=== PATIENT | male | born 1970 | race African-American/Black ===

== ENCOUNTER → 2017-01-20 | Day surgery (SDC) | payer OTHER ==
[~2017-01-20] VITALS: Ht 152.4 cm; Wt 77.1 kg
[~2017-01-20] MED LIST: BUPIVACAINE/EPINEPHRINE 0.5% PF 30 ML VIAL ONE; CHLORHEXIDINE GLUCONATE 2 % 1 PACK (2 CLOTHS) TOPICAL PRN; CINA30 PO; HEPARIN SODIUM - IV 10,000 UNITS/10 ML VIAL ONE; HYDR-3583 PO; INSULIN HUMAN REGULAR 1,000 UNITS/10 ML VIAL SQ PRN; LACTATED RINGER'S 1000 ML IV PRN; METOPROLOL TARTRATE 25 MG TAB PO PRN; PANT20 PO; POVIDONE IODINE 5% (ANTISEPSIS KIT) 4 APPLICATIONS EACH NARE PRN; SEVE800T PO; SODIUM CHLORID 0.9% 500 ML IV PRN; VANC1000P IV; WARF-20 PO; WARF-23 PO; XANA1TAB2 PO
[2017-01-20 10:00] VITALS: BP 105/59; PULSE 61; RESP 18; TEMP 98; O2SAT 98
[2017-01-20 10:15] LABS: BASOPHIL # 0.1 TH/MM3 (0-0.2); BASOPHIL % 1.4 % (0.0-2.0); EOSINOPHIL # 0.1 TH/MM3 (0-0.4); EOSINOPHIL % 1.3 % (0.0-4.0); HEMATOCRIT 50.9 % (39.0-51.0); LYMPH % 14.7 % (9.0-44.0); LYMPHOCYTE # 0.6 TH/MM3 (1.0-4.8); MEAN CELL VOLUME 96.5 FL (80.0-100.0); MEAN CORPUSCULAR HEMOGLOBIN 30.8 PG (27.0-34.0); MONO % 14.5 % (0.0-8.0); NEUT % 68.1 % (16.0-70.0); PLATELET COUNT 92 TH/MM3 (150-450); RED BLOOD COUNT 5.28 MIL/MM3 (4.50-5.90); WHITE BLOOD COUNT 4.4 TH/MM3 (4.0-11.0)
[2017-01-20 10:18] LABS: HEMO FLAGS AUTO DIFF
[2017-01-20 10:25] LABS: PROTHROMBIN TIME - PATIENT 22.6 SEC (9.8-11.6)
[2017-01-20 10:47] LABS: CORRECTED NUCLEATED RBC 1 /100 WBC (0-0); EOSINOPHILS 1 % (0-4); MYELOCYTES 1 % (0-0); POLYS (SEG NEUTROPHILS) 68 % (16-70); WBC DIFF SAMPLE 100
[2017-01-20 10:48] LABS: PLATELET ESTIMATE SMEAR LOW (NORMAL); PLATELET MORPHOLOGY NORMAL (NORMAL); SCAN/DIFF FINAL DIFF MANUAL
[2017-01-20 10:55] LABS: BICARBONATE 27.3 MEQ/L (21.0-32.0); POTASSIUM 4.1 MEQ/L (3.5-5.1)
--- NOTE | 2017-01-21 07:05 | EKG ---
Date Performed: 01/20/2017 Time Performed: 10:04:16 PTAGE: 46 years EKG: SINUS BRADYCARDIA BORDERLINE ECG Compared to PREVIOUS TRACING , the sinus rate is slower. PREVIOUS TRACIN07/07/2016 12.10 DOCTOR: Liam Rush Interpretating Date/Time 01/21/2017 07:04:42
== END | disposition home or self-care (01) ==
LOC: HSDC 09:14
PROVIDERS: ATTEND Surgery
DX: Z49.01 Encounter for fitting and adjustment of extracorporeal dialysis catheter (principal); Z53.8 Procedure and treatment not carried out for other reasons; R94.31 Abnormal electrocardiogram [ECG] [EKG]; Z79.01 Long term (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 of anticoagulants
CPT/HCPCS: 80048; 85007; 85027; 85610; 93005; 99211; J7040; G0463; J1642; J1644; J3010

== ENCOUNTER → 2017-02-08 | Day surgery (SDC) | payer OTHER ==
[~2017-02-08] VITALS: Ht 152.4 cm; Wt 77.0 kg
[~2017-02-08] MED LIST changes: +BUPIVACAINE HCL PF 0.5% 30 ML VIAL ONE; -BUPIVACAINE/EPINEPHRINE 0.5% PF 30 ML VIAL ONE; +DO NOT ADM ANY ANTICOAGULANT DRUGS PRN; +FAMOTIDINE 20 MG/2 ML VIAL ONE; +ONDANSETRON HCL 4 MG/2 ML VIAL IV PUSH ONE; +PHENYLEPH/NS 1000 MCG/10 ML SYR IV ONE; -POVIDONE IODINE 5% (ANTISEPSIS KIT) 4 APPLICATIONS EACH NARE PRN; +PROPOFOL 200 MG/20 ML AMP IV ONE; +PROTAMINE SULFATE 50 MG/5 ML VIAL ONE; +THROMBIN (TOPICAL) 20,000 UNIT SPRAY KIT ONE; +VANCOMYCIN HCL 1000 MG VIAL ONE; +ceFAZolin 1 GM ADDVANTAGE VIAL IV ONE; +ePHEDrine/NS 25 MG/5 ML SYR IV ONE; +fentaNYL CITRATE 250 MCG/5 ML AMP ONE
[2017-02-08 07:10] VITALS: BP_SYST 81; BP_SYST 89; BP_DIAS 57; BP_DIAS 58; PULSE 70; RESP 18; TEMP 97.7; O2SAT 92
[2017-02-08 07:32] LABS: AUTOMATED NEUTROPHIL # 3.3 TH/MM3 (1.8-7.7); BASOPHIL % 0.8 % (0.0-2.0); EOSINOPHIL # 0.1 TH/MM3 (0-0.4); EOSINOPHIL % 1.5 % (0.0-4.0); HEMATOCRIT 53.9 % (39.0-51.0); HEMO FLAGS DIFF FINAL; INTERNATIONAL NORMALIZED RATIO 1.2 RATIO; LYMPHOCYTE # 0.6 TH/MM3 (1.0-4.8); MEAN CELL VOLUME 95.4 FL (80.0-100.0); MEAN CORPUSCULAR HEMOGLOBIN 31.1 PG (27.0-34.0); MEAN CORPUSCULAR HGB CONC 32.6 % (32.0-36.0); MONO % 14.9 % (0.0-8.0); NEUT % 69.8 % (16.0-70.0); PLATELET COUNT 109 TH/MM3 (150-450); PROTHROMBIN TIME - PATIENT 13.3 SEC (9.8-11.6); RED BLOOD COUNT 5.66 MIL/MM3 (4.50-5.90); RED CELL DISTRIBUTION WIDTH 17.7 % (11.6-17.2); WHITE BLOOD COUNT 4.7 TH/MM3 (4.0-11.0)
[2017-02-08 07:50] LABS: BICARBONATE 23.4 MEQ/L (21.0-32.0); POTASSIUM 3.9 MEQ/L (3.5-5.1)
--- NOTE | 2017-02-08 08:24 | HHI.HP ---
History of Present Illness Chief Complaint: ESRD, need for HD access History of Present Illness 46 yo male with ESRD, currently on HD MWF via groin catheter, last HD yesterday. H/O L UE AVF, failed. Presents for new access Past/Family/Social History Past Medical History "hypercoagulable state" unclear etiology - on coumadin but stopped sev days ago and INR 1.3 ESRD HTN CVOD w/ CVA years ago Past Surgical History B LE amputations L UE access R forearm debridement - sequelae of "hypercoag" Social History HD MWF Family History no ESRD Home Medications Reported Medications Cinacalcet (Sensipar)30 Mg Tab30 Mg PO DAILY #30 TAB Ref 0 01/19/17 Warfarin 5 Mg Tab5 Mg PO DAILY #30 TAB Ref 0 12/29/16 Alprazolam (Xanax)1 Mg Tab1 Mg PO Q8H PRN (ANXIETY) Ref 0 12/29/16 Hydrocodone-Acetaminophen 10-325 mg Tab1 Tab PO Q4H PRN (PAIN) Ref 0 12/29/16 Pantoprazole (Protonix)20 Mg Tab20 Mg PO DAILY #30 TAB Ref 0 12/29/16 Sevelamer HCl (Renagel)800 Mg Tab1,600 Mg PO TID #180 TAB Ref 0 12/29/16 Coded Allergies: Iodine (Verified Allergy, Severe, blisters, 01/20/17) Morphine (Verified Allergy, Severe, Itching, 12/29/16) *MDRO Multi-Drug Resistant Organism (Verified Adverse Reaction, Unknown, ) MRSA (sputum) - 01/2008 MRSA PCR Screen NEGAVTIVE- 09/10/16 & 09/14/16 Cleared per Infection Control Review of Systems Constitutional: DENIES: Fever, Chills Cardiovascular: COMPLAINS OF: Dyspnea on Exertion, PND, DENIES: Chest pain Physical Exam Vitals/I&O Date Time Temp Pulse Resp B/P Pulse Ox O2 Delivery O2 Flow Rate FiO2 02/08/17 07:10 97.7 70 18 81/58 92 89/57 Neuro: alert, oriented, no focal deficits HEENT: NC/AT Neck: no JVD Heart: reg rate Lungs: clear and unlabored Vascular: palpable R UE pulses Extremities: R UE forearm skin contracture, but AC ok and no decreased ROM Laboratory Tests Test 02/08/17 07:10 White Blood Count 4.7 Red Blood Count 5.66 Hemoglobin 17.6 Hematocrit 53.9 Mean Corpuscular Volume 95.4 Mean Corpuscular Hemoglobin 31.1 Mean Corpuscular Hemoglobin 32.6 Concent Red Cell Distribution Width 17.7 Platelet Count 109 Mean Platelet Volume 9.0 Neutrophils (%) (Auto) 69.8 Lymphocytes (%) (Auto) 13.0 Monocytes (%) (Auto) 14.9 Eosinophils (%) (Auto) 1.5 Basophils (%) (Auto) 0.8 Neutrophils # (Auto) 3.3 Lymphocytes # (Auto) 0.6 Monocytes # (Auto) 0.7 Eosinophils # (Auto) 0.1 Basophils # (Auto) 0.0 CBC Comment DIFF FINAL Differential Comment Prothrombin Time 13.3 Prothromb Time International 1.2 Ratio Sodium Level 133 Potassium Level 3.9 Chloride Level 97 Carbon Dioxide Level 23.4 Anion Gap 13 Blood Urea Nitrogen 63 Creatinine 15.81 Estimat Glomerular Filtration 4 Rate Random Glucose 79 Calcium Level 9.1 Blood Type B POSITIVE Antibody Screen NEGATIVE Blood Bank Comment Assessment and Plan Plan R BC AVF D/C post AVF today Discharge Planning plan outpatient surgery and RTC 2 weeks for fistula check Chon Plascencia MD February 08, 2017 08:24
--- NOTE | 2017-02-08 10:11 | HHI.PR ---
Immediate Post Op Note Procedure Date: February 08, 2017 Pre Op Diagnosis: ESRD, need for HD Access Post Op Diagnosis: ESRD, need for HD access Surgeon: Chon Plascencia Dining Chair Seat Cushion Trimmer(s): none Procedure: RIGHT brachiocephalic AVF Findings: 3mm vein, 3mm artery decent audible thrill at end of case Additional Information: + Doppler signal at wrist Complications: none apparent Specimen(s) removed: none Estimated blood loss: 20mL Anesthesia: LMA Drains: None Fluids: 300mL IVF Patient to: PACU Date/Time of Procedure: SEE SURGICAL CARE RECORD Chon Plascencia MD February 08, 2017 10:11
[2017-02-08 12:25] VITALS: BP 77/54; PULSE 69; RESP 16; TEMP 96.2; O2SAT 98
--- NOTE | 2017-02-08 12:38 | MP ---
cc: LATHA PLASCENCIA MD DATE OF SURGERY 02/08/2017 PREOPERATIVE DIAGNOSIS End-stage renal disease, needs dialysis access POSTOPERATIVE DIAGNOSIS End-stage renal disease, needs dialysis access PROCEDURE Right brachiocephalic arteriovenous fistula ATTENDING SURGEON Latha Plascencia MD ANESTHESIA General INDICATIONS Mr. Mercado is an 46 year-old gentleman who has end-stage renal disease currently dialyzing through a left groin catheter. He has a failed left upper extremity access and known central vein occlusion. Preoperative imaging assessed he had adequate right cephalic vein and a discussion was held with the patient and his belt worker and we agreed that a right brachiocephalic autogenous access was the next best option. DESCRIPTION OF PROCEDURE Informed consent was obtained from the patient. He was taken to the operating room, placed supine on the operating room table. An appropriate time out was taken to ensure the patient's operative site and planned procedure. A gram of Ancef was initiated prior to the skin incision and will be discontinued after a single preoperative dose. Everyone in the room agreed with time out and we proceeded. His right arm was prepped and draped and the antecubital incision was made with a 10 blade, carried down through the subcutaneous tissue with electrocautery. The cephalic vein was identified and dissected free for several centimeters. The brachial artery was identified over the medial aspect of the incision. The patient was systemically heparinized with 3000 units of IV heparin. The distal aspect of the cephalic vein was clamped with a right angle, the vein was transected and the distal end was oversewn with 3-0 silk. A Perez bulldog was placed in the proximal aspect of the vein. Proximal and distal control of the brachial artery was obtained with Profunda clamps and a longitudinal arteriotomy was made with an 11 blade, extended with Bancroft scissors, the vein was spatulated and sewn end-to-side with running 6-0 Prolene suture. At the completion, it was flushed, noted to be hemostatic. There was a nice thrill in the fistula and a Doppler signal in the wrist. Heparin was reversed with Protamine. The wound was infiltrated with Marcaine and closed with 2-0 Polysorb, 3-0 Polysorb and 4-0 Monocryl. The sponge and needle counts were correct at the end of the case. I was present and scrubbed for the entire procedure. MD DEVEN Bentley/RUDOLPH /10:15 AM /12:30 PM
== END | disposition home or self-care (01) ==
LOC: HSDC 06:08
PROVIDERS: ATTEND Surgery
DX: I12.0 Hypertensive chronic kidney disease with stage 5 chronic kidney disease or end stage renal disease (principal); N18.6 End stage renal disease; Z86.73 Personal history of transient ischemic attack (TIA), and cerebral infarction without residual deficits; Z79.01 Long term (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 of anticoagulants; Z01.818 Encounter for other preprocedural examination
CPT/HCPCS: 01844; 36821; 80048; 85025; 85610; 86850; 86900; 86901; J0690; J1644; J2370; J2405; J2720; J3010; J3370

== ENCOUNTER 2017-03-16 15:19 | Inpatient (IN) | payer MEDICAID, OTHER ==
[~2017-03-16] VITALS: Ht 134.6 cm; Wt 76.0 kg
[~2017-03-16 15:19] MED LIST changes: -BUPIVACAINE HCL PF 0.5% 30 ML VIAL ONE; -CHLORHEXIDINE GLUCONATE 2 % 1 PACK (2 CLOTHS) TOPICAL PRN; -DO NOT ADM ANY ANTICOAGULANT DRUGS PRN; -FAMOTIDINE 20 MG/2 ML VIAL ONE; -HEPARIN SODIUM - IV 10,000 UNITS/10 ML VIAL ONE; -INSULIN HUMAN REGULAR 1,000 UNITS/10 ML VIAL SQ PRN; -LACTATED RINGER'S 1000 ML IV PRN; -METOPROLOL TARTRATE 25 MG TAB PO PRN; -ONDANSETRON HCL 4 MG/2 ML VIAL IV PUSH ONE; -PHENYLEPH/NS 1000 MCG/10 ML SYR IV ONE; -PROPOFOL 200 MG/20 ML AMP IV ONE; -PROTAMINE SULFATE 50 MG/5 ML VIAL ONE; -SODIUM CHLORID 0.9% 500 ML IV PRN; -THROMBIN (TOPICAL) 20,000 UNIT SPRAY KIT ONE; -VANC1000P IV; -VANCOMYCIN HCL 1000 MG VIAL ONE; -WARF-20 PO; -ceFAZolin 1 GM ADDVANTAGE VIAL IV ONE; -ePHEDrine/NS 25 MG/5 ML SYR IV ONE; -fentaNYL CITRATE 250 MCG/5 ML AMP ONE
[2017-03-16 15:30] VITALS: BP 96/56; PULSE 64; RESP 18; TEMP 97.4; O2SAT 96
[2017-03-16] MEDS ORDERED: ONDANSETRON HCL 4 MG/2 ML VIAL IVP PRN (16:00)
[2017-03-16] MEDS ORDERED: RESP: ALBUTEROL 2.5 MG/IPRATROPIUM 0.5 MG NEB (PRN) NEB (16:00)
[2017-03-16] MEDS ORDERED: NALOXONE HCL 0.4 MG/ML AMP IV PRN (16:00)
[2017-03-16] MEDS ORDERED: ENALAPRILAT 1.25 MG/ML VIAL IV PUSH PRN (16:00)
[2017-03-16] MEDS ORDERED: ACETAMINOPHEN 325 MG TAB PO PRN ×2 (16:00)
[2017-03-16] MEDS ORDERED: SODIUM CHLORIDE 0.9% FLUSH 10 ML FLUSH IV FLUSH PRN (16:00)
--- NOTE | 2017-03-16 16:01 | HHI.HP ---
[facility] Primary Care Physician TONYA Salazar Admission Diagnosis Diagnoses: (1) Cellulitis of arm, right (2) End-stage renal disease on hemodialysis (3) Hypotension Chief Complaint: Cellulitis at right AV fistula site Travel History International Travel<30 Days: No Contact w/Intl Traveler <30 Da: No Traveled to Known Affected Are: No History of Present Illness 26-year-old male with a history of end-stage renal disease on hemodialysis was seen by his doctor for evaluation of right AV fistula sites redness, pus and possible cellulitis and abscess. Patient is status post right AV fistula placement 02/08/17, and states over the past 7-10 days he is noticed an opening At the site with some pus production however denies any febrile episode or chills. Review of Systems Except as stated in HPI: all other systems reviewed are Neg Past Family Social History Past Medical History End-stage renal disease on HD Questionable lupus erythematosus Coronary disease History of hypotension Questionable COPD/asthma Clotting disorder Past Surgical History Bilateral BKA Cardiac stent Dialysis graft Digit resection of the right hand Reported Medications Coumadin 4 mg daily Allergies: Coded Allergies: Iodine (Verified Allergy, Severe, blisters, 01/20/17) Morphine (Verified Allergy, Severe, Itching, 12/29/16) *MDRO Multi-Drug Resistant Organism (Verified Adverse Reaction, Unknown, ) MRSA (sputum) - 01/2008 MRSA PCR Screen NEGAVTIVE- 09/10/16 & 09/14/16 Cleared per Infection Control Family History Hypertension Social History Remote tobacco use 10 years ago Denies EtOH or illicit drug use Physical Exam Physical Exam GENERAL: This is a well-nourished, well-developed patient, in no apparent distress. SKIN: No rashes, ecchymoses or lesions. Cool and dry. right AFV site with some erythema, pus HEAD: Atraumatic. Normocephalic. No temporal or scalp tenderness. EYES: Pupils equal round and reactive. Extraocular motions intact. No scleral icterus. No injection or drainage. ENT: Nose without bleeding, purulent drainage or septal hematoma. Throat without erythema, tonsillar hypertrophy or exudate. Uvula midline. Airway patent. NECK: Trachea midline. No JVD or lymphadenopathy. Supple, nontender, no meningeal signs. CARDIOVASCULAR: Regular rate and rhythm without murmurs, gallops, or rubs. RESPIRATORY: Clear to auscultation. Breath sounds equal bilaterally. No wheezes , rales, or rhonchi. GASTROINTESTINAL: Abdomen soft, non-tender, nondistended. No hepato-splenomegaly , or palpable masses. No guarding. MUSCULOSKELETAL: . B -BKAs NEUROLOGICAL: Awake and alert. Cranial nerves II through XII intact. Motor and sensory grossly within normal limits. Five out of 5 muscle strength in all muscle groups. Normal speech. Assessment and Plan Problem List: (1) Cellulitis of arm, right ICD Code: L03.113 Status: Acute (2) AVF (arteriovenous fistula) ICD Code: I77.0 Status: Acute (3) Hypotension ICD Code: I95.9 Status: Acute (4) End-stage renal disease on hemodialysis ICD Code: N18.6 Status: Acute Assessment and Plan 46-year-old man with Cellulitis at AV fistula site Check blood culture 2, wound culture, CBC and BMP as well as CRP and SED Start vancomycin IV 1 g every 24 as well as Fortaz 1gm IV Q24hr Consult infectious disease specialist. Case was discussed with Dr. Patel Consult vascular surgery Check chest x-ray End-stage renal disease on hemodialysis Consult nephrology, Dr. Juan Manuel Merlos Resume Renvela and monitor Bun/Cr History of bilateral lower extremities DVT Resume Coumadin and monitor INR/PT History of hypotension Consider midodrine DVT prophylaxis: Coumadin Code Status Full code Discussed Condition With Patient Physician Certification 2 Midnight Certification Type: Admission for Inpatient Services Order for Inpatient Services The services are ordered in accordance with Medicare regulations or non- Medicare payer requirements, as applicable. In the case of services not specified as inpatient-only, they are appropriately provided as inpatient services in accordance with the 2-midnight benchmark. Estimated LOS (days): 2 days is the estimated time the patient will need to remain in the hospital, assuming treatment plan goals are met and no additional complications. Post-Hospital Plan: Not yet determined Devyn Kennedy MD Mar 16, 2017 16:01
[2017-03-16] MEDS ORDERED: WARF-20 PO (16:12)
[2017-03-16] MEDS ORDERED: Vancomycin Consult Pharmacy 1 EA OTHER SCH (16:30)
[2017-03-16] MEDS ORDERED: VANCOMYCIN INJ 1,000 MG in SODIUM CHLOR 0.9% 250 ML INJ 250 ML IV ONE (18:00)
[2017-03-16] MEDS ORDERED: cefTAZidime INJ 1,000 MG in SODIUM CHLORIDE 0.9% INJ 100 ML IV SCH (18:00)
[2017-03-16 18:24] LABS: AUTOMATED NEUTROPHIL # 3.6 TH/MM3 (1.8-7.7); BASOPHIL % 0.5 % (0.0-2.0); EOSINOPHIL # 0.1 TH/MM3 (0-0.4); EOSINOPHIL % 2.2 % (0.0-4.0); HEMATOCRIT 50.9 % (39.0-51.0); LYMPH % 9.8 % (9.0-44.0); LYMPHOCYTE # 0.4 TH/MM3 (1.0-4.8); MEAN CELL VOLUME 96.4 FL (80.0-100.0); MEAN CORPUSCULAR HEMOGLOBIN 32.2 PG (27.0-34.0); MEAN CORPUSCULAR HGB CONC 33.4 % (32.0-36.0); MONO % 7.8 % (0.0-8.0); NEUT % 79.7 % (16.0-70.0); PLATELET COUNT 87 TH/MM3 (150-450); RED BLOOD COUNT 5.27 MIL/MM3 (4.50-5.90); RED CELL DISTRIBUTION WIDTH 18.2 % (11.6-17.2); WHITE BLOOD COUNT 4.5 TH/MM3 (4.0-11.0)
[2017-03-16 18:30] LABS: HEMO FLAGS AUTO DIFF
--- NOTE | 2017-03-16 18:38 | RADRPT ---
EXAM DATE/TIME: 03/16/2017 17:51 [facility] COMPARISON: CHEST SINGLE AP, September 10, 2016, 13:04. INDICATIONS : Short of breath. MEDICAL HISTORY : Myocardial infarction. SURGICAL HISTORY : None. ENCOUNTER: Subsequent ACUITY: 2 days PAIN SCORE: 9/10 LOCATION: Right Elbow area. FINDINGS: A single view of the chest demonstrates the lungs to be symmetrically aerated without evidence of mas s, new confluent infiltrate or effusion. Chronic scarring and interstitial changes remain at the lung bases. The central venous catheter remains with the tip projected over the right atrium. The cardiom ediastinal contours are unremarkable. Osseous structures are intact. CONCLUSION: Stable appearance with chronic scarring and interstitial change. Amador Escobar MD on March 16, 2017 at 18:36 Board Certified Radiologist. This report was verified electronically.
[2017-03-16 18:47] LABS: BICARBONATE 31.5 MEQ/L (21.0-32.0); POTASSIUM 3.9 MEQ/L (3.5-5.1)
[2017-03-16 19:00] LABS: INTERNATIONAL NORMALIZED RATIO 1.3 RATIO; PROTHROMBIN TIME - PATIENT 14.3 SEC (9.8-11.6)
[2017-03-16 20:00] VITALS: BP 100/56; PULSE 73; RESP 18; TEMP 97.3; O2SAT 93
[2017-03-16] MEDS: SODIUM CHLORIDE 0.9% FLUSH 10 ML FLUSH IV FLUSH SCH (20:23)
[2017-03-16 20:57] LABS: PLATELET ESTIMATE SMEAR LOW (NORMAL); PLATELET MORPHOLOGY ENLARGED (NORMAL); SCAN/DIFF AUTO DIFF CONFIRMED
[2017-03-17] VITALS: BP 98/62; PULSE 69; RESP 16; TEMP 97.6; O2SAT 95
[2017-03-17 04:00] VITALS: BP 94/58; PULSE 63; RESP 16; TEMP 97.5; O2SAT 95
--- NOTE | 2017-03-17 07:23 | PD.VS.PN ---
Subjective Subjective/Hospital Course Pt adm with RIGHT arm wound No problems overnight. Objective Vitals/I&O Date Time Temp Pulse Resp B/P Pulse Ox O2 Delivery O2 Flow Rate FiO2 03/17/17 04:00 97.5 63 16 94/58 95 03/17/17 00:00 97.6 69 16 98/62 95 03/16/17 20:00 97.3 73 18 100/56 93 03/16/17 15:30 97.4 64 18 96/56 96 Physical Exam R UE with wound dehiscence and no palpable graft beneath. Laboratory Laboratory Tests Test 03/16/17 18:11 White Blood Count 4.5 Red Blood Count 5.27 Hemoglobin 17.0 Hematocrit 50.9 Mean Corpuscular Volume 96.4 Mean Corpuscular Hemoglobin 32.2 Mean Corpuscular Hemoglobin 33.4 Concent Red Cell Distribution Width 18.2 Platelet Count 87 Mean Platelet Volume 8.9 Neutrophils (%) (Auto) 79.7 Lymphocytes (%) (Auto) 9.8 Monocytes (%) (Auto) 7.8 Eosinophils (%) (Auto) 2.2 Basophils (%) (Auto) 0.5 Neutrophils # (Auto) 3.6 Lymphocytes # (Auto) 0.4 Monocytes # (Auto) 0.4 Eosinophils # (Auto) 0.1 Basophils # (Auto) 0.0 CBC Comment AUTO DIFF Differential Comment AUTO DIFF CONFIRMED Platelet Estimate LOW Platelet Morphology Comment ENLARGED Erythrocyte Sedimentation Rate 1 Prothrombin Time 14.3 Prothromb Time International 1.3 Ratio Sodium Level 138 Potassium Level 3.9 Chloride Level 99 Carbon Dioxide Level 31.5 Anion Gap 8 Blood Urea Nitrogen 48 Creatinine 12.01 Estimat Glomerular Filtration 6 Rate Random Glucose 81 Lactic Acid Level 1.9 Calcium Level 8.8 C-Reactive Protein 0.95 Date/Time Procedure Status Source Growth 03/16/17 18:05 Aerobic Blood Culture Received Blood Peripheral Pending 03/16/17 18:05 Anaerobic Blood Culture Received Blood Peripheral Pending 03/16/17 16:45 Gram Stain Received Wound Hand Pending 03/16/17 16:45 Wound Culture Received Wound Hand Pending Imaging Last 48 hours Impressions Chest X-Ray 03/16/17 0000 Signed Impressions: Service Date/Time: Thursday, March 16, 2017 17:51 - CONCLUSION: Stable appearance with chronic scarring and interstitial change. Amador Escobar MD Assessment and Plan Plan Will ask wound care to place vac, wicking into wound. continue antibiotics Chon Plascencia MD Mar 17, 2017 07:23
[2017-03-17 07:57] LABS: INTERNATIONAL NORMALIZED RATIO 1.3 RATIO; PROTHROMBIN TIME - PATIENT 15.1 SEC (9.8-11.6)
[2017-03-17 08:00] VITALS: BP 91/66; PULSE 93; RESP 20; TEMP 97.2; O2SAT 93
[2017-03-17 08:17] LABS: ALKALINE PHOSPHATASE 63 U/L (45-117); ALT (GPT) 15 U/L (12-78); ANION GAP 13 MEQ/L (5-15); AST (GOT) 16 U/L (15-37); BICARBONATE 23.6 MEQ/L (21.0-32.0); BLOOD UREA NITROGEN 64 MG/DL (7-18); CHLORIDE 100 MEQ/L (98-107); GLOMERULAR FILTRATION RATE 5 ML/MIN (>89); POTASSIUM 4.7 MEQ/L (3.5-5.1); SODIUM (NA) 137 MEQ/L (136-145); TOTAL BILIRUBIN ADULT 0.3 MG/DL (0.2-1.0)
[2017-03-17] MEDS ORDERED: WARFARIN SOD 4 MG TAB PO SCH (09:00)
--- NOTE | 2017-03-17 09:26 | HHI.PR ---
Subjective Remarks Follow-up open wound/cellulitis at site of right AV graft 03/17/17-patient seen and examined, currently afebrile and denies any pain to the right AV sites wound. No acute event overnight Objective Vitals Vital Signs Date Time Temp Pulse Resp B/P Pulse Ox O2 Delivery O2 Flow Rate FiO2 03/17/17 08:00 97.2 93 20 91/66 93 03/17/17 04:00 97.5 63 16 94/58 95 03/17/17 00:00 97.6 69 16 98/62 95 03/16/17 20:00 97.3 73 18 100/56 93 03/16/17 15:30 97.4 64 18 96/56 96 I/O 03/16/17 03/16/17 03/16/17 03/17/17 03/17/17 03/17/17 07:00 15:00 23:00 07:00 15:00 23:00 Intake Total 240 ml Output Total 0 ml Balance 240 ml Intake Oral 240 ml Output Urine Total 0 ml # Bowel Movements 0 Result Diagram: 03/16/17 1811 03/17/17 0641 Imaging Last Impressions Chest X-Ray 03/16/17 0000 Signed Impressions: Service Date/Time: Thursday, March 16, 2017 17:51 - CONCLUSION: Stable appearance with chronic scarring and interstitial change. Amador Escobar MD Objective Remarks GENERAL: NAD SKIN: Warm and dry. HEAD: Normocephalic. EYES: No scleral icterus. No injection or drainage. NECK: Supple, trachea midline. No JVD or lymphadenopathy. CARDIOVASCULAR: Regular rate and rhythm without murmurs, gallops, or rubs. RESPIRATORY: Breath sounds equal bilaterally. No accessory muscle use. GASTROINTESTINAL: Abdomen soft, non-tender, nondistended. MUSCULOSKELETAL: B -BKAs BACK: Nontender without obvious deformity. No CVA tenderness. A/P Problem List: (1) Cellulitis of arm, right ICD Code: L03.113 Status: Acute (2) AVF (arteriovenous fistula) ICD Code: I77.0 Status: Acute (3) Hypotension ICD Code: I95.9 Status: Acute (4) End-stage renal disease on hemodialysis ICD Code: N18.6 Status: Acute Assessment and Plan 46-year-old man with Cellulitis at AV fistula site s/p blood culture 2, wound culture,with elevated CRP and normal SED Currently on vancomycin IV 1 g every 24 as well as Fortaz 1gm IV Q24hr. Likely will continue antibiotics during hemodialysis Consult infectious disease specialist. Case was discussed with Dr. Patel 03/16/17 Appreciate input from vascular surgery End-stage renal disease on hemodialysis Consult nephrology, Dr. Juan Manuel Merlos Continue Renvela and monitor Bun/Cr History of bilateral lower extremities DVT Continue Coumadin and monitor INR/PT History of hypotension Consider midodrine DVT prophylaxis: Coumadin Devyn Kennedy MD Mar 17, 2017 09:26
[2017-03-17] MEDS: PANTOPRAZOLE SOD 20 MG DELAYED RELEASE TAB PO SCH (09:48)
[2017-03-17] MEDS: SEVELAMER CARBONATE 800 MG TAB PO SCH ×3 (09:48→17:45)
[2017-03-17] MEDS: SODIUM CHLORIDE 0.9% FLUSH 10 ML FLUSH IV FLUSH SCH ×2 (09:49→21:43)
[2017-03-17] MEDS: ACETAMINOPHEN/HYDROcodone 325 MG/5 MG TAB PO PRN ×2 (09:52→18:30)
--- NOTE | 2017-03-17 10:14 | MB ---
cc: OLAF BEATTY MD DATE OF CONSULTATION: 03/16/2017 REASON FOR CONSULTATION: End-stage renal disease on hemodialysis for management. HISTORY OF PRESENT ILLNESS This is a 46-year-old male with past medical history of hypertension, peripheral vascular disease with bilateral below-knee amputation, he was sent to the hospital because of possible infection and cellulitis in the right arm at the site of the AV fistula. I was called to see the patient for the management of hemodialysis. The patient has been following with Dr. Merlos and he is on vacation and I am covering for him he has the patient has been on hemodialysis Tuesday, Tuesday and Tuesday. He has this right arm AV fistula surgery done by Dr. Plascencia on February 08 and last 7-10 days the patient noted that there is some discharge yellowish and there is some pain at the site of surgery. He has no history of fever, chills. He went for his regular dialysis and they are he was told to go to the hospital his blood pressure was on the lower side on arrival here his blood pressure was 96/56. The patient denies any headache or dizziness. She has mild pain at the site of the fistula surgery which is better now. The patient has been on hemodialysis of more than 10 years. PAST MEDICAL HISTORY 1. Hypertension 2. Chronic anemia 3. Chronic obstructive pulmonary disease 4. End-stage renal disease on hemodialysis three times per week. 5. Ischemic heart disease 6. Peripheral vascular disease. PAST SURGICAL HISTORY 1. Bilateral below-knee amputation 2. cardiac catheterization with stent placement 3. Right arm AV fistula surgery. 4. Dissection of the right hand digit. REVIEW OF SYSTEMS Denies any history of fever. No headache, dizziness or blurring of vision. The patient has pain and discharged at the site of the AV fistula surgery and associated with pain. There is no shortness of breath. No chest pain, palpitations. No vomiting. No abdominal pain. No history of diarrhea. SOCIAL HISTORY The patient is the patient has past history of smoking. Ten years ago. There is no history of alcoholism Family history is positive for hypertension. ALLERGIES IODINE MORPHINE MEDICATIONS Currently he is on following medications 1. Protonix 20 mg once a day. 2. Coumadin 4 mg daily. 3. Ceftazidime 1 gram q. 24-hour. 4. Renvela 1.6 grams t.i.d. 5. Zofran as needed. 6. Vancomycin one dose was given. 7. [place] as needed. PHYSICAL EXAMINATION: IN GENERAL: On examination the patient is awake, alert. He is not in acute distress. VITAL SIGNS: Blood pressure is 96.56, temperature 97.4, oxygen saturation 96%. HEAD, EYES, EARS, NOSE, AND THROAT: Equally reacting to light. Nonicteric. Conjunctivae normal. NECK: Supple. JVD is not elevated. LUNGS: The patient has bilateral good air entry with occasional wheezing. HEART: Sinus regular rhythm. ABDOMEN: The abdomen is soft and there is no tenderness. EXTREMITIES: He has bilateral below-knee amputation on the right arm has AV fistula at the basilic vein and is covered with a dressing. There is a good bruit. There is no signs of ST in the right hand. INVESTIGATIONS: WBC count is 4.5, hemoglobin 17.0, platelet count of 87, neutrophils 79.7%, sodium 38. Potassium 3.9, chloride 99, bicarb 31.5, BUN 48, creatinine 12.0. C-reactive protein 0.95. Calcium 8.8, glucose 81. Lactic acid is 1.9, INR is 1.3, blood cultures pending and wound culture pending. IMAGING STUDIES The patient has chest x-ray done which shows chronic scarring interstitial changes. ASSESSMENT/PLAN 1. Right arm cellulitis with infection at the site of fistula 2. Rule-out sepsis 3. Hypotension. 4. End-stage renal disease on hemodialysis. 5. History of ischemic heart disease 6. Peripheral vascular disease The patient was given one dose of vancomycin and he is also on ceftazidime IV. We will continue the vancomycin with dialysis and follow the culture results. His next dialysis due is on Tuesday. Currently he is afebrile. Blood pressure is borderline. He is not on any antihypertensive medications. The patient is on warfarin and the INR is 1.3. I will arrange for hemodialysis on Tuesday if he still here the patient he is admitted and I will follow the patient since Dr. Merlos is on vacation. Thank you for the consultation. MD CRISTOFER Goldberg/laura /9:44 PM /9:57 AM
[2017-03-17 12:00] VITALS: BP 121/53; PULSE 64; RESP 20; TEMP 97.5; O2SAT 93
--- NOTE | 2017-03-17 14:31 | PD.WCN.NOT ---
Wound Consult Description: Patient seen on for wound to R upper extremity possible wound VAC placement. Spoke with KIRK Hogan prior to entering patient's room. RN informed jingle writer that patient is not leaving any dressings in place to RUE.Patient noted with no dressing in place to RUE upon entering patient's room. Wound to RUE is small measuring ~0.5x~1x~1 cm in depth.Wound is not VAC appropriate.Wound unable to be completely visualized due to depth and small size of wound opening. Tissue that is visible appears to be red non granulation tissue.Wound has moderate sero-sanguinous drainage. Cleansed wound with normal saline.Loosely packed wound with plain 1/4 inch packing stip and covered with dry 4x4 gauze pads, and ABD pad. Secured dressing with rolled gauze and tape. Communicated with: Spoke with KIRK keys, and Stephie CASTANEDA for Vascular surgery regarding recommendations and findings. Stephie CASTANEDA for Vascular surgery is agreement with recommendations and will write orders. Recommendation: Recommend to cleanse wound to RUE with normal saline and apply plain 1/4 inch packing strip loosely packed into wound bed. Cover wound with Calcium Alginate AG (Maxorb AG) just over wound bed. Secure dressing with dry 4x4 gauze, ABD pad , rolled gauze and tape or stockinette. Please change dressing daily. Radha Torres CRN Mar 17, 2017 14:31
[2017-03-17] MEDS: diphenhydrAMINE HCL 25 MG CAP PO PRN ×2 (15:01→21:43)
[2017-03-17] MEDS ORDERED: SODIUM CHLOR 0.9% 1000 ML INJ 1,000 ML IV PRN ×3 (15:18)
--- NOTE | 2017-03-17 15:18 | HHI.NPPN ---
Subjective General Problems: Anemia, Edema, Hypertension Renal Failure: End Stage Renal Disease History of Present Illness 46-year-old male with past medical history of hypertension, peripheral vascular disease with bilateral below-knee amputation, he was sent to the hospital because of possible infection and cellulitis in the right arm at the site of the AV fistula. I was called to see the patient for the management of hemodialysis. The patient has been following with Dr. Merlos and he is on vacation and I am covering for him he has the patient has been on hemodialysis Tuesday, Tuesday and Tuesday. Additional Remarks Patient is alert, pain in Rt. arm is better, no dizziness. Review of Systems General Constitutional: Fatigue Cardiovascular Cardiac: ODEN Objective Data Data 03/16/17 03/17/17 19:00 07:00 Intake Total 240 ml Output Total 0 ml Balance 240 ml Intake Oral 240 ml Output Urine Total 0 ml # Bowel Movements 0 Vital Signs Date Time Temp Pulse Resp B/P Pulse Ox O2 Delivery O2 Flow Rate FiO2 03/17/17 12:00 97.5 64 20 121/53 93 03/17/17 08:00 97.2 93 20 91/66 93 03/17/17 04:00 97.5 63 16 94/58 95 03/17/17 00:00 97.6 69 16 98/62 95 03/16/17 20:00 97.3 73 18 100/56 93 03/16/17 15:30 97.4 64 18 96/56 96 -: 03/16/17 1811 03/17/17 0641 Microbiology 03/16/17 Aerobic Blood Culture, Received Pending 03/16/17 Anaerobic Blood Culture, Received Pending 03/16/17 Gram Stain - Final, Resulted 03/16/17 Wound Culture - Preliminary, Resulted Group D Enterococcus 03/16/17 Aerobic Blood Culture - Preliminary, Resulted NO GROWTH IN 1 DAY 03/16/17 Anaerobic Blood Culture - Preliminary, Resulted NO GROWTH IN 1 DAY 03/16/17 Aerobic Blood Culture - Preliminary, Resulted NO GROWTH IN 1 DAY 03/16/17 Anaerobic Blood Culture - Preliminary, Resulted NO GROWTH IN 1 DAY Physical Exam General Appearance: No Acute Distress, Comfortable Eyes Eye Exam: Pupils Equal Throat Throat Exam: Oral Mucosa [place] & Moist Neck Neck Exam: Neck Supple Pulmonary Resp Exam: Breath Sounds Equal, No Distress, Rhonchi, Decreased Bases Cardiology CV Exam: Regular, Normal Sinus Rhythm Gastrointestinal/Abdomen GI Exam: Soft, Non-Tender, Bowel Sounds Present Extremeties Extremities Exam: Trace Edema (Rt. arm has dressing at AVF site, good Bruit.) Neurologic Neuro Exam: Alert, Awake, Oriented Psychiatric Psych Exam: Appropriate Responses Assessment/Plan Plan Patient was seen by vascular surgery. Has Enterococcus in the culture. Continue Vanco. with HD. HD is due in AM. Follow the blood cultures. Angel Joseph MD Mar 17, 2017 15:18
[2017-03-17] MEDS ORDERED: ACETAMINOPHEN 325 MG TAB PO PRN (15:30)
[2017-03-17] MEDS ORDERED: ONDANSETRON HCL 4 MG/2 ML VIAL IV PRN (15:30)
[2017-03-17] MEDS ORDERED: cloNIDine HCL 0.1 MG TAB PO PRN (15:30)
[2017-03-17] MEDS ORDERED: HEPARIN SODIUM - IV 10,000 UNITS/10 ML VIAL IVF PRN (15:30)
[2017-03-17] MEDS ORDERED: MANNITOL 12.5 GM/50 ML VIAL IV PRN (15:30)
[2017-03-17] MEDS ORDERED: GELATIN 12 MM/7 MM FOAM TOP PRN (15:30)
[2017-03-17] MEDS ORDERED: SODIUM CHLORIDE 0.9% FLUSH 10 ML FLUSH IV FLUSH PRN (15:30)
[2017-03-17] MEDS ORDERED: ALBUMIN HUMAN 25% 25 GM/100 ML BAGP IV PRN (15:30)
[2017-03-17] MEDS ORDERED: NITROGLYCERIN 0.4 MG SL 25 TABS/BTL SL PRN (15:30)
[2017-03-17] MEDS ORDERED: diphenhydrAMINE HCL 25 MG CAP PO PRN (15:30)
[2017-03-17 16:00] VITALS: BP 101/57; PULSE 62; RESP 20; TEMP 97.4; O2SAT 97
--- NOTE | 2017-03-17 16:11 | PD.ID.CON ---
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 It has not improved He has a serious access problemm and his only access is L femoral Permacath He is also c/o poor healing Denies fever, chills Clx is growing enterococci Review of Systems Except as stated in HPI: all other systems reviewed are Neg Past Family Social History Allergies: Coded Allergies: Iodine (Verified Allergy, Severe, blisters, 01/20/17) Morphine (Verified Allergy, Severe, Itching, 12/29/16) *MDRO Multi-Drug Resistant Organism (Verified Adverse Reaction, Unknown, ) MRSA (sputum) - 01/2008 MRSA PCR Screen NEGAVTIVE- 09/10/16 & 09/14/16 Cleared per Infection Control Past Medical History ESRD on HD SLE CAD HTN Severe PVD 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 Hx of DVT Anemia Hyperparathyroidism of renal origin Previous sepsis d/t catheter line infection Past Surgical History Bilat BKA 2 fingers amputated Multiple dialysis grafts PCI Active Ordered Medications Medications where reviewed in EMR Antibiotics Include: vanco with HD ceftazidime Family History HTN Social History quit tobacco 12 yrs ago No ETOh no illicit drugs Physical Exam Vital Signs Vital Signs Date Time Temp Pulse Resp B/P Pulse Ox O2 Delivery O2 Flow Rate FiO2 03/17/17 12:00 97.5 64 20 121/53 93 03/17/17 08:00 97.2 93 20 91/66 93 03/17/17 04:00 97.5 63 16 94/58 95 03/17/17 00:00 97.6 69 16 98/62 95 03/16/17 20:00 97.3 73 18 100/56 93 Physical Exam CONSTITUTIONAL/GENERAL: This is an adequately nourished patient, in no apparent distress. TUBES/LINES/DRAINS: L groin Permacath i place wo skin changes around it SKIN: No jaundice, rashes, or lesions. Skin temperature appropriate. Not diaphoretic. HEAD: Atraumatic. Normocephalic. EYES: Pupils equal and round and reactive. Extraocular motions intact. No scleral icterus. No injection or drainage. Fundi not examined. ENT: Hearing grossly normal. Nose without bleeding or purulent drainage. oral mucosae without visible erythema, exudates, masses, or lesions. NECK: Trachea midline. Supple, nontender. CARDIOVASCULAR: Regular rate and rhythm without murmurs, gallops, or rubs. No JVD. Peripheral pulses symmetric. RESPIRATORY/CHEST: Symmetric, unlabored respirations. Clear to auscultation. Breath sounds equal bilaterally. No wheezes, rales, or rhonchi. GASTROINTESTINAL: Abdomen soft, non-tender, nondistended. No hepato-splenomegaly , or palpable masses. No guarding. Bowel sounds present. MUSCULOSKELETAL: Extremities without clubbing, cyanosis, Sp ampuitation R 2nd-3 rd fingertips SP b/l BKA - well healed RUE: - edema , erythema, some induration present around AV fistula no thrill wound is partially opned, packed, small ampunt of serosang dc present LYMPHATICS: No palpable cervical or supraclavicular adenopathy. NEUROLOGICAL: Awake and alert. Motor and sensory grossly within normal limits. Follows commands. Clear speech. Moves all extremities. PSYCHIATRIC: No obvious anxiety/depression. no apparent hallucinations or other psychotic thought process. Laboratory Laboratory Tests Test 03/16/17 03/17/17 18:11 06:41 White Blood Count 4.5 Red Blood Count 5.27 Hemoglobin 17.0 Hematocrit 50.9 Mean Corpuscular Volume 96.4 Mean Corpuscular Hemoglobin 32.2 Mean Corpuscular Hemoglobin 33.4 Concent Red Cell Distribution Width 18.2 Platelet Count 87 Mean Platelet Volume 8.9 Neutrophils (%) (Auto) 79.7 Lymphocytes (%) (Auto) 9.8 Monocytes (%) (Auto) 7.8 Eosinophils (%) (Auto) 2.2 Basophils (%) (Auto) 0.5 Neutrophils # (Auto) 3.6 Lymphocytes # (Auto) 0.4 Monocytes # (Auto) 0.4 Eosinophils # (Auto) 0.1 Basophils # (Auto) 0.0 CBC Comment AUTO DIFF Differential Comment AUTO DIFF CONFIRMED Platelet Estimate LOW Platelet Morphology Comment ENLARGED Erythrocyte Sedimentation Rate 1 Prothrombin Time 14.3 15.1 Prothromb Time International 1.3 1.3 Ratio Sodium Level 138 137 Potassium Level 3.9 4.7 Chloride Level 99 100 Carbon Dioxide Level 31.5 23.6 Anion Gap 8 13 Blood Urea Nitrogen 48 64 Creatinine 12.01 13.19 Estimat Glomerular Filtration 6 5 Rate Random Glucose 81 65 Lactic Acid Level 1.9 Calcium Level 8.8 8.5 C-Reactive Protein 0.95 Total Bilirubin 0.3 Aspartate Amino Transf 16 (AST/SGOT) Alanine Aminotransferase 15 (ALT/SGPT) Alkaline Phosphatase 63 Total Protein 7.9 Albumin 3.7 Date/Time Procedure Status Source Growth 03/16/17 18:11 Aerobic Blood Culture - Preliminary Resulted Blood Peripheral NO GROWTH IN 1 DAY 03/16/17 18:11 Anaerobic Blood Culture - Preliminary Resulted Blood Peripheral NO GROWTH IN 1 DAY 03/16/17 16:45 Gram Stain - Final Resulted Wound Hand 03/16/17 16:45 Wound Culture - Preliminary Resulted Group D Enterococcus 03/16/17 15:57 Aerobic Blood Culture Received Blood Peripheral Pending 03/16/17 15:57 Anaerobic Blood Culture Received Blood Peripheral Pending Result Diagram: 03/16/17 1811 03/17/17 0641 Imaging Last Impressions Chest X-Ray 03/16/17 0000 Signed Impressions: Service Date/Time: Thursday, March 16, 2017 17:51 - CONCLUSION: Stable appearance with chronic scarring and interstitial change. Amador Escobar MD Assessment and Plan Assessment and Plan sp recent [place] AV fistual creation Enterococcal infection of fistula wound - BC are neg @ 1 day ESRD/HD Access problems - cont vancomycin - dc ceftaz - fu clx untll final Manuela Patel MD Mar 17, 2017 16:11
[2017-03-17] MEDS: WARFARIN SOD 4 MG TAB PO SCH (17:45)
[2017-03-18] VITALS: BP 104/54; PULSE 62; RESP 20; TEMP 98.4; O2SAT 94
[2017-03-18 04:00] VITALS: BP 99/55; PULSE 62; RESP 18; TEMP 97.6; O2SAT 95
--- NOTE | 2017-03-18 07:08 | PD.VS.PN ---
Subjective Subjective/Hospital Course Pt adm with RIGHT arm wound No problems overnight. Appreciate wound care input Objective Vitals/I&O Date Time Temp Pulse Resp B/P Pulse Ox O2 Delivery O2 Flow Rate FiO2 03/18/17 04:00 97.6 62 18 99/55 95 03/18/17 00:00 98.4 62 20 104/54 94 03/17/17 16:00 97.4 62 20 101/57 97 03/17/17 12:00 97.5 64 20 121/53 93 03/17/17 08:00 97.2 93 20 91/66 93 03/18/17 03/18/17 03/18/17 07:00 15:00 23:00 Intake Total 240 ml Output Total 0 ml Balance 240 ml Physical Exam R UE incision without erythema; + induration packed with strips minimal drainage Laboratory Date/Time Procedure Status Source Growth 03/16/17 18:11 Aerobic Blood Culture - Preliminary Resulted Blood Peripheral NO GROWTH IN 1 DAY 03/16/17 18:11 Anaerobic Blood Culture - Preliminary Resulted Blood Peripheral NO GROWTH IN 1 DAY 03/16/17 16:45 Gram Stain - Final Resulted Wound Hand 03/16/17 16:45 Wound Culture - Preliminary Resulted Group D Enterococcus 03/16/17 15:57 Aerobic Blood Culture Received Blood Peripheral Pending 03/16/17 15:57 Anaerobic Blood Culture Received Blood Peripheral Pending Assessment and Plan Plan continue wound care anticipate home 2-3 days unless wound worsens HD today Chon Plascencia MD Mar 18, 2017 07:08
[2017-03-18 08:00] VITALS: BP 102/60; PULSE 66; RESP 16; TEMP 97.6; O2SAT 95
--- NOTE | 2017-03-18 08:27 | HHI.PR ---
Subjective Remarks Follow-up open wound/cellulitis at site of right AV graft 03/17/17-patient seen and examined, currently afebrile and denies any pain to the right AV sites wound. No acute event overnight 03/18/17-patient seen and examined, no acute event overnight. Denies any pain around right open wound Objective Vitals Vital Signs Date Time Temp Pulse Resp B/P Pulse Ox O2 Delivery O2 Flow Rate FiO2 03/18/17 04:00 97.6 62 18 99/55 95 03/18/17 00:00 98.4 62 20 104/54 94 03/17/17 16:00 97.4 62 20 101/57 97 03/17/17 12:00 97.5 64 20 121/53 93 I/O 03/17/17 03/17/17 03/17/17 03/18/17 03/18/17 03/18/17 06:59 14:59 22:59 06:59 14:59 22:59 Intake Total 240 ml 660 ml 240 ml Output Total 0 ml 0 ml Balance 240 ml 660 ml 240 ml Intake Oral 240 ml 660 ml 240 ml Output Urine Total 0 ml 0 ml # Voids 0 # Bowel Movements 0 0 0 Result Diagram: 03/16/17 1811 03/17/17 0641 Objective Remarks GENERAL: NAD SKIN: Warm and dry. HEAD: Normocephalic. EYES: No scleral icterus. No injection or drainage. NECK: Supple, trachea midline. No JVD or lymphadenopathy. CARDIOVASCULAR: Regular rate and rhythm without murmurs, gallops, or rubs. RESPIRATORY: Breath sounds equal bilaterally. No accessory muscle use. GASTROINTESTINAL: Abdomen soft, non-tender, nondistended. MUSCULOSKELETAL: B -BKAs BACK: Nontender without obvious deformity. No CVA tenderness. A/P Problem List: (1) Cellulitis of arm, right ICD Code: L03.113 Status: Acute (2) AVF (arteriovenous fistula) ICD Code: I77.0 Status: Acute (3) Hypotension ICD Code: I95.9 Status: Acute (4) End-stage renal disease on hemodialysis ICD Code: N18.6 Status: Acute Assessment and Plan 46-year-old man with Cellulitis at AV fistula site s/p blood culture 2, wound culture,with elevated CRP and normal SED. Wound culture positive for group D enterococcus Currently on vancomycin IV and s/p Fortaz 1gm IV Q24hr. Likely will continue antibiotic during hemodialysis today Appreciate input from infectious disease specialist. Appreciate input from vascular surgery End-stage renal disease on hemodialysis Appreciate input from nephrology, plan for hemodialysis today Tuesday Continue Renvela and monitor Bun/Cr History of bilateral lower extremities DVT Continue Coumadin and monitor INR/PT History of hypotension Consider midodrine DVT prophylaxis: Coumadin Devyn Kennedy MD Mar 18, 2017 08:27
[2017-03-18] MEDS: SEVELAMER CARBONATE 800 MG TAB PO SCH ×3 (09:00→17:06)
[2017-03-18] MEDS: SODIUM CHLORIDE 0.9% FLUSH 10 ML FLUSH IV FLUSH SCH ×2 (09:00→21:31)
[2017-03-18 09:34] LABS: INTERNATIONAL NORMALIZED RATIO 1.3 RATIO; PROTHROMBIN TIME - PATIENT 14.4 SEC (9.8-11.6)
--- NOTE | 2017-03-18 11:17 | HHI.NPPN ---
Subjective General Problems: Anemia, Edema, Hypertension Renal Failure: End Stage Renal Disease History of Present Illness 46-year-old male with past medical history of hypertension, peripheral vascular disease with bilateral below-knee amputation, he was sent to the hospital because of possible infection and cellulitis in the right arm at the site of the AV fistula. I was called to see the patient for the management of hemodialysis. The patient has been following with Dr. Merlos and he is on vacation and I am covering for him he has the patient has been on hemodialysis Tuesday, Tuesday and Tuesday. Additional Remarks Patient is alert, pain in Rt. arm is better, seen during HD. Review of Systems General Constitutional: Fatigue Cardiovascular Cardiac: ODEN Objective Data Data 03/17/17 03/18/17 19:00 07:00 Intake Total 660 ml 240 ml Output Total 0 ml Balance 660 ml 240 ml Intake Oral 660 ml 240 ml Output Urine Total 0 ml # Voids 0 # Bowel Movements 0 0 Vital Signs Date Time Temp Pulse Resp B/P Pulse Ox O2 Delivery O2 Flow Rate FiO2 03/18/17 08:00 97.6 66 16 102/60 95 03/18/17 04:00 97.6 62 18 99/55 95 03/18/17 00:00 98.4 62 20 104/54 94 03/17/17 16:00 97.4 62 20 101/57 97 03/17/17 12:00 97.5 64 20 121/53 93 -: 03/16/17 1811 03/17/17 0641 Physical Exam General Appearance: No Acute Distress, Comfortable Eyes Eye Exam: Pupils Equal Throat Throat Exam: Oral Mucosa [place] & Moist Neck Neck Exam: Neck Supple Pulmonary Resp Exam: Breath Sounds Equal, No Distress, Rhonchi, Decreased Bases Cardiology CV Exam: Regular, Normal Sinus Rhythm Gastrointestinal/Abdomen GI Exam: Soft, Non-Tender, Bowel Sounds Present Extremeties Extremities Exam: Trace Edema (Rt. arm has dressing at AVF site, good Bruit.) Neurologic Neuro Exam: Alert, Awake, Oriented Psychiatric Psych Exam: Appropriate Responses Assessment/Plan Plan Patient was seen by vascular surgery. Has Enterococcus in the culture. Continue Vanco. with HD. HD now, removing 3 liters. BP stable so far. Vascular follow up noted. Angel Joseph MD Mar 18, 2017 11:17
[2017-03-18] MEDS: HEPARIN SODIUM - IV 10,000 UNITS/10 ML VIAL PRN (12:10)
[2017-03-18] MEDS: VANCOMYCIN INJ 1,000 MG in SODIUM CHLOR 0.9% 250 ML INJ 250 ML IV SCH (12:10)
[2017-03-18] MEDS: GENTAMICIN SULFATE (DIALYSIS USE ONLY) 20 MG/2 ML VIAL IV PRN (12:10)
[2017-03-18] MEDS: PANTOPRAZOLE SOD 20 MG DELAYED RELEASE TAB PO SCH (12:40)
[2017-03-18 12:45] VITALS: BP 98/55; PULSE 69; RESP 16; TEMP 97.3; O2SAT 96
[2017-03-18] MEDS: diphenhydrAMINE HCL 25 MG CAP PO PRN ×2 (13:58→21:31)
[2017-03-18] MEDS: ACETAMINOPHEN/HYDROcodone 325 MG/5 MG TAB PO PRN ×2 (13:58→23:23)
--- NOTE | 2017-03-18 14:01 | HHI.IDPN ---
Subjective Subjective Remarks no fever mild pain in the R forearm sp HD Antibiotics vancomycin c HD Past Medical History lupus ESRD Allergies: Coded Allergies: Iodine (Verified Allergy, Severe, blisters, 01/20/17) Morphine (Verified Allergy, Severe, Itching, 12/29/16) *MDRO Multi-Drug Resistant Organism (Verified Adverse Reaction, Unknown, ) MRSA (sputum) - 01/2008 MRSA PCR Screen NEGAVTIVE- 09/10/16 & 09/14/16 Cleared per Infection Control Objective . Vital Signs Date Time Temp Pulse Resp B/P Pulse Ox O2 Delivery O2 Flow Rate FiO2 03/18/17 12:45 97.3 69 16 98/55 96 03/18/17 08:00 97.6 66 16 102/60 95 03/18/17 04:00 97.6 62 18 99/55 95 03/18/17 00:00 98.4 62 20 104/54 94 03/17/17 16:00 97.4 62 20 101/57 97 03/17/17 03/17/17 03/18/17 15:00 23:00 07:00 Intake Total 660 ml 240 ml Output Total 0 ml Balance 660 ml 240 ml Intake Oral 660 ml 240 ml Output Urine Total 0 ml # Voids 0 # Bowel Movements 0 0 . Laboratory Tests Test 03/16/17 18:11 White Blood Count 4.5 TH/MM3 Red Blood Count 5.27 MIL/MM3 Hemoglobin 17.0 GM/DL Hematocrit 50.9 % Mean Corpuscular Volume 96.4 FL Mean Corpuscular Hemoglobin 32.2 PG Mean Corpuscular Hemoglobin 33.4 % Concent Red Cell Distribution Width 18.2 % Platelet Count 87 TH/MM3 Mean Platelet Volume 8.9 FL Neutrophils (%) (Auto) 79.7 % Lymphocytes (%) (Auto) 9.8 % Monocytes (%) (Auto) 7.8 % Eosinophils (%) (Auto) 2.2 % Basophils (%) (Auto) 0.5 % Neutrophils # (Auto) 3.6 TH/MM3 Lymphocytes # (Auto) 0.4 TH/MM3 Monocytes # (Auto) 0.4 TH/MM3 Eosinophils # (Auto) 0.1 TH/MM3 Basophils # (Auto) 0.0 TH/MM3 CBC Comment AUTO DIFF Differential Comment AUTO DIFF CONFIRMED Platelet Estimate LOW Platelet Morphology Comment ENLARGED Erythrocyte Sedimentation Rate 1 mm/hr Laboratory Tests Test 03/16/17 03/17/17 18:11 06:41 Sodium Level 138 MEQ/L 137 MEQ/L Potassium Level 3.9 MEQ/L 4.7 MEQ/L Chloride Level 99 MEQ/L 100 MEQ/L Carbon Dioxide Level 31.5 MEQ/L 23.6 MEQ/L Anion Gap 8 MEQ/L 13 MEQ/L Blood Urea Nitrogen 48 MG/DL 64 MG/DL Creatinine 12.01 MG/DL 13.19 MG/DL Estimat Glomerular Filtration 6 ML/MIN 5 ML/MIN Rate Random Glucose 81 MG/DL 65 MG/DL Lactic Acid Level 1.9 mmol/L Calcium Level 8.8 MG/DL 8.5 MG/DL C-Reactive Protein 0.95 MG/DL Total Bilirubin 0.3 MG/DL Aspartate Amino Transf 16 U/L (AST/SGOT) Alanine Aminotransferase 15 U/L (ALT/SGPT) Alkaline Phosphatase 63 U/L Total Protein 7.9 GM/DL Albumin 3.7 GM/DL Microbiology Date/Time Procedure Status Source Growth 03/16/17 15:57 Aerobic Blood Culture Received Blood Peripheral Pending 03/16/17 15:57 Anaerobic Blood Culture Received Blood Peripheral Pending 03/16/17 16:45 Gram Stain - Final Resulted Wound Hand 03/16/17 16:45 Wound Culture - Preliminary Resulted Group D Enterococcus 03/16/17 18:05 Aerobic Blood Culture - Preliminary Resulted Blood Peripheral NO GROWTH IN 2 DAYS 03/16/17 18:05 Anaerobic Blood Culture - Preliminary Resulted Blood Peripheral NO GROWTH IN 2 DAYS 03/16/17 18:11 Aerobic Blood Culture - Preliminary Resulted Blood Peripheral NO GROWTH IN 2 DAYS 03/16/17 18:11 Anaerobic Blood Culture - Preliminary Resulted Blood Peripheral NO GROWTH IN 2 DAYS Imaging Last Impressions Chest X-Ray 03/16/17 0000 Signed Impressions: Service Date/Time: Thursday, March 16, 2017 17:51 - CONCLUSION: Stable appearance with chronic scarring and interstitial change. Amador Escobar MD Physical Exam CONSTITUTIONAL/GENERAL: This is an adequately nourished patient, in no apparent distress. TUBES/LINES/DRAINS: L groin Permacath i place wo skin changes around it SKIN: No jaundice, rashes, or lesions. S CARDIOVASCULAR: Regular rate and rhythm without murmurs, gallops, or rubs. No JVD. Peripheral pulses symmetric. RESPIRATORY/CHEST: Symmetric, unlabored respirations. Clear to auscultation. Breath sounds equal bilaterally. No wheezes, rales, or rhonchi. GASTROINTESTINAL: Abdomen soft, non-tender, nondistended. No hepato-splenomegaly , or palpable masses. No guarding. Bowel sounds present. MUSCULOSKELETAL: Extremities without clubbing, cyanosis, Sp ampuitation R 2nd-3 rd fingertips SP b/l BKA - well healed RUE: - improved edema , resolved erythema, some induration present around AV fistula, not tender no thrill wound is partially opened, packed, no drainage NEUROLOGICAL: Awake and alert. Motor and sensory grossly within normal limits. Follows commands. Clear speech. Moves all extremities. PSYCHIATRIC: No obvious anxiety/depression. no apparent hallucinations or other psychotic thought process. Assessment & Plan Remarks sp recent [place] AV fistual creation Enterococcal infection of fistula wound - BC are neg @ 1 day ESRD/HD Access problems - cont vancomycin - [facility] HD - fu clx untll final - final rec's per sensitivity report Manuela Patel MD Mar 18, 2017 14:01
[2017-03-18 16:00] VITALS: BP 107/54; PULSE 74; RESP 17; TEMP 97.4; O2SAT 94
[2017-03-18] MEDS ORDERED: WARFARIN SOD 2 MG TAB PO SCH (16:00)
[2017-03-18] MEDS ORDERED: [UNRECOGNIZED DRUG - REMARK] SCH (17:00)
[2017-03-18] MEDS: WARFARIN SOD 4 MG TAB PO SCH (17:06)
[2017-03-18 20:00] VITALS: BP 93/57; PULSE 66; RESP 16; TEMP 97.5; O2SAT 95
[2017-03-19] VITALS: BP 104/57; PULSE 76; RESP 16; TEMP 97.8; O2SAT 93
[2017-03-19 04:00] VITALS: BP 93/55; PULSE 62; RESP 16; TEMP 97.7; O2SAT 95
[2017-03-19 08:00] VITALS: BP 100/51; PULSE 60; RESP 18; TEMP 98; O2SAT 94
[2017-03-19] MEDS: SODIUM CHLORIDE 0.9% FLUSH 10 ML FLUSH IV FLUSH SCH ×2 (08:31→21:00)
[2017-03-19] MEDS: PANTOPRAZOLE SOD 20 MG DELAYED RELEASE TAB PO SCH (08:31)
[2017-03-19] MEDS: SEVELAMER CARBONATE 800 MG TAB PO SCH ×3 (08:31→16:43)
[2017-03-19 09:30] LABS: INTERNATIONAL NORMALIZED RATIO 1.5 RATIO; PROTHROMBIN TIME - PATIENT 16.6 SEC (9.8-11.6)
--- NOTE | 2017-03-19 11:47 | HHI.PR ---
Subjective Remarks Follow-up open wound/cellulitis at site of right AV graft 03/17/17-patient seen and examined, currently afebrile and denies any pain to the right AV sites wound. No acute event overnight 03/18/17-patient seen and examined, no acute event overnight. Denies any pain around right open wound 03/19/17-patient seen and examined, hemodialysis yesterday. Afebrile. Objective Vitals Vital Signs Date Time Temp Pulse Resp B/P Pulse Ox O2 Delivery O2 Flow Rate FiO2 03/19/17 08:00 98.0 60 18 100/51 94 03/19/17 04:00 97.7 62 16 93/55 95 03/19/17 00:00 97.8 76 16 104/57 93 03/18/17 20:00 97.5 66 16 93/57 95 03/18/17 16:00 97.4 74 17 107/54 94 03/18/17 12:45 97.3 69 16 98/55 96 I/O 03/18/17 03/18/17 03/18/17 03/19/17 03/19/17 03/19/17 07:00 15:00 23:00 07:00 15:00 23:00 Intake Total 240 ml 480 ml 50 ml 0 ml Output Total 0 ml 3000 ml Balance 240 ml -2520 ml 50 ml 0 ml Intake Oral 240 ml 480 ml 50 ml 0 ml IV Total 0 ml Output Urine Total 0 ml Hemodialysis 3000 ml # Voids 0 0 0 # Bowel Movements 0 0 1 0 Result Diagram: 03/16/17 1811 03/17/17 0641 Objective Remarks GENERAL: NAD SKIN: Warm and dry. Dressing over right AVF wound HEAD: Normocephalic. EYES: No scleral icterus. No injection or drainage. NECK: Supple, trachea midline. No JVD or lymphadenopathy. CARDIOVASCULAR: Regular rate and rhythm without murmurs, gallops, or rubs. RESPIRATORY: Breath sounds equal bilaterally. No accessory muscle use. GASTROINTESTINAL: Abdomen soft, non-tender, nondistended. MUSCULOSKELETAL: B -BKAs BACK: Nontender without obvious deformity. No CVA tenderness. A/P Problem List: (1) Cellulitis of arm, right ICD Code: L03.113 Status: Acute (2) AVF (arteriovenous fistula) ICD Code: I77.0 Status: Acute (3) Hypotension ICD Code: I95.9 Status: Acute (4) End-stage renal disease on hemodialysis ICD Code: N18.6 Status: Acute Assessment and Plan 46-year-old man with Cellulitis at AV fistula site s/p blood culture 2, wound culture,with elevated CRP and normal SED. Wound culture positive for group D enterococcus Currently on vancomycin IV and s/p Fortaz 1gm IV Q24hr. continue with vancomycin with HD pending final culture report Appreciate input from infectious disease specialist. Appreciate input from vascular surgery End-stage renal disease on hemodialysis Appreciate input from nephrology, Continue Renvela and monitor Bun/Cr History of bilateral lower extremities DVT Continue Coumadin and monitor INR/PT History of hypotension Consider midodrine DVT prophylaxis: Coumadin Devyn Kennedy MD Mar 19, 2017 11:47
[2017-03-19 12:00] VITALS: BP 90/54; PULSE 83; RESP 18; TEMP 97.5; O2SAT 94
--- NOTE | 2017-03-19 13:20 | HHI.NPPN ---
Subjective General Problems: Anemia, Edema, Hypertension Renal Failure: End Stage Renal Disease History of Present Illness 46-year-old male with past medical history of hypertension, peripheral vascular disease with bilateral below-knee amputation, he was sent to the hospital because of possible infection and cellulitis in the right arm at the site of the AV fistula. I was called to see the patient for the management of hemodialysis. The patient has been following with Dr. Merlos and he is on vacation and I am covering for him he has the patient has been on hemodialysis Tuesday, Tuesday and Tuesday. Additional Remarks Patient is alert, pain in Rt. arm is better, no complain. Review of Systems General Constitutional: Fatigue Cardiovascular Cardiac: ODEN Objective Data Data 03/18/17 03/19/17 19:00 07:00 Intake Total 480 ml 50 ml Output Total 3000 ml Balance -2520 ml 50 ml Intake Oral 480 ml 50 ml IV Total 0 ml Hemodialysis 3000 ml # Voids 0 0 # Bowel Movements 0 1 Vital Signs Date Time Temp Pulse Resp B/P Pulse Ox O2 Delivery O2 Flow Rate FiO2 03/19/17 08:00 98.0 60 18 100/51 94 03/19/17 04:00 97.7 62 16 93/55 95 03/19/17 00:00 97.8 76 16 104/57 93 03/18/17 20:00 97.5 66 16 93/57 95 03/18/17 16:00 97.4 74 17 107/54 94 -: 03/16/17 1811 03/17/17 0641 Physical Exam General Appearance: No Acute Distress, Comfortable Eyes Eye Exam: Pupils Equal Throat Throat Exam: Oral Mucosa [place] & Moist Neck Neck Exam: Neck Supple Pulmonary Resp Exam: Breath Sounds Equal, No Distress, Rhonchi, Decreased Bases Cardiology CV Exam: Regular, Normal Sinus Rhythm Gastrointestinal/Abdomen GI Exam: Soft, Non-Tender, Bowel Sounds Present Extremeties Extremities Exam: Trace Edema (Rt. arm has dressing at AVF site, good Bruit.) Neurologic Neuro Exam: Alert, Awake, Oriented Psychiatric Psych Exam: Appropriate Responses Assessment/Plan Plan Patient was seen by vascular surgery. Has Enterococcus in the culture. Continue Vanco. with HD. HD done yesterday and tolerated well. BP is stable. Possible D/C on Tuesday. Dr. Merlos will follow from tomorrow. Angel Joseph MD Mar 19, 2017 13:20
[2017-03-19] MEDS: diphenhydrAMINE HCL 25 MG CAP PO PRN ×2 (13:37→21:06)
--- NOTE | 2017-03-19 13:58 | HHI.IDPN ---
Subjective Subjective Remarks no fever mild pain in the R forearm sp HD FRi Antibiotics vancomycin c HD Past Medical History lupus ESRD Allergies: Coded Allergies: Iodine (Verified Allergy, Severe, blisters, 01/20/17) Morphine (Verified Allergy, Severe, Itching, 12/29/16) *MDRO Multi-Drug Resistant Organism (Verified Adverse Reaction, Unknown, ) MRSA (sputum) - 01/2008 MRSA PCR Screen NEGAVTIVE- 09/10/16 & 09/14/16 Cleared per Infection Control Objective . Vital Signs Date Time Temp Pulse Resp B/P Pulse Ox O2 Delivery O2 Flow Rate FiO2 03/19/17 12:00 97.5 83 18 90/54 94 03/19/17 08:00 98.0 60 18 100/51 94 03/19/17 04:00 97.7 62 16 93/55 95 03/19/17 00:00 97.8 76 16 104/57 93 03/18/17 20:00 97.5 66 16 93/57 95 03/18/17 16:00 97.4 74 17 107/54 94 03/18/17 03/18/17 03/19/17 15:00 23:00 07:00 Intake Total 480 ml 50 ml 0 ml Output Total 3000 ml Balance -2520 ml 50 ml 0 ml Intake Oral 480 ml 50 ml 0 ml IV Total 0 ml Hemodialysis 3000 ml # Voids 0 0 0 # Bowel Movements 0 1 0 . Microbiology Date/Time Procedure Status Source Growth 03/16/17 15:57 Aerobic Blood Culture Received Blood Peripheral Pending 03/16/17 15:57 Anaerobic Blood Culture Received Blood Peripheral Pending 03/16/17 16:45 Gram Stain - Final Complete Wound Hand 03/16/17 16:45 Wound Culture - Final Complete Enterococcus Faecalis 03/16/17 18:05 Aerobic Blood Culture - Preliminary Resulted Blood Peripheral NO GROWTH IN 3 DAYS 03/16/17 18:05 Anaerobic Blood Culture - Preliminary Resulted Blood Peripheral NO GROWTH IN 3 DAYS 03/16/17 18:11 Aerobic Blood Culture - Preliminary Resulted Blood Peripheral NO GROWTH IN 3 DAYS 03/16/17 18:11 Anaerobic Blood Culture - Preliminary Resulted Blood Peripheral NO GROWTH IN 3 DAYS Imaging Last Impressions Chest X-Ray 03/16/17 0000 Signed Impressions: Service Date/Time: Thursday, March 16, 2017 17:51 - CONCLUSION: Stable appearance with chronic scarring and interstitial change. Amador Escobar MD Physical Exam CONSTITUTIONAL/GENERAL: This is an adequately nourished patient, in no apparent distress. TUBES/LINES/DRAINS: L groin Permacath i place wo skin changes around it SKIN: No jaundice, rashes, or lesions. S RESPIRATORY/CHEST: Symmetric, unlabored respirations. MUSCULOSKELETAL: Extremities without clubbing, cyanosis, Sp ampuitation R 2nd-3 rd fingertips SP b/l BKA - well healed RUE: - some residual edema , resolved erythema, some induration present around AV fistula, not tender no thrill wound is partially opened, seems smaller, barely any drainage on dressing NEUROLOGICAL: Awake and alert. Motor and sensory grossly within normal limits. Follows commands. Clear speech. Moves all extremities. PSYCHIATRIC: No obvious anxiety/depression. no apparent hallucinations or other psychotic thought process. Assessment & Plan Remarks sp recent [place] AV fistual creation Enterococcal infection of fistula wound - BC are neg @ 3 days - wound clx with lynn S enterococci ESRD/HD Access problems - cont vancomycin - fu bl clx untill final - will dc on tx with vanco c HD dw Dr Jake salazar RN Manuela Patel MD Mar 19, 2017 13:58
[2017-03-19 16:00] VITALS: BP 100/54; PULSE 66; RESP 18; TEMP 97.6; O2SAT 93
[2017-03-19] MEDS: WARFARIN SOD 5 MG TAB PO SCH (16:42)
[2017-03-19] MEDS: ACETAMINOPHEN/HYDROcodone 325 MG/5 MG TAB PO PRN (18:44)
[2017-03-19 20:00] VITALS: BP_SYST 110; BP_SYST 95; BP_DIAS 52; BP_DIAS 74; PULSE 115; PULSE 68; RESP 18; TEMP 97.7; TEMP 98.2; O2SAT 96; O2SAT 97
[2017-03-20] VITALS: BP 102/56; PULSE 58; RESP 18; TEMP 97.8; O2SAT 95
[2017-03-20 04:00] VITALS: BP 92/53; PULSE 67; RESP 17; TEMP 97.8; O2SAT 95
[2017-03-20 07:34] LABS: INTERNATIONAL NORMALIZED RATIO 1.6 RATIO; PROTHROMBIN TIME - PATIENT 17.5 SEC (9.8-11.6)
[2017-03-20 08:00] VITALS: BP 102/70; PULSE 63; RESP 18; TEMP 97.5; O2SAT 94
--- NOTE | 2017-03-20 09:02 | HHI.PR ---
Subjective Remarks Follow-up open wound/cellulitis at site of right AV graft 03/17/17-patient seen and examined, currently afebrile and denies any pain to the right AV sites wound. No acute event overnight 03/18/17-patient seen and examined, no acute event overnight. Denies any pain around right open wound 03/19/17-patient seen and examined, hemodialysis yesterday. Afebrile. 03/20/17-patient seen and examined, stable and afebrile. He Is wondering when he can be discharged home. Blood culture negative to date 3 days Objective Vitals Vital Signs Date Time Temp Pulse Resp B/P Pulse Ox O2 Delivery O2 Flow Rate FiO2 03/20/17 04:00 97.8 67 17 92/53 95 03/20/17 00:00 97.8 58 18 102/56 95 03/19/17 20:00 Room Air 03/19/17 20:00 97.7 68 18 95/52 96 03/19/17 16:00 97.6 66 18 100/54 93 03/19/17 12:00 97.5 83 18 90/54 94 I/O 03/19/17 03/19/17 03/19/17 03/20/17 03/20/17 03/20/17 07:00 15:00 23:00 07:00 15:00 23:00 Intake Total 0 ml 1200 ml 360 ml 0 ml Output Total 0 ml Balance 0 ml 1200 ml 360 ml 0 ml Intake Oral 0 ml 1200 ml 360 ml IV Total 0 ml 0 ml Output Urine Total 0 ml # Voids 0 1 # Bowel Movements 0 1 1 Result Diagram: 03/16/17 1811 03/17/17 0641 Objective Remarks GENERAL: NAD SKIN: Warm and dry. Dressing over right AVF wound HEAD: Normocephalic. EYES: No scleral icterus. No injection or drainage. NECK: Supple, trachea midline. No JVD or lymphadenopathy. CARDIOVASCULAR: Regular rate and rhythm without murmurs, gallops, or rubs. RESPIRATORY: Breath sounds equal bilaterally. No accessory muscle use. GASTROINTESTINAL: Abdomen soft, non-tender, nondistended. MUSCULOSKELETAL: B -BKAs BACK: Nontender without obvious deformity. No CVA tenderness. A/P Problem List: (1) Cellulitis of arm, right ICD Code: L03.113 Status: Acute (2) AVF (arteriovenous fistula) ICD Code: I77.0 Status: Acute (3) Hypotension ICD Code: I95.9 Status: Acute (4) End-stage renal disease on hemodialysis ICD Code: N18.6 Status: Acute Assessment and Plan 46-year-old man with Cellulitis at AV fistula site Blood culture NTD x 3 days and would have to be negative 5 days prior to discharge. Wound culture positive for group D enterococcus Currently on vancomycin IV and s/p Fortaz 1gm IV Q24hr. continue with vancomycin with HD pending final culture report Appreciate input from infectious disease specialist. Appreciate input from vascular surgery End-stage renal disease on hemodialysis Appreciate input from nephrology, Continue Renvela and monitor Bun/Cr History of bilateral lower extremities DVT Continue Coumadin and monitor INR/PT History of hypotension Consider midodrine DVT prophylaxis: Coumadin Devyn Kennedy MD Mar 20, 2017 09:02
[2017-03-20] MEDS: PANTOPRAZOLE SOD 20 MG DELAYED RELEASE TAB PO SCH (09:11)
[2017-03-20] MEDS: SODIUM CHLORIDE 0.9% FLUSH 10 ML FLUSH IV FLUSH SCH ×2 (09:11→19:54)
[2017-03-20] MEDS: SEVELAMER CARBONATE 800 MG TAB PO SCH ×3 (09:11→17:28)
--- NOTE | 2017-03-20 09:46 | HHI.PR ---
Addendum to Inpatient Note Additional Information Pt is OK to be discharged home with 6 weeks of vancomycin Manuela Daigle MD Mar 20, 2017 09:46
--- NOTE | 2017-03-20 09:49 | HHI.FF ---
Infusion Therapy Location of Infusion Therapy: Dialysis Center Patient Information Patient Weight 74.5 kg Diagnosis: Diagnosis AV fistula infection Coded Allergies: Iodine (Verified Allergy, Severe, blisters, 01/20/17) Morphine (Verified Allergy, Severe, Itching, 12/29/16) *MDRO Multi-Drug Resistant Organism (Verified Adverse Reaction, Unknown, ) MRSA (sputum) - 01/2008 MRSA PCR Screen NEGAVTIVE- 09/10/16 & 09/14/16 Cleared per Infection Control Administer Medication Vancomycin 1 gram IV q 48 hours w/Hemodialysis M,W,F Start Treatment: Mar 21, 2017 Stop Treatment: Apr 27, 2017 Additional Information Venous access: Tunneled Catheter Additional Instructions [x] Peripheral flush and dressing changes per protocol [x] Implanted port and central airline ticket agent: * Implanted port: 10 ml Normal Saline followed by 5 ml Heparin 100 units/ml Heparin flush after each use and monthly to maintain. [] May leave port accessed during therapy. [] May leave peripheral site accessed for duration of therapy. [x] If patient has SOB or respiratory distress, check oxygen saturation. If less than 90% or clinical signs of respiratory distress, administer oxygen at 2 L/min. via nasal cannula and notify physician. [x] Anaphylaxis/Reaction orders: * Stop infusion. * Keep IV line open with saline flush. * Notify physician. * Monitor vital signs every 15 minutes until symptoms resolve. * Check Oxygen saturation; Oxygen at 2 L/min. via nasal cannula if less than 90% or clinical signs of respiratory distress. * Administer diphenhydramine (Benadryl) 25 mg IV STAT, (unless patient has received as pre-med). May repeat once, if necessary. * Solu-Cortef 250 mg IVP over 30-60 seconds, use 100 mg vials for each dissolution. * Epinephrine (1mg/1 ml) 0.3 mg subcutaneously or IVP now with any signs of respiratory distress. * Check with physician for new additional pre-med orders if patient is re- challenged or re-treated. [x] May remove PICC line when treatment complete, after confirming with Physician. [x] If the patient is admitted to the hospital, the ED, or transferred via [facility] , complete transfer form including medication reconciliation order sheet. Laboratory Tests Weekly Labs: CBC w/diff, Vancomycin Trough (every Tuesday) Manuela Patel MD Mar 20, 2017 09:49
[2017-03-20] MEDS ORDERED: VANC1000P IV (09:53)
[2017-03-20 12:00] VITALS: BP 100/59; PULSE 61; RESP 18; TEMP 97.4; O2SAT 96
--- NOTE | 2017-03-20 12:05 | PD.VS.PN ---
Subjective Subjective/Hospital Course Pt adm with RIGHT arm wound doing well carla diet no chills anxious to go home Objective Vitals/I&O Date Time Temp Pulse Resp B/P Pulse Ox O2 Delivery O2 Flow Rate FiO2 03/20/17 08:00 94 Room Air 03/20/17 08:00 97.5 63 18 102/70 94 03/20/17 04:00 97.8 67 17 92/53 95 03/20/17 00:00 97.8 58 18 102/56 95 03/19/17 20:00 Room Air 03/19/17 20:00 97.7 68 18 95/52 96 03/19/17 16:00 97.6 66 18 100/54 93 03/20/17 03/20/17 03/20/17 07:00 15:00 23:00 Intake Total 0 ml Balance 0 ml Physical Exam R UE incision but significantly better. No palpable graft beneath Laboratory Laboratory Tests Test 03/20/17 04:30 Prothrombin Time 17.5 Prothromb Time International 1.6 Ratio Date/Time Procedure Status Source Growth 03/16/17 18:11 Aerobic Blood Culture - Preliminary Resulted Blood Peripheral NO GROWTH IN 4 DAYS 03/16/17 18:11 Anaerobic Blood Culture - Preliminary Resulted Blood Peripheral NO GROWTH IN 4 DAYS 03/16/17 16:45 Gram Stain - Final Complete Wound Hand 03/16/17 16:45 Wound Culture - Final Complete Enterococcus Faecalis 03/16/17 15:57 Aerobic Blood Culture Received Blood Peripheral Pending 03/16/17 15:57 Anaerobic Blood Culture Received Blood Peripheral Pending Assessment and Plan Plan ok wo d/c with home health daily RTC 03/25 to my clinic - will arrange Chon Plascencia MD Mar 20, 2017 12:04
[2017-03-20 16:00] VITALS: BP 94/52; PULSE 72; RESP 18; TEMP 97.2; O2SAT 93
[2017-03-20] MEDS: WARFARIN SOD 5 MG TAB PO SCH (16:00)
[2017-03-20] MEDS: ACETAMINOPHEN/HYDROcodone 325 MG/5 MG TAB PO PRN (16:06)
--- NOTE | 2017-03-20 17:01 | HHI.NPPN ---
Subjective General Problems: Anemia, Edema, Hypertension Renal Failure: End Stage Renal Disease History of Present Illness 46-year-old male with past medical history of hypertension, peripheral vascular disease with bilateral below-knee amputation, he was sent to the hospital because of possible infection and cellulitis in the right arm at the site of the AV fistula. Patient has been on hemodialysis Tuesday, Tuesday and Tuesday. Additional Remarks Patient is alert, pain in Rt. arm is better, no complain. Review of Systems General Constitutional: Fatigue Cardiovascular Cardiac: ODEN Objective Data Data 03/19/17 03/20/17 19:00 07:00 Intake Total 1200 ml 360 ml Output Total 0 ml Balance 1200 ml 360 ml Intake Oral 1200 ml 360 ml IV Total 0 ml Output Urine Total 0 ml # Voids 1 # Bowel Movements 1 1 Vital Signs Date Time Temp Pulse Resp B/P Pulse Ox O2 Delivery O2 Flow Rate FiO2 03/20/17 12:00 97.4 61 18 100/59 96 03/20/17 08:00 94 Room Air 03/20/17 08:00 97.5 63 18 102/70 94 03/20/17 04:00 97.8 67 17 92/53 95 03/20/17 00:00 97.8 58 18 102/56 95 03/19/17 20:00 Room Air 03/19/17 20:00 97.7 68 18 95/52 96 -: 03/16/17 1811 03/17/17 0641 Physical Exam General Appearance: No Acute Distress, Comfortable Eyes Eye Exam: Pupils Equal Throat Throat Exam: Oral Mucosa Flat & Moist Neck Neck Exam: Neck Supple Pulmonary Resp Exam: Breath Sounds Equal, No Distress, Rhonchi, Decreased Bases Cardiology CV Exam: Regular, Normal Sinus Rhythm Gastrointestinal/Abdomen GI Exam: Soft, Non-Tender, Bowel Sounds Present Extremeties Extremities Exam: No Edema Extremeties Remarks Right arm AV fistula with a good bruit. Neurologic Neuro Exam: Alert, Awake, Oriented Psychiatric Psych Exam: Appropriate Responses Assessment/Plan Discussed Condition With: Patient Problem List: (1) End-stage renal disease on hemodialysis (2) Cellulitis of arm, right Plan Patient was seen by vascular surgery. Has Enterococcus in the culture. Consultants notes read and appreciated. Continue vancomycin as an outpatient with a total course of 6 weeks as recommended by infectious disease. Vascular surgery will continue with wound care post discharge. Clarence Merlos MD Mar 20, 2017 17:01
[2017-03-20 20:00] VITALS: BP 100/59; PULSE 77; RESP 18; TEMP 97.4; O2SAT 93
[2017-03-20] MEDS: diphenhydrAMINE HCL 25 MG CAP PO PRN (21:14)
[2017-03-21] VITALS: BP 101/56; PULSE 67; RESP 20; TEMP 97.6; O2SAT 93
[2017-03-21 04:00] VITALS: BP 123/60; PULSE 61; RESP 20; TEMP 97.6; O2SAT 93
[2017-03-21 07:29] LABS: INTERNATIONAL NORMALIZED RATIO 1.9 RATIO; PROTHROMBIN TIME - PATIENT 21.4 SEC (9.8-11.6)
[2017-03-21] MEDS: diphenhydrAMINE HCL 25 MG CAP PO PRN (07:33)
[2017-03-21 08:00] VITALS: BP 103/64; PULSE 59; RESP 20; TEMP 97; O2SAT 96
--- NOTE | 2017-03-21 08:27 | HHI.PR ---
Subjective Remarks Follow-up open wound/cellulitis at site of right AV graft 03/17/17-patient seen and examined, currently afebrile and denies any pain to the right AV sites wound. No acute event overnight 03/18/17-patient seen and examined, no acute event overnight. Denies any pain around right open wound 03/19/17-patient seen and examined, hemodialysis yesterday. Afebrile. 03/20/17-patient seen and examined, stable and afebrile. He Is wondering when he can be discharged home. Blood culture negative to date 3 days 03/21/17-patient seen in exam, no acute event overnight and heading for hemodialysis morning then discharged home. Patient will complete a total 6 weeks of IV antibiotics of HD. Currently afebrile and denies any drainage to right AV fistula site wound Objective Vitals Vital Signs Date Time Temp Pulse Resp B/P Pulse Ox O2 Delivery O2 Flow Rate FiO2 03/21/17 04:00 Room Air 03/21/17 04:00 97.6 61 20 123/60 93 03/21/17 00:00 Room Air 03/21/17 00:00 97.6 67 20 101/56 93 03/20/17 21:15 Room Air 03/20/17 20:00 97.4 77 18 100/59 93 03/20/17 16:00 97.2 72 18 94/52 93 03/20/17 12:00 97.4 61 18 100/59 96 I/O 03/20/17 03/20/17 03/20/17 03/21/17 03/21/17 03/21/17 07:00 15:00 23:00 07:00 15:00 23:00 Intake Total 0 ml 1400 ml 240 ml 482 ml Output Total 233 ml Balance 0 ml 1167 ml 240 ml 482 ml Intake Oral 1400 ml 240 ml 480 ml IV Total 0 ml 2 ml Stool Total 233 ml # Voids 0 # Bowel Movements 1 0 Result Diagram: 03/17/17 0641 Objective Remarks GENERAL: NAD SKIN: Warm and dry. Dressing over right AVF wound HEAD: Normocephalic. EYES: No scleral icterus. No injection or drainage. NECK: Supple, trachea midline. No JVD or lymphadenopathy. CARDIOVASCULAR: Regular rate and rhythm without murmurs, gallops, or rubs. RESPIRATORY: Breath sounds equal bilaterally. No accessory muscle use. GASTROINTESTINAL: Abdomen soft, non-tender, nondistended. MUSCULOSKELETAL: B -BKAs BACK: Nontender without obvious deformity. No CVA tenderness. Procedures none A/P Problem List: (1) Cellulitis of arm, right ICD Code: L03.113 Status: Acute (2) AVF (arteriovenous fistula) ICD Code: I77.0 Status: Acute (3) Hypotension ICD Code: I95.9 Status: Acute (4) End-stage renal disease on hemodialysis ICD Code: N18.6 Status: Acute Assessment and Plan 46-year-old man with Wound/Cellulitis at AV fistula site Blood culture NTD . Wound culture positive for group D enterococcus Currently on vancomycin IV and s/p Fortaz 1gm IV Q24hr. continue with vancomycin with HD 6 weeks Appreciate input from infectious disease specialist. Appreciate input from vascular surgery End-stage renal disease on hemodialysis Appreciate input from nephrology, Continue Renvela and monitor Bun/Cr History of bilateral lower extremities DVT Continue Coumadin and monitor INR/PT History of hypotension Consider midodrine DVT prophylaxis: Coumadin Devyn Kennedy MD Mar 21, 2017 08:27 Devyn Kennedy MD Mar 21, 2017 08:27
--- NOTE | 2017-03-21 08:34 | HHI.DS ---
Discharge Summary Admission Date Mar 16, 2017 at 15:19 Discharge Date: Mar 21, 2017 Admitting Diagnosis (1) Cellulitis of arm, right ICD Code: L03.113 (2) AVF (arteriovenous fistula) ICD Code: I77.0 (3) Hypotension ICD Code: I95.9 (4) End-stage renal disease on hemodialysis ICD Code: N18.6 Procedures none Brief History - From Admission 26-year-old male with a history of end-stage renal disease on hemodialysis was seen by his doctor for evaluation of right AV fistula sites redness, pus and possible cellulitis and abscess. Patient is status post right AV fistula placement 02/08/17, and states over the past 7-10 days he is noticed an opening At the site with some pus production however denies any febrile episode or chills. CBC/BMP: 03/17/17 0641 Significant Findings Laboratory Tests Test 03/19/17 03/20/17 03/21/17 06:44 04:30 06:57 Prothrombin Time 16.6 SEC 17.5 SEC 21.4 SEC (9.8-11.6) (9.8-11.6) (9.8-11.6) PE at Discharge GENERAL: NAD SKIN: Warm and dry. Dressing over right AVF wound HEAD: Normocephalic. EYES: No scleral icterus. No injection or drainage. NECK: Supple, trachea midline. No JVD or lymphadenopathy. CARDIOVASCULAR: Regular rate and rhythm without murmurs, gallops, or rubs. RESPIRATORY: Breath sounds equal bilaterally. No accessory muscle use. GASTROINTESTINAL: Abdomen soft, non-tender, nondistended. MUSCULOSKELETAL: B -BKAs BACK: Nontender without obvious deformity. No CVA tenderness. Hospital Course Patient admitted secondary to cellulitis and wound dehiscence at the site of right AV fistula which he was started on IV antibiotics including vancomycin and Fortaz, which was discontinued and patient continue with IV Vanco with hemodialysis. Nephrology was consulted as well as vascular surgery and infectious disease specialist. Also received wound care provided by wound care nurse. He was continued on his treatment for other chronic medical conditions. Vitals were monitored. DVT and GI prophylaxis will provided. Prior to discharge, patient's condition improved. Pt Condition on Discharge: Stable Discharge Disposition: Discharge Home Discharge Time: > 30 minutes Discharge Instructions DIET: Follow Instructions for: Coumadin (Warfarin) Diet, Renal Failure Diet Activities you can perform: Regular-No Restrictions Follow up Referrals: Nephrology PCP Follow-up - 1 Week Vascular Surgery New Orders: PT/INR - 2-3 Days New Medications: Vancomycin Inj (Vancomycin Inj) 1,000 Mg Inj 1000 MG IV 3xA WEEK WITH DIALYS Infection Days 40 Ref 0 BAG Continued Medications: Alprazolam (Xanax) 1 Mg Tab 1 MG PO Q8H PRN ANXIETY Ref 0 TAB Pantoprazole (Protonix) 20 Mg Tab 20 MG PO DAILY Reflux #30 Ref 0 TAB Sevelamer HCl (Renagel) 800 Mg Tab 1600 MG PO TID Control phosphorus levels #180 Ref 0 TAB Warfarin (Warfarin) 4 Mg Tab 4 MG PO DAILY Blood Clot Prevention #30 Ref 0 TAB Discontinued Medications: Hydrocodone-Acetaminophen (Hydrocodone-Acetaminophen) 10-325 mg Tab 1 TAB PO Q4H PRN PAIN Ref 0 TAB Devyn Kennedy MD Mar 21, 2017 08:33
[2017-03-21] MEDS: PANTOPRAZOLE SOD 20 MG DELAYED RELEASE TAB PO SCH (09:17)
[2017-03-21] MEDS: SEVELAMER CARBONATE 800 MG TAB PO SCH ×2 (09:17→12:19)
[2017-03-21] MEDS: SODIUM CHLORIDE 0.9% FLUSH 10 ML FLUSH IV FLUSH SCH (09:17)
--- NOTE | 2017-03-21 09:23 | HHI.FF ---
Face to Face Verification Diagnosis: (1) Wound dehiscence (2) Cellulitis of arm, right (3) ESRD (end stage renal disease) on dialysis Home Health Nursing Order: Wound care and dressing changes Instructions: Recommend to cleanse wound to RUE with normal saline and apply plain 1/4 inch packing strip loosely packed into wound bed. Cover wound with Calcium Alginate AG (Maxorb AG) just over wound bed. Secure dressing with dry 4x4 gauze, ABD pad , rolled gauze and tape or stockinette. Please change dressing daily. I have seen patient Gino Mercado on 03/21/17. My clinical findings support the need for the requested home health care services because: Deconditioned w/ increased weakness I certify that my clinical findings support that this patient is homebound because: Poor cardiac reserve Devyn Kennedy MD Mar 21, 2017 09:23
[2017-03-21] MEDS: HEPARIN SODIUM - IV 10,000 UNITS/10 ML VIAL PRN (09:29)
[2017-03-21] MEDS: VANCOMYCIN INJ 1,000 MG in SODIUM CHLOR 0.9% 250 ML INJ 250 ML IV SCH (09:29)
[2017-03-21] MEDS: GENTAMICIN SULFATE (DIALYSIS USE ONLY) 20 MG/2 ML VIAL IV PRN (09:29)
--- NOTE | 2017-03-21 10:58 | PD.VS.PN ---
Subjective Subjective/Hospital Course Pt in HD w/o complaints Pt's right arm wound with improved healing noted since previous assessment Objective Vitals/I&O Date Time Temp Pulse Resp B/P Pulse Ox O2 Delivery O2 Flow Rate FiO2 03/21/17 08:00 97.0 59 20 103/64 96 03/21/17 04:00 Room Air 03/21/17 04:00 97.6 61 20 123/60 93 03/21/17 00:00 Room Air 03/21/17 00:00 97.6 67 20 101/56 93 03/20/17 21:15 Room Air 03/20/17 20:00 97.4 77 18 100/59 93 03/20/17 16:00 97.2 72 18 94/52 93 03/20/17 12:00 97.4 61 18 100/59 96 03/21/17 03/21/17 03/21/17 07:00 15:00 23:00 Intake Total 482 ml Balance 482 ml Physical Exam GENERAL: A&OX3,NAD SKIN: Warm and dry. Right Upper arm wound smaller in size since previous assessment, no R/D/O mild swelling present CARDIOVASCULAR: RRR, +S1,S2 RESPIRATORY: BS CTA/No accessory muscle use. MUSCULOSKELETAL: Bilat BKA Laboratory Laboratory Tests Test 03/21/17 06:57 Prothrombin Time 21.4 Prothromb Time International 1.9 Ratio Date/Time Procedure Status Source Growth 03/16/17 18:11 Aerobic Blood Culture - Preliminary Resulted Blood Peripheral NO GROWTH IN 4 DAYS 03/16/17 18:11 Anaerobic Blood Culture - Preliminary Resulted Blood Peripheral NO GROWTH IN 4 DAYS 03/16/17 16:45 Gram Stain - Final Complete Wound Hand 03/16/17 16:45 Wound Culture - Final Complete Enterococcus Faecalis 03/16/17 15:57 Aerobic Blood Culture Received Blood Peripheral Pending 03/16/17 15:57 Anaerobic Blood Culture Received Blood Peripheral Pending Assessment and Plan Assessment: (1) Wound dehiscence Status: Acute Plan Plan Pt going home today post HD Request for Home Health - Daily wound care/dressing changes Pt will f/u in our OPC on 03/25 Stephie CASTANEDA [facility] [phone] Discharge Planning Today Stephie Cartagena Mar 21, 2017 10:58
--- NOTE | 2017-03-21 11:18 | HHI.NPPN ---
Subjective General Problems: Anemia, Edema, Hypertension Renal Failure: End Stage Renal Disease History of Present Illness 46-year-old male with past medical history of hypertension, peripheral vascular disease with bilateral below-knee amputation, he was sent to the hospital because of possible infection and cellulitis in the right arm at the site of the AV fistula. Patient has been on hemodialysis Tuesday, Tuesday and Tuesday. Additional Remarks patient was seen during dialysis. Access working well. Patient with no complaints presently and wants to go home today. Review of Systems General Constitutional: Fatigue Cardiovascular Cardiac: ODEN Objective Data Data 03/20/17 03/21/17 18:59 06:59 Intake Total 1400 ml 722 ml Output Total 233 ml Balance 1167 ml 722 ml Intake Oral 1400 ml 720 ml IV Total 2 ml Stool Total 233 ml # Voids 0 # Bowel Movements 0 Vital Signs Date Time Temp Pulse Resp B/P Pulse Ox O2 Delivery O2 Flow Rate FiO2 03/21/17 08:00 97.0 59 20 103/64 96 03/21/17 04:00 Room Air 03/21/17 04:00 97.6 61 20 123/60 93 03/21/17 00:00 Room Air 03/21/17 00:00 97.6 67 20 101/56 93 03/20/17 21:15 Room Air 03/20/17 20:00 97.4 77 18 100/59 93 03/20/17 16:00 97.2 72 18 94/52 93 03/20/17 12:00 97.4 61 18 100/59 96 -: 03/17/17 0641 Physical Exam General Appearance: No Acute Distress, Comfortable Eyes Eye Exam: Pupils Equal Throat Throat Exam: Oral Mucosa [place] & Moist Neck Neck Exam: Neck Supple Pulmonary Resp Exam: Breath Sounds Equal, No Distress, Rhonchi, Decreased Bases Cardiology CV Exam: Regular, Normal Sinus Rhythm Gastrointestinal/Abdomen GI Exam: Soft, Non-Tender, Bowel Sounds Present Extremeties Extremities Exam: No Edema Extremeties Remarks Right arm AV fistula with a good bruit. Neurologic Neuro Exam: Alert, Awake, Oriented Psychiatric Psych Exam: Appropriate Responses Assessment/Plan Discussed Condition With: Patient Problem List: (1) End-stage renal disease on hemodialysis (2) Cellulitis of arm, right Plan Patient was seen during dialysis today. Has Enterococcus in the culture. Consultants notes read and appreciated. Continue vancomycin as an outpatient with a total course of 6 weeks as recommended by infectious disease. Dialysis unit notified of the order. Vascular surgery will continue with wound care post discharge. Clarence Merlos MD Mar 21, 2017 11:18
[2017-03-21 12:00] VITALS: BP 104/62; PULSE 57; RESP 20; TEMP 96.5; O2SAT 95
[2017-03-21] MEDS: ACETAMINOPHEN/HYDROcodone 325 MG/5 MG TAB PO PRN (12:20)
== END 2017-03-21 13:50 | disposition home health service (06) | DRG 314 ==
LOC: N04A 15:19
PROVIDERS: ADMIT Hospitalist; ATTEND Hospitalist
PROC: 5A1D60Z (ICD-10-PCS; principal; 2017-03-18)
DX: T82.7XXA Infection and inflammatory reaction due to other cardiac and vascular devices, implants and grafts, initial encounter (principal); N18.6 End stage renal disease; I12.0 Hypertensive chronic kidney disease with stage 5 chronic kidney disease or end stage renal disease; M32.9 Systemic lupus erythematosus, unspecified; T81.31XA Disruption of external operation (surgical) wound, not elsewhere classified, initial encounter; N25.81 Secondary hyperparathyroidism of renal origin; L03.113 Cellulitis of right upper limb; I95.9 Hypotension, unspecified; I73.9 Peripheral vascular disease, unspecified; Z99.2 Dependence on renal dialysis; Z89.511 Acquired absence of right leg below knee; Z89.512 Acquired absence of left leg below knee; I25.10 Atherosclerotic heart disease of native coronary artery without angina pectoris; Z95.5 Presence of coronary angioplasty implant and graft; Z86.14 Personal history of Methicillin resistant Staphylococcus aureus infection; Z88.5 Allergy status to narcotic agent; Z91.013 Allergy to seafood; Z87.891 Personal history of nicotine dependence; Y83.2 Surgical operation with anastomosis, bypass or graft as the cause of abnormal reaction of the patient, or of later complication, without mention of misadventure at the time of the procedure; Z86.718 Personal history of other venous thrombosis and embolism; Z79.01 Long term (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 of anticoagulants; J44.9 Chronic obstructive pulmonary disease, unspecified; D64.9 Anemia, unspecified; Z89.029 Acquired absence of unspecified finger(s); Y71.3 Surgical instruments, materials and cardiovascular devices (including sutures) associated with adverse incidents; Y92.9 Unspecified place or not applicable
CPT/HCPCS: 71010; 80048; 80053; 80202; 83605; 85025; 85610; 85652; 86140; 87040; 87070; 87077; 87186; 87205; 90935; 96365; 96375; J0713; J1580; J1644; J3370; J7030; J7050

== ENCOUNTER 2017-05-16 09:13 | Emergency (ER) | payer MEDICAID ==
[~2017-05-16] VITALS: Ht 170.2 cm; Wt 76.0 kg
[2017-05-16] VITALS (8 sets, daily range): BP systolic 96–117; BP diastolic 58–89; PULSE 62–81; RESP 16–20; TEMP 98.3; O2SAT 96–97
[~2017-05-16 09:13] MED LIST changes: -CINA30 PO; -HYDR-3583 PO; +VANC1000P IV; +WARF-20 PO; -WARF-23 PO
--- NOTE | 2017-05-16 10:29 | PD ---
HPI Chief Complaint: [employer] Problem Time Seen by Provider: 10:08 Travel History International Travel<30 days: No Contact w/Intl Traveler<30days: No Traveled to known affect area: No History of Present Illness HPI 46-year-old male requesting vas catheter replacement. Patient has history of end-stage renal disease on dialysis. Patient had dialysis Tuesday and Tuesday weekly. 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 Patient went to dialysis this morning. Patient was advised by the staff at dialysis Center that the vas catheter is blocked. Patient was advised to go to ED for evaluation and possible vas catheter replacement. Patient has no complaint. Patient has multiple vas catheter placed in the chest in the past which blocked up in the past. Last vas catheter was put on the left groin. PFSH Past Medical History Hx Anticoagulant Therapy: Yes (warfarin) Arthritis: Yes Asthma: Yes Autoimmune Disease: Yes Blood Disorders: Yes Anxiety: Yes Depression: No Heart Rhythm Problems: No Cancer: No Cardiovascular Problems: Yes (cad) High Cholesterol: No Chemotherapy: No Chest Pain: Yes Congestive Heart Failure: Yes COPD: Yes Coronary Artery Disease: Yes Diabetes: No Dialysis: Yes Diminished Hearing: No Deep Vein Thrombosis: Yes Endocrine: No GERD: No Glaucoma: No Genitourinary: No Headaches: No Hepatitis: No Hiatal Hernia: No Hypertension: Yes Immune Disorder: No Kidney Stones: No Musculoskeletal: No Neurologic: No Psychiatric: No Reproductive: No Respiratory: Yes (COPD) Immunizations Current: No Migraines: No Myocardial Infarction: Yes Radiation Therapy: No Renal Failure: Yes Seizures: No Sleep Apnea: No Thyroid Disease: No Ulcer: No Past Surgical History Abdominal Surgery: No AICD: No Appendectomy: No Arteriovenous Shunt: Yes Body Medical Devices: cardiac stent Cardiac Surgery: Yes (STENT PLACEMENT 1 YEAR AGO) Cholecystectomy: No Coronary Stent: Yes Ear Surgery: No Endocrine Surgery: No Eye Surgery: No Genitourinary Surgery: No Gynecologic Surgery: No Joint Replacement: No Oral Surgery: No Pacemaker: No Thoracic Surgery: No Other Surgery: Yes (VAS CATH LEFT THIGH) Social History Alcohol Use: No Tobacco Use: No Substance Use: No Allergies-Medications (Allergen,Severity, Reaction): Coded Allergies: Iodine (Verified Allergy, Severe, blisters, 05/16/17) Morphine (Verified Allergy, Severe, Itching, 05/16/17) *MDRO Multi-Drug Resistant Organism (Verified Adverse Reaction, Unknown, ) MRSA (sputum) - 01/2008 MRSA PCR Screen NEGAVTIVE- 09/10/16 & 09/14/16 Cleared per Infection Control Reported Meds & Prescriptions Reported Meds & Active Scripts Active Vancomycin Inj (Vancomycin HCl) 1,000 Mg Inj 1,000 Mg IV 3XA WEEK WITH DIALYS 40 Days Reported Warfarin 4 Mg Tab 4 Mg PO DAILY Xanax (Alprazolam) 1 Mg Tab 1 Mg PO Q8H PRN Protonix (Pantoprazole Sodium) 20 Mg Tab 20 Mg PO DAILY Renagel (Sevelamer HCl) 800 Mg Tab 1,600 Mg PO TID Review of Systems General / Constitutional: No: Fever Eyes: No: Visual changes HENT: No: Headaches Cardiovascular: No: Chest Pain or Discomfort Respiratory: No: Shortness of Breath Gastrointestinal: No: Abdominal Pain Genitourinary: No: Dysuria Musculoskeletal: No: Pain Skin: No Rash Neurologic: No: Weakness Psychiatric: No: Depression Endocrine: No: Polydipsia Hematologic/Lymphatic: No: Easy Bruising Physical Exam Narrative GENERAL: Well-nourished, well-developed patient. SKIN: Focused skin assessment warm/dry. HEAD: Normocephalic. EYES: No scleral icterus. No injection or drainage. NECK: Supple, trachea midline. No JVD or lymphadenopathy. CARDIOVASCULAR: Regular rate and rhythm without murmurs, gallops, or rubs. RESPIRATORY: Breath sounds equal bilaterally. No accessory muscle use. GASTROINTESTINAL: Abdomen soft, non-tender, nondistended. MUSCULOSKELETAL: No cyanosis, or edema. BACK: Nontender without obvious deformity. No CVA tenderness. Patient has a vasc catheter In place on the left inguinal area. Data Data Last Documented VS Vital Signs Date Time Temp Pulse Resp B/P Pulse Ox O2 Delivery O2 Flow Rate FiO2 05/16/17 14:30 65 115/63 05/16/17 13:40 16 96 Room Air 05/16/17 09:16 98.3 Orders *Heparin Inj (*Heparin Inj Periprocedura (05/16/17 12:20) Lidocai-Epi 1%-1:100,000 Inj (Xylocaine- (05/16/17 12:20) Cefazolin 2 Gm Premix (Ancef 2 Gm Premix (05/16/17 12:23) Midazolam Inj (Versed Inj) (05/16/17 12:23) Fentanyl Inj (Fentanyl Inj) (05/16/17 12:23) Vancomycin Inj (Vancomycin Inj) (05/16/17 12:24) Basic Metabolic Panel (Bmp) (05/16/17 12:29) Central Venous Cath Replacemnt (05/16/17 ) Vital Signs (Adult) Q15MX2,Q30MX4 (05/16/17 13:29) ^ Observe For (05/16/17 13:29) Activity Bed Rest (05/16/17 13:29) Diet Renal (05/16/17 Lunch) Ice / Cold Pack PRN (05/16/17 13:29) Sodium Chloride 0.9% Flush (Ns Flush) (05/16/17 13:30) Heparin Inj (Heparin Inj) (05/16/17 13:30) ^ Other Nursing Orders (05/16/17 13:35) Sodium Chloride 0.9% Flush (Ns Flush) (05/16/17 14:00) Heparin Inj (Heparin Inj) (05/16/17 14:00) Labs Laboratory Tests Test 05/16/17 13:45 Sodium Level 133 MEQ/L Potassium Level 4.8 MEQ/L Chloride Level 99 MEQ/L Carbon Dioxide Level 20.3 MEQ/L Anion Gap 14 MEQ/L Blood Urea Nitrogen 95 MG/DL Creatinine 18.14 MG/DL Estimat Glomerular Filtration 3 ML/MIN Rate Random Glucose 70 MG/DL Calcium Level 8.6 MG/DL MDM Medical Decision Making Medical Screen Exam Complete: Yes Emergency Medical Condition: Yes Interpretation(s) 1500 p.m. Sodium 133. Potassium 4.8. Bicarbonate 20.3. Differential Diagnosis Vas catheter replacement. Narrative Course 46-year-old male is here for Vas-Cath replacement. History of end-stage renal disease on dialysis. Vas-Cath on the left groin is blocked. Interventional radiologist contacted. We will replace Vas-Cath. Heparin 3500 unit given to the [place] Diagnosis Primary Impression: Displacement of vascular dialysis catheter, initial encounter Patient Instructions: General Instructions Additional Instructions: Follow-up with personal physician and block out machine operator. Med/Other Pt SpecificInfo: No Change to Meds Disposition: 01 DISCHARGE HOME Condition: Stable Rasta French MD May 16, 2017 10:29
[2017-05-16] MEDS ORDERED: LIDOCAINE 1%/EPINEPHrine 1:100,000 SOLN 20 ML VIAL ONE (12:20)
[2017-05-16] MEDS ORDERED: MIDAZOLAM HCL 2 MG/2 ML VIAL ONE (12:23)
[2017-05-16] MEDS ORDERED: ceFAZolin 2 GM PREMIX 50 ML ONE (12:23)
[2017-05-16] MEDS ORDERED: fentaNYL CITRATE 250 MCG/5 ML AMP ONE (12:23)
[2017-05-16] MEDS ORDERED: VANCOMYCIN HCL 1000 MG VIAL ONE (12:24)
[2017-05-16] MEDS ORDERED: HEPARIN SODIUM - IV 2,000 UNITS/2 ML VIAL IV FLUSH PRN ×2 (13:30→14:00)
[2017-05-16] MEDS ORDERED: SODIUM CHLORIDE 0.9% FLUSH 10 ML FLUSH IVF PRN ×2 (13:30→14:00)
--- NOTE | 2017-05-16 13:35 | PD.RAD ---
Post Procedure Progress Note Pre Procedure Diagnosis: (1) ESRD (end stage renal disease) on dialysis (2) Complications, dialysis, catheter, mechanical Post Procedure Diagnosis: (1) ESRD (end stage renal disease) on dialysis (2) Complications, dialysis, catheter, mechanical Procedure Date: May 16, 2017 Supervising Radiologist: Juan Agee Proceduralist/Assist: Theresa Coleman, RT(R), Kavitha Mayorga RT(R) Anesthesia: Local, Analgesia, Conscious Sedation Plan of Activity Patient to Unit: ROPU Patient Condition: Fair See PACS Report for procedural detail/treatment Central Venous Access Device Procedure 1 Left Femoral Hemodialysis Catheter Tunneled Exchange dual lumen Malagasy: 15 Findings: Cuff of previous catheter out of tunnel. New device placed. 2-0 Prolene cerclage placed at dermatotomy. Cerclage should be removed in 7-10 days Juan Agee MD May 16, 2017 13:35
[2017-05-16 14:18] LABS: BICARBONATE 20.3 MEQ/L (21.0-32.0); POTASSIUM 4.8 MEQ/L (3.5-5.1)
--- NOTE | 2017-05-16 14:25 | RADRPT ---
EXAM DATE/TIME: 05/16/2017 12:31 INDICATIONS : Patient with history of end-stage renal disease in need of tunnelled dialysis catheter replacement. MEDICAL HISTORY : ESRD, Dialysis, Asthma, CAD, CHF, COPD, DVT, HTN, SD, MRSA SURGICAL HISTORY : Cardiac stent, AV dialysis fistula, Dialysis catheter, Bilateral BKA ENCOUNTER: Subsequent ACUITY: 1 day PAIN SCORE: 0/10 FLUORO TIME: 0.8 minutes IMAGE SERIES: 0 SEDATION TIME: 45minutes MEDICATION(S): 1.) 1 mg midazolam (Versed) IV 2.) 75 mcg fentanyl (Sublimaze) IV 3.) 2 g cefazolin (Ancef) IV 4.) 1 g Vancomycin IV DEVICE(S): 1.) 15 Croatian dual lumen 50 cm Jalloh II Plus catheter PROCEDURE: CENTRAL VENOUS CATHETER REPLACEMENT, LT 1. Fluoroscopically guided central venous catheter exchange. The risks, benefits and alternatives to the procedure were explained and verbal and written consent w as obtained. The site was prepped in sterile fashion. Full sterile technique was used, including ca p, mask, sterile gloves and gown and a large sterile sheet. Hand hygiene and 2% chlorhexidine and/or betadine/alcohol prep was utilized per protocol for cutaneous antisepsis. The skin and subcutaneous tissues were infiltrated with local anesthetic solution. With fluoroscopic guidance the previously placed central venous catheter was exchanged for the prescr ibed catheter as above. Post procedure image demonstrates satisfactory position of the tube. The cath eter was sutured in place. A 2-0 Prolene cerclage wasplaced at the dermatotomy site. Patient should return in 7-10 days to have the cerclage removed. CONCLUSION: Uncomplicated venous catheter change as above. Juan Agee MD on May 16, 2017 at 14:20 Board Certified Radiologist. This report was verified electronically.
== END 2017-05-16 17:38 | disposition home or self-care (01) ==
LOC: NEPE 09:13
DX: T82.42XA Displacement of vascular dialysis catheter, initial encounter (principal); I12.0 Hypertensive chronic kidney disease with stage 5 chronic kidney disease or end stage renal disease; N18.6 End stage renal disease; I25.10 Atherosclerotic heart disease of native coronary artery without angina pectoris; J44.9 Chronic obstructive pulmonary disease, unspecified; I13.2 Hypertensive heart and chronic kidney disease with heart failure and with stage 5 chronic kidney disease, or end stage renal disease; I50.9 Heart failure, unspecified; I25.2 Old myocardial infarction; Z99.2 Dependence on renal dialysis
CPT/HCPCS: 36581; 77001; 80048; 96374; 96375; 96376; 99152; 99153; 99284; C1750; C1769; J0690; J1644; J2250; J3010; J3370

== ENCOUNTER 2017-06-10 13:38 | Inpatient (IN) | payer MEDICAID ==
[2017-06-10] VITALS (10 sets, daily range): BP systolic 60–91; BP diastolic 40–58; PULSE 90–133; RESP 14–26; TEMP 97.8–103; O2SAT 91–100
[~2017-06-10] VITALS: Ht 149.9 cm; Wt 83.4 kg
[2017-06-10] MEDS ORDERED: PHYTONADIONE 5 MG TAB PO ONE (14:45)
[2017-06-10] MEDS ORDERED: PROTHROMBIN COMPLEX CONC INJ 2,500 UNITS in SYRINGE/BAG 1 EA IV ONE (15:15)
[2017-06-10] MEDS ORDERED: DEXTROSE 50% IN WATER 50 ML SYRINGE ONE (15:24)
[2017-06-10] MEDS ORDERED: CEFEPIME INJ 1,000 MG in SODIUM CHLORIDE 0.9% INJ 100 ML IV ONE (15:30)
[2017-06-10] MEDS ORDERED: SODIUM CHLOR 0.9% 1000 ML INJ 1,000 ML IV ONE ×2 (15:30)
[2017-06-10] MEDS ORDERED: VANCOMYCIN INJ 1,000 MG in SODIUM CHLOR 0.9% 250 ML INJ 250 ML IV ONE (15:30)
--- NOTE | 2017-06-10 15:51 | PD ---
HPI Chief Complaint: Fever Time Seen by Provider: 15:18 Travel History International Travel<30 days: No Contact w/Intl Traveler<30days: No Traveled to known affect area: No History of Present Illness HPI This is a 46-year-old male who is on dialysis who presents to the emergency department with fevers chills and confusion. His mother provides most history. He evidently went to dialysis this morning and completed dialysis without trouble. When he got home he was reporting fevers and chills and he wasn't acting himself so she brought him to the emergency department. She doesn't know of any cough and has not been complaining of any abdominal pain. She says she he had an infection in his right arm recently. PFSH Past Medical History Hx Anticoagulant Therapy: Yes Arthritis: Yes Asthma: Yes Autoimmune Disease: Yes Blood Disorders: Yes Anxiety: Yes Depression: No Heart Rhythm Problems: No Cancer: No Cardiovascular Problems: Yes (cad) High Cholesterol: No Chemotherapy: No Chest Pain: Yes Congestive Heart Failure: Yes COPD: Yes Coronary Artery Disease: Yes Diabetes: No Dialysis: Yes Diminished Hearing: No Deep Vein Thrombosis: Yes Endocrine: No GERD: No Glaucoma: No Genitourinary: Yes (right fistula; dialysis) Headaches: No Hepatitis: No Hiatal Hernia: No Hypertension: Yes Immune Disorder: No Kidney Stones: No Medical other: Yes (PAD) Musculoskeletal: No Neurologic: No Psychiatric: No Reproductive: No Respiratory: Yes Immunizations Current: No Migraines: No Myocardial Infarction: Yes Radiation Therapy: No Renal Failure: Yes Seizures: No Sleep Apnea: No Thyroid Disease: No Ulcer: No Past Surgical History Abdominal Surgery: No AICD: No Appendectomy: No Arteriovenous Shunt: Yes Body Medical Devices: cardiac stent Cardiac Surgery: Yes (STENT PLACEMENT 1 YEAR AGO) Cholecystectomy: No Coronary Stent: Yes Ear Surgery: No Endocrine Surgery: No Eye Surgery: No Genitourinary Surgery: No Gynecologic Surgery: No Joint Replacement: No Oral Surgery: No Pacemaker: No Thoracic Surgery: No Other Surgery: Yes (VAS CATH LEFT THIGH) Social History Alcohol Use: No Tobacco Use: No Substance Use: No Allergies-Medications (Allergen,Severity, Reaction): Coded Allergies: iodine (Unverified Allergy, Severe, blisters, 06/10/17) morphine (Unverified Allergy, Severe, Itching, 06/10/17) potassium iodide (Unverified Allergy, Severe, blisters, 06/10/17) povidone-iodine (Unverified Allergy, Severe, blisters, 06/10/17) sodium iodide (Unverified Allergy, Severe, blisters, 06/10/17) sodium iodide (Unverified Allergy, Severe, blisters, 06/10/17) *MDRO Multi-Drug Resistant Organism (Verified Adverse Reaction, Unknown, ) MRSA (sputum) - 01/2008 MRSA PCR Screen NEGAVTIVE- 09/10/16 & 09/14/16 Cleared per Infection Control Reported Meds & Prescriptions Reported Meds & Active Scripts Active Vancomycin Inj (Vancomycin HCl) 1,000 Mg Inj 1,000 Mg IV 3XA WEEK WITH DIALYS 40 Days Reported Warfarin 4 Mg Tab 4 Mg PO DAILY Xanax (Alprazolam) 1 Mg Tab 1 Mg PO Q8H PRN Protonix (Pantoprazole Sodium) 20 Mg Tab 20 Mg PO DAILY Renagel (Sevelamer HCl) 800 Mg Tab 1,600 Mg PO TID Review of Systems ROS Limitations: Altered Mental Status Physical Exam Narrative GENERAL: Chronically ill-appearing SKIN: Dry with skin tenting HEAD: Atraumatic. Normocephalic. EYES: Pupils equal and round. No injection or drainage. ENT: Dry mucous membranes NECK: Trachea midline. CARDIOVASCULAR: Regular rate and rhythm. No murmur appreciated. AV fistula right upper extremity. RESPIRATORY: Clear to auscultation. Breath sounds equal bilaterally. GASTROINTESTINAL: Abdomen soft, non-tender, nondistended. MUSCULOSKELETAL: Bilateral BKA NEUROLOGICAL: Confused. No obvious cranial nerve deficits. Moving all extremities. Data Data Last Documented VS Vital Signs Date Time Temp Pulse Resp B/P (MAP) Pulse Ox O2 Delivery O2 Flow Rate FiO2 06/10/17 15:32 98.9 93 19 82/50 (61) 95 2.00 06/10/17 15:06 Room Air Orders Orders Electrocardiogram (06/10/17 14:36) Complete Blood Count With Diff (06/10/17 14:36) Comprehensive Metabolic Panel (06/10/17 14:36) Prothrombin Time / Inr (Pt) (06/10/17 14:36) Act Partial Throm Time (Ptt) (06/10/17 14:36) Lactic Acid Sepsis Protocol (06/10/17 14:36) Ckmb (Isoenzyme) Profile (06/10/17 14:36) Troponin I (06/10/17 14:36) Urinalysis - C+S If Indicated (06/10/17 14:36) Blood Culture (06/10/17 14:36) Chest, Single Ap (06/10/17 14:36) Blood Glucose (06/10/17 14:36) Ecg Monitoring (06/10/17 14:36) Iv Access Insert/Monitor (06/10/17 14:36) Oximetry (06/10/17 14:36) Oxygen Administration (06/10/17 14:36) Vancomycin Inj (Vancomycin Inj) (06/10/17 15:30) Cefepime Inj (Maxipime Inj) (06/10/17 15:30) Sodium Chlor 0.9% 1000 Ml Inj (Ns 1000 M (06/10/17 15:30) Sodium Chlor 0.9% 1000 Ml Inj (Ns 1000 M (06/10/17 15:30) Dextrose 50% In Brandy (Syr) Inj (D50w (Syr (06/10/17 15:24) MDM Medical Decision Making Medical Screen Exam Complete: Yes Emergency Medical Condition: Yes Differential Diagnosis Pneumonia, urinary tract infection, bacteremia, cellulitis, sepsis, septic shock Narrative Course This is a 46-year-old male who has a history of end-stage renal disease who presents to the emergency department febrile, confused with a low blood pressure. When he arrived in my room he had a systolic blood pressure of 60. We immediately established IV access and he was given 2 L of IV fluid. Blood sugar was checked and it was 20. He was given an amp of D50. Cultures were obtained and patient was started on broad-spectrum antibiotics. His blood pressure improved with a map of 64 and his mental status improved. [facility] was [facility] and care was transferred to Dr. Altamirano. Critical Care Narrative Aggregate critical care time was 35 minutes. Time to perform other separately billable procedures was not included in the critical care time. My time did not include minutes spent treating any other patients simultaneously or on activities that did not directly contribute to the patient's treatment. The services I provided to this patient were to treat and/or prevent clinically significant deterioration that could result in: disability, I provided critical care services requiring my management, as noted below: Chart data review, documentation time, medication orders and management, vital sign assessments/reviewing monitor data, ordering and reviewing lab tests, ordering and interpreting/reviewing x-rays and diagnostic studies, care of the patient and discussion of the patient with the admitting physicians. Shira Alcala MD Jun 10, 2017 15:51
--- NOTE | 2017-06-10 15:59 | PD ---
Physical Exam Date Seen by Provider: Jun 10, 2017 Data Data Last Documented VS Vital Signs Date Time Temp Pulse Resp B/P (MAP) Pulse Ox O2 Delivery O2 Flow Rate FiO2 06/10/17 18:11 106 17 91/51 (64) 06/10/17 16:19 97.8 98 Nasal Cannula 2.00 Orders Orders Electrocardiogram (06/10/17 14:36) Complete Blood Count With Diff (06/10/17 14:36) Comprehensive Metabolic Panel (06/10/17 14:36) Prothrombin Time / Inr (Pt) (06/10/17 14:36) Act Partial Throm Time (Ptt) (06/10/17 14:36) Lactic Acid Sepsis Protocol (06/10/17 14:36) Ckmb (Isoenzyme) Profile (06/10/17 14:36) Troponin I (06/10/17 14:36) Urinalysis - C+S If Indicated (06/10/17 14:36) Blood Culture (06/10/17 14:36) Chest, Single Ap (06/10/17 14:36) Blood Glucose (06/10/17 14:36) Ecg Monitoring (06/10/17 14:36) Iv Access Insert/Monitor (06/10/17 14:36) Oximetry (06/10/17 14:36) Oxygen Administration (06/10/17 14:36) Vancomycin Inj (Vancomycin Inj) (06/10/17 15:30) Cefepime Inj (Maxipime Inj) (06/10/17 15:30) Sodium Chlor 0.9% 1000 Ml Inj (Ns 1000 M (06/10/17 15:30) Sodium Chlor 0.9% 1000 Ml Inj (Ns 1000 M (06/10/17 15:30) Dextrose 50% In Brandy (Syr) Inj (D50w (Syr (06/10/17 15:24) Dextrose 50% In Brandy (Syr) Inj (D50w (Syr (06/10/17 16:00) Dextrose 50% In Brandy (Syr) Inj (D50w (Syr (06/10/17 16:00) Blood Glucose (06/10/17 16:01) Blood Glucose (06/10/17 16:31) Blood Glucose (06/10/17 16:01) Blood Glucose (06/10/17 17:01) Admit Order (Ed Use Only) (06/10/17 18:19) Labs Laboratory Tests Test 06/10/17 15:15 White Blood Count 10.8 TH/MM3 Red Blood Count 5.02 MIL/MM3 Hemoglobin 16.3 GM/DL Hematocrit 48.5 % Mean Corpuscular Volume 96.5 FL Mean Corpuscular Hemoglobin 32.6 PG Mean Corpuscular Hemoglobin Concent 33.7 % Red Cell Distribution Width 18.9 % Platelet Count 93 TH/MM3 Mean Platelet Volume 8.9 FL Neutrophils (%) (Auto) 92.4 % Lymphocytes (%) (Auto) 2.2 % Monocytes (%) (Auto) 4.8 % Eosinophils (%) (Auto) 0.2 % Basophils (%) (Auto) 0.4 % Neutrophils # (Auto) 10.0 TH/MM3 Lymphocytes # (Auto) 0.2 TH/MM3 Monocytes # (Auto) 0.5 TH/MM3 Eosinophils # (Auto) 0.0 TH/MM3 Basophils # (Auto) 0.0 TH/MM3 CBC Comment AUTO DIFF Differential Comment AUTO DIFF CONFIRMED Prothrombin Time 14.5 SEC Prothromb Time International Ratio 1.3 RATIO Activated Partial Thromboplast Time 27.5 SEC Blood Urea Nitrogen 42 MG/DL Creatinine 11.44 MG/DL Random Glucose 67 MG/DL Total Protein 9.1 GM/DL Albumin 3.8 GM/DL Calcium Level 9.3 MG/DL Alkaline Phosphatase 76 U/L Aspartate Amino Transf (AST/SGOT) 20 U/L Alanine Aminotransferase (ALT/SGPT) 19 U/L Total Bilirubin 0.8 MG/DL Sodium Level 137 MEQ/L Potassium Level 3.3 MEQ/L Chloride Level 97 MEQ/L Carbon Dioxide Level 24.4 MEQ/L Anion Gap 16 MEQ/L Estimat Glomerular Filtration Rate 6 ML/MIN Total Creatine Kinase 67 U/L Troponin I LESS THAN 0.02 NG/ML [facility] Medical Record Reviewed: Yes Supervised Visit with ABHINAV: No Differential Diagnosis Differential includes pneumonia, bacteremia, sepsis shock, sepsis, meningitis Narrative Course Patient is a 46-year-old male with history of end-stage renal disease on hemodialysis every Mondays, Wednesdays and Fridays, reports that he sees Dr. Smith in the office. Reports that after his dialysis today, he came home and began to become confused. Patient's mother reports that patient was "talking out of his head." Reports that he is complaining of chills, cough with productive clear mucous and headaches. Reports concerns for his confusion. Patient was initially seen by Dr. Alcala - patient was found to be hypotensive - 2 Liters of fluid ordered. Patient's BS was 20, an amp of D50 was given to him. An IV line was established, blood cultures obtained including lactic acid. Patient was started on cefepime as well as vancomycin. Patient transferred to C pod for further management Upon arrival to ER, bs was rechecked and was found to be 58, another amp of D50 administered. IVF running at this time. Patient was reevaluated, reports no headache at this time, patient with no Kernig's or Brudzinski sign. After D50 was given, patient became more alert. Patient reports that he is feeling much better at this time. Q30 min bs ordered. An 18 gauge IV was placed, 2 L IV fluids are running at this time Patient remained hypotensive despite 2 L IV fluid Verbal as well as written consent given to me by patient for central line placement for IV pressors Attempt need to place left-sided IJ, I was unable to cannulate the wire. Patient refuses further attempts at central line placement. I did offer patient a femoral line access, patient refuses. Patient now with SBP in the 90' s. Case reviewed with Dr. Moore who accepts pt to her service Critical Care Narrative Aggregate critical care time was 30 minutes. Time to perform other separately billable procedures was not included in the critical care time. My time did not include minutes spent treating any other patients simultaneously or on activities that did not directly contribute to the patient's treatment. The services I provided to this patient were to treat and/or prevent clinically significant deterioration that could result in: , decompensation, deterioration I provided critical care services requiring my management, as noted below: Chart data review, documentation time, medication orders and management, vital sign assessments/reviewing monitor data, ordering and reviewing lab tests, ordering and interpreting/reviewing x-rays and diagnostic studies, care of the patient and discussion of the patient with the admitting physicians. Procedures Procedure Narrative CENTRAL VENOUS LINE: The site was prepped with Betadine and sterilely draped. It was infiltrated with 1% lidocaine plain. The deep vein was cannulated using normal Seldinger technique. A triple lumen central line was attempted to be placed in the left IJ site. Guide wire was unable to be passed through. After 3 attempts, patient refused further attempts at central venous access Diagnosis Primary Impression: Septic shock Admitting Information Admitting Physician Requests: Admit Monika Altamirano DO Jun 10, 2017 15:59
[2017-06-10] MEDS ORDERED: DEXTROSE 50% IN WATER 50 ML SYRINGE IV PUSH ONE ×3 (16:00→19:00)
--- NOTE | 2017-06-10 16:01 | RADRPT ---
EXAM DATE/TIME: 06/10/2017 15:36 [facility] COMPARISON: CHEST SINGLE AP, October 31, 2015, 22:21. CHEST SINGLE AP, March 16, 2017, 17:51. INDICATIONS : Fever. MEDICAL HISTORY : Myocardial infarction. SURGICAL HISTORY : None. ENCOUNTER: Initial ACUITY: 1 day PAIN SCORE: 0/10 LOCATION: chest FINDINGS: A single portable frontal view the chest shows chronic interstitial changes involving both lung bases . These are stable. No intra-alveolar infiltrates. No effusion. Heart is normal in size. Bony structu res are unremarkable. CONCLUSION: 1. Stable chronic interstitial changes. 2. No acute infiltrate. Narendra Barreto Jr., MD on June 10, 2017 at 15:58 Board Certified Radiologist. This report was verified electronically.
[2017-06-10 16:10] LABS: BASOPHIL % 0.4 % (0.0-2.0); EOSINOPHIL % 0.2 % (0.0-4.0); HEMATOCRIT 48.5 % (39.0-51.0); LYMPH % 2.2 % (9.0-44.0); LYMPHOCYTE # 0.2 TH/MM3 (1.0-4.8); MEAN CELL VOLUME 96.5 FL (80.0-100.0); MEAN CORPUSCULAR HEMOGLOBIN 32.6 PG (27.0-34.0); MEAN CORPUSCULAR HGB CONC 33.7 % (32.0-36.0); MONO % 4.8 % (0.0-8.0); NEUT % 92.4 % (16.0-70.0); PLATELET COUNT 93 TH/MM3 (150-450); RED BLOOD COUNT 5.02 MIL/MM3 (4.50-5.90); RED CELL DISTRIBUTION WIDTH 18.9 % (11.6-17.2); WHITE BLOOD COUNT 10.8 TH/MM3 (4.0-11.0)
[2017-06-10 16:21] LABS: APTT (PATIENT) 27.5 SEC (24.3-30.1); INTERNATIONAL NORMALIZED RATIO 1.3 RATIO; PROTHROMBIN TIME - PATIENT 14.5 SEC (9.8-11.6)
[2017-06-10 16:25] LABS: HEMO FLAGS AUTO DIFF
[2017-06-10 16:30] LABS: ALT (GPT) 19 U/L (12-78); ANION GAP 16 MEQ/L (5-15); AST (GOT) 20 U/L (15-37); BICARBONATE 24.4 MEQ/L (21.0-32.0); BLOOD UREA NITROGEN 42 MG/DL (7-18); CHLORIDE 97 MEQ/L (98-107); GLOMERULAR FILTRATION RATE 6 ML/MIN (>89); POTASSIUM 3.3 MEQ/L (3.5-5.1); SODIUM (NA) 137 MEQ/L (136-145)
[2017-06-10 16:34] LABS: ALKALINE PHOSPHATASE 76 U/L (45-117); CREATINE KINASE 67 U/L (39-308); TOTAL BILIRUBIN ADULT 0.8 MG/DL (0.2-1.0)
[2017-06-10 17:18] LABS: SCAN/DIFF AUTO DIFF CONFIRMED
--- NOTE | 2017-06-10 18:29 | HHI.HP ---
HPI Service Critical Care Medicine Primary Care Physician Unknown Admission Diagnosis Septic shock Diagnosis: Travel History International Travel<30 Days: No Contact w/Intl Traveler <30 Da: No Traveled to Known Affected Are: No Sepsis Criteria SIRS Criteria (2 or more): Temp > 100.9 or < 96.8 Sepsis Criteria (SIRS+source): Infect source susp/known Severe Sepsis (+one): Hypotension, Lactate >2 Septic Shock Criteria: Unresponsive to 30ml/kg fluid bolus Criteria Outcome: Meets septic shock criteria History of Present Illness 46 year-old -[place] male past medical history of end-stage renal disease diagnosed 9 years ago who is on intermittent hemodialysis Tuesday under the care of CLAU Umaña, peripheral arterial disease status post bilateral BKA, coagulation disorder on chronic anticoagulation with warfarin. He underwent hemodialysis today and he states afterwards he had a fever and felt lightheaded so he came to [facility] emergency department.. His temperature was 103 upon arrival. Heart rate is in the 80s to 90s. He states his blood pressure "typically runs low" in the 80s but blood pressure is 60/47 the emergency department. He states he has had a slight nonproductive cough for 2-3 days. He denies nausea, vomiting, abdominal pain, chest pain, hemoptysis, melena, bright red blood per rectum, headache, neck stiffness, tenderness or drainage at dialysis catheter site, remainder of ROS neg. He has recently been treated for enterococcus in a wound near his right upper extremity fistula. He was discharged 03/21/17 with wound care and was on vancomycin with vascular surgery followup. He states his wound has healed and he believes he is no longer receiving vancomycin at dialysis. He is a challenging historian. Dr. Altamirano has attempted L IJ CVL access unsuccessfully. Patient states he has multiple prior failed attempts at central vascular access and that his IJ and subclavians are "clotted off". He has h/o SVC thrombus in 2009 and he states h/o unsuccessful attempt at access in R femoral as well. He has a left femoral tunneled dialysis catheter exchange 09/13/16 by IR and 05/16/17. Blood cultures have been obtained in the emergency department. He has been given cefepime and vancomycin. His received 2 L normal saline in the ED. Started midodrine and started low dose phenylephrine via peripheral IV after discussion of risks and benefits with patient and his mother. In addition, he was hypoglycemic on arrival with glucose in 20s, given amp dextrose and glucose 54. Not diabetic or on insulin/ oral hypoglycemics. Past Family Social History Allergies: Coded Allergies: iodine (Unverified Allergy, Severe, blisters, 06/10/17) morphine (Unverified Allergy, Severe, Itching, 06/10/17) potassium iodide (Unverified Allergy, Severe, blisters, 06/10/17) povidone-iodine (Unverified Allergy, Severe, blisters, 06/10/17) sodium iodide (Unverified Allergy, Severe, blisters, 06/10/17) sodium iodide (Unverified Allergy, Severe, blisters, 06/10/17) *MDRO Multi-Drug Resistant Organism (Verified Adverse Reaction, Unknown, ) MRSA (sputum) - 01/2008 MRSA PCR Screen NEGAVTIVE- 09/10/16 & 09/14/16 Cleared per Infection Control Past Medical History Coagulation disorder 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 Juan Manuel Merlos) PAD GERD ?h/o asthma Past Surgical History Bilateral BKA about 15 years ago Right upper extremity AV fistula Reported Medications Warfarin 4 milligrams by mouth daily Xanax 1 mg by mouth every 8 hours as needed for anxiety Renagel 1600 mg by mouth 3 times a day Protonix 20 mEq by mouth daily Family History Patient states no family history of end-stage renal disease or coronary artery disease Social History Denies history of tobacco alcohol or illicit drug use. He is accompanied by his mother in the ED. Not Physical Exam Vital Signs Vital Signs Date Time Temp Pulse Resp B/P (MAP) Pulse Ox O2 Delivery O2 Flow Rate FiO2 06/10/17 18:11 106 17 91/51 (64) 06/10/17 16:19 97.8 100 15 79/43 (55) 98 Nasal Cannula 2.00 06/10/17 15:58 104 26 75/40 (52) 100 Nasal Cannula 2.00 06/10/17 15:32 98.9 93 19 82/50 (61) 95 2.00 06/10/17 15:06 113 18 Room Air 06/10/17 15:06 98.9 114 19 60/40 (47) Nasal Cannula 2.00 06/10/17 15:06 98.9 113 19 60/40 (47) Nasal Cannula 2.00 06/10/17 15:06 Nasal Cannula 2.00 06/10/17 13:43 103.0 133 22 82/51 (61) 92 Physical Exam GENERAL: Chronically ill-appearing male who is sitting up in ED stretcher, alert and conversant. SKIN: Warm to touch, dry. HEAD: Atraumatic. Normocephalic. EYES: Pupils 2 mm and round and reactive bilaterally. No scleral icterus. No injection or drainage. ENT: No nasal bleeding or discharge. Mucous membranes pink. NECK: Trachea midline. No meningismus CARDIOVASCULAR: Regular rate and rhythm, sinus rhythm on monitor. No murmurs rubs or gallops. RESPIRATORY: No accessory muscle use. Clear to auscultation. Breath sounds equal bilaterally. On room air GASTROINTESTINAL: Abdomen soft, non-tender, nondistended. Bowel sounds present MUSCULOSKELETAL: Extremities without clubbing, cyanosis, or edema. Status post bilateral BKA with incisions healed. Right upper extremity AV fistula with palpable pulse. Left femoral tunnel catheter in place with no obvious drainage , erythema, tenderness. NEUROLOGICAL: Awake and alert. No obvious cranial nerve deficits. Motor grossly within normal limits. Normal speech. Moving all extremities to command. Intermittently speaking on the telephone during evaluation Laboratory Laboratory Tests Test 06/10/17 15:15 White Blood Count 10.8 Red Blood Count 5.02 Hemoglobin 16.3 Hematocrit 48.5 Mean Corpuscular Volume 96.5 Mean Corpuscular Hemoglobin 32.6 Mean Corpuscular Hemoglobin Concent 33.7 Red Cell Distribution Width 18.9 Platelet Count 93 Mean Platelet Volume 8.9 Neutrophils (%) (Auto) 92.4 Lymphocytes (%) (Auto) 2.2 Monocytes (%) (Auto) 4.8 Eosinophils (%) (Auto) 0.2 Basophils (%) (Auto) 0.4 Neutrophils # (Auto) 10.0 Lymphocytes # (Auto) 0.2 Monocytes # (Auto) 0.5 Eosinophils # (Auto) 0.0 Basophils # (Auto) 0.0 CBC Comment AUTO DIFF Differential Comment AUTO DIFF CONFIRMED Prothrombin Time 14.5 Prothromb Time International Ratio 1.3 Activated Partial Thromboplast Time 27.5 Blood Urea Nitrogen 42 Creatinine 11.44 Random Glucose 67 Total Protein 9.1 Albumin 3.8 Calcium Level 9.3 Alkaline Phosphatase 76 Aspartate Amino Transf (AST/SGOT) 20 Alanine Aminotransferase (ALT/SGPT) 19 Total Bilirubin 0.8 Sodium Level 137 Potassium Level 3.3 Chloride Level 97 Carbon Dioxide Level 24.4 Anion Gap 16 Estimat Glomerular Filtration Rate 6 Total Creatine Kinase 67 Troponin I LESS THAN 0.02 Date/Time Source Procedure Growth Status 06/10/17 15:25 Blood Peripheral Aerobic Blood Culture Pending Received 06/10/17 15:25 Blood Peripheral Anaerobic Blood Culture Pending Received Result Diagram: 06/10/17 1515 06/10/17 1515 Septic Shock Reassessment Heart: Regular rate and rhythm Lungs: Clear Skin: Warm Peripheral Pulses: Weak Right Radial Weak Left Radial Absent Right Dorsalis Pedis Absent Left Dorsalis Pedis Absent Right Posterior Tibial Absent Left Posterior Tibial Capillary Refill: >2 seconds Caprini VTE Risk Assessment Caplorii VTE Risk Assessment: Mod/High Risk (score >= 2) VTE [facility] Contraindication: Bilateral amputee Caprini Risk Assessment Model Point Value = 1 Point Value = 2 Point Value = 3 Point Value = 5 Age 41-60 Minor surgery BMI > 25 kg/m2 Swollen legs Varicose veins or History of unexplained or recurrent spontaneous Oral contraceptives or hormone replacement Sepsis (< 1 month) Serious lung disease, including pneumonia (< 1 month) Abnormal pulmonary function Acute myocardial infarction Congestive heart failure (< 1 month) History of inflammatory bowel disease Medical patient at bed rest Age 61-74 Arthroscopic surgery Major open surgery (> 45 min) Laparoscopic surgery (> 45 min) Malignancy Confined to bed (> 72 hours) Immobilizing plaster cast Central venous access Age >= 75 History of VTE Family history of VTE Factor V Leiden Prothrombin [id number] Lupus anticoagulant Anticardiolipin antibodies Elevated serum homocysteine Heparin-induced thrombocytopenia Other congenital or acquired thrombophilia Stroke (< 1 month) Elective arthroplasty Hip, pelvis, or leg fracture Acute spinal cord injury (< 1 month) Prophylaxis Regimen Total Risk Factor Score Risk Level Prophylaxis Regimen 0-1 Low Early ambulation 2 Moderate Order ONE of the following: *Sequential Compression Device (SCD) *Heparin 5000 units SQ BID 3-4 Higher Order ONE of the following medications: *Heparin 5000 units SQ TID *Enoxaparin/Lovenox 40 mg SQ daily (WT < 150 kg, CrCl > 30 mL/min) *Enoxaparin/Lovenox 30 mg SQ daily (WT < 150 kg, CrCl > 10-29 mL/min) *Enoxaparin/Lovenox 30 mg SQ BID (WT < 150 kg, CrCl > 30 mL/min) AND/OR *Sequential Compression Device (SCD) 5 or more Highest Order ONE of the following medications: *Heparin 5000 units SQ TID (Preferred with Epidurals) *Enoxaparin/Lovenox 40 mg SQ daily (WT < 150 kg, CrCl > 30 mL/min) *Enoxaparin/Lovenox 30 mg SQ daily (WT < 150 kg, CrCl > 10-29 mL/min) *Enoxaparin/Lovenox 30 mg SQ BID (WT < 150 kg, CrCl > 30 mL/min) AND *Sequential Compression Device (SCD) Assessment and Plan Assessment and Plan NEURO: Avoid sedatives RESP: ?h/o asthma Chronic bibasilar interstitial opacities on RA Albuterol every 2 hours as needed for wheezing. CV: Septic shock Lactic acidemia Received 2 L normal saline in the emergency department. Albumin 25 g IV now. Start phenylephrine to maintain mean arterial pressure 65-70. (patient's baseline may be 65). Midodrine 10 mg by mouth every 8 hours. Avoid CVL access currently as patient is requiring low dose phenylephrine and h/ o significant vasc access issues not amenable to bedside placement. Prior failed placement in ED. Patient also with prior h/o subclavian thrombus and coagulopathy with subtherapeutic INR so blind placement associated with risk of clot dislodgement. GI: Given evening tray due to hypoglycemia then NPO as may need IR for access/ tunnel cath removal. Normal transaminases FEN/RENAL: ESRD On intermittent hemodialysis Tuesday/Tuesday/Tuesday Nephrology consulted. Patient is known to Dr. Merlos ID: Septic shock Chest x-ray changes appear chronic. Concerning for line infection from hemodialysis catheter. Recent exchange of L femoral access site 05/16 performed in IR. Patient states previously unable to obtain bilateral IJ/subclavian and right femoral sites. Followup blood cultures. If bacteremic, will likely need access exchange but will need IR to assist to determine if any other access options exist versus ?abx lock etc. ID consult to assist with management. On cefepime 2 g IV every 48 hours with dialysis. Received vancomycin in ED. Will dose to a total of 20 mg per KG load. HEME: ?SLE Coagulation d/o VICKI negative in past. On chronic warfarin but INR is subtherapeutic. Will place on heparin as patient will need anticoagulation with short half-life as he may need vascular access procedure ENDO: Hypoglycemia -?secondary to sepsis. D10@20 mill liters per hour. Glucose q1hr with notify M.D. if glucose less than 70 or greater than 170 for titration of drip. PROPH: Heparin drip will provide DVT prophylaxis. Protonix 40 mg by mouth daily for stress ulcer prophylaxis and history of GERD ACCESS: PIV L UE. L femoral tunneled dialysis catheter in place. Discussed with Dr. Altamirano, patient, patient's mother. Patient is hypotensive with septic shock and lactic acidemia with possible line at infection and high risk for further decompensation. I have initiated vasopressors. Will need to remain in ICU. Critical care time 60 minutes exclusive of separately billable procedures. Kailey Moore MD Jun 10, 2017 18:28
[2017-06-10] MEDS ORDERED: SODIUM CHLORIDE 0.9% FLUSH 10 ML FLUSH IV FLUSH PRN (18:30)
[2017-06-10] MEDS ORDERED: RESP: ALBUTEROL 2.5 MG/3 ML NEB (PRN) INH (18:30)
[2017-06-10] MEDS ORDERED: MAGNESIUM HYDROXIDE SUSP 30 ML CUP PO PRN (18:30)
[2017-06-10] MEDS ORDERED: BISACODYL 10 MG SUPP RECTAL PRN (18:30)
[2017-06-10] MEDS ORDERED: LACTULOSE SYRUP 20 GM/30 ML CUP PO PRN (18:30)
[2017-06-10] MEDS ORDERED: SENNOSIDES 8.6 MG TAB PO PRN (18:30)
[2017-06-10] MEDS ORDERED: TERBUTALINE INJ 1 MG/ML AMP SQ PRN (18:30)
[2017-06-10] MEDS ORDERED: MISCELLANEOUS NURSING INFORMATION XX SCH (18:30)
[2017-06-10] MEDS ORDERED: CHLORHEXIDINE GLUCONATE 2 % 1 PACK (2 CLOTHS) TOP PRN (18:30)
[2017-06-10] MEDS ORDERED: DEXTROSE 10% INJ 1,000 ML IV SCH (19:00)
[2017-06-10] MEDS ORDERED: PHENYLEPHRINE INJ 80 MG in DEXTROSE 5% IN WATE 500 ML INJ 492 ML IV PRN ×2 (20:00)
[2017-06-10] MEDS ORDERED: VANCOMYCIN INJ 500 MG in SODIUM CHLORIDE 0.9% INJ 100 ML IV ONE (20:00)
[2017-06-10] MEDS ORDERED: PHENYLEPHRINE HCL 10 MG/ML VIAL ONE (20:31)
[2017-06-10] MEDS: DOCUSATE SODIUM 50 MG/SENNA 8.6 MG TAB PO SCH (21:00)
[2017-06-10 21:37] LABS: LACTIC ACID GHOST NOT REPORTABLE
[2017-06-10] MEDS ORDERED: ALBUMIN HUMAN 25% 25 GM/100 ML BAGP IV ONE (23:00)
[2017-06-10] MEDS: PANTOPRAZOLE SOD 40 MG DELAYED RELEASE TAB PO SCH (23:29)
[2017-06-10] MEDS: MIDODRINE 5 MG TAB PO SCH (23:29)
[2017-06-10] MEDS: CHLORHEXIDINE GLUCONATE 2 % 1 PACK (2 CLOTHS) TOP SCH (23:30)
[2017-06-10] MEDS: SODIUM CHLORIDE 0.9% FLUSH 10 ML FLUSH IV FLUSH SCH (23:31)
[2017-06-11] VITALS (49 sets, daily range): BP systolic 67–147; BP diastolic 40–83; PULSE 41–85; RESP 10–43; TEMP 97.5–99.6; O2SAT 82–100
[2017-06-11 02:48] LABS: INTERNATIONAL NORMALIZED RATIO 1.3 RATIO; PROTHROMBIN TIME - PATIENT 15.1 SEC (9.8-11.6)
[2017-06-11] MEDS: MIDODRINE 5 MG TAB PO SCH ×3 (04:42→21:31)
[2017-06-11] MEDS: HEPARIN-D5W 25,000 U/250 ML 250 ML IV PRN (04:49)
[2017-06-11] MEDS: DOCUSATE SODIUM 50 MG/SENNA 8.6 MG TAB PO SCH ×2 (09:20→21:31)
[2017-06-11] MEDS: SODIUM CHLORIDE 0.9% FLUSH 10 ML FLUSH IV FLUSH SCH ×2 (09:21→21:31)
[2017-06-11] MEDS: PANTOPRAZOLE SOD 40 MG DELAYED RELEASE TAB PO SCH (09:21)
--- NOTE | 2017-06-11 09:39 | PD.CONS ---
History of Present Illness Service Infectious disease Consult Requested By Dr. Bailey Moore Reason for Consult Evaluate patient with possible left groin permacath infection Primary Care Physician Unknown Diagnoses: History of Present Illness Patient seen and examined. Records reviewed. Patient is a 46-year-old male, with known ESRD, on hemodialysis Tuesday and Tuesday, presented to the hospital complaining of low blood pressure, and fever. Patient states his blood pressure is generally on the low side, but usually runs around 80-90 systolic. He had his usual hemodialysis on the day of admission, and his vitals were stable at that time. When he went home however, he felt like he had a fever, and he's check his blood pressure and it was in the 60s. He denies any respiratory complaint. He denies any shortness of breath. No abdominal pain, nausea vomiting or diarrhea. He has no significant urine output. He has not been around anyone sick. In the emergency room he had a blood pressure in the 60s, and he was febrile up to 103. His WBC is normal. Sedimentation rate 1. Lactic acid 4.2, and it's down to 1.1 today. Her temperatures are better. He is on pressors currently. He offers no specific complaint at the time my exam. Patient has known central venous occlusion, and venous access for his hemodialysis has been a problem. He currently has a left groin permacath, and it was last exchange last May 16. He has a right upper extremity AV fistula that was placed in February, and in March, he was admitted and treated for a wound infection in his AV fistula incision that grew out enterococcus. His blood cultures were negative at that time. He was treated aggressively with IV antibiotic and he completed treatment back in April. The wound has completely healed. His AV fistula has recently been access the last 2 times he had hemodialysis. Only one of the limb was access, and the groin permacath was also used. Infectious disease consultation has been requested to evaluate the patient with possible left groin permacath infection. Review of Systems Constitutional: COMPLAINS OF: Fever, Chills, DENIES: Fatigue, Change in appetite Eyes: DENIES: Eye pain Ears, nose, mouth, throat: DENIES: Nasal discharge, Oral lesions, Throat pain, Ear Pain, Running Nose, Sinus Pain Respiratory: DENIES: Cough, Shortness of breath Cardiovascular: DENIES: Chest pain, Palpitations, Syncope Gastrointestinal: DENIES: Abdominal pain, Diarrhea, Nausea, Vomiting, Difficulty Swallowing Musculoskeletal: DENIES: Joint pain, Joint Swelling Integumentary: DENIES: Rash Neurologic: DENIES: Headache, Localized weakness Psychiatric: DENIES: Confusion, Hallucinations Past Family Social History Allergies: Coded Allergies: iodine (Unverified Allergy, Severe, blisters, 06/10/17) morphine (Unverified Allergy, Severe, Itching, 06/10/17) potassium iodide (Unverified Allergy, Severe, blisters, 06/10/17) povidone-iodine (Unverified Allergy, Severe, blisters, 06/10/17) sodium iodide (Unverified Allergy, Severe, blisters, 06/10/17) sodium iodide (Unverified Allergy, Severe, blisters, 06/10/17) *MDRO Multi-Drug Resistant Organism (Verified Adverse Reaction, Unknown, ) MRSA (sputum) - 01/2008 MRSA PCR Screen NEGAVTIVE- 09/10/16 & 09/14/16 Cleared per Infection Control Past Medical History ESRD on hemodialysis SLE E CAD Hypertension Severe PVD History of DVT Anemia Hyperparathyroidism of renal origin Previous dialysis catheter line infection Known central venous occlusion Past Surgical History Bilateral BKA 2 fingers amputated Previous dialysis access in his left upper extremity Recent AV fistula creation in the right upper extremity Previous revascularization procedures for PVD Active Ordered Medications Albuterol Dulcolax Cefepime Heparin Lactulose MOM ProAmatine Zofran Protonix Jonh-Synephrine Angelika-Colace Senokot Vancomycin Family History Hypertension Social History Ex-smoker quit 12 years ago Denies alcohol abuse Denies illicit drugs Lives with his mother Physical Exam Vital Signs Vital Signs Date Time Temp Pulse Resp B/P (MAP) Pulse Ox O2 Delivery O2 Flow Rate FiO2 06/11/17 06:00 85 06/11/17 04:00 98.9 69 19 114/58 (76) 100 06/11/17 04:00 69 06/11/17 02:00 78 06/11/17 00:00 83 06/11/17 00:00 99.6 83 26 105/62 (76) 100 06/10/17 23:28 90 99/63 06/10/17 22:00 90 06/10/17 20:31 80 118/63 06/10/17 20:30 98.0 100 14 85/51 (62) 100 06/10/17 20:24 06/10/17 19:39 111 18 88/52 (64) 91 Room Air 06/10/17 18:39 111 82/58 (66) 06/10/17 18:11 106 17 91/51 (64) 06/10/17 16:19 97.8 100 15 79/43 (55) 98 Nasal Cannula 2.00 06/10/17 15:58 104 26 75/40 (52) 100 Nasal Cannula 2.00 06/10/17 15:32 98.9 93 19 82/50 (61) 95 2.00 06/10/17 15:06 113 18 Room Air 06/10/17 15:06 98.9 114 19 60/40 (47) Nasal Cannula 2.00 06/10/17 15:06 98.9 113 19 60/40 (47) Nasal Cannula 2.00 06/10/17 15:06 Nasal Cannula 2.00 06/10/17 13:43 103.0 133 22 82/51 (61) 92 Physical Exam GENERAL: Patient is a well-nourished, well-developed male, awake and alert, not in respiratory distress. SKIN: Warm and dry. No generalized rash, no ecchymoses and no evidence of embolic lesions. HEAD: Atraumatic. Normocephalic. No temporal wasting, or tenderness. EYES: [place] conjunctiva. No petechia or hemorrhage. Pupils equal, round and reactive to light. Extraocular movements full and intact. No scleral icterus. No injection or drainage. EARS, NOSE AND THROAT: Nose without bleeding or purulent nasal discharge. No sinus tenderness. Mucous membranes pink and moist. No oral lesions noted. No exudate. No oral thrush. NECK: Trachea midline. Supple and not tender, no meningeal signs CARDIOVASCULAR: Regular rate and rhythm. No murmurs, rubs or gallops heard RESPIRATORY: Clear to auscultation. Breath sounds equal bilaterally. No rales , wheezing or rhonchi ABDOMEN: Soft, non-tender, nondistended. Bowel sounds present and normoactive. No guarding. No rebound. No organomegaly. EXTREMITIES: No clubbing, cyanosis, or edema. Has bilaBKA, well healed stump. L thigh permacath site with no evidence of infection NEUROLOGICAL: Awake and alert. Cranial nerves grossly intact. Motor grossly within normal limits. PSYCHIATRIC: Normal affect, calm and cooperative. LINE: No evidence of infection - L groin permacath Laboratory Laboratory Tests Test 06/10/17 15:15 06/10/17 19:22 06/10/17 20:40 06/11/17 01:53 White Blood Count 10.8 Red Blood Count 5.02 Hemoglobin 16.3 Hematocrit 48.5 Mean Corpuscular Volume 96.5 Mean Corpuscular Hemoglobin 32.6 Mean Corpuscular Hemoglobin Concent 33.7 Red Cell Distribution Width 18.9 Platelet Count 93 Mean Platelet Volume 8.9 Neutrophils (%) (Auto) 92.4 Lymphocytes (%) (Auto) 2.2 Monocytes (%) (Auto) 4.8 Eosinophils (%) (Auto) 0.2 Basophils (%) (Auto) 0.4 Neutrophils # (Auto) 10.0 Lymphocytes # (Auto) 0.2 Monocytes # (Auto) 0.5 Eosinophils # (Auto) 0.0 Basophils # (Auto) 0.0 CBC Comment AUTO DIFF Differential Comment AUTO DIFF CONFIRMED Prothrombin Time 14.5 15.1 Prothromb Time International Ratio 1.3 1.3 Activated Partial Thromboplast Time 27.5 Blood Urea Nitrogen 42 Creatinine 11.44 Random Glucose 67 Total Protein 9.1 Albumin 3.8 Calcium Level 9.3 Alkaline Phosphatase 76 Aspartate Amino Transf (AST/SGOT) 20 Alanine Aminotransferase (ALT/SGPT) 19 Total Bilirubin 0.8 Sodium Level 137 Potassium Level 3.3 Chloride Level 97 Carbon Dioxide Level 24.4 Anion Gap 16 Estimat Glomerular Filtration Rate 6 Total Creatine Kinase 67 Troponin I LESS THAN 0.02 Lactic Acid Level 4.2 1.1 Nasal Screen MRSA (PCR) MRSA NOT DETECTED Fibrinogen 330 Date/Time Source Procedure Growth Status 06/10/17 15:25 Blood Peripheral Aerobic Blood Culture Pending Received 06/10/17 15:25 Blood Peripheral Anaerobic Blood Culture Pending Received Result Diagram: 06/10/17 1515 06/10/17 1515 Imaging RADIOLOGY STUDIES/FILMS REVIEWED Chest X-Ray 06/10/17 1436 Signed Impressions: Service Date/Time: Saturday, June 10, 2017 15:36 - CONCLUSION: 1. Stable chronic interstitial changes. 2. No acute infiltrate. Narendra Barreto Jr., MD Assessment and Plan Assessment and Plan IMPRESSION Sepsis with shock on presentation - non-localizing, worrisome for line related sepsis - has had L groin permacath ESRD on HD MWF - has AVF LUE, S/P 6 weeks IV Abx for wound infection post-op Central venous occlusion, problem with venous access PVD, S/P Carlos BKA SLE RECOMMENDATION Follow C/S Continue current Abx: Vanco and Cefepime Will have to Rx with IV Abx for possible line related infection until the permacath can be removed Follow temps On pressors for BP Monitor progress I will follow along with you Thank you for this consultation Discussed Condition With D/W Louann Hart MD Jun 11, 2017 09:39
--- NOTE | 2017-06-11 09:48 | HHI.CCPN ---
Subjective Remarks/Hospital Course 46 year-old -[place] male past medical history of end-stage renal disease diagnosed 9 years ago who is on intermittent hemodialysis Tuesday under the care of CLAU Umaña, peripheral arterial disease status post bilateral BKA, coagulation disorder on chronic anticoagulation with warfarin. He underwent hemodialysis today and he states afterwards he had a fever and felt lightheaded so he came to [facility] emergency department.. His temperature was 103 upon arrival. Heart rate is in the 80s to 90s. He states his blood pressure "typically runs low" in the 80s but blood pressure is 60/47 the emergency department. He states he has had a slight nonproductive cough for 2-3 days. He denies nausea, vomiting, abdominal pain, chest pain, hemoptysis, melena, bright red blood per rectum, headache, neck stiffness, tenderness or drainage at dialysis catheter site, remainder of ROS neg. He has recently been treated for enterococcus in a wound near his right upper extremity fistula. He was discharged 03/21/17 with wound care and was on vancomycin with vascular surgery followup. He states his wound has healed and he believes he is no longer receiving vancomycin at dialysis. He is a challenging historian. Dr. Altamirano has attempted L IJ CVL access unsuccessfully. Patient states he has multiple prior failed attempts at central vascular access and that his IJ and subclavians are "clotted off". He has h/o SVC thrombus in 2009 and he states h/o unsuccessful attempt at access in R femoral as well. He has a left femoral tunneled dialysis catheter exchange 09/13/16 by IR and 05/16/17. Blood cultures have been obtained in the emergency department. He has been given cefepime and vancomycin. His received 2 L normal saline in the ED. Started midodrine and started low dose phenylephrine via peripheral IV after discussion of risks and benefits with patient and his mother. In addition, he was hypoglycemic on arrival with glucose in 20s, given amp dextrose and glucose 54. Not diabetic or on insulin/ oral hypoglycemics. 06/11 Patient is lying in bed in NAD. Afebrile. On Neosyn 40 mics. s/p HD yesterday. Objective Vital Signs Date Time Temp Pulse Resp B/P (MAP) Pulse Ox O2 Delivery O2 Flow Rate FiO2 06/11/17 06:00 85 06/11/17 04:00 98.9 19 114/58 (76) 100 06/10/17 19:39 Room Air 06/10/17 16:19 2.00 Intake and Output 06/11/17 06/11/17 06/11/17 07:59 15:59 23:59 Intake Total 988 ml Balance 988 ml Result Diagram: 06/10/17 1515 06/10/17 1515 Other Results Laboratory Tests Test 06/10/17 15:15 06/10/17 19:22 06/10/17 20:40 06/11/17 01:53 White Blood Count 10.8 TH/MM3 Red Blood Count 5.02 MIL/MM3 Hemoglobin 16.3 GM/DL Hematocrit 48.5 % Mean Corpuscular Volume 96.5 FL Mean Corpuscular Hemoglobin 32.6 PG Mean Corpuscular Hemoglobin Concent 33.7 % Red Cell Distribution Width 18.9 % Platelet Count 93 TH/MM3 Mean Platelet Volume 8.9 FL Neutrophils (%) (Auto) 92.4 % Lymphocytes (%) (Auto) 2.2 % Monocytes (%) (Auto) 4.8 % Eosinophils (%) (Auto) 0.2 % Basophils (%) (Auto) 0.4 % Neutrophils # (Auto) 10.0 TH/MM3 Lymphocytes # (Auto) 0.2 TH/MM3 Monocytes # (Auto) 0.5 TH/MM3 Eosinophils # (Auto) 0.0 TH/MM3 Basophils # (Auto) 0.0 TH/MM3 CBC Comment AUTO DIFF Differential Comment AUTO DIFF CONFIRMED Prothrombin Time 14.5 SEC 15.1 SEC Prothromb Time International Ratio 1.3 RATIO 1.3 RATIO Activated Partial Thromboplast Time 27.5 SEC Blood Urea Nitrogen 42 MG/DL Creatinine 11.44 MG/DL Random Glucose 67 MG/DL Total Protein 9.1 GM/DL Albumin 3.8 GM/DL Calcium Level 9.3 MG/DL Alkaline Phosphatase 76 U/L Aspartate Amino Transf (AST/SGOT) 20 U/L Alanine Aminotransferase (ALT/SGPT) 19 U/L Total Bilirubin 0.8 MG/DL Sodium Level 137 MEQ/L Potassium Level 3.3 MEQ/L Chloride Level 97 MEQ/L Carbon Dioxide Level 24.4 MEQ/L Anion Gap 16 MEQ/L Estimat Glomerular Filtration Rate 6 ML/MIN Total Creatine Kinase 67 U/L Troponin I LESS THAN 0.02 NG/ML Lactic Acid Level 4.2 mmol/L 1.1 mmol/L Nasal Screen MRSA (PCR) MRSA NOT DETECTED Fibrinogen 330 mg/dL Imaging Last Impressions Chest X-Ray 06/10/17 1436 Signed Impressions: Service Date/Time: Saturday, June 10, 2017 15:36 - CONCLUSION: 1. Stable chronic interstitial changes. 2. No acute infiltrate. Narendra Barreto Jr., MD Objective Remarks GENERAL: Chronically ill-appearing male who is sitting up in ED stretcher, alert and conversant. SKIN: Warm to touch, dry. HEAD: Atraumatic. Normocephalic. EYES: Pupils 2 mm and round and reactive bilaterally. No scleral icterus. No injection or drainage. ENT: No nasal bleeding or discharge. Mucous membranes pink. NECK: Trachea midline. No meningismus CARDIOVASCULAR: Regular rate and rhythm, sinus rhythm on monitor. No murmurs rubs or gallops. RESPIRATORY: No accessory muscle use. Clear to auscultation. Breath sounds equal bilaterally. On room air GASTROINTESTINAL: Abdomen soft, non-tender, nondistended. Bowel sounds present MUSCULOSKELETAL: Extremities without clubbing, cyanosis, or edema. Status post bilateral BKA with incisions healed. Right upper extremity AV fistula with palpable pulse. Left femoral tunnel catheter in place with no obvious drainage , erythema, tenderness. NEUROLOGICAL: Awake and alert. No obvious cranial nerve deficits. Motor grossly within normal limits. Normal speech. Moving all extremities to command. Intermittently speaking on the telephone during evaluation A/P Assessment and Plan NEURO: Avoid sedatives. Awake and alert RESP: ?h/o asthma Chronic bibasilar interstitial opacities on RA Albuterol every 2 hours as needed for wheezing. CXR: Chronic interstitial changes, no acute infiltrate CV: Septic shock Lactic acidemia- cleared Received 2 L normal saline in the emergency department. Wean off Neosyn monitor HR and BP keep MAP>65mmHg. Midodrine [address] on stress dose steroids HC 50mg IV Q6 Patient has h/o significant vasc access issues not amenable to bedside placement. Prior failed placement in ED. Patient also with prior h/o subclavian thrombus and coagulopathy GI: May need IR for access/tunnel cath removal. Start PO heart healthy diet FEN/RENAL: ESRD On IHD Tuesday/Tuesday/Tuesday Nephrology consulted. Patient is known to Dr. Merlos Monitor renal function, avoid nephrotoxins ID: Septic shock Chest x-ray changes appear chronic. Concerning for line infection from hemodialysis catheter. Recent exchange of L femoral access site 05/16 performed in IR. Patient states previously unable to obtain bilateral IJ/subclavian and right femoral sites. Followup blood cultures. If bacteremic, will likely need access exchange but will need IR to assist to determine if any other access options exist versus ?abx lock etc. ID consulted to assist with management. On cefepime 2 g IV every 48 hours with dialysis. Received vancomycin in ED. HEME: ?SLE Coagulation d/o VICKI negative in past. On chronic warfarin but INR is subtherapeutic. Continue heparin drip and monitor PTT ENDO: Hypoglycemia -?secondary to sepsis. D10@20 mill liters per hour. Glucose q1hr Place on stress dose steroids- HC 50mg IV Q6 PROPH: Heparin drip will provide DVT prophylaxis. Protonix 40 mg by mouth daily for stress ulcer prophylaxis and history of GERD ACCESS: PIV L UE. L femoral tunneled dialysis catheter in place. Level 3 Dania Greco MD Jun 11, 2017 09:48
--- NOTE | 2017-06-11 09:51 | EKG ---
Date Performed: 06/10/2017 Time Performed: 15:34:21 PTAGE: 46 years EKG: Sinus rhythm NORMAL ECG PREVIOUS TRACING : 01/20/2017 10.04 DOCTOR: Ehsan Hickey Interpretating Date/Time 06/11/2017 09:49:51
[2017-06-11] MEDS ORDERED: DEXTROSE 50% IN WATER 50 ML VIAL(D50) IV PRN (10:00)
[2017-06-11] MEDS ORDERED: GLUCAGON 1 MG/ML VIAL OTHER PRN (10:00)
[2017-06-11] MEDS: INSULIN NovoLIN REGULAR SUPPLEMENTAL SCALE SQ SCH ×6 (10:00→22:35)
[2017-06-11 11:16] LABS: AUTOMATED NEUTROPHIL # 15.4 TH/MM3 (1.8-7.7); BASOPHIL # 0.1 TH/MM3 (0-0.2); BASOPHIL % 0.5 % (0.0-2.0); EOSINOPHIL % 0.2 % (0.0-4.0); HEMATOCRIT 46.3 % (39.0-51.0); LYMPH % 2.2 % (9.0-44.0); LYMPHOCYTE # 0.4 TH/MM3 (1.0-4.8); MEAN CELL VOLUME 99.5 FL (80.0-100.0); MEAN CORPUSCULAR HGB CONC 32.2 % (32.0-36.0); MONO % 7.1 % (0.0-8.0); PLATELET COUNT 78 TH/MM3 (150-450); RED BLOOD COUNT 4.65 MIL/MM3 (4.50-5.90); RED CELL DISTRIBUTION WIDTH 19.4 % (11.6-17.2); WHITE BLOOD COUNT 17.1 TH/MM3 (4.0-11.0)
[2017-06-11 11:23] LABS: INTERNATIONAL NORMALIZED RATIO 1.4 RATIO; PROTHROMBIN TIME - PATIENT 15.2 SEC (9.8-11.6)
[2017-06-11 11:26] LABS: HEMO FLAGS AUTO DIFF
[2017-06-11 11:48] LABS: ALKALINE PHOSPHATASE 69 U/L (45-117); ALT (GPT) 20 U/L (12-78); ANION GAP 14 MEQ/L (5-15); AST (GOT) 22 U/L (15-37); BICARBONATE 20.9 MEQ/L (21.0-32.0); BLOOD UREA NITROGEN 54 MG/DL (7-18); CHLORIDE 96 MEQ/L (98-107); GLOMERULAR FILTRATION RATE 5 ML/MIN (>89); POTASSIUM 3.7 MEQ/L (3.5-5.1); SODIUM (NA) 131 MEQ/L (136-145); TOTAL BILIRUBIN ADULT 0.9 MG/DL (0.2-1.0)
[2017-06-11 11:56] LABS: BANDS 11 % (0-6); BASOPHILS 1 % (0-2); NEUTROPHIL # MANUAL DIFF 16.1 TH/MM3 (1.8-7.7); PLATELET ESTIMATE SMEAR LOW (NORMAL); PLATELET MORPHOLOGY NORMAL (NORMAL); POLYS (SEG NEUTROPHILS) 83 % (16-70); SCAN/DIFF FINAL DIFF MANUAL; WBC DIFF SAMPLE 100
[2017-06-11 12:31] LABS: APTT (PATIENT) 114.1 SEC (24.3-30.1)
--- NOTE | 2017-06-11 13:17 | PD.CONS ---
HPI Consult Requested By Reason for Consult End-stage renal disease Primary Care Physician Unknown History of Present Illness This patient is a 46-year-old male with a history of end-stage renal disease, SLE, hypertension, peripheral vascular disease as well as secondary hyperparathyroidism of renal disease. Unfortunately the patient has had multiple dialysis accesses including dialysis shunts and dialysis catheters in the past complicated by access failure as well as infection. Patient now has very limited options for dialysis access. Presently we are relying on a left femoral dialysis line for access. Fortunately vessel surgery was able to create a left arm AV dialysis fistula back in February. It has matured somewhat but not ideally and presently we are using one needle in the fistula while port at the dialysis line has been used for dialysis access. We have not yet tried to use 2 needles in the AV dialysis shunt. Patient presents now with a history of chills, fever postdialysis yesterday and was noted to be hypotensive on presentation with blood pressures in the 60s. Patient's blood pressure has since improved however. Blood cultures negative 24 hours at time of consultation. Patient did receive cefepime and vancomycin since admission. Factious disease on board.. Review of Systems Constitutional: COMPLAINS OF: Fatigue, Chills (on presentation since improved.) , DENIES: Diaphoretic episodes, Fever, Weight gain, Weight loss, Dizziness, Change in appetite, Night Sweats Cardiovascular: DENIES: Chest pain, Palpitations, Syncope, Dyspnea on Exertion , PND, Lower Extremity Edema, Orthopnea, Claudication Musculoskeletal: DENIES: Joint pain, Muscle aches, Stiffness, Joint Swelling, Back pain, Neck pain Past Family Social History Allergies: Coded Allergies: iodine (Unverified Allergy, Severe, blisters, 06/10/17) morphine (Unverified Allergy, Severe, Itching, 06/10/17) potassium iodide (Unverified Allergy, Severe, blisters, 06/10/17) povidone-iodine (Unverified Allergy, Severe, blisters, 06/10/17) sodium iodide (Unverified Allergy, Severe, blisters, 06/10/17) sodium iodide (Unverified Allergy, Severe, blisters, 06/10/17) *MDRO Multi-Drug Resistant Organism (Verified Adverse Reaction, Unknown, ) MRSA (sputum) - 01/2008 MRSA PCR Screen NEGAVTIVE- 09/10/16 & 09/14/16 Cleared per Infection Control Past Medical History ESRD on hemodialysis SLE E CAD Hypertension Severe PVD History of DVT Anemia Hyperparathyroidism of renal origin Previous dialysis catheter line infection Known central venous occlusion Past Surgical History Bilateral BKA 2 fingers amputated Previous dialysis access in his left upper extremity Recent AV fistula creation in the right upper extremity Previous revascularization procedures for PVD Reported Medications Reported Meds & Active Scripts Active Vancomycin Inj (Vancomycin HCl) 1,000 Mg Inj 1,000 Mg IV 3XA WEEK WITH DIALYS 40 Days Reported Warfarin 4 Mg Tab 4 Mg PO DAILY Xanax (Alprazolam) 1 Mg Tab 1 Mg PO Q8H PRN Protonix (Pantoprazole Sodium) 20 Mg Tab 20 Mg PO DAILY Renagel (Sevelamer HCl) 800 Mg Tab 1,600 Mg PO TID Family History Noncontributory to current complaint. History of hypertension. Social History No recent history of illicit drug use. Patient is somewhat noncompliant at times with dialysis and medications. Physical Exam Vital Signs Vital Signs Date Time Temp Pulse Resp B/P (MAP) Pulse Ox O2 Delivery O2 Flow Rate FiO2 06/11/17 10:00 66 06/11/17 09:45 68 27 109/60 (76) 100 06/11/17 09:30 70 43 107/62 (77) 98 06/11/17 09:16 74 23 105/56 (72) 100 06/11/17 09:01 66 30 126/68 (87) 100 06/11/17 09:00 65 28 100 06/11/17 08:45 74 23 107/67 (80) 06/11/17 08:30 76 26 101/57 (72) 06/11/17 08:15 69 42 96/74 (81) 89 06/11/17 08:11 71 29 98/60 (73) 88 06/11/17 08:01 98.5 71 38 98/62 (74) 98 06/11/17 08:00 72 43 100 06/11/17 08:00 72 06/11/17 07:46 79 21 106/64 (78) 100 06/11/17 07:38 78 10 73/45 (54) 99 06/11/17 07:30 79 15 67/40 (49) 97 06/11/17 07:15 75 19 91/51 (64) 98 06/11/17 07:00 79 16 89/50 (63) 100 06/11/17 06:00 85 06/11/17 04:00 98.9 69 19 114/58 (76) 100 06/11/17 04:00 69 06/11/17 02:00 78 06/11/17 00:00 83 06/11/17 00:00 99.6 83 26 105/62 (76) 100 06/10/17 23:28 90 99/63 06/10/17 22:00 90 06/10/17 20:31 80 118/63 06/10/17 20:30 98.0 100 14 85/51 (62) 100 06/10/17 20:24 06/10/17 19:39 111 18 88/52 (64) 91 Room Air 06/10/17 18:39 111 82/58 (66) 06/10/17 18:11 106 17 91/51 (64) 06/10/17 16:19 97.8 100 15 79/43 (55) 98 Nasal Cannula 2.00 06/10/17 15:58 104 26 75/40 (52) 100 Nasal Cannula 2.00 06/10/17 15:32 98.9 93 19 82/50 (61) 95 2.00 06/10/17 15:06 113 18 Room Air 06/10/17 15:06 98.9 114 19 60/40 (47) Nasal Cannula 2.00 06/10/17 15:06 98.9 113 19 60/40 (47) Nasal Cannula 2.00 06/10/17 15:06 Nasal Cannula 2.00 06/10/17 13:43 103.0 133 22 82/51 (61) 92 Physical Exam GENERAL: Middle-aged black male lying in bed not in respiratory distress. SKIN: Warm and dry. HEAD: Normocephalic. EYES: No scleral icterus. No injection or drainage. NECK: Supple, trachea midline. No JVD or lymphadenopathy. CARDIOVASCULAR: Regular rate and rhythm without murmurs, gallops, or rubs. RESPIRATORY: Breath sounds equal bilaterally. No accessory muscle use. GASTROINTESTINAL: Abdomen soft, non-tender, nondistended. MUSCULOSKELETAL: No cyanosis, or edema. Status post bilateral BKA. Hemodialysis PermCath present in his left groin drainage noted presently. There is an AV dialysis shunt noted in his left arm. The vein appears to be fairly well-developed distally but subsequently becomes narrower proximally. No CVA tenderness noted. Laboratory Laboratory Tests Test 06/10/17 15:15 06/10/17 19:22 06/10/17 20:40 06/11/17 01:53 White Blood Count 10.8 Red Blood Count 5.02 Hemoglobin 16.3 Hematocrit 48.5 Mean Corpuscular Volume 96.5 Mean Corpuscular Hemoglobin 32.6 Mean Corpuscular Hemoglobin Concent 33.7 Red Cell Distribution Width 18.9 Platelet Count 93 Mean Platelet Volume 8.9 Neutrophils (%) (Auto) 92.4 Lymphocytes (%) (Auto) 2.2 Monocytes (%) (Auto) 4.8 Eosinophils (%) (Auto) 0.2 Basophils (%) (Auto) 0.4 Neutrophils # (Auto) 10.0 Lymphocytes # (Auto) 0.2 Monocytes # (Auto) 0.5 Eosinophils # (Auto) 0.0 Basophils # (Auto) 0.0 CBC Comment AUTO DIFF Differential Comment AUTO DIFF CONFIRMED Prothrombin Time 14.5 15.1 Prothromb Time International Ratio 1.3 1.3 Activated Partial Thromboplast Time 27.5 Blood Urea Nitrogen 42 Creatinine 11.44 Random Glucose 67 Total Protein 9.1 Albumin 3.8 Calcium Level 9.3 Alkaline Phosphatase 76 Aspartate Amino Transf (AST/SGOT) 20 Alanine Aminotransferase (ALT/SGPT) 19 Total Bilirubin 0.8 Sodium Level 137 Potassium Level 3.3 Chloride Level 97 Carbon Dioxide Level 24.4 Anion Gap 16 Estimat Glomerular Filtration Rate 6 Total Creatine Kinase 67 Troponin I LESS THAN 0.02 Lactic Acid Level 4.2 1.1 Nasal Screen MRSA (PCR) MRSA NOT DETECTED Fibrinogen 330 Test 06/11/17 10:48 White Blood Count 17.1 Red Blood Count 4.65 Hemoglobin 14.9 Hematocrit 46.3 Mean Corpuscular Volume 99.5 Mean Corpuscular Hemoglobin 32.0 Mean Corpuscular Hemoglobin Concent 32.2 Red Cell Distribution Width 19.4 Platelet Count 78 Mean Platelet Volume 8.9 Neutrophils (%) (Auto) 90.0 Lymphocytes (%) (Auto) 2.2 Monocytes (%) (Auto) 7.1 Eosinophils (%) (Auto) 0.2 Basophils (%) (Auto) 0.5 Neutrophils # (Auto) 15.4 Lymphocytes # (Auto) 0.4 Monocytes # (Auto) 1.2 Eosinophils # (Auto) 0.0 Basophils # (Auto) 0.1 CBC Comment AUTO DIFF Differential Total Cells Counted 100 Neutrophils % (Manual) 83 Band Neutrophils % 11 Lymphocytes % 1 Monocytes % 4 Basophils % 1 Neutrophils # (Manual) 16.1 Differential Comment FINAL DIFF MANUAL Platelet Estimate LOW Platelet Morphology Comment NORMAL Prothrombin Time 15.2 Prothromb Time International Ratio 1.4 Activated Partial Thromboplast Time 114.1 Blood Urea Nitrogen 54 Creatinine 12.45 Random Glucose 159 Total Protein 8.3 Albumin 3.4 Calcium Level 8.9 Alkaline Phosphatase 69 Aspartate Amino Transf (AST/SGOT) 22 Alanine Aminotransferase (ALT/SGPT) 20 Total Bilirubin 0.9 Sodium Level 131 Potassium Level 3.7 Chloride Level 96 Carbon Dioxide Level 20.9 Anion Gap 14 Estimat Glomerular Filtration Rate 5 Date/Time Source Procedure Growth Status 06/10/17 15:25 Blood Peripheral Aerobic Blood Culture - Preliminary NO GROWTH IN 1 DAY Resulted 06/10/17 15:25 Blood Peripheral Anaerobic Blood Culture - Preliminary NO GROWTH IN 1 DAY Resulted Result Diagram: 06/11/17 1048 06/11/17 1048 Imaging Last 48 hours Impressions Chest X-Ray 06/10/17 1436 Signed Impressions: Service Date/Time: Saturday, June 10, 2017 15:36 - CONCLUSION: 1. Stable chronic interstitial changes. 2. No acute infiltrate. Narendra Barreto Jr., MD Assessment and Plan Problem List: (1) ESRD (end stage renal disease) on dialysis ICD Codes: N18.6 - End stage renal disease; Z99.2 - Dependence on renal dialysis Status: Chronic Plan: Continue to monitor laboratory results. Hemodialysis is scheduled Tuesday and Tuesday but in house dialysis will depend upon metabolic status. Repeat labs tomorrow. Medication should be adjusted for the patient's end-stage renal disease when indicated. Avoid gadolinium. (2) Sepsis ICD Codes: A41.9 - Sepsis, unspecified organism Status: Acute Plan: Working diagnosis is currently hemodialysis line infection however her cultures negative 24 hours. Continue to monitor. I may try to attempt to use his dialysis fistula in house with 2 needles. Until we are certain that this dialysis fistula can be utilized chronically if the current PermCath has to be removed I would rather do a catheter exchange to try to avoid utilizing his current left femoral vein as an access should remove the catheter without replacement as we may lose the left femoral vein completely. I will defer to infectious disease currently in regard to timing of PermCath exchange or possible removal. Continue current antibiotics for the present. (3) Complications, dialysis, catheter, mechanical ICD Codes: T82.49XA - Other complication of vascular dialysis catheter, initial encounter Status: Acute Plan: As above. (4) AVF (arteriovenous fistula) ICD Codes: I77.0 - Arteriovenous fistula, acquired Status: Acute Plan: As indicated the AV fistula appears to be well-developed distally but not so much approximately. May be given to the possible presence of checking for possible access stenosis impeding development of the fistula approximately. I may ask for a vascular surgical opinion regarding this next week. Patient may require an angiogram to clarify the situation. (5) Lupus (systemic lupus erythematosus) ICD Codes: M32.9 - Systemic lupus erythematosus, unspecified (6) Deep vein thrombosis (DVT) ICD Codes: I82.409 - Acute embolism and thrombosis of unspecified deep veins of unspecified lower extremity Permanent Comment: The patient has been on anticoagulation therapy in the past however he is very poorly compliant in this regard . Last Edited By: Raul Merlos on Jun 11, 2017 13:34 Clarence Merlos MD Jun 11, 2017 13:17
[2017-06-11] MEDS: HYDROCORTISONE SOD SUCCINATE 100 MG VIAL IV PUSH SCH ×3 (13:23→22:35)
[2017-06-11 18:21] LABS: APTT (PATIENT) 143.1 SEC (24.3-30.1)
[2017-06-11 21:03] LABS: APTT (PATIENT) 44.4 SEC (24.3-30.1)
[2017-06-12] VITALS (56 sets, daily range): BP systolic 78–138; BP diastolic 43–73; PULSE 6–64; RESP 5–41; TEMP 96.3–98; O2SAT 72–100
[2017-06-12] MEDS: HEPARIN-D5W 25,000 U/250 ML 250 ML IV PRN (00:43)
[2017-06-12] MEDS: INSULIN NovoLIN REGULAR SUPPLEMENTAL SCALE SQ SCH ×6 (03:00→22:55)
[2017-06-12] MEDS: MIDODRINE 5 MG TAB PO SCH ×3 (03:57→20:00)
[2017-06-12] MEDS: CHLORHEXIDINE GLUCONATE 2 % 1 PACK (2 CLOTHS) TOP SCH (04:00)
[2017-06-12] MEDS: HYDROCORTISONE SOD SUCCINATE 100 MG VIAL IV PUSH SCH ×4 (05:24→22:54)
--- NOTE | 2017-06-12 07:46 | HHI.CCPN ---
Subjective Remarks/Hospital Course 46 year-old -Portuguese male past medical history of end-stage renal disease diagnosed 9 years ago who is on intermittent hemodialysis Tuesday under the care of CLAU Umaña, peripheral arterial disease status post bilateral BKA, coagulation disorder on chronic anticoagulation with warfarin. He underwent hemodialysis today and he states afterwards he had a fever and felt lightheaded so he came to [facility] emergency department.. His temperature was 103 upon arrival. Heart rate is in the 80s to 90s. He states his blood pressure "typically runs low" in the 80s but blood pressure is 60/47 the emergency department. He states he has had a slight nonproductive cough for 2-3 days. He denies nausea, vomiting, abdominal pain, chest pain, hemoptysis, melena, bright red blood per rectum, headache, neck stiffness, tenderness or drainage at dialysis catheter site, remainder of ROS neg. He has recently been treated for enterococcus in a wound near his right upper extremity fistula. He was discharged 03/21/17 with wound care and was on vancomycin with vascular surgery followup. He states his wound has healed and he believes he is no longer receiving vancomycin at dialysis. He is a challenging historian. Dr. Altamirano has attempted L IJ CVL access unsuccessfully. Patient states he has multiple prior failed attempts at central vascular access and that his IJ and subclavians are "clotted off". He has h/o SVC thrombus in 2009 and he states h/o unsuccessful attempt at access in R femoral as well. He has a left femoral tunneled dialysis catheter exchange 09/13/16 by IR and 05/16/17. Blood cultures have been obtained in the emergency department. He has been given cefepime and vancomycin. His received 2 L normal saline in the ED. Started midodrine and started low dose phenylephrine via peripheral IV after discussion of risks and benefits with patient and his mother. In addition, he was hypoglycemic on arrival with glucose in 20s, given amp dextrose and glucose 54. Not diabetic or on insulin/ oral hypoglycemics. 06/11 Patient is lying in bed in NAD. Afebrile. On Neosyn 40 mics. s/p HD yesterday. 06/12 No events overnight. Neosyn down 10 mics. Afebrile. Objective Vital Signs Date Time Temp Pulse Resp B/P (MAP) Pulse Ox O2 Delivery O2 Flow Rate FiO2 9/2/17 20:00 59 06/11/17 20:00 97.5 20 111/61 (78) 97 06/10/17 19:39 Room Air 06/10/17 16:19 2.00 Result Diagram: 06/11/17 1048 06/11/17 1048 Other Results Laboratory Tests Test 06/11/17 10:48 06/11/17 17:03 06/11/17 20:33 White Blood Count 17.1 TH/MM3 Red Blood Count 4.65 MIL/MM3 Hemoglobin 14.9 GM/DL Hematocrit 46.3 % Mean Corpuscular Volume 99.5 FL Mean Corpuscular Hemoglobin 32.0 PG Mean Corpuscular Hemoglobin Concent 32.2 % Red Cell Distribution Width 19.4 % Platelet Count 78 TH/MM3 Mean Platelet Volume 8.9 FL Neutrophils (%) (Auto) 90.0 % Lymphocytes (%) (Auto) 2.2 % Monocytes (%) (Auto) 7.1 % Eosinophils (%) (Auto) 0.2 % Basophils (%) (Auto) 0.5 % Neutrophils # (Auto) 15.4 TH/MM3 Lymphocytes # (Auto) 0.4 TH/MM3 Monocytes # (Auto) 1.2 TH/MM3 Eosinophils # (Auto) 0.0 TH/MM3 Basophils # (Auto) 0.1 TH/MM3 CBC Comment AUTO DIFF Differential Total Cells Counted 100 Neutrophils % (Manual) 83 % Band Neutrophils % 11 % Lymphocytes % 1 % Monocytes % 4 % Basophils % 1 % Neutrophils # (Manual) 16.1 TH/MM3 Differential Comment FINAL DIFF MANUAL Platelet Estimate LOW Platelet Morphology Comment NORMAL Prothrombin Time 15.2 SEC Prothromb Time International Ratio 1.4 RATIO Activated Partial Thromboplast Time 114.1 SEC 143.1 SEC 44.4 SEC Blood Urea Nitrogen 54 MG/DL Creatinine 12.45 MG/DL Random Glucose 159 MG/DL Total Protein 8.3 GM/DL Albumin 3.4 GM/DL Calcium Level 8.9 MG/DL Alkaline Phosphatase 69 U/L Aspartate Amino Transf (AST/SGOT) 22 U/L Alanine Aminotransferase (ALT/SGPT) 20 U/L Total Bilirubin 0.9 MG/DL Sodium Level 131 MEQ/L Potassium Level 3.7 MEQ/L Chloride Level 96 MEQ/L Carbon Dioxide Level 20.9 MEQ/L Anion Gap 14 MEQ/L Estimat Glomerular Filtration Rate 5 ML/MIN Imaging Last Impressions Chest X-Ray 06/10/17 1436 Signed Impressions: Service Date/Time: Saturday, June 10, 2017 15:36 - CONCLUSION: 1. Stable chronic interstitial changes. 2. No acute infiltrate. Narendra Barreto Jr., MD Objective Remarks GENERAL: Chronically ill-appearing male who is sitting up in ED stretcher, alert and conversant. SKIN: Warm to touch, dry. HEAD: Atraumatic. Normocephalic. EYES: Pupils 2 mm and round and reactive bilaterally. No scleral icterus. No injection or drainage. ENT: No nasal bleeding or discharge. Mucous membranes pink. NECK: Trachea midline. No meningismus CARDIOVASCULAR: Regular rate and rhythm, sinus rhythm on monitor. No murmurs rubs or gallops. RESPIRATORY: No accessory muscle use. Clear to auscultation. Breath sounds equal bilaterally. On room air GASTROINTESTINAL: Abdomen soft, non-tender, nondistended. Bowel sounds present MUSCULOSKELETAL: Extremities without clubbing, cyanosis, or edema. Status post bilateral BKA with incisions healed. Right upper extremity AV fistula with palpable pulse. Left femoral tunnel catheter in place with no obvious drainage , erythema, tenderness. NEUROLOGICAL: Awake and alert. No obvious cranial nerve deficits. Motor grossly within normal limits. Normal speech. Moving all extremities to command. Intermittently speaking on the telephone during evaluation A/P Assessment and Plan NEURO: Avoid sedatives. Awake and alert RESP: ?h/o asthma Chronic bibasilar interstitial opacities Oxygen PRN keep sat >92% Albuterol every 2 hours as needed for wheezing. CXR 06/10 : Chronic interstitial changes, no acute infiltrate CV: Septic shock Lactic acidemia- cleared Received 2 L normal saline in the emergency department. Wean off Neosyn monitor HR and BP keep MAP>65mmHg. Midodrine 10 mg PO Q8 On stress dose steroids HC 50mg IV Q6 Patient has h/o significant vasc access issues not amenable to bedside placement. Prior failed placement in ED. Patient also with prior h/o subclavian thrombus and coagulopathy GI: May need IR for access/tunnel cath removal. On PO heart healthy diet FEN/RENAL: ESRD On IHD Tuesday/Tuesday/Tuesday Nephrology consulted. Patient is known to Dr. Merlos Monitor renal function, avoid nephrotoxins ID: s/p Septic shock Chest x-ray changes appear chronic. Concerning for line infection from hemodialysis catheter. Recent exchange of L femoral access site 05/16 performed in IR. Patient states previously unable to obtain bilateral IJ/subclavian and right femoral sites. Continue Cefepime and Vanco per ID, PermCath line likely source will need to be replaced. 06/10 MC: GPC, coag negative staph. Check BC x 2 sets today HEME: ?SLE Coagulation d/o VICKI negative in past. On chronic warfarin but INR is subtherapeutic. Continue heparin drip and monitor PTT ENDO: Hypoglycemia- improved -?secondary to sepsis. on stress dose steroids- HC 50mg IV Q6 Continue with SSI with accuchecks PROPH: Heparin drip will provide DVT prophylaxis. Protonix 40 mg by mouth daily for stress ulcer prophylaxis and history of GERD ACCESS: PIV L UE. L femoral tunneled dialysis catheter in place. Follow up on labs today Level 3 Dania Greco MD Jun 12, 2017 07:46
[2017-06-12] MEDS: SODIUM CHLORIDE 0.9% FLUSH 10 ML FLUSH IV FLUSH SCH ×2 (09:00→20:00)
--- NOTE | 2017-06-12 09:02 | HHI.IDPN ---
Subjective Subjective Remarks Patient is a 46-year-old male, with known ESRD, on hemodialysis Tuesday and Tuesday, presented to the hospital complaining of low blood pressure, and fever. Patient states his blood pressure is generally on the low side, but usually runs around 80-90 systolic. He had his usual hemodialysis on the day of admission, and his vitals were stable at that time. When he went home however, he felt like he had a fever, and he's check his blood pressure and it was in the 60s. He denies any respiratory complaint. He denies any shortness of breath. No abdominal pain, nausea vomiting or diarrhea. He has no significant urine output. He has not been around anyone sick. In the emergency room he had a blood pressure in the 60s, and he was febrile up to 103. His WBC is normal. Sedimentation rate 1. Lactic acid 4.2, and it's down to 1.1 today. Her temperatures are better. He is on pressors currently. He offers no specific complaint at the time my exam. Patient has known central venous occlusion, and venous access for his hemodialysis has been a problem. He currently has a left groin permacath, and it was last exchange last May 16. He has a right upper extremity AV fistula that was placed in February, and in March, he was admitted and treated for a wound infection in his AV fistula incision that grew out enterococcus. His blood cultures were negative at that time. He was treated aggressively with IV antibiotic and he completed treatment back in April. The wound has completely healed. His AV fistula has recently been access the last 2 times he had hemodialysis. Only one of the limb was access, and the groin permacath was also used. Notes reviewed Temps ok Patient wondering when he will get HD He has SOB 2 BC with GPC Off pressors now Antibiotics Vancomycin Cefepime Lines L groin permacath Past Medical History ESRD on hemodialysis SLE E CAD Hypertension Severe PVD History of DVT Anemia Hyperparathyroidism of renal origin Previous dialysis catheter line infection Known central venous occlusion Past Surgical History Bilateral BKA 2 fingers amputated Previous dialysis access in his left upper extremity Recent AV fistula creation in the right upper extremity Previous revascularization procedures for PVD Allergies: Coded Allergies: iodine (Unverified Allergy, Severe, blisters, 06/10/17) morphine (Unverified Allergy, Severe, Itching, 06/10/17) potassium iodide (Unverified Allergy, Severe, blisters, 06/10/17) povidone-iodine (Unverified Allergy, Severe, blisters, 06/10/17) sodium iodide (Unverified Allergy, Severe, blisters, 06/10/17) sodium iodide (Unverified Allergy, Severe, blisters, 06/10/17) *MDRO Multi-Drug Resistant Organism (Verified Adverse Reaction, Unknown, ) MRSA (sputum) - 01/2008 MRSA PCR Screen NEGAVTIVE- 09/10/16 & 09/14/16 Cleared per Infection Control Objective . Vital Signs Date Time Temp Pulse Resp B/P (MAP) Pulse Ox O2 Delivery O2 Flow Rate FiO2 06/12/17 06:00 45 06/12/17 04:00 97.9 50 16 132/60 (84) 99 06/12/17 04:00 50 06/12/17 02:00 6 06/12/17 00:00 98.0 39 16 137/63 (87) 96 06/12/17 00:00 39 06/11/17 22:00 54 06/11/17 20:00 59 06/11/17 20:00 97.5 62 20 111/61 (78) 97 06/11/17 18:00 65 06/11/17 16:01 98.4 54 24 147/83 (104) 96 06/11/17 16:00 51 22 98 06/11/17 16:00 51 06/11/17 15:45 41 25 135/73 (93) 99 06/11/17 15:16 47 21 147/70 (95) 99 06/11/17 15:01 53 16 128/63 (84) 98 06/11/17 15:00 52 22 98 06/11/17 14:15 70 10 83/47 (59) 98 06/11/17 14:01 65 33 117/55 (75) 97 06/11/17 14:00 63 18 98 06/11/17 14:00 63 06/11/17 13:45 70 18 92/54 (67) 96 06/11/17 13:30 79 25 95/53 (67) 06/11/17 13:15 75 23 90/52 (65) 100 06/11/17 13:00 77 22 96/65 (75) 99 06/11/17 12:45 63 17 85/49 (61) 100 06/11/17 12:31 67 16 101/50 (67) 100 06/11/17 12:15 64 17 84/50 (61) 100 06/11/17 12:00 61 06/11/17 12:00 98.7 61 17 90/54 (66) 100 06/11/17 11:45 63 17 87/51 (63) 100 06/11/17 11:30 62 17 84/51 (62) 100 06/11/17 11:15 56 16 91/52 (65) 100 06/11/17 11:00 72 26 91/55 (67) 91 06/11/17 10:45 68 15 102/57 (72) 97 06/11/17 10:30 55 21 109/57 (74) 100 06/11/17 10:15 53 19 108/57 (74) 100 06/11/17 10:01 58 20 122/59 (80) 100 06/11/17 10:00 66 06/11/17 10:00 66 23 82 06/11/17 09:45 68 27 109/60 (76) 100 06/11/17 09:30 70 43 107/62 (77) 98 06/11/17 09:16 74 23 105/56 (72) 100 06/11/17 09:01 66 30 126/68 (87) 100 06/11/17 09:00 65 28 100 . Laboratory Tests Test 06/10/17 15:15 06/11/17 10:48 White Blood Count 10.8 TH/MM3 17.1 TH/MM3 Red Blood Count 5.02 MIL/MM3 4.65 MIL/MM3 Hemoglobin 16.3 GM/DL 14.9 GM/DL Hematocrit 48.5 % 46.3 % Mean Corpuscular Volume 96.5 FL 99.5 FL Mean Corpuscular Hemoglobin 32.6 PG 32.0 PG Mean Corpuscular Hemoglobin Concent 33.7 % 32.2 % Red Cell Distribution Width 18.9 % 19.4 % Platelet Count 93 TH/MM3 78 TH/MM3 Mean Platelet Volume 8.9 FL 8.9 FL Neutrophils (%) (Auto) 92.4 % 90.0 % Lymphocytes (%) (Auto) 2.2 % 2.2 % Monocytes (%) (Auto) 4.8 % 7.1 % Eosinophils (%) (Auto) 0.2 % 0.2 % Basophils (%) (Auto) 0.4 % 0.5 % Neutrophils # (Auto) 10.0 TH/MM3 15.4 TH/MM3 Lymphocytes # (Auto) 0.2 TH/MM3 0.4 TH/MM3 Monocytes # (Auto) 0.5 TH/MM3 1.2 TH/MM3 Eosinophils # (Auto) 0.0 TH/MM3 0.0 TH/MM3 Basophils # (Auto) 0.0 TH/MM3 0.1 TH/MM3 CBC Comment AUTO DIFF AUTO DIFF Differential Comment AUTO DIFF CONFIRMED FINAL DIFF MANUAL Differential Total Cells Counted 100 Neutrophils % (Manual) 83 % Band Neutrophils % 11 % Lymphocytes % 1 % Monocytes % 4 % Basophils % 1 % Neutrophils # (Manual) 16.1 TH/MM3 Platelet Estimate LOW Platelet Morphology Comment NORMAL Laboratory Tests Test 06/10/17 15:15 06/10/17 19:22 06/11/17 01:53 06/11/17 10:48 Blood Urea Nitrogen 42 MG/DL 54 MG/DL Creatinine 11.44 MG/DL 12.45 MG/DL Random Glucose 67 MG/DL 159 MG/DL Total Protein 9.1 GM/DL 8.3 GM/DL Albumin 3.8 GM/DL 3.4 GM/DL Calcium Level 9.3 MG/DL 8.9 MG/DL Alkaline Phosphatase 76 U/L 69 U/L Aspartate Amino Transf (AST/SGOT) 20 U/L 22 U/L Alanine Aminotransferase (ALT/SGPT) 19 U/L 20 U/L Total Bilirubin 0.8 MG/DL 0.9 MG/DL Sodium Level 137 MEQ/L 131 MEQ/L Potassium Level 3.3 MEQ/L 3.7 MEQ/L Chloride Level 97 MEQ/L 96 MEQ/L Carbon Dioxide Level 24.4 MEQ/L 20.9 MEQ/L Anion Gap 16 MEQ/L 14 MEQ/L Estimat Glomerular Filtration Rate 6 ML/MIN 5 ML/MIN Total Creatine Kinase 67 U/L Troponin I LESS THAN 0.02 NG/ML Lactic Acid Level 4.2 mmol/L 1.1 mmol/L Microbiology Date/Time Source Procedure Growth Status 06/10/17 15:25 Blood Peripheral Aerobic Blood Culture - Preliminary Gram Positive Cocci Resulted 06/10/17 15:25 Anaerobic Blood Culture - Preliminary Staph Sp Coagulase Negative Resulted 06/10/17 15:25 Blood Peripheral Aerobic Blood Culture - Preliminary Gram Positive Cocci Resulted 06/10/17 15:25 Anaerobic Blood Culture - Preliminary Staph Sp Coagulase Negative Resulted Imaging Last Impressions Chest X-Ray 06/10/17 1436 Signed Impressions: Service Date/Time: Saturday, June 10, 2017 15:36 - CONCLUSION: 1. Stable chronic interstitial changes. 2. No acute infiltrate. Narendra Barreto Jr., MD Physical Exam GENERAL: awake and alert, not in respiratory distress. SKIN: Warm and dry. No generalized rash, no ecchymoses and no evidence of embolic lesions. HEAD: Atraumatic. Normocephalic. No temporal wasting, or tenderness. EYES: [place] conjunctiva. No petechia or hemorrhage. Pupils equal, round and reactive to light. Extraocular movements full and intact. No scleral icterus. No injection or drainage. EARS, NOSE AND THROAT: Nose without bleeding or purulent nasal discharge. No sinus tenderness. Mucous membranes pink and moist. No oral lesions noted. No exudate. No oral thrush. NECK: Trachea midline. Supple and not tender, no meningeal signs CARDIOVASCULAR: Regular rate and rhythm. No murmurs, rubs or gallops heard RESPIRATORY: Clear to auscultation. Breath sounds equal bilaterally. No rales , wheezing or rhonchi ABDOMEN: Soft, non-tender, nondistended. Bowel sounds present and normoactive. No guarding. No rebound. No organomegaly. EXTREMITIES: No clubbing, cyanosis, or edema. Has carlos BKA, well healed stump. L thigh permacath site with no evidence of infection NEUROLOGICAL: Awake and alert. Cranial nerves grossly intact. Motor grossly within normal limits. PSYCHIATRIC: Normal affect, calm and cooperative. LINE: No evidence of infection - L groin permacath Assessment & Plan Remarks IMPRESSION Sepsis with shock on presentation - non-localizing, worrisome for line related sepsis - has had L groin permacath ESRD on HD MWF - has AVF LUE, S/P 6 weeks IV Abx for wound infection post-op Central venous occlusion, problem with venous access PVD, S/P Carlos BKA SLE RECOMMENDATION Follow C/S Continue current Abx: Vanco and Cefepime Check Vanco level and redose today Repeat BC today Will have to Rx with IV Abx for possible line related infection until the permacath can be removed Follow temps Monitor progress Follow CBC D/W Louann Hart MD Jun 12, 2017 09:02
[2017-06-12] MEDS: PANTOPRAZOLE SOD 40 MG DELAYED RELEASE TAB PO SCH (09:38)
[2017-06-12] MEDS: DOCUSATE SODIUM 50 MG/SENNA 8.6 MG TAB PO SCH ×2 (09:38→20:00)
[2017-06-12 10:16] LABS: BICARBONATE 17.9 MEQ/L (21.0-32.0)
[2017-06-12 10:17] LABS: POTASSIUM 3.6 MEQ/L (3.5-5.1)
[2017-06-12 10:37] LABS: CALCIUM-PROTEIN CORRECTED 7.2 MG/DL (8.5-10.1)
[2017-06-12 12:23] LABS: AUTOMATED NEUTROPHIL # 14.8 TH/MM3 (1.8-7.7); BASOPHIL % 0.1 % (0.0-2.0); HEMATOCRIT 43.5 % (39.0-51.0); LYMPH % 3.5 % (9.0-44.0); LYMPHOCYTE # 0.6 TH/MM3 (1.0-4.8); MEAN CORPUSCULAR HEMOGLOBIN 31.3 PG (27.0-34.0); MEAN CORPUSCULAR HGB CONC 31.6 % (32.0-36.0); MONO % 4.2 % (0.0-8.0); NEUT % 92.2 % (16.0-70.0); PLATELET COUNT 84 TH/MM3 (150-450); RED BLOOD COUNT 4.39 MIL/MM3 (4.50-5.90); RED CELL DISTRIBUTION WIDTH 19.6 % (11.6-17.2); WHITE BLOOD COUNT 16.1 TH/MM3 (4.0-11.0)
[2017-06-12 12:26] LABS: HEMO FLAGS AUTO DIFF
[2017-06-12 12:33] LABS: APTT (PATIENT) 82.1 SEC (24.3-30.1)
[2017-06-12 13:10] LABS: PLATELET ESTIMATE SMEAR LOW (NORMAL); PLATELET MORPHOLOGY NORMAL (NORMAL); SCAN/DIFF AUTO DIFF CONFIRMED
[2017-06-12] MEDS ORDERED: Vancomycin Consult Pharmacy 1 EA OTHER SCH (14:00)
--- NOTE | 2017-06-12 15:18 | HHI.NPPN ---
Subjective History of Present Illness This patient is a 46-year-old male with a history of end-stage renal disease, SLE, hypertension, peripheral vascular disease as well as secondary hyperparathyroidism of renal disease. Unfortunately the patient has had multiple dialysis accesses including dialysis shunts and dialysis catheters in the past complicated by access failure as well as infection. Patient now has very limited options for dialysis access. Presently we are relying on a left femoral dialysis line for access. Fortunately vessel surgery was able to create a left arm AV dialysis fistula back in February. It has matured somewhat but not ideally and presently we are using one needle in the fistula while port at the dialysis line has been used for dialysis access. We have not yet tried to use 2 needles in the AV dialysis shunt. Patient presents now with a history of chills, fever postdialysis yesterday and was noted to be hypotensive on presentation with blood pressures in the 60s. Patient's blood pressure has since improved however. Blood cultures negative 24 hours at time of consultation. Patient did receive cefepime and vancomycin since admission. Infectious disease on board.. Additional Remarks Patient indicating that he feels much better. Objective Data Data Vital Signs Date Time Temp Pulse Resp B/P (MAP) Pulse Ox O2 Delivery O2 Flow Rate FiO2 06/12/17 06:00 45 06/12/17 04:00 97.9 50 16 132/60 (84) 99 06/12/17 04:00 50 06/12/17 02:00 6 06/12/17 00:00 98.0 39 16 137/63 (87) 96 06/12/17 00:00 39 06/11/17 22:00 54 06/11/17 20:00 59 06/11/17 20:00 97.5 62 20 111/61 (78) 97 06/11/17 18:00 65 06/11/17 16:01 98.4 54 24 147/83 (104) 96 06/11/17 16:00 51 22 98 06/11/17 16:00 51 06/11/17 15:45 41 25 135/73 (93) 99 06/11/17 15:16 47 21 147/70 (95) 99 -: 06/12/17 1125 06/12/17 0918 Microbiology 06/12/17 Aerobic Blood Culture, Received Pending 06/12/17 Anaerobic Blood Culture, Received Pending Physical Exam General Appearance: Well Developed, Well Nourished, No Acute Distress, Comfortable Eyes Eye Exam: Sclera White Pulmonary Resp Exam: Clear Bilaterally, Breath Sounds Equal Cardiology CV Exam: Regular, Normal Sinus Rhythm, Good Perfusion Gastrointestinal/Abdomen GI Exam: Soft, Non-Tender Integumentary Skin Exam: Clear, Warm, Normal Turgor Extremeties Extremities Exam: No Edema Neurologic Neuro Exam: Alert, Awake Assessment/Plan Discussed Condition With: Patient Problem List: (1) ESRD (end stage renal disease) on dialysis ICD Codes: N18.6 - End stage renal disease; Z99.2 - Dependence on renal dialysis Status: Chronic Plan: Continue to monitor laboratory results. Hemodialysis is scheduled Tuesday and Tuesday but in house dialysis will depend upon metabolic status. Repeat labs tomorrow. Medication should be adjusted for the patient's end-stage renal disease when indicated. Avoid gadolinium. (2) Sepsis ICD Codes: A41.9 - Sepsis, unspecified organism Status: Acute Plan: Presently unsure of the reliability of the AV fistula. Appears to be well- developed distally but faint small approximately. If I removed the PermCath altogether may lose that femoral vein as discussed with infectious disease. I will ask radiology to do a PermCath exchange tomorrow. I will consult vascular surgery to see if they think an angiogram would be useful to determine whether or not there may be a stenosis within the fistula impeding development of the access proximally. (3) Complications, dialysis, catheter, mechanical ICD Codes: T82.49XA - Other complication of vascular dialysis catheter, initial encounter Status: Acute Plan: As above. (4) AVF (arteriovenous fistula) ICD Codes: I77.0 - Arteriovenous fistula, acquired Status: Acute Plan: As indicated the AV fistula appears to be well-developed distally but not so much approximately. May be given to the possible presence of checking for possible access stenosis impeding development of the fistula approximately. I may ask for a vascular surgical opinion regarding this next week. Patient may require an angiogram to clarify the situation. (5) Lupus (systemic lupus erythematosus) ICD Codes: M32.9 - Systemic lupus erythematosus, unspecified (6) Deep vein thrombosis (DVT) ICD Codes: I82.409 - Acute embolism and thrombosis of unspecified deep veins of unspecified lower extremity Permanent Comment: The patient has been on anticoagulation therapy in the past however he is very poorly compliant in this regard . Last Edited By: Raul Merlos on Jun 11, 2017 13:34 Clarence Merlos MD Jun 12, 2017 15:18
[2017-06-12] MEDS ORDERED: SODIUM CHLOR 0.9% 1000 ML INJ 1,000 ML IV PRN (15:19)
[2017-06-12] MEDS ORDERED: SODIUM CHLOR 0.9% 1000 ML INJ 1,000 ML OTHER PRN (15:19)
[2017-06-12] MEDS ORDERED: SODIUM CHLORIDE 0.9% FLUSH 10 ML FLUSH IV FLUSH PRN (15:30)
[2017-06-12] MEDS ORDERED: GELATIN 12 MM/7 MM FOAM TOP PRN (15:30)
[2017-06-12] MEDS ORDERED: HEPARIN SODIUM - IV 10,000 UNITS/10 ML VIAL IVF PRN (15:30)
[2017-06-12] MEDS ORDERED: ONDANSETRON HCL 4 MG/2 ML VIAL IV PRN (15:30)
[2017-06-12] MEDS ORDERED: diphenhydrAMINE HCL 25 MG CAP PO PRN (15:30)
[2017-06-12] MEDS ORDERED: ACETAMINOPHEN 325 MG TAB PO PRN (15:30)
[2017-06-12] MEDS ORDERED: NITROGLYCERIN 0.4 MG SL 25 TABS/BTL SL PRN (15:30)
[2017-06-12] MEDS ORDERED: cloNIDine HCL 0.1 MG TAB PO PRN (15:30)
[2017-06-12 22:13] LABS: APTT (PATIENT) 43.9 SEC (24.3-30.1)
[2017-06-13] VITALS (55 sets, daily range): BP systolic 85–143; BP diastolic 46–73; PULSE 39–83; RESP 7–38; TEMP 96.4–98.4; O2SAT 86–100
[2017-06-13] MEDS: INSULIN NovoLIN REGULAR SUPPLEMENTAL SCALE SQ SCH ×5 (03:00→22:24)
[2017-06-13] MEDS: MIDODRINE 5 MG TAB PO SCH ×3 (04:22→20:55)
[2017-06-13] MEDS: HYDROCORTISONE SOD SUCCINATE 100 MG VIAL IV PUSH SCH ×5 (04:22→22:24)
[2017-06-13] MEDS: HEPARIN-D5W 25,000 U/250 ML 250 ML IV PRN (04:24)
[2017-06-13 04:58] LABS: AUTOMATED NEUTROPHIL # 11.5 TH/MM3 (1.8-7.7); BASOPHIL % 0.1 % (0.0-2.0); HEMATOCRIT 45.1 % (39.0-51.0); HEMO FLAGS DIFF FINAL; LYMPH % 3.7 % (9.0-44.0); LYMPHOCYTE # 0.5 TH/MM3 (1.0-4.8); MEAN CELL VOLUME 98.6 FL (80.0-100.0); MEAN CORPUSCULAR HEMOGLOBIN 31.8 PG (27.0-34.0); MEAN CORPUSCULAR HGB CONC 32.2 % (32.0-36.0); NEUT % 91.2 % (16.0-70.0); PLATELET COUNT 101 TH/MM3 (150-450); RED BLOOD COUNT 4.57 MIL/MM3 (4.50-5.90); WHITE BLOOD COUNT 12.6 TH/MM3 (4.0-11.0)
[2017-06-13 05:10] LABS: APTT (PATIENT) 40.8 SEC (24.3-30.1)
[2017-06-13 05:30] LABS: BICARBONATE 18.3 MEQ/L (21.0-32.0); POTASSIUM 4.2 MEQ/L (3.5-5.1)
[2017-06-13] MEDS ORDERED: CEFEPIME INJ 2,000 MG in SODIUM CHLORIDE 0.9% INJ 100 ML IV PRN (06:30)
--- NOTE | 2017-06-13 07:40 | HHI.CCPN ---
Subjective Remarks/Hospital Course 46 year-old -Mone[place] male past medical history of end-stage renal disease diagnosed 9 years ago who is on intermittent hemodialysis Tuesday under the care of CLAU Umaña, peripheral arterial disease status post bilateral BKA, coagulation disorder on chronic anticoagulation with warfarin. He underwent hemodialysis today and he states afterwards he had a fever and felt lightheaded so he came to [facility] emergency department.. His temperature was 103 upon arrival. Heart rate is in the 80s to 90s. He states his blood pressure "typically runs low" in the 80s but blood pressure is 60/47 the emergency department. He states he has had a slight nonproductive cough for 2-3 days. He denies nausea, vomiting, abdominal pain, chest pain, hemoptysis, melena, bright red blood per rectum, headache, neck stiffness, tenderness or drainage at dialysis catheter site, remainder of ROS neg. He has recently been treated for enterococcus in a wound near his right upper extremity fistula. He was discharged 03/21/17 with wound care and was on vancomycin with vascular surgery followup. He states his wound has healed and he believes he is no longer receiving vancomycin at dialysis. He is a challenging historian. Dr. Altamirano has attempted L IJ CVL access unsuccessfully. Patient states he has multiple prior failed attempts at central vascular access and that his IJ and subclavians are "clotted off". He has h/o SVC thrombus in 2009 and he states h/o unsuccessful attempt at access in R femoral as well. He has a left femoral tunneled dialysis catheter exchange 09/13/16 by IR and 05/16/17. Blood cultures have been obtained in the emergency department. He has been given cefepime and vancomycin. His received 2 L normal saline in the ED. Started midodrine and started low dose phenylephrine via peripheral IV after discussion of risks and benefits with patient and his mother. In addition, he was hypoglycemic on arrival with glucose in 20s, given amp dextrose and glucose 54. Not diabetic or on insulin/ oral hypoglycemics. 06/11 Patient is lying in bed in NAD. Afebrile. On Neosyn 40 mics. s/p HD yesterday. 06/12 No events overnight. Neosyn down 10 mics. Afebrile. 06/13 Patient is lying in bed in NAD. Afebrile. Off Neosyn, remains on heparin drip. For HD today. Objective Vital Signs Date Time Temp Pulse Resp B/P (MAP) Pulse Ox O2 Delivery O2 Flow Rate FiO2 06/13/17 07:00 41 11 100 06/13/17 06:30 143/73 (96) 06/13/17 04:00 97.4 06/10/17 19:39 Room Air 06/10/17 16:19 2.00 Intake and Output 06/13/17 06/13/17 06/14/17 08:00 16:00 00:00 Intake Total 425 ml Output Total 0 ml Balance 425 ml Result Diagram: 06/13/17 0401 06/13/17 0401 Other Results Laboratory Tests Test 06/12/17 09:18 06/12/17 11:25 06/12/17 21:50 06/13/17 04:01 Blood Urea Nitrogen 63 MG/DL 92 MG/DL Creatinine 11.38 MG/DL 15.08 MG/DL Random Glucose 126 MG/DL 101 MG/DL Total Protein 6.1 GM/DL Calcium Level 6.7 MG/DL 8.6 MG/DL Sodium Level 135 MEQ/L 129 MEQ/L Potassium Level 3.6 MEQ/L 4.2 MEQ/L Chloride Level 104 MEQ/L 95 MEQ/L Carbon Dioxide Level 17.9 MEQ/L 18.3 MEQ/L Anion Gap 13 MEQ/L 16 MEQ/L Estimat Glomerular Filtration Rate 6 ML/MIN 4 ML/MIN Protein Corrected Calcium 7.2 MG/DL White Blood Count 16.1 TH/MM3 12.6 TH/MM3 Red Blood Count 4.39 MIL/MM3 4.57 MIL/MM3 Hemoglobin 13.7 GM/DL 14.5 GM/DL Hematocrit 43.5 % 45.1 % Mean Corpuscular Volume 99.0 FL 98.6 FL Mean Corpuscular Hemoglobin 31.3 PG 31.8 PG Mean Corpuscular Hemoglobin Concent 31.6 % 32.2 % Red Cell Distribution Width 19.6 % 19.0 % Platelet Count 84 TH/MM3 101 TH/MM3 Mean Platelet Volume 9.6 FL 9.6 FL Neutrophils (%) (Auto) 92.2 % 91.2 % Lymphocytes (%) (Auto) 3.5 % 3.7 % Monocytes (%) (Auto) 4.2 % 5.0 % Eosinophils (%) (Auto) 0.0 % 0.0 % Basophils (%) (Auto) 0.1 % 0.1 % Neutrophils # (Auto) 14.8 TH/MM3 11.5 TH/MM3 Lymphocytes # (Auto) 0.6 TH/MM3 0.5 TH/MM3 Monocytes # (Auto) 0.7 TH/MM3 0.6 TH/MM3 Eosinophils # (Auto) 0.0 TH/MM3 0.0 TH/MM3 Basophils # (Auto) 0.0 TH/MM3 0.0 TH/MM3 CBC Comment AUTO DIFF DIFF FINAL Differential Comment AUTO DIFF CONFIRMED Platelet Estimate LOW Platelet Morphology Comment NORMAL Activated Partial Thromboplast Time 82.1 SEC 43.9 SEC 40.8 SEC Random Vancomycin Level 23.4 COMMENT Imaging Last Impressions Chest X-Ray 06/10/17 1436 Signed Impressions: Service Date/Time: Saturday, June 10, 2017 15:36 - CONCLUSION: 1. Stable chronic interstitial changes. 2. No acute infiltrate. Narendra Barreto Jr., MD Objective Remarks GENERAL: Chronically ill-appearing male who is sitting up in ED stretcher, alert and conversant. SKIN: Warm to touch, dry. HEAD: Atraumatic. Normocephalic. EYES: Pupils 2 mm and round and reactive bilaterally. No scleral icterus. No injection or drainage. ENT: No nasal bleeding or discharge. Mucous membranes pink. NECK: Trachea midline. No meningismus CARDIOVASCULAR: Regular rate and rhythm, sinus rhythm on monitor. No murmurs rubs or gallops. RESPIRATORY: No accessory muscle use. Clear to auscultation. Breath sounds equal bilaterally. On room air GASTROINTESTINAL: Abdomen soft, non-tender, nondistended. Bowel sounds present MUSCULOSKELETAL: Extremities without clubbing, cyanosis, or edema. Status post bilateral BKA with incisions healed. Right upper extremity AV fistula with palpable pulse. Left femoral tunnel catheter in place with no obvious drainage , erythema, tenderness. NEUROLOGICAL: Awake and alert. No obvious cranial nerve deficits. Motor grossly within normal limits. Normal speech. Moving all extremities to command. Intermittently speaking on the telephone during evaluation A/P Assessment and Plan NEURO: Avoid sedatives. Awake and alert RESP: ?h/o asthma Chronic bibasilar interstitial opacities Oxygen PRN keep sat >92% Albuterol every 2 hours as needed for wheezing. CXR 06/10 : Chronic interstitial changes, no acute infiltrate CV: s/p Septic shock Lactic acidemia- cleared Sinus bradycardia Received 2 L normal saline in the emergency department. Off Neosyn monitor HR and BP keep MAP>65mmHg. Midodrine 10 mg PO Q8 On stress dose steroids HC 50mg IV Q6 Check echo to eval LV function Patient has h/o significant vasc access issues not amenable to bedside placement. Prior failed placement in ED. Patient also with prior h/o subclavian thrombus and coagulopathy GI: May need IR for access/tunnel cath removal. On PO heart healthy diet FEN/RENAL: ESRD On IHD Tuesday/Tuesday/Tuesday Nephrology is following. Dr. Merlos Monitor renal function, avoid nephrotoxins For HD today Discussed with Dr. Merlos and IR plan for PermCath exchange today ID: s/p Septic shock GPC/Coag neg staph bacteremia Chest x-ray changes appear chronic. Concerning for line infection from hemodialysis catheter. Recent exchange of L femoral access site 05/16 performed in IR. Patient states previously unable to obtain bilateral IJ/subclavian and right femoral sites. Continue Cefepime and Vanco per ID, PermCath line likely source will need to be replaced. WBC is trending down 06/10 MC: GPC, coag negative staph. BC 06/12: NGTD HEME: ?SLE Coagulation d/o VICKI negative in past. On chronic warfarin but INR is subtherapeutic. Continue heparin drip and monitor PTT ENDO: Hypoglycemia- improved -?secondary to sepsis. on stress dose steroids- HC 50mg IV Q6 Continue with SSI with accuchecks PROPH: Heparin drip will provide DVT prophylaxis. Protonix 40 mg by mouth daily for stress ulcer prophylaxis and history of GERD ACCESS: PIV L UE. L femoral tunneled dialysis catheter in place. For PermCath exchange today by IR. Level 3 Dania Greco MD Jun 13, 2017 07:40
--- NOTE | 2017-06-13 08:29 | PD.VS.PN ---
Subjective Subjective/Hospital Course Pt well known to me - known SVC occlusion and HD dependence with a groin catheter, admitted for presumptive catheter infection. When I met him as an outpatient, with discussion with Dr. Lewis (nephrology) we decided to try a R brachiocephalic AVF despite obvious outflow occlusion. He had a wound that was related to edema but that has ultimately healed. As an outpatient, he had his access cleared for use Mr. Mercado tells me that he has had his AVF used some. Objective Vitals/I&O Date Time Temp Pulse Resp B/P (MAP) Pulse Ox O2 Delivery O2 Flow Rate FiO2 06/13/17 07:00 41 11 100 06/13/17 06:30 55 24 143/73 (96) 96 06/13/17 06:01 46 20 129/63 (85) 98 06/13/17 06:00 43 15 100 06/13/17 06:00 43 06/13/17 05:31 40 14 107/59 (75) 100 06/13/17 05:30 40 15 100 06/13/17 05:00 46 20 129/64 (85) 96 06/13/17 04:31 47 22 119/59 (79) 96 06/13/17 04:30 44 18 96 06/13/17 04:01 44 16 116/55 (75) 96 06/13/17 04:00 46 15 95 06/13/17 04:00 46 06/13/17 04:00 46 15 95 06/13/17 04:00 97.4 44 16 116/55 (75) 95 06/13/17 03:31 40 13 97/55 (69) 93 06/13/17 03:30 41 12 92 06/13/17 03:01 39 13 124/58 (80) 96 06/13/17 03:00 46 19 94 06/13/17 02:31 43 18 99/53 (68) 94 06/13/17 02:30 46 15 92 06/13/17 02:21 45 21 88/46 (60) 93 06/13/17 02:00 59 28 06/13/17 02:00 59 06/13/17 01:30 41 7 93/54 (67) 99 06/13/17 01:23 41 7 88/53 (65) 96 06/13/17 01:00 44 22 91 06/13/17 00:36 43 22 103/55 (71) 95 06/13/17 00:30 44 38 99 06/13/17 00:02 48 32 95/50 (65) 06/13/17 00:00 44 30 97 06/13/17 00:00 44 30 97 06/13/17 00:00 44 06/13/17 00:00 96.4 44 20 95/50 (65) 97 06/12/17 23:31 50 39 110/56 (74) 96 06/12/17 23:30 49 27 95 06/12/17 23:01 45 24 112/63 (79) 95 06/12/17 23:00 42 28 94 06/12/17 22:31 47 15 87/48 (61) 95 06/12/17 22:30 49 16 96 06/12/17 22:00 57 06/12/17 22:00 51 19 116/54 (74) 97 06/12/17 21:30 43 19 107/59 (75) 99 06/12/17 21:01 43 21 116/57 (76) 98 06/12/17 21:00 43 16 95 06/12/17 20:31 43 27 125/61 (82) 95 06/12/17 20:30 41 23 100 06/12/17 20:00 96.3 56 18 106/63 (77) 97 06/12/17 20:00 56 06/12/17 20:00 56 35 106/63 (77) 97 06/12/17 19:01 39 17 109/53 (71) 99 06/12/17 19:00 41 25 88 06/12/17 18:30 46 30 111/56 (74) 06/12/17 18:12 41 33 107/54 (71) 97 06/12/17 18:01 57 15 78/43 (55) 06/12/17 18:00 64 06/12/17 18:00 64 20 06/12/17 17:30 42 21 103/57 (72) 06/12/17 17:01 39 19 112/61 (78) 06/12/17 17:00 39 20 06/12/17 16:30 57 18 100/56 (71) 100 06/12/17 16:01 97.6 41 14 96/50 (65) 100 06/12/17 16:00 41 06/12/17 16:00 41 17 100 06/12/17 15:00 43 17 06/12/17 14:31 38 18 122/67 (85) 99 06/12/17 14:00 35 06/12/17 14:00 35 14 121/63 (82) 06/12/17 13:31 43 24 108/73 (85) 81 06/12/17 13:00 38 16 124/63 (83) 100 06/12/17 12:31 37 12 124/66 (85) 72 06/12/17 12:00 97.9 41 20 103/66 (78) 98 06/12/17 12:00 41 06/12/17 11:44 43 28 101/71 (81) 100 06/12/17 11:16 35 18 138/62 (87) 06/12/17 11:00 42 21 109/59 (76) 100 06/12/17 10:45 40 21 109/60 (76) 99 06/12/17 10:30 43 16 111/59 (76) 96 06/12/17 10:15 41 17 103/59 (74) 93 06/12/17 10:00 44 16 116/57 (76) 06/12/17 10:00 44 06/12/17 09:45 58 41 97/61 (73) 06/12/17 09:30 45 32 112/63 (79) 06/12/17 09:15 45 22 113/62 (79) 100 06/12/17 09:00 44 28 113/64 (80) 100 06/12/17 08:45 47 22 117/69 (85) 100 06/12/17 08:30 45 16 112/61 (78) 100 06/13/17 06/13/17 06/13/17 07:00 15:00 23:00 Intake Total 425 ml Output Total 0 ml Balance 425 ml Physical Exam R UE incision c/d/i + thrill in AVF along cephalic vein Laboratory Laboratory Tests Test 06/12/17 09:18 06/12/17 11:25 06/12/17 21:50 06/13/17 04:01 Blood Urea Nitrogen 63 92 Creatinine 11.38 15.08 Random Glucose 126 101 Total Protein 6.1 Calcium Level 6.7 8.6 Sodium Level 135 129 Potassium Level 3.6 4.2 Chloride Level 104 95 Carbon Dioxide Level 17.9 18.3 Anion Gap 13 16 Estimat Glomerular Filtration Rate 6 4 Protein Corrected Calcium 7.2 White Blood Count 16.1 12.6 Red Blood Count 4.39 4.57 Hemoglobin 13.7 14.5 Hematocrit 43.5 45.1 Mean Corpuscular Volume 99.0 98.6 Mean Corpuscular Hemoglobin 31.3 31.8 Mean Corpuscular Hemoglobin Concent 31.6 32.2 Red Cell Distribution Width 19.6 19.0 Platelet Count 84 101 Mean Platelet Volume 9.6 9.6 Neutrophils (%) (Auto) 92.2 91.2 Lymphocytes (%) (Auto) 3.5 3.7 Monocytes (%) (Auto) 4.2 5.0 Eosinophils (%) (Auto) 0.0 0.0 Basophils (%) (Auto) 0.1 0.1 Neutrophils # (Auto) 14.8 11.5 Lymphocytes # (Auto) 0.6 0.5 Monocytes # (Auto) 0.7 0.6 Eosinophils # (Auto) 0.0 0.0 Basophils # (Auto) 0.0 0.0 CBC Comment AUTO DIFF DIFF FINAL Differential Comment AUTO DIFF CONFIRMED Platelet Estimate LOW Platelet Morphology Comment NORMAL Activated Partial Thromboplast Time 82.1 43.9 40.8 Random Vancomycin Level 23.4 Date/Time Source Procedure Growth Status 06/12/17 15:10 Blood Peripheral Aerobic Blood Culture Pending Resulted 06/12/17 15:10 Blood Peripheral Anaerobic Blood Culture - Final QNS - SEE AEROBE REPORT Resulted Assessment and Plan Plan mature AVF Ok to use. I agree that the thrill isn't as pronounced as ideal, but given time from creation and maturation to date, I would attempt to use is. Please call with any questions. Chon Plascencia MD FACS [employer] manager mining [facility]ly [facility] - Heart and V[facility] Surgery at [facility] [phone] Chon Plascencia MD Jun 13, 2017 08:29
[2017-06-13] MEDS: SODIUM CHLORIDE 0.9% FLUSH 10 ML FLUSH IV FLUSH SCH ×2 (09:00→20:56)
[2017-06-13] MEDS: DOCUSATE SODIUM 50 MG/SENNA 8.6 MG TAB PO SCH ×2 (09:00→20:56)
[2017-06-13] MEDS: PANTOPRAZOLE SOD 40 MG DELAYED RELEASE TAB PO SCH (09:00)
[2017-06-13] MEDS: ALBUMIN HUMAN 25% 25 GM/100 ML BAGP IV PRN (13:30)
[2017-06-13] MEDS: GENTAMICIN SULFATE (DIALYSIS USE ONLY) 20 MG/2 ML VIAL IV PRN (13:31)
[2017-06-13] MEDS: HEPARIN SODIUM - IV 10,000 UNITS/10 ML VIAL PRN (13:31)
--- NOTE | 2017-06-13 13:34 | HHI.NPPN ---
Subjective History of Present Illness This patient is a 46-year-old male with a history of end-stage renal disease, SLE, hypertension, peripheral vascular disease as well as secondary hyperparathyroidism of renal disease. Unfortunately the patient has had multiple dialysis accesses including dialysis shunts and dialysis catheters in the past complicated by access failure as well as infection. Patient now has very limited options for dialysis access. Presently we are relying on a left femoral dialysis line for access. Fortunately vessel surgery was able to create a left arm AV dialysis fistula back in February. It has matured somewhat but not ideally and presently we are using one needle in the fistula while port at the dialysis line has been used for dialysis access. We have not yet tried to use 2 needles in the AV dialysis shunt. Patient presents now with a history of chills, fever postdialysis yesterday and was noted to be hypotensive on presentation with blood pressures in the 60s. Patient's blood pressure has since improved however. Blood cultures negative 24 hours at time of consultation. Patient did receive cefepime and vancomycin since admission. Infectious disease on board.. Interval History Unfortunately attempt to use the fistula today was unsuccessful with inadequate blood flow from the fistula. PermCath is currently being use. Patient had no verbal complaints. Additional Remarks Patient indicating that he feels much better. Objective Data Data Vital Signs Date Time Temp Pulse Resp B/P (MAP) Pulse Ox O2 Delivery O2 Flow Rate FiO2 06/13/17 13:15 49 13 102/63 (76) 06/13/17 13:00 48 14 102/60 (74) 06/13/17 12:45 48 17 98/56 (70) 06/13/17 12:30 46 20 114/64 (81) 06/13/17 12:00 97.8 41 17 121/63 (82) 86 06/13/17 12:00 41 06/13/17 11:30 53 27 117/72 (87) 100 06/13/17 11:03 41 16 114/57 (76) 06/13/17 11:00 42 16 06/13/17 10:31 39 18 112/60 (77) 06/13/17 10:00 40 06/13/17 10:00 40 16 134/65 (88) 06/13/17 09:01 49 26 117/65 (82) 06/13/17 09:00 47 33 06/13/17 08:30 43 19 131/65 (87) 97 06/13/17 08:00 97.6 40 16 109/56 (73) 100 06/13/17 08:00 40 06/13/17 07:00 41 11 100 06/13/17 06:30 55 24 143/73 (96) 96 06/13/17 06:01 46 20 129/63 (85) 98 06/13/17 06:00 43 15 100 06/13/17 06:00 43 06/13/17 05:31 40 14 107/59 (75) 100 06/13/17 05:30 40 15 100 06/13/17 05:00 46 20 129/64 (85) 96 06/13/17 04:31 47 22 119/59 (79) 96 06/13/17 04:30 44 18 96 06/13/17 04:01 44 16 116/55 (75) 96 06/13/17 04:00 46 15 95 06/13/17 04:00 46 06/13/17 04:00 46 15 95 06/13/17 04:00 97.4 44 16 116/55 (75) 95 06/13/17 03:31 40 13 97/55 (69) 93 06/13/17 03:30 41 12 92 06/13/17 03:01 39 13 124/58 (80) 96 06/13/17 03:00 46 19 94 06/13/17 02:31 43 18 99/53 (68) 94 06/13/17 02:30 46 15 92 06/13/17 02:21 45 21 88/46 (60) 93 06/13/17 02:00 59 28 06/13/17 02:00 59 06/13/17 01:30 41 7 93/54 (67) 99 06/13/17 01:23 41 7 88/53 (65) 96 06/13/17 01:00 44 22 91 06/13/17 00:36 43 22 103/55 (71) 95 06/13/17 00:30 44 38 99 06/13/17 00:02 48 32 95/50 (65) 06/13/17 00:00 44 30 97 06/13/17 00:00 44 30 97 06/13/17 00:00 44 06/13/17 00:00 96.4 44 20 95/50 (65) 97 06/12/17 23:31 50 39 110/56 (74) 96 06/12/17 23:30 49 27 95 06/12/17 23:01 45 24 112/63 (79) 95 06/12/17 23:00 42 28 94 06/12/17 22:31 47 15 87/48 (61) 95 06/12/17 22:30 49 16 96 06/12/17 22:00 57 06/12/17 22:00 51 19 116/54 (74) 97 06/12/17 21:30 43 19 107/59 (75) 99 06/12/17 21:01 43 21 116/57 (76) 98 06/12/17 21:00 43 16 95 06/12/17 20:31 43 27 125/61 (82) 95 06/12/17 20:30 41 23 100 06/12/17 20:00 96.3 56 18 106/63 (77) 97 06/12/17 20:00 56 06/12/17 20:00 56 35 106/63 (77) 97 06/12/17 19:01 39 17 109/53 (71) 99 06/12/17 19:00 41 25 88 06/12/17 18:30 46 30 111/56 (74) 06/12/17 18:12 41 33 107/54 (71) 97 06/12/17 18:01 57 15 78/43 (55) 06/12/17 18:00 64 06/12/17 18:00 64 20 06/12/17 17:30 42 21 103/57 (72) 06/12/17 17:01 39 19 112/61 (78) 06/12/17 17:00 39 20 06/12/17 16:30 57 18 100/56 (71) 100 06/12/17 16:01 97.6 41 14 96/50 (65) 100 06/12/17 16:00 41 06/12/17 16:00 41 17 100 06/12/17 15:00 43 17 06/12/17 14:31 38 18 122/67 (85) 99 06/12/17 14:00 35 06/12/17 14:00 35 14 121/63 (82) -: 06/13/17 0401 06/13/17 0401 Microbiology 06/12/17 Aerobic Blood Culture - Preliminary, Resulted NO GROWTH IN 1 DAY 06/12/17 Anaerobic Blood Culture - Final, Resulted QNS - SEE AEROBE REPORT Physical Exam General Appearance: Well Developed, Well Nourished, No Acute Distress, Comfortable Eyes Eye Exam: Sclera White Pulmonary Resp Exam: Clear Bilaterally, Breath Sounds Equal Cardiology CV Exam: Regular, Normal Sinus Rhythm, Good Perfusion Gastrointestinal/Abdomen GI Exam: Soft, Non-Tender Integumentary Skin Exam: Clear, Warm, Normal Turgor Extremeties Extremities Exam: No Edema Neurologic Neuro Exam: Alert, Awake Assessment/Plan Discussed Condition With: Patient Problem List: (1) ESRD (end stage renal disease) on dialysis ICD Codes: N18.6 - End stage renal disease; Z99.2 - Dependence on renal dialysis Status: Chronic Plan: The patient was seen during dialysis today. Tolerating treatment well. Unfortunately the AV fistula could not provide adequate blood flow and his hemodialysis PermCath is currently being use. Next dialysis treatment will try to return blood to the fistula and pull blood from the PermCath. The patient will require a new vascular catheter unfortunately. May consider discussing the case with interventional nephrology at a later date to see if an angiogram would be of any benefit to exclude stenoses. Medication should be adjusted for the patient's end-stage renal disease when indicated. Avoid gadolinium. (2) Sepsis ICD Codes: A41.9 - Sepsis, unspecified organism Status: Acute Plan: Presently unsure of the reliability of the AV fistula. Appears to be well- developed distally but faint small approximately. If I removed the PermCath altogether may lose that femoral vein as discussed with infectious disease. I will ask radiology to do a PermCath exchange tomorrow. I will consult vascular surgery to see if they think an angiogram would be useful to determine whether or not there may be a stenosis within the fistula impeding development of the access proximally. (3) Complications, dialysis, catheter, mechanical ICD Codes: T82.49XA - Other complication of vascular dialysis catheter, initial encounter Status: Acute Plan: Unfortunately as indicated above the dialysis fistula could not provide an adequate access for dialysis today. We ended up using the PermCath. That being the case that hemodialysis PermCath will be exchanged rather than removed completely. Situation was discussed with critical care as well as infectious disease. Hopefully the infection will clear with catheter exchange. (4) AVF (arteriovenous fistula) ICD Codes: I77.0 - Arteriovenous fistula, acquired Status: Acute Plan: As indicated the AV fistula appears to be well-developed distally but not so much approximately. May be given to the possible presence of checking for possible access stenosis impeding development of the fistula approximately. I may ask for a vascular surgical opinion regarding this next week. Patient may require an angiogram to clarify the situation. (5) Lupus (systemic lupus erythematosus) ICD Codes: M32.9 - Systemic lupus erythematosus, unspecified (6) Deep vein thrombosis (DVT) ICD Codes: I82.409 - Acute embolism and thrombosis of unspecified deep veins of unspecified lower extremity Permanent Comment: The patient has been on anticoagulation therapy in the past however he is very poorly compliant in this regard . Last Edited By: Raul Merlos on Jun 11, 2017 13:34 Clarence Merlos MD Jun 13, 2017 13:34
--- NOTE | 2017-06-13 13:41 | HHI.IDPN ---
Subjective Subjective Remarks Patient is a 46-year-old male, with known ESRD, on hemodialysis Tuesday and Tuesday, presented to the hospital complaining of low blood pressure, and fever. Patient states his blood pressure is generally on the low side, but usually runs around 80-90 systolic. He had his usual hemodialysis on the day of admission, and his vitals were stable at that time. When he went home however, he felt like he had a fever, and he's check his blood pressure and it was in the 60s. He denies any respiratory complaint. He denies any shortness of breath. No abdominal pain, nausea vomiting or diarrhea. He has no significant urine output. He has not been around anyone sick. In the emergency room he had a blood pressure in the 60s, and he was febrile up to 103. His WBC is normal. Sedimentation rate 1. Lactic acid 4.2, and it's down to 1.1 today. Her temperatures are better. He is on pressors currently. He offers no specific complaint at the time my exam. Patient has known central venous occlusion, and venous access for his hemodialysis has been a problem. He currently has a left groin permacath, and it was last exchange last May 16. He has a right upper extremity AV fistula that was placed in February, and in March, he was admitted and treated for a wound infection in his AV fistula incision that grew out enterococcus. His blood cultures were negative at that time. He was treated aggressively with IV antibiotic and he completed treatment back in April. The wound has completely healed. His AV fistula has recently been access the last 2 times he had hemodialysis. Only one of the limb was access, and the groin permacath was also used. Notes reviewed Temps ok getting HD 2 BC with Coag Neg Staph To have permacath exchange BP good Antibiotics Vancomycin Cefepime Lines L groin permacath Past Medical History ESRD on hemodialysis SLE E CAD Hypertension Severe PVD History of DVT Anemia Hyperparathyroidism of renal origin Previous dialysis catheter line infection Known central venous occlusion Past Surgical History Bilateral BKA 2 fingers amputated Previous dialysis access in his left upper extremity Recent AV fistula creation in the right upper extremity Previous revascularization procedures for PVD Allergies: Coded Allergies: iodine (Unverified Allergy, Severe, blisters, 06/10/17) morphine (Unverified Allergy, Severe, Itching, 06/10/17) potassium iodide (Unverified Allergy, Severe, blisters, 06/10/17) povidone-iodine (Unverified Allergy, Severe, blisters, 06/10/17) sodium iodide (Unverified Allergy, Severe, blisters, 06/10/17) sodium iodide (Unverified Allergy, Severe, blisters, 06/10/17) *MDRO Multi-Drug Resistant Organism (Verified Adverse Reaction, Unknown, ) MRSA (sputum) - 01/2008 MRSA PCR Screen NEGAVTIVE- 09/10/16 & 09/14/16 Cleared per Infection Control Objective . Vital Signs Date Time Temp Pulse Resp B/P (MAP) Pulse Ox O2 Delivery O2 Flow Rate FiO2 06/13/17 13:15 49 13 102/63 (76) 06/13/17 13:00 48 14 102/60 (74) 06/13/17 12:45 48 17 98/56 (70) 06/13/17 12:30 46 20 114/64 (81) 06/13/17 12:00 97.8 41 17 121/63 (82) 86 06/13/17 12:00 41 06/13/17 11:30 53 27 117/72 (87) 100 06/13/17 11:03 41 16 114/57 (76) 06/13/17 11:00 42 16 06/13/17 10:31 39 18 112/60 (77) 06/13/17 10:00 40 06/13/17 10:00 40 16 134/65 (88) 06/13/17 09:01 49 26 117/65 (82) 06/13/17 09:00 47 33 06/13/17 08:30 43 19 131/65 (87) 97 06/13/17 08:00 97.6 40 16 109/56 (73) 100 06/13/17 08:00 40 06/13/17 07:00 41 11 100 06/13/17 06:30 55 24 143/73 (96) 96 06/13/17 06:01 46 20 129/63 (85) 98 06/13/17 06:00 43 15 100 06/13/17 06:00 43 06/13/17 05:31 40 14 107/59 (75) 100 06/13/17 05:30 40 15 100 06/13/17 05:00 46 20 129/64 (85) 96 06/13/17 04:31 47 22 119/59 (79) 96 06/13/17 04:30 44 18 96 06/13/17 04:01 44 16 116/55 (75) 96 06/13/17 04:00 46 15 95 06/13/17 04:00 46 06/13/17 04:00 46 15 95 06/13/17 04:00 97.4 44 16 116/55 (75) 95 06/13/17 03:31 40 13 97/55 (69) 93 06/13/17 03:30 41 12 92 06/13/17 03:01 39 13 124/58 (80) 96 06/13/17 03:00 46 19 94 06/13/17 02:31 43 18 99/53 (68) 94 06/13/17 02:30 46 15 92 06/13/17 02:21 45 21 88/46 (60) 93 06/13/17 02:00 59 28 06/13/17 02:00 59 06/13/17 01:30 41 7 93/54 (67) 99 06/13/17 01:23 41 7 88/53 (65) 96 06/13/17 01:00 44 22 91 06/13/17 00:36 43 22 103/55 (71) 95 06/13/17 00:30 44 38 99 06/13/17 00:02 48 32 95/50 (65) 06/13/17 00:00 44 30 97 06/13/17 00:00 44 30 97 06/13/17 00:00 44 06/13/17 00:00 96.4 44 20 95/50 (65) 97 06/12/17 23:31 50 39 110/56 (74) 96 06/12/17 23:30 49 27 95 06/12/17 23:01 45 24 112/63 (79) 95 06/12/17 23:00 42 28 94 06/12/17 22:31 47 15 87/48 (61) 95 06/12/17 22:30 49 16 96 06/12/17 22:00 57 06/12/17 22:00 51 19 116/54 (74) 97 06/12/17 21:30 43 19 107/59 (75) 99 9/3/17 21:01 43 21 116/57 (76) 98 06/12/17 21:00 43 16 95 06/12/17 20:31 43 27 125/61 (82) 95 06/12/17 20:30 41 23 100 06/12/17 20:00 96.3 56 18 106/63 (77) 97 06/12/17 20:00 56 06/12/17 20:00 56 35 106/63 (77) 97 06/12/17 19:01 39 17 109/53 (71) 99 06/12/17 19:00 41 25 88 06/12/17 18:30 46 30 111/56 (74) 06/12/17 18:12 41 33 107/54 (71) 97 06/12/17 18:01 57 15 78/43 (55) 06/12/17 18:00 64 06/12/17 18:00 64 20 06/12/17 17:30 42 21 103/57 (72) 06/12/17 17:01 39 19 112/61 (78) 06/12/17 17:00 39 20 06/12/17 16:30 57 18 100/56 (71) 100 06/12/17 16:01 97.6 41 14 96/50 (65) 100 06/12/17 16:00 41 06/12/17 16:00 41 17 100 06/12/17 15:00 43 17 06/12/17 14:31 38 18 122/67 (85) 99 06/12/17 14:00 35 06/12/17 14:00 35 14 121/63 (82) . Laboratory Tests Test 06/12/17 11:25 06/13/17 04:01 White Blood Count 16.1 TH/MM3 12.6 TH/MM3 Red Blood Count 4.39 MIL/MM3 4.57 MIL/MM3 Hemoglobin 13.7 GM/DL 14.5 GM/DL Hematocrit 43.5 % 45.1 % Mean Corpuscular Volume 99.0 FL 98.6 FL Mean Corpuscular Hemoglobin 31.3 PG 31.8 PG Mean Corpuscular Hemoglobin Concent 31.6 % 32.2 % Red Cell Distribution Width 19.6 % 19.0 % Platelet Count 84 TH/MM3 101 TH/MM3 Mean Platelet Volume 9.6 FL 9.6 FL Neutrophils (%) (Auto) 92.2 % 91.2 % Lymphocytes (%) (Auto) 3.5 % 3.7 % Monocytes (%) (Auto) 4.2 % 5.0 % Eosinophils (%) (Auto) 0.0 % 0.0 % Basophils (%) (Auto) 0.1 % 0.1 % Neutrophils # (Auto) 14.8 TH/MM3 11.5 TH/MM3 Lymphocytes # (Auto) 0.6 TH/MM3 0.5 TH/MM3 Monocytes # (Auto) 0.7 TH/MM3 0.6 TH/MM3 Eosinophils # (Auto) 0.0 TH/MM3 0.0 TH/MM3 Basophils # (Auto) 0.0 TH/MM3 0.0 TH/MM3 CBC Comment AUTO DIFF DIFF FINAL Differential Comment AUTO DIFF CONFIRMED Platelet Estimate LOW Platelet Morphology Comment NORMAL Laboratory Tests Test 06/12/17 09:18 06/13/17 04:01 Blood Urea Nitrogen 63 MG/DL 92 MG/DL Creatinine 11.38 MG/DL 15.08 MG/DL Random Glucose 126 MG/DL 101 MG/DL Total Protein 6.1 GM/DL Calcium Level 6.7 MG/DL 8.6 MG/DL Sodium Level 135 MEQ/L 129 MEQ/L Potassium Level 3.6 MEQ/L 4.2 MEQ/L Chloride Level 104 MEQ/L 95 MEQ/L Carbon Dioxide Level 17.9 MEQ/L 18.3 MEQ/L Anion Gap 13 MEQ/L 16 MEQ/L Estimat Glomerular Filtration Rate 6 ML/MIN 4 ML/MIN Protein Corrected Calcium 7.2 MG/DL Microbiology Date/Time Source Procedure Growth Status 06/12/17 15:10 Blood Peripheral Aerobic Blood Culture - Preliminary NO GROWTH IN 1 DAY Resulted 06/12/17 15:10 Blood Peripheral Anaerobic Blood Culture - Final QNS - SEE AEROBE REPORT Resulted 06/12/17 11:25 Blood Peripheral Aerobic Blood Culture - Preliminary NO GROWTH IN 1 DAY Resulted 06/12/17 11:25 Blood Peripheral Anaerobic Blood Culture - Preliminary NO GROWTH IN 1 DAY Resulted 06/10/17 15:25 Blood Peripheral Aerobic Blood Culture - Final Staph Sp Coagulase Negative Complete 06/10/17 15:25 Anaerobic Blood Culture - Final Staphylococcus Epidermidis Complete 06/10/17 15:25 Blood Peripheral Aerobic Blood Culture - Final Staph Sp Coagulase Negative Complete 06/10/17 15:25 Anaerobic Blood Culture - Final Staphylococcus Epidermidis Complete Imaging Last Impressions Chest X-Ray 06/10/17 0096 Signed Impressions: Service Date/Time: Saturday, June 10, 2017 15:36 - CONCLUSION: 1. Stable chronic interstitial changes. 2. No acute infiltrate. Narendra Barreto Jr., MD Physical Exam GENERAL: awake and alert, not in respiratory distress. SKIN: Warm and dry. No generalized rash, no ecchymoses and no evidence of embolic lesions. HEAD: Atraumatic. Normocephalic. No temporal wasting, or tenderness. EYES: [place] conjunctiva. No petechia or hemorrhage. Pupils equal, round and reactive to light. Extraocular movements full and intact. No scleral icterus. No injection or drainage. EARS, NOSE AND THROAT: Nose without bleeding or purulent nasal discharge. No sinus tenderness. Mucous membranes pink and moist. No oral lesions noted. No exudate. No oral thrush. NECK: Trachea midline. Supple and not tender, no meningeal signs CARDIOVASCULAR: Regular rate and rhythm. No murmurs, rubs or gallops heard RESPIRATORY: Clear to auscultation. Breath sounds equal bilaterally. No rales , wheezing or rhonchi ABDOMEN: Soft, non-tender, nondistended. Bowel sounds present and normoactive. No guarding. No rebound. No organomegaly. EXTREMITIES: No clubbing, cyanosis, or edema. Has carlos BKA, well healed stump. L thigh permacath site with no evidence of infection NEUROLOGICAL: Awake and alert. Cranial nerves grossly intact. Motor grossly within normal limits. PSYCHIATRIC: Normal affect, calm and cooperative. LINE: No evidence of infection - L groin permacath Assessment & Plan Remarks IMPRESSION Sepsis with shock on presentation - non-localizing, worrisome for line related sepsis - has had L groin permacath Coag Neg Staph line related likely ESRD on HD MWF - has AVF LUE, S/P 6 weeks IV Abx for wound infection post-op Central venous occlusion, problem with venous access PVD, S/P Carlos BKA SLE RECOMMENDATION Stop Cefepime Follow C/S Continue Vanco - will give with each HD To have permacath exchange Monitor progress Follow CBC D/W Louann Gee MD Jun 13, 2017 13:41
[2017-06-13] MEDS: SODIUM CHLORIDE 23.4% INJ 154 MEQ in DEXTROSE 10% INJ 1,000 ML IV SCH (16:45)
[2017-06-13] MEDS: ONDANSETRON HCL 4 MG/2 ML VIAL IV PRN (16:47)
[2017-06-13] MEDS: CHLORHEXIDINE GLUCONATE 2 % 1 PACK (2 CLOTHS) TOP SCH (22:24)
[2017-06-14] VITALS (17 sets, daily range): BP systolic 104–135; BP diastolic 51–74; PULSE 41–66; RESP 13–22; TEMP 97.8–98.1; O2SAT 90–100
[2017-06-14] MEDS: INSULIN NovoLIN REGULAR SUPPLEMENTAL SCALE SQ SCH ×5 (03:00→22:05)
[2017-06-14] MEDS: MIDODRINE 5 MG TAB PO SCH ×3 (03:07→21:05)
[2017-06-14 04:16] LABS: AUTOMATED NEUTROPHIL # 9.2 TH/MM3 (1.8-7.7); BASOPHIL % 0.2 % (0.0-2.0); LYMPH % 2.3 % (9.0-44.0); LYMPHOCYTE # 0.2 TH/MM3 (1.0-4.8); MEAN CELL VOLUME 96.7 FL (80.0-100.0); MEAN CORPUSCULAR HEMOGLOBIN 32.7 PG (27.0-34.0); MEAN CORPUSCULAR HGB CONC 33.8 % (32.0-36.0); MONO % 4.6 % (0.0-8.0); NEUT % 92.9 % (16.0-70.0); PLATELET COUNT 94 TH/MM3 (150-450); RED BLOOD COUNT 4.56 MIL/MM3 (4.50-5.90); RED CELL DISTRIBUTION WIDTH 18.7 % (11.6-17.2); WHITE BLOOD COUNT 9.9 TH/MM3 (4.0-11.0)
[2017-06-14 04:31] LABS: HEMO FLAGS AUTO DIFF
[2017-06-14 04:34] LABS: APTT (PATIENT) 40.4 SEC (24.3-30.1)
[2017-06-14 04:55] LABS: BICARBONATE 24.2 MEQ/L (21.0-32.0); POTASSIUM 3.9 MEQ/L (3.5-5.1)
[2017-06-14 05:02] LABS: PLATELET ESTIMATE SMEAR LOW (NORMAL); PLATELET MORPHOLOGY NORMAL (NORMAL); SCAN/DIFF AUTO DIFF CONFIRMED
[2017-06-14] MEDS: HYDROCORTISONE SOD SUCCINATE 100 MG VIAL IV PUSH SCH ×4 (05:15→22:04)
[2017-06-14] MEDS ORDERED: PHARMACY ORDERED LAB ONE (06:00)
--- NOTE | 2017-06-14 08:06 | HHI.CCPN ---
Subjective Remarks/Hospital Course 46 year-old -[place] male past medical history of end-stage renal disease diagnosed 9 years ago who is on intermittent hemodialysis Tuesday under the care of CLAU Umaña, peripheral arterial disease status post bilateral BKA, coagulation disorder on chronic anticoagulation with warfarin. He underwent hemodialysis today and he states afterwards he had a fever and felt lightheaded so he came to [facility] emergency department.. His temperature was 103 upon arrival. Heart rate is in the 80s to 90s. He states his blood pressure "typically runs low" in the 80s but blood pressure is 60/47 the emergency department. He states he has had a slight nonproductive cough for 2-3 days. He denies nausea, vomiting, abdominal pain, chest pain, hemoptysis, melena, bright red blood per rectum, headache, neck stiffness, tenderness or drainage at dialysis catheter site, remainder of ROS neg. He has recently been treated for enterococcus in a wound near his right upper extremity fistula. He was discharged 03/21/17 with wound care and was on vancomycin with vascular surgery followup. He states his wound has healed and he believes he is no longer receiving vancomycin at dialysis. He is a challenging historian. Dr. Altamirano has attempted L IJ CVL access unsuccessfully. Patient states he has multiple prior failed attempts at central vascular access and that his IJ and subclavians are "clotted off". He has h/o SVC thrombus in 2009 and he states h/o unsuccessful attempt at access in R femoral as well. He has a left femoral tunneled dialysis catheter exchange 09/13/16 by IR and 05/16/17. Blood cultures have been obtained in the emergency department. He has been given cefepime and vancomycin. His received 2 L normal saline in the ED. Started midodrine and started low dose phenylephrine via peripheral IV after discussion of risks and benefits with patient and his mother. In addition, he was hypoglycemic on arrival with glucose in 20s, given amp dextrose and glucose 54. Not diabetic or on insulin/ oral hypoglycemics. 06/11 Patient is lying in bed in NAD. Afebrile. On Neosyn 40 mics. s/p HD yesterday. 06/12 No events overnight. Neosyn down 10 mics. Afebrile. 06/13 Patient is lying in bed in NAD. Afebrile. Off Neosyn, remains on heparin drip. For HD today. 06/14 No events overnight. s/p HD yesterday with removal 1.5L. For PermCath exchange today by IR. Afebrile. Objective Vital Signs Date Time Temp Pulse Resp B/P (MAP) Pulse Ox O2 Delivery O2 Flow Rate FiO2 06/14/17 06:00 50 06/14/17 04:00 97.9 13 115/66 (82) 100 06/10/17 19:39 Room Air 06/10/17 16:19 2.00 Intake and Output 06/14/17 06/14/17 06/15/17 08:00 16:00 00:00 Intake Total 1170 ml Balance 1170 ml Result Diagram: 06/14/17 0351 06/14/17 0351 Other Results Laboratory Tests Test 06/14/17 03:51 White Blood Count 9.9 TH/MM3 Red Blood Count 4.56 MIL/MM3 Hemoglobin 14.9 GM/DL Hematocrit 44.0 % Mean Corpuscular Volume 96.7 FL Mean Corpuscular Hemoglobin 32.7 PG Mean Corpuscular Hemoglobin Concent 33.8 % Red Cell Distribution Width 18.7 % Platelet Count 94 TH/MM3 Mean Platelet Volume 9.3 FL Neutrophils (%) (Auto) 92.9 % Lymphocytes (%) (Auto) 2.3 % Monocytes (%) (Auto) 4.6 % Eosinophils (%) (Auto) 0.0 % Basophils (%) (Auto) 0.2 % Neutrophils # (Auto) 9.2 TH/MM3 Lymphocytes # (Auto) 0.2 TH/MM3 Monocytes # (Auto) 0.5 TH/MM3 Eosinophils # (Auto) 0.0 TH/MM3 Basophils # (Auto) 0.0 TH/MM3 CBC Comment AUTO DIFF Differential Comment AUTO DIFF CONFIRMED Platelet Estimate LOW Platelet Morphology Comment NORMAL Activated Partial Thromboplast Time 40.4 SEC Blood Urea Nitrogen 59 MG/DL Creatinine 11.55 MG/DL Random Glucose 96 MG/DL Calcium Level 8.4 MG/DL Sodium Level 135 MEQ/L Potassium Level 3.9 MEQ/L Chloride Level 97 MEQ/L Carbon Dioxide Level 24.2 MEQ/L Anion Gap 14 MEQ/L Estimat Glomerular Filtration Rate 6 ML/MIN Random Vancomycin Level 17.9 COMMENT Imaging Last Impressions Chest X-Ray 06/10/17 4398 Signed Impressions: Service Date/Time: Saturday, June 10, 2017 15:36 - CONCLUSION: 1. Stable chronic interstitial changes. 2. No acute infiltrate. Narendra Barreto Jr., MD Objective Remarks GENERAL:Patient is 46 yo lying in bed in NAD SKIN: Warm to touch, dry. HEAD: Atraumatic. Normocephalic. EYES: Pupils 2 mm and round and reactive bilaterally. No scleral icterus. No injection or drainage. ENT: No nasal bleeding or discharge. Mucous membranes pink. NECK: Trachea midline. No meningismus CARDIOVASCULAR: Regular rate and rhythm, sinus rhythm on monitor. No murmurs rubs or gallops. RESPIRATORY: No accessory muscle use. Clear to auscultation. Breath sounds equal bilaterally. On room air GASTROINTESTINAL: Abdomen soft, non-tender, nondistended. Bowel sounds present MUSCULOSKELETAL: Extremities without clubbing, cyanosis, or edema. Status post bilateral BKA with incisions healed. Right upper extremity AV fistula with palpable pulse. Left femoral tunnel catheter in place with no obvious drainage , erythema, tenderness. NEUROLOGICAL: Awake and alert. No obvious cranial nerve deficits. Motor grossly within normal limits. Normal speech. Moving all extremities to command. Intermittently speaking on the telephone during evaluation A/P Assessment and Plan NEURO: Avoid sedatives. Awake and alert RESP: ?h/o asthma Chronic bibasilar interstitial opacities Oxygen PRN keep sat >92% Albuterol every 2 hours as needed for wheezing. CXR 06/10 : Chronic interstitial changes, no acute infiltrate CV: s/p Septic shock Lactic acidemia- cleared Sinus bradycardia Received 2 L normal saline in the emergency department. Monitor HR and BP keep MAP>65mmHg. Midodrine 10 mg PO Q8 On stress dose steroids HC 50mg IV Q6 Check echo to eval LV function Patient has h/o significant vasc access issues not amenable to bedside placement. Prior failed placement in ED. Patient also with prior h/o subclavian thrombus and coagulopathy GI: May need IR for access/tunnel cath removal. On PO heart healthy diet FEN/RENAL: ESRD On IHD Tuesday/Tuesday/Tuesday Nephrology is following. Dr. Merlos Monitor renal function, avoid nephrotoxins. s/p HD yesterday with removal 1.5L Plan for PermCath exchange today by IR. ID: s/p Septic shock Staph Epi/Coag neg staph bacteremia Chest x-ray changes appear chronic. Concerning for line infection from hemodialysis catheter. Recent exchange of L femoral access site 05/16 performed in IR. Patient states previously unable to obtain bilateral IJ/subclavian and right femoral sites. Continue Vanco per ID, PermCath line likely source. For PermCath exchange today 06/10 BC: Staph Epi, coag negative staph. BC 06/12: NGTD HEME: ?SLE Coagulation d/o VICKI negative in past. On chronic warfarin but INR is subtherapeutic. Continue heparin drip and monitor PTT ENDO: Hypoglycemia- improved -?secondary to sepsis. on stress dose steroids- HC 50mg IV Q6, D10@20ml/hr for hypoglycemia Continue with SSI with accuchecks PROPH: Heparin drip will provide DVT prophylaxis. Protonix 40 mg by mouth daily for stress ulcer prophylaxis and history of GERD ACCESS: PIV L UE. L femoral tunneled dialysis catheter in place. For PermCath exchange today by IR. Level 3 Dania Greco MD Jun 14, 2017 08:06
[2017-06-14] MEDS: SODIUM CHLORIDE 0.9% FLUSH 10 ML FLUSH IV FLUSH SCH ×2 (08:46→21:06)
[2017-06-14] MEDS: PANTOPRAZOLE SOD 40 MG DELAYED RELEASE TAB PO SCH (08:46)
[2017-06-14] MEDS: DOCUSATE SODIUM 50 MG/SENNA 8.6 MG TAB PO SCH ×2 (08:46→21:00)
[2017-06-14] MEDS: ONDANSETRON HCL 4 MG/2 ML VIAL IV PRN ×2 (08:46→15:19)
--- NOTE | 2017-06-14 09:39 | HHI.IDPN ---
Subjective Subjective Remarks Patient is a 46-year-old male, with known ESRD, on hemodialysis Tuesday and Tuesday, presented to the hospital complaining of low blood pressure, and fever. Patient states his blood pressure is generally on the low side, but usually runs around 80-90 systolic. He had his usual hemodialysis on the day of admission, and his vitals were stable at that time. When he went home however, he felt like he had a fever, and he's check his blood pressure and it was in the 60s. He denies any respiratory complaint. He denies any shortness of breath. No abdominal pain, nausea vomiting or diarrhea. He has no significant urine output. He has not been around anyone sick. In the emergency room he had a blood pressure in the 60s, and he was febrile up to 103. His WBC is normal. Sedimentation rate 1. Lactic acid 4.2, and it's down to 1.1 today. Her temperatures are better. He is on pressors currently. He offers no specific complaint at the time my exam. Patient has known central venous occlusion, and venous access for his hemodialysis has been a problem. He currently has a left groin permacath, and it was last exchange last May 16. He has a right upper extremity AV fistula that was placed in February, and in March, he was admitted and treated for a wound infection in his AV fistula incision that grew out enterococcus. His blood cultures were negative at that time. He was treated aggressively with IV antibiotic and he completed treatment back in April. The wound has completely healed. His AV fistula has recently been access the last 2 times he had hemodialysis. Only one of the limb was access, and the groin permacath was also used. Notes reviewed Temps ok C/O nausea, and abdominal pain Vomited last night x 2 2 BC with Coag Neg Staph To have permacath exchange today BP good Antibiotics Vancomycin Cefepime Lines L groin permacath Past Medical History ESRD on hemodialysis SLE E CAD Hypertension Severe PVD History of DVT Anemia Hyperparathyroidism of renal origin Previous dialysis catheter line infection Known central venous occlusion Past Surgical History Bilateral BKA 2 fingers amputated Previous dialysis access in his left upper extremity Recent AV fistula creation in the right upper extremity Previous revascularization procedures for PVD Allergies: Coded Allergies: iodine (Unverified Allergy, Severe, blisters, 06/10/17) morphine (Unverified Allergy, Severe, Itching, 06/10/17) potassium iodide (Unverified Allergy, Severe, blisters, 06/10/17) povidone-iodine (Unverified Allergy, Severe, blisters, 06/10/17) sodium iodide (Unverified Allergy, Severe, blisters, 06/10/17) sodium iodide (Unverified Allergy, Severe, blisters, 06/10/17) *MDRO Multi-Drug Resistant Organism (Verified Adverse Reaction, Unknown, ) MRSA (sputum) - 01/2008 MRSA PCR Screen NEGAVTIVE- 09/10/16 & 09/14/16 Cleared per Infection Control Objective . Vital Signs Date Time Temp Pulse Resp B/P (MAP) Pulse Ox O2 Delivery O2 Flow Rate FiO2 06/14/17 06:00 50 06/14/17 04:00 97.9 49 13 115/66 (82) 100 06/14/17 04:00 49 06/14/17 02:00 49 06/14/17 00:00 50 06/14/17 00:00 98.0 50 18 111/58 (75) 96 06/13/17 22:00 51 06/13/17 20:00 61 06/13/17 20:00 98.4 61 22 97/55 (69) 95 06/13/17 18:00 62 06/13/17 16:12 81 26 106/69 (81) 06/13/17 16:00 68 06/13/17 16:00 97.6 68 18 101/64 (76) 06/13/17 15:59 66 17 99/61 (74) 06/13/17 15:56 69 17 101/60 (74) 06/13/17 15:45 64 20 99/61 (74) 06/13/17 15:30 81 24 94/56 (69) 06/13/17 15:15 83 25 85/51 (62) 06/13/17 15:00 67 28 101/59 (73) 99 06/13/17 14:45 67 23 99/58 (72) 06/13/17 14:30 53 16 107/62 (77) 06/13/17 14:15 68 23 107/59 (75) 100 06/13/17 14:00 53 20 99/52 (68) 89 9/4/17 14:00 53 06/13/17 13:15 49 13 102/63 (76) 06/13/17 13:00 48 14 102/60 (74) 06/13/17 12:45 48 17 98/56 (70) 06/13/17 12:30 46 20 114/64 (81) 06/13/17 12:00 97.8 41 17 121/63 (82) 86 06/13/17 12:00 41 06/13/17 11:30 53 27 117/72 (87) 100 06/13/17 11:03 41 16 114/57 (76) 06/13/17 11:00 42 16 06/13/17 10:31 39 18 112/60 (77) 06/13/17 10:00 40 06/13/17 10:00 40 16 134/65 (88) . Laboratory Tests Test 06/12/17 11:25 06/13/17 04:01 06/14/17 03:51 White Blood Count 16.1 TH/MM3 12.6 TH/MM3 9.9 TH/MM3 Red Blood Count 4.39 MIL/MM3 4.57 MIL/MM3 4.56 MIL/MM3 Hemoglobin 13.7 GM/DL 14.5 GM/DL 14.9 GM/DL Hematocrit 43.5 % 45.1 % 44.0 % Mean Corpuscular Volume 99.0 FL 98.6 FL 96.7 FL Mean Corpuscular Hemoglobin 31.3 PG 31.8 PG 32.7 PG Mean Corpuscular Hemoglobin Concent 31.6 % 32.2 % 33.8 % Red Cell Distribution Width 19.6 % 19.0 % 18.7 % Platelet Count 84 TH/MM3 101 TH/MM3 94 TH/MM3 Mean Platelet Volume 9.6 FL 9.6 FL 9.3 FL Neutrophils (%) (Auto) 92.2 % 91.2 % 92.9 % Lymphocytes (%) (Auto) 3.5 % 3.7 % 2.3 % Monocytes (%) (Auto) 4.2 % 5.0 % 4.6 % Eosinophils (%) (Auto) 0.0 % 0.0 % 0.0 % Basophils (%) (Auto) 0.1 % 0.1 % 0.2 % Neutrophils # (Auto) 14.8 TH/MM3 11.5 TH/MM3 9.2 TH/MM3 Lymphocytes # (Auto) 0.6 TH/MM3 0.5 TH/MM3 0.2 TH/MM3 Monocytes # (Auto) 0.7 TH/MM3 0.6 TH/MM3 0.5 TH/MM3 Eosinophils # (Auto) 0.0 TH/MM3 0.0 TH/MM3 0.0 TH/MM3 Basophils # (Auto) 0.0 TH/MM3 0.0 TH/MM3 0.0 TH/MM3 CBC Comment AUTO DIFF DIFF FINAL AUTO DIFF Differential Comment AUTO DIFF CONFIRMED AUTO DIFF CONFIRMED Platelet Estimate LOW LOW Platelet Morphology Comment NORMAL NORMAL Laboratory Tests Test 06/13/17 04:01 06/14/17 03:51 Blood Urea Nitrogen 92 MG/DL 59 MG/DL Creatinine 15.08 MG/DL 11.55 MG/DL Random Glucose 101 MG/DL 96 MG/DL Calcium Level 8.6 MG/DL 8.4 MG/DL Sodium Level 129 MEQ/L 135 MEQ/L Potassium Level 4.2 MEQ/L 3.9 MEQ/L Chloride Level 95 MEQ/L 97 MEQ/L Carbon Dioxide Level 18.3 MEQ/L 24.2 MEQ/L Anion Gap 16 MEQ/L 14 MEQ/L Estimat Glomerular Filtration Rate 4 ML/MIN 6 ML/MIN Microbiology Date/Time Source Procedure Growth Status 06/14/17 03:51 Blood Peripheral Aerobic Blood Culture Pending Received 06/14/17 03:51 Blood Peripheral Anaerobic Blood Culture Pending Received 06/12/17 15:10 Blood Peripheral Aerobic Blood Culture - Preliminary NO GROWTH IN 1 DAY Resulted 06/12/17 15:10 Blood Peripheral Anaerobic Blood Culture - Final QNS - SEE AEROBE REPORT Resulted 06/12/17 11:25 Blood Peripheral Aerobic Blood Culture - Preliminary NO GROWTH IN 1 DAY Resulted 06/12/17 11:25 Blood Peripheral Anaerobic Blood Culture - Preliminary NO GROWTH IN 1 DAY Resulted Imaging Last Impressions Chest X-Ray 06/10/17 1436 Signed Impressions: Service Date/Time: Saturday, June 10, 2017 15:36 - CONCLUSION: 1. Stable chronic interstitial changes. 2. No acute infiltrate. Narendra Barreto Jr., MD Physical Exam GENERAL: awake and alert, not in respiratory distress. SKIN: Warm and dry. No generalized rash, no ecchymoses and no evidence of embolic lesions. HEAD: Atraumatic. Normocephalic. No temporal wasting, or tenderness. EYES: Bejou conjunctiva. No petechia or hemorrhage. Pupils equal, round and reactive to light. Extraocular movements full and intact. No scleral icterus. No injection or drainage. EARS, NOSE AND THROAT: Nose without bleeding or purulent nasal discharge. No sinus tenderness. Mucous membranes pink and moist. No oral lesions noted. No exudate. No oral thrush. NECK: Trachea midline. Supple and not tender, no meningeal signs CARDIOVASCULAR: Regular rate and rhythm. No murmurs, rubs or gallops heard RESPIRATORY: Clear to auscultation. Breath sounds equal bilaterally. No rales , wheezing or rhonchi ABDOMEN: Soft, nondistended, with diffuse abdominal tenderness. Bowel sounds present and normoactive. No guarding. No rebound. No organomegaly. EXTREMITIES: No clubbing, cyanosis, or edema. Has carlos BKA, well healed stump. L thigh permacath site with no evidence of infection NEUROLOGICAL: Grossly non-focal PSYCHIATRIC: Normal affect, calm and cooperative. LINE: No evidence of infection - L groin permacath Assessment & Plan Remarks IMPRESSION Sepsis with shock on presentation - non-localizing, worrisome for line related sepsis - has had L groin permacath Coag Neg Staph line related likely ESRD on HD MWF - has AVF LUE, S/P 6 weeks IV Abx for wound infection post-op Central venous occlusion, problem with venous access PVD, S/P Carlos BKA SLE Abdominal pain, N/V, etiology? RECOMMENDATION Follow C/S Continue Vanco - will give with each HD - to cover (+) BC with Staph epi Stop Cefepime To have permacath exchange today Check amylase, lipase Monitor GI symptoms Monitor progress Louann Barney MD Jun 14, 2017 09:39
--- NOTE | 2017-06-14 10:13 | PD.VS.PN ---
Subjective Subjective/Hospital Course Pt laying in bed c/o nausea Pt denies hand pain/weakness (Stephie Cartagena) Objective Vitals/I&O Date Time Temp Pulse Resp B/P (MAP) Pulse Ox O2 Delivery O2 Flow Rate FiO2 06/14/17 06:00 50 06/14/17 04:00 97.9 49 13 115/66 (82) 100 06/14/17 04:00 49 06/14/17 02:00 49 06/14/17 00:00 50 06/14/17 00:00 98.0 50 18 111/58 (75) 96 06/13/17 22:00 51 06/13/17 20:00 61 06/13/17 20:00 98.4 61 22 97/55 (69) 95 06/13/17 18:00 62 06/13/17 16:12 81 26 106/69 (81) 06/13/17 16:00 68 06/13/17 16:00 97.6 68 18 101/64 (76) 06/13/17 15:59 66 17 99/61 (74) 06/13/17 15:56 69 17 101/60 (74) 06/13/17 15:45 64 20 99/61 (74) 06/13/17 15:30 81 24 94/56 (69) 06/13/17 15:15 83 25 85/51 (62) 06/13/17 15:00 67 28 101/59 (73) 99 06/13/17 14:45 67 23 99/58 (72) 06/13/17 14:30 53 16 107/62 (77) 06/13/17 14:15 68 23 107/59 (75) 100 06/13/17 14:00 53 20 99/52 (68) 89 06/13/17 14:00 53 06/13/17 13:15 49 13 102/63 (76) 06/13/17 13:00 48 14 102/60 (74) 06/13/17 12:45 48 17 98/56 (70) 06/13/17 12:30 46 20 114/64 (81) 06/13/17 12:00 97.8 41 17 121/63 (82) 86 06/13/17 12:00 41 06/13/17 11:30 53 27 117/72 (87) 100 06/13/17 11:03 41 16 114/57 (76) 06/13/17 11:00 42 16 06/13/17 10:31 39 18 112/60 (77) 06/13/17 10:00 40 06/13/17 10:00 40 16 134/65 (88) 06/14/17 06/14/17 06/14/17 06:59 14:59 22:59 Intake Total 1170 ml Balance 1170 ml Physical Exam GENERAL: A&OX3, NAD, GCS15 SKIN: Warm and dry/ R AVF w/ palpable thrill Pt denies hand pain (Stephie Cartagena) Laboratory Laboratory Tests Test 06/14/17 03:51 White Blood Count 9.9 Red Blood Count 4.56 Hemoglobin 14.9 Hematocrit 44.0 Mean Corpuscular Volume 96.7 Mean Corpuscular Hemoglobin 32.7 Mean Corpuscular Hemoglobin Concent 33.8 Red Cell Distribution Width 18.7 Platelet Count 94 Mean Platelet Volume 9.3 Neutrophils (%) (Auto) 92.9 Lymphocytes (%) (Auto) 2.3 Monocytes (%) (Auto) 4.6 Eosinophils (%) (Auto) 0.0 Basophils (%) (Auto) 0.2 Neutrophils # (Auto) 9.2 Lymphocytes # (Auto) 0.2 Monocytes # (Auto) 0.5 Eosinophils # (Auto) 0.0 Basophils # (Auto) 0.0 CBC Comment AUTO DIFF Differential Comment AUTO DIFF CONFIRMED Platelet Estimate LOW Platelet Morphology Comment NORMAL Activated Partial Thromboplast Time 40.4 Blood Urea Nitrogen 59 Creatinine 11.55 Random Glucose 96 Calcium Level 8.4 Sodium Level 135 Potassium Level 3.9 Chloride Level 97 Carbon Dioxide Level 24.2 Anion Gap 14 Estimat Glomerular Filtration Rate 6 Random Vancomycin Level 17.9 Date/Time Source Procedure Growth Status 06/14/17 03:51 Blood Peripheral Aerobic Blood Culture Pending Received 06/14/17 03:51 Blood Peripheral Anaerobic Blood Culture Pending Received (Stephie Cartagena) Assessment and Plan Plan Pt w/ known SVC occlusion and HD dependence with a groin catheter, admitted for presumptive catheter infection. He had a wound that was related to edema but that has ultimately healed. As an outpatient, he had his access cleared for use Pt w/ a mature AVF Plan Pt scheduled for a fistulagram tomorrow w/ Dr. Plascencia Procedure explained to pt/ questions answered Consent signed and placed in the chart NPO after midnight Stephie CASTANEDA [facility] [phone] (Stephie Cartagena) Plan Because of difficulty with HD will schedule for fistulogram tomorrow (Wed) (Chon Plascencia MD) Stephie Cartagena Jun 14, 2017 10:13 Chon Plascencia MD Jun 14, 2017 10:17
[2017-06-14 10:22] LABS: AMYLASE 136 U/L (25-115)
--- NOTE | 2017-06-14 10:35 | HHI.NPPN ---
Subjective History of Present Illness This patient is a 46-year-old male with a history of end-stage renal disease, SLE, hypertension, peripheral vascular disease as well as secondary hyperparathyroidism of renal disease. Unfortunately the patient has had multiple dialysis accesses including dialysis shunts and dialysis catheters in the past complicated by access failure as well as infection. Patient now has very limited options for dialysis access. Presently we are relying on a left femoral dialysis line for access. Fortunately vessel surgery was able to create a left arm AV dialysis fistula back in February. It has matured somewhat but not ideally and presently we are using one needle in the fistula while port at the dialysis line has been used for dialysis access. We have not yet tried to use 2 needles in the AV dialysis shunt. Patient presents now with a history of chills, fever postdialysis yesterday and was noted to be hypotensive on presentation with blood pressures in the 60s. Patient's blood pressure has since improved however. Blood cultures negative 24 hours at time of consultation. Patient did receive cefepime and vancomycin since admission. Infectious disease on board.. Interval History Reports abdominal pain, N/V today. Vomited x2. Lower abdominal pain. Does not make urine. Says last BM was 2 days ago. (Gladis Cole) Review of Systems Gastrointestinal Gastrointestinal: Abdominal Pain, Nausea & Vomiting (Gladis Cole) Objective Data Data Vital Signs Date Time Temp Pulse Resp B/P (MAP) Pulse Ox O2 Delivery O2 Flow Rate FiO2 06/14/17 06:00 50 06/14/17 04:00 97.9 49 13 115/66 (82) 100 06/14/17 04:00 49 06/14/17 02:00 49 06/14/17 00:00 50 06/14/17 00:00 98.0 50 18 111/58 (75) 96 06/13/17 22:00 51 06/13/17 20:00 61 06/13/17 20:00 98.4 61 22 97/55 (69) 95 06/13/17 18:00 62 06/13/17 16:12 81 26 106/69 (81) 06/13/17 16:00 68 06/13/17 16:00 97.6 68 18 101/64 (76) 06/13/17 15:59 66 17 99/61 (74) 06/13/17 15:56 69 17 101/60 (74) 06/13/17 15:45 64 20 99/61 (74) 06/13/17 15:30 81 24 94/56 (69) 06/13/17 15:15 83 25 85/51 (62) 06/13/17 15:00 67 28 101/59 (73) 99 06/13/17 14:45 67 23 99/58 (72) 06/13/17 14:30 53 16 107/62 (77) 06/13/17 14:15 68 23 107/59 (75) 100 06/13/17 14:00 53 20 99/52 (68) 89 06/13/17 14:00 53 06/13/17 13:15 49 13 102/63 (76) 06/13/17 13:00 48 14 102/60 (74) 06/13/17 12:45 48 17 98/56 (70) 06/13/17 12:30 46 20 114/64 (81) 06/13/17 12:00 97.8 41 17 121/63 (82) 86 06/13/17 12:00 41 06/13/17 11:30 53 27 117/72 (87) 100 06/13/17 11:03 41 16 114/57 (76) 06/13/17 11:00 42 16 06/13/17 10:31 39 18 112/60 (77) (Gladis Cole) -: 06/14/17 0351 06/14/17 0351 Microbiology 06/14/17 Aerobic Blood Culture, Received Pending 06/14/17 Anaerobic Blood Culture, Received Pending Imaging Last Impressions Chest X-Ray 06/10/17 1436 Signed Impressions: Service Date/Time: Saturday, June 10, 2017 15:36 - CONCLUSION: 1. Stable chronic interstitial changes. 2. No acute infiltrate. Narendra Barreto Jr., MD Medication Review Current Medications Medications (Trade) Dose Ordered Sig/Nohelia Route Start Time Stop Time Status Last Admin Phenylephrine HCl 80 mg/Dextrose 500 ml @ 15 mls/hr TITRATE PRN IV 06/10/17 20:00 06/10/17 23:28 (Brethine Inj) 1 mg UNSCH PRN SQ 06/10/17 18:30 (NS Flush) 2 ml UNSCH PRN IV FLUSH 06/10/17 18:30 (NS Flush) 2 ml BID IV FLUSH 06/10/17 21:00 06/14/17 08:46 (Zofran Inj) 4 mg Q6H PRN IV 06/10/17 18:30 06/14/17 08:46 (Albuterol Neb) 2.5 mg Q2HR NEB PRN INH 06/10/17 18:30 Miscellaneous Information 1 Q361D XX 06/10/17 18:30 (Chlorhexidine 2% Cloth) 3 pack Taper DAILY@04 TOP 06/11/17 04:00 06/07/18 03:59 06/13/17 22:24 (Chlorhexidine 2% Cloth) 3 pack UNSCH PRN TOP 06/10/17 18:30 (Angelika-Colace) 1 tab BID PO 06/10/17 21:00 06/13/17 20:56 (Milk Of Magnesia Liq) 30 ml Q12H PRN PO 06/10/17 18:30 (Senokot) 17.2 mg Q12H PRN PO 06/10/17 18:30 (Dulcolax Supp) 10 mg DAILY PRN RECTAL 06/10/17 18:30 (Lactulose Liq) 30 ml DAILY PRN PO 06/10/17 18:30 (Proamatine) 10 mg Q8H PO 06/10/17 20:00 06/14/17 03:07 (Protonix) 40 mg DAILY PO 06/10/17 19:30 06/12/17 09:38 Heparin Sodium/ Dextrose 250 ml @ 13.5 mls/hr TITRATE PRN IV 06/10/17 20:00 06/13/17 04:24 (D50w (Vial) Inj) 50 ml UNSCH PRN IV 06/11/17 10:00 (Glucagon Inj) 1 mg UNSCH PRN OTHER 06/11/17 10:00 (SoluCORTEF INJ) 50 mg Q6H IV PUSH 06/11/17 11:00 06/14/17 05:15 (NovoLIN R SUPPLEMENTAL SCALE) 1 Q4H SQ 06/11/17 15:00 Pharmacy Profile Note 0 ml @ 0 mls/hr UNSCH OTHER 06/12/17 14:00 Sodium Chloride 1,000 ml @ 0 mls/hr Q0M PRN OTHER 06/12/17 15:19 (Heparin Inj) 8,000 units UNSCH PRN IVF 06/12/17 15:30 Sodium Chloride 1,000 ml @ 200 mls/hr Q5H PRN IV 06/12/17 15:19 Sodium Chloride 1,000 ml @ 0 mls/hr Q0M PRN OTHER 06/12/17 15:19 (Mannitol Inj) 12.5 gm UNSCH PRN IV 06/12/17 15:30 (Albumin 25% Inj) 25 gm UNSCH PRN IV 06/12/17 15:30 06/13/17 13:30 (NS Flush) 5 ml UNSCH PRN IV FLUSH 06/12/17 15:30 (Heparin Inj) UNSCH PRN .XX 06/12/17 15:30 06/13/17 13:31 (Gentamicin (Dialysis) Inj) 20 mg UNSCH PRN IV 06/12/17 15:30 06/13/17 13:31 (Zofran Inj) 4 mg UNSCH PRN IV 06/12/17 15:30 (Tylenol) 650 mg UNSCH PRN PO 06/12/17 15:30 (Benadryl) 25 mg UNSCH PRN PO 06/12/17 15:30 (Nitrostat Sl) 0.4 mg UNSCH PRN SL 06/12/17 15:30 (Catapres) 0.1 mg UNSCH PRN PO 06/12/17 15:30 (Gelfoam 12 Mm/7 Mm Top) 1 foam UNSCH PRN TOP 06/12/17 15:30 Vancomycin HCl 1000 mg/Sodium Chloride 250 ml @ 250 mls/hr WITH DIALYSIS IV 06/13/17 13:45 Sodium Chloride 154 meq/Dextrose 1,038.5 ml @ 20 mls/hr Q24H IV 06/13/17 16:45 06/13/17 16:45 (Gladis Cole) Physical Exam General Appearance: Well Developed, Well Nourished, No Acute Distress, Comfortable (Gladis Cole) Eyes Eye Exam: Sclera White (Gladis Cole) Pulmonary Resp Exam: Clear Bilaterally, Breath Sounds Equal (Gladis Cole) Cardiology CV Exam: Regular, Normal Sinus Rhythm, Good Perfusion (Gladis Cole) Gastrointestinal/Abdomen GI Exam: Soft GI Remarks Tenderness to palpation lower quads. No rebound. No distention. BS active (Gladis Cole) Integumentary Skin Exam: Clear, Warm, Normal Turgor (Gladis Cole) Extremeties Extremities Exam: No Edema (Gladis Cole) Neurologic Neuro Exam: Alert, Awake (Gladis Cole) Assessment/Plan Discussed Condition With: Patient Problem List: (1) ESRD (end stage renal disease) on dialysis ICD Codes: N18.6 - End stage renal disease; Z99.2 - Dependence on renal dialysis Status: Chronic Plan: Pending PermCath exchange today. Will try to use venous in AVF tomorrow and arterial in PC. Continue HD MWF May consider discussing the case with interventional nephrology at a later date to see if an angiogram would be of any benefit to exclude stenoses. Medication should be adjusted for the patient's end-stage renal disease when indicated. Avoid gadolinium. (2) Sepsis ICD Codes: A41.9 - Sepsis, unspecified organism Status: Acute Plan: Secondary to line infection. PC exchange today (3) Complications, dialysis, catheter, mechanical ICD Codes: T82.49XA - Other complication of vascular dialysis catheter, initial encounter Status: Acute Plan: AVF not mature enough to cannulate with 2 needles. PC exchange today. Has severe PVD complicating access. (4) Abdominal pain ICD Codes: R10.9 - Unspecified abdominal pain Plan: New since last evening. Amylase/lipase ordered and appear normal. Will defer to CC (5) Lupus (systemic lupus erythematosus) ICD Codes: M32.9 - Systemic lupus erythematosus, unspecified (6) Deep vein thrombosis (DVT) ICD Codes: I82.409 - Acute embolism and thrombosis of unspecified deep veins of unspecified lower extremity Permanent Comment: The patient has been on anticoagulation therapy in the past however he is very poorly compliant in this regard . Last Edited By: Raul Merlos on Jun 11, 2017 13:34 (Gladis Cole) Plan The exam, history, and the medical decision-making described in the above note were completed with the assistance of the PANguyen. I reviewed and agree with the findings presented. (Clarence Merlos MD) Gladis Cole Jun 14, 2017 10:35 Clarence Merlos MD Jun 15, 2017 16:01
[2017-06-14] MEDS ORDERED: LIDOCAINE 2%/EPINEPHrine 1:100,000 20ML MDV ONE ×2 (15:49→15:51)
[2017-06-14] MEDS ORDERED: MIDAZOLAM HCL 2 MG/2 ML VIAL ONE ×2 (15:54)
--- NOTE | 2017-06-14 16:06 | ECHRPT ---
Indication: BRADYCARDIA CONCLUSIONS The left ventricular systolic function is normal with an estimated ejection fraction in the range of 55-60%. Mild concentric left ventricular hypertrophy. There is trace tricuspid valve regurgitation. BP: 135 / 74 HR: 56 Rhythm: Sinus MEASUREMENTS (Male / Female) Normal Values Technical Quality:Fair 2D ECHO LV Diastolic Diameter PLAX 3.8 cm 4.2 - 5.9 / 3.9 - 5.3 cm LV Systolic Diameter PLAX 2.7 cm IVS Diastolic Thickness 1.3 cm 0.6 - 1.0 / 0.6 - 0.9 cm LVPW Diastolic Thickness 1.3 cm 0.6 - 1.0 / 0.6 - 0.9 cm LV Relative Wall Thickness 0.7 RV Internal Dim ED PLAX 2.5 cm LVOT Diameter 2.5 cm LA Systolic Diameter LX 2.4 cm 3.0 - 4.0 / 2.7 - 3.8 cm LV Ejection Fraction MOD 4C 55.1 % LV Cardiac Index MOD 4C 2356.4 cm/minm LV Ejection Fraction 4C AL 56.2 % LV Cardiac Index 4C AL 2498.4 cm/minm M-MODE Aortic Root Diameter MM 3.4 cm AV Cusp Separation MM 2.3 cm DOPPLER AV Peak Velocity 153.0 cm/s AV Peak Gradient 9.4 mmHg LVOT Peak Velocity 84.9 cm/s LVOT Peak Gradient 2.9 mmHg AV Area Cont Eq pk 2.6 cm LV E' Lateral Velocity 9.5 cm/s LV E' Septal Velocity 7.4 cm/s TR Peak Velocity 254.0 cm/s TR Peak Gradient 25.8 mmHg PV Peak Velocity 60.3 cm/s PV Peak Gradient 1.5 mmHg FINDINGS LEFT VENTRICLE The left ventricular systolic function is normal with an estimated ejection fraction in the range of 55-60%. Normal left ventricular size. Mild concentric left ventricular hypertrophy. No regional wall motion abnormalities are present. RIGHT VENTRICLE Normal right ventricular size and systolic function. LEFT ATRIUM The left atrial size is normal. RIGHT ATRIUM The right atrial size is normal. ATRIAL SEPTUM Normal atrial septal thickness without atrial level shunting by limited color doppler interrogation. AORTA The aortic root and proximal ascending aorta are normal in size on limited imaging. MITRAL VALVE Structurally normal mitral valve. No mitral valve stenosis or regurgitation. AORTIC VALVE Trileaflet aortic valve. No aortic valve stenosis or regurgitation. TRICUSPID VALVE Structurally normal tricuspid valve. No tricuspid valve stenosis. There is trace tricuspid valve regurgitation. The estimated pulmonary arterial pressure is 36 mmHg. PULMONARY VALVE The pulmonary valve is not well visualized. VESSELS The inferior vena cava is normal in size. PERICARDIUM No pericardial effusion. Abdifatah Gomez DO (Electronically Signed) Final Date:14 June 2017 16:05
[2017-06-14] MEDS: SODIUM CHLORIDE 23.4% INJ 154 MEQ in DEXTROSE 10% INJ 1,000 ML IV SCH (16:45)
--- NOTE | 2017-06-14 16:53 | RADRPT ---
EXAM DATE/TIME: 06/14/2017 15:54 CORRECTION Corrected on: July 07, 2017; COMPARISON: No previous studies available for comparison. INDICATIONS : Patient is in need of an exchange of existing left sided groin Permacath due to possible infection. MEDICAL HISTORY : History of ESRD, hypotension, SVC syndrome, coagulation disorder, PAD, GERDm asthma. SURGICAL HISTORY : History of bilateral BKA, right upper extremity AVF. ENCOUNTER: Subsequent ACUITY: 4-6 days PAIN SCORE: 0/10 FLUORO TIME: 1.7 minutes IMAGE SERIES: 1 ACCESS: Left femoral vein MEDICATION(S): 1.) 3 mg midazolam (Versed) IV 2.) 150 mcg fentanyl (Sublimaze) IV 3.) 7100 units Heparin catheter lock DEVICE(S): 1.) 15 Romanian dual lumen 50 cm Jalloh II Plus catheter The patient was placed supine on the angiography table. The existing left femoral dialysis permacath and surrounding area was prepped in sterile fashion. Full sterile technique was used, including cap, mask, sterile gloves and gown and a large sterile sheet. Hand hygiene and 2% chlorhexidine and/or bet adine/alcohol prep was utilized per protocol for cutaneous antisepsis with appropriate dry time for s ite. The skin and subcutaneous tissues were infiltrated with lidocaine solution. Blunt dissection was utilized to free existing catheter from the subcutaneous tissues. Under direct fluoroscopic guidance , a hydrophilic guidewire was introduced and positioned into the right atrium. The existing catheter was removed intact. A new dialysis permacath was introduced and positioned with tip in the right atri um. The retention cuff was positioned into the subcutaneous tract. The catheter was secured with Prol indu suture. The patient tolerated the procedure well and was taken to the recovery area in stable con dition. Continuous pulse oxymetry and hemodynamic monitoring was performed throughout the procedure with cons cious sedation as outlined above. CONCLUSION: Uncomplicated fluoroscopic guided dialysis permacath exchange as described in detail above. Jeff Batista MD on July 07, 2017 at 17:06 Board Certified Radiologist. This report was verified electronically.
--- NOTE | 2017-06-14 17:58 | PD.RAD ---
Post Procedure Progress Note Pre Procedure Diagnosis: (1) End-stage renal disease on hemodialysis Post Procedure Diagnosis: (1) End-stage renal disease on hemodialysis Procedure Date: Jun 14, 2017 Supervising Radiologist: Jeff Batista Proceduralist/Assist: RT Ludy(R)(CV) Anesthesia: Local, Conscious Sedation Plan of Activity Patient to Unit: ROPU Patient Condition: Good See PACS Report for procedural detail/treatment Central Venous Access Device Procedure 1 Left Femoral Hemodialysis Catheter Tunneled Exchange dual lumen [place]: 15 Additional Detail: 55 cm Shubham II Jeff Batista MD Jun 14, 2017 17:58
[2017-06-14] MEDS ORDERED: SODIUM CHLORIDE 0.9% FLUSH 10 ML FLUSH IVF PRN (18:00)
[2017-06-14] MEDS ORDERED: HEPARIN SODIUM - IV 2,000 UNITS/2 ML VIAL IV FLUSH PRN (18:00)
[2017-06-15] VITALS (13 sets, daily range): BP systolic 101–146; BP diastolic 59–67; PULSE 39–68; RESP 13–20; TEMP 97.6–98.1; O2SAT 96–98
[2017-06-15] MEDS: INSULIN NovoLIN REGULAR SUPPLEMENTAL SCALE SQ SCH ×4 (03:00→23:00)
[2017-06-15] MEDS: CHLORHEXIDINE GLUCONATE 2 % 1 PACK (2 CLOTHS) TOP SCH (04:00)
[2017-06-15] MEDS: HYDROCORTISONE SOD SUCCINATE 100 MG VIAL IV PUSH SCH ×5 (04:15→23:00)
[2017-06-15] MEDS: MIDODRINE 5 MG TAB PO SCH ×3 (04:15→20:36)
[2017-06-15 06:25] LABS: APTT (PATIENT) 26.6 SEC (24.3-30.1)
[2017-06-15 06:29] LABS: AUTOMATED NEUTROPHIL # 10.2 TH/MM3 (1.8-7.7); BASOPHIL % 0.2 % (0.0-2.0); HEMATOCRIT 45.2 % (39.0-51.0); LYMPH % 2.8 % (9.0-44.0); LYMPHOCYTE # 0.3 TH/MM3 (1.0-4.8); MEAN CORPUSCULAR HGB CONC 32.3 % (32.0-36.0); MONO % 5.9 % (0.0-8.0); NEUT % 91.1 % (16.0-70.0); PLATELET COUNT 82 TH/MM3 (150-450); RED BLOOD COUNT 4.57 MIL/MM3 (4.50-5.90); RED CELL DISTRIBUTION WIDTH 19.5 % (11.6-17.2); WHITE BLOOD COUNT 11.2 TH/MM3 (4.0-11.0)
[2017-06-15 06:37] LABS: HEMO FLAGS AUTO DIFF
[2017-06-15 06:54] LABS: BICARBONATE 25.5 MEQ/L (21.0-32.0); POTASSIUM 4.3 MEQ/L (3.5-5.1)
[2017-06-15 08:23] LABS: SCAN/DIFF AUTO DIFF CONFIRMED
[2017-06-15] MEDS: PANTOPRAZOLE SOD 40 MG DELAYED RELEASE TAB PO SCH (09:43)
[2017-06-15] MEDS: DOCUSATE SODIUM 50 MG/SENNA 8.6 MG TAB PO SCH ×2 (09:43→20:36)
[2017-06-15] MEDS: SODIUM CHLORIDE 0.9% FLUSH 10 ML FLUSH IV FLUSH SCH ×2 (09:43→20:36)
[2017-06-15] MEDS: SODIUM CHLORIDE 23.4% INJ 154 MEQ in DEXTROSE 10% INJ 1,000 ML IV SCH ×2 (09:45→18:00)
--- NOTE | 2017-06-15 10:03 | HHI.IDPN ---
Subjective Subjective Remarks Patient is a 46-year-old male, with known ESRD, on hemodialysis Tuesday and Tuesday, presented to the hospital complaining of low blood pressure, and fever. Patient states his blood pressure is generally on the low side, but usually runs around 80-90 systolic. He had his usual hemodialysis on the day of admission, and his vitals were stable at that time. When he went home however, he felt like he had a fever, and he's check his blood pressure and it was in the 60s. He denies any respiratory complaint. He denies any shortness of breath. No abdominal pain, nausea vomiting or diarrhea. He has no significant urine output. He has not been around anyone sick. In the emergency room he had a blood pressure in the 60s, and he was febrile up to 103. His WBC is normal. Sedimentation rate 1. Lactic acid 4.2, and it's down to 1.1 today. Her temperatures are better. He is on pressors currently. He offers no specific complaint at the time my exam. Patient has known central venous occlusion, and venous access for his hemodialysis has been a problem. He currently has a left groin permacath, and it was last exchange last May 16. He has a right upper extremity AV fistula that was placed in February, and in March, he was admitted and treated for a wound infection in his AV fistula incision that grew out enterococcus. His blood cultures were negative at that time. He was treated aggressively with IV antibiotic and he completed treatment back in April. The wound has completely healed. His AV fistula has recently been access the last 2 times he had hemodialysis. Only one of the limb was access, and the groin permacath was also used. Notes reviewed D/W KIRK Yang ok Has new permacath - exchanged yesterday To get HD today To have fistulogram Has new (+) BC from 06/14 No abdominal pain No N/V today BP good Antibiotics Vancomycin Lines L groin permacath Past Medical History ESRD on hemodialysis SLE E CAD Hypertension Severe PVD History of DVT Anemia Hyperparathyroidism of renal origin Previous dialysis catheter line infection Known central venous occlusion Past Surgical History Bilateral BKA 2 fingers amputated Previous dialysis access in his left upper extremity Recent AV fistula creation in the right upper extremity Previous revascularization procedures for PVD Allergies: Coded Allergies: iodine (Unverified Allergy, Severe, blisters, 06/10/17) morphine (Unverified Allergy, Severe, Itching, 06/10/17) potassium iodide (Unverified Allergy, Severe, blisters, 06/10/17) povidone-iodine (Unverified Allergy, Severe, blisters, 06/10/17) sodium iodide (Unverified Allergy, Severe, blisters, 06/10/17) sodium iodide (Unverified Allergy, Severe, blisters, 06/10/17) Objective . Vital Signs Date Time Temp Pulse Resp B/P (MAP) Pulse Ox O2 Delivery O2 Flow Rate FiO2 06/15/17 06:00 39 06/15/17 04:00 41 06/15/17 04:00 97.6 41 13 120/65 (83) 96 06/15/17 02:00 44 06/15/17 00:00 97.9 46 20 127/59 (81) 96 06/15/17 00:00 46 06/14/17 22:00 41 06/14/17 20:00 47 06/14/17 20:00 97.9 47 15 108/64 (79) 90 06/14/17 19:00 48 21 95 06/14/17 18:30 47 22 96 06/14/17 18:00 45 06/14/17 18:00 98.1 44 21 104/51 (68) 97 06/14/17 17:30 49 20 95 06/14/17 17:15 50 21 96 06/14/17 17:00 98.0 66 18 114/62 (79) 95 06/14/17 17:00 97.9 66 22 104/51 (68) 95 06/14/17 16:00 52 06/14/17 14:00 49 06/14/17 12:00 56 06/14/17 12:00 97.8 56 15 135/74 (94) 98 06/14/17 10:00 49 . Laboratory Tests Test 06/14/17 03:51 06/15/17 04:37 White Blood Count 9.9 TH/MM3 11.2 TH/MM3 Red Blood Count 4.56 MIL/MM3 4.57 MIL/MM3 Hemoglobin 14.9 GM/DL 14.6 GM/DL Hematocrit 44.0 % 45.2 % Mean Corpuscular Volume 96.7 FL 99.0 FL Mean Corpuscular Hemoglobin 32.7 PG 32.0 PG Mean Corpuscular Hemoglobin Concent 33.8 % 32.3 % Red Cell Distribution Width 18.7 % 19.5 % Platelet Count 94 TH/MM3 82 TH/MM3 Mean Platelet Volume 9.3 FL 9.2 FL Neutrophils (%) (Auto) 92.9 % 91.1 % Lymphocytes (%) (Auto) 2.3 % 2.8 % Monocytes (%) (Auto) 4.6 % 5.9 % Eosinophils (%) (Auto) 0.0 % 0.0 % Basophils (%) (Auto) 0.2 % 0.2 % Neutrophils # (Auto) 9.2 TH/MM3 10.2 TH/MM3 Lymphocytes # (Auto) 0.2 TH/MM3 0.3 TH/MM3 Monocytes # (Auto) 0.5 TH/MM3 0.7 TH/MM3 Eosinophils # (Auto) 0.0 TH/MM3 0.0 TH/MM3 Basophils # (Auto) 0.0 TH/MM3 0.0 TH/MM3 CBC Comment AUTO DIFF AUTO DIFF Differential Comment AUTO DIFF CONFIRMED AUTO DIFF CONFIRMED Platelet Estimate LOW Platelet Morphology Comment NORMAL Laboratory Tests Test 06/14/17 03:51 06/15/17 04:37 Blood Urea Nitrogen 59 MG/DL 71 MG/DL Creatinine 11.55 MG/DL 13.37 MG/DL Random Glucose 96 MG/DL 84 MG/DL Calcium Level 8.4 MG/DL 8.6 MG/DL Sodium Level 135 MEQ/L 135 MEQ/L Potassium Level 3.9 MEQ/L 4.3 MEQ/L Chloride Level 97 MEQ/L 97 MEQ/L Carbon Dioxide Level 24.2 MEQ/L 25.5 MEQ/L Anion Gap 14 MEQ/L 13 MEQ/L Estimat Glomerular Filtration Rate 6 ML/MIN 5 ML/MIN Amylase Level 136 U/L Lipase 228 U/L Microbiology Date/Time Source Procedure Growth Status 06/14/17 03:51 Blood Peripheral Aerobic Blood Culture - Preliminary Gram Positive Cocci Resulted 06/14/17 03:51 Blood Peripheral Anaerobic Blood Culture Pending Resulted 06/12/17 15:10 Blood Peripheral Aerobic Blood Culture - Preliminary NO GROWTH IN 2 DAYS Resulted 06/12/17 15:10 Blood Peripheral Anaerobic Blood Culture - Final QNS - SEE AEROBE REPORT Resulted 06/12/17 11:25 Blood Peripheral Aerobic Blood Culture - Preliminary NO GROWTH IN 2 DAYS Resulted 06/12/17 11:25 Blood Peripheral Anaerobic Blood Culture - Preliminary NO GROWTH IN 2 DAYS Resulted Imaging Last Impressions Chest X-Ray 06/10/17 1436 Signed Impressions: Service Date/Time: Saturday, June 10, 2017 15:36 - CONCLUSION: 1. Stable chronic interstitial changes. 2. No acute infiltrate. Narendra Barreto Jr., MD Physical Exam GENERAL: awake and alert, not in respiratory distress. SKIN: Warm and dry. No generalized rash, no ecchymoses and no evidence of embolic lesions. HEAD: Atraumatic. Normocephalic. No temporal wasting, or tenderness. EYES: [place] conjunctiva. No petechia or hemorrhage. Pupils equal, round and reactive to light. Extraocular movements full and intact. No scleral icterus. No injection or drainage. EARS, NOSE AND THROAT: Nose without bleeding or purulent nasal discharge. No sinus tenderness. Mucous membranes pink and moist. No oral lesions noted. No exudate. No oral thrush. NECK: Trachea midline. Supple and not tender, no meningeal signs CARDIOVASCULAR: Regular rate and rhythm. No murmurs, rubs or gallops heard RESPIRATORY: Clear to auscultation. Breath sounds equal bilaterally. No rales , wheezing or rhonchi ABDOMEN: Soft, nondistended, with diffuse abdominal tenderness. Bowel sounds present and normoactive. No guarding. No rebound. No organomegaly. EXTREMITIES: No clubbing, cyanosis, or edema. Has jacqueline BKA, well healed stump. L thigh permacath site with no evidence of infection NEUROLOGICAL: Grossly non-focal PSYCHIATRIC: Normal affect, calm and cooperative. LINE: No evidence of infection - L groin permacath Assessment & Plan Remarks IMPRESSION Sepsis with shock on presentation, BP better - due line related sepsis - not a lot of options for HD due to venous occlusions - has had L groin permacath Coag Neg Staph line related - had line eschange 06/14 ESRD on HD MWF - has AVF LUE, S/P 6 weeks IV Abx for wound infection post-op Central venous occlusion, problem with venous access PVD, S/P Jacqueline BKA SLE Abdominal pain, N/V, etiology? better RECOMMENDATION Follow C/S Continue Vanco - will give with each HD - to cover (+) BC with Staph epi Repeat BC Monitor progress Explained plan to the patient D/W Louann Hart MD Jun 15, 2017 10:03
--- NOTE | 2017-06-15 11:17 | PD.VS.PN ---
Subjective Subjective/Hospital Course Pt laying in bed in NAD Pt awaits HD Pt denies N/V/Ab pain Pt denies hand pain/weakness Pt denied fever or chills (Stephie Cartagena) Objective Vitals/I&O Date Time Temp Pulse Resp B/P (MAP) Pulse Ox O2 Delivery O2 Flow Rate FiO2 06/15/17 10:00 46 06/15/17 08:00 98.1 46 14 140/67 (91) 97 06/15/17 08:00 46 06/15/17 06:00 39 06/15/17 04:00 41 06/15/17 04:00 97.6 41 13 120/65 (83) 96 06/15/17 02:00 44 06/15/17 00:00 97.9 46 20 127/59 (81) 96 06/15/17 00:00 46 06/14/17 22:00 41 06/14/17 20:00 47 06/14/17 20:00 97.9 47 15 108/64 (79) 90 06/14/17 19:00 48 21 95 06/14/17 18:30 47 22 96 06/14/17 18:00 45 06/14/17 18:00 98.1 44 21 104/51 (68) 97 06/14/17 17:30 49 20 95 06/14/17 17:15 50 21 96 06/14/17 17:00 98.0 66 18 114/62 (79) 95 06/14/17 17:00 97.9 66 22 104/51 (68) 95 06/14/17 16:00 52 06/14/17 14:00 49 06/14/17 12:00 56 06/14/17 12:00 97.8 56 15 135/74 (94) 98 06/15/17 06/15/17 06/15/17 07:00 15:00 23:00 Intake Total 568 ml Balance 568 ml (Stephie Cartagena) Laboratory Laboratory Tests Test 06/15/17 04:37 White Blood Count 11.2 Red Blood Count 4.57 Hemoglobin 14.6 Hematocrit 45.2 Mean Corpuscular Volume 99.0 Mean Corpuscular Hemoglobin 32.0 Mean Corpuscular Hemoglobin Concent 32.3 Red Cell Distribution Width 19.5 Platelet Count 82 Mean Platelet Volume 9.2 Neutrophils (%) (Auto) 91.1 Lymphocytes (%) (Auto) 2.8 Monocytes (%) (Auto) 5.9 Eosinophils (%) (Auto) 0.0 Basophils (%) (Auto) 0.2 Neutrophils # (Auto) 10.2 Lymphocytes # (Auto) 0.3 Monocytes # (Auto) 0.7 Eosinophils # (Auto) 0.0 Basophils # (Auto) 0.0 CBC Comment AUTO DIFF Differential Comment AUTO DIFF CONFIRMED Activated Partial Thromboplast Time 26.6 Blood Urea Nitrogen 71 Creatinine 13.37 Random Glucose 84 Calcium Level 8.6 Sodium Level 135 Potassium Level 4.3 Chloride Level 97 Carbon Dioxide Level 25.5 Anion Gap 13 Estimat Glomerular Filtration Rate 5 Random Vancomycin Level 17.3 Date/Time Source Procedure Growth Status 06/14/17 03:51 Blood Peripheral Aerobic Blood Culture - Preliminary Gram Positive Cocci Resulted 06/14/17 03:51 Blood Peripheral Anaerobic Blood Culture - Preliminary NO GROWTH IN 1 DAY Resulted Imaging Last 48 hours Impressions Catheter Placement X-Ray 06/14/17 0000 Signed Impressions: Service Date/Time: Wednesday, June 14, 2017 15:54 - CONCLUSION: Uncomplicated fluoroscopic-guided central venous permacath exchange as above. Jeff Batista MD (Stephie Cartagena) Assessment and Plan Assessment: (1) End-stage renal disease on hemodialysis Status: Acute (2) AVF (arteriovenous fistula) Status: Acute Plan Plan Pt scheduled for a Fistulogram today Pt NPO since midnight Stephie CASTANEDA [facility] [phone] (Stephie Cartagena) Plan Pt was getting HD when sent for - will postpone for today. Before AVF creation , the presence of SVC occlusion was discussed with Dr. Lewis and elevated venous pressures are expected. I do think imaging is warranted and will reschedule/ (Chon Plascencia MD) Stephie Cartagena Jun 15, 2017 11:17 Chon Plascencia MD Jun 15, 2017 16:24
--- NOTE | 2017-06-15 15:55 | HHI.NPPN ---
Subjective History of Present Illness This patient is a 46-year-old male with a history of end-stage renal disease, SLE, hypertension, peripheral vascular disease as well as secondary hyperparathyroidism of renal disease. Unfortunately the patient has had multiple dialysis accesses including dialysis shunts and dialysis catheters in the past complicated by access failure as well as infection. Patient now has very limited options for dialysis access. Presently we are relying on a left femoral dialysis line for access. Fortunately vessel surgery was able to create a left arm AV dialysis fistula back in February. It has matured somewhat but not ideally and presently we are using one needle in the fistula while port at the dialysis line has been used for dialysis access. We have not yet tried to use 2 needles in the AV dialysis shunt. Patient presents now with a history of chills, fever postdialysis yesterday and was noted to be hypotensive on presentation with blood pressures in the 60s. Patient's blood pressure has since improved however. Blood cultures negative 24 hours at time of consultation. Patient did receive cefepime and vancomycin since admission. Infectious disease on board.. Interval History Patient was seen during hemodialysis. Unfortunately the AV fistula is being utilized for return of blood but the elevated pressure is limiting blood flow. Patient will be having a fistulogram today. Patient is also complaining about the food at the hospital and wants to leave the facility. I advised him strongly against this indicating that his illness will most likely worsen if he leaves the hospital AGAINST MEDICAL ADVICE. Review of Systems Gastrointestinal Gastrointestinal: Abdominal Pain, Nausea & Vomiting Objective Data Data Vital Signs Date Time Temp Pulse Resp B/P (MAP) Pulse Ox O2 Delivery O2 Flow Rate FiO2 06/15/17 14:00 42 06/15/17 12:00 40 15 146/67 (93) 97 06/15/17 12:00 40 06/15/17 10:00 46 06/15/17 08:00 98.1 46 14 140/67 (91) 97 06/15/17 08:00 46 06/15/17 06:00 39 06/15/17 04:00 41 06/15/17 04:00 97.6 41 13 120/65 (83) 96 06/15/17 02:00 44 06/15/17 00:00 97.9 46 20 127/59 (81) 96 06/15/17 00:00 46 06/14/17 22:00 41 06/14/17 20:00 47 06/14/17 20:00 97.9 47 15 108/64 (79) 90 06/14/17 19:00 48 21 95 06/14/17 18:30 47 22 96 06/14/17 18:00 45 06/14/17 18:00 98.1 44 21 104/51 (68) 97 06/14/17 17:30 49 20 95 06/14/17 17:15 50 21 96 06/14/17 17:00 98.0 66 18 114/62 (79) 95 06/14/17 17:00 97.9 66 22 104/51 (68) 95 06/14/17 16:00 52 -: 06/15/17 0437 06/15/17 0437 Microbiology 06/15/17 Aerobic Blood Culture, Received Pending 06/15/17 Anaerobic Blood Culture, Received Pending 06/15/17 Aerobic Blood Culture, Received Pending 06/15/17 Anaerobic Blood Culture, Received Pending Physical Exam General Appearance: Well Developed, Well Nourished, No Acute Distress, Comfortable Eyes Eye Exam: Sclera White Pulmonary Resp Exam: Clear Bilaterally, Breath Sounds Equal Cardiology CV Exam: Regular, Normal Sinus Rhythm, Good Perfusion Gastrointestinal/Abdomen GI Exam: Soft Integumentary Skin Exam: Clear, Warm, Normal Turgor Extremeties Extremities Exam: No Edema Neurologic Neuro Exam: Alert, Awake Assessment/Plan Discussed Condition With: Patient Problem List: (1) ESRD (end stage renal disease) on dialysis ICD Codes: N18.6 - End stage renal disease; Z99.2 - Dependence on renal dialysis Status: Chronic Plan: AV fistula still functioning poorly with high venous pressure limiting blood flow return. Will be having a fistulogram today and hopefully a correctable cause will be found. PermCath however appears to be working well. Readings be determined whether or not repeat blood cultures post catheter exchange be negative however. Continue antibiotics as per infectious disease. Medication should be adjusted for the patient's end-stage renal disease when indicated. Avoid gadolinium. (2) Sepsis ICD Codes: A41.9 - Sepsis, unspecified organism Status: Acute Plan: I explained to the patient necessity of remaining in-house for evaluation and treatment and of the potential risks associated with leaving the hospital against medical advise including deterioration in clinical status and potential .. (3) Complications, dialysis, catheter, mechanical ICD Codes: T82.49XA - Other complication of vascular dialysis catheter, initial encounter Status: Acute Plan: AVF not mature enough to cannulate with 2 needles. PC exchange today. Has severe PVD complicating access. (4) Abdominal pain ICD Codes: R10.9 - Unspecified abdominal pain Plan: New since last evening. Amylase/lipase ordered and appear normal. Will defer to CC (5) Lupus (systemic lupus erythematosus) ICD Codes: M32.9 - Systemic lupus erythematosus, unspecified (6) Deep vein thrombosis (DVT) ICD Codes: I82.409 - Acute embolism and thrombosis of unspecified deep veins of unspecified lower extremity Permanent Comment: The patient has been on anticoagulation therapy in the past however he is very poorly compliant in this regard . Last Edited By: Raul Merlos on Jun 11, 2017 13:34 Clarence Merlos MD Jun 15, 2017 15:55
[2017-06-15] MEDS: GENTAMICIN SULFATE (DIALYSIS USE ONLY) 20 MG/2 ML VIAL IV PRN (16:09)
[2017-06-15] MEDS: VANCOMYCIN INJ 1,000 MG in SODIUM CHLOR 0.9% 250 ML INJ 250 ML IV SCH (16:10)
--- NOTE | 2017-06-15 16:20 | HHI.CCPN ---
Subjective Remarks/Hospital Course 46 year-old -[place] male past medical history of end-stage renal disease diagnosed 9 years ago who is on intermittent hemodialysis Tuesday under the care of CLAU Umaña, peripheral arterial disease status post bilateral BKA, coagulation disorder on chronic anticoagulation with warfarin. He underwent hemodialysis today and he states afterwards he had a fever and felt lightheaded so he came to [facility] emergency department.. His temperature was 103 upon arrival. Heart rate is in the 80s to 90s. He states his blood pressure "typically runs low" in the 80s but blood pressure is 60/47 the emergency department. He states he has had a slight nonproductive cough for 2-3 days. He denies nausea, vomiting, abdominal pain, chest pain, hemoptysis, melena, bright red blood per rectum, headache, neck stiffness, tenderness or drainage at dialysis catheter site, remainder of ROS neg. He has recently been treated for enterococcus in a wound near his right upper extremity fistula. He was discharged 03/21/17 with wound care and was on vancomycin with vascular surgery followup. He states his wound has healed and he believes he is no longer receiving vancomycin at dialysis. He is a challenging historian. Dr. Altamirano has attempted L IJ CVL access unsuccessfully. Patient states he has multiple prior failed attempts at central vascular access and that his IJ and subclavians are "clotted off". He has h/o SVC thrombus in 2009 and he states h/o unsuccessful attempt at access in R femoral as well. He has a left femoral tunneled dialysis catheter exchange 09/13/16 by IR and 05/16/17. Blood cultures have been obtained in the emergency department. He has been given cefepime and vancomycin. His received 2 L normal saline in the ED. Started midodrine and started low dose phenylephrine via peripheral IV after discussion of risks and benefits with patient and his mother. In addition, he was hypoglycemic on arrival with glucose in 20s, given amp dextrose and glucose 54. Not diabetic or on insulin/ oral hypoglycemics. 06/11 Patient is lying in bed in NAD. Afebrile. On Neosyn 40 mics. s/p HD yesterday. 06/12 No events overnight. Neosyn down 10 mics. Afebrile. 06/13 Patient is lying in bed in NAD. Afebrile. Off Neosyn, remains on heparin drip. For HD today. 06/14 No events overnight. s/p HD yesterday with removal 1.5L. For PermCath exchange today by IR. Afebrile. 06/15 patient is status post permacath exchange and IR yesterday. Plans for fistulogram this afternoon with Dr. Plascencia Objective Vital Signs Date Time Temp Pulse Resp B/P (MAP) Pulse Ox O2 Delivery O2 Flow Rate FiO2 06/15/17 14:00 42 06/15/17 12:00 15 146/67 (93) 97 06/15/17 08:00 98.1 Intake and Output 06/15/17 06/15/17 06/16/17 08:00 16:00 00:00 Intake Total 568 ml Output Total 1000 ml Balance 568 ml -1000 ml Result Diagram: 06/15/17 0437 06/15/17 0437 Imaging Last Impressions Catheter Placement X-Ray 06/14/17 0000 Signed Impressions: Service Date/Time: Wednesday, June 14, 2017 15:54 - CONCLUSION: Uncomplicated fluoroscopic-guided central venous permacath exchange as above. Jeff Batista MD Chest X-Ray 06/10/17 1436 Signed Impressions: Service Date/Time: Saturday, June 10, 2017 15:36 - CONCLUSION: 1. Stable chronic interstitial changes. 2. No acute infiltrate. Narendra Barreto Jr., MD Last Impressions Chest X-Ray 06/10/17 1436 Signed Impressions: Service Date/Time: Saturday, June 10, 2017 15:36 - CONCLUSION: 1. Stable chronic interstitial changes. 2. No acute infiltrate. Narendra Barreto Jr., MD Objective Remarks GENERAL: Well-developed well-nourished male is 46 yo lying in bed in NAD SKIN: Warm to touch, dry. HEAD: Atraumatic. Normocephalic. EYES: Pupils 2 mm and round and reactive bilaterally. No scleral icterus. No injection or drainage. ENT: No nasal bleeding or discharge. Mucous membranes pink. NECK: Trachea midline. No meningismus CARDIOVASCULAR: Regular rate and rhythm, sinus rhythm on monitor. No murmurs rubs or gallops. RESPIRATORY: No accessory muscle use. Clear to auscultation. Breath sounds equal bilaterally. On room air GASTROINTESTINAL: Abdomen soft, non-tender, nondistended. Bowel sounds present MUSCULOSKELETAL: Extremities without clubbing, cyanosis, or edema. Status post bilateral BKA with incisions healed. Right upper extremity AV fistula with palpable pulse. New Left femoral tunnel catheter in place with no obvious drainage, erythema, tenderness. NEUROLOGICAL: Awake and alert. No obvious cranial nerve deficits. Motor grossly within normal limits. Normal speech. Moving all extremities to command. A/P Assessment and Plan NEURO: Avoid sedatives. Awake and alert RESP: ?h/o asthma Chronic bibasilar interstitial opacities Oxygen PRN keep sat >92% Albuterol every 2 hours as needed for wheezing. CXR 06/10 : Chronic interstitial changes, no acute infiltrate CV: s/p Septic shock Lactic acidemia- cleared Sinus bradycardia Received 2 L normal saline in the emergency department. Monitor HR and BP keep MAP>65mmHg. Midodrine 10 mg PO Q8 On stress dose steroids HC 50mg IV Q6 Check echo to eval LV function Patient has h/o significant vasc access issues not amenable to bedside placement. Prior failed placement in ED. Patient also with prior h/o subclavian thrombus and coagulopathy GI: May need IR for access/tunnel cath removal. On PO heart healthy diet FEN/RENAL: ESRD On IHD Tuesday/Tuesday/Tuesday Nephrology is following. Dr. Merlos Monitor renal function, avoid nephrotoxins. s/p HD yesterday with removal 1.5L 06/14 PermCath exchange by IR. ID: s/p Septic shock Staph Epi/Coag neg staph bacteremia Chest x-ray changes appear chronic. Concerning for line infection from hemodialysis catheter. Recent exchange of L femoral access site 05/16 performed in IR. Patient states previously unable to obtain bilateral IJ/subclavian and right femoral sites. Continue Vanco per ID, PermCath line likely source. For PermCath exchange today 06/10 BC: Staph Epi, coag negative staph. BC 06/12: NGTD HEME: ?SLE Coagulation d/o VICKI negative in past. On chronic warfarin but INR is subtherapeutic. Continue heparin drip and monitor PTT Currently heparin on hold for scheduled fistulogram today will resume and transition to by mouth Coumadin ENDO: Hypoglycemia- improved -?secondary to sepsis. on stress dose steroids- HC 50mg IV Q6, D10@20ml/hr for hypoglycemia Continue with SSI with accuchecks PROPH: Heparin drip will provide DVT prophylaxis. Protonix 40 mg by mouth daily for stress ulcer prophylaxis and history of GERD ACCESS: PIV L UE. 06/14 New L femoral tunneled dialysis catheter in place . Level 2 Plan transfer to [facility] in .. Physician Venice Mosley MD Jun 15, 2017 16:20
[2017-06-15] MEDS: HEPARIN-D5W 25,000 U/250 ML 250 ML IV PRN (18:17)
[2017-06-15 23:34] LABS: APTT (PATIENT) 46.2 SEC (24.3-30.1)
[2017-06-16] VITALS (12 sets, daily range): BP systolic 84–142; BP diastolic 49–69; PULSE 37–59; RESP 10–16; TEMP 97.5–97.9; O2SAT 96–100
[2017-06-16] MEDS: INSULIN NovoLIN REGULAR SUPPLEMENTAL SCALE SQ SCH ×6 (03:00→23:00)
[2017-06-16] MEDS: CHLORHEXIDINE GLUCONATE 2 % 1 PACK (2 CLOTHS) TOP SCH (04:00)
[2017-06-16] MEDS: MIDODRINE 5 MG TAB PO SCH ×3 (04:26→20:00)
[2017-06-16] MEDS: HYDROCORTISONE SOD SUCCINATE 100 MG VIAL IV PUSH SCH ×4 (04:29→23:00)
[2017-06-16 05:22] LABS: HEMATOCRIT 44.8 % (39.0-51.0); MEAN CELL VOLUME 98.7 FL (80.0-100.0); MEAN CORPUSCULAR HEMOGLOBIN 32.4 PG (27.0-34.0); MEAN CORPUSCULAR HGB CONC 32.8 % (32.0-36.0); PLATELET COUNT 72 TH/MM3 (150-450); RED BLOOD COUNT 4.54 MIL/MM3 (4.50-5.90); RED CELL DISTRIBUTION WIDTH 19.3 % (11.6-17.2)
[2017-06-16 05:32] LABS: REVIEW FLAG FINAL
[2017-06-16 05:42] LABS: APTT (PATIENT) 40.4 SEC (24.3-30.1); INTERNATIONAL NORMALIZED RATIO 1.1 RATIO; PROTHROMBIN TIME - PATIENT 12.5 SEC (9.8-11.6)
[2017-06-16 05:53] LABS: BICARBONATE 25.9 MEQ/L (21.0-32.0); MAGNESIUM 2.2 MG/DL (1.5-2.5); POTASSIUM 3.5 MEQ/L (3.5-5.1)
[2017-06-16] MEDS: PANTOPRAZOLE SOD 40 MG DELAYED RELEASE TAB PO SCH (09:00)
[2017-06-16] MEDS: DOCUSATE SODIUM 50 MG/SENNA 8.6 MG TAB PO SCH ×2 (09:45→20:11)
[2017-06-16] MEDS: SODIUM CHLORIDE 0.9% FLUSH 10 ML FLUSH IV FLUSH SCH ×2 (09:45→20:11)
--- NOTE | 2017-06-16 10:26 | HHI.CCPN ---
Subjective Remarks/Hospital Course 46 year-old -[place] male past medical history of end-stage renal disease diagnosed 9 years ago who is on intermittent hemodialysis Tuesday under the care of CLAU Umaña, peripheral arterial disease status post bilateral BKA, coagulation disorder on chronic anticoagulation with warfarin. He underwent hemodialysis today and he states afterwards he had a fever and felt lightheaded so he came to [facility] emergency department.. His temperature was 103 upon arrival. Heart rate is in the 80s to 90s. He states his blood pressure "typically runs low" in the 80s but blood pressure is 60/47 the emergency department. He states he has had a slight nonproductive cough for 2-3 days. He denies nausea, vomiting, abdominal pain, chest pain, hemoptysis, melena, bright red blood per rectum, headache, neck stiffness, tenderness or drainage at dialysis catheter site, remainder of ROS neg. He has recently been treated for enterococcus in a wound near his right upper extremity fistula. He was discharged 03/21/17 with wound care and was on vancomycin with vascular surgery followup. He states his wound has healed and he believes he is no longer receiving vancomycin at dialysis. He is a challenging historian. Dr. Altamirano has attempted L IJ CVL access unsuccessfully. Patient states he has multiple prior failed attempts at central vascular access and that his IJ and subclavians are "clotted off". He has h/o SVC thrombus in 2009 and he states h/o unsuccessful attempt at access in R femoral as well. He has a left femoral tunneled dialysis catheter exchange 09/13/16 by IR and 05/16/17. Blood cultures have been obtained in the emergency department. He has been given cefepime and vancomycin. His received 2 L normal saline in the ED. Started midodrine and started low dose phenylephrine via peripheral IV after discussion of risks and benefits with patient and his mother. In addition, he was hypoglycemic on arrival with glucose in 20s, given amp dextrose and glucose 54. Not diabetic or on insulin/ oral hypoglycemics. 06/11 Patient is lying in bed in NAD. Afebrile. On Neosyn 40 mics. s/p HD yesterday. 06/12 No events overnight. Neosyn down 10 mics. Afebrile. 06/13 Patient is lying in bed in NAD. Afebrile. Off Neosyn, remains on heparin drip. For HD today. 06/14 No events overnight. s/p HD yesterday with removal 1.5L. For PermCath exchange today by IR. Afebrile. 06/15 patient is status post permacath exchange and IR yesterday. Plans for fistulogram this afternoon with Dr. Plascencia 06/16 No acute events overnight. Blood culture revealed fungemia (06/12). Repeat blood cultures pending. Patient continues on D10@20cc/hr for hypoglycemia. Patient continues on heparin infusion, plans for outpatient fistulogram patient will be transitioned to Coumadin today. Objective Vital Signs Date Time Temp Pulse Resp B/P (MAP) Pulse Ox O2 Delivery O2 Flow Rate FiO2 06/16/17 06:00 37 06/16/17 04:00 97.8 12 90/54 (66) 98 Intake and Output 06/16/17 06/16/17 06/17/17 08:00 16:00 00:00 Intake Total 796 ml Balance 796 ml Result Diagram: 06/16/17 0448 06/16/17 0448 Imaging Last Impressions Catheter Placement X-Ray 06/14/17 0000 Signed Impressions: Service Date/Time: Wednesday, June 14, 2017 15:54 - CONCLUSION: Uncomplicated fluoroscopic-guided central venous permacath exchange as above. Jeff Batista MD Chest X-Ray 06/10/17 1436 Signed Impressions: Service Date/Time: Saturday, June 10, 2017 15:36 - CONCLUSION: 1. Stable chronic interstitial changes. 2. No acute infiltrate. Narendra Barreto Jr., MD Last Impressions Chest X-Ray 06/10/17 1436 Signed Impressions: Service Date/Time: Saturday, June 10, 2017 15:36 - CONCLUSION: 1. Stable chronic interstitial changes. 2. No acute infiltrate. Narendra Barreto Jr., MD Objective Remarks BP 111/55 Pulse 48-55 GENERAL: Well-developed well-nourished male is 46 yo lying in bed in NAD SKIN: Warm to touch, dry. HEAD: Atraumatic. Normocephalic. EYES: Pupils 2 mm and round and reactive bilaterally. No scleral icterus. No injection or drainage. ENT: No nasal bleeding or discharge. Mucous membranes pink. NECK: Trachea midline. No meningismus CARDIOVASCULAR: Bradycardic rate and rhythm, sinus rhythm on monitor. No murmurs rubs or gallops. RESPIRATORY: No accessory muscle use. Clear to auscultation. Breath sounds equal bilaterally. On room air GASTROINTESTINAL: Abdomen soft, non-tender, nondistended. Bowel sounds present MUSCULOSKELETAL: Extremities without clubbing, cyanosis, or edema. Status post bilateral BKA with incisions healed. Right upper extremity AV fistula with palpable pulse. New Left femoral tunnel catheter in place with no obvious drainage, erythema, tenderness. NEUROLOGICAL: Awake and alert. No obvious cranial nerve deficits. Motor grossly within normal limits. Normal speech. Moving all extremities to commands. A/P Assessment and Plan NEURO: Avoid sedatives. Awake and alert RESP: ?h/o asthma Chronic bibasilar interstitial opacities Oxygen PRN keep sat >92% Albuterol every 2 hours as needed for wheezing. CXR 06/10 : Chronic interstitial changes, no acute infiltrate CV: s/p Septic shock Lactic acidemia- cleared Sinus bradycardia Received 2 L normal saline in the emergency department. Monitor HR and BP keep MAP>65mmHg. Midodrine 10 mg PO Q8 On stress dose steroids HC 50mg IV Q ECHO- EF 55-60%, no RWMA, trace TR, PAP 36mmHG Patient has h/o significant vasc access issues not amenable to bedside placement. Prior failed placement in ED. Patient also with prior h/o subclavian thrombus and coagulopathy GI: May need IR for access/tunnel cath removal. On PO heart healthy diet FEN/RENAL: ESRD On IHD Tuesday/Tuesday/Tuesday Nephrology is following. Dr. Merlos Monitor renal function, avoid nephrotoxins. s/p HD yesterday with removal 1.5L 06/14 PermCath exchange by IR. ID: s/p Septic shock Staph Epi/Coag neg staph bacteremia Chest x-ray changes appear chronic. Concerning for line infection from hemodialysis catheter. Recent exchange of L femoral access site 05/16 performed in IR. Patient states previously unable to obtain bilateral IJ/subclavian and right femoral sites. Continue Vanco per ID, PermCath line likely source. For PermCath exchange today 06/10: BC Staph Epi, coag negative staph. 06/12: BC Yeast 06/15: BC (post catheter exchange) pending HEME: ?SLE Coagulation d/o VICKI negative in past. On chronic warfarin but INR is subtherapeutic. Continue heparin drip and monitor PTT Heparin infusion restarted and transition to by mouth Coumadin today ENDO: Hypoglycemia- improved -?secondary to sepsis. on stress dose steroids- HC 50mg IV Q6, D10@20ml/hr for hypoglycemia Continue with SSI with accuchecks, and close glucose monitoring PROPH: Heparin drip will provide DVT prophylaxis. Protonix 40 mg by mouth daily for stress ulcer prophylaxis and history of GERD ACCESS: PIV L UE. 06/14 New L femoral tunneled dialysis catheter in place . Level [address] Barney, MsRadha CASTANEDA ([facility]), and [employer]ING [employer] at bedside Plan transfer to [facility] in a.. Physician Venice Mosley MD Jun 16, 2017 10:26
--- NOTE | 2017-06-16 10:47 | HHI.IDPN ---
Subjective Subjective Remarks Patient is a 46-year-old male, with known ESRD, on hemodialysis Tuesday and Tuesday, presented to the hospital complaining of low blood pressure, and fever. Patient states his blood pressure is generally on the low side, but usually runs around 80-90 systolic. He had his usual hemodialysis on the day of admission, and his vitals were stable at that time. When he went home however, he felt like he had a fever, and he's check his blood pressure and it was in the 60s. He denies any respiratory complaint. He denies any shortness of breath. No abdominal pain, nausea vomiting or diarrhea. He has no significant urine output. He has not been around anyone sick. In the emergency room he had a blood pressure in the 60s, and he was febrile up to 103. His WBC is normal. Sedimentation rate 1. Lactic acid 4.2, and it's down to 1.1 today. Her temperatures are better. He is on pressors currently. He offers no specific complaint at the time my exam. Patient has known central venous occlusion, and venous access for his hemodialysis has been a problem. He currently has a left groin permacath, and it was last exchange last May 16. He has a right upper extremity AV fistula that was placed in February, and in March, he was admitted and treated for a wound infection in his AV fistula incision that grew out enterococcus. His blood cultures were negative at that time. He was treated aggressively with IV antibiotic and he completed treatment back in April. The wound has completely healed. His AV fistula has recently been access the last 2 times he had hemodialysis. Only one of the limb was access, and the groin permacath was also used. Notes reviewed D/W Dr Alberto Evans BC from 06/12 with yeast Temps ok Has new permacath - exchanged 06/14 Fistulogram to be done as outpatient Has new (+) BC with GPC from 06/14 No abdominal pain No N/V today BP good Antibiotics Vancomycin Lines L groin permacath Past Medical History ESRD on hemodialysis SLE E CAD Hypertension Severe PVD History of DVT Anemia Hyperparathyroidism of renal origin Previous dialysis catheter line infection Known central venous occlusion Past Surgical History Bilateral BKA 2 fingers amputated Previous dialysis access in his left upper extremity Recent AV fistula creation in the right upper extremity Previous revascularization procedures for PVD Allergies: Coded Allergies: iodine (Unverified Allergy, Severe, blisters, 06/10/17) morphine (Unverified Allergy, Severe, Itching, 06/10/17) potassium iodide (Unverified Allergy, Severe, blisters, 06/10/17) povidone-iodine (Unverified Allergy, Severe, blisters, 06/10/17) sodium iodide (Unverified Allergy, Severe, blisters, 06/10/17) sodium iodide (Unverified Allergy, Severe, blisters, 06/10/17) Objective . Vital Signs Date Time Temp Pulse Resp B/P (MAP) Pulse Ox O2 Delivery O2 Flow Rate FiO2 06/16/17 06:00 37 06/16/17 04:00 42 06/16/17 04:00 97.8 42 12 90/54 (66) 98 06/16/17 02:00 51 06/16/17 00:00 56 06/16/17 00:00 97.9 50 10 84/49 (61) 96 06/15/17 22:00 68 06/15/17 20:00 67 06/15/17 20:00 97.6 67 19 101/59 (73) 06/15/17 19:41 98 06/15/17 18:00 50 06/15/17 16:00 62 06/15/17 16:00 97.7 62 17 104/63 (77) 96 06/15/17 14:00 42 06/15/17 12:00 40 15 146/67 (93) 97 06/15/17 12:00 40 . Laboratory Tests Test 06/15/17 04:37 06/16/17 04:48 White Blood Count 11.2 TH/MM3 9.0 TH/MM3 Red Blood Count 4.57 MIL/MM3 4.54 MIL/MM3 Hemoglobin 14.6 GM/DL 14.7 GM/DL Hematocrit 45.2 % 44.8 % Mean Corpuscular Volume 99.0 FL 98.7 FL Mean Corpuscular Hemoglobin 32.0 PG 32.4 PG Mean Corpuscular Hemoglobin Concent 32.3 % 32.8 % Red Cell Distribution Width 19.5 % 19.3 % Platelet Count 82 TH/MM3 72 TH/MM3 Mean Platelet Volume 9.2 FL 9.2 FL Neutrophils (%) (Auto) 91.1 % Lymphocytes (%) (Auto) 2.8 % Monocytes (%) (Auto) 5.9 % Eosinophils (%) (Auto) 0.0 % Basophils (%) (Auto) 0.2 % Neutrophils # (Auto) 10.2 TH/MM3 Lymphocytes # (Auto) 0.3 TH/MM3 Monocytes # (Auto) 0.7 TH/MM3 Eosinophils # (Auto) 0.0 TH/MM3 Basophils # (Auto) 0.0 TH/MM3 CBC Comment AUTO DIFF Differential Comment AUTO DIFF CONFIRMED Laboratory Tests Test 06/15/17 04:37 06/16/17 04:48 Blood Urea Nitrogen 71 MG/DL 49 MG/DL Creatinine 13.37 MG/DL 10.03 MG/DL Random Glucose 84 MG/DL 83 MG/DL Calcium Level 8.6 MG/DL 7.9 MG/DL Sodium Level 135 MEQ/L 134 MEQ/L Potassium Level 4.3 MEQ/L 3.5 MEQ/L Chloride Level 97 MEQ/L 97 MEQ/L Carbon Dioxide Level 25.5 MEQ/L 25.9 MEQ/L Anion Gap 13 MEQ/L 11 MEQ/L Estimat Glomerular Filtration Rate 5 ML/MIN 7 ML/MIN Phosphorus Level 5.0 MG/DL Magnesium Level 2.2 MG/DL Microbiology Date/Time Source Procedure Growth Status 06/15/17 13:30 Blood Peripheral Aerobic Blood Culture Pending Received 06/15/17 13:30 Blood Peripheral Anaerobic Blood Culture Pending Received 06/15/17 13:30 Blood Other Aerobic Blood Culture Pending Received 06/15/17 13:30 Blood Other Anaerobic Blood Culture Pending Received 06/14/17 03:51 Blood Peripheral Aerobic Blood Culture - Preliminary Staph Sp Coagulase Negative Resulted 06/14/17 03:51 Blood Peripheral Anaerobic Blood Culture - Preliminary NO GROWTH IN 1 DAY Resulted Imaging Last Impressions Chest X-Ray 06/10/17 1436 Signed Impressions: Service Date/Time: Saturday, June 10, 2017 15:36 - CONCLUSION: 1. Stable chronic interstitial changes. 2. No acute infiltrate. Narendra Barreto Jr., MD Physical Exam GENERAL: awake and alert, not in respiratory distress. SKIN: Warm and dry. No generalized rash, no ecchymoses and no evidence of embolic lesions. HEAD: Atraumatic. Normocephalic. No temporal wasting, or tenderness. EYES: [place]equesta conjunctiva. No petechia or hemorrhage. Pupils equal, round and reactive to light. Extraocular movements full and intact. No scleral icterus. No injection or drainage. EARS, NOSE AND THROAT: Nose without bleeding or purulent nasal discharge. No sinus tenderness. Mucous membranes pink and moist. No oral lesions noted. No exudate. No oral thrush. NECK: Trachea midline. Supple and not tender, no meningeal signs CARDIOVASCULAR: Regular rate and rhythm. No murmurs, rubs or gallops heard RESPIRATORY: Clear to auscultation. Breath sounds equal bilaterally. No rales , wheezing or rhonchi ABDOMEN: Soft, nondistended, with diffuse abdominal tenderness. Bowel sounds present and normoactive. No guarding. No rebound. No organomegaly. EXTREMITIES: No clubbing, cyanosis, or edema. Has jacqueline BKA, well healed stump. L thigh permacath site with no evidence of infection NEUROLOGICAL: Grossly non-focal PSYCHIATRIC: Normal affect, calm and cooperative. LINE: No evidence of infection - L groin permacath Assessment & Plan Remarks IMPRESSION Sepsis with shock on presentation, BP better - due line related sepsis - not a lot of options for HD due to venous occlusions - has had L groin permacath Coag Neg Staph and fungemia line related - had line exchange 06/14 ESRD on HD MWF - has AVF LUE, S/P 6 weeks IV Abx for wound infection post-op Central venous occlusion, problem with venous access PVD, S/P Jacqueline BKA SLE Abdominal pain, N/V, etiology? better RECOMMENDATION Follow C/S Continue Vanco - will give with each HD - to cover (+) BC with Staph epi Add Micafungin and Diflucan until yeast ID available Hopefully will clear, line exchange done 06/14 No good options for HD access Repeat BC Monitor progress Explained plan to the patient D/W Louann Mejia MD Jun 16, 2017 10:47
[2017-06-16] MEDS: MICAFUNGIN INJ 100 MG in SODIUM CHLORIDE 0.9% INJ 100 ML IV SCH (11:00)
[2017-06-16] MEDS: FLUCONAZOLE 400 MG PREMIX BAG 200 ML IV SCH (11:01)
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
[2017-06-16] MEDS: WARFARIN SOD 4 MG TAB PO SCH (16:29)
[2017-06-16] MEDS: SODIUM CHLORIDE 23.4% INJ 154 MEQ in DEXTROSE 10% INJ 1,000 ML IV SCH (16:45)
--- NOTE | 2017-06-16 17:24 | HHI.NPPN ---
Subjective History of Present Illness This patient is a 46-year-old male with a history of end-stage renal disease, SLE, hypertension, peripheral vascular disease as well as secondary hyperparathyroidism of renal disease. Unfortunately the patient has had multiple dialysis accesses including dialysis shunts and dialysis catheters in the past complicated by access failure as well as infection. Patient now has very limited options for dialysis access. Presently we are relying on a left femoral dialysis line for access. Fortunately vessel surgery was able to create a left arm AV dialysis fistula back in February. It has matured somewhat but not ideally and presently we are using one needle in the fistula while port at the dialysis line has been used for dialysis access. We have not yet tried to use 2 needles in the AV dialysis shunt. Patient presents now with a history of chills, fever postdialysis yesterday and was noted to be hypotensive on presentation with blood pressures in the 60s. Patient's blood pressure has since improved however. Blood cultures negative 24 hours at time of consultation. Patient did receive cefepime and vancomycin since admission. Infectious disease on board.. Interval History Pt voiced no complaints today. Did say he was quite anxious to go home. Family member present in room (Gladis Cole) Objective Data Data Vital Signs Date Time Temp Pulse Resp B/P (MAP) Pulse Ox O2 Delivery O2 Flow Rate FiO2 06/16/17 16:00 97.7 43 16 135/65 (88) 96 06/16/17 16:00 48 06/16/17 14:00 39 06/16/17 12:00 97.5 44 16 142/69 (93) 97 06/16/17 12:00 48 06/16/17 10:00 38 06/16/17 08:00 97.7 53 12 111/55 (73) 100 06/16/17 08:00 38 06/16/17 06:00 37 06/16/17 04:00 42 06/16/17 04:00 97.8 42 12 90/54 (66) 98 06/16/17 02:00 51 06/16/17 00:00 56 06/16/17 00:00 97.9 50 10 84/49 (61) 96 06/15/17 22:00 68 06/15/17 20:00 67 06/15/17 20:00 97.6 67 19 101/59 (73) 06/15/17 19:41 98 06/15/17 18:00 50 (Gladis Cole) -: 06/16/17 0448 06/16/17 0448 Imaging Last Impressions Catheter Placement X-Ray 06/14/17 0000 Signed Impressions: Service Date/Time: Wednesday, June 14, 2017 15:54 - CONCLUSION: Uncomplicated fluoroscopic-guided central venous permacath exchange as above. Jeff Batista MD Chest X-Ray 06/10/17 1436 Signed Impressions: Service Date/Time: Saturday, June 10, 2017 15:36 - CONCLUSION: 1. Stable chronic interstitial changes. 2. No acute infiltrate. Narendra Barreto Jr., MD Medication Review Current Medications Medications (Trade) Dose Ordered Sig/Nohelia Route Start Time Stop Time Status Last Admin Phenylephrine HCl 80 mg/Dextrose 500 ml @ 15 mls/hr TITRATE PRN IV 06/10/17 20:00 06/10/17 23:28 (Brethine Inj) 1 mg UNSCH PRN SQ 06/10/17 18:30 (NS Flush) 2 ml UNSCH PRN IV FLUSH 06/10/17 18:30 (NS Flush) 2 ml BID IV FLUSH 06/10/17 21:00 06/16/17 09:45 (Zofran Inj) 4 mg Q6H PRN IV 06/10/17 18:30 06/14/17 15:19 (Albuterol Neb) 2.5 mg Q2HR NEB PRN INH 06/10/17 18:30 Miscellaneous Information 1 Q361D XX 06/10/17 18:30 (Chlorhexidine 2% Cloth) Taper DAILY@04 TOP 06/11/17 04:00 06/07/18 03:59 06/16/17 04:00 (Chlorhexidine 2% Cloth) 3 pack UNSCH PRN TOP 06/10/17 18:30 (Angelika-Colace) 1 tab BID PO 06/10/17 21:00 06/16/17 09:45 (Milk Of Magnesia Liq) 30 ml Q12H PRN PO 06/10/17 18:30 (Senokot) 17.2 mg Q12H PRN PO 06/10/17 18:30 (Dulcolax Supp) 10 mg DAILY PRN RECTAL 06/10/17 18:30 (Lactulose Liq) 30 ml DAILY PRN PO 06/10/17 18:30 (Proamatine) 10 mg Q8H PO 06/10/17 20:00 06/16/17 04:26 (Protonix) 40 mg DAILY PO 06/10/17 19:30 06/15/17 09:43 Heparin Sodium/ Dextrose 250 ml @ 13.5 mls/hr TITRATE PRN IV 06/10/17 20:00 06/15/17 18:17 (D50w (Vial) Inj) 50 ml UNSCH PRN IV 06/11/17 10:00 (Glucagon Inj) 1 mg UNSCH PRN OTHER 06/11/17 10:00 (SoluCORTEF INJ) 50 mg Q6H IV PUSH 06/11/17 11:00 06/16/17 11:01 (NovoLIN R SUPPLEMENTAL SCALE) 1 Q4H SQ 06/11/17 15:00 Sodium Chloride 1,000 ml @ 0 mls/hr Q0M PRN OTHER 06/12/17 15:19 (Heparin Inj) 8,000 units UNSCH PRN IVF 06/12/17 15:30 Sodium Chloride 1,000 ml @ 200 mls/hr Q5H PRN IV 06/12/17 15:19 Sodium Chloride 1,000 ml @ 0 mls/hr Q0M PRN OTHER 06/12/17 15:19 (Mannitol Inj) 12.5 gm UNSCH PRN IV 06/12/17 15:30 (Albumin 25% Inj) 25 gm UNSCH PRN IV 06/12/17 15:30 06/13/17 13:30 (NS Flush) 5 ml UNSCH PRN IV FLUSH 06/12/17 15:30 (Heparin Inj) UNSCH PRN .XX 06/12/17 15:30 06/13/17 13:31 (Gentamicin (Dialysis) Inj) 20 mg UNSCH PRN IV 06/12/17 15:30 06/15/17 16:09 (Zofran Inj) 4 mg UNSCH PRN IV 06/12/17 15:30 06/15/17 16:09 (Tylenol) 650 mg UNSCH PRN PO 06/12/17 15:30 (Benadryl) 25 mg UNSCH PRN PO 06/12/17 15:30 (Nitrostat Sl) 0.4 mg UNSCH PRN SL 06/12/17 15:30 (Catapres) 0.1 mg UNSCH PRN PO 06/12/17 15:30 (Gelfoam 12 Mm/7 Mm Top) 1 foam UNSCH PRN TOP 06/12/17 15:30 Vancomycin HCl 1000 mg/Sodium Chloride 250 ml @ 250 mls/hr WITH DIALYSIS IV 06/13/17 13:45 06/15/17 16:10 Sodium Chloride 154 meq/Dextrose 1,038.5 ml @ 20 mls/hr Q24H IV 06/13/17 16:45 06/16/17 16:45 (NS Flush) UNSCH PRN IVF 06/14/17 18:00 (Heparin Inj) UNSCH PRN IV FLUSH 06/14/17 18:00 Micafungin Sodium 100 mg/Sodium Chloride 100 ml @ 100 mls/hr Q24H IV 06/16/17 10:00 06/16/17 11:00 Fluconazole/ Sodium Chloride 200 ml @ 100 mls/hr Q24H IV 06/16/17 11:00 06/16/17 11:01 Pharmacy Profile Note 0 ml @ 0 mls/hr UNSCH OTHER 06/16/17 10:15 (Coumadin) 4 mg DAILY@1600 PO 06/16/17 16:00 06/16/17 16:29 (Gladis Cole) Physical Exam General Appearance: Well Developed, Well Nourished, No Acute Distress, Comfortable (Gladis Cole) Eyes Eye Exam: Sclera White (Gladis Cole) Pulmonary Resp Exam: Clear Bilaterally, Breath Sounds Equal (Gladis Cole) Cardiology CV Exam: Regular, Normal Sinus Rhythm, Good Perfusion (Gladis Cole) Gastrointestinal/Abdomen GI Exam: Soft, Non-Tender (Gladis Cole) Integumentary Skin Exam: Clear, Warm, Normal Turgor (Gladis Cole) Extremeties Extremities Exam: No Edema (Gladis Cole) Neurologic Neuro Exam: Alert, Awake (Gladis Cole) Assessment/Plan Discussed Condition With: Patient Problem List: (1) ESRD (end stage renal disease) on dialysis ICD Codes: N18.6 - End stage renal disease; Z99.2 - Dependence on renal dialysis Status: Chronic Plan: Fistulogram has been rescheduled as an outpatient. PermCath however appears to be working well. BCx are positive for yeast. Continue antibiotics as per infectious disease. Pt continues to say that he will likely sign out AMA if not cleared for discharge in the next day. I did advise that he still has presence of bacteria and yeast in the blood that needs to be treated before his discharge. We have very limited vascular access and if he loses his groin catheter we may have no other means to dialyze. He seemed to show little insight into the severity of his situation, but said that he would stay if it were life threatening which I advised it was. Medication should be adjusted for the patient's end-stage renal disease when indicated. Avoid gadolinium. (2) Sepsis ICD Codes: A41.9 - Sepsis, unspecified organism Status: Acute (3) Complications, dialysis, catheter, mechanical ICD Codes: T82.49XA - Other complication of vascular dialysis catheter, initial encounter Status: Acute Plan: Await fistulogram results as outpatient and interim continue to use femoral catheter Has severe PVD complicating access. (4) Abdominal pain ICD Codes: R10.9 - Unspecified abdominal pain Status: Resolved Plan: New since last evening. Amylase/lipase ordered and appear normal. Will defer to CC (5) Lupus (systemic lupus erythematosus) ICD Codes: M32.9 - Systemic lupus erythematosus, unspecified (6) Deep vein thrombosis (DVT) ICD Codes: I82.409 - Acute embolism and thrombosis of unspecified deep veins of unspecified lower extremity Permanent Comment: The patient has been on anticoagulation therapy in the past however he is very poorly compliant in this regard . Last Edited By: Raul Merlos on Jun 11, 2017 13:34 (Gladis Cole) Plan The exam, history, and the medical decision-making described in the above note were completed with the assistance of the PA-C. I reviewed and agree with the findings presented. (Clarence Merlos MD) Gladis Cole Jun 16, 2017 17:24 Clarence Merlos MD Jul 13, 2017 16:45
[2017-06-16] MEDS: HEPARIN-D5W 25,000 U/250 ML 250 ML IV PRN (23:35)
[2017-06-17] VITALS (29 sets, daily range): BP systolic 84–122; BP diastolic 50–70; PULSE 47–75; RESP 6–26; TEMP 97.5–98; O2SAT 97–100
[2017-06-17] MEDS: INSULIN NovoLIN REGULAR SUPPLEMENTAL SCALE SQ SCH ×6 (03:00→23:00)
[2017-06-17] MEDS: CHLORHEXIDINE GLUCONATE 2 % 1 PACK (2 CLOTHS) TOP SCH (04:00)
[2017-06-17] MEDS: MIDODRINE 5 MG TAB PO SCH ×4 (04:00→20:47)
[2017-06-17] MEDS: HYDROCORTISONE SOD SUCCINATE 100 MG VIAL IV PUSH SCH ×5 (05:00→23:00)
[2017-06-17] MEDS: DOCUSATE SODIUM 50 MG/SENNA 8.6 MG TAB PO SCH ×2 (08:29→20:47)
[2017-06-17] MEDS: PANTOPRAZOLE SOD 40 MG DELAYED RELEASE TAB PO SCH (08:30)
[2017-06-17] MEDS: SODIUM CHLORIDE 0.9% FLUSH 10 ML FLUSH IV FLUSH SCH ×2 (08:30→20:47)
[2017-06-17] MEDS: FLUCONAZOLE 400 MG PREMIX BAG 200 ML IV SCH (11:00)
[2017-06-17] MEDS: MICAFUNGIN INJ 100 MG in SODIUM CHLORIDE 0.9% INJ 100 ML IV SCH (11:34)
[2017-06-17 11:37] LABS: HEMATOCRIT 44.7 % (39.0-51.0); MEAN CELL VOLUME 98.3 FL (80.0-100.0); MEAN CORPUSCULAR HGB CONC 32.5 % (32.0-36.0); PLATELET COUNT 97 TH/MM3 (150-450); RED BLOOD COUNT 4.55 MIL/MM3 (4.50-5.90); RED CELL DISTRIBUTION WIDTH 19.3 % (11.6-17.2); WHITE BLOOD COUNT 5.8 TH/MM3 (4.0-11.0)
[2017-06-17 11:40] LABS: INTERNATIONAL NORMALIZED RATIO 1.1 RATIO; PROTHROMBIN TIME - PATIENT 12.2 SEC (9.8-11.6)
[2017-06-17 11:44] LABS: REVIEW FLAG FINAL
[2017-06-17] MEDS ORDERED: DEXTROSE 50% IN WATER 50 ML SYRINGE ONE (11:49)
[2017-06-17 12:08] LABS: BICARBONATE 26.7 MEQ/L (21.0-32.0); MAGNESIUM 2.4 MG/DL (1.5-2.5); POTASSIUM 3.4 MEQ/L (3.5-5.1)
--- NOTE | 2017-06-17 12:14 | HHI.IDPN ---
Subjective Subjective Remarks Patient is a 46-year-old male, with known ESRD, on hemodialysis Tuesday and Tuesday, presented to the hospital complaining of low blood pressure, and fever. Patient states his blood pressure is generally on the low side, but usually runs around 80-90 systolic. He had his usual hemodialysis on the day of admission, and his vitals were stable at that time. When he went home however, he felt like he had a fever, and he's check his blood pressure and it was in the 60s. He denies any respiratory complaint. He denies any shortness of breath. No abdominal pain, nausea vomiting or diarrhea. He has no significant urine output. He has not been around anyone sick. In the emergency room he had a blood pressure in the 60s, and he was febrile up to 103. His WBC is normal. Sedimentation rate 1. Lactic acid 4.2, and it's down to 1.1 today. Her temperatures are better. He is on pressors currently. He offers no specific complaint at the time my exam. Patient has known central venous occlusion, and venous access for his hemodialysis has been a problem. He currently has a left groin permacath, and it was last exchange last May 16. He has a right upper extremity AV fistula that was placed in February, and in March, he was admitted and treated for a wound infection in his AV fistula incision that grew out enterococcus. His blood cultures were negative at that time. He was treated aggressively with IV antibiotic and he completed treatment back in April. The wound has completely healed. His AV fistula has recently been access the last 2 times he had hemodialysis. Only one of the limb was access, and the groin permacath was also used. Notes reviewed Having problems with recurrent hypoglycemia For HD One BC from 06/12 with yeast Temps ok Has new permacath - exchanged 06/14 Fistulogram to be done as outpatient Has new (+) BC with Staph epi from 06/14 No abdominal pain No N/V today BP good Antibiotics Vancomycin Lines L groin permacath Past Medical History ESRD on hemodialysis SLE E CAD Hypertension Severe PVD History of DVT Anemia Hyperparathyroidism of renal origin Previous dialysis catheter line infection Known central venous occlusion Past Surgical History Bilateral BKA 2 fingers amputated Previous dialysis access in his left upper extremity Recent AV fistula creation in the right upper extremity Previous revascularization procedures for PVD Allergies: Coded Allergies: iodine (Unverified Allergy, Severe, blisters, 06/10/17) morphine (Unverified Allergy, Severe, Itching, 06/10/17) potassium iodide (Unverified Allergy, Severe, blisters, 06/10/17) povidone-iodine (Unverified Allergy, Severe, blisters, 06/10/17) sodium iodide (Unverified Allergy, Severe, blisters, 06/10/17) sodium iodide (Unverified Allergy, Severe, blisters, 06/10/17) Objective . Vital Signs Date Time Temp Pulse Resp B/P (MAP) Pulse Ox O2 Delivery O2 Flow Rate FiO2 06/17/17 09:00 51 8 120/61 (80) 06/17/17 08:06 62 12 115/63 (80) 100 06/17/17 08:00 62 13 98 06/17/17 08:00 97.5 06/17/17 06:00 47 06/17/17 04:00 98.0 52 13 105/65 (78) 100 06/17/17 04:00 52 06/17/17 02:00 57 06/17/17 00:00 97.8 53 26 89/53 (65) 97 06/17/17 00:00 53 06/16/17 22:00 54 06/16/17 20:00 59 06/16/17 20:00 97.7 59 16 99/59 (72) 100 06/16/17 18:00 48 06/16/17 16:00 97.7 43 16 135/65 (88) 96 06/16/17 16:00 48 06/16/17 14:00 39 . Laboratory Tests Test 06/16/17 04:48 06/17/17 10:51 White Blood Count 9.0 TH/MM3 5.8 TH/MM3 Red Blood Count 4.54 MIL/MM3 4.55 MIL/MM3 Hemoglobin 14.7 GM/DL 14.5 GM/DL Hematocrit 44.8 % 44.7 % Mean Corpuscular Volume 98.7 FL 98.3 FL Mean Corpuscular Hemoglobin 32.4 PG 32.0 PG Mean Corpuscular Hemoglobin Concent 32.8 % 32.5 % Red Cell Distribution Width 19.3 % 19.3 % Platelet Count 72 TH/MM3 97 TH/MM3 Mean Platelet Volume 9.2 FL 9.6 FL Laboratory Tests Test 06/16/17 04:48 06/17/17 10:51 Blood Urea Nitrogen 49 MG/DL Creatinine 10.03 MG/DL Random Glucose 83 MG/DL Calcium Level 7.9 MG/DL Phosphorus Level 5.0 MG/DL Magnesium Level 2.2 MG/DL Sodium Level 134 MEQ/L Potassium Level 3.5 MEQ/L Chloride Level 97 MEQ/L Carbon Dioxide Level 25.9 MEQ/L Anion Gap 11 MEQ/L Estimat Glomerular Filtration Rate 7 ML/MIN Microbiology Date/Time Source Procedure Growth Status 06/15/17 13:30 Blood Peripheral Aerobic Blood Culture - Preliminary NO GROWTH IN 2 DAYS Resulted 06/15/17 13:30 Blood Peripheral Anaerobic Blood Culture - Preliminary NO GROWTH IN 2 DAYS Resulted 06/15/17 13:30 Blood Other Aerobic Blood Culture - Preliminary NO GROWTH IN 2 DAYS Resulted 06/15/17 13:30 Blood Other Anaerobic Blood Culture - Preliminary NO GROWTH IN 2 DAYS Resulted Imaging Last Impressions Chest X-Ray 06/10/17 1436 Signed Impressions: Service Date/Time: Saturday, June 10, 2017 15:36 - CONCLUSION: 1. Stable chronic interstitial changes. 2. No acute infiltrate. Narendra Barreto Jr., MD Physical Exam GENERAL: awake and alert, not in respiratory distress. SKIN: Warm and dry. No generalized rash, no ecchymoses and no evidence of embolic lesions. HEAD: Atraumatic. Normocephalic. No temporal wasting, or tenderness. EYES: [place] conjunctiva. No petechia or hemorrhage. Pupils equal, round and reactive to light. Extraocular movements full and intact. No scleral icterus. No injection or drainage. EARS, NOSE AND THROAT: Nose without bleeding or purulent nasal discharge. No sinus tenderness. Mucous membranes pink and moist. No oral lesions noted. No exudate. No oral thrush. NECK: Trachea midline. Supple and not tender, no meningeal signs CARDIOVASCULAR: Regular rate and rhythm. No murmurs, rubs or gallops heard RESPIRATORY: Clear to auscultation. Breath sounds equal bilaterally. No rales , wheezing or rhonchi ABDOMEN: Soft, nondistended, with diffuse abdominal tenderness. Bowel sounds present and normoactive. No guarding. No rebound. No organomegaly. EXTREMITIES: No clubbing, cyanosis, or edema. Has carlos BKA, well healed stump. L thigh permacath site with no evidence of infection NEUROLOGICAL: Grossly non-focal PSYCHIATRIC: Normal affect, calm and cooperative. LINE: No evidence of infection - L groin permacath Assessment & Plan Remarks IMPRESSION Sepsis with shock on presentation, BP better - due line related sepsis - not a lot of options for HD due to venous occlusions - has had L groin permacath Coag Neg Staph and fungemia line related - had line exchange 06/14 ESRD on HD MWF - has AVF LUE, S/P 6 weeks IV Abx for wound infection post-op Central venous occlusion, problem with venous access PVD, S/P Carlos BKA SLE Abdominal pain, N/V, etiology? better RECOMMENDATION Follow C/S Continue Vanco - will give with each HD - to cover (+) BC with Staph epi Continue Micafungin and Diflucan until yeast ID available Hopefully will clear, line exchange done 06/14 No good options for HD access Repeat BC Monitor progress Explained plan to the patient Louann Barney MD Jun 17, 2017 12:14
--- NOTE | 2017-06-17 15:07 | HHI.PR ---
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 He underwent hemodialysis today and he states afterwards he had a fever and felt lightheaded so he came to [facility] emergency department.. His temperature was 103 upon arrival. Heart rate is in the 80s to 90s. He states his blood pressure "typically runs low" in the 80s but blood pressure is 60/47 the emergency department. He states he has had a slight nonproductive cough for 2-3 days. He denies nausea, vomiting, abdominal pain, chest pain, hemoptysis, melena, bright red blood per rectum, headache, neck stiffness, tenderness or drainage at dialysis catheter site, remainder of ROS neg. He has recently been treated for enterococcus in a wound near his right upper extremity fistula. He was discharged 03/21/17 with wound care and was on vancomycin with vascular surgery followup. He states his wound has healed and he believes he is no longer receiving vancomycin at dialysis. He is a challenging historian. Dr. Altamirano has attempted L IJ CVL access unsuccessfully. Patient states he has multiple prior failed attempts at central vascular access and that his IJ and subclavians are "clotted off". He has h/o SVC thrombus in 2009 and he states h/o unsuccessful attempt at access in R femoral as well. He has a left femoral tunneled dialysis catheter exchange 09/13/16 by IR and 05/16/17. Blood cultures have been obtained in the emergency department. He has been given cefepime and vancomycin. His received 2 L normal saline in the ED. Started midodrine and started low dose phenylephrine via peripheral IV after discussion of risks and benefits with patient and his mother. In addition, he was hypoglycemic on arrival with glucose in 20s, given amp dextrose and glucose 54. Not diabetic or on insulin/ oral hypoglycemics. 06/11 Patient is lying in bed in NAD. Afebrile. On Neosyn 40 mics. s/p HD yesterday. 06/12 No events overnight. Neosyn down 10 mics. Afebrile. 06/13 Patient is lying in bed in NAD. Afebrile. Off Neosyn, remains on heparin drip. For HD today. 06/14 No events overnight. s/p HD yesterday with removal 1.5L. For PermCath exchange today by IR. Afebrile. 06/15 patient is status post permacath exchange and IR yesterday. Plans for fistulogram this afternoon with Dr. Plascencia 06/16 No acute events overnight. Blood culture revealed fungemia (06/12). Repeat blood cultures pending. Patient continues on D10@20cc/hr for hypoglycemia. Patient continues on heparin infusion, plans for outpatient fistulogram patient will be transitioned to Coumadin today. Hospitalist Notes: 06/17: Followed by ID specialist, he patient is improving blood pressure, Sepsis due to line related sepsis, has PVD with status post bilateral BKA, following blood cultures, recommended to continue Vancomycin, to cover positive blood culture with gram positive staph epidermidis, continue Micafungin and Diflucan until yeast ID available. discussed with nurse , patient continue with episodes of Hypoglycemia prefer not to eat too much, added Nephro to his diet, switch to regular food and increased D10 to 50 ml per hour. no nausea, vomit or diarrhea. Objective Vital Signs Date Time Temp Pulse Resp B/P (MAP) Pulse Ox O2 Delivery O2 Flow Rate FiO2 06/17/17 13:00 62 6 06/17/17 12:00 69 12 122/70 (87) 06/17/17 12:00 97.9 06/17/17 09:00 51 8 120/61 (80) 06/17/17 08:06 62 12 115/63 (80) 100 06/17/17 08:00 62 13 98 06/17/17 08:00 97.5 06/17/17 06:00 47 06/17/17 04:00 98.0 52 13 105/65 (78) 100 06/17/17 04:00 52 06/17/17 02:00 57 06/17/17 00:00 97.8 53 26 89/53 (65) 97 06/17/17 00:00 53 06/16/17 22:00 54 06/16/17 20:00 59 06/16/17 20:00 97.7 59 16 99/59 (72) 100 06/16/17 18:00 48 06/16/17 16:00 97.7 43 16 135/65 (88) 96 06/16/17 16:00 48 I/O 06/16/17 06/16/17 06/16/17 06/17/17 06/17/17 06/17/17 07:00 15:00 23:00 07:00 15:00 23:00 Intake Total 796 ml 500 ml 250 ml Output Total 0 ml 0 ml Balance 796 ml 500 ml 250 ml Intake Oral 100 ml IV Total 696 ml 500 ml 250 ml Output Urine Total 0 ml 0 ml # Bowel Movements 0 0 Result Diagram: 06/17/17 1051 06/17/17 1051 Imaging Last Impressions Catheter Placement X-Ray 06/14/17 0000 Signed Impressions: Service Date/Time: Wednesday, June 14, 2017 15:54 - CONCLUSION: Uncomplicated fluoroscopic-guided central venous permacath exchange as above. Jeff Batista MD Chest X-Ray 06/10/17 1436 Signed Impressions: Service Date/Time: Saturday, June 10, 2017 15:36 - CONCLUSION: 1. Stable chronic interstitial changes. 2. No acute infiltrate. Narendra aBrreto Jr., MD Procedures none Other Results Laboratory Tests Test 06/10/17 15:15 06/10/17 20:40 06/11/17 01:53 06/11/17 10:48 Total Creatine Kinase 67 U/L Troponin I LESS THAN 0.02 NG/ML Nasal Screen MRSA (PCR) MRSA NOT DETECTED Fibrinogen 330 mg/dL Lactic Acid Level 1.1 mmol/L Differential Total Cells Counted 100 Neutrophils % (Manual) 83 % Band Neutrophils % 11 % Lymphocytes % 1 % Monocytes % 4 % Basophils % 1 % Neutrophils # (Manual) 16.1 TH/MM3 Blood Urea Nitrogen 54 MG/DL Creatinine 12.45 MG/DL Random Glucose 159 MG/DL Total Protein 8.3 GM/DL Albumin 3.4 GM/DL Calcium Level 8.9 MG/DL Alkaline Phosphatase 69 U/L Aspartate Amino Transf (AST/SGOT) 22 U/L Alanine Aminotransferase (ALT/SGPT) 20 U/L Total Bilirubin 0.9 MG/DL Sodium Level 131 MEQ/L Potassium Level 3.7 MEQ/L Chloride Level 96 MEQ/L Carbon Dioxide Level 20.9 MEQ/L Test 06/12/17 09:18 06/14/17 03:51 06/15/17 04:37 06/16/17 04:48 Protein Corrected Calcium 7.2 MG/DL Blood Urea Nitrogen 63 MG/DL Creatinine 11.38 MG/DL Random Glucose 126 MG/DL Total Protein 6.1 GM/DL Calcium Level 6.7 MG/DL Sodium Level 135 MEQ/L Potassium Level 3.6 MEQ/L Chloride Level 104 MEQ/L Carbon Dioxide Level 17.9 MEQ/L Platelet Estimate LOW Platelet Morphology Comment NORMAL Amylase Level 136 U/L Lipase 228 U/L Neutrophils (%) (Auto) 91.1 % Lymphocytes (%) (Auto) 2.8 % Monocytes (%) (Auto) 5.9 % Eosinophils (%) (Auto) 0.0 % Basophils (%) (Auto) 0.2 % Neutrophils # (Auto) 10.2 TH/MM3 Lymphocytes # (Auto) 0.3 TH/MM3 Monocytes # (Auto) 0.7 TH/MM3 Eosinophils # (Auto) 0.0 TH/MM3 Basophils # (Auto) 0.0 TH/MM3 CBC Comment AUTO DIFF Differential Comment AUTO DIFF CONFIRMED Activated Partial Thromboplast Time 40.4 SEC Random Vancomycin Level 19.1 COMMENT Test 06/17/17 10:51 White Blood Count 5.8 TH/MM3 Red Blood Count 4.55 MIL/MM3 Hemoglobin 14.5 GM/DL Hematocrit 44.7 % Mean Corpuscular Volume 98.3 FL Mean Corpuscular Hemoglobin 32.0 PG Mean Corpuscular Hemoglobin Concent 32.5 % Red Cell Distribution Width 19.3 % Platelet Count 97 TH/MM3 Mean Platelet Volume 9.6 FL Prothrombin Time 12.2 SEC Prothromb Time International Ratio 1.1 RATIO Blood Urea Nitrogen 69 MG/DL Creatinine 12.00 MG/DL Random Glucose 85 MG/DL Calcium Level 8.3 MG/DL Phosphorus Level 6.0 MG/DL Magnesium Level 2.4 MG/DL Sodium Level 137 MEQ/L Potassium Level 3.4 MEQ/L Chloride Level 98 MEQ/L Carbon Dioxide Level 26.7 MEQ/L Anion Gap 12 MEQ/L Estimat Glomerular Filtration Rate 6 ML/MIN Objective Remarks GENERAL: Well-developed well-nourished male is 46 yo lying in bed in [facility] SKIN: Warm to touch, dry. HEAD: Atraumatic. Normocephalic. EYES: Pupils 2 mm and round and reactive bilaterally. No scleral icterus. No injection or drainage. ENT: No nasal bleeding or discharge. Mucous membranes pink. NECK: Trachea midline. No meningismus CARDIOVASCULAR: Bradycardic rate and rhythm, sinus rhythm on monitor. No murmurs rubs or gallops. RESPIRATORY: No accessory muscle use. Clear to auscultation. Breath sounds equal bilaterally. On room air GASTROINTESTINAL: Abdomen soft, non-tender, nondistended. Bowel sounds present MUSCULOSKELETAL: Extremities without clubbing, cyanosis, or edema. Status post bilateral BKA with incisions healed. Right upper extremity AV fistula with palpable pulse. New Left femoral tunnel catheter in place with no obvious drainage, erythema, tenderness. NEUROLOGICAL: Awake and alert. No obvious cranial nerve deficits. Motor grossly within normal limits. Normal speech. Moving all extremities to commands. Medications and IVs Current Medications Medications (Trade) Dose Ordered Sig/Nohelia Route Start Time Stop Time Status Last Admin Phenylephrine HCl 80 mg/Dextrose 500 ml @ 15 mls/hr TITRATE PRN IV 06/10/17 20:00 06/10/17 23:28 (Brethine Inj) 1 mg UNSCH PRN SQ 06/10/17 18:30 (NS Flush) 2 ml UNSCH PRN IV FLUSH 06/10/17 18:30 (NS Flush) 2 ml BID IV FLUSH 06/10/17 21:00 06/17/17 08:30 (Zofran Inj) 4 mg Q6H PRN IV 06/10/17 18:30 06/14/17 15:19 (Albuterol Neb) 2.5 mg Q2HR NEB PRN INH 06/10/17 18:30 Miscellaneous Information 1 Q361D XX 06/10/17 18:30 (Chlorhexidine 2% Cloth) Taper DAILY@04 TOP 06/11/17 04:00 06/07/18 03:59 06/17/17 04:00 (Chlorhexidine 2% Cloth) 3 pack UNSCH PRN TOP 06/10/17 18:30 (Angelika-Colace) 1 tab BID PO 06/10/17 21:00 06/17/17 08:29 (Milk Of Magnesia Liq) 30 ml Q12H PRN PO 06/10/17 18:30 (Senokot) 17.2 mg Q12H PRN PO 06/10/17 18:30 (Dulcolax Supp) 10 mg DAILY PRN RECTAL 06/10/17 18:30 (Lactulose Liq) 30 ml DAILY PRN PO 06/10/17 18:30 (Proamatine) 10 mg Q8H PO 06/10/17 20:00 06/16/17 04:26 (Protonix) 40 mg DAILY PO 06/10/17 19:30 06/15/17 09:43 Heparin Sodium/ Dextrose 250 ml @ 13.5 mls/hr TITRATE PRN IV 06/10/17 20:00 06/16/17 23:35 (D50w (Vial) Inj) 50 ml UNSCH PRN IV 06/11/17 10:00 (Glucagon Inj) 1 mg UNSCH PRN OTHER 06/11/17 10:00 (SoluCORTEF INJ) 50 mg Q6H IV PUSH 06/11/17 11:00 06/16/17 11:01 (NovoLIN R SUPPLEMENTAL SCALE) 1 Q4H SQ 06/11/17 15:00 Sodium Chloride 1,000 ml @ 0 mls/hr Q0M PRN OTHER 06/12/17 15:19 (Heparin Inj) 8,000 units UNSCH PRN IVF 06/12/17 15:30 Sodium Chloride 1,000 ml @ 200 mls/hr Q5H PRN IV 06/12/17 15:19 Sodium Chloride 1,000 ml @ 0 mls/hr Q0M PRN OTHER 06/12/17 15:19 (Mannitol Inj) 12.5 gm UNSCH PRN IV 06/12/17 15:30 (Albumin 25% Inj) 25 gm UNSCH PRN IV 06/12/17 15:30 06/13/17 13:30 (NS Flush) 5 ml UNSCH PRN IV FLUSH 06/12/17 15:30 (Heparin Inj) UNSCH PRN .XX 06/12/17 15:30 06/13/17 13:31 (Gentamicin (Dialysis) Inj) 20 mg UNSCH PRN IV 06/12/17 15:30 06/15/17 16:09 (Zofran Inj) 4 mg UNSCH PRN IV 06/12/17 15:30 06/15/17 16:09 (Tylenol) 650 mg UNSCH PRN PO 06/12/17 15:30 (Benadryl) 25 mg UNSCH PRN PO 06/12/17 15:30 (Nitrostat Sl) 0.4 mg UNSCH PRN SL 06/12/17 15:30 (Catapres) 0.1 mg UNSCH PRN PO 06/12/17 15:30 (Gelfoam 12 Mm/7 Mm Top) 1 foam UNSCH PRN TOP 06/12/17 15:30 Vancomycin HCl 1000 mg/Sodium Chloride 250 ml @ 250 mls/hr WITH DIALYSIS IV 06/13/17 13:45 06/15/17 16:10 Sodium Chloride 154 meq/Dextrose 1,038.5 ml @ 20 mls/hr Q24H IV 06/13/17 16:45 06/16/17 16:45 (NS Flush) UNSCH PRN IVF 06/14/17 18:00 (Heparin Inj) UNSCH PRN IV FLUSH 06/14/17 18:00 Micafungin Sodium 100 mg/Sodium Chloride 100 ml @ 100 mls/hr Q24H IV 06/16/17 10:00 06/17/17 11:34 Fluconazole/ Sodium Chloride 200 ml @ 100 mls/hr Q24H IV 06/16/17 11:00 06/16/17 11:01 Pharmacy Profile Note 0 ml @ 0 mls/hr UNSCH OTHER 06/16/17 10:15 (Coumadin) 4 mg DAILY@1600 PO 06/16/17 16:00 06/16/17 16:29 A/P Assessment and Plan 1. History of Asthma Chronic Basilar interstitial Opacities, CXR 06/10 : Chronic interstitial changes, no acute infiltrate to continue Oxygen and keep Oxygen saturation over 92% Continue Bronchodilator, Mucolytic and incentive spirometry 2. Status post Septic Shock/Staph Epi/coag negative staph bacteremia Status post IV fluids resuscitation, Midodrine, stress dose steroids, ECHO- EF 55-60%, no RWMA, trace TR, PAP 36mmHG Patient has h/o significant vasc access issues not amenable to bedside placement. Prior failed placement in ED. Patient also with prior h/o subclavian thrombus and coagulopathy Continue Vanco per ID, PermCath line likely source. For PermCath exchange today 06/10: BC Staph Epi, coag negative staph. 06/12: Yeast 06/15: (post catheter exchange) pending 3. ESRD on Hemodialysis Tuesday/Tuesday/Tuesday Nephrology specialist following. Fistulogram has been re scheduled as outpatient. 06/14 PermCath exchange by IR. 4. SLE VICKI negative in the past, DVT on chronic Warfarin but INR subtherapeutic , on Heparin drip 5. Medical Non compliance 6. Hypoglycemia on D10 increased to 50 ml per hour, regular diet and Nephro added. PROPH: Heparin drip will provide DVT prophylaxis. Protonix 40 mg by mouth daily for stress ulcer prophylaxis and history of GERD ACCESS: PIV L UE. 06/14 New L femoral tunneled dialysis catheter in place . Medication should be adjusted for the patient's end-stage renal disease when indicated. Avoid gadolinium. Discharge Planning Once cleared by Specialists. Dioni Elliott MD Jun 17, 2017 3:07 pm
[2017-06-17] MEDS: VANCOMYCIN INJ 1,000 MG in SODIUM CHLOR 0.9% 250 ML INJ 250 ML IV SCH (16:55)
[2017-06-17] MEDS: ALBUMIN HUMAN 25% 25 GM/100 ML BAGP IV PRN (18:00)
[2017-06-17] MEDS: SODIUM CHLOR 0.9% 1000 ML INJ 1,000 ML OTHER PRN (18:00)
[2017-06-17] MEDS: GENTAMICIN SULFATE (DIALYSIS USE ONLY) 20 MG/2 ML VIAL IV PRN (18:00)
[2017-06-17] MEDS: HEPARIN SODIUM - IV 10,000 UNITS/10 ML VIAL PRN (18:00)
[2017-06-17] MEDS: WARFARIN SOD 4 MG TAB PO SCH (18:39)
[2017-06-17] MEDS: SODIUM CHLORIDE 23.4% INJ 154 MEQ in DEXTROSE 10% INJ 1,000 ML IV SCH (18:40)
[2017-06-17] MEDS: DEXTROSE 50% IN WATER 50 ML SYRINGE IV PRN (19:38)
[2017-06-17] MEDS: HEPARIN-D5W 25,000 U/250 ML 250 ML IV PRN (23:14)
[2017-06-18] VITALS (18 sets, daily range): BP systolic 94–114; BP diastolic 58–72; PULSE 48–82; RESP 11–22; TEMP 97.5–98.3; O2SAT 96
[2017-06-18] MEDS: INSULIN NovoLIN REGULAR SUPPLEMENTAL SCALE SQ SCH ×6 (03:00→23:00)
[2017-06-18] MEDS: CHLORHEXIDINE GLUCONATE 2 % 1 PACK (2 CLOTHS) TOP SCH (04:00)
[2017-06-18] MEDS: MIDODRINE 5 MG TAB PO SCH ×3 (04:00→20:00)
[2017-06-18] MEDS: HYDROCORTISONE SOD SUCCINATE 100 MG VIAL IV PUSH SCH ×4 (05:00→21:00)
[2017-06-18] MEDS: DEXTROSE 50% IN WATER 50 ML SYRINGE IV PRN ×9 (06:37→23:52)
[2017-06-18] MEDS: SODIUM CHLORIDE 0.9% FLUSH 10 ML FLUSH IV FLUSH SCH ×2 (09:00→20:03)
[2017-06-18] MEDS: PANTOPRAZOLE SOD 40 MG DELAYED RELEASE TAB PO SCH (09:00)
[2017-06-18] MEDS: DOCUSATE SODIUM 50 MG/SENNA 8.6 MG TAB PO SCH ×2 (09:39→20:07)
[2017-06-18] MEDS: MICAFUNGIN INJ 100 MG in SODIUM CHLORIDE 0.9% INJ 100 ML IV SCH (09:39)
--- NOTE | 2017-06-18 11:14 | HHI.NPPN ---
Subjective History of Present Illness This patient is a 46-year-old male with a history of end-stage renal disease, SLE, hypertension, peripheral vascular disease as well as secondary hyperparathyroidism of renal disease. Unfortunately the patient has had multiple dialysis accesses including dialysis shunts and dialysis catheters in the past complicated by access failure as well as infection. Patient now has very limited options for dialysis access. Presently we are relying on a left femoral dialysis line for access. Fortunately vessel surgery was able to create a left arm AV dialysis fistula back in February. It has matured somewhat but not ideally and presently we are using one needle in the fistula while port at the dialysis line has been used for dialysis access. We have not yet tried to use 2 needles in the AV dialysis shunt. Patient presents now with a history of chills, fever postdialysis yesterday and was noted to be hypotensive on presentation with blood pressures in the 60s. Patient's blood pressure has since improved however. Blood cultures negative 24 hours at time of consultation. Patient did receive cefepime and vancomycin since admission. Infectious disease on board.. Interval History Patient indicating that he feels "heavy". Only 1 L ultrafiltration yesterday on dialysis. No shortness of breath.. Objective Data Data Vital Signs Date Time Temp Pulse Resp B/P (MAP) Pulse Ox O2 Delivery O2 Flow Rate FiO2 06/18/17 06:00 50 06/18/17 04:00 97.8 53 12 114/58 (76) 96 06/18/17 04:00 56 06/18/17 02:00 67 06/18/17 00:00 82 06/18/17 00:00 97.7 82 14 94/62 (73) 96 06/17/17 22:00 73 06/17/17 20:15 66 06/17/17 20:00 75 06/17/17 20:00 75 06/17/17 20:00 106/59 (75) 06/17/17 19:45 55 13 111/58 (75) 06/17/17 19:45 55 06/17/17 19:30 57 13 102/58 (73) 06/17/17 19:30 57 06/17/17 19:15 51 06/17/17 19:15 51 16 101/55 (70) 06/17/17 19:01 64 26 116/57 (76) 06/17/17 19:01 64 06/17/17 19:00 55 19 06/17/17 19:00 55 06/17/17 18:45 53 06/17/17 18:45 53 15 100/56 (71) 06/17/17 18:30 52 11 104/62 (76) 06/17/17 18:30 52 06/17/17 18:15 63 24 99/59 (72) 06/17/17 18:15 63 06/17/17 18:00 57 06/17/17 18:00 57 24 95/53 (67) 06/17/17 17:45 59 17 92/50 (64) 06/17/17 17:30 66 17 91/51 (64) 06/17/17 17:15 59 14 90/50 (63) 06/17/17 17:00 69 15 84/52 (63) 06/17/17 16:45 69 20 85/50 (62) 06/17/17 16:30 72 24 92/54 (67) 06/17/17 16:15 75 19 89/55 (66) 06/17/17 16:00 62 11 86/53 (64) 06/17/17 16:00 97.8 06/17/17 13:00 62 6 06/17/17 12:00 69 12 122/70 (87) 06/17/17 12:00 97.9 -: 06/17/17 1051 06/17/17 1051 Physical Exam General Appearance: Well Developed, Well Nourished, No Acute Distress, Comfortable Eyes Eye Exam: Sclera White Pulmonary Resp Exam: Clear Bilaterally, Breath Sounds Equal Cardiology CV Exam: Regular, Normal Sinus Rhythm, Good Perfusion Gastrointestinal/Abdomen GI Exam: Soft, Non-Tender Integumentary Skin Exam: Clear, Warm, Normal Turgor Extremeties Extremities Exam: Trace Edema Neurologic Neuro Exam: Alert, Awake Psychiatric Psych Exam: Appropriate Responses Assessment/Plan Discussed Condition With: Patient Problem List: (1) ESRD (end stage renal disease) on dialysis ICD Codes: N18.6 - End stage renal disease; Z99.2 - Dependence on renal dialysis Status: Chronic Plan: Fistulogram has been rescheduled as an outpatient. PermCath however appears to be working well. BCx are positive Edita parapsilosis. Infectious disease following. Continue antibiotics as per infectious disease. Patient had questions regarding possible options for dialysis access in the future given limited options currently available. He was advised the best hope is that this fistula in his right upper extremity is able to be used. If the fistula does not lynn out will discuss with vascular surgery if it could be converted to a [place]-Carlos graft. Eventually the femoral catheter will become nonfunctional and if we cannot create an AV dialysis shunt one option might be a transhepatic dialysis catheter. I also discussed with the patient the option of peritoneal dialysis. However the patient has a history of compliance issues and if he does go on peritoneal dialysis he may have institutionalized as I do not believe he will be able to perform it himself competently. I do also believe the patient needs additional ultrafiltration. I discussed the situation with the dialysis nurse and the patient will be scheduled for dialysis tomorrow and the day after for additional fluid removal. If the patient develops respiratory symptoms however dialysis may have to be done emergently today. Currently however he appears to be stable. Medication should be adjusted for the patient's end-stage renal disease when indicated. Avoid gadolinium. (2) Sepsis ICD Codes: A41.9 - Sepsis, unspecified organism Status: Acute Plan: Patient still has intravenous steroids ordered. I have asked the nurse to discuss discontinuing same with critical care given the presence of infection particularly possible fungemia. (3) Complications, dialysis, catheter, mechanical ICD Codes: T82.49XA - Other complication of vascular dialysis catheter, initial encounter Status: Acute Plan: Await fistulogram results as outpatient and interim continue to use femoral catheter Has severe PVD complicating access. (4) Abdominal pain ICD Codes: R10.9 - Unspecified abdominal pain Status: Resolved Plan: New since last evening. Amylase/lipase ordered and appear normal. Will defer to CC (5) Lupus (systemic lupus erythematosus) ICD Codes: M32.9 - Systemic lupus erythematosus, unspecified (6) Deep vein thrombosis (DVT) ICD Codes: I82.409 - Acute embolism and thrombosis of unspecified deep veins of unspecified lower extremity Permanent Comment: The patient has been on anticoagulation therapy in the past however he is very poorly compliant in this regard . Last Edited By: Raul Merlos on Jun 11, 2017 13:34 Plan Total time in direct patient care 38 minutes. Clarence Merlos MD Jun 18, 2017 11:14
--- NOTE | 2017-06-18 11:22 | HHI.IDPN ---
Subjective Subjective Remarks Chart reviewed X cover for Dr Morales Patient is a 46-year-old male, with known ESRD, on hemodialysis Tuesday and Tuesday, presented to the hospital complaining of low blood pressure, and fever. He has poor access and has L femoral Permacath as hisonly access option for HD He presented with Staph epi high grade bactermia and C. parapsiolosa fungemia His HD cath was changed over guidewire - exchanged 06/14 He has a right upper extremity AV fistula that was placed in February, and in March, he was admitted and treated for a wound infection in his AV fistula incision that grew out enterococcus. NO fever Per RN non compliant , regfusing multiple medx, including abx states he feels OK One BC from 06/12 with yeast BC froom 06/15 are no growth @ 3 days Antibiotics Vancomycin micafungin fluconazole Lines L groin permacath Past Medical History ESRD on hemodialysis SLE E CAD Hypertension Severe PVD History of DVT Anemia Hyperparathyroidism of renal origin Previous dialysis catheter line infection Known central venous occlusion Past Surgical History Bilateral BKA 2 fingers amputated Previous dialysis access in his left upper extremity Recent AV fistula creation in the right upper extremity Previous revascularization procedures for PVD Allergies: Coded Allergies: iodine (Unverified Allergy, Severe, blisters, 06/10/17) morphine (Unverified Allergy, Severe, Itching, 06/10/17) potassium iodide (Unverified Allergy, Severe, blisters, 06/10/17) povidone-iodine (Unverified Allergy, Severe, blisters, 06/10/17) sodium iodide (Unverified Allergy, Severe, blisters, 06/10/17) sodium iodide (Unverified Allergy, Severe, blisters, 06/10/17) Objective . Vital Signs Date Time Temp Pulse Resp B/P (MAP) Pulse Ox O2 Delivery O2 Flow Rate FiO2 06/18/17 06:00 50 06/18/17 04:00 97.8 53 12 114/58 (76) 96 06/18/17 04:00 56 06/18/17 02:00 67 06/18/17 00:00 82 06/18/17 00:00 97.7 82 14 94/62 (73) 96 06/17/17 22:00 73 06/17/17 20:15 66 06/17/17 20:00 75 06/17/17 20:00 75 06/17/17 20:00 106/59 (75) 06/17/17 19:45 55 13 111/58 (75) 06/17/17 19:45 55 06/17/17 19:30 57 13 102/58 (73) 06/17/17 19:30 57 06/17/17 19:15 51 06/17/17 19:15 51 16 101/55 (70) 06/17/17 19:01 64 26 116/57 (76) 06/17/17 19:01 64 06/17/17 19:00 55 19 06/17/17 19:00 55 06/17/17 18:45 53 06/17/17 18:45 53 15 100/56 (71) 06/17/17 18:30 52 11 104/62 (76) 06/17/17 18:30 52 06/17/17 18:15 63 24 99/59 (72) 06/17/17 18:15 63 06/17/17 18:00 57 06/17/17 18:00 57 24 95/53 (67) 06/17/17 17:45 59 17 92/50 (64) 06/17/17 17:30 66 17 91/51 (64) 06/17/17 17:15 59 14 90/50 (63) 06/17/17 17:00 69 15 84/52 (63) 06/17/17 16:45 69 20 85/50 (62) 06/17/17 16:30 72 24 92/54 (67) 06/17/17 16:15 75 19 89/55 (66) 06/17/17 16:00 62 11 86/53 (64) 06/17/17 16:00 97.8 06/17/17 13:00 62 6 06/17/17 12:00 69 12 122/70 (87) 06/17/17 12:00 97.9 . Laboratory Tests Test 06/17/17 10:51 White Blood Count 5.8 TH/MM3 Red Blood Count 4.55 MIL/MM3 Hemoglobin 14.5 GM/DL Hematocrit 44.7 % Mean Corpuscular Volume 98.3 FL Mean Corpuscular Hemoglobin 32.0 PG Mean Corpuscular Hemoglobin Concent 32.5 % Red Cell Distribution Width 19.3 % Platelet Count 97 TH/MM3 Mean Platelet Volume 9.6 FL Laboratory Tests Test 06/17/17 10:51 Blood Urea Nitrogen 69 MG/DL Creatinine 12.00 MG/DL Random Glucose 85 MG/DL Calcium Level 8.3 MG/DL Phosphorus Level 6.0 MG/DL Magnesium Level 2.4 MG/DL Sodium Level 137 MEQ/L Potassium Level 3.4 MEQ/L Chloride Level 98 MEQ/L Carbon Dioxide Level 26.7 MEQ/L Anion Gap 12 MEQ/L Estimat Glomerular Filtration Rate 6 ML/MIN Microbiology Date/Time Source Procedure Growth Status 06/15/17 13:30 Blood Peripheral Aerobic Blood Culture - Preliminary NO GROWTH IN 3 DAYS Resulted 06/15/17 13:30 Blood Peripheral Anaerobic Blood Culture - Preliminary NO GROWTH IN 3 DAYS Resulted 06/15/17 13:30 Blood Other Aerobic Blood Culture - Preliminary NO GROWTH IN 3 DAYS Resulted 06/15/17 13:30 Blood Other Anaerobic Blood Culture - Preliminary NO GROWTH IN 3 DAYS Resulted Imaging Last Impressions Catheter Placement X-Ray 06/14/17 0000 Signed Impressions: Service Date/Time: Wednesday, June 14, 2017 15:54 - CONCLUSION: Uncomplicated fluoroscopic-guided central venous permacath exchange as above. Jeff Batista MD Chest X-Ray 06/10/17 1436 Signed Impressions: Service Date/Time: Saturday, June 10, 2017 15:36 - CONCLUSION: 1. Stable chronic interstitial changes. 2. No acute infiltrate. Narendra Barreto Jr., MD Physical Exam GENERAL: awake and alert, not in respiratory distress. SKIN: Warm and dry. No generalized rash, no ecchymoses and no evidence of embolic lesions. HEAD: Atraumatic. Normocephalic. No temporal wasting, or tenderness. EYES: [place] conjunctiva. No petechia or hemorrhage. Pupils equal, round and reactive to light. Extraocular movements full and intact. No scleral icterus. No injection or drainage. EARS, NOSE AND THROAT: Nose without bleeding or purulent nasal discharge. No sinus tenderness. Mucous membranes pink and moist. No oral lesions noted. No exudate. No oral thrush. CARDIOVASCULAR: Regular rate and rhythm. No murmurs, rubs or gallops heard RESPIRATORY: Clear to auscultation. Breath sounds equal bilaterally. No rales , wheezing or rhonchi ABDOMEN: Soft, nondistended, with diffuse abdominal tenderness. Bowel sounds present and normoactive. No guarding. No rebound. No organomegaly. EXTREMITIES: No clubbing, cyanosis, or edema. Has jacqueline BKA, well healed stump. L thigh permacath site with no evidence of infection NEUROLOGICAL: awake and alert Grossly non-focal PSYCHIATRIC: Normal affect, calm and cooperative. 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 better RECOMMENDATION Follow C/S Continue Vanco - will give with each HD - to cover (+) BC with Staph epi Dc Micafungin cont Diflucan fu repeat BC Monitor progress dw Manuela Dolan MD Jun 18, 2017 11:22
[2017-06-18] MEDS: FLUCONAZOLE 400 MG PREMIX BAG 200 ML IV SCH (12:41)
--- NOTE | 2017-06-18 13:44 | HHI.PR ---
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 He underwent hemodialysis today and he states afterwards he had a fever and felt lightheaded so he came to [facility] emergency department.. His temperature was 103 upon arrival. Heart rate is in the 80s to 90s. He states his blood pressure "typically runs low" in the 80s but blood pressure is 60/47 the emergency department. He states he has had a slight nonproductive cough for 2-3 days. He denies nausea, vomiting, abdominal pain, chest pain, hemoptysis, melena, bright red blood per rectum, headache, neck stiffness, tenderness or drainage at dialysis catheter site, remainder of ROS neg. He has recently been treated for enterococcus in a wound near his right upper extremity fistula. He was discharged 03/21/17 with wound care and was on vancomycin with vascular surgery followup. He states his wound has healed and he believes he is no longer receiving vancomycin at dialysis. He is a challenging historian. Dr. Altamirano has attempted L IJ CVL access unsuccessfully. Patient states he has multiple prior failed attempts at central vascular access and that his IJ and subclavians are "clotted off". He has h/o SVC thrombus in 2009 and he states h/o unsuccessful attempt at access in R femoral as well. He has a left femoral tunneled dialysis catheter exchange 09/13/16 by IR and 05/16/17. Blood cultures have been obtained in the emergency department. He has been given cefepime and vancomycin. His received 2 L normal saline in the ED. Started midodrine and started low dose phenylephrine via peripheral IV after discussion of risks and benefits with patient and his mother. In addition, he was hypoglycemic on arrival with glucose in 20s, given amp dextrose and glucose 54. Not diabetic or on insulin/ oral hypoglycemics. 06/11 Patient is lying in bed in NAD. Afebrile. On Neosyn 40 mics. s/p HD yesterday. 06/12 No events overnight. Neosyn down 10 mics. Afebrile. 06/13 Patient is lying in bed in NAD. Afebrile. Off Neosyn, remains on heparin drip. For HD today. 06/14 No events overnight. s/p HD yesterday with removal 1.5L. For PermCath exchange today by IR. Afebrile. 06/15 patient is status post permacath exchange and IR yesterday. Plans for fistulogram this afternoon with Dr. Plascencia 06/16 No acute events overnight. Blood culture revealed fungemia (06/12). Repeat blood cultures pending. Patient continues on D10@20cc/hr for hypoglycemia. Patient continues on heparin infusion, plans for outpatient fistulogram patient will be transitioned to Coumadin today. Hospitalist Notes: 06/17: Followed by ID specialist, he patient is improving blood pressure, Sepsis due to line related sepsis, has PVD with status post bilateral BKA, following blood cultures, recommended to continue Vancomycin, to cover positive blood culture with gram positive staph epidermidis, continue Micafungin and Diflucan until yeast ID available. discussed with nurse , patient continue with episodes of Hypoglycemia prefer not to eat too much, added Nephro to his diet, switch to regular food and increased D10 to 50 ml per hour. 06/18: Stable in his bedroom totally asymptomatic but continue with Hypoglycemic episodes the patient refuse to eat too much and continue on D10, Regular diet and Nephro, today discontinued Micafungin, no nausea, vomit or diarrhea. Objective Vital Signs Date Time Temp Pulse Resp B/P (MAP) Pulse Ox O2 Delivery O2 Flow Rate FiO2 06/18/17 06:00 50 06/18/17 04:00 97.8 53 12 114/58 (76) 96 06/18/17 04:00 56 06/18/17 02:00 67 06/18/17 00:00 82 06/18/17 00:00 97.7 82 14 94/62 (73) 96 06/17/17 22:00 73 06/17/17 20:15 66 06/17/17 20:00 75 06/17/17 20:00 75 06/17/17 20:00 106/59 (75) 06/17/17 19:45 55 13 111/58 (75) 06/17/17 19:45 55 06/17/17 19:30 57 13 102/58 (73) 06/17/17 19:30 57 06/17/17 19:15 51 06/17/17 19:15 51 16 101/55 (70) 06/17/17 19:01 64 26 116/57 (76) 06/17/17 19:01 64 06/17/17 19:00 55 19 06/17/17 19:00 55 06/17/17 18:45 53 06/17/17 18:45 53 15 100/56 (71) 06/17/17 18:30 52 11 104/62 (76) 06/17/17 18:30 52 06/17/17 18:15 63 24 99/59 (72) 06/17/17 18:15 63 06/17/17 18:00 57 06/17/17 18:00 57 24 95/53 (67) 06/17/17 17:45 59 17 92/50 (64) 06/17/17 17:30 66 17 91/51 (64) 06/17/17 17:15 59 14 90/50 (63) 06/17/17 17:00 69 15 84/52 (63) 06/17/17 16:45 69 20 85/50 (62) 06/17/17 16:30 72 24 92/54 (67) 06/17/17 16:15 75 19 89/55 (66) 06/17/17 16:00 62 11 86/53 (64) 06/17/17 16:00 97.8 I/O 06/17/17 06/17/17 06/17/17 06/18/17 06/18/17 06/18/17 07:00 15:00 23:00 07:00 15:00 23:00 Intake Total 250 ml 250 ml 490 ml Output Total 0 ml 1000 ml 0 ml Balance 250 ml -750 ml 490 ml Intake Oral 240 ml IV Total 250 ml 250 ml 250 ml Output Urine Total 0 ml 0 ml Hemodialysis 1000 ml # Bowel Movements 0 0 Result Diagram: 06/17/17 1051 06/17/17 1051 Imaging Last Impressions Catheter Placement X-Ray 06/14/17 0000 Signed Impressions: Service Date/Time: Wednesday, June 14, 2017 15:54 - CONCLUSION: Uncomplicated fluoroscopic-guided central venous permacath exchange as above. Jeff Batista MD Chest X-Ray 06/10/17 1436 Signed Impressions: Service Date/Time: Saturday, June 10, 2017 15:36 - CONCLUSION: 1. Stable chronic interstitial changes. 2. No acute infiltrate. Narendra Barreto Jr., MD Procedures none Other Results Laboratory Tests Test 06/10/17 15:15 06/10/17 20:40 06/11/17 01:53 06/11/17 10:48 Total Creatine Kinase 67 U/L Troponin I LESS THAN 0.02 NG/ML Nasal Screen MRSA (PCR) MRSA NOT DETECTED Fibrinogen 330 mg/dL Lactic Acid Level 1.1 mmol/L Differential Total Cells Counted 100 Neutrophils % (Manual) 83 % Band Neutrophils % 11 % Lymphocytes % 1 % Monocytes % 4 % Basophils % 1 % Neutrophils # (Manual) 16.1 TH/MM3 Blood Urea Nitrogen 54 MG/DL Creatinine 12.45 MG/DL Random Glucose 159 MG/DL Total Protein 8.3 GM/DL Albumin 3.4 GM/DL Calcium Level 8.9 MG/DL Alkaline Phosphatase 69 U/L Aspartate Amino Transf (AST/SGOT) 22 U/L Alanine Aminotransferase (ALT/SGPT) 20 U/L Total Bilirubin 0.9 MG/DL Sodium Level 131 MEQ/L Potassium Level 3.7 MEQ/L Chloride Level 96 MEQ/L Carbon Dioxide Level 20.9 MEQ/L Test 06/12/17 09:18 06/14/17 03:51 06/15/17 04:37 06/16/17 04:48 Protein Corrected Calcium 7.2 MG/DL Blood Urea Nitrogen 63 MG/DL Creatinine 11.38 MG/DL Random Glucose 126 MG/DL Total Protein 6.1 GM/DL Calcium Level 6.7 MG/DL Sodium Level 135 MEQ/L Potassium Level 3.6 MEQ/L Chloride Level 104 MEQ/L Carbon Dioxide Level 17.9 MEQ/L Platelet Estimate LOW Platelet Morphology Comment NORMAL Amylase Level 136 U/L Lipase 228 U/L Neutrophils (%) (Auto) 91.1 % Lymphocytes (%) (Auto) 2.8 % Monocytes (%) (Auto) 5.9 % Eosinophils (%) (Auto) 0.0 % Basophils (%) (Auto) 0.2 % Neutrophils # (Auto) 10.2 TH/MM3 Lymphocytes # (Auto) 0.3 TH/MM3 Monocytes # (Auto) 0.7 TH/MM3 Eosinophils # (Auto) 0.0 TH/MM3 Basophils # (Auto) 0.0 TH/MM3 CBC Comment AUTO DIFF Differential Comment AUTO DIFF CONFIRMED Activated Partial Thromboplast Time 40.4 SEC Random Vancomycin Level 19.1 COMMENT Test 06/17/17 10:51 White Blood Count 5.8 TH/MM3 Red Blood Count 4.55 MIL/MM3 Hemoglobin 14.5 GM/DL Hematocrit 44.7 % Mean Corpuscular Volume 98.3 FL Mean Corpuscular Hemoglobin 32.0 PG Mean Corpuscular Hemoglobin Concent 32.5 % Red Cell Distribution Width 19.3 % Platelet Count 97 TH/MM3 Mean Platelet Volume 9.6 FL Prothrombin Time 12.2 SEC Prothromb Time International Ratio 1.1 RATIO Blood Urea Nitrogen 69 MG/DL Creatinine 12.00 MG/DL Random Glucose 85 MG/DL Calcium Level 8.3 MG/DL Phosphorus Level 6.0 MG/DL Magnesium Level 2.4 MG/DL Sodium Level 137 MEQ/L Potassium Level 3.4 MEQ/L Chloride Level 98 MEQ/L Carbon Dioxide Level 26.7 MEQ/L Anion Gap 12 MEQ/L Estimat Glomerular Filtration Rate 6 ML/MIN Objective Remarks GENERAL: Well-developed, Obese patient in no acute distress. HEAD: Atraumatic. Normocephalic. ENT: No nasal bleeding or discharge. NECK: No JVD, no Lymphadenopathy. CARDIOVASCULAR: Regular rate and rhythm. RESPIRATORY: Clear to auscultation bilateral, no wheezing or crackles. GASTROINTESTINAL: Abdomen soft, non-tender, nondistended. Bowel sounds present MUSCULOSKELETAL: Extremities without clubbing, cyanosis, or edema. Status post bilateral BKA with incisions healed. Right upper extremity AV fistula with palpable pulse. New Left femoral tunnel catheter in place with no obvious drainage, erythema, tenderness. NEUROLOGICAL: Awake and alert. No focal deficits. Medications and IVs Current Medications Medications (Trade) Dose Ordered Sig/Nohelia Route Start Time Stop Time Status Last Admin Phenylephrine HCl 80 mg/Dextrose 500 ml @ 15 mls/hr TITRATE PRN IV 06/10/17 20:00 06/10/17 23:28 (Brethine Inj) 1 mg UNSCH PRN SQ 06/10/17 18:30 (NS Flush) 2 ml UNSCH PRN IV FLUSH 06/10/17 18:30 (NS Flush) 2 ml BID IV FLUSH 06/10/17 21:00 06/18/17 09:00 (Zofran Inj) 4 mg Q6H PRN IV 06/10/17 18:30 06/14/17 15:19 (Albuterol Neb) 2.5 mg Q2HR NEB PRN INH 06/10/17 18:30 Miscellaneous Information 1 Q361D XX 06/10/17 18:30 (Chlorhexidine 2% Cloth) Taper DAILY@04 TOP 06/11/17 04:00 06/07/18 03:59 06/18/17 04:00 (Chlorhexidine 2% Cloth) 3 pack UNSCH PRN TOP 06/10/17 18:30 (Angelika-Colace) 1 tab BID PO 06/10/17 21:00 06/18/17 09:39 (Milk Of Magnesia Liq) 30 ml Q12H PRN PO 06/10/17 18:30 (Senokot) 17.2 mg Q12H PRN PO 06/10/17 18:30 (Dulcolax Supp) 10 mg DAILY PRN RECTAL 06/10/17 18:30 (Lactulose Liq) 30 ml DAILY PRN PO 06/10/17 18:30 (Proamatine) 10 mg Q8H PO 06/10/17 20:00 06/17/17 20:47 (Protonix) 40 mg DAILY PO 06/10/17 19:30 06/15/17 09:43 Heparin Sodium/ Dextrose 250 ml @ 13.5 mls/hr TITRATE PRN IV 06/10/17 20:00 06/17/17 23:14 (Glucagon Inj) 1 mg UNSCH PRN OTHER 06/11/17 10:00 (SoluCORTEF INJ) 50 mg Q6H IV PUSH 06/11/17 11:00 06/16/17 11:01 (NovoLIN R SUPPLEMENTAL SCALE) 1 Q4H SQ 06/11/17 15:00 Sodium Chloride 1,000 ml @ 0 mls/hr Q0M PRN OTHER 06/12/17 15:19 06/17/17 18:00 (Heparin Inj) 8,000 units UNSCH PRN IVF 06/12/17 15:30 Sodium Chloride 1,000 ml @ 200 mls/hr Q5H PRN IV 06/12/17 15:19 Sodium Chloride 1,000 ml @ 0 mls/hr Q0M PRN OTHER 06/12/17 15:19 (Mannitol Inj) 12.5 gm UNSCH PRN IV 06/12/17 15:30 (Albumin 25% Inj) 25 gm UNSCH PRN IV 06/12/17 15:30 06/17/17 18:00 (NS Flush) 5 ml UNSCH PRN IV FLUSH 06/12/17 15:30 (Heparin Inj) UNSCH PRN .XX 06/12/17 15:30 06/17/17 18:00 (Gentamicin (Dialysis) Inj) 20 mg UNSCH PRN IV 06/12/17 15:30 06/17/17 18:00 (Zofran Inj) 4 mg UNSCH PRN IV 06/12/17 15:30 06/15/17 16:09 (Tylenol) 650 mg UNSCH PRN PO 06/12/17 15:30 (Benadryl) 25 mg UNSCH PRN PO 06/12/17 15:30 (Nitrostat Sl) 0.4 mg UNSCH PRN SL 06/12/17 15:30 (Catapres) 0.1 mg UNSCH PRN PO 06/12/17 15:30 (Gelfoam 12 Mm/7 Mm Top) 1 foam UNSCH PRN TOP 06/12/17 15:30 Vancomycin HCl 1000 mg/Sodium Chloride 250 ml @ 250 mls/hr WITH DIALYSIS IV 06/13/17 13:45 06/17/17 16:55 Sodium Chloride 154 meq/Dextrose 1,038.5 ml @ 50 mls/hr [id number] IV 06/13/17 16:45 06/17/17 18:40 (NS Flush) UNSCH PRN IVF 06/14/17 18:00 (Heparin Inj) UNSCH PRN IV FLUSH 06/14/17 18:00 Fluconazole/ Sodium Chloride 200 ml @ 100 mls/hr Q24H IV 06/16/17 11:00 06/18/17 12:41 Pharmacy Profile Note 0 ml @ 0 mls/hr UNSCH OTHER 06/16/17 10:15 (Coumadin) 4 mg DAILY@1600 PO 06/16/17 16:00 06/17/17 18:39 (D50w (Syr) Inj) 50 ml UNSCH PRN IV 06/17/17 19:30 06/18/17 12:18 A/P Assessment and Plan 1. History of Asthma Chronic Basilar interstitial Opacities, CXR 06/10 : Chronic interstitial changes, no acute infiltrate to continue Oxygen and keep Oxygen saturation over 92% Continue Bronchodilator, Mucolytic and incentive spirometry 2. Status post Septic Shock/Staph Epi/coag negative staph bacteremia Status post IV fluids resuscitation, Midodrine, stress dose steroids given the patient refusing them at this time to titrate this medicine off at this time will decrease to 50 mg bid and continue Titration to discontinue ECHO- EF 55-60%, no RWMA, trace TR, PAP 36mmHG Patient has h/o significant vasc access issues not amenable to bedside placement. Prior failed placement in ED. Patient also with prior h/o subclavian thrombus and coagulopathy Continue Vanco per ID, PermCath line likely source. For PermCath exchange today 06/10: BC Staph Epi, coag negative staph. 06/12: BC Yeast 06/15: BC (post catheter exchange) pending as per ID to continue Vancomycin and Diflucan discontinue Micafungin. 3. ESRD on Hemodialysis Tuesday/Tuesday/Tuesday Nephrology specialist following. Fistulogram has been re scheduled as outpatient. 06/14 PermCath exchange by IR. 4. SLE VICKI negative in the past, DVT on chronic Warfarin but INR subtherapeutic , on Heparin drip 5. Medical Non compliance 6. Hypoglycemia on D10 increased to 50 ml per hour, regular diet and Nephro added. PROPH: Heparin drip will provide DVT prophylaxis. Protonix 40 mg by mouth daily for stress ulcer prophylaxis and history of GERD ACCESS: PIV L UE. 06/14 New L femoral tunneled dialysis catheter in place . Medication should be adjusted for the patient's end-stage renal disease when indicated. Avoid gadolinium. Discharge Planning Once cleared by Specialists. Dioni Elliott MD Jun 18, 2017 1:44 pm
[2017-06-18 14:43] LABS: INTERNATIONAL NORMALIZED RATIO 1.1 RATIO; PROTHROMBIN TIME - PATIENT 12.6 SEC (9.8-11.6)
[2017-06-18 15:34] LABS: APTT (PATIENT) 26.6 SEC (24.3-30.1)
[2017-06-18] MEDS: WARFARIN SOD 4 MG TAB PO SCH (17:01)
[2017-06-18] MEDS: SODIUM CHLORIDE 23.4% INJ 154 MEQ in DEXTROSE 10% INJ 1,000 ML IV SCH (18:58)
[2017-06-18 22:40] LABS: APTT (PATIENT) 48.8 SEC (24.3-30.1)
[2017-06-19] VITALS (12 sets, daily range): BP systolic 98–141; BP diastolic 55–75; PULSE 51–78; RESP 11–20; TEMP 97.1–98.4; O2SAT 88–90
[2017-06-19] MEDS: INSULIN NovoLIN REGULAR SUPPLEMENTAL SCALE SQ SCH ×6 (03:00→23:00)
[2017-06-19] MEDS: DEXTROSE 50% IN WATER 50 ML SYRINGE IV PRN ×3 (03:13→07:04)
[2017-06-19] MEDS: MIDODRINE 5 MG TAB PO SCH ×3 (04:00→20:00)
[2017-06-19] MEDS: CHLORHEXIDINE GLUCONATE 2 % 1 PACK (2 CLOTHS) TOP SCH (04:00)
[2017-06-19] MEDS: HEPARIN-D5W 25,000 U/250 ML 250 ML IV PRN (04:26)
[2017-06-19] MEDS: SODIUM CHLORIDE 0.9% FLUSH 10 ML FLUSH IV FLUSH SCH ×2 (09:00→20:56)
--- NOTE | 2017-06-19 09:20 | HHI.PR ---
Subjective Remarks The patient was resting comfortably. He was undergoing dialysis. He requested a bedside commode. He did not want to work with physical therapy. He said he has not been feeling symptomatic of his hypoglycemia. He has been eating but he says the food is not great. He had a bowel movement yesterday. Discussed with dialysis nurse and floor nurse. Objective Vitals Vital Signs Date Time Temp Pulse Resp B/P (MAP) Pulse Ox O2 Delivery O2 Flow Rate FiO2 06/19/17 06:00 71 06/19/17 04:00 98.3 71 20 131/68 (89) 06/19/17 04:00 71 06/19/17 02:00 70 06/19/17 00:00 97.7 78 16 114/72 (86) 06/19/17 00:00 78 06/18/17 22:00 71 06/18/17 20:00 67 06/18/17 20:00 97.5 67 15 108/62 (77) 06/18/17 18:00 61 06/18/17 17:00 63 06/18/17 16:00 97.9 52 11 06/18/17 16:00 52 06/18/17 15:00 56 06/18/17 14:00 60 06/18/17 13:00 65 06/18/17 12:00 63 06/18/17 12:00 98.3 63 22 108/72 (84) 06/18/17 11:00 63 06/18/17 10:00 51 I/O 06/18/17 06/18/17 06/18/17 06/19/17 06/19/17 06/19/17 07:00 15:00 23:00 07:00 15:00 23:00 Intake Total 490 ml 300 ml 250 ml 1092 ml Output Total 0 ml 0 ml Balance 490 ml 300 ml 250 ml 1092 ml Intake Oral 240 ml 250 ml 120 ml IV Total 250 ml 300 ml 972 ml Output Urine Total 0 ml 0 ml # Bowel Movements 0 1 Result Diagram: 06/17/17 1051 06/17/17 1051 Imaging Last Impressions Catheter Placement X-Ray 06/14/17 0000 Signed Impressions: Service Date/Time: Wednesday, June 14, 2017 15:54 - CONCLUSION: Uncomplicated fluoroscopic-guided central venous permacath exchange as above. Jeff Batista MD Chest X-Ray 06/10/17 1436 Signed Impressions: Service Date/Time: Saturday, June 10, 2017 15:36 - CONCLUSION: 1. Stable chronic interstitial changes. 2. No acute infiltrate. Narendra Barreto Jr., MD Objective Remarks GENERAL: Well-developed, obese patient in no acute distress. HEAD: Atraumatic. Normocephalic. ENT: No nasal bleeding or discharge. NECK: No JVD, no Lymphadenopathy. CARDIOVASCULAR: Regular rate and rhythm. RESPIRATORY: Clear to auscultation bilateral, no wheezing or crackles. GASTROINTESTINAL: Abdomen soft, non-tender, nondistended. Bowel sounds present MUSCULOSKELETAL: Extremities without clubbing, cyanosis, or edema. Status post bilateral BKA with incisions healed. Right upper extremity AV fistula with palpable pulse. New Left femoral tunnel catheter in place with no obvious drainage, erythema, tenderness. NEUROLOGICAL: Awake and alert. No focal deficits. PSYCH: Mood and affect appropriate. Medications and IVs Current Medications Medications (Trade) Dose Ordered Sig/Nohelia Route Start Time Stop Time Status Last Admin Phenylephrine HCl 80 mg/Dextrose 500 ml @ 15 mls/hr TITRATE PRN IV 06/10/17 20:00 06/10/17 23:28 (Brethine Inj) 1 mg UNSCH PRN SQ 06/10/17 18:30 (NS Flush) 2 ml UNSCH PRN IV FLUSH 06/10/17 18:30 (NS Flush) 2 ml BID IV FLUSH 06/10/17 21:00 06/18/17 20:03 (Zofran Inj) 4 mg Q6H PRN IV 06/10/17 18:30 06/14/17 15:19 (Albuterol Neb) 2.5 mg Q2HR NEB PRN INH 06/10/17 18:30 Miscellaneous Information 1 Q361D XX 06/10/17 18:30 (Chlorhexidine 2% Cloth) Taper DAILY@04 TOP 06/11/17 04:00 06/07/18 03:59 06/18/17 04:00 (Chlorhexidine 2% Cloth) 3 pack UNSCH PRN TOP 06/10/17 18:30 (Angelika-Colace) 1 tab BID PO 06/10/17 21:00 06/18/17 09:39 (Milk Of Magnesia Liq) 30 ml Q12H PRN PO 06/10/17 18:30 (Senokot) 17.2 mg Q12H PRN PO 06/10/17 18:30 (Dulcolax Supp) 10 mg DAILY PRN RECTAL 06/10/17 18:30 (Lactulose Liq) 30 ml DAILY PRN PO 06/10/17 18:30 (Proamatine) 10 mg Q8H PO 06/10/17 20:00 06/17/17 20:47 (Protonix) 40 mg DAILY PO 06/10/17 19:30 06/15/17 09:43 Heparin Sodium/ Dextrose 250 ml @ 13.5 mls/hr TITRATE PRN IV 06/10/17 20:00 06/19/17 04:26 (Glucagon Inj) 1 mg UNSCH PRN OTHER 06/11/17 10:00 (NovoLIN R SUPPLEMENTAL SCALE) 1 Q4H SQ 06/11/17 15:00 Sodium Chloride 1,000 ml @ 0 mls/hr Q0M PRN OTHER 06/12/17 15:19 06/17/17 18:00 (Heparin Inj) 8,000 units UNSCH PRN IVF 06/12/17 15:30 Sodium Chloride 1,000 ml @ 200 mls/hr Q5H PRN IV 06/12/17 15:19 Sodium Chloride 1,000 ml @ 0 mls/hr Q0M PRN OTHER 06/12/17 15:19 (Mannitol Inj) 12.5 gm UNSCH PRN IV 06/12/17 15:30 (Albumin 25% Inj) 25 gm UNSCH PRN IV 06/12/17 15:30 06/17/17 18:00 (NS Flush) 5 ml UNSCH PRN IV FLUSH 06/12/17 15:30 (Heparin Inj) UNSCH PRN .XX 06/12/17 15:30 06/17/17 18:00 (Gentamicin (Dialysis) Inj) 20 mg UNSCH PRN IV 06/12/17 15:30 06/17/17 18:00 (Zofran Inj) 4 mg UNSCH PRN IV 06/12/17 15:30 06/15/17 16:09 (Tylenol) 650 mg UNSCH PRN PO 06/12/17 15:30 (Benadryl) 25 mg UNSCH PRN PO 06/12/17 15:30 (Nitrostat Sl) 0.4 mg UNSCH PRN SL 06/12/17 15:30 (Catapres) 0.1 mg UNSCH PRN PO 06/12/17 15:30 (Gelfoam 12 Mm/7 Mm Top) 1 foam UNSCH PRN TOP 06/12/17 15:30 Vancomycin HCl 1000 mg/Sodium Chloride 250 ml @ 250 mls/hr WITH DIALYSIS IV 06/13/17 13:45 06/17/17 16:55 Sodium Chloride 154 meq/Dextrose 1,038.5 ml @ 100 mls/ hr [id number] IV 06/13/17 16:45 06/18/17 18:58 (NS Flush) UNSCH PRN IVF 06/14/17 18:00 (Heparin Inj) UNSCH PRN IV FLUSH 06/14/17 18:00 Fluconazole/ Sodium Chloride 200 ml @ 100 mls/hr Q24H IV 06/16/17 11:00 06/18/17 12:41 Pharmacy Profile Note 0 ml @ 0 mls/hr UNSCH OTHER 06/16/17 10:15 (Coumadin) 4 mg DAILY@1600 PO 06/16/17 16:00 06/18/17 17:01 (D50w (Syr) Inj) 50 ml UNSCH PRN IV 06/17/17 19:30 06/19/17 07:04 (SoluMEDROL INJ) 40 mg Q8HR IV PUSH 06/19/17 09:45 A/P Assessment and Plan Septic shock/ Staph Epi/coag negative staph bacteremia Status post IV fluids resuscitation, Midodrine, stress dose steroids given the patient refusing them at this time. ECHO- EF 55-60%, no RWMA, trace TR, PAP 36mmHG. Blood cultures grew yeast and staph epi. S/p permacath exchange. - stress steroids. - Continue vanco and Diflucan per ID, PermCath line likely source. History of Asthma Chronic basilar interstitial opacities. CXR 06/10 : Chronic interstitial changes, no acute infiltrate. Breathing comfortably. - continue Oxygen and keep Oxygen saturation over 92%. - Continue bronchodilator, mucolytics and incentive spirometry. ESRD On Hemodialysis Tuesday/Tuesday/Tuesday. 06/14 PermCath exchange by IR. - Nephrology specialist following. Fistulogram has been re scheduled as outpatient. SLE VICKI negative in the past, DVT on chronic Warfarin but INR subtherapeutic. - continue Coumadin and Heparin drip. Hypoglycemia Possibly s/t sepsis. - treat sepsis as above. - D10 increased to 1000 ml per hour. - check insulin, c peptide, B-HBA, abdominal US to rule out insulinoma. - regular diet and Nephro added. - steroids. PROPH: Heparin drip will provide DVT prophylaxis. Protonix 40 mg by mouth daily for stress ulcer prophylaxis and history of GERD Discharge Planning Awaiting clinical improvement Amador Oneill DO Jun 19, 2017 09:20
[2017-06-19 10:19] LABS: APTT (PATIENT) 50.1 SEC (24.3-30.1)
[2017-06-19 10:22] LABS: INTERNATIONAL NORMALIZED RATIO 1.4 RATIO; PROTHROMBIN TIME - PATIENT 15.2 SEC (9.8-11.6)
[2017-06-19 10:38] LABS: ANION GAP 18 MEQ/L (5-15); BICARBONATE 23.1 MEQ/L (21.0-32.0); BLOOD UREA NITROGEN 55 MG/DL (7-18); CHLORIDE 98 MEQ/L (98-107); GLOMERULAR FILTRATION RATE 6 ML/MIN (>89); POTASSIUM 4.7 MEQ/L (3.5-5.1); SODIUM (NA) 139 MEQ/L (136-145)
[2017-06-19 10:39] LABS: BETA-HYDROXYBUTYRATE LESS THAN 0.00 MMOL/L (0.00-0.39)
[2017-06-19] MEDS: SODIUM CHLORIDE 23.4% INJ 154 MEQ in DEXTROSE 10% INJ 1,000 ML IV SCH ×2 (11:34→20:49)
[2017-06-19] MEDS: GENTAMICIN SULFATE (DIALYSIS USE ONLY) 20 MG/2 ML VIAL IV PRN (11:40)
[2017-06-19] MEDS: MANNITOL 12.5 GM/50 ML VIAL IV PRN (11:40)
[2017-06-19] MEDS: HEPARIN SODIUM - IV 10,000 UNITS/10 ML VIAL PRN (11:40)
[2017-06-19] MEDS: SODIUM CHLOR 0.9% 1000 ML INJ 1,000 ML OTHER PRN (11:40)
[2017-06-19] MEDS: methylPREDNISolone SOD SUCC 40 MG/1 ML VIAL IV PUSH SCH ×3 (12:35→21:49)
[2017-06-19] MEDS: FLUCONAZOLE 400 MG PREMIX BAG 200 ML IV SCH (12:35)
[2017-06-19] MEDS: DOCUSATE SODIUM 50 MG/SENNA 8.6 MG TAB PO SCH ×2 (12:35→21:49)
[2017-06-19] MEDS: PANTOPRAZOLE SOD 40 MG DELAYED RELEASE TAB PO SCH (12:35)
--- NOTE | 2017-06-19 14:59 | RADRPT ---
EXAM DATE/TIME: 06/19/2017 13:34 [facility] COMPARISON: No previous studies available for comparison. INDICATIONS : Evaulate for insulinomia. MEDICAL HISTORY : Congestive heart failure. Arthritis. Lupus. CVA. Coronary artery disease. Hypercoagulopathy. Chest pa in. DVT. COPD. Asthma. Renal disease and failure. Anxiety. Anticoagulant therapy. MRSA. SURGICAL HISTORY : Coronary artery stent. CVA. Coronary artery disease. Hypercoagulopathy. Chest pain. DVT. COPD. As thma. Renal disease and failure. Anxiety. Anticoagulant therapy. MRSA. ENCOUNTER: Initial ACUITY: 1 day PAIN SCORE: 3/10 LOCATION: Right upper quadrant MEASUREMENTS: LIVER: 16.0 cm length COMMON DUCT: 4 mm RIGHT KIDNEY: 8.7 x 4.7 x 4.3 cm FINDINGS: LIVER: Normal echotexture without focal lesion or ductal dilatation. COMMON DUCT: No intraluminal mass or stone visualized. GALLBLADDER: Gallbladder wall is mildly thickened. Debris is identified within the gallbladder. PANCREAS: The visualized portions are within normal limits. Right kidney is hyperechoic. 2 cysts are identified measuring 1.9 cm each. CONCLUSION: 1. Gallbladder sludge with mild wall thickening 2. No evidence of suspicious mass 3. Hyperechoic right kidney 4. 2 right renal cysts. Jatin Fontanez MD on June 19, 2017 at 14:53 Board Certified Radiologist. This report was verified electronically.
[2017-06-19] MEDS: WARFARIN SOD 4 MG TAB PO SCH (15:57)
[2017-06-19 17:34] LABS: HEMATOCRIT 44.4 % (39.0-51.0); MEAN CELL VOLUME 100.3 FL (80.0-100.0); MEAN CORPUSCULAR HEMOGLOBIN 32.6 PG (27.0-34.0); MEAN CORPUSCULAR HGB CONC 32.5 % (32.0-36.0); PLATELET COUNT 95 TH/MM3 (150-450); RED BLOOD COUNT 4.43 MIL/MM3 (4.50-5.90); RED CELL DISTRIBUTION WIDTH 20.4 % (11.6-17.2)
[2017-06-19 17:38] LABS: REVIEW FLAG AUTO DIFF
[2017-06-20] VITALS (12 sets, daily range): BP systolic 116–145; BP diastolic 66–74; PULSE 47–68; RESP 13–24; TEMP 98.1–99.1
[2017-06-20] MEDS: INSULIN NovoLIN REGULAR SUPPLEMENTAL SCALE SQ SCH ×6 (02:52→23:00)
[2017-06-20] MEDS: CHLORHEXIDINE GLUCONATE 2 % 1 PACK (2 CLOTHS) TOP SCH (02:53)
[2017-06-20] MEDS: MIDODRINE 5 MG TAB PO SCH ×3 (04:00→20:00)
[2017-06-20] MEDS: methylPREDNISolone SOD SUCC 40 MG/1 ML VIAL IV PUSH SCH (06:00)
[2017-06-20] MEDS: HEPARIN-D5W 25,000 U/250 ML 250 ML IV PRN (06:46)
[2017-06-20 08:55] LABS: APTT (PATIENT) 57.6 SEC (24.3-30.1)
[2017-06-20] MEDS: DOCUSATE SODIUM 50 MG/SENNA 8.6 MG TAB PO SCH ×2 (09:00→20:37)
[2017-06-20] MEDS: SODIUM CHLORIDE 0.9% FLUSH 10 ML FLUSH IV FLUSH SCH ×2 (09:00→20:38)
[2017-06-20] MEDS: PANTOPRAZOLE SOD 40 MG DELAYED RELEASE TAB PO SCH (09:00)
[2017-06-20 09:05] LABS: INTERNATIONAL NORMALIZED RATIO 1.7 RATIO
--- NOTE | 2017-06-20 09:28 | HHI.PR ---
Subjective Remarks The patient wants to go home. He says that he doesn't like the effects of the steroids. He also says his blood pressure medication gives him the urge to urinate but he cannot do so. He was about to have dialysis, discussed with dialysis nurse. Objective Vitals Vital Signs Date Time Temp Pulse Resp B/P (MAP) Pulse Ox O2 Delivery O2 Flow Rate FiO2 06/20/17 08:00 48 06/20/17 08:00 98.9 48 16 133/69 (90) 06/20/17 06:00 48 06/20/17 04:00 50 06/20/17 04:00 98.6 50 20 145/66 (92) 06/20/17 02:00 50 06/20/17 00:00 99.1 59 24 133/74 (93) 06/20/17 00:00 59 06/19/17 22:00 64 06/19/17 20:00 65 06/19/17 20:00 98.4 65 11 117/75 (89) 90 06/19/17 18:00 58 06/19/17 16:00 56 06/19/17 16:00 98.1 56 12 141/63 (89) 06/19/17 14:00 75 06/19/17 12:00 66 06/19/17 12:00 97.1 66 19 98/55 (69) 06/19/17 10:00 65 I/O 06/19/17 06/19/17 06/19/17 06/20/17 06/20/17 06/20/17 07:00 15:00 23:00 07:00 15:00 23:00 Intake Total 1092 ml 1000 ml 600 ml 490 ml Output Total 0 ml 3000 ml 0 ml Balance 1092 ml -2000 ml 600 ml 490 ml Intake Oral 120 ml 400 ml 240 ml IV Total 972 ml 1000 ml 200 ml 250 ml Output Urine Total 0 ml 0 ml Hemodialysis 3000 ml # Bowel Movements 0 Result Diagram: 06/19/17 1715 06/19/17 0920 Imaging Last Impressions Pancreas Ultrasound 06/19/17 0000 Signed Impressions: Service Date/Time: Monday, June 19, 2017 13:34 - CONCLUSION: 1. Gallbladder sludge with mild wall thickening 2. No evidence of suspicious mass 3. Hyperechoic right kidney 4. 2 right renal cysts. Jatin Fontanez MD Catheter Placement X-Ray 06/14/17 0000 Signed Impressions: Service Date/Time: Wednesday, June 14, 2017 15:54 - CONCLUSION: Uncomplicated fluoroscopic-guided central venous permacath exchange as above. Jeff Batista MD Chest X-Ray 06/10/17 1436 Signed Impressions: Service Date/Time: Saturday, June 10, 2017 15:36 - CONCLUSION: 1. Stable chronic interstitial changes. 2. No acute infiltrate. Narendra Barreto Jr., MD Objective Remarks GENERAL: Well-developed, obese patient in no acute distress. HEAD: Atraumatic. Normocephalic. ENT: No nasal bleeding or discharge. NECK: No JVD, no Lymphadenopathy. CARDIOVASCULAR: Regular rate and rhythm. RESPIRATORY: Clear to auscultation bilateral, no wheezing or crackles. GASTROINTESTINAL: Abdomen soft, non-tender, nondistended. Bowel sounds present MUSCULOSKELETAL: Extremities without clubbing, cyanosis, or edema. Status post bilateral BKA with incisions healed. Right upper extremity AV fistula with palpable pulse. New Left femoral tunnel catheter in place with no obvious drainage, erythema, tenderness. NEUROLOGICAL: Awake and alert. No focal deficits. PSYCH: Mood and affect appropriate. Medications and IVs Current Medications Medications (Trade) Dose Ordered Sig/Nohelia Route Start Time Stop Time Status Last Admin Phenylephrine HCl 80 mg/Dextrose 500 ml @ 15 mls/hr TITRATE PRN IV 06/10/17 20:00 06/10/17 23:28 (Brethine Inj) 1 mg UNSCH PRN SQ 06/10/17 18:30 (NS Flush) 2 ml UNSCH PRN IV FLUSH 06/10/17 18:30 (NS Flush) 2 ml BID IV FLUSH 06/10/17 21:00 06/19/17 09:00 (Zofran Inj) 4 mg Q6H PRN IV 06/10/17 18:30 06/14/17 15:19 (Albuterol Neb) 2.5 mg Q2HR NEB PRN INH 06/10/17 18:30 Miscellaneous Information 1 Q361D XX 06/10/17 18:30 (Chlorhexidine 2% Cloth) Taper DAILY@04 TOP 06/11/17 04:00 06/07/18 03:59 06/18/17 04:00 (Chlorhexidine 2% Cloth) 3 pack UNSCH PRN TOP 06/10/17 18:30 (Angelika-Colace) 1 tab BID PO 06/10/17 21:00 06/19/17 21:49 (Milk Of Magnesia Liq) 30 ml Q12H PRN PO 06/10/17 18:30 (Senokot) 17.2 mg Q12H PRN PO 06/10/17 18:30 (Dulcolax Supp) 10 mg DAILY PRN RECTAL 06/10/17 18:30 (Lactulose Liq) 30 ml DAILY PRN PO 06/10/17 18:30 (Proamatine) 10 mg Q8H PO 06/10/17 20:00 06/17/17 20:47 (Protonix) 40 mg DAILY PO 06/10/17 19:30 06/19/17 12:35 Heparin Sodium/ Dextrose 250 ml @ 13.5 mls/hr TITRATE PRN IV 06/10/17 20:00 06/20/17 06:46 (Glucagon Inj) 1 mg UNSCH PRN OTHER 06/11/17 10:00 (NovoLIN R SUPPLEMENTAL SCALE) 1 Q4H SQ 06/11/17 15:00 Sodium Chloride 1,000 ml @ 0 mls/hr Q0M PRN OTHER 06/12/17 15:19 06/19/17 11:40 (Heparin Inj) 8,000 units UNSCH PRN IVF 06/12/17 15:30 Sodium Chloride 1,000 ml @ 200 mls/hr Q5H PRN IV 06/12/17 15:19 Sodium Chloride 1,000 ml @ 0 mls/hr Q0M PRN OTHER 06/12/17 15:19 (Mannitol Inj) 12.5 gm UNSCH PRN IV 06/12/17 15:30 06/19/17 11:40 (Albumin 25% Inj) 25 gm UNSCH PRN IV 06/12/17 15:30 06/17/17 18:00 (NS Flush) 5 ml UNSCH PRN IV FLUSH 06/12/17 15:30 (Heparin Inj) UNSCH PRN .XX 06/12/17 15:30 06/19/17 11:40 (Gentamicin (Dialysis) Inj) 20 mg UNSCH PRN IV 06/12/17 15:30 06/19/17 11:40 (Zofran Inj) 4 mg UNSCH PRN IV 06/12/17 15:30 06/15/17 16:09 (Tylenol) 650 mg UNSCH PRN PO 06/12/17 15:30 (Benadryl) 25 mg UNSCH PRN PO 06/12/17 15:30 (Nitrostat Sl) 0.4 mg UNSCH PRN SL 06/12/17 15:30 (Catapres) 0.1 mg UNSCH PRN PO 06/12/17 15:30 (Gelfoam 12 Mm/7 Mm Top) 1 foam UNSCH PRN TOP 06/12/17 15:30 Vancomycin HCl 1000 mg/Sodium Chloride 250 ml @ 250 mls/hr WITH DIALYSIS IV 06/13/17 13:45 06/17/17 16:55 Sodium Chloride 154 meq/Dextrose 1,038.5 ml @ 100 mls/ hr [id number] IV 06/13/17 16:45 06/19/17 20:49 (NS Flush) UNSCH PRN IVF 06/14/17 18:00 (Heparin Inj) UNSCH PRN IV FLUSH 06/14/17 18:00 Fluconazole/ Sodium Chloride 200 ml @ 100 mls/hr Q24H IV 06/16/17 11:00 06/19/17 12:35 Pharmacy Profile Note 0 ml @ 0 mls/hr UNSCH OTHER 06/16/17 10:15 (Coumadin) 4 mg DAILY@1600 PO 06/16/17 16:00 06/19/17 15:57 (D50w (Syr) Inj) 50 ml UNSCH PRN IV 06/17/17 19:30 06/19/17 07:04 (SoluMEDROL INJ) 40 mg Q8HR IV PUSH 06/19/17 09:45 06/19/17 21:49 A/P Assessment and Plan Septic shock/ Staph Epi/coag negative staph bacteremia Status post IV fluids resuscitation, Midodrine, stress dose steroids given the patient refusing them at this time. ECHO- EF 55-60%, no RWMA, trace TR, PAP 36mmHG. Blood cultures grew yeast and staph epi. S/p permacath exchange. - Status post stress steroids. Patient refused most doses. - Continue vanco and Diflucan per ID, PermCath line likely source. History of Asthma Chronic basilar interstitial opacities. CXR 06/10 : Chronic interstitial changes, no acute infiltrate. Breathing comfortably. - continue Oxygen and keep Oxygen saturation over 92%. - Continue bronchodilator, mucolytics and incentive spirometry. ESRD On Hemodialysis Tuesday/Tuesday/Tuesday. 06/14 PermCath exchange by IR. - Nephrology specialist following. Fistulogram has been rescheduled as outpatient. SLE/ DVT VICKI negative in the past. DVT on chronic Warfarin, but INR subtherapeutic. - continue Coumadin and Heparin drip. Hypoglycemia Possibly s/t sepsis. Workup in progress. Pancreatic ultrasound negative for insulinoma. - treat sepsis as above. - D10 increased to 100 ml per hour. - check insulin, proinsulin, c peptide, B-HBA, abdominal US to rule out insulinoma. - regular diet and Nephro added. PROPH: Heparin drip will provide DVT prophylaxis. Protonix 40 mg by mouth daily for stress ulcer prophylaxis and history of GERD Discharge Planning Awaiting improvement in stabilization and blood sugar as well as clearance from infectious disease. Amador Oneill DO Jun 20, 2017 09:28
[2017-06-20] MEDS: SODIUM CHLORIDE 23.4% INJ 154 MEQ in DEXTROSE 10% INJ 1,000 ML IV SCH ×2 (10:22→21:25)
[2017-06-20] MEDS: FLUCONAZOLE 400 MG PREMIX BAG 200 ML IV SCH (10:27)
[2017-06-20] MEDS: VANCOMYCIN INJ 1,000 MG in SODIUM CHLOR 0.9% 250 ML INJ 250 ML IV SCH (11:05)
--- NOTE | 2017-06-20 15:16 | HHI.IDPN ---
Subjective Subjective Remarks Patient is a 46-year-old male, with known ESRD, on hemodialysis Tuesday and Tuesday, presented to the hospital complaining of low blood pressure, and fever. Patient states his blood pressure is generally on the low side, but usually runs around 80-90 systolic. He had his usual hemodialysis on the day of admission, and his vitals were stable at that time. When he went home however, he felt like he had a fever, and he's check his blood pressure and it was in the 60s. He denies any respiratory complaint. He denies any shortness of breath. No abdominal pain, nausea vomiting or diarrhea. He has no significant urine output. He has not been around anyone sick. In the emergency room he had a blood pressure in the 60s, and he was febrile up to 103. His WBC is normal. Sedimentation rate 1. Lactic acid 4.2, and it's down to 1.1 today. Her temperatures are better. He is on pressors currently. He offers no specific complaint at the time my exam. Patient has known central venous occlusion, and venous access for his hemodialysis has been a problem. He currently has a left groin permacath, and it was last exchange last May 16. He has a right upper extremity AV fistula that was placed in February, and in March, he was admitted and treated for a wound infection in his AV fistula incision that grew out enterococcus. His blood cultures were negative at that time. He was treated aggressively with IV antibiotic and he completed treatment back in April. The wound has completely healed. His AV fistula has recently been access the last 2 times he had hemodialysis. Only one of the limb was access, and the groin permacath was also used. Notes reviewed D/W RN No fever BS better - still on D10 Had HD today, got dose of vanco BC with Edita parapsilosis from 06/14 Last (+) BC withn Staph epi 06/14 Permacath exchange done 06/14 Antibiotics Vancomycin fluconazole Lines L groin permacath Past Medical History ESRD on hemodialysis SLE E CAD Hypertension Severe PVD History of DVT Anemia Hyperparathyroidism of renal origin Previous dialysis catheter line infection Known central venous occlusion Past Surgical History Bilateral BKA 2 fingers amputated Previous dialysis access in his left upper extremity Recent AV fistula creation in the right upper extremity Previous revascularization procedures for PVD Allergies: Coded Allergies: iodine (Unverified Allergy, Severe, blisters, 06/10/17) morphine (Unverified Allergy, Severe, Itching, 06/10/17) potassium iodide (Unverified Allergy, Severe, blisters, 06/10/17) povidone-iodine (Unverified Allergy, Severe, blisters, 06/10/17) sodium iodide (Unverified Allergy, Severe, blisters, 06/10/17) sodium iodide (Unverified Allergy, Severe, blisters, 06/10/17) Objective . Vital Signs Date Time Temp Pulse Resp B/P (MAP) Pulse Ox O2 Delivery O2 Flow Rate FiO2 06/20/17 14:00 61 06/20/17 12:00 98.4 68 14 116/67 (83) 06/20/17 12:00 68 06/20/17 10:00 66 06/20/17 08:00 48 06/20/17 08:00 98.9 48 16 133/69 (90) 06/20/17 06:00 48 06/20/17 04:00 50 06/20/17 04:00 98.6 50 20 145/66 (92) 06/20/17 02:00 50 06/20/17 00:00 99.1 59 24 133/74 (93) 06/20/17 00:00 59 06/19/17 22:00 64 06/19/17 20:00 65 06/19/17 20:00 98.4 65 11 117/75 (89) 90 06/19/17 18:00 58 06/19/17 16:00 56 06/19/17 16:00 98.1 56 12 141/63 (89) 06/20/17 06/20/17 06/21/17 15:00 23:00 07:00 Intake Total 1000 ml Output Total 3500 ml Balance -2500 ml IV Total 1000 ml Hemodialysis 3500 ml . Laboratory Tests Test 06/19/17 17:15 White Blood Count 9.0 TH/MM3 Red Blood Count 4.43 MIL/MM3 Hemoglobin 14.4 GM/DL Hematocrit 44.4 % Mean Corpuscular Volume 100.3 FL Mean Corpuscular Hemoglobin 32.6 PG Mean Corpuscular Hemoglobin Concent 32.5 % Red Cell Distribution Width 20.4 % Platelet Count 95 TH/MM3 Mean Platelet Volume 9.3 FL Laboratory Tests Test 06/19/17 09:20 06/20/17 10:30 Blood Urea Nitrogen 55 MG/DL Creatinine 10.53 MG/DL Random Glucose 54 MG/DL Calcium Level 9.1 MG/DL Sodium Level 139 MEQ/L Potassium Level 4.7 MEQ/L Chloride Level 98 MEQ/L Carbon Dioxide Level 23.1 MEQ/L Anion Gap 18 MEQ/L Estimat Glomerular Filtration Rate 6 ML/MIN Imaging Pancreas Ultrasound 06/19/17 0000 Signed Impressions: Service Date/Time: Monday, June 19, 2017 13:34 - CONCLUSION: 1. Gallbladder sludge with mild wall thickening 2. No evidence of suspicious mass 3. Hyperechoic right kidney 4. 2 right renal cysts. Jatin Fontanez MD Catheter Placement X-Ray 06/14/17 0000 Signed Impressions: Service Date/Time: Wednesday, June 14, 2017 15:54 - CONCLUSION: Uncomplicated fluoroscopic-guided central venous permacath exchange as above. Jeff Batista MD Chest X-Ray 06/10/17 1436 Signed Impressions: Service Date/Time: Saturday, June 10, 2017 15:36 - CONCLUSION: 1. Stable chronic interstitial changes. 2. No acute infiltrate. Narendra Barreto Jr., MD Physical Exam GENERAL: awake and alert, not in respiratory distress. SKIN: Warm and dry. No generalized rash, no ecchymoses and no evidence of embolic lesions. HEAD: Atraumatic. Normocephalic. No temporal wasting, or tenderness. EYES: [place] conjunctiva. No petechia or hemorrhage. Extraocular movements full and intact. No scleral icterus. No injection or drainage. EARS, NOSE AND THROAT: Nose without bleeding or purulent nasal discharge. No sinus tenderness. Mucous membranes pink and moist. No oral lesions noted. No exudate. No oral thrush. CARDIOVASCULAR: Regular rate and rhythm. No murmurs, rubs or gallops heard RESPIRATORY: Clear to auscultation. Breath sounds equal bilaterally. No rales , wheezing or rhonchi ABDOMEN: Soft, nondistended, with diffuse abdominal tenderness. Bowel sounds present and normoactive. No guarding. No rebound. No organomegaly. EXTREMITIES: No clubbing, cyanosis, or edema. Has jacqueline BKA, well healed stump. L thigh permacath site with no evidence of infection NEUROLOGICAL: awake and alert Grossly non-focal PSYCHIATRIC: Normal affect, calm and cooperative. 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 better Episodes of hypoglycemia, etiology? RECOMMENDATION Follow C/S Continue Vanco - will give with each HD - to cover (+) BC with Staph epi - give until July 11 Continue Diflucan - plan till Jul 11 Monitor progress D/W Louann Hart MD Jun 20, 2017 15:16
[2017-06-20] MEDS: WARFARIN SOD 4 MG TAB PO SCH (15:41)
--- NOTE | 2017-06-20 16:44 | HHI.NPPN ---
Subjective History of Present Illness This patient is a 46-year-old male with a history of end-stage renal disease, SLE, hypertension, peripheral vascular disease as well as secondary hyperparathyroidism of renal disease. Unfortunately the patient has had multiple dialysis accesses including dialysis shunts and dialysis catheters in the past complicated by access failure as well as infection. Patient now has very limited options for dialysis access. Presently we are relying on a left femoral dialysis line for access. Fortunately vessel surgery was able to create a left arm AV dialysis fistula back in February. It has matured somewhat but not ideally and presently we are using one needle in the fistula while port at the dialysis line has been used for dialysis access. We have not yet tried to use 2 needles in the AV dialysis shunt. Patient presents now with a history of chills, fever postdialysis yesterday and was noted to be hypotensive on presentation with blood pressures in the 60s. Patient's blood pressure has since improved however. Blood cultures negative 24 hours at time of consultation. Patient did receive cefepime and vancomycin since admission. Infectious disease on board.. Interval History Patient had no verbal complaints today. Objective Data Data 06/20/17 06/21/17 19:00 07:00 Intake Total 1000 ml Output Total 3500 ml Balance -2500 ml IV Total 1000 ml Hemodialysis 3500 ml Vital Signs Date Time Temp Pulse Resp B/P (MAP) Pulse Ox O2 Delivery O2 Flow Rate FiO2 06/20/17 16:00 51 06/20/17 16:00 98.1 51 13 126/67 (86) 06/20/17 14:00 61 06/20/17 12:00 98.4 68 14 116/67 (83) 06/20/17 12:00 68 06/20/17 10:00 66 06/20/17 08:00 48 06/20/17 08:00 98.9 48 16 133/69 (90) 06/20/17 06:00 48 06/20/17 04:00 50 06/20/17 04:00 98.6 50 20 145/66 (92) 06/20/17 02:00 50 06/20/17 00:00 99.1 59 24 133/74 (93) 06/20/17 00:00 59 06/19/17 22:00 64 06/19/17 20:00 65 06/19/17 20:00 98.4 65 11 117/75 (89) 90 06/19/17 18:00 58 -: 06/19/17 1715 06/19/17 0920 Physical Exam General Appearance: Well Developed, Well Nourished, No Acute Distress, Comfortable Eyes Eye Exam: Sclera White Pulmonary Resp Exam: Clear Bilaterally, Breath Sounds Equal Cardiology CV Exam: Regular, Normal Sinus Rhythm, Good Perfusion Gastrointestinal/Abdomen GI Exam: Soft, Non-Tender Integumentary Skin Exam: Clear, Warm, Normal Turgor Extremeties Extremities Exam: Trace Edema Neurologic Neuro Exam: Alert, Awake Psychiatric Psych Exam: Appropriate Responses Assessment/Plan Discussed Condition With: Patient Problem List: (1) ESRD (end stage renal disease) on dialysis ICD Codes: N18.6 - End stage renal disease; Z99.2 - Dependence on renal dialysis Status: Chronic Plan: Fistulogram has been rescheduled as an outpatient. PermCath however appears to be working well. BCx were positive for Edita parapsilosis. Infectious disease following. Continue antibiotics as per infectious disease. Patient had questions regarding possible options for dialysis access in the future given limited options currently available. He was advised the best hope is that this fistula in his right upper extremity is able to be used. If the fistula does not lynn out will discuss with vascular surgery if it could be converted to a [place]-Carlos graft. Eventually the femoral catheter will become nonfunctional and if we cannot create an AV dialysis shunt one option might be a transhepatic dialysis catheter. I also discussed with the patient the option of peritoneal dialysis. However the patient has a history of compliance issues and if he does go on peritoneal dialysis he may have institutionalized as I do not believe he will be able to perform it himself competently. Noted discharge cleared by infectious disease. Patient however is having episodes of hypoglycemia etiology uncertain. Will check LFTs. Medication should be adjusted for the patient's end-stage renal disease when indicated. Avoid gadolinium. (2) Sepsis ICD Codes: A41.9 - Sepsis, unspecified organism Status: Acute Plan: Patient still has intravenous steroids ordered. I have asked the nurse to discuss discontinuing same with critical care given the presence of infection particularly possible fungemia. (3) Complications, dialysis, catheter, mechanical ICD Codes: T82.49XA - Other complication of vascular dialysis catheter, initial encounter Status: Acute Plan: Await fistulogram results as outpatient and interim continue to use femoral catheter Has severe PVD complicating access. (4) Abdominal pain ICD Codes: R10.9 - Unspecified abdominal pain Status: Resolved Plan: New since last evening. Amylase/lipase ordered and appear normal. Will defer to CC (5) Lupus (systemic lupus erythematosus) ICD Codes: M32.9 - Systemic lupus erythematosus, unspecified (6) Deep vein thrombosis (DVT) ICD Codes: I82.409 - Acute embolism and thrombosis of unspecified deep veins of unspecified lower extremity Permanent Comment: The patient has been on anticoagulation therapy in the past however he is very poorly compliant in this regard . Last Edited By: Raul Merlos on Jun 11, 2017 13:34 Clarence Merlos MD Jun 20, 2017 16:44
[2017-06-20] MEDS: GENTAMICIN SULFATE (DIALYSIS USE ONLY) 20 MG/2 ML VIAL IV PRN (18:59)
[2017-06-20] MEDS: ALBUMIN HUMAN 25% 25 GM/100 ML BAGP IV PRN (18:59)
[2017-06-20] MEDS: SODIUM CHLOR 0.9% 1000 ML INJ 1,000 ML OTHER PRN (18:59)
[2017-06-20] MEDS: HEPARIN SODIUM - IV 10,000 UNITS/10 ML VIAL PRN (18:59)
[2017-06-21] VITALS (12 sets, daily range): BP systolic 108–135; BP diastolic 60–84; PULSE 48–82; RESP 12–25; TEMP 97.2–98.6; O2SAT 92
[2017-06-21] MEDS: INSULIN NovoLIN REGULAR SUPPLEMENTAL SCALE SQ SCH ×6 (03:00→23:00)
[2017-06-21] MEDS: MIDODRINE 5 MG TAB PO SCH ×3 (03:05→20:00)
[2017-06-21] MEDS: CHLORHEXIDINE GLUCONATE 2 % 1 PACK (2 CLOTHS) TOP SCH (03:05)
[2017-06-21] MEDS: DEXTROSE 50% IN WATER 50 ML SYRINGE IV PRN ×3 (07:07→11:29)
[2017-06-21] MEDS: HEPARIN-D5W 25,000 U/250 ML 250 ML IV PRN (07:09)
[2017-06-21] MEDS: SODIUM CHLORIDE 23.4% INJ 154 MEQ in DEXTROSE 10% INJ 1,000 ML IV SCH ×2 (08:28→18:30)
[2017-06-21] MEDS: DOCUSATE SODIUM 50 MG/SENNA 8.6 MG TAB PO SCH ×2 (08:28→21:42)
[2017-06-21] MEDS: PANTOPRAZOLE SOD 40 MG DELAYED RELEASE TAB PO SCH (08:28)
[2017-06-21] MEDS: SODIUM CHLORIDE 0.9% FLUSH 10 ML FLUSH IV FLUSH SCH ×2 (08:29→21:42)
--- NOTE | 2017-06-21 09:57 | HHI.PR ---
Subjective Remarks The patient said he was tired of getting his arm stuck. He wanted to go home. He said he didn't want be on heparin anymore. Discussed with nursing at the bedside. Objective Vitals Vital Signs Date Time Temp Pulse Resp B/P (MAP) Pulse Ox O2 Delivery O2 Flow Rate FiO2 06/21/17 08:00 66 06/21/17 08:00 98.4 56 14 135/70 (91) 06/21/17 06:00 51 06/21/17 04:00 97.5 48 18 125/72 (89) 06/21/17 04:00 48 06/21/17 02:00 52 06/21/17 00:00 97.2 49 25 126/84 (98) 06/21/17 00:00 49 06/20/17 22:00 47 06/20/17 20:00 98.3 51 18 123/69 (87) 06/20/17 20:00 51 06/20/17 18:00 51 06/20/17 16:00 51 06/20/17 16:00 98.1 51 13 126/67 (86) 06/20/17 14:00 61 06/20/17 12:00 98.4 68 14 116/67 (83) 06/20/17 12:00 68 06/20/17 10:00 66 I/O 06/20/17 06/20/17 06/20/17 06/21/17 06/21/17 06/21/17 06:59 14:59 22:59 06:59 14:59 22:59 Intake Total 490 ml 1000 ml 1388 ml 240 ml 250 ml Output Total 3500 ml 0 ml 0 ml Balance 490 ml -2500 ml 1388 ml 240 ml 250 ml Intake Oral 240 ml 350 ml 240 ml IV Total 250 ml 1000 ml 1038 ml 250 ml Output Urine Total 0 ml 0 ml Hemodialysis 3500 ml # Bowel Movements 0 Result Diagram: 06/19/17 1715 06/19/17 0920 Imaging Last Impressions Pancreas Ultrasound 06/19/17 0000 Signed Impressions: Service Date/Time: Monday, June 19, 2017 13:34 - CONCLUSION: 1. Gallbladder sludge with mild wall thickening 2. No evidence of suspicious mass 3. Hyperechoic right kidney 4. 2 right renal cysts. Jatin Fontanez MD Catheter Placement X-Ray 06/14/17 0000 Signed Impressions: Service Date/Time: Wednesday, June 14, 2017 15:54 - CONCLUSION: Uncomplicated fluoroscopic-guided central venous permacath exchange as above. Jeff Batista MD Chest X-Ray 06/10/17 1436 Signed Impressions: Service Date/Time: Saturday, June 10, 2017 15:36 - CONCLUSION: 1. Stable chronic interstitial changes. 2. No acute infiltrate. Narendra Barreto Jr., MD Objective Remarks GENERAL: Well-developed, obese patient in no acute distress. HEAD: Atraumatic. Normocephalic. ENT: No nasal bleeding or discharge. NECK: No JVD, no Lymphadenopathy. CARDIOVASCULAR: Regular rate and rhythm. RESPIRATORY: Clear to auscultation bilateral, no wheezing or crackles. GASTROINTESTINAL: Abdomen soft, non-tender, nondistended. Bowel sounds present MUSCULOSKELETAL: Extremities without clubbing, cyanosis, or edema. Status post bilateral BKA with incisions healed. Right upper extremity AV fistula with palpable pulse. New Left femoral tunnel catheter in place with no obvious drainage, erythema, tenderness. NEUROLOGICAL: Awake and alert. No focal deficits. PSYCH: Mood and affect appropriate. Medications and IVs Current Medications Medications (Trade) Dose Ordered Sig/Nohelia Route Start Time Stop Time Status Last Admin Phenylephrine HCl 80 mg/Dextrose 500 ml @ 15 mls/hr TITRATE PRN IV 06/10/17 20:00 06/10/17 23:28 (Brethine Inj) 1 mg UNSCH PRN SQ 06/10/17 18:30 (NS Flush) 2 ml UNSCH PRN IV FLUSH 06/10/17 18:30 (NS Flush) 2 ml BID IV FLUSH 06/10/17 21:00 06/20/17 09:00 (Zofran Inj) 4 mg Q6H PRN IV 06/10/17 18:30 06/14/17 15:19 (Albuterol Neb) 2.5 mg Q2HR NEB PRN INH 06/10/17 18:30 Miscellaneous Information 1 Q361D XX 06/10/17 18:30 (Chlorhexidine 2% Cloth) Taper DAILY@04 TOP 06/11/17 04:00 06/07/18 03:59 06/18/17 04:00 (Chlorhexidine 2% Cloth) 3 pack UNSCH PRN TOP 06/10/17 18:30 (Angelika-Colace) 1 tab BID PO 06/10/17 21:00 06/20/17 20:37 (Milk Of Magnesia Liq) 30 ml Q12H PRN PO 06/10/17 18:30 (Senokot) 17.2 mg Q12H PRN PO 06/10/17 18:30 (Dulcolax Supp) 10 mg DAILY PRN RECTAL 06/10/17 18:30 (Lactulose Liq) 30 ml DAILY PRN PO 06/10/17 18:30 (Proamatine) 10 mg Q8H PO 06/10/17 20:00 06/17/17 20:47 (Protonix) 40 mg DAILY PO 06/10/17 19:30 06/19/17 12:35 Heparin Sodium/ Dextrose 250 ml @ 13.5 mls/hr TITRATE PRN IV 06/10/17 20:00 06/21/17 07:09 (Glucagon Inj) 1 mg UNSCH PRN OTHER 06/11/17 10:00 (NovoLIN R SUPPLEMENTAL SCALE) 1 Q4H SQ 06/11/17 15:00 Sodium Chloride 1,000 ml @ 0 mls/hr Q0M PRN OTHER 06/12/17 15:19 06/20/17 18:59 (Heparin Inj) 8,000 units UNSCH PRN IVF 06/12/17 15:30 Sodium Chloride 1,000 ml @ 200 mls/hr Q5H PRN IV 06/12/17 15:19 Sodium Chloride 1,000 ml @ 0 mls/hr Q0M PRN OTHER 06/12/17 15:19 (Mannitol Inj) 12.5 gm UNSCH PRN IV 06/12/17 15:30 06/19/17 11:40 (Albumin 25% Inj) 25 gm UNSCH PRN IV 06/12/17 15:30 06/20/17 18:59 (NS Flush) 5 ml UNSCH PRN IV FLUSH 06/12/17 15:30 (Heparin Inj) UNSCH PRN .XX 06/12/17 15:30 06/20/17 18:59 (Gentamicin (Dialysis) Inj) 20 mg UNSCH PRN IV 06/12/17 15:30 06/20/17 18:59 (Zofran Inj) 4 mg UNSCH PRN IV 06/12/17 15:30 06/15/17 16:09 (Tylenol) 650 mg UNSCH PRN PO 06/12/17 15:30 (Benadryl) 25 mg UNSCH PRN PO 06/12/17 15:30 (Nitrostat Sl) 0.4 mg UNSCH PRN SL 06/12/17 15:30 (Catapres) 0.1 mg UNSCH PRN PO 06/12/17 15:30 (Gelfoam 12 Mm/7 Mm Top) 1 foam UNSCH PRN TOP 06/12/17 15:30 Vancomycin HCl 1000 mg/Sodium Chloride 250 ml @ 250 mls/hr WITH DIALYSIS IV 06/13/17 13:45 06/20/17 11:05 Sodium Chloride 154 meq/Dextrose 1,038.5 ml @ 100 mls/ hr [id number] IV 06/13/17 16:45 06/21/17 08:28 (NS Flush) UNSCH PRN IVF 06/14/17 18:00 (Heparin Inj) UNSCH PRN IV FLUSH 06/14/17 18:00 Fluconazole/ Sodium Chloride 200 ml @ 100 mls/hr Q24H IV 06/16/17 11:00 06/20/17 10:27 Pharmacy Profile Note 0 ml @ 0 mls/hr UNSCH OTHER 06/16/17 10:15 (Coumadin) 4 mg DAILY@1600 PO 06/16/17 16:00 06/20/17 15:41 (D50w (Syr) Inj) 50 ml UNSCH PRN IV 06/17/17 19:30 06/21/17 07:07 A/P Assessment and Plan Septic shock/ Staph Epi/coag negative staph bacteremia Status post IV fluids resuscitation, Midodrine, stress dose steroids given the patient refusing them at this time. ECHO- EF 55-60%, no RWMA, trace TR, PAP 36mmHG. Blood cultures grew yeast and staph epi. S/p permacath exchange. - Status post stress steroids. Patient refused most doses. - Continue vanco and Diflucan per ID, PermCath line likely source. History of Asthma Chronic basilar interstitial opacities. CXR 06/10 : Chronic interstitial changes, no acute infiltrate. Breathing comfortably. - continue Oxygen and keep Oxygen saturation over 92%. - Continue bronchodilator, mucolytics and incentive spirometry. ESRD On Hemodialysis Tuesday/Tuesday/Tuesday. 06/14 PermCath exchange by IR. - Nephrology specialist following. Fistulogram has been rescheduled as outpatient. SLE/ DVT VICKI negative in the past. DVT on chronic Warfarin, but INR subtherapeutic. - continue Coumadin and Heparin drip. Hypoglycemia Possibly s/t sepsis and end-stage renal disease. Workup in progress. Pancreatic ultrasound negative for insulinoma. Still requiring amps of D50. - treat sepsis as above. - D10 increased to 100 ml per hour. - check insulin, proinsulin, c peptide, B-HBA, abdominal US to rule out insulinoma. - regular diet and Nephro added. - Will need to follow up with an vending machine assembler. - LFTs ordered by nephrology. Peripheral vascular disease Status post bilateral BKA's. - PT/OT. PROPH: Heparin drip will provide DVT prophylaxis. Protonix 40 mg by mouth daily for stress ulcer prophylaxis and history of GERD Discharge Planning Awaiting improvement in stabilization of blood sugar Amador Oneill DO Jun 21, 2017 09:57
[2017-06-21 10:18] LABS: HEMATOCRIT 42.7 % (39.0-51.0); MEAN CELL VOLUME 100.8 FL (80.0-100.0); MEAN CORPUSCULAR HEMOGLOBIN 32.1 PG (27.0-34.0); MEAN CORPUSCULAR HGB CONC 31.9 % (32.0-36.0); PLATELET COUNT 98 TH/MM3 (150-450); RED BLOOD COUNT 4.24 MIL/MM3 (4.50-5.90); RED CELL DISTRIBUTION WIDTH 19.6 % (11.6-17.2); WHITE BLOOD COUNT 10.2 TH/MM3 (4.0-11.0)
[2017-06-21 10:25] LABS: APTT (PATIENT) 76.7 SEC (24.3-30.1); REVIEW FLAG FINAL
[2017-06-21 10:28] LABS: INTERNATIONAL NORMALIZED RATIO 2.2 RATIO; PROTHROMBIN TIME - PATIENT 24.8 SEC (9.8-11.6)
[2017-06-21 10:39] LABS: BICARBONATE 28.3 MEQ/L (21.0-32.0); INDIRECT BILIRUBIN 0.4 MG/DL (0.0-0.8); MAGNESIUM 2.2 MG/DL (1.5-2.5); POTASSIUM 3.7 MEQ/L (3.5-5.1); TOTAL BILIRUBIN ADULT 0.6 MG/DL (0.2-1.0)
--- NOTE | 2017-06-21 11:30 | HHI.IDPN ---
Subjective Subjective Remarks Patient is a 46-year-old male, with known ESRD, on hemodialysis Tuesday and Tuesday, presented to the hospital complaining of low blood pressure, and fever. Patient states his blood pressure is generally on the low side, but usually runs around 80-90 systolic. He had his usual hemodialysis on the day of admission, and his vitals were stable at that time. When he went home however, he felt like he had a fever, and he's check his blood pressure and it was in the 60s. He denies any respiratory complaint. He denies any shortness of breath. No abdominal pain, nausea vomiting or diarrhea. He has no significant urine output. He has not been around anyone sick. In the emergency room he had a blood pressure in the 60s, and he was febrile up to 103. His WBC is normal. Sedimentation rate 1. Lactic acid 4.2, and it's down to 1.1 today. Her temperatures are better. He is on pressors currently. He offers no specific complaint at the time my exam. Patient has known central venous occlusion, and venous access for his hemodialysis has been a problem. He currently has a left groin permacath, and it was last exchange last May 16. He has a right upper extremity AV fistula that was placed in February, and in March, he was admitted and treated for a wound infection in his AV fistula incision that grew out enterococcus. His blood cultures were negative at that time. He was treated aggressively with IV antibiotic and he completed treatment back in April. The wound has completely healed. His AV fistula has recently been access the last 2 times he had hemodialysis. Only one of the limb was access, and the groin permacath was also used. Notes reviewed D/W RN No fever Still having problems with low blood sugars Asymptomatic hypoglycemia Had HD yesterday, got dose of vanco BC with Edita parapsilosis from 06/14 Last (+) BC withn Staph epi 06/14 Permacath exchange done 06/14 Antibiotics Vancomycin fluconazole Lines L groin permacath Past Medical History ESRD on hemodialysis SLE E CAD Hypertension Severe PVD History of DVT Anemia Hyperparathyroidism of renal origin Previous dialysis catheter line infection Known central venous occlusion Past Surgical History Bilateral BKA 2 fingers amputated Previous dialysis access in his left upper extremity Recent AV fistula creation in the right upper extremity Previous revascularization procedures for PVD Allergies: Coded Allergies: iodine (Unverified Allergy, Severe, blisters, 06/10/17) morphine (Unverified Allergy, Severe, Itching, 06/10/17) potassium iodide (Unverified Allergy, Severe, blisters, 06/10/17) povidone-iodine (Unverified Allergy, Severe, blisters, 06/10/17) sodium iodide (Unverified Allergy, Severe, blisters, 06/10/17) sodium iodide (Unverified Allergy, Severe, blisters, 06/10/17) Objective . Vital Signs Date Time Temp Pulse Resp B/P (MAP) Pulse Ox O2 Delivery O2 Flow Rate FiO2 06/21/17 10:00 66 06/21/17 08:00 66 06/21/17 08:00 98.4 56 14 135/70 (91) 06/21/17 06:00 51 06/21/17 04:00 97.5 48 18 125/72 (89) 06/21/17 04:00 48 06/21/17 02:00 52 06/21/17 00:00 97.2 49 25 126/84 (98) 06/21/17 00:00 49 06/20/17 22:00 47 06/20/17 20:00 98.3 51 18 123/69 (87) 06/20/17 20:00 51 06/20/17 18:00 51 06/20/17 16:00 51 06/20/17 16:00 98.1 51 13 126/67 (86) 06/20/17 14:00 61 06/20/17 12:00 98.4 68 14 116/67 (83) 06/20/17 12:00 68 06/21/17 06/21/17 06/22/17 15:00 23:00 07:00 Intake Total 250 ml Balance 250 ml IV Total 250 ml . Laboratory Tests Test 06/19/17 17:15 06/21/17 09:25 White Blood Count 9.0 TH/MM3 10.2 TH/MM3 Red Blood Count 4.43 MIL/MM3 4.24 MIL/MM3 Hemoglobin 14.4 GM/DL 13.6 GM/DL Hematocrit 44.4 % 42.7 % Mean Corpuscular Volume 100.3 FL 100.8 FL Mean Corpuscular Hemoglobin 32.6 PG 32.1 PG Mean Corpuscular Hemoglobin Concent 32.5 % 31.9 % Red Cell Distribution Width 20.4 % 19.6 % Platelet Count 95 TH/MM3 98 TH/MM3 Mean Platelet Volume 9.3 FL 8.8 FL Laboratory Tests Test 06/20/17 10:30 06/21/17 09:25 Blood Urea Nitrogen 43 MG/DL Creatinine 8.07 MG/DL Random Glucose 40 MG/DL Total Protein 8.2 GM/DL Albumin 4.0 GM/DL Calcium Level 8.7 MG/DL Magnesium Level 2.2 MG/DL Alkaline Phosphatase 62 U/L Aspartate Amino Transf (AST/SGOT) 13 U/L Alanine Aminotransferase (ALT/SGPT) 16 U/L Total Bilirubin 0.6 MG/DL Direct Bilirubin 0.2 MG/DL Sodium Level 139 MEQ/L Potassium Level 3.7 MEQ/L Chloride Level 101 MEQ/L Carbon Dioxide Level 28.3 MEQ/L Anion Gap 10 MEQ/L Estimat Glomerular Filtration Rate 9 ML/MIN Indirect Bilirubin 0.4 MG/DL Imaging Pancreas Ultrasound 06/19/17 0000 Signed Impressions: Service Date/Time: Monday, June 19, 2017 13:34 - CONCLUSION: 1. Gallbladder sludge with mild wall thickening 2. No evidence of suspicious mass 3. Hyperechoic right kidney 4. 2 right renal cysts. Jatin Fontanez MD Catheter Placement X-Ray 06/14/17 0000 Signed Impressions: Service Date/Time: Wednesday, June 14, 2017 15:54 - CONCLUSION: Uncomplicated fluoroscopic-guided central venous permacath exchange as above. Jeff Batista MD Chest X-Ray 06/10/17 1436 Signed Impressions: Service Date/Time: Saturday, June 10, 2017 15:36 - CONCLUSION: 1. Stable chronic interstitial changes. 2. No acute infiltrate. Narendra Barreto Jr., MD Physical Exam GENERAL: awake and alert, not in respiratory distress. SKIN: Warm and dry. No generalized rash, no ecchymoses and no evidence of embolic lesions. HEAD: Atraumatic. Normocephalic. No temporal wasting, or tenderness. EYES: [place] conjunctiva. No petechia or hemorrhage. Extraocular movements full and intact. No scleral icterus. No injection or drainage. EARS, NOSE AND THROAT: Nose without bleeding or purulent nasal discharge. No sinus tenderness. Mucous membranes pink and moist. No oral lesions noted. No exudate. No oral thrush. CARDIOVASCULAR: Regular rate and rhythm. No murmurs, rubs or gallops heard RESPIRATORY: Clear to auscultation. Breath sounds equal bilaterally. No rales , wheezing or rhonchi ABDOMEN: Soft, nondistended, with diffuse abdominal tenderness. Bowel sounds present and normoactive. No guarding. No rebound. No organomegaly. EXTREMITIES: No clubbing, cyanosis, or edema. Has jacqueline BKA, well healed stump. L thigh permacath site with no evidence of infection NEUROLOGICAL: awake and alert Grossly non-focal PSYCHIATRIC: Normal affect, calm and cooperative. 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 better Episodes of hypoglycemia, etiology? RECOMMENDATION Follow C/S Continue Vanco - will give with each HD - to cover (+) BC with Staph epi - give until July 11 Continue Diflucan - plan till Jul 11 Monitor progress D/W Louann Hart MD Jun 21, 2017 11:30
--- NOTE | 2017-06-21 12:43 | HHI.NPPN ---
Subjective History of Present Illness This patient is a 46-year-old male with a history of end-stage renal disease, SLE, hypertension, peripheral vascular disease as well as secondary hyperparathyroidism of renal disease. Unfortunately the patient has had multiple dialysis accesses including dialysis shunts and dialysis catheters in the past complicated by access failure as well as infection. Patient now has very limited options for dialysis access. Presently we are relying on a left femoral dialysis line for access. Fortunately vessel surgery was able to create a left arm AV dialysis fistula back in February. It has matured somewhat but not ideally and presently we are using one needle in the fistula while port at the dialysis line has been used for dialysis access. We have not yet tried to use 2 needles in the AV dialysis shunt. Patient presents now with a history of chills, fever postdialysis yesterday and was noted to be hypotensive on presentation with blood pressures in the 60s. Patient's blood pressure has since improved however. Blood cultures negative 24 hours at time of consultation. Patient did receive cefepime and vancomycin since admission. Infectious disease on board.. Interval History Pt reports feeling OK. Some dizziness and nausea when glucose drops. (Gladis Cole) Review of Systems Gastrointestinal Gastrointestinal: Nausea & Vomiting (Gladis Cole) Objective Data Data 06/21/17 06/22/17 19:00 07:00 Intake Total 250 ml Balance 250 ml IV Total 250 ml Vital Signs Date Time Temp Pulse Resp B/P (MAP) Pulse Ox O2 Delivery O2 Flow Rate FiO2 06/21/17 10:00 66 06/21/17 08:00 66 06/21/17 08:00 98.4 56 14 135/70 (91) 06/21/17 06:00 51 06/21/17 04:00 97.5 48 18 125/72 (89) 06/21/17 04:00 48 06/21/17 02:00 52 06/21/17 00:00 97.2 49 25 126/84 (98) 06/21/17 00:00 49 06/20/17 22:00 47 06/20/17 20:00 98.3 51 18 123/69 (87) 06/20/17 20:00 51 06/20/17 18:00 51 06/20/17 16:00 51 06/20/17 16:00 98.1 51 13 126/67 (86) 06/20/17 14:00 61 (Gladis Cole) -: 06/21/17 0925 06/21/17 0925 Imaging Last Impressions Pancreas Ultrasound 06/19/17 0000 Signed Impressions: Service Date/Time: Monday, June 19, 2017 13:34 - CONCLUSION: 1. Gallbladder sludge with mild wall thickening 2. No evidence of suspicious mass 3. Hyperechoic right kidney 4. 2 right renal cysts. Jatin Fontanez MD Catheter Placement X-Ray 06/14/17 0000 Signed Impressions: Service Date/Time: Wednesday, June 14, 2017 15:54 - CONCLUSION: Uncomplicated fluoroscopic-guided central venous permacath exchange as above. Jeff Batista MD Chest X-Ray 06/10/17 1436 Signed Impressions: Service Date/Time: Saturday, June 10, 2017 15:36 - CONCLUSION: 1. Stable chronic interstitial changes. 2. No acute infiltrate. Narendra Barreto Jr., MD Medication Review Current Medications Medications (Trade) Dose Ordered Sig/Nohelia Route Start Time Stop Time Status Last Admin Phenylephrine HCl 80 mg/Dextrose 500 ml @ 15 mls/hr TITRATE PRN IV 06/10/17 20:00 06/10/17 23:28 (Brethine Inj) 1 mg UNSCH PRN SQ 06/10/17 18:30 (NS Flush) 2 ml UNSCH PRN IV FLUSH 06/10/17 18:30 (NS Flush) 2 ml BID IV FLUSH 06/10/17 21:00 06/20/17 09:00 (Zofran Inj) 4 mg Q6H PRN IV 06/10/17 18:30 06/14/17 15:19 (Albuterol Neb) 2.5 mg Q2HR NEB PRN INH 06/10/17 18:30 Miscellaneous Information 1 Q361D XX 06/10/17 18:30 (Chlorhexidine 2% Cloth) Taper DAILY@04 TOP 06/11/17 04:00 06/07/18 03:59 06/18/17 04:00 (Chlorhexidine 2% Cloth) 3 pack UNSCH PRN TOP 06/10/17 18:30 (Angelika-Colace) 1 tab BID PO 06/10/17 21:00 06/20/17 20:37 (Milk Of Magnesia Liq) 30 ml Q12H PRN PO 06/10/17 18:30 (Senokot) 17.2 mg Q12H PRN PO 06/10/17 18:30 (Dulcolax Supp) 10 mg DAILY PRN RECTAL 06/10/17 18:30 (Lactulose Liq) 30 ml DAILY PRN PO 06/10/17 18:30 (Proamatine) 10 mg Q8H PO 06/10/17 20:00 06/17/17 20:47 (Protonix) 40 mg DAILY PO 06/10/17 19:30 06/19/17 12:35 Heparin Sodium/ Dextrose 250 ml @ 13.5 mls/hr TITRATE PRN IV 06/10/17 20:00 06/21/17 07:09 (Glucagon Inj) 1 mg UNSCH PRN OTHER 06/11/17 10:00 (NovoLIN R SUPPLEMENTAL SCALE) 1 Q4H SQ 06/11/17 15:00 Sodium Chloride 1,000 ml @ 0 mls/hr Q0M PRN OTHER 06/12/17 15:19 06/20/17 18:59 (Heparin Inj) 8,000 units UNSCH PRN IVF 06/12/17 15:30 Sodium Chloride 1,000 ml @ 200 mls/hr Q5H PRN IV 06/12/17 15:19 Sodium Chloride 1,000 ml @ 0 mls/hr Q0M PRN OTHER 06/12/17 15:19 (Mannitol Inj) 12.5 gm UNSCH PRN IV 06/12/17 15:30 06/19/17 11:40 (Albumin 25% Inj) 25 gm UNSCH PRN IV 06/12/17 15:30 06/20/17 18:59 (NS Flush) 5 ml UNSCH PRN IV FLUSH 06/12/17 15:30 (Heparin Inj) UNSCH PRN .XX 06/12/17 15:30 06/20/17 18:59 (Gentamicin (Dialysis) Inj) 20 mg UNSCH PRN IV 06/12/17 15:30 06/20/17 18:59 (Zofran Inj) 4 mg UNSCH PRN IV 06/12/17 15:30 06/15/17 16:09 (Tylenol) 650 mg UNSCH PRN PO 06/12/17 15:30 (Benadryl) 25 mg UNSCH PRN PO 06/12/17 15:30 (Nitrostat Sl) 0.4 mg UNSCH PRN SL 06/12/17 15:30 (Catapres) 0.1 mg UNSCH PRN PO 06/12/17 15:30 (Gelfoam 12 Mm/7 Mm Top) 1 foam UNSCH PRN TOP 06/12/17 15:30 Vancomycin HCl 1000 mg/Sodium Chloride 250 ml @ 250 mls/hr WITH DIALYSIS IV 06/13/17 13:45 06/20/17 11:05 Sodium Chloride 154 meq/Dextrose 1,038.5 ml @ 100 mls/ hr [id number] IV 06/13/17 16:45 06/21/17 08:28 (NS Flush) UNSCH PRN IVF 06/14/17 18:00 (Heparin Inj) UNSCH PRN IV FLUSH 06/14/17 18:00 Fluconazole/ Sodium Chloride 200 ml @ 100 mls/hr Q24H IV 06/16/17 11:00 06/20/17 10:27 Pharmacy Profile Note 0 ml @ 0 mls/hr UNSCH OTHER 06/16/17 10:15 (D50w (Syr) Inj) 50 ml UNSCH PRN IV 06/17/17 19:30 06/21/17 11:29 (Coumadin) 3 mg DAILY@1600 PO 06/21/17 16:00 (Gladis Cole) Physical Exam General Appearance: Well Developed, Well Nourished, No Acute Distress, Comfortable (Gladis Cole) Eyes Eye Exam: Sclera White (Gladis Cole) Pulmonary Resp Exam: Clear Bilaterally, Breath Sounds Equal (Gladis Cole) Cardiology CV Exam: Regular, Normal Sinus Rhythm, Good Perfusion (Gladis Cole) Gastrointestinal/Abdomen GI Exam: Soft, Non-Tender (Gladis Cole) Integumentary Skin Exam: Clear, Warm, Normal Turgor (Gladis Cole) Extremeties Extremities Exam: Trace Edema (Gladis Cole) Neurologic Neuro Exam: Alert, Awake (Gladis Cole) Psychiatric Psych Exam: Appropriate Responses (Gladis Cole) Assessment/Plan Discussed Condition With: Patient Problem List: (1) ESRD (end stage renal disease) on dialysis ICD Codes: N18.6 - End stage renal disease; Z99.2 - Dependence on renal dialysis Status: Chronic Plan: Fistulogram has been rescheduled as an outpatient. PermCath however appears to be working well. BCx were positive for Edita parapsilosis. Infectious disease following. Continue antibiotics as per infectious disease. Patient had questions regarding possible options for dialysis access in the future given limited options currently available. He was advised the best hope is that this fistula in his right upper extremity is able to be used. If the fistula does not lynn out will discuss with vascular surgery if it could be converted to a [place]-Carlos graft. Eventually the femoral catheter will become nonfunctional and if we cannot create an AV dialysis shunt one option might be a transhepatic dialysis catheter. I also discussed with the patient the option of peritoneal dialysis. However the patient has a history of compliance issues and if he does go on peritoneal dialysis he may have institutionalized as I do not believe he will be able to perform it himself competently. Noted discharge cleared by infectious disease. Medication should be adjusted for the patient's end-stage renal disease when indicated. Avoid gadolinium. (2) Sepsis ICD Codes: A41.9 - Sepsis, unspecified organism Status: Acute Plan: Improving. Still on abx ads per ID Has been cleared for discharge by ID (3) Complications, dialysis, catheter, mechanical ICD Codes: T82.49XA - Other complication of vascular dialysis catheter, initial encounter Status: Acute Plan: Await fistulogram results as outpatient and interim continue to use femoral catheter Has severe PVD complicating access. (4) Abdominal pain ICD Codes: R10.9 - Unspecified abdominal pain Status: Resolved Plan: Resolved (5) Lupus (systemic lupus erythematosus) ICD Codes: M32.9 - Systemic lupus erythematosus, unspecified (6) Deep vein thrombosis (DVT) ICD Codes: I82.409 - Acute embolism and thrombosis of unspecified deep veins of unspecified lower extremity Permanent Comment: The patient has been on anticoagulation therapy in the past however he is very poorly compliant in this regard . Last Edited By: Raul Merlos on Jun 11, 2017 13:34 (7) Hypoglycemia ICD Codes: E16.2 - Hypoglycemia, unspecified Plan: Work up underway by primary team. (Gladis Cole) Plan The exam, history, and the medical decision-making described in the above note were completed with the assistance of the PA-C. I reviewed and agree with the findings presented. I attest that I had a thol-yd-[id number] encounter with the patient on the same day, and personally performed and documented my assessment and findings in the medical record. (Clarence Merlos MD) Gladis Cole Jun 21, 2017 12:43 Clarence Merlos MD Jul 13, 2017 16:46
[2017-06-21] MEDS: FLUCONAZOLE 400 MG PREMIX BAG 200 ML IV SCH (13:49)
[2017-06-21] MEDS: WARFARIN SOD 3 MG TAB PO SCH (16:58)
[2017-06-21 19:32] LABS: APTT (PATIENT) 57.1 SEC (24.3-30.1)
[2017-06-22] VITALS (12 sets, daily range): BP systolic 99–135; BP diastolic 59–70; PULSE 50–78; RESP 9–18; TEMP 98–98.6; O2SAT 79–98
[2017-06-22] MEDS: INSULIN NovoLIN REGULAR SUPPLEMENTAL SCALE SQ SCH ×6 (03:00→23:00)
[2017-06-22] MEDS: MIDODRINE 5 MG TAB PO SCH ×3 (04:00→20:00)
[2017-06-22] MEDS: CHLORHEXIDINE GLUCONATE 2 % 1 PACK (2 CLOTHS) TOP SCH (04:00)
[2017-06-22] MEDS: SODIUM CHLORIDE 23.4% INJ 154 MEQ in DEXTROSE 10% INJ 1,000 ML IV SCH ×2 (07:14→21:26)
[2017-06-22 07:32] LABS: HEMATOCRIT 41.9 % (39.0-51.0); MEAN CELL VOLUME 99.4 FL (80.0-100.0); MEAN CORPUSCULAR HEMOGLOBIN 31.9 PG (27.0-34.0); MEAN CORPUSCULAR HGB CONC 32.1 % (32.0-36.0); PLATELET COUNT 107 TH/MM3 (150-450); RED BLOOD COUNT 4.21 MIL/MM3 (4.50-5.90); RED CELL DISTRIBUTION WIDTH 19.7 % (11.6-17.2); REVIEW FLAG FINAL; WHITE BLOOD COUNT 6.9 TH/MM3 (4.0-11.0)
[2017-06-22 07:39] LABS: INTERNATIONAL NORMALIZED RATIO 2.3 RATIO; PROTHROMBIN TIME - PATIENT 26.5 SEC (9.8-11.6)
[2017-06-22 07:58] LABS: ALKALINE PHOSPHATASE 60 U/L (45-117); ALT (GPT) 18 U/L (12-78); ANION GAP 13 MEQ/L (5-15); AST (GOT) 10 U/L (15-37); BICARBONATE 25.3 MEQ/L (21.0-32.0); BLOOD UREA NITROGEN 54 MG/DL (7-18); CHLORIDE 100 MEQ/L (98-107); GLOMERULAR FILTRATION RATE 8 ML/MIN (>89); POTASSIUM 3.4 MEQ/L (3.5-5.1); SODIUM (NA) 138 MEQ/L (136-145); TOTAL BILIRUBIN ADULT 0.5 MG/DL (0.2-1.0)
[2017-06-22] MEDS: ALBUMIN HUMAN 25% 25 GM/100 ML BAGP IV PRN ×2 (08:50→08:52)
[2017-06-22] MEDS: VANCOMYCIN INJ 1,000 MG in SODIUM CHLOR 0.9% 250 ML INJ 250 ML IV SCH (08:51)
[2017-06-22] MEDS: GENTAMICIN SULFATE (DIALYSIS USE ONLY) 20 MG/2 ML VIAL IV PRN (08:51)
[2017-06-22] MEDS: HEPARIN SODIUM - IV 10,000 UNITS/10 ML VIAL PRN (08:51)
[2017-06-22] MEDS: PANTOPRAZOLE SOD 40 MG DELAYED RELEASE TAB PO SCH (09:00)
[2017-06-22] MEDS: SODIUM CHLORIDE 0.9% FLUSH 10 ML FLUSH IV FLUSH SCH ×2 (09:00→21:00)
[2017-06-22] MEDS: DOCUSATE SODIUM 50 MG/SENNA 8.6 MG TAB PO SCH ×2 (09:00→21:00)
[2017-06-22] MEDS: DEXTROSE 50% IN WATER 50 ML SYRINGE IV PRN (09:08)
--- NOTE | 2017-06-22 10:40 | HHI.IDPN ---
Subjective Subjective Remarks Patient is a 46-year-old male, with known ESRD, on hemodialysis Tuesday and Tuesday, presented to the hospital complaining of low blood pressure, and fever. Patient states his blood pressure is generally on the low side, but usually runs around 80-90 systolic. He had his usual hemodialysis on the day of admission, and his vitals were stable at that time. When he went home however, he felt like he had a fever, and he's check his blood pressure and it was in the 60s. He denies any respiratory complaint. He denies any shortness of breath. No abdominal pain, nausea vomiting or diarrhea. He has no significant urine output. He has not been around anyone sick. In the emergency room he had a blood pressure in the 60s, and he was febrile up to 103. His WBC is normal. Sedimentation rate 1. Lactic acid 4.2, and it's down to 1.1 today. Her temperatures are better. He is on pressors currently. He offers no specific complaint at the time my exam. Patient has known central venous occlusion, and venous access for his hemodialysis has been a problem. He currently has a left groin permacath, and it was last exchange last May 16. He has a right upper extremity AV fistula that was placed in February, and in March, he was admitted and treated for a wound infection in his AV fistula incision that grew out enterococcus. His blood cultures were negative at that time. He was treated aggressively with IV antibiotic and he completed treatment back in April. The wound has completely healed. His AV fistula has recently been access the last 2 times he had hemodialysis. Only one of the limb was access, and the groin permacath was also used. Notes reviewed No fever Getting HD Still having problems with low blood sugars Asymptomatic hypoglycemia No new (+) BC BC with Edita parapsilosis from 06/14 Last (+) BC withn Staph epi 06/14 Permacath exchange done 06/14 Antibiotics Vancomycin fluconazole Lines L groin permacath Past Medical History ESRD on hemodialysis SLE E CAD Hypertension Severe PVD History of DVT Anemia Hyperparathyroidism of renal origin Previous dialysis catheter line infection Known central venous occlusion Past Surgical History Bilateral BKA 2 fingers amputated Previous dialysis access in his left upper extremity Recent AV fistula creation in the right upper extremity Previous revascularization procedures for PVD Allergies: Coded Allergies: iodine (Unverified Allergy, Severe, blisters, 06/10/17) morphine (Unverified Allergy, Severe, Itching, 06/10/17) potassium iodide (Unverified Allergy, Severe, blisters, 06/10/17) povidone-iodine (Unverified Allergy, Severe, blisters, 06/10/17) sodium iodide (Unverified Allergy, Severe, blisters, 06/10/17) sodium iodide (Unverified Allergy, Severe, blisters, 06/10/17) Objective . Vital Signs Date Time Temp Pulse Resp B/P (MAP) Pulse Ox O2 Delivery O2 Flow Rate FiO2 06/22/17 06:00 68 06/22/17 04:00 72 06/22/17 04:00 98.2 72 17 118/67 (84) 95 06/22/17 02:00 66 06/22/17 00:00 64 06/22/17 00:00 98.0 64 18 117/67 (84) 94 06/21/17 22:00 77 06/21/17 20:00 73 06/21/17 20:00 97.9 82 16 109/68 (82) 92 06/21/17 18:00 66 06/21/17 16:00 98.6 63 12 109/60 (76) 06/21/17 16:00 66 06/21/17 14:00 66 06/21/17 12:00 66 06/21/17 12:00 98.6 71 18 108/70 (83) 06/22/17 06/22/17 06/23/17 15:00 23:00 07:00 Intake Total 200 ml Balance 200 ml IV Total 200 ml . Laboratory Tests Test 06/21/17 09:25 06/22/17 05:54 White Blood Count 10.2 TH/MM3 6.9 TH/MM3 Red Blood Count 4.24 MIL/MM3 4.21 MIL/MM3 Hemoglobin 13.6 GM/DL 13.4 GM/DL Hematocrit 42.7 % 41.9 % Mean Corpuscular Volume 100.8 FL 99.4 FL Mean Corpuscular Hemoglobin 32.1 PG 31.9 PG Mean Corpuscular Hemoglobin Concent 31.9 % 32.1 % Red Cell Distribution Width 19.6 % 19.7 % Platelet Count 98 TH/MM3 107 TH/MM3 Mean Platelet Volume 8.8 FL 8.9 FL Laboratory Tests Test 06/21/17 09:25 06/22/17 05:54 Blood Urea Nitrogen 43 MG/DL 54 MG/DL Creatinine 8.07 MG/DL 9.09 MG/DL Random Glucose 40 MG/DL 60 MG/DL Total Protein 8.2 GM/DL 7.7 GM/DL Albumin 4.0 GM/DL 3.9 GM/DL Calcium Level 8.7 MG/DL 8.2 MG/DL Magnesium Level 2.2 MG/DL Alkaline Phosphatase 62 U/L 60 U/L Aspartate Amino Transf (AST/SGOT) 13 U/L 10 U/L Alanine Aminotransferase (ALT/SGPT) 16 U/L 18 U/L Total Bilirubin 0.6 MG/DL 0.5 MG/DL Direct Bilirubin 0.2 MG/DL Sodium Level 139 MEQ/L 138 MEQ/L Potassium Level 3.7 MEQ/L 3.4 MEQ/L Chloride Level 101 MEQ/L 100 MEQ/L Carbon Dioxide Level 28.3 MEQ/L 25.3 MEQ/L Anion Gap 10 MEQ/L 13 MEQ/L Estimat Glomerular Filtration Rate 9 ML/MIN 8 ML/MIN Indirect Bilirubin 0.4 MG/DL Random Cortisol 12.9 MCG/DL Imaging Pancreas Ultrasound 06/19/17 0000 Signed Impressions: Service Date/Time: Monday, June 19, 2017 13:34 - CONCLUSION: 1. Gallbladder sludge with mild wall thickening 2. No evidence of suspicious mass 3. Hyperechoic right kidney 4. 2 right renal cysts. Jatin Fontanez MD Catheter Placement X-Ray 06/14/17 0000 Signed Impressions: Service Date/Time: Wednesday, June 14, 2017 15:54 - CONCLUSION: Uncomplicated fluoroscopic-guided central venous permacath exchange as above. Jeff Batista MD Chest X-Ray 06/10/17 1436 Signed Impressions: Service Date/Time: Saturday, June 10, 2017 15:36 - CONCLUSION: 1. Stable chronic interstitial changes. 2. No acute infiltrate. Narendra Barreto Jr., MD Physical Exam GENERAL: awake and alert, not in respiratory distress. SKIN: Warm and dry. No generalized rash, no ecchymoses and no evidence of embolic lesions. HEAD: Atraumatic. Normocephalic. No temporal wasting, or tenderness. EYES: [place] conjunctiva. No petechia or hemorrhage. Extraocular movements full and intact. No scleral icterus. No injection or drainage. EARS, NOSE AND THROAT: Nose without bleeding or purulent nasal discharge. No sinus tenderness. Mucous membranes pink and moist. No oral lesions noted. No exudate. No oral thrush. CARDIOVASCULAR: Regular rate and rhythm. No murmurs, rubs or gallops heard RESPIRATORY: Clear to auscultation. Breath sounds equal bilaterally. No rales , wheezing or rhonchi ABDOMEN: Soft, nondistended, not tender. Bowel sounds present and normoactive. No guarding. No rebound. No organomegaly. EXTREMITIES: No clubbing, cyanosis, or edema. Has jacqueline BKA, well healed stump. L thigh permacath site with no evidence of infection NEUROLOGICAL: awake and alert Grossly non-focal PSYCHIATRIC: Normal affect, calm and cooperative. 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 better Episodes of hypoglycemia, etiology? RECOMMENDATION Repeat 2 BC today Continue Vanco - will give with each HD - to cover (+) BC with Staph epi - give until July 11 Continue Diflucan - plan till Jul 11 Monitor progress D/W Louann Hart MD Jun 22, 2017 10:39
[2017-06-22] MEDS ORDERED: POLYETHYLENE GLYCOL 17 GM PKG PO ONE (12:30)
--- NOTE | 2017-06-22 12:38 | HHI.PR ---
Subjective Remarks The patient was happy to hear he was coming off the heparin drip. He requested something for bowel movements. Discussed with nursing and nephrology. Objective Vitals Vital Signs Date Time Temp Pulse Resp B/P (MAP) Pulse Ox O2 Delivery O2 Flow Rate FiO2 06/22/17 12:00 68 06/22/17 12:00 98.5 72 9 99/59 (72) 06/22/17 10:00 68 06/22/17 08:00 68 06/22/17 08:00 98.6 50 10 135/70 (91) 79 06/22/17 06:00 68 06/22/17 04:00 72 06/22/17 04:00 98.2 72 17 118/67 (84) 95 06/22/17 02:00 66 06/22/17 00:00 64 06/22/17 00:00 98.0 64 18 117/67 (84) 94 06/21/17 22:00 77 06/21/17 20:00 73 06/21/17 20:00 97.9 82 16 109/68 (82) 92 06/21/17 18:00 66 06/21/17 16:00 98.6 63 12 109/60 (76) 06/21/17 16:00 66 06/21/17 14:00 66 I/O 06/21/17 06/21/17 06/21/17 06/22/17 06/22/17 06/22/17 07:00 15:00 23:00 07:00 15:00 23:00 Intake Total 240 ml 250 ml 3083 ml 450 ml Output Total 0 ml 0 ml 3500 ml Balance 240 ml 250 ml 3083 ml -3050 ml Intake Oral 240 ml 560 ml IV Total 250 ml 2523 ml 450 ml Output Urine Total 0 ml 0 ml Hemodialysis 3500 ml Result Diagram: 06/22/17 0554 06/22/17 0554 Imaging Last Impressions Pancreas Ultrasound 06/19/17 0000 Signed Impressions: Service Date/Time: Monday, June 19, 2017 13:34 - CONCLUSION: 1. Gallbladder sludge with mild wall thickening 2. No evidence of suspicious mass 3. Hyperechoic right kidney 4. 2 right renal cysts. Jatin Fontanez MD Catheter Placement X-Ray 06/14/17 0000 Signed Impressions: Service Date/Time: Wednesday, June 14, 2017 15:54 - CONCLUSION: Uncomplicated fluoroscopic-guided central venous permacath exchange as above. Jeff Batista MD Chest X-Ray 06/10/17 1436 Signed Impressions: Service Date/Time: Saturday, June 10, 2017 15:36 - CONCLUSION: 1. Stable chronic interstitial changes. 2. No acute infiltrate. Narendra Barreto Jr., MD Objective Remarks GENERAL: Well-developed, obese patient in no acute distress. HEAD: Atraumatic. Normocephalic. ENT: No nasal bleeding or discharge. NECK: No JVD, no Lymphadenopathy. CARDIOVASCULAR: Regular rate and rhythm. RESPIRATORY: Clear to auscultation bilateral, no wheezing or crackles. GASTROINTESTINAL: Abdomen soft, non-tender, nondistended. Bowel sounds present MUSCULOSKELETAL: Extremities without clubbing, cyanosis, or edema. Status post bilateral BKA with incisions healed. Right upper extremity AV fistula with palpable pulse. New Left femoral tunnel catheter in place with no obvious drainage, erythema, tenderness. NEUROLOGICAL: Awake and alert. No focal deficits. PSYCH: Mood and affect appropriate. Medications and IVs Current Medications Medications (Trade) Dose Ordered Sig/Nohelia Route Start Time Stop Time Status Last Admin Phenylephrine HCl 80 mg/Dextrose 500 ml @ 15 mls/hr TITRATE PRN IV 06/10/17 20:00 06/10/17 23:28 (Brethine Inj) 1 mg UNSCH PRN SQ 06/10/17 18:30 (NS Flush) 2 ml UNSCH PRN IV FLUSH 06/10/17 18:30 (NS Flush) 2 ml BID IV FLUSH 06/10/17 21:00 06/21/17 21:42 (Zofran Inj) 4 mg Q6H PRN IV 06/10/17 18:30 06/14/17 15:19 (Albuterol Neb) 2.5 mg Q2HR NEB PRN INH 06/10/17 18:30 Miscellaneous Information 1 Q361D XX 06/10/17 18:30 (Chlorhexidine 2% Cloth) Taper DAILY@04 TOP 06/11/17 04:00 06/07/18 03:59 06/22/17 04:00 (Chlorhexidine 2% Cloth) 3 pack UNSCH PRN TOP 06/10/17 18:30 (Angelika-Colace) 1 tab BID PO 06/10/17 21:00 06/21/17 21:42 (Milk Of Magnesia Liq) 30 ml Q12H PRN PO 06/10/17 18:30 (Senokot) 17.2 mg Q12H PRN PO 06/10/17 18:30 (Dulcolax Supp) 10 mg DAILY PRN RECTAL 06/10/17 18:30 (Lactulose Liq) 30 ml DAILY PRN PO 06/10/17 18:30 (Proamatine) 10 mg Q8H PO 06/10/17 20:00 06/17/17 20:47 (Protonix) 40 mg DAILY PO 06/10/17 19:30 06/19/17 12:35 (Glucagon Inj) 1 mg UNSCH PRN OTHER 06/11/17 10:00 (NovoLIN R SUPPLEMENTAL SCALE) 1 Q4H SQ 06/11/17 15:00 Sodium Chloride 1,000 ml @ 0 mls/hr Q0M PRN OTHER 06/12/17 15:19 06/20/17 18:59 (Heparin Inj) 8,000 units UNSCH PRN IVF 06/12/17 15:30 Sodium Chloride 1,000 ml @ 200 mls/hr Q5H PRN IV 06/12/17 15:19 Sodium Chloride 1,000 ml @ 0 mls/hr Q0M PRN OTHER 06/12/17 15:19 (Mannitol Inj) 12.5 gm UNSCH PRN IV 06/12/17 15:30 06/19/17 11:40 (Albumin 25% Inj) 25 gm UNSCH PRN IV 06/12/17 15:30 06/22/17 08:52 (NS Flush) 5 ml UNSCH PRN IV FLUSH 06/12/17 15:30 (Heparin Inj) UNSCH PRN .XX 06/12/17 15:30 06/22/17 08:51 (Gentamicin (Dialysis) Inj) 20 mg UNSCH PRN IV 06/12/17 15:30 06/22/17 08:51 (Zofran Inj) 4 mg UNSCH PRN IV 06/12/17 15:30 06/15/17 16:09 (Tylenol) 650 mg UNSCH PRN PO 06/12/17 15:30 (Benadryl) 25 mg UNSCH PRN PO 06/12/17 15:30 (Nitrostat Sl) 0.4 mg UNSCH PRN SL 06/12/17 15:30 (Catapres) 0.1 mg UNSCH PRN PO 06/12/17 15:30 (Gelfoam 12 Mm/7 Mm Top) 1 foam UNSCH PRN TOP 06/12/17 15:30 Vancomycin HCl 1000 mg/Sodium Chloride 250 ml @ 250 mls/hr WITH DIALYSIS IV 06/13/17 13:45 06/22/17 08:51 Sodium Chloride 154 meq/Dextrose 1,038.5 ml @ 100 mls/ hr [id number] IV 06/13/17 16:45 06/22/17 07:14 (NS Flush) UNSCH PRN IVF 06/14/17 18:00 (Heparin Inj) UNSCH PRN IV FLUSH 06/14/17 18:00 Fluconazole/ Sodium Chloride 200 ml @ 100 mls/hr Q24H IV 06/16/17 11:00 06/21/17 13:49 Pharmacy Profile Note 0 ml @ 0 mls/hr UNSCH OTHER 06/16/17 10:15 (D50w (Syr) Inj) 50 ml UNSCH PRN IV 06/17/17 19:30 06/22/17 09:08 (Coumadin) 3 mg DAILY@1600 PO 06/21/17 16:00 06/21/17 16:58 (SoluCORTEF INJ) 100 mg Q8HR IV PUSH 06/22/17 14:00 A/P Assessment and Plan Septic shock/ Staph Epi/coag negative staph bacteremia/ candidemia Status post IV fluids resuscitation, Midodrine, stress dose steroids given the patient refusing them at this time. ECHO- EF 55-60%, no RWMA, trace TR, PAP 36mmHG. Blood cultures grew yeast and staph epi. S/p permacath exchange. - Status post stress steroids. Patient refused most doses. Will resume 06/22. - Continue vanco and Diflucan per ID, PermCath line likely source. History of Asthma Chronic basilar interstitial opacities. CXR 06/10 : Chronic interstitial changes, no acute infiltrate. Breathing comfortably. - continue Oxygen and keep Oxygen saturation over 92%. - Continue bronchodilator, mucolytics and incentive spirometry. ESRD On Hemodialysis Tuesday/Tuesday/Tuesday. 06/14 PermCath exchange by IR. - Nephrology specialist following. Fistulogram has been rescheduled as outpatient. SLE/ DVT VICKI negative in the past. DVT noted. - continue Coumadin. Therapeutic. Dc heparin drip. Hypoglycemia Possibly s/t sepsis and end-stage renal disease. ? cortisol deficiency. Workup in progress. Pancreatic ultrasound negative for insulinoma. Still requiring amps of D50. - treat sepsis as above. - D10 increased to 100 ml per hour. - check insulin, proinsulin, c peptide, B-HBA. - regular diet and Nephro added. - Will need to follow up with an assistant professor of art. - resume hydrocortisone. Peripheral vascular disease Status post bilateral BKA's. - PT/OT. PROPH: Coumadin Discharge Planning Awaiting improvement in stabilization of blood sugar Amador Oneill DO Jun 22, 2017 12:38
[2017-06-22] MEDS: FLUCONAZOLE 400 MG PREMIX BAG 200 ML IV SCH (13:20)
[2017-06-22] MEDS: HYDROCORTISONE SOD SUCCINATE 100 MG VIAL IV PUSH SCH ×2 (13:20→22:19)
[2017-06-22] MEDS: WARFARIN SOD 3 MG TAB PO SCH (17:29)
--- NOTE | 2017-06-22 17:37 | HHI.NPPN ---
Subjective History of Present Illness This patient is a 46-year-old male with a history of end-stage renal disease, SLE, hypertension, peripheral vascular disease as well as secondary hyperparathyroidism of renal disease. Unfortunately the patient has had multiple dialysis accesses including dialysis shunts and dialysis catheters in the past complicated by access failure as well as infection. Patient now has very limited options for dialysis access. Presently we are relying on a left femoral dialysis line for access. Fortunately vessel surgery was able to create a left arm AV dialysis fistula back in February. It has matured somewhat but not ideally and presently we are using one needle in the fistula while port at the dialysis line has been used for dialysis access. We have not yet tried to use 2 needles in the AV dialysis shunt. Patient presents now with a history of chills, fever postdialysis yesterday and was noted to be hypotensive on presentation with blood pressures in the 60s. Patient's blood pressure has since improved however. Blood cultures negative 24 hours at time of consultation. Patient did receive cefepime and vancomycin since admission. Infectious disease on board.. Interval History Patient with no verbal complaints. Indicating he has a good appetite. Review of Systems Gastrointestinal Gastrointestinal: Nausea & Vomiting Objective Data Data 06/22/17 06/23/17 19:00 07:00 Intake Total 700 ml Output Total 3500 ml Balance -2800 ml IV Total 700 ml Hemodialysis 3500 ml Vital Signs Date Time Temp Pulse Resp B/P (MAP) Pulse Ox O2 Delivery O2 Flow Rate FiO2 06/22/17 16:00 68 06/22/17 14:00 68 06/22/17 12:00 68 06/22/17 12:00 98.5 72 9 99/59 (72) 06/22/17 10:00 68 06/22/17 08:00 68 06/22/17 08:00 98.6 50 10 135/70 (91) 79 06/22/17 06:00 68 06/22/17 04:00 72 06/22/17 04:00 98.2 72 17 118/67 (84) 95 06/22/17 02:00 66 06/22/17 00:00 64 06/22/17 00:00 98.0 64 18 117/67 (84) 94 06/21/17 22:00 77 06/21/17 20:00 73 06/21/17 20:00 97.9 82 16 109/68 (82) 92 06/21/17 18:00 66 -: 06/22/17 0554 06/22/17 0554 Microbiology 06/22/17 Aerobic Blood Culture, Received Pending 06/22/17 Anaerobic Blood Culture, Received Pending 06/22/17 Aerobic Blood Culture, Received Pending 06/22/17 Anaerobic Blood Culture, Received Pending Physical Exam General Appearance: Well Developed, Well Nourished, No Acute Distress, Comfortable Eyes Eye Exam: Sclera White Pulmonary Resp Exam: Clear Bilaterally, Breath Sounds Equal Cardiology CV Exam: Regular, Normal Sinus Rhythm, Good Perfusion Gastrointestinal/Abdomen GI Exam: Soft, Non-Tender Integumentary Skin Exam: Clear, Warm, Normal Turgor Extremeties Extremities Exam: Trace Edema Neurologic Neuro Exam: Alert, Awake Psychiatric Psych Exam: Appropriate Responses Assessment/Plan Discussed Condition With: Patient Problem List: (1) ESRD (end stage renal disease) on dialysis ICD Codes: N18.6 - End stage renal disease; Z99.2 - Dependence on renal dialysis Status: Chronic Plan: Fistulogram has been rescheduled as an outpatient. PermCath however appears to be working well. BCx were previously positive for Edita parapsilosis. Infectious disease following. Continue antibiotics as per infectious disease. Patient status post dialysis today. Noted discharge cleared by infectious disease. Medication should be adjusted for the patient's end-stage renal disease when indicated. Avoid gadolinium. (2) Sepsis ICD Codes: A41.9 - Sepsis, unspecified organism Status: Acute Plan: Improving. Still on abx ads per ID Has been cleared for discharge by ID (3) Complications, dialysis, catheter, mechanical ICD Codes: T82.49XA - Other complication of vascular dialysis catheter, initial encounter Status: Acute Plan: Await fistulogram results as outpatient and interim continue to use femoral catheter Has severe PVD complicating access. (4) Lupus (systemic lupus erythematosus) ICD Codes: M32.9 - Systemic lupus erythematosus, unspecified (5) Deep vein thrombosis (DVT) ICD Codes: I82.409 - Acute embolism and thrombosis of unspecified deep veins of unspecified lower extremity Permanent Comment: The patient has been on anticoagulation therapy in the past however he is very poorly compliant in this regard . Last Edited By: Raul Merlos on Jun 11, 2017 13:34 (6) Hypoglycemia ICD Codes: E16.2 - Hypoglycemia, unspecified Plan: Etiology of hypoglycemia uncertain. Patients with end-stage renal disease are more susceptible to hypoglycemia secondary to prolonged half life of insulin however. Noted steroids have been reinitiated for possible adrenal insufficiency also. Heparin is mentioned as a potential etiology of hypoglycemia however according to the literature I reviewed indicated a very low quality of evidence. Clarence Merlos MD Jun 22, 2017 17:36
[2017-06-23] VITALS (12 sets, daily range): BP systolic 121–153; BP diastolic 64–81; PULSE 53–77; RESP 10–18; TEMP 97.8–98.8; O2SAT 94–95
[2017-06-23] MEDS: INSULIN NovoLIN REGULAR SUPPLEMENTAL SCALE SQ SCH ×6 (03:00→23:00)
[2017-06-23] MEDS: CHLORHEXIDINE GLUCONATE 2 % 1 PACK (2 CLOTHS) TOP SCH (04:00)
[2017-06-23] MEDS: MIDODRINE 5 MG TAB PO SCH ×3 (04:00→16:48)
[2017-06-23] MEDS: SODIUM CHLORIDE 23.4% INJ 154 MEQ in DEXTROSE 10% INJ 1,000 ML IV SCH ×2 (05:15→06:04)
[2017-06-23 06:05] LABS: INTERNATIONAL NORMALIZED RATIO 2.1 RATIO; PROTHROMBIN TIME - PATIENT 24.4 SEC (9.8-11.6)
[2017-06-23] MEDS: HYDROCORTISONE SOD SUCCINATE 100 MG VIAL IV PUSH SCH ×3 (06:05→21:03)
[2017-06-23 06:24] LABS: BICARBONATE 25.9 MEQ/L (21.0-32.0); POTASSIUM 4.4 MEQ/L (3.5-5.1)
[2017-06-23] MEDS: DOCUSATE SODIUM 50 MG/SENNA 8.6 MG TAB PO SCH ×2 (08:40→21:03)
[2017-06-23] MEDS: SODIUM CHLORIDE 0.9% FLUSH 10 ML FLUSH IV FLUSH SCH ×2 (08:41→21:03)
[2017-06-23] MEDS: PANTOPRAZOLE SOD 40 MG DELAYED RELEASE TAB PO SCH (08:41)
[2017-06-23] MEDS: FLUCONAZOLE 400 MG PREMIX BAG 200 ML IV SCH (11:15)
--- NOTE | 2017-06-23 12:46 | HHI.NPPN ---
Subjective History of Present Illness This patient is a 46-year-old male with a history of end-stage renal disease, SLE, hypertension, peripheral vascular disease as well as secondary hyperparathyroidism of renal disease. Unfortunately the patient has had multiple dialysis accesses including dialysis shunts and dialysis catheters in the past complicated by access failure as well as infection. Patient now has very limited options for dialysis access. Presently we are relying on a left femoral dialysis line for access. Fortunately vessel surgery was able to create a left arm AV dialysis fistula back in February. It has matured somewhat but not ideally and presently we are using one needle in the fistula while port at the dialysis line has been used for dialysis access. We have not yet tried to use 2 needles in the AV dialysis shunt. Patient presents now with a history of chills, fever postdialysis yesterday and was noted to be hypotensive on presentation with blood pressures in the 60s. Patient's blood pressure has since improved however. Blood cultures negative 24 hours at time of consultation. Patient did receive cefepime and vancomycin since admission. Infectious disease on board.. Interval History Patient indicating that he was having dyspnea with exertion. No chest pain. Review of Systems Respiratory Lungs: SOB (with exertion) Gastrointestinal Gastrointestinal: Nausea & Vomiting Objective Data Data 06/23/17 06/24/17 19:00 07:00 Intake Total 200 ml Balance 200 ml IV Total 200 ml Vital Signs Date Time Temp Pulse Resp B/P (MAP) Pulse Ox O2 Delivery O2 Flow Rate FiO2 06/23/17 12:00 98.0 68 10 135/69 (91) 06/23/17 12:00 68 06/23/17 10:00 59 06/23/17 08:00 58 06/23/17 08:00 98.5 58 13 145/73 (97) 06/23/17 06:00 60 06/23/17 04:00 58 06/23/17 04:00 98.2 58 16 153/81 (105) 94 06/23/17 02:00 57 06/23/17 00:00 98.3 57 18 138/81 (100) 95 06/23/17 00:00 56 06/22/17 22:00 78 06/22/17 20:00 98.0 74 16 129/67 (87) 96 06/22/17 20:00 74 06/22/17 18:00 68 06/22/17 16:00 68 06/22/17 16:00 98.6 55 14 126/67 (86) 98 06/22/17 14:00 68 -: 06/22/17 0554 06/23/17 0446 Microbiology 06/22/17 Aerobic Blood Culture - Preliminary, Resulted NO GROWTH IN 1 DAY 06/22/17 Anaerobic Blood Culture - Preliminary, Resulted NO GROWTH IN 1 DAY Physical Exam General Appearance: Well Developed, Well Nourished, No Acute Distress, Comfortable Eyes Eye Exam: Sclera White Pulmonary Resp Exam: Clear Bilaterally, Breath Sounds Equal Cardiology CV Exam: Regular, Normal Sinus Rhythm, Good Perfusion Gastrointestinal/Abdomen GI Exam: Soft, Non-Tender Integumentary Skin Exam: Clear, Warm, Normal Turgor Extremeties Extremities Exam: Moderate Edema (3+ involving the hips, presacral area and upper thighs.), Pitting Edema Neurologic Neuro Exam: Alert, Awake Psychiatric Psych Exam: Appropriate Responses Assessment/Plan Discussed Condition With: Patient Problem List: (1) ESRD (end stage renal disease) on dialysis ICD Codes: N18.6 - End stage renal disease; Z99.2 - Dependence on renal dialysis Status: Chronic Plan: Fistulogram has been rescheduled as an outpatient. PermCath however appears to be working well. BCx were previously positive for Edita parapsilosis. Infectious disease following. Fortunately the patient's blood cultures are remaining negative. Patient still has significant edema. Discussed the situation with the dialysis nurses and apparently the patient has been refusing midodrine regularly and patient has not been tolerating ultrafiltration secondary to hypotension. I discussed the situation with the patient and he has agreed to take midodrine prior to dialysis. Midodrine has been ordered prior to each dialysis session and hopefully this will improve tolerance to ultrafiltration Medication should be adjusted for the patient's end-stage renal disease when indicated. Avoid gadolinium. (2) Sepsis ICD Codes: A41.9 - Sepsis, unspecified organism Status: Acute Plan: Improving. Still on abx ads per ID Has been cleared for discharge by ID (3) Complications, dialysis, catheter, mechanical ICD Codes: T82.49XA - Other complication of vascular dialysis catheter, initial encounter Status: Acute Plan: Await fistulogram results as outpatient and interim continue to use femoral catheter Has severe PVD complicating access. (4) Lupus (systemic lupus erythematosus) ICD Codes: M32.9 - Systemic lupus erythematosus, unspecified (5) Deep vein thrombosis (DVT) ICD Codes: I82.409 - Acute embolism and thrombosis of unspecified deep veins of unspecified lower extremity Permanent Comment: The patient has been on anticoagulation therapy in the past however he is very poorly compliant in this regard . Last Edited By: Raul Merlos on Jun 11, 2017 13:34 (6) Hypoglycemia ICD Codes: E16.2 - Hypoglycemia, unspecified Plan: Etiology of hypoglycemia uncertain. Patients with end-stage renal disease are more susceptible to hypoglycemia secondary to prolonged half life of insulin however. Noted steroids have been reinitiated for possible adrenal insufficiency also. Heparin is mentioned as a potential etiology of hypoglycemia however according to the literature I reviewed indicated a very low quality of evidence. Hypoglycemia appears to be improving. Recommend tapering off D10 W as soon as possible to reduce patient's fluid load. Clarence Merlos MD Jun 23, 2017 12:46
--- NOTE | 2017-06-23 15:28 | HHI.PR ---
Subjective Remarks The patient was getting frustrated at remaining in the hospital. He really wants to go home by tomorrow. He says his sugars are better. He was getting dialysis. Objective Vitals Vital Signs Date Time Temp Pulse Resp B/P (MAP) Pulse Ox O2 Delivery O2 Flow Rate FiO2 06/23/17 12:00 98.0 68 10 135/69 (91) 06/23/17 12:00 68 06/23/17 10:00 59 06/23/17 08:00 58 06/23/17 08:00 98.5 58 13 145/73 (97) 06/23/17 06:00 60 06/23/17 04:00 58 06/23/17 04:00 98.2 58 16 153/81 (105) 94 06/23/17 02:00 57 06/23/17 00:00 98.3 57 18 138/81 (100) 95 06/23/17 00:00 56 06/22/17 22:00 78 06/22/17 20:00 98.0 74 16 129/67 (87) 96 06/22/17 20:00 74 06/22/17 18:00 68 06/22/17 16:00 68 06/22/17 16:00 98.6 55 14 126/67 (86) 98 I/O 06/22/17 06/22/17 06/22/17 06/23/17 06/23/17 06/23/17 07:00 15:00 23:00 07:00 15:00 23:00 Intake Total 700 ml 560 ml 1278 ml 200 ml Output Total 3500 ml 0 ml 1 ml Balance -2800 ml 560 ml 1277 ml 200 ml Intake Oral 560 ml 240 ml IV Total 700 ml 1038 ml 200 ml Output Urine Total 0 ml 1 ml Hemodialysis 3500 ml # Bowel Movements 1 0 Result Diagram: 06/22/17 0554 06/23/17 0446 Imaging Last Impressions Pancreas Ultrasound 06/19/17 0000 Signed Impressions: Service Date/Time: Monday, June 19, 2017 13:34 - CONCLUSION: 1. Gallbladder sludge with mild wall thickening 2. No evidence of suspicious mass 3. Hyperechoic right kidney 4. 2 right renal cysts. Jatin Fontanez MD Catheter Placement X-Ray 06/14/17 0000 Signed Impressions: Service Date/Time: Wednesday, June 14, 2017 15:54 - CONCLUSION: Uncomplicated fluoroscopic-guided central venous permacath exchange as above. Jeff Batista MD Chest X-Ray 06/10/17 1436 Signed Impressions: Service Date/Time: Saturday, June 10, 2017 15:36 - CONCLUSION: 1. Stable chronic interstitial changes. 2. No acute infiltrate. Narendra Barreto Jr., MD Objective Remarks GENERAL: Well-developed, obese patient in no acute distress. HEAD: Atraumatic. Normocephalic. ENT: No nasal bleeding or discharge. NECK: No JVD, no Lymphadenopathy. CARDIOVASCULAR: Regular rate and rhythm. RESPIRATORY: Clear to auscultation bilateral, no wheezing or crackles. GASTROINTESTINAL: Abdomen soft, non-tender, nondistended. Bowel sounds present MUSCULOSKELETAL: Extremities without clubbing, cyanosis, or edema. Status post bilateral BKA with incisions healed. Right upper extremity AV fistula with palpable pulse. New Left femoral tunnel catheter in place with no obvious drainage, erythema, tenderness. NEUROLOGICAL: Awake and alert. No focal deficits. PSYCH: Mildly irritated. Medications and IVs Current Medications Medications (Trade) Dose Ordered Sig/Nohelia Route Start Time Stop Time Status Last Admin Phenylephrine HCl 80 mg/Dextrose 500 ml @ 15 mls/hr TITRATE PRN IV 06/10/17 20:00 06/10/17 23:28 (Brethine Inj) 1 mg UNSCH PRN SQ 06/10/17 18:30 (NS Flush) 2 ml UNSCH PRN IV FLUSH 06/10/17 18:30 (NS Flush) 2 ml BID IV FLUSH 06/10/17 21:00 06/23/17 08:41 (Zofran Inj) 4 mg Q6H PRN IV 06/10/17 18:30 06/14/17 15:19 (Albuterol Neb) 2.5 mg Q2HR NEB PRN INH 06/10/17 18:30 Miscellaneous Information 1 Q361D XX 06/10/17 18:30 (Chlorhexidine 2% Cloth) Taper DAILY@04 TOP 06/11/17 04:00 06/07/18 03:59 06/23/17 04:00 (Chlorhexidine 2% Cloth) 3 pack UNSCH PRN TOP 06/10/17 18:30 (Aneglika-Colace) 1 tab BID PO 06/10/17 21:00 06/23/17 08:40 (Milk Of Magnesia Liq) 30 ml Q12H PRN PO 06/10/17 18:30 (Senokot) 17.2 mg Q12H PRN PO 06/10/17 18:30 (Dulcolax Supp) 10 mg DAILY PRN RECTAL 06/10/17 18:30 (Lactulose Liq) 30 ml DAILY PRN PO 06/10/17 18:30 (Protonix) 40 mg DAILY PO 06/10/17 19:30 06/19/17 12:35 (Glucagon Inj) 1 mg UNSCH PRN OTHER 06/11/17 10:00 (NovoLIN R SUPPLEMENTAL SCALE) 1 Q4H SQ 06/11/17 15:00 Sodium Chloride 1,000 ml @ 0 mls/hr Q0M PRN OTHER 06/12/17 15:19 06/20/17 18:59 (Heparin Inj) 8,000 units UNSCH PRN IVF 06/12/17 15:30 Sodium Chloride 1,000 ml @ 200 mls/hr Q5H PRN IV 06/12/17 15:19 Sodium Chloride 1,000 ml @ 0 mls/hr Q0M PRN OTHER 06/12/17 15:19 (Mannitol Inj) 12.5 gm UNSCH PRN IV 06/12/17 15:30 06/19/17 11:40 (Albumin 25% Inj) 25 gm UNSCH PRN IV 06/12/17 15:30 06/22/17 08:52 (NS Flush) 5 ml UNSCH PRN IV FLUSH 06/12/17 15:30 (Heparin Inj) UNSCH PRN .XX 06/12/17 15:30 06/22/17 08:51 (Gentamicin (Dialysis) Inj) 20 mg UNSCH PRN IV 06/12/17 15:30 06/22/17 08:51 (Zofran Inj) 4 mg UNSCH PRN IV 06/12/17 15:30 06/15/17 16:09 (Tylenol) 650 mg UNSCH PRN PO 06/12/17 15:30 (Benadryl) 25 mg UNSCH PRN PO 06/12/17 15:30 (Nitrostat Sl) 0.4 mg UNSCH PRN SL 06/12/17 15:30 (Catapres) 0.1 mg UNSCH PRN PO 06/12/17 15:30 (Gelfoam 12 Mm/7 Mm Top) 1 foam UNSCH PRN TOP 06/12/17 15:30 Vancomycin HCl 1000 mg/Sodium Chloride 250 ml @ 250 mls/hr WITH DIALYSIS IV 06/13/17 13:45 06/22/17 08:51 (NS Flush) UNSCH PRN IVF 06/14/17 18:00 (Heparin Inj) UNSCH PRN IV FLUSH 06/14/17 18:00 Fluconazole/ Sodium Chloride 200 ml @ 100 mls/hr Q24H IV 06/16/17 11:00 06/23/17 11:15 Pharmacy Profile Note 0 ml @ 0 mls/hr UNSCH OTHER 06/16/17 10:15 (D50w (Syr) Inj) 50 ml UNSCH PRN IV 06/17/17 19:30 06/22/17 09:08 Sodium Chloride 154 meq/Dextrose 1,038.5 ml @ 50 mls/hr [id number] IV 06/23/17 05:15 06/23/17 05:15 (SoluCORTEF INJ) 50 mg Q8HR IV PUSH 06/23/17 14:00 (Proamatine) 5 mg WITH DIALYSIS PO 06/23/17 13:30 (Coumadin) 4 mg DAILY@1600 PO 06/23/17 16:00 A/P Assessment and Plan Septic shock/ Staph Epi/coag negative staph bacteremia/ candidemia Status post IV fluids resuscitation, Midodrine, stress dose steroids given the patient refusing them at this time. ECHO- EF 55-60%, no RWMA, trace TR, PAP 36mmHG. Blood cultures grew yeast and staph epi. S/p permacath exchange. - Status post stress steroids. Patient refused most doses. Will resume 06/22. - Continue vanco and Diflucan per ID, PermCath line likely source. History of Asthma Chronic basilar interstitial opacities. CXR 06/10 : Chronic interstitial changes, no acute infiltrate. Breathing comfortably. - continue Oxygen and keep Oxygen saturation over 92%. - Continue bronchodilator, mucolytics and incentive spirometry. ESRD On Hemodialysis Tuesday/Tuesday/Tuesday. 06/14 PermCath exchange by IR. - Nephrology specialist following. Fistulogram has been rescheduled as outpatient. SLE/ DVT VICKI negative in the past. DVT noted. - continue Coumadin. Therapeutic. Dc heparin drip. Hypoglycemia Possibly s/t sepsis and end-stage renal disease. ? cortisol deficiency. Workup in progress. Pancreatic ultrasound negative for insulinoma. Still requiring amps of D50. - treat sepsis as above. - D10 decreased to 50 ml per hour. - check insulin, proinsulin, c peptide, B-HBA. - regular diet and Nephro added. - Will need to follow up with an polisher apprentice. - resume hydrocortisone at 50 mg IV every 8 hours. - CT abdomen ordered to evaluate for insulinoma. Peripheral vascular disease Status post bilateral BKA's. - PT/OT. PROPH: Coumadin Discharge Planning Awaiting improvement in stabilization of blood sugar Amador Oneill DO Jun 23, 2017 15:28
[2017-06-23] MEDS ORDERED: WARFARIN SOD 4 MG TAB PO SCH (16:00)
[2017-06-23] MEDS: SODIUM CHLOR 0.9% 1000 ML INJ 1,000 ML OTHER PRN (16:46)
[2017-06-23] MEDS: ALBUMIN HUMAN 25% 25 GM/100 ML BAGP IV PRN (16:46)
[2017-06-23] MEDS: GENTAMICIN SULFATE (DIALYSIS USE ONLY) 20 MG/2 ML VIAL IV PRN (16:46)
[2017-06-23] MEDS: HEPARIN SODIUM - IV 10,000 UNITS/10 ML VIAL PRN (16:46)
--- NOTE | 2017-06-23 22:22 | RADRPT ---
EXAM DATE/TIME: 06/23/2017 21:22 [facility] COMPARISON: No previous studies available for comparison. INDICATIONS : Abdominal pain. Evaluate for insulinoma. ORAL CONTRAST: No oral contrast ingested. RADIATION DOSE: 15.38 CTDIvol (mGy) MEDICAL HISTORY : Congestive heart failure. Arthritis. Lupus. CVA. Coronary artery disease. DVT. COPD. Renal disease an d failure. SURGICAL HISTORY : Coronary artery stent. Dialysis. ENCOUNTER: Subsequent ACUITY: 4 - 6 days PAIN SCALE: 6/10 LOCATION: All quadrants. TECHNIQUE: Volumetric scanning of the abdomen and pelvis was performed. Using automated exposure control and ad justment of the mA and/or kV according to patient size, radiation dose was kept as low as reasonably achievable to obtain optimal diagnostic quality images. DICOM format image data is available electro nically for review and comparison. FINDINGS: LOWER LUNGS: Mild patchy infiltrates seen of the visualized lung bases. LIVER: Homogeneous density without lesion. There is no dilation of the biliary tree. No calcified gallston es. SPLEEN: Normal size without lesion. PANCREAS: Within normal limits. KIDNEYS: Atrophic and with scattered small cysts and tiny nonobstructing stones. ADRENAL GLANDS: Within normal limits. VASCULAR: There is no aortic aneurysm. There is a left femoral Vas-Cath with tip in the right atrium. A wire me sh stent is seen in the IVC. BOWEL/MESENTERY: The stomach, small bowel, and colon demonstrate no acute abnormality. There is no free intraperitone al air. Normal appendix. Mild mesenteric/intra-abdominal edema. Nothing organized or drainable. ABDOMINAL WALL: Extensive diffuse body wall edema. Nothing loculated. RETROPERITONEUM: There is no lymphadenopathy. BLADDER: No wall thickening or mass. REPRODUCTIVE: Within normal limits. INGUINAL: There is no lymphadenopathy or hernia. MUSCULOSKELETAL: No acute bony abnormality demonstrated. CONCLUSION: 1. No perceptible insulinoma or other mass. 2. Mesenteric edema and diffuse anasarca. Nothing organized or drainable. 3. Mild patchy infiltrate of the visualized lung bases. Jeff Méndez MD on June 23, 2017 at 22:16 Board Certified Radiologist. This report was verified electronically.
[2017-06-24] VITALS (12 sets, daily range): BP systolic 121–135; BP diastolic 69–78; PULSE 51–76; RESP 13–18; TEMP 97.3–98.4; O2SAT 100
[2017-06-24] MEDS: INSULIN NovoLIN REGULAR SUPPLEMENTAL SCALE SQ SCH ×5 (03:00→23:00)
[2017-06-24] MEDS: CHLORHEXIDINE GLUCONATE 2 % 1 PACK (2 CLOTHS) TOP SCH (04:00)
[2017-06-24] MEDS: HYDROCORTISONE SOD SUCCINATE 100 MG VIAL IV PUSH SCH ×3 (05:48→21:23)
[2017-06-24] MEDS: SODIUM CHLORIDE 23.4% INJ 154 MEQ in DEXTROSE 10% INJ 1,000 ML IV SCH ×2 (05:49→21:25)
[2017-06-24 06:42] LABS: PROTHROMBIN TIME - PATIENT 34.7 SEC (9.8-11.6)
[2017-06-24 07:02] LABS: BICARBONATE 25.6 MEQ/L (21.0-32.0); MAGNESIUM 1.9 MG/DL (1.5-2.5)
[2017-06-24] MEDS: MANNITOL 12.5 GM/50 ML VIAL IV PRN (08:53)
[2017-06-24] MEDS: PANTOPRAZOLE SOD 40 MG DELAYED RELEASE TAB PO SCH (09:00)
[2017-06-24] MEDS: SODIUM CHLORIDE 0.9% FLUSH 10 ML FLUSH IV FLUSH SCH ×2 (09:00→21:24)
--- NOTE | 2017-06-24 10:22 | HHI.PR ---
Subjective Remarks The patient was getting dialysis done. He was happy to learn that his blood sugars were improved. He was hopeful he would be able to go home the next few days. He had no acute complaints. Discussed with nursing at the bedside. Objective Vitals Vital Signs Date Time Temp Pulse Resp B/P (MAP) Pulse Ox O2 Delivery O2 Flow Rate FiO2 06/24/17 08:00 51 06/24/17 08:00 97.3 51 13 132/71 (91) 06/24/17 06:00 59 06/24/17 04:00 59 06/24/17 04:00 98.1 59 17 134/71 (92) 06/24/17 02:00 68 06/24/17 00:00 98.0 59 18 135/71 (92) 06/24/17 00:00 59 06/23/17 22:00 69 06/23/17 20:00 97.8 66 16 130/74 (92) 06/23/17 20:00 66 06/23/17 18:00 53 06/23/17 16:00 77 06/23/17 16:00 98.8 77 13 121/64 (83) 06/23/17 14:00 56 06/23/17 12:00 98.0 68 10 135/69 (91) 06/23/17 12:00 68 I/O 06/23/17 06/23/17 06/23/17 06/24/17 06/24/17 06/24/17 07:00 15:00 23:00 07:00 15:00 23:00 Intake Total 1278 ml 200 ml 675 ml 240 ml Output Total 0 ml 2500 ml 0 ml Balance 1278 ml 200 ml -1825 ml 240 ml Intake Oral 240 ml 475 ml 240 ml IV Total 1038 ml 200 ml 200 ml Output Urine Total 0 ml 0 ml 0 ml Hemodialysis 2500 ml # Bowel Movements 0 1 0 Result Diagram: 06/22/17 0554 06/24/17 0535 Imaging Last Impressions Abdomen/Pelvis CT 06/23/17 0000 Signed Impressions: Service Date/Time: June 21:22 - CONCLUSION: 1. No perceptible insulinoma or other mass. 2. Mesenteric edema and diffuse anasarca. Nothing organized or drainable. 3. Mild patchy infiltrate of the visualized lung bases. Jeff Méndez MD Pancreas Ultrasound 06/19/17 0000 Signed Impressions: Service Date/Time: Monday, June 19, 2017 13:34 - CONCLUSION: 1. Gallbladder sludge with mild wall thickening 2. No evidence of suspicious mass 3. Hyperechoic right kidney 4. 2 right renal cysts. Jatin Fontanez MD Catheter Placement X-Ray 06/14/17 0000 Signed Impressions: Service Date/Time: Wednesday, June 14, 2017 15:54 - CONCLUSION: Uncomplicated fluoroscopic-guided central venous permacath exchange as above. Jeff Batista MD Chest X-Ray 06/10/17 1436 Signed Impressions: Service Date/Time: Saturday, June 10, 2017 15:36 - CONCLUSION: 1. Stable chronic interstitial changes. 2. No acute infiltrate. Narendra Barreto Jr., MD Objective Remarks GENERAL: Well-developed, obese patient in no acute distress. HEAD: Atraumatic. Normocephalic. ENT: No nasal bleeding or discharge. NECK: No JVD, no Lymphadenopathy. CARDIOVASCULAR: Regular rate and rhythm. RESPIRATORY: Clear to auscultation bilateral, no wheezing or crackles. GASTROINTESTINAL: Abdomen soft, non-tender, nondistended. Bowel sounds present MUSCULOSKELETAL: Extremities without clubbing, cyanosis, or edema. Status post bilateral BKA with incisions healed. Right upper extremity AV fistula with palpable pulse. New Left femoral tunnel catheter in place with no obvious drainage, erythema, tenderness. NEUROLOGICAL: Awake and alert. No focal deficits. PSYCH: Mood and affect appropriate. Medications and IVs Current Medications Medications (Trade) Dose Ordered Sig/Nohelia Route Start Time Stop Time Status Last Admin Phenylephrine HCl 80 mg/Dextrose 500 ml @ 15 mls/hr TITRATE PRN IV 06/10/17 20:00 06/10/17 23:28 (Brethine Inj) 1 mg UNSCH PRN SQ 06/10/17 18:30 (NS Flush) 2 ml UNSCH PRN IV FLUSH 06/10/17 18:30 (NS Flush) 2 ml BID IV FLUSH 06/10/17 21:00 06/24/17 09:00 (Zofran Inj) 4 mg Q6H PRN IV 06/10/17 18:30 06/14/17 15:19 (Albuterol Neb) 2.5 mg Q2HR NEB PRN INH 06/10/17 18:30 Miscellaneous Information 1 Q361D XX 06/10/17 18:30 (Chlorhexidine 2% Cloth) Taper DAILY@04 TOP 06/11/17 04:00 06/07/18 03:59 06/24/17 04:00 (Chlorhexidine 2% Cloth) 3 pack UNSCH PRN TOP 06/10/17 18:30 (Angelika-Colace) 1 tab BID PO 06/10/17 21:00 06/23/17 21:03 (Milk Of Magnesia Liq) 30 ml Q12H PRN PO 06/10/17 18:30 (Senokot) 17.2 mg Q12H PRN PO 06/10/17 18:30 (Dulcolax Supp) 10 mg DAILY PRN RECTAL 06/10/17 18:30 (Lactulose Liq) 30 ml DAILY PRN PO 06/10/17 18:30 (Protonix) 40 mg DAILY PO 06/10/17 19:30 06/19/17 12:35 (Glucagon Inj) 1 mg UNSCH PRN OTHER 06/11/17 10:00 (NovoLIN R SUPPLEMENTAL SCALE) 1 Q4H SQ 06/11/17 15:00 Sodium Chloride 1,000 ml @ 0 mls/hr Q0M PRN OTHER 06/12/17 15:19 06/23/17 16:46 (Heparin Inj) 8,000 units UNSCH PRN IVF 06/12/17 15:30 Sodium Chloride 1,000 ml @ 200 mls/hr Q5H PRN IV 06/12/17 15:19 Sodium Chloride 1,000 ml @ 0 mls/hr Q0M PRN OTHER 06/12/17 15:19 (Mannitol Inj) 12.5 gm UNSCH PRN IV 06/12/17 15:30 06/19/17 11:40 (Albumin 25% Inj) 25 gm UNSCH PRN IV 06/12/17 15:30 06/23/17 16:46 (NS Flush) 5 ml UNSCH PRN IV FLUSH 06/12/17 15:30 (Heparin Inj) UNSCH PRN .XX 06/12/17 15:30 06/23/17 16:46 (Gentamicin (Dialysis) Inj) 20 mg UNSCH PRN IV 06/12/17 15:30 06/23/17 16:46 (Zofran Inj) 4 mg UNSCH PRN IV 06/12/17 15:30 06/15/17 16:09 (Tylenol) 650 mg UNSCH PRN PO 06/12/17 15:30 (Benadryl) 25 mg UNSCH PRN PO 06/12/17 15:30 (Nitrostat Sl) 0.4 mg UNSCH PRN SL 06/12/17 15:30 (Catapres) 0.1 mg UNSCH PRN PO 06/12/17 15:30 (Gelfoam 12 Mm/7 Mm Top) 1 foam UNSCH PRN TOP 06/12/17 15:30 Vancomycin HCl 1000 mg/Sodium Chloride 250 ml @ 250 mls/hr WITH DIALYSIS IV 06/13/17 13:45 06/22/17 08:51 (NS Flush) UNSCH PRN IVF 06/14/17 18:00 (Heparin Inj) UNSCH PRN IV FLUSH 06/14/17 18:00 Fluconazole/ Sodium Chloride 200 ml @ 100 mls/hr Q24H IV 06/16/17 11:00 06/23/17 11:15 Pharmacy Profile Note 0 ml @ 0 mls/hr UNSCH OTHER 06/16/17 10:15 (D50w (Syr) Inj) 50 ml UNSCH PRN IV 06/17/17 19:30 06/22/17 09:08 Sodium Chloride 154 meq/Dextrose 1,038.5 ml @ 30 mls/hr Q24H IV 06/23/17 05:15 06/24/17 05:49 (SoluCORTEF INJ) 50 mg Q8HR IV PUSH 06/23/17 14:00 06/24/17 05:48 (Proamatine) 5 mg WITH DIALYSIS PO 06/23/17 13:30 (Coumadin) 4 mg DAILY@1600 PO 06/23/17 16:00 06/23/17 17:54 A/P Assessment and Plan Septic shock/ Staph Epi/coag negative staph bacteremia/ candidemia Status post IV fluids resuscitation, Midodrine, stress dose steroids given the patient refusing them at this time. ECHO- EF 55-60%, no RWMA, trace TR, PAP 36mmHG. Blood cultures grew yeast and staph epi. S/p permacath exchange. - Continue vancomycin and Diflucan per ID. Hypoglycemia Possibly s/t sepsis and end-stage renal disease. ? cortisol deficiency. Workup in progress. Pancreatic ultrasound negative for insulinoma. CT abdomen negative for insulinoma as well. Glucose improved 06/24. - treat sepsis as above. - D10 decreased to 30 ml per hour. Hope to wean off by tomorrow. - Insulin level elevated at 31.1, B-HB low. Still need proinsulin and c peptide levels to interpret. Pending. - regular diet and Nephro added. - Will need to follow up with an penal officer. - hydrocortisone at 50 mg IV every 8 hours. Wean to BID 06/25. History of Asthma Chronic basilar interstitial opacities. CXR 06/10 : Chronic interstitial changes, no acute infiltrate. Breathing comfortably. - continue Oxygen and keep Oxygen saturation over 92%. - Continue bronchodilator, mucolytics and incentive spirometry. ESRD On Hemodialysis Tuesday/Tuesday/Tuesday. 06/14 PermCath exchange by IR. - Nephrology specialist following. Fistulogram has been rescheduled as outpatient. - continue midodrine. SLE/ DVT VICKI negative in the past. DVT noted. - continue Coumadin. Therapeutic. Dc heparin drip. Peripheral vascular disease Status post bilateral BKA's. - PT/OT. PROPH: Coumadin Discharge Planning Awaiting improvement/ stabilization of blood sugar. Amador Oneill DO Jun 24, 2017 10:22
[2017-06-24] MEDS: MIDODRINE 5 MG TAB PO SCH (10:42)
[2017-06-24] MEDS: VANCOMYCIN INJ 1,000 MG in SODIUM CHLOR 0.9% 250 ML INJ 250 ML IV SCH (11:00)
[2017-06-24] MEDS ORDERED: FLUDROCORTISONE ACETATE 0.1 MG TAB PO SCH (11:45)
--- NOTE | 2017-06-24 11:52 | HHI.NPPN ---
Subjective History of Present Illness This patient is a 46-year-old male with a history of end-stage renal disease, SLE, hypertension, peripheral vascular disease as well as secondary hyperparathyroidism of renal disease. Unfortunately the patient has had multiple dialysis accesses including dialysis shunts and dialysis catheters in the past complicated by access failure as well as infection. Patient now has very limited options for dialysis access. Presently we are relying on a left femoral dialysis line for access. Fortunately vessel surgery was able to create a left arm AV dialysis fistula back in February. It has matured somewhat but not ideally and presently we are using one needle in the fistula while port at the dialysis line has been used for dialysis access. We have not yet tried to use 2 needles in the AV dialysis shunt. Patient presents now with a history of chills, fever postdialysis yesterday and was noted to be hypotensive on presentation with blood pressures in the 60s. Patient's blood pressure has since improved however. Blood cultures negative 24 hours at time of consultation. Patient did receive cefepime and vancomycin since admission. Infectious disease on board.. Interval History The patient was seen during HD Has been having to run extra treatments given his fluid gains. On glucose drip. Should be noted that the patient is refusing Midodrine as "it makes his bladder burn" (Gladis Cole) Review of Systems Respiratory Lungs: SOB (with exertion) (Gladis Cole) Objective Data Data Vital Signs Date Time Temp Pulse Resp B/P (MAP) Pulse Ox O2 Delivery O2 Flow Rate FiO2 06/24/17 10:00 72 06/24/17 08:00 51 06/24/17 08:00 97.3 51 13 132/71 (91) 06/24/17 06:00 59 06/24/17 04:00 59 06/24/17 04:00 98.1 59 17 134/71 (92) 06/24/17 02:00 68 06/24/17 00:00 98.0 59 18 135/71 (92) 06/24/17 00:00 59 06/23/17 22:00 69 06/23/17 20:00 97.8 66 16 130/74 (92) 06/23/17 20:00 66 06/23/17 18:00 53 06/23/17 16:00 77 06/23/17 16:00 98.8 77 13 121/64 (83) 06/23/17 14:00 56 06/23/17 12:00 98.0 68 10 135/69 (91) 06/23/17 12:00 68 (Gladis Cole) -: 06/22/17 0554 06/24/17 0535 Imaging Last Impressions Abdomen/Pelvis CT 06/23/17 0000 Signed Impressions: Service Date/Time: June 21:22 - CONCLUSION: 1. No perceptible insulinoma or other mass. 2. Mesenteric edema and diffuse anasarca. Nothing organized or drainable. 3. Mild patchy infiltrate of the visualized lung bases. Jeff Méndez MD Pancreas Ultrasound 06/19/17 0000 Signed Impressions: Service Date/Time: Monday, June 19, 2017 13:34 - CONCLUSION: 1. Gallbladder sludge with mild wall thickening 2. No evidence of suspicious mass 3. Hyperechoic right kidney 4. 2 right renal cysts. Jatin Fontanez MD Catheter Placement X-Ray 06/14/17 0000 Signed Impressions: Service Date/Time: Wednesday, June 14, 2017 15:54 - CONCLUSION: Uncomplicated fluoroscopic-guided central venous permacath exchange as above. Jeff Batista MD Chest X-Ray 06/10/17 1436 Signed Impressions: Service Date/Time: Saturday, June 10, 2017 15:36 - CONCLUSION: 1. Stable chronic interstitial changes. 2. No acute infiltrate. Narendra Barreto Jr., MD Medication Review Current Medications Medications (Trade) Dose Ordered Sig/Nohelia Route Start Time Stop Time Status Last Admin Phenylephrine HCl 80 mg/Dextrose 500 ml @ 15 mls/hr TITRATE PRN IV 06/10/17 20:00 06/10/17 23:28 (Brethine Inj) 1 mg UNSCH PRN SQ 06/10/17 18:30 (NS Flush) 2 ml UNSCH PRN IV FLUSH 06/10/17 18:30 (NS Flush) 2 ml BID IV FLUSH 06/10/17 21:00 06/24/17 09:00 (Zofran Inj) 4 mg Q6H PRN IV 06/10/17 18:30 06/14/17 15:19 (Albuterol Neb) 2.5 mg Q2HR NEB PRN INH 06/10/17 18:30 Miscellaneous Information 1 Q361D XX 06/10/17 18:30 (Chlorhexidine 2% Cloth) Taper DAILY@04 TOP 06/11/17 04:00 06/07/18 03:59 06/24/17 04:00 (Chlorhexidine 2% Cloth) 3 pack UNSCH PRN TOP 06/10/17 18:30 (Angelika-Colace) 1 tab BID PO 06/10/17 21:00 06/23/17 21:03 (Milk Of Magnesia Liq) 30 ml Q12H PRN PO 06/10/17 18:30 (Senokot) 17.2 mg Q12H PRN PO 06/10/17 18:30 (Dulcolax Supp) 10 mg DAILY PRN RECTAL 06/10/17 18:30 (Lactulose Liq) 30 ml DAILY PRN PO 06/10/17 18:30 (Protonix) 40 mg DAILY PO 06/10/17 19:30 06/19/17 12:35 (Glucagon Inj) 1 mg UNSCH PRN OTHER 06/11/17 10:00 (NovoLIN R SUPPLEMENTAL SCALE) 1 Q4H SQ 06/11/17 15:00 Sodium Chloride 1,000 ml @ 0 mls/hr Q0M PRN OTHER 06/12/17 15:19 06/23/17 16:46 (Heparin Inj) 8,000 units UNSCH PRN IVF 06/12/17 15:30 Sodium Chloride 1,000 ml @ 200 mls/hr Q5H PRN IV 06/12/17 15:19 Sodium Chloride 1,000 ml @ 0 mls/hr Q0M PRN OTHER 06/12/17 15:19 (Mannitol Inj) 12.5 gm UNSCH PRN IV 06/12/17 15:30 06/19/17 11:40 (Albumin 25% Inj) 25 gm UNSCH PRN IV 06/12/17 15:30 06/23/17 16:46 (NS Flush) 5 ml UNSCH PRN IV FLUSH 06/12/17 15:30 (Heparin Inj) UNSCH PRN .XX 06/12/17 15:30 06/23/17 16:46 (Gentamicin (Dialysis) Inj) 20 mg UNSCH PRN IV 06/12/17 15:30 06/23/17 16:46 (Zofran Inj) 4 mg UNSCH PRN IV 06/12/17 15:30 06/15/17 16:09 (Tylenol) 650 mg UNSCH PRN PO 06/12/17 15:30 (Benadryl) 25 mg UNSCH PRN PO 06/12/17 15:30 (Nitrostat Sl) 0.4 mg UNSCH PRN SL 06/12/17 15:30 (Catapres) 0.1 mg UNSCH PRN PO 06/12/17 15:30 (Gelfoam 12 Mm/7 Mm Top) 1 foam UNSCH PRN TOP 06/12/17 15:30 Vancomycin HCl 1000 mg/Sodium Chloride 250 ml @ 250 mls/hr WITH DIALYSIS IV 06/13/17 13:45 06/22/17 08:51 (NS Flush) UNSCH PRN IVF 06/14/17 18:00 (Heparin Inj) UNSCH PRN IV FLUSH 06/14/17 18:00 Fluconazole/ Sodium Chloride 200 ml @ 100 mls/hr Q24H IV 06/16/17 11:00 06/23/17 11:15 Pharmacy Profile Note 0 ml @ 0 mls/hr UNSCH OTHER 06/16/17 10:15 (D50w (Syr) Inj) 50 ml UNSCH PRN IV 06/17/17 19:30 06/22/17 09:08 Sodium Chloride 154 meq/Dextrose 1,038.5 ml @ 30 mls/hr Q24H IV 06/23/17 05:15 06/24/17 05:49 (SoluCORTEF INJ) 50 mg Q8HR IV PUSH 06/23/17 14:00 06/24/17 05:48 (Proamatine) 5 mg WITH DIALYSIS PO 06/23/17 13:30 (Coumadin) 4 mg DAILY@1600 PO 06/23/17 16:00 Future Hold 06/23/17 17:54 (Gladis Cole) Physical Exam General Appearance: Well Developed, Well Nourished, No Acute Distress, Comfortable (Gladis Cole) Eyes Eye Exam: Sclera White (Gladis Cole) Pulmonary Resp Exam: Clear Bilaterally, Breath Sounds Equal (Gladis Cole) Cardiology CV Exam: Regular, Normal Sinus Rhythm, Good Perfusion (Gladis Cole) Gastrointestinal/Abdomen GI Exam: Soft, Non-Tender (Gladis Cole) Integumentary Skin Exam: Clear, Warm, Normal Turgor (Gladis Cole) Extremeties Extremities Exam: Moderate Edema (1+ sacrum and hips), Pitting Edema (Gladis Cole) Neurologic Neuro Exam: Alert, Awake (Gladis Cole) Psychiatric Psych Exam: Appropriate Responses (Gladis Cole) Assessment/Plan Discussed Condition With: Patient Problem List: (1) ESRD (end stage renal disease) on dialysis ICD Codes: N18.6 - End stage renal disease; Z99.2 - Dependence on renal dialysis Status: Chronic Plan: Fistulogram has been rescheduled as an outpatient. PermCath however appears to be working well. BCx were previously positive for Edita parapsilosis. Infectious disease following. Fortunately the patient's blood cultures are remaining negative. Pt ran extra treatment 06/23 and was seen during his regular session 06/24. UF of 3500. Will place the patient on fluid restriction and sodium restriction Is still refusing Midodrine. Will change to Florinef 0.1mg prior to each dialysis. Medication should be adjusted for the patient's end-stage renal disease when indicated. Avoid gadolinium. (2) Sepsis ICD Codes: A41.9 - Sepsis, unspecified organism Status: Acute Plan: Improving. Still on abx ads per ID Has been cleared for discharge by ID (3) Complications, dialysis, catheter, mechanical ICD Codes: T82.49XA - Other complication of vascular dialysis catheter, initial encounter Status: Acute Plan: Await fistulogram results as outpatient and interim continue to use femoral catheter Has severe PVD complicating access. (4) Lupus (systemic lupus erythematosus) ICD Codes: M32.9 - Systemic lupus erythematosus, unspecified (5) Deep vein thrombosis (DVT) ICD Codes: I82.409 - Acute embolism and thrombosis of unspecified deep veins of unspecified lower extremity Permanent Comment: The patient has been on anticoagulation therapy in the past however he is very poorly compliant in this regard . Last Edited By: Raul Merlos on Jun 11, 2017 13:34 (6) Hypoglycemia ICD Codes: E16.2 - Hypoglycemia, unspecified Plan: Etiology of hypoglycemia uncertain. Patients with end-stage renal disease are more susceptible to hypoglycemia secondary to prolonged half life of insulin however. Noted steroids have been reinitiated for possible adrenal insufficiency also. Heparin is mentioned as a potential etiology of hypoglycemia however according to the literature I reviewed indicated a very low quality of evidence. Hypoglycemia appears to be improving. Recommend tapering off D10 W as soon as possible to reduce patient's fluid load. (Gladis Cole) Plan The exam, history, and the medical decision-making described in the above note were completed with the assistance of the PA-C. I reviewed and agree with the findings presented. (Clarence Merlos MD) Gladis Cole Jun 24, 2017 11:52 Clarence Merlos MD Jun 27, 2017 11:26
[2017-06-24] MEDS: SODIUM CHLOR 0.9% 1000 ML INJ 1,000 ML OTHER PRN (12:00)
[2017-06-24] MEDS: GENTAMICIN SULFATE (DIALYSIS USE ONLY) 20 MG/2 ML VIAL IV PRN (12:00)
[2017-06-24] MEDS: HEPARIN SODIUM - IV 10,000 UNITS/10 ML VIAL PRN (12:00)
--- NOTE | 2017-06-24 17:04 | HHI.IDPN ---
Subjective Subjective Remarks Patient is a 46-year-old male, with known ESRD, on hemodialysis Tuesday and Tuesday, presented to the hospital complaining of low blood pressure, and fever. Patient states his blood pressure is generally on the low side, but usually runs around 80-90 systolic. He had his usual hemodialysis on the day of admission, and his vitals were stable at that time. When he went home however, he felt like he had a fever, and he's check his blood pressure and it was in the 60s. He denies any respiratory complaint. He denies any shortness of breath. No abdominal pain, nausea vomiting or diarrhea. He has no significant urine output. He has not been around anyone sick. In the emergency room he had a blood pressure in the 60s, and he was febrile up to 103. His WBC is normal. Sedimentation rate 1. Lactic acid 4.2, and it's down to 1.1 today. Her temperatures are better. He is on pressors currently. He offers no specific complaint at the time my exam. Patient has known central venous occlusion, and venous access for his hemodialysis has been a problem. He currently has a left groin permacath, and it was last exchange last May 16. He has a right upper extremity AV fistula that was placed in February, and in March, he was admitted and treated for a wound infection in his AV fistula incision that grew out enterococcus. His blood cultures were negative at that time. He was treated aggressively with IV antibiotic and he completed treatment back in April. The wound has completely healed. His AV fistula has recently been access the last 2 times he had hemodialysis. Only one of the limb was access, and the groin permacath was also used. Notes reviewed No fever BS better Asymptomatic hypoglycemia No new (+) BC BC with Edita parapsilosis from 06/14 Last (+) BC withn Staph epi 06/14 Permacath exchange done 06/14 Antibiotics Vancomycin fluconazole Lines L groin permacath Past Medical History ESRD on hemodialysis SLE E CAD Hypertension Severe PVD History of DVT Anemia Hyperparathyroidism of renal origin Previous dialysis catheter line infection Known central venous occlusion Past Surgical History Bilateral BKA 2 fingers amputated Previous dialysis access in his left upper extremity Recent AV fistula creation in the right upper extremity Previous revascularization procedures for PVD Allergies: Coded Allergies: iodine (Unverified Allergy, Severe, blisters, 06/10/17) morphine (Unverified Allergy, Severe, Itching, 06/10/17) potassium iodide (Unverified Allergy, Severe, blisters, 06/10/17) povidone-iodine (Unverified Allergy, Severe, blisters, 06/10/17) sodium iodide (Unverified Allergy, Severe, blisters, 06/10/17) sodium iodide (Unverified Allergy, Severe, blisters, 06/10/17) Objective . Vital Signs Date Time Temp Pulse Resp B/P (MAP) Pulse Ox O2 Delivery O2 Flow Rate FiO2 06/24/17 12:00 65 06/24/17 10:00 72 06/24/17 08:00 51 06/24/17 08:00 97.3 51 13 132/71 (91) 06/24/17 06:00 59 06/24/17 04:00 59 06/24/17 04:00 98.1 59 17 134/71 (92) 06/24/17 02:00 68 06/24/17 00:00 98.0 59 18 135/71 (92) 06/24/17 00:00 59 06/23/17 22:00 69 06/23/17 20:00 97.8 66 16 130/74 (92) 06/23/17 20:00 66 06/23/17 18:00 53 . Laboratory Tests Test 06/23/17 04:46 06/24/17 05:35 Blood Urea Nitrogen 42 MG/DL 47 MG/DL Creatinine 7.64 MG/DL 7.39 MG/DL Random Glucose 82 MG/DL 83 MG/DL Calcium Level 9.0 MG/DL 9.1 MG/DL Magnesium Level 2.0 MG/DL 1.9 MG/DL Sodium Level 138 MEQ/L 140 MEQ/L Potassium Level 4.4 MEQ/L 4.0 MEQ/L Chloride Level 102 MEQ/L 101 MEQ/L Carbon Dioxide Level 25.9 MEQ/L 25.6 MEQ/L Anion Gap 10 MEQ/L 13 MEQ/L Estimat Glomerular Filtration Rate 9 ML/MIN 10 ML/MIN Microbiology Date/Time Source Procedure Growth Status 06/22/17 15:56 Blood Other Aerobic Blood Culture - Preliminary NO GROWTH IN 2 DAYS Resulted 06/22/17 15:56 Blood Other Anaerobic Blood Culture - Preliminary NO GROWTH IN 2 DAYS Resulted 06/22/17 10:35 Blood Other Aerobic Blood Culture - Preliminary NO GROWTH IN 2 DAYS Resulted 06/22/17 10:35 Blood Other Anaerobic Blood Culture - Preliminary NO GROWTH IN 2 DAYS Resulted Imaging Pancreas Ultrasound 06/19/17 0000 Signed Impressions: Service Date/Time: Monday, June 19, 2017 13:34 - CONCLUSION: 1. Gallbladder sludge with mild wall thickening 2. No evidence of suspicious mass 3. Hyperechoic right kidney 4. 2 right renal cysts. Jatin Fontanez MD Catheter Placement X-Ray 06/14/17 0000 Signed Impressions: Service Date/Time: Wednesday, June 14, 2017 15:54 - CONCLUSION: Uncomplicated fluoroscopic-guided central venous permacath exchange as above. Jeff Batista MD Chest X-Ray 06/10/17 1436 Signed Impressions: Service Date/Time: Saturday, June 10, 2017 15:36 - CONCLUSION: 1. Stable chronic interstitial changes. 2. No acute infiltrate. Narendra Barreto Jr., MD Physical Exam GENERAL: awake and alert, not in respiratory distress. SKIN: Warm and dry. No generalized rash, no ecchymoses and no evidence of embolic lesions. HEAD: Atraumatic. Normocephalic. No temporal wasting, or tenderness. EYES: Rodman conjunctiva. No petechia or hemorrhage. Extraocular movements full and intact. No scleral icterus. No injection or drainage. EARS, NOSE AND THROAT: Nose without bleeding or purulent nasal discharge. No sinus tenderness. Mucous membranes pink and moist. No oral lesions noted. No exudate. No oral thrush. CARDIOVASCULAR: Regular rate and rhythm. No murmurs, rubs or gallops heard RESPIRATORY: Clear to auscultation. Breath sounds equal bilaterally. No rales , wheezing or rhonchi ABDOMEN: Soft, nondistended, not tender. Bowel sounds present and normoactive. No guarding. No rebound. No organomegaly. EXTREMITIES: No clubbing, cyanosis, or edema. Has jacqueline BKA, well healed stump. L thigh permacath site with no evidence of infection NEUROLOGICAL: awake and alert Grossly non-focal PSYCHIATRIC: Normal affect, calm and cooperative. 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 better Episodes of hypoglycemia, etiology? RECOMMENDATION Continue Vanco - will give with each HD - to cover (+) BC with Staph epi - give until July 11 Continue Diflucan - plan till Jul 11 Monitor progress D/W Louann Hart MD Jun 24, 2017 17:04
[2017-06-24] MEDS: DOCUSATE SODIUM 50 MG/SENNA 8.6 MG TAB PO SCH ×2 (17:06→21:00)
--- NOTE | 2017-06-24 17:07 | HHI.FF ---
Infusion Therapy Location of Infusion Therapy: Dialysis Center Patient Information Patient Weight 83.5 kg Diagnosis: Diagnosis Staph epi bacteremia Coded Allergies: iodine (Unverified Allergy, Severe, blisters, 06/10/17) morphine (Unverified Allergy, Severe, Itching, 06/10/17) potassium iodide (Unverified Allergy, Severe, blisters, 06/10/17) povidone-iodine (Unverified Allergy, Severe, blisters, 06/10/17) sodium iodide (Unverified Allergy, Severe, blisters, 06/10/17) sodium iodide (Unverified Allergy, Severe, blisters, 06/10/17) Administer Medication Vancomycin 1 gram IV q 48 hours w/Hemodialysis M,W,F Stop Treatment: Jul 11, 2017 Additional Information Venous access: Other Additional Instructions [x] Peripheral flush and dressing changes per protocol [x] 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 [] May leave port accessed during therapy. [] May leave peripheral site accessed for duration of therapy. [x] If patient has SOB or respiratory distress, check oxygen saturation. If less than 90% or clinical signs of respiratory distress, administer oxygen at 2 L/min. via nasal cannula and notify physician. [x] Anaphylaxis/Reaction orders: * Stop infusion. * Keep IV line open with saline flush. * Notify physician. * Monitor vital signs every 15 minutes until symptoms resolve. * Check Oxygen saturation; Oxygen at 2 L/min. via nasal cannula if less than 90% or clinical signs of respiratory distress. * Administer diphenhydramine (Benadryl) 25 mg IV STAT, (unless patient has received as pre-med). May repeat once, if necessary. * Solu-Cortef 250 mg IVP over 30-60 seconds, use 100 mg vials for each dissolution. * Epinephrine (1mg/1 ml) 0.3 mg subcutaneously or IVP now with any signs of respiratory distress. * Check with physician for new additional pre-med orders if patient is re- challenged or re-treated. [x] May remove PICC line when treatment complete, after confirming with Physician. [x] If the patient is admitted to the hospital, the ED, or transferred via [facility] , complete transfer form including medication reconciliation order sheet. Louann Barney MD Jun 24, 2017 17:07
[2017-06-25] VITALS (12 sets, daily range): BP systolic 124–169; BP diastolic 71–83; PULSE 51–66; RESP 16–26; TEMP 98–98.6; O2SAT 97–100
[2017-06-25] MEDS: INSULIN NovoLIN REGULAR SUPPLEMENTAL SCALE SQ SCH ×6 (03:00→23:00)
[2017-06-25] MEDS: CHLORHEXIDINE GLUCONATE 2 % 1 PACK (2 CLOTHS) TOP SCH ×2 (04:00→23:39)
[2017-06-25] MEDS: HYDROCORTISONE SOD SUCCINATE 100 MG VIAL IV PUSH SCH ×2 (06:08→20:26)
[2017-06-25 06:38] LABS: HEMATOCRIT 37.6 % (39.0-51.0); MEAN CELL VOLUME 99.5 FL (80.0-100.0); MEAN CORPUSCULAR HEMOGLOBIN 31.9 PG (27.0-34.0); MEAN CORPUSCULAR HGB CONC 32.1 % (32.0-36.0); PLATELET COUNT 68 TH/MM3 (150-450); RED BLOOD COUNT 3.78 MIL/MM3 (4.50-5.90); RED CELL DISTRIBUTION WIDTH 19.2 % (11.6-17.2); WHITE BLOOD COUNT 8.1 TH/MM3 (4.0-11.0)
[2017-06-25 06:44] LABS: INTERNATIONAL NORMALIZED RATIO 2.9 RATIO; PROTHROMBIN TIME - PATIENT 33.9 SEC (9.8-11.6)
[2017-06-25 06:57] LABS: REVIEW FLAG FINAL
[2017-06-25 06:59] LABS: BICARBONATE 27.7 MEQ/L (21.0-32.0); POTASSIUM 4.3 MEQ/L (3.5-5.1)
[2017-06-25] MEDS: DOCUSATE SODIUM 50 MG/SENNA 8.6 MG TAB PO SCH ×2 (08:57→20:26)
[2017-06-25] MEDS: FLUCONAZOLE 200 MG TAB PO SCH (08:57)
[2017-06-25] MEDS: PANTOPRAZOLE SOD 40 MG DELAYED RELEASE TAB PO SCH (08:57)
[2017-06-25] MEDS: SODIUM CHLORIDE 0.9% FLUSH 10 ML FLUSH IV FLUSH SCH ×2 (09:00→20:26)
--- NOTE | 2017-06-25 10:06 | HHI.PR ---
Subjective Remarks Follow-up for hypoglycemia and infection Patient is no complains. He stated he is doing well. Patient's very anxious to go home. He stated he is tolerating oral intake. He remains afebrile. He is still on the D10 IVFs. Objective Vitals Vital Signs Date Time Temp Pulse Resp B/P (MAP) Pulse Ox O2 Delivery O2 Flow Rate FiO2 06/25/17 08:00 60 06/25/17 08:00 98.4 51 16 169/83 (111) 100 06/25/17 06:00 55 06/25/17 04:00 98.1 54 23 137/71 (93) 100 06/25/17 04:00 54 06/25/17 02:00 53 06/25/17 00:00 98.0 53 17 149/76 (100) 100 06/25/17 00:00 53 06/24/17 22:00 56 06/24/17 20:00 98.4 60 14 121/73 (89) 100 06/24/17 20:00 60 06/24/17 18:00 76 06/24/17 16:00 97.6 67 16 123/69 (87) 06/24/17 16:00 67 06/24/17 14:00 72 06/24/17 12:00 65 06/24/17 12:00 97.8 65 17 121/78 (92) I/O 06/24/17 06/24/17 06/24/17 06/25/17 06/25/17 06/25/17 07:00 15:00 23:00 07:00 15:00 23:00 Intake Total 240 ml 250 ml 430 ml 100 ml Output Total 0 ml 0 ml Balance 240 ml 250 ml 430 ml 100 ml Intake Oral 240 ml 430 ml 100 ml IV Total 250 ml Output Urine Total 0 ml 0 ml # Bowel Movements 0 0 Result Diagram: 06/25/1755606/25/17556 Objective Remarks GENERAL: in NAD NECK: Supple, trachea midline. No JVD or lymphadenopathy. CARDIOVASCULAR: Regular rate and rhythm without murmurs, gallops, or rubs. RESPIRATORY: Breath sounds equal bilaterally. No accessory muscle use. GASTROINTESTINAL: Abdomen soft, non-tender, nondistended. MUSCULOSKELETAL: B/L BKA Medications and IVs Current Medications Phytonadione (Mephyton) 5 mg ONCE ONCE PO ; Start 06/10/17 at 14:45; Stop at 14:46; Status Cancel Prothrombin Complex Concent (Human) 2500 units/Syringe / Bag 0 ml @ 500 mls/hr ONCE ONCE IV ; Start 06/10/17 at 15:15; Stop 06/10/17 at 15:16; Status UNV Vancomycin HCl 1000 mg/Sodium Chloride 250 ml @ 250 mls/hr ONCE ONCE IV Last administered on 06/10/17 16:11; Start 06/10/17 at 15:30; Stop 06/10/17 at 16:29; Status DC Cefepime HCl 1000 mg/Sodium Chloride 100 ml @ 200 mls/hr ONCE ONCE IV Last administered on 06/10/17 16:11; Start 06/10/17 at 15:30; Stop 06/10/17 at 15:59; Status DC Sodium Chloride 1,000 ml @ 999 mls/hr BOLUS ONCE IV Last administered on 15:37; Start 06/10/17 at 15:30; Stop 06/10/17 at 16:30; Status DC Sodium Chloride 1,000 ml @ 999 mls/hr BOLUS ONCE IV Last administered on 15:38; Start 06/10/17 at 15:30; Stop 06/10/17 at 16:30; Status DC Dextrose (D50w (Syr) Inj) 50 ml STK-MED ONCE .ROUTE Last administered on 15:24; Start 06/10/17 at 15:24; Stop 06/10/17 at 15:25; Status DC Dextrose (D50w (Syr) Inj) 50 ml ONCE ONCE IV PUSH Last administered on 16:04; Start 06/10/17 at 16:00; Stop 06/10/17 at 16:01; Status DC Dextrose (D50w (Syr) Inj) 50 ml ONCE ONCE IV PUSH Last administered on 16:12; Start 06/10/17 at 16:00; Stop 06/10/17 at 16:01; Status DC Vancomycin HCl 500 mg/Sodium Chloride 100 ml @ 200 mls/hr ONCE ONCE IV Last administered on 06/11/17 00:47; Start 06/10/17 at 20:00; Stop 06/10/17 at 20:29; Status DC Phenylephrine HCl 80 mg/Dextrose 500 ml @ 15 mls/hr TITRATE PRN IV Blood pressure Management Last administered on 06/10/17 23:28; Start 06/10/17 at 20:00 Terbutaline Sulfate (Brethine Inj) 1 mg UNSCH PRN SQ For Extravasation; Start 06/10/17 at 18:30 Sodium Chloride (NS Flush) 2 ml UNSCH PRN IV FLUSH FLUSH AFTER USING IV ACCESS ; Start 06/10/17 at 18:30 Sodium Chloride (NS Flush) 2 ml BID IV FLUSH Last administered on 06/24/17 21: 24; Start 06/10/17 at 21:00 Ondansetron HCl (Zofran Inj) 4 mg Q6H PRN IV NAUSEA OR VOMITING Last administered on 06/14/17 15:19; Start 06/10/17 at 18:30 Albuterol Sulfate (Albuterol Neb) 2.5 mg Q2HR NEB PRN INH SOB/WHEEZING; Start 06/10/17 at 18:30 Miscellaneous Information 1 Q361D XX ; Start 06/10/17 at 18:30 Chlorhexidine Gluconate (Chlorhexidine 2% Cloth) Taper DAILY@04 TOP Last administered on 06/25/17 04:00; Start 06/11/17 at 04:00; Stop 06/07/18 at 03:59 Chlorhexidine Gluconate (Chlorhexidine 2% Cloth) 3 pack UNSCH PRN TOP HYGIENIC CARE; Start 06/10/17 at 18:30 Senna/Docusate Sodium (Angelika-Colace) 1 tab BID PO Last administered on 08:57; Start 06/10/17 at 21:00 Magnesium Hydroxide (Milk Of Magnesia Liq) 30 ml Q12H PRN PO MILD - MODERATE CONSTIPATION; Start 06/10/17 at 18:30 Sennosides (Senokot) 17.2 mg Q12H PRN PO MODERATE - SEVERE CONSTIPATION; Start 06/10/17 at 18:30 Bisacodyl (Dulcolax Supp) 10 mg DAILY PRN RECTAL SEVERE CONSITIPATION; Start at 18:30 Lactulose (Lactulose Liq) 30 ml DAILY PRN PO SEVERE CONSITIPATION; Start at 18:30 Midodrine (Proamatine) 10 mg Q8H PO Last administered on 06/17/17 20:47; Start 06/10/17 at 20:00; Stop 06/22/17 at 17:18; Status DC Pantoprazole Sodium (Protonix) 40 mg DAILY PO Last administered on 06/25/17 08 :57; Start 06/10/17 at 19:30 Dextrose (D50w (Syr) Inj) 50 ml ONCE ONCE IV PUSH Last administered on 18:49; Start 06/10/17 at 18:45; Stop 06/10/17 at 18:46; Status DC Dextrose (D50w (Syr) Inj) 50 ml ONCE ONCE IV PUSH Last administered on 18:54; Start 06/10/17 at 19:00; Stop 06/10/17 at 19:01; Status DC Dextrose 1,000 ml @ 20 mls/hr Q24H IV Last administered on 06/10/17 20:03; Start 06/10/17 at 19:00; Stop 06/12/17 at 07:45; Status DC Heparin Sodium/ Dextrose 250 ml @ 13.5 mls/hr TITRATE PRN IV Coagulation management Last administered on 06/21/17 07:09; Start 06/10/17 at 20:00; Stop at 12:04; Status DC Phenylephrine HCl (Neosynephrine Inj) 40 mg STK-MED ONCE .ROUTE Last administered on 06/10/17 20:31; Start 06/10/17 at 20:31; Stop 06/10/17 at 20:32; Status DC Albumin Human (Albumin 25% Inj) 25 gm ONCE ONCE IV Last administered on 23:29; Start 06/10/17 at 23:00; Stop 06/10/17 at 23:01; Status DC Cefepime HCl 2000 mg/Sodium Chloride 100 ml @ 200 mls/hr Q48H PRN IV WITH DIALYSIS; Start 06/13/17 at 06:30; Stop 06/14/17 at 09:53; Status DC Dextrose (D50w (Vial) Inj) 50 ml UNSCH PRN IV HYPOGLYCEMIA-SEE COMMENTS; Start 06/11/17 at 10:00; Stop 06/17/17 at 19:21; Status DC Glucagon (Glucagon Inj) 1 mg UNSCH PRN OTHER HYPOGLYCEMIA-SEE COMMENTS; Start 06/11/17 at 10:00 Insulin Human Regular (NovoLIN R SUPPLEMENTAL SCALE) 1 Q1H SQ ; Start 06/11/17 at 10:00; Stop 06/11/17 at 12:00; Status DC Hydrocortisone Sodium Succinate (SoluCORTEF INJ) 50 mg Q6H IV PUSH Last administered on 06/16/17 11:01; Start 06/11/17 at 11:00; Stop 06/18/17 at 13:42; Status DC Insulin Human Regular (NovoLIN R SUPPLEMENTAL SCALE) 1 Q4H SQ ; Start 06/11/17 at 15:00 Pharmacy Profile Note 0 ml @ 0 mls/hr UNSCH OTHER ; Start 06/12/17 at 14:00; Stop 06/16/17 at 10:40; Status DC Sodium Chloride 1,000 ml @ 0 mls/hr Q0M PRN OTHER For Prime & Rinse Back Last administered on 06/24/17 12:00; Start 06/12/17 at 15:19 Heparin Sodium (Porcine) (Heparin Inj) 8,000 units UNSCH PRN IVF WITH DIALYSIS ; Start 06/12/17 at 15:30 Sodium Chloride 1,000 ml @ 200 mls/hr Q5H PRN IV WITH DIALYSIS; Start 06/12/17 at 15:19 Sodium Chloride 1,000 ml @ 0 mls/hr Q0M PRN OTHER WITH DIALYSIS; Start 06/12/17 at 15:19 Mannitol (Mannitol Inj) 12.5 gm UNSCH PRN IV WITH DIALYSIS Last administered on 06/24/17 08:53; Start 06/12/17 at 15:30 Albumin Human (Albumin 25% Inj) 25 gm UNSCH PRN IV WITH DIALYSIS Last administered on 06/23/17 16:46; Start 06/12/17 at 15:30 Sodium Chloride (NS Flush) 5 ml UNSCH PRN IV FLUSH WITH DIALYSIS; Start at 15:30 Heparin Sodium (Porcine) (Heparin Inj) UNSCH PRN .XX WITH DIALYSIS Last administered on 06/24/17 12:00; Start 06/12/17 at 15:30 Gentamicin Sulfate (Gentamicin (Dialysis) Inj) 20 mg UNSCH PRN IV WITH DIALYSIS Last administered on 06/24/17 12:00; Start 06/12/17 at 15:30 Ondansetron HCl (Zofran Inj) 4 mg UNSCH PRN IV WITH DIALYSIS Last administered on 06/15/17 16:09; Start 06/12/17 at 15:30 Acetaminophen (Tylenol) 650 mg UNSCH PRN PO for headach, pain, temp > 101F; Start 06/12/17 at 15:30 Diphenhydramine HCl (Benadryl) 25 mg UNSCH PRN PO for hives/itching/anaphylaxis ; Start 06/12/17 at 15:30 Nitroglycerin (Nitrostat Sl) 0.4 mg UNSCH PRN SL CHEST PAIN; Start 06/12/17 at 15:30 Clonidine (Catapres) 0.1 mg UNSCH PRN PO for BP > 180/100 X 2 readings; Start 06/12/17 at 15:30 Gelatin (Gelfoam 12 Mm/7 Mm Top) 1 foam UNSCH PRN TOP SEE LABEL COMMENTS; Start 06/12/17 at 15:30 Miscellaneous Information SPECIFIC LAB TO BE ... ONCE ONCE .XX Last administered on 06/14/17 05:15; Start 06/14/17 at 06:00; Stop 06/14/17 at 06:01; Status DC Vancomycin HCl 1000 mg/Sodium Chloride 250 ml @ 250 mls/hr WITH DIALYSIS IV Last administered on 06/24/17 11:00; Start 06/13/17 at 13:45 Sodium Chloride 154 meq/Dextrose 1,038.5 ml @ 100 mls/ hr [id number] IV Last administered on 06/23/17 06:04; Start 06/13/17 at 16:45; Stop 06/23/17 at 05:13 ; Status DC Heparin Sodium (Porcine) (*HEPARIN INJ Periprocedural ONLY) 10,000 units STK- MED ONCE .ROUTE Last administered on 06/14/17 15:48; Start 06/14/17 at 15:48; Stop 06/14/17 at 15:49; Status DC Lidocaine/ Epinephrine (Xylocaine-Epi 2%-1:100,000 Inj) 20 ml STK-MED ONCE .ROUTE ; Start 06/14/17 at 15:49; Stop 06/14/17 at 15:50; Status DC Lidocaine/ Epinephrine (Xylocaine-Epi 2%-1:100,000 Inj) 20 ml STK-MED ONCE .ROUTE Last administered on 06/14/17 15:51; Start 06/14/17 at 15:51; Stop at 15:52; Status DC Fentanyl Citrate (fentaNYL INJ) 100 mcg STK-MED ONCE .ROUTE Last administered on 06/14/17 15:54; Start 06/14/17 at 15:54; Stop 06/14/17 at 15:55; Status DC Fentanyl Citrate (fentaNYL INJ) 100 mcg STK-MED ONCE .ROUTE Last administered on 06/14/17 15:54; Start 06/14/17 at 15:54; Stop 06/14/17 at 15:55; Status DC Midazolam HCl (Versed Inj) 2 mg STK-MED ONCE .ROUTE ; Start 06/14/17 at 15:54; Stop 06/14/17 at 15:55; Status DC Midazolam HCl (Versed Inj) 2 mg STK-MED ONCE .ROUTE Last administered on 15:54; Start 06/14/17 at 15:54; Stop 06/14/17 at 15:55; Status DC Sodium Chloride (NS Flush) UNSCH PRN IVF SEE PROTOCOL; Start 06/14/17 at 18:00 Heparin Sodium (Porcine) (Heparin Inj) UNSCH PRN IV FLUSH SEE PROTOCOL; Start 06/14/17 at 18:00 Micafungin Sodium 100 mg/Sodium Chloride 100 ml @ 100 mls/hr Q24H IV Last administered on 06/18/17 09:39; Start 06/16/17 at 10:00; Stop 06/18/17 at 11:22; Status DC Fluconazole/ Sodium Chloride 200 ml @ 100 mls/hr Q24H IV Last administered on 06/23/17 11:15; Start 06/16/17 at 11:00; Stop 06/24/17 at 16:59; Status DC Pharmacy Profile Note 0 ml @ 0 mls/hr UNSCH OTHER ; Start 06/16/17 at 10:15 Warfarin Sodium (Coumadin) 4 mg DAILY@1600 PO Last administered on 06/20/17 15 :41; Start 06/16/17 at 16:00; Stop 06/21/17 at 10:41; Status DC Patient Medication Teaching (Coumadin Booklet) 1 ONCE ONCE .XX Last administered on 06/16/17 16:29; Start 06/16/17 at 16:00; Stop 06/16/17 at 16:01; Status DC Dextrose (D50w (Syr) Inj) 50 ml STK-MED ONCE .ROUTE Last administered on 11:52; Start 06/17/17 at 11:49; Stop 06/17/17 at 11:50; Status DC Dextrose (D50w (Syr) Inj) 50 ml UNSCH PRN IV HYPOGLYCEMIA-SEE COMMENTS Last administered on 06/22/17 09:08; Start 06/17/17 at 19:30 Hydrocortisone Sodium Succinate (SoluCORTEF INJ) 50 mg Q12HR IV PUSH ; Start 06/18/17 at 21:00; Stop 06/19/17 at 09:46; Status DC Methylprednisolone Sodium Succinate (SoluMEDROL INJ) 40 mg Q8HR IV PUSH Last administered on 06/19/17 21:49; Start 06/19/17 at 09:45; Stop 06/20/17 at 09:25 ; Status DC Warfarin Sodium (Coumadin) 3 mg DAILY@1600 PO Last administered on 06/22/17 17 :29; Start 06/21/17 at 16:00; Stop 06/23/17 at 14:53; Status DC Hydrocortisone Sodium Succinate (SoluCORTEF INJ) 100 mg Q8HR IV PUSH Last administered on 06/23/17 06:05; Start 06/22/17 at 14:00; Stop 06/23/17 at 10:58 ; Status DC Polyethylene Glycol (Miralax) 17 gm ONCE ONCE PO Last administered on 13:20; Start 06/22/17 at 12:30; Stop 06/22/17 at 12:40; Status DC Midodrine (Proamatine) 5 mg Q8H PO ; Start 06/22/17 at 20:00; Stop 06/23/17 at 12:41; Status DC Sodium Chloride 154 meq/Dextrose 1,038.5 ml @ 30 mls/hr Q24H IV Last administered on 06/24/17 21:25; Start 06/23/17 at 05:15 Hydrocortisone Sodium Succinate (SoluCORTEF INJ) 50 mg Q8HR IV PUSH Last administered on 06/25/17 06:08; Start 06/23/17 at 14:00 Midodrine (Proamatine) 5 mg WITH DIALYSIS PO ; Start 06/23/17 at 13:30; Stop at 11:47; Status DC Warfarin Sodium (Coumadin) 4 mg DAILY@1600 PO Last administered on 06/23/17 17 :54; Start 06/23/17 at 16:00; Status Future Hold Fludrocortisone Acetate (Florinef) 0.1 mg WITH DIALYSIS PO ; Start 06/24/17 at 11:45 Fluconazole (Diflucan) 400 mg DAILY PO Last administered on 06/25/17 08:57; Start 06/25/17 at 09:00; Stop 07/11/17 at 08:59 A/P Assessment and Plan Septic shock/ Staph Epi/coag negative staph bacteremia/ candidemia Status post IV fluids resuscitation, Midodrine, stress dose steroids given the patient refusing them at this time. ECHO- EF 55-60%, no RWMA, trace TR, PAP 36mmHG. Blood cultures grew yeast and staph epi. S/p permacath exchange. - Continue vancomycin and Diflucan per ID. Hypoglycemia Possibly s/t sepsis and end-stage renal disease. ? cortisol deficiency. Workup in progress. Pancreatic ultrasound negative for insulinoma. CT abdomen negative for insulinoma as well. Glucose improved 06/24. - treat sepsis as above. - Blood sugars stable. DC D10W to see how patient does offer infusion. - Insulin level elevated at 31.1, B-HB low, c peptide levels elevated. - regular diet and Nephro added. - Will need to follow up with an certified meeting professional. - Wean hydrocortisone at 50 mg IV to twice a day. History of Asthma Chronic basilar interstitial opacities. CXR 06/10 : Chronic interstitial changes, no acute infiltrate. Breathing comfortably. - continue Oxygen and keep Oxygen saturation over 92%. - Continue bronchodilator, mucolytics and incentive spirometry. ESRD On Hemodialysis Tuesday/Tuesday/Tuesday. 06/14 PermCath exchange by IR. - Nephrology specialist following. Fistulogram has been rescheduled as outpatient. - continue midodrine. SLE/ DVT VICKI negative in the past. DVT noted. - continue Coumadin. Therapeutic. Dc heparin drip. Peripheral vascular disease Status post bilateral BKA's. - PT/OT. PROPH: Coumadin Discharge Planning If patient does well off of D10W possible discharge tomorrow. Delicia Aguila MD Jun 25, 2017 10:06
[2017-06-26] VITALS (13 sets, daily range): BP systolic 117–138; BP diastolic 69–82; PULSE 50–64; RESP 14–20; TEMP 97.9–98.6; O2SAT 98
[2017-06-26] MEDS: INSULIN NovoLIN REGULAR SUPPLEMENTAL SCALE SQ SCH ×6 (03:00→23:00)
[2017-06-26 06:05] LABS: PROTHROMBIN TIME - PATIENT 34.8 SEC (9.8-11.6)
[2017-06-26 06:24] LABS: HEMATOCRIT 39.3 % (39.0-51.0); MEAN CELL VOLUME 100.1 FL (80.0-100.0); MEAN CORPUSCULAR HEMOGLOBIN 31.6 PG (27.0-34.0); MEAN CORPUSCULAR HGB CONC 31.6 % (32.0-36.0); PLATELET COUNT 81 TH/MM3 (150-450); RED BLOOD COUNT 3.93 MIL/MM3 (4.50-5.90); RED CELL DISTRIBUTION WIDTH 19.5 % (11.6-17.2); WHITE BLOOD COUNT 7.9 TH/MM3 (4.0-11.0)
[2017-06-26 06:30] LABS: REVIEW FLAG FINAL
[2017-06-26 06:31] LABS: BICARBONATE 25.3 MEQ/L (21.0-32.0); POTASSIUM 4.7 MEQ/L (3.5-5.1)
[2017-06-26] MEDS: DEXTROSE 50% IN WATER 50 ML SYRINGE IV PRN (07:08)
[2017-06-26] MEDS: FLUCONAZOLE 200 MG TAB PO SCH (07:40)
[2017-06-26] MEDS: HYDROCORTISONE SOD SUCCINATE 100 MG VIAL IV PUSH SCH (07:40)
[2017-06-26] MEDS: PANTOPRAZOLE SOD 40 MG DELAYED RELEASE TAB PO SCH (07:41)
[2017-06-26] MEDS: DOCUSATE SODIUM 50 MG/SENNA 8.6 MG TAB PO SCH ×2 (07:41→20:34)
[2017-06-26] MEDS: SODIUM CHLORIDE 0.9% FLUSH 10 ML FLUSH IV FLUSH SCH ×2 (09:00→20:34)
--- NOTE | 2017-06-26 09:53 | HHI.PR ---
Subjective Remarks Follow-up for hypoglycemia Patient was given half an amp of D50 this morning. Patient stated that he usually snacks a lot which usually helps his blood sugars but he is not able to snack here. Deny any lightheadedness, dizziness, abdominal pain, chest pain, palpitation or any concerns. Very anxious to go home. His nurse at the bedside during interview. Objective Vitals Vital Signs Date Time Temp Pulse Resp B/P (MAP) Pulse Ox O2 Delivery O2 Flow Rate FiO2 06/26/17 08:00 56 06/26/17 08:00 98.6 50 20 137/82 (100) 98 06/26/17 06:00 56 06/26/17 04:00 54 06/26/17 04:00 98.6 54 20 137/82 (100) 98 06/26/17 02:00 55 06/26/17 00:00 58 06/26/17 00:00 98.5 58 18 138/80 (99) 98 06/25/17 22:00 60 06/25/17 20:00 66 06/25/17 20:00 98.5 66 26 128/77 (94) 97 06/25/17 18:00 60 06/25/17 16:00 60 06/25/17 16:00 98.6 56 16 138/79 (98) 100 06/25/17 14:00 60 06/25/17 12:00 98.4 56 16 124/74 (91) 100 06/25/17 12:00 60 06/25/17 10:00 60 I/O 06/25/17 06/25/17 06/25/17 06/26/17 06/26/17 06/26/17 07:00 15:00 23:00 07:00 15:00 23:00 Intake Total 100 ml 1971 ml 200 ml Output Total 0 ml 0 ml Balance 100 ml 1971 ml 200 ml Intake Oral 100 ml 240 ml 200 ml IV Total 1731 ml Output Urine Total 0 ml 0 ml # Bowel Movements 0 0 Result Diagram: 06/26/1752906/26/17 0530 Objective Remarks GENERAL: in NAD NECK: Supple, trachea midline. No JVD or lymphadenopathy. CARDIOVASCULAR: Regular rate and rhythm without murmurs, gallops, or rubs. RESPIRATORY: Breath sounds equal bilaterally. No accessory muscle use. GASTROINTESTINAL: Abdomen soft, non-tender, nondistended. MUSCULOSKELETAL: B/L BKA Medications and IVs Current Medications Phytonadione (Mephyton) 5 mg ONCE ONCE PO ; Start 06/10/17 at 14:45; Stop at 14:46; Status Cancel Prothrombin Complex Concent (Human) 2500 units/Syringe / Bag 0 ml @ 500 mls/hr ONCE ONCE IV ; Start 06/10/17 at 15:15; Stop 06/10/17 at 15:16; Status UNV Vancomycin HCl 1000 mg/Sodium Chloride 250 ml @ 250 mls/hr ONCE ONCE IV Last administered on 06/10/17 16:11; Start 06/10/17 at 15:30; Stop 06/10/17 at 16:29; Status DC Cefepime HCl 1000 mg/Sodium Chloride 100 ml @ 200 mls/hr ONCE ONCE IV Last administered on 06/10/17 16:11; Start 06/10/17 at 15:30; Stop 06/10/17 at 15:59; Status DC Sodium Chloride 1,000 ml @ 999 mls/hr BOLUS ONCE IV Last administered on 15:37; Start 06/10/17 at 15:30; Stop 06/10/17 at 16:30; Status DC Sodium Chloride 1,000 ml @ 999 mls/hr BOLUS ONCE IV Last administered on 15:38; Start 06/10/17 at 15:30; Stop 06/10/17 at 16:30; Status DC Dextrose (D50w (Syr) Inj) 50 ml STK-MED ONCE .ROUTE Last administered on 15:24; Start 06/10/17 at 15:24; Stop 06/10/17 at 15:25; Status DC Dextrose (D50w (Syr) Inj) 50 ml ONCE ONCE IV PUSH Last administered on 16:04; Start 06/10/17 at 16:00; Stop 06/10/17 at 16:01; Status DC Dextrose (D50w (Syr) Inj) 50 ml ONCE ONCE IV PUSH Last administered on 16:12; Start 06/10/17 at 16:00; Stop 06/10/17 at 16:01; Status DC Vancomycin HCl 500 mg/Sodium Chloride 100 ml @ 200 mls/hr ONCE ONCE IV Last administered on 06/11/17 00:47; Start 06/10/17 at 20:00; Stop 06/10/17 at 20:29; Status DC Phenylephrine HCl 80 mg/Dextrose 500 ml @ 15 mls/hr TITRATE PRN IV Blood pressure Management Last administered on 06/10/17 23:28; Start 06/10/17 at 20:00 Terbutaline Sulfate (Brethine Inj) 1 mg UNSCH PRN SQ For Extravasation; Start 06/10/17 at 18:30 Sodium Chloride (NS Flush) 2 ml UNSCH PRN IV FLUSH FLUSH AFTER USING IV ACCESS ; Start 06/10/17 at 18:30 Sodium Chloride (NS Flush) 2 ml BID IV FLUSH Last administered on 06/25/17 20: 26; Start 06/10/17 at 21:00 Ondansetron HCl (Zofran Inj) 4 mg Q6H PRN IV NAUSEA OR VOMITING Last administered on 06/14/17 15:19; Start 06/10/17 at 18:30 Albuterol Sulfate (Albuterol Neb) 2.5 mg Q2HR NEB PRN INH SOB/WHEEZING; Start 06/10/17 at 18:30 Miscellaneous Information 1 Q361D XX ; Start 06/10/17 at 18:30 Chlorhexidine Gluconate (Chlorhexidine 2% Cloth) Taper DAILY@04 TOP Last administered on 06/25/17 04:00; Start 06/11/17 at 04:00; Stop 06/07/18 at 03:59 Chlorhexidine Gluconate (Chlorhexidine 2% Cloth) 3 pack UNSCH PRN TOP HYGIENIC CARE; Start 06/10/17 at 18:30 Senna/Docusate Sodium (Angelika-Colace) 1 tab BID PO Last administered on 07:41; Start 06/10/17 at 21:00 Magnesium Hydroxide (Milk Of Magnesia Liq) 30 ml Q12H PRN PO MILD - MODERATE CONSTIPATION; Start 06/10/17 at 18:30 Sennosides (Senokot) 17.2 mg Q12H PRN PO MODERATE - SEVERE CONSTIPATION; Start 06/10/17 at 18:30 Bisacodyl (Dulcolax Supp) 10 mg DAILY PRN RECTAL SEVERE CONSITIPATION; Start at 18:30 Lactulose (Lactulose Liq) 30 ml DAILY PRN PO SEVERE CONSITIPATION; Start at 18:30 Midodrine (Proamatine) 10 mg Q8H PO Last administered on 06/17/17 20:47; Start 06/10/17 at 20:00; Stop 06/22/17 at 17:18; Status DC Pantoprazole Sodium (Protonix) 40 mg DAILY PO Last administered on 06/26/17 07 :41; Start 06/10/17 at 19:30 Dextrose (D50w (Syr) Inj) 50 ml ONCE ONCE IV PUSH Last administered on 18:49; Start 06/10/17 at 18:45; Stop 06/10/17 at 18:46; Status DC Dextrose (D50w (Syr) Inj) 50 ml ONCE ONCE IV PUSH Last administered on 18:54; Start 06/10/17 at 19:00; Stop 06/10/17 at 19:01; Status DC Dextrose 1,000 ml @ 20 mls/hr Q24H IV Last administered on 06/10/17 20:03; Start 06/10/17 at 19:00; Stop 06/12/17 at 07:45; Status DC Heparin Sodium/ Dextrose 250 ml @ 13.5 mls/hr TITRATE PRN IV Coagulation management Last administered on 06/21/17 07:09; Start 06/10/17 at 20:00; Stop at 12:04; Status DC Phenylephrine HCl (Neosynephrine Inj) 40 mg STK-MED ONCE .ROUTE Last administered on 06/10/17 20:31; Start 06/10/17 at 20:31; Stop 06/10/17 at 20:32; Status DC Albumin Human (Albumin 25% Inj) 25 gm ONCE ONCE IV Last administered on 23:29; Start 06/10/17 at 23:00; Stop 06/10/17 at 23:01; Status DC Cefepime HCl 2000 mg/Sodium Chloride 100 ml @ 200 mls/hr Q48H PRN IV WITH DIALYSIS; Start 06/13/17 at 06:30; Stop 06/14/17 at 09:53; Status DC Dextrose (D50w (Vial) Inj) 50 ml UNSCH PRN IV HYPOGLYCEMIA-SEE COMMENTS; Start 06/11/17 at 10:00; Stop 06/17/17 at 19:21; Status DC Glucagon (Glucagon Inj) 1 mg UNSCH PRN OTHER HYPOGLYCEMIA-SEE COMMENTS; Start 06/11/17 at 10:00 Insulin Human Regular (NovoLIN R SUPPLEMENTAL SCALE) 1 Q1H SQ ; Start 06/11/17 at 10:00; Stop 06/11/17 at 12:00; Status DC Hydrocortisone Sodium Succinate (SoluCORTEF INJ) 50 mg Q6H IV PUSH Last administered on 06/16/17 11:01; Start 06/11/17 at 11:00; Stop 06/18/17 at 13:42; Status DC Insulin Human Regular (NovoLIN R SUPPLEMENTAL SCALE) 1 Q4H SQ ; Start 06/11/17 at 15:00 Pharmacy Profile Note 0 ml @ 0 mls/hr UNSCH OTHER ; Start 06/12/17 at 14:00; Stop 06/16/17 at 10:40; Status DC Sodium Chloride 1,000 ml @ 0 mls/hr Q0M PRN OTHER For Prime & Rinse Back Last administered on 06/24/17 12:00; Start 06/12/17 at 15:19 Heparin Sodium (Porcine) (Heparin Inj) 8,000 units UNSCH PRN IVF WITH DIALYSIS ; Start 06/12/17 at 15:30 Sodium Chloride 1,000 ml @ 200 mls/hr Q5H PRN IV WITH DIALYSIS; Start 06/12/17 at 15:19 Sodium Chloride 1,000 ml @ 0 mls/hr Q0M PRN OTHER WITH DIALYSIS; Start 06/12/17 at 15:19 Mannitol (Mannitol Inj) 12.5 gm UNSCH PRN IV WITH DIALYSIS Last administered on 06/24/17 08:53; Start 06/12/17 at 15:30 Albumin Human (Albumin 25% Inj) 25 gm UNSCH PRN IV WITH DIALYSIS Last administered on 06/23/17 16:46; Start 06/12/17 at 15:30 Sodium Chloride (NS Flush) 5 ml UNSCH PRN IV FLUSH WITH DIALYSIS; Start at 15:30 Heparin Sodium (Porcine) (Heparin Inj) UNSCH PRN .XX WITH DIALYSIS Last administered on 06/24/17 12:00; Start 06/12/17 at 15:30 Gentamicin Sulfate (Gentamicin (Dialysis) Inj) 20 mg UNSCH PRN IV WITH DIALYSIS Last administered on 06/24/17 12:00; Start 06/12/17 at 15:30 Ondansetron HCl (Zofran Inj) 4 mg UNSCH PRN IV WITH DIALYSIS Last administered on 06/15/17 16:09; Start 06/12/17 at 15:30 Acetaminophen (Tylenol) 650 mg UNSCH PRN PO for headach, pain, temp > 101F; Start 06/12/17 at 15:30 Diphenhydramine HCl (Benadryl) 25 mg UNSCH PRN PO for hives/itching/anaphylaxis ; Start 06/12/17 at 15:30 Nitroglycerin (Nitrostat Sl) 0.4 mg UNSCH PRN SL CHEST PAIN; Start 06/12/17 at 15:30 Clonidine (Catapres) 0.1 mg UNSCH PRN PO for BP > 180/100 X 2 readings; Start 06/12/17 at 15:30 Gelatin (Gelfoam 12 Mm/7 Mm Top) 1 foam UNSCH PRN TOP SEE LABEL COMMENTS; Start 06/12/17 at 15:30 Miscellaneous Information SPECIFIC LAB TO BE JAGDEEP... ONCE ONCE .XX Last administered on 06/14/17 05:15; Start 06/14/17 at 06:00; Stop 06/14/17 at 06:01; Status DC Vancomycin HCl 1000 mg/Sodium Chloride 250 ml @ 250 mls/hr WITH DIALYSIS IV Last administered on 06/24/17 11:00; Start 06/13/17 at 13:45 Sodium Chloride 154 meq/Dextrose 1,038.5 ml @ 100 mls/ hr [id number] IV Last administered on 06/23/17 06:04; Start 06/13/17 at 16:45; Stop 06/23/17 at 05:13 ; Status DC Heparin Sodium (Porcine) (*HEPARIN INJ Periprocedural ONLY) 10,000 units STK- MED ONCE .ROUTE Last administered on 06/14/17 15:48; Start 06/14/17 at 15:48; Stop 06/14/17 at 15:49; Status DC Lidocaine/ Epinephrine (Xylocaine-Epi 2%-1:100,000 Inj) 20 ml STK-MED ONCE .ROUTE ; Start 06/14/17 at 15:49; Stop 06/14/17 at 15:50; Status DC Lidocaine/ Epinephrine (Xylocaine-Epi 2%-1:100,000 Inj) 20 ml STK-MED ONCE .ROUTE Last administered on 06/14/17 15:51; Start 06/14/17 at 15:51; Stop at 15:52; Status DC Fentanyl Citrate (fentaNYL INJ) 100 mcg STK-MED ONCE .ROUTE Last administered on 06/14/17 15:54; Start 06/14/17 at 15:54; Stop 06/14/17 at 15:55; Status DC Fentanyl Citrate (fentaNYL INJ) 100 mcg STK-MED ONCE .ROUTE Last administered on 06/14/17 15:54; Start 06/14/17 at 15:54; Stop 06/14/17 at 15:55; Status DC Midazolam HCl (Versed Inj) 2 mg STK-MED ONCE .ROUTE ; Start 06/14/17 at 15:54; Stop 06/14/17 at 15:55; Status DC Midazolam HCl (Versed Inj) 2 mg STK-MED ONCE .ROUTE Last administered on 15:54; Start 06/14/17 at 15:54; Stop 06/14/17 at 15:55; Status DC Sodium Chloride (NS Flush) UNSCH PRN IVF SEE PROTOCOL; Start 06/14/17 at 18:00 Heparin Sodium (Porcine) (Heparin Inj) UNSCH PRN IV FLUSH SEE PROTOCOL; Start 06/14/17 at 18:00 Micafungin Sodium 100 mg/Sodium Chloride 100 ml @ 100 mls/hr Q24H IV Last administered on 06/18/17 09:39; Start 06/16/17 at 10:00; Stop 06/18/17 at 11:22; Status DC Fluconazole/ Sodium Chloride 200 ml @ 100 mls/hr Q24H IV Last administered on 06/23/17 11:15; Start 06/16/17 at 11:00; Stop 06/24/17 at 16:59; Status DC Pharmacy Profile Note 0 ml @ 0 mls/hr UNSCH OTHER ; Start 06/16/17 at 10:15 Warfarin Sodium (Coumadin) 4 mg DAILY@1600 PO Last administered on 06/20/17 15 :41; Start 06/16/17 at 16:00; Stop 06/21/17 at 10:41; Status DC Patient Medication Teaching (Coumadin Booklet) 1 ONCE ONCE .XX Last administered on 06/16/17 16:29; Start 06/16/17 at 16:00; Stop 06/16/17 at 16:01; Status DC Dextrose (D50w (Syr) Inj) 50 ml STK-MED ONCE .ROUTE Last administered on 11:52; Start 06/17/17 at 11:49; Stop 06/17/17 at 11:50; Status DC Dextrose (D50w (Syr) Inj) 50 ml UNSCH PRN IV HYPOGLYCEMIA-SEE COMMENTS Last administered on 06/26/17 07:08; Start 06/17/17 at 19:30 Hydrocortisone Sodium Succinate (SoluCORTEF INJ) 50 mg Q12HR IV PUSH ; Start 06/18/17 at 21:00; Stop 06/19/17 at 09:46; Status DC Methylprednisolone Sodium Succinate (SoluMEDROL INJ) 40 mg Q8HR IV PUSH Last administered on 06/19/17 21:49; Start 06/19/17 at 09:45; Stop 06/20/17 at 09:25 ; Status DC Warfarin Sodium (Coumadin) 3 mg DAILY@1600 PO Last administered on 06/22/17 17 :29; Start 06/21/17 at 16:00; Stop 06/23/17 at 14:53; Status DC Hydrocortisone Sodium Succinate (SoluCORTEF INJ) 100 mg Q8HR IV PUSH Last administered on 06/23/17 06:05; Start 06/22/17 at 14:00; Stop 06/23/17 at 10:58 ; Status DC Polyethylene Glycol (Miralax) 17 gm ONCE ONCE PO Last administered on 13:20; Start 06/22/17 at 12:30; Stop 06/22/17 at 12:40; Status DC Midodrine (Proamatine) 5 mg Q8H PO ; Start 06/22/17 at 20:00; Stop 06/23/17 at 12:41; Status DC Sodium Chloride 154 meq/Dextrose 1,038.5 ml @ 30 mls/hr Q24H IV Last administered on 06/24/17 21:25; Start 06/23/17 at 05:15; Stop 06/25/17 at 10:04 ; Status DC Hydrocortisone Sodium Succinate (SoluCORTEF INJ) 50 mg Q8HR IV PUSH Last administered on 06/25/17 06:08; Start 06/23/17 at 14:00; Stop 06/25/17 at 10:01 ; Status DC Midodrine (Proamatine) 5 mg WITH DIALYSIS PO ; Start 06/23/17 at 13:30; Stop at 11:47; Status DC Warfarin Sodium (Coumadin) 4 mg DAILY@1600 PO Last administered on 06/23/17 17 :54; Start 06/23/17 at 16:00; Status Future Hold Fludrocortisone Acetate (Florinef) 0.1 mg WITH DIALYSIS PO ; Start 06/24/17 at 11:45 Fluconazole (Diflucan) 400 mg DAILY PO Last administered on 06/26/17 07:40; Start 06/25/17 at 09:00; Stop 07/11/17 at 08:59 Hydrocortisone Sodium Succinate (SoluCORTEF INJ) 50 mg Q12HR IV PUSH Last administered on 06/26/17 07:40; Start 06/25/17 at 21:00 A/P Assessment and Plan Septic shock/ Staph Epi/coag negative staph bacteremia/ candidemia Status post IV fluids resuscitation, Midodrine, stress dose steroids given the patient refusing them at this time. ECHO- EF 55-60%, no RWMA, trace TR, PAP 36mmHG. Blood cultures grew yeast and staph epi. S/p permacath exchange. - Continue vancomycin and Diflucan per ID. Hypoglycemia Possibly s/t sepsis and end-stage renal disease. ? cortisol deficiency. Workup in progress. Pancreatic ultrasound negative for insulinoma. CT abdomen negative for insulinoma as well. Glucose improved 06/24. - treat sepsis as above. - Blood sugars stable. - Insulin level elevated at 31.1, B-HB low, c peptide levels elevated. - regular diet and Nephro. We will also add snacks since this is patient's diet at home. - Will need to follow up with an clinical support associate. - We'll place patient oral hydrocortisone and taper off. History of Asthma Chronic basilar interstitial opacities. CXR 06/10 : Chronic interstitial changes, no acute infiltrate. Breathing comfortably. - continue Oxygen and keep Oxygen saturation over 92%. - Continue bronchodilator, mucolytics and incentive spirometry. ESRD On Hemodialysis Tuesday/Tuesday/Tuesday. 06/14 PermCath exchange by IR. - Nephrology specialist following. Fistulogram has been rescheduled as outpatient. - continue midodrine. SLE/ DVT VICKI negative in the past. DVT noted. - continue Coumadin. Therapeutic. Dc heparin drip. Peripheral vascular disease Status post bilateral BKA's. - PT/OT. PROPH: Coumadin Discharge Planning Due to hypoglycemia and patient receiving IV D50 will need to continue to monitor in the hospital. Anticipating discharge in 1-2 days Delicia Aguila MD Jun 26, 2017 09:53
[2017-06-26] MEDS: HYDROCORTISONE 10 MG TAB PO SCH (20:00)
[2017-06-26] MEDS: CHLORHEXIDINE GLUCONATE 2 % 1 PACK (2 CLOTHS) TOP SCH (20:34)
[2017-06-27] VITALS (14 sets, daily range): BP systolic 105–145; BP diastolic 58–76; PULSE 54–72; RESP 10–22; TEMP 97.9–98.7; O2SAT 88–100
[2017-06-27] MEDS: INSULIN NovoLIN REGULAR SUPPLEMENTAL SCALE SQ SCH ×6 (03:00→22:45)
[2017-06-27] MEDS: DEXTROSE 50% IN WATER 50 ML SYRINGE IV PRN ×3 (04:00→08:24)
[2017-06-27 05:45] LABS: HEMATOCRIT 39.1 % (39.0-51.0); MEAN CELL VOLUME 98.9 FL (80.0-100.0); MEAN CORPUSCULAR HEMOGLOBIN 31.9 PG (27.0-34.0); MEAN CORPUSCULAR HGB CONC 32.2 % (32.0-36.0); PLATELET COUNT 81 TH/MM3 (150-450); RED BLOOD COUNT 3.95 MIL/MM3 (4.50-5.90); RED CELL DISTRIBUTION WIDTH 19.3 % (11.6-17.2); WHITE BLOOD COUNT 5.9 TH/MM3 (4.0-11.0)
[2017-06-27 05:49] LABS: REVIEW FLAG FINAL
[2017-06-27 05:54] LABS: INTERNATIONAL NORMALIZED RATIO 2.9 RATIO
[2017-06-27 06:07] LABS: BICARBONATE 27.1 MEQ/L (21.0-32.0); POTASSIUM 4.3 MEQ/L (3.5-5.1)
[2017-06-27] MEDS: FLUCONAZOLE 200 MG TAB PO SCH (08:13)
[2017-06-27] MEDS: HYDROCORTISONE 10 MG TAB PO SCH ×2 (08:14→20:07)
[2017-06-27] MEDS: PANTOPRAZOLE SOD 40 MG DELAYED RELEASE TAB PO SCH (08:14)
[2017-06-27] MEDS: SODIUM CHLORIDE 0.9% FLUSH 10 ML FLUSH IV FLUSH SCH ×2 (08:14→20:07)
[2017-06-27] MEDS: DOCUSATE SODIUM 50 MG/SENNA 8.6 MG TAB PO SCH ×2 (08:14→20:06)
--- NOTE | 2017-06-27 09:35 | HHI.PR ---
Subjective Remarks Follow-up for sepsis and hypoglycemia Patient blood sugar this morning was 46 and he was given D50. He denies any symptoms. Denies any lightheadedness, jitteriness, nausea/vomiting, or pain. Patient stated that he was not given any snacks as told by me yesterday. He also stated that he is not eating nearly enough as he does have home. Patient also stated that his portions are too small. Patient seen in dialysis. At with patient's nurse in dialysis and dealt with patient's floor nurse. Objective Vitals Vital Signs Date Time Temp Pulse Resp B/P (MAP) Pulse Ox O2 Delivery O2 Flow Rate FiO2 06/27/17 06:00 61 06/27/17 04:00 56 06/27/17 04:00 98.6 57 18 134/76 (95) 98 06/27/17 02:00 57 06/27/17 00:00 56 06/27/17 00:00 98.1 56 10 145/69 (94) 98 06/26/17 22:00 54 06/26/17 20:00 62 06/26/17 20:00 97.9 62 14 124/74 (91) 98 06/26/17 18:00 56 06/26/17 16:00 56 06/26/17 16:00 98.3 53 20 127/72 (90) 98 06/26/17 14:00 56 06/26/17 12:00 56 06/26/17 12:00 98.6 64 20 117/69 (85) 98 06/26/17 11:00 98.6 64 20 117/69 (85) 98 06/26/17 10:00 56 I/O 06/26/17 06/26/17 06/26/17 06/27/17 06/27/17 06/27/17 07:00 15:00 23:00 07:00 15:00 23:00 Intake Total 200 ml 380 ml 300 ml Output Total 0 ml 0 ml 0 ml Balance 200 ml 380 ml 300 ml Intake Oral 200 ml 380 ml 300 ml Output Urine Total 0 ml 0 ml 0 ml # Bowel Movements 0 1 0 Result Diagram: 06/27/17 0520 06/27/17 0520 Imaging Last Impressions Abdomen/Pelvis CT 06/23/17 0000 Signed Impressions: Service Date/Time: June 21:22 - CONCLUSION: 1. No perceptible insulinoma or other mass. 2. Mesenteric edema and diffuse anasarca. Nothing organized or drainable. 3. Mild patchy infiltrate of the visualized lung bases. Jeff Méndez MD Pancreas Ultrasound 06/19/17 0000 Signed Impressions: Service Date/Time: Monday, June 19, 2017 13:34 - CONCLUSION: 1. Gallbladder sludge with mild wall thickening 2. No evidence of suspicious mass 3. Hyperechoic right kidney 4. 2 right renal cysts. Jatin Fontanez MD Catheter Placement X-Ray 06/14/17 0000 Signed Impressions: Service Date/Time: Wednesday, June 14, 2017 15:54 - CONCLUSION: Uncomplicated fluoroscopic-guided central venous permacath exchange as above. Jeff Batista MD Chest X-Ray 06/10/17 1436 Signed Impressions: Service Date/Time: Saturday, June 10, 2017 15:36 - CONCLUSION: 1. Stable chronic interstitial changes. 2. No acute infiltrate. Narendra Barreto Jr., MD Objective Remarks GENERAL: in NAD NECK: Supple, trachea midline. No JVD or lymphadenopathy. CARDIOVASCULAR: Regular rate and rhythm without murmurs, gallops, or rubs. RESPIRATORY: Breath sounds equal bilaterally. No accessory muscle use. GASTROINTESTINAL: Abdomen soft, non-tender, nondistended. MUSCULOSKELETAL: B/L BKA Medications and IVs Current Medications Phytonadione (Mephyton) 5 mg ONCE ONCE PO ; Start 06/10/17 at 14:45; Stop at 14:46; Status Cancel Prothrombin Complex Concent (Human) 2500 units/Syringe / Bag 0 ml @ 500 mls/hr ONCE ONCE IV ; Start 06/10/17 at 15:15; Stop 06/10/17 at 15:16; Status UNV Vancomycin HCl 1000 mg/Sodium Chloride 250 ml @ 250 mls/hr ONCE ONCE IV Last administered on 06/10/17 16:11; Start 06/10/17 at 15:30; Stop 06/10/17 at 16:29; Status DC Cefepime HCl 1000 mg/Sodium Chloride 100 ml @ 200 mls/hr ONCE ONCE IV Last administered on 06/10/17 16:11; Start 06/10/17 at 15:30; Stop 06/10/17 at 15:59; Status DC Sodium Chloride 1,000 ml @ 999 mls/hr BOLUS ONCE IV Last administered on 15:37; Start 06/10/17 at 15:30; Stop 06/10/17 at 16:30; Status DC Sodium Chloride 1,000 ml @ 999 mls/hr BOLUS ONCE IV Last administered on 15:38; Start 06/10/17 at 15:30; Stop 06/10/17 at 16:30; Status DC Dextrose (D50w (Syr) Inj) 50 ml STK-MED ONCE .ROUTE Last administered on 15:24; Start 06/10/17 at 15:24; Stop 06/10/17 at 15:25; Status DC Dextrose (D50w (Syr) Inj) 50 ml ONCE ONCE IV PUSH Last administered on 16:04; Start 06/10/17 at 16:00; Stop 06/10/17 at 16:01; Status DC Dextrose (D50w (Syr) Inj) 50 ml ONCE ONCE IV PUSH Last administered on 16:12; Start 06/10/17 at 16:00; Stop 06/10/17 at 16:01; Status DC Vancomycin HCl 500 mg/Sodium Chloride 100 ml @ 200 mls/hr ONCE ONCE IV Last administered on 06/11/17 00:47; Start 06/10/17 at 20:00; Stop 06/10/17 at 20:29; Status DC Phenylephrine HCl 80 mg/Dextrose 500 ml @ 15 mls/hr TITRATE PRN IV Blood pressure Management Last administered on 06/10/17 23:28; Start 06/10/17 at 20:00 Terbutaline Sulfate (Brethine Inj) 1 mg UNSCH PRN SQ For Extravasation; Start 06/10/17 at 18:30 Sodium Chloride (NS Flush) 2 ml UNSCH PRN IV FLUSH FLUSH AFTER USING IV ACCESS ; Start 06/10/17 at 18:30 Sodium Chloride (NS Flush) 2 ml BID IV FLUSH Last administered on 06/27/17 08: 14; Start 06/10/17 at 21:00 Ondansetron HCl (Zofran Inj) 4 mg Q6H PRN IV NAUSEA OR VOMITING Last administered on 06/14/17 15:19; Start 06/10/17 at 18:30 Albuterol Sulfate (Albuterol Neb) 2.5 mg Q2HR NEB PRN INH SOB/WHEEZING; Start 06/10/17 at 18:30 Miscellaneous Information 1 Q361D XX ; Start 06/10/17 at 18:30 Chlorhexidine Gluconate (Chlorhexidine 2% Cloth) Taper DAILY@04 TOP Last administered on 06/25/17 04:00; Start 06/11/17 at 04:00; Stop 06/07/18 at 03:59 Chlorhexidine Gluconate (Chlorhexidine 2% Cloth) 3 pack UNSCH PRN TOP HYGIENIC CARE; Start 06/10/17 at 18:30 Senna/Docusate Sodium (Angelika-Colace) 1 tab BID PO Last administered on 08:14; Start 06/10/17 at 21:00 Magnesium Hydroxide (Milk Of Magnesia Liq) 30 ml Q12H PRN PO MILD - MODERATE CONSTIPATION; Start 06/10/17 at 18:30 Sennosides (Senokot) 17.2 mg Q12H PRN PO MODERATE - SEVERE CONSTIPATION; Start 06/10/17 at 18:30 Bisacodyl (Dulcolax Supp) 10 mg DAILY PRN RECTAL SEVERE CONSITIPATION; Start at 18:30 Lactulose (Lactulose Liq) 30 ml DAILY PRN PO SEVERE CONSITIPATION; Start at 18:30 Midodrine (Proamatine) 10 mg Q8H PO Last administered on 06/17/17 20:47; Start 06/10/17 at 20:00; Stop 06/22/17 at 17:18; Status DC Pantoprazole Sodium (Protonix) 40 mg DAILY PO Last administered on 06/26/17 07 :41; Start 06/10/17 at 19:30 Dextrose (D50w (Syr) Inj) 50 ml ONCE ONCE IV PUSH Last administered on 18:49; Start 06/10/17 at 18:45; Stop 06/10/17 at 18:46; Status DC Dextrose (D50w (Syr) Inj) 50 ml ONCE ONCE IV PUSH Last administered on 18:54; Start 06/10/17 at 19:00; Stop 06/10/17 at 19:01; Status DC Dextrose 1,000 ml @ 20 mls/hr Q24H IV Last administered on 06/10/17 20:03; Start 06/10/17 at 19:00; Stop 06/12/17 at 07:45; Status DC Heparin Sodium/ Dextrose 250 ml @ 13.5 mls/hr TITRATE PRN IV Coagulation management Last administered on 06/21/17 07:09; Start 06/10/17 at 20:00; Stop at 12:04; Status DC Phenylephrine HCl (Neosynephrine Inj) 40 mg STK-MED ONCE .ROUTE Last administered on 06/10/17 20:31; Start 06/10/17 at 20:31; Stop 06/10/17 at 20:32; Status DC Albumin Human (Albumin 25% Inj) 25 gm ONCE ONCE IV Last administered on 23:29; Start 06/10/17 at 23:00; Stop 06/10/17 at 23:01; Status DC Cefepime HCl 2000 mg/Sodium Chloride 100 ml @ 200 mls/hr Q48H PRN IV WITH DIALYSIS; Start 06/13/17 at 06:30; Stop 06/14/17 at 09:53; Status DC Dextrose (D50w (Vial) Inj) 50 ml UNSCH PRN IV HYPOGLYCEMIA-SEE COMMENTS; Start 06/11/17 at 10:00; Stop 06/17/17 at 19:21; Status DC Glucagon (Glucagon Inj) 1 mg UNSCH PRN OTHER HYPOGLYCEMIA-SEE COMMENTS; Start 06/11/17 at 10:00 Insulin Human Regular (NovoLIN R SUPPLEMENTAL SCALE) 1 Q1H SQ ; Start 06/11/17 at 10:00; Stop 06/11/17 at 12:00; Status DC Hydrocortisone Sodium Succinate (SoluCORTEF INJ) 50 mg Q6H IV PUSH Last administered on 06/16/17 11:01; Start 06/11/17 at 11:00; Stop 06/18/17 at 13:42; Status DC Insulin Human Regular (NovoLIN R SUPPLEMENTAL SCALE) 1 Q4H SQ ; Start 06/11/17 at 15:00 Pharmacy Profile Note 0 ml @ 0 mls/hr UNSCH OTHER ; Start 06/12/17 at 14:00; Stop 06/16/17 at 10:40; Status DC Sodium Chloride 1,000 ml @ 0 mls/hr Q0M PRN OTHER For Prime & Rinse Back Last administered on 06/24/17 12:00; Start 06/12/17 at 15:19 Heparin Sodium (Porcine) (Heparin Inj) 8,000 units UNSCH PRN IVF WITH DIALYSIS ; Start 06/12/17 at 15:30 Sodium Chloride 1,000 ml @ 200 mls/hr Q5H PRN IV WITH DIALYSIS; Start 06/12/17 at 15:19 Sodium Chloride 1,000 ml @ 0 mls/hr Q0M PRN OTHER WITH DIALYSIS; Start 06/12/17 at 15:19 Mannitol (Mannitol Inj) 12.5 gm UNSCH PRN IV WITH DIALYSIS Last administered on 06/24/17 08:53; Start 06/12/17 at 15:30 Albumin Human (Albumin 25% Inj) 25 gm UNSCH PRN IV WITH DIALYSIS Last administered on 06/23/17 16:46; Start 06/12/17 at 15:30 Sodium Chloride (NS Flush) 5 ml UNSCH PRN IV FLUSH WITH DIALYSIS; Start at 15:30 Heparin Sodium (Porcine) (Heparin Inj) UNSCH PRN .XX WITH DIALYSIS Last administered on 06/24/17 12:00; Start 06/12/17 at 15:30 Gentamicin Sulfate (Gentamicin (Dialysis) Inj) 20 mg UNSCH PRN IV WITH DIALYSIS Last administered on 06/24/17 12:00; Start 06/12/17 at 15:30 Ondansetron HCl (Zofran Inj) 4 mg UNSCH PRN IV WITH DIALYSIS Last administered on 06/15/17 16:09; Start 06/12/17 at 15:30 Acetaminophen (Tylenol) 650 mg UNSCH PRN PO for headach, pain, temp > 101F; Start 06/12/17 at 15:30 Diphenhydramine HCl (Benadryl) 25 mg UNSCH PRN PO for hives/itching/anaphylaxis ; Start 06/12/17 at 15:30 Nitroglycerin (Nitrostat Sl) 0.4 mg UNSCH PRN SL CHEST PAIN; Start 06/12/17 at 15:30 Clonidine (Catapres) 0.1 mg UNSCH PRN PO for BP > 180/100 X 2 readings; Start 06/12/17 at 15:30 Gelatin (Gelfoam 12 Mm/7 Mm Top) 1 foam UNSCH PRN TOP SEE LABEL COMMENTS; Start 06/12/17 at 15:30 Miscellaneous Information SPECIFIC LAB TO BE JAGDEEP... ONCE ONCE .XX Last administered on 06/14/17 05:15; Start 06/14/17 at 06:00; Stop 06/14/17 at 06:01; Status DC Vancomycin HCl 1000 mg/Sodium Chloride 250 ml @ 250 mls/hr WITH DIALYSIS IV Last administered on 06/24/17 11:00; Start 06/13/17 at 13:45 Sodium Chloride 154 meq/Dextrose 1,038.5 ml @ 100 mls/ hr [id number] IV Last administered on 06/23/17 06:04; Start 06/13/17 at 16:45; Stop 06/23/17 at 05:13 ; Status DC Heparin Sodium (Porcine) (*HEPARIN INJ Periprocedural ONLY) 10,000 units STK- MED ONCE .ROUTE Last administered on 06/14/17 15:48; Start 06/14/17 at 15:48; Stop 06/14/17 at 15:49; Status DC Lidocaine/ Epinephrine (Xylocaine-Epi 2%-1:100,000 Inj) 20 ml STK-MED ONCE .ROUTE ; Start 06/14/17 at 15:49; Stop 06/14/17 at 15:50; Status DC Lidocaine/ Epinephrine (Xylocaine-Epi 2%-1:100,000 Inj) 20 ml STK-MED ONCE .ROUTE Last administered on 06/14/17 15:51; Start 06/14/17 at 15:51; Stop at 15:52; Status DC Fentanyl Citrate (fentaNYL INJ) 100 mcg STK-MED ONCE .ROUTE Last administered on 06/14/17 15:54; Start 06/14/17 at 15:54; Stop 06/14/17 at 15:55; Status DC Fentanyl Citrate (fentaNYL INJ) 100 mcg STK-MED ONCE .ROUTE Last administered on 06/14/17 15:54; Start 06/14/17 at 15:54; Stop 06/14/17 at 15:55; Status DC Midazolam HCl (Versed Inj) 2 mg STK-MED ONCE .ROUTE ; Start 06/14/17 at 15:54; Stop 06/14/17 at 15:55; Status DC Midazolam HCl (Versed Inj) 2 mg STK-MED ONCE .ROUTE Last administered on 15:54; Start 06/14/17 at 15:54; Stop 06/14/17 at 15:55; Status DC Sodium Chloride (NS Flush) UNSCH PRN IVF SEE PROTOCOL; Start 06/14/17 at 18:00 Heparin Sodium (Porcine) (Heparin Inj) UNSCH PRN IV FLUSH SEE PROTOCOL; Start 06/14/17 at 18:00 Micafungin Sodium 100 mg/Sodium Chloride 100 ml @ 100 mls/hr Q24H IV Last administered on 06/18/17 09:39; Start 06/16/17 at 10:00; Stop 06/18/17 at 11:22; Status DC Fluconazole/ Sodium Chloride 200 ml @ 100 mls/hr Q24H IV Last administered on 06/23/17 11:15; Start 06/16/17 at 11:00; Stop 06/24/17 at 16:59; Status DC Pharmacy Profile Note 0 ml @ 0 mls/hr UNSCH OTHER ; Start 06/16/17 at 10:15 Warfarin Sodium (Coumadin) 4 mg DAILY@1600 PO Last administered on 06/20/17 15 :41; Start 06/16/17 at 16:00; Stop 06/21/17 at 10:41; Status DC Patient Medication Teaching (Coumadin Booklet) 1 ONCE ONCE .XX Last administered on 06/16/17 16:29; Start 06/16/17 at 16:00; Stop 06/16/17 at 16:01; Status DC Dextrose (D50w (Syr) Inj) 50 ml STK-MED ONCE .ROUTE Last administered on 11:52; Start 06/17/17 at 11:49; Stop 06/17/17 at 11:50; Status DC Dextrose (D50w (Syr) Inj) 50 ml UNSCH PRN IV HYPOGLYCEMIA-SEE COMMENTS Last administered on 06/27/17 08:24; Start 06/17/17 at 19:30 Hydrocortisone Sodium Succinate (SoluCORTEF INJ) 50 mg Q12HR IV PUSH ; Start 06/18/17 at 21:00; Stop 06/19/17 at 09:46; Status DC Methylprednisolone Sodium Succinate (SoluMEDROL INJ) 40 mg Q8HR IV PUSH Last administered on 06/19/17 21:49; Start 06/19/17 at 09:45; Stop 06/20/17 at 09:25 ; Status DC Warfarin Sodium (Coumadin) 3 mg DAILY@1600 PO Last administered on 06/22/17 17 :29; Start 06/21/17 at 16:00; Stop 06/23/17 at 14:53; Status DC Hydrocortisone Sodium Succinate (SoluCORTEF INJ) 100 mg Q8HR IV PUSH Last administered on 06/23/17 06:05; Start 06/22/17 at 14:00; Stop 06/23/17 at 10:58 ; Status DC Polyethylene Glycol (Miralax) 17 gm ONCE ONCE PO Last administered on 13:20; Start 06/22/17 at 12:30; Stop 06/22/17 at 12:40; Status DC Midodrine (Proamatine) 5 mg Q8H PO ; Start 06/22/17 at 20:00; Stop 06/23/17 at 12:41; Status DC Sodium Chloride 154 meq/Dextrose 1,038.5 ml @ 30 mls/hr Q24H IV Last administered on 06/24/17 21:25; Start 06/23/17 at 05:15; Stop 06/25/17 at 10:04 ; Status DC Hydrocortisone Sodium Succinate (SoluCORTEF INJ) 50 mg Q8HR IV PUSH Last administered on 06/25/17 06:08; Start 06/23/17 at 14:00; Stop 06/25/17 at 10:01 ; Status DC Midodrine (Proamatine) 5 mg WITH DIALYSIS PO ; Start 06/23/17 at 13:30; Stop at 11:47; Status DC Warfarin Sodium (Coumadin) 4 mg DAILY@1600 PO Last administered on 06/23/17 17 :54; Start 06/23/17 at 16:00; Status Future Hold Fludrocortisone Acetate (Florinef) 0.1 mg WITH DIALYSIS PO ; Start 06/24/17 at 11:45 Fluconazole (Diflucan) 400 mg DAILY PO Last administered on 06/27/17 08:13; Start 06/25/17 at 09:00; Stop 07/11/17 at 08:59 Hydrocortisone Sodium Succinate (SoluCORTEF INJ) 50 mg Q12HR IV PUSH Last administered on 06/26/17 07:40; Start 06/25/17 at 21:00; Stop 06/26/17 at 09:55 ; Status DC Hydrocortisone (Cortef) 50 mg Q12H PO Last administered on 06/27/17 08:14; Start 06/26/17 at 20:00 A/P Assessment and Plan Septic shock/ Staph Epi/coag negative staph bacteremia/ candidemia Status post IV fluids resuscitation, Midodrine, stress dose steroids given the patient refusing them at this time. ECHO- EF 55-60%, no RWMA, trace TR, PAP 36mmHG. Blood cultures grew yeast and staph epi. S/p permacath exchange. - Continue vancomycin and Diflucan per ID. Hypoglycemia Possibly s/t sepsis and end-stage renal disease. ? cortisol deficiency. Workup in progress. Pancreatic ultrasound negative for insulinoma. CT abdomen negative for insulinoma as well. Glucose improved 06/24. - treat sepsis as above. - Insulin level elevated at 31.1, B-HB low, c peptide levels elevated. - Will need to follow up with an middle school sports coach. - Patient was put on hydrocortisone and despite being on steroids she continued to be hypoglycemic. -Prior hospitalization blood sugars were normal. Maybe secondary to sepsis and end-stage renal disease. Will increase patient's portion size and allow snacks to mimic his ideal situation at home. Dealt with patient's nurse. -Continue hypoglycemic management. History of Asthma Chronic basilar interstitial opacities. CXR 06/10 : Chronic interstitial changes, no acute infiltrate. Breathing comfortably. - continue Oxygen and keep Oxygen saturation over 92%. - Continue bronchodilator, mucolytics and incentive spirometry. ESRD On Hemodialysis Tuesday/Tuesday/Tuesday. 06/14 PermCath exchange by IR. - Nephrology specialist following. Fistulogram has been rescheduled as outpatient. - continue midodrine. SLE/ DVT VICKI negative in the past. DVT noted. - continue Coumadin. Therapeutic. Dc heparin drip. Peripheral vascular disease Status post bilateral BKA's. - PT/OT. PROPH: Coumadin Discharge Planning Due to hypoglycemia patient requires continual hospitalization. Delicia Aguila MD Jun 27, 2017 09:35
--- NOTE | 2017-06-27 12:25 | HHI.NPPN ---
Subjective History of Present Illness This patient is a 46-year-old male with a history of end-stage renal disease, SLE, hypertension, peripheral vascular disease as well as secondary hyperparathyroidism of renal disease. Unfortunately the patient has had multiple dialysis accesses including dialysis shunts and dialysis catheters in the past complicated by access failure as well as infection. Patient now has very limited options for dialysis access. Presently we are relying on a left femoral dialysis line for access. Fortunately vessel surgery was able to create a left arm AV dialysis fistula back in February. It has matured somewhat but not ideally and presently we are using one needle in the fistula while port at the dialysis line has been used for dialysis access. We have not yet tried to use 2 needles in the AV dialysis shunt. Patient presents now with a history of chills, fever postdialysis yesterday and was noted to be hypotensive on presentation with blood pressures in the 60s. Patient's blood pressure has since improved however. Blood cultures negative 24 hours at time of consultation. Patient did receive cefepime and vancomycin since admission. Infectious disease on board.. Interval History Patient was seen during dialysis today. Noted still having hypoglycemic episodes. Review of Systems Respiratory Lungs: SOB (with exertion) Objective Data Data Vital Signs Date Time Temp Pulse Resp B/P (MAP) Pulse Ox O2 Delivery O2 Flow Rate FiO2 06/27/17 08:00 59 06/27/17 08:00 98.2 59 22 120/74 (89) 95 06/27/17 07:00 54 06/27/17 06:00 61 06/27/17 04:00 56 06/27/17 04:00 98.6 57 18 134/76 (95) 98 06/27/17 02:00 57 06/27/17 00:00 56 06/27/17 00:00 98.1 56 10 145/69 (94) 98 06/26/17 22:00 54 06/26/17 20:00 62 06/26/17 20:00 97.9 62 14 124/74 (91) 98 06/26/17 18:00 56 06/26/17 16:00 56 06/26/17 16:00 98.3 53 20 127/72 (90) 98 06/26/17 14:00 56 -: 06/27/17 0520 06/27/17 0520 Physical Exam General Appearance: Well Developed, Well Nourished, No Acute Distress, Comfortable Eyes Eye Exam: Sclera White Pulmonary Resp Exam: Clear Bilaterally, Breath Sounds Equal Cardiology CV Exam: Regular, Normal Sinus Rhythm, Good Perfusion Gastrointestinal/Abdomen GI Exam: Soft, Non-Tender Integumentary Skin Exam: Clear, Warm, Normal Turgor Extremeties Extremities Exam: Moderate Edema (1+ sacrum and hips), Pitting Edema Neurologic Neuro Exam: Alert, Awake Psychiatric Psych Exam: Appropriate Responses Assessment/Plan Discussed Condition With: Patient Problem List: (1) ESRD (end stage renal disease) on dialysis ICD Codes: N18.6 - End stage renal disease; Z99.2 - Dependence on renal dialysis Status: Chronic Plan: Fistulogram has been rescheduled as an outpatient. PermCath however appears to be working well and blood cultures remaining negative.. Patient was seen during dialysis today. BCx were previously positive for Edita parapsilosis. Infectious disease following. Fortunately the patient's blood cultures are remaining negative. To continue with vancomycin as well as Diflucan until July 11, 2017. Medication should be adjusted for the patient's end-stage renal disease when indicated. Avoid gadolinium. (2) Sepsis ICD Codes: A41.9 - Sepsis, unspecified organism Status: Acute Plan: Improving. Still on abx ads per ID Has been cleared for discharge by ID (3) Complications, dialysis, catheter, mechanical ICD Codes: T82.49XA - Other complication of vascular dialysis catheter, initial encounter Status: Acute Plan: Await fistulogram results as outpatient and interim continue to use femoral catheter Has severe PVD complicating access. (4) Lupus (systemic lupus erythematosus) ICD Codes: M32.9 - Systemic lupus erythematosus, unspecified (5) Deep vein thrombosis (DVT) ICD Codes: I82.409 - Acute embolism and thrombosis of unspecified deep veins of unspecified lower extremity Permanent Comment: The patient has been on anticoagulation therapy in the past however he is very poorly compliant in this regard . Last Edited By: Raul Merlos on Jun 11, 2017 13:34 (6) Hypoglycemia ICD Codes: E16.2 - Hypoglycemia, unspecified Plan: Etiology of hypoglycemia uncertain. Patients with end-stage renal disease are more susceptible to hypoglycemia secondary to prolonged half life of insulin however. Noted steroids have been reinitiated for possible adrenal insufficiency also. Heparin is mentioned as a potential etiology of hypoglycemia however according to the literature I reviewed indicated a very low quality of evidence. Defer evaluation and management to primary care. Clarence Merlos MD Jun 27, 2017 12:25
[2017-06-28] VITALS: BP 125/70; PULSE 56; RESP 16; TEMP 97.8; O2SAT 95
[2017-06-28] MEDS: INSULIN NovoLIN REGULAR SUPPLEMENTAL SCALE SQ SCH ×3 (03:00→11:00)
[2017-06-28 04:00] VITALS: BP 139/71; PULSE 57; RESP 18; TEMP 97.8; O2SAT 97
[2017-06-28] MEDS: CHLORHEXIDINE GLUCONATE 2 % 1 PACK (2 CLOTHS) TOP SCH (04:00)
[2017-06-28 08:00] VITALS: BP 146/74; PULSE 57; RESP 18; TEMP 97.9; O2SAT 96
[2017-06-28] MEDS: FLUCONAZOLE 200 MG TAB PO SCH (08:47)
[2017-06-28] MEDS: DOCUSATE SODIUM 50 MG/SENNA 8.6 MG TAB PO SCH (08:47)
[2017-06-28] MEDS: SODIUM CHLORIDE 0.9% FLUSH 10 ML FLUSH IV FLUSH SCH (08:47)
[2017-06-28] MEDS: PANTOPRAZOLE SOD 40 MG DELAYED RELEASE TAB PO SCH (08:47)
[2017-06-28] MEDS: HYDROCORTISONE 10 MG TAB PO SCH (10:01)
[2017-06-28 10:49] LABS: INTERNATIONAL NORMALIZED RATIO 2.4 RATIO; PROTHROMBIN TIME - PATIENT 27.7 SEC (9.8-11.6)
--- NOTE | 2017-06-28 11:43 | HHI.NPPN ---
Subjective History of Present Illness This patient is a 46-year-old male with a history of end-stage renal disease, SLE, hypertension, peripheral vascular disease as well as secondary hyperparathyroidism of renal disease. Unfortunately the patient has had multiple dialysis accesses including dialysis shunts and dialysis catheters in the past complicated by access failure as well as infection. Patient now has very limited options for dialysis access. Presently we are relying on a left femoral dialysis line for access. Fortunately vessel surgery was able to create a left arm AV dialysis fistula back in February. It has matured somewhat but not ideally and presently we are using one needle in the fistula while port at the dialysis line has been used for dialysis access. We have not yet tried to use 2 needles in the AV dialysis shunt. Patient presents now with a history of chills, fever postdialysis yesterday and was noted to be hypotensive on presentation with blood pressures in the 60s. Patient's blood pressure has since improved however. Blood cultures negative 24 hours at time of consultation. Patient did receive cefepime and vancomycin since admission. Infectious disease on board.. Interval History Pt feeling better today. Did have hypoglycemic episode again today Very anxious to go home Objective Data Data Vital Signs Date Time Temp Pulse Resp B/P (MAP) Pulse Ox O2 Delivery O2 Flow Rate FiO2 06/28/17 08:00 97.9 57 18 146/74 (98) 96 06/28/17 04:00 97.8 57 18 139/71 (93) 97 06/28/17 00:00 97.8 56 16 125/70 (88) 95 06/27/17 22:53 67 06/27/17 21:30 Room Air 06/27/17 21:30 97.9 67 18 112/74 (87) 95 06/27/17 20:00 67 06/27/17 20:00 98.7 67 13 125/66 (85) 100 06/27/17 18:00 69 06/27/17 17:00 64 06/27/17 16:00 72 06/27/17 16:00 98.5 72 13 105/58 (74) 88 06/27/17 15:00 71 06/27/17 14:00 65 -: 06/27/17 0520 06/27/17 0520 Imaging Last Impressions Abdomen/Pelvis CT 06/23/17 0000 Signed Impressions: Service Date/Time: June 21:22 - CONCLUSION: 1. No perceptible insulinoma or other mass. 2. Mesenteric edema and diffuse anasarca. Nothing organized or drainable. 3. Mild patchy infiltrate of the visualized lung bases. Jeff Méndez MD Pancreas Ultrasound 06/19/17 0000 Signed Impressions: Service Date/Time: Monday, June 19, 2017 13:34 - CONCLUSION: 1. Gallbladder sludge with mild wall thickening 2. No evidence of suspicious mass 3. Hyperechoic right kidney 4. 2 right renal cysts. Jatin Fontanez MD Catheter Placement X-Ray 06/14/17 0000 Signed Impressions: Service Date/Time: Wednesday, June 14, 2017 15:54 - CONCLUSION: Uncomplicated fluoroscopic-guided central venous permacath exchange as above. Jeff Batista MD Chest X-Ray 06/10/17 1436 Signed Impressions: Service Date/Time: Saturday, June 10, 2017 15:36 - CONCLUSION: 1. Stable chronic interstitial changes. 2. No acute infiltrate. Narendra Barreto Jr., MD Medication Review Current Medications Medications (Trade) Dose Ordered Sig/Nohelia Route Start Time Stop Time Status Last Admin Phenylephrine HCl 80 mg/Dextrose 500 ml @ 15 mls/hr TITRATE PRN IV 06/10/17 20:00 06/10/17 23:28 (Brethine Inj) 1 mg UNSCH PRN SQ 06/10/17 18:30 (NS Flush) 2 ml UNSCH PRN IV FLUSH 06/10/17 18:30 (NS Flush) 2 ml BID IV FLUSH 06/10/17 21:00 06/28/17 08:47 (Zofran Inj) 4 mg Q6H PRN IV 06/10/17 18:30 06/14/17 15:19 (Albuterol Neb) 2.5 mg Q2HR NEB PRN INH 06/10/17 18:30 (Angelika-Colace) 1 tab BID PO 06/10/17 21:00 06/28/17 08:47 (Milk Of Magnesia Liq) 30 ml Q12H PRN PO 06/10/17 18:30 (Senokot) 17.2 mg Q12H PRN PO 06/10/17 18:30 (Dulcolax Supp) 10 mg DAILY PRN RECTAL 06/10/17 18:30 (Lactulose Liq) 30 ml DAILY PRN PO 06/10/17 18:30 (Protonix) 40 mg DAILY PO 06/10/17 19:30 06/26/17 07:41 (Glucagon Inj) 1 mg UNSCH PRN OTHER 06/11/17 10:00 (NovoLIN R SUPPLEMENTAL SCALE) 1 Q4H SQ 06/11/17 15:00 Sodium Chloride 1,000 ml @ 0 mls/hr Q0M PRN OTHER 06/12/17 15:19 06/24/17 12:00 (Heparin Inj) 8,000 units UNSCH PRN IVF 06/12/17 15:30 Sodium Chloride 1,000 ml @ 200 mls/hr Q5H PRN IV 06/12/17 15:19 Sodium Chloride 1,000 ml @ 0 mls/hr Q0M PRN OTHER 06/12/17 15:19 (Mannitol Inj) 12.5 gm UNSCH PRN IV 06/12/17 15:30 06/24/17 08:53 (Albumin 25% Inj) 25 gm UNSCH PRN IV 06/12/17 15:30 06/23/17 16:46 (NS Flush) 5 ml UNSCH PRN IV FLUSH 06/12/17 15:30 (Heparin Inj) UNSCH PRN .XX 06/12/17 15:30 06/24/17 12:00 (Gentamicin (Dialysis) Inj) 20 mg UNSCH PRN IV 06/12/17 15:30 06/24/17 12:00 (Zofran Inj) 4 mg UNSCH PRN IV 06/12/17 15:30 06/15/17 16:09 (Tylenol) 650 mg UNSCH PRN PO 06/12/17 15:30 (Benadryl) 25 mg UNSCH PRN PO 06/12/17 15:30 (Nitrostat Sl) 0.4 mg UNSCH PRN SL 06/12/17 15:30 (Catapres) 0.1 mg UNSCH PRN PO 06/12/17 15:30 (Gelfoam 12 Mm/7 Mm Top) 1 foam UNSCH PRN TOP 06/12/17 15:30 Vancomycin HCl 1000 mg/Sodium Chloride 250 ml @ 250 mls/hr WITH DIALYSIS IV 06/13/17 13:45 06/24/17 11:00 (NS Flush) UNSCH PRN IVF 06/14/17 18:00 (Heparin Inj) UNSCH PRN IV FLUSH 06/14/17 18:00 Pharmacy Profile Note 0 ml @ 0 mls/hr UNSCH OTHER 06/16/17 10:15 (D50w (Syr) Inj) 50 ml UNSCH PRN IV 06/17/17 19:30 06/27/17 08:24 (Coumadin) 4 mg DAILY@1600 PO 06/23/17 16:00 Future Hold 06/23/17 17:54 (Florinef) 0.1 mg WITH DIALYSIS PO 06/24/17 11:45 (Diflucan) 400 mg DAILY PO 06/25/17 09:00 07/11/17 08:59 06/28/17 08:47 (Cortef) 50 mg Q12H PO 06/26/17 20:00 06/28/17 10:01 Physical Exam General Appearance: Well Developed, Well Nourished, No Acute Distress, Comfortable Eyes Eye Exam: Sclera White Pulmonary Resp Exam: Clear Bilaterally, Breath Sounds Equal Cardiology CV Exam: Regular, Normal Sinus Rhythm, Good Perfusion Gastrointestinal/Abdomen GI Exam: Soft, Non-Tender Integumentary Skin Exam: Clear, Warm, Normal Turgor Extremeties Extremities Exam: Trace Edema (hips and sacrum) Neurologic Neuro Exam: Alert, Awake Psychiatric Psych Exam: Appropriate Responses Assessment/Plan Discussed Condition With: Patient Problem List: (1) ESRD (end stage renal disease) on dialysis ICD Codes: N18.6 - End stage renal disease; Z99.2 - Dependence on renal dialysis Status: Chronic Plan: Fistulogram has been rescheduled as an outpatient. PermCath however appears to be working well and blood cultures remaining negative.. BCx were previously positive for Edita parapsilosis. Infectious disease following. Fortunately the patient's blood cultures are remaining negative. To continue with vancomycin as well as Diflucan until July 11, 2017. Medication should be adjusted for the patient's end-stage renal disease when indicated. Avoid gadolinium. (2) Sepsis ICD Codes: A41.9 - Sepsis, unspecified organism Status: Acute Plan: Improving. Still on abx ads per ID Has been cleared for discharge by ID (3) Complications, dialysis, catheter, mechanical ICD Codes: T82.49XA - Other complication of vascular dialysis catheter, initial encounter Status: Acute Plan: Await fistulogram results as outpatient and interim continue to use femoral catheter Has severe PVD complicating access. (4) Lupus (systemic lupus erythematosus) ICD Codes: M32.9 - Systemic lupus erythematosus, unspecified (5) Deep vein thrombosis (DVT) ICD Codes: I82.409 - Acute embolism and thrombosis of unspecified deep veins of unspecified lower extremity Permanent Comment: The patient has been on anticoagulation therapy in the past however he is very poorly compliant in this regard . Last Edited By: Raul Merlos on Jun 11, 2017 13:34 (6) Hypoglycemia ICD Codes: E16.2 - Hypoglycemia, unspecified Plan: Etiology of hypoglycemia uncertain. Patients with end-stage renal disease are more susceptible to hypoglycemia secondary to prolonged half life of insulin however. Defer evaluation and management to primary care. Advised he does need to see endocrinology as outpatient Gladis Cole Jun 28, 2017 11:43
[2017-06-28 12:09] VITALS: BP 128/71; PULSE 69; RESP 18; TEMP 97.3; O2SAT 96
[2017-06-28] MEDS ORDERED: HYDR20TA PO (12:27)
[2017-06-28] MEDS ORDERED: FLUD.1 PO (12:27)
[2017-06-28] MEDS ORDERED: DIFL200T PO (12:27)
[2017-06-28] MEDS ORDERED: BLOO-54 (12:27)
[2017-06-28] MEDS ORDERED: COUM3TAB PO (12:27)
[2017-06-28] MEDS ORDERED: SENN1TAB PO (12:27)
--- NOTE | 2017-06-28 12:40 | HHI.FF ---
Face to Face Verification Diagnosis: (1) Hypoglycemia (2) End-stage renal disease on hemodialysis (3) ESRD (end stage renal disease) on dialysis (4) Lupus (systemic lupus erythematosus) (5) Deep vein thrombosis (DVT) (6) Sepsis Home Health Nursing Order: Medical education Signs/symptoms of disease process Medication education-adverse effect Nursing assessment with vital signs IV medication administration I have seen patient Gino Mercado on 06/28/17. My clinical findings support the need for the requested home health care services because: Ltd mobility - disease progression Injectable med education/admin I certify that my clinical findings support that this patient is homebound because: [id number] bed/chair Delicia Aguila MD Jun 28, 2017 12:40
--- NOTE | 2017-06-28 12:42 | HHI.DS ---
Discharge Summary Admission Date Jun 10, 2017 at 18:21 Discharge Date: Jun 28, 2017 Admitting Diagnosis Septic shock (1) Septic shock ICD Code: A41.9 - Sepsis, unspecified organism; R65.21 - Severe sepsis with septic shock Diagnosis: Principal Status: Acute (2) Hypoglycemia ICD Code: E16.2 - Hypoglycemia, unspecified Diagnosis: Principal (3) ESRD (end stage renal disease) on dialysis ICD Code: N18.6 - End stage renal disease; Z99.2 - Dependence on renal dialysis Diagnosis: Secondary Status: Chronic (4) DVT (deep venous thrombosis) ICD Code: I82.409 - Acute embolism and thrombosis of unspecified deep veins of unspecified lower extremity Diagnosis: Secondary Status: Acute (5) End-stage renal disease on hemodialysis ICD Code: N18.6 - End stage renal disease; Z99.2 - Dependence on renal dialysis Diagnosis: Secondary Status: Chronic (6) Deep vein thrombosis (DVT) ICD Code: I82.409 - Acute embolism and thrombosis of unspecified deep veins of unspecified lower extremity Diagnosis: Secondary (7) AVF (arteriovenous fistula) ICD Code: I77.0 - Arteriovenous fistula, acquired Diagnosis: Secondary Status: Acute Procedures See hospital course Brief History - From Admission 46 year-old -[place] male past medical history of end-stage renal disease diagnosed 9 years ago who is on intermittent hemodialysis Tuesday under the care of CLAU Umaña, peripheral arterial disease status post bilateral BKA, coagulation disorder on chronic anticoagulation with warfarin. He underwent hemodialysis today and he states afterwards he had a fever and felt lightheaded so he came to [facility] emergency department.. His temperature was 103 upon arrival. Heart rate is in the 80s to 90s. He states his blood pressure "typically runs low" in the 80s but blood pressure is 60/47 the emergency department. He states he has had a slight nonproductive cough for 2-3 days. He denies nausea, vomiting, abdominal pain, chest pain, hemoptysis, melena, bright red blood per rectum, headache, neck stiffness, tenderness or drainage at dialysis catheter site, remainder of ROS neg. He has recently been treated for enterococcus in a wound near his right upper extremity fistula. He was discharged 03/21/17 with wound care and was on vancomycin with vascular surgery followup. He states his wound has healed and he believes he is no longer receiving vancomycin at dialysis. He is a challenging historian. Dr. Altamirano has attempted L IJ CVL access unsuccessfully. Patient states he has multiple prior failed attempts at central vascular access and that his IJ and subclavians are "clotted off". He has h/o SVC thrombus in 2009 and he states h/o unsuccessful attempt at access in R femoral as well. He has a left femoral tunneled dialysis catheter exchange 09/13/16 by IR and 05/16/17. Blood cultures have been obtained in the emergency department. He has been given cefepime and vancomycin. His received 2 L normal saline in the ED. Started midodrine and started low dose phenylephrine via peripheral IV after discussion of risks and benefits with patient and his mother. In addition, he was hypoglycemic on arrival with glucose in 20s, given amp dextrose and glucose 54. Not diabetic or on insulin/ oral hypoglycemics. CBC/BMP: 06/27/17 0520 06/27/17 0520 Significant Findings Laboratory Tests Test 06/26/17 05:30 06/27/17 05:20 06/28/17 09:16 Red Blood Count 3.93 MIL/MM3 (4.50-5.90) 3.95 MIL/MM3 (4.50-5.90) Hemoglobin 12.4 GM/DL (13.0-17.0) 12.6 GM/DL (13.0-17.0) Mean Corpuscular Volume 100.1 FL (80.0-100.0) Mean Corpuscular Hemoglobin Concent 31.6 % (32.0-36.0) Red Cell Distribution Width 19.5 % (11.6-17.2) 19.3 % (11.6-17.2) Platelet Count 81 TH/MM3 (150-450) 81 TH/MM3 (150-450) Prothrombin Time 34.8 SEC (9.8-11.6) 33.0 SEC (9.8-11.6) 27.7 SEC (9.8-11.6) Blood Urea Nitrogen 79 MG/DL (7-18) 101 MG/DL (7-18) Creatinine 9.09 MG/DL (0.60-1.30) 11.06 MG/DL (0.60-1.30) Random Glucose 71 MG/DL (74-106) Estimat Glomerular Filtration Rate 8 ML/MIN (>89) 6 ML/MIN (>89) Calcium Level 8.4 MG/DL (8.5-10.1) Imaging Last Impressions Abdomen/Pelvis CT 06/23/17 0000 Signed Impressions: Service Date/Time: June 21:22 - CONCLUSION: 1. No perceptible insulinoma or other mass. 2. Mesenteric edema and diffuse anasarca. Nothing organized or drainable. 3. Mild patchy infiltrate of the visualized lung bases. Jeff Méndez MD Pancreas Ultrasound 06/19/17 0000 Signed Impressions: Service Date/Time: Monday, June 19, 2017 13:34 - CONCLUSION: 1. Gallbladder sludge with mild wall thickening 2. No evidence of suspicious mass 3. Hyperechoic right kidney 4. 2 right renal cysts. Jatin Fontanez MD Catheter Placement X-Ray 06/14/17 0000 Signed Impressions: Service Date/Time: Wednesday, June 14, 2017 15:54 - CONCLUSION: Uncomplicated fluoroscopic guided dialysis permacath exchange as described in detail above. Jeff Batista MD Chest X-Ray 06/10/17 1436 Signed Impressions: Service Date/Time: Saturday, June 10, 2017 15:36 - CONCLUSION: 1. Stable chronic interstitial changes. 2. No acute infiltrate. Narendra Barreto Jr., MD PE at Discharge GENERAL: in NAD NECK: Supple, trachea midline. No JVD or lymphadenopathy. CARDIOVASCULAR: Regular rate and rhythm without murmurs, gallops, or rubs. RESPIRATORY: Breath sounds equal bilaterally. No accessory muscle use. GASTROINTESTINAL: Abdomen soft, non-tender, nondistended. MUSCULOSKELETAL: B/L BKA Pt update on day of discharge Follow-up for hypoglycemia Patient has not been hypoglycemic for more than 24 hours. He stated that he is eating normal now. He said prior he was not given enough food. He received no supplemental glucose. Patient very anxious to go home. Dealt with patient's nurse. Hospital Course Septic shock/ Staph Epi/coag negative staph bacteremia/ candidemia -Patient received fluid resuscitation, Midodrine, stress dose steroids. An echo was done ECHO- EF 55-60%, no RWMA, trace TR, PAP 36mmHG. Blood cultures grew yeast and staph epi. S/p permacath exchange. Infectious disease was consulted and patient was treated with vancomycin Diflucan. Hypoglycemia Possibly s/t sepsis and end-stage renal disease. ? cortisol deficiency. Pancreatic ultrasound negative for insulinoma. CT abdomen negative for insulinoma as well. - Insulin level elevated at 31.1, B-HB low, c peptide levels elevated. - Patient was put on hydrocortisone and despite being on steroids he continued to be hypoglycemic. Hydrocortisone was later weaned. When patient ate his usual portion side hypoglycemia resolved. Workup was in place. Patient told that he will need to follow with stud setter in regards to this. -Prior hospitalization blood sugars were normal. Maybe secondary to sepsis and end-stage renal disease. -Patient was educated extensively on hypoglycemic management. History of Asthma Chronic basilar interstitial opacities. CXR 06/10 : Chronic interstitial changes, no acute infiltrate. Breathing comfortably. - continue Oxygen and keep Oxygen saturation over 92%. - Continue bronchodilator, mucolytics and incentive spirometry. ESRD On Hemodialysis Tuesday/Tuesday/Tuesday. 06/14 PermCath exchange by IR. - Nephrology specialist following. Fistulogram has been rescheduled as outpatient. - continue midodrine. SLE/ DVT VICKI negative in the past. DVT noted. - continue Coumadin. Therapeutic. Dc heparin drip. Peripheral vascular disease Status post bilateral BKA's. - PT/OT. Pt Condition on Discharge: Stable Discharge Disposition: Disch w/ Home Health Serv Discharge Time: > 30 minutes Discharge Instructions DIET: Follow Instructions for: As Tolerated, No Restrictions Additional Diet Instructions: add snacks 4 times a day Activities you can perform: Regular-No Restrictions Follow up Referrals: Nephrology - 1 Week PCP Follow-up - 1 Week SNF/LONG TERM/ with [facility] Home Vascular Surgery @ Vascular Surgery with Chon Plascencia MD New Medications: Blood-Glucose Meter (Blood Glucose Monitor) 1 Each Kit KIT for hypoglycemia, #1 0 Refills Hydrocortisone (Hydrocortisone) 20 Mg Tab 20 MG PO BID for adrenal insufficency, #26 TAB 0 Refills take 1 tab twice a day for 1 weeks then decrease to 1/2 tablet twice day for 1 weeks then take 1/2 tablet once a day for 5 day then stop medication Fluconazole (Diflucan) 200 Mg Tab 400 MG PO DAILY for infection, #14 TAB 0 Refills Fludrocortisone (Fludrocortisone) 0.1 Mg Tab 0.1 MG PO WITH DIALYSIS for adrenal insufficency, #30 TAB 0 Refills Sennosides-Docusate Sodium (Senna Plus 8.6-50 mg) 8.6 Mg-50 Mg Tab 1 TAB PO BID for constipation, #30 TAB 0 Refills Warfarin (Coumadin) 3 Mg Tab 3 MG PO DAILY@1600 for DVT, #30 TAB 0 Refills need INR rechecked in 2-3 days to see if this dose is right for you. Continued Medications: Alprazolam (Xanax) 1 Mg Tab 1 MG PO Q8H PRN for ANXIETY, TAB 0 Refills Pantoprazole (Protonix) 20 Mg Tab 20 MG PO DAILY for Reflux, #30 TAB 0 Refills Sevelamer HCl (Renagel) 800 Mg Tab 1600 MG PO TID for Control phosphorus levels, #180 TAB 0 Refills Delicia Aguila MD Jun 28, 2017 12:42
[2017-06-28] MEDS ORDERED: WARFARIN SOD 3 MG TAB PO SCH (16:00)
[2017-06-30 23:53] LABS: INSULIN AUTO ANTIBODIES LESS THAN 0.4 U/mL (<0.4)
== END 2017-06-28 15:08 | disposition home health service (06) | DRG 314 ==
LOC: NEPC 13:38 → NEDA 18:21 → HIME 20:25 → N04A 06-27 21:13
PROVIDERS: ADMIT Family Medicine; ATTEND Family Medicine
PROC: 5A1D60Z (ICD-10-PCS; principal; 2017-06-13)
PROC: 06HN33Z Insertion of Infusion Device into Left Femoral Vein, Percutaneous Approach (ICD-10-PCS; 2017-06-14)
DX: T80.211A Bloodstream infection due to central venous catheter, initial encounter (principal); A41.9 Sepsis, unspecified organism; R65.21 Severe sepsis with septic shock; I13.2 Hypertensive heart and chronic kidney disease with heart failure and with stage 5 chronic kidney disease, or end stage renal disease; N18.6 End stage renal disease; N25.81 Secondary hyperparathyroidism of renal origin; E87.2 Acidosis; B37.7 Candidal sepsis; T82.49XA Other complication of vascular dialysis catheter, initial encounter; M32.9 Systemic lupus erythematosus, unspecified; Z99.2 Dependence on renal dialysis; I50.9 Heart failure, unspecified; I25.10 Atherosclerotic heart disease of native coronary artery without angina pectoris; J44.9 Chronic obstructive pulmonary disease, unspecified; I25.2 Old myocardial infarction; M19.90 Unspecified osteoarthritis, unspecified site; F41.9 Anxiety disorder, unspecified; Z95.5 Presence of coronary angioplasty implant and graft; K21.9 Gastro-esophageal reflux disease without esophagitis; I73.9 Peripheral vascular disease, unspecified; Z89.511 Acquired absence of right leg below knee; Z79.01 Long term (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 of anticoagulants; Z89.512 Acquired absence of left leg below knee; Z86.718 Personal history of other venous thrombosis and embolism; Z87.891 Personal history of nicotine dependence; Z89.029 Acquired absence of unspecified finger(s); Z91.15 Patient's noncompliance with renal dialysis; Z91.14 Patient's other noncompliance with medication regimen; Y83.8 Other surgical procedures as the cause of abnormal reaction of the patient, or of later complication, without mention of misadventure at the time of the procedure; E16.2 Hypoglycemia, unspecified; Y84.8 Other medical procedures as the cause of abnormal reaction of the patient, or of later complication, without mention of misadventure at the time of the procedure
CPT/HCPCS: 36556; 36581; 71010; 74176; 76705; 76937; 77001; 80048; 80053; 80076; 80202; 82010; 82150; 82533; 82550; 82948; 83525; 83605; 83690; 83735; 84100; 84155; 84484; 84681; 85007; 85025; 85027; 85384; 85610; 85730; 86337; 86403; 86850; 86900; 86901; 87040; 87077; 87186; 87205; 87641; 90935; 93005; 93306; 96361; 96365; 96368; 96374; 96375; 96376; 99152; 99153; C1769; G8987-GO; G8988-GO; J0692; J1450; J1580; J1644; J1720; J2150; J2248; J2250; J2370; J2405; J2920; J3010; J3370; J7030; J7050; J7060; P9047

== ENCOUNTER 2017-08-12 09:04 | Inpatient (IN) | payer MEDICAID ==
[2017-08-12] VITALS (25 sets, daily range): BP systolic 62–125; BP diastolic 36–72; PULSE 71–123; RESP 15–20; TEMP 99.8–102.3; O2SAT 87–100
[~2017-08-12] VITALS: Ht 172.7 cm; Wt 50.0 kg
[~2017-08-12 09:04] MED LIST changes: +BLOO-54; +COUM3TAB PO; +DIFL200T PO; +FLUD.1 PO; +HYDR20TA PO; +SENN1TAB PO; +SEVE800 PO; -SEVE800T PO
[2017-08-12] MEDS ORDERED: DEXTROSE 50% IN WATER 50 ML VIAL(D50) ONE (09:09)
[2017-08-12] MEDS ORDERED: VANCOMYCIN INJ 1,000 MG in SODIUM CHLOR 0.9% 250 ML INJ 250 ML IV STA (09:10)
[2017-08-12] MEDS ORDERED: PIPERACIL-TAZO 2.25 GM PREMIX 50 ML IV ONE (09:15)
[2017-08-12] MEDS ORDERED: ACETAMINOPHEN 325 MG TAB PO ONE (09:15)
[2017-08-12 09:46] LABS: BLOOD GAS BASE EXCESS 0.7 mmol/L (-2-2); BLOOD GAS CARBOXYHEMOGLOBIN 2.3 % (0-4); BLOOD GAS HCO3 23 mmol/L (22-26); BLOOD GAS METHEMOGLOBIN 0.6 % (0-2); BLOOD GAS O2 HGB SATURATION 77 % (90-100); BLOOD GAS PCO2 26 mmHg (38-42); BLOOD GAS PO2 41 mmHG (61-120); BLOOD GAS TOTAL HGB 8.3 G/DL (12.0-16.0); CRITICAL VALUE YES; LITER FLOW 3 L/M; OXYGEN DEVICE NASAL CANNULA; TEMP CORR TO 98.6
[2017-08-12 09:47] LABS: DRAW SITE RT FEMORAL; NUMBER OF ARTERIAL PUNCTURES 1; STAT YES
--- NOTE | 2017-08-12 10:00 | RADRPT ---
EXAM DATE/TIME: 08/12/2017 09:25 [facility] COMPARISON: CHEST SINGLE AP, June 10, 2017, 15:36. INDICATIONS : Low blood pressure, low sugar, fever, unresponsive. MEDICAL HISTORY : Diabetes mellitus type II. SURGICAL HISTORY : Bilateral BKA ENCOUNTER: Initial ACUITY: 1 day PAIN SCORE: Non-responsive. LOCATION: Bilateral chest FINDINGS: Scattered patchiness is noted bilaterally and is stable compared to the previous examination. The he art is stable. A catheter is noted in the expected region of the inferior vena cava and right atrium. CONCLUSION: 1. Stable scattered patchiness bilaterally. Chon Nye MD on August 12, 2017 at 9:53 Board Certified Radiologist. This report was verified electronically.
[2017-08-12 10:40] LABS: ALKALINE PHOSPHATASE 63 U/L (45-117); ALT (GPT) 28 U/L (12-78); TOTAL BILIRUBIN ADULT 0.6 MG/DL (0.2-1.0)
[2017-08-12 10:42] LABS: ANION GAP 15 MEQ/L (5-15); AST (GOT) 39 U/L (15-37); BICARBONATE 23.4 MEQ/L (21.0-32.0); BLOOD UREA NITROGEN 63 MG/DL (7-18); CHLORIDE 98 MEQ/L (98-107); GLOMERULAR FILTRATION RATE 9 ML/MIN (>89); POTASSIUM 3.6 MEQ/L (3.5-5.1); SODIUM (NA) 136 MEQ/L (136-145)
[2017-08-12] MEDS ORDERED: ACETAMINOPHEN 650 MG SUPP RECTAL ONE (10:45)
[2017-08-12] MEDS ORDERED: DEXTROSE 50% IN WATER 50 ML VIAL(D50) IV PUSH ONE (10:45)
[2017-08-12 11:17] LABS: AUTOMATED NEUTROPHIL # 9.4 TH/MM3 (1.8-7.7); BASOPHIL # 0.1 TH/MM3 (0-0.2); BASOPHIL % 0.6 % (0.0-2.0); HEMATOCRIT 27.2 % (39.0-51.0); HEMO FLAGS DIFF FINAL; LYMPH % 3.2 % (9.0-44.0); LYMPHOCYTE # 0.3 TH/MM3 (1.0-4.8); MEAN CELL VOLUME 100.4 FL (80.0-100.0); MEAN CORPUSCULAR HEMOGLOBIN 32.4 PG (27.0-34.0); MEAN CORPUSCULAR HGB CONC 32.3 % (32.0-36.0); MONO % 5.2 % (0.0-8.0); PLATELET COUNT 112 TH/MM3 (150-450); RED BLOOD COUNT 2.71 MIL/MM3 (4.50-5.90); RED CELL DISTRIBUTION WIDTH 19.3 % (11.6-17.2); WHITE BLOOD COUNT 10.3 TH/MM3 (4.0-11.0)
[2017-08-12 11:25] LABS: APTT (PATIENT) 30.6 SEC (24.3-30.1); INTERNATIONAL NORMALIZED RATIO 1.5 RATIO; PROTHROMBIN TIME - PATIENT 16.6 SEC (9.8-11.6)
[2017-08-12] MEDS ORDERED: SODIUM CHLOR 0.9% 250 ML INJ 250 ML IV ONE (11:30)
[2017-08-12] MEDS ORDERED: MORPHINE SULFATE 4 MG/ML INJ IV PUSH PRN (11:45)
[2017-08-12] MEDS ORDERED: BISACODYL 10 MG SUPP RECTAL PRN (11:45)
[2017-08-12] MEDS ORDERED: SENNOSIDES 8.6 MG TAB PO PRN (11:45)
[2017-08-12] MEDS ORDERED: SODIUM CHLOR 0.9% 1000 ML INJ 1,000 ML IV SCH (11:45)
[2017-08-12] MEDS ORDERED: MISCELLANEOUS NURSING INFORMATION XX SCH (11:45)
[2017-08-12] MEDS ORDERED: ONDANSETRON HCL 4 MG/2 ML VIAL IV PUSH PRN (11:45)
[2017-08-12] MEDS ORDERED: MAGNESIUM HYDROXIDE SUSP 30 ML CUP PO PRN (11:45)
[2017-08-12] MEDS ORDERED: ACETAMINOPHEN/HYDROcodone 325 MG/5 MG TAB PO PRN (11:45)
[2017-08-12] MEDS ORDERED: LACTULOSE SYRUP 20 GM/30 ML CUP PO PRN (11:45)
--- NOTE | 2017-08-12 11:47 | PD ---
HPI Chief Complaint: Altered Mental Status Time Seen by Provider: 09:10 Travel History International Travel<30 days: No Contact w/Intl Traveler<30days: No Traveled to known affect area: No History of Present Illness HPI 46-year-old male end-stage renal disease Tuesday arrives by EMS from dialysis. He was at our 3 of his dialysis when he became hypotensive and tachycardic, 120s with blood pressure 80s over 40s. Blood sugar on scene was 40s and EMS started D 10. The family member notes dark stools lately. History is limited due to clinical exam to have provided by EMS and by family member. Normally the patient is lucid and interactive. 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 PFSH Past Medical History Medical History: Unable to Obtain Hx Anticoagulant Therapy: Yes Arthritis: Yes Asthma: Yes Autoimmune Disease: Yes Blood Disorders: Yes Anxiety: Yes Depression: No Heart Rhythm Problems: No Cancer: No Cardiovascular Problems: Yes (cad) High Cholesterol: No Chemotherapy: No Chest Pain: Yes Congestive Heart Failure: Yes COPD: Yes Coronary Artery Disease: Yes Diabetes: No Dialysis: Yes Diminished Hearing: No Deep Vein Thrombosis: Yes Endocrine: No GERD: No Glaucoma: No Genitourinary: Yes (right fistula; dialysis) Headaches: No Hepatitis: No Hiatal Hernia: No Hypertension: Yes Immune Disorder: No Kidney Stones: No Medical other: Yes (PAD) Musculoskeletal: No Neurologic: No Psychiatric: No Reproductive: No Respiratory: Yes Immunizations Current: No Migraines: No Myocardial Infarction: Yes Radiation Therapy: No Renal Failure: Yes Seizures: No Sleep Apnea: No Thyroid Disease: No Ulcer: No Past Surgical History Surgical History: Unable to Obtain Abdominal Surgery: No AICD: No Appendectomy: No Arteriovenous Shunt: Yes Body Medical Devices: cardiac stent Cardiac Surgery: Yes (STENT PLACEMENT 1 YEAR AGO) Cholecystectomy: No Coronary Stent: Yes Ear Surgery: No Endocrine Surgery: No Eye Surgery: No Genitourinary Surgery: No Gynecologic Surgery: No Joint Replacement: No Oral Surgery: No Pacemaker: No Thoracic Surgery: No Other Surgery: Yes (VAS CATH LEFT THIGH) Social History Alcohol Use: No Tobacco Use: No Substance Use: No Allergies-Medications (Allergen,Severity, Reaction): Coded Allergies: iodine (Unverified Allergy, Severe, blisters, 06/10/17) morphine (Unverified Allergy, Severe, Itching, 06/10/17) potassium iodide (Unverified Allergy, Severe, blisters, 06/10/17) povidone-iodine (Unverified Allergy, Severe, blisters, 06/10/17) sodium iodide (Unverified Allergy, Severe, blisters, 06/10/17) sodium iodide (Unverified Allergy, Severe, blisters, 06/10/17) Reported Meds & Prescriptions Reported Meds & Active Scripts Active Blood Glucose Monitor (Blood-Glucose Meter) 1 Each Kit Kit Hydrocortisone 20 Mg Tab 20 Mg PO BID take 1 tab twice a day for 1 weeks then decrease to 1/2 tablet twice day for 1 weeks then take 1/2 tablet once a day for 5 day then stop medication Fludrocortisone (Fludrocortisone Acetate) 0.1 Mg Tab 0.1 Mg PO WITH DIALYSIS Senna Plus 8.6-50 mg (Sennosides-Docusate Sodium) 8.6 Mg-50 Mg Tab 1 Tab PO BID Coumadin (Warfarin) 3 Mg Tab 3 Mg PO DAILY@1600 need INR rechecked in 2-3 days to see if this dose is right for you. Diflucan (Fluconazole) 200 Mg Tab 400 Mg PO DAILY Vancomycin Inj (Vancomycin HCl) 1,000 Mg Inj 1,000 Mg IV 3XA WEEK WITH DIALYS 40 Days Reported Warfarin 4 Mg Tab 4 Mg PO DAILY Xanax (Alprazolam) 1 Mg Tab 1 Mg PO Q8H PRN Protonix (Pantoprazole Sodium) 20 Mg Tab 20 Mg PO DAILY Renagel (Sevelamer HCl) 800 Mg Tab 1,600 Mg PO TID Review of Systems ROS Limitations: Clinical Condition Physical Exam Narrative GENERAL: 46-year-old male who chronically ill in appearance SKIN: Focused skin assessment warm/dry. HEAD: Atraumatic. Normocephalic. EYES: Pupils equal and round. No scleral icterus. No injection or drainage. ENT: No nasal bleeding or discharge. Mucous membranes pink and moist. NECK: Trachea midline. No JVD. CARDIOVASCULAR: Tachycardia. Regular rhythm. RESPIRATORY: No accessory muscle use. Clear to auscultation. Breath sounds equal bilaterally. GASTROINTESTINAL: Abdomen soft, non-tender, nondistended. Hepatic and splenic margins not palpable. MUSCULOSKELETAL: No clubbing. No cyanosis. No edema. Right arm dialysis catheter. Bilateral BKA's NEUROLOGICAL: Cranial extremities. Opens eyes occasionally to gentle noxious stimulus. No focal cranial nerve deficit PSYCHIATRIC: Appropriate mood and affect; insight and judgment normal. Data Data Last Documented VS Vital Signs Date Time Temp Pulse Resp B/P (MAP) Pulse Ox O2 Delivery O2 Flow Rate FiO2 08/12/17 11:03 117 20 86/52 (63) 87 Non-Rebreather 15.00 08/12/17 09:14 101.0 vital signs reviewed Orders Orders Dextrose 50% In Brandy (Vial) Inj (D50w (Vi (08/12/17 09:09) Electrocardiogram (08/12/17 09:10) Complete Blood Count With Diff (08/12/17 09:10) Comprehensive Metabolic Panel (08/12/17 09:10) Prothrombin Time / Inr (Pt) (08/12/17 09:10) Act Partial Throm Time (Ptt) (08/12/17 09:10) Lactic Acid Sepsis Protocol (08/12/17 09:10) Magnesium (Mg) (08/12/17 09:10) Urinalysis - C+S If Indicated (08/12/17 09:10) Blood Culture (08/12/17 09:10) Chest, Single Ap (08/12/17 09:10) Arterial Blood Gas (Abg) (08/12/17 09:10) Blood Glucose (08/12/17 09:10) Ecg Monitoring (08/12/17 09:10) Iv Access Insert/Monitor (08/12/17 09:10) Cath For Specimen (08/12/17 09:10) Oximetry (08/12/17 09:10) Oxygen Administration (08/12/17 09:10) Acetaminophen (Tylenol) (08/12/17 09:15) Vancomycin Inj (Vancomycin Inj) (08/12/17 09:10) Piperacil-Tazo 2.25 Gm Premix (Zosyn 2.2 (08/12/17 09:15) Vascular Access Team Consult/P PRN (08/12/17 10:26) Vascular Poc Ultrasound (08/12/17 ) Dextrose 50% In Brandy (Vial) Inj (D50w (Vi (08/12/17 10:45) Acetaminophen Supp (Tylenol Supp) (08/12/17 10:45) Type And Screen (08/12/17 11:29) Red Blood Cells (Rbc) (08/12/17 11:29) Blood Product Administration (08/12/17 11:29) Sodium Chlor 0.9% 250 Ml Inj (Ns 250 Ml (08/12/17 11:30) Labs Laboratory Tests Test 08/12/17 09:21 08/12/17 09:40 08/12/17 11:01 Blood Gas Puncture Site RT FEMORAL Blood Gas Patient Temperature 98.6 Blood Gas HCO3 23 mmol/L Blood Gas Base Excess 0.7 mmol/L Blood Gas Oxygen Saturation 77 % Arterial Blood pH 7.56 Arterial Blood Partial Pressure CO2 26 mmHg Arterial Blood Partial Pressure O2 41 mmHG Arterial Blood Oxygen Content 9.0 Vol % Arterial Blood Carboxyhemoglobin 2.3 % Arterial Blood Methemoglobin 0.6 % Blood Gas Hemoglobin 8.3 G/DL Oxygen Delivery Device NASAL CANNULA Blood Gas Liter Flow 3 L/M Blood Urea Nitrogen 63 MG/DL Creatinine 7.73 MG/DL Random Glucose 159 MG/DL Total Protein 6.7 GM/DL Albumin 3.0 GM/DL Calcium Level 8.7 MG/DL Magnesium Level 2.0 MG/DL Alkaline Phosphatase 63 U/L Aspartate Amino Transf (AST/SGOT) 39 U/L Alanine Aminotransferase (ALT/SGPT) 28 U/L Total Bilirubin 0.6 MG/DL Sodium Level 136 MEQ/L Potassium Level 3.6 MEQ/L Chloride Level 98 MEQ/L Carbon Dioxide Level 23.4 MEQ/L Anion Gap 15 MEQ/L Estimat Glomerular Filtration Rate 9 ML/MIN Lactic Acid Level 6.6 mmol/L White Blood Count 10.3 TH/MM3 Red Blood Count 2.71 MIL/MM3 Hemoglobin 8.8 GM/DL Hematocrit 27.2 % Mean Corpuscular Volume 100.4 FL Mean Corpuscular Hemoglobin 32.4 PG Mean Corpuscular Hemoglobin Concent 32.3 % Red Cell Distribution Width 19.3 % Platelet Count 112 TH/MM3 Mean Platelet Volume 8.8 FL Neutrophils (%) (Auto) 91.0 % Lymphocytes (%) (Auto) 3.2 % Monocytes (%) (Auto) 5.2 % Eosinophils (%) (Auto) 0.0 % Basophils (%) (Auto) 0.6 % Neutrophils # (Auto) 9.4 TH/MM3 Lymphocytes # (Auto) 0.3 TH/MM3 Monocytes # (Auto) 0.5 TH/MM3 Eosinophils # (Auto) 0.0 TH/MM3 Basophils # (Auto) 0.1 TH/MM3 CBC Comment DIFF FINAL Differential Comment Prothrombin Time 16.6 SEC Prothromb Time International Ratio 1.5 RATIO Activated Partial Thromboplast Time 30.6 SEC MDM Medical Decision Making Medical Screen Exam Complete: Yes Emergency Medical Condition: Yes Medical Record Reviewed: Yes Differential Diagnosis sepsis, severe sepsis, pneumonia, hypoglycemia, anemia, electrolyte imbalance Narrative Course CBC & BMP Diagram 08/12/17 09:40 Total Protein 6.7, Albumin 3.0 L, Calcium Level 8.7, Magnesium Level 2.0, Alkaline Phosphatase 63, Aspartate Amino Transf (AST/SGOT) 39 H, Alanine Aminotransferase (ALT/SGPT) 28, Total Bilirubin 0.6 08/12/17 11:01 Lactic acid 6.6 INR 1.5 ABG 7.56 / pO2 41 Last Impressions Chest X-Ray 08/12/17 0910 Signed Impressions: Service Date/Time: Saturday, August 12, 2017 09:25 - CONCLUSION: 1. Stable scattered patchiness bilaterally. Chon Nye MD Pulse ox 96% on NRB Zosyn started Guaiac positive stool, black Pulse 120 BP 80/40 1 UPRBCs ordered etiology sepsis unclear potentially pulmonary L groin dialysis catheter intact without sign of infection d/w Dr Walters for dental receptionist service Critical Care Narrative Aggregate critical care time was 40 minutes. Time to perform other separately billable procedures was not included in the critical care time. My time did not include minutes spent treating any other patients simultaneously or on activities that did not directly contribute to the patient's treatment. The services I provided to this patient were to treat and/or prevent clinically significant deterioration that could result in: cardiopulmonary arrest, arrhythmia I provided critical care services requiring my management, as noted below: Chart data review, documentation time, medication orders and management, vital sign assessments/reviewing monitor data, ordering and reviewing lab tests, ordering and interpreting/reviewing x-rays and diagnostic studies, care of the patient and discussion of the patient with the admitting physicians. Sepsis Criteria SIRS Criteria (2 or more): Temp > 100.9 or < 96.8, Heart rate over 90 Sepsis Criteria (SIRS+source): Infect source susp/known Severe Sepsis (+one): Lactate >2 Septic Shock Criteria: Lactic acid >=4 Diagnosis Primary Impression: Septic shock Additional Impressions: Anemia Qualified Codes: D64.9 - Anemia, unspecified GI bleed Qualified Codes: K92.2 - Gastrointestinal hemorrhage, unspecified Admitting Information Admitting Physician Requests: Tavares Harper MD Aug 12, 2017 11:47
[2017-08-12 11:54] LABS: LACTIC ACID GHOST NOT REPORTABLE
[2017-08-12] MEDS: MIDODRINE 5 MG TAB PO SCH ×2 (12:00→17:00)
[2017-08-12] MEDS ORDERED: PHENYLEPHRINE INJ 160 MG in DEXTROSE 5% IN WATE 500 ML INJ 484 ML IV PRN ×2 (12:00)
[2017-08-12] MEDS ORDERED: Vancomycin Consult Pharmacy 1 EA OTHER SCH (12:00)
[2017-08-12] MEDS ORDERED: TERBUTALINE INJ 1 MG/ML AMP SQ PRN (12:00)
--- NOTE | 2017-08-12 12:21 | HHI.HP ---
HPI Service Critical Care Medicine Primary Care Physician Unknown Admission Diagnosis Severe Sepsis (PNA); GI Bleed; Anemia Diagnosis: (1) Elevated lactic acid level Diagnosis: Principal (2) HYPOTENSION OF HEMODIALYSIS Diagnosis: Principal (3) Fever Diagnosis: Principal (4) ESRD (end stage renal disease) on dialysis Diagnosis: Principal (5) Lupus (systemic lupus erythematosus) Diagnosis: Secondary (6) Hypoglycemia Diagnosis: Secondary (7) Anemia Diagnosis: Secondary (8) Chronic anticoagulation Diagnosis: Principal (9) H/O hypercoagulable state Diagnosis: Principal (10) Elevated glucose Diagnosis: Principal (11) Hypoalbuminemia Diagnosis: Principal (12) Thrombocytopenia Diagnosis: Principal (13) Elevated AST (SGOT) Diagnosis: Principal (14) Macrocytic anemia Diagnosis: Principal (15) Severe sepsis Diagnosis: Principal (16) History of DVT (deep vein thrombosis) Diagnosis: Principal (17) History of pulmonary embolism Diagnosis: Secondary (18) Gastroesophageal reflux disease Diagnosis: Secondary (19) Coronary artery disease Diagnosis: Principal (20) Lupus nephritis Diagnosis: Secondary (21) PAD (peripheral artery disease) Diagnosis: Secondary Chief Complaint: Unresponsive, tachycardic and hypotensive with hemodialysis with elevated lactate upon arrival Travel History International Travel<30 Days: No Contact w/Intl Traveler <30 Da: No Traveled to Known Affected Are: No Sepsis Criteria SIRS Criteria (2 or more): WBC > 26012, < 4000 or > 10% bands Sepsis Criteria (SIRS+source): Infect source susp/known Severe Sepsis (+one): Hypotension Septic Shock Criteria: Lactic acid >=4 History of Present Illness This is a 46-year-old AA male. Date of admission . Past medical history includes SLE, lupus nephritis, end-stage renal disease on hemodialysis Tuesday/Tuesday and Tuesday per Dr. Merlos, history of pulmonary embolism/SVC thrombus, peripheral arterial disease, gastroesophageal reflux disease, anemia of chronic kidney disease, anxiety along with hyperphosphatemia. According to mother at bedside, patient started feeling "sick" yesterday become increasingly lethargic. Unknown if febrile/malaise/myalgias. Patient presented to his regular scheduled hemodialysis today where he was hypotensive, tachycardic and febrile. His right AV fistula graft is currently heparinized with syringes intact and in place. In the ED, patient received 1 L normal saline and 1 PRBC. Patient stool guaiac positive. Lactate was 6.6. Patient does have a white cell count. He has a macrocytic anemia and thrombocytopenia. During his last admission was diagnosed with staph epi/coag negative staph bacteremia. He was planned to have his left hemodialysis vascular catheter/femoral removed on Tuesday according to his mother bedside. He was on vancomycin scheduled with hemodialysis and oral Diflucan as an outpatient. Of note his baseline systolic blood pressure is in the 80s. Review of Systems ROS Limitations: Altered Mental Status Past Family Social History Allergies: Coded Allergies: iodine (Unverified Allergy, Severe, blisters, 06/10/17) morphine (Unverified Allergy, Severe, Itching, 06/10/17) potassium iodide (Unverified Allergy, Severe, blisters, 06/10/17) povidone-iodine (Unverified Allergy, Severe, blisters, 06/10/17) sodium iodide (Unverified Allergy, Severe, blisters, 06/10/17) sodium iodide (Unverified Allergy, Severe, blisters, 06/10/17) Past Medical History Hypercoagulable state History of pulmonary embolism History of SVC thrombus 2009 PAD Gastroesophageal reflux disease End-stage renal disease secondary to lupus nephritis on hemodialysis Tuesday/ Tuesday/Tuesday with Dr. Merlos Coronary artery disease status post stent Anemia of chronic kidney disease Hyperphosphatemia Chronic warfarin use Anxiety disorder NOS Past Surgical History Right second/third finger amputation Bilateral [id number] amputation Right and left upper extremity AV fistula. Right upper extremity AV fistula currently functioning. Placed by Dr. Plascencia Left femoral hemodialysis catheter placement Reported Medications Blood Glucose Monitor (Blood-Glucose Meter) 1 Each Kit Kit Hydrocortisone 20 Mg Tab 20 Mg PO BID take 1 tab twice a day for 1 weeks then decrease to 1/2 tablet twice day for 1 weeks then take 1/2 tablet once a day for 5 day then stop medication Fludrocortisone (Fludrocortisone Acetate) 0.1 Mg Tab 0.1 Mg PO WITH DIALYSIS Senna Plus 8.6-50 mg (Sennosides-Docusate Sodium) 8.6 Mg-50 Mg Tab 1 Tab PO BID Coumadin (Warfarin) 3 Mg Tab 3 Mg PO DAILY@1600 need INR rechecked in 2-3 days to see if this dose is right for you. Diflucan (Fluconazole) 200 Mg Tab 400 Mg PO DAILY Vancomycin Inj (Vancomycin HCl) 1,000 Mg Inj 1,000 Mg IV 3XA WEEK WITH DIALYS 40 Days Reported Warfarin 4 Mg Tab 4 Mg PO DAILY Xanax (Alprazolam) 1 Mg Tab 1 Mg PO Q8H PRN Protonix (Pantoprazole Sodium) 20 Mg Tab 20 Mg PO DAILY Renagel (Sevelamer HCl) 800 Mg Tab 1,600 Mg PO TID Active Ordered Medications Reviewed in EMR Family History Positive for hypertension in mother and father. Social History Quit tobacco in the recent past. Unknown pack year/duration.. No recent EtOH use. Denies illicit drug use. Physical Exam Vital Signs Vital Signs Date Time Temp Pulse Resp B/P (MAP) Pulse Ox O2 Delivery O2 Flow Rate FiO2 08/12/17 12:02 113 20 85/43 (57) 98 Non-Rebreather 15.00 08/12/17 11:03 117 20 86/52 (63) 87 Non-Rebreather 15.00 08/12/17 10:35 120 18 87/53 (64) 88 Non-Rebreather 15.00 08/12/17 09:57 123 20 79/49 (59) 88 Non-Rebreather 15.00 08/12/17 09:55 87 Non-Rebreather 15.00 08/12/17 09:39 Non-Rebreather 15.00 08/12/17 09:17 95 Nasal Cannula 2.00 08/12/17 09:17 95 Nasal Cannula 2.00 08/12/17 09:14 101.0 121 18 89/54 (66) Nasal Cannula 2.00 Physical Exam GENERAL: 46-year-old AA male, currently resting in bed febrile in no acute distress SKIN: Warm and dry. HEAD: Atraumatic. Normocephalic. EYES: Pupils equal and round about 3 mm bilaterally and reactive. No scleral icterus. No injection or drainage. ENT: No nasal bleeding or discharge. Mucous membranes pink and moist. Oropharynx without erythema NECK: Trachea midline. No JVD. CARDIOVASCULAR: Tachycardic, RR. S1, S2. No S4. Without murmur RESPIRATORY: No accessory muscle use. Clear to auscultation. Breath sounds equal bilaterally. GASTROINTESTINAL: Abdomen soft, non-tender, nondistended. Hypoactive bowel sounds are appreciated. MUSCULOSKELETAL: Extremities bilateral [id number] amputation. Left femoral hemodialysis vascular catheter is clean dry and intact. Right AV fistula currently with 2 syringes attached. Prior left AV fistula upper extremity without thrill. NEUROLOGICAL: Awake and alert to person only. No obvious cranial nerve deficits. Motor grossly within normal limits. Moving all 4 extremities spontaneously Laboratory Laboratory Tests Test 08/12/17 09:21 08/12/17 09:40 08/12/17 11:01 Blood Gas Puncture Site RT FEMORAL Blood Gas Patient Temperature 98.6 Blood Gas HCO3 23 Blood Gas Base Excess 0.7 Blood Gas Oxygen Saturation 77 Arterial Blood pH 7.56 Arterial Blood Partial Pressure CO2 26 Arterial Blood Partial Pressure O2 41 Arterial Blood Oxygen Content 9.0 Arterial Blood Carboxyhemoglobin 2.3 Arterial Blood Methemoglobin 0.6 Blood Gas Hemoglobin 8.3 Oxygen Delivery Device NASAL CANNULA Blood Gas Liter Flow 3 Blood Urea Nitrogen 63 Creatinine 7.73 Random Glucose 159 Total Protein 6.7 Albumin 3.0 Calcium Level 8.7 Magnesium Level 2.0 Alkaline Phosphatase 63 Aspartate Amino Transf (AST/SGOT) 39 Alanine Aminotransferase (ALT/SGPT) 28 Total Bilirubin 0.6 Sodium Level 136 Potassium Level 3.6 Chloride Level 98 Carbon Dioxide Level 23.4 Anion Gap 15 Estimat Glomerular Filtration Rate 9 Lactic Acid Level 6.6 White Blood Count 10.3 Red Blood Count 2.71 Hemoglobin 8.8 Hematocrit 27.2 Mean Corpuscular Volume 100.4 Mean Corpuscular Hemoglobin 32.4 Mean Corpuscular Hemoglobin Concent 32.3 Red Cell Distribution Width 19.3 Platelet Count 112 Mean Platelet Volume 8.8 Neutrophils (%) (Auto) 91.0 Lymphocytes (%) (Auto) 3.2 Monocytes (%) (Auto) 5.2 Eosinophils (%) (Auto) 0.0 Basophils (%) (Auto) 0.6 Neutrophils # (Auto) 9.4 Lymphocytes # (Auto) 0.3 Monocytes # (Auto) 0.5 Eosinophils # (Auto) 0.0 Basophils # (Auto) 0.1 CBC Comment DIFF FINAL Differential Comment Prothrombin Time 16.6 Prothromb Time International Ratio 1.5 Activated Partial Thromboplast Time 30.6 Date/Time Source Procedure Growth Status 08/12/17 09:40 Blood Peripheral Aerobic Blood Culture Pending Received 08/12/17 09:40 Blood Peripheral Anaerobic Blood Culture Pending Received Result Diagram: 08/12/17 1101 08/12/17 0940 Imaging Last Impressions Chest X-Ray 08/12/17 0910 Signed Impressions: Service Date/Time: Saturday, August 12, 2017 09:25 - CONCLUSION: 1. Stable scattered patchiness bilaterally. Chon Nye MD Septic Shock Reassessment Heart: Other Lungs: Clear Skin: Warm, Dry Peripheral Pulses: Weak Right Radial Weak Left Radial Weak Right Popliteal Weak Left Popliteal Absent Right Dorsalis Pedis Absent Left Dorsalis Pedis Absent Right Posterior Tibial Absent Left Posterior Tibial Caprini VTE Risk Assessment Caprini VTE Risk Assessment: Mod/High Risk (score >= 2) VTE Pharm Contraindication: Hemorrhage VTE [facility] Contraindication: Bilateral amputee Caprini Risk Assessment Model Point Value = 1 Point Value = 2 Point Value = 3 Point Value = 5 Age 41-60 Minor surgery BMI > 25 kg/m2 Swollen legs Varicose veins or History of unexplained or recurrent spontaneous Oral contraceptives or hormone replacement Sepsis (< 1 month) Serious lung disease, including pneumonia (< 1 month) Abnormal pulmonary function Acute myocardial infarction Congestive heart failure (< 1 month) History of inflammatory bowel disease Medical patient at bed rest Age 61-74 Arthroscopic surgery Major open surgery (> 45 min) Laparoscopic surgery (> 45 min) Malignancy Confined to bed (> 72 hours) Immobilizing plaster cast Central venous access Age >= 75 History of VTE Family history of VTE Factor V Leiden Prothrombin 56524Q Lupus anticoagulant Anticardiolipin antibodies Elevated serum homocysteine Heparin-induced thrombocytopenia Other congenital or acquired thrombophilia Stroke (< 1 month) Elective arthroplasty Hip, pelvis, or leg fracture Acute spinal cord injury (< 1 month) Prophylaxis Regimen Total Risk Factor Score Risk Level Prophylaxis Regimen 0-1 Low Early ambulation 2 Moderate Order ONE of the following: *Sequential Compression Device (SCD) *Heparin 5000 units SQ BID 3-4 Higher Order ONE of the following medications: *Heparin 5000 units SQ TID *Enoxaparin/Lovenox 40 mg SQ daily (WT < 150 kg, CrCl > 30 mL/min) *Enoxaparin/Lovenox 30 mg SQ daily (WT < 150 kg, CrCl > 10-29 mL/min) *Enoxaparin/Lovenox 30 mg SQ BID (WT < 150 kg, CrCl > 30 mL/min) AND/OR *Sequential Compression Device (SCD) 5 or more Highest Order ONE of the following medications: *Heparin 5000 units SQ TID (Preferred with Epidurals) *Enoxaparin/Lovenox 40 mg SQ daily (WT < 150 kg, CrCl > 30 mL/min) *Enoxaparin/Lovenox 30 mg SQ daily (WT < 150 kg, CrCl > 10-29 mL/min) *Enoxaparin/Lovenox 30 mg SQ BID (WT < 150 kg, CrCl > 30 mL/min) AND *Sequential Compression Device (SCD) Assessment and Plan Assessment and Plan Neuro/Psych: Anxiety disorder NOS Acute toxic metabolic encephalopathy likely secondary to severe sepsis Currently on alprazolam 1 mg every 8 hours when necessary anxiety Acetaminophen 650 mg every 6 hours when necessary fever Noted more allergy to morphine sulfate CV: Severe sepsis Lactic acidosis Coronary artery disease status post stent PAD Status post 1 L normal saline and 1 PRBC in ED. We'll get additional albumin is 2 g IV 1. Echocardiogram 04/25 revealed EF 55-60%. Mild left ventricular hypertrophy. Trace TR. Serial lactates until clear Started on midodrine 10 mg 3 times a day and stress dose hydrocortisone 100 mg IV every 8 hours in light of Recent steroid use On low-dose phenylephrine to maintain mean arterial pressure > 65. If central access needed will need IR for placement. Question transhepatic/ spinal in this instance Resp: Asthma? Chronic bibasilar opacification Nasal cannula to maintain saturations greater than or equal to 92% Incentive spirometry while awake Albuterol/ipratropium aerosols every 6 hours with albuterol aerosols every 2 hours. Dyspnea GI: Elevated AST Gastroesophageal reflux disease Keep nothing by mouth for now Currently on pantoprazole 40 iv twice a day. On 20 mg daily at home Docusate sodium/senna 1 tablet twice a day for bowel regimen Gastroenterology consult for heme-positive stools in ED. Recheck AST in AM. Doubt cardiac source : No indication for [place] catheter Endo: Recent hydrocortisone use Started on stress dose hydrocortisone 100 mill grams IV every 8 hours. Recent taper 20 mg twice a day with tapering dosage. Not clear where currently in cycle. Fludrocortisone Acetate 0.1 Mg Tab 0.1 Mg PO WITH DIALYSIS currently being held in light of hydrocortisone use above Renal: End-stage renal disease on chronic intermittent hemodialysis Tuesday/Tuesday and Tuesday secondary to lupus nephritis Hyperphosphatemia Consults nephrology - Dr. Merlos for hemodialysis Continue sevelamer 1600 mg 3 times a day for hyperphosphatemia Heme: Macrocytic anemia Anemia of chronic kidney disease Thrombocytopenia Hypercoagulable state On chronic warfarin therapy. Last evaluation in documents [address] Oreilly. At that time workup negative except for low protein S. Did not recommend repeating. Recommended lifelong anticoagulation due to history of PE/ DVT/SVC thrombus etc. Daily CBC/coags. Transfuse as clinically indicated to maintain hemoglobin greater than 7 We'll recheck CBC this evening light of possible bleeding ID: Severe sepsis Recent staph epi/coag negative staph bacteremia history of enterococcus right upper extremity wound Will continue vancomycin/piperacillin/tazobactam for now. Blood cultures 2 pending Infectious disease consult for antibiotic antibiotic management Last nephrology with regards removal vascular Catheter MSK/Rheum: SLE positive History bilateral [id number] amputation's Right second/third finger amputation Currently not on any long-term medication for SLE. PT evaluate and treat FEN: Hyperphosphatemia See renal. Continue sevelamer 1600 mg 3 times a day recheck phosphorus no Access - Utilize peripheral IV. Unable to place a central line due to no axis. Unable to place upper extremity central venous access secondary to stenosis/ failed multiple previous attempts. Recent failed attempt at right femoral hemodialysis access Dr. corona. Currently with left femoral Vas-Cath Prophylaxis - GI - pantoprazole - DVT - SCD/on warfarin chronically. Holding in light of ED reported guaiac positive stools. Critical Care: The total critical care time was 35 minutes. Time to perform other separately billable procedures was not included in the critical care time. Code Status Full code Discussed Condition With Patient. Dr. Gomez. Mother. Care plan discussed and all questions answered. Problem Qualifiers (1) Fever: Qualified Codes: R50.9 - Fever, unspecified (2) Lupus (systemic lupus erythematosus): Qualified Codes: M32.15 - Tubulo-interstitial nephropathy in systemic lupus erythematosus (3) Anemia: Qualified Codes: N18.6 - End stage renal disease; D63.1 - Anemia in chronic kidney disease; Z99.2 - Dependence on renal dialysis (4) Gastroesophageal reflux disease: Qualified Codes: K21.9 - Gastro-esophageal reflux disease without esophagitis (5) Coronary artery disease: Qualified Codes: I25.10 - Atherosclerotic heart disease of [place] coronary artery without angina pectoris Kwadwo Walters MD Aug 12, 2017 12:21
[2017-08-12] MEDS ORDERED: GLUCAGON 1 MG/ML VIAL OTHER PRN (12:30)
[2017-08-12] MEDS ORDERED: SEVELAMER CARBONATE 800 MG TAB PO SCH (13:00)
--- NOTE | 2017-08-12 13:26 | PD.CONS ---
HPI Consult Requested By Primary Care Physician Unknown History of Present Illness This patient is a 46-year-old male with a history of end-stage renal disease, SLE, hypertension, peripheral vascular disease as well as secondary hyperparathyroidism of renal disease. Unfortunately the patient has had multiple dialysis accesses including dialysis shunts and dialysis catheters in the past complicated by access failure as well as infection. Patient now has very limited options for dialysis access. We were relying on a left femoral dialysis line for access. Fortunately vessel surgery was able to create a left arm AV dialysis fistula back in February. We have used the access for dialysis 3 and the patient was scheduled to have his PermCath removed this Tuesday however presented to the dialysis facility with lethargy and pyrexia. Sepsis is having most likely recurrence of line infection. With hypotension and hypoglycemia. Review of Systems ROS Limitations: Clinical Condition (lethargic.) Past Family Social History Allergies: Coded Allergies: iodine (Unverified Allergy, Severe, blisters, 06/10/17) morphine (Unverified Allergy, Severe, Itching, 06/10/17) potassium iodide (Unverified Allergy, Severe, blisters, 06/10/17) povidone-iodine (Unverified Allergy, Severe, blisters, 06/10/17) sodium iodide (Unverified Allergy, Severe, blisters, 06/10/17) sodium iodide (Unverified Allergy, Severe, blisters, 06/10/17) Past Medical History ESRD on hemodialysis SLE E CAD Hypertension Severe PVD History of DVT Anemia Hyperparathyroidism of renal origin Previous dialysis catheter line infection Known central venous occlusion Past Surgical History Bilateral BKA 2 fingers amputated Previous dialysis access in his left upper extremity Recent AV fistula creation in the right upper extremity Previous revascularization procedures for PVD Reported Medications Reported Meds & Active Scripts Active Blood Glucose Monitor (Blood-Glucose Meter) 1 Each Kit Kit Hydrocortisone 20 Mg Tab 20 Mg PO BID take 1 tab twice a day for 1 weeks then decrease to 1/2 tablet twice day for 1 weeks then take 1/2 tablet once a day for 5 day then stop medication Fludrocortisone (Fludrocortisone Acetate) 0.1 Mg Tab 0.1 Mg PO WITH DIALYSIS Senna Plus 8.6-50 mg (Sennosides-Docusate Sodium) 8.6 Mg-50 Mg Tab 1 Tab PO BID Coumadin (Warfarin) 3 Mg Tab 3 Mg PO DAILY@1600 need INR rechecked in 2-3 days to see if this dose is right for you. Diflucan (Fluconazole) 200 Mg Tab 400 Mg PO DAILY Vancomycin Inj (Vancomycin HCl) 1,000 Mg Inj 1,000 Mg IV 3XA WEEK WITH DIALYS 40 Days Reported Warfarin 4 Mg Tab 4 Mg PO DAILY Xanax (Alprazolam) 1 Mg Tab 1 Mg PO Q8H PRN Protonix (Pantoprazole Sodium) 20 Mg Tab 20 Mg PO DAILY Renagel (Sevelamer HCl) 800 Mg Tab 1,600 Mg PO TID Active Ordered Medications Current Medications Dextrose (D50w (Vial) Inj) 50 ml STK-MED ONCE .ROUTE ; Start 08/12/17 at 09:09; Stop 08/12/17 at 09:10; Status DC Acetaminophen (Tylenol) 650 mg ONCE ONCE PO ; Start 08/12/17 at 09:15; Stop at 09:16; Status DC Vancomycin HCl 1000 mg/Sodium Chloride 250 ml @ 250 mls/hr ONCE STAT IV Last administered on 08/12/17 10:32; Start 08/12/17 at 09:10; Stop 08/12/17 at 10:09 ; Status DC Piperacillin Sod/ Tazobactam Sod 50 ml @ 100 mls/hr ONCE ONCE IV Last administered on 08/12/17 09:48; Start 08/12/17 at 09:15; Stop 08/12/17 at 09:44 ; Status DC Dextrose (D50w (Vial) Inj) 50 ml NOW ONCE IV PUSH Last administered on 10:56; Start 08/12/17 at 10:45; Stop 08/12/17 at 10:46; Status DC Acetaminophen (Tylenol Supp) 650 mg NOW ONCE RECTAL Last administered on 10:56; Start 08/12/17 at 10:45; Stop 08/12/17 at 10:46; Status DC Sodium Chloride 250 ml @ 15 mls/hr ONCE ONCE IV ; Start 08/12/17 at 11:30; Stop 08/13/17 at 04:09 Sodium Chloride 1,000 ml @ 84 mls/hr [id number] IV Last administered on 12:10; Start 08/12/17 at 11:45; Stop 08/12/17 at 12:20; Status DC Sodium Chloride (NS Flush) 2 ml UNSCH PRN IV FLUSH FLUSH AFTER USING IV ACCESS ; Start 08/12/17 at 11:45 Sodium Chloride (NS Flush) 2 ml BID IV FLUSH ; Start 08/12/17 at 21:00 Acetaminophen (Tylenol) 650 mg Q6H PRN PO PAIN 1-10 AND/OR FEVER >101F; Start 08/12/17 at 11:45 Acetaminophen/ Hydrocodone Bitart (Evergreen 5-325 Mg) 1 tab Q4H PRN PO PAIN SCALE 1 TO 5; Start 08/12/17 at 11:45; Stop 08/12/17 at 11:51; Status DC Morphine Sulfate (Morphine Inj) 2 mg Q2H PRN IV PUSH PAIN SCALE 6 TO 10; Start 08/12/17 at 11:45; Stop 08/12/17 at 11:51; Status DC Pantoprazole Sodium (Protonix Inj) 40 mg DAILY IV PUSH ; Start 08/13/17 at 09:00 ; Stop 08/13/17 at 09:00; Status DC Ondansetron HCl (Zofran Inj) 4 mg Q6H PRN IV PUSH NAUSEA OR VOMITING; Start at 11:45 Albuterol/ Ipratropium (Duoneb Neb) 1 ampule Q6HR NEB INH ; Start 08/12/17 at 16:00 Albuterol Sulfate (Albuterol Neb) 2.5 mg Q2HR NEB PRN INH SOB/WHEEZING; Start 08/12/17 at 11:45 Miscellaneous Information 1 Q361D XX ; Start 08/12/17 at 11:45 Senna/Docusate Sodium (Angelika-Colace) 1 tab BID PO ; Start 08/12/17 at 21:00 Magnesium Hydroxide (Milk Of Magnesia Liq) 30 ml Q12H PRN PO Mild constipation ; Start 08/12/17 at 11:45 Sennosides (Senokot) 17.2 mg Q12H PRN PO Moderate constipation; Start 08/12/17 at 11:45 Bisacodyl (Dulcolax Supp) 10 mg DAILY PRN RECTAL SEVERE CONSITIPATION; Start 08/12/17 at 11:45 Lactulose (Lactulose Liq) 30 ml DAILY PRN PO SEVERE CONSITIPATION; Start at 11:45 Midodrine (Proamatine) 10 mg TID@07,12,17 PO ; Start 08/12/17 at 12:00 Hydrocortisone Sodium Succinate (SoluCORTEF INJ) 100 mg Q8HR IV PUSH ; Start at 14:00 Alprazolam (Xanax) 1 mg Q8H PRN PO ANXIETY; Start 08/12/17 at 12:00 Fluconazole (Diflucan) 400 mg DAILY PO ; Start 08/13/17 at 09:00; Stop 08/13/17 at 09:00; Status DC Sevelamer Carbonate (Renvela) 1,600 mg TID PO ; Start 08/12/17 at 13:00 Warfarin Sodium (Coumadin) 4 mg DAILY PO ; Start 08/13/17 at 09:00; Stop at 09:00; Status DC Warfarin Sodium (Coumadin) 3 mg DAILY@1600 PO ; Start 08/12/17 at 16:00; Stop 08/12/17 at 16:00; Status DC Phenylephrine HCl 160 mg/Dextrose 500 ml @ 7.5 mls/hr TITRATE PRN IV Blood pressure management Last administered on 08/12/17t 13:26; Start 08/12/17 at 12: 00 Terbutaline Sulfate (Brethine Inj) 1 mg UNSCH PRN SQ For Extravasation; Start 08/12/17 at 12:00 Piperacillin Sod/ Tazobactam Sod 50 ml @ 100 mls/hr Q8H IV ; Start 08/12/17 at 18:00 Pharmacy Profile Note 0 ml @ 0 mls/hr UNSCH OTHER ; Start 08/12/17 at 12:00 Dextrose/Sodium Chloride 1,000 ml @ 100 mls/hr Q10H IV ; Start 08/12/17 at 12: 30 Dextrose (D50w (Vial) Inj) 50 ml UNSCH PRN IV PUSH HYPOGLYCEMIA-SEE COMMENTS; Start 08/12/17 at 12:30 Glucagon (Glucagon Inj) 1 mg UNSCH PRN OTHER HYPOGLYCEMIA-SEE COMMENTS; Start 08/12/17 at 12:30 Insulin Human Regular (NovoLIN R SUPPLEMENTAL SCALE) 1 ACHS SLIDING SCALE SQ ; Start 08/12/17 at 17:00 Pantoprazole Sodium (Protonix Inj) 40 mg BID IV PUSH ; Start 08/12/17 at 21:00 Albumin Human 50 ml @ 60 mls/hr ONCE ONCE IV ; Start 08/12/17 at 13:00; Stop 08/12/17 at 13:49; Status UNV Epoetin Eddie (Epogen Inj) 10,000 units ONCE ONCE SQ ; Start 08/12/17 at 13:30; Stop 08/12/17 at 13:31; Status UNV Family History Patient lethargic currently. Social History Patient lethargic. Physical Exam Vital Signs Vital Signs Date Time Temp Pulse Resp B/P (MAP) Pulse Ox O2 Delivery O2 Flow Rate FiO2 08/12/17 12:02 113 20 85/43 (57) 98 Non-Rebreather 15.00 08/12/17 11:03 117 20 86/52 (63) 87 Non-Rebreather 15.00 08/12/17 10:35 120 18 87/53 (64) 88 Non-Rebreather 15.00 08/12/17 09:57 123 20 79/49 (59) 88 Non-Rebreather 15.00 08/12/17 09:55 87 Non-Rebreather 15.00 08/12/17 09:39 Non-Rebreather 15.00 08/12/17 09:17 95 Nasal Cannula 2.00 08/12/17 09:17 95 Nasal Cannula 2.00 08/12/17 09:14 101.0 121 18 89/54 (66) Nasal Cannula 2.00 Laboratory Laboratory Tests Test 08/12/17 09:21 08/12/17 09:40 08/12/17 11:01 Blood Gas Puncture Site RT FEMORAL Blood Gas Patient Temperature 98.6 Blood Gas HCO3 23 Blood Gas Base Excess 0.7 Blood Gas Oxygen Saturation 77 Arterial Blood pH 7.56 Arterial Blood Partial Pressure CO2 26 Arterial Blood Partial Pressure O2 41 Arterial Blood Oxygen Content 9.0 Arterial Blood Carboxyhemoglobin 2.3 Arterial Blood Methemoglobin 0.6 Blood Gas Hemoglobin 8.3 Oxygen Delivery Device NASAL CANNULA Blood Gas Liter Flow 3 Blood Urea Nitrogen 63 Creatinine 7.73 Random Glucose 159 Total Protein 6.7 Albumin 3.0 Calcium Level 8.7 Magnesium Level 2.0 Alkaline Phosphatase 63 Aspartate Amino Transf (AST/SGOT) 39 Alanine Aminotransferase (ALT/SGPT) 28 Total Bilirubin 0.6 Sodium Level 136 Potassium Level 3.6 Chloride Level 98 Carbon Dioxide Level 23.4 Anion Gap 15 Estimat Glomerular Filtration Rate 9 Lactic Acid Level 6.6 White Blood Count 10.3 Red Blood Count 2.71 Hemoglobin 8.8 Hematocrit 27.2 Mean Corpuscular Volume 100.4 Mean Corpuscular Hemoglobin 32.4 Mean Corpuscular Hemoglobin Concent 32.3 Red Cell Distribution Width 19.3 Platelet Count 112 Mean Platelet Volume 8.8 Neutrophils (%) (Auto) 91.0 Lymphocytes (%) (Auto) 3.2 Monocytes (%) (Auto) 5.2 Eosinophils (%) (Auto) 0.0 Basophils (%) (Auto) 0.6 Neutrophils # (Auto) 9.4 Lymphocytes # (Auto) 0.3 Monocytes # (Auto) 0.5 Eosinophils # (Auto) 0.0 Basophils # (Auto) 0.1 CBC Comment DIFF FINAL Differential Comment Prothrombin Time 16.6 Prothromb Time International Ratio 1.5 Activated Partial Thromboplast Time 30.6 Date/Time Source Procedure Growth Status 08/12/17 09:40 Blood Peripheral Aerobic Blood Culture Pending Received 08/12/17 09:40 Blood Peripheral Anaerobic Blood Culture Pending Received Result Diagram: 08/12/17 1101 08/12/17 0940 Imaging GENERAL: The patient presently lethargic not in respiratory distress clinically. SKIN: Warm and dry. HEAD: Normocephalic. EYES: No scleral icterus. No injection or drainage. NECK: Supple, trachea midline. No JVD or lymphadenopathy. CARDIOVASCULAR: Regular rate and rhythm without murmurs, gallops, or rubs. RESPIRATORY: Breath sounds equal bilaterally. No accessory muscle use. GASTROINTESTINAL: Abdomen soft, non-tender, nondistended. MUSCULOSKELETAL: No cyanosis, or edema. Bilateral lower extremity amputee. Hemodialysis PermCath left groin. 2 dialysis needles still present in the AV fistula. BACK: Nontender without obvious deformity. No CVA tenderness. Assessment and Plan Problem List: (1) End-stage renal disease on hemodialysis ICD Codes: N18.6 - End stage renal disease; Z99.2 - Dependence on renal dialysis Status: Chronic Plan: Patient completed 3 hours of dialysis today. Labs appear to be relatively stable at this time. Avoid gadolinium. Medication should be adjusted for his end-stage renal disease when indicated. Because of urgency of transport patient's dialysis needles is still present in his fistula. I contacted Jeff the dialysis nurse who indicated that one of the dialysis nurses will come down today to remove the needles. (2) Complications, dialysis, catheter, mechanical ICD Codes: T82.49XA - Other complication of vascular dialysis catheter, initial encounter Status: Acute Plan: I believe sepsis most likely related to a recurrence of PermCath infection. He was scheduled to have his PermCath removed this Tuesday but unfortunately now presents with recurrence of sepsis. I contacted the radiology department and they have been counseled to to remove the PermCath today. Vancomycin has already been administered. Hopefully the patient's clinical status will improve once PermCath has been removed with antibiotics on board. (3) Anemia of renal disease ICD Codes: D63.1 - Anemia in chronic kidney disease Status: Chronic Plan: Continue Epogen for anemia renal disease. (4) Sepsis ICD Codes: A41.9 - Sepsis, unspecified organism Status: Acute Plan: Antibiotics per critical care. Inotropic agent if indicated hypotension. (5) Lupus nephritis ICD Codes: M32.14 - Glomerular disease in systemic lupus erythematosus Status: Chronic Plan: No history of activity recently. Clarence Merlos MD Aug 12, 2017 13:26
[2017-08-12] MEDS ORDERED: LIDOCAINE 1%/EPINEPHrine 1:100,000 SOLN 20 ML VIAL ONE (13:37)
[2017-08-12] MEDS ORDERED: EPOETIN ALFA 10,000 UNITS/ML VIAL SQ ONE (14:00)
[2017-08-12] MEDS ORDERED: ALBUMIN 25% INJ 50 ML IV ONE (14:00)
[2017-08-12] MEDS: HYDROCORTISONE SOD SUCCINATE 100 MG VIAL IV PUSH SCH ×2 (15:01→23:00)
[2017-08-12] MEDS: ACETAMINOPHEN 325 MG TAB PO PRN ×2 (15:35→23:53)
[2017-08-12] MEDS ORDERED: SODIUM PHOSPHATE INJ 15 MMOL in SODIUM CHLORIDE 0.9% INJ 150 ML IV ONE (16:00)
[2017-08-12] MEDS ORDERED: WARFARIN SOD 3 MG TAB PO SCH (16:00)
[2017-08-12] MEDS: INSULIN NovoLIN REGULAR SUPPLEMENTAL SCALE SQ SCH ×2 (17:00→22:59)
--- NOTE | 2017-08-12 17:09 | PD.CONS ---
HPI History of Present Illness This is a 46 year old male with hx SLE, lupus nephritis, ESRD on HD, PE, PAD, GERD, bilat BKA, sent from dialysis for fever. He was found to be anemic with hgb 8.8 with guiac pos stool. He has been having black stool for the last month. he has been on coumadin for blood clots, last had coumading yesterday. Limited hx obtained from pts mother, pt noncontributory. (Mely Maynard) PFSH Past Medical History SLE ESRD PE PAD GERD bilat BKA lupus nephritis Past Surgical History bilat BKA amputation 2 fingers ?abd surgery (Meyl Maynard) Coded Allergies: iodine (Unverified Allergy, Severe, blisters, 08/12/17) morphine (Unverified Allergy, Severe, Itching, 08/12/17) potassium iodide (Unverified Allergy, Severe, blisters, 08/12/17) povidone-iodine (Unverified Allergy, Severe, blisters, 08/12/17) sodium iodide (Unverified Allergy, Severe, blisters, 08/12/17) sodium iodide (Unverified Allergy, Severe, blisters, 08/12/17) Family History leukemia Social History no etoh, tobacco or illicit drug use (Mely Mayanrd) Review of Systems ROS noncontributory (Mely Maynard) GI Exam Vitals I&O Vital Signs Date Time Temp Pulse Resp B/P (MAP) Pulse Ox O2 Delivery O2 Flow Rate FiO2 08/12/17 16:20 102.3 105 18 115/53 (73) 100 Nasal Cannula 2.00 08/12/17 15:41 101.5 115 20 93/52 (66) 99 Nasal Cannula 3.00 08/12/17 15:29 101.5 109 20 62/36 100 08/12/17 15:27 111 20 69/37 (48) 100 Non-Rebreather 15.00 08/12/17 15:20 102.3 114 20 82/51 (61) 100 Non-Rebreather 15.00 08/12/17 15:08 102.3 71 15 78/52 93 08/12/17 14:52 116 20 78/51 (60) 100 Non-Rebreather 15.00 11/3/17 13:54 116 20 65/36 (46) 100 Non-Rebreather 15.00 100 08/12/17 13:36 111 20 71/46 (54) 99 Non-Rebreather 15.00 08/12/17 13:26 114 69/46 08/12/17 13:25 111 20 70/49 (56) 100 Non-Rebreather 15.00 08/12/17 12:02 113 20 85/43 (57) 98 Non-Rebreather 15.00 08/12/17 11:03 117 20 86/52 (63) 87 Non-Rebreather 15.00 08/12/17 10:35 120 18 87/53 (64) 88 Non-Rebreather 15.00 08/12/17 09:57 123 20 79/49 (59) 88 Non-Rebreather 15.00 08/12/17 09:55 87 Non-Rebreather 15.00 08/12/17 09:39 Non-Rebreather 15.00 08/12/17 09:17 95 Nasal Cannula 2.00 08/12/17 09:17 95 Nasal Cannula 2.00 08/12/17 09:14 101.0 121 18 89/54 (66) Nasal Cannula 2.00 I/O 08/11/17 08/11/17 08/11/17 08/12/17 08/12/17 08/12/17 07:00 15:00 23:00 07:00 15:00 23:00 Intake Total 300 ml Balance 300 ml Intake IV Total 300 ml Laboratory Test 08/12/17 09:21 08/12/17 09:40 08/12/17 11:01 08/12/17 13:15 Blood Gas Puncture Site RT FEMORAL Blood Gas Patient Temperature 98.6 Blood Gas HCO3 23 mmol/L Blood Gas Base Excess 0.7 mmol/L Blood Gas Oxygen Saturation 77 % Arterial Blood pH 7.56 Arterial Blood Partial Pressure CO2 26 mmHg Arterial Blood Partial Pressure O2 41 mmHG Arterial Blood Oxygen Content 9.0 Vol % Arterial Blood Carboxyhemoglobin 2.3 % Arterial Blood Methemoglobin 0.6 % Blood Gas Hemoglobin 8.3 G/DL Oxygen Delivery Device NASAL CANNULA Blood Gas Liter Flow 3 L/M Blood Urea Nitrogen 63 MG/DL Creatinine 7.73 MG/DL Random Glucose 159 MG/DL Total Protein 6.7 GM/DL Albumin 3.0 GM/DL Calcium Level 8.7 MG/DL Magnesium Level 2.0 MG/DL Alkaline Phosphatase 63 U/L Aspartate Amino Transf (AST/SGOT) 39 U/L Alanine Aminotransferase (ALT/SGPT) 28 U/L Total Bilirubin 0.6 MG/DL Sodium Level 136 MEQ/L Potassium Level 3.6 MEQ/L Chloride Level 98 MEQ/L Carbon Dioxide Level 23.4 MEQ/L Anion Gap 15 MEQ/L Estimat Glomerular Filtration Rate 9 ML/MIN Lactic Acid Level 6.6 mmol/L 3.6 mmol/L White Blood Count 10.3 TH/MM3 Red Blood Count 2.71 MIL/MM3 Hemoglobin 8.8 GM/DL Hematocrit 27.2 % Mean Corpuscular Volume 100.4 FL Mean Corpuscular Hemoglobin 32.4 PG Mean Corpuscular Hemoglobin Concent 32.3 % Red Cell Distribution Width 19.3 % Platelet Count 112 TH/MM3 Mean Platelet Volume 8.8 FL Neutrophils (%) (Auto) 91.0 % Lymphocytes (%) (Auto) 3.2 % Monocytes (%) (Auto) 5.2 % Eosinophils (%) (Auto) 0.0 % Basophils (%) (Auto) 0.6 % Neutrophils # (Auto) 9.4 TH/MM3 Lymphocytes # (Auto) 0.3 TH/MM3 Monocytes # (Auto) 0.5 TH/MM3 Eosinophils # (Auto) 0.0 TH/MM3 Basophils # (Auto) 0.1 TH/MM3 CBC Comment DIFF FINAL Differential Comment Prothrombin Time 16.6 SEC Prothromb Time International Ratio 1.5 RATIO Activated Partial Thromboplast Time 30.6 SEC Phosphorus Level 0.8 MG/DL Ammonia 35 MCMOL/L Total Creatine Kinase 169 U/L Amylase Level 174 U/L Lipase 613 U/L Thyroid Stimulating Hormone 3rd Gen 3.910 uIU/ML Random Cortisol 26.6 MCG/DL Date/Time Source Procedure Growth Status 08/12/17 09:40 Blood Peripheral Aerobic Blood Culture Pending Received 08/12/17 09:40 Blood Peripheral Anaerobic Blood Culture Pending Received Physical Examination HEENT: PERRL; normocephalic; atraumatic; no jaundice. o2 via mask CHEST: CTA CARDIAC: tachy ABDOMEN: Soft, nondistended, nontender; no hepatosplenomegaly; bowel sounds are present in all four quadrants. EXTREMITIES: No clubbing, cyanosis, or edema. bilat BKE SKIN: Normal; no rash; no jaundice. GAMEPLAY ENGINEER: lethargic (Mely Maynard) Assessment and Plan Plan ASSESSMENT - guiac pos stool, anemia - hgb 8.8 on admission receiving blood. hx black stools for 1 m. no prior hx GIB. - Sepsis, ESRD on HD, per primary PLAN - EGD in am - obtain consent - NPO after midnight - monitor HH - transfuse as needed - further recs to follow This pt seen by myself and Dr Starr and this note is written on his behalf (Mely Maynard) Physician Comments Seen and examined, plan as above, further recommendations to follow pending EGD. (Chon Starr MD) Mely Maynard Aug 12, 2017 17:09 Chon Starr MD Aug 12, 2017 17:16
--- NOTE | 2017-08-12 17:19 | PD.CONS ---
History of Present Illness Service Infectious disease Consult Requested By Dr Randell Walters Reason for Consult Evaluate patient with sepsis Primary Care Physician Unknown Diagnoses: History of Present Illness Patient seen and examined. Records reviewed. Patient is a 46-year-old male, presented to the hospital for further evaluation of hypotension. He has known end-stage renal disease, and gets hemodialysis every Tuesday and Tuesday. He was in the dialysis clinic and he was found to be febrile, hypotensive, and tachycardic. He completed his treatment, and he was advised to go to the hospital for further evaluation and treatment. Patient currently has been having fevers since his been in the emergency room. He is also complaining of being sick to his stomach, and has had some nausea. Denies any abdominal pain. He denies any respiratory complaint. Patient has known central venous occlusion, and the only patent venous access for dialysis has been in his left femoral groin. During his last admission in June, he was treated for staph epidermides and Bryon proptosis sepsis. He was supposed to complete treatment till July 11. The catheter was exchanged during that admission. Patient has a right upper extremity AV fistula, and it was evaluated by the vascular surgeon when he was discharged from the hospital, and the last 3 dialysis, his AV fistula has been used. Patient also during his last admission had problem with hypoglycemia and his workup was negative at that time. Infectious disease consultation has been requested to evaluate the patient. Review of Systems Constitutional: COMPLAINS OF: Fever, Chills Eyes: DENIES: Eye pain Ears, nose, mouth, throat: DENIES: Nasal discharge, Oral lesions, Throat pain, Ear Pain, Sinus Pain Respiratory: DENIES: Cough, Sputum production, Shortness of breath Cardiovascular: DENIES: Chest pain, Palpitations Gastrointestinal: COMPLAINS OF: Nausea, Vomiting, DENIES: Abdominal pain, Diarrhea, Difficulty Swallowing Musculoskeletal: COMPLAINS OF: Muscle aches, DENIES: Joint pain, Joint Swelling Integumentary: DENIES: Rash Neurologic: DENIES: Headache, Localized weakness Psychiatric: DENIES: Hallucinations Past Family Social History Allergies: Coded Allergies: iodine (Unverified Allergy, Severe, blisters, 08/12/17) morphine (Unverified Allergy, Severe, Itching, 08/12/17) potassium iodide (Unverified Allergy, Severe, blisters, 08/12/17) povidone-iodine (Unverified Allergy, Severe, blisters, 08/12/17) sodium iodide (Unverified Allergy, Severe, blisters, 08/12/17) sodium iodide (Unverified Allergy, Severe, blisters, 08/12/17) Past Medical History ESRD, on hemodialysis MWF SLE CAD Hypertension Severe PVD History of DVT Hyperparathyroidism of renal origin Previous hemodialysis catheter line related infection Known central venous occlusion Status post treatment staph epi and bryon sepsis Past Surgical History 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 Reported Meds & Active Scripts Active Blood Glucose Monitor (Blood-Glucose Meter) 1 Each Kit Kit Hydrocortisone 20 Mg Tab 20 Mg PO BID take 1 tab twice a day for 1 weeks then decrease to 1/2 tablet twice day for 1 weeks then take 1/2 tablet once a day for 5 day then stop medication Fludrocortisone (Fludrocortisone Acetate) 0.1 Mg Tab 0.1 Mg PO WITH DIALYSIS Senna Plus 8.6-50 mg (Sennosides-Docusate Sodium) 8.6 Mg-50 Mg Tab 1 Tab PO BID Coumadin (Warfarin) 3 Mg Tab 3 Mg PO DAILY@1600 need INR rechecked in 2-3 days to see if this dose is right for you. Diflucan (Fluconazole) 200 Mg Tab 400 Mg PO DAILY Vancomycin Inj (Vancomycin HCl) 1,000 Mg Inj 1,000 Mg IV 3XA WEEK WITH DIALYS 40 Days Reported Warfarin 4 Mg Tab 4 Mg PO DAILY Xanax (Alprazolam) 1 Mg Tab 1 Mg PO Q8H PRN Protonix (Pantoprazole Sodium) 20 Mg Tab 20 Mg PO DAILY Renagel (Sevelamer HCl) 800 Mg Tab 1,600 Mg PO TID Active Ordered Medications I attest that I obtained, updated or reviewed the home and current medications. Current Medications Medications (Trade) Dose Ordered Sig/Nohelia Route Start Time Stop Time Status Last Admin Sodium Chloride 250 ml @ 15 mls/hr ONCE ONCE IV 08/12/17 11:30 08/13/17 04:09 08/12/17 15:23 (NS Flush) 2 ml UNSCH PRN IV FLUSH 08/12/17 11:45 (NS Flush) 2 ml BID IV FLUSH 08/12/17 21:00 (Tylenol) 650 mg Q6H PRN PO 08/12/17 11:45 08/12/17 15:35 (Zofran Inj) 4 mg Q6H PRN IV PUSH 08/12/17 11:45 (Duoneb Neb) 1 ampule Q6HR NEB INH 08/12/17 16:00 (Albuterol Neb) 2.5 mg Q2HR NEB PRN INH 08/12/17 11:45 Miscellaneous Information 1 Q361D XX 08/12/17 11:45 (Angelika-Colace) 1 tab BID PO 08/12/17 21:00 (Milk Of Magnesia Liq) 30 ml Q12H PRN PO 08/12/17 11:45 (Senokot) 17.2 mg Q12H PRN PO 08/12/17 11:45 (Dulcolax Supp) 10 mg DAILY PRN RECTAL 08/12/17 11:45 (Lactulose Liq) 30 ml DAILY PRN PO 08/12/17 11:45 (Proamatine) 10 mg TID@07,12,17 PO 08/12/17 12:00 (SoluCORTEF INJ) 100 mg Q8HR IV PUSH 08/12/17 14:00 08/12/17 15:01 (Xanax) 1 mg Q8H PRN PO 08/12/17 12:00 (Renvela) 1,600 mg TID PO 08/12/17 13:00 Future Hold Phenylephrine HCl 160 mg/Dextrose 500 ml @ 7.5 mls/hr TITRATE PRN IV 08/12/17 12:00 08/12/17 13:26 (Brethine Inj) 1 mg UNSCH PRN SQ 08/12/17 12:00 Piperacillin Sod/ Tazobactam Sod 50 ml @ 100 mls/hr Q8H IV 08/12/17 18:00 Pharmacy Profile Note 0 ml @ 0 mls/hr UNSCH OTHER 08/12/17 12:00 Dextrose/Sodium Chloride 1,000 ml @ 100 mls/hr Q10H IV 08/12/17 12:30 (D50w (Vial) Inj) 50 ml UNSCH PRN IV PUSH 08/12/17 12:30 (Glucagon Inj) 1 mg UNSCH PRN OTHER 08/12/17 12:30 (NovoLIN R SUPPLEMENTAL SCALE) 1 ACHS SLIDING SCALE SQ 08/12/17 17:00 (Protonix Inj) 40 mg BID IV PUSH 08/12/17 21:00 Sodium Phosphate 15 mmol/Sodium Chloride 155 ml @ 38.75 mls/ hr ONCE ONCE IV 08/12/17 16:00 08/12/17 19:59 Family History Family history of hypertension Social History Ex-smoker quit 12 years ago Denies alcohol abuse Denies illicit drugs Physical Exam Vital Signs Vital Signs Date Time Temp Pulse Resp B/P (MAP) Pulse Ox O2 Delivery O2 Flow Rate FiO2 08/12/17 16:20 102.3 105 18 115/53 (73) 100 Nasal Cannula 2.00 08/12/17 15:41 101.5 115 20 93/52 (66) 99 Nasal Cannula 3.00 08/12/17 15:29 101.5 109 20 62/36 100 08/12/17 15:27 111 20 69/37 (48) 100 Non-Rebreather 15.00 08/12/17 15:20 102.3 114 20 82/51 (61) 100 Non-Rebreather 15.00 08/12/17 15:08 102.3 71 15 78/52 93 08/12/17 14:52 116 20 78/51 (60) 100 Non-Rebreather 15.00 08/12/17 13:54 116 20 65/36 (46) 100 Non-Rebreather 15.00 100 08/12/17 13:36 111 20 71/46 (54) 99 Non-Rebreather 15.00 08/12/17 13:26 114 69/46 08/12/17 13:25 111 20 70/49 (56) 100 Non-Rebreather 15.00 08/12/17 12:02 113 20 85/43 (57) 98 Non-Rebreather 15.00 08/12/17 11:03 117 20 86/52 (63) 87 Non-Rebreather 15.00 08/12/17 10:35 120 18 87/53 (64) 88 Non-Rebreather 15.00 08/12/17 09:57 123 20 79/49 (59) 88 Non-Rebreather 15.00 08/12/17 09:55 87 Non-Rebreather 15.00 08/12/17 09:39 Non-Rebreather 15.00 08/12/17 09:17 95 Nasal Cannula 2.00 08/12/17 09:17 95 Nasal Cannula 2.00 08/12/17 09:14 101.0 121 18 89/54 (66) Nasal Cannula 2.00 Physical Exam GENERAL: Patient is a well-nourished, well-developed male, awake and alert, not in respiratory distress. SKIN: Warm and very dry. No generalized rash, no ecchymoses and no evidence of embolic lesions. HEAD: Atraumatic. Normocephalic. No temporal wasting, or tenderness. EYES: [place] conjunctiva. No petechia or hemorrhage. Pupils equal, round and reactive to light. Extraocular movements full and intact. No scleral icterus. No injection or drainage. EARS, NOSE AND THROAT: Nose without bleeding or purulent nasal discharge. No sinus tenderness. Mucous membranes pink and moist. No oral lesions noted. No exudate. No oral thrush. NECK: Trachea midline. Supple and not tender, no meningeal signs CARDIOVASCULAR: Regular rate and rhythm. No murmurs, rubs or gallops heard RESPIRATORY: Clear to auscultation. Breath sounds equal bilaterally. No rales , wheezing or rhonchi ABDOMEN: Soft, non-tender, nondistended. Bowel sounds present and normoactive. No guarding. No rebound. No organomegaly. EXTREMITIES: No clubbing, cyanosis, or edema. Has bilateral BKA, with a well- healed stump. Dry intact dressing on his left upper thigh where the permacath was just removed today NEUROLOGICAL: Awake and alert. Cranial nerves grossly intact. Motor grossly within normal limits. PSYCHIATRIC: Normal affect, calm and cooperative. LINE: PIVs with no evidence of infection Laboratory Laboratory Tests Test 08/12/17 09:21 08/12/17 09:40 08/12/17 11:01 08/12/17 13:15 Blood Gas Puncture Site RT FEMORAL Blood Gas Patient Temperature 98.6 Blood Gas HCO3 23 Blood Gas Base Excess 0.7 Blood Gas Oxygen Saturation 77 Arterial Blood pH 7.56 Arterial Blood Partial Pressure CO2 26 Arterial Blood Partial Pressure O2 41 Arterial Blood Oxygen Content 9.0 Arterial Blood Carboxyhemoglobin 2.3 Arterial Blood Methemoglobin 0.6 Blood Gas Hemoglobin 8.3 Oxygen Delivery Device NASAL CANNULA Blood Gas Liter Flow 3 Blood Urea Nitrogen 63 Creatinine 7.73 Random Glucose 159 Total Protein 6.7 Albumin 3.0 Calcium Level 8.7 Magnesium Level 2.0 Alkaline Phosphatase 63 Aspartate Amino Transf (AST/SGOT) 39 Alanine Aminotransferase (ALT/SGPT) 28 Total Bilirubin 0.6 Sodium Level 136 Potassium Level 3.6 Chloride Level 98 Carbon Dioxide Level 23.4 Anion Gap 15 Estimat Glomerular Filtration Rate 9 Lactic Acid Level 6.6 3.6 White Blood Count 10.3 Red Blood Count 2.71 Hemoglobin 8.8 Hematocrit 27.2 Mean Corpuscular Volume 100.4 Mean Corpuscular Hemoglobin 32.4 Mean Corpuscular Hemoglobin Concent 32.3 Red Cell Distribution Width 19.3 Platelet Count 112 Mean Platelet Volume 8.8 Neutrophils (%) (Auto) 91.0 Lymphocytes (%) (Auto) 3.2 Monocytes (%) (Auto) 5.2 Eosinophils (%) (Auto) 0.0 Basophils (%) (Auto) 0.6 Neutrophils # (Auto) 9.4 Lymphocytes # (Auto) 0.3 Monocytes # (Auto) 0.5 Eosinophils # (Auto) 0.0 Basophils # (Auto) 0.1 CBC Comment DIFF FINAL Differential Comment Prothrombin Time 16.6 Prothromb Time International Ratio 1.5 Activated Partial Thromboplast Time 30.6 Phosphorus Level 0.8 Ammonia 35 Total Creatine Kinase 169 Amylase Level 174 Lipase 613 Thyroid Stimulating Hormone 3rd Gen 3.910 Random Cortisol 26.6 Date/Time Source Procedure Growth Status 08/12/17 09:40 Blood Peripheral Aerobic Blood Culture Pending Received 08/12/17 09:40 Blood Peripheral Anaerobic Blood Culture Pending Received Result Diagram: 08/12/17 1101 08/12/17 0940 Imaging RADIOLOGY STUDIES/FILMS REVIEWED Chest X-Ray 08/12/17 0910 Signed Impressions: Service Date/Time: Saturday, August 12, 2017 09:25 - CONCLUSION: 1. Stable scattered patchiness bilaterally. Cohn Nye MD Assessment and Plan Assessment and Plan IMPRESSION Sepsis syndrome on presentation which shocked, highly suspicious for line- related sepsis - Has had the chronic femoral permacath in place, just removed today Previous treatment for recent staph epi and bryon sepsis, completed treatment July 11 ESRD, on HD, MWF Known PVD Hx central venous occlusion RECOMMENDATION Agree with Zosyn and elizabetho Add Diflucan Repeat BC Follow C/S and adjust Abx Monitor hemodynamics Monitor progress Further recommendation to follow once work-up completed and depending on his clinical response I will follow along with you Thank you for this consultation Louann Barney MD Aug 12, 2017 17:19
[2017-08-12] MEDS: DEXT 5%-NACL 0.45% 1000 ML INJ 1,000 ML IV SCH (17:49)
[2017-08-12] MEDS: FLUCONAZOLE 200 MG PREMIX BAG 100 ML IV SCH (20:00)
[2017-08-12] MEDS: PIPERACIL-TAZO 2.25 GM PREMIX 50 ML IV SCH (20:30)
[2017-08-12] MEDS: DOCUSATE SODIUM 50 MG/SENNA 8.6 MG TAB PO SCH (21:00)
[2017-08-12] MEDS: SODIUM CHLORIDE 0.9% FLUSH 10 ML FLUSH IV FLUSH SCH (21:00)
[2017-08-12] MEDS: RESP: ALBUTEROL 2.5 MG/IPRATROPIUM 0.5 MG NEB (SCH) INH (22:00)
[2017-08-12] MEDS: PANTOPRAZOLE SODIUM 40 MG VIAL IV PUSH SCH (22:58)
[2017-08-12] MEDS: ALPRAZolam 1 MG TAB PO PRN (23:53)
[2017-08-13] VITALS (14 sets, daily range): BP systolic 86–128; BP diastolic 47–64; PULSE 60–107; RESP 16–25; TEMP 97.2–99; O2SAT 95–100
[2017-08-13] MEDS: HYDROmorphone HCL PF 0.5 MG/0.5 ML SYRINGE IV PRN ×3 (00:21→04:52)
--- NOTE | 2017-08-13 01:15 | PD.PROCEDR ---
Procedure Note Procedure Centerline placement A time-out was completed verifying correct patient, procedure, site, positioning , and special equipment if applicable. The patient was placed in a dependent position appropriate for central line placement based on the vein to be cannulated. The patients right groin was prepped and draped in sterile fashion. 1% Lidocaine was used to anesthetize the surrounding skin area. A triple lumen 9-[place] Cordis catheter was introduced into the the common femoral vein using the Seldinger technique and under ultrasound guidance. The catheter was threaded smoothly over the guide wire and appropriate blood return was obtained. Each lumen of the catheter was evacuated of air and flushed with sterile saline. The catheter was then sutured in place to the skin and a sterile dressing applied. Perfusion to the extremity distal to the point of catheter insertion was checked and found to be adequate. Estimated Blood Loss: 1ml The patient tolerated the procedure well and there were no complications. Ghanshyam Correa MD Aug 13, 2017 01:15
[2017-08-13 01:32] LABS: HEMATOCRIT 28.8 % (39.0-51.0); MEAN CELL VOLUME 95.5 FL (80.0-100.0); MEAN CORPUSCULAR HEMOGLOBIN 31.5 PG (27.0-34.0); PLATELET COUNT 102 TH/MM3 (150-450); RED BLOOD COUNT 3.02 MIL/MM3 (4.50-5.90); RED CELL DISTRIBUTION WIDTH 21.3 % (11.6-17.2); REVIEW FLAG FINAL
[2017-08-13] MEDS: DEXT 5%-NACL 0.45% 1000 ML INJ 1,000 ML IV SCH ×3 (03:09→23:35)
[2017-08-13] MEDS: PIPERACIL-TAZO 2.25 GM PREMIX 50 ML IV SCH ×3 (03:17→18:55)
[2017-08-13] MEDS: RESP: ALBUTEROL 2.5 MG/IPRATROPIUM 0.5 MG NEB (SCH) INH ×4 (03:38→21:34)
[2017-08-13] MEDS: HYDROCORTISONE SOD SUCCINATE 100 MG VIAL IV PUSH SCH ×3 (04:43→23:37)
[2017-08-13] MEDS: MIDODRINE 5 MG TAB PO SCH ×3 (05:29→18:55)
[2017-08-13 05:39] LABS: APTT (PATIENT) 27.5 SEC (24.3-30.1); INTERNATIONAL NORMALIZED RATIO 1.6 RATIO; PROTHROMBIN TIME - PATIENT 17.8 SEC (9.8-11.6)
[2017-08-13 06:03] LABS: ANION GAP 14 MEQ/L (5-15)
[2017-08-13 06:04] LABS: ALKALINE PHOSPHATASE 63 U/L (45-117); ALT (GPT) 57 U/L (12-78); AST (GOT) 93 U/L (15-37); BICARBONATE 22.4 MEQ/L (21.0-32.0); BLOOD UREA NITROGEN 81 MG/DL (7-18); CHLORIDE 100 MEQ/L (98-107); GLOMERULAR FILTRATION RATE 7 ML/MIN (>89); MAGNESIUM 2.2 MG/DL (1.5-2.5); POTASSIUM 3.8 MEQ/L (3.5-5.1); SODIUM (NA) 136 MEQ/L (136-145); TOTAL BILIRUBIN ADULT 0.4 MG/DL (0.2-1.0)
--- NOTE | 2017-08-13 06:53 | RADRPT ---
EXAM DATE/TIME: 08/12/2017 00:00 [place] COMPARISON: No previous studies available for comparison. INDICATIONS : Patient with history of end-stage renal disease in need of Permcath removal due to possible infection . MEDICAL HISTORY : Lupus, Nephritis, ESRD on hemodialysis, Pulmonary embolism, SVC thrombus, PAD, GERD, Anemia, CAD, Hyp erphosphatemia, Asthma SURGICAL HISTORY : Bilateral BKA, Bilateral upper extremity AVF, Multiple dialysis catheter placement and removal ENCOUNTER: Subsequent ACUITY: 1 day PAIN SCORE: 7/10 LOCATION: Low back IMAGE SERIES: PROCEDURE : 1. PermaCath removal. The risks, benefits and alternatives to the procedure were explained and verbal and written consent w as obtained. The site was prepped in sterile fashion. Full sterile technique was used, including ca p, mask, sterile gloves and gown and a large sterile sheet. Hand hygiene and 2% chlorhexidine and/or betadine/alcohol prep was utilized per protocol for cutaneous antisepsis. The skin and subcutaneous tissues were infiltrated with local anesthetic solution. The tract was anesthetized with 1% Lidocaine using. The Permcath was dissected from the subcutaneous tissues and easily removed in one piece. Manual pressure was applied to the venotomy site until hem ostasis was obtained. Sterile dressing was applied. The patient tolerated the procedure well and there were no complications. CONCLUSION: Uncomplicated Permcath removal. Shmuel Beckett MD on August 13, 2017 at 6:51 Board Certified Radiologist. This report was verified electronically.
[2017-08-13 07:29] LABS: BASOPHIL % 0.5 % (0.0-2.0); LYMPH % 1.2 % (9.0-44.0); LYMPHOCYTE # 0.1 TH/MM3 (1.0-4.8); MEAN CELL VOLUME 98.3 FL (80.0-100.0); MEAN CORPUSCULAR HEMOGLOBIN 32.4 PG (27.0-34.0); NEUT % 95.3 % (16.0-70.0); PLATELET COUNT 64 TH/MM3 (150-450); RED BLOOD COUNT 2.44 MIL/MM3 (4.50-5.90); RED CELL DISTRIBUTION WIDTH 21.8 % (11.6-17.2); WHITE BLOOD COUNT 9.4 TH/MM3 (4.0-11.0)
[2017-08-13 07:40] LABS: HEMO FLAGS AUTO DIFF
[2017-08-13] MEDS: INSULIN NovoLIN REGULAR SUPPLEMENTAL SCALE SQ SCH ×4 (08:00→21:00)
[2017-08-13] MEDS ORDERED: FLUCONAZOLE 200 MG TAB PO SCH (09:00)
[2017-08-13] MEDS ORDERED: PANTOPRAZOLE SODIUM 40 MG VIAL IV PUSH SCH (09:00)
[2017-08-13] MEDS ORDERED: WARFARIN SOD 4 MG TAB PO SCH (09:00)
[2017-08-13 09:47] LABS: BANDS 26 % (0-6); NEUTROPHIL # MANUAL DIFF 9.1 TH/MM3 (1.8-7.7); POLYS (SEG NEUTROPHILS) 71 % (16-70); WBC DIFF SAMPLE 100
[2017-08-13 09:48] LABS: PLATELET ESTIMATE SMEAR LOW (NORMAL); PLATELET MORPHOLOGY NORMAL (NORMAL); SCAN/DIFF FINAL DIFF MANUAL
[2017-08-13] MEDS: DOCUSATE SODIUM 50 MG/SENNA 8.6 MG TAB PO SCH ×2 (11:03→23:37)
[2017-08-13] MEDS: PANTOPRAZOLE SODIUM 40 MG VIAL IV PUSH SCH ×2 (11:04→23:37)
[2017-08-13] MEDS: SODIUM CHLORIDE 0.9% FLUSH 10 ML FLUSH IV FLUSH SCH ×2 (11:04→23:39)
[2017-08-13] MEDS ORDERED: PROPOFOL 200 MG/20 ML AMP IV ONE (12:00)
[2017-08-13] MEDS ORDERED: LIDOCAINE HCL 1% PF 5 ML AMPULE OTHER ONE (12:00)
--- NOTE | 2017-08-13 13:38 | GIPROC ---
[facility] [address] [facility]. [facility] [place], [address] EGD PROCEDURE REPORT EXAM DATE: 08/13/2017 PATIENT NAME: Gino Mercado MR #: [id number] BIRTHDATE: 1970 ATTENDING: Chon Rodriguez MD ORDER #: [id number] COMMERCIAL SINGER: Jose Quinones and Jeanette Restrepo STATUS: inpatient INDICATIONS: The patient is a 46 yr old male here for an EGD due to melena PROCEDURE PERFORMED: EGD w/ band ligation of varices MEDICATIONS: None and Per Anesthesia. TOPICAL ANESTHETIC: none CONSENT: The patient understands the risks and benefits of the procedure and understands that these risks include, but are not limited to: sedation, allergic reaction, infection, perforation and/or bleeding. Alternative means of evaluation and treatment include, among others: physical exam, x-rays, and/or surgical intervention. The patient elects to proceed with this endoscopic procedure. medical equipment was checked for proper function. Hand hygiene and appropriate measures for infection prevention was taken. After the risks, benefits and alternatives of the procedure were thoroughly explained, Informed consent was verified, confirmed and timeout was successfully executed by the treatment team. The patient was anesthetized with topical anesthesia and the Pentax EG-[id number] endoscope was introduced through the mouth and advanced to the second portion of the duodenum. Retroflexion was performed and was normal The gastroscope was then slowly withdrawn and removed. ESOPHAGUS: There were large varices in the middle third of the esophagus and lower third esophagus. The varices were bleeding intermittently with spurting spot , 6 bands applied and bleeding controlled. STOMACH: There was severe and erosive gastritis in the entire examined stomach. DUODENUM: Multiple large shallow erosions were found in the duodenal bulb and 2nd part duodenum. ADVERSE EVENTS: There were no complications. IMPRESSIONS: 1. Bleeding Esophageal varices, with active bleeding identified, 6 bands applied to controll the bleeding 2. There was gastritis in the entire examined stomach 3. Multiple large erosions were found in the duodenal bulb and 2nd part duodenum RECOMMENDATIONS: Continue PPI , start Octreotide, PATIENT CONDITION: stable DISPOSITION: Observation REPEAT EXAM: Return 4 weeks EGD Chon Rodriguez MD eSigned: Chon Rodriguez MD 08/13/2017 1:38 PM cc: PATIENT NAME: Gino Mercado MR#: [id number]
[2017-08-13] MEDS ORDERED: SODIUM CHLOR 0.9% 1000 ML INJ 1,000 ML IV PRN (13:53)
[2017-08-13] MEDS ORDERED: SODIUM CHLOR 0.9% 1000 ML INJ 1,000 ML OTHER PRN (13:53)
[2017-08-13] MEDS ORDERED: MANNITOL 12.5 GM/50 ML VIAL IV PRN (14:00)
[2017-08-13] MEDS ORDERED: OCTREOTIDE INJ 500 MCG/ML AMP IV PUSH SCH (14:00)
[2017-08-13] MEDS ORDERED: ONDANSETRON HCL 4 MG/2 ML VIAL IV PUSH PRN (14:00)
[2017-08-13] MEDS ORDERED: ACETAMINOPHEN 325 MG TAB PO PRN (14:00)
[2017-08-13] MEDS ORDERED: SODIUM CHLORIDE 0.9% FLUSH 10 ML FLUSH IV FLUSH PRN (14:00)
[2017-08-13] MEDS ORDERED: NITROGLYCERIN 0.4 MG SL 25 TABS/BTL SL PRN (14:00)
[2017-08-13] MEDS ORDERED: diphenhydrAMINE HCL 25 MG CAP PO PRN (14:00)
[2017-08-13] MEDS ORDERED: cloNIDine HCL 0.1 MG TAB PO PRN (14:00)
--- NOTE | 2017-08-13 14:08 | HHI.NPPN ---
Subjective History of Present Illness This patient is a 46-year-old male with a history of end-stage renal disease, SLE, hypertension, peripheral vascular disease as well as secondary hyperparathyroidism of renal disease. Unfortunately the patient has had multiple dialysis accesses including dialysis shunts and dialysis catheters in the past complicated by access failure as well as infection. Patient now has very limited options for dialysis access. We were relying on a left femoral dialysis line for access. Fortunately vessel surgery was able to create a left arm AV dialysis fistula back in February. We have used the access for dialysis 3 and the patient was scheduled to have his PermCath removed this Tuesday however presented to the dialysis facility with lethargy and pyrexia. Sepsis imost likely recurrence of line infection most likely consideration. Since admission however noted to have GI bleed and upper endoscopy revealed severe gastritis, and duodenum and mention of large bleeding esophageal varices Interval History Patient seen post endoscopy. Lethargic. Review of Systems General General Remarks Patient sedated. Unable to obtain presently. Objective Data Data Vital Signs Date Time Temp Pulse Resp B/P (MAP) Pulse Ox O2 Delivery O2 Flow Rate FiO2 08/13/17 14:00 90 17 104/55 (71) 99 Nasal Cannula 3 08/13/17 13:45 87 20 116/58 (77) 97 Nasal Cannula 6 08/13/17 13:40 97.6 86 19 105/52 (69) 94 Nasal Cannula 6 08/13/17 08:41 Nasal Cannula 08/13/17 06:00 60 08/13/17 04:00 95 08/13/17 04:00 99.0 95 16 86/50 (62) 100 08/13/17 03:40 99 Nasal Cannula 2.00 08/13/17 02:00 106 08/13/17 00:00 97.2 107 25 113/64 (80) 96 08/13/17 00:00 107 08/12/17 23:33 08/12/17 22:00 82 16 121/60 (80) 97 Nasal Cannula 2.00 08/12/17 21:00 88 16 97/54 (68) 99 Nasal Cannula 2.00 08/12/17 20:00 87 16 111/57 (75) 96 Nasal Cannula 2.00 08/12/17 19:00 99.8 84 16 102/53 (69) 98 Nasal Cannula 2.00 08/12/17 18:56 92 18 89/51 (64) 100 Nasal Cannula 2.00 08/12/17 18:18 100 18 112/56 (74) 100 Nasal Cannula 2.00 08/12/17 17:47 100.9 96 18 111/56 (74) 100 Nasal Cannula 2.00 08/12/17 17:06 101 18 125/72 (89) 97 Nasal Cannula 2.00 08/12/17 16:20 102.3 105 18 115/53 (73) 100 Nasal Cannula 2.00 08/12/17 15:41 101.5 115 20 93/52 (66) 99 Nasal Cannula 3.00 08/12/17 15:29 101.5 109 20 62/36 100 08/12/17 15:27 111 20 69/37 (48) 100 Non-Rebreather 15.00 08/12/17 15:20 102.3 114 20 82/51 (61) 100 Non-Rebreather 15.00 08/12/17 15:08 102.3 71 15 78/52 93 08/12/17 14:52 116 20 78/51 (60) 100 Non-Rebreather 15.00 -: 08/13/17 0615 08/13/17 0510 Microbiology 08/12/17 Wound Culture - Preliminary, Resulted NO GROWTH IN 24 HOURS. Medication Review Current Medications Dextrose (D50w (Vial) Inj) 50 ml STK-MED ONCE .ROUTE ; Start 08/12/17 at 09:09; Stop 08/12/17 at 09:10; Status DC Acetaminophen (Tylenol) 650 mg ONCE ONCE PO ; Start 08/12/17 at 09:15; Stop at 09:16; Status DC Vancomycin HCl 1000 mg/Sodium Chloride 250 ml @ 250 mls/hr ONCE STAT IV Last administered on 08/12/17 10:32; Start 08/12/17 at 09:10; Stop 08/12/17 at 10:09 ; Status DC Piperacillin Sod/ Tazobactam Sod 50 ml @ 100 mls/hr ONCE ONCE IV Last administered on 08/12/17 09:48; Start 08/12/17 at 09:15; Stop 08/12/17 at 09:44 ; Status DC Dextrose (D50w (Vial) Inj) 50 ml NOW ONCE IV PUSH Last administered on 10:56; Start 08/12/17 at 10:45; Stop 08/12/17 at 10:46; Status DC Acetaminophen (Tylenol Supp) 650 mg NOW ONCE RECTAL Last administered on 10:56; Start 08/12/17 at 10:45; Stop 08/12/17 at 10:46; Status DC Sodium Chloride 250 ml @ 15 mls/hr ONCE ONCE IV Last administered on 15:23; Start 08/12/17 at 11:30; Stop 08/13/17 at 04:09; Status DC Sodium Chloride 1,000 ml @ 84 mls/hr [id number] IV Last administered on 12:10; Start 08/12/17 at 11:45; Stop 08/12/17 at 12:20; Status DC Sodium Chloride (NS Flush) 2 ml UNSCH PRN IV FLUSH FLUSH AFTER USING IV ACCESS ; Start 08/12/17 at 11:45 Sodium Chloride (NS Flush) 2 ml BID IV FLUSH Last administered on 08/13/17 11: 04; Start 08/12/17 at 21:00 Acetaminophen (Tylenol) 650 mg Q6H PRN PO PAIN 1-5 AND/OR FEVER >101F Last administered on 08/12/17 23:53; Start 08/12/17 at 11:45 Acetaminophen/ Hydrocodone Bitart (Cedar 5-325 Mg) 1 tab Q4H PRN PO PAIN SCALE 1 TO 5; Start 08/12/17 at 11:45; Stop 08/12/17 at 11:51; Status DC Morphine Sulfate (Morphine Inj) 2 mg Q2H PRN IV PUSH PAIN SCALE 6 TO 10; Start 08/12/17 at 11:45; Stop 08/12/17 at 11:51; Status DC Pantoprazole Sodium (Protonix Inj) 40 mg DAILY IV PUSH ; Start 08/13/17 at 09:00 ; Stop 08/13/17 at 09:00; Status DC Ondansetron HCl (Zofran Inj) 4 mg Q6H PRN IV PUSH NAUSEA OR VOMITING; Start at 11:45 Albuterol/ Ipratropium (Duoneb Neb) 1 ampule Q6HR NEB INH Last administered on 08/13/17 08:41; Start 08/12/17 at 16:00 Albuterol Sulfate (Albuterol Neb) 2.5 mg Q2HR NEB PRN INH SOB/WHEEZING; Start 08/12/17 at 11:45 Miscellaneous Information 1 Q361D XX ; Start 08/12/17 at 11:45 Senna/Docusate Sodium (Angelika-Colace) 1 tab BID PO Last administered on 11:03; Start 08/12/17 at 21:00 Magnesium Hydroxide (Milk Of Magnesia Liq) 30 ml Q12H PRN PO Mild constipation ; Start 08/12/17 at 11:45 Sennosides (Senokot) 17.2 mg Q12H PRN PO Moderate constipation; Start 08/12/17 at 11:45 Bisacodyl (Dulcolax Supp) 10 mg DAILY PRN RECTAL SEVERE CONSITIPATION; Start 08/12/17 at 11:45 Lactulose (Lactulose Liq) 30 ml DAILY PRN PO SEVERE CONSITIPATION; Start at 11:45 Midodrine (Proamatine) 10 mg TID@07,12,17 PO Last administered on 08/13/17 11: 03; Start 08/12/17 at 12:00 Hydrocortisone Sodium Succinate (SoluCORTEF INJ) 100 mg Q8HR IV PUSH Last administered on 08/13/17 04:43; Start 08/12/17 at 14:00 Alprazolam (Xanax) 1 mg Q8H PRN PO ANXIETY Last administered on 08/12/17 23:53 ; Start 08/12/17 at 12:00 Fluconazole (Diflucan) 400 mg DAILY PO ; Start 08/13/17 at 09:00; Stop 08/13/17 at 09:00; Status DC Sevelamer Carbonate (Renvela) 1,600 mg TID PO ; Start 08/12/17 at 13:00; Status Future Hold Warfarin Sodium (Coumadin) 4 mg DAILY PO ; Start 08/13/17 at 09:00; Stop at 09:00; Status DC Warfarin Sodium (Coumadin) 3 mg DAILY@1600 PO ; Start 08/12/17 at 16:00; Stop 08/12/17 at 16:00; Status DC Phenylephrine HCl 160 mg/Dextrose 500 ml @ 7.5 mls/hr TITRATE PRN IV Blood pressure management Last administered on 08/12/17 13:26; Start 08/12/17 at 12: 00 Terbutaline Sulfate (Brethine Inj) 1 mg UNSCH PRN SQ For Extravasation Last administered on 08/13/17 03:13; Start 08/12/17 at 12:00 Piperacillin Sod/ Tazobactam Sod 50 ml @ 100 mls/hr Q8H IV Last administered on 08/13/17 11:04; Start 08/12/17 at 18:00 Pharmacy Profile Note 0 ml @ 0 mls/hr UNSCH OTHER ; Start 08/12/17 at 12:00; Stop 08/12/17 at 17:08; Status DC Dextrose/Sodium Chloride 1,000 ml @ 100 mls/hr Q10H IV Last administered on 03:09; Start 08/12/17 at 12:30 Dextrose (D50w (Vial) Inj) 50 ml UNSCH PRN IV PUSH HYPOGLYCEMIA-SEE COMMENTS; Start 08/12/17 at 12:30 Glucagon (Glucagon Inj) 1 mg UNSCH PRN OTHER HYPOGLYCEMIA-SEE COMMENTS; Start 08/12/17 at 12:30 Insulin Human Regular (NovoLIN R SUPPLEMENTAL SCALE) 1 ACHS SLIDING SCALE SQ Last administered on 08/12/17 22:59; Start 08/12/17 at 17:00 Pantoprazole Sodium (Protonix Inj) 40 mg BID IV PUSH Last administered on 11:04; Start 08/12/17 at 21:00 Albumin Human 50 ml @ 60 mls/hr ONCE ONCE IV Last administered on 08/12/17 16 :44; Start 08/12/17 at 14:00; Stop 08/12/17 at 14:49; Status DC Epoetin Eddie (Epogen Inj) 10,000 units ONCE ONCE SQ Last administered on 15:34; Start 08/12/17 at 14:00; Stop 08/12/17 at 14:01; Status DC Lidocaine/ Epinephrine (Xylocaine-Epi 1%-1:100,000 Inj) 20 ml STK-MED ONCE .ROUTE Last administered on 08/12/17 14:40; Start 08/12/17 at 13:37; Stop 08/12/17 at 13:38; Status DC Sodium Phosphate 15 mmol/Sodium Chloride 155 ml @ 38.75 mls/ hr ONCE ONCE IV Last administered on 08/12/17 18:51; Start 08/12/17 at 16:00; Stop 08/12/17 at 19:59; Status DC Vancomycin HCl 1000 mg/Sodium Chloride 250 ml @ 250 mls/hr WITH DIALYSIS IV ; Start 08/15/17 at 14:00 Fluconazole/ Sodium Chloride 100 ml @ 100 mls/hr Q24H IV ; Start 08/12/17 at 20 :00 Hydromorphone HCl (Dilaudid Pf Inj) 0.5 mg Q4H PRN IV PAIN >5/10 Last administered on 08/13/17 03:10; Start 08/13/17 at 00:30; Stop 08/13/17 at 03:23 ; Status DC Hydromorphone HCl (Dilaudid Pf Inj) 0.5 mg Q2H PRN IV PAIN >5/10 Last administered on 08/13/17 04:52; Start 08/13/17 at 03:30 Fentanyl Citrate (fentaNYL INJ) 100 mcg UNSCH X1 PRN IV PUSH SEE DOSE INSTRUCTIONS; Start 08/13/17 at 03:30; Stop 08/14/17 at 03:29 Octreotide Acetate (SandoSTATIN INJ) 250 mcg Q8HR IV PUSH ; Start 08/13/17 at 14 :00; Status UNV Sodium Chloride 1,000 ml @ 0 mls/hr Q0M PRN OTHER For Prime & Rinse Back; Start 08/13/17 at 13:53; Status UNV Sodium Chloride 1,000 ml @ 200 mls/hr Q5H PRN IV WITH DIALYSIS; Start 08/13/17 at 13:53; Status UNV Sodium Chloride 1,000 ml @ 0 mls/hr Q0M PRN OTHER WITH DIALYSIS; Start at 13:53; Status UNV Mannitol (Mannitol Inj) 12.5 gm UNSCH PRN IV WITH DIALYSIS; Start 08/13/17 at 14:00; Status UNV Albumin Human 100 ml @ 60 mls/hr UNSCH PRN IV WITH DIALYSIS; Start 08/13/17 at 14:00; Status UNV Sodium Chloride (NS Flush) 5 ml UNSCH PRN IV FLUSH WITH DIALYSIS; Start at 14:00; Status UNV Ondansetron HCl (Zofran Inj) 4 mg UNSCH PRN IV PUSH WITH DIALYSIS; Start at 14:00; Status UNV Acetaminophen (Tylenol) 650 mg UNSCH PRN PO for headach, pain, temp > 101F; Start 08/13/17 at 14:00; Status UNV Diphenhydramine HCl (Benadryl) 25 mg UNSCH PRN PO for hives/itching/anaphylaxis ; Start 08/13/17 at 14:00; Status UNV Nitroglycerin (Nitrostat Sl) 0.4 mg UNSCH PRN SL CHEST PAIN; Start 08/13/17 at 14:00; Status UNV Clonidine (Catapres) 0.1 mg UNSCH PRN PO for BP > 180/100 X 2 readings; Start 08/13/17 at 14:00; Status UNV Epoetin Eddie (Epogen Inj) 8,000 units UNSCH PRN IV PUSH WITH DIALYSIS; Start 08/13/17 at 14:00; Status UNV Gelatin (Gelfoam 12 Mm/7 Mm Top) 1 foam UNSCH PRN TOP SEE LABEL COMMENTS; Start 08/13/17 at 14:00; Status UNV Physical Exam General Appearance: Well Developed, Well Nourished, No Acute Distress, Comfortable Eyes Eye Exam: Sclera White Pulmonary Resp Exam: Clear Bilaterally, Breath Sounds Equal, No Distress Cardiology CV Exam: Regular, Normal Sinus Rhythm Gastrointestinal/Abdomen GI Exam: Soft, Non-Tender Integumentary Skin Exam: Clear, Warm Extremeties Extremities Exam: Trace Edema Neurologic Neuro Exam: Sedated Assessment/Plan Problem List: (1) End-stage renal disease on hemodialysis ICD Codes: N18.6 - End stage renal disease; Z99.2 - Dependence on renal dialysis Status: Chronic Plan: Patient received a partial dialysis session yesterday. Renal indices significantly elevated. We'll proceed with dialysis again to improve metabolic status with the resumption of outpatient schedule Tuesday and Tuesday next week. Avoid gadolinium. Medication should be adjusted for his end-stage renal disease when indicated. Because of urgency of transport patient's dialysis needles is still present in his fistula. I contacted Jeff the dialysis nurse who indicated that one of the dialysis nurses will come down today to remove the needles. (2) Complications, dialysis, catheter, mechanical ICD Codes: T82.49XA - Other complication of vascular dialysis catheter, initial encounter Status: Acute Plan: I Hemodialysis PermCath removed. AV dialysis fistula appears to be working well. Blood cultures negative 24 hours but will continue to monitor. Antibiotics as per infectious disease. (3) Anemia of renal disease ICD Codes: D63.1 - Anemia in chronic kidney disease Status: Chronic Plan: Continue Epogen for anemia renal disease. GI bleeding contributory to worsening anemia. (4) Esophageal varices determined by endoscopy ICD Codes: I85.00 - Esophageal varices without bleeding Plan: As far as I'm aware the patient has no known history of cirrhosis. Previous hepatitis profile negative. Defer to GI regarding further evaluation if indicated (5) Sepsis ICD Codes: A41.9 - Sepsis, unspecified organism Status: Acute Plan: Antibiotics per critical care. Inotropic agent if indicated hypotension. (6) Gastritis and duodenitis ICD Codes: K29.90 - Gastroduodenitis, unspecified, without bleeding (7) Lupus nephritis ICD Codes: M32.14 - Glomerular disease in systemic lupus erythematosus Status: Chronic Plan: No history of activity recently. Clarence Merlos MD Aug 13, 2017 14:08
[2017-08-13] MEDS ORDERED: DO NOT ADM ANY ANTICOAGULANT DRUGS PRN (15:00)
[2017-08-13] MEDS: GELATIN 12 MM/7 MM FOAM TOP PRN (15:14)
[2017-08-13] MEDS: EPOETIN ALFA 10,000 UNITS/ML VIAL IV PUSH PRN (15:15)
--- NOTE | 2017-08-13 16:09 | HHI.CCPN ---
Subjective Remarks/Hospital Course Hospital Course: This is a 46-year-old AA male. Date of admission . Past medical history includes SLE, lupus nephritis, end-stage renal disease on hemodialysis Tuesday/Tuesday and Tuesday per Dr. Merlos, history of pulmonary embolism/SVC thrombus, peripheral arterial disease, gastroesophageal reflux disease, anemia of chronic kidney disease, anxiety along with hyperphosphatemia. According to mother at bedside, patient started feeling "sick" yesterday become increasingly lethargic. Unknown if febrile/malaise/myalgias. Patient presented to his regular scheduled hemodialysis today where he was hypotensive, tachycardic and febrile. His right AV fistula graft is currently heparinized with syringes intact and in place. In the ED, patient received 1 L normal saline and 1 PRBC. Patient stool guaiac positive. Lactate was 6.6. Patient does have a white cell count. He has a macrocytic anemia and thrombocytopenia. During his last admission was diagnosed with staph epi/coag negative staph bacteremia. He was planned to have his left hemodialysis vascular catheter/femoral removed on Tuesday according to his mother bedside. He was on vancomycin scheduled with hemodialysis and oral Diflucan as an outpatient. Of note his baseline systolic blood pressure is in the 80s. Subjective: 08/13: taken urgently for endoscopy for UGIB. banded active esophageal varices. started on clear liquid diet per GI. lactate bumped this morning, likely secondary to active bleeding, but now bleeding has subsided. patient subjectively feels better than yesterday- currently on HD on my eval. Objective Vital Signs Date Time Temp Pulse Resp B/P (MAP) Pulse Ox O2 Delivery O2 Flow Rate FiO2 08/13/17 14:30 97.8 80 19 136/59 (84) 99 Nasal Cannula 2 08/12/17 13:54 100 Intake and Output 08/13/17 08/13/17 08/14/17 08:00 16:00 00:00 Intake Total 518 ml 100 ml Balance 518 ml 100 ml Result Diagram: 08/13/17 0615 08/13/17 0510 Imaging Last Impressions Chest X-Ray 08/12/17 0910 Signed Impressions: Service Date/Time: Saturday, August 12, 2017 09:25 - CONCLUSION: 1. Stable scattered patchiness bilaterally. Chon Nye MD Objective Remarks GENERAL: 46-year-old AA male, currently resting in bed febrile in no acute distress SKIN: Warm and dry. HEAD: Atraumatic. Normocephalic. EYES: Pupils equal and round about 3 mm bilaterally and reactive. No scleral icterus. No injection or drainage. ENT: No nasal bleeding or discharge. Mucous membranes pink and moist. Oropharynx without erythema NECK: Trachea midline. No JVD. CARDIOVASCULAR: Tachycardic, RR. RESPIRATORY: No accessory muscle use. Breath sounds equal bilaterally. GASTROINTESTINAL: Abdomen soft, non-tender, nondistended. MUSCULOSKELETAL: bilateral [id number] amputation. NEUROLOGICAL: Awake and alert, oriented x 3. follows commands. RASS 0. A/P Assessment and Plan Assessment: 46yM with ESRD and likely tunneled perm-a-cath infection, severe sepsis, and active upper GI bleed s/p urgent endoscopy and esophageal banding. Clinically stable. will trend H&H. repeat lactate to ensure downtrending. will discuss with GI, but likely stable for transfer to floor. Neuro/Psych: Anxiety disorder NOS Acute toxic metabolic encephalopathy likely secondary to severe sepsis - resolving. Currently on alprazolam 1 mg every 8 hours when necessary anxiety Acetaminophen 650 mg every 6 hours when necessary fever Noted allergy to morphine sulfate CV: Severe sepsis - improving. Lactic acidosis Coronary artery disease status post stent PAD Echocardiogram 04/25 revealed EF 55-60%. Mild left ventricular hypertrophy. Trace TR. Serial lactates until clear Started on midodrine 10 mg 3 times a day and stress dose hydrocortisone 100 mg IV every 8 hours in light of Recent steroid use If central access needed will need IR for placement. Question transhepatic/ spinal in this instance Resp: Asthma? Chronic bibasilar opacification Nasal cannula to maintain saturations greater than or equal to 92% Incentive spirometry while awake Albuterol/ipratropium aerosols every 6 hours with albuterol aerosols every 2 hours. Dyspnea GI: Elevated AST Gastroesophageal reflux disease diet per GI- currently clear liquid. Currently on pantoprazole 40 iv twice a day. On 20 mg daily at home Docusate sodium/senna 1 tablet twice a day for bowel regimen Gastroenterology consult for heme-positive stools in ED. : No indication for Monroy catheter Endo: Recent hydrocortisone use Started on stress dose hydrocortisone 100 mill grams IV every 8 hours. Recent taper 20 mg twice a day with tapering dosage. Not clear where currently in cycle. Fludrocortisone Acetate 0.1 Mg Tab 0.1 Mg PO WITH DIALYSIS currently being held in light of hydrocortisone use above Renal: End-stage renal disease on chronic intermittent hemodialysis Tuesday/Tuesday and Tuesday secondary to lupus nephritis Hyperphosphatemia Consults nephrology - Dr. Merlos for hemodialysis Continue sevelamer 1600 mg 3 times a day for hyperphosphatemia Heme: Macrocytic anemia Anemia of chronic kidney disease and acute blood loss Thrombocytopenia Hypercoagulable state On chronic warfarin therapy. Last evaluation in [address] [place]. At that time workup negative except for low protein S. Did not recommend repeating. Recommended lifelong anticoagulation due to history of PE/ DVT/SVC thrombus etc. Daily CBC/coags. Transfuse as clinically indicated to maintain hemoglobin greater than 7 trend h&h ID: Severe sepsis Recent staph epi/coag negative staph bacteremia history of enterococcus right upper extremity wound Will continue vancomycin/piperacillin/tazobactam for now. Blood cultures 2 pending Infectious disease consult for antibiotic antibiotic management tunneled vas cath removed 08/12. 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 PT evaluate and treat FEN: Hyperphosphatemia See renal. Continue sevelamer 1600 mg 3 times a day recheck phosphorus no Access - femoral sheath placed emergently for blood transfusion, however minimal iv access. will keep this today, but would recommend removing once hgb stable. Prophylaxis - GI - pantoprazole - DVT - SCD/on warfarin chronically. Holding in light of active GI bleed. Dispo: transfer to hospitalist services. will discuss with GI about possible transfer out of ICU. Nacho Rodrigues MD Aug 13, 2017 16:09
[2017-08-13 18:54] LABS: HEMATOCRIT 28.3 % (39.0-51.0); MEAN CELL VOLUME 94.8 FL (80.0-100.0); MEAN CORPUSCULAR HEMOGLOBIN 31.5 PG (27.0-34.0); MEAN CORPUSCULAR HGB CONC 33.3 % (32.0-36.0); PLATELET COUNT 105 TH/MM3 (150-450); RED BLOOD COUNT 2.99 MIL/MM3 (4.50-5.90); RED CELL DISTRIBUTION WIDTH 21.2 % (11.6-17.2); REVIEW FLAG FINAL; WHITE BLOOD COUNT 13.7 TH/MM3 (4.0-11.0)
[2017-08-13] MEDS: FLUCONAZOLE 200 MG PREMIX BAG 100 ML IV SCH (23:35)
[2017-08-13] MEDS: OCTREOTIDE INJ 100 MCG/ML VIAL IV PUSH SCH (23:37)
[2017-08-14] VITALS (13 sets, daily range): BP systolic 119–170; BP diastolic 60–85; PULSE 49–79; RESP 12–31; TEMP 97.7–98.3; O2SAT 75–98
[2017-08-14] MEDS: PIPERACIL-TAZO 2.25 GM PREMIX 50 ML IV SCH ×3 (02:00→17:50)
[2017-08-14] MEDS: RESP: ALBUTEROL 2.5 MG/IPRATROPIUM 0.5 MG NEB (SCH) INH ×4 (04:07→21:59)
[2017-08-14 04:21] LABS: HEMATOCRIT 25.9 % (39.0-51.0); MEAN CELL VOLUME 96.4 FL (80.0-100.0); MEAN CORPUSCULAR HGB CONC 33.2 % (32.0-36.0); PLATELET COUNT 104 TH/MM3 (150-450); RED BLOOD COUNT 2.69 MIL/MM3 (4.50-5.90); RED CELL DISTRIBUTION WIDTH 21.1 % (11.6-17.2); REVIEW FLAG FINAL; WHITE BLOOD COUNT 10.4 TH/MM3 (4.0-11.0)
[2017-08-14] MEDS: DEXT 5%-NACL 0.45% 1000 ML INJ 1,000 ML IV SCH ×2 (04:30→12:57)
[2017-08-14 04:49] LABS: BICARBONATE 28.2 MEQ/L (21.0-32.0); POTASSIUM 4.5 MEQ/L (3.5-5.1)
[2017-08-14] MEDS: OCTREOTIDE INJ 100 MCG/ML VIAL IV PUSH SCH (06:00)
[2017-08-14] MEDS: HYDROCORTISONE SOD SUCCINATE 100 MG VIAL IV PUSH SCH ×3 (06:06→21:57)
[2017-08-14] MEDS: MIDODRINE 5 MG TAB PO SCH ×3 (06:06→17:49)
--- NOTE | 2017-08-14 07:53 | HHI.PR ---
Subjective Remarks In bed, says he did vomit last night onceb after bolus of octreotide administration. Octreotide on hold. . No vomiting overnight after the incident. No chest pain or sob. No abdominal pain. Did not have a BM. Objective Vitals Vital Signs Date Time Temp Pulse Resp B/P (MAP) Pulse Ox O2 Delivery O2 Flow Rate FiO2 08/14/17 06:00 57 08/14/17 04:00 98.3 79 31 134/60 (84) 95 08/14/17 04:00 79 08/14/17 02:00 72 08/14/17 00:00 79 08/14/17 00:00 98.1 79 24 119/60 (79) 75 08/13/17 22:00 90 08/13/17 21:34 100 Nasal Cannula 3.00 08/13/17 20:00 83 08/13/17 20:00 98.9 83 16 104/49 (67) 97 08/13/17 18:00 99 08/13/17 16:00 98.7 94 128/60 (82) 95 08/13/17 16:00 94 08/13/17 14:30 97.8 80 19 136/59 (84) 99 Nasal Cannula 2 08/13/17 14:15 84 17 122/61 (81) 99 Nasal Cannula 2 08/13/17 14:00 90 17 104/55 (71) 99 Nasal Cannula 3 08/13/17 14:00 82 08/13/17 13:45 87 20 116/58 (77) 97 Nasal Cannula 6 08/13/17 13:40 97.6 86 19 105/52 (69) 94 Nasal Cannula 6 08/13/17 12:00 119/56 (77) 08/13/17 10:00 89 08/13/17 08:41 Nasal Cannula 08/13/17 08:00 98.5 88 21 96/47 (63) 08/13/17 08:00 88 I/O 08/13/17 08/13/17 08/13/17 08/14/17 08/14/17 08/14/17 07:00 15:00 23:00 07:00 15:00 23:00 Intake Total 518 ml 100 ml 1550 ml 210 ml Output Total 2000 ml 50 ml Balance 518 ml 100 ml -450 ml 160 ml Intake Oral 0 ml 500 ml 60 ml IV Total 518 ml 50 ml 1050 ml 150 ml Other 50 ml Output Emesis 50 ml Hemodialysis 2000 ml # Voids 0 0 0 # Bowel Movements 0 0 0 Result Diagram: 08/14/1739908/14/17399 Imaging Last Impressions Chest X-Ray 08/12/17 0910 Signed Impressions: Service Date/Time: Saturday, August 12, 2017 09:25 - CONCLUSION: 1. Stable scattered patchiness bilaterally. Chon Nye MD Central Venous Line 08/12/17 0000 Signed Impressions: Service Date/Time: Saturday, August 12, 2017 00:00 - CONCLUSION: Uncomplicated Permcath removal. Shmuel Becktet MD Objective Remarks GENERAL: 46-year-old AA male, currently resting in bed febrile in no acute distress SKIN: Warm and dry. HEAD: Atraumatic. Normocephalic. EYES: Pupils equal and round about 3 mm bilaterally and reactive. No scleral icterus. No injection or drainage. ENT: No nasal bleeding or discharge. Mucous membranes pink and moist. Oropharynx without erythema NECK: Trachea midline. No JVD. CARDIOVASCULAR: Tachycardic, RR. RESPIRATORY: No accessory muscle use. Breath sounds equal bilaterally. GASTROINTESTINAL: Abdomen soft, non-tender, nondistended. MUSCULOSKELETAL: bilateral [id number] amputation. NEUROLOGICAL: Awake and alert, oriented x 3. follows commands. RASS 0. A/P Problem List: (1) Elevated lactic acid level ICD Code: E87.2 - Acidosis Status: Acute (2) HYPOTENSION OF HEMODIALYSIS ICD Code: I95.3 - HYPOTENSION OF HEMODIALYSIS Status: Acute (3) Fever ICD Code: R50.9 - Fever, unspecified Status: Acute (4) ESRD (end stage renal disease) on dialysis ICD Code: N18.6 - End stage renal disease; Z99.2 - Dependence on renal dialysis Status: Chronic (5) Lupus (systemic lupus erythematosus) ICD Code: M32.9 - Systemic lupus erythematosus, unspecified (6) Hypoglycemia ICD Code: E16.2 - Hypoglycemia, unspecified (7) Anemia ICD Code: D64.9 - Anemia, unspecified Status: Acute (8) Chronic anticoagulation ICD Code: Z79.01 - it network engineer (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 of anticoagulants (9) H/O hypercoagulable state ICD Code: Z86.2 - Personal history of diseases of the blood and blood-forming organs and certain disorders involving the immune mechanism (10) Elevated glucose ICD Code: R73.09 - Other abnormal glucose (11) Hypoalbuminemia ICD Code: E88.09 - Other disorders of plasma-protein metabolism, not elsewhere classified (12) Thrombocytopenia ICD Code: D69.6 - Thrombocytopenia, unspecified (13) Elevated AST (SGOT) ICD Code: R74.0 - Nonspecific elevation of levels of transaminase and lactic acid dehydrogenase [LDH] (14) Macrocytic anemia ICD Code: D53.9 - Nutritional anemia, unspecified (15) Severe sepsis ICD Code: A41.9 - Sepsis, unspecified organism; R65.20 - Severe sepsis without septic shock (16) History of DVT (deep vein thrombosis) ICD Code: Z86.718 - Personal history of other venous thrombosis and embolism (17) History of pulmonary embolism ICD Code: Z86.711 - Personal history of pulmonary embolism (18) Gastroesophageal reflux disease ICD Code: K21.9 - Gastro-esophageal reflux disease without esophagitis (19) Coronary artery disease ICD Code: I25.10 - Atherosclerotic heart disease of [place] coronary artery without angina pectoris (20) Lupus nephritis ICD Code: M32.14 - Glomerular disease in systemic lupus erythematosus Status: Chronic (21) PAD (peripheral artery disease) ICD Code: I73.9 - Peripheral vascular disease, unspecified Assessment and Plan 46yM with ESRD and likely tunneled perm-a-cath infection, severe sepsis, and active upper GI bleed s/p urgent endoscopy and esophageal banding. Clinically stable. will trend H&H. repeat lactate to ensure downtrending. will discuss with GI, but likely stable for transfer to floor. Neuro/Psych: Anxiety disorder NOS Acute toxic metabolic encephalopathy likely secondary to severe sepsis - resolving. Currently on alprazolam 1 mg every 8 hours when necessary anxiety Acetaminophen 650 mg every 6 hours when necessary fever Noted allergy to morphine sulfate CV: Severe sepsis - improving. Lactic acidosis Coronary artery disease status post stent PAD Echocardiogram 04/25 revealed EF 55-60%. Mild left ventricular hypertrophy. Trace TR. Serial lactates until clear Started on midodrine 10 mg 3 times a day and stress dose hydrocortisone 100 mg IV every 8 hours in light of Recent steroid use If central access needed will need IR for placement. Question transhepatic/ spinal in this instance Resp: Asthma? Chronic bibasilar opacification Nasal cannula to maintain saturations greater than or equal to 92% Incentive spirometry while awake Albuterol/ipratropium aerosols every 6 hours with albuterol aerosols every 2 hours. Dyspnea GI: Elevated AST Gastroesophageal reflux disease diet per GI- currently clear liquid. Currently on pantoprazole 40 iv twice a day. On 20 mg daily at home Docusate sodium/senna 1 tablet twice a day for bowel regimen Gastroenterology consult for heme-positive stools in ED Seen by GI specialist 07/14/17 RN reports that after getting Octreotide via IV push patient's heart rate decreased and he had single episode of hematemesis with dark brown fluid. Octreotide via IV push has been on hold since this incident. Started octreotide : No indication for Monroy catheter Endo: Recent hydrocortisone use Started on stress dose hydrocortisone 100 mill grams IV every 8 hours. Recent taper 20 mg twice a day with tapering dosage. Not clear where currently in cycle. Fludrocortisone Acetate 0.1 Mg Tab 0.1 Mg PO WITH DIALYSIS currently being held in light of hydrocortisone use above Renal: End-stage renal disease on chronic intermittent hemodialysis Tuesday/Tuesday and Tuesday secondary to lupus nephritis Hyperphosphatemia Consults nephrology - Dr. Merlos for hemodialysis Continue sevelamer 1600 mg 3 times a day for hyperphosphatemia Heme: Macrocytic anemia Anemia of chronic kidney disease and acute blood loss Thrombocytopenia Hypercoagulable state On chronic warfarin therapy. Last evaluation in [address] Oreilly. At that time workup negative except for low protein S. Did not recommend repeating. Recommended lifelong anticoagulation due to history of PE/ DVT/SVC thrombus etc. Daily CBC/coags. Transfuse as clinically indicated to maintain hemoglobin greater than 7 trend h&h ID: Severe sepsis Recent staph epi/coag negative staph bacteremia history of enterococcus right upper extremity wound Will continue vancomycin/piperacillin/tazobactam for now. Blood cultures 2 pending Infectious disease consult for antibiotic antibiotic management tunneled vas cath removed 08/12. 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 PT evaluate and treat FEN: Hyperphosphatemia See renal. Continue sevelamer 1600 mg 3 times a day recheck phosphorus no Access - femoral sheath placed emergently for blood transfusion, however minimal iv access, recommend removing once hgb stable. Prophylaxis - GI - pantoprazole - DVT - SCD/on warfarin chronically. Holding in light of active GI bleed. Transfer to med /surg floor when ok with GI specialist Problem Qualifiers (1) Fever: Qualified Codes: R50.9 - Fever, unspecified (2) Lupus (systemic lupus erythematosus): Qualified Codes: M32.15 - Tubulo-interstitial nephropathy in systemic lupus erythematosus (3) Anemia: Qualified Codes: N18.6 - End stage renal disease; D63.1 - Anemia in chronic kidney disease; Z99.2 - Dependence on renal dialysis (4) Gastroesophageal reflux disease: Qualified Codes: K21.9 - Gastro-esophageal reflux disease without esophagitis (5) Coronary artery disease: Qualified Codes: I25.10 - Atherosclerotic heart disease of [place] coronary artery without angina pectoris Yasmin Hernandez MD Aug 14, 2017 07:53
[2017-08-14] MEDS: INSULIN NovoLIN REGULAR SUPPLEMENTAL SCALE SQ SCH ×4 (08:00→21:00)
[2017-08-14] MEDS: DOCUSATE SODIUM 50 MG/SENNA 8.6 MG TAB PO SCH ×2 (10:07→21:00)
[2017-08-14] MEDS: PANTOPRAZOLE SODIUM 40 MG VIAL IV PUSH SCH ×2 (10:08→21:57)
[2017-08-14] MEDS: SODIUM CHLORIDE 0.9% FLUSH 10 ML FLUSH IV FLUSH SCH ×2 (10:08→21:59)
--- NOTE | 2017-08-14 10:19 | HHI.GIFU ---
Subjective Remarks Follow up visit. Lying in bed, in no apparent distress. RN reports that after getting Octreotide via IV push patient's heart rate decreased and he had single episode of hematemesis with dark brown fluid. Octreotide via IV push has been on hold since this incident. (Nora Anderson) Objective Vitals I&O Vital Signs Date Time Temp Pulse Resp B/P (MAP) Pulse Ox O2 Delivery O2 Flow Rate FiO2 08/14/17 09:12 98 Nasal Cannula 3.00 08/14/17 06:00 57 08/14/17 04:00 98.3 79 31 134/60 (84) 95 08/14/17 04:00 79 08/14/17 02:00 72 08/14/17 00:00 79 08/14/17 00:00 98.1 79 24 119/60 (79) 75 08/13/17 22:00 90 08/13/17 21:34 100 Nasal Cannula 3.00 08/13/17 20:00 83 08/13/17 20:00 98.9 83 16 104/49 (67) 97 08/13/17 18:00 99 08/13/17 16:00 98.7 94 128/60 (82) 95 08/13/17 16:00 94 08/13/17 14:30 97.8 80 19 136/59 (84) 99 Nasal Cannula 2 08/13/17 14:15 84 17 122/61 (81) 99 Nasal Cannula 2 08/13/17 14:00 90 17 104/55 (71) 99 Nasal Cannula 3 08/13/17 14:00 82 08/13/17 13:45 87 20 116/58 (77) 97 Nasal Cannula 6 08/13/17 13:40 97.6 86 19 105/52 (69) 94 Nasal Cannula 6 08/13/17 12:00 119/56 (77) 08/13/17 10:00 89 I/O 08/13/17 08/13/17 08/13/17 08/14/17 08/14/17 08/14/17 07:00 15:00 23:00 07:00 15:00 23:00 Intake Total 518 ml 100 ml 1550 ml 210 ml Output Total 2000 ml 50 ml Balance 518 ml 100 ml -450 ml 160 ml Intake Oral 0 ml 500 ml 60 ml IV Total 518 ml 50 ml 1050 ml 150 ml Other 50 ml Output Emesis 50 ml Hemodialysis 2000 ml # Voids 0 0 0 # Bowel Movements 0 0 0 Laboratory Laboratory Tests Test 08/13/17 17:40 08/14/17 04:00 White Blood Count 13.7 10.4 Red Blood Count 2.99 2.69 Hemoglobin 9.4 8.6 Hematocrit 28.3 25.9 Mean Corpuscular Volume 94.8 96.4 Mean Corpuscular Hemoglobin 31.5 32.0 Mean Corpuscular Hemoglobin Concent 33.3 33.2 Red Cell Distribution Width 21.2 21.1 Platelet Count 105 104 Mean Platelet Volume 9.2 8.9 Lactic Acid Level 0.7 Blood Urea Nitrogen 55 Creatinine 7.85 Random Glucose 197 Calcium Level 7.8 Sodium Level 136 Potassium Level 4.5 Chloride Level 97 Carbon Dioxide Level 28.2 Anion Gap 11 Estimat Glomerular Filtration Rate 9 Random Vancomycin Level 19.7 Date/Time Source Procedure Growth Status 08/12/17 09:40 Blood Peripheral Aerobic Blood Culture - Preliminary NO GROWTH IN 1 DAY Resulted 08/12/17 09:40 Blood Peripheral Anaerobic Blood Culture - Preliminary NO GROWTH IN 1 DAY Resulted 08/12/17 14:43 Catheter Tip Wound Culture - Preliminary NO GROWTH IN 24 HOURS. Resulted Imaging Last Impressions Chest X-Ray 08/12/17 0910 Signed Impressions: Service Date/Time: Saturday, August 12, 2017 09:25 - CONCLUSION: 1. Stable scattered patchiness bilaterally. Chon Nye MD Central Venous Line 08/12/17 0000 Signed Impressions: Service Date/Time: Saturday, August 12, 2017 00:00 - CONCLUSION: Uncomplicated Permcath removal. Shmuel Beckett MD Physical Exam HEENT: Normocephalic; atraumatic; no jaundice. NECK: Neck is supple. CHEST: CTA CARDIAC: RRR ABDOMEN: Soft, nondistended, nontender; bowel sounds are present in all four quadrants. EXTREMITIES: No clubbing, cyanosis, or edema. SKIN: Normal; no rash; no jaundice. FARMER CASH GRAIN: No focal deficits; alert and oriented times three. (Nora Anderson) Assessment and Plan Plan ASSESSMENT - Esophageal varices. Had guaiac positive stools, anemia on admission (HH 8.8/ 27.2). S/P 1 transfusion of PRBC. Patient with history of black stools for 1 month, with no prior history of GIB. EGD 08/13/17--1. Bleeding Esophageal varices, with active bleeding identified, 6 bands applied to control the bleeding 2.There was gastritis in the entire examined stomach 3. Multiple large erosions were found in the duodenal bulb and 2nd part duodenum. HH 8.6/25.9 today. Had episode of emesis of dark brown fluid last night after receiving Octreotide via IV push, this medication has been on hold. - Sepsis, ESRD on HD, per primary PLAN - Stop Octreotide IV push - Start Octreotide gtt - Notify GI of any further emesis, active bleeding - Monitor HH, transfuse as needed - Repeat EGD in 4 weeks - Supportive care - Further recommendations to follow based on results of above. Patient seen and examined by Dr. Rodriguez and myself and this note is written on his behalf. (Nora Anderson) Physician Comments No signs of active bleeding now. Plan as above, will start lower dose of Octreotide infusion. Serial HH Advance diet as tolerated. Further recommendations to follow. (Chon Rodriguez MD) Nora Anderson Aug 14, 2017 10:19 Chon Rodriguez MD Aug 14, 2017 12:19
--- NOTE | 2017-08-14 11:10 | EKG ---
Date Performed: 08/12/2017 Time Performed: 09:12:51 PTAGE: 46 years EKG: SINUS TACHYCARDIA NONSPECIFIC ST & T-WAVE ABNORMALITY Consider anterolateral ischemia ABNOR MAL RHYTHM ECG PREVIOUS TRACING : 06/10/2017 15.34 DOCTOR: Bayron Patel Interpretating Date/Time 08/14/2017 11:09:16
[2017-08-14] MEDS ORDERED: OCTREOTIDE 1000 MCG/ML IV SCH (13:00)
[2017-08-14] MEDS: OCTREOTIDE INJ 500 MCG in SODIUM CHLORID 0.9% 500 ML INJ 499.5 ML IV SCH (14:36)
[2017-08-14] MEDS: FLUCONAZOLE 200 MG PREMIX BAG 100 ML IV SCH (21:57)
[2017-08-15] VITALS (13 sets, daily range): BP systolic 89–135; BP diastolic 48–68; PULSE 47–72; RESP 11–19; TEMP 97.5–98.2; O2SAT 92–100
[2017-08-15] MEDS: PIPERACIL-TAZO 2.25 GM PREMIX 50 ML IV SCH ×3 (02:00→17:46)
[2017-08-15] MEDS: RESP: ALBUTEROL 2.5 MG/IPRATROPIUM 0.5 MG NEB (SCH) INH ×3 (04:17→15:23)
[2017-08-15] MEDS: HYDROCORTISONE SOD SUCCINATE 100 MG VIAL IV PUSH SCH ×3 (05:55→21:53)
[2017-08-15] MEDS: MIDODRINE 5 MG TAB PO SCH ×3 (05:56→17:45)
[2017-08-15 06:17] LABS: BICARBONATE 24.4 MEQ/L (21.0-32.0); POTASSIUM 4.7 MEQ/L (3.5-5.1)
[2017-08-15] MEDS: INSULIN NovoLIN REGULAR SUPPLEMENTAL SCALE SQ SCH ×4 (08:00→21:00)
[2017-08-15] MEDS: PANTOPRAZOLE SODIUM 40 MG VIAL IV PUSH SCH ×2 (09:11→21:52)
[2017-08-15] MEDS: DOCUSATE SODIUM 50 MG/SENNA 8.6 MG TAB PO SCH ×2 (09:11→21:52)
[2017-08-15] MEDS: SODIUM CHLORIDE 0.9% FLUSH 10 ML FLUSH IV FLUSH SCH ×2 (09:12→21:53)
--- NOTE | 2017-08-15 09:18 | HHI.PR ---
Subjective Remarks This is a 46-year-old AA male. Date of admission . Past medical history includes SLE, lupus nephritis, end-stage renal disease on hemodialysis Tuesday/Tuesday and Tuesday per Dr. Merlos, history of pulmonary embolism/SVC thrombus, peripheral arterial disease, gastroesophageal reflux disease, anemia of chronic kidney disease, anxiety along with hyperphosphatemia. According to mother at bedside, patient started feeling "sick" yesterday become increasingly lethargic. Unknown if febrile/malaise/myalgias. Patient presented to his regular scheduled hemodialysis today where he was hypotensive, tachycardic and febrile. His right AV fistula graft is currently heparinized with syringes intact and in place. In the ED, patient received 1 L normal saline and 1 PRBC. Patient stool guaiac positive. Lactate was 6.6. Patient does have a white cell count. He has a macrocytic anemia and thrombocytopenia. During his last admission was diagnosed with staph epi/coag negative staph bacteremia. He was planned to have his left hemodialysis vascular catheter/femoral removed on Tuesday according to his mother bedside. He was on vancomycin scheduled with hemodialysis and oral Diflucan as an outpatient. Of note his baseline systolic blood pressure is in the 80s. Subjective: 08/13: taken urgently for endoscopy for UGIB. banded active esophageal varices. started on clear liquid diet per GI. lactate bumped this morning, likely secondary to active bleeding, but now bleeding has subsided. patient subjectively feels better than yesterday- currently on HD on my eval. 11-5 In bed, says he did vomit last night once after bolus of octreotide administration. Octreotide on hold. . No vomiting overnight after the incident. No chest pain or sob. No abdominal pain. Did not have a BM. 11-6 CAN TRANSFER TO FLOOR RESUME HD ON TUESDAY, TUESDAY, TUESDAY DW RN AND PT NEEDS PT AND OT AM LABS WILL NEED CHRONIC ANTICOAGULATION IN FUTURE- ONCE HEMOGLOBIN STABILIZES Objective Vitals Vital Signs Date Time Temp Pulse Resp B/P (MAP) Pulse Ox O2 Delivery O2 Flow Rate FiO2 08/15/17 08:59 99 Nasal Cannula 2.00 08/15/17 06:00 49 08/15/17 04:00 98.2 50 11 129/61 (83) 95 08/15/17 04:00 50 08/15/17 02:00 72 08/15/17 00:00 98.0 51 13 130/61 (84) 94 08/15/17 00:00 51 08/14/17 22:00 52 08/14/17 22:00 98 Nasal Cannula 3.00 08/14/17 20:00 97.8 49 12 131/60 (83) 94 08/14/17 20:00 49 08/14/17 18:00 66 08/14/17 16:00 52 08/14/17 16:00 98.0 52 12 170/71 (104) 98 08/14/17 14:00 59 08/14/17 12:00 97.7 58 19 146/85 (105) 97 08/14/17 12:00 58 08/14/17 10:00 55 08/14/17 09:12 98 Nasal Cannula 3.00 I/O 08/14/17 08/14/17 08/14/17 08/15/17 08/15/17 08/15/17 07:00 15:00 23:00 07:00 15:00 23:00 Intake Total 210 ml 450 ml 150 ml Output Total 50 ml Balance 160 ml 450 ml 150 ml Intake Oral 60 ml 400 ml 0 ml IV Total 150 ml 50 ml 150 ml Output Emesis 50 ml # Voids 0 0 1 # Bowel Movements 0 0 0 Result Diagram: 08/14/17 0400 08/15/17 0430 Other Results Laboratory Tests Test 08/12/17 09:21 08/12/17 09:40 08/12/17 11:01 08/12/17 13:15 Blood Gas Puncture Site RT FEMORAL Blood Gas Patient Temperature 98.6 Blood Gas HCO3 23 mmol/L Blood Gas Base Excess 0.7 mmol/L Blood Gas Oxygen Saturation 77 % Arterial Blood pH 7.56 Arterial Blood Partial Pressure CO2 26 mmHg Arterial Blood Partial Pressure O2 41 mmHG Arterial Blood Oxygen Content 9.0 Vol % Arterial Blood Carboxyhemoglobin 2.3 % Arterial Blood Methemoglobin 0.6 % Blood Gas Hemoglobin 8.3 G/DL Oxygen Delivery Device NASAL CANNULA Blood Gas Liter Flow 3 L/M Blood Urea Nitrogen 63 MG/DL Creatinine 7.73 MG/DL Random Glucose 159 MG/DL Total Protein 6.7 GM/DL Albumin 3.0 GM/DL Calcium Level 8.7 MG/DL Magnesium Level 2.0 MG/DL Alkaline Phosphatase 63 U/L Aspartate Amino Transf (AST/SGOT) 39 U/L Alanine Aminotransferase (ALT/SGPT) 28 U/L Total Bilirubin 0.6 MG/DL Sodium Level 136 MEQ/L Potassium Level 3.6 MEQ/L Chloride Level 98 MEQ/L Carbon Dioxide Level 23.4 MEQ/L Anion Gap 15 MEQ/L Estimat Glomerular Filtration Rate 9 ML/MIN Lactic Acid Level 6.6 mmol/L 3.6 mmol/L White Blood Count 10.3 TH/MM3 Red Blood Count 2.71 MIL/MM3 Hemoglobin 8.8 GM/DL Hematocrit 27.2 % Mean Corpuscular Volume 100.4 FL Mean Corpuscular Hemoglobin 32.4 PG Mean Corpuscular Hemoglobin Concent 32.3 % Red Cell Distribution Width 19.3 % Platelet Count 112 TH/MM3 Mean Platelet Volume 8.8 FL Neutrophils (%) (Auto) 91.0 % Lymphocytes (%) (Auto) 3.2 % Monocytes (%) (Auto) 5.2 % Eosinophils (%) (Auto) 0.0 % Basophils (%) (Auto) 0.6 % Neutrophils # (Auto) 9.4 TH/MM3 Lymphocytes # (Auto) 0.3 TH/MM3 Monocytes # (Auto) 0.5 TH/MM3 Eosinophils # (Auto) 0.0 TH/MM3 Basophils # (Auto) 0.1 TH/MM3 CBC Comment DIFF FINAL Differential Comment Prothrombin Time 16.6 SEC Prothromb Time International Ratio 1.5 RATIO Activated Partial Thromboplast Time 30.6 SEC Phosphorus Level 0.8 MG/DL Ammonia 35 MCMOL/L Total Creatine Kinase 169 U/L Amylase Level 174 U/L Lipase 613 U/L Thyroid Stimulating Hormone 3rd Gen 3.910 uIU/ML Random Cortisol 26.6 MCG/DL Test 08/13/17 00:00 08/13/17 01:15 08/13/17 05:10 08/13/17 06:15 Nasal Screen MRSA (PCR) MRSA NOT DETECTED White Blood Count 12.0 TH/MM3 9.4 TH/MM3 Red Blood Count 3.02 MIL/MM3 2.44 MIL/MM3 Hemoglobin 9.5 GM/DL 7.9 GM/DL Hematocrit 28.8 % 24.0 % Mean Corpuscular Volume 95.5 FL 98.3 FL Mean Corpuscular Hemoglobin 31.5 PG 32.4 PG Mean Corpuscular Hemoglobin Concent 33.0 % 33.0 % Red Cell Distribution Width 21.3 % 21.8 % Platelet Count 102 TH/MM3 64 TH/MM3 Mean Platelet Volume 8.8 FL 8.9 FL Lactic Acid Level 2.7 mmol/L 4.4 mmol/L Prothrombin Time 17.8 SEC Prothromb Time International Ratio 1.6 RATIO Activated Partial Thromboplast Time 27.5 SEC Blood Urea Nitrogen 81 MG/DL Creatinine 10.47 MG/DL Random Glucose 155 MG/DL Total Protein 6.6 GM/DL Albumin 2.9 GM/DL Calcium Level 7.8 MG/DL Phosphorus Level 5.4 MG/DL Magnesium Level 2.2 MG/DL Alkaline Phosphatase 63 U/L Aspartate Amino Transf (AST/SGOT) 93 U/L Alanine Aminotransferase (ALT/SGPT) 57 U/L Total Bilirubin 0.4 MG/DL Sodium Level 136 MEQ/L Potassium Level 3.8 MEQ/L Chloride Level 100 MEQ/L Carbon Dioxide Level 22.4 MEQ/L Anion Gap 14 MEQ/L Estimat Glomerular Filtration Rate 7 ML/MIN Neutrophils (%) (Auto) 95.3 % Lymphocytes (%) (Auto) 1.2 % Monocytes (%) (Auto) 3.0 % Eosinophils (%) (Auto) 0.0 % Basophils (%) (Auto) 0.5 % Neutrophils # (Auto) 9.0 TH/MM3 Lymphocytes # (Auto) 0.1 TH/MM3 Monocytes # (Auto) 0.3 TH/MM3 Eosinophils # (Auto) 0.0 TH/MM3 Basophils # (Auto) 0.0 TH/MM3 CBC Comment AUTO DIFF Differential Total Cells Counted 100 Neutrophils % (Manual) 71 % Band Neutrophils % 26 % Lymphocytes % 2 % Monocytes % 1 % Neutrophils # (Manual) 9.1 TH/MM3 Differential Comment FINAL DIFF MANUAL Platelet Estimate LOW Platelet Morphology Comment NORMAL Test 08/13/17 17:40 08/14/17 04:00 08/15/17 04:30 White Blood Count 13.7 TH/MM3 10.4 TH/MM3 Red Blood Count 2.99 MIL/MM3 2.69 MIL/MM3 Hemoglobin 9.4 GM/DL 8.6 GM/DL Hematocrit 28.3 % 25.9 % Mean Corpuscular Volume 94.8 FL 96.4 FL Mean Corpuscular Hemoglobin 31.5 PG 32.0 PG Mean Corpuscular Hemoglobin Concent 33.3 % 33.2 % Red Cell Distribution Width 21.2 % 21.1 % Platelet Count 105 TH/MM3 104 TH/MM3 Mean Platelet Volume 9.2 FL 8.9 FL Lactic Acid Level 0.7 mmol/L Blood Urea Nitrogen 55 MG/DL 62 MG/DL Creatinine 7.85 MG/DL 9.72 MG/DL Random Glucose 197 MG/DL 131 MG/DL Calcium Level 7.8 MG/DL 7.4 MG/DL Sodium Level 136 MEQ/L 134 MEQ/L Potassium Level 4.5 MEQ/L 4.7 MEQ/L Chloride Level 97 MEQ/L 97 MEQ/L Carbon Dioxide Level 28.2 MEQ/L 24.4 MEQ/L Anion Gap 11 MEQ/L 13 MEQ/L Estimat Glomerular Filtration Rate 9 ML/MIN 7 ML/MIN Random Vancomycin Level 19.7 COMMENT Albumin 2.8 GM/DL Phosphorus Level 7.7 MG/DL Imaging Last Impressions Chest X-Ray 08/12/17 0910 Signed Impressions: Service Date/Time: Saturday, August 12, 2017 09:25 - CONCLUSION: 1. Stable scattered patchiness bilaterally. Chon Nye MD Central Venous Line 08/12/17 0000 Signed Impressions: Service Date/Time: Saturday, August 12, 2017 00:00 - CONCLUSION: Uncomplicated Permcath removal. Shmuel Beckett MD Objective Remarks GENERAL: AWAKE ALERT AND ORIENTED TALKATIVE AND COOPERATIVE SKIN: Warm and dry. HEAD: Atraumatic. Normocephalic. EYES: Pupils equal and round. No scleral icterus. No injection or drainage. ENT: No nasal bleeding or discharge. Mucous membranes pink and moist.TONGUE MIDLINE NECK: Trachea midline. No JVD. SUPPLE CARDIOVASCULAR: Regular rate and rhythm. S1, S2 NO S3 OR S4 NO HEAVE OR THRILL RESPIRATORY: No accessory muscle use. Clear to auscultation. Breath sounds equal bilaterally. GASTROINTESTINAL: Abdomen soft, non-tender, nondistended. Hepatic and splenic margins not palpable. MUSCULOSKELETAL: Extremities without clubbing, cyanosis, or edema. 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 No obvious cranial nerve deficits. Motor grossly within normal limits. Five out of 5 muscle strength in the arms and legs. Normal speech.BL BKA RIGHT HAND 2ND AND 3RD DIGIT AMPUTATIONS PSYCHIATRIC: Appropriate mood and affect; insight and judgment normal. Procedures EGD PROCEDURE REPORT EXAM DATE: 08/13/2017 INDICATIONS: The patient is a 46 yr old male here for an EGD due to melena PROCEDURE PERFORMED: EGD w/ band ligation of varices MEDICATIONS: None and Per Anesthesia. TOPICAL ANESTHETIC: none CONSENT: The patient understands the risks and benefits of the procedure and understands that these risks include, but are not limited to: sedation, allergic reaction, infection, perforation and/or bleeding. Alternative means of evaluation and treatment include, among others: physical exam, x-rays, and/or surgical intervention. The patient elects to proceed with this endoscopic procedure. medical equipment was checked for proper function. Hand hygiene and appropriate measures for infection prevention was taken. After the risks, benefits and alternatives of the procedure were thoroughly explained, Informed consent was verified, confirmed and timeout was successfully executed by the treatment team. The patient was anesthetized with topical anesthesia and the Pentax [id number] endoscope was introduced through the mouth and advanced to the second portion of the duodenum. Retroflexion was performed and was normal The gastroscope was then slowly withdrawn and removed. ESOPHAGUS: There were large varices in the middle third of the esophagus and lower third esophagus. The varices were bleeding intermittently with spurting spot , 6 bands applied and bleeding controlled. STOMACH: There was severe and erosive gastritis in the entire examined stomach. DUODENUM: Multiple large shallow erosions were found in the duodenal bulb and 2nd part duodenum. ADVERSE EVENTS: There were no complications. IMPRESSIONS: 1. Bleeding Esophageal varices, with active bleeding identified, 6 bands applied to controll the bleeding 2. There was gastritis in the entire examined stomach 3. Multiple large erosions were found in the duodenal bulb and 2nd part duodenum RECOMMENDATIONS: Continue PPI , start Octreotide, PATIENT CONDITION: stable DISPOSITION: Observation REPEAT EXAM: Return 4 weeks EGD Chon Rodriguez MD 08/13/2017 1:38 PM Medications and IVs Current Medications Dextrose (D50w (Vial) Inj) 50 ml STK-MED ONCE .ROUTE ; Start 08/12/17 at 09:09; Stop 08/12/17 at 09:10; Status DC Acetaminophen (Tylenol) 650 mg ONCE ONCE PO ; Start 08/12/17 at 09:15; Stop at 09:16; Status DC Vancomycin HCl 1000 mg/Sodium Chloride 250 ml @ 250 mls/hr ONCE STAT IV Last administered on 08/12/17 10:32; Start 08/12/17 at 09:10; Stop 08/12/17 at 10:09 ; Status DC Piperacillin Sod/ Tazobactam Sod 50 ml @ 100 mls/hr ONCE ONCE IV Last administered on 08/12/17 09:48; Start 08/12/17 at 09:15; Stop 08/12/17 at 09:44 ; Status DC Dextrose (D50w (Vial) Inj) 50 ml NOW ONCE IV PUSH Last administered on 10:56; Start 08/12/17 at 10:45; Stop 08/12/17 at 10:46; Status DC Acetaminophen (Tylenol Supp) 650 mg NOW ONCE RECTAL Last administered on 10:56; Start 08/12/17 at 10:45; Stop 08/12/17 at 10:46; Status DC Sodium Chloride 250 ml @ 15 mls/hr ONCE ONCE IV Last administered on 15:23; Start 08/12/17 at 11:30; Stop 08/13/17 at 04:09; Status DC Sodium Chloride 1,000 ml @ 84 mls/hr [id number] IV Last administered on 12:10; Start 08/12/17 at 11:45; Stop 08/12/17 at 12:20; Status DC Sodium Chloride (NS Flush) 2 ml UNSCH PRN IV FLUSH FLUSH AFTER USING IV ACCESS ; Start 08/12/17 at 11:45 Sodium Chloride (NS Flush) 2 ml BID IV FLUSH Last administered on 08/14/17 21: 59; Start 08/12/17 at 21:00 Acetaminophen (Tylenol) 650 mg Q6H PRN PO PAIN 1-5 AND/OR FEVER >101F Last administered on 08/12/17 23:53; Start 08/12/17 at 11:45 Acetaminophen/ Hydrocodone Bitart ([place] 5-325 Mg) 1 tab Q4H PRN PO PAIN SCALE 1 TO 5; Start 08/12/17 at 11:45; Stop 08/12/17 at 11:51; Status DC Morphine Sulfate (Morphine Inj) 2 mg Q2H PRN IV PUSH PAIN SCALE 6 TO 10; Start 08/12/17 at 11:45; Stop 08/12/17 at 11:51; Status DC Pantoprazole Sodium (Protonix Inj) 40 mg DAILY IV PUSH ; Start 08/13/17 at 09:00 ; Stop 08/13/17 at 09:00; Status DC Ondansetron HCl (Zofran Inj) 4 mg Q6H PRN IV PUSH NAUSEA OR VOMITING; Start at 11:45 Albuterol/ Ipratropium (Duoneb Neb) 1 ampule Q6HR NEB INH Last administered on 08/15/17 08:58; Start 08/12/17 at 16:00 Albuterol Sulfate (Albuterol Neb) 2.5 mg Q2HR NEB PRN INH SOB/WHEEZING; Start 08/12/17 at 11:45 Miscellaneous Information 1 Q361D XX ; Start 08/12/17 at 11:45 Senna/Docusate Sodium (Angelika-Colace) 1 tab BID PO Last administered on 10:07; Start 08/12/17 at 21:00 Magnesium Hydroxide (Milk Of Magnesia Liq) 30 ml Q12H PRN PO Mild constipation ; Start 08/12/17 at 11:45 Sennosides (Senokot) 17.2 mg Q12H PRN PO Moderate constipation; Start 08/12/17 at 11:45 Bisacodyl (Dulcolax Supp) 10 mg DAILY PRN RECTAL SEVERE CONSITIPATION; Start 08/12/17 at 11:45 Lactulose (Lactulose Liq) 30 ml DAILY PRN PO SEVERE CONSITIPATION; Start at 11:45 Midodrine (Proamatine) 10 mg TID@,,17 PO Last administered on 08/14/17 17: 49; Start 08/12/17 at 12:00 Hydrocortisone Sodium Succinate (SoluCORTEF INJ) 100 mg Q8HR IV PUSH Last administered on 08/15/17 05:55; Start 08/12/17 at 14:00 Alprazolam (Xanax) 1 mg Q8H PRN PO ANXIETY Last administered on 08/12/17 23:53 ; Start 08/12/17 at 12:00 Fluconazole (Diflucan) 400 mg DAILY PO ; Start 08/13/17 at 09:00; Stop 08/13/17 at 09:00; Status DC Sevelamer Carbonate (Renvela) 1,600 mg TID PO ; Start 08/12/17 at 13:00; Status Future Hold Warfarin Sodium (Coumadin) 4 mg DAILY PO ; Start 08/13/17 at 09:00; Stop at 09:00; Status DC Warfarin Sodium (Coumadin) 3 mg DAILY@1600 PO ; Start 08/12/17 at 16:00; Stop 08/12/17 at 16:00; Status DC Phenylephrine HCl 160 mg/Dextrose 500 ml @ 7.5 mls/hr TITRATE PRN IV Blood pressure management Last administered on 08/12/17 13:26; Start 08/12/17 at 12: 00 Terbutaline Sulfate (Brethine Inj) 1 mg UNSCH PRN SQ For Extravasation Last administered on 08/13/17 03:13; Start 08/12/17 at 12:00 Piperacillin Sod/ Tazobactam Sod 50 ml @ 100 mls/hr Q8H IV Last administered on 08/15/17 02:00; Start 08/12/17 at 18:00 Pharmacy Profile Note 0 ml @ 0 mls/hr UNSCH OTHER ; Start 08/12/17 at 12:00; Stop 08/12/17 at 17:08; Status DC Dextrose/Sodium Chloride 1,000 ml @ 30 mls/hr Q24H IV Last administered on 12:57; Start 08/12/17 at 12:30 Dextrose (D50w (Vial) Inj) 50 ml UNSCH PRN IV PUSH HYPOGLYCEMIA-SEE COMMENTS; Start 08/12/17 at 12:30 Glucagon (Glucagon Inj) 1 mg UNSCH PRN OTHER HYPOGLYCEMIA-SEE COMMENTS; Start 08/12/17 at 12:30 Insulin Human Regular (NovoLIN R SUPPLEMENTAL SCALE) 1 ACHS SLIDING SCALE SQ Last administered on 08/14/17 12:56; Start 08/12/17 at 17:00 Pantoprazole Sodium (Protonix Inj) 40 mg BID IV PUSH Last administered on 21:57; Start 08/12/17 at 21:00 Albumin Human 50 ml @ 60 mls/hr ONCE ONCE IV Last administered on 08/12/17 16 :44; Start 08/12/17 at 14:00; Stop 08/12/17 at 14:49; Status DC Epoetin Eddie (Epogen Inj) 10,000 units ONCE ONCE SQ Last administered on 15:34; Start 08/12/17 at 14:00; Stop 08/12/17 at 14:01; Status DC Lidocaine/ Epinephrine (Xylocaine-Epi 1%-1:100,000 Inj) 20 ml STK-MED ONCE .ROUTE Last administered on 08/12/17 14:40; Start 08/12/17 at 13:37; Stop 08/12/17 at 13:38; Status DC Sodium Phosphate 15 mmol/Sodium Chloride 155 ml @ 38.75 mls/ hr ONCE ONCE IV Last administered on 08/12/17 18:51; Start 08/12/17 at 16:00; Stop 08/12/17 at 19:59; Status DC Vancomycin HCl 1000 mg/Sodium Chloride 250 ml @ 250 mls/hr WITH DIALYSIS IV ; Start 08/15/17 at 14:00 Fluconazole/ Sodium Chloride 100 ml @ 100 mls/hr Q24H IV Last administered on 08/14/17 21:57; Start 08/12/17 at 20:00 Hydromorphone HCl (Dilaudid Pf Inj) 0.5 mg Q4H PRN IV PAIN >5/10 Last administered on 08/13/17 03:10; Start 08/13/17 at 00:30; Stop 08/13/17 at 03:23 ; Status DC Hydromorphone HCl (Dilaudid Pf Inj) 0.5 mg Q2H PRN IV PAIN >5/10 Last administered on 08/13/17 04:52; Start 08/13/17 at 03:30 Fentanyl Citrate (fentaNYL INJ) 100 mcg UNSCH X1 PRN IV PUSH SEE DOSE INSTRUCTIONS; Start 08/13/17 at 03:30; Stop 08/14/17 at 03:29; Status DC Octreotide Acetate (SandoSTATIN INJ) 250 mcg Q8HR IV PUSH ; Start 08/13/17 at 14 :00; Stop 08/13/17 at 19:59; Status DC Sodium Chloride 1,000 ml @ 0 mls/hr Q0M PRN OTHER For Prime & Rinse Back; Start 08/13/17 at 13:53 Sodium Chloride 1,000 ml @ 200 mls/hr Q5H PRN IV WITH DIALYSIS; Start 08/13/17 at 13:53 Sodium Chloride 1,000 ml @ 0 mls/hr Q0M PRN OTHER WITH DIALYSIS; Start at 13:53 Mannitol (Mannitol Inj) 12.5 gm UNSCH PRN IV WITH DIALYSIS; Start 08/13/17 at 14:00 Albumin Human 100 ml @ 60 mls/hr UNSCH PRN IV WITH DIALYSIS; Start 08/13/17 at 14:00 Sodium Chloride (NS Flush) 5 ml UNSCH PRN IV FLUSH WITH DIALYSIS; Start at 14:00 Ondansetron HCl (Zofran Inj) 4 mg UNSCH PRN IV PUSH WITH DIALYSIS; Start at 14:00 Acetaminophen (Tylenol) 650 mg UNSCH PRN PO for headach, pain, temp > 101F; Start 08/13/17 at 14:00 Diphenhydramine HCl (Benadryl) 25 mg UNSCH PRN PO for hives/itching/anaphylaxis ; Start 08/13/17 at 14:00 Nitroglycerin (Nitrostat Sl) 0.4 mg UNSCH PRN SL CHEST PAIN; Start 08/13/17 at 14:00 Clonidine (Catapres) 0.1 mg UNSCH PRN PO for BP > 180/100 X 2 readings; Start 08/13/17 at 14:00 Epoetin Eddie (Epogen Inj) 8,000 units UNSCH PRN IV PUSH WITH DIALYSIS Last administered on 08/13/17 15:15; Start 08/13/17 at 14:00 Gelatin (Gelfoam 12 Mm/7 Mm Top) 1 foam UNSCH PRN TOP SEE LABEL COMMENTS Last administered on 08/13/17 15:14; Start 08/13/17 at 14:00 Miscellaneous Information ALL NURSING DEPARTME... UNSCH PRN .XX SEE LABEL COMMENTS; Start 08/13/17 at 15:00; Stop 08/14/17 at 14:59; Status DC Octreotide Acetate (SandoSTATIN INJ) 250 mcg Q8HR IV PUSH Last administered on 08/13/17 23:37; Start 08/13/17 at 22:00; Stop 08/14/17 at 10:22; Status DC Octreotide Acetate (SandoSTATIN INJ) 250 mcg Q4H IV ; Start 08/14/17 at 13:00; Status Cancel Octreotide Acetate 500 mcg/ Sodium Chloride 500 ml @ 25 mls/hr Q20H IV Last administered on 08/14/17t 14:36; Start 08/14/17 at 14:00; Stop 08/19/17 at 13: 59 Urinary Catheter: No Vascular Central Line Catheter: No A/P Problem List: (1) Elevated lactic acid level ICD Code: E87.2 - Acidosis Status: Acute (2) HYPOTENSION OF HEMODIALYSIS ICD Code: I95.3 - HYPOTENSION OF HEMODIALYSIS Status: Acute (3) Fever ICD Code: R50.9 - Fever, unspecified Status: Acute (4) ESRD (end stage renal disease) on dialysis ICD Code: N18.6 - End stage renal disease; Z99.2 - Dependence on renal dialysis Status: Chronic (5) Lupus (systemic lupus erythematosus) ICD Code: M32.9 - Systemic lupus erythematosus, unspecified (6) Hypoglycemia ICD Code: E16.2 - Hypoglycemia, unspecified (7) Anemia ICD Code: D64.9 - Anemia, unspecified Status: Acute (8) Chronic anticoagulation ICD Code: Z79.01 - intermodal dispatcher (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 of anticoagulants (9) H/O hypercoagulable state ICD Code: Z86.2 - Personal history of diseases of the blood and blood-forming organs and certain disorders involving the immune mechanism (10) Elevated glucose ICD Code: R73.09 - Other abnormal glucose (11) Hypoalbuminemia ICD Code: E88.09 - Other disorders of plasma-protein metabolism, not elsewhere classified (12) Thrombocytopenia ICD Code: D69.6 - Thrombocytopenia, unspecified (13) Elevated AST (SGOT) ICD Code: R74.0 - Nonspecific elevation of levels of transaminase and lactic acid dehydrogenase [LDH] (14) Macrocytic anemia ICD Code: D53.9 - Nutritional anemia, unspecified (15) Severe sepsis ICD Code: A41.9 - Sepsis, unspecified organism; R65.20 - Severe sepsis without septic shock (16) History of DVT (deep vein thrombosis) ICD Code: Z86.718 - Personal history of other venous thrombosis and embolism (17) History of pulmonary embolism ICD Code: Z86.711 - Personal history of pulmonary embolism (18) Gastroesophageal reflux disease ICD Code: K21.9 - Gastro-esophageal reflux disease without esophagitis (19) Coronary artery disease ICD Code: I25.10 - Atherosclerotic heart disease of [place] coronary artery without angina pectoris (20) Lupus nephritis ICD Code: M32.14 - Glomerular disease in systemic lupus erythematosus Status: Chronic (21) PAD (peripheral artery disease) ICD Code: I73.9 - Peripheral vascular disease, unspecified Assessment and Plan 46yM with ESRD and likely tunneled perm-a-cath infection, severe sepsis, and active upper GI bleed s/p urgent endoscopy and esophageal banding. Clinically stable. will trend H&H. repeat lactate to ensure downtrending. will discuss with GI, but likely stable for transfer to floor. Neuro/Psych: Anxiety disorder NOS Acute toxic metabolic encephalopathy likely secondary to severe sepsis - resolving. Currently on alprazolam 1 mg every 8 hours when necessary anxiety Acetaminophen 650 mg every 6 hours when necessary fever Noted allergy to morphine sulfate CV: Severe sepsis - improving. Lactic acidosis Coronary artery disease status post stent PAD Echocardiogram 04/25 revealed EF 55-60%. Mild left ventricular hypertrophy. Trace TR. Serial lactates until clear Started on midodrine 10 mg 3 times a day and stress dose hydrocortisone 100 mg IV every 8 hours in light of Recent steroid use If central access needed will need IR for placement. Question transhepatic/ spinal in this instance Resp: Asthma? Chronic bibasilar opacification Nasal cannula to maintain saturations greater than or equal to 92% Incentive spirometry while awake Albuterol/ipratropium aerosols every 6 hours with albuterol aerosols every 2 hours. Dyspnea GI: Elevated AST Gastroesophageal reflux disease diet per GI- currently clear liquid. Currently on pantoprazole 40 iv twice a day. On 20 mg daily at home Docusate sodium/senna 1 tablet twice a day for bowel regimen Gastroenterology consult for heme-positive stools in ED Seen by GI specialist 07/14/17 RN reports that after getting Octreotide via IV push patient's heart rate decreased and he had single episode of hematemesis with dark brown fluid. Octreotide via IV push has been on hold since this incident. Started octreotide : No indication for Monroy catheter Endo: Recent hydrocortisone use Started on stress dose hydrocortisone 100 mill grams IV every 8 hours. Recent taper 20 mg twice a day with tapering dosage. Not clear where currently in cycle. Fludrocortisone Acetate 0.1 Mg Tab 0.1 Mg PO WITH DIALYSIS currently being held in light of hydrocortisone use above Renal: End-stage renal disease on chronic intermittent hemodialysis Tuesday/Tuesday and Tuesday secondary to lupus nephritis Hyperphosphatemia Consults nephrology - Dr. Merlos for hemodialysis Continue sevelamer 1600 mg 3 times a day for hyperphosphatemia Heme: Macrocytic anemia Anemia of chronic kidney disease and acute blood loss Thrombocytopenia Hypercoagulable state On chronic warfarin therapy. Last evaluation in [address] Oreilly. At that time workup negative except for low protein S. Did not recommend repeating. Recommended lifelong anticoagulation due to history of PE/ DVT/SVC thrombus etc. Daily CBC/coags. Transfuse as clinically indicated to maintain hemoglobin greater than 7 trend h&h ID: Severe sepsis Recent staph epi/coag negative staph bacteremia history of enterococcus right upper extremity wound Will continue vancomycin/piperacillin/tazobactam for now. Blood cultures 2 pending Infectious disease consult for antibiotic antibiotic management tunneled vas cath removed 08/12. 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 PT evaluate and treat FEN: Hyperphosphatemia See renal. Continue sevelamer 1600 mg 3 times a day recheck phosphorus no Access - femoral sheath placed emergently for blood transfusion, however minimal iv access, recommend removing once hgb stable. Prophylaxis - GI - pantoprazole - DVT - SCD/on warfarin chronically. Holding in light of active GI bleed. Transfer to med /surg floor when ok with GI specialist TRANSFER OUT Discharge Planning HOLD COUMADIN- WILL NEED ANTICOAGULATION PRIOR TO DC TRANSFER TO FLOOR Problem Qualifiers (1) Fever: Qualified Codes: R50.9 - Fever, unspecified (2) Lupus (systemic lupus erythematosus): Qualified Codes: M32.15 - Tubulo-interstitial nephropathy in systemic lupus erythematosus (3) Anemia: Qualified Codes: N18.6 - End stage renal disease; D63.1 - Anemia in chronic kidney disease; Z99.2 - Dependence on renal dialysis (4) Gastroesophageal reflux disease: Qualified Codes: K21.9 - Gastro-esophageal reflux disease without esophagitis (5) Coronary artery disease: Qualified Codes: I25.10 - Atherosclerotic heart disease of [place] coronary artery without angina pectoris Cesar Rendon DO Aug 15, 2017 09:18
--- NOTE | 2017-08-15 09:29 | HHI.GIFU ---
Subjective Remarks Resting in bed. No active bleeding. Denies nausea/vomiting or further GI bleeding. (Amy Lombardo) Objective Vitals I&O Vital Signs Date Time Temp Pulse Resp B/P (MAP) Pulse Ox O2 Delivery O2 Flow Rate FiO2 08/15/17 08:59 99 Nasal Cannula 2.00 08/15/17 06:00 49 08/15/17 04:00 98.2 50 11 129/61 (83) 95 08/15/17 04:00 50 08/15/17 02:00 72 08/15/17 00:00 98.0 51 13 130/61 (84) 94 08/15/17 00:00 51 08/14/17 22:00 52 08/14/17 22:00 98 Nasal Cannula 3.00 08/14/17 20:00 97.8 49 12 131/60 (83) 94 08/14/17 20:00 49 08/14/17 18:00 66 08/14/17 16:00 52 08/14/17 16:00 98.0 52 12 170/71 (104) 98 08/14/17 14:00 59 08/14/17 12:00 97.7 58 19 146/85 (105) 97 08/14/17 12:00 58 08/14/17 10:00 55 I/O 08/14/17 08/14/17 08/14/17 08/15/17 08/15/17 08/15/17 07:00 15:00 23:00 07:00 15:00 23:00 Intake Total 210 ml 450 ml 150 ml Output Total 50 ml Balance 160 ml 450 ml 150 ml Intake Oral 60 ml 400 ml 0 ml IV Total 150 ml 50 ml 150 ml Output Emesis 50 ml # Voids 0 0 1 # Bowel Movements 0 0 0 Laboratory Laboratory Tests Test 08/15/17 04:30 Blood Urea Nitrogen 62 Creatinine 9.72 Random Glucose 131 Albumin 2.8 Calcium Level 7.4 Phosphorus Level 7.7 Sodium Level 134 Potassium Level 4.7 Chloride Level 97 Carbon Dioxide Level 24.4 Anion Gap 13 Estimat Glomerular Filtration Rate 7 Date/Time Source Procedure Growth Status 08/12/17 09:40 Blood Peripheral Aerobic Blood Culture - Preliminary NO GROWTH IN 2 DAYS Resulted 08/12/17 09:40 Blood Peripheral Anaerobic Blood Culture - Preliminary NO GROWTH IN 2 DAYS Resulted 08/12/17 14:43 Catheter Tip Wound Culture - Preliminary Resulted Imaging Last Impressions Chest X-Ray 08/12/17 0910 Signed Impressions: Service Date/Time: Saturday, August 12, 2017 09:25 - CONCLUSION: 1. Stable scattered patchiness bilaterally. Chon Nye MD Central Venous Line 08/12/17 0000 Signed Impressions: Service Date/Time: Saturday, August 12, 2017 00:00 - CONCLUSION: Uncomplicated Permcath removal. Shmuel Beckett MD Physical Exam HEENT: Normocephalic; atraumatic; no jaundice. NECK: Neck is supple. CHEST: CTA CARDIAC: SB ABDOMEN: Soft, nondistended, nontender; bowel sounds are present in all four quadrants. EXTREMITIES: Bilateral BKA SKIN: Normal; no rash; no jaundice. TELECOMMUNICATION LINES REPAIRER: No focal deficits; alert and oriented times three. (Amy Lombardo) Assessment and Plan Plan ASSESSMENT - Upper GIB. Had guaiac positive stools, anemia on admission (HH 8.8/27.2). S/ P EGD (08/13/17)----> 1. Bleeding Esophageal varices, with active bleeding identified, 6 bands applied to control the bleeding 2.There was gastritis in the entire examined stomach 3. Multiple large erosions were found in the duodenal bulb and 2nd part duodenum. Protonix/ Octreotide Gtt. Octreotide. Protonix 40mg IV BID. - Anemia, acute blood loss. S/P 1 unit PRBC. 8.6/25.9. - Thrombocytopenia. Plt. 104,000. - Esophageal Varices. S/P band ligation. No active bleeding. PPI, Octreotide. - Duodenal bulb ulcers, gastritis. PPI. - Elevated LFTs, Liver cirrhosis- pt has varices, thrombocytopenia, hypoalbuminemia. Liver workup. No ETOH use- did drink ETOH 30 years ago. (+) Lupus. - ESRD, HD M-W-. - Sepsis. BCx no growth 2 days. Wound cx (Cath tip) > 15 CFU yeast species, > 15 Corynebacterium. Abx per attending. - Lupus, CAD, PAD, per attending. - Hx hypercoagulable state with hx DVT/PE, on chronic anticoagulation. PLAN: - 2 gram Sodium renal diet - Cont. Octreotide Gtt x 72 hours - Cont. Protonix 40mg IV BID - JENA, AMA, ASMA - Ferritin, Iron saturation - Ceruloplasmin, Alpha 1 Antitrypsin - AFP level - Hepatitis panel. - Monitor HH - Repeat EGD in 4 weeks - Supportive care - Further recommendations to follow based on results of above. - Patient seen and examined by Dr. Rodriguez and myself and this note is written on his behalf. (Amy Lombardo) Physician Comments Seen and examined with Amy. Plan as above. Work up for CLD and repeat EGD in 2-6 weeks. (Chon Rodriguez MD) Amy Lombardo Aug 15, 2017 09:29 Chon Rodriguez MD Aug 15, 2017 09:39
[2017-08-15] MEDS: OCTREOTIDE INJ 500 MCG in SODIUM CHLORID 0.9% 500 ML INJ 499.5 ML IV SCH (09:44)
--- NOTE | 2017-08-15 11:54 | HHI.NPPN ---
Subjective History of Present Illness This patient is a 46-year-old male with a history of end-stage renal disease, SLE, hypertension, peripheral vascular disease as well as secondary hyperparathyroidism of renal disease. Unfortunately the patient has had multiple dialysis accesses including dialysis shunts and dialysis catheters in the past complicated by access failure as well as infection. Patient now has very limited options for dialysis access. We were relying on a left femoral dialysis line for access. Fortunately vessel surgery was able to create a left arm AV dialysis fistula back in February. We have used the access for dialysis 3 and the patient was scheduled to have his PermCath removed this Tuesday however presented to the dialysis facility with lethargy and pyrexia. Sepsis imost likely recurrence of line infection most likely consideration. Since admission however noted to have GI bleed and upper endoscopy revealed severe gastritis, and duodenum and mention of large bleeding esophageal varices Interval History Patient seen during dialysis today. No verbal complaints. Objective Data Data Vital Signs Date Time Temp Pulse Resp B/P (MAP) Pulse Ox O2 Delivery O2 Flow Rate FiO2 08/15/17 08:59 99 Nasal Cannula 2.00 08/15/17 06:00 49 08/15/17 04:00 98.2 50 11 129/61 (83) 95 08/15/17 04:00 50 08/15/17 02:00 72 08/15/17 00:00 98.0 51 13 130/61 (84) 94 08/15/17 00:00 51 08/14/17 22:00 52 08/14/17 22:00 98 Nasal Cannula 3.00 08/14/17 20:00 97.8 49 12 131/60 (83) 94 08/14/17 20:00 49 08/14/17 18:00 66 08/14/17 16:00 52 08/14/17 16:00 98.0 52 12 170/71 (104) 98 08/14/17 14:00 59 08/14/17 12:00 97.7 58 19 146/85 (105) 97 08/14/17 12:00 58 -: 08/14/17 0400 08/15/17 0430 Medication Review Current Medications Dextrose (D50w (Vial) Inj) 50 ml STK-MED ONCE .ROUTE ; Start 08/12/17 at 09:09; Stop 08/12/17 at 09:10; Status DC Acetaminophen (Tylenol) 650 mg ONCE ONCE PO ; Start 08/12/17 at 09:15; Stop at 09:16; Status DC Vancomycin HCl 1000 mg/Sodium Chloride 250 ml @ 250 mls/hr ONCE STAT IV Last administered on 08/12/17 10:32; Start 08/12/17 at 09:10; Stop 08/12/17 at 10:09 ; Status DC Piperacillin Sod/ Tazobactam Sod 50 ml @ 100 mls/hr ONCE ONCE IV Last administered on 08/12/17 09:48; Start 08/12/17 at 09:15; Stop 08/12/17 at 09:44 ; Status DC Dextrose (D50w (Vial) Inj) 50 ml NOW ONCE IV PUSH Last administered on 10:56; Start 08/12/17 at 10:45; Stop 08/12/17 at 10:46; Status DC Acetaminophen (Tylenol Supp) 650 mg NOW ONCE RECTAL Last administered on 10:56; Start 08/12/17 at 10:45; Stop 08/12/17 at 10:46; Status DC Sodium Chloride 250 ml @ 15 mls/hr ONCE ONCE IV Last administered on 15:23; Start 08/12/17 at 11:30; Stop 08/13/17 at 04:09; Status DC Sodium Chloride 1,000 ml @ 84 mls/hr [id number] IV Last administered on 12:10; Start 08/12/17 at 11:45; Stop 08/12/17 at 12:20; Status DC Sodium Chloride (NS Flush) 2 ml UNSCH PRN IV FLUSH FLUSH AFTER USING IV ACCESS ; Start 08/12/17 at 11:45 Sodium Chloride (NS Flush) 2 ml BID IV FLUSH Last administered on 08/15/17 09: 12; Start 08/12/17 at 21:00 Acetaminophen (Tylenol) 650 mg Q6H PRN PO PAIN 1-5 AND/OR FEVER >101F Last administered on 08/12/17 23:53; Start 08/12/17 at 11:45 Acetaminophen/ Hydrocodone Bitart (Blanchard 5-325 Mg) 1 tab Q4H PRN PO PAIN SCALE 1 TO 5; Start 08/12/17 at 11:45; Stop 08/12/17 at 11:51; Status DC Morphine Sulfate (Morphine Inj) 2 mg Q2H PRN IV PUSH PAIN SCALE 6 TO 10; Start 08/12/17 at 11:45; Stop 08/12/17 at 11:51; Status DC Pantoprazole Sodium (Protonix Inj) 40 mg DAILY IV PUSH ; Start 08/13/17 at 09:00 ; Stop 08/13/17 at 09:00; Status DC Ondansetron HCl (Zofran Inj) 4 mg Q6H PRN IV PUSH NAUSEA OR VOMITING; Start at 11:45 Albuterol/ Ipratropium (Duoneb Neb) 1 ampule Q6HR NEB INH Last administered on 08/15/17 08:58; Start 08/12/17 at 16:00 Albuterol Sulfate (Albuterol Neb) 2.5 mg Q2HR NEB PRN INH SOB/WHEEZING; Start 08/12/17 at 11:45 Miscellaneous Information 1 Q361D XX ; Start 08/12/17 at 11:45 Senna/Docusate Sodium (Angelika-Colace) 1 tab BID PO Last administered on 09:11; Start 08/12/17 at 21:00 Magnesium Hydroxide (Milk Of Magnesia Liq) 30 ml Q12H PRN PO Mild constipation ; Start 08/12/17 at 11:45 Sennosides (Senokot) 17.2 mg Q12H PRN PO Moderate constipation; Start 08/12/17 at 11:45 Bisacodyl (Dulcolax Supp) 10 mg DAILY PRN RECTAL SEVERE CONSITIPATION; Start 08/12/17 at 11:45 Lactulose (Lactulose Liq) 30 ml DAILY PRN PO SEVERE CONSITIPATION; Start at 11:45 Midodrine (Proamatine) 10 mg TID@,12,17 PO Last administered on 08/14/17 17: 49; Start 08/12/17 at 12:00 Hydrocortisone Sodium Succinate (SoluCORTEF INJ) 100 mg Q8HR IV PUSH Last administered on 08/15/17 05:55; Start 08/12/17 at 14:00 Alprazolam (Xanax) 1 mg Q8H PRN PO ANXIETY Last administered on 08/12/17 23:53 ; Start 08/12/17 at 12:00 Fluconazole (Diflucan) 400 mg DAILY PO ; Start 08/13/17 at 09:00; Stop 08/13/17 at 09:00; Status DC Sevelamer Carbonate (Renvela) 1,600 mg TID PO ; Start 08/12/17 at 13:00; Status Future Hold Warfarin Sodium (Coumadin) 4 mg DAILY PO ; Start 08/13/17 at 09:00; Stop at 09:00; Status DC Warfarin Sodium (Coumadin) 3 mg DAILY@1600 PO ; Start 08/12/17 at 16:00; Stop 08/12/17 at 16:00; Status DC Phenylephrine HCl 160 mg/Dextrose 500 ml @ 7.5 mls/hr TITRATE PRN IV Blood pressure management Last administered on 08/12/17 13:26; Start 08/12/17 at 12: 00 Terbutaline Sulfate (Brethine Inj) 1 mg UNSCH PRN SQ For Extravasation Last administered on 08/13/17 03:13; Start 08/12/17 at 12:00 Piperacillin Sod/ Tazobactam Sod 50 ml @ 100 mls/hr Q8H IV Last administered on 08/15/17 02:00; Start 08/12/17 at 18:00 Pharmacy Profile Note 0 ml @ 0 mls/hr UNSCH OTHER ; Start 08/12/17 at 12:00; Stop 08/12/17 at 17:08; Status DC Dextrose/Sodium Chloride 1,000 ml @ 30 mls/hr Q24H IV Last administered on 12:57; Start 08/12/17 at 12:30 Dextrose (D50w (Vial) Inj) 50 ml UNSCH PRN IV PUSH HYPOGLYCEMIA-SEE COMMENTS; Start 08/12/17 at 12:30 Glucagon (Glucagon Inj) 1 mg UNSCH PRN OTHER HYPOGLYCEMIA-SEE COMMENTS; Start 08/12/17 at 12:30 Insulin Human Regular (NovoLIN R SUPPLEMENTAL SCALE) 1 ACHS SLIDING SCALE SQ Last administered on 08/14/17 12:56; Start 08/12/17 at 17:00 Pantoprazole Sodium (Protonix Inj) 40 mg BID IV PUSH Last administered on 09:11; Start 08/12/17 at 21:00 Albumin Human 50 ml @ 60 mls/hr ONCE ONCE IV Last administered on 08/12/17 16 :44; Start 08/12/17 at 14:00; Stop 08/12/17 at 14:49; Status DC Epoetin Eddie (Epogen Inj) 10,000 units ONCE ONCE SQ Last administered on 15:34; Start 08/12/17 at 14:00; Stop 08/12/17 at 14:01; Status DC Lidocaine/ Epinephrine (Xylocaine-Epi 1%-1:100,000 Inj) 20 ml STK-MED ONCE .ROUTE Last administered on 08/12/17 14:40; Start 08/12/17 at 13:37; Stop 08/12/17 at 13:38; Status DC Sodium Phosphate 15 mmol/Sodium Chloride 155 ml @ 38.75 mls/ hr ONCE ONCE IV Last administered on 08/12/17 18:51; Start 08/12/17 at 16:00; Stop 08/12/17 at 19:59; Status DC Vancomycin HCl 1000 mg/Sodium Chloride 250 ml @ 250 mls/hr WITH DIALYSIS IV ; Start 08/15/17 at 14:00 Fluconazole/ Sodium Chloride 100 ml @ 100 mls/hr Q24H IV Last administered on 08/14/17 21:57; Start 08/12/17 at 20:00 Hydromorphone HCl (Dilaudid Pf Inj) 0.5 mg Q4H PRN IV PAIN >5/10 Last administered on 08/13/17 03:10; Start 08/13/17 at 00:30; Stop 08/13/17 at 03:23 ; Status DC Hydromorphone HCl (Dilaudid Pf Inj) 0.5 mg Q2H PRN IV PAIN >5/10 Last administered on 08/13/17 04:52; Start 08/13/17 at 03:30 Fentanyl Citrate (fentaNYL INJ) 100 mcg UNSCH X1 PRN IV PUSH SEE DOSE INSTRUCTIONS; Start 08/13/17 at 03:30; Stop 08/14/17 at 03:29; Status DC Octreotide Acetate (SandoSTATIN INJ) 250 mcg Q8HR IV PUSH ; Start 08/13/17 at 14 :00; Stop 08/13/17 at 19:59; Status DC Sodium Chloride 1,000 ml @ 0 mls/hr Q0M PRN OTHER For Prime & Rinse Back; Start 08/13/17 at 13:53 Sodium Chloride 1,000 ml @ 200 mls/hr Q5H PRN IV WITH DIALYSIS; Start 08/13/17 at 13:53 Sodium Chloride 1,000 ml @ 0 mls/hr Q0M PRN OTHER WITH DIALYSIS; Start at 13:53 Mannitol (Mannitol Inj) 12.5 gm UNSCH PRN IV WITH DIALYSIS; Start 08/13/17 at 14:00 Albumin Human 100 ml @ 60 mls/hr UNSCH PRN IV WITH DIALYSIS; Start 08/13/17 at 14:00 Sodium Chloride (NS Flush) 5 ml UNSCH PRN IV FLUSH WITH DIALYSIS; Start at 14:00 Ondansetron HCl (Zofran Inj) 4 mg UNSCH PRN IV PUSH WITH DIALYSIS; Start at 14:00 Acetaminophen (Tylenol) 650 mg UNSCH PRN PO for headach, pain, temp > 101F; Start 08/13/17 at 14:00 Diphenhydramine HCl (Benadryl) 25 mg UNSCH PRN PO for hives/itching/anaphylaxis ; Start 08/13/17 at 14:00 Nitroglycerin (Nitrostat Sl) 0.4 mg UNSCH PRN SL CHEST PAIN; Start 08/13/17 at 14:00 Clonidine (Catapres) 0.1 mg UNSCH PRN PO for BP > 180/100 X 2 readings; Start 08/13/17 at 14:00 Epoetin Eddie (Epogen Inj) 8,000 units UNSCH PRN IV PUSH WITH DIALYSIS Last administered on 08/13/17 15:15; Start 08/13/17 at 14:00 Gelatin (Gelfoam 12 Mm/7 Mm Top) 1 foam UNSCH PRN TOP SEE LABEL COMMENTS Last administered on 08/13/17 15:14; Start 08/13/17 at 14:00 Miscellaneous Information ALL NURSING DEPARTME... UNSCH PRN .XX SEE LABEL COMMENTS; Start 08/13/17 at 15:00; Stop 08/14/17 at 14:59; Status DC Octreotide Acetate (SandoSTATIN INJ) 250 mcg Q8HR IV PUSH Last administered on 08/13/17 23:37; Start 08/13/17 at 22:00; Stop 08/14/17 at 10:22; Status DC Octreotide Acetate (SandoSTATIN INJ) 250 mcg Q4H IV ; Start 08/14/17 at 13:00; Status Cancel Octreotide Acetate 500 mcg/ Sodium Chloride 500 ml @ 25 mls/hr Q20H IV Last administered on 08/15/17 09:44; Start 08/14/17 at 14:00; Stop 08/19/17 at 13: 59 Physical Exam General Appearance: Well Developed, Well Nourished, No Acute Distress, Comfortable Eyes Eye Exam: Sclera White Pulmonary Resp Exam: Clear Bilaterally, Breath Sounds Equal, No Distress Cardiology CV Exam: Regular, Normal Sinus Rhythm Gastrointestinal/Abdomen GI Exam: Soft, Non-Tender Integumentary Skin Exam: Clear, Warm Extremeties Extremities Exam: Trace Edema Neurologic Neuro Exam: Alert, Awake, Speech Clear, Moving All Extremities, Sedated Psychiatric Psych Exam: Appropriate Responses Assessment/Plan Discussed Condition With: Patient Problem List: (1) End-stage renal disease on hemodialysis ICD Codes: N18.6 - End stage renal disease; Z99.2 - Dependence on renal dialysis Status: Chronic Plan: Patient seen during dialysis today. AV fistula appears to be working well. Avoid gadolinium. Medication should be adjusted for his end-stage renal disease when indicated. Because of urgency of transport patient's dialysis needles is still present in his fistula. I contacted Jeff the dialysis nurse who indicated that one of the dialysis nurses will come down today to remove the needles. (2) Complications, dialysis, catheter, mechanical ICD Codes: T82.49XA - Other complication of vascular dialysis catheter, initial encounter Status: Acute Plan: I Hemodialysis PermCath removed. AV dialysis fistula appears to be working well. Blood cultures negative 48 hours but will continue to monitor. Antibiotics as per infectious disease. It is possible his presentation was primarily related to GI bleed. (3) Anemia of renal disease ICD Codes: D63.1 - Anemia in chronic kidney disease Status: Chronic Plan: Continue Epogen for anemia renal disease. GI bleeding contributory to worsening anemia. (4) Esophageal varices determined by endoscopy ICD Codes: I85.00 - Esophageal varices without bleeding Plan: As far as I'm aware the patient has no known history of cirrhosis. Previous hepatitis profile negative. 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 Clarence Merlos MD Aug 15, 2017 11:54
[2017-08-15] MEDS: VANCOMYCIN INJ 1,000 MG in SODIUM CHLOR 0.9% 250 ML INJ 250 ML IV SCH (12:00)
[2017-08-15] MEDS: GELATIN 12 MM/7 MM FOAM TOP PRN (12:26)
[2017-08-15] MEDS: EPOETIN ALFA 10,000 UNITS/ML VIAL IV PUSH PRN (12:26)
[2017-08-15] MEDS: SODIUM CHLOR 0.9% 1000 ML INJ 1,000 ML OTHER PRN (12:27)
[2017-08-15 13:57] LABS: TRANSFERRIN IRON PROFILE 178 MG/DL (200-360)
[2017-08-15 14:00] LABS: FERRITIN 1888 NG/ML (26-388)
[2017-08-15] MEDS: CALCIUM ACETATE 667 MG CAP PO SCH ×2 (14:40→17:46)
[2017-08-15] MEDS: FLUCONAZOLE 200 MG PREMIX BAG 100 ML IV SCH (21:51)
[2017-08-15] MEDS: DEXT 5%-NACL 0.45% 1000 ML INJ 1,000 ML IV SCH (21:54)
[2017-08-16] VITALS (10 sets, daily range): BP systolic 93–123; BP diastolic 56–61; PULSE 42–80; RESP 17–20; TEMP 97.2–98.2; O2SAT 92–96
[2017-08-16] MEDS: DEXT 5%-NACL 0.45% 1000 ML INJ 1,000 ML IV SCH (00:27)
[2017-08-16] MEDS: PIPERACIL-TAZO 2.25 GM PREMIX 50 ML IV SCH ×2 (00:27→10:11)
[2017-08-16] MEDS: RESP: ALBUTEROL 2.5 MG/IPRATROPIUM 0.5 MG NEB (SCH) INH ×4 (04:33→21:45)
[2017-08-16] MEDS: MIDODRINE 5 MG TAB PO SCH ×3 (06:16→17:02)
[2017-08-16] MEDS: HYDROCORTISONE SOD SUCCINATE 100 MG VIAL IV PUSH SCH (06:17)
[2017-08-16] MEDS: OCTREOTIDE INJ 500 MCG in SODIUM CHLORID 0.9% 500 ML INJ 499.5 ML IV SCH (06:17)
[2017-08-16] MEDS: SODIUM CHLORIDE 0.9% FLUSH 10 ML FLUSH IV FLUSH SCH ×2 (07:29→21:01)
[2017-08-16] MEDS: INSULIN NovoLIN REGULAR SUPPLEMENTAL SCALE SQ SCH ×4 (08:00→21:00)
[2017-08-16] MEDS: PANTOPRAZOLE SODIUM 40 MG VIAL IV PUSH SCH ×2 (08:33→21:02)
[2017-08-16] MEDS: DOCUSATE SODIUM 50 MG/SENNA 8.6 MG TAB PO SCH ×2 (08:33→21:01)
[2017-08-16] MEDS: CALCIUM ACETATE 667 MG CAP PO SCH ×3 (08:33→17:01)
--- NOTE | 2017-08-16 10:10 | HHI.PR ---
Subjective Remarks in no distress. no fever. denies pain. no new complaints. Objective Vitals Vital Signs Date Time Temp Pulse Resp B/P (MAP) Pulse Ox O2 Delivery O2 Flow Rate FiO2 08/16/17 08:40 95 Nasal Cannula 2.50 08/16/17 08:06 97.6 52 17 118/58 (78) 95 08/16/17 04:33 93 Nasal Cannula 2.50 08/16/17 04:00 Nasal Cannula 4.00 08/16/17 04:00 98.0 80 20 93/61 (72) 93 08/16/17 00:00 97.9 66 18 100/56 (71) 92 08/16/17 00:00 Nasal Cannula 4.00 08/15/17 20:39 55 08/15/17 20:00 Nasal Cannula 4.00 08/15/17 20:00 97.5 53 18 90/52 (65) 92 08/15/17 18:00 70 08/15/17 16:00 70 08/15/17 16:00 98.0 70 12 89/48 (62) 95 08/15/17 14:00 68 08/15/17 12:00 97.8 72 11 106/55 (72) 98 08/15/17 12:00 72 I/O 08/15/17 08/15/17 08/15/17 08/16/17 08/16/17 08/16/17 07:00 15:00 23:00 07:00 15:00 23:00 Intake Total 150 ml 260 ml 1874 ml Output Total 3500 ml 0 ml Balance 150 ml -3500 ml 260 ml 1874 ml Intake Oral 0 ml 260 ml 360 ml IV Total 150 ml 1514 ml Output Urine Total 0 ml Hemodialysis 3500 ml # Voids 1 0 # Bowel Movements 0 0 0 Result Diagram: 08/14/17 0400 08/15/17 0430 Imaging Last Impressions Chest X-Ray 08/12/17 0910 Signed Impressions: Service Date/Time: Saturday, August 12, 2017 09:25 - CONCLUSION: 1. Stable scattered patchiness bilaterally. Chon Nye MD Central Venous Line 08/12/17 0000 Signed Impressions: Service Date/Time: Saturday, August 12, 2017 00:00 - CONCLUSION: Uncomplicated Permcath removal. Shmuel Beckett MD Objective Remarks GENERAL: This is a well-nourished, well-developed patient, in no apparent distress. CARDIOVASCULAR: Regular rate and regular rhythm without murmurs, gallops, or rubs. RESPIRATORY: Clear to auscultation. Breath sounds equal bilaterally. No wheezes , rales, or rhonchi. GASTROINTESTINAL: Abdomen soft, non-tender, nondistended. Normal, active bowel sounds MUSCULOSKELETAL: s/o bilateral BKA NEURO: Alert & Oriented x4 to person, place, time, situation. Moves all ext x4 Procedures EGD PROCEDURE REPORT EXAM DATE: 08/13/2017 INDICATIONS: The patient is a 46 yr old male here for an EGD due to melena PROCEDURE PERFORMED: EGD w/ band ligation of varices MEDICATIONS: None and Per Anesthesia. TOPICAL ANESTHETIC: none CONSENT: The patient understands the risks and benefits of the procedure and understands that these risks include, but are not limited to: sedation, allergic reaction, infection, perforation and/or bleeding. Alternative means of evaluation and treatment include, among others: physical exam, x-rays, and/or surgical intervention. The patient elects to proceed with this endoscopic procedure. medical equipment was checked for proper function. Hand hygiene and appropriate measures for infection prevention was taken. After the risks, benefits and alternatives of the procedure were thoroughly explained, Informed consent was verified, confirmed and timeout was successfully executed by the treatment team. The patient was anesthetized with topical anesthesia and the Pentax [id number] endoscope was introduced through the mouth and advanced to the second portion of the duodenum. Retroflexion was performed and was normal The gastroscope was then slowly withdrawn and removed. ESOPHAGUS: There were large varices in the middle third of the esophagus and lower third esophagus. The varices were bleeding intermittently with spurting spot , 6 bands applied and bleeding controlled. STOMACH: There was severe and erosive gastritis in the entire examined stomach. DUODENUM: Multiple large shallow erosions were found in the duodenal bulb and 2nd part duodenum. ADVERSE EVENTS: There were no complications. IMPRESSIONS: 1. Bleeding Esophageal varices, with active bleeding identified, 6 bands applied to controll the bleeding 2. There was gastritis in the entire examined stomach 3. Multiple large erosions were found in the duodenal bulb and 2nd part duodenum RECOMMENDATIONS: Continue PPI , start Octreotide, PATIENT CONDITION: stable DISPOSITION: Observation REPEAT EXAM: Return 4 weeks EGD Chon Rodriguez MD 08/13/2017 1:38 PM Medications and IVs Current Medications Dextrose (D50w (Vial) Inj) 50 ml STK-MED ONCE .ROUTE ; Start 08/12/17 at 09:09; Stop 08/12/17 at 09:10; Status DC Acetaminophen (Tylenol) 650 mg ONCE ONCE PO ; Start 08/12/17 at 09:15; Stop at 09:16; Status DC Vancomycin HCl 1000 mg/Sodium Chloride 250 ml @ 250 mls/hr ONCE STAT IV Last administered on 08/12/17 10:32; Start 08/12/17 at 09:10; Stop 08/12/17 at 10:09 ; Status DC Piperacillin Sod/ Tazobactam Sod 50 ml @ 100 mls/hr ONCE ONCE IV Last administered on 08/12/17 09:48; Start 08/12/17 at 09:15; Stop 08/12/17 at 09:44 ; Status DC Dextrose (D50w (Vial) Inj) 50 ml NOW ONCE IV PUSH Last administered on 10:56; Start 08/12/17 at 10:45; Stop 08/12/17 at 10:46; Status DC Acetaminophen (Tylenol Supp) 650 mg NOW ONCE RECTAL Last administered on 10:56; Start 08/12/17 at 10:45; Stop 08/12/17 at 10:46; Status DC Sodium Chloride 250 ml @ 15 mls/hr ONCE ONCE IV Last administered on 15:23; Start 08/12/17 at 11:30; Stop 08/13/17 at 04:09; Status DC Sodium Chloride 1,000 ml @ 84 mls/hr [id number] IV Last administered on 12:10; Start 08/12/17 at 11:45; Stop 08/12/17 at 12:20; Status DC Sodium Chloride (NS Flush) 2 ml UNSCH PRN IV FLUSH FLUSH AFTER USING IV ACCESS ; Start 08/12/17 at 11:45 Sodium Chloride (NS Flush) 2 ml BID IV FLUSH Last administered on 08/16/17 07: 29; Start 08/12/17 at 21:00 Acetaminophen (Tylenol) 650 mg Q6H PRN PO PAIN 1-5 AND/OR FEVER >101F Last administered on 08/12/17 23:53; Start 08/12/17 at 11:45 Acetaminophen/ Hydrocodone Bitart ([place] 5-325 Mg) 1 tab Q4H PRN PO PAIN SCALE 1 TO 5; Start 08/12/17 at 11:45; Stop 08/12/17 at 11:51; Status DC Morphine Sulfate (Morphine Inj) 2 mg Q2H PRN IV PUSH PAIN SCALE 6 TO 10; Start 08/12/17 at 11:45; Stop 08/12/17 at 11:51; Status DC Pantoprazole Sodium (Protonix Inj) 40 mg DAILY IV PUSH ; Start 08/13/17 at 09:00 ; Stop 08/13/17 at 09:00; Status DC Ondansetron HCl (Zofran Inj) 4 mg Q6H PRN IV PUSH NAUSEA OR VOMITING Last administered on 08/15/17 13:52; Start 08/12/17 at 11:45 Albuterol/ Ipratropium (Duoneb Neb) 1 ampule Q6HR NEB INH Last administered on 08/16/17 08:40; Start 08/12/17 at 16:00 Albuterol Sulfate (Albuterol Neb) 2.5 mg Q2HR NEB PRN INH SOB/WHEEZING; Start 08/12/17 at 11:45 Miscellaneous Information 1 Q361D XX ; Start 08/12/17 at 11:45 Senna/Docusate Sodium (Angelika-Colace) 1 tab BID PO Last administered on 08:33; Start 08/12/17 at 21:00 Magnesium Hydroxide (Milk Of Magnesia Liq) 30 ml Q12H PRN PO Mild constipation ; Start 08/12/17 at 11:45 Sennosides (Senokot) 17.2 mg Q12H PRN PO Moderate constipation; Start 08/12/17 at 11:45 Bisacodyl (Dulcolax Supp) 10 mg DAILY PRN RECTAL SEVERE CONSITIPATION; Start 08/12/17 at 11:45 Lactulose (Lactulose Liq) 30 ml DAILY PRN PO SEVERE CONSITIPATION; Start at 11:45 Midodrine (Proamatine) 10 mg TID@07,12,17 PO Last administered on 08/16/17 06: 16; Start 08/12/17 at 12:00 Hydrocortisone Sodium Succinate (SoluCORTEF INJ) 100 mg Q8HR IV PUSH Last administered on 08/16/17 06:17; Start 08/12/17 at 14:00 Alprazolam (Xanax) 1 mg Q8H PRN PO ANXIETY Last administered on 08/12/17 23:53 ; Start 08/12/17 at 12:00 Fluconazole (Diflucan) 400 mg DAILY PO ; Start 08/13/17 at 09:00; Stop 08/13/17 at 09:00; Status DC Sevelamer Carbonate (Renvela) 1,600 mg TID PO ; Start 08/12/17 at 13:00; Stop 08/15/17 at 11:59; Status DC Warfarin Sodium (Coumadin) 4 mg DAILY PO ; Start 08/13/17 at 09:00; Stop at 09:00; Status DC Warfarin Sodium (Coumadin) 3 mg DAILY@1600 PO ; Start 08/12/17 at 16:00; Stop 08/12/17 at 16:00; Status DC Phenylephrine HCl 160 mg/Dextrose 500 ml @ 7.5 mls/hr TITRATE PRN IV Blood pressure management Last administered on 08/12/17 13:26; Start 08/12/17 at 12: 00 Terbutaline Sulfate (Brethine Inj) 1 mg UNSCH PRN SQ For Extravasation Last administered on 08/13/17 03:13; Start 08/12/17 at 12:00 Piperacillin Sod/ Tazobactam Sod 50 ml @ 100 mls/hr Q8H IV Last administered on 08/16/17 00:27; Start 08/12/17 at 18:00 Pharmacy Profile Note 0 ml @ 0 mls/hr UNSCH OTHER ; Start 08/12/17 at 12:00; Stop 08/12/17 at 17:08; Status DC Dextrose/Sodium Chloride 1,000 ml @ 30 mls/hr Q24H IV Last administered on 00:27; Start 08/12/17 at 12:30 Dextrose (D50w (Vial) Inj) 50 ml UNSCH PRN IV PUSH HYPOGLYCEMIA-SEE COMMENTS; Start 08/12/17 at 12:30 Glucagon (Glucagon Inj) 1 mg UNSCH PRN OTHER HYPOGLYCEMIA-SEE COMMENTS; Start 08/12/17 at 12:30 Insulin Human Regular (NovoLIN R SUPPLEMENTAL SCALE) 1 ACHS SLIDING SCALE SQ Last administered on 08/14/17 12:56; Start 08/12/17 at 17:00 Pantoprazole Sodium (Protonix Inj) 40 mg BID IV PUSH Last administered on 08:33; Start 08/12/17 at 21:00 Albumin Human 50 ml @ 60 mls/hr ONCE ONCE IV Last administered on 08/12/17 16 :44; Start 08/12/17 at 14:00; Stop 08/12/17 at 14:49; Status DC Epoetin Eddie (Epogen Inj) 10,000 units ONCE ONCE SQ Last administered on 15:34; Start 08/12/17 at 14:00; Stop 08/12/17 at 14:01; Status DC Lidocaine/ Epinephrine (Xylocaine-Epi 1%-1:100,000 Inj) 20 ml STK-MED ONCE .ROUTE Last administered on 08/12/17 14:40; Start 08/12/17 at 13:37; Stop 08/12/17 at 13:38; Status DC Sodium Phosphate 15 mmol/Sodium Chloride 155 ml @ 38.75 mls/ hr ONCE ONCE IV Last administered on 08/12/17 18:51; Start 08/12/17 at 16:00; Stop 08/12/17 at 19:59; Status DC Vancomycin HCl 1000 mg/Sodium Chloride 250 ml @ 250 mls/hr WITH DIALYSIS IV Last administered on 08/15/17 12:00; Start 08/15/17 at 14:00 Fluconazole/ Sodium Chloride 100 ml @ 100 mls/hr Q24H IV Last administered on 08/15/17 21:51; Start 08/12/17 at 20:00 Hydromorphone HCl (Dilaudid Pf Inj) 0.5 mg Q4H PRN IV PAIN >5/10 Last administered on 08/13/17 03:10; Start 08/13/17 at 00:30; Stop 08/13/17 at 03:23 ; Status DC Hydromorphone HCl (Dilaudid Pf Inj) 0.5 mg Q2H PRN IV PAIN >5/10 Last administered on 08/13/17 04:52; Start 08/13/17 at 03:30 Fentanyl Citrate (fentaNYL INJ) 100 mcg UNSCH X1 PRN IV PUSH SEE DOSE INSTRUCTIONS; Start 08/13/17 at 03:30; Stop 08/14/17 at 03:29; Status DC Octreotide Acetate (SandoSTATIN INJ) 250 mcg Q8HR IV PUSH ; Start 08/13/17 at 14 :00; Stop 08/13/17 at 19:59; Status DC Sodium Chloride 1,000 ml @ 0 mls/hr Q0M PRN OTHER For Prime & Rinse Back Last administered on 08/15/17 12:27; Start 08/13/17 at 13:53 Sodium Chloride 1,000 ml @ 200 mls/hr Q5H PRN IV WITH DIALYSIS; Start 08/13/17 at 13:53 Sodium Chloride 1,000 ml @ 0 mls/hr Q0M PRN OTHER WITH DIALYSIS; Start at 13:53 Mannitol (Mannitol Inj) 12.5 gm UNSCH PRN IV WITH DIALYSIS; Start 08/13/17 at 14:00 Albumin Human 100 ml @ 60 mls/hr UNSCH PRN IV WITH DIALYSIS; Start 08/13/17 at 14:00 Sodium Chloride (NS Flush) 5 ml UNSCH PRN IV FLUSH WITH DIALYSIS; Start at 14:00 Ondansetron HCl (Zofran Inj) 4 mg UNSCH PRN IV PUSH WITH DIALYSIS; Start at 14:00 Acetaminophen (Tylenol) 650 mg UNSCH PRN PO for headach, pain, temp > 101F; Start 08/13/17 at 14:00 Diphenhydramine HCl (Benadryl) 25 mg UNSCH PRN PO for hives/itching/anaphylaxis ; Start 08/13/17 at 14:00 Nitroglycerin (Nitrostat Sl) 0.4 mg UNSCH PRN SL CHEST PAIN; Start 08/13/17 at 14:00 Clonidine (Catapres) 0.1 mg UNSCH PRN PO for BP > 180/100 X 2 readings; Start 08/13/17 at 14:00 Epoetin Eddie (Epogen Inj) 8,000 units UNSCH PRN IV PUSH WITH DIALYSIS Last administered on 11/6/17at 12:26; Start 08/13/17 at 14:00 Gelatin (Gelfoam 12 Mm/7 Mm Top) 1 foam UNSCH PRN TOP SEE LABEL COMMENTS Last administered on 08/15/17 12:26; Start 08/13/17 at 14:00 Miscellaneous Information ALL NURSING DEPARTME... UNSCH PRN .XX SEE LABEL COMMENTS; Start 08/13/17 at 15:00; Stop 08/14/17 at 14:59; Status DC Octreotide Acetate (SandoSTATIN INJ) 250 mcg Q8HR IV PUSH Last administered on 08/13/17 23:37; Start 08/13/17 at 22:00; Stop 08/14/17 at 10:22; Status DC Octreotide Acetate (SandoSTATIN INJ) 250 mcg Q4H IV ; Start 08/14/17 at 13:00; Status Cancel Octreotide Acetate 500 mcg/ Sodium Chloride 500 ml @ 25 mls/hr Q20H IV Last administered on 08/16/17 06:17; Start 08/14/17 at 14:00; Stop 08/19/17 at 13: 59 Calcium Acetate (Phoslo) 1,334 mg TID PO Last administered on 08/16/17 08:33; Start 08/15/17 at 13:00 A/P Problem List: (1) Elevated lactic acid level ICD Code: E87.2 - Acidosis Status: Acute (2) HYPOTENSION OF HEMODIALYSIS ICD Code: I95.3 - HYPOTENSION OF HEMODIALYSIS Status: Acute (3) Fever ICD Code: R50.9 - Fever, unspecified Status: Acute (4) ESRD (end stage renal disease) on dialysis ICD Code: N18.6 - End stage renal disease; Z99.2 - Dependence on renal dialysis Status: Chronic (5) Lupus (systemic lupus erythematosus) ICD Code: M32.9 - Systemic lupus erythematosus, unspecified (6) Hypoglycemia ICD Code: E16.2 - Hypoglycemia, unspecified (7) Anemia ICD Code: D64.9 - Anemia, unspecified Status: Acute (8) Chronic anticoagulation ICD Code: Z79.01 - long term care social worker (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 of anticoagulants (9) H/O hypercoagulable state ICD Code: Z86.2 - Personal history of diseases of the blood and blood-forming organs and certain disorders involving the immune mechanism (10) Elevated glucose ICD Code: R73.09 - Other abnormal glucose (11) Hypoalbuminemia ICD Code: E88.09 - Other disorders of plasma-protein metabolism, not elsewhere classified (12) Thrombocytopenia ICD Code: D69.6 - Thrombocytopenia, unspecified (13) Elevated AST (SGOT) ICD Code: R74.0 - Nonspecific elevation of levels of transaminase and lactic acid dehydrogenase [LDH] (14) Macrocytic anemia ICD Code: D53.9 - Nutritional anemia, unspecified (15) Severe sepsis ICD Code: A41.9 - Sepsis, unspecified organism; R65.20 - Severe sepsis without septic shock (16) History of DVT (deep vein thrombosis) ICD Code: Z86.718 - Personal history of other venous thrombosis and embolism (17) History of pulmonary embolism ICD Code: Z86.711 - Personal history of pulmonary embolism (18) Gastroesophageal reflux disease ICD Code: K21.9 - Gastro-esophageal reflux disease without esophagitis (19) Coronary artery disease ICD Code: I25.10 - Atherosclerotic heart disease of [place] coronary artery without angina pectoris (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 Currently on alprazolam 1 mg every 8 hours when necessary anxiety Acetaminophen 650 mg every 6 hours when necessary fever Noted allergy to morphine sulfate Severe sepsis - improving. Lactic acidosis Coronary artery disease status post stent PAD Echocardiogram 04/25 revealed EF 55-60%. Mild left ventricular hypertrophy. Trace TR. Started on midodrine 10 mg 3 times a day and stress dose hydrocortisone 100 mg IV every 8 hours in light of Recent steroid use- will start to taper IV steroid. Asthma? Chronic bibasilar opacification Nasal cannula to maintain saturations greater than or equal to 92% Incentive spirometry while awake continue neb treatment. Elevated AST Gastroesophageal reflux disease Bleeding Esophageal varices, with active bleeding- s/p banding gastritis Multiple large erosions were found in the duodenal bulb and 2nd part duodenum diet per GI- continue protonix and Octreotide GI following. recent hydrocortisone use Started on stress dose hydrocortisone 100 mill grams IV every 8 hours. will start to taper down. Fludrocortisone Acetate 0.1 Mg Tab 0.1 Mg PO WITH DIALYSIS currently being held in light of hydrocortisone use above End-stage renal disease on chronic intermittent hemodialysis Tuesday/Tuesday and Tuesday secondary to lupus nephritis Hyperphosphatemia Consulted nephrology - Dr. Merlos for hemodialysis Continue sevelamer 1600 mg 3 times a day for hyperphosphatemia Macrocytic anemia Anemia of chronic kidney disease and acute blood loss Thrombocytopenia Hypercoagulable state On chronic warfarin therapy. Last evaluation in [address] Oreilly. At that time workup negative except for low protein S. Did not recommend repeating. Recommended lifelong anticoagulation due to history of PE/ DVT/SVC thrombus etc. no anticoagulation because of GI bleed Transfuse as clinically indicated to maintain hemoglobin greater than 7 trend h&h Severe sepsis Recent staph epi/coag negative staph bacteremia history of enterococcus right upper extremity wound Will continue vancomycin/piperacillin/tazobactam/diflucan for now. Blood cultures 2 negative so far. ID following. tunneled vas cath removed 08/12. 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 PT evaluate and treat Hyperphosphatemia See renal. Continue sevelamer 1600 mg 3 times a day recheck phosphorus no Prophylaxis - GI - pantoprazole - DVT - SCD/on warfarin chronically. Holding in light of active GI bleed. Problem Qualifiers (1) Fever: Qualified Codes: R50.9 - Fever, unspecified (2) Lupus (systemic lupus erythematosus): Qualified Codes: M32.15 - Tubulo-interstitial nephropathy in systemic lupus erythematosus (3) Anemia: Qualified Codes: N18.6 - End stage renal disease; D63.1 - Anemia in chronic kidney disease; Z99.2 - Dependence on renal dialysis (4) Gastroesophageal reflux disease: Qualified Codes: K21.9 - Gastro-esophageal reflux disease without esophagitis (5) Coronary artery disease: Qualified Codes: I25.10 - Atherosclerotic heart disease of [place] coronary artery without angina pectoris lFori Matthews MD Aug 16, 2017 10:10
--- NOTE | 2017-08-16 10:15 | HHI.NPPN ---
Subjective History of Present Illness This patient is a 46-year-old male with a history of end-stage renal disease, SLE, hypertension, peripheral vascular disease as well as secondary hyperparathyroidism of renal disease. Unfortunately the patient has had multiple dialysis accesses including dialysis shunts and dialysis catheters in the past complicated by access failure as well as infection. Patient now has very limited options for dialysis access. We were relying on a left femoral dialysis line for access. Fortunately vessel surgery was able to create a left arm AV dialysis fistula back in February. We have used the access for dialysis 3 and the patient was scheduled to have his PermCath removed this Tuesday however presented to the dialysis facility with lethargy and pyrexia. Sepsis imost likely recurrence of line infection most likely consideration. Since admission however noted to have GI bleed and upper endoscopy revealed severe gastritis, and duodenum and mention of large bleeding esophageal varices Interval History The patient had no verbal complaints today. Objective Data Data Vital Signs Date Time Temp Pulse Resp B/P (MAP) Pulse Ox O2 Delivery O2 Flow Rate FiO2 08/16/17 08:40 95 Nasal Cannula 2.50 08/16/17 08:06 97.6 52 17 118/58 (78) 95 08/16/17 04:33 93 Nasal Cannula 2.50 08/16/17 04:00 Nasal Cannula 4.00 08/16/17 04:00 98.0 80 20 93/61 (72) 93 08/16/17 00:00 97.9 66 18 100/56 (71) 92 08/16/17 00:00 Nasal Cannula 4.00 08/15/17 20:39 55 08/15/17 20:00 Nasal Cannula 4.00 08/15/17 20:00 97.5 53 18 90/52 (65) 92 08/15/17 18:00 70 08/15/17 16:00 70 08/15/17 16:00 98.0 70 12 89/48 (62) 95 08/15/17 14:00 68 08/15/17 12:00 97.8 72 11 106/55 (72) 98 08/15/17 12:00 72 -: 08/14/17 0400 08/15/17 0430 Physical Exam General Appearance: Well Developed, Well Nourished, No Acute Distress, Comfortable Eyes Eye Exam: Sclera White Pulmonary Resp Exam: Clear Bilaterally, Breath Sounds Equal, No Distress Cardiology CV Exam: Regular, Normal Sinus Rhythm Gastrointestinal/Abdomen GI Exam: Soft, Non-Tender Integumentary Skin Exam: Clear, Warm Extremeties Extremities Exam: No Edema Neurologic Neuro Exam: Alert, Awake, Speech Clear, Moving All Extremities, Sedated Psychiatric Psych Exam: Appropriate Responses Assessment/Plan Discussed Condition With: Patient Problem List: (1) End-stage renal disease on hemodialysis ICD Codes: N18.6 - End stage renal disease; Z99.2 - Dependence on renal dialysis Status: Chronic Plan: Patient appears clinically stable today from a renal point of view. Discharge planning per primary care physician and gastroenterology. Patient clear for discharge from a renal point of view with outpatient follow- up at the dialysis facility. Avoid gadolinium. Medication should be adjusted for his end-stage renal disease when indicated. Because of urgency of transport patient's dialysis needles is still present in his fistula. I contacted Jeff the dialysis nurse who indicated that one of the dialysis nurses will come down today to remove the needles. (2) Complications, dialysis, catheter, mechanical ICD Codes: T82.49XA - Other complication of vascular dialysis catheter, initial encounter Status: Acute Plan: I Hemodialysis PermCath removed. AV dialysis fistula appears to be working well. Blood cultures negative 48 hours but will continue to monitor. Antibiotics as per infectious disease. It is possible his presentation was primarily related to GI bleed. (3) Anemia of renal disease ICD Codes: D63.1 - Anemia in chronic kidney disease Status: Chronic Plan: Epogen increased. I will continue Aranesp as an outpatient for management of anemia. (4) Esophageal varices determined by endoscopy ICD Codes: I85.00 - Esophageal varices without bleeding Plan: As far as I'm aware the patient has no known history of cirrhosis. Previous hepatitis profile negative. 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 Clarence Merlos MD Aug 16, 2017 10:15
--- NOTE | 2017-08-16 11:22 | HHI.IDPN ---
Subjective Subjective Remarks Patient is a 46-year-old male, presented to the hospital for further evaluation of hypotension. He has known end-stage renal disease, and gets hemodialysis every Tuesday and Tuesday. He was in the dialysis clinic and he was found to be febrile, hypotensive, and tachycardic. He completed his treatment, and he was advised to go to the hospital for further evaluation and treatment. Patient currently has been having fevers since his been in the emergency room. He is also complaining of being sick to his stomach, and has had some nausea. Denies any abdominal pain. He denies any respiratory complaint. Patient has known central venous occlusion, and the only patent venous access for dialysis has been in his left femoral groin. During his last admission in June, he was treated for staph epidermides and Bryon proptosis sepsis. He was supposed to complete treatment till July 11. The catheter was exchanged during that admission. Patient has a right upper extremity AV fistula, and it was evaluated by the vascular surgeon when he was discharged from the hospital, and the last 3 dialysis, his AV fistula has been used. Patient also during his last admission had problem with hypoglycemia and his workup was negative at that time. Infectious disease consultation has been requested to evaluate the patient. 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 Vital Signs Date Time Temp Pulse Resp B/P (MAP) Pulse Ox O2 Delivery O2 Flow Rate FiO2 08/16/17 08:40 95 Nasal Cannula 2.50 08/16/17 08:06 97.6 52 17 118/58 (78) 95 08/16/17 04:33 93 Nasal Cannula 2.50 08/16/17 04:00 Nasal Cannula 4.00 08/16/17 04:00 98.0 80 20 93/61 (72) 93 08/16/17 00:00 97.9 66 18 100/56 (71) 92 08/16/17 00:00 Nasal Cannula 4.00 08/15/17 20:39 55 08/15/17 20:00 Nasal Cannula 4.00 08/15/17 20:00 97.5 53 18 90/52 (65) 92 08/15/17 18:00 70 08/15/17 16:00 70 08/15/17 16:00 98.0 70 12 89/48 (62) 95 08/15/17 14:00 68 08/15/17 12:00 97.8 72 11 106/55 (72) 98 08/15/17 12:00 72 . Laboratory Tests Test 08/15/17 04:30 08/15/17 12:30 Blood Urea Nitrogen 62 MG/DL Creatinine 9.72 MG/DL Random Glucose 131 MG/DL Albumin 2.8 GM/DL Calcium Level 7.4 MG/DL Phosphorus Level 7.7 MG/DL Sodium Level 134 MEQ/L Potassium Level 4.7 MEQ/L Chloride Level 97 MEQ/L Carbon Dioxide Level 24.4 MEQ/L Anion Gap 13 MEQ/L Estimat Glomerular Filtration Rate 7 ML/MIN Iron Level 159 MCG/DL Total Iron Binding Capacity 249 MCG/DL Percent Iron Saturation 63.8 % Ferritin 1888 NG/ML Tumor Marker Alpha Fetoprotein 2.9 NG/ML Imaging RADIOLOGY STUDIES/FILMS REVIEWED Chest X-Ray 08/12/17 0910 Signed Impressions: Service Date/Time: Saturday, August 12, 2017 09:25 - CONCLUSION: 1. Stable scattered patchiness bilaterally. Chon Nye MD Central Venous Line 08/12/17 0000 Signed Impressions: Service Date/Time: Saturday, August 12, 2017 00:00 - CONCLUSION: Uncomplicated Permcath removal. Shmuel Beckett MD Physical Exam GENERAL: awake and alert, not in respiratory distress. SKIN: Warm and very dry. No generalized rash, no ecchymoses and no evidence of embolic lesions. HEAD: Atraumatic. Normocephalic. No temporal wasting, or tenderness. EYES: [place] conjunctiva. No petechia or hemorrhage. Pupils equal, round and reactive to light. Extraocular movements full and intact. No scleral icterus. EARS, NOSE AND THROAT: Nose without bleeding or purulent nasal discharge. Mucous membranes pink and moist. No oral lesions noted. NECK: Trachea midline. Supple and not tender, no meningeal signs CARDIOVASCULAR: Regular rate and rhythm. No murmurs, rubs or gallops heard RESPIRATORY: Clear to auscultation. Breath sounds equal bilaterally. No rales , wheezing or rhonchi ABDOMEN: Soft, non-tender, nondistended. Bowel sounds present and normoactive. No guarding. No rebound. No organomegaly. EXTREMITIES: No clubbing, cyanosis, or edema. Has bilateral BKA, with a well- healed stump. Previous permacath site is dry, no induration. R groin line looks ok . RUE AVF ok NEUROLOGICAL: Awake and alert. Cranial nerves grossly intact. Motor grossly within normal limits. PSYCHIATRIC: Normal affect, calm and cooperative. LINE: R groin central line with no evidence of infection Assessment & Plan Remarks IMPRESSION Sepsis syndrome on presentation which shocked, highly suspicious for line- related sepsis - Has had the chronic femoral permacath in place, just removed today Previous treatment for recent staph epi and bryon sepsis, completed treatment July 11 ESRD, on HD, MWF Known PVD Hx central venous occlusion RECOMMENDATION Stop Zosyn Stop Diflucan IV PO Diflucan till 07/19 Continue IV vanco with HD, give with HD Monitor progress Consider removing his R groin central line Clinically doing well from ID standpoint Explained plan to the patient Louann Barney MD Aug 16, 2017 11:22
[2017-08-16] MEDS: FLUCONAZOLE 100 MG TAB PO SCH (12:22)
[2017-08-16] MEDS ORDERED: HYDROCORTISONE SOD SUCCINATE 100 MG VIAL IV PUSH SCH (21:00)
[2017-08-17] VITALS (8 sets, daily range): BP systolic 108–127; BP diastolic 56–66; PULSE 40–53; RESP 18; TEMP 96.6–97.4; O2SAT 91–96
[2017-08-17] MEDS: OCTREOTIDE INJ 500 MCG in SODIUM CHLORID 0.9% 500 ML INJ 499.5 ML IV SCH ×2 (03:12→23:11)
[2017-08-17] MEDS: RESP: ALBUTEROL 2.5 MG/IPRATROPIUM 0.5 MG NEB (SCH) INH ×4 (04:07→22:29)
[2017-08-17] MEDS: MIDODRINE 5 MG TAB PO SCH ×3 (06:24→16:19)
[2017-08-17] MEDS: SODIUM CHLORIDE 0.9% FLUSH 10 ML FLUSH IV FLUSH SCH ×2 (07:47→21:24)
[2017-08-17] MEDS: INSULIN NovoLIN REGULAR SUPPLEMENTAL SCALE SQ SCH ×4 (08:00→21:00)
[2017-08-17] MEDS: CALCIUM ACETATE 667 MG CAP PO SCH ×3 (09:00→17:32)
[2017-08-17] MEDS: VANCOMYCIN INJ 1,000 MG in SODIUM CHLOR 0.9% 250 ML INJ 250 ML IV SCH (12:46)
[2017-08-17] MEDS: EPOETIN ALFA 10,000 UNITS/ML VIAL IV PUSH PRN (12:46)
--- NOTE | 2017-08-17 12:56 | HHI.PR ---
Subjective Remarks in no distress. no fever. denies pain. having his HD today. no new complaints. Objective Vitals Vital Signs Date Time Temp Pulse Resp B/P (MAP) Pulse Ox O2 Delivery O2 Flow Rate FiO2 08/17/17 10:03 Nasal Cannula 3.00 100 08/17/17 08:06 97.3 43 18 118/66 (83) 91 08/17/17 04:00 96.6 40 18 127/58 (81) 96 08/17/17 00:00 97.3 48 18 113/59 (77) 95 08/16/17 20:12 42 08/16/17 20:00 97.4 49 18 111/59 (76) 96 08/16/17 20:00 Nasal Cannula 3.00 08/16/17 16:06 98.2 46 18 123/61 (81) 95 08/16/17 15:28 Nasal Cannula 2.50 100 I/O 08/16/17 08/16/17 08/16/17 08/17/17 08/17/17 08/17/17 07:00 15:00 23:00 07:00 15:00 23:00 Intake Total 1874 ml 600 ml Output Total 0 ml 3000 ml Balance 1874 ml 600 ml -3000 ml Intake Oral 360 ml 600 ml IV Total 1514 ml Output Urine Total 0 ml Hemodialysis 3000 ml # Voids 0 # Bowel Movements 0 1 Result Diagram: 08/14/17 0400 08/15/17 0430 Imaging Last Impressions Chest X-Ray 08/12/17 0910 Signed Impressions: Service Date/Time: Saturday, August 12, 2017 09:25 - CONCLUSION: 1. Stable scattered patchiness bilaterally. Chon Nye MD Central Venous Line 08/12/17 0000 Signed Impressions: Service Date/Time: Saturday, August 12, 2017 00:00 - CONCLUSION: Uncomplicated Permcath removal. Shmuel Beckett MD Objective Remarks GENERAL: This is a well-nourished, well-developed patient, in no apparent distress. CARDIOVASCULAR: Regular rate and regular rhythm without murmurs, gallops, or rubs. RESPIRATORY: Clear to auscultation. Breath sounds equal bilaterally. No wheezes , rales, or rhonchi. GASTROINTESTINAL: Abdomen soft, non-tender, nondistended. Normal, active bowel sounds MUSCULOSKELETAL: s/o bilateral BKA NEURO: Alert & Oriented x4 to person, place, time, situation. Moves all ext x4 Procedures EGD PROCEDURE REPORT EXAM DATE: 08/13/2017 INDICATIONS: The patient is a 46 yr old male here for an EGD due to melena PROCEDURE PERFORMED: EGD w/ band ligation of varices MEDICATIONS: None and Per Anesthesia. TOPICAL ANESTHETIC: none CONSENT: The patient understands the risks and benefits of the procedure and understands that these risks include, but are not limited to: sedation, allergic reaction, infection, perforation and/or bleeding. Alternative means of evaluation and treatment include, among others: physical exam, x-rays, and/or surgical intervention. The patient elects to proceed with this endoscopic procedure. medical equipment was checked for proper function. Hand hygiene and appropriate measures for infection prevention was taken. After the risks, benefits and alternatives of the procedure were thoroughly explained, Informed consent was verified, confirmed and timeout was successfully executed by the treatment team. The patient was anesthetized with topical anesthesia and the Pentax [id number] endoscope was introduced through the mouth and advanced to the second portion of the duodenum. Retroflexion was performed and was normal The gastroscope was then slowly withdrawn and removed. ESOPHAGUS: There were large varices in the middle third of the esophagus and lower third esophagus. The varices were bleeding intermittently with spurting spot , 6 bands applied and bleeding controlled. STOMACH: There was severe and erosive gastritis in the entire examined stomach. DUODENUM: Multiple large shallow erosions were found in the duodenal bulb and 2nd part duodenum. ADVERSE EVENTS: There were no complications. IMPRESSIONS: 1. Bleeding Esophageal varices, with active bleeding identified, 6 bands applied to controll the bleeding 2. There was gastritis in the entire examined stomach 3. Multiple large erosions were found in the duodenal bulb and 2nd part duodenum RECOMMENDATIONS: Continue PPI , start Octreotide, PATIENT CONDITION: stable DISPOSITION: Observation REPEAT EXAM: Return 4 weeks EGD Chon Rodriguez MD 08/13/2017 1:38 PM Medications and IVs Current Medications Dextrose (D50w (Vial) Inj) 50 ml STK-MED ONCE .ROUTE ; Start 08/12/17 at 09:09; Stop 08/12/17 at 09:10; Status DC Acetaminophen (Tylenol) 650 mg ONCE ONCE PO ; Start 08/12/17 at 09:15; Stop at 09:16; Status DC Vancomycin HCl 1000 mg/Sodium Chloride 250 ml @ 250 mls/hr ONCE STAT IV Last administered on 08/12/17 10:32; Start 08/12/17 at 09:10; Stop 08/12/17 at 10:09 ; Status DC Piperacillin Sod/ Tazobactam Sod 50 ml @ 100 mls/hr ONCE ONCE IV Last administered on 08/12/17 09:48; Start 08/12/17 at 09:15; Stop 08/12/17 at 09:44 ; Status DC Dextrose (D50w (Vial) Inj) 50 ml NOW ONCE IV PUSH Last administered on 10:56; Start 08/12/17 at 10:45; Stop 08/12/17 at 10:46; Status DC Acetaminophen (Tylenol Supp) 650 mg NOW ONCE RECTAL Last administered on 10:56; Start 08/12/17 at 10:45; Stop 08/12/17 at 10:46; Status DC Sodium Chloride 250 ml @ 15 mls/hr ONCE ONCE IV Last administered on 15:23; Start 08/12/17 at 11:30; Stop 08/13/17 at 04:09; Status DC Sodium Chloride 1,000 ml @ 84 mls/hr [id number] IV Last administered on 12:10; Start 08/12/17 at 11:45; Stop 08/12/17 at 12:20; Status DC Sodium Chloride (NS Flush) 2 ml UNSCH PRN IV FLUSH FLUSH AFTER USING IV ACCESS ; Start 08/12/17 at 11:45 Sodium Chloride (NS Flush) 2 ml BID IV FLUSH Last administered on 08/17/17 07: 47; Start 08/12/17 at 21:00 Acetaminophen (Tylenol) 650 mg Q6H PRN PO PAIN 1-5 AND/OR FEVER >101F Last administered on 08/12/17 23:53; Start 08/12/17 at 11:45 Acetaminophen/ Hydrocodone Bitart ([place] 5-325 Mg) 1 tab Q4H PRN PO PAIN SCALE 1 TO 5; Start 08/12/17 at 11:45; Stop 08/12/17 at 11:51; Status DC Morphine Sulfate (Morphine Inj) 2 mg Q2H PRN IV PUSH PAIN SCALE 6 TO 10; Start 08/12/17 at 11:45; Stop 08/12/17 at 11:51; Status DC Pantoprazole Sodium (Protonix Inj) 40 mg DAILY IV PUSH ; Start 08/13/17 at 09:00 ; Stop 08/13/17 at 09:00; Status DC Ondansetron HCl (Zofran Inj) 4 mg Q6H PRN IV PUSH NAUSEA OR VOMITING Last administered on 08/15/17 13:52; Start 08/12/17 at 11:45 Albuterol/ Ipratropium (Duoneb Neb) 1 ampule Q6HR NEB INH Last administered on 08/16/17 16:23; Start 08/12/17 at 16:00 Albuterol Sulfate (Albuterol Neb) 2.5 mg Q2HR NEB PRN INH SOB/WHEEZING; Start 08/12/17 at 11:45 Miscellaneous Information 1 Q361D XX ; Start 08/12/17 at 11:45 Senna/Docusate Sodium (Angelika-Colace) 1 tab BID PO Last administered on 21:01; Start 08/12/17 at 21:00 Magnesium Hydroxide (Milk Of Magnesia Liq) 30 ml Q12H PRN PO Mild constipation ; Start 08/12/17 at 11:45 Sennosides (Senokot) 17.2 mg Q12H PRN PO Moderate constipation; Start 08/12/17 at 11:45 Bisacodyl (Dulcolax Supp) 10 mg DAILY PRN RECTAL SEVERE CONSITIPATION; Start 08/12/17 at 11:45 Lactulose (Lactulose Liq) 30 ml DAILY PRN PO SEVERE CONSITIPATION; Start at 11:45 Midodrine (Proamatine) 10 mg TID@,12,17 PO Last administered on 08/17/17 06: 24; Start 08/12/17 at 12:00 Hydrocortisone Sodium Succinate (SoluCORTEF INJ) 100 mg Q8HR IV PUSH Last administered on 08/16/17 06:17; Start 08/12/17 at 14:00; Stop 08/16/17 at 10:11 ; Status DC Alprazolam (Xanax) 1 mg Q8H PRN PO ANXIETY Last administered on 08/12/17 23:53 ; Start 08/12/17 at 12:00 Fluconazole (Diflucan) 400 mg DAILY PO ; Start 08/13/17 at 09:00; Stop 08/13/17 at 09:00; Status DC Sevelamer Carbonate (Renvela) 1,600 mg TID PO ; Start 08/12/17 at 13:00; Stop 08/15/17 at 11:59; Status DC Warfarin Sodium (Coumadin) 4 mg DAILY PO ; Start 08/13/17 at 09:00; Stop at 09:00; Status DC Warfarin Sodium (Coumadin) 3 mg DAILY@1600 PO ; Start 08/12/17 at 16:00; Stop 08/12/17 at 16:00; Status DC Phenylephrine HCl 160 mg/Dextrose 500 ml @ 7.5 mls/hr TITRATE PRN IV Blood pressure management Last administered on 08/12/17 13:26; Start 08/12/17 at 12: 00 Terbutaline Sulfate (Brethine Inj) 1 mg UNSCH PRN SQ For Extravasation Last administered on 08/13/17 03:13; Start 08/12/17 at 12:00 Piperacillin Sod/ Tazobactam Sod 50 ml @ 100 mls/hr Q8H IV Last administered on 08/16/17 10:11; Start 08/12/17 at 18:00; Stop 08/16/17 at 11:15; Status DC Pharmacy Profile Note 0 ml @ 0 mls/hr UNSCH OTHER ; Start 08/12/17 at 12:00; Stop 08/12/17 at 17:08; Status DC Dextrose/Sodium Chloride 1,000 ml @ 30 mls/hr Q24H IV Last administered on 00:27; Start 08/12/17 at 12:30 Dextrose (D50w (Vial) Inj) 50 ml UNSCH PRN IV PUSH HYPOGLYCEMIA-SEE COMMENTS; Start 08/12/17 at 12:30 Glucagon (Glucagon Inj) 1 mg UNSCH PRN OTHER HYPOGLYCEMIA-SEE COMMENTS; Start 08/12/17 at 12:30 Insulin Human Regular (NovoLIN R SUPPLEMENTAL SCALE) 1 ACHS SLIDING SCALE SQ Last administered on 08/14/17 12:56; Start 08/12/17 at 17:00 Pantoprazole Sodium (Protonix Inj) 40 mg BID IV PUSH Last administered on 21:02; Start 08/12/17 at 21:00 Albumin Human 50 ml @ 60 mls/hr ONCE ONCE IV Last administered on 08/12/17 16 :44; Start 08/12/17 at 14:00; Stop 08/12/17 at 14:49; Status DC Epoetin Eddie (Epogen Inj) 10,000 units ONCE ONCE SQ Last administered on 15:34; Start 08/12/17 at 14:00; Stop 08/12/17 at 14:01; Status DC Lidocaine/ Epinephrine (Xylocaine-Epi 1%-1:100,000 Inj) 20 ml STK-MED ONCE .ROUTE Last administered on 08/12/17 14:40; Start 08/12/17 at 13:37; Stop 08/12/17 at 13:38; Status DC Sodium Phosphate 15 mmol/Sodium Chloride 155 ml @ 38.75 mls/ hr ONCE ONCE IV Last administered on 08/12/17 18:51; Start 08/12/17 at 16:00; Stop 08/12/17 at 19:59; Status DC Vancomycin HCl 1000 mg/Sodium Chloride 250 ml @ 250 mls/hr WITH DIALYSIS IV Last administered on 08/17/17 12:46; Start 08/15/17 at 14:00 Fluconazole/ Sodium Chloride 100 ml @ 100 mls/hr Q24H IV Last administered on 08/15/17 21:51; Start 08/12/17 at 20:00; Stop 08/16/17 at 11:15; Status DC Hydromorphone HCl (Dilaudid Pf Inj) 0.5 mg Q4H PRN IV PAIN >5/10 Last administered on 08/13/17 03:10; Start 08/13/17 at 00:30; Stop 08/13/17 at 03:23 ; Status DC Hydromorphone HCl (Dilaudid Pf Inj) 0.5 mg Q2H PRN IV PAIN >5/10 Last administered on 08/13/17 04:52; Start 08/13/17 at 03:30 Fentanyl Citrate (fentaNYL INJ) 100 mcg UNSCH X1 PRN IV PUSH SEE DOSE INSTRUCTIONS; Start 08/13/17 at 03:30; Stop 08/14/17 at 03:29; Status DC Octreotide Acetate (SandoSTATIN INJ) 250 mcg Q8HR IV PUSH ; Start 08/13/17 at 14 :00; Stop 08/13/17 at 19:59; Status DC Sodium Chloride 1,000 ml @ 0 mls/hr Q0M PRN OTHER For Prime & Rinse Back Last administered on 08/15/17 12:27; Start 08/13/17 at 13:53 Sodium Chloride 1,000 ml @ 200 mls/hr Q5H PRN IV WITH DIALYSIS; Start 08/13/17 at 13:53 Sodium Chloride 1,000 ml @ 0 mls/hr Q0M PRN OTHER WITH DIALYSIS; Start at 13:53 Mannitol (Mannitol Inj) 12.5 gm UNSCH PRN IV WITH DIALYSIS; Start 08/13/17 at 14:00 Albumin Human 100 ml @ 60 mls/hr UNSCH PRN IV WITH DIALYSIS; Start 08/13/17 at 14:00 Sodium Chloride (NS Flush) 5 ml UNSCH PRN IV FLUSH WITH DIALYSIS; Start at 14:00 Ondansetron HCl (Zofran Inj) 4 mg UNSCH PRN IV PUSH WITH DIALYSIS; Start at 14:00 Acetaminophen (Tylenol) 650 mg UNSCH PRN PO for headach, pain, temp > 101F; Start 08/13/17 at 14:00 Diphenhydramine HCl (Benadryl) 25 mg UNSCH PRN PO for hives/itching/anaphylaxis ; Start 08/13/17 at 14:00 Nitroglycerin (Nitrostat Sl) 0.4 mg UNSCH PRN SL CHEST PAIN; Start 08/13/17 at 14:00 Clonidine (Catapres) 0.1 mg UNSCH PRN PO for BP > 180/100 X 2 readings; Start 08/13/17 at 14:00 Epoetin Eddie (Epogen Inj) 8,000 units UNSCH PRN IV PUSH WITH DIALYSIS Last administered on 08/15/17 12:26; Start 08/13/17 at 14:00; Stop 08/16/17 at 10:14 ; Status DC Gelatin (Gelfoam 12 Mm/7 Mm Top) 1 foam UNSCH PRN TOP SEE LABEL COMMENTS Last administered on 08/15/17 12:26; Start 08/13/17 at 14:00 Miscellaneous Information ALL NURSING DEPARTME... UNSCH PRN .XX SEE LABEL COMMENTS; Start 08/13/17 at 15:00; Stop 08/14/17 at 14:59; Status DC Octreotide Acetate (SandoSTATIN INJ) 250 mcg Q8HR IV PUSH Last administered on 08/13/17 23:37; Start 08/13/17 at 22:00; Stop 08/14/17 at 10:22; Status DC Octreotide Acetate (SandoSTATIN INJ) 250 mcg Q4H IV ; Start 08/14/17 at 13:00; Status Cancel Octreotide Acetate 500 mcg/ Sodium Chloride 500 ml @ 25 mls/hr Q20H IV Last administered on 08/17/17 03:12; Start 08/14/17 at 14:00; Stop 08/19/17 at 13: 59 Calcium Acetate (Phoslo) 1,334 mg TID PO Last administered on 08/16/17 12:21; Start 08/15/17 at 13:00 Hydrocortisone Sodium Succinate (SoluCORTEF INJ) 100 mg Q12HR IV PUSH Last administered on 08/16/17 21:02; Start 08/16/17 at 21:00 Epoetin Eddie (Epogen Inj) 10,000 units UNSCH PRN IV PUSH WITH DIALYSIS Last administered on 08/17/17 12:46; Start 08/16/17 at 10:15 Fluconazole (Diflucan) 100 mg DAILY PO Last administered on 08/16/17 12:22; Start 08/16/17 at 12:00 A/P Problem List: (1) Elevated lactic acid level ICD Code: E87.2 - Acidosis Status: Acute (2) HYPOTENSION OF HEMODIALYSIS ICD Code: I95.3 - HYPOTENSION OF HEMODIALYSIS Status: Acute (3) Fever ICD Code: R50.9 - Fever, unspecified Status: Acute (4) ESRD (end stage renal disease) on dialysis ICD Code: N18.6 - End stage renal disease; Z99.2 - Dependence on renal dialysis Status: Chronic (5) Lupus (systemic lupus erythematosus) ICD Code: M32.9 - Systemic lupus erythematosus, unspecified (6) Hypoglycemia ICD Code: E16.2 - Hypoglycemia, unspecified (7) Anemia ICD Code: D64.9 - Anemia, unspecified Status: Acute (8) Chronic anticoagulation ICD Code: Z79.01 - manager intermediate (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 of anticoagulants (9) H/O hypercoagulable state ICD Code: Z86.2 - Personal history of diseases of the blood and blood-forming organs and certain disorders involving the immune mechanism (10) Elevated glucose ICD Code: R73.09 - Other abnormal glucose (11) Hypoalbuminemia ICD Code: E88.09 - Other disorders of plasma-protein metabolism, not elsewhere classified (12) Thrombocytopenia ICD Code: D69.6 - Thrombocytopenia, unspecified (13) Elevated AST (SGOT) ICD Code: R74.0 - Nonspecific elevation of levels of transaminase and lactic acid dehydrogenase [LDH] (14) Macrocytic anemia ICD Code: D53.9 - Nutritional anemia, unspecified (15) Severe sepsis ICD Code: A41.9 - Sepsis, unspecified organism; R65.20 - Severe sepsis without septic shock (16) History of DVT (deep vein thrombosis) ICD Code: Z86.718 - Personal history of other venous thrombosis and embolism (17) History of pulmonary embolism ICD Code: Z86.711 - Personal history of pulmonary embolism (18) Gastroesophageal reflux disease ICD Code: K21.9 - Gastro-esophageal reflux disease without esophagitis (19) Coronary artery disease ICD Code: I25.10 - Atherosclerotic heart disease of [place] coronary artery without angina pectoris (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 Currently on alprazolam 1 mg every 8 hours when necessary anxiety Acetaminophen 650 mg every 6 hours when necessary fever Noted allergy to morphine sulfate Severe sepsis - improving. Lactic acidosis Coronary artery disease status post stent PAD Echocardiogram 04/25 revealed EF 55-60%. Mild left ventricular hypertrophy. Trace TR. Started on midodrine 10 mg 3 times a day . continue to taper down IV steroid. Asthma? Chronic bibasilar opacification Nasal cannula to maintain saturations greater than or equal to 92% Incentive spirometry while awake continue neb treatment. Elevated AST Gastroesophageal reflux disease Bleeding Esophageal varices, with active bleeding- s/p banding gastritis Multiple large erosions were found in the duodenal bulb and 2nd part duodenum diet per GI- continue protonix and Octreotide GI following. recent hydrocortisone use Started on stress dose hydrocortisone 100 mill grams IV every 8 hours. will continue to taper down. Fludrocortisone Acetate 0.1 Mg Tab 0.1 Mg PO WITH DIALYSIS currently being held in light of hydrocortisone use above End-stage renal disease on chronic intermittent hemodialysis Tuesday/Tuesday and Tuesday secondary to lupus nephritis Hyperphosphatemia Consulted nephrology - Dr. Merlos for hemodialysis Continue sevelamer 1600 mg 3 times a day for hyperphosphatemia Macrocytic anemia Anemia of chronic kidney disease and acute blood loss Thrombocytopenia Hypercoagulable state On chronic warfarin therapy. Last evaluation in [address] O[place]. At that time workup negative except for low protein S. Did not recommend repeating. Recommended lifelong anticoagulation due to history of PE/ DVT/SVC thrombus etc. no anticoagulation because of GI bleed Transfuse as clinically indicated to maintain hemoglobin greater than 7 trend h&h Severe sepsis Recent staph epi/coag negative staph bacteremia history of enterococcus right upper extremity wound Will continue vancomycin/piperacillin/tazobactam/diflucan for now. Blood cultures 2 negative so far. ID following. tunneled vas cath removed 08/12. MSK/Rheum: SLE positive History bilateral [id number] amputation's Right second/third finger amputation Currently not on any long-term medication for SLE. PT evaluate and treat Hyperphosphatemia See renal. Continue sevelamer 1600 mg 3 times a day recheck phosphorus no Prophylaxis - GI - pantoprazole - DVT - SCD/on warfarin chronically. Holding in light of active GI bleed. Discharge Planning dc home on Tuesday- after HD. d/w and case management. Problem Qualifiers (1) Fever: Qualified Codes: R50.9 - Fever, unspecified (2) Lupus (systemic lupus erythematosus): Qualified Codes: M32.15 - Tubulo-interstitial nephropathy in systemic lupus erythematosus (3) Anemia: Qualified Codes: N18.6 - End stage renal disease; D63.1 - Anemia in chronic kidney disease; Z99.2 - Dependence on renal dialysis (4) Gastroesophageal reflux disease: Qualified Codes: K21.9 - Gastro-esophageal reflux disease without esophagitis (5) Coronary artery disease: Qualified Codes: I25.10 - Atherosclerotic heart disease of [place] coronary artery without angina pectoris Flori Matthews MD Aug 17, 2017 12:56
--- NOTE | 2017-08-17 13:42 | HHI.IDPN ---
Subjective Subjective Remarks Patient is a 46-year-old male, presented to the hospital for further evaluation of hypotension. He has known end-stage renal disease, and gets hemodialysis every Tuesday and Tuesday. He was in the dialysis clinic and he was found to be febrile, hypotensive, and tachycardic. He completed his treatment, and he was advised to go to the hospital for further evaluation and treatment. Patient currently has been having fevers since his been in the emergency room. He is also complaining of being sick to his stomach, and has had some nausea. Denies any abdominal pain. He denies any respiratory complaint. Patient has known central venous occlusion, and the only patent venous access for dialysis has been in his left femoral groin. During his last admission in June, he was treated for staph epidermides and Bryon proptosis sepsis. He was supposed to complete treatment till July 11. The catheter was exchanged during that admission. Patient has a right upper extremity AV fistula, and it was evaluated by the vascular surgeon when he was discharged from the hospital, and the last 3 dialysis, his AV fistula has been used. Patient also during his last admission had problem with hypoglycemia and his workup was negative at that time. Infectious disease consultation has been requested to evaluate the patient. Notes reviewed Temps ok BP ok Seen during his HD Anxious to go home Out of ICU BC are all negative Permacath tip with yeast and Corynebacterium EGD findings noted No new complaint Permacath still in place - on octreotide IV and solucortef being tapered down Antibiotics Vanco IV with HD Diflucan po Lines R groin TLC Past Medical History ESRD, on hemodialysis MWF SLE CAD Hypertension Severe PVD History of DVT Hyperparathyroidism of renal origin Previous hemodialysis catheter line related infection Known central venous occlusion Status post treatment staph epi and bryon sepsis Past Surgical History 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 Vital Signs Date Time Temp Pulse Resp B/P (MAP) Pulse Ox O2 Delivery O2 Flow Rate FiO2 08/17/17 10:03 Nasal Cannula 3.00 100 08/17/17 08:06 97.3 43 18 118/66 (83) 91 08/17/17 04:00 96.6 40 18 127/58 (81) 96 08/17/17 00:00 97.3 48 18 113/59 (77) 95 08/16/17 20:12 42 08/16/17 20:00 97.4 49 18 111/59 (76) 96 08/16/17 20:00 Nasal Cannula 3.00 08/16/17 16:06 98.2 46 18 123/61 (81) 95 08/16/17 15:28 Nasal Cannula 2.50 100 08/17/17 08/17/17 08/18/17 15:00 23:00 07:00 Output Total 3000 ml Balance -3000 ml Hemodialysis 3000 ml Imaging RADIOLOGY STUDIES/FILMS REVIEWED Chest X-Ray 08/12/17 0910 Signed Impressions: Service Date/Time: Saturday, August 12, 2017 09:25 - CONCLUSION: 1. Stable scattered patchiness bilaterally. Chon Nye MD Central Venous Line 08/12/17 0000 Signed Impressions: Service Date/Time: Saturday, August 12, 2017 00:00 - CONCLUSION: Uncomplicated Permcath removal. Shmuel Beckett MD Physical Exam GENERAL: awake and alert, not in respiratory distress. SKIN: Warm and very dry. No generalized rash, no ecchymoses and no evidence of embolic lesions. HEAD: Atraumatic. Normocephalic. No temporal wasting, or tenderness. EYES: Kerby conjunctiva. No petechia or hemorrhage. Pupils equal, round and reactive to light. Extraocular movements full and intact. No scleral icterus. EARS, NOSE AND THROAT: Nose without bleeding or purulent nasal discharge. Mucous membranes pink and moist. No oral lesions noted. NECK: Trachea midline. Supple and not tender, no meningeal signs CARDIOVASCULAR: Regular rate and rhythm. No murmurs, rubs or gallops heard RESPIRATORY: Clear to auscultation. Breath sounds equal bilaterally. No rales , wheezing or rhonchi ABDOMEN: Soft, non-tender, nondistended. Bowel sounds present and normoactive. No guarding. No rebound. No organomegaly. EXTREMITIES: No clubbing, cyanosis, or edema. Has bilateral BKA, with a well- healed stump. Previous permacath site is dry, no induration. R groin line looks ok . RUE AVF ok NEUROLOGICAL: Awake and alert. Cranial nerves grossly intact. Motor grossly within normal limits. PSYCHIATRIC: Normal affect, calm and cooperative. LINE: R groin central line with no evidence of infection Assessment & Plan Remarks IMPRESSION Sepsis syndrome on presentation which shocked, highly suspicious for line- related sepsis, resolved - Has had the chronic femoral permacath in place, removed Previous treatment for recent staph epi and bryon sepsis, completed treatment July 11 ESRD, on HD, MWF Known PVD Hx central venous occlusion RECOMMENDATION PO Diflucan till 07/19 Continue IV vanco with HD, give with HD - if still here on Tuesday, give another dose then and D/C Monitor progress Consider removing his R groin central line Clinically doing well from ID standpoint Explained plan to the patient D/W Dr Cassie Boothe will be available prn Please call if with any new ID issue or question Louann Barney MD Aug 17, 2017 13:42
[2017-08-17] MEDS: FLUCONAZOLE 100 MG TAB PO SCH (13:48)
[2017-08-17] MEDS: PANTOPRAZOLE SODIUM 40 MG VIAL IV PUSH SCH ×2 (13:48→21:24)
[2017-08-17] MEDS: DOCUSATE SODIUM 50 MG/SENNA 8.6 MG TAB PO SCH ×2 (13:49→21:24)
[2017-08-17 13:59] LABS: ANA SCREEN NEG (NEG)
--- NOTE | 2017-08-17 15:54 | OTSOAPIP ---
TIME SESSION COMPLETED: AM TREATMENT TIME: 0 MINS. CHART REVIEWED. ATTEMPTED TO SEE FOR OT EVALUATION, HOWEVER OFF FLOOR FOR DIALYSIS. WILL FOLLOW NEXT DAY. Therapist: CLAUDE TENA OT/Randell Signature on file
--- NOTE | 2017-08-17 16:52 | HHI.GIFU ---
Subjective Remarks Pt resting in bed, today is his birthday and he wants to go home. Tolerating diet. Denies bleeding, abd pain. 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) Objective Vitals I&O Vital Signs Date Time Temp Pulse Resp B/P (MAP) Pulse Ox O2 Delivery O2 Flow Rate FiO2 08/17/17 10:03 Nasal Cannula 3.00 100 08/17/17 08:06 97.3 43 18 118/66 (83) 91 08/17/17 04:00 96.6 40 18 127/58 (81) 96 08/17/17 00:00 97.3 48 18 113/59 (77) 95 08/16/17 20:12 42 08/16/17 20:00 97.4 49 18 111/59 (76) 96 08/16/17 20:00 Nasal Cannula 3.00 I/O 08/16/17 08/16/17 08/16/17 08/17/17 08/17/17 08/17/17 07:00 15:00 23:00 07:00 15:00 23:00 Intake Total 1874 ml 600 ml Output Total 0 ml 3000 ml Balance 1874 ml 600 ml -3000 ml Intake Oral 360 ml 600 ml IV Total 1514 ml Output Urine Total 0 ml Hemodialysis 3000 ml # Voids 0 # Bowel Movements 0 1 Laboratory Date/Time Source Procedure Growth Status 08/12/17 09:40 Blood Peripheral Aerobic Blood Culture - Final NO GROWTH IN 5 DAYS Complete 08/12/17 09:40 Blood Peripheral Anaerobic Blood Culture - Final NO GROWTH IN 5 DAYS Complete 08/12/17 14:43 Catheter Tip Wound Culture - Final Complete Imaging Last Impressions Chest X-Ray 08/12/17 0910 Signed Impressions: Service Date/Time: Saturday, August 12, 2017 09:25 - CONCLUSION: 1. Stable scattered patchiness bilaterally. Chon Nye MD Central Venous Line 08/12/17 0000 Signed Impressions: Service Date/Time: Saturday, August 12, 2017 00:00 - CONCLUSION: Uncomplicated Permcath removal. Shmuel Beckett MD Physical Exam HEENT: Normocephalic; atraumatic; no jaundice. NECK: Neck is supple. CHEST: CTA CARDIAC: SB ABDOMEN: Soft, nondistended, nontender; bowel sounds are present in all four quadrants. EXTREMITIES: Bilateral BKA SKIN: Normal; no rash; no jaundice. 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 (Mely Maynard) Assessment and Plan Plan ASSESSMENT - Upper GIB. Had guaiac positive stools, anemia on admission (HH 8.8/27.2). S/ P EGD (08/13/17)----> 1. Bleeding Esophageal varices, with active bleeding identified, 6 bands applied to control the bleeding 2.There was gastritis in the entire examined stomach 3. Multiple large erosions were found in the duodenal bulb and 2nd part duodenum. Protonix/ Octreotide Gtt. Octreotide. Protonix 40mg IV BID. no further bleeding - Anemia, acute blood loss. no recent HH - Thrombocytopenia. Plt. 104,000. - Esophageal Varices. S/P band ligation. No active bleeding. PPI, Octreotide. - Duodenal bulb ulcers, gastritis. PPI. - Elevated LFTs, Liver cirrhosis- pt has varices, thrombocytopenia, hypoalbuminemia. Liver workup. No ETOH use- did drink ETOH 30 years ago. (+) Lupus. liver w/u so far unremarkable. ceruloplasmin and AMA still pending. - ESRD, HD M-W-F. - Sepsis. BCx no growth 2 days. Wound cx (Cath tip) > 15 CFU yeast species, > 15 Corynebacterium. Abx per attending. - Lupus, CAD, PAD, per attending. - Hx hypercoagulable state with hx DVT/PE, on chronic anticoagulation. PLAN: - 2 gram Sodium renal diet - Cont. Octreotide Gtt x 72 hours - Cont. Protonix 40mg IV BID - await AMA, ceruloplasmin - Monitor HH - Repeat EGD in 2-4 weeks - Supportive care - f/u with GI as outpatient 1 week - Further recommendations to follow based on results of above. - Patient seen and examined by Dr. Rodriguez and myself and this note is written on his behalf. (Mely Maynard) Physician Comments Seen and examined. Plan as above. further recommendations to follow. (Chon Rodriguez MD) Mely Maynard Aug 17, 2017 16:52 Chon Rodriguez MD Aug 17, 2017 17:37
--- NOTE | 2017-08-17 18:08 | HHI.NPPN ---
Subjective History of Present Illness This patient is a 46-year-old male with a history of end-stage renal disease, SLE, hypertension, peripheral vascular disease as well as secondary hyperparathyroidism of renal disease. Unfortunately the patient has had multiple dialysis accesses including dialysis shunts and dialysis catheters in the past complicated by access failure as well as infection. Patient now has very limited options for dialysis access. We were relying on a left femoral dialysis line for access. Fortunately vessel surgery was able to create a left arm AV dialysis fistula back in February. We have used the access for dialysis 3 and the patient was scheduled to have his PermCath removed this Tuesday however presented to the dialysis facility with lethargy and pyrexia. Sepsis imost likely recurrence of line infection most likely consideration. Since admission however noted to have GI bleed and upper endoscopy revealed severe gastritis, and duodenum and mention of large bleeding esophageal varices Interval History Pt feeling OK today. No new complaints. Anxious to go home (Gladis Cole) Objective Data Data 08/17/17 08/18/17 19:00 07:00 Output Total 3000 ml Balance -3000 ml Hemodialysis 3000 ml Vital Signs Date Time Temp Pulse Resp B/P (MAP) Pulse Ox O2 Delivery O2 Flow Rate FiO2 08/17/17 16:06 97.4 50 18 108/58 (75) 92 08/17/17 10:03 Nasal Cannula 3.00 100 08/17/17 08:06 97.3 43 18 118/66 (83) 91 08/17/17 04:00 96.6 40 18 127/58 (81) 96 08/17/17 00:00 97.3 48 18 113/59 (77) 95 08/16/17 20:12 42 08/16/17 20:00 97.4 49 18 111/59 (76) 96 08/16/17 20:00 Nasal Cannula 3.00 (Gladis Cole) -: 08/14/17 0400 08/15/17 0430 Imaging Last Impressions Chest X-Ray 08/12/17 0910 Signed Impressions: Service Date/Time: Saturday, August 12, 2017 09:25 - CONCLUSION: 1. Stable scattered patchiness bilaterally. Chon Nye MD Central Venous Line 08/12/17 0000 Signed Impressions: Service Date/Time: Saturday, August 12, 2017 00:00 - CONCLUSION: Uncomplicated Permcath removal. Shmuel Beckett MD Additional Information 08/17/17 08/17/17 08/18/17 15:00 23:00 07:00 Output Total 3000 ml Balance -3000 ml Hemodialysis 3000 ml Medication Review Current Medications Medications (Trade) Dose Ordered Sig/Nohelia Route Start Time Stop Time Status Last Admin (NS Flush) 2 ml UNSCH PRN IV FLUSH 08/12/17 11:45 (NS Flush) 2 ml BID IV FLUSH 08/12/17 21:00 08/17/17 07:47 (Tylenol) 650 mg Q6H PRN PO 08/12/17 11:45 08/12/17 23:53 (Zofran Inj) 4 mg Q6H PRN IV PUSH 08/12/17 11:45 08/15/17 13:52 (Duoneb Neb) 1 ampule Q6HR NEB INH 08/12/17 16:00 08/16/17 16:23 (Albuterol Neb) 2.5 mg Q2HR NEB PRN INH 08/12/17 11:45 Miscellaneous Information 1 Q361D XX 08/12/17 11:45 (Angelika-Colace) 1 tab BID PO 08/12/17 21:00 08/17/17 13:49 (Milk Of Magnesia Liq) 30 ml Q12H PRN PO 08/12/17 11:45 (Senokot) 17.2 mg Q12H PRN PO 08/12/17 11:45 (Dulcolax Supp) 10 mg DAILY PRN RECTAL 08/12/17 11:45 (Lactulose Liq) 30 ml DAILY PRN PO 08/12/17 11:45 (Proamatine) 10 mg TID@07,12,17 PO 08/12/17 12:00 08/17/17 16:19 (Xanax) 1 mg Q8H PRN PO 08/12/17 12:00 08/12/17 23:53 Phenylephrine HCl 160 mg/Dextrose 500 ml @ 7.5 mls/hr TITRATE PRN IV 08/12/17 12:00 08/12/17 13:26 (Brethine Inj) 1 mg UNSCH PRN SQ 08/12/17 12:00 08/13/17 03:13 Dextrose/Sodium Chloride 1,000 ml @ 30 mls/hr Q24H IV 08/12/17 12:30 08/16/17 00:27 (D50w (Vial) Inj) 50 ml UNSCH PRN IV PUSH 08/12/17 12:30 (Glucagon Inj) 1 mg UNSCH PRN OTHER 08/12/17 12:30 (NovoLIN R SUPPLEMENTAL SCALE) 1 ACHS SLIDING SCALE SQ 08/12/17 17:00 08/14/17 12:56 (Protonix Inj) 40 mg BID IV PUSH 08/12/17 21:00 08/17/17 13:48 Vancomycin HCl 1000 mg/Sodium Chloride 250 ml @ 250 mls/hr WITH DIALYSIS IV 08/15/17 14:00 08/17/17 12:46 (Dilaudid Pf Inj) 0.5 mg Q2H PRN IV 08/13/17 03:30 08/13/17 04:52 Sodium Chloride 1,000 ml @ 0 mls/hr Q0M PRN OTHER 08/13/17 13:53 08/15/17 12:27 Sodium Chloride 1,000 ml @ 200 mls/hr Q5H PRN IV 08/13/17 13:53 Sodium Chloride 1,000 ml @ 0 mls/hr Q0M PRN OTHER 08/13/17 13:53 (Mannitol Inj) 12.5 gm UNSCH PRN IV 08/13/17 14:00 Albumin Human 100 ml @ 60 mls/hr UNSCH PRN IV 08/13/17 14:00 (NS Flush) 5 ml UNSCH PRN IV FLUSH 08/13/17 14:00 (Zofran Inj) 4 mg UNSCH PRN IV PUSH 08/13/17 14:00 (Tylenol) 650 mg UNSCH PRN PO 08/13/17 14:00 (Benadryl) 25 mg UNSCH PRN PO 08/13/17 14:00 (Nitrostat Sl) 0.4 mg UNSCH PRN SL 08/13/17 14:00 (Catapres) 0.1 mg UNSCH PRN PO 08/13/17 14:00 (Gelfoam 12 Mm/7 Mm Top) 1 foam UNSCH PRN TOP 08/13/17 14:00 08/15/17 12:26 Octreotide Acetate 500 mcg/ Sodium Chloride 500 ml @ 25 mls/hr Q20H IV 08/14/17 14:00 08/19/17 13:59 08/17/17 03:12 (Phoslo) 1,334 mg TID PO 08/15/17 13:00 08/17/17 17:32 (Epogen Inj) 10,000 units UNSCH PRN IV PUSH 08/16/17 10:15 08/17/17 12:46 (Diflucan) 100 mg DAILY PO 08/16/17 12:00 08/17/17 13:48 (SoluCORTEF INJ) 50 mg Q12HR IV PUSH 08/17/17 21:00 (Gladis Cole) Physical Exam General Appearance: Well Developed, Well Nourished, No Acute Distress, Comfortable (Gladis Cole) Eyes Eye Exam: Sclera White (Gladis oCle) Pulmonary Resp Exam: Clear Bilaterally, Breath Sounds Equal, No Distress (Gladis Cole) Cardiology CV Exam: Regular, Normal Sinus Rhythm (Gladis Cole) Gastrointestinal/Abdomen GI Exam: Soft, Non-Tender (Gladis Cole) Integumentary Skin Exam: Clear, Warm (Gladis Cole) Extremeties Extremities Exam: No Edema (Gladis Cole) Neurologic Neuro Exam: Alert, Awake, Speech Clear, Moving All Extremities, Sedated (Gladis Cole) Psychiatric Psych Exam: Appropriate Responses (Gladis Cole) Assessment/Plan Discussed Condition With: Patient Problem List: (1) End-stage renal disease on hemodialysis ICD Codes: N18.6 - End stage renal disease; Z99.2 - Dependence on renal dialysis Status: Chronic Plan: Continue HD MWF as per outpatient schedule L femoral Perm Cath has been removed and no reported issues with cannulation of RUE AVF. Patient appears clinically stable today from a renal point of view. Discharge planning per primary care physician and gastroenterology. Patient clear for discharge from a renal point of view with outpatient follow- up at the dialysis facility. Avoid gadolinium. Medication should be adjusted for his end-stage renal disease when indicated. (2) Complications, dialysis, catheter, mechanical ICD Codes: T82.49XA - Other complication of vascular dialysis catheter, initial encounter Status: Acute Plan: Hemodialysis PermCath removed. AV dialysis fistula appears to be working well. Blood cultures negative 48 hours but will continue to monitor. Antibiotics as per infectious disease. It is possible his presentation was primarily related to GI bleed. (3) Anemia of renal disease ICD Codes: D63.1 - Anemia in chronic kidney disease Status: Chronic Plan: Epogen increased. I will continue Aranesp as an outpatient for management of anemia. (4) Esophageal varices determined by endoscopy ICD Codes: I85.00 - Esophageal varices without bleeding Plan: As far as I'm aware the patient has no known history of cirrhosis. Previous hepatitis profile negative. 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 (Gladis Cole) Plan The exam, history, and the medical decision-making described in the above note were completed with the assistance of the PA-C. I reviewed and agree with the findings presented. (Clarence Merlos MD) Gladis Cole Aug 17, 2017 18:08 Clarence Merlos MD Aug 20, 2017 15:23
[2017-08-17] MEDS: HYDROCORTISONE SOD SUCCINATE 100 MG VIAL IV PUSH SCH (21:24)
[2017-08-17] MEDS: DEXT 5%-NACL 0.45% 1000 ML INJ 1,000 ML IV SCH (21:25)
[2017-08-17 21:39] LABS: AUTOMATED NEUTROPHIL # 8.6 TH/MM3 (1.8-7.7); BASOPHIL % 0.4 % (0.0-2.0); EOSINOPHIL % 0.5 % (0.0-4.0); HEMATOCRIT 32.9 % (39.0-51.0); LYMPH % 6.8 % (9.0-44.0); LYMPHOCYTE # 0.7 TH/MM3 (1.0-4.8); MEAN CELL VOLUME 100.1 FL (80.0-100.0); MEAN CORPUSCULAR HEMOGLOBIN 31.2 PG (27.0-34.0); MEAN CORPUSCULAR HGB CONC 31.2 % (32.0-36.0); MONO % 10.9 % (0.0-8.0); NEUT % 81.4 % (16.0-70.0); PLATELET COUNT 200 TH/MM3 (150-450); RED BLOOD COUNT 3.28 MIL/MM3 (4.50-5.90); RED CELL DISTRIBUTION WIDTH 20.9 % (11.6-17.2); WHITE BLOOD COUNT 10.6 TH/MM3 (4.0-11.0)
[2017-08-17 21:46] LABS: HEMO FLAGS AUTO DIFF
[2017-08-17 22:41] LABS: BANDS 1 % (0-6); CORRECTED NUCLEATED RBC 3 /100 WBC (0-0); METAMYELOCYTES 1 % (0-1); MYELOCYTES 3 % (0-0); NEUTROPHIL # MANUAL DIFF 9.4 TH/MM3 (1.8-7.7); POLYS (SEG NEUTROPHILS) 84 % (16-70); WBC DIFF SAMPLE 100
[2017-08-17 22:42] LABS: PLATELET ESTIMATE SMEAR NORMAL (NORMAL); PLATELET MORPHOLOGY NORMAL (NORMAL); SCAN/DIFF FINAL DIFF MANUAL
[2017-08-17 22:43] LABS: OVALOCYTES 1+ (NORMAL); TARGET CELLS 1+ (NORMAL)
[2017-08-18] VITALS (10 sets, daily range): BP systolic 97–120; BP diastolic 54–63; PULSE 44–59; RESP 16–18; TEMP 97.2–97.9; O2SAT 92–97
[2017-08-18] MEDS: RESP: ALBUTEROL 2.5 MG/IPRATROPIUM 0.5 MG NEB (SCH) INH ×4 (04:00→20:05)
[2017-08-18] MEDS: MIDODRINE 5 MG TAB PO SCH ×3 (05:32→17:58)
[2017-08-18] MEDS: INSULIN NovoLIN REGULAR SUPPLEMENTAL SCALE SQ SCH ×4 (08:00→21:00)
[2017-08-18 08:31] LABS: AUTOMATED NEUTROPHIL # 7.3 TH/MM3 (1.8-7.7); BASOPHIL # 0.1 TH/MM3 (0-0.2); BASOPHIL % 0.9 % (0.0-2.0); EOSINOPHIL # 0.1 TH/MM3 (0-0.4); EOSINOPHIL % 0.9 % (0.0-4.0); HEMATOCRIT 33.3 % (39.0-51.0); LYMPHOCYTE # 1.4 TH/MM3 (1.0-4.8); MEAN CELL VOLUME 101.1 FL (80.0-100.0); MEAN CORPUSCULAR HEMOGLOBIN 32.1 PG (27.0-34.0); MEAN CORPUSCULAR HGB CONC 31.8 % (32.0-36.0); MONO % 10.8 % (0.0-8.0); NEUT % 73.4 % (16.0-70.0); PLATELET COUNT 225 TH/MM3 (150-450); RED BLOOD COUNT 3.29 MIL/MM3 (4.50-5.90); RED CELL DISTRIBUTION WIDTH 22.2 % (11.6-17.2)
[2017-08-18 08:38] LABS: HEMO FLAGS AUTO DIFF
[2017-08-18 08:41] LABS: BICARBONATE 28.1 MEQ/L (21.0-32.0)
[2017-08-18] MEDS: FLUCONAZOLE 100 MG TAB PO SCH (09:07)
[2017-08-18] MEDS: DOCUSATE SODIUM 50 MG/SENNA 8.6 MG TAB PO SCH ×2 (09:07→21:00)
[2017-08-18] MEDS: SODIUM CHLORIDE 0.9% FLUSH 10 ML FLUSH IV FLUSH SCH ×2 (09:07→21:00)
[2017-08-18] MEDS: HYDROCORTISONE SOD SUCCINATE 100 MG VIAL IV PUSH SCH ×2 (09:07→21:00)
[2017-08-18] MEDS: CALCIUM ACETATE 667 MG CAP PO SCH ×3 (09:07→17:58)
[2017-08-18] MEDS: PANTOPRAZOLE SODIUM 40 MG VIAL IV PUSH SCH (09:07)
[2017-08-18 09:30] LABS: POLYCHROMASIA 2.5 % (0.0-1.9)
[2017-08-18 09:31] LABS: OVALOCYTES 1+ (NORMAL); SCAN/DIFF AUTO DIFF CONFIRMED
--- NOTE | 2017-08-18 12:42 | HHI.PR ---
Subjective Remarks in no distress. resting comfortably. no new complaints. hoping that he could go home soon. Objective Vitals Vital Signs Date Time Temp Pulse Resp B/P (MAP) Pulse Ox O2 Delivery O2 Flow Rate FiO2 08/18/17 09:41 93 Nasal Cannula 3.00 08/18/17 08:00 97.9 44 18 110/60 (77) 92 08/18/17 04:00 97.3 45 16 120/63 (82) 93 08/18/17 04:00 Room Air 08/18/17 00:00 Room Air 08/18/17 00:00 97.6 47 18 103/59 (74) 94 08/17/17 22:30 93 08/17/17 20:51 45 08/17/17 20:43 94 Nasal Cannula 3.00 08/17/17 20:00 Room Air 08/17/17 20:00 97.2 53 18 110/56 (74) 94 08/17/17 16:06 97.4 50 18 108/58 (75) 92 I/O 08/17/17 08/17/17 08/17/17 08/18/17 08/18/17 08/18/17 07:00 15:00 23:00 07:00 15:00 23:00 Intake Total 762 ml 1010 ml Output Total 3000 ml 0 ml Balance -3000 ml 762 ml 1010 ml Intake Oral 480 ml 840 ml IV Total 282 ml 170 ml Output Urine Total 0 ml Hemodialysis 3000 ml # Voids 1 # Bowel Movements 1 0 Result Diagram: 08/18/17 0750 08/18/17 0750 Imaging Last Impressions Chest X-Ray 08/12/17 0910 Signed Impressions: Service Date/Time: Saturday, August 12, 2017 09:25 - CONCLUSION: 1. Stable scattered patchiness bilaterally. Chon Nye MD Central Venous Line 08/12/17 0000 Signed Impressions: Service Date/Time: Saturday, August 12, 2017 00:00 - CONCLUSION: Uncomplicated Permcath removal. Shmuel Beckett MD Objective Remarks GENERAL: This is a well-nourished, well-developed patient, in no apparent distress. CARDIOVASCULAR: Regular rate and regular rhythm without murmurs, gallops, or rubs. RESPIRATORY: Clear to auscultation. Breath sounds equal bilaterally. No wheezes , rales, or rhonchi. GASTROINTESTINAL: Abdomen soft, non-tender, nondistended. Normal, active bowel sounds MUSCULOSKELETAL: s/o bilateral BKA NEURO: Alert & Oriented x4 to person, place, time, situation. Moves all ext x4 Procedures EGD PROCEDURE REPORT EXAM DATE: 08/13/2017 INDICATIONS: The patient is a 46 yr old male here for an EGD due to melena PROCEDURE PERFORMED: EGD w/ band ligation of varices MEDICATIONS: None and Per Anesthesia. TOPICAL ANESTHETIC: none CONSENT: The patient understands the risks and benefits of the procedure and understands that these risks include, but are not limited to: sedation, allergic reaction, infection, perforation and/or bleeding. Alternative means of evaluation and treatment include, among others: physical exam, x-rays, and/or surgical intervention. The patient elects to proceed with this endoscopic procedure. medical equipment was checked for proper function. Hand hygiene and appropriate measures for infection prevention was taken. After the risks, benefits and alternatives of the procedure were thoroughly explained, Informed consent was verified, confirmed and timeout was successfully executed by the treatment team. The patient was anesthetized with topical anesthesia and the Pentax [id number] endoscope was introduced through the mouth and advanced to the second portion of the duodenum. Retroflexion was performed and was normal The gastroscope was then slowly withdrawn and removed. ESOPHAGUS: There were large varices in the middle third of the esophagus and lower third esophagus. The varices were bleeding intermittently with spurting spot , 6 bands applied and bleeding controlled. STOMACH: There was severe and erosive gastritis in the entire examined stomach. DUODENUM: Multiple large shallow erosions were found in the duodenal bulb and 2nd part duodenum. ADVERSE EVENTS: There were no complications. IMPRESSIONS: 1. Bleeding Esophageal varices, with active bleeding identified, 6 bands applied to controll the bleeding 2. There was gastritis in the entire examined stomach 3. Multiple large erosions were found in the duodenal bulb and 2nd part duodenum RECOMMENDATIONS: Continue PPI , start Octreotide, PATIENT CONDITION: stable DISPOSITION: Observation REPEAT EXAM: Return 4 weeks EGD Chon Rodriguez MD 08/13/2017 1:38 PM Medications and IVs Current Medications Dextrose (D50w (Vial) Inj) 50 ml STK-MED ONCE .ROUTE ; Start 08/12/17 at 09:09; Stop 08/12/17 at 09:10; Status DC Acetaminophen (Tylenol) 650 mg ONCE ONCE PO ; Start 08/12/17 at 09:15; Stop at 09:16; Status DC Vancomycin HCl 1000 mg/Sodium Chloride 250 ml @ 250 mls/hr ONCE STAT IV Last administered on 08/12/17 10:32; Start 08/12/17 at 09:10; Stop 08/12/17 at 10:09 ; Status DC Piperacillin Sod/ Tazobactam Sod 50 ml @ 100 mls/hr ONCE ONCE IV Last administered on 08/12/17 09:48; Start 08/12/17 at 09:15; Stop 08/12/17 at 09:44 ; Status DC Dextrose (D50w (Vial) Inj) 50 ml NOW ONCE IV PUSH Last administered on 10:56; Start 08/12/17 at 10:45; Stop 08/12/17 at 10:46; Status DC Acetaminophen (Tylenol Supp) 650 mg NOW ONCE RECTAL Last administered on 10:56; Start 08/12/17 at 10:45; Stop 08/12/17 at 10:46; Status DC Sodium Chloride 250 ml @ 15 mls/hr ONCE ONCE IV Last administered on 15:23; Start 08/12/17 at 11:30; Stop 08/13/17 at 04:09; Status DC Sodium Chloride 1,000 ml @ 84 mls/hr [id number] IV Last administered on 12:10; Start 08/12/17 at 11:45; Stop 08/12/17 at 12:20; Status DC Sodium Chloride (NS Flush) 2 ml UNSCH PRN IV FLUSH FLUSH AFTER USING IV ACCESS ; Start 08/12/17 at 11:45 Sodium Chloride (NS Flush) 2 ml BID IV FLUSH Last administered on 08/18/17 09: 07; Start 08/12/17 at 21:00 Acetaminophen (Tylenol) 650 mg Q6H PRN PO PAIN 1-5 AND/OR FEVER >101F Last administered on 08/12/17 23:53; Start 08/12/17 at 11:45 Acetaminophen/ Hydrocodone Bitart ([place] 5-325 Mg) 1 tab Q4H PRN PO PAIN SCALE 1 TO 5; Start 08/12/17 at 11:45; Stop 08/12/17 at 11:51; Status DC Morphine Sulfate (Morphine Inj) 2 mg Q2H PRN IV PUSH PAIN SCALE 6 TO 10; Start 08/12/17 at 11:45; Stop 08/12/17 at 11:51; Status DC Pantoprazole Sodium (Protonix Inj) 40 mg DAILY IV PUSH ; Start 08/13/17 at 09:00 ; Stop 08/13/17 at 09:00; Status DC Ondansetron HCl (Zofran Inj) 4 mg Q6H PRN IV PUSH NAUSEA OR VOMITING Last administered on 08/15/17 13:52; Start 08/12/17 at 11:45 Albuterol/ Ipratropium (Duoneb Neb) 1 ampule Q6HR NEB INH Last administered on 08/16/17 16:23; Start 08/12/17 at 16:00 Albuterol Sulfate (Albuterol Neb) 2.5 mg Q2HR NEB PRN INH SOB/WHEEZING; Start 08/12/17 at 11:45 Miscellaneous Information 1 Q361D XX ; Start 08/12/17 at 11:45 Senna/Docusate Sodium (Angelika-Colace) 1 tab BID PO Last administered on 09:07; Start 08/12/17 at 21:00 Magnesium Hydroxide (Milk Of Magnesia Liq) 30 ml Q12H PRN PO Mild constipation ; Start 08/12/17 at 11:45 Sennosides (Senokot) 17.2 mg Q12H PRN PO Moderate constipation; Start 08/12/17 at 11:45 Bisacodyl (Dulcolax Supp) 10 mg DAILY PRN RECTAL SEVERE CONSITIPATION; Start 08/12/17 at 11:45 Lactulose (Lactulose Liq) 30 ml DAILY PRN PO SEVERE CONSITIPATION; Start at 11:45 Midodrine (Proamatine) 10 mg TID@,12,17 PO Last administered on 08/18/17 05: 32; Start 08/12/17 at 12:00 Hydrocortisone Sodium Succinate (SoluCORTEF INJ) 100 mg Q8HR IV PUSH Last administered on 08/16/17 06:17; Start 08/12/17 at 14:00; Stop 08/16/17 at 10:11 ; Status DC Alprazolam (Xanax) 1 mg Q8H PRN PO ANXIETY Last administered on 08/12/17 23:53 ; Start 08/12/17 at 12:00 Fluconazole (Diflucan) 400 mg DAILY PO ; Start 08/13/17 at 09:00; Stop 08/13/17 at 09:00; Status DC Sevelamer Carbonate (Renvela) 1,600 mg TID PO ; Start 08/12/17 at 13:00; Stop 08/15/17 at 11:59; Status DC Warfarin Sodium (Coumadin) 4 mg DAILY PO ; Start 08/13/17 at 09:00; Stop at 09:00; Status DC Warfarin Sodium (Coumadin) 3 mg DAILY@1600 PO ; Start 08/12/17 at 16:00; Stop 08/12/17 at 16:00; Status DC Phenylephrine HCl 160 mg/Dextrose 500 ml @ 7.5 mls/hr TITRATE PRN IV Blood pressure management Last administered on 08/12/17 13:26; Start 08/12/17 at 12: 00 Terbutaline Sulfate (Brethine Inj) 1 mg UNSCH PRN SQ For Extravasation Last administered on 08/13/17 03:13; Start 08/12/17 at 12:00 Piperacillin Sod/ Tazobactam Sod 50 ml @ 100 mls/hr Q8H IV Last administered on 08/16/17 10:11; Start 08/12/17 at 18:00; Stop 08/16/17 at 11:15; Status DC Pharmacy Profile Note 0 ml @ 0 mls/hr UNSCH OTHER ; Start 08/12/17 at 12:00; Stop 08/12/17 at 17:08; Status DC Dextrose/Sodium Chloride 1,000 ml @ 30 mls/hr Q24H IV Last administered on 21:25; Start 08/12/17 at 12:30 Dextrose (D50w (Vial) Inj) 50 ml UNSCH PRN IV PUSH HYPOGLYCEMIA-SEE COMMENTS; Start 08/12/17 at 12:30 Glucagon (Glucagon Inj) 1 mg UNSCH PRN OTHER HYPOGLYCEMIA-SEE COMMENTS; Start 08/12/17 at 12:30 Insulin Human Regular (NovoLIN R SUPPLEMENTAL SCALE) 1 ACHS SLIDING SCALE SQ Last administered on 08/14/17 12:56; Start 08/12/17 at 17:00 Pantoprazole Sodium (Protonix Inj) 40 mg BID IV PUSH Last administered on 09:07; Start 08/12/17 at 21:00 Albumin Human 50 ml @ 60 mls/hr ONCE ONCE IV Last administered on 08/12/17 16 :44; Start 08/12/17 at 14:00; Stop 08/12/17 at 14:49; Status DC Epoetin Eddie (Epogen Inj) 10,000 units ONCE ONCE SQ Last administered on 15:34; Start 08/12/17 at 14:00; Stop 08/12/17 at 14:01; Status DC Lidocaine/ Epinephrine (Xylocaine-Epi 1%-1:100,000 Inj) 20 ml STK-MED ONCE .ROUTE Last administered on 08/12/17 14:40; Start 08/12/17 at 13:37; Stop 08/12/17 at 13:38; Status DC Sodium Phosphate 15 mmol/Sodium Chloride 155 ml @ 38.75 mls/ hr ONCE ONCE IV Last administered on 08/12/17 18:51; Start 08/12/17 at 16:00; Stop 08/12/17 at 19:59; Status DC Vancomycin HCl 1000 mg/Sodium Chloride 250 ml @ 250 mls/hr WITH DIALYSIS IV Last administered on 08/17/17 12:46; Start 08/15/17 at 14:00 Fluconazole/ Sodium Chloride 100 ml @ 100 mls/hr Q24H IV Last administered on 08/15/17 21:51; Start 08/12/17 at 20:00; Stop 08/16/17 at 11:15; Status DC Hydromorphone HCl (Dilaudid Pf Inj) 0.5 mg Q4H PRN IV PAIN >5/10 Last administered on 08/13/17 03:10; Start 08/13/17 at 00:30; Stop 08/13/17 at 03:23 ; Status DC Hydromorphone HCl (Dilaudid Pf Inj) 0.5 mg Q2H PRN IV PAIN >5/10 Last administered on 08/13/17 04:52; Start 08/13/17 at 03:30 Fentanyl Citrate (fentaNYL INJ) 100 mcg UNSCH X1 PRN IV PUSH SEE DOSE INSTRUCTIONS; Start 08/13/17 at 03:30; Stop 08/14/17 at 03:29; Status DC Octreotide Acetate (SandoSTATIN INJ) 250 mcg Q8HR IV PUSH ; Start 08/13/17 at 14 :00; Stop 08/13/17 at 19:59; Status DC Sodium Chloride 1,000 ml @ 0 mls/hr Q0M PRN OTHER For Prime & Rinse Back Last administered on 08/15/17 12:27; Start 08/13/17 at 13:53 Sodium Chloride 1,000 ml @ 200 mls/hr Q5H PRN IV WITH DIALYSIS; Start 08/13/17 at 13:53 Sodium Chloride 1,000 ml @ 0 mls/hr Q0M PRN OTHER WITH DIALYSIS; Start at 13:53 Mannitol (Mannitol Inj) 12.5 gm UNSCH PRN IV WITH DIALYSIS; Start 08/13/17 at 14:00 Albumin Human 100 ml @ 60 mls/hr UNSCH PRN IV WITH DIALYSIS; Start 08/13/17 at 14:00 Sodium Chloride (NS Flush) 5 ml UNSCH PRN IV FLUSH WITH DIALYSIS; Start at 14:00 Ondansetron HCl (Zofran Inj) 4 mg UNSCH PRN IV PUSH WITH DIALYSIS; Start at 14:00 Acetaminophen (Tylenol) 650 mg UNSCH PRN PO for headach, pain, temp > 101F; Start 08/13/17 at 14:00 Diphenhydramine HCl (Benadryl) 25 mg UNSCH PRN PO for hives/itching/anaphylaxis ; Start 08/13/17 at 14:00 Nitroglycerin (Nitrostat Sl) 0.4 mg UNSCH PRN SL CHEST PAIN; Start 08/13/17 at 14:00 Clonidine (Catapres) 0.1 mg UNSCH PRN PO for BP > 180/100 X 2 readings; Start 08/13/17 at 14:00 Epoetin Eddie (Epogen Inj) 8,000 units UNSCH PRN IV PUSH WITH DIALYSIS Last administered on 08/15/17 12:26; Start 08/13/17 at 14:00; Stop 08/16/17 at 10:14 ; Status DC Gelatin (Gelfoam 12 Mm/7 Mm Top) 1 foam UNSCH PRN TOP SEE LABEL COMMENTS Last administered on 08/15/17 12:26; Start 08/13/17 at 14:00 Miscellaneous Information ALL NURSING DEPARTME... UNSCH PRN .XX SEE LABEL COMMENTS; Start 08/13/17 at 15:00; Stop 08/14/17 at 14:59; Status DC Octreotide Acetate (SandoSTATIN INJ) 250 mcg Q8HR IV PUSH Last administered on 08/13/17 23:37; Start 08/13/17 at 22:00; Stop 08/14/17 at 10:22; Status DC Octreotide Acetate (SandoSTATIN INJ) 250 mcg Q4H IV ; Start 08/14/17 at 13:00; Status Cancel Octreotide Acetate 500 mcg/ Sodium Chloride 500 ml @ 25 mls/hr Q20H IV Last administered on 08/17/17 23:11; Start 08/14/17 at 14:00; Stop 08/19/17 at 13: 59 Calcium Acetate (Phoslo) 1,334 mg TID PO Last administered on 08/18/17 09:07; Start 08/15/17 at 13:00 Hydrocortisone Sodium Succinate (SoluCORTEF INJ) 100 mg Q12HR IV PUSH Last administered on 08/16/17 21:02; Start 08/16/17 at 21:00; Stop 08/17/17 at 12:57 ; Status DC Epoetin Eddie (Epogen Inj) 10,000 units UNSCH PRN IV PUSH WITH DIALYSIS Last administered on 08/17/17 12:46; Start 08/16/17 at 10:15 Fluconazole (Diflucan) 100 mg DAILY PO Last administered on 08/18/17 09:07; Start 08/16/17 at 12:00 Hydrocortisone Sodium Succinate (SoluCORTEF INJ) 50 mg Q12HR IV PUSH Last administered on 08/18/17 09:07; Start 08/17/17 at 21:00 A/P Problem List: (1) Elevated lactic acid level ICD Code: E87.2 - Acidosis Status: Acute (2) HYPOTENSION OF HEMODIALYSIS ICD Code: I95.3 - HYPOTENSION OF HEMODIALYSIS Status: Acute (3) Fever ICD Code: R50.9 - Fever, unspecified Status: Acute (4) ESRD (end stage renal disease) on dialysis ICD Code: N18.6 - End stage renal disease; Z99.2 - Dependence on renal dialysis Status: Chronic (5) Lupus (systemic lupus erythematosus) ICD Code: M32.9 - Systemic lupus erythematosus, unspecified (6) Hypoglycemia ICD Code: E16.2 - Hypoglycemia, unspecified (7) Anemia ICD Code: D64.9 - Anemia, unspecified Status: Acute (8) Chronic anticoagulation ICD Code: Z79.01 - prison (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 of anticoagulants (9) H/O hypercoagulable state ICD Code: Z86.2 - Personal history of diseases of the blood and blood-forming organs and certain disorders involving the immune mechanism (10) Elevated glucose ICD Code: R73.09 - Other abnormal glucose (11) Hypoalbuminemia ICD Code: E88.09 - Other disorders of plasma-protein metabolism, not elsewhere classified (12) Thrombocytopenia ICD Code: D69.6 - Thrombocytopenia, unspecified (13) Elevated AST (SGOT) ICD Code: R74.0 - Nonspecific elevation of levels of transaminase and lactic acid dehydrogenase [LDH] (14) Macrocytic anemia ICD Code: D53.9 - Nutritional anemia, unspecified (15) Severe sepsis ICD Code: A41.9 - Sepsis, unspecified organism; R65.20 - Severe sepsis without septic shock (16) History of DVT (deep vein thrombosis) ICD Code: Z86.718 - Personal history of other venous thrombosis and embolism (17) History of pulmonary embolism ICD Code: Z86.711 - Personal history of pulmonary embolism (18) Gastroesophageal reflux disease ICD Code: K21.9 - Gastro-esophageal reflux disease without esophagitis (19) Coronary artery disease ICD Code: I25.10 - Atherosclerotic heart disease of [place] coronary artery without angina pectoris (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 Currently on alprazolam 1 mg every 8 hours when necessary anxiety Acetaminophen 650 mg every 6 hours when necessary fever Noted allergy to morphine sulfate Severe sepsis - improving. Lactic acidosis Coronary artery disease status post stent PAD Echocardiogram 04/25 revealed EF 55-60%. Mild left ventricular hypertrophy. Trace TR. Started on midodrine 10 mg 3 times a day . continue to taper down IV steroid. Asthma? Chronic bibasilar opacification Nasal cannula to maintain saturations greater than or equal to 92% Incentive spirometry while awake continue neb treatment. Elevated AST Gastroesophageal reflux disease Bleeding Esophageal varices, with active bleeding- s/p banding gastritis Multiple large erosions were found in the duodenal bulb and 2nd part duodenum diet per GI- continue protonix and Octreotide GI following. recent hydrocortisone use Started on stress dose hydrocortisone 100 mill grams IV every 8 hours. will continue to taper down. Fludrocortisone Acetate 0.1 Mg Tab 0.1 Mg PO WITH DIALYSIS currently being held in light of hydrocortisone use above End-stage renal disease on chronic intermittent hemodialysis Tuesday/Tuesday and Tuesday secondary to lupus nephritis Hyperphosphatemia Consulted nephrology - Dr. Merlos for hemodialysis Continue sevelamer 1600 mg 3 times a day for hyperphosphatemia Macrocytic anemia Anemia of chronic kidney disease and acute blood loss Thrombocytopenia Hypercoagulable state On chronic warfarin therapy. Last evaluation in [address] O[place]. At that time workup negative except for low protein S. Did not recommend repeating. Recommended lifelong anticoagulation due to history of PE/ DVT/SVC thrombus etc. no anticoagulation because of GI bleed Transfuse as clinically indicated to maintain hemoglobin greater than 7 trend h&h Severe sepsis Recent staph epi/coag negative staph bacteremia history of enterococcus right upper extremity wound Will continue vancomycin/piperacillin/tazobactam/diflucan for now. Blood cultures 2 negative so far. ID following. tunneled vas cath removed 08/12. MSK/Rheum: SLE positive History bilateral [id number] amputation's Right second/third finger amputation Currently not on any long-term medication for SLE. PT evaluate and treat Hyperphosphatemia See renal. Continue sevelamer 1600 mg 3 times a day recheck phosphorus no Bradycardia- asymptomatic- will monitor. Prophylaxis - GI - pantoprazole - DVT - SCD/on warfarin chronically. Holding in light of active GI bleed. Discharge Planning dc home on Tuesday- after HD- if cleared by GI. previously d/w and case management. Problem Qualifiers (1) Fever: Qualified Codes: R50.9 - Fever, unspecified (2) Lupus (systemic lupus erythematosus): Qualified Codes: M32.15 - Tubulo-interstitial nephropathy in systemic lupus erythematosus (3) Anemia: Qualified Codes: N18.6 - End stage renal disease; D63.1 - Anemia in chronic kidney disease; Z99.2 - Dependence on renal dialysis (4) Gastroesophageal reflux disease: Qualified Codes: K21.9 - Gastro-esophageal reflux disease without esophagitis (5) Coronary artery disease: Qualified Codes: I25.10 - Atherosclerotic heart disease of [place] coronary artery without angina pectoris Flori Matthews MD Aug 18, 2017 12:42
--- NOTE | 2017-08-18 15:52 | HHI.GIFU ---
Subjective Remarks REsting in bed, getting breathing tx, eager to go home. No further bleeding. NO black stool, no abd pain. (Mely Maynard) Objective Vitals I&O Vital Signs Date Time Temp Pulse Resp B/P (MAP) Pulse Ox O2 Delivery O2 Flow Rate FiO2 08/18/17 12:00 97.2 52 18 97/58 (71) 97 08/18/17 09:41 93 Nasal Cannula 3.00 08/18/17 08:00 97.9 44 18 110/60 (77) 92 08/18/17 08:00 Room Air 08/18/17 07:55 50 08/18/17 04:00 97.3 45 16 120/63 (82) 93 08/18/17 04:00 Room Air 08/18/17 00:00 Room Air 08/18/17 00:00 97.6 47 18 103/59 (74) 94 08/17/17 22:30 93 08/17/17 20:51 45 08/17/17 20:43 94 Nasal Cannula 3.00 08/17/17 20:00 Room Air 08/17/17 20:00 97.2 53 18 110/56 (74) 94 08/17/17 16:06 97.4 50 18 108/58 (75) 92 I/O 08/17/17 08/17/17 08/17/17 08/18/17 08/18/17 08/18/17 07:00 15:00 23:00 07:00 15:00 23:00 Intake Total 762 ml 1010 ml Output Total 3000 ml 0 ml Balance -3000 ml 762 ml 1010 ml Intake Oral 480 ml 840 ml IV Total 282 ml 170 ml Output Urine Total 0 ml Hemodialysis 3000 ml # Voids 1 # Bowel Movements 1 0 Laboratory Laboratory Tests Test 08/17/17 20:05 08/17/17 21:51 08/18/17 07:50 White Blood Count 10.6 10.0 Red Blood Count 3.28 3.29 Hemoglobin 10.3 10.6 Hematocrit 32.9 33.3 Mean Corpuscular Volume 100.1 101.1 Mean Corpuscular Hemoglobin 31.2 32.1 Mean Corpuscular Hemoglobin Concent 31.2 31.8 Red Cell Distribution Width 20.9 22.2 Platelet Count 200 225 Mean Platelet Volume 8.3 8.7 Neutrophils (%) (Auto) 81.4 73.4 Lymphocytes (%) (Auto) 6.8 14.0 Monocytes (%) (Auto) 10.9 10.8 Eosinophils (%) (Auto) 0.5 0.9 Basophils (%) (Auto) 0.4 0.9 Neutrophils # (Auto) 8.6 7.3 Lymphocytes # (Auto) 0.7 1.4 Monocytes # (Auto) 1.2 1.1 Eosinophils # (Auto) 0.0 0.1 Basophils # (Auto) 0.0 0.1 CBC Comment AUTO DIFF AUTO DIFF Differential Total Cells Counted 100 Neutrophils % (Manual) 84 Band Neutrophils % 1 Lymphocytes % 5 Monocytes % 6 Neutrophils # (Manual) 9.4 Metamyelocytes 1 Myelocytes 3 Nucleated Red Blood Cells 3 Differential Comment FINAL DIFF MANUAL AUTO DIFF CONFIRMED Platelet Estimate NORMAL Platelet Morphology Comment NORMAL Polychromasia 3.0 2.5 Target Cells 1+ Ovalocytes 1+ 1+ Phosphorus Level 3.4 4.3 Blood Urea Nitrogen 32 Creatinine 7.64 Random Glucose 84 Albumin 3.3 Calcium Level 7.6 Sodium Level 136 Potassium Level 5.0 Chloride Level 97 Carbon Dioxide Level 28.1 Anion Gap 11 Estimat Glomerular Filtration Rate 9 Date/Time Source Procedure Growth Status 08/12/17 09:40 Blood Peripheral Aerobic Blood Culture - Final NO GROWTH IN 5 DAYS Complete 08/12/17 09:40 Blood Peripheral Anaerobic Blood Culture - Final NO GROWTH IN 5 DAYS Complete 08/12/17 14:43 Catheter Tip Wound Culture - Final Complete Physical Exam HEENT: Normocephalic; atraumatic; no jaundice. NECK: Neck is supple. CHEST:getting breathing [place] CARDIAC: SB ABDOMEN: Soft, nondistended, nontender; EXTREMITIES: Bilateral BKA SKIN: Normal; no rash; no jaundice. 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 (Mely Maynard [facility]) Assessment and Plan Plan ASSESSMENT - Upper GIB. Had guaiac positive stools, anemia on admission (HH 8.8/27.2). S/ P EGD (08/13/17)----> 1. Bleeding Esophageal varices, with active bleeding identified, 6 bands applied to control the bleeding 2.There was gastritis in the entire examined stomach 3. Multiple large erosions were found in the duodenal bulb and 2nd part duodenum. no further bleeding - Anemia, acute blood loss. HH improved, no further bleeding - Thrombocytopenia. Plt. 104,000. - Esophageal Varices. S/P band ligation. No active bleeding. PPI, - Duodenal bulb ulcers, gastritis. PPI. - Elevated LFTs, Liver cirrhosis- pt has varices, thrombocytopenia, hypoalbuminemia. Liver workup. No ETOH use- did drink ETOH 30 years ago. (+) Lupus. liver w/u so far unremarkable AMA still pending. - ESRD, HD -. - Sepsis. BCx no growth 2 days. Wound cx (Cath tip) > 15 CFU yeast species, > 15 Corynebacterium. Abx per attending. - Lupus, CAD, PAD, per attending. - Hx hypercoagulable state with hx DVT/PE, on chronic anticoagulation. PLAN: - 2 gram Sodium renal diet - BID protonix - await AMA - Monitor HH - Repeat EGD in 2-4 weeks - f/u with GI as outpatient 1 week - ok to d/c from GI standpoint - Patient seen and examined by Dr. Rodriguez and myself and this note is written on his behalf. (Mely Maynard) Physician Comments Seen and examined, plan as above. Please notify us if needed. (Chon Rodriguez MD) Mely Maynard Aug 18, 2017 15:52 Chon Rodriguez MD Aug 18, 2017 16:58
--- NOTE | 2017-08-18 17:30 | HHI.NPPN ---
Subjective History of Present Illness This patient is a 46-year-old male with a history of end-stage renal disease, SLE, hypertension, peripheral vascular disease as well as secondary hyperparathyroidism of renal disease. Unfortunately the patient has had multiple dialysis accesses including dialysis shunts and dialysis catheters in the past complicated by access failure as well as infection. Patient now has very limited options for dialysis access. We were relying on a left femoral dialysis line for access. Fortunately vessel surgery was able to create a left arm AV dialysis fistula back in February. We have used the access for dialysis 3 and the patient was scheduled to have his PermCath removed this Tuesday however presented to the dialysis facility with lethargy and pyrexia. Sepsis imost likely recurrence of line infection most likely consideration. Since admission however noted to have GI bleed and upper endoscopy revealed severe gastritis, and duodenum and mention of large bleeding esophageal varices Interval History Patient had no verbal complaints today. Is anxious to get home. Objective Data Data Vital Signs Date Time Temp Pulse Resp B/P (MAP) Pulse Ox O2 Delivery O2 Flow Rate FiO2 08/18/17 16:00 97.6 50 18 114/58 (76) 94 08/18/17 12:00 97.2 52 18 97/58 (71) 97 08/18/17 09:41 93 Nasal Cannula 3.00 08/18/17 08:00 97.9 44 18 110/60 (77) 92 08/18/17 08:00 Room Air 08/18/17 07:55 50 08/18/17 04:00 97.3 45 16 120/63 (82) 93 08/18/17 04:00 Room Air 08/18/17 00:00 Room Air 08/18/17 00:00 97.6 47 18 103/59 (74) 94 08/17/17 22:30 93 08/17/17 20:51 45 08/17/17 20:43 94 Nasal Cannula 3.00 08/17/17 20:00 Room Air 08/17/17 20:00 97.2 53 18 110/56 (74) 94 -: 08/18/17 0750 08/18/17 0750 Physical Exam General Appearance: Well Developed, Well Nourished, No Acute Distress, Comfortable Eyes Eye Exam: Sclera White Pulmonary Resp Exam: Clear Bilaterally, Breath Sounds Equal, No Distress Cardiology CV Exam: Regular, Normal Sinus Rhythm Gastrointestinal/Abdomen GI Exam: Soft, Non-Tender Integumentary Skin Exam: Clear, Warm Extremeties Extremities Exam: No Edema Neurologic Neuro Exam: Alert, Awake, Speech Clear, Moving All Extremities, Sedated Psychiatric Psych Exam: Appropriate Responses Assessment/Plan Discussed Condition With: Patient Problem List: (1) End-stage renal disease on hemodialysis ICD Codes: N18.6 - End stage renal disease; Z99.2 - Dependence on renal dialysis Status: Chronic Plan: Continue HD MWF as per outpatient schedule. Hemodialysis tomorrow in- house. L femoral Perm Cath has been removed and no reported issues with cannulation of RUE AVF. Patient appears clinically stable today from a renal point of view. Discharge planning per primary care physician and gastroenterology. Patient clear for discharge from a renal point of view with outpatient follow- up at the dialysis facility. Avoid gadolinium. Medication should be adjusted for his end-stage renal disease when indicated. (2) Complications, dialysis, catheter, mechanical ICD Codes: T82.49XA - Other complication of vascular dialysis catheter, initial encounter Status: Acute Plan: Hemodialysis PermCath removed. AV dialysis fistula appears to be working well. Blood cultures negative greater than 72 hours hours . It is possible his presentation was primarily related to GI bleed. (3) Anemia of renal disease ICD Codes: D63.1 - Anemia in chronic kidney disease Status: Chronic Plan: Epogen increased. I will continue Aranesp as an outpatient for management of anemia. (4) Esophageal varices determined by endoscopy ICD Codes: I85.00 - Esophageal varices without bleeding Plan: As far as I'm aware the patient has no known history of cirrhosis. Previous hepatitis profile negative. 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 Clarence Merlos MD Aug 18, 2017 17:30
[2017-08-18] MEDS: DEXT 5%-NACL 0.45% 1000 ML INJ 1,000 ML IV SCH (20:34)
[2017-08-18] MEDS: PANTOPRAZOLE SOD 40 MG DELAYED RELEASE TAB PO SCH (21:13)
[2017-08-19] VITALS (10 sets, daily range): BP systolic 96–121; BP diastolic 54–61; PULSE 48–118; RESP 16–20; TEMP 97.2–98.1; O2SAT 88–99
[2017-08-19 03:49] LABS: MITOCHONDRIAL ABS LESS THAN 20.0 U (<=20.0)
[2017-08-19] MEDS: RESP: ALBUTEROL 2.5 MG/IPRATROPIUM 0.5 MG NEB (SCH) INH ×3 (03:54→14:59)
[2017-08-19] MEDS: MIDODRINE 5 MG TAB PO SCH ×3 (06:06→18:06)
--- NOTE | 2017-08-19 07:10 | HHI.PR ---
Subjective Remarks in no acute distress. no new complaints. resting comfortably. no fever. wants to go home today. Objective Vitals Vital Signs Date Time Temp Pulse Resp B/P (MAP) Pulse Ox O2 Delivery O2 Flow Rate FiO2 08/19/17 00:00 97.4 58 16 100/54 (69) 99 08/18/17 21:26 Room Air 08/18/17 20:06 94 Nasal Cannula 3.00 08/18/17 20:00 97.5 50 18 110/54 (72) 92 08/18/17 19:54 59 08/18/17 16:00 97.6 50 18 114/58 (76) 94 08/18/17 12:00 97.2 52 18 97/58 (71) 97 08/18/17 09:41 93 Nasal Cannula 3.00 08/18/17 08:00 97.9 44 18 110/60 (77) 92 08/18/17 08:00 Room Air 08/18/17 07:55 50 I/O 08/18/17 08/18/17 08/18/17 08/19/17 08/19/17 08/19/17 07:00 15:00 23:00 07:00 15:00 23:00 Intake Total 1010 ml 480 ml Output Total 0 ml Balance 1010 ml 480 ml Intake Oral 840 ml 480 ml IV Total 170 ml Output Urine Total 0 ml # Voids 0 # Bowel Movements 0 0 Result Diagram: 08/18/17 0750 08/18/17 0750 Imaging Last Impressions Chest X-Ray 08/12/17 0910 Signed Impressions: Service Date/Time: Saturday, August 12, 2017 09:25 - CONCLUSION: 1. Stable scattered patchiness bilaterally. Chon Nye MD Central Venous Line 08/12/17 0000 Signed Impressions: Service Date/Time: Saturday, August 12, 2017 00:00 - CONCLUSION: Uncomplicated Permcath removal. Shmuel Beckett MD Objective Remarks GENERAL: This is a well-nourished, well-developed patient, in no apparent distress. CARDIOVASCULAR: Regular rate and regular rhythm without murmurs, gallops, or rubs. RESPIRATORY: Clear to auscultation. Breath sounds equal bilaterally. No wheezes , rales, or rhonchi. GASTROINTESTINAL: Abdomen soft, non-tender, nondistended. Normal, active bowel sounds MUSCULOSKELETAL: s/o bilateral BKA NEURO: Alert & Oriented x4 to person, place, time, situation. Moves all ext x4 Procedures EGD PROCEDURE REPORT EXAM DATE: 08/13/2017 INDICATIONS: The patient is a 46 yr old male here for an EGD due to melena PROCEDURE PERFORMED: EGD w/ band ligation of varices MEDICATIONS: None and Per Anesthesia. TOPICAL ANESTHETIC: none CONSENT: The patient understands the risks and benefits of the procedure and understands that these risks include, but are not limited to: sedation, allergic reaction, infection, perforation and/or bleeding. Alternative means of evaluation and treatment include, among others: physical exam, x-rays, and/or surgical intervention. The patient elects to proceed with this endoscopic procedure. medical equipment was checked for proper function. Hand hygiene and appropriate measures for infection prevention was taken. After the risks, benefits and alternatives of the procedure were thoroughly explained, Informed consent was verified, confirmed and timeout was successfully executed by the treatment team. The patient was anesthetized with topical anesthesia and the Pentax [id number] endoscope was introduced through the mouth and advanced to the second portion of the duodenum. Retroflexion was performed and was normal The gastroscope was then slowly withdrawn and removed. ESOPHAGUS: There were large varices in the middle third of the esophagus and lower third esophagus. The varices were bleeding intermittently with spurting spot , 6 bands applied and bleeding controlled. STOMACH: There was severe and erosive gastritis in the entire examined stomach. DUODENUM: Multiple large shallow erosions were found in the duodenal bulb and 2nd part duodenum. ADVERSE EVENTS: There were no complications. IMPRESSIONS: 1. Bleeding Esophageal varices, with active bleeding identified, 6 bands applied to controll the bleeding 2. There was gastritis in the entire examined stomach 3. Multiple large erosions were found in the duodenal bulb and 2nd part duodenum RECOMMENDATIONS: Continue PPI , start Octreotide, PATIENT CONDITION: stable DISPOSITION: Observation REPEAT EXAM: Return 4 weeks EGD Chon Rodriguez MD 08/13/2017 1:38 PM Medications and IVs Current Medications Dextrose (D50w (Vial) Inj) 50 ml STK-MED ONCE .ROUTE ; Start 08/12/17 at 09:09; Stop 08/12/17 at 09:10; Status DC Acetaminophen (Tylenol) 650 mg ONCE ONCE PO ; Start 08/12/17 at 09:15; Stop at 09:16; Status DC Vancomycin HCl 1000 mg/Sodium Chloride 250 ml @ 250 mls/hr ONCE STAT IV Last administered on 08/12/17 10:32; Start 08/12/17 at 09:10; Stop 08/12/17 at 10:09 ; Status DC Piperacillin Sod/ Tazobactam Sod 50 ml @ 100 mls/hr ONCE ONCE IV Last administered on 08/12/17 09:48; Start 08/12/17 at 09:15; Stop 08/12/17 at 09:44 ; Status DC Dextrose (D50w (Vial) Inj) 50 ml NOW ONCE IV PUSH Last administered on 10:56; Start 08/12/17 at 10:45; Stop 08/12/17 at 10:46; Status DC Acetaminophen (Tylenol Supp) 650 mg NOW ONCE RECTAL Last administered on 10:56; Start 08/12/17 at 10:45; Stop 08/12/17 at 10:46; Status DC Sodium Chloride 250 ml @ 15 mls/hr ONCE ONCE IV Last administered on 15:23; Start 08/12/17 at 11:30; Stop 08/13/17 at 04:09; Status DC Sodium Chloride 1,000 ml @ 84 mls/hr [id number] IV Last administered on 12:10; Start 08/12/17 at 11:45; Stop 08/12/17 at 12:20; Status DC Sodium Chloride (NS Flush) 2 ml UNSCH PRN IV FLUSH FLUSH AFTER USING IV ACCESS ; Start 08/12/17 at 11:45 Sodium Chloride (NS Flush) 2 ml BID IV FLUSH Last administered on 08/18/17 09: 07; Start 08/12/17 at 21:00 Acetaminophen (Tylenol) 650 mg Q6H PRN PO PAIN 1-5 AND/OR FEVER >101F Last administered on 08/12/17 23:53; Start 08/12/17 at 11:45 Acetaminophen/ Hydrocodone Bitart ([place] 5-325 Mg) 1 tab Q4H PRN PO PAIN SCALE 1 TO 5; Start 08/12/17 at 11:45; Stop 08/12/17 at 11:51; Status DC Morphine Sulfate (Morphine Inj) 2 mg Q2H PRN IV PUSH PAIN SCALE 6 TO 10; Start 08/12/17 at 11:45; Stop 08/12/17 at 11:51; Status DC Pantoprazole Sodium (Protonix Inj) 40 mg DAILY IV PUSH ; Start 08/13/17 at 09:00 ; Stop 08/13/17 at 09:00; Status DC Ondansetron HCl (Zofran Inj) 4 mg Q6H PRN IV PUSH NAUSEA OR VOMITING Last administered on 08/15/17 13:52; Start 08/12/17 at 11:45 Albuterol/ Ipratropium (Duoneb Neb) 1 ampule Q6HR NEB INH Last administered on 08/18/17 15:32; Start 08/12/17 at 16:00 Albuterol Sulfate (Albuterol Neb) 2.5 mg Q2HR NEB PRN INH SOB/WHEEZING; Start 08/12/17 at 11:45 Miscellaneous Information 1 Q361D XX ; Start 08/12/17 at 11:45 Senna/Docusate Sodium (Angelika-Colace) 1 tab BID PO Last administered on 09:07; Start 08/12/17 at 21:00 Magnesium Hydroxide (Milk Of Magnesia Liq) 30 ml Q12H PRN PO Mild constipation ; Start 08/12/17 at 11:45 Sennosides (Senokot) 17.2 mg Q12H PRN PO Moderate constipation; Start 08/12/17 at 11:45 Bisacodyl (Dulcolax Supp) 10 mg DAILY PRN RECTAL SEVERE CONSITIPATION; Start 08/12/17 at 11:45 Lactulose (Lactulose Liq) 30 ml DAILY PRN PO SEVERE CONSITIPATION; Start at 11:45 Midodrine (Proamatine) 10 mg TID@,12,17 PO Last administered on 08/19/17 06 :06; Start 08/12/17 at 12:00 Hydrocortisone Sodium Succinate (SoluCORTEF INJ) 100 mg Q8HR IV PUSH Last administered on 08/16/17 06:17; Start 08/12/17 at 14:00; Stop 08/16/17 at 10:11 ; Status DC Alprazolam (Xanax) 1 mg Q8H PRN PO ANXIETY Last administered on 08/12/17 23:53 ; Start 08/12/17 at 12:00 Fluconazole (Diflucan) 400 mg DAILY PO ; Start 08/13/17 at 09:00; Stop 08/13/17 at 09:00; Status DC Sevelamer Carbonate (Renvela) 1,600 mg TID PO ; Start 08/12/17 at 13:00; Stop 08/15/17 at 11:59; Status DC Warfarin Sodium (Coumadin) 4 mg DAILY PO ; Start 08/13/17 at 09:00; Stop at 09:00; Status DC Warfarin Sodium (Coumadin) 3 mg DAILY@1600 PO ; Start 08/12/17 at 16:00; Stop 08/12/17 at 16:00; Status DC Phenylephrine HCl 160 mg/Dextrose 500 ml @ 7.5 mls/hr TITRATE PRN IV Blood pressure management Last administered on 08/12/17 13:26; Start 08/12/17 at 12: 00 Terbutaline Sulfate (Brethine Inj) 1 mg UNSCH PRN SQ For Extravasation Last administered on 08/13/17 03:13; Start 08/12/17 at 12:00 Piperacillin Sod/ Tazobactam Sod 50 ml @ 100 mls/hr Q8H IV Last administered on 08/16/17 10:11; Start 08/12/17 at 18:00; Stop 08/16/17 at 11:15; Status DC Pharmacy Profile Note 0 ml @ 0 mls/hr UNSCH OTHER ; Start 08/12/17 at 12:00; Stop 08/12/17 at 17:08; Status DC Dextrose/Sodium Chloride 1,000 ml @ 30 mls/hr Q24H IV Last administered on 21:25; Start 08/12/17 at 12:30 Dextrose (D50w (Vial) Inj) 50 ml UNSCH PRN IV PUSH HYPOGLYCEMIA-SEE COMMENTS; Start 08/12/17 at 12:30 Glucagon (Glucagon Inj) 1 mg UNSCH PRN OTHER HYPOGLYCEMIA-SEE COMMENTS; Start 08/12/17 at 12:30 Insulin Human Regular (NovoLIN R SUPPLEMENTAL SCALE) 1 ACHS SLIDING SCALE SQ Last administered on 08/14/17 12:56; Start 08/12/17 at 17:00 Pantoprazole Sodium (Protonix Inj) 40 mg BID IV PUSH Last administered on 09:07; Start 08/12/17 at 21:00; Stop 08/18/17 at 17:06; Status DC Albumin Human 50 ml @ 60 mls/hr ONCE ONCE IV Last administered on 08/12/17 16 :44; Start 08/12/17 at 14:00; Stop 08/12/17 at 14:49; Status DC Epoetin Eddie (Epogen Inj) 10,000 units ONCE ONCE SQ Last administered on 15:34; Start 08/12/17 at 14:00; Stop 08/12/17 at 14:01; Status DC Lidocaine/ Epinephrine (Xylocaine-Epi 1%-1:100,000 Inj) 20 ml STK-MED ONCE .ROUTE Last administered on 08/12/17 14:40; Start 08/12/17 at 13:37; Stop 08/12/17 at 13:38; Status DC Sodium Phosphate 15 mmol/Sodium Chloride 155 ml @ 38.75 mls/ hr ONCE ONCE IV Last administered on 08/12/17 18:51; Start 08/12/17 at 16:00; Stop 08/12/17 at 19:59; Status DC Vancomycin HCl 1000 mg/Sodium Chloride 250 ml @ 250 mls/hr WITH DIALYSIS IV Last administered on 08/17/17 12:46; Start 08/15/17 at 14:00 Fluconazole/ Sodium Chloride 100 ml @ 100 mls/hr Q24H IV Last administered on 08/15/17 21:51; Start 08/12/17 at 20:00; Stop 08/16/17 at 11:15; Status DC Hydromorphone HCl (Dilaudid Pf Inj) 0.5 mg Q4H PRN IV PAIN >5/10 Last administered on 08/13/17 03:10; Start 08/13/17 at 00:30; Stop 08/13/17 at 03:23 ; Status DC Hydromorphone HCl (Dilaudid Pf Inj) 0.5 mg Q2H PRN IV PAIN >5/10 Last administered on 08/13/17 04:52; Start 08/13/17 at 03:30 Fentanyl Citrate (fentaNYL INJ) 100 mcg UNSCH X1 PRN IV PUSH SEE DOSE INSTRUCTIONS; Start 08/13/17 at 03:30; Stop 08/14/17 at 03:29; Status DC Octreotide Acetate (SandoSTATIN INJ) 250 mcg Q8HR IV PUSH ; Start 08/13/17 at 14 :00; Stop 08/13/17 at 19:59; Status DC Sodium Chloride 1,000 ml @ 0 mls/hr Q0M PRN OTHER For Prime & Rinse Back Last administered on 08/15/17 12:27; Start 08/13/17 at 13:53 Sodium Chloride 1,000 ml @ 200 mls/hr Q5H PRN IV WITH DIALYSIS; Start 08/13/17 at 13:53 Sodium Chloride 1,000 ml @ 0 mls/hr Q0M PRN OTHER WITH DIALYSIS; Start at 13:53 Mannitol (Mannitol Inj) 12.5 gm UNSCH PRN IV WITH DIALYSIS; Start 08/13/17 at 14:00 Albumin Human 100 ml @ 60 mls/hr UNSCH PRN IV WITH DIALYSIS; Start 08/13/17 at 14:00 Sodium Chloride (NS Flush) 5 ml UNSCH PRN IV FLUSH WITH DIALYSIS; Start at 14:00 Ondansetron HCl (Zofran Inj) 4 mg UNSCH PRN IV PUSH WITH DIALYSIS; Start at 14:00 Acetaminophen (Tylenol) 650 mg UNSCH PRN PO for headach, pain, temp > 101F; Start 08/13/17 at 14:00 Diphenhydramine HCl (Benadryl) 25 mg UNSCH PRN PO for hives/itching/anaphylaxis ; Start 08/13/17 at 14:00 Nitroglycerin (Nitrostat Sl) 0.4 mg UNSCH PRN SL CHEST PAIN; Start 08/13/17 at 14:00 Clonidine (Catapres) 0.1 mg UNSCH PRN PO for BP > 180/100 X 2 readings; Start 08/13/17 at 14:00 Epoetin Eddie (Epogen Inj) 8,000 units UNSCH PRN IV PUSH WITH DIALYSIS Last administered on 08/15/17 12:26; Start 08/13/17 at 14:00; Stop 08/16/17 at 10:14 ; Status DC Gelatin (Gelfoam 12 Mm/7 Mm Top) 1 foam UNSCH PRN TOP SEE LABEL COMMENTS Last administered on 08/15/17 12:26; Start 08/13/17 at 14:00 Miscellaneous Information ALL NURSING DEPARTME... UNSCH PRN .XX SEE LABEL COMMENTS; Start 08/13/17 at 15:00; Stop 08/14/17 at 14:59; Status DC Octreotide Acetate (SandoSTATIN INJ) 250 mcg Q8HR IV PUSH Last administered on 08/13/17 23:37; Start 08/13/17 at 22:00; Stop 08/14/17 at 10:22; Status DC Octreotide Acetate (SandoSTATIN INJ) 250 mcg Q4H IV ; Start 08/14/17 at 13:00; Status Cancel Octreotide Acetate 500 mcg/ Sodium Chloride 500 ml @ 25 mls/hr Q20H IV Last administered on 08/17/17 23:11; Start 08/14/17 at 14:00; Stop 08/19/17 at 13: 59 Calcium Acetate (Phoslo) 1,334 mg TID PO Last administered on 08/18/17 17:58; Start 08/15/17 at 13:00 Hydrocortisone Sodium Succinate (SoluCORTEF INJ) 100 mg Q12HR IV PUSH Last administered on 08/16/17 21:02; Start 08/16/17 at 21:00; Stop 08/17/17 at 12:57 ; Status DC Epoetin Eddie (Epogen Inj) 10,000 units UNSCH PRN IV PUSH WITH DIALYSIS Last administered on 08/17/17 12:46; Start 08/16/17 at 10:15 Fluconazole (Diflucan) 100 mg DAILY PO Last administered on 08/18/17 09:07; Start 08/16/17 at 12:00 Hydrocortisone Sodium Succinate (SoluCORTEF INJ) 50 mg Q12HR IV PUSH Last administered on 08/18/17 09:07; Start 08/17/17 at 21:00 Pantoprazole Sodium (Protonix) 40 mg Q12HR PO Last administered on 08/18/17 21 :13; Start 08/18/17 at 21:00 A/P Problem List: (1) Elevated lactic acid level ICD Code: E87.2 - Acidosis Status: Acute (2) HYPOTENSION OF HEMODIALYSIS ICD Code: I95.3 - HYPOTENSION OF HEMODIALYSIS Status: Acute (3) Fever ICD Code: R50.9 - Fever, unspecified Status: Acute (4) ESRD (end stage renal disease) on dialysis ICD Code: N18.6 - End stage renal disease; Z99.2 - Dependence on renal dialysis Status: Chronic (5) Lupus (systemic lupus erythematosus) ICD Code: M32.9 - Systemic lupus erythematosus, unspecified (6) Hypoglycemia ICD Code: E16.2 - Hypoglycemia, unspecified (7) Anemia ICD Code: D64.9 - Anemia, unspecified Status: Acute (8) Chronic anticoagulation ICD Code: 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 (9) H/O hypercoagulable state ICD Code: Z86.2 - Personal history of diseases of the blood and blood-forming organs and certain disorders involving the immune mechanism (10) Elevated glucose ICD Code: R73.09 - Other abnormal glucose (11) Hypoalbuminemia ICD Code: E88.09 - Other disorders of plasma-protein metabolism, not elsewhere classified (12) Thrombocytopenia ICD Code: D69.6 - Thrombocytopenia, unspecified (13) Elevated AST (SGOT) ICD Code: R74.0 - Nonspecific elevation of levels of transaminase and lactic acid dehydrogenase [LDH] (14) Macrocytic anemia ICD Code: D53.9 - Nutritional anemia, unspecified (15) Severe sepsis ICD Code: A41.9 - Sepsis, unspecified organism; R65.20 - Severe sepsis without septic shock (16) History of DVT (deep vein thrombosis) ICD Code: Z86.718 - Personal history of other venous thrombosis and embolism (17) History of pulmonary embolism ICD Code: Z86.711 - Personal history of pulmonary embolism (18) Gastroesophageal reflux disease ICD Code: K21.9 - Gastro-esophageal reflux disease without esophagitis (19) Coronary artery disease ICD Code: I25.10 - Atherosclerotic heart disease of [place] coronary artery without angina pectoris (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 Currently on alprazolam Severe sepsis - resolved. Coronary artery disease status post stent PAD Echocardiogram 7/17 revealed EF 55-60%. Mild left ventricular hypertrophy. Trace TR. Started on midodrine 10 mg 3 times a day . switch back to po steroids Asthma? Chronic bibasilar opacification Nasal cannula to maintain saturations greater than or equal to 92% Incentive spirometry while awake continue neb treatment. Elevated AST Gastroesophageal reflux disease Bleeding Esophageal varices, with active bleeding- s/p banding gastritis Multiple large erosions were found in the duodenal bulb and 2nd part duodenum continue protonix GI follow-up appreciated and cleared for discharge. f/u as outpatient. recent hydrocortisone use resume home meds upon discharge. End-stage renal disease on chronic intermittent hemodialysis Tuesday/Tuesday and Tuesday secondary to lupus nephritis Hyperphosphatemia Consulted nephrology - Dr. Merlos for hemodialysis Continue sevelamer 1600 mg 3 times a day for hyperphosphatemia cleared by nephrology for discharge. Macrocytic anemia Anemia of chronic kidney disease and acute blood loss Thrombocytopenia Hypercoagulable state On chronic warfarin therapy. Last evaluation in [address] O[place]. At that time workup negative except for low protein S. Did not recommend repeating. Recommended lifelong anticoagulation due to history of PE/ DVT/SVC thrombus etc. no anticoagulation because of GI bleed Transfuse as clinically indicated to maintain hemoglobin greater than 7 trend h&h Severe sepsis Recent staph epi/coag negative staph bacteremia history of enterococcus right upper extremity wound Will continue vancomycin/piperacillin/tazobactam/diflucan for now. Blood cultures 2 negative so far. ID following. tunneled vas cath removed 08/12. 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 PT evaluate and treat Hyperphosphatemia See renal. Continue sevelamer 1600 mg 3 times a day recheck phosphorus no Bradycardia- asymptomatic- will monitor. Prophylaxis - GI - pantoprazole - DVT - SCD/on warfarin chronically. Holding in light of active GI bleed. Discharge Planning dc home today after HD. see med list. f/u; pcp, GI,nephrology. d/w the patient. time spent 35 min. Problem Qualifiers (1) Fever: Qualified Codes: R50.9 - Fever, unspecified (2) Lupus (systemic lupus erythematosus): Qualified Codes: M32.15 - Tubulo-interstitial nephropathy in systemic lupus erythematosus (3) Anemia: Qualified Codes: N18.6 - End stage renal disease; D63.1 - Anemia in chronic kidney disease; Z99.2 - Dependence on renal dialysis (4) Gastroesophageal reflux disease: Qualified Codes: K21.9 - Gastro-esophageal reflux disease without esophagitis (5) Coronary artery disease: Qualified Codes: I25.10 - Atherosclerotic heart disease of [place] coronary artery without angina pectoris Flori Matthews MD Aug 19, 2017 07:10
[2017-08-19] MEDS ORDERED: PANT40TA3 PO (07:13)
--- NOTE | 2017-08-19 07:14 | HHI.DS ---
Discharge Summary Admission Date Aug 12, 2017 at 11:54 Discharge Date: Aug 19, 2017 Admitting Diagnosis Severe Sepsis (PNA); GI Bleed; Anemia (1) Elevated lactic acid level ICD Code: E87.2 - Acidosis Diagnosis: Principal Status: Acute (2) HYPOTENSION OF HEMODIALYSIS ICD Code: I95.3 - HYPOTENSION OF HEMODIALYSIS Diagnosis: Principal Status: Acute (3) Fever ICD Code: R50.9 - Fever, unspecified Diagnosis: Principal Status: Acute (4) ESRD (end stage renal disease) on dialysis ICD Code: N18.6 - End stage renal disease; Z99.2 - Dependence on renal dialysis Diagnosis: Principal Status: Chronic (5) Lupus (systemic lupus erythematosus) ICD Code: M32.9 - Systemic lupus erythematosus, unspecified Diagnosis: Secondary (6) Hypoglycemia ICD Code: E16.2 - Hypoglycemia, unspecified Diagnosis: Secondary (7) Anemia ICD Code: D64.9 - Anemia, unspecified Diagnosis: Secondary Status: Acute (8) Chronic anticoagulation ICD Code: Z79.01 - skilled nursing (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 of anticoagulants Diagnosis: Principal (9) H/O hypercoagulable state ICD Code: Z86.2 - Personal history of diseases of the blood and blood-forming organs and certain disorders involving the immune mechanism Diagnosis: Principal (10) Elevated glucose ICD Code: R73.09 - Other abnormal glucose Diagnosis: Principal (11) Hypoalbuminemia ICD Code: E88.09 - Other disorders of plasma-protein metabolism, not elsewhere classified Diagnosis: Principal (12) Thrombocytopenia ICD Code: D69.6 - Thrombocytopenia, unspecified Diagnosis: Principal (13) Elevated AST (SGOT) ICD Code: R74.0 - Nonspecific elevation of levels of transaminase and lactic acid dehydrogenase [LDH] Diagnosis: Principal (14) Macrocytic anemia ICD Code: D53.9 - Nutritional anemia, unspecified Diagnosis: Principal (15) Severe sepsis ICD Code: A41.9 - Sepsis, unspecified organism; R65.20 - Severe sepsis without septic shock Diagnosis: Principal (16) History of DVT (deep vein thrombosis) ICD Code: Z86.718 - Personal history of other venous thrombosis and embolism Diagnosis: Principal (17) History of pulmonary embolism ICD Code: Z86.711 - Personal history of pulmonary embolism Diagnosis: Secondary (18) Gastroesophageal reflux disease ICD Code: K21.9 - Gastro-esophageal reflux disease without esophagitis Diagnosis: Secondary (19) Coronary artery disease ICD Code: I25.10 - Atherosclerotic heart disease of minto coronary artery without angina pectoris Diagnosis: Principal (20) Lupus nephritis ICD Code: M32.14 - Glomerular disease in systemic lupus erythematosus Diagnosis: Secondary Status: Chronic (21) PAD (peripheral artery disease) ICD Code: I73.9 - Peripheral vascular disease, unspecified Diagnosis: Secondary Procedures EGD PROCEDURE REPORT EXAM DATE: 08/13/2017 INDICATIONS: The patient is a 46 yr old male here for an EGD due to melena PROCEDURE PERFORMED: EGD w/ band ligation of varices MEDICATIONS: None and Per Anesthesia. TOPICAL ANESTHETIC: none CONSENT: The patient understands the risks and benefits of the procedure and understands that these risks include, but are not limited to: sedation, allergic reaction, infection, perforation and/or bleeding. Alternative means of evaluation and treatment include, among others: physical exam, x-rays, and/or surgical intervention. The patient elects to proceed with this endoscopic procedure. medical equipment was checked for proper function. Hand hygiene and appropriate measures for infection prevention was taken. After the risks, benefits and alternatives of the procedure were thoroughly explained, Informed consent was verified, confirmed and timeout was successfully executed by the treatment team. The patient was anesthetized with topical anesthesia and the Pentax [id number] endoscope was introduced through the mouth and advanced to the second portion of the duodenum. Retroflexion was performed and was normal The gastroscope was then slowly withdrawn and removed. ESOPHAGUS: There were large varices in the middle third of the esophagus and lower third esophagus. The varices were bleeding intermittently with spurting spot , 6 bands applied and bleeding controlled. STOMACH: There was severe and erosive gastritis in the entire examined stomach. DUODENUM: Multiple large shallow erosions were found in the duodenal bulb and 2nd part duodenum. ADVERSE EVENTS: There were no complications. IMPRESSIONS: 1. Bleeding Esophageal varices, with active bleeding identified, 6 bands applied to controll the bleeding 2. There was gastritis in the entire examined stomach 3. Multiple large erosions were found in the duodenal bulb and 2nd part duodenum RECOMMENDATIONS: Continue PPI , start Octreotide, PATIENT CONDITION: stable DISPOSITION: Observation REPEAT EXAM: Return 4 weeks EGD Chon Rodriguez MD 08/13/2017 1:38 PM Brief History - From Admission This is a 46-year-old AA male. Date of admission . Past medical history includes SLE, lupus nephritis, end-stage renal disease on hemodialysis Tuesday/Tuesday and Tuesday per Dr. Merlos, history of pulmonary embolism/SVC thrombus, peripheral arterial disease, gastroesophageal reflux disease, anemia of chronic kidney disease, anxiety along with hyperphosphatemia. According to mother at bedside, patient started feeling "sick" yesterday become increasingly lethargic. Unknown if febrile/malaise/myalgias. Patient presented to his regular scheduled hemodialysis today where he was hypotensive, tachycardic and febrile. His right AV fistula graft is currently heparinized with syringes intact and in place. In the ED, patient received 1 L normal saline and 1 PRBC. Patient stool guaiac positive. Lactate was 6.6. Patient does have a white cell count. He has a macrocytic anemia and thrombocytopenia. During his last admission was diagnosed with staph epi/coag negative staph bacteremia. He was planned to have his left hemodialysis vascular catheter/femoral removed on Tuesday according to his mother bedside. He was on vancomycin scheduled with hemodialysis and oral Diflucan as an outpatient. Of note his baseline systolic blood pressure is in the 80s. CBC/BMP: 08/18/17 0750 08/18/17 0750 Significant Findings Laboratory Tests Test 08/17/17 20:05 08/17/17 21:51 08/18/17 07:50 Red Blood Count 3.28 MIL/MM3 (4.50-5.90) 3.29 MIL/MM3 (4.50-5.90) Hemoglobin 10.3 GM/DL (13.0-17.0) 10.6 GM/DL (13.0-17.0) Hematocrit 32.9 % (39.0-51.0) 33.3 % (39.0-51.0) Mean Corpuscular Volume 100.1 FL (80.0-100.0) 101.1 FL (80.0-100.0) Mean Corpuscular Hemoglobin Concent 31.2 % (32.0-36.0) 31.8 % (32.0-36.0) Red Cell Distribution Width 20.9 % (11.6-17.2) 22.2 % (11.6-17.2) Neutrophils (%) (Auto) 81.4 % (16.0-70.0) 73.4 % (16.0-70.0) Lymphocytes (%) (Auto) 6.8 % (9.0-44.0) Monocytes (%) (Auto) 10.9 % (0.0-8.0) 10.8 % (0.0-8.0) Neutrophils # (Auto) 8.6 TH/MM3 (1.8-7.7) Lymphocytes # (Auto) 0.7 TH/MM3 (1.0-4.8) Monocytes # (Auto) 1.2 TH/MM3 (0-0.9) 1.1 TH/MM3 (0-0.9) Neutrophils % (Manual) 84 % (16-70) Lymphocytes % 5 % (9-44) Neutrophils # (Manual) 9.4 TH/MM3 (1.8-7.7) Myelocytes 3 % (0-0) Nucleated Red Blood Cells 3 /100 WBC (0-0) Polychromasia 3.0 % (0.0-1.9) 2.5 % (0.0-1.9) Target Cells 1+ (NORMAL) Ovalocytes 1+ (NORMAL) 1+ (NORMAL) Blood Urea Nitrogen 32 MG/DL (7-18) Creatinine 7.64 MG/DL (0.60-1.30) Albumin 3.3 GM/DL (3.4-5.0) Calcium Level 7.6 MG/DL (8.5-10.1) Chloride Level 97 MEQ/L (98-107) Estimat Glomerular Filtration Rate 9 ML/MIN (>89) Imaging Last Impressions Chest X-Ray 08/12/17 0910 Signed Impressions: Service Date/Time: Saturday, August 12, 2017 09:25 - CONCLUSION: 1. Stable scattered patchiness bilaterally. Chon Nye MD Central Venous Line 08/12/17 0000 Signed Impressions: Service Date/Time: Saturday, August 12, 2017 00:00 - CONCLUSION: Uncomplicated Permcath removal. Shmuel Beckett MD PE at Discharge GENERAL: This is a well-nourished, well-developed patient, in no apparent distress. CARDIOVASCULAR: Regular rate and regular rhythm without murmurs, gallops, or rubs. RESPIRATORY: Clear to auscultation. Breath sounds equal bilaterally. No wheezes , rales, or rhonchi. GASTROINTESTINAL: Abdomen soft, non-tender, nondistended. Normal, active bowel sounds MUSCULOSKELETAL: s/o bilateral BKA NEURO: Alert & Oriented x4 to person, place, time, situation. Moves all ext x4 Hospital Course Anxiety disorder NOS Acute toxic metabolic encephalopathy likely secondary to severe sepsis - resolving. Currently on alprazolam Severe sepsis - resolved. Coronary artery disease status post stent PAD Echocardiogram 04/25 revealed EF 55-60%. Mild left ventricular hypertrophy. Trace TR. Started on midodrine 10 mg 3 times a day . switch back to po steroids Asthma? Chronic bibasilar opacification Nasal cannula to maintain saturations greater than or equal to 92% Incentive spirometry while awake continue neb treatment. Elevated AST Gastroesophageal reflux disease Bleeding Esophageal varices, with active bleeding- s/p banding gastritis Multiple large erosions were found in the duodenal bulb and 2nd part duodenum continue protonix GI follow-up appreciated and cleared for discharge. f/u as outpatient. recent hydrocortisone use resume home meds upon discharge. End-stage renal disease on chronic intermittent hemodialysis Tuesday/Tuesday and Tuesday secondary to lupus nephritis Hyperphosphatemia Consulted nephrology - Dr. Merlos for hemodialysis Continue sevelamer 1600 mg 3 times a day for hyperphosphatemia cleared by nephrology for discharge. Macrocytic anemia Anemia of chronic kidney disease and acute blood loss Thrombocytopenia Hypercoagulable state On chronic warfarin therapy. Last evaluation in [address] Oreilly. At that time workup negative except for low protein S. Did not recommend repeating. Recommended lifelong anticoagulation due to history of PE/ DVT/SVC thrombus etc. no anticoagulation because of GI bleed Transfuse as clinically indicated to maintain hemoglobin greater than 7 trend h&h Severe sepsis Recent staph epi/coag negative staph bacteremia history of enterococcus right upper extremity wound Will continue vancomycin/piperacillin/tazobactam/diflucan for now. Blood cultures 2 negative so far. ID following. tunneled vas cath removed 08/12. 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 PT evaluate and treat Hyperphosphatemia See renal. Continue sevelamer 1600 mg 3 times a day recheck phosphorus no Bradycardia- asymptomatic- will monitor. Prophylaxis - GI - pantoprazole - DVT - SCD/on warfarin chronically. Holding in light of active GI bleed. Pt Condition on Discharge: Good Discharge Disposition: Discharge Home Discharge Time: > 30 minutes Discharge Instructions DIET: Follow Instructions for: Renal Failure Diet Activities you can perform: Regular-No Restrictions Follow up Referrals: Gastroenterology Nephrology PCP Follow-up New Orders: PT/INR New Medications: Pantoprazole (Pantoprazole) 40 Mg Tab 40 MG PO Q12HR for GI bleed for 30 Days, TAB 0 Refills Continued Medications: Alprazolam (Xanax) 1 Mg Tab 1 MG PO Q8H PRN for ANXIETY, TAB 0 Refills Fludrocortisone (Fludrocortisone) 0.1 Mg Tab 0.1 MG PO WITH DIALYSIS for adrenal insufficency, #30 TAB 0 Refills Hydrocortisone (Hydrocortisone) 20 Mg Tab 20 MG PO BID for adrenal insufficency, #26 TAB 0 Refills take 1 tab twice a day for 1 weeks then decrease to 1/2 tablet twice day for 1 weeks then take 1/2 tablet once a day for 5 day then stop medication Sennosides-Docusate Sodium (Senna Plus 8.6-50 mg) 8.6 Mg-50 Mg Tab 1 TAB PO BID for constipation, #30 TAB 0 Refills Sevelamer HCl (Renagel) 800 Mg Tab 1600 MG PO TID for Control phosphorus levels, #180 TAB 0 Refills Warfarin (Coumadin) 3 Mg Tab 3 MG PO DAILY@1600 for DVT, #30 TAB 0 Refills need INR rechecked in 2-3 days to see if this dose is right for you. Discontinued Medications: Fluconazole (Diflucan) 200 Mg Tab 400 MG PO DAILY for infection, #14 TAB 0 Refills Pantoprazole (Protonix) 20 Mg Tab 20 MG PO DAILY for Reflux, #30 TAB 0 Refills Vancomycin Inj (Vancomycin Inj) 1,000 Mg Inj 1000 MG IV 3xA WEEK WITH DIALYS for Infection for 40 Days, BAG 0 Refills Warfarin (Warfarin) 4 Mg Tab 4 MG PO DAILY for Blood Clot Prevention, #30 TAB 0 Refills Flori Matthews MD Aug 19, 2017 07:14
[2017-08-19] MEDS: INSULIN NovoLIN REGULAR SUPPLEMENTAL SCALE SQ SCH ×4 (08:00→21:00)
[2017-08-19] MEDS: CALCIUM ACETATE 667 MG CAP PO SCH ×3 (09:00→18:05)
[2017-08-19] MEDS: HYDROCORTISONE SOD SUCCINATE 100 MG VIAL IV PUSH SCH ×3 (09:00→21:53)
[2017-08-19] MEDS: DOCUSATE SODIUM 50 MG/SENNA 8.6 MG TAB PO SCH ×2 (09:00→21:53)
--- NOTE | 2017-08-19 09:24 | HHI.DCPOC ---
Discharge Care Plan Diagnosis: (1) GI bleed (2) Anemia (3) Esophageal varices determined by endoscopy (4) End-stage renal disease on hemodialysis (5) Sepsis Your Health Problems Are: Inflammation Bleeding Tendency Goals to Promote Your Health * To prevent worsening of your condition and complications * To maintain your health at the optimal level Directions to Meet Your Goals Take your medications as prescribed Follow your dietary instruction Follow activity as directed Keep your appointments as scheduled Take your immunizations and boosters as scheduled If your symptoms worsen call your PCP, if no PCP go to Urgent Care Center or Emergency Room Smoking is Dangerous to Your Health. Avoid second hand smoke Call the 24-hour hour crisis hotline for domestic abuse at Lorna Davis Aug 19, 2017 09:23
--- NOTE | 2017-08-19 11:53 | HHI.PR ---
Addendum To [facility] Progress Not Reason for addendum: Additonal documentation (case was d/w ( GI); cleared to resume anticoagulation with coumadin.) Flori Matthews MD Aug 19, 2017 11:53
[2017-08-19] MEDS: VANCOMYCIN INJ 1,000 MG in SODIUM CHLOR 0.9% 250 ML INJ 250 ML IV SCH (12:18)
[2017-08-19] MEDS: EPOETIN ALFA 10,000 UNITS/ML VIAL IV PUSH PRN (12:21)
--- NOTE | 2017-08-19 13:13 | HHI.NPPN ---
Subjective History of Present Illness This patient is a 46-year-old male with a history of end-stage renal disease, SLE, hypertension, peripheral vascular disease as well as secondary hyperparathyroidism of renal disease. Unfortunately the patient has had multiple dialysis accesses including dialysis shunts and dialysis catheters in the past complicated by access failure as well as infection. Patient now has very limited options for dialysis access. We were relying on a left femoral dialysis line for access. Fortunately vessel surgery was able to create a left arm AV dialysis fistula back in February. We have used the access for dialysis 3 and the patient was scheduled to have his PermCath removed this Tuesday however presented to the dialysis facility with lethargy and pyrexia. Sepsis imost likely recurrence of line infection most likely consideration. Since admission however noted to have GI bleed and upper endoscopy revealed severe gastritis, and duodenum and mention of large bleeding esophageal varices Interval History Pt seen after dialysis today. Ready to go home. No complaints (Gladis Cole) Objective Data Data 08/19/17 08/20/17 19:00 07:00 Output Total 2500 ml Balance -2500 ml Hemodialysis 2500 ml Vital Signs Date Time Temp Pulse Resp B/P (MAP) Pulse Ox O2 Delivery O2 Flow Rate FiO2 08/19/17 08:00 97.2 52 18 108/57 (74) 08/19/17 08:00 Room Air 08/19/17 04:00 97.3 48 16 121/61 (81) 97 08/19/17 00:00 97.4 58 16 100/54 (69) 99 08/18/17 21:26 Room Air 08/18/17 20:06 94 Nasal Cannula 3.00 08/18/17 20:00 97.5 50 18 110/54 (72) 92 08/18/17 19:54 59 08/18/17 16:00 97.6 50 18 114/58 (76) 94 (Gladis Cole) -: 08/18/17 0750 08/19/17 0930 Imaging Last Impressions Chest X-Ray 08/12/17 0910 Signed Impressions: Service Date/Time: Saturday, August 12, 2017 09:25 - CONCLUSION: 1. Stable scattered patchiness bilaterally. Chon Nye MD Central Venous Line 08/12/17 0000 Signed Impressions: Service Date/Time: Saturday, August 12, 2017 00:00 - CONCLUSION: Uncomplicated Permcath removal. Shmuel Beckett MD Medication Review Current Medications Medications (Trade) Dose Ordered Sig/Nohelia Route Start Time Stop Time Status Last Admin (NS Flush) 2 ml UNSCH PRN IV FLUSH 08/12/17 11:45 (NS Flush) 2 ml BID IV FLUSH 08/12/17 21:00 08/18/17 09:07 (Tylenol) 650 mg Q6H PRN PO 08/12/17 11:45 08/12/17 23:53 (Zofran Inj) 4 mg Q6H PRN IV PUSH 08/12/17 11:45 08/15/17 13:52 (Duoneb Neb) 1 ampule Q6HR NEB INH 08/12/17 16:00 08/18/17 15:32 (Albuterol Neb) 2.5 mg Q2HR NEB PRN INH 08/12/17 11:45 Miscellaneous Information 1 Q361D XX 08/12/17 11:45 (Angelika-Colace) 1 tab BID PO 08/12/17 21:00 08/18/17 09:07 (Milk Of Magnesia Liq) 30 ml Q12H PRN PO 08/12/17 11:45 (Senokot) 17.2 mg Q12H PRN PO 08/12/17 11:45 (Dulcolax Supp) 10 mg DAILY PRN RECTAL 08/12/17 11:45 (Lactulose Liq) 30 ml DAILY PRN PO 08/12/17 11:45 (Proamatine) 10 mg TID@,, PO 08/12/17 12:00 08/19/17 06:06 (Xanax) 1 mg Q8H PRN PO 08/12/17 12:00 08/12/17 23:53 Phenylephrine HCl 160 mg/Dextrose 500 ml @ 7.5 mls/hr TITRATE PRN IV 08/12/17 12:00 08/12/17 13:26 (Brethine Inj) 1 mg UNSCH PRN SQ 08/12/17 12:00 08/13/17 03:13 Dextrose/Sodium Chloride 1,000 ml @ 30 mls/hr Q24H IV 08/12/17 12:30 08/17/17 21:25 (D50w (Vial) Inj) 50 ml UNSCH PRN IV PUSH 08/12/17 12:30 (Glucagon Inj) 1 mg UNSCH PRN OTHER 08/12/17 12:30 (NovoLIN R SUPPLEMENTAL SCALE) 1 ACHS SLIDING SCALE SQ 08/12/17 17:00 08/14/17 12:56 Vancomycin HCl 1000 mg/Sodium Chloride 250 ml @ 250 mls/hr WITH DIALYSIS IV 08/15/17 14:00 08/19/17 12:18 (Dilaudid Pf Inj) 0.5 mg Q2H PRN IV 08/13/17 03:30 08/13/17 04:52 Sodium Chloride 1,000 ml @ 0 mls/hr Q0M PRN OTHER 08/13/17 13:53 08/15/17 12:27 Sodium Chloride 1,000 ml @ 200 mls/hr Q5H PRN IV 08/13/17 13:53 Sodium Chloride 1,000 ml @ 0 mls/hr Q0M PRN OTHER 08/13/17 13:53 (Mannitol Inj) 12.5 gm UNSCH PRN IV 08/13/17 14:00 Albumin Human 100 ml @ 60 mls/hr UNSCH PRN IV 08/13/17 14:00 (NS Flush) 5 ml UNSCH PRN IV FLUSH 08/13/17 14:00 (Zofran Inj) 4 mg UNSCH PRN IV PUSH 08/13/17 14:00 (Tylenol) 650 mg UNSCH PRN PO 08/13/17 14:00 (Benadryl) 25 mg UNSCH PRN PO 08/13/17 14:00 (Nitrostat Sl) 0.4 mg UNSCH PRN SL 08/13/17 14:00 (Catapres) 0.1 mg UNSCH PRN PO 08/13/17 14:00 (Gelfoam 12 Mm/7 Mm Top) 1 foam UNSCH PRN TOP 08/13/17 14:00 08/15/17 12:26 Octreotide Acetate 500 mcg/ Sodium Chloride 500 ml @ 25 mls/hr Q20H IV 08/14/17 14:00 08/19/17 13:59 08/17/17 23:11 (Phoslo) 1,334 mg TID PO 08/15/17 13:00 08/18/17 17:58 (Epogen Inj) 10,000 units UNSCH PRN IV PUSH 08/16/17 10:15 08/19/17 12:21 (Diflucan) 100 mg DAILY PO 08/16/17 12:00 08/18/17 09:07 (SoluCORTEF INJ) 50 mg Q12HR IV PUSH 08/17/17 21:00 08/18/17 09:07 (Protonix) 40 mg Q12HR PO 08/18/17 21:00 08/18/17 21:13 (Gladis Cole) Physical Exam General Appearance: Well Developed, Well Nourished, No Acute Distress, Comfortable (Gladis Cole) Eyes Eye Exam: Sclera White (Gladis Cole) Pulmonary Resp Exam: Clear Bilaterally, Breath Sounds Equal, No Distress (Gladis Cole) Cardiology CV Exam: Regular, Normal Sinus Rhythm (Gladis Cole) Gastrointestinal/Abdomen GI Exam: Soft, Non-Tender (Gladis Cole) Integumentary Skin Exam: Clear, Warm (Gladis Cole) Extremeties Extremities Exam: No Edema (Gladis Cole) Neurologic Neuro Exam: Alert, Awake, Speech Clear, Moving All Extremities, Sedated (Gladis Cole) Psychiatric Psych Exam: Appropriate Responses (Gladis Cole) Assessment/Plan Discussed Condition With: Patient Problem List: (1) End-stage renal disease on hemodialysis ICD Codes: N18.6 - End stage renal disease; Z99.2 - Dependence on renal dialysis Status: Chronic Plan: s/p HD today. OK to be discharged from renal standpoint. Avoid gadolinium. Medication should be adjusted for his end-stage renal disease when indicated. (2) Complications, dialysis, catheter, mechanical ICD Codes: T82.49XA - Other complication of vascular dialysis catheter, initial encounter Status: Acute Plan: Hemodialysis PermCath removed. AV dialysis fistula appears to be working well. Blood cultures negative greater than 72 hours hours . It is possible his presentation was primarily related to GI bleed. (3) Anemia of renal disease ICD Codes: D63.1 - Anemia in chronic kidney disease Status: Chronic Plan: Epogen increased. I will continue Araelkin as an outpatient for management of anemia. (4) Esophageal varices determined by endoscopy ICD Codes: I85.00 - Esophageal varices without bleeding Plan: As far as I'm aware the patient has no known history of cirrhosis. Previous hepatitis profile negative. 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 (Gladis Cole) Plan The exam, history, and the medical decision-making described in the above note were completed with the assistance of the PA-Bailey. I reviewed and agree with the findings presented. I attest that I had a [id number] encounter with the patient and personally performed and documented my assessment and findings in the medical record. (Clarence Merlos MD) Gladis Cole Aug 19, 2017 13:13 Clarence Merlos MD Aug 20, 2017 15:23
[2017-08-19] MEDS: PANTOPRAZOLE SOD 40 MG DELAYED RELEASE TAB PO SCH ×2 (13:18→21:53)
[2017-08-19] MEDS: FLUCONAZOLE 100 MG TAB PO SCH (13:19)
[2017-08-19] MEDS: SODIUM CHLORIDE 0.9% FLUSH 10 ML FLUSH IV FLUSH SCH ×2 (13:20→21:53)
--- NOTE | 2017-08-19 15:48 | HHI.PR ---
Addendum To [facility] Progress Not Reason for addendum: Additonal documentation (was notified by the RN that the patient is still hypoglycemic- patient is asymptomatic however with persistent hypoglycemia- will hold the discharge. will resume IV steroid and will start on D5W with close monitoring of his blood sugar.plan was d/w the RN.) Flori Matthews MD Aug 19, 2017 15:48
[2017-08-19] MEDS ORDERED: DEXTROSE 5% IN WATE 1000ML INJ 1,000 ML IV SCH (16:00)
[2017-08-19] MEDS: DEXTROSE 50% IN WATER 50 ML VIAL(D50) IV PUSH PRN ×3 (16:27→20:39)
--- NOTE | 2017-08-19 18:30 | HHI.FPPN ---
Addendum to progress note ADDENDUM Reason for addendum: Additonal documentation Additional information S: [facility] called at 1756hours and Jenny Ortiz and Nicole responded. to 46YO male ESRD on HD who is reported to be hypoglycemic this afternoon. Nursing has had trouble getting his BS into normal range. At 1756 BS was 29; however, pt is sitting up in bed and conversant without dizziness, diaphoresis, numbness or tingling. O: Vital Signs During [facility]: T - 98.1, HR 82, BP 109/58, SP O2 not avail Date Time Temp Pulse Resp B/P (MAP) Pulse Ox O2 Delivery O2 Flow Rate FiO2 08/19/17 16:00 97.3 75 18 96/55 (69) 88 08/19/17 08:00 Room Air 08/18/17 20:06 3.00 08/17/17 10:03 100 GENERAL: Well-nourished, well-developed patient sitting up in bed and is conversant without s/s of severe hypoglycemia. SKIN: Warm and dry. Excoriations on his arms bilaterally HEAD: Normocephalic. Atraumatic. EYES: No scleral icterus. No injection or drainage. NECK: Supple, trachea midline. No JVD or lymphadenopathy. CARDIOVASCULAR: Regular rate and rhythm without murmurs, gallops, or rubs. RESPIRATORY: Breath sounds equal bilaterally. No accessory muscle use. Resting comfortably on 3L NC. GASTROINTESTINAL: Abdomen soft, non-tender, nondistended. EXTREMITIES: No cyanosis, or edema. Bilateral BKAs. NEUROLOGICAL: Awake, alert, and oriented x 3. Non-focal. A/P: 46YO male in NAD with hypoglycemia. -Frequent BS checks -Transfer to higher level of care -Hold pending discharge orders -D10 IVF @42ml/hr Jameel Rivera MD R1 Aug 19, 2017 18:30
[2017-08-19] MEDS: SODIUM CHLORIDE 23.4% INJ 154 MEQ in DEXTROSE 10% INJ 1,000 ML IV SCH (20:15)
[2017-08-20] VITALS (11 sets, daily range): BP systolic 100–124; BP diastolic 56–69; PULSE 44–76; RESP 16–18; TEMP 97.5–98.3; O2SAT 94–98
[2017-08-20] MEDS: MIDODRINE 5 MG TAB PO SCH ×3 (07:00→17:00)
[2017-08-20] MEDS: INSULIN NovoLIN REGULAR SUPPLEMENTAL SCALE SQ SCH (08:00)
[2017-08-20] MEDS: SODIUM CHLORIDE 0.9% FLUSH 10 ML FLUSH IV FLUSH SCH ×2 (08:58→20:27)
[2017-08-20] MEDS: CALCIUM ACETATE 667 MG CAP PO SCH ×3 (08:59→17:00)
[2017-08-20] MEDS: PANTOPRAZOLE SOD 40 MG DELAYED RELEASE TAB PO SCH ×2 (08:59→20:25)
[2017-08-20] MEDS: FLUCONAZOLE 100 MG TAB PO SCH (08:59)
[2017-08-20] MEDS: HYDROCORTISONE SOD SUCCINATE 100 MG VIAL IV PUSH SCH ×2 (08:59→20:27)
[2017-08-20] MEDS: DOCUSATE SODIUM 50 MG/SENNA 8.6 MG TAB PO SCH ×2 (09:00→20:26)
--- NOTE | 2017-08-20 10:14 | HHI.PR ---
Subjective Remarks Patient had been improving and was stable for discharge yesterday. However, after discharge was placed, patient became hypoglycemic. Discharge held secondary to hypoglycemia. Blood sugars have been stabilized with IV dextrose. Patient remains relatively low and is not yet stable for weaning off IV dextrose. Objective Vital Signs Date Time Temp Pulse Resp B/P (MAP) Pulse Ox O2 Delivery O2 Flow Rate FiO2 08/20/17 08:43 96 08/20/17 06:00 44 08/20/17 04:00 46 08/20/17 03:37 94 08/20/17 02:00 56 08/20/17 00:00 64 08/19/17 23:46 93 08/19/17 22:00 73 08/19/17 21:00 Room Air 08/19/17 20:30 118 08/19/17 18:00 98.1 82 20 109/58 (75) 90 08/19/17 16:00 97.3 75 18 96/55 (69) 88 08/19/17 13:15 97.6 61 18 109/59 (76) I/O 08/19/17 08/19/17 08/19/17 08/20/17 08/20/17 08/20/17 07:00 15:00 23:00 07:00 15:00 23:00 Intake Total 240 ml 720 ml Output Total 0 ml 2500 ml 0 ml Balance 240 ml -2500 ml 720 ml Intake Oral 240 ml 720 ml Output Urine Total 0 ml 0 ml Hemodialysis 2500 ml # Bowel Movements 0 Result Diagram: 08/18/17 0750 08/19/17 1459 Objective Remarks GENERAL: NAD, A&Ox3 HEAD: Normocephalic. NECK: Supple, trachea midline. No lymphadenopathy. EYES: No scleral icterus. No injection or drainage. CARDIOVASCULAR: Regular rate and rhythm without murmurs, gallops, or rubs. RESPIRATORY: Breath sounds equal bilaterally. No accessory muscle use. GASTROINTESTINAL: Abdomen soft, non-tender, nondistended. MUSCULOSKELETAL: No cyanosis, or edema. History bilateral [id number] amputation's. Right second/third finger amputations. SKIN: Warm and dry. Scars of right forearm NEURO: No focal neurological deficitis. 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 Admitted secondary to severe sepsis related to pneumonia. Improved, but discharge held secondary to hypoglycemia. Hypoglycemia May be related to depleted glycogen stores Continue IV dextrose Follow blood sugars for better stability prior to weaning off dextrose Patient will need to demonstrate stable blood sugars with only by mouth intake of sugar, prior to discharge Transfer out of ICU Anxiety disorder NOS Acute toxic metabolic encephalopathy Resolved Continue as needed alprazolam Severe sepsis History of bacteremia Sepsis Resolved tunneled vas cath removed 08/12. Will continue vancomycin/piperacillin/tazobactam/diflucan for now. Coronary artery disease status post stent PAD Chronic hypotension related to dialysis Clinically asymptomatic Continue midodrine Elevated AST Stable No further need to monitor Gastroesophageal reflux disease Bleeding Esophageal varices s/p banding gastritis Duodenal ulcers Multiple large erosions were found in the duodenal bulb and 2nd part duodenum Continue Protonix GI follow-up as an outpatient End-stage renal disease Lupus nephritis Hyperphosphatemia hemodialysis Tuesday/Tuesday and Tuesday Nephrology following Continue sevelamer 1600 mg 3 times a day for hyperphosphatemia Follow phosphate levels Continuation of care under nephrology as an outpatient Macrocytic anemia Anemia of chronic kidney disease Acute blood loss anemia Thrombocytopenia Hypercoagulable state Continue warfarin Lifelong anticoagulation SLE positive History bilateral jwniu-evi-vcaq amputation's Right second/third finger amputation continue supportive care Physical therapy 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 DVT prophylaxis Coumadin on hold due to active bleeding Resume Coumadin when stabilized Problem Qualifiers (1) Lupus (systemic lupus erythematosus): Qualified Codes: M32.15 - Tubulo-interstitial nephropathy in systemic lupus erythematosus Tavares Hanson MD Aug 20, 2017 10:14
[2017-08-20] MEDS: SODIUM CHLORIDE 23.4% INJ 154 MEQ in DEXTROSE 10% INJ 1,000 ML IV SCH (14:20)
--- NOTE | 2017-08-20 16:11 | HHI.NPPN ---
Subjective History of Present Illness This patient is a 46-year-old male with a history of end-stage renal disease, SLE, hypertension, peripheral vascular disease as well as secondary hyperparathyroidism of renal disease. Unfortunately the patient has had multiple dialysis accesses including dialysis shunts and dialysis catheters in the past complicated by access failure as well as infection. Patient now has very limited options for dialysis access. We were relying on a left femoral dialysis line for access. Fortunately vessel surgery was able to create a left arm AV dialysis fistula back in February. We have used the access for dialysis 3 and the patient was scheduled to have his PermCath removed this Tuesday however presented to the dialysis facility with lethargy and pyrexia. Sepsis imost likely recurrence of line infection most likely consideration. Since admission however noted to have GI bleed and upper endoscopy revealed severe gastritis, and duodenum and mention of large bleeding esophageal varices Interval History Patient seen no verbal complaints. Noted episode of hypoglycemia earlier. Objective Data Data 08/20/17 08/21/17 19:00 07:00 Intake Total 2105 ml Balance 2105 ml Intake Oral 708 ml IV Total 1397 ml # Bowel Movements 1 Vital Signs Date Time Temp Pulse Resp B/P (MAP) Pulse Ox O2 Delivery O2 Flow Rate FiO2 08/20/17 12:00 98.3 76 18 107/59 (75) 08/20/17 12:00 76 08/20/17 08:43 96 08/20/17 08:00 98.0 56 17 124/69 (87) 98 08/20/17 08:00 56 08/20/17 07:00 Room Air 98 08/20/17 06:00 44 08/20/17 04:00 46 08/20/17 03:37 94 08/20/17 02:00 56 08/20/17 00:00 64 08/19/17 23:46 93 08/19/17 22:00 73 08/19/17 21:00 Room Air 08/19/17 20:30 118 08/19/17 18:00 98.1 82 20 109/58 (75) 90 -: 08/18/17 0750 08/19/17 1459 Physical Exam General Appearance: Well Developed, Well Nourished, No Acute Distress, Comfortable Eyes Eye Exam: Sclera White Pulmonary Resp Exam: Clear Bilaterally, Breath Sounds Equal, No Distress Cardiology CV Exam: Regular, Normal Sinus Rhythm Gastrointestinal/Abdomen GI Exam: Soft, Non-Tender Integumentary Skin Exam: Clear, Warm Extremeties Extremities Exam: No Edema Neurologic Neuro Exam: Alert, Awake, Speech Clear, Moving All Extremities, Sedated Psychiatric Psych Exam: Appropriate Responses Assessment/Plan Discussed Condition With: Patient Problem List: (1) End-stage renal disease on hemodialysis ICD Codes: N18.6 - End stage renal disease; Z99.2 - Dependence on renal dialysis Status: Chronic Plan: OK to be discharged from renal standpoint. Patient had episodes of hypoglycemia during her recent admission etiology was uncertain. We'll try to refer the patient to an wood sawyer post discharge. No wood sawyer available in house. Patient was encouraged to maintain adequate dietary intake. Avoid gadolinium. Medication should be adjusted for his end-stage renal disease when indicated. (2) Complications, dialysis, catheter, mechanical ICD Codes: T82.49XA - Other complication of vascular dialysis catheter, initial encounter Status: Acute Plan: Hemodialysis PermCath removed. AV dialysis fistula appears to be working well. Blood cultures negative greater than 72 hours hours . It is possible his presentation was primarily related to GI bleed. (3) Anemia of renal disease ICD Codes: D63.1 - Anemia in chronic kidney disease Status: Chronic Plan: Epogen increased. I will continue Aranesp as an outpatient for management of anemia. (4) Esophageal varices determined by endoscopy ICD Codes: I85.00 - Esophageal varices without bleeding Plan: As far as I'm aware the patient has no known history of cirrhosis. Previous hepatitis profile negative. 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 Clarence Merlos MD Aug 20, 2017 16:11
[2017-08-21] VITALS (9 sets, daily range): BP systolic 105–122; BP diastolic 53–60; PULSE 52–67; RESP 16–20; TEMP 96.7–98.1; O2SAT 94–98
[2017-08-21] MEDS: MIDODRINE 5 MG TAB PO SCH ×3 (05:43→18:07)
[2017-08-21] MEDS: SODIUM CHLORIDE 23.4% INJ 154 MEQ in DEXTROSE 10% INJ 1,000 ML IV SCH ×3 (05:43→23:06)
[2017-08-21] MEDS: CALCIUM ACETATE 667 MG CAP PO SCH ×3 (08:11→18:00)
[2017-08-21] MEDS: PANTOPRAZOLE SOD 40 MG DELAYED RELEASE TAB PO SCH ×2 (08:11→21:21)
[2017-08-21] MEDS: FLUCONAZOLE 100 MG TAB PO SCH (08:11)
[2017-08-21] MEDS: DOCUSATE SODIUM 50 MG/SENNA 8.6 MG TAB PO SCH ×2 (08:11→21:21)
[2017-08-21] MEDS: HYDROCORTISONE SOD SUCCINATE 100 MG VIAL IV PUSH SCH ×2 (08:12→21:22)
[2017-08-21] MEDS: SODIUM CHLORIDE 0.9% FLUSH 10 ML FLUSH IV FLUSH SCH ×2 (08:13→21:22)
[2017-08-21 08:16] LABS: BASOPHIL % 0.4 % (0.0-2.0); EOSINOPHIL % 0.1 % (0.0-4.0); HEMATOCRIT 32.4 % (39.0-51.0); HEMO FLAGS DIFF FINAL; LYMPH % 11.9 % (9.0-44.0); LYMPHOCYTE # 0.7 TH/MM3 (1.0-4.8); MEAN CELL VOLUME 99.9 FL (80.0-100.0); MEAN CORPUSCULAR HGB CONC 32.1 % (32.0-36.0); NEUT % 79.6 % (16.0-70.0); PLATELET COUNT 206 TH/MM3 (150-450); RED BLOOD COUNT 3.24 MIL/MM3 (4.50-5.90); RED CELL DISTRIBUTION WIDTH 21.7 % (11.6-17.2); WHITE BLOOD COUNT 6.3 TH/MM3 (4.0-11.0)
[2017-08-21 08:50] LABS: ALKALINE PHOSPHATASE 58 U/L (45-117); ALT (GPT) 40 U/L (12-78); ANION GAP 14 MEQ/L (5-15); AST (GOT) 27 U/L (15-37); BICARBONATE 25.5 MEQ/L (21.0-32.0); BLOOD UREA NITROGEN 54 MG/DL (7-18); CHLORIDE 99 MEQ/L (98-107); GLOMERULAR FILTRATION RATE 7 ML/MIN (>89); POTASSIUM 3.8 MEQ/L (3.5-5.1); SODIUM (NA) 138 MEQ/L (136-145); TOTAL BILIRUBIN ADULT 0.3 MG/DL (0.2-1.0)
[2017-08-21] MEDS ORDERED: DEXTROSE 50% IN WATER 50 ML SYRINGE ONE ×2 (12:32→18:19)
--- NOTE | 2017-08-21 14:33 | HHI.PR ---
Subjective Remarks Hypoglycemia still remains. Patient weaned off IV dextrose temporarily and his blood sugars dropped into the 30s. He has no complaints. Objective Vital Signs Date Time Temp Pulse Resp B/P (MAP) Pulse Ox O2 Delivery O2 Flow Rate FiO2 08/21/17 12:00 97.6 61 18 105/58 (74) 97 08/21/17 10:00 52 08/21/17 09:00 94 Room Air Nasal Cannula 08/21/17 08:00 97.6 57 18 113/60 (77) 98 08/21/17 04:00 97.2 64 18 122/59 (80) 94 08/21/17 04:00 Room Air 08/21/17 02:44 96 21 08/21/17 00:00 Room Air 08/21/17 00:00 98.1 55 16 113/55 (74) 96 08/20/17 20:53 57 08/20/17 20:17 Room Air 08/20/17 20:00 97.7 62 16 100/56 (71) 95 08/20/17 16:00 97.5 63 18 104/65 (78) 97 I/O 08/20/17 08/20/17 08/20/17 08/21/17 08/21/17 08/21/17 07:00 15:00 23:00 07:00 15:00 23:00 Intake Total 720 ml 1350 ml 755 ml 1000 ml Output Total 0 ml Balance 720 ml 1350 ml 755 ml 1000 ml Intake Oral 720 ml 708 ml IV Total 1350 ml 47 ml 1000 ml Output Urine Total 0 ml # Bowel Movements 1 Result Diagram: 08/21/1771808/21/17718 Objective Remarks GENERAL: NAD, A&Ox3 HEAD: Normocephalic. NECK: Supple, trachea midline. No lymphadenopathy. EYES: No scleral icterus. No injection or drainage. CARDIOVASCULAR: Regular rate and rhythm without murmurs, gallops, or rubs. RESPIRATORY: Breath sounds equal bilaterally. No accessory muscle use. GASTROINTESTINAL: Abdomen soft, non-tender, nondistended. MUSCULOSKELETAL: No cyanosis, or edema. History bilateral [id number]-qge-[id number] amputation's. Right second/third finger amputations. SKIN: Warm and dry. Scars of right forearm NEURO: No focal neurological deficitis. 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 Admitted secondary to severe sepsis related to pneumonia. Improved, but discharge held secondary to hypoglycemia. Trial of IV dextrose resulted in recurrence of hypoglycemia. Patient not yet ready for discharge. Hypoglycemia Not yet improved May be related to depleted glycogen stores Continue IV dextrose Follow blood sugars for better stability prior to weaning off dextrose Patient will need to demonstrate stable blood sugars with only by mouth intake of sugar, prior to discharge Anxiety disorder NOS Acute toxic metabolic encephalopathy Resolved Continue as needed alprazolam Severe sepsis History of bacteremia Sepsis Resolved tunneled vas cath removed 08/12. Will continue vancomycin/piperacillin/tazobactam/diflucan for now. Coronary artery disease status post stent PAD Chronic hypotension related to dialysis Clinically asymptomatic Continue midodrine Elevated AST Stable No further need to monitor Gastroesophageal reflux disease Bleeding Esophageal varices s/p banding gastritis Duodenal ulcers Multiple large erosions were found in the duodenal bulb and 2nd part duodenum Continue Protonix GI follow-up as an outpatient End-stage renal disease Lupus nephritis Hyperphosphatemia hemodialysis Tuesday/Tuesday and Tuesday Nephrology following Continue sevelamer 1600 mg 3 times a day for hyperphosphatemia Follow phosphate levels Continuation of care under nephrology as an outpatient Macrocytic anemia Anemia of chronic kidney disease Acute blood loss anemia Thrombocytopenia Hypercoagulable state Continue warfarin Lifelong anticoagulation SLE positive History bilateral amhjm-exz-slem amputation's Right second/third finger amputation continue supportive care Physical therapy 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 DVT prophylaxis Coumadin on hold due to active bleeding Resume Coumadin when stabilized Problem Qualifiers (1) Lupus (systemic lupus erythematosus): Qualified Codes: M32.15 - Tubulo-interstitial nephropathy in systemic lupus erythematosus Tavares Hanson MD Aug 21, 2017 14:33
[2017-08-22] VITALS: BP 111/59; PULSE 56; RESP 20; TEMP 98.2; O2SAT 95
[2017-08-22 04:00] VITALS: BP 116/58; PULSE 60; RESP 20; TEMP 98; O2SAT 93
[2017-08-22 08:00] VITALS: BP 132/60; PULSE 69; RESP 20; TEMP 97.2
[2017-08-22] MEDS ORDERED: GLUCAGON 1 MG/ML VIAL IM PRN (08:30)
[2017-08-22] MEDS: MIDODRINE 5 MG TAB PO SCH ×3 (08:31→18:12)
[2017-08-22] MEDS: FLUCONAZOLE 100 MG TAB PO SCH (08:31)
[2017-08-22] MEDS: DOCUSATE SODIUM 50 MG/SENNA 8.6 MG TAB PO SCH ×2 (08:31→21:00)
[2017-08-22] MEDS: HYDROCORTISONE SOD SUCCINATE 100 MG VIAL IV PUSH SCH ×2 (08:32→21:59)
[2017-08-22] MEDS: CALCIUM ACETATE 667 MG CAP PO SCH ×3 (08:32→18:12)
[2017-08-22] MEDS: PANTOPRAZOLE SOD 40 MG DELAYED RELEASE TAB PO SCH ×2 (08:32→21:59)
[2017-08-22] MEDS: SODIUM CHLORIDE 0.9% FLUSH 10 ML FLUSH IV FLUSH SCH ×2 (08:32→22:00)
[2017-08-22] MEDS: DEXTROSE 50% IN WATER 50 ML VIAL(D50) IV PUSH PRN ×2 (08:50→09:10)
[2017-08-22 09:10] VITALS: O2SAT 93
[2017-08-22] MEDS ORDERED: DEXTROSE 10% IV SCH (09:30)
--- NOTE | 2017-08-22 10:31 | HHI.PR ---
Subjective Remarks Hypoglycemia down to 20 this morning. This was office Accu-Chek at the left hand. Patient has a history of coagulopathy, clots, and compromised blood flow related surgeries of the left arm. His left hand is cold. Blood draws have been occurring at the left arm and Accu-Cheks have been occurring in the left hand as he has dialysis-related grafts in the right upper arm. Hypoglycemia may be artificially low. Right-hand Accu-Chek shows a blood sugar of over 200 the same time of the left hand Accu-Chek shows about 20. This discrepancy may be the etiology for the low blood sugars and obtaining. Objective Vital Signs Date Time Temp Pulse Resp B/P (MAP) Pulse Ox O2 Delivery O2 Flow Rate FiO2 08/22/17 09:10 93 21 08/22/17 08:00 97.2 69 20 132/60 (84) 08/22/17 04:00 98.0 60 20 116/58 (77) 93 08/22/17 00:00 98.2 56 20 111/59 (76) 95 08/21/17 20:30 Room Air 08/21/17 20:06 67 08/21/17 20:00 97.9 65 20 108/53 (71) 94 08/21/17 16:00 96.7 63 18 107/58 (74) 96 08/21/17 12:00 97.6 61 18 105/58 (74) 97 I/O 08/21/17 08/21/17 08/21/17 08/22/17 08/22/17 08/22/17 07:00 15:00 23:00 07:00 15:00 23:00 Intake Total 1000 ml 1120 ml 1309 ml Output Total 500 ml Balance 1000 ml 620 ml 1309 ml Intake Oral 1120 ml 280 ml IV Total 1000 ml 1029 ml Output Urine Total 500 ml # Voids 0 # Bowel Movements 0 Result Diagram: 08/21/1719 08/22/17921 Objective Remarks GENERAL: NAD, A&Ox3 HEAD: Normocephalic. NECK: Supple, trachea midline. No lymphadenopathy. EYES: No scleral icterus. No injection or drainage. CARDIOVASCULAR: Regular rate and rhythm without murmurs, gallops, or rubs. RESPIRATORY: Breath sounds equal bilaterally. No accessory muscle use. GASTROINTESTINAL: Abdomen soft, non-tender, nondistended. MUSCULOSKELETAL: No cyanosis, or edema. History bilateral ryusk-npi-crxj amputation's. Right second/third finger amputations. SKIN: Warm and dry. Scars of right forearm NEURO: No focal neurological deficitis. 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 Admitted secondary to severe sepsis related to pneumonia. Discharge has been on hold secondary to hypoglycemia. We'll transition to only right hand Accu-Cheks for monitoring of blood sugars. If hypoglycemia is ruled out patient will be a candidate for discharge. Hypoglycemia Not yet improved May be related to depleted glycogen stores Continue IV dextrose Follow blood sugars for better stability prior to weaning off dextrose Patient will need to demonstrate stable blood sugars with only by mouth intake of sugar, prior to discharge Anxiety disorder NOS Acute toxic metabolic encephalopathy Resolved Continue as needed alprazolam Severe sepsis History of bacteremia Sepsis Resolved tunneled vas cath removed 08/12. Will continue vancomycin/piperacillin/tazobactam/diflucan for now. Coronary artery disease status post stent PAD Chronic hypotension related to dialysis Clinically asymptomatic Continue midodrine Elevated AST Stable No further need to monitor Gastroesophageal reflux disease Bleeding Esophageal varices s/p banding gastritis Duodenal ulcers Multiple large erosions were found in the duodenal bulb and 2nd part duodenum Continue Protonix GI follow-up as an outpatient End-stage renal disease Lupus nephritis Hyperphosphatemia hemodialysis Tuesday/Tuesday and Tuesday Nephrology following Continue sevelamer 1600 mg 3 times a day for hyperphosphatemia Follow phosphate levels Continuation of care under nephrology as an outpatient Macrocytic anemia Anemia of chronic kidney disease Acute blood loss anemia Thrombocytopenia Hypercoagulable state Continue warfarin Lifelong anticoagulation SLE positive History bilateral fwixa-hbp-yggq amputation's Right second/third finger amputation continue supportive care Physical therapy Chronic bradycardia 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 DVT prophylaxis Coumadin on hold due to active bleeding Resume Coumadin when stabilized Problem Qualifiers (1) Lupus (systemic lupus erythematosus): Qualified Codes: M32.15 - Tubulo-interstitial nephropathy in systemic lupus erythematosus Tavares Hanson MD Aug 22, 2017 10:31
--- NOTE | 2017-08-22 10:36 | HHI.NPPN ---
Subjective History of Present Illness This patient is a 46-year-old male with a history of end-stage renal disease, SLE, hypertension, peripheral vascular disease as well as secondary hyperparathyroidism of renal disease. Unfortunately the patient has had multiple dialysis accesses including dialysis shunts and dialysis catheters in the past complicated by access failure as well as infection. Patient now has very limited options for dialysis access. We were relying on a left femoral dialysis line for access. Fortunately vessel surgery was able to create a left arm AV dialysis fistula back in February. We have used the access for dialysis 3 and the patient was scheduled to have his PermCath removed this Tuesday however presented to the dialysis facility with lethargy and pyrexia. Sepsis imost likely recurrence of line infection most likely consideration. Since admission however noted to have GI bleed and upper endoscopy revealed severe gastritis, and duodenum and mention of large bleeding esophageal varices Interval History Patient noted to have had a low blood sugar earlier today but was asymptomatic and appears to be some discrepancy in Accu-Chek readings in different hands. Reading in the right hand was over 200 while the reading her left hand was low. Objective Data Data Vital Signs Date Time Temp Pulse Resp B/P (MAP) Pulse Ox O2 Delivery O2 Flow Rate FiO2 08/22/17 09:10 93 21 08/22/17 08:00 97.2 69 20 132/60 (84) 08/22/17 04:00 98.0 60 20 116/58 (77) 93 08/22/17 00:00 98.2 56 20 111/59 (76) 95 08/21/17 20:30 Room Air 08/21/17 20:06 67 08/21/17 20:00 97.9 65 20 108/53 (71) 94 08/21/17 16:00 96.7 63 18 107/58 (74) 96 08/21/17 12:00 97.6 61 18 105/58 (74) 97 -: 08/21/17 0719 08/22/17 0922 Physical Exam General Appearance: Well Developed, Well Nourished, No Acute Distress, Comfortable Eyes Eye Exam: Sclera White Pulmonary Resp Exam: Clear Bilaterally, Breath Sounds Equal, No Distress Cardiology CV Exam: Regular, Normal Sinus Rhythm Gastrointestinal/Abdomen GI Exam: Soft, Non-Tender Integumentary Skin Exam: Clear, Warm Extremeties Extremities Exam: No Edema Neurologic Neuro Exam: Alert, Awake, Speech Clear, Moving All Extremities, Sedated Psychiatric Psych Exam: Appropriate Responses Assessment/Plan Discussed Condition With: Patient Problem List: (1) End-stage renal disease on hemodialysis ICD Codes: N18.6 - End stage renal disease; Z99.2 - Dependence on renal dialysis Status: Chronic Plan: OK to be discharged from renal standpoint. Unsure of etiology discrepancy in blood sugar readings in hand. Patient was asymptomatic. Uncertain if they could be a vascular component contributing to low blood sugar reading. Dialysis today and if stable clear from renal point of view for discharge. Avoid gadolinium. Medication should be adjusted for his end-stage renal disease when indicated. (2) Complications, dialysis, catheter, mechanical ICD Codes: T82.49XA - Other complication of vascular dialysis catheter, initial encounter Status: Acute Plan: Hemodialysis PermCath removed. AV dialysis fistula appears to be working well. Blood cultures negative greater than 72 hours hours . It is possible his presentation was primarily related to GI bleed. (3) Anemia of renal disease ICD Codes: D63.1 - Anemia in chronic kidney disease Status: Chronic Plan: Epogen increased. I will continue Aranesp as an outpatient for management of anemia. (4) Esophageal varices determined by endoscopy ICD Codes: I85.00 - Esophageal varices without bleeding Plan: As far as I'm aware the patient has no known history of cirrhosis. Previous hepatitis profile negative. 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 Clarence Merlos MD Aug 22, 2017 10:36
[2017-08-22] MEDS: DEXTROSE 10% INJ 1,000 ML IV SCH ×2 (11:52→18:00)
[2017-08-22 12:00] VITALS: BP 124/62; PULSE 68; PULSE 71; RESP 20; TEMP 97.2; O2SAT 100
[2017-08-22] MEDS: EPOETIN ALFA 10,000 UNITS/ML VIAL IV PUSH PRN (15:57)
[2017-08-22] MEDS: ALBUMIN 25% INJ 100 ML IV PRN ×2 (16:09→16:30)
[2017-08-22 20:00] VITALS: BP 118/57; PULSE 57; PULSE 61; RESP 18; TEMP 97.5; O2SAT 95
[2017-08-23] VITALS (8 sets, daily range): BP systolic 105–149; BP diastolic 54–81; PULSE 48–82; RESP 16–24; TEMP 97.3–98.7; O2SAT 95–98
[2017-08-23] MEDS: DEXTROSE 10% INJ 1,000 ML IV SCH (02:00)
[2017-08-23] MEDS: MIDODRINE 5 MG TAB PO SCH ×3 (05:16→16:54)
[2017-08-23] MEDS: DEXTROSE 50% IN WATER 50 ML VIAL(D50) IV PUSH PRN ×2 (08:08→08:37)
[2017-08-23] MEDS: FLUCONAZOLE 100 MG TAB PO SCH (08:37)
[2017-08-23] MEDS: HYDROCORTISONE SOD SUCCINATE 100 MG VIAL IV PUSH SCH ×2 (08:37→20:45)
[2017-08-23] MEDS: PANTOPRAZOLE SOD 40 MG DELAYED RELEASE TAB PO SCH ×2 (08:37→20:46)
[2017-08-23] MEDS: CALCIUM ACETATE 667 MG CAP PO SCH ×3 (08:37→16:54)
[2017-08-23] MEDS: DOCUSATE SODIUM 50 MG/SENNA 8.6 MG TAB PO SCH ×2 (08:38→20:46)
[2017-08-23] MEDS: SODIUM CHLORIDE 0.9% FLUSH 10 ML FLUSH IV FLUSH SCH ×2 (08:38→20:45)
--- NOTE | 2017-08-23 13:04 | HHI.PR ---
Subjective Remarks Trial off D10. Patient's blood sugars are 50s up to 62 prior to lunch. He has no symptoms. Objective Vital Signs Date Time Temp Pulse Resp B/P (MAP) Pulse Ox O2 Delivery O2 Flow Rate FiO2 08/23/17 08:00 97.4 48 24 136/63 (87) 98 08/23/17 08:00 Room Air 08/23/17 08:00 53 08/23/17 04:00 97.9 74 18 149/68 (95) 95 08/23/17 00:00 97.9 54 18 119/63 (81) 95 08/22/17 20:00 97.5 57 18 118/57 (77) 95 08/22/17 20:00 Room Air 08/22/17 20:00 61 I/O 08/22/17 08/22/17 08/22/17 08/23/17 08/23/17 08/23/17 07:00 15:00 23:00 07:00 15:00 23:00 Intake Total 1309 ml 1038.5 ml 240 ml 360 ml Output Total 3000 ml 0 ml Balance 1309 ml 1038.5 ml -3000 ml 240 ml 360 ml Intake Oral 280 ml 240 ml IV Total 1029 ml 1038.5 ml 360 ml Output Urine Total 0 ml Hemodialysis 3000 ml # Voids 1 # Bowel Movements 1 0 Result Diagram: 08/21/1771808/22/17921 Objective Remarks GENERAL: NAD, A&Ox3 HEAD: Normocephalic. NECK: Supple, trachea midline. No lymphadenopathy. EYES: No scleral icterus. No injection or drainage. CARDIOVASCULAR: Regular rate and rhythm without murmurs, gallops, or rubs. RESPIRATORY: Breath sounds equal bilaterally. No accessory muscle use. GASTROINTESTINAL: Abdomen soft, non-tender, nondistended. MUSCULOSKELETAL: No cyanosis, or edema. History bilateral vyyjt-mkw-abcj amputation's. Right second/third finger amputations. SKIN: Warm and dry. Scars of right forearm NEURO: No focal neurological deficitis. 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 Admitted secondary to severe sepsis related to pneumonia. Discharge has been on hold secondary to hypoglycemia. Right hand Accu-Chek show hypoglycemia prior to lunch dosing. Discharge held. Insulin studies pending. Hypoglycemia Not yet improved May be related to depleted glycogen stores Continue IV dextrose Follow blood sugars for better stability prior to weaning off dextrose Patient will need to demonstrate stable blood sugars with only by mouth intake of sugar, prior to discharge Anxiety disorder NOS Acute toxic metabolic encephalopathy Resolved Continue as needed alprazolam Severe sepsis History of bacteremia Sepsis Resolved tunneled vas cath removed 08/12. Will continue vancomycin/piperacillin/tazobactam/diflucan for now. Coronary artery disease status post stent PAD Chronic hypotension related to dialysis Clinically asymptomatic Continue midodrine Elevated AST Stable No further need to monitor Gastroesophageal reflux disease Bleeding Esophageal varices s/p banding gastritis Duodenal ulcers Multiple large erosions were found in the duodenal bulb and 2nd part duodenum Continue Protonix GI follow-up as an outpatient End-stage renal disease Lupus nephritis Hyperphosphatemia hemodialysis Tuesday/Tuesday and Tuesday Nephrology following Continue sevelamer 1600 mg 3 times a day for hyperphosphatemia Follow phosphate levels Continuation of care under nephrology as an outpatient Macrocytic anemia Anemia of chronic kidney disease Acute blood loss anemia Thrombocytopenia Hypercoagulable state Continue warfarin Lifelong anticoagulation SLE positive History bilateral [id number]-rlc-[id number] amputation's Right second/third finger amputation continue supportive care Physical therapy 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 DVT prophylaxis Coumadin on hold due to active bleeding Resume Coumadin when stabilized Problem Qualifiers (1) Lupus (systemic lupus erythematosus): Qualified Codes: M32.15 - Tubulo-interstitial nephropathy in systemic lupus erythematosus Tavares Hanson MD Aug 23, 2017 13:04
[2017-08-23 13:33] LABS: AUTOMATED NEUTROPHIL # 7.8 TH/MM3 (1.8-7.7); BASOPHIL % 0.2 % (0.0-2.0); EOSINOPHIL % 0.1 % (0.0-4.0); HEMO FLAGS DIFF FINAL; LYMPHOCYTE # 0.4 TH/MM3 (1.0-4.8); MEAN CELL VOLUME 100.6 FL (80.0-100.0); MEAN CORPUSCULAR HEMOGLOBIN 31.6 PG (27.0-34.0); MEAN CORPUSCULAR HGB CONC 31.4 % (32.0-36.0); MONO % 2.6 % (0.0-8.0); NEUT % 92.1 % (16.0-70.0); PLATELET COUNT 222 TH/MM3 (150-450); RED BLOOD COUNT 3.67 MIL/MM3 (4.50-5.90); RED CELL DISTRIBUTION WIDTH 22.5 % (11.6-17.2); WHITE BLOOD COUNT 8.5 TH/MM3 (4.0-11.0)
[2017-08-23 13:55] LABS: ALKALINE PHOSPHATASE 59 U/L (45-117); ALT (GPT) 34 U/L (12-78); TOTAL BILIRUBIN ADULT 0.4 MG/DL (0.2-1.0)
[2017-08-23 14:00] LABS: ANION GAP 14 MEQ/L (5-15); AST (GOT) 20 U/L (15-37); BICARBONATE 24.3 MEQ/L (21.0-32.0); BLOOD UREA NITROGEN 59 MG/DL (7-18); CHLORIDE 99 MEQ/L (98-107); GLOMERULAR FILTRATION RATE 7 ML/MIN (>89); POTASSIUM 3.4 MEQ/L (3.5-5.1); SODIUM (NA) 137 MEQ/L (136-145)
[2017-08-23] MEDS: DEXTROSE 10% IN WATER 500 ML BAG IV SCH (16:17)
[2017-08-23] MEDS: ACETAMINOPHEN 325 MG TAB PO PRN (16:18)
[2017-08-24] VITALS: BP 111/55; PULSE 56; RESP 16; TEMP 97.4; O2SAT 95
[2017-08-24 04:00] VITALS: BP 120/57; PULSE 51; RESP 18; TEMP 97.2; O2SAT 95
[2017-08-24] MEDS: MIDODRINE 5 MG TAB PO SCH ×3 (06:13→17:50)
[2017-08-24] MEDS: SODIUM CHLORIDE 0.9% FLUSH 10 ML FLUSH IV FLUSH SCH ×2 (07:39→20:59)
[2017-08-24] MEDS: DOCUSATE SODIUM 50 MG/SENNA 8.6 MG TAB PO SCH ×2 (07:58→20:59)
[2017-08-24] MEDS: PANTOPRAZOLE SOD 40 MG DELAYED RELEASE TAB PO SCH ×2 (07:58→20:59)
[2017-08-24] MEDS: FLUCONAZOLE 100 MG TAB PO SCH (07:58)
[2017-08-24] MEDS: CALCIUM ACETATE 667 MG CAP PO SCH ×3 (07:58→18:48)
[2017-08-24] MEDS: HYDROCORTISONE SOD SUCCINATE 100 MG VIAL IV PUSH SCH ×2 (07:59→20:59)
[2017-08-24 08:00] VITALS: BP 122/58; PULSE 60; RESP 18; TEMP 97.4; O2SAT 96
[2017-08-24] MEDS: HYDROmorphone HCL PF 0.5 MG/0.5 ML SYRINGE IV PRN ×2 (08:12→19:17)
[2017-08-24 14:59] VITALS: BP 118/67; PULSE 93; RESP 17; TEMP 97.8; O2SAT 96
--- NOTE | 2017-08-24 16:26 | HHI.NPPN ---
Subjective History of Present Illness This patient is a 46-year-old male with a history of end-stage renal disease, SLE, hypertension, peripheral vascular disease as well as secondary hyperparathyroidism of renal disease. Unfortunately the patient has had multiple dialysis accesses including dialysis shunts and dialysis catheters in the past complicated by access failure as well as infection. Patient now has very limited options for dialysis access. We were relying on a left femoral dialysis line for access. Fortunately vessel surgery was able to create a left arm AV dialysis fistula back in February. We have used the access for dialysis 3 and the patient was scheduled to have his PermCath removed this Tuesday however presented to the dialysis facility with lethargy and pyrexia. Sepsis imost likely recurrence of line infection most likely consideration. Since admission however noted to have GI bleed and upper endoscopy revealed severe gastritis, and duodenum and mention of large bleeding esophageal varices Interval History Patient completed dialysis today. No verbal complaints. Objective Data Data Vital Signs Date Time Temp Pulse Resp B/P (MAP) Pulse Ox O2 Delivery O2 Flow Rate FiO2 08/24/17 14:59 97.8 93 17 118/67 (84) 96 08/24/17 08:00 97.4 60 18 122/58 (79) 96 08/24/17 04:00 97.2 51 18 120/57 (78) 95 08/24/17 00:00 97.4 56 16 111/55 (73) 95 08/23/17 20:00 50 08/23/17 20:00 Room Air 08/23/17 19:45 98.1 54 16 109/54 (72) 95 08/23/17 17:58 20 -: 08/23/17 1305 08/23/17 1305 Physical Exam General Appearance: Well Developed, Well Nourished, No Acute Distress, Comfortable Eyes Eye Exam: Sclera White Pulmonary Resp Exam: Clear Bilaterally, Breath Sounds Equal, No Distress Cardiology CV Exam: Regular, Normal Sinus Rhythm Gastrointestinal/Abdomen GI Exam: Soft, Non-Tender Integumentary Skin Exam: Clear, Warm Extremeties Extremities Exam: No Edema Neurologic Neuro Exam: Alert, Awake, Speech Clear, Moving All Extremities, Sedated Psychiatric Psych Exam: Appropriate Responses Assessment/Plan Discussed Condition With: Patient Problem List: (1) End-stage renal disease on hemodialysis ICD Codes: N18.6 - End stage renal disease; Z99.2 - Dependence on renal dialysis Status: Chronic Plan: Patient completed hemodialysis today per outpatient schedule. Discharge okay from renal point of view when clear with primary M.D. Avoid gadolinium. Medication should be adjusted for his end-stage renal disease when indicated. (2) Hypoglycemia ICD Codes: E16.2 - Hypoglycemia, unspecified Plan: Patient's hypoglycemia may be related to his end-stage renal disease as clearance of insulin is reduced in the setting of CKD. Patient may possibly also have subclinical hepatic disease coexisting given the fact that he has varices. C-peptide levels can be elevated in the setting of chronic kidney disease secondary to reduced clearance of insulin by the kidney as well as with insulinomas. (3) Complications, dialysis, catheter, mechanical ICD Codes: T82.49XA - Other complication of vascular dialysis catheter, initial encounter Status: Resolved Plan: Hemodialysis PermCath removed. AV dialysis fistula appears to be working well. Blood cultures negative greater than 72 hours hours . It is possible his presentation was primarily related to GI bleed. (4) Anemia of renal disease ICD Codes: D63.1 - Anemia in chronic kidney disease Status: Chronic Plan: Epogen increased. I will continue Aranesp as an outpatient for management of anemia. (5) Esophageal varices determined by endoscopy ICD Codes: I85.00 - Esophageal varices without bleeding Plan: As far as I'm aware the patient has no known history of cirrhosis. Previous hepatitis profile negative. 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 Clarence Merlos MD Aug 24, 2017 16:26
[2017-08-24] MEDS ORDERED: HEPARIN SODIUM - IV 10,000 UNITS/10 ML VIAL IV PUSH ONE (17:00)
--- NOTE | 2017-08-24 17:02 | HHI.PR ---
Subjective Remarks Insulin level is elevated. Further insulin studies pending. Renal disease may distort values but elevated insulin level could also reflect an insulinoma. MRI of abdomen pending. Patient complains of left arm swelling. He's been off Coumadin secondary to GI bleed. Hemoglobin has recently been stable. Patient complains of pain and swelling at the left arm. Objective Vital Signs Date Time Temp Pulse Resp B/P (MAP) Pulse Ox O2 Delivery O2 Flow Rate FiO2 08/24/17 14:59 97.8 93 17 118/67 (84) 96 08/24/17 08:00 97.4 60 18 122/58 (79) 96 08/24/17 04:00 97.2 51 18 120/57 (78) 95 08/24/17 00:00 97.4 56 16 111/55 (73) 95 08/23/17 20:00 50 08/23/17 20:00 Room Air 08/23/17 19:45 98.1 54 16 109/54 (72) 95 08/23/17 17:58 20 I/O 08/23/17 08/23/17 08/23/17 08/24/17 08/24/17 08/24/17 07:00 15:00 23:00 07:00 15:00 23:00 Intake Total 240 ml 360 ml 520 ml 480 ml Output Total 0 ml 900 ml Balance 240 ml 360 ml -380 ml 480 ml Intake Oral 240 ml 520 ml 480 ml IV Total 360 ml Output Urine Total 0 ml 900 ml # Voids 0 # Bowel Movements 0 0 0 Result Diagram: 08/23/17 1305 08/23/17 1305 Objective Remarks GENERAL: NAD, A&Ox3 HEAD: Normocephalic. NECK: Supple, trachea midline. No lymphadenopathy. EYES: No scleral icterus. No injection or drainage. CARDIOVASCULAR: Regular rate and rhythm without murmurs, gallops, or rubs. RESPIRATORY: Breath sounds equal bilaterally. No accessory muscle use. GASTROINTESTINAL: Abdomen soft, non-tender, nondistended. MUSCULOSKELETAL: No cyanosis, or edema. History bilateral elaup-qna-gett amputation's. Right second/third finger amputations. SKIN: Warm and dry. Scars of right forearm NEURO: No focal neurological deficitis. 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 Admitted secondary to severe sepsis related to pneumonia. Discharge has been on hold secondary to hypoglycemia. Right hand Accu-Chek show hypoglycemia prior to lunch dosing. Discharge held. Insulin studies show elevations. Insulinoma workup. MRI of abdomen and pelvis. Swelling at left upper extremity. Ultrasound of left upper extremity to evaluate for clot. Heparin drip initiated prophylactically for suspicion of DVT. Bridge heparin to Coumadin. Hypoglycemia Not yet improved May be related to depleted glycogen stores Continue IV dextrose Follow blood sugars for better stability prior to weaning off dextrose Patient will need to demonstrate stable blood sugars with only by mouth intake of sugar, prior to discharge Anxiety disorder NOS Acute toxic metabolic encephalopathy Resolved Continue as needed alprazolam Severe sepsis History of bacteremia Sepsis Resolved tunneled vas cath removed 08/12. Will continue vancomycin/piperacillin/tazobactam/diflucan for now. Coronary artery disease status post stent PAD Chronic hypotension related to dialysis Clinically asymptomatic Continue midodrine Elevated AST Stable No further need to monitor Gastroesophageal reflux disease Bleeding Esophageal varices s/p banding gastritis Duodenal ulcers Multiple large erosions were found in the duodenal bulb and 2nd part duodenum Continue Protonix GI follow-up as an outpatient End-stage renal disease Lupus nephritis Hyperphosphatemia hemodialysis Tuesday/Tuesday and Tuesday Nephrology following Continue sevelamer 1600 mg 3 times a day for hyperphosphatemia Follow phosphate levels Continuation of care under nephrology as an outpatient Macrocytic anemia Anemia of chronic kidney disease Acute blood loss anemia Thrombocytopenia Hypercoagulable state Coumadin on hold for now (this had been on hold secondary to GI bleed) Obtain ultrasound of left arm Heparin drip Lifelong anticoagulation SLE positive History bilateral twmht-wng-tyse amputation's Right second/third finger amputation continue supportive care Physical therapy 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 DVT prophylaxis Coumadin on hold due to active bleeding Resume Coumadin when stabilized Problem Qualifiers (1) Lupus (systemic lupus erythematosus): Qualified Codes: M32.15 - Tubulo-interstitial nephropathy in systemic lupus erythematosus Tavares Hanson MD Aug 24, 2017 17:02
[2017-08-24 18:09] LABS: HEMATOCRIT 35.9 % (39.0-51.0); MEAN CELL VOLUME 98.9 FL (80.0-100.0); MEAN CORPUSCULAR HGB CONC 32.3 % (32.0-36.0); PLATELET COUNT 88 TH/MM3 (150-450); RED BLOOD COUNT 3.63 MIL/MM3 (4.50-5.90); RED CELL DISTRIBUTION WIDTH 22.2 % (11.6-17.2); WHITE BLOOD COUNT 19.3 TH/MM3 (4.0-11.0)
[2017-08-24 18:12] LABS: REVIEW FLAG FINAL
[2017-08-24 18:21] LABS: APTT (PATIENT) 22.8 SEC (24.3-30.1); INTERNATIONAL NORMALIZED RATIO 1.1 RATIO; PROTHROMBIN TIME - PATIENT 11.7 SEC (9.8-11.6)
[2017-08-24 20:00] VITALS: BP_SYST 85; BP_SYST 94; BP_DIAS 48; BP_DIAS 50; PULSE 102; PULSE 95; RESP 18; TEMP 98.6; O2SAT 94
[2017-08-24] MEDS: HEPARIN-D5W 25,000 U/250 ML 250 ML IV PRN (21:20)
[2017-08-24] MEDS: ACETAMINOPHEN/HYDROcodone 325 MG/10 MG TAB PO PRN (23:50)
[2017-08-25] VITALS (7 sets, daily range): BP systolic 104–147; BP diastolic 52–69; PULSE 66–91; RESP 20–21; TEMP 97.6–99.4; O2SAT 92–94
--- NOTE | 2017-08-25 00:35 | RADRPT ---
EXAM DATE/TIME: 08/24/2017 23:03 [facility] COMPARISON: No previous studies available for comparison. INDICATIONS : Left arm swelling and pain. MEDICAL HISTORY : Chronic obstructive pulmonary disease. Myocardial infarction. Congestive heart failure. Coronary artery disease. Lupus. Deep vein thrombosis. Kidney failure. Dialysis. Blood transfusion. MRSA . SURGICAL HISTORY : Arteriovenous shunt. Coronary stent. Right arm fistula. Bilateral below the knee amputations. Rig ht hand, two fingers amputated. Vas catheter, left thigh. ENCOUNTER: Initial ACUITY: 1 day PAIN SCORE: 9/10 LOCATION: Left arm. FINDINGS: There is spontaneous flow documented in the brachial, basilic, axillary, and subclavian veins. There is a small amount of non occlusive thrombus in the cephalic vein. The vessels are compressible and au gmentation response is documented. No filling defects are seen. The flow is phasic with respiration . Direction of flow in the jugular vein is caudal. CONCLUSION: Small amount of non occlusive thrombus in the cephalic vein otherwise unremarkable st udy. Very impressive soft tissue edema in the subcutaneous fat. Ehsan Archibald MD on August 25, 2017 at 0:32 Board Certified Radiologist. This report was verified electronically.
[2017-08-25] MEDS: HYDROmorphone HCL PF 0.5 MG/0.5 ML SYRINGE IV PRN ×4 (01:44→23:10)
[2017-08-25] MEDS: ACETAMINOPHEN/HYDROcodone 325 MG/10 MG TAB PO PRN ×4 (04:03→21:17)
[2017-08-25 04:57] LABS: APTT (PATIENT) 59.7 SEC (24.3-30.1)
[2017-08-25 05:04] LABS: BICARBONATE 25.5 MEQ/L (21.0-32.0); POTASSIUM 4.6 MEQ/L (3.5-5.1)
[2017-08-25] MEDS: MIDODRINE 5 MG TAB PO SCH ×3 (06:33→17:30)
[2017-08-25] MEDS: DEXTROSE 10% IN WATER 500 ML BAG IV SCH (06:40)
[2017-08-25] MEDS ORDERED: IOHEXOL 350 MG/ML 50 ML BTL (for RAD DIAG) OTHER ONE (07:27)
[2017-08-25] MEDS: CALCIUM ACETATE 667 MG CAP PO SCH ×3 (08:59→17:31)
[2017-08-25] MEDS: FLUCONAZOLE 100 MG TAB PO SCH (09:00)
[2017-08-25] MEDS: DOCUSATE SODIUM 50 MG/SENNA 8.6 MG TAB PO SCH ×2 (09:00→21:05)
[2017-08-25] MEDS: HYDROCORTISONE SOD SUCCINATE 100 MG VIAL IV PUSH SCH ×2 (09:00→21:06)
[2017-08-25] MEDS: PANTOPRAZOLE SOD 40 MG DELAYED RELEASE TAB PO SCH ×2 (09:00→21:05)
[2017-08-25] MEDS: SODIUM CHLORIDE 0.9% FLUSH 10 ML FLUSH IV FLUSH SCH ×2 (09:01→21:07)
--- NOTE | 2017-08-25 10:56 | HHI.PR ---
Subjective Remarks Blood sugar levels remain relatively low for a diabetic on D10, he would not be anticipated to tolerate any wean at this point. Work up for insulinoma ongoing , MRI pending. Left arm swelling may be from IV infiltration, not a high clot burden and no evidence of obstruction at the left upper extremity. Objective Vital Signs Date Time Temp Pulse Resp B/P (MAP) Pulse Ox O2 Delivery O2 Flow Rate FiO2 08/25/17 08:00 97.6 82 20 135/63 (87) 92 08/25/17 04:00 98.2 76 20 117/60 (79) 93 08/25/17 00:00 97.7 80 20 117/57 (77) 94 08/24/17 20:00 95 08/24/17 20:00 98.6 102 18 85/48 (60) 94 94/50 (65) 08/24/17 20:00 Nasal Cannula 2.00 08/24/17 14:59 97.8 93 17 118/67 (84) 96 I/O 08/24/17 08/24/17 08/24/17 08/25/17 08/25/17 08/25/17 07:00 15:00 23:00 07:00 15:00 23:00 Intake Total 480 ml 380 ml 820 ml Output Total 0 ml Balance 480 ml 380 ml 820 ml Intake Oral 480 ml 380 ml 320 ml IV Total 500 ml Output Urine Total 0 ml # Voids 0 1 # Bowel Movements 0 1 0 Result Diagram: 08/24/17 1745 08/25/17 0342 Objective Remarks GENERAL: NAD, A&Ox3 HEAD: Normocephalic. NECK: Supple, trachea midline. No lymphadenopathy. EYES: No scleral icterus. No injection or drainage. CARDIOVASCULAR: Regular rate and rhythm without murmurs, gallops, or rubs. RESPIRATORY: Breath sounds equal bilaterally. No accessory muscle use. GASTROINTESTINAL: Abdomen soft, non-tender, nondistended. MUSCULOSKELETAL: No cyanosis, or edema. History bilateral rrbpw-yrt-pmee amputation's. Right second/third finger amputations. SKIN: Warm and dry. Scars of right forearm NEURO: No focal neurological deficitis. 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 Admitted secondary to severe sepsis related to pneumonia. Discharge has been on hold secondary to hypoglycemia. Right hand Accu-Chek show hypoglycemia prior to lunch dosing. Discharge held. Insulin studies show elevations. Insulinoma workup ongoing. MRI pending. No occlusive thrombus left upper extremity. He has small clots in this arm which is chronic for him. He is on heparin drip at this point. Deferring resumption of Coumadin for possible need of surgery for insulinoma. IV team consulted for vascular access if this is not an option he may need central line. Hypoglycemia Not yet improved May be related to depleted glycogen stores Continue IV dextrose Follow blood sugars for better stability prior to weaning off dextrose Patient will need to demonstrate stable blood sugars with only by mouth intake of sugar, prior to discharge Anxiety disorder NOS Acute toxic metabolic encephalopathy Resolved Continue as needed alprazolam Severe sepsis History of bacteremia Sepsis Resolved tunneled vas cath removed 08/12. Will continue vancomycin/piperacillin/tazobactam/diflucan for now. Coronary artery disease status post stent PAD Chronic hypotension related to dialysis Clinically asymptomatic Continue midodrine Elevated AST Stable No further need to monitor Gastroesophageal reflux disease Bleeding Esophageal varices s/p banding gastritis Duodenal ulcers Multiple large erosions were found in the duodenal bulb and 2nd part duodenum Continue Protonix GI follow-up as an outpatient End-stage renal disease Lupus nephritis Hyperphosphatemia hemodialysis Tuesday/Tuesday and Tuesday Nephrology following Continue sevelamer 1600 mg 3 times a day for hyperphosphatemia Follow phosphate levels Continuation of care under nephrology as an outpatient Macrocytic anemia Anemia of chronic kidney disease Acute blood loss anemia Thrombocytopenia Hypercoagulable state Coumadin on hold for now (this had been on hold secondary to GI bleed) Obtain ultrasound of left arm Heparin drip Lifelong anticoagulation SLE positive History bilateral ytjff-bdu-fqei amputation's Right second/third finger amputation continue supportive care Physical therapy 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
[2017-08-25] MEDS ORDERED: LORazepam 2 MG/ML VIAL IV PUSH PRN (11:00)
--- NOTE | 2017-08-25 14:44 | PD.RAD ---
Post Procedure Progress Note Pre Procedure Diagnosis: (1) End-stage renal disease on hemodialysis Post Procedure Diagnosis: (1) ESRD (end stage renal disease) on dialysis Procedure Date: Aug 25, 2017 Supervising Radiologist: Tavares Ventura Estimated blood loss: none Anesthesia: Local Plan of Activity Patient to Unit: Nursing Unit Patient Condition: Poor Additional Comments: Central line placed via the left groin. Line was placed in a venous collateral, As such, the course will be altered on the KUB. Line position verified by contrast injection. catheter flushes and aspirates well The iliac veins and IVC are occluded, DVT in left arm, both IJ occluded. AV fistula in right arm. Catheter is OK for use. See PACS Report for procedural detail/treatment Tavares Ventura MD Aug 25, 2017 14:44
[2017-08-25] MEDS ORDERED: SODIUM CHLORIDE 0.9% FLUSH 10 ML FLUSH IV FLUSH PRN (14:45)
--- NOTE | 2017-08-25 15:31 | RADRPT ---
EXAM DATE/TIME: 08/25/2017 14:47 [facility] COMPARISON: VENOGRAM, LEFT LEG, August 25, 2017, 0:00. INDICATIONS : Patient presents with end-stage renal disease in need of central line placement. MEDICAL HISTORY : Lupus Nephritis ESRD on hemodialysis Pulmonary embolism SVC thrombus PAD GERD Anemia CAD Hyperphosphatemia Asthma SURGICAL HISTORY : Bilateral BKA Bilateral upper extremity AVF Multiple dialysis catheter placement and removal ENCOUNTER: Subsequent ACUITY: 2 weeks PAIN SCORE: 10/10 LOCATION: Left Arm FLUORO TIME: 11.4 minutes IMAGE SERIES: 2 CONTRAST: 5 cc Omnipaque (iohexol) 350 ACCESS: Left Vein DEVICE(S): 1.) 7 Malian triple lumen 20 cm ABX coated catheter Filmaster Central Line PROCEDURE : 1. Ultrasound guided venipuncture. 2. Fluoroscopic guidance. 3. Central line placement. Clinical history: The patient is a long-term dialysis patient with known central venous occlusion. At present, the ruddy ent has DVT in the left upper arm. There is an AV fistula within the right arm. The patient has under gone previous stenting of the inferior vena cava and has had numerous indwelling permacath placed via the groin due to lack of access in the upper extremities. Prior to the procedure the patient was examined with ultrasound. Both jugular veins are occluded. The right common femoral vein was occluded. The left common femoral vein was patent for a short segment. The risks, benefits and alternatives to the procedure were explained and verbal and written consent w as obtained. The site was prepped in sterile fashion. Full sterile technique was used, including ca p, mask, sterile gloves and gown and a large sterile sheet. Hand hygiene and 2% chlorhexidine prep w as utilized per protocol for cutaneous antisepsis with appropriate dry time for site. Sterile gel an d sterile probe cover were utilized for ultrasound guidance. The skin and subcutaneous tissues were anesthetized with 10 cc of 1% lidocaine. The left common femor al vein was accessed under direct ultrasound visualization using a micropuncture technique. The wire could only be advanced for short segment. 34 dilator was placed. A small injection of contrast confir med complete occlusion of the iliac venous system with several large collaterals. The largest collateral was selected. A 0.035 angled Glidewire was advanced into the largest collatera l vein. A 7 Malian antibiotic impregnated line was advanced over a Glidewire and into position. A sma ll injection of contrast confirmed placement into large collateral deep within the pelvis. Since the catheter was placed via the groin and the patient is somewhat mobile as well as the high pr essure nature of the venous flow due to the central venous occlusion the decision was made to affix t he catheter in place with sutures as this could become dislodged. Prolene sutures were used to decrea se infection risk. The patient tolerated the procedure well and there were no complications. CONCLUSION: Uncomplicated line placement as above. Tavares Ventura MD on August 25, 2017 at 15:25 Board Certified Radiologist. This report was verified electronically.
[2017-08-25] MEDS: DEXTROSE 50% IN WATER 50 ML VIAL(D50) IV PUSH PRN (17:00)
[2017-08-25 18:17] LABS: APTT (PATIENT) 44.3 SEC (24.3-30.1)
[2017-08-25] MEDS: HEPARIN-D5W 25,000 U/250 ML 250 ML IV PRN (19:13)
[2017-08-25 23:53] LABS: INSULIN AUTO ANTIBODIES LESS THAN 0.4 U/mL (<0.4)
[2017-08-25 23:56] LABS: APTT (PATIENT) 58.1 SEC (24.3-30.1)
[2017-08-26] VITALS (9 sets, daily range): BP systolic 136–166; BP diastolic 63–70; PULSE 65–97; RESP 18–22; TEMP 98–99.1; O2SAT 93–97
[2017-08-26] MEDS: ACETAMINOPHEN/HYDROcodone 325 MG/10 MG TAB PO PRN ×3 (02:55→21:13)
[2017-08-26] MEDS: SODIUM CHLORIDE 0.9% FLUSH 10 ML FLUSH IV FLUSH PRN (04:04)
[2017-08-26] MEDS: HYDROmorphone HCL PF 0.5 MG/0.5 ML SYRINGE IV PRN ×2 (04:04→17:26)
[2017-08-26 06:19] LABS: APTT (PATIENT) 60.3 SEC (24.3-30.1)
[2017-08-26] MEDS: DEXTROSE 10% IN WATER 500 ML BAG IV SCH ×2 (06:40→17:26)
[2017-08-26] MEDS: MIDODRINE 5 MG TAB PO SCH ×3 (06:41→17:25)
[2017-08-26] MEDS: FLUCONAZOLE 100 MG TAB PO SCH (08:39)
[2017-08-26] MEDS: PANTOPRAZOLE SOD 40 MG DELAYED RELEASE TAB PO SCH ×2 (08:39→21:13)
[2017-08-26] MEDS: CALCIUM ACETATE 667 MG CAP PO SCH ×3 (08:39→17:25)
[2017-08-26] MEDS: DOCUSATE SODIUM 50 MG/SENNA 8.6 MG TAB PO SCH ×2 (08:39→21:13)
[2017-08-26] MEDS: DEXTROSE 50% IN WATER 50 ML VIAL(D50) IV PUSH PRN ×2 (08:40→14:35)
[2017-08-26] MEDS: SODIUM CHLORIDE 0.9% FLUSH 10 ML FLUSH IV FLUSH SCH ×3 (08:40→21:00)
[2017-08-26] MEDS: HYDROCORTISONE SOD SUCCINATE 100 MG VIAL IV PUSH SCH (08:41)
--- NOTE | 2017-08-26 09:49 | HHI.PR ---
Subjective Remarks Abdominal ultrasound pending to screen for insulinoma. Blood sugars remained relatively low despite D10. Not stable for discharge. Objective Vital Signs Date Time Temp Pulse Resp B/P (MAP) Pulse Ox O2 Delivery O2 Flow Rate FiO2 08/26/17 04:00 98.2 82 22 166/70 (102) 93 08/26/17 03:00 86 08/26/17 00:00 99.1 84 20 142/63 (89) 94 08/25/17 23:00 84 08/25/17 20:00 99.4 91 21 104/52 (69) 94 08/25/17 19:00 94 Room Air 08/25/17 16:00 97.8 79 20 138/66 (90) 94 08/25/17 12:00 98.3 66 20 147/69 (95) 94 I/O 08/25/17 08/25/17 08/25/17 08/26/17 08/26/17 08/26/17 07:00 15:00 23:00 07:00 15:00 23:00 Intake Total 820 ml 480 ml 0 ml Output Total 0 ml 0 ml Balance 820 ml 480 ml 0 ml Intake Oral 320 ml 480 ml 0 ml IV Total 500 ml Output Urine Total 0 ml 0 ml # Bowel Movements 0 0 Result Diagram: 08/24/17 1745 08/25/17 0342 Objective Remarks GENERAL: NAD, A&Ox3 HEAD: Normocephalic. NECK: Supple, trachea midline. No lymphadenopathy. EYES: No scleral icterus. No injection or drainage. CARDIOVASCULAR: Regular rate and rhythm without murmurs, gallops, or rubs. RESPIRATORY: Breath sounds equal bilaterally. No accessory muscle use. GASTROINTESTINAL: Abdomen soft, non-tender, nondistended. MUSCULOSKELETAL: No cyanosis, or edema. History bilateral lxphr-txc-[id number] amputation's. Right second/third finger amputations. SKIN: Warm and dry. Scars of right forearm NEURO: No focal neurological deficitis. 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 Admitted secondary to severe sepsis related to pneumonia. Discharge has been on hold secondary to hypoglycemia. Right hand Accu-Chek show hypoglycemia prior to lunch dosing. Discharge held. Insulin studies show elevations. Insulinoma workup ongoing. MRI pending. No occlusive thrombus left upper extremity. He has small clots in this arm which is chronic for him. He is on heparin drip at this point. Deferring resumption of Coumadin for possible need of surgery for insulinoma. Central line placement yesterday. Patient refused MRI and will have an abdominal ultrasound to screen for any masses which may indicate insulinoma. Hypoglycemia Not yet improved May be related to depleted glycogen stores Continue IV dextrose Follow blood sugars for better stability prior to weaning off dextrose Patient will need to demonstrate stable blood sugars with only by mouth intake of sugar, prior to discharge Anxiety disorder NOS Acute toxic metabolic encephalopathy Resolved Continue as needed alprazolam Severe sepsis History of bacteremia Sepsis Resolved tunneled vas cath removed 08/12. Will continue vancomycin/piperacillin/tazobactam/diflucan for now. Coronary artery disease status post stent PAD Chronic hypotension related to dialysis Clinically asymptomatic Continue midodrine Elevated AST Stable No further need to monitor Gastroesophageal reflux disease Bleeding Esophageal varices s/p banding gastritis Duodenal ulcers Multiple large erosions were found in the duodenal bulb and 2nd part duodenum Continue Protonix GI follow-up as an outpatient End-stage renal disease Lupus nephritis Hyperphosphatemia hemodialysis Tuesday/Tuesday and Tuesday Nephrology following Continue sevelamer 1600 mg 3 times a day for hyperphosphatemia Follow phosphate levels Continuation of care under nephrology as an outpatient Macrocytic anemia Anemia of chronic kidney disease Acute blood loss anemia Thrombocytopenia Hypercoagulable state Coumadin on hold for now (this had been on hold secondary to GI bleed) Obtain ultrasound of left arm Heparin drip Lifelong anticoagulation SLE positive History bilateral ntlcr-[id number]-[id number] amputation's Right second/third finger amputation continue supportive care Physical therapy 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 DVT prophylaxis Coumadin on hold due to active bleeding Resume Coumadin when stabilized Problem Qualifiers (1) Lupus (systemic lupus erythematosus): Qualified Codes: M32.15 - Tubulo-interstitial nephropathy in systemic lupus erythematosus Tavares Hanson MD Aug 26, 2017 09:49
--- NOTE | 2017-08-26 09:55 | RADRPT ---
EXAM DATE/TIME: 08/26/2017 08:06 [facility] COMPARISON: No previous studies available for comparison. INDICATIONS : Increased lab values. MEDICAL HISTORY : Chronic obstructive pulmonary disease. Cerebrovascular accident. Myocardial infarction. Congesti ve heart failure. Lupus. Deep vein thrombosis. Kidney failure. Arthritis. MRSA. SURGICAL HISTORY : Coronary stent. Arteriovenous shunt. Bilateral below the knee amputation. Right hand, two fingers amputated. Vascath left thigh. ENCOUNTER: Initial ACUITY: 1 day PAIN SCORE: 5/10 LOCATION: Abdomen. MEASUREMENTS: LIVER: 15.1 cm length COMMON DUCT: 5 mm RIGHT KIDNEY: 9.7 x 4.8 x 5.1 cm LEFT KIDNEY: 8.0 x 3.7 x 4.2 cm SPLEEN: 9.4 cm length AORTA: 1.8cm maximal FINDINGS: LIVER: Normal echotexture without focal lesion or ductal dilatation. COMMON DUCT: No intraluminal mass or stone visualized. GALLBLADDER: Contains several stones and sludge, demonstrates no wall thickening or pericholecystic fluid. PANCREAS: The visualized portions are within normal limits. Duct appears prominent measuring 4-5 mm. RIGHT KIDNEY: Echogenic. No hydronephrosis, stone or mass. LEFT KIDNEY: Echogenic and not well-visualized. No hydronephrosis, stone or mass. SPLEEN: No focal lesion. AORTA: Non aneurysmal. IVC: Within normal limits. CONCLUSION: 1. Kidneys are echogenic which can be seen with medical renal disease. 2. Cholelithiasis. 3. Mild prominence of the main pancreatic duct. Deyvn Hickey MD on August 26, 2017 at 9:50 Board Certified Radiologist. This report was verified electronically.
[2017-08-26] MEDS: GELATIN 12 MM/7 MM FOAM TOP PRN (12:50)
[2017-08-26] MEDS: SODIUM CHLOR 0.9% 1000 ML INJ 1,000 ML OTHER PRN (12:50)
[2017-08-26] MEDS: EPOETIN ALFA 10,000 UNITS/ML VIAL IV PUSH PRN (12:50)
--- NOTE | 2017-08-26 15:41 | HHI.NPPN ---
Subjective History of Present Illness This patient is a 46-year-old male with a history of end-stage renal disease, SLE, hypertension, peripheral vascular disease as well as secondary hyperparathyroidism of renal disease. Unfortunately the patient has had multiple dialysis accesses including dialysis shunts and dialysis catheters in the past complicated by access failure as well as infection. Patient now has very limited options for dialysis access. We were relying on a left femoral dialysis line for access. Fortunately vessel surgery was able to create a left arm AV dialysis fistula back in February. We have used the access for dialysis 3 and the patient was scheduled to have his PermCath removed this Tuesday however presented to the dialysis facility with lethargy and pyrexia. Sepsis imost likely recurrence of line infection most likely consideration. Since admission however noted to have GI bleed and upper endoscopy revealed severe gastritis, and duodenum and mention of large bleeding esophageal varices Interval History No verbal complaints. Objective Data Data 08/26/17 08/27/17 19:00 07:00 Output Total 3500 ml Balance -3500 ml Hemodialysis 3500 ml Vital Signs Date Time Temp Pulse Resp B/P (MAP) Pulse Ox O2 Delivery O2 Flow Rate FiO2 08/26/17 12:00 98.0 97 18 136/66 (89) 97 08/26/17 08:00 Nasal Cannula 2.00 08/26/17 08:00 65 08/26/17 08:00 98.0 77 18 146/63 (90) 95 08/26/17 04:00 98.2 82 22 166/70 (102) 93 08/26/17 03:00 86 08/26/17 00:00 99.1 84 20 142/63 (89) 94 08/25/17 23:00 84 08/25/17 20:00 99.4 91 21 104/52 (69) 94 08/25/17 19:00 94 Room Air 08/25/17 16:00 97.8 79 20 138/66 (90) 94 -: 08/24/17 1745 08/25/17 0342 Physical Exam General Appearance: Well Developed, Well Nourished, No Acute Distress, Comfortable Eyes Eye Exam: Sclera White Pulmonary Resp Exam: Clear Bilaterally, Breath Sounds Equal, No Distress Cardiology CV Exam: Regular, Normal Sinus Rhythm Gastrointestinal/Abdomen GI Exam: Soft, Non-Tender Integumentary Skin Exam: Clear, Warm Extremeties Extremities Exam: No Edema, Moderate Edema (2+ pitting edema involving the hips presacral area. 3+ pitting edema involving his left upper extremity.), Pitting Edema, Dependent Edema Neurologic Neuro Exam: Alert, Awake, Speech Clear, Moving All Extremities, Sedated Psychiatric Psych Exam: Appropriate Responses Assessment/Plan Discussed Condition With: Patient Problem List: (1) End-stage renal disease on hemodialysis ICD Codes: N18.6 - End stage renal disease; Z99.2 - Dependence on renal dialysis Status: Chronic Plan: Patient completed his dialysis today however still has significant fluid retention. We'll schedule an additional extra treatment for fluid removal tomorrow per orders. Avoid gadolinium. Medication should be adjusted for his end-stage renal disease when indicated. (2) Hypoglycemia ICD Codes: E16.2 - Hypoglycemia, unspecified Plan: Patient's hypoglycemia may be related to his end-stage renal disease as clearance of insulin is reduced in the setting of CKD. Patient may possibly also have subclinical hepatic disease coexisting given the fact that he has varices. C-peptide levels can be elevated in the setting of chronic kidney disease secondary to reduced clearance of insulin by the kidney as well as with insulinomas. (3) Complications, dialysis, catheter, mechanical ICD Codes: T82.49XA - Other complication of vascular dialysis catheter, initial encounter Status: Resolved Plan: Hemodialysis PermCath removed. AV dialysis fistula appears to be working well. Blood cultures negative greater than 72 hours hours . It is possible his presentation was primarily related to GI bleed. (4) Anemia of renal disease ICD Codes: D63.1 - Anemia in chronic kidney disease Status: Chronic Plan: Epogen increased. I will continue Aranesp as an outpatient for management of anemia. (5) Esophageal varices determined by endoscopy ICD Codes: I85.00 - Esophageal varices without bleeding Plan: As far as I'm aware the patient has no known history of cirrhosis. Previous hepatitis profile negative. 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 Clarence Merlos MD Aug 26, 2017 15:41
[2017-08-26] MEDS ORDERED: DILTIAZEM 125 MG/NS 100 ML IV PRN ×2 (23:15)
[2017-08-27] VITALS (7 sets, daily range): BP systolic 117–154; BP diastolic 58–68; PULSE 74–110; RESP 16–20; TEMP 97.2–99.4; O2SAT 90–92
[2017-08-27] MEDS: ACETAMINOPHEN/HYDROcodone 325 MG/10 MG TAB PO PRN ×4 (03:49→21:48)
[2017-08-27] MEDS: HYDROmorphone HCL PF 0.5 MG/0.5 ML SYRINGE IV PRN ×5 (05:04→18:34)
[2017-08-27] MEDS: SODIUM CHLORIDE 0.9% FLUSH 10 ML FLUSH IV FLUSH PRN ×2 (05:05)
[2017-08-27 05:36] LABS: HEMATOCRIT 30.2 % (39.0-51.0); MEAN CELL VOLUME 96.9 FL (80.0-100.0); MEAN CORPUSCULAR HEMOGLOBIN 31.3 PG (27.0-34.0); MEAN CORPUSCULAR HGB CONC 32.3 % (32.0-36.0); PLATELET COUNT 80 TH/MM3 (150-450); RED BLOOD COUNT 3.11 MIL/MM3 (4.50-5.90); WHITE BLOOD COUNT 7.4 TH/MM3 (4.0-11.0)
[2017-08-27 05:40] LABS: REVIEW FLAG FINAL
[2017-08-27 05:48] LABS: APTT (PATIENT) 44.8 SEC (24.3-30.1)
[2017-08-27] MEDS: MIDODRINE 5 MG TAB PO SCH ×3 (06:17→17:34)
[2017-08-27] MEDS: DEXTROSE 10% INJ 1,000 ML IV SCH ×2 (07:25→21:20)
[2017-08-27] MEDS: SODIUM CHLORIDE 0.9% FLUSH 10 ML FLUSH IV FLUSH SCH ×3 (07:41→21:14)
[2017-08-27] MEDS: PANTOPRAZOLE SOD 40 MG DELAYED RELEASE TAB PO SCH ×3 (09:00→21:14)
[2017-08-27] MEDS: DOCUSATE SODIUM 50 MG/SENNA 8.6 MG TAB PO SCH ×3 (09:00→21:14)
[2017-08-27] MEDS: HYDROCORTISONE 10 MG TAB PO SCH ×2 (09:00→13:26)
[2017-08-27] MEDS: FLUCONAZOLE 100 MG TAB PO SCH ×2 (09:00→13:26)
[2017-08-27] MEDS: CALCIUM ACETATE 667 MG CAP PO SCH ×3 (09:00→17:34)
[2017-08-27] MEDS: HEPARIN-D5W 25,000 U/250 ML 250 ML IV PRN (09:17)
--- NOTE | 2017-08-27 13:42 | HHI.NPPN ---
Subjective History of Present Illness This patient is a 46-year-old male with a history of end-stage renal disease, SLE, hypertension, peripheral vascular disease as well as secondary hyperparathyroidism of renal disease. Unfortunately the patient has had multiple dialysis accesses including dialysis shunts and dialysis catheters in the past complicated by access failure as well as infection. Patient now has very limited options for dialysis access. We were relying on a left femoral dialysis line for access. Fortunately vessel surgery was able to create a left arm AV dialysis fistula back in February. We have used the access for dialysis 3 and the patient was scheduled to have his PermCath removed this Tuesday however presented to the dialysis facility with lethargy and pyrexia. Sepsis imost likely recurrence of line infection most likely consideration. Since admission however noted to have GI bleed and upper endoscopy revealed severe gastritis, and duodenum and mention of large bleeding esophageal varices Interval History Just back from HD for extra session 3L UF 08/26 and 3.5L 08/27 On D10 for glucose maintenance Complaining of L arm pain US reviewed from 08/24 Review of Systems Cardiovascular Cardiac: Edema Objective Data Data 08/27/17 08/28/17 19:00 07:00 Output Total 3500 ml Balance -3500 ml Hemodialysis 3500 ml Vital Signs Date Time Temp Pulse Resp B/P (MAP) Pulse Ox O2 Delivery O2 Flow Rate FiO2 08/27/17 08:00 74 08/27/17 04:00 97.7 79 16 130/63 (85) 92 08/27/17 00:39 16 08/27/17 00:00 98.0 84 16 147/68 (94) 92 08/26/17 23:00 74 08/26/17 20:00 98.5 86 19 137/64 (88) 93 08/26/17 19:00 98 Nasal Cannula 2.00 08/26/17 18:00 98.0 97 18 136/66 (89) 97 08/26/17 17:42 97 Nasal Cannula 2.00 -: 08/27/17 0500 08/25/17 0342 Imaging Last Impressions Abdomen Ultrasound 08/26/17 0000 Signed Impressions: Service Date/Time: Saturday, August 26, 2017 08:06 - CONCLUSION: 1. Kidneys are echogenic which can be seen with medical renal disease. 2. Cholelithiasis. 3. Mild prominence of the main pancreatic duct. Devyn Hickey MD Central Venous Line 08/25/17 0000 Signed Impressions: Service Date/Time: August 14:47 - CONCLUSION: Uncomplicated line placement as above. Tavares Ventura MD Upper Extremity Ultrasound 08/24/17 0000 Signed Impressions: Service Date/Time: Thursday, August 24, 2017 23:03 - CONCLUSION: Small amount of non occlusive thrombus in the cephalic vein otherwise unremarkable study. Very impressive soft tissue edema in the subcutaneous fat. Ehsan Archibald MD Chest X-Ray 08/12/17 0910 Signed Impressions: Service Date/Time: Saturday, August 12, 2017 09:25 - CONCLUSION: 1. Stable scattered patchiness bilaterally. Chon Nye MD Additional Information 08/27/17 08/27/17 08/28/17 15:00 23:00 07:00 Output Total 3500 ml Balance -3500 ml Hemodialysis 3500 ml Medication Review Current Medications Medications (Trade) Dose Ordered Sig/Nohelia Route Start Time Stop Time Status Last Admin (NS Flush) 2 ml UNSCH PRN IV FLUSH 08/12/17 11:45 08/27/17 05:05 (NS Flush) 2 ml BID IV FLUSH 08/12/17 21:00 08/26/17 08:40 (Tylenol) 650 mg Q6H PRN PO 08/12/17 11:45 08/23/17 16:18 (Zofran Inj) 4 mg Q6H PRN IV PUSH 08/12/17 11:45 08/15/17 13:52 (Albuterol Neb) 2.5 mg Q2HR NEB PRN INH 08/12/17 11:45 Miscellaneous Information 1 Q361D XX 08/12/17 11:45 (Angelika-Colace) 1 tab BID PO 08/12/17 21:00 08/27/17 13:24 (Milk Of Magnesia Liq) 30 ml Q12H PRN PO 08/12/17 11:45 (Senokot) 17.2 mg Q12H PRN PO 08/12/17 11:45 08/27/17 13:22 (Dulcolax Supp) 10 mg DAILY PRN RECTAL 08/12/17 11:45 (Lactulose Liq) 30 ml DAILY PRN PO 08/12/17 11:45 (Proamatine) 10 mg TID@07,12,17 PO 08/12/17 12:00 08/27/17 13:27 (Xanax) 1 mg Q8H PRN PO 08/12/17 12:00 08/12/17 23:53 Phenylephrine HCl 160 mg/Dextrose 500 ml @ 7.5 mls/hr TITRATE PRN IV 08/12/17 12:00 08/12/17 13:26 (Brethine Inj) 1 mg UNSCH PRN SQ 08/12/17 12:00 08/13/17 03:13 Sodium Chloride 1,000 ml @ 0 mls/hr Q0M PRN OTHER 08/13/17 13:53 08/26/17 12:50 Sodium Chloride 1,000 ml @ 200 mls/hr Q5H PRN IV 08/13/17 13:53 Sodium Chloride 1,000 ml @ 0 mls/hr Q0M PRN OTHER 08/13/17 13:53 (Mannitol Inj) 12.5 gm UNSCH PRN IV 08/13/17 14:00 Albumin Human 100 ml @ 60 mls/hr UNSCH PRN IV 08/13/17 14:00 08/22/17 16:30 (NS Flush) 5 ml UNSCH PRN IV FLUSH 08/13/17 14:00 (Zofran Inj) 4 mg UNSCH PRN IV PUSH 08/13/17 14:00 (Tylenol) 650 mg UNSCH PRN PO 08/13/17 14:00 08/24/17 16:02 (Benadryl) 25 mg UNSCH PRN PO 08/13/17 14:00 (Nitrostat Sl) 0.4 mg UNSCH PRN SL 08/13/17 14:00 (Catapres) 0.1 mg UNSCH PRN PO 08/13/17 14:00 (Gelfoam 12 Mm/7 Mm Top) 1 foam UNSCH PRN TOP 08/13/17 14:00 08/26/17 12:50 (Phoslo) 1,334 mg TID PO 08/15/17 13:00 08/27/17 13:27 (Epogen Inj) 10,000 units UNSCH PRN IV PUSH 08/16/17 10:15 08/26/17 12:50 (Diflucan) 100 mg DAILY PO 08/16/17 12:00 08/27/17 13:26 (Protonix) 40 mg Q12HR PO 08/18/17 21:00 08/27/17 13:24 (D50w (Vial) Inj) 50 ml UNSCH PRN IV PUSH 08/22/17 08:30 08/26/17 14:35 (Glucagon Inj) 1 mg STAT PRN IM 08/22/17 08:30 Heparin Sodium/ Dextrose 250 ml @ 14 mls/hr TITRATE PRN IV 08/24/17 17:00 08/27/17 09:17 (Dilaudid Pf Inj) 0.5 mg Q4H PRN IV 08/24/17 17:00 08/27/17 09:13 (Belcher 5-325 Mg) 1 tab Q4H PRN PO 08/24/17 17:00 (Belcher 10-325 Mg) 1 tab Q4H PRN PO 08/24/17 17:00 08/27/17 13:23 (NS Flush) DAILY IV FLUSH 08/26/17 09:00 08/27/17 09:17 (NS Flush) UNSCH PRN IV FLUSH 08/25/17 14:45 (Cortef) 10 mg DAILY PO 08/27/17 09:00 08/27/17 13:26 Dextrose 1,000 ml @ 75 mls/hr [id number] IV 08/27/17 08:00 08/27/17 07:25 Physical Exam General Appearance: Well Developed, Well Nourished, No Acute Distress, Comfortable Eyes Eye Exam: Sclera White Pulmonary Resp Exam: Clear Bilaterally, Breath Sounds Equal, No Distress Cardiology CV Exam: Regular, Normal Sinus Rhythm Gastrointestinal/Abdomen GI Exam: Soft, Non-Tender Integumentary Skin Exam: Clear, Warm Extremeties Extremities Exam: No Edema, Moderate Edema (2+ pitting edema involving the hips presacral area. 3+ pitting edema involving his left upper extremity.), Pitting Edema, Dependent Edema Neurologic Neuro Exam: Alert, Awake, Speech Clear, Moving All Extremities, Sedated Psychiatric Psych Exam: Appropriate Responses Assessment/Plan Discussed Condition With: Patient Problem List: (1) End-stage renal disease on hemodialysis ICD Codes: N18.6 - End stage renal disease; Z99.2 - Dependence on renal dialysis Status: Chronic Plan: s/p 2 sessions of HD [id number] Edema on sacrum and hips improved, but still significant in LUE. Advised to keep arm elevated. Will place on fluid restriction as he is on D10. Next HD on Tuesday with 4L UF if tolerated. (2) Hypoglycemia ICD Codes: E16.2 - Hypoglycemia, unspecified Plan: Patient's hypoglycemia may be related to his end-stage renal disease as clearance of insulin is reduced in the setting of CKD. Patient may possibly also have subclinical hepatic disease coexisting given the fact that he has varices. C-peptide levels can be elevated in the setting of chronic kidney disease secondary to reduced clearance of insulin by the kidney as well as with insulinomas. (3) Complications, dialysis, catheter, mechanical ICD Codes: T82.49XA - Other complication of vascular dialysis catheter, initial encounter Status: Resolved Plan: Hemodialysis PermCath removed. AV dialysis fistula appears to be working well. Blood cultures negative greater than 72 hours hours . It is possible his presentation was primarily related to GI bleed. (4) Anemia of renal disease ICD Codes: D63.1 - Anemia in chronic kidney disease Status: Chronic Plan: Epo with HD (5) Esophageal varices determined by endoscopy ICD Codes: I85.00 - Esophageal varices without bleeding Plan: As far as I'm aware the patient has no known history of cirrhosis. Previous hepatitis profile negative. 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 Gladis Cole Aug 27, 2017 13:42
--- NOTE | 2017-08-27 16:46 | HHI.PR ---
Subjective Remarks Abdominal ultrasound is negative for any evidence of insulinoma. Patient still dependent on D10. We discussed MRI again. He says he may try this tomorrow. He complains of left arm swelling and pain. Possible phlebitis. Objective Vital Signs Date Time Temp Pulse Resp B/P (MAP) Pulse Ox O2 Delivery O2 Flow Rate FiO2 08/27/17 16:00 96 08/27/17 12:00 91 08/27/17 08:00 74 08/27/17 04:00 97.7 79 16 130/63 (85) 92 08/27/17 00:39 16 08/27/17 00:00 98.0 84 16 147/68 (94) 92 08/26/17 23:00 74 08/26/17 20:00 98.5 86 19 137/64 (88) 93 08/26/17 19:00 98 Nasal Cannula 2.00 08/26/17 18:00 98.0 97 18 136/66 (89) 97 08/26/17 17:42 97 Nasal Cannula 2.00 I/O 08/26/17 08/26/17 08/26/17 08/27/17 08/27/17 08/27/17 07:00 15:00 23:00 07:00 15:00 23:00 Intake Total 0 ml 480 ml Output Total 0 ml 3500 ml 0 ml 3500 ml Balance 0 ml -3500 ml 480 ml -3500 ml Intake Oral 0 ml 480 ml Output Urine Total 0 ml 0 ml Hemodialysis 3500 ml 3500 ml # Bowel Movements 0 0 Result Diagram: 08/27/17 0500 08/25/17 0342 Objective Remarks GENERAL: NAD, A&Ox3 HEAD: Normocephalic. NECK: Supple, trachea midline. No lymphadenopathy. EYES: No scleral icterus. No injection or drainage. CARDIOVASCULAR: Regular rate and rhythm without murmurs, gallops, or rubs. RESPIRATORY: Breath sounds equal bilaterally. No accessory muscle use. GASTROINTESTINAL: Abdomen soft, non-tender, nondistended. MUSCULOSKELETAL: No cyanosis. History bilateral [id number] amputation's. Right second/third finger amputations. Left arm edema. SKIN: Warm and dry. Scars of right forearm NEURO: No focal neurological deficitis. 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 Admitted secondary to severe sepsis related to pneumonia. Discharge has been on hold secondary to hypoglycemia. Right hand Accu-Chek show hypoglycemia prior to lunch dosing. Discharge held. Insulin studies show elevations. Insulinoma workup ongoing. MRI pending. No occlusive thrombus left upper extremity. He has small clots in this arm which is chronic for him. He is on heparin drip at this point. Deferring resumption of Coumadin for possible need of surgery for insulinoma. Central line placement on 08/25/17. Patient may be agreeable to MRI tomorrow, we'll discuss further then. Rocephin started empirically for left arm swelling and possible phlebitis. Hypoglycemia Not yet improved May be related to depleted glycogen stores Continue IV dextrose Follow blood sugars for better stability prior to weaning off dextrose Patient will need to demonstrate stable blood sugars with only by mouth intake of sugar, prior to discharge Anxiety disorder NOS Acute toxic metabolic encephalopathy Resolved Continue as needed alprazolam Severe sepsis History of bacteremia Sepsis Resolved tunneled vas cath removed 08/12. Will continue vancomycin/piperacillin/tazobactam/diflucan for now. Coronary artery disease status post stent PAD Chronic hypotension related to dialysis Clinically asymptomatic Continue midodrine Elevated AST Stable No further need to monitor Gastroesophageal reflux disease Bleeding Esophageal varices s/p banding gastritis Duodenal ulcers Multiple large erosions were found in the duodenal bulb and 2nd part duodenum Continue Protonix GI follow-up as an outpatient End-stage renal disease Lupus nephritis Hyperphosphatemia hemodialysis Tuesday/Tuesday and Tuesday Nephrology following Continue sevelamer 1600 mg 3 times a day for hyperphosphatemia Follow phosphate levels Continuation of care under nephrology as an outpatient Macrocytic anemia Anemia of chronic kidney disease Acute blood loss anemia Thrombocytopenia Hypercoagulable state Coumadin on hold for now (this had been on hold secondary to GI bleed) Obtain ultrasound of left arm Heparin drip Lifelong anticoagulation SLE positive History bilateral meejz-rym-dhhi amputation's Right second/third finger amputation continue supportive care Physical therapy 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 DVT prophylaxis Coumadin on hold due to active bleeding Resume Coumadin when stabilized Problem Qualifiers (1) Lupus (systemic lupus erythematosus): Qualified Codes: M32.15 - Tubulo-interstitial nephropathy in systemic lupus erythematosus Tavares Hanson MD Aug 27, 2017 16:46
[2017-08-27] MEDS ORDERED: cefTRIAXone INJ 1,000 MG in SODIUM CHLORIDE 0.9% INJ 100 ML IV SCH (17:00)
[2017-08-28] VITALS (9 sets, daily range): BP systolic 101–123; BP diastolic 50–60; PULSE 92–120; RESP 18–20; TEMP 98.8–102.6; O2SAT 84–97
[2017-08-28] MEDS: ACETAMINOPHEN 325 MG TAB PO PRN ×2 (00:21→05:50)
[2017-08-28] MEDS: HEPARIN-D5W 25,000 U/250 ML 250 ML IV PRN ×2 (00:24→19:14)
--- NOTE | 2017-08-28 04:10 | RADRPT ---
EXAM DATE/TIME: 08/28/2017 01:05 [facility] COMPARISON: CHEST SINGLE AP, August 12, 2017, 9:25. INDICATIONS : Fever MEDICAL HISTORY : Congestive heart failure. Arthritis. Lupus. CVA. Coronary artery disease. SURGICAL HISTORY : Arteriovenous shunt. Coronary stent. Right arm fistula. Bilateral ENCOUNTER: Initial ACUITY: 3 days PAIN SCORE: 0/10 LOCATION: Bilateral chest FINDINGS: There are patchy interstitial infiltrates in the region of costophrenic angles bilaterally. Infiltra alexandre on the right side are similar to prior and haven't increased in prominence on the left side. The re is also blunting of the costophrenic angles bilaterally suggesting small associated bilateral pleu ral effusions. The heart is normal in size. CONCLUSION: Bilateral costophrenic angle interstitial infiltrates, stable on the right and increased on the left. Probable associated small bilateral pleural effusions. Narendra Ralph MD on August 28, 2017 at 1:21 Board Certified Radiologist. This report was verified electronically.
[2017-08-28 04:18] LABS: ALKALINE PHOSPHATASE 75 U/L (45-117); ALT (GPT) 16 U/L (12-78); ANION GAP 11 MEQ/L (5-15); AST (GOT) 16 U/L (15-37); BICARBONATE 31.4 MEQ/L (21.0-32.0); BLOOD UREA NITROGEN 34 MG/DL (7-18); CHLORIDE 91 MEQ/L (98-107); GLOMERULAR FILTRATION RATE 11 ML/MIN (>89); POTASSIUM 3.4 MEQ/L (3.5-5.1); SODIUM (NA) 133 MEQ/L (136-145)
[2017-08-28 04:19] LABS: TOTAL BILIRUBIN ADULT 0.7 MG/DL (0.2-1.0)
[2017-08-28 04:20] LABS: AUTOMATED NEUTROPHIL # 7.1 TH/MM3 (1.8-7.7); BASOPHIL % 0.5 % (0.0-2.0); EOSINOPHIL # 0.1 TH/MM3 (0-0.4); EOSINOPHIL % 0.7 % (0.0-4.0); HEMATOCRIT 31.4 % (39.0-51.0); LYMPH % 2.1 % (9.0-44.0); LYMPHOCYTE # 0.2 TH/MM3 (1.0-4.8); MEAN CELL VOLUME 96.2 FL (80.0-100.0); MEAN CORPUSCULAR HEMOGLOBIN 32.1 PG (27.0-34.0); MEAN CORPUSCULAR HGB CONC 33.3 % (32.0-36.0); MONO % 1.7 % (0.0-8.0); PLATELET COUNT 95 TH/MM3 (150-450); RED BLOOD COUNT 3.26 MIL/MM3 (4.50-5.90); RED CELL DISTRIBUTION WIDTH 20.1 % (11.6-17.2); WHITE BLOOD COUNT 7.5 TH/MM3 (4.0-11.0)
[2017-08-28 04:25] LABS: HEMO FLAGS AUTO DIFF
[2017-08-28 04:26] LABS: BANDS 12 % (0-6); EOSINOPHILS 1 % (0-4); POLYS (SEG NEUTROPHILS) 81 % (16-70); WBC DIFF SAMPLE 100
[2017-08-28 04:27] LABS: DOHLE BODIES PRESENT (NONE SEEN); HOWELL-JOLLY BODIES PRESENT (NONE SEEN); KERATOCYTES OCC (NORMAL); PLATELET ESTIMATE SMEAR LOW (NORMAL); PLATELET MORPHOLOGY NORMAL (NORMAL); TARGET CELLS 1+ (NORMAL)
[2017-08-28 04:28] LABS: SCAN/DIFF FINAL DIFF MANUAL
[2017-08-28] MEDS ORDERED: POTASSIUM CHLORIDE 25 MEQ EFFERVESCENT TAB PO ONE (04:45)
[2017-08-28] MEDS ORDERED: Vancomycin Consult Pharmacy 1 EA OTHER SCH (05:30)
[2017-08-28] MEDS ORDERED: VANCOMYCIN 1,000 MG/NS 250 ML IV ONE ×2 (05:30)
[2017-08-28] MEDS: MIDODRINE 5 MG TAB PO SCH ×3 (05:50→18:41)
[2017-08-28 07:33] LABS: HEMATOCRIT 29.7 % (39.0-51.0); MEAN CELL VOLUME 96.2 FL (80.0-100.0); MEAN CORPUSCULAR HEMOGLOBIN 31.5 PG (27.0-34.0); MEAN CORPUSCULAR HGB CONC 32.8 % (32.0-36.0); PLATELET COUNT 104 TH/MM3 (150-450); RED BLOOD COUNT 3.09 MIL/MM3 (4.50-5.90); RED CELL DISTRIBUTION WIDTH 20.6 % (11.6-17.2); REVIEW FLAG FINAL; WHITE BLOOD COUNT 8.1 TH/MM3 (4.0-11.0)
[2017-08-28 07:42] LABS: APTT (PATIENT) 43.8 SEC (24.3-30.1)
[2017-08-28] MEDS: CEFEPIME INJ 2,000 MG in SODIUM CHLORIDE 0.9% INJ 100 ML IV SCH (07:49)
[2017-08-28 08:08] LABS: BICARBONATE 28.2 MEQ/L (21.0-32.0); POTASSIUM 3.7 MEQ/L (3.5-5.1)
[2017-08-28] MEDS ORDERED: VANCOMYCIN 500 MG/NS 100 ML IV ONE ×2 (10:00)
[2017-08-28] MEDS: DOCUSATE SODIUM 50 MG/SENNA 8.6 MG TAB PO SCH ×2 (10:09→21:09)
[2017-08-28] MEDS: HYDROCORTISONE 10 MG TAB PO SCH (10:09)
[2017-08-28] MEDS: PANTOPRAZOLE SOD 40 MG DELAYED RELEASE TAB PO SCH ×2 (10:10→21:09)
[2017-08-28] MEDS: CALCIUM ACETATE 667 MG CAP PO SCH ×3 (10:10→18:41)
[2017-08-28] MEDS: FLUCONAZOLE 100 MG TAB PO SCH (10:10)
[2017-08-28] MEDS: SODIUM CHLORIDE 0.9% FLUSH 10 ML FLUSH IV FLUSH SCH ×3 (10:10→21:13)
--- NOTE | 2017-08-28 11:07 | HHI.IDPN ---
Subjective Subjective Remarks Patient is a 46-year-old male, presented to the hospital for further evaluation of hypotension. He has known end-stage renal disease, and gets hemodialysis every Tuesday and Tuesday. He was in the dialysis clinic and he was found to be febrile, hypotensive, and tachycardic. He completed his treatment, and he was advised to go to the hospital for further evaluation and treatment. Patient currently has been having fevers since his been in the emergency room. He is also complaining of being sick to his stomach, and has had some nausea. Denies any abdominal pain. He denies any respiratory complaint. Patient has known central venous occlusion, and the only patent venous access for dialysis has been in his left femoral groin. During his last admission in June, he was treated for staph epidermides and Bryon proptosis sepsis. He was supposed to complete treatment till July 11. The catheter was exchanged during that admission. Patient has a right upper extremity AV fistula, and it was evaluated by the vascular surgeon when he was discharged from the hospital, and the last 3 dialysis, his AV fistula has been used. Patient also during his last admission had problem with hypoglycemia and his workup was negative at that time. Infectious disease consultation has been requested to evaluate the patient. Chart reviewed Patient last seen Initial evaluation, patient was treated for sepsis due to the permacath. The permacath was removed Culture from the permacath showed yeast and corynebacterium. He received Diflucan and Vanco. He was actually stable from ID standpoint, but the patient started having problem with recurrent hypoglycemia. This was a problem during his last admission. Workup so far was negative for insulinoma. He is requiring D10 IV fluid infusion A central line in the left groin was placed on August 24 He started having fevers yesterday Patient got a dose of Vanco, and Zosyn yesterday He is on cefepime currently Patient also was noted to have significant swelling in the left upper extremity and ultrasound showed a nonocclusive thrombosis in the cephalic vein. He has no respiratory complaint Denies any diarrhea, no nausea or vomiting Antibiotics Current Medications cefepime Medications (Trade) Dose Ordered Sig/Nohelia Route Start Time Stop Time Status Last Admin (NS Flush) 2 ml UNSCH PRN IV FLUSH 08/12/17 11:45 08/27/17 05:05 (NS Flush) 2 ml BID IV FLUSH 08/12/17 21:00 08/28/17 10:10 (Tylenol) 650 mg Q6H PRN PO 08/12/17 11:45 08/28/17 05:50 (Zofran Inj) 4 mg Q6H PRN IV PUSH 08/12/17 11:45 08/15/17 13:52 (Albuterol Neb) 2.5 mg Q2HR NEB PRN INH 08/12/17 11:45 Miscellaneous Information 1 Q361D XX 08/12/17 11:45 (Angelika-Colace) 1 tab BID PO 08/12/17 21:00 08/28/17 10:09 (Milk Of Magnesia Liq) 30 ml Q12H PRN PO 08/12/17 11:45 (Senokot) 17.2 mg Q12H PRN PO 08/12/17 11:45 08/27/17 13:22 (Dulcolax Supp) 10 mg DAILY PRN RECTAL 08/12/17 11:45 (Lactulose Liq) 30 ml DAILY PRN PO 08/12/17 11:45 (Proamatine) 10 mg TID@07,12,17 PO 08/12/17 12:00 08/28/17 05:50 (Xanax) 1 mg Q8H PRN PO 08/12/17 12:00 08/12/17 23:53 Phenylephrine HCl 160 mg/Dextrose 500 ml @ 7.5 mls/hr TITRATE PRN IV 08/12/17 12:00 08/12/17 13:26 (Brethine Inj) 1 mg UNSCH PRN SQ 08/12/17 12:00 08/13/17 03:13 Sodium Chloride 1,000 ml @ 0 mls/hr Q0M PRN OTHER 08/13/17 13:53 08/26/17 12:50 Sodium Chloride 1,000 ml @ 200 mls/hr Q5H PRN IV 08/13/17 13:53 Sodium Chloride 1,000 ml @ 0 mls/hr Q0M PRN OTHER 08/13/17 13:53 (Mannitol Inj) 12.5 gm UNSCH PRN IV 08/13/17 14:00 Albumin Human 100 ml @ 60 mls/hr UNSCH PRN IV 08/13/17 14:00 08/22/17 16:30 (NS Flush) 5 ml UNSCH PRN IV FLUSH 08/13/17 14:00 (Zofran Inj) 4 mg UNSCH PRN IV PUSH 08/13/17 14:00 (Tylenol) 650 mg UNSCH PRN PO 08/13/17 14:00 08/24/17 16:02 (Benadryl) 25 mg UNSCH PRN PO 08/13/17 14:00 (Nitrostat Sl) 0.4 mg UNSCH PRN SL 08/13/17 14:00 (Catapres) 0.1 mg UNSCH PRN PO 08/13/17 14:00 (Gelfoam 12 Mm/7 Mm Top) 1 foam UNSCH PRN TOP 08/13/17 14:00 08/26/17 12:50 (Phoslo) 1,334 mg TID PO 08/15/17 13:00 08/28/17 10:10 (Epogen Inj) 10,000 units UNSCH PRN IV PUSH 08/16/17 10:15 08/26/17 12:50 (Diflucan) 100 mg DAILY PO 08/16/17 12:00 08/28/17 10:10 (Protonix) 40 mg Q12HR PO 08/18/17 21:00 08/28/17 10:10 (D50w (Vial) Inj) 50 ml UNSCH PRN IV PUSH 08/22/17 08:30 08/26/17 14:35 (Glucagon Inj) 1 mg STAT PRN IM 08/22/17 08:30 Heparin Sodium/ Dextrose 250 ml @ 14 mls/hr TITRATE PRN IV 08/24/17 17:00 08/28/17 00:24 (Dilaudid Pf Inj) 0.5 mg Q4H PRN IV 08/24/17 17:00 08/27/17 18:34 (Maynard 5-325 Mg) 1 tab Q4H PRN PO 08/24/17 17:00 (Maynard 10-325 Mg) 1 tab Q4H PRN PO 08/24/17 17:00 08/27/17 21:48 (NS Flush) DAILY IV FLUSH 08/26/17 09:00 08/28/17 10:11 (NS Flush) UNSCH PRN IV FLUSH 08/25/17 14:45 (Cortef) 10 mg DAILY PO 08/27/17 09:00 08/28/17 10:09 Dextrose 1,000 ml @ 75 mls/hr [id number] IV 08/27/17 08:00 08/27/17 21:20 Cefepime HCl 2000 mg/Sodium Chloride 100 ml @ 200 mls/hr Q24H IV 08/28/17 06:00 08/28/17 07:49 Pharmacy Profile Note 0 ml @ 0 mls/hr UNSCH OTHER 08/28/17 05:30 Lines R groin TLC Past Medical History ESRD, on hemodialysis MWF SLE CAD Hypertension Severe PVD History of DVT Hyperparathyroidism of renal origin Previous hemodialysis catheter line related infection Known central venous occlusion Status post treatment staph epi and bryon sepsis Past Surgical History 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 Vital Signs Date Time Temp Pulse Resp B/P (MAP) Pulse Ox O2 Delivery O2 Flow Rate FiO2 08/28/17 06:57 Nasal Cannula 3.00 08/28/17 06:55 100.5 120 18 101/50 (67) 92 08/28/17 06:55 88 Nasal Cannula 2.00 08/28/17 05:00 102.6 111 18 104/52 (69) 93 08/28/17 00:00 102.3 116 20 108/59 (75) 94 08/27/17 20:10 110 08/27/17 20:00 99.2 109 20 117/58 (77) 92 08/27/17 20:00 Nasal Cannula 2.00 08/27/17 16:00 99.4 102 20 132/61 (84) 08/27/17 16:00 96 08/27/17 12:00 97.2 107 20 154/64 (94) 92 08/27/17 12:00 91 08/28/17 08/28/17 08/29/17 15:00 23:00 07:00 Intake Total 250 ml Balance 250 ml IV Total 250 ml . Laboratory Tests Test 08/27/17 05:00 08/28/17 01:40 08/28/17 07:15 White Blood Count 7.4 TH/MM3 7.5 TH/MM3 8.1 TH/MM3 Red Blood Count 3.11 MIL/MM3 3.26 MIL/MM3 3.09 MIL/MM3 Hemoglobin 9.7 GM/DL 10.5 GM/DL 9.7 GM/DL Hematocrit 30.2 % 31.4 % 29.7 % Mean Corpuscular Volume 96.9 FL 96.2 FL 96.2 FL Mean Corpuscular Hemoglobin 31.3 PG 32.1 PG 31.5 PG Mean Corpuscular Hemoglobin Concent 32.3 % 33.3 % 32.8 % Red Cell Distribution Width 21.0 % 20.1 % 20.6 % Platelet Count 80 TH/MM3 95 TH/MM3 104 TH/MM3 Mean Platelet Volume 10.0 FL 10.1 FL 9.5 FL Neutrophils (%) (Auto) 95.0 % Lymphocytes (%) (Auto) 2.1 % Monocytes (%) (Auto) 1.7 % Eosinophils (%) (Auto) 0.7 % Basophils (%) (Auto) 0.5 % Neutrophils # (Auto) 7.1 TH/MM3 Lymphocytes # (Auto) 0.2 TH/MM3 Monocytes # (Auto) 0.1 TH/MM3 Eosinophils # (Auto) 0.1 TH/MM3 Basophils # (Auto) 0.0 TH/MM3 CBC Comment AUTO DIFF Differential Total Cells Counted 100 Neutrophils % (Manual) 81 % Band Neutrophils % 12 % Lymphocytes % 3 % Monocytes % 3 % Eosinophils % 1 % Neutrophils # (Manual) 7.0 TH/MM3 Differential Comment FINAL DIFF MANUAL [place] Bodies PRESENT Platelet Estimate LOW Platelet Morphology Comment NORMAL Target Cells 1+ [place] Bodies PRESENT Keratocytes OCC Laboratory Tests Test 08/28/17 00:56 08/28/17 07:15 Blood Urea Nitrogen 34 MG/DL 40 MG/DL Creatinine 6.83 MG/DL 7.52 MG/DL Random Glucose 90 MG/DL 87 MG/DL Total Protein 7.1 GM/DL Albumin 2.7 GM/DL 2.5 GM/DL Calcium Level 8.2 MG/DL 8.0 MG/DL Alkaline Phosphatase 75 U/L Aspartate Amino Transf (AST/SGOT) 16 U/L Alanine Aminotransferase (ALT/SGPT) 16 U/L Total Bilirubin 0.7 MG/DL Sodium Level 133 MEQ/L 131 MEQ/L Potassium Level 3.4 MEQ/L 3.7 MEQ/L Chloride Level 91 MEQ/L 91 MEQ/L Carbon Dioxide Level 31.4 MEQ/L 28.2 MEQ/L Anion Gap 11 MEQ/L 12 MEQ/L Estimat Glomerular Filtration Rate 11 ML/MIN 10 ML/MIN Lactic Acid Level 1.9 mmol/L Phosphorus Level 3.5 MG/DL Microbiology Date/Time Source Procedure Growth Status 08/28/17 01:40 Blood Peripheral Aerobic Blood Culture Pending Received 08/28/17 01:40 Blood Peripheral Anaerobic Blood Culture Pending Received Imaging RADIOLOGY STUDIES/FILMS REVIEWED Chest X-Ray 08/12/17 0910 Signed Impressions: Service Date/Time: Saturday, August 12, 2017 09:25 - CONCLUSION: 1. Stable scattered patchiness bilaterally. Chon Nye MD Central Venous Line 08/12/17 0000 Signed Impressions: Service Date/Time: Saturday, August 12, 2017 00:00 - CONCLUSION: Uncomplicated Permcath removal. Shmuel Beckett MD Physical Exam GENERAL: awake and alert, not in respiratory distress. SKIN: Warm and very dry. No generalized rash, no ecchymoses and no evidence of embolic lesions. HEAD: Atraumatic. Normocephalic. No temporal wasting, or tenderness. EYES: [place] conjunctiva. No petechia or hemorrhage. Pupils equal, round and reactive to light. Extraocular movements full and intact. No scleral icterus. EARS, NOSE AND THROAT: Nose without bleeding or purulent nasal discharge. Mucous membranes pink and moist. No oral lesions noted. NECK: Trachea midline. Supple and not tender, no meningeal signs CARDIOVASCULAR: Regular rate and rhythm. No murmurs, rubs or gallops heard RESPIRATORY: Clear to auscultation. Breath sounds equal bilaterally. No rales , wheezing or rhonchi ABDOMEN: Soft, non-tender, nondistended. Bowel sounds present and normoactive. No guarding. No rebound. No organomegaly. EXTREMITIES: No clubbing, cyanosis, or edema. Has bilateral BKA, with a well- healed stump. LUE - very swollen and indurated, has several draining areas in his forearm, seems to have erythema seen RUE AVF ok. Central line L groin looks ok NEUROLOGICAL: Awake and alert. Cranial nerves grossly intact. Motor grossly within normal limits. PSYCHIATRIC: Normal affect, calm and cooperative. LINE: R groin central line with no evidence of infection Assessment & Plan Remarks IMPRESSION New fevers, source? - ?new sepsis - ?cellulitis LUE Sepsis syndrome on presentation which shocked, highly suspicious for line- related sepsis, resolved - Has had the chronic femoral permacath in place, removed Previous treatment for recent staph epi and bryon sepsis, completed treatment July 11 ESRD, on HD, MWF Known PVD Hx central venous occlusion RECOMMENDATION Restart Diflucan 2 BC from central line Got dose of Vanco Continue cefepime Follow temops Follow C/S Monitor progress Explained plan to the patient Louann Barney MD Aug 28, 2017 11:07
[2017-08-28] MEDS ORDERED: FLUCONAZOLE 400 MG PREMIX BAG 400 ML IV ONE (12:00)
--- NOTE | 2017-08-28 15:19 | HHI.PR ---
Subjective Remarks Fevers and tachycardia have recurred today. Sepsis criteria are met. ID has resumed Diflucan and blood cultures are obtained and pending. Hypoglycemic continues to be a problem without significant improvement. Patient is able to maintain a relatively low blood sugars long as he stays on D10 IV. Due to the sepsis and the patient not feeling well consideration for MRI of abdomen is deferred. He may need an MRI of the abdomen to evaluate for an insulinoma once he stabilizes. If MRI of abdomen shows no insulinoma evidence and hypoglycemia remains an issue, may need to consider transferring this patient to another facility for endocrinology evaluation. Left arm swelling is decreasing slowly. Objective Vital Signs Date Time Temp Pulse Resp B/P (MAP) Pulse Ox O2 Delivery O2 Flow Rate FiO2 08/28/17 11:03 96 Nasal Cannula 2.00 08/28/17 08:00 99.2 107 20 103/51 (68) 92 08/28/17 06:57 Nasal Cannula 3.00 08/28/17 06:55 100.5 120 18 101/50 (67) 92 08/28/17 06:55 88 Nasal Cannula 2.00 08/28/17 05:00 102.6 111 18 104/52 (69) 93 08/28/17 00:00 102.3 116 20 108/59 (75) 94 08/27/17 20:10 110 08/27/17 20:00 99.2 109 20 117/58 (77) 92 08/27/17 20:00 Nasal Cannula 2.00 08/27/17 16:00 99.4 102 20 132/61 (84) 08/27/17 16:00 96 I/O 08/27/17 08/27/17 08/27/17 08/28/17 08/28/17 08/28/17 07:00 15:00 23:00 07:00 15:00 23:00 Intake Total 480 ml 718 ml 1205 ml 490 ml 250 ml Output Total 0 ml 3500 ml 0 ml Balance 480 ml -2782 ml 1205 ml 490 ml 250 ml Intake Oral 480 ml 480 ml 240 ml IV Total 718 ml 725 ml 250 ml 250 ml Output Urine Total 0 ml 0 ml Hemodialysis 3500 ml # Voids 0 # Bowel Movements 0 0 0 Result Diagram: 08/28/1771408/28/17714 Objective Remarks GENERAL: NAD, A&Ox3 HEAD: Normocephalic. NECK: Supple, trachea midline. No lymphadenopathy. EYES: No scleral icterus. No injection or drainage. CARDIOVASCULAR: Regular rate and rhythm without murmurs, gallops, or rubs. RESPIRATORY: Breath sounds equal bilaterally. No accessory muscle use. GASTROINTESTINAL: Abdomen soft, non-tender, nondistended. MUSCULOSKELETAL: No cyanosis. History bilateral [id number] amputation's. Right second/third finger amputations. Left arm edema (slightly improved). SKIN: Warm and dry. Scars of right forearm NEURO: No focal neurological deficitis. 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 Admitted secondary to severe sepsis related to pneumonia. Discharge has been on hold secondary to hypoglycemia. Right hand Accu-Chek show hypoglycemia prior to lunch dosing. Discharge held. Insulin studies show elevations. Insulinoma workup ongoing. MRI pending. No occlusive thrombus left upper extremity. He has small clots in this arm which is chronic for him. He is on heparin drip at this point. Deferring resumption of Coumadin for possible need of surgery for insulinoma. If no evidence of insulinoma on MRI consider transfer for endocrinology evaluation and management. Central line placement on 08/25/17. Sepsis has returned overnight. Diflucan resume. Blood cultures pending. Hypoglycemia Not yet improved May be related to depleted glycogen stores Continue IV dextrose Follow blood sugars for better stability prior to weaning off dextrose Patient will need to demonstrate stable blood sugars with only by mouth intake of sugar, prior to discharge Anxiety disorder NOS Acute toxic metabolic encephalopathy Resolved Continue as needed alprazolam Severe sepsis History of bacteremia Sepsis Resolved tunneled vas cath removed 08/12. Will continue vancomycin/piperacillin/tazobactam/diflucan for now. Coronary artery disease status post stent PAD Chronic hypotension related to dialysis Clinically asymptomatic Continue midodrine Elevated AST Stable No further need to monitor Gastroesophageal reflux disease Bleeding Esophageal varices s/p banding gastritis Duodenal ulcers Multiple large erosions were found in the duodenal bulb and 2nd part duodenum Continue Protonix GI follow-up as an outpatient End-stage renal disease Lupus nephritis Hyperphosphatemia hemodialysis Tuesday/Tuesday and Tuesday Nephrology following Continue sevelamer 1600 mg 3 times a day for hyperphosphatemia Follow phosphate levels Continuation of care under nephrology as an outpatient Macrocytic anemia Anemia of chronic kidney disease Acute blood loss anemia Thrombocytopenia Hypercoagulable state Coumadin on hold for now (this had been on hold secondary to GI bleed) Obtain ultrasound of left arm Heparin drip Lifelong anticoagulation SLE positive History bilateral [id number] amputation's Right second/third finger amputation continue supportive care Physical therapy Chronic bradycardia asymptomatic playground monitor. DVT prophylaxis Coumadin on hold due to active bleeding Resume Coumadin when stabilized Problem Qualifiers (1) Lupus (systemic lupus erythematosus): Qualified Codes: M32.15 - Tubulo-interstitial nephropathy in systemic lupus erythematosus Tavares Hanson MD Aug 28, 2017 15:19
[2017-08-28] MEDS: LORATADINE 10 MG TAB PO SCH (21:09)
[2017-08-28] MEDS: ACETAMINOPHEN/HYDROcodone 325 MG/10 MG TAB PO PRN (21:10)
[2017-08-29] VITALS (7 sets, daily range): BP systolic 96–156; BP diastolic 50–68; PULSE 88–115; RESP 18–20; TEMP 99.2–100.2; O2SAT 94–95
[2017-08-29] MEDS: ACETAMINOPHEN/HYDROcodone 325 MG/10 MG TAB PO PRN ×3 (03:23→20:57)
[2017-08-29] MEDS: CEFEPIME INJ 2,000 MG in SODIUM CHLORIDE 0.9% INJ 100 ML IV SCH (05:35)
[2017-08-29] MEDS: HYDROmorphone HCL PF 0.5 MG/0.5 ML SYRINGE IV PRN ×2 (05:47→17:56)
[2017-08-29] MEDS: SODIUM CHLORIDE 0.9% FLUSH 10 ML FLUSH IV FLUSH PRN (05:48)
[2017-08-29] MEDS: MIDODRINE 5 MG TAB PO SCH ×3 (05:56→17:55)
[2017-08-29 06:10] LABS: AUTOMATED NEUTROPHIL # 6.9 TH/MM3 (1.8-7.7); BASOPHIL % 0.3 % (0.0-2.0); EOSINOPHIL # 0.1 TH/MM3 (0-0.4); EOSINOPHIL % 1.7 % (0.0-4.0); HEMATOCRIT 25.8 % (39.0-51.0); LYMPH % 3.6 % (9.0-44.0); LYMPHOCYTE # 0.3 TH/MM3 (1.0-4.8); MEAN CELL VOLUME 95.6 FL (80.0-100.0); MEAN CORPUSCULAR HEMOGLOBIN 31.3 PG (27.0-34.0); MEAN CORPUSCULAR HGB CONC 32.7 % (32.0-36.0); MONO % 2.9 % (0.0-8.0); NEUT % 91.5 % (16.0-70.0); PLATELET COUNT 94 TH/MM3 (150-450); RED CELL DISTRIBUTION WIDTH 20.7 % (11.6-17.2); WHITE BLOOD COUNT 7.5 TH/MM3 (4.0-11.0)
[2017-08-29 06:15] LABS: HEMO FLAGS AUTO DIFF
[2017-08-29 06:23] LABS: APTT (PATIENT) 56.9 SEC (24.3-30.1)
[2017-08-29 06:45] LABS: ALKALINE PHOSPHATASE 72 U/L (45-117); ALT (GPT) 16 U/L (12-78); ANION GAP 11 MEQ/L (5-15); AST (GOT) 21 U/L (15-37); BICARBONATE 28.7 MEQ/L (21.0-32.0); BLOOD UREA NITROGEN 53 MG/DL (7-18); CHLORIDE 90 MEQ/L (98-107); GLOMERULAR FILTRATION RATE 8 ML/MIN (>89); SODIUM (NA) 130 MEQ/L (136-145); TOTAL BILIRUBIN ADULT 0.6 MG/DL (0.2-1.0)
[2017-08-29 08:03] LABS: OVALOCYTES 1+ (NORMAL)
[2017-08-29 08:04] LABS: PLATELET ESTIMATE SMEAR LOW (NORMAL); PLATELET MORPHOLOGY ENLARGED (NORMAL); SCAN/DIFF AUTO DIFF CONFIRMED
[2017-08-29] MEDS: SODIUM CHLORIDE 0.9% FLUSH 10 ML FLUSH IV FLUSH SCH ×3 (09:00→21:00)
--- NOTE | 2017-08-29 10:04 | HHI.PR ---
Subjective Remarks The patient was seen following dialysis. His blood sugar was found to be low again and he was receiving repletion. He says he has been unable to determine why his blood sugars continue to go so low. Discussed with nursing at the bedside. Objective Vitals Vital Signs Date Time Temp Pulse Resp B/P (MAP) Pulse Ox O2 Delivery O2 Flow Rate FiO2 08/29/17 08:00 99.2 91 18 118/58 (78) 94 08/29/17 04:00 99.9 95 18 115/56 (75) 95 08/29/17 00:00 99.8 94 18 135/63 (87) 95 08/28/17 20:08 94 08/28/17 20:00 Nasal Cannula 3.00 08/28/17 20:00 99.5 92 20 123/59 (80) 97 08/28/17 16:00 98.9 94 20 118/60 (79) 92 08/28/17 12:00 98.8 98 20 117/59 (78) 91 08/28/17 11:03 96 Nasal Cannula 2.00 I/O 08/28/17 08/28/17 08/28/17 08/29/17 08/29/17 08/29/17 07:00 15:00 23:00 07:00 15:00 23:00 Intake Total 490 ml 250 ml 240 ml 120 ml Output Total 0 ml Balance 490 ml 250 ml 240 ml 120 ml Intake Oral 240 ml 240 ml 120 ml IV Total 250 ml 250 ml Output Urine Total 0 ml # Voids 0 0 # Bowel Movements 0 0 0 Result Diagram: 08/29/17 0534 08/29/17 0534 Imaging Last Impressions Chest X-Ray 08/28/17 0000 Signed Impressions: Service Date/Time: Monday, August 28, 2017 01:05 - CONCLUSION: Bilateral costophrenic angle interstitial infiltrates, stable on the right and increased on the left. Probable associated small bilateral pleural effusions. Narendra Ralph MD Abdomen Ultrasound 08/26/17 0000 Signed Impressions: Service Date/Time: Saturday, August 26, 2017 08:06 - CONCLUSION: 1. Kidneys are echogenic which can be seen with medical renal disease. 2. Cholelithiasis. 3. Mild prominence of the main pancreatic duct. Devyn Hickey MD Central Venous Line 08/25/17 0000 Signed Impressions: Service Date/Time: August 14:47 - CONCLUSION: Uncomplicated line placement as above. Tavares Ventura MD Upper Extremity Ultrasound 08/24/17 0000 Signed Impressions: Service Date/Time: Thursday, August 24, 2017 23:03 - CONCLUSION: Small amount of non occlusive thrombus in the cephalic vein otherwise unremarkable study. Very impressive soft tissue edema in the subcutaneous fat. Ehsan Archibald MD Objective Remarks GENERAL: NAD, A&Ox3 HEAD: Normocephalic. NECK: Supple, trachea midline. No lymphadenopathy. EYES: No scleral icterus. No injection or drainage. CARDIOVASCULAR: Regular rate and rhythm without murmurs, gallops, or rubs. RESPIRATORY: Breath sounds equal bilaterally. No accessory muscle use. GASTROINTESTINAL: Abdomen soft, non-tender, nondistended. MUSCULOSKELETAL: No cyanosis. History bilateral [id number] amputation's. Right second/third finger amputations. Left arm edema. SKIN: Warm and dry. Scars of right forearm NEURO: No focal neurological deficitis. Procedures EGD PROCEDURE REPORT EXAM DATE: 08/13/2017 INDICATIONS: The patient is a 46 yr old male here for an EGD due to melena PROCEDURE PERFORMED: EGD w/ band ligation of varices MEDICATIONS: None and Per Anesthesia. TOPICAL ANESTHETIC: none CONSENT: The patient understands the risks and benefits of the procedure and understands that these risks include, but are not limited to: sedation, allergic reaction, infection, perforation and/or bleeding. Alternative means of evaluation and treatment include, among others: physical exam, x-rays, and/or surgical intervention. The patient elects to proceed with this endoscopic procedure. medical equipment was checked for proper function. Hand hygiene and appropriate measures for infection prevention was taken. After the risks, benefits and alternatives of the procedure were thoroughly explained, Informed consent was verified, confirmed and timeout was successfully executed by the treatment team. The patient was anesthetized with topical anesthesia and the Pentax [id number] endoscope was introduced through the mouth and advanced to the second portion of the duodenum. Retroflexion was performed and was normal The gastroscope was then slowly withdrawn and removed. ESOPHAGUS: There were large varices in the middle third of the esophagus and lower third esophagus. The varices were bleeding intermittently with spurting spot , 6 bands applied and bleeding controlled. STOMACH: There was severe and erosive gastritis in the entire examined stomach. DUODENUM: Multiple large shallow erosions were found in the duodenal bulb and 2nd part duodenum. ADVERSE EVENTS: There were no complications. IMPRESSIONS: 1. Bleeding Esophageal varices, with active bleeding identified, 6 bands applied to controll the bleeding 2. There was gastritis in the entire examined stomach 3. Multiple large erosions were found in the duodenal bulb and 2nd part duodenum RECOMMENDATIONS: Continue PPI , start Octreotide, PATIENT CONDITION: stable DISPOSITION: Observation REPEAT EXAM: Return 4 weeks EGD Chon Rodriguez MD 08/13/2017 1:38 PM Medications and IVs Current Medications Medications (Trade) Dose Ordered Sig/Nohelia Route Start Time Stop Time Status Last Admin (NS Flush) 2 ml UNSCH PRN IV FLUSH 08/12/17 11:45 08/29/17 05:48 (NS Flush) 2 ml BID IV FLUSH 08/12/17 21:00 08/28/17 21:13 (Tylenol) 650 mg Q6H PRN PO 08/12/17 11:45 08/28/17 05:50 (Zofran Inj) 4 mg Q6H PRN IV PUSH 08/12/17 11:45 08/15/17 13:52 (Albuterol Neb) 2.5 mg Q2HR NEB PRN INH 08/12/17 11:45 Miscellaneous Information 1 Q361D XX 08/12/17 11:45 (Angelika-Colace) 1 tab BID PO 08/12/17 21:00 08/29/17 15:13 (Milk Of Magnesia Liq) 30 ml Q12H PRN PO 08/12/17 11:45 (Senokot) 17.2 mg Q12H PRN PO 08/12/17 11:45 08/27/17 13:22 (Dulcolax Supp) 10 mg DAILY PRN RECTAL 08/12/17 11:45 (Lactulose Liq) 30 ml DAILY PRN PO 08/12/17 11:45 (Proamatine) 10 mg TID@,12,17 PO 08/12/17 12:00 08/29/17 15:13 (Xanax) 1 mg Q8H PRN PO 08/12/17 12:00 08/12/17 23:53 Phenylephrine HCl 160 mg/Dextrose 500 ml @ 7.5 mls/hr TITRATE PRN IV 08/12/17 12:00 08/12/17 13:26 (Brethine Inj) 1 mg UNSCH PRN SQ 08/12/17 12:00 08/13/17 03:13 Sodium Chloride 1,000 ml @ 0 mls/hr Q0M PRN OTHER 08/13/17 13:53 08/26/17 12:50 Sodium Chloride 1,000 ml @ 200 mls/hr Q5H PRN IV 08/13/17 13:53 Sodium Chloride 1,000 ml @ 0 mls/hr Q0M PRN OTHER 08/13/17 13:53 (Mannitol Inj) 12.5 gm UNSCH PRN IV 08/13/17 14:00 Albumin Human 100 ml @ 60 mls/hr UNSCH PRN IV 08/13/17 14:00 08/22/17 16:30 (NS Flush) 5 ml UNSCH PRN IV FLUSH 08/13/17 14:00 (Zofran Inj) 4 mg UNSCH PRN IV PUSH 08/13/17 14:00 (Tylenol) 650 mg UNSCH PRN PO 08/13/17 14:00 08/24/17 16:02 (Benadryl) 25 mg UNSCH PRN PO 08/13/17 14:00 (Nitrostat Sl) 0.4 mg UNSCH PRN SL 08/13/17 14:00 (Catapres) 0.1 mg UNSCH PRN PO 08/13/17 14:00 (Gelfoam 12 Mm/7 Mm Top) 1 foam UNSCH PRN TOP 08/13/17 14:00 08/26/17 12:50 (Phoslo) 1,334 mg TID PO 08/15/17 13:00 08/29/17 15:34 (Epogen Inj) 10,000 units UNSCH PRN IV PUSH 08/16/17 10:15 08/26/17 12:50 (Protonix) 40 mg Q12HR PO 08/18/17 21:00 08/29/17 15:13 (D50w (Vial) Inj) 50 ml UNSCH PRN IV PUSH 08/22/17 08:30 08/29/17 15:33 (Glucagon Inj) 1 mg STAT PRN IM 08/22/17 08:30 Heparin Sodium/ Dextrose 250 ml @ 14 mls/hr TITRATE PRN IV 08/24/17 17:00 08/28/17 19:14 (Dilaudid Pf Inj) 0.5 mg Q4H PRN IV 08/24/17 17:00 08/29/17 05:47 ([place] 5-325 Mg) 1 tab Q4H PRN PO 08/24/17 17:00 ([place] 10-325 Mg) 1 tab Q4H PRN PO 08/24/17 17:00 08/29/17 15:37 (NS Flush) DAILY IV FLUSH 08/26/17 09:00 08/29/17 15:14 (NS Flush) UNSCH PRN IV FLUSH 08/25/17 14:45 (Cortef) 10 mg DAILY PO 08/27/17 09:00 08/29/17 15:13 Cefepime HCl 2000 mg/Sodium Chloride 100 ml @ 200 mls/hr Q24H IV 08/28/17 06:00 08/29/17 05:35 Fluconazole/ Sodium Chloride 200 ml @ 100 mls/hr Q24H IV 08/29/17 12:00 (Claritin) 10 mg HS PO 08/28/17 21:00 08/28/17 21:09 Dextrose 1,000 ml @ 75 mls/hr [id number] IV 08/29/17 10:15 A/P Problem List: (1) Elevated lactic acid level ICD Code: E87.2 - Acidosis Status: Acute (2) HYPOTENSION OF HEMODIALYSIS ICD Code: I95.3 - HYPOTENSION OF HEMODIALYSIS Status: Acute (3) Fever ICD Code: R50.9 - Fever, unspecified Status: Acute (4) ESRD (end stage renal disease) on dialysis ICD Code: N18.6 - End stage renal disease; Z99.2 - Dependence on renal dialysis Status: Chronic (5) Lupus (systemic lupus erythematosus) ICD Code: M32.9 - Systemic lupus erythematosus, unspecified (6) Hypoglycemia ICD Code: E16.2 - Hypoglycemia, unspecified (7) Anemia ICD Code: D64.9 - Anemia, unspecified Status: Acute (8) Chronic anticoagulation ICD Code: Z79.01 - skilled nursing (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 of anticoagulants (9) H/O hypercoagulable state ICD Code: Z86.2 - Personal history of diseases of the blood and blood-forming organs and certain disorders involving the immune mechanism (10) Elevated glucose ICD Code: R73.09 - Other abnormal glucose (11) Hypoalbuminemia ICD Code: E88.09 - Other disorders of plasma-protein metabolism, not elsewhere classified (12) Thrombocytopenia ICD Code: D69.6 - Thrombocytopenia, unspecified (13) Elevated AST (SGOT) ICD Code: R74.0 - Nonspecific elevation of levels of transaminase and lactic acid dehydrogenase [LDH] (14) Macrocytic anemia ICD Code: D53.9 - Nutritional anemia, unspecified (15) Severe sepsis ICD Code: A41.9 - Sepsis, unspecified organism; R65.20 - Severe sepsis without septic shock (16) History of DVT (deep vein thrombosis) ICD Code: Z86.718 - Personal history of other venous thrombosis and embolism (17) History of pulmonary embolism ICD Code: Z86.711 - Personal history of pulmonary embolism (18) Gastroesophageal reflux disease ICD Code: K21.9 - Gastro-esophageal reflux disease without esophagitis (19) Coronary artery disease ICD Code: I25.10 - Atherosclerotic heart disease of ruby coronary artery without angina pectoris (20) 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 Admitted secondary to severe sepsis related to pneumonia. Discharge has been on hold secondary to hypoglycemia. Right hand Accu-Chek show hypoglycemia prior to lunch dosing. Discharge held. Insulin studies show elevations. Insulinoma workup ongoing. MRI pending. No occlusive thrombus left upper extremity. He has small clots in this arm which is chronic for him. He is on heparin drip at this point. Deferring resumption of Coumadin for possible need of surgery for insulinoma. If no evidence of insulinoma on MRI consider transfer for endocrinology evaluation and management. Central line placement on 08/25/17. Hypoglycemia Not yet improved May be related to depleted glycogen stores Continue IV dextrose Follow blood sugars for better stability prior to weaning off dextrose Patient will need to demonstrate stable blood sugars with only by mouth intake of sugar, prior to discharge - MRI of abdomen and pelvis to evaluate for insulinoma. Anxiety disorder NOS Acute toxic metabolic encephalopathy Resolved Continue as needed alprazolam Severe sepsis History of bacteremia Sepsis Resolved tunneled vas cath removed 08/12. Will continue vancomycin/ cefepime /Diflucan for now per ID. Coronary artery disease status post stent PAD Chronic hypotension related to dialysis Clinically asymptomatic Continue midodrine Elevated AST Stable No further need to monitor Gastroesophageal reflux disease Bleeding Esophageal varices s/p banding gastritis Duodenal ulcers Multiple large erosions were found in the duodenal bulb and 2nd part duodenum Continue Protonix GI follow-up as an outpatient - holding Coumadin. On heparin gtt. End-stage renal disease Lupus nephritis Hyperphosphatemia hemodialysis Tuesday/Tuesday and Tuesday Nephrology following Continue sevelamer 1600 mg 3 times a day for hyperphosphatemia Follow phosphate levels Continuation of care under nephrology as an outpatient Macrocytic anemia Anemia of chronic kidney disease Acute blood loss anemia Thrombocytopenia Hypercoagulable state Coumadin on hold for now (this had been on hold secondary to GI bleed) Heparin drip Lifelong anticoagulation SLE positive History bilateral [id number]-[id number] amputation's Right second/third finger amputation continue supportive care Physical therapy Chronic bradycardia asymptomatic residential monitor. DVT prophylaxis Coumadin on hold due to active bleeding. Resume Coumadin when stabilized. Heparin gtt. Discharge Planning Awaiting improvement in hypoglycemia Problem Qualifiers (1) Fever: Qualified Codes: R50.9 - Fever, unspecified (2) Lupus (systemic lupus erythematosus): Qualified Codes: M32.15 - Tubulo-interstitial nephropathy in systemic lupus erythematosus (3) Anemia: Qualified Codes: N18.6 - End stage renal disease; D63.1 - Anemia in chronic kidney disease; Z99.2 - Dependence on renal dialysis (4) Gastroesophageal reflux disease: Qualified Codes: K21.9 - Gastro-esophageal reflux disease without esophagitis (5) Coronary artery disease: Qualified Codes: I25.10 - Atherosclerotic heart disease of ruby coronary artery without angina pectoris Amador Oneill DO Aug 29, 2017 10:04
[2017-08-29] MEDS ORDERED: DEXTROSE 5% IN WATE 1000ML INJ 1,000 ML IV SCH (10:15)
--- NOTE | 2017-08-29 11:33 | HHI.NPPN ---
Subjective History of Present Illness This patient is a 46-year-old male with a history of end-stage renal disease, SLE, hypertension, peripheral vascular disease as well as secondary hyperparathyroidism of renal disease. Unfortunately the patient has had multiple dialysis accesses including dialysis shunts and dialysis catheters in the past complicated by access failure as well as infection. Patient now has very limited options for dialysis access. We were relying on a left femoral dialysis line for access. Fortunately vessel surgery was able to create a left arm AV dialysis fistula back in February. We have used the access for dialysis 3 and the patient was scheduled to have his PermCath removed this Tuesday however presented to the dialysis facility with lethargy and pyrexia. Sepsis imost likely recurrence of line infection most likely consideration. Since admission however noted to have GI bleed and upper endoscopy revealed severe gastritis, and duodenum and mention of large bleeding esophageal varices Interval History Pt seen during HD. UF at 4L Pt feeling OK. Fatigued Febrile over weekend. BCx ordered and pending. ID back on case and has restarted on abx. Review of Systems General Constitutional: Fatigue Cardiovascular Cardiac: Edema Objective Data Data Vital Signs Date Time Temp Pulse Resp B/P (MAP) Pulse Ox O2 Delivery O2 Flow Rate FiO2 08/29/17 11: 88 08/29/17 08:00 99.2 91 18 118/58 (78) 94 08/29/17 04:00 99.9 95 18 115/56 (75) 95 08/29/17 00:00 99.8 94 18 135/63 (87) 95 08/28/17 20:08 94 08/28/17 20:00 Nasal Cannula 3.00 08/28/17 20:00 99.5 92 20 123/59 (80) 97 08/28/17 16:00 98.9 94 20 118/60 (79) 92 08/28/17 12:00 98.8 98 20 117/59 (78) 91 -: 08/29/17 0534 08/29/17 0534 Microbiology 08/28/17 Aerobic Blood Culture - Preliminary, Resulted NO GROWTH IN 1 DAY 08/28/17 Anaerobic Blood Culture - Preliminary, Resulted NO GROWTH IN 1 DAY 08/28/17 Aerobic Blood Culture - Preliminary, Resulted NO GROWTH IN 1 DAY 08/28/17 Anaerobic Blood Culture - Preliminary, Resulted NO GROWTH IN 1 DAY Imaging Last Impressions Chest X-Ray 08/28/17 0000 Signed Impressions: Service Date/Time: Monday, August 28, 2017 01:05 - CONCLUSION: Bilateral costophrenic angle interstitial infiltrates, stable on the right and increased on the left. Probable associated small bilateral pleural effusions. Narendra Ralph MD Abdomen Ultrasound 08/26/17 0000 Signed Impressions: Service Date/Time: Saturday, August 26, 2017 08:06 - CONCLUSION: 1. Kidneys are echogenic which can be seen with medical renal disease. 2. Cholelithiasis. 3. Mild prominence of the main pancreatic duct. Devyn Hickey MD Central Venous Line 08/25/17 0000 Signed Impressions: Service Date/Time: August 14:47 - CONCLUSION: Uncomplicated line placement as above. Tavares Ventura MD Upper Extremity Ultrasound 08/24/17 0000 Signed Impressions: Service Date/Time: Thursday, August 24, 2017 23:03 - CONCLUSION: Small amount of non occlusive thrombus in the cephalic vein otherwise unremarkable study. Very impressive soft tissue edema in the subcutaneous fat. Ehsan Archibald MD Medication Review Current Medications Medications (Trade) Dose Ordered Sig/Nohelia Route Start Time Stop Time Status Last Admin (NS Flush) 2 ml UNSCH PRN IV FLUSH 08/12/17 11:45 08/29/17 05:48 (NS Flush) 2 ml BID IV FLUSH 08/12/17 21:00 08/28/17 21:13 (Tylenol) 650 mg Q6H PRN PO 08/12/17 11:45 08/28/17 05:50 (Zofran Inj) 4 mg Q6H PRN IV PUSH 08/12/17 11:45 08/15/17 13:52 (Albuterol Neb) 2.5 mg Q2HR NEB PRN INH 08/12/17 11:45 Miscellaneous Information 1 Q361D XX 08/12/17 11:45 (Angelika-Colace) 1 tab BID PO 08/12/17 21:00 08/28/17 21:09 (Milk Of Magnesia Liq) 30 ml Q12H PRN PO 08/12/17 11:45 (Senokot) 17.2 mg Q12H PRN PO 08/12/17 11:45 08/27/17 13:22 (Dulcolax Supp) 10 mg DAILY PRN RECTAL 08/12/17 11:45 (Lactulose Liq) 30 ml DAILY PRN PO 08/12/17 11:45 (Proamatine) 10 mg TID@07,12,17 PO 08/12/17 12:00 08/29/17 05:56 (Xanax) 1 mg Q8H PRN PO 08/12/17 12:00 08/12/17 23:53 Phenylephrine HCl 160 mg/Dextrose 500 ml @ 7.5 mls/hr TITRATE PRN IV 08/12/17 12:00 08/12/17 13:26 (Brethine Inj) 1 mg UNSCH PRN SQ 08/12/17 12:00 08/13/17 03:13 Sodium Chloride 1,000 ml @ 0 mls/hr Q0M PRN OTHER 08/13/17 13:53 08/26/17 12:50 Sodium Chloride 1,000 ml @ 200 mls/hr Q5H PRN IV 08/13/17 13:53 Sodium Chloride 1,000 ml @ 0 mls/hr Q0M PRN OTHER 08/13/17 13:53 (Mannitol Inj) 12.5 gm UNSCH PRN IV 08/13/17 14:00 Albumin Human 100 ml @ 60 mls/hr UNSCH PRN IV 08/13/17 14:00 08/22/17 16:30 (NS Flush) 5 ml UNSCH PRN IV FLUSH 08/13/17 14:00 (Zofran Inj) 4 mg UNSCH PRN IV PUSH 08/13/17 14:00 (Tylenol) 650 mg UNSCH PRN PO 08/13/17 14:00 08/24/17 16:02 (Benadryl) 25 mg UNSCH PRN PO 08/13/17 14:00 (Nitrostat Sl) 0.4 mg UNSCH PRN SL 08/13/17 14:00 (Catapres) 0.1 mg UNSCH PRN PO 08/13/17 14:00 (Gelfoam 12 Mm/7 Mm Top) 1 foam UNSCH PRN TOP 08/13/17 14:00 08/26/17 12:50 (Phoslo) 1,334 mg TID PO 08/15/17 13:00 08/28/17 18:41 (Epogen Inj) 10,000 units UNSCH PRN IV PUSH 08/16/17 10:15 08/26/17 12:50 (Protonix) 40 mg Q12HR PO 08/18/17 21:00 08/28/17 21:09 (D50w (Vial) Inj) 50 ml UNSCH PRN IV PUSH 08/22/17 08:30 08/26/17 14:35 (Glucagon Inj) 1 mg STAT PRN IM 08/22/17 08:30 Heparin Sodium/ Dextrose 250 ml @ 14 mls/hr TITRATE PRN IV 08/24/17 17:00 08/28/17 19:14 (Dilaudid Pf Inj) 0.5 mg Q4H PRN IV 08/24/17 17:00 08/29/17 05:47 ([place] 5-325 Mg) 1 tab Q4H PRN PO 08/24/17 17:00 ([place] 10-325 Mg) 1 tab Q4H PRN PO 08/24/17 17:00 08/29/17 03:23 (NS Flush) DAILY IV FLUSH 08/26/17 09:00 08/28/17 10:11 (NS Flush) UNSCH PRN IV FLUSH 08/25/17 14:45 (Cortef) 10 mg DAILY PO 08/27/17 09:00 08/28/17 10:09 Cefepime HCl 2000 mg/Sodium Chloride 100 ml @ 200 mls/hr Q24H IV 08/28/17 06:00 08/29/17 05:35 Pharmacy Profile Note 0 ml @ 0 mls/hr UNSCH OTHER 08/28/17 05:30 Fluconazole/ Sodium Chloride 200 ml @ 100 mls/hr Q24H IV 08/29/17 12:00 (Claritin) 10 mg HS PO 08/28/17 21:00 08/28/17 21:09 Dextrose 1,000 ml @ 75 mls/hr [id number] IV 08/29/17 10:15 Physical Exam General Appearance: No Acute Distress Eyes Eye Exam: Sclera White Pulmonary Resp Exam: Clear Bilaterally, Breath Sounds Equal, No Distress Cardiology CV Exam: Regular, Normal Sinus Rhythm Gastrointestinal/Abdomen GI Exam: Soft, Non-Tender Integumentary Skin Exam: Clear, Warm Extremeties Extremities Exam: No Edema, Moderate Edema (2+ pitting edema involving the hips presacral area. 3+ pitting edema involving his left upper extremity.), Pitting Edema, Dependent Edema Neurologic Neuro Exam: Alert, Awake, Speech Clear, Moving All Extremities Psychiatric Psych Exam: Appropriate Responses Assessment/Plan Discussed Condition With: Patient Problem List: (1) End-stage renal disease on hemodialysis ICD Codes: N18.6 - End stage renal disease; Z99.2 - Dependence on renal dialysis Status: Chronic Plan: Continue on MWF schedule Access working well with UF of 4L. (2) Hypoglycemia ICD Codes: E16.2 - Hypoglycemia, unspecified Plan: Patient's hypoglycemia may be related to his end-stage renal disease as clearance of insulin is reduced in the setting of CKD. Patient may possibly also have subclinical hepatic disease coexisting given the fact that he has varices. C-peptide levels can be elevated in the setting of chronic kidney disease secondary to reduced clearance of insulin by the kidney as well as with insulinomas. (3) Complications, dialysis, catheter, mechanical ICD Codes: T82.49XA - Other complication of vascular dialysis catheter, initial encounter Status: Resolved Plan: Hemodialysis PermCath removed. AV dialysis fistula appears to be working well. Blood cultures negative greater than 72 hours hours . It is possible his presentation was primarily related to GI bleed. (4) Anemia of renal disease ICD Codes: D63.1 - Anemia in chronic kidney disease Status: Chronic Plan: Epo with HD (5) Esophageal varices determined by endoscopy ICD Codes: I85.00 - Esophageal varices without bleeding Plan: As far as I'm aware the patient has no known history of cirrhosis. Previous hepatitis profile negative. 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 (7) Fever ICD Codes: R50.9 - Fever, unspecified Status: Acute Plan: Reviewed ID notes Restarted Cefepime & Fluconazole If Vanc needed, can dose after HD. Received 08/28 BCx neg x24h Problem Qualifiers (1) Fever: Qualified Codes: R50.9 - Fever, unspecified Gladis Cole Aug 29, 2017 11:33
[2017-08-29] MEDS ORDERED: VANCOMYCIN INJ 1,000 MG in SODIUM CHLOR 0.9% 250 ML INJ 250 ML IV ONE (13:00)
--- NOTE | 2017-08-29 13:08 | HHI.IDPN ---
Subjective Subjective Remarks Patient is a 46-year-old male, presented to the hospital for further evaluation of hypotension. He has known end-stage renal disease, and gets hemodialysis every Tuesday and Tuesday. He was in the dialysis clinic and he was found to be febrile, hypotensive, and tachycardic. He completed his treatment, and he was advised to go to the hospital for further evaluation and treatment. Patient currently has been having fevers since his been in the emergency room. He is also complaining of being sick to his stomach, and has had some nausea. Denies any abdominal pain. He denies any respiratory complaint. Patient has known central venous occlusion, and the only patent venous access for dialysis has been in his left femoral groin. During his last admission in June, he was treated for staph epidermides and Bryon proptosis sepsis. He was supposed to complete treatment till July 11. The catheter was exchanged during that admission. Patient has a right upper extremity AV fistula, and it was evaluated by the vascular surgeon when he was discharged from the hospital, and the last 3 dialysis, his AV fistula has been used. Patient also during his last admission had problem with hypoglycemia and his workup was negative at that time. Infectious disease consultation has been requested to evaluate the patient. Initial evaluation, patient was treated for sepsis due to the permacath. The permacath was removed Culture from the permacath showed yeast and corynebacterium. He received Diflucan and Vanco. Notes reviewed Having HD today Still with fevers BC negative No new complaints Has LUE swelling He has no respiratory complaint Denies any diarrhea, no nausea or vomiting Central line in groin placed 08/24 Antibiotics Current Medications cefepime Diflucan Vanco Medications (Trade) Dose Ordered Sig/Nohelia Route Start Time Stop Time Status Last Admin (NS Flush) 2 ml UNSCH PRN IV FLUSH 08/12/17 11:45 08/29/17 05:48 (NS Flush) 2 ml BID IV FLUSH 08/12/17 21:00 08/28/17 21:13 (Tylenol) 650 mg Q6H PRN PO 08/12/17 11:45 08/28/17 05:50 (Zofran Inj) 4 mg Q6H PRN IV PUSH 08/12/17 11:45 08/15/17 13:52 (Albuterol Neb) 2.5 mg Q2HR NEB PRN INH 08/12/17 11:45 Miscellaneous Information 1 Q361D XX 08/12/17 11:45 (Angelika-Colace) 1 tab BID PO 08/12/17 21:00 08/28/17 21:09 (Milk Of Magnesia Liq) 30 ml Q12H PRN PO 08/12/17 11:45 (Senokot) 17.2 mg Q12H PRN PO 08/12/17 11:45 08/27/17 13:22 (Dulcolax Supp) 10 mg DAILY PRN RECTAL 08/12/17 11:45 (Lactulose Liq) 30 ml DAILY PRN PO 08/12/17 11:45 (Proamatine) 10 mg TID@,, PO 08/12/17 12:00 08/29/17 05:56 (Xanax) 1 mg Q8H PRN PO 08/12/17 12:00 08/12/17 23:53 Phenylephrine HCl 160 mg/Dextrose 500 ml @ 7.5 mls/hr TITRATE PRN IV 08/12/17 12:00 08/12/17 13:26 (Brethine Inj) 1 mg UNSCH PRN SQ 08/12/17 12:00 08/13/17 03:13 Sodium Chloride 1,000 ml @ 0 mls/hr Q0M PRN OTHER 08/13/17 13:53 08/26/17 12:50 Sodium Chloride 1,000 ml @ 200 mls/hr Q5H PRN IV 08/13/17 13:53 Sodium Chloride 1,000 ml @ 0 mls/hr Q0M PRN OTHER 08/13/17 13:53 (Mannitol Inj) 12.5 gm UNSCH PRN IV 08/13/17 14:00 Albumin Human 100 ml @ 60 mls/hr UNSCH PRN IV 08/13/17 14:00 08/22/17 16:30 (NS Flush) 5 ml UNSCH PRN IV FLUSH 08/13/17 14:00 (Zofran Inj) 4 mg UNSCH PRN IV PUSH 08/13/17 14:00 (Tylenol) 650 mg UNSCH PRN PO 08/13/17 14:00 08/24/17 16:02 (Benadryl) 25 mg UNSCH PRN PO 08/13/17 14:00 (Nitrostat Sl) 0.4 mg UNSCH PRN SL 08/13/17 14:00 (Catapres) 0.1 mg UNSCH PRN PO 08/13/17 14:00 (Gelfoam 12 Mm/7 Mm Top) 1 foam UNSCH PRN TOP 08/13/17 14:00 08/26/17 12:50 (Phoslo) 1,334 mg TID PO 08/15/17 13:00 08/28/17 18:41 (Epogen Inj) 10,000 units UNSCH PRN IV PUSH 08/16/17 10:15 08/26/17 12:50 (Protonix) 40 mg Q12HR PO 08/18/17 21:00 08/28/17 21:09 (D50w (Vial) Inj) 50 ml UNSCH PRN IV PUSH 08/22/17 08:30 08/26/17 14:35 (Glucagon Inj) 1 mg STAT PRN IM 08/22/17 08:30 Heparin Sodium/ Dextrose 250 ml @ 14 mls/hr TITRATE PRN IV 08/24/17 17:00 08/28/17 19:14 (Dilaudid Pf Inj) 0.5 mg Q4H PRN IV 08/24/17 17:00 08/29/17 05:47 ([place] 5-325 Mg) 1 tab Q4H PRN PO 08/24/17 17:00 ([place] 10-325 Mg) 1 tab Q4H PRN PO 08/24/17 17:00 08/29/17 03:23 (NS Flush) DAILY IV FLUSH 08/26/17 09:00 08/28/17 10:11 (NS Flush) UNSCH PRN IV FLUSH 08/25/17 14:45 (Cortef) 10 mg DAILY PO 08/27/17 09:00 08/28/17 10:09 Cefepime HCl 2000 mg/Sodium Chloride 100 ml @ 200 mls/hr Q24H IV 08/28/17 06:00 08/29/17 05:35 Pharmacy Profile Note 0 ml @ 0 mls/hr UNSCH OTHER 08/28/17 05:30 Fluconazole/ Sodium Chloride 200 ml @ 100 mls/hr Q24H IV 08/29/17 12:00 (Claritin) 10 mg HS PO 08/28/17 21:00 08/28/17 21:09 Dextrose 1,000 ml @ 75 mls/hr [id number] IV 08/29/17 10:15 Medications (Trade) Dose Ordered Sig/Nohelia Route Start Time Stop Time Status Last Admin (NS Flush) 2 ml UNSCH PRN IV FLUSH 08/12/17 11:45 08/27/17 05:05 (NS Flush) 2 ml BID IV FLUSH 08/12/17 21:00 08/28/17 10:10 (Tylenol) 650 mg Q6H PRN PO 08/12/17 11:45 08/28/17 05:50 (Zofran Inj) 4 mg Q6H PRN IV PUSH 08/12/17 11:45 08/15/17 13:52 (Albuterol Neb) 2.5 mg Q2HR NEB PRN INH 08/12/17 11:45 Miscellaneous Information 1 Q361D XX 08/12/17 11:45 (Angelika-Colace) 1 tab BID PO 08/12/17 21:00 08/28/17 10:09 (Milk Of Magnesia Liq) 30 ml Q12H PRN PO 08/12/17 11:45 (Senokot) 17.2 mg Q12H PRN PO 08/12/17 11:45 08/27/17 13:22 (Dulcolax Supp) 10 mg DAILY PRN RECTAL 08/12/17 11:45 (Lactulose Liq) 30 ml DAILY PRN PO 08/12/17 11:45 (Proamatine) 10 mg TID@,, PO 08/12/17 12:00 08/28/17 05:50 (Xanax) 1 mg Q8H PRN PO 08/12/17 12:00 08/12/17 23:53 Phenylephrine HCl 160 mg/Dextrose 500 ml @ 7.5 mls/hr TITRATE PRN IV 08/12/17 12:00 08/12/17 13:26 (Brethine Inj) 1 mg UNSCH PRN SQ 08/12/17 12:00 08/13/17 03:13 Sodium Chloride 1,000 ml @ 0 mls/hr Q0M PRN OTHER 08/13/17 13:53 08/26/17 12:50 Sodium Chloride 1,000 ml @ 200 mls/hr Q5H PRN IV 08/13/17 13:53 Sodium Chloride 1,000 ml @ 0 mls/hr Q0M PRN OTHER 08/13/17 13:53 (Mannitol Inj) 12.5 gm UNSCH PRN IV 08/13/17 14:00 Albumin Human 100 ml @ 60 mls/hr UNSCH PRN IV 08/13/17 14:00 08/22/17 16:30 (NS Flush) 5 ml UNSCH PRN IV FLUSH 08/13/17 14:00 (Zofran Inj) 4 mg UNSCH PRN IV PUSH 08/13/17 14:00 (Tylenol) 650 mg UNSCH PRN PO 08/13/17 14:00 08/24/17 16:02 (Benadryl) 25 mg UNSCH PRN PO 08/13/17 14:00 (Nitrostat Sl) 0.4 mg UNSCH PRN SL 08/13/17 14:00 (Catapres) 0.1 mg UNSCH PRN PO 08/13/17 14:00 (Gelfoam 12 Mm/7 Mm Top) 1 foam UNSCH PRN TOP 08/13/17 14:00 08/26/17 12:50 (Phoslo) 1,334 mg TID PO 08/15/17 13:00 08/28/17 10:10 (Epogen Inj) 10,000 units UNSCH PRN IV PUSH 08/16/17 10:15 08/26/17 12:50 (Diflucan) 100 mg DAILY PO 08/16/17 12:00 08/28/17 10:10 (Protonix) 40 mg Q12HR PO 08/18/17 21:00 08/28/17 10:10 (D50w (Vial) Inj) 50 ml UNSCH PRN IV PUSH 08/22/17 08:30 08/26/17 14:35 (Glucagon Inj) 1 mg STAT PRN IM 08/22/17 08:30 Heparin Sodium/ Dextrose 250 ml @ 14 mls/hr TITRATE PRN IV 08/24/17 17:00 08/28/17 00:24 (Dilaudid Pf Inj) 0.5 mg Q4H PRN IV 08/24/17 17:00 08/27/17 18:34 ([place] 5-325 Mg) 1 tab Q4H PRN PO 08/24/17 17:00 ([place] 10-325 Mg) 1 tab Q4H PRN PO 08/24/17 17:00 08/27/17 21:48 (NS Flush) DAILY IV FLUSH 08/26/17 09:00 08/28/17 10:11 (NS Flush) UNSCH PRN IV FLUSH 08/25/17 14:45 (Cortef) 10 mg DAILY PO 08/27/17 09:00 08/28/17 10:09 Dextrose 1,000 ml @ 75 mls/hr [id number] IV 08/27/17 08:00 08/27/17 21:20 Cefepime HCl 2000 mg/Sodium Chloride 100 ml @ 200 mls/hr Q24H IV 08/28/17 06:00 08/28/17 07:49 Pharmacy Profile Note 0 ml @ 0 mls/hr UNSCH OTHER 08/28/17 05:30 Lines R groin TLC Past Medical History ESRD, on hemodialysis MWF SLE CAD Hypertension Severe PVD History of DVT Hyperparathyroidism of renal origin Previous hemodialysis catheter line related infection Known central venous occlusion Status post treatment staph epi and bryon sepsis Past Surgical History 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 Vital Signs Date Time Temp Pulse Resp B/P (MAP) Pulse Ox O2 Delivery O2 Flow Rate FiO2 08/29/17 11:17 88 08/29/17 08:00 99.2 91 18 118/58 (78) 94 08/29/17 04:00 99.9 95 18 115/56 (75) 95 08/29/17 00:00 99.8 94 18 135/63 (87) 95 08/28/17 20:08 94 08/28/17 20:00 Nasal Cannula 3.00 08/28/17 20:00 99.5 92 20 123/59 (80) 97 08/28/17 16:00 98.9 94 20 118/60 (79) 92 . Laboratory Tests Test 08/28/17 01:40 08/28/17 07:15 08/29/17 05:34 White Blood Count 7.5 TH/MM3 8.1 TH/MM3 7.5 TH/MM3 Red Blood Count 3.26 MIL/MM3 3.09 MIL/MM3 2.70 MIL/MM3 Hemoglobin 10.5 GM/DL 9.7 GM/DL 8.4 GM/DL Hematocrit 31.4 % 29.7 % 25.8 % Mean Corpuscular Volume 96.2 FL 96.2 FL 95.6 FL Mean Corpuscular Hemoglobin 32.1 PG 31.5 PG 31.3 PG Mean Corpuscular Hemoglobin Concent 33.3 % 32.8 % 32.7 % Red Cell Distribution Width 20.1 % 20.6 % 20.7 % Platelet Count 95 TH/MM3 104 TH/MM3 94 TH/MM3 Mean Platelet Volume 10.1 FL 9.5 FL 8.9 FL Neutrophils (%) (Auto) 95.0 % 91.5 % Lymphocytes (%) (Auto) 2.1 % 3.6 % Monocytes (%) (Auto) 1.7 % 2.9 % Eosinophils (%) (Auto) 0.7 % 1.7 % Basophils (%) (Auto) 0.5 % 0.3 % Neutrophils # (Auto) 7.1 TH/MM3 6.9 TH/MM3 Lymphocytes # (Auto) 0.2 TH/MM3 0.3 TH/MM3 Monocytes # (Auto) 0.1 TH/MM3 0.2 TH/MM3 Eosinophils # (Auto) 0.1 TH/MM3 0.1 TH/MM3 Basophils # (Auto) 0.0 TH/MM3 0.0 TH/MM3 CBC Comment AUTO DIFF AUTO DIFF Differential Total Cells Counted 100 Neutrophils % (Manual) 81 % Band Neutrophils % 12 % Lymphocytes % 3 % Monocytes % 3 % Eosinophils % 1 % Neutrophils # (Manual) 7.0 TH/MM3 Differential Comment FINAL DIFF MANUAL AUTO DIFF CONFIRMED Dohle Bodies PRESENT Platelet Estimate LOW LOW Platelet Morphology Comment NORMAL ENLARGED Target Cells 1+ [place] Bodies PRESENT Keratocytes OCC Ovalocytes 1+ Laboratory Tests Test 08/28/17 00:56 08/28/17 07:15 08/29/17 05:34 Blood Urea Nitrogen 34 MG/DL 40 MG/DL 53 MG/DL Creatinine 6.83 MG/DL 7.52 MG/DL 9.19 MG/DL Random Glucose 90 MG/DL 87 MG/DL 88 MG/DL Total Protein 7.1 GM/DL 6.6 GM/DL Albumin 2.7 GM/DL 2.5 GM/DL 2.4 GM/DL Calcium Level 8.2 MG/DL 8.0 MG/DL 8.1 MG/DL Alkaline Phosphatase 75 U/L 72 U/L Aspartate Amino Transf (AST/SGOT) 16 U/L 21 U/L Alanine Aminotransferase (ALT/SGPT) 16 U/L 16 U/L Total Bilirubin 0.7 MG/DL 0.6 MG/DL Sodium Level 133 MEQ/L 131 MEQ/L 130 MEQ/L Potassium Level 3.4 MEQ/L 3.7 MEQ/L 4.0 MEQ/L Chloride Level 91 MEQ/L 91 MEQ/L 90 MEQ/L Carbon Dioxide Level 31.4 MEQ/L 28.2 MEQ/L 28.7 MEQ/L Anion Gap 11 MEQ/L 12 MEQ/L 11 MEQ/L Estimat Glomerular Filtration Rate 11 ML/MIN 10 ML/MIN 8 ML/MIN Lactic Acid Level 1.9 mmol/L Phosphorus Level 3.5 MG/DL Microbiology Date/Time Source Procedure Growth Status 08/28/17 18:10 Blood Line Aerobic Blood Culture - Preliminary NO GROWTH IN 1 DAY Resulted 08/28/17 18:10 Blood Line Anaerobic Blood Culture - Preliminary NO GROWTH IN 1 DAY Resulted 08/28/17 18:10 Blood Line Aerobic Blood Culture - Preliminary NO GROWTH IN 1 DAY Resulted 08/28/17 18:10 Blood Line Anaerobic Blood Culture - Preliminary NO GROWTH IN 1 DAY Resulted 08/28/17 01:40 Blood Peripheral Aerobic Blood Culture - Preliminary NO GROWTH IN 1 DAY Resulted 08/28/17 01:40 Blood Peripheral Anaerobic Blood Culture - Preliminary NO GROWTH IN 1 DAY Resulted Imaging RADIOLOGY STUDIES/FILMS REVIEWED Chest X-Ray 08/12/17 0910 Signed Impressions: Service Date/Time: Saturday, August 12, 2017 09:25 - CONCLUSION: 1. Stable scattered patchiness bilaterally. Chon Nye MD Central Venous Line 08/12/17 0000 Signed Impressions: Service Date/Time: Saturday, August 12, 2017 00:00 - CONCLUSION: Uncomplicated Permcath removal. Shmuel Beckett MD Physical Exam GENERAL: awake and alert, NAD SKIN: Warm and very dry. No generalized rash, no ecchymoses and no evidence of embolic lesions. HEAD: Atraumatic. Normocephalic. No temporal wasting, or tenderness. EYES: Crucible conjunctiva. No petechia or hemorrhage. Pupils equal, round and reactive to light. Extraocular movements full and intact. No scleral icterus. EARS, NOSE AND THROAT: Nose without bleeding or purulent nasal discharge. Mucous membranes pink and moist. No oral lesions noted. NECK: Trachea midline. Supple and not tender, no meningeal signs CARDIOVASCULAR: Regular rate and rhythm. No murmurs, rubs or gallops heard RESPIRATORY: Clear to auscultation. Breath sounds equal bilaterally. No rales , wheezing or rhonchi ABDOMEN: Soft, non-tender, nondistended. Bowel sounds present and normoactive. No guarding. No rebound. No organomegaly. EXTREMITIES: No clubbing, cyanosis, or edema. Has bilateral BKA, with a well- healed stump. LUE - very swollen and indurated, has several draining areas in his forearm, seems to have erythema seen RUE AVF ok. Central line L groin looks ok NEUROLOGICAL: Awake and alert. Cranial nerves grossly intact. Motor grossly within normal limits. PSYCHIATRIC: Normal affect, calm and cooperative. LINE: R groin central line with no evidence of infection Assessment & Plan Remarks IMPRESSION New fevers, source? - ?new sepsis - ?cellulitis LUE Sepsis syndrome on presentation which shocked, highly suspicious for line- related sepsis, resolved - Has had the chronic femoral permacath in place, removed Previous treatment for recent staph epi and bryon sepsis, completed treatment July 11 ESRD, on HD, MWF Known PVD Hx central venous occlusion RECOMMENDATION Continue Diflucan Follow BC Give dose of Vanco today Continue cefepime Follow temps Follow C/S Monitor progress Explained plan to the patient Louann Barney MD Aug 29, 2017 13:08
[2017-08-29] MEDS: CALCIUM ACETATE 667 MG CAP PO SCH ×3 (15:13→17:55)
[2017-08-29] MEDS: PANTOPRAZOLE SOD 40 MG DELAYED RELEASE TAB PO SCH ×2 (15:13→20:52)
[2017-08-29] MEDS: DOCUSATE SODIUM 50 MG/SENNA 8.6 MG TAB PO SCH ×2 (15:13→20:52)
[2017-08-29] MEDS: HYDROCORTISONE 10 MG TAB PO SCH (15:13)
[2017-08-29] MEDS: DEXTROSE 50% IN WATER 50 ML VIAL(D50) IV PUSH PRN (15:33)
[2017-08-29] MEDS: HEPARIN-D5W 25,000 U/250 ML 250 ML IV PRN (16:03)
[2017-08-29] MEDS: DEXTROSE 10% INJ 1,000 ML IV SCH ×2 (16:12)
[2017-08-29] MEDS: FLUCONAZOLE/NACL 400 MG/200 ML IV SCH (17:42)
[2017-08-29] MEDS: ACETAMINOPHEN 325 MG TAB PO PRN (18:25)
[2017-08-29] MEDS: LORATADINE 10 MG TAB PO SCH (20:52)
[2017-08-30] VITALS (8 sets, daily range): BP systolic 106–155; BP diastolic 55–72; PULSE 70–96; RESP 17–20; TEMP 98.2–99.4; O2SAT 92–97
[2017-08-30] MEDS: ACETAMINOPHEN/HYDROcodone 325 MG/10 MG TAB PO PRN ×4 (01:49→20:32)
[2017-08-30] MEDS: DEXTROSE 10% INJ 1,000 ML IV SCH ×3 (05:14→23:18)
[2017-08-30] MEDS: CEFEPIME INJ 2,000 MG in SODIUM CHLORIDE 0.9% INJ 100 ML IV SCH (05:14)
[2017-08-30 05:58] LABS: HEMATOCRIT 25.5 % (39.0-51.0); MEAN CELL VOLUME 95.5 FL (80.0-100.0); MEAN CORPUSCULAR HEMOGLOBIN 31.6 PG (27.0-34.0); PLATELET COUNT 94 TH/MM3 (150-450); RED BLOOD COUNT 2.67 MIL/MM3 (4.50-5.90); RED CELL DISTRIBUTION WIDTH 20.9 % (11.6-17.2); WHITE BLOOD COUNT 7.9 TH/MM3 (4.0-11.0)
[2017-08-30] MEDS: MIDODRINE 5 MG TAB PO SCH ×3 (06:02→18:18)
[2017-08-30 06:03] LABS: REVIEW FLAG FINAL
[2017-08-30 06:25] LABS: BICARBONATE 28.3 MEQ/L (21.0-32.0); MAGNESIUM 1.9 MG/DL (1.5-2.5)
[2017-08-30 07:25] LABS: APTT (PATIENT) 53.1 SEC (24.3-30.1)
[2017-08-30] MEDS: SODIUM CHLORIDE 0.9% FLUSH 10 ML FLUSH IV FLUSH SCH ×3 (09:25→20:02)
[2017-08-30] MEDS: DOCUSATE SODIUM 50 MG/SENNA 8.6 MG TAB PO SCH ×2 (09:26→19:50)
[2017-08-30] MEDS: HYDROCORTISONE 10 MG TAB PO SCH (09:26)
[2017-08-30] MEDS: PANTOPRAZOLE SOD 40 MG DELAYED RELEASE TAB PO SCH ×2 (09:26→19:50)
[2017-08-30] MEDS: CALCIUM ACETATE 667 MG CAP PO SCH ×3 (09:26→18:18)
[2017-08-30] MEDS: HEPARIN-D5W 25,000 U/250 ML 250 ML IV PRN (10:21)
[2017-08-30] MEDS ORDERED: LORazepam 2 MG/ML VIAL IV PUSH PRN ×2 (11:00→12:00)
[2017-08-30] MEDS: FLUCONAZOLE/NACL 400 MG/200 ML IV SCH (11:39)
--- NOTE | 2017-08-30 11:46 | HHI.PR ---
Subjective Remarks The patient indicated that he didn't want to go for the MRI because he is too claustrophobic. He had no other acute complaints. Discussed with nursing. Objective Vitals Vital Signs Date Time Temp Pulse Resp B/P (MAP) Pulse Ox O2 Delivery O2 Flow Rate FiO2 08/30/17 11:13 80 08/30/17 09:30 Nasal Cannula 2.00 08/30/17 08:00 99.1 88 20 123/58 (79) 92 08/30/17 04:00 Nasal Cannula 2.00 08/30/17 04:00 99.1 89 18 106/55 (72) 93 08/30/17 00:00 Nasal Cannula 2.00 08/30/17 00:00 99.4 87 18 109/55 (73) 95 08/29/17 22:03 18 08/29/17 21:15 Nasal Cannula 2.00 08/29/17 20:18 97 08/29/17 20:00 99.9 95 18 96/50 (65) 94 96/50 (65) 08/29/17 17:37 Nasal Cannula 2.00 08/29/17 16:00 100.2 115 20 156/68 (97) 95 08/29/17 15:38 Nasal Cannula 2.00 I/O 08/29/17 08/29/17 08/29/17 08/30/17 08/30/17 08/30/17 07:00 15:00 23:00 07:00 15:00 23:00 Intake Total 120 ml 480 ml 991 ml Output Total 4000 ml 0 ml Balance 120 ml -4000 ml 480 ml 991 ml Intake Oral 120 ml 480 ml 240 ml IV Total 751 ml Output Urine Total 0 ml Hemodialysis 4000 ml # Voids 0 0 # Bowel Movements 0 0 Result Diagram: 08/30/17 0520 08/30/17 0520 Imaging Last Impressions Chest X-Ray 08/28/17 0000 Signed Impressions: Service Date/Time: Monday, August 28, 2017 01:05 - CONCLUSION: Bilateral costophrenic angle interstitial infiltrates, stable on the right and increased on the left. Probable associated small bilateral pleural effusions. Narendra Ralph MD Abdomen Ultrasound 08/26/17 0000 Signed Impressions: Service Date/Time: Saturday, August 26, 2017 08:06 - CONCLUSION: 1. Kidneys are echogenic which can be seen with medical renal disease. 2. Cholelithiasis. 3. Mild prominence of the main pancreatic duct. Devyn Hickey MD Central Venous Line 08/25/17 0000 Signed Impressions: Service Date/Time: August 14:47 - CONCLUSION: Uncomplicated line placement as above. Tavares Ventura MD Upper Extremity Ultrasound 08/24/17 0000 Signed Impressions: Service Date/Time: Thursday, August 24, 2017 23:03 - CONCLUSION: Small amount of non occlusive thrombus in the cephalic vein otherwise unremarkable study. Very impressive soft tissue edema in the subcutaneous fat. Ehsan Archibald MD Objective Remarks GENERAL: NAD, A&Ox3 HEAD: Normocephalic. NECK: Supple, trachea midline. No lymphadenopathy. EYES: No scleral icterus. No injection or drainage. CARDIOVASCULAR: Regular rate and rhythm without murmurs, gallops, or rubs. RESPIRATORY: Breath sounds equal bilaterally. No accessory muscle use. GASTROINTESTINAL: Abdomen soft, non-tender, nondistended. MUSCULOSKELETAL: No cyanosis. History bilateral [id number] amputation's. Right second/third finger amputations. Left arm edema. SKIN: Warm and dry. Scars of right forearm NEURO: No focal neurological deficitis. Procedures EGD PROCEDURE REPORT EXAM DATE: 08/13/2017 INDICATIONS: The patient is a 46 yr old male here for an EGD due to melena PROCEDURE PERFORMED: EGD w/ band ligation of varices MEDICATIONS: None and Per Anesthesia. TOPICAL ANESTHETIC: none CONSENT: The patient understands the risks and benefits of the procedure and understands that these risks include, but are not limited to: sedation, allergic reaction, infection, perforation and/or bleeding. Alternative means of evaluation and treatment include, among others: physical exam, x-rays, and/or surgical intervention. The patient elects to proceed with this endoscopic procedure. medical equipment was checked for proper function. Hand hygiene and appropriate measures for infection prevention was taken. After the risks, benefits and alternatives of the procedure were thoroughly explained, Informed consent was verified, confirmed and timeout was successfully executed by the treatment team. The patient was anesthetized with topical anesthesia and the Pentax [id number] endoscope was introduced through the mouth and advanced to the second portion of the duodenum. Retroflexion was performed and was normal The gastroscope was then slowly withdrawn and removed. ESOPHAGUS: There were large varices in the middle third of the esophagus and lower third esophagus. The varices were bleeding intermittently with spurting spot , 6 bands applied and bleeding controlled. STOMACH: There was severe and erosive gastritis in the entire examined stomach. DUODENUM: Multiple large shallow erosions were found in the duodenal bulb and 2nd part duodenum. ADVERSE EVENTS: There were no complications. IMPRESSIONS: 1. Bleeding Esophageal varices, with active bleeding identified, 6 bands applied to controll the bleeding 2. There was gastritis in the entire examined stomach 3. Multiple large erosions were found in the duodenal bulb and 2nd part duodenum RECOMMENDATIONS: Continue PPI , start Octreotide, PATIENT CONDITION: stable DISPOSITION: Observation REPEAT EXAM: Return 4 weeks EGD Chon Rodriguez MD 08/13/2017 1:38 PM Medications and IVs Current Medications Medications (Trade) Dose Ordered Sig/Nohelia Route Start Time Stop Time Status Last Admin (NS Flush) 2 ml UNSCH PRN IV FLUSH 08/12/17 11:45 08/29/17 05:48 (NS Flush) 2 ml BID IV FLUSH 08/12/17 21:00 08/30/17 09:25 (Tylenol) 650 mg Q6H PRN PO 08/12/17 11:45 08/29/17 18:25 (Zofran Inj) 4 mg Q6H PRN IV PUSH 08/12/17 11:45 08/15/17 13:52 (Albuterol Neb) 2.5 mg Q2HR NEB PRN INH 08/12/17 11:45 Miscellaneous Information 1 Q361D XX 08/12/17 11:45 (Angelika-Colace) 1 tab BID PO 08/12/17 21:00 08/30/17 09:26 (Milk Of Magnesia Liq) 30 ml Q12H PRN PO 08/12/17 11:45 (Senokot) 17.2 mg Q12H PRN PO 08/12/17 11:45 08/27/17 13:22 (Dulcolax Supp) 10 mg DAILY PRN RECTAL 08/12/17 11:45 (Lactulose Liq) 30 ml DAILY PRN PO 08/12/17 11:45 (Proamatine) 10 mg TID@,, PO 08/12/17 12:00 08/30/17 06:02 (Xanax) 1 mg Q8H PRN PO 08/12/17 12:00 08/12/17 23:53 Phenylephrine HCl 160 mg/Dextrose 500 ml @ 7.5 mls/hr TITRATE PRN IV 08/12/17 12:00 08/12/17 13:26 (Brethine Inj) 1 mg UNSCH PRN SQ 08/12/17 12:00 08/13/17 03:13 Sodium Chloride 1,000 ml @ 0 mls/hr Q0M PRN OTHER 08/13/17 13:53 08/26/17 12:50 Sodium Chloride 1,000 ml @ 200 mls/hr Q5H PRN IV 08/13/17 13:53 Sodium Chloride 1,000 ml @ 0 mls/hr Q0M PRN OTHER 08/13/17 13:53 (Mannitol Inj) 12.5 gm UNSCH PRN IV 08/13/17 14:00 Albumin Human 100 ml @ 60 mls/hr UNSCH PRN IV 08/13/17 14:00 08/22/17 16:30 (NS Flush) 5 ml UNSCH PRN IV FLUSH 08/13/17 14:00 (Zofran Inj) 4 mg UNSCH PRN IV PUSH 08/13/17 14:00 (Tylenol) 650 mg UNSCH PRN PO 08/13/17 14:00 08/24/17 16:02 (Benadryl) 25 mg UNSCH PRN PO 08/13/17 14:00 (Nitrostat Sl) 0.4 mg UNSCH PRN SL 08/13/17 14:00 (Catapres) 0.1 mg UNSCH PRN PO 08/13/17 14:00 (Gelfoam 12 Mm/7 Mm Top) 1 foam UNSCH PRN TOP 08/13/17 14:00 08/26/17 12:50 (Phoslo) 1,334 mg TID PO 08/15/17 13:00 08/30/17 09:26 (Epogen Inj) 10,000 units UNSCH PRN IV PUSH 08/16/17 10:15 08/26/17 12:50 (Protonix) 40 mg Q12HR PO 08/18/17 21:00 08/30/17 09:26 (D50w (Vial) Inj) 50 ml UNSCH PRN IV PUSH 08/22/17 08:30 08/29/17 15:33 (Glucagon Inj) 1 mg STAT PRN IM 08/22/17 08:30 Heparin Sodium/ Dextrose 250 ml @ 14 mls/hr TITRATE PRN IV 08/24/17 17:00 08/30/17 10:21 (Dilaudid Pf Inj) 0.5 mg Q4H PRN IV 08/24/17 17:00 08/29/17 17:56 ([place] 5-325 Mg) 1 tab Q4H PRN PO 08/24/17 17:00 ([place] 10-325 Mg) 1 tab Q4H PRN PO 08/24/17 17:00 08/30/17 06:31 (NS Flush) DAILY IV FLUSH 08/26/17 09:00 08/30/17 09:25 (NS Flush) UNSCH PRN IV FLUSH 08/25/17 14:45 (Cortef) 10 mg DAILY PO 08/27/17 09:00 08/30/17 09:26 Cefepime HCl 2000 mg/Sodium Chloride 100 ml @ 200 mls/hr Q24H IV 08/28/17 06:00 08/30/17 05:14 Fluconazole/ Sodium Chloride 200 ml @ 100 mls/hr Q24H IV 08/29/17 12:00 08/29/17 17:42 (Claritin) 10 mg HS PO 08/28/17 21:00 08/29/17 20:52 Dextrose 1,000 ml @ 75 mls/hr [id number] IV 08/29/17 16:00 08/30/17 05:14 (Ativan Inj) 1 mg UNSCH X1 PRN IV PUSH 08/30/17 11:00 08/30/17 23:59 A/P Problem List: (1) Elevated lactic acid level ICD Code: E87.2 - Acidosis Status: Acute (2) HYPOTENSION OF HEMODIALYSIS ICD Code: I95.3 - HYPOTENSION OF HEMODIALYSIS Status: Acute (3) Fever ICD Code: R50.9 - Fever, unspecified Status: Acute (4) ESRD (end stage renal disease) on dialysis ICD Code: N18.6 - End stage renal disease; Z99.2 - Dependence on renal dialysis Status: Chronic (5) Lupus (systemic lupus erythematosus) ICD Code: M32.9 - Systemic lupus erythematosus, unspecified (6) Hypoglycemia ICD Code: E16.2 - Hypoglycemia, unspecified (7) Anemia ICD Code: D64.9 - Anemia, unspecified Status: Acute (8) Chronic anticoagulation ICD Code: Z79.01 - alf (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 of anticoagulants (9) H/O hypercoagulable state ICD Code: Z86.2 - Personal history of diseases of the blood and blood-forming organs and certain disorders involving the immune mechanism (10) Elevated glucose ICD Code: R73.09 - Other abnormal glucose (11) Hypoalbuminemia ICD Code: E88.09 - Other disorders of plasma-protein metabolism, not elsewhere classified (12) Thrombocytopenia ICD Code: D69.6 - Thrombocytopenia, unspecified (13) Elevated AST (SGOT) ICD Code: R74.0 - Nonspecific elevation of levels of transaminase and lactic acid dehydrogenase [LDH] (14) Macrocytic anemia ICD Code: D53.9 - Nutritional anemia, unspecified (15) Severe sepsis ICD Code: A41.9 - Sepsis, unspecified organism; R65.20 - Severe sepsis without septic shock (16) History of DVT (deep vein thrombosis) ICD Code: Z86.718 - Personal history of other venous thrombosis and embolism (17) History of pulmonary embolism ICD Code: Z86.711 - Personal history of pulmonary embolism (18) Gastroesophageal reflux disease ICD Code: K21.9 - Gastro-esophageal reflux disease without esophagitis (19) Coronary artery disease ICD Code: I25.10 - Atherosclerotic heart disease of [place] coronary artery without angina pectoris (20) 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 Admitted secondary to severe sepsis related to pneumonia. Discharge has been on hold secondary to hypoglycemia. Right hand Accu-Chek show hypoglycemia prior to lunch dosing. Discharge held. Insulin studies show elevations. Insulinoma workup ongoing. MRI pending. No occlusive thrombus left upper extremity. He has small clots in this arm which is chronic for him. He is on heparin drip at this point. Deferring resumption of Coumadin for possible need of surgery for insulinoma. If no evidence of insulinoma on MRI consider transfer for endocrinology evaluation and management. Central line placement on 08/25/17. Hypoglycemia Not yet improved, chronic problem. May be related to depleted glycogen stores vs s/t renal disease or insulinoma. - Continue 10% IV dextrose. - Follow blood sugars q4h. - Patient will need to demonstrate stable blood sugars with only by mouth intake of sugar, prior to discharge. - MRI of abdomen and pelvis to evaluate for insulinoma. Ativan as needed for anxiety. Anxiety disorder NOS/ Acute toxic metabolic encephalopathy Stable. - Continue as needed alprazolam. Ativan IV for MRI. Severe sepsis/ History of bacteremia Resolved. Tunneled vas cath removed 08/12. - Will continue vancomycin/ cefepime /Diflucan for now per ID. Coronary artery disease status post stent/ PAD/ Chronic hypotension related to dialysis Clinically asymptomatic. - Continue midodrine. Elevated AST Stable. - Monitor as needed. Gastroesophageal reflux disease The pt had bleeding Esophageal varices s/p banding. Also noted was gastritis and multiple large erosions in the duodenal bulb and 2nd part duodenum - Continue Protonix. - GI follow-up as an outpatient - holding Coumadin. On heparin gtt. End-stage renal disease/ Lupus nephritis/ Hyperphosphatemia The pt is on hemodialysis Tuesday/Tuesday and Tuesday per nephrology. - Continue sevelamer 1600 mg 3 times a day for hyperphosphatemia. - dialysis. Macrocytic anemia/ Anemia of chronic kidney disease/ Acute blood loss anemia/ Thrombocytopenia/ Hypercoagulable state Stable. - Coumadin on hold for now (this had been on hold secondary to GI bleed). Continue heparin drip. - Lifelong anticoagulation. History bilateral [id number] amputation's/ Right second/third finger amputation - continue supportive care - Physical/ occupational therapy. DVT prophylaxis Coumadin on hold due to active bleeding. Resume Coumadin when stabilized. Heparin gtt. Discharge Planning Awaiting improvement in hypoglycemia Problem Qualifiers (1) Fever: Qualified Codes: R50.9 - Fever, unspecified (2) Lupus (systemic lupus erythematosus): Qualified Codes: M32.15 - Tubulo-interstitial nephropathy in systemic lupus erythematosus (3) Anemia: Qualified Codes: N18.6 - End stage renal disease; D63.1 - Anemia in chronic kidney disease; Z99.2 - Dependence on renal dialysis (4) Gastroesophageal reflux disease: Qualified Codes: K21.9 - Gastro-esophageal reflux disease without esophagitis (5) Coronary artery disease: Qualified Codes: I25.10 - Atherosclerotic heart disease of [place] coronary artery without angina pectoris Amador Oneill DO Aug 30, 2017 11:46
--- NOTE | 2017-08-30 12:44 | HHI.IDPN ---
Subjective Subjective Remarks Patient is a 46-year-old male, presented to the hospital for further evaluation of hypotension. He has known end-stage renal disease, and gets hemodialysis every Tuesday and Tuesday. He was in the dialysis clinic and he was found to be febrile, hypotensive, and tachycardic. He completed his treatment, and he was advised to go to the hospital for further evaluation and treatment. Patient currently has been having fevers since his been in the emergency room. He is also complaining of being sick to his stomach, and has had some nausea. Denies any abdominal pain. He denies any respiratory complaint. Patient has known central venous occlusion, and the only patent venous access for dialysis has been in his left femoral groin. During his last admission in June, he was treated for staph epidermides and Bryon proptosis sepsis. He was supposed to complete treatment till July 11. The catheter was exchanged during that admission. Patient has a right upper extremity AV fistula, and it was evaluated by the vascular surgeon when he was discharged from the hospital, and the last 3 dialysis, his AV fistula has been used. Patient also during his last admission had problem with hypoglycemia and his workup was negative at that time. Infectious disease consultation has been requested to evaluate the patient. Initial evaluation, patient was treated for sepsis due to the permacath. The permacath was removed Culture from the permacath showed yeast and corynebacterium. He received Diflucan and Vanco. Notes reviewed Temps better overnight Trying to keep his LUE elevated All BC are negative UA ok CXR ok He has no respiratory complaint Denies any diarrhea, no nausea or vomiting Central line in groin placed 08/24 Antibiotics cefepime Diflucan Vanco Current Medications Medications (Trade) Dose Ordered Sig/Nohelia Route Start Time Stop Time Status Last Admin (NS Flush) 2 ml UNSCH PRN IV FLUSH 08/12/17 11:45 08/29/17 05:48 (NS Flush) 2 ml BID IV FLUSH 08/12/17 21:00 08/30/17 09:25 (Tylenol) 650 mg Q6H PRN PO 08/12/17 11:45 08/29/17 18:25 (Zofran Inj) 4 mg Q6H PRN IV PUSH 08/12/17 11:45 08/15/17 13:52 (Albuterol Neb) 2.5 mg Q2HR NEB PRN INH 08/12/17 11:45 Miscellaneous Information 1 Q361D XX 08/12/17 11:45 (Angelika-Colace) 1 tab BID PO 08/12/17 21:00 08/30/17 09:26 (Milk Of Magnesia Liq) 30 ml Q12H PRN PO 08/12/17 11:45 (Senokot) 17.2 mg Q12H PRN PO 08/12/17 11:45 08/27/17 13:22 (Dulcolax Supp) 10 mg DAILY PRN RECTAL 08/12/17 11:45 (Lactulose Liq) 30 ml DAILY PRN PO 08/12/17 11:45 (Proamatine) 10 mg TID@,, PO 08/12/17 12:00 08/30/17 11:39 (Xanax) 1 mg Q8H PRN PO 08/12/17 12:00 08/12/17 23:53 Phenylephrine HCl 160 mg/Dextrose 500 ml @ 7.5 mls/hr TITRATE PRN IV 08/12/17 12:00 08/12/17 13:26 (Brethine Inj) 1 mg UNSCH PRN SQ 08/12/17 12:00 08/13/17 03:13 Sodium Chloride 1,000 ml @ 0 mls/hr Q0M PRN OTHER 08/13/17 13:53 08/26/17 12:50 Sodium Chloride 1,000 ml @ 200 mls/hr Q5H PRN IV 08/13/17 13:53 Sodium Chloride 1,000 ml @ 0 mls/hr Q0M PRN OTHER 08/13/17 13:53 (Mannitol Inj) 12.5 gm UNSCH PRN IV 08/13/17 14:00 Albumin Human 100 ml @ 60 mls/hr UNSCH PRN IV 08/13/17 14:00 08/22/17 16:30 (NS Flush) 5 ml UNSCH PRN IV FLUSH 08/13/17 14:00 (Zofran Inj) 4 mg UNSCH PRN IV PUSH 08/13/17 14:00 (Tylenol) 650 mg UNSCH PRN PO 08/13/17 14:00 08/24/17 16:02 (Benadryl) 25 mg UNSCH PRN PO 08/13/17 14:00 (Nitrostat Sl) 0.4 mg UNSCH PRN SL 08/13/17 14:00 (Catapres) 0.1 mg UNSCH PRN PO 08/13/17 14:00 (Gelfoam 12 Mm/7 Mm Top) 1 foam UNSCH PRN TOP 08/13/17 14:00 08/26/17 12:50 (Phoslo) 1,334 mg TID PO 08/15/17 13:00 08/30/17 09:26 (Epogen Inj) 10,000 units UNSCH PRN IV PUSH 08/16/17 10:15 08/26/17 12:50 (Protonix) 40 mg Q12HR PO 08/18/17 21:00 08/30/17 09:26 (D50w (Vial) Inj) 50 ml UNSCH PRN IV PUSH 08/22/17 08:30 08/29/17 15:33 (Glucagon Inj) 1 mg STAT PRN IM 08/22/17 08:30 Heparin Sodium/ Dextrose 250 ml @ 14 mls/hr TITRATE PRN IV 08/24/17 17:00 08/30/17 10:21 (Dilaudid Pf Inj) 0.5 mg Q4H PRN IV 08/24/17 17:00 08/29/17 17:56 ([place] 5-325 Mg) 1 tab Q4H PRN PO 08/24/17 17:00 ([place] 10-325 Mg) 1 tab Q4H PRN PO 08/24/17 17:00 08/30/17 11:41 (NS Flush) DAILY IV FLUSH 08/26/17 09:00 08/30/17 09:25 (NS Flush) UNSCH PRN IV FLUSH 08/25/17 14:45 (Cortef) 10 mg DAILY PO 08/27/17 09:00 08/30/17 09:26 Cefepime HCl 2000 mg/Sodium Chloride 100 ml @ 200 mls/hr Q24H IV 08/28/17 06:00 08/30/17 05:14 Fluconazole/ Sodium Chloride 200 ml @ 100 mls/hr Q24H IV 08/29/17 12:00 08/30/17 11:39 (Claritin) 10 mg HS PO 08/28/17 21:00 08/29/17 20:52 Dextrose 1,000 ml @ 75 mls/hr [id number] IV 08/29/17 16:00 08/30/17 05:14 (Ativan Inj) 1 mg UNSCH X1 PRN IV PUSH 08/30/17 11:00 08/30/17 23:59 (Ativan Inj) 1 mg UNSCH X1 PRN IV PUSH 08/30/17 12:00 08/30/17 23:59 Lines R groin TLC Past Medical History ESRD, on hemodialysis MWF SLE CAD Hypertension Severe PVD History of DVT Hyperparathyroidism of renal origin Previous hemodialysis catheter line related infection Known central venous occlusion Status post treatment staph epi and bryon sepsis Past Surgical History 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 Vital Signs Date Time Temp Pulse Resp B/P (MAP) Pulse Ox O2 Delivery O2 Flow Rate FiO2 08/30/17 11:13 80 08/30/17 09:30 Nasal Cannula 2.00 08/30/17 08:00 99.1 88 20 123/58 (79) 92 08/30/17 04:00 Nasal Cannula 2.00 08/30/17 04:00 99.1 89 18 106/55 (72) 93 08/30/17 00:00 Nasal Cannula 2.00 08/30/17 00:00 99.4 87 18 109/55 (73) 95 08/29/17 22:03 18 08/29/17 21:15 Nasal Cannula 2.00 08/29/17 20:18 97 08/29/17 20:00 99.9 95 18 96/50 (65) 94 96/50 (65) 08/29/17 17:37 Nasal Cannula 2.00 08/29/17 16:00 100.2 115 20 156/68 (97) 95 08/29/17 15:38 Nasal Cannula 2.00 . Laboratory Tests Test 08/29/17 05:34 08/30/17 05:20 White Blood Count 7.5 TH/MM3 7.9 TH/MM3 Red Blood Count 2.70 MIL/MM3 2.67 MIL/MM3 Hemoglobin 8.4 GM/DL 8.4 GM/DL Hematocrit 25.8 % 25.5 % Mean Corpuscular Volume 95.6 FL 95.5 FL Mean Corpuscular Hemoglobin 31.3 PG 31.6 PG Mean Corpuscular Hemoglobin Concent 32.7 % 33.0 % Red Cell Distribution Width 20.7 % 20.9 % Platelet Count 94 TH/MM3 94 TH/MM3 Mean Platelet Volume 8.9 FL 9.0 FL Neutrophils (%) (Auto) 91.5 % Lymphocytes (%) (Auto) 3.6 % Monocytes (%) (Auto) 2.9 % Eosinophils (%) (Auto) 1.7 % Basophils (%) (Auto) 0.3 % Neutrophils # (Auto) 6.9 TH/MM3 Lymphocytes # (Auto) 0.3 TH/MM3 Monocytes # (Auto) 0.2 TH/MM3 Eosinophils # (Auto) 0.1 TH/MM3 Basophils # (Auto) 0.0 TH/MM3 CBC Comment AUTO DIFF Differential Comment AUTO DIFF CONFIRMED Platelet Estimate LOW Platelet Morphology Comment ENLARGED Ovalocytes 1+ Laboratory Tests Test 08/29/17 05:34 08/29/17 15:27 08/30/17 05:20 Blood Urea Nitrogen 53 MG/DL 37 MG/DL Creatinine 9.19 MG/DL 6.93 MG/DL Random Glucose 88 MG/DL 118 MG/DL 89 MG/DL Total Protein 6.6 GM/DL Albumin 2.4 GM/DL Calcium Level 8.1 MG/DL 8.5 MG/DL Alkaline Phosphatase 72 U/L Aspartate Amino Transf (AST/SGOT) 21 U/L Alanine Aminotransferase (ALT/SGPT) 16 U/L Total Bilirubin 0.6 MG/DL Sodium Level 130 MEQ/L 128 MEQ/L Potassium Level 4.0 MEQ/L 4.0 MEQ/L Chloride Level 90 MEQ/L 90 MEQ/L Carbon Dioxide Level 28.7 MEQ/L 28.3 MEQ/L Anion Gap 11 MEQ/L 10 MEQ/L Estimat Glomerular Filtration Rate 8 ML/MIN 10 ML/MIN Magnesium Level 1.9 MG/DL Microbiology Date/Time Source Procedure Growth Status 08/28/17 18:10 Blood Line Aerobic Blood Culture - Preliminary NO GROWTH IN 2 DAYS Resulted 08/28/17 18:10 Blood Line Anaerobic Blood Culture - Preliminary NO GROWTH IN 2 DAYS Resulted 08/28/17 18:10 Blood Line Aerobic Blood Culture - Preliminary NO GROWTH IN 2 DAYS Resulted 08/28/17 18:10 Blood Line Anaerobic Blood Culture - Preliminary NO GROWTH IN 2 DAYS Resulted 08/28/17 01:40 Blood Peripheral Aerobic Blood Culture - Preliminary NO GROWTH IN 2 DAYS Resulted 08/28/17 01:40 Blood Peripheral Anaerobic Blood Culture - Preliminary NO GROWTH IN 2 DAYS Resulted Imaging RADIOLOGY STUDIES/FILMS REVIEWED Chest X-Ray 08/12/17 0910 Signed Impressions: Service Date/Time: Saturday, August 12, 2017 09:25 - CONCLUSION: 1. Stable scattered patchiness bilaterally. Chon Nye MD Central Venous Line 08/12/17 0000 Signed Impressions: Service Date/Time: Saturday, August 12, 2017 00:00 - CONCLUSION: Uncomplicated Permcath removal. Shmuel Beckett MD Physical Exam GENERAL: awake and alert, NAD SKIN: Warm and very dry. No generalized rash, no ecchymoses and no evidence of embolic lesions. HEAD: Atraumatic. Normocephalic. No temporal wasting, or tenderness. EYES: [place] conjunctiva. No petechia or hemorrhage. Pupils equal, round and reactive to light. Extraocular movements full and intact. No scleral icterus. EARS, NOSE AND THROAT: Nose without bleeding or purulent nasal discharge. Mucous membranes pink and moist. No oral lesions noted. NECK: Trachea midline. Supple and not tender, no meningeal signs CARDIOVASCULAR: Regular rate and rhythm. No murmurs, rubs or gallops heard RESPIRATORY: Clear to auscultation. Breath sounds equal bilaterally. No rales , wheezing or rhonchi ABDOMEN: Soft, non-tender, nondistended. Bowel sounds present and normoactive. No guarding. No rebound. No organomegaly. EXTREMITIES: No clubbing, cyanosis, or edema. Has bilateral BKA, with a well- healed stump. LUE - still zhao swollen and indurated, but better. RUE AVF ok. Central line L groin looks ok NEUROLOGICAL: Non-focal PSYCHIATRIC: Normal affect, calm and cooperative. LINE: R groin central line with no evidence of infection Assessment & Plan Remarks IMPRESSION New fevers, source? resolved - ?new sepsis - likely due cellulitis LUE Sepsis syndrome on presentation which shocked, highly suspicious for line- related sepsis, resolved - Has had the chronic femoral permacath in place, removed Previous treatment for recent staph epi and bryon sepsis, completed treatment July 11 ESRD, on HD, MWF Known PVD Hx central venous occlusion RECOMMENDATION Continue Diflucan Continue IV Vanco Continue cefepime If BC negative, I will D/C Cefepime, and give Vanco at least until 09/06 (7 days ) Follow C/S Monitor progress Elevate LUE - showed patient how to do LUE elevation Explained plan to the patient Louann Barney MD Aug 30, 2017 12:44
[2017-08-30] MEDS: LORATADINE 10 MG TAB PO SCH (19:50)
[2017-08-30] MEDS: HYDROmorphone HCL PF 0.5 MG/0.5 ML SYRINGE IV PRN (22:38)
[2017-08-31] VITALS: BP 154/70; PULSE 71; RESP 18; TEMP 98.8; O2SAT 95
[2017-08-31] MEDS: ACETAMINOPHEN/HYDROcodone 325 MG/10 MG TAB PO PRN ×2 (02:50→14:12)
[2017-08-31] MEDS: HEPARIN-D5W 25,000 U/250 ML 250 ML IV PRN ×2 (02:55→21:11)
[2017-08-31 04:00] VITALS: BP 158/72; PULSE 76; RESP 17; TEMP 99.1; O2SAT 99
[2017-08-31] MEDS: MIDODRINE 5 MG TAB PO SCH ×3 (06:04→17:36)
[2017-08-31] MEDS: CEFEPIME INJ 2,000 MG in SODIUM CHLORIDE 0.9% INJ 100 ML IV SCH (06:04)
[2017-08-31] MEDS: HYDROmorphone HCL PF 0.5 MG/0.5 ML SYRINGE IV PRN (06:30)
[2017-08-31 06:52] LABS: HEMATOCRIT 26.7 % (39.0-51.0); MEAN CELL VOLUME 94.2 FL (80.0-100.0); MEAN CORPUSCULAR HEMOGLOBIN 30.7 PG (27.0-34.0); MEAN CORPUSCULAR HGB CONC 32.6 % (32.0-36.0); PLATELET COUNT 108 TH/MM3 (150-450); RED BLOOD COUNT 2.84 MIL/MM3 (4.50-5.90); REVIEW FLAG FINAL; WHITE BLOOD COUNT 9.7 TH/MM3 (4.0-11.0)
[2017-08-31 07:10] LABS: BICARBONATE 27.3 MEQ/L (21.0-32.0); MAGNESIUM 1.9 MG/DL (1.5-2.5); POTASSIUM 4.4 MEQ/L (3.5-5.1)
[2017-08-31 08:00] VITALS: BP 128/57; PULSE 90; RESP 20; TEMP 98.9; O2SAT 96
[2017-08-31 08:01] VITALS: PULSE 91
[2017-08-31 08:14] LABS: APTT (PATIENT) 82.9 SEC (24.3-30.1)
[2017-08-31] MEDS: CALCIUM ACETATE 667 MG CAP PO SCH ×3 (09:00→17:36)
[2017-08-31] MEDS: EPOETIN ALFA 10,000 UNITS/ML VIAL IV PUSH PRN (11:28)
[2017-08-31] MEDS: GELATIN 12 MM/7 MM FOAM TOP PRN (11:29)
[2017-08-31] MEDS: VANCOMYCIN INJ 1,000 MG in SODIUM CHLOR 0.9% 250 ML INJ 250 ML IV SCH (11:29)
[2017-08-31] MEDS: PANTOPRAZOLE SOD 40 MG DELAYED RELEASE TAB PO SCH ×2 (13:49→21:02)
[2017-08-31] MEDS: HYDROCORTISONE 10 MG TAB PO SCH (13:49)
[2017-08-31] MEDS: SODIUM CHLORIDE 0.9% FLUSH 10 ML FLUSH IV FLUSH SCH ×3 (13:52→21:02)
[2017-08-31] MEDS: DOCUSATE SODIUM 50 MG/SENNA 8.6 MG TAB PO SCH ×2 (14:12→21:02)
[2017-08-31] MEDS ORDERED: LORazepam 2 MG/ML VIAL IV PUSH ONE (14:45)
[2017-08-31] MEDS: SODIUM CHLORIDE 0.9% FLUSH 10 ML FLUSH IV FLUSH PRN (14:50)
--- NOTE | 2017-08-31 14:55 | HHI.PR ---
Subjective Remarks The patient said dialysis went well. He said that he will go for the MRI if he gets something for the anxiety. He did endorse pain in the left arm. Discussed with nursing. Objective Vitals Vital Signs Date Time Temp Pulse Resp B/P (MAP) Pulse Ox O2 Delivery O2 Flow Rate FiO2 08/31/17 08:17 Nasal Cannula 2.00 08/31/17 08:00 98.9 90 20 128/57 (80) 96 08/31/17 04:30 Nasal Cannula 2.00 08/31/17 04:29 Nasal Cannula 2.00 08/31/17 04:00 99.1 76 17 158/72 (100) 99 08/31/17 00:00 98.8 71 18 154/70 (98) 95 08/31/17 00:00 Nasal Cannula 2.00 08/30/17 20:00 73 08/30/17 20:00 Nasal Cannula 2.00 08/30/17 20:00 99.4 78 17 155/72 (99) 93 08/30/17 19:50 98.6 74 18 143/66 (91) 97 08/30/17 16:59 Nasal Cannula 2.00 08/30/17 16:45 98.8 70 18 145/70 (95) 94 I/O 08/30/17 08/30/17 08/30/17 08/31/17 08/31/17 08/31/17 07:00 15:00 23:00 07:00 15:00 23:00 Intake Total 991 ml 480 ml 240 ml Output Total 0 ml 4000 ml Balance 991 ml 480 ml 240 ml -4000 ml Intake Oral 240 ml 480 ml 240 ml IV Total 751 ml Output Urine Total 0 ml Hemodialysis 4000 ml # Voids 0 # Bowel Movements 0 Result Diagram: 08/31/17 0605 08/31/17 0625 Imaging Last Impressions Chest X-Ray 08/28/17 0000 Signed Impressions: Service Date/Time: Monday, August 28, 2017 01:05 - CONCLUSION: Bilateral costophrenic angle interstitial infiltrates, stable on the right and increased on the left. Probable associated small bilateral pleural effusions. Narednra Ralph MD Abdomen Ultrasound 08/26/17 0000 Signed Impressions: Service Date/Time: Saturday, August 26, 2017 08:06 - CONCLUSION: 1. Kidneys are echogenic which can be seen with medical renal disease. 2. Cholelithiasis. 3. Mild prominence of the main pancreatic duct. Devyn Hickey MD Central Venous Line 08/25/17 0000 Signed Impressions: Service Date/Time: August 14:47 - CONCLUSION: Uncomplicated line placement as above. Tavares Ventura MD Upper Extremity Ultrasound 08/24/17 0000 Signed Impressions: Service Date/Time: Thursday, August 24, 2017 23:03 - CONCLUSION: Small amount of non occlusive thrombus in the cephalic vein otherwise unremarkable study. Very impressive soft tissue edema in the subcutaneous fat. Ehsan Archibald MD Objective Remarks GENERAL: NAD, A&Ox3 HEAD: Normocephalic. NECK: Supple, trachea midline. No lymphadenopathy. EYES: No scleral icterus. No injection or drainage. CARDIOVASCULAR: Regular rate and rhythm without murmurs, gallops, or rubs. RESPIRATORY: Breath sounds equal bilaterally. No accessory muscle use. GASTROINTESTINAL: Abdomen soft, non-tender, nondistended. MUSCULOSKELETAL: No cyanosis. History bilateral [id number] amputation's. Right second/third finger amputations. Left arm edema, tenderness to palpation. SKIN: Warm and dry. Scars of right forearm NEURO: No focal neurological deficitis. Procedures EGD PROCEDURE REPORT EXAM DATE: 08/13/2017 INDICATIONS: The patient is a 46 yr old male here for an EGD due to melena PROCEDURE PERFORMED: EGD w/ band ligation of varices MEDICATIONS: None and Per Anesthesia. TOPICAL ANESTHETIC: none CONSENT: The patient understands the risks and benefits of the procedure and understands that these risks include, but are not limited to: sedation, allergic reaction, infection, perforation and/or bleeding. Alternative means of evaluation and treatment include, among others: physical exam, x-rays, and/or surgical intervention. The patient elects to proceed with this endoscopic procedure. medical equipment was checked for proper function. Hand hygiene and appropriate measures for infection prevention was taken. After the risks, benefits and alternatives of the procedure were thoroughly explained, Informed consent was verified, confirmed and timeout was successfully executed by the treatment team. The patient was anesthetized with topical anesthesia and the Pentax [id number] endoscope was introduced through the mouth and advanced to the second portion of the duodenum. Retroflexion was performed and was normal The gastroscope was then slowly withdrawn and removed. ESOPHAGUS: There were large varices in the middle third of the esophagus and lower third esophagus. The varices were bleeding intermittently with spurting spot , 6 bands applied and bleeding controlled. STOMACH: There was severe and erosive gastritis in the entire examined stomach. DUODENUM: Multiple large shallow erosions were found in the duodenal bulb and 2nd part duodenum. ADVERSE EVENTS: There were no complications. IMPRESSIONS: 1. Bleeding Esophageal varices, with active bleeding identified, 6 bands applied to controll the bleeding 2. There was gastritis in the entire examined stomach 3. Multiple large erosions were found in the duodenal bulb and 2nd part duodenum RECOMMENDATIONS: Continue PPI , start Octreotide, PATIENT CONDITION: stable DISPOSITION: Observation REPEAT EXAM: Return 4 weeks EGD Chon Rodriguez MD 08/13/2017 1:38 PM Medications and IVs Current Medications Medications (Trade) Dose Ordered Sig/Nohelia Route Start Time Stop Time Status Last Admin (NS Flush) 2 ml UNSCH PRN IV FLUSH 08/12/17 11:45 08/29/17 05:48 (NS Flush) 2 ml BID IV FLUSH 08/12/17 21:00 08/31/17 13:52 (Tylenol) 650 mg Q6H PRN PO 08/12/17 11:45 08/29/17 18:25 (Zofran Inj) 4 mg Q6H PRN IV PUSH 08/12/17 11:45 08/15/17 13:52 (Albuterol Neb) 2.5 mg Q2HR NEB PRN INH 08/12/17 11:45 Miscellaneous Information 1 Q361D XX 08/12/17 11:45 (Angelika-Colace) 1 tab BID PO 08/12/17 21:00 08/31/17 14:12 (Milk Of Magnesia Liq) 30 ml Q12H PRN PO 08/12/17 11:45 (Senokot) 17.2 mg Q12H PRN PO 08/12/17 11:45 08/27/17 13:22 (Dulcolax Supp) 10 mg DAILY PRN RECTAL 08/12/17 11:45 (Lactulose Liq) 30 ml DAILY PRN PO 08/12/17 11:45 (Proamatine) 10 mg TID@,, PO 08/12/17 12:00 11/22/17 13:49 (Xanax) 1 mg Q8H PRN PO 08/12/17 12:00 08/12/17 23:53 Phenylephrine HCl 160 mg/Dextrose 500 ml @ 7.5 mls/hr TITRATE PRN IV 08/12/17 12:00 08/12/17 13:26 (Brethine Inj) 1 mg UNSCH PRN SQ 08/12/17 12:00 08/13/17 03:13 Sodium Chloride 1,000 ml @ 0 mls/hr Q0M PRN OTHER 08/13/17 13:53 08/26/17 12:50 Sodium Chloride 1,000 ml @ 200 mls/hr Q5H PRN IV 08/13/17 13:53 Sodium Chloride 1,000 ml @ 0 mls/hr Q0M PRN OTHER 08/13/17 13:53 (Mannitol Inj) 12.5 gm UNSCH PRN IV 08/13/17 14:00 Albumin Human 100 ml @ 60 mls/hr UNSCH PRN IV 08/13/17 14:00 08/22/17 16:30 (NS Flush) 5 ml UNSCH PRN IV FLUSH 08/13/17 14:00 (Zofran Inj) 4 mg UNSCH PRN IV PUSH 08/13/17 14:00 (Tylenol) 650 mg UNSCH PRN PO 08/13/17 14:00 08/24/17 16:02 (Benadryl) 25 mg UNSCH PRN PO 08/13/17 14:00 (Nitrostat Sl) 0.4 mg UNSCH PRN SL 08/13/17 14:00 (Catapres) 0.1 mg UNSCH PRN PO 08/13/17 14:00 (Gelfoam 12 Mm/7 Mm Top) 1 foam UNSCH PRN TOP 08/13/17 14:00 08/31/17 11:29 (Phoslo) 1,334 mg TID PO 08/15/17 13:00 08/31/17 13:49 (Epogen Inj) 10,000 units UNSCH PRN IV PUSH 08/16/17 10:15 08/31/17 11:28 (Protonix) 40 mg Q12HR PO 08/18/17 21:00 08/31/17 13:49 (D50w (Vial) Inj) 50 ml UNSCH PRN IV PUSH 08/22/17 08:30 08/29/17 15:33 (Glucagon Inj) 1 mg STAT PRN IM 08/22/17 08:30 Heparin Sodium/ Dextrose 250 ml @ 14 mls/hr TITRATE PRN IV 08/24/17 17:00 08/31/17 02:55 (Dilaudid Pf Inj) 0.5 mg Q4H PRN IV 08/24/17 17:00 08/31/17 06:30 ([place]ston 5-325 Mg) 1 tab Q4H PRN PO 08/24/17 17:00 ([place] 10-325 Mg) 1 tab Q4H PRN PO 08/24/17 17:00 08/31/17 14:12 (NS Flush) DAILY IV FLUSH 08/26/17 09:00 08/31/17 13:53 (NS Flush) UNSCH PRN IV FLUSH 08/25/17 14:45 (Cortef) 10 mg DAILY PO 08/27/17 09:00 08/31/17 13:49 (Claritin) 10 mg HS PO 08/28/17 21:00 08/30/17 19:50 Dextrose 1,000 ml @ 75 mls/hr [id number] IV 08/29/17 16:00 08/30/17 23:18 Vancomycin HCl 1000 mg/Sodium Chloride 250 ml @ 250 mls/hr WITH DIALYSIS IV 08/30/17 12:45 08/31/17 11:29 (Diflucan) 100 mg DAILY PO 09/01/17 09:00 09/08/17 08:59 (Ativan Inj) 1 mg ONCE ONCE IV PUSH 08/31/17 14:45 08/31/17 14:46 UNV (Ativan Inj) 1 mg ONCE ONCE IV PUSH 08/31/17 14:45 08/31/17 14:46 UNV A/P Problem List: (1) Elevated lactic acid level ICD Code: E87.2 - Acidosis Status: Acute (2) HYPOTENSION OF HEMODIALYSIS ICD Code: I95.3 - HYPOTENSION OF HEMODIALYSIS Status: Acute (3) Fever ICD Code: R50.9 - Fever, unspecified Status: Acute (4) ESRD (end stage renal disease) on dialysis ICD Code: N18.6 - End stage renal disease; Z99.2 - Dependence on renal dialysis Status: Chronic (5) Lupus (systemic lupus erythematosus) ICD Code: M32.9 - Systemic lupus erythematosus, unspecified (6) Hypoglycemia ICD Code: E16.2 - Hypoglycemia, unspecified (7) Anemia ICD Code: D64.9 - Anemia, unspecified Status: Acute (8) Chronic anticoagulation ICD Code: 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 (9) H/O hypercoagulable state ICD Code: Z86.2 - Personal history of diseases of the blood and blood-forming organs and certain disorders involving the immune mechanism (10) Elevated glucose ICD Code: R73.09 - Other abnormal glucose (11) Hypoalbuminemia ICD Code: E88.09 - Other disorders of plasma-protein metabolism, not elsewhere classified (12) Thrombocytopenia ICD Code: D69.6 - Thrombocytopenia, unspecified (13) Elevated AST (SGOT) ICD Code: R74.0 - Nonspecific elevation of levels of transaminase and lactic acid dehydrogenase [LDH] (14) Macrocytic anemia ICD Code: D53.9 - Nutritional anemia, unspecified (15) Severe sepsis ICD Code: A41.9 - Sepsis, unspecified organism; R65.20 - Severe sepsis without septic shock (16) History of DVT (deep vein thrombosis) ICD Code: Z86.718 - Personal history of other venous thrombosis and embolism (17) History of pulmonary embolism ICD Code: Z86.711 - Personal history of pulmonary embolism (18) Gastroesophageal reflux disease ICD Code: K21.9 - Gastro-esophageal reflux disease without esophagitis (19) Coronary artery disease ICD Code: I25.10 - Atherosclerotic heart disease of [place] coronary artery without angina pectoris (20) 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 Admitted secondary to severe sepsis related to pneumonia. Discharge has been on hold secondary to hypoglycemia. Right hand Accu-Chek show hypoglycemia prior to lunch dosing. Discharge held. Insulin studies show elevations. Insulinoma workup ongoing. MRI pending. No occlusive thrombus left upper extremity. He has small clots in this arm which is chronic for him. He is on heparin drip at this point. Deferring resumption of Coumadin for possible need of surgery for insulinoma. If no evidence of insulinoma on MRI consider transfer for endocrinology evaluation and management. Central line placement on 08/25/17. Hypoglycemia Not yet improved, chronic problem. May be related to depleted glycogen stores vs s/t renal disease or insulinoma. - Continue 10% IV dextrose. - Follow blood sugars q2h. - Patient will need to demonstrate stable blood sugars with only by mouth intake of sugar, prior to discharge. - MRI of abdomen and pelvis to evaluate for insulinoma. Ativan as needed for anxiety. Anxiety disorder NOS/ Acute toxic metabolic encephalopathy Stable. - Continue as needed alprazolam. Ativan IV for MRI. Severe sepsis/ History of bacteremia Resolved. Tunneled vas cath removed 08/12. - Will continue vancomycin/ cefepime /Diflucan for now per ID. Cultures remain negative. LUE edema May be s/t cellulitis. US showed: Small amount of nonocclusive thrombus in the cephalic vein, otherwise unremarkable study. - keep arm elevated. - antibiotics per ID. - will obtain an x ray of the elbow. Coronary artery disease status post stent/ PAD/ Chronic hypotension related to dialysis Clinically asymptomatic. - Continue midodrine. Elevated AST Stable. - Monitor as needed. Gastroesophageal reflux disease The pt had bleeding Esophageal varices s/p banding. Also noted was gastritis and multiple large erosions in the duodenal bulb and 2nd part duodenum - Continue Protonix. - GI follow-up as an outpatient - holding Coumadin. On heparin gtt. End-stage renal disease/ Lupus nephritis/ Hyperphosphatemia The pt is on hemodialysis Tuesday/Tuesday and Tuesday per nephrology. - Continue sevelamer 1600 mg 3 times a day for hyperphosphatemia. - dialysis. Macrocytic anemia/ Anemia of chronic kidney disease/ Acute blood loss anemia/ Thrombocytopenia/ Hypercoagulable state Stable. - Coumadin on hold for now (this had been on hold secondary to GI bleed). Continue heparin drip. - Lifelong anticoagulation. History bilateral [id number] amputation's/ Right second/third finger amputation - continue supportive care - Physical/ occupational therapy. DVT prophylaxis Coumadin on hold due to active bleeding. Resume Coumadin when stabilized. Heparin gtt. Discharge Planning Awaiting improvement in hypoglycemia Problem Qualifiers (1) Fever: Qualified Codes: R50.9 - Fever, unspecified (2) Lupus (systemic lupus erythematosus): Qualified Codes: M32.15 - Tubulo-interstitial nephropathy in systemic lupus erythematosus (3) Anemia: Qualified Codes: N18.6 - End stage renal disease; D63.1 - Anemia in chronic kidney disease; Z99.2 - Dependence on renal dialysis (4) Gastroesophageal reflux disease: Qualified Codes: K21.9 - Gastro-esophageal reflux disease without esophagitis (5) Coronary artery disease: Qualified Codes: I25.10 - Atherosclerotic heart disease of [place] coronary artery without angina pectoris Amador Oneill DO Aug 31, 2017 14:55
[2017-08-31 15:00] VITALS: BP 148/65; PULSE 110; RESP 20; TEMP 98.3; O2SAT 92
[2017-08-31] MEDS ORDERED: LORazepam 2 MG/ML VIAL IV PUSH PRN (15:00)
--- NOTE | 2017-08-31 16:39 | HHI.NPPN ---
Subjective History of Present Illness This patient is a 46-year-old male with a history of end-stage renal disease, SLE, hypertension, peripheral vascular disease as well as secondary hyperparathyroidism of renal disease. Unfortunately the patient has had multiple dialysis accesses including dialysis shunts and dialysis catheters in the past complicated by access failure as well as infection. Patient now has very limited options for dialysis access. We were relying on a left femoral dialysis line for access. Fortunately vessel surgery was able to create a left arm AV dialysis fistula back in February. We have used the access for dialysis 3 and the patient was scheduled to have his PermCath removed this Tuesday however presented to the dialysis facility with lethargy and pyrexia. Sepsis imost likely recurrence of line infection most likely consideration. Since admission however noted to have GI bleed and upper endoscopy revealed severe gastritis, and duodenum and mention of large bleeding esophageal varices Interval History Patient was seen post MRI today. He is slightly sedated but no verbal complaints. Review of Systems General Constitutional: Fatigue Cardiovascular Cardiac: Edema Objective Data Data 08/31/17 09/01/17 19:00 07:00 Output Total 4000 ml Balance -4000 ml Hemodialysis 4000 ml Vital Signs Date Time Temp Pulse Resp B/P (MAP) Pulse Ox O2 Delivery O2 Flow Rate FiO2 08/31/17 15:00 98.3 110 20 148/65 (92) 92 08/31/17 08:17 Nasal Cannula 2.00 08/31/17 08:00 98.9 90 20 128/57 (80) 96 08/31/17 04:30 Nasal Cannula 2.00 08/31/17 04:29 Nasal Cannula 2.00 08/31/17 04:00 99.1 76 17 158/72 (100) 99 08/31/17 00:00 98.8 71 18 154/70 (98) 95 08/31/17 00:00 Nasal Cannula 2.00 08/30/17 20:00 73 08/30/17 20:00 Nasal Cannula 2.00 08/30/17 20:00 99.4 78 17 155/72 (99) 93 08/30/17 19:50 98.6 74 18 143/66 (91) 97 08/30/17 16:59 Nasal Cannula 2.00 08/30/17 16:45 98.8 70 18 145/70 (95) 94 -: 08/31/17 0605 08/31/17 0625 Physical Exam General Appearance: No Acute Distress Eyes Eye Exam: Sclera White Pulmonary Resp Exam: Clear Bilaterally, Breath Sounds Equal, No Distress Cardiology CV Exam: Regular, Normal Sinus Rhythm Gastrointestinal/Abdomen GI Exam: Soft, Non-Tender Integumentary Skin Exam: Clear, Warm Extremeties Extremities Exam: No Edema, Moderate Edema (2+ pitting edema involving the hips presacral area. 3+ pitting edema involving his left upper extremity.), Pitting Edema, Dependent Edema Neurologic Neuro Exam: Alert, Awake, Speech Clear, Moving All Extremities Psychiatric Psych Exam: Appropriate Responses Assessment/Plan Discussed Condition With: Patient Problem List: (1) End-stage renal disease on hemodialysis ICD Codes: N18.6 - End stage renal disease; Z99.2 - Dependence on renal dialysis Status: Chronic Plan: Continue on MWF schedule Next dialysis will be Tuesday. (2) Hypoglycemia ICD Codes: E16.2 - Hypoglycemia, unspecified Plan: Patient's hypoglycemia may be related to his end-stage renal disease as clearance of insulin is reduced in the setting of CKD. Patient may possibly also have subclinical hepatic disease coexisting given the fact that he has varices. C-peptide levels can be elevated in the setting of chronic kidney disease secondary to reduced clearance of insulin by the kidney as well as with insulinomas. Await results of MRI scan. (3) Complications, dialysis, catheter, mechanical ICD Codes: T82.49XA - Other complication of vascular dialysis catheter, initial encounter Status: Resolved Plan: Hemodialysis PermCath removed. AV dialysis fistula appears to be working well. Blood cultures negative greater than 72 hours hours . It is possible his presentation was primarily related to GI bleed. (4) Anemia of renal disease ICD Codes: D63.1 - Anemia in chronic kidney disease Status: Chronic Plan: Epo with HD (5) Esophageal varices determined by endoscopy ICD Codes: I85.00 - Esophageal varices without bleeding Plan: As far as I'm aware the patient has no known history of cirrhosis. Previous hepatitis profile negative. 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 (7) Fever ICD Codes: R50.9 - Fever, unspecified Status: Acute Plan: Reviewed ID notes Restarted Cefepime & Fluconazole If Vanc needed, can dose after HD. Received 08/28 Blood cultures remain negative. Problem Qualifiers (1) Fever: Qualified Codes: R50.9 - Fever, unspecified Clarence Merlos MD Aug 31, 2017 16:39
--- NOTE | 2017-08-31 17:35 | RADRPT ---
EXAM DATE/TIME: 08/31/2017 15:40 [facility] COMPARISON: No previous studies available for comparison. INDICATIONS : Tumor, Insulinoma. MEDICAL HISTORY : Chronic obstructive pulmonary disease. Cerebrovascular accident. Myocardial SURGICAL HISTORY : Coronary stent. Arteriovenous shunt. Bilateral below the knee amputation. Right ENCOUNTER: Subsequent ACUITY: 4-6 days PAIN SCORE: 0/10 LOCATION: Abdomen TECHNIQUE: Multiplanar, multisequence magnetic resonance imaging of the abdomen was performed without contrast. FINDINGS: This examination is quite limited due to breathing motion artifact as well as lack of IV contrast. The kidneys are atrophic. Multiple tiny cortical cysts are observed. The largest measures 1.8 cm on t he left. The liver and gallbladder are unremarkable. No mass or ductal dilatation observed. No gallst ones observed. Common bile duct is in the normal size range measuring 5 mm. The pancreas is grossly n ormal. Pancreatic duct just out of the range of normal measuring 4 mm. No gross obstructing mass or l esion appreciated on this limited study. The remaining visceral structures are unremarkable. CONCLUSION: 1. Very limited study due to breathing motion artifact which and lack of IV contrast. 2. Atrophic kidneys with multiple tiny cortical cysts. 3. The pancreatic duct is just out of the range of normal measuring 4 mm in diameter. I'm not able to clearly identify an obstructing mass or stone on this limited study. Consideration could be made to a pancreatic protocol CT scan which is less susceptible to motion artifact. Narendra Barreto Jr., MD on August 31, 2017 at 17:26 Board Certified Radiologist. This report was verified electronically.
[2017-08-31 20:00] VITALS: BP 126/62; PULSE 103; PULSE 96; RESP 20; TEMP 98.5; O2SAT 92
[2017-08-31] MEDS: LORATADINE 10 MG TAB PO SCH (21:02)
[2017-08-31] MEDS: DEXTROSE 10% INJ 1,000 ML IV SCH (21:22)
[2017-09-01] VITALS (8 sets, daily range): BP systolic 98–134; BP diastolic 49–68; PULSE 77–103; RESP 18–20; TEMP 98.5–99.1; O2SAT 92–97
[2017-09-01 00:58] LABS: APTT (PATIENT) 36.7 SEC (24.3-30.1)
[2017-09-01] MEDS: ACETAMINOPHEN/HYDROcodone 325 MG/10 MG TAB PO PRN ×2 (03:02→10:15)
[2017-09-01] MEDS: MIDODRINE 5 MG TAB PO SCH ×3 (06:03→16:11)
[2017-09-01 07:01] LABS: MEAN CELL VOLUME 94.3 FL (80.0-100.0); MEAN CORPUSCULAR HEMOGLOBIN 31.5 PG (27.0-34.0); MEAN CORPUSCULAR HGB CONC 33.4 % (32.0-36.0); PLATELET COUNT 114 TH/MM3 (150-450); RED BLOOD COUNT 2.55 MIL/MM3 (4.50-5.90); RED CELL DISTRIBUTION WIDTH 20.9 % (11.6-17.2); REVIEW FLAG FINAL; WHITE BLOOD COUNT 10.3 TH/MM3 (4.0-11.0)
[2017-09-01 07:13] LABS: BICARBONATE 29.3 MEQ/L (21.0-32.0); MAGNESIUM 1.8 MG/DL (1.5-2.5)
[2017-09-01] MEDS: SODIUM CHLORIDE 0.9% FLUSH 10 ML FLUSH IV FLUSH SCH ×3 (09:00→20:57)
[2017-09-01] MEDS: DOCUSATE SODIUM 50 MG/SENNA 8.6 MG TAB PO SCH ×2 (10:11→20:58)
[2017-09-01] MEDS: CALCIUM ACETATE 667 MG CAP PO SCH ×3 (10:11→16:11)
[2017-09-01] MEDS: HYDROCORTISONE 10 MG TAB PO SCH (10:11)
[2017-09-01] MEDS: PANTOPRAZOLE SOD 40 MG DELAYED RELEASE TAB PO SCH ×2 (10:12→20:58)
[2017-09-01] MEDS: FLUCONAZOLE 100 MG TAB PO SCH (10:12)
[2017-09-01] MEDS: DEXTROSE 10% INJ 1,000 ML IV SCH (10:13)
[2017-09-01 10:32] LABS: APTT (PATIENT) 55.3 SEC (24.3-30.1)
--- NOTE | 2017-09-01 10:36 | HHI.PR ---
Subjective Remarks The patient was resting comfortably in bed. His brother was at the bedside and was wondering about the swelling in the patient's left arm. The patient had no acute complaints. Their questions were answered. Objective Vitals Vital Signs Date Time Temp Pulse Resp B/P (MAP) Pulse Ox O2 Delivery O2 Flow Rate FiO2 09/01/17 04:00 98.8 95 20 124/68 (86) 92 09/01/17 00:00 99.1 103 18 134/63 (86) 94 09/01/17 00:00 Nasal Cannula 2.00 08/31/17 20:00 96 08/31/17 20:00 98.5 103 20 126/62 (83) 92 08/31/17 15:00 98.3 110 20 148/65 (92) 92 I/O 08/31/17 08/31/17 08/31/17 09/01/17 09/01/17 09/01/17 07:00 15:00 23:00 07:00 15:00 23:00 Intake Total 240 ml 240 ml 100 ml Output Total 4000 ml Balance 240 ml -4000 ml 240 ml 100 ml Intake Oral 240 ml 240 ml 100 ml Hemodialysis 4000 ml # Voids 0 # Bowel Movements 0 Result Diagram: 09/01/17 0620 09/01/17 0620 Imaging Last Impressions Abdomen MRI 08/31/17 0000 Signed Impressions: Service Date/Time: Thursday, August 31, 2017 15:40 - CONCLUSION: 1. Very limited study due to breathing motion artifact which and lack of IV contrast. 2. Atrophic kidneys with multiple tiny cortical cysts. 3. The pancreatic duct is just out of the range of normal measuring 4 mm in diameter. I'm not able to clearly identify an obstructing mass or stone on this limited study. Consideration could be made to a pancreatic protocol CT scan which is less susceptible to motion artifact. Narendra Barreto Jr., MD Chest X-Ray 08/28/17 0000 Signed Impressions: Service Date/Time: Monday, August 28, 2017 01:05 - CONCLUSION: Bilateral costophrenic angle interstitial infiltrates, stable on the right and increased on the left. Probable associated small bilateral pleural effusions. Narendra Ralph MD Abdomen Ultrasound 08/26/17 0000 Signed Impressions: Service Date/Time: Saturday, August 26, 2017 08:06 - CONCLUSION: 1. Kidneys are echogenic which can be seen with medical renal disease. 2. Cholelithiasis. 3. Mild prominence of the main pancreatic duct. Devyn Hickey MD Central Venous Line 08/25/17 0000 Signed Impressions: Service Date/Time: August 14:47 - CONCLUSION: Uncomplicated line placement as above. Tavares Ventura MD Upper Extremity Ultrasound 08/24/17 0000 Signed Impressions: Service Date/Time: Thursday, August 24, 2017 23:03 - CONCLUSION: Small amount of non occlusive thrombus in the cephalic vein otherwise unremarkable study. Very impressive soft tissue edema in the subcutaneous fat. Ehsan Archibald MD Objective Remarks GENERAL: NAD, A&Ox3 HEAD: Normocephalic. NECK: Supple, trachea midline. No lymphadenopathy. EYES: No scleral icterus. No injection or drainage. CARDIOVASCULAR: Regular rate and rhythm without murmurs, gallops, or rubs. RESPIRATORY: Breath sounds equal bilaterally. No accessory muscle use. GASTROINTESTINAL: Abdomen soft, non-tender, nondistended. MUSCULOSKELETAL: No cyanosis. History bilateral [id number] amputation's. Right second/third finger amputations. Left arm edema, tenderness to palpation. SKIN: Warm and dry. Scars of right forearm NEURO: No focal neurological deficitis. Procedures EGD PROCEDURE REPORT EXAM DATE: 08/13/2017 INDICATIONS: The patient is a 46 yr old male here for an EGD due to melena PROCEDURE PERFORMED: EGD w/ band ligation of varices MEDICATIONS: None and Per Anesthesia. TOPICAL ANESTHETIC: none CONSENT: The patient understands the risks and benefits of the procedure and understands that these risks include, but are not limited to: sedation, allergic reaction, infection, perforation and/or bleeding. Alternative means of evaluation and treatment include, among others: physical exam, x-rays, and/or surgical intervention. The patient elects to proceed with this endoscopic procedure. medical equipment was checked for proper function. Hand hygiene and appropriate measures for infection prevention was taken. After the risks, benefits and alternatives of the procedure were thoroughly explained, Informed consent was verified, confirmed and timeout was successfully executed by the treatment team. The patient was anesthetized with topical anesthesia and the Pentax [id number] endoscope was introduced through the mouth and advanced to the second portion of the duodenum. Retroflexion was performed and was normal The gastroscope was then slowly withdrawn and removed. ESOPHAGUS: There were large varices in the middle third of the esophagus and lower third esophagus. The varices were bleeding intermittently with spurting spot , 6 bands applied and bleeding controlled. STOMACH: There was severe and erosive gastritis in the entire examined stomach. DUODENUM: Multiple large shallow erosions were found in the duodenal bulb and 2nd part duodenum. ADVERSE EVENTS: There were no complications. IMPRESSIONS: 1. Bleeding Esophageal varices, with active bleeding identified, 6 bands applied to controll the bleeding 2. There was gastritis in the entire examined stomach 3. Multiple large erosions were found in the duodenal bulb and 2nd part duodenum RECOMMENDATIONS: Continue PPI , start Octreotide, PATIENT CONDITION: stable DISPOSITION: Observation REPEAT EXAM: Return 4 weeks EGD Chon Rodriguez MD 08/13/2017 1:38 PM Medications and IVs Current Medications Medications (Trade) Dose Ordered Sig/Nohelia Route Start Time Stop Time Status Last Admin (NS Flush) 2 ml UNSCH PRN IV FLUSH 08/12/17 11:45 08/31/17 14:50 (NS Flush) 2 ml BID IV FLUSH 08/12/17 21:00 08/31/17 21:02 (Tylenol) 650 mg Q6H PRN PO 08/12/17 11:45 08/29/17 18:25 (Zofran Inj) 4 mg Q6H PRN IV PUSH 08/12/17 11:45 08/15/17 13:52 (Albuterol Neb) 2.5 mg Q2HR NEB PRN INH 08/12/17 11:45 Miscellaneous Information 1 Q361D XX 08/12/17 11:45 (Angelika-Colace) 1 tab BID PO 08/12/17 21:00 09/01/17 10:11 (Milk Of Magnesia Liq) 30 ml Q12H PRN PO 08/12/17 11:45 (Senokot) 17.2 mg Q12H PRN PO 08/12/17 11:45 08/27/17 13:22 (Dulcolax Supp) 10 mg DAILY PRN RECTAL 08/12/17 11:45 (Lactulose Liq) 30 ml DAILY PRN PO 08/12/17 11:45 (Proamatine) 10 mg TID@,12,17 PO 08/12/17 12:00 09/01/17 10:12 (Xanax) 1 mg Q8H PRN PO 08/12/17 12:00 08/12/17 23:53 Phenylephrine HCl 160 mg/Dextrose 500 ml @ 7.5 mls/hr TITRATE PRN IV 08/12/17 12:00 08/12/17 13:26 (Brethine Inj) 1 mg UNSCH PRN SQ 08/12/17 12:00 08/13/17 03:13 Sodium Chloride 1,000 ml @ 0 mls/hr Q0M PRN OTHER 08/13/17 13:53 08/26/17 12:50 Sodium Chloride 1,000 ml @ 200 mls/hr Q5H PRN IV 08/13/17 13:53 Sodium Chloride 1,000 ml @ 0 mls/hr Q0M PRN OTHER 08/13/17 13:53 (Mannitol Inj) 12.5 gm UNSCH PRN IV 08/13/17 14:00 Albumin Human 100 ml @ 60 mls/hr UNSCH PRN IV 08/13/17 14:00 08/22/17 16:30 (NS Flush) 5 ml UNSCH PRN IV FLUSH 08/13/17 14:00 (Zofran Inj) 4 mg UNSCH PRN IV PUSH 08/13/17 14:00 (Tylenol) 650 mg UNSCH PRN PO 08/13/17 14:00 08/24/17 16:02 (Benadryl) 25 mg UNSCH PRN PO 08/13/17 14:00 (Nitrostat Sl) 0.4 mg UNSCH PRN SL 08/13/17 14:00 (Catapres) 0.1 mg UNSCH PRN PO 08/13/17 14:00 (Gelfoam 12 Mm/7 Mm Top) 1 foam UNSCH PRN TOP 08/13/17 14:00 08/31/17 11:29 (Phoslo) 1,334 mg TID PO 08/15/17 13:00 09/01/17 10:11 (Epogen Inj) 10,000 units UNSCH PRN IV PUSH 08/16/17 10:15 08/31/17 11:28 (Protonix) 40 mg Q12HR PO 08/18/17 21:00 09/01/17 10:12 (D50w (Vial) Inj) 50 ml UNSCH PRN IV PUSH 08/22/17 08:30 08/29/17 15:33 (Glucagon Inj) 1 mg STAT PRN IM 08/22/17 08:30 Heparin Sodium/ Dextrose 250 ml @ 14 mls/hr TITRATE PRN IV 08/24/17 17:00 08/31/17 21:11 (Dilaudid Pf Inj) 0.5 mg Q4H PRN IV 08/24/17 17:00 08/31/17 06:30 ([place] 5-325 Mg) 1 tab Q4H PRN PO 08/24/17 17:00 ([place] 10-325 Mg) 1 tab Q4H PRN PO 08/24/17 17:00 09/01/17 10:15 (NS Flush) DAILY IV FLUSH 08/26/17 09:00 08/31/17 13:53 (NS Flush) UNSCH PRN IV FLUSH 08/25/17 14:45 (Cortef) 10 mg DAILY PO 08/27/17 09:00 09/01/17 10:11 (Claritin) 10 mg HS PO 08/28/17 21:00 08/31/17 21:02 Dextrose 1,000 ml @ 75 mls/hr [id number] IV 08/29/17 16:00 09/01/17 10:13 Vancomycin HCl 1000 mg/Sodium Chloride 250 ml @ 250 mls/hr WITH DIALYSIS IV 08/30/17 12:45 09/06/17 23:00 08/31/17 11:29 (Diflucan) 100 mg DAILY PO 09/01/17 09:00 09/08/17 08:59 09/01/17 10:12 A/P Problem List: (1) Elevated lactic acid level ICD Code: E87.2 - Acidosis Status: Acute (2) HYPOTENSION OF HEMODIALYSIS ICD Code: I95.3 - HYPOTENSION OF HEMODIALYSIS Status: Acute (3) Fever ICD Code: R50.9 - Fever, unspecified Status: Acute (4) ESRD (end stage renal disease) on dialysis ICD Code: N18.6 - End stage renal disease; Z99.2 - Dependence on renal dialysis Status: Chronic (5) Lupus (systemic lupus erythematosus) ICD Code: M32.9 - Systemic lupus erythematosus, unspecified (6) Hypoglycemia ICD Code: E16.2 - Hypoglycemia, unspecified (7) Anemia ICD Code: D64.9 - Anemia, unspecified Status: Acute (8) Chronic anticoagulation ICD Code: Z79.01 - detention (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 of anticoagulants (9) H/O hypercoagulable state ICD Code: Z86.2 - Personal history of diseases of the blood and blood-forming organs and certain disorders involving the immune mechanism (10) Elevated glucose ICD Code: R73.09 - Other abnormal glucose (11) Hypoalbuminemia ICD Code: E88.09 - Other disorders of plasma-protein metabolism, not elsewhere classified (12) Thrombocytopenia ICD Code: D69.6 - Thrombocytopenia, unspecified (13) Elevated AST (SGOT) ICD Code: R74.0 - Nonspecific elevation of levels of transaminase and lactic acid dehydrogenase [LDH] (14) Macrocytic anemia ICD Code: D53.9 - Nutritional anemia, unspecified (15) Severe sepsis ICD Code: A41.9 - Sepsis, unspecified organism; R65.20 - Severe sepsis without septic shock (16) History of DVT (deep vein thrombosis) ICD Code: Z86.718 - Personal history of other venous thrombosis and embolism (17) History of pulmonary embolism ICD Code: Z86.711 - Personal history of pulmonary embolism (18) Gastroesophageal reflux disease ICD Code: K21.9 - Gastro-esophageal reflux disease without esophagitis (19) Coronary artery disease ICD Code: I25.10 - Atherosclerotic heart disease of [place] coronary artery without angina pectoris (20) 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 Admitted secondary to severe sepsis related to pneumonia. Discharge has been on hold secondary to hypoglycemia. Right hand Accu-Chek show hypoglycemia prior to lunch dosing. Discharge held. Insulin studies show elevations. Insulinoma workup ongoing. MRI pending. No occlusive thrombus left upper extremity. He has small clots in this arm which is chronic for him. He is on heparin drip at this point. Deferring resumption of Coumadin for possible need of surgery for insulinoma. If no evidence of insulinoma on MRI consider transfer for endocrinology evaluation and management. Central line placement on 08/25/17. Hypoglycemia Not yet improved, chronic problem. May be related to depleted glycogen stores vs s/t renal disease or insulinoma. - switch 10% IV dextrose to D5W. - Follow blood sugars q2h. - Patient will need to demonstrate stable blood sugars with only by mouth intake of sugar, prior to discharge. - MRI of abdomen and pelvis with motion artifact, so study was inconclusive. Pt unable to tolerate contrast, so CT pancreatic protocol cannot be done. Will look into transferring the pt to facility with endocrinology department. Anxiety disorder NOS/ Acute toxic metabolic encephalopathy Stable. - Continue as needed alprazolam. Ativan IV for MRI. Severe sepsis/ History of bacteremia Resolved. Tunneled vas cath removed 08/12. - Will continue vancomycin/ cefepime /Diflucan for now per ID. Cultures remain negative. LUE edema May be s/t cellulitis. US showed: Small amount of nonocclusive thrombus in the cephalic vein, otherwise unremarkable study. - keep arm elevated. - antibiotics per ID. - CT pending. Coronary artery disease status post stent/ PAD/ Chronic hypotension related to dialysis Clinically asymptomatic. - Continue midodrine. Elevated AST Stable. - Monitor as needed. Gastroesophageal reflux disease The pt had bleeding Esophageal varices s/p banding. Also noted was gastritis and multiple large erosions in the duodenal bulb and 2nd part duodenum - Continue Protonix. - GI follow-up as an outpatient - holding Coumadin. On heparin gtt. End-stage renal disease/ Lupus nephritis/ Hyperphosphatemia The pt is on hemodialysis Tuesday/Tuesday and Tuesday per nephrology. - Continue sevelamer 1600 mg 3 times a day for hyperphosphatemia. - dialysis. Macrocytic anemia/ Anemia of chronic kidney disease/ Acute blood loss anemia/ Thrombocytopenia/ Hypercoagulable state Stable. - Coumadin on hold for now (this had been on hold secondary to GI bleed). Continue heparin drip. - Lifelong anticoagulation. History bilateral [id number] amputation's/ Right second/third finger amputation - continue supportive care - Physical/ occupational therapy. DVT prophylaxis Coumadin on hold due to active bleeding. Resume Coumadin when stabilized. Heparin gtt. Discharge Planning Awaiting improvement in hypoglycemia. Possibly transfer to tertiary facility. Problem Qualifiers (1) Fever: Qualified Codes: R50.9 - Fever, unspecified (2) Lupus (systemic lupus erythematosus): Qualified Codes: M32.15 - Tubulo-interstitial nephropathy in systemic lupus erythematosus (3) Anemia: Qualified Codes: N18.6 - End stage renal disease; D63.1 - Anemia in chronic kidney disease; Z99.2 - Dependence on renal dialysis (4) Gastroesophageal reflux disease: Qualified Codes: K21.9 - Gastro-esophageal reflux disease without esophagitis (5) Coronary artery disease: Qualified Codes: I25.10 - Atherosclerotic heart disease of [place] coronary artery without angina pectoris Amador Oneill DO Sep 01, 2017 10:36
[2017-09-01] MEDS: DEXTROSE 5% IN WATE 1000ML INJ 1,000 ML IV SCH ×2 (11:57→20:45)
[2017-09-01] MEDS: ACETAMINOPHEN/HYDROcodone 325 MG/5 MG TAB PO PRN (16:11)
[2017-09-01 20:26] LABS: APTT (PATIENT) 55.7 SEC (24.3-30.1)
[2017-09-01] MEDS: LORATADINE 10 MG TAB PO SCH (20:58)
[2017-09-01] MEDS: HEPARIN-D5W 25,000 U/250 ML 250 ML IV PRN (21:03)
[2017-09-02] VITALS (9 sets, daily range): BP systolic 116–162; BP diastolic 57–72; PULSE 83–103; RESP 18–25; TEMP 97.7–99.9; O2SAT 92–96
[2017-09-02] MEDS: ACETAMINOPHEN/HYDROcodone 325 MG/10 MG TAB PO PRN ×4 (03:29→20:53)
[2017-09-02] MEDS: DEXTROSE 5% IN WATE 1000ML INJ 1,000 ML IV SCH (05:50)
[2017-09-02] MEDS: MIDODRINE 5 MG TAB PO SCH ×3 (05:50→19:35)
[2017-09-02 06:15] LABS: HEMATOCRIT 25.5 % (39.0-51.0); MEAN CELL VOLUME 93.2 FL (80.0-100.0); MEAN CORPUSCULAR HEMOGLOBIN 30.5 PG (27.0-34.0); MEAN CORPUSCULAR HGB CONC 32.7 % (32.0-36.0); PLATELET COUNT 138 TH/MM3 (150-450); RED BLOOD COUNT 2.74 MIL/MM3 (4.50-5.90); RED CELL DISTRIBUTION WIDTH 21.4 % (11.6-17.2); REVIEW FLAG FINAL; WHITE BLOOD COUNT 8.4 TH/MM3 (4.0-11.0)
[2017-09-02 06:29] LABS: APTT (PATIENT) 79.7 SEC (24.3-30.1)
[2017-09-02 06:53] LABS: BICARBONATE 28.1 MEQ/L (21.0-32.0); MAGNESIUM 1.6 MG/DL (1.5-2.5); POTASSIUM 3.9 MEQ/L (3.5-5.1)
[2017-09-02] MEDS: SODIUM CHLORIDE 0.9% FLUSH 10 ML FLUSH IV FLUSH SCH ×3 (09:00→20:57)
[2017-09-02] MEDS: CALCIUM ACETATE 667 MG CAP PO SCH ×3 (09:00→19:34)
[2017-09-02] MEDS: DOCUSATE SODIUM 50 MG/SENNA 8.6 MG TAB PO SCH ×2 (09:00→20:53)
[2017-09-02] MEDS ORDERED: DEXT 5%-NACL 0.9% 1000 ML INJ 1,000 ML IV SCH (10:00)
--- NOTE | 2017-09-02 11:47 | HHI.NPPN ---
Subjective History of Present Illness This patient is a 46-year-old male with a history of end-stage renal disease, SLE, hypertension, peripheral vascular disease as well as secondary hyperparathyroidism of renal disease. Unfortunately the patient has had multiple dialysis accesses including dialysis shunts and dialysis catheters in the past complicated by access failure as well as infection. Patient now has very limited options for dialysis access. We were relying on a left femoral dialysis line for access. Fortunately vessel surgery was able to create a left arm AV dialysis fistula back in February. We have used the access for dialysis 3 and the patient was scheduled to have his PermCath removed this Tuesday however presented to the dialysis facility with lethargy and pyrexia. Sepsis imost likely recurrence of line infection most likely consideration. Since admission however noted to have GI bleed and upper endoscopy revealed severe gastritis, and duodenum and mention of large bleeding esophageal varices Interval History Patient with no verbal complaints but is anxious to get the hospital. Review of Systems General Constitutional: Fatigue Cardiovascular Cardiac: Edema Objective Data Data Vital Signs Date Time Temp Pulse Resp B/P (MAP) Pulse Ox O2 Delivery O2 Flow Rate FiO2 09/02/17 08:00 99.9 98 18 137/61 (86) 93 09/02/17 04:00 98.0 83 18 142/72 (95) 93 09/02/17 00:00 99.4 88 18 147/65 (92) 92 09/01/17 20:30 78 09/01/17 20:30 96 Nasal Cannula 2.00 09/01/17 20:00 98.7 77 18 130/60 (83) 97 09/01/17 16:00 98.5 86 18 110/57 (74) 93 09/01/17 12:00 98.9 86 20 117/55 (75) 95 -: 09/02/17 0600 09/02/17 0600 Physical Exam General Appearance: No Acute Distress Eyes Eye Exam: Sclera White Pulmonary Resp Exam: Clear Bilaterally, Breath Sounds Equal, No Distress Cardiology CV Exam: Regular, Normal Sinus Rhythm Gastrointestinal/Abdomen GI Exam: Soft, Non-Tender Integumentary Skin Exam: Clear, Warm Extremeties Extremities Exam: No Edema, Moderate Edema (2+ pitting edema involving the hips presacral area. 3+ pitting edema involving his left upper extremity.), Pitting Edema, Dependent Edema Neurologic Neuro Exam: Alert, Awake, Speech Clear, Moving All Extremities Psychiatric Psych Exam: Appropriate Responses Assessment/Plan Discussed Condition With: Patient Problem List: (1) End-stage renal disease on hemodialysis ICD Codes: N18.6 - End stage renal disease; Z99.2 - Dependence on renal dialysis Status: Chronic Plan: Patient was seen during dialysis today. His dialysis fistula appears to be working well. Still with significant edema involving his left upper extremity. We will try for additional ultrafiltration today to see if this will help to improve the edema. (2) Hypoglycemia ICD Codes: E16.2 - Hypoglycemia, unspecified Plan: Patient's hypoglycemia may be related to his end-stage renal disease as clearance of insulin is reduced in the setting of CKD. Patient may possibly also have subclinical hepatic disease coexisting given the fact that he has varices. C-peptide levels can be elevated in the setting of chronic kidney disease secondary to reduced clearance of insulin by the kidney as well as with insulinomas. Await results of MRI scan. (3) Complications, dialysis, catheter, mechanical ICD Codes: T82.49XA - Other complication of vascular dialysis catheter, initial encounter Status: Resolved Plan: Hemodialysis PermCath removed. AV dialysis fistula appears to be working well. Blood cultures negative greater than 72 hours hours . It is possible his presentation was primarily related to GI bleed. (4) Anemia of renal disease ICD Codes: D63.1 - Anemia in chronic kidney disease Status: Chronic Plan: Epo with HD (5) Esophageal varices determined by endoscopy ICD Codes: I85.00 - Esophageal varices without bleeding Plan: As far as I'm aware the patient has no known history of cirrhosis. Previous hepatitis profile negative. 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 (7) Fever ICD Codes: R50.9 - Fever, unspecified Status: Acute Plan: Reviewed ID notes Restarted Cefepime & Fluconazole If Vanc needed, can dose after HD. Received 08/28 Blood cultures remain negative. Problem Qualifiers (1) Fever: Qualified Codes: R50.9 - Fever, unspecified Clarence Merlos MD Sep 02, 2017 11:47
[2017-09-02] MEDS: VANCOMYCIN INJ 1,000 MG in SODIUM CHLOR 0.9% 250 ML INJ 250 ML IV SCH (12:18)
[2017-09-02] MEDS: EPOETIN ALFA 10,000 UNITS/ML VIAL IV PUSH PRN (12:20)
[2017-09-02 12:55] LABS: APTT (PATIENT) 45.7 SEC (24.3-30.1)
[2017-09-02] MEDS: DEXTROSE 50% IN WATER 50 ML VIAL(D50) IV PUSH PRN (13:32)
[2017-09-02] MEDS ORDERED: SODIUM CHLORIDE 23.4% INJ 154 MEQ in DEXTROSE 10% INJ 1,000 ML IV SCH (14:00)
[2017-09-02] MEDS: PANTOPRAZOLE SOD 40 MG DELAYED RELEASE TAB PO SCH ×2 (14:06→20:53)
[2017-09-02] MEDS: HYDROCORTISONE 10 MG TAB PO SCH (14:06)
[2017-09-02] MEDS: FLUCONAZOLE 100 MG TAB PO SCH (14:06)
[2017-09-02 14:22] LABS: BICARBONATE 29.3 MEQ/L (21.0-32.0); POTASSIUM 3.4 MEQ/L (3.5-5.1)
[2017-09-02] MEDS ORDERED: LORazepam 2 MG/ML VIAL IV PUSH ONE (15:15)
--- NOTE | 2017-09-02 15:21 | HHI.PR ---
Subjective Remarks The patient said that his left arm was hurting him a lot. Nursing reports that he has been refusing the CAT scan of his arm. His family was at the bedside. They reported that the patient has not been eating that much. Discussed with nursing and case management. Objective Vitals Vital Signs Date Time Temp Pulse Resp B/P (MAP) Pulse Ox O2 Delivery O2 Flow Rate FiO2 09/02/17 13:19 97.7 100 18 142/65 (90) 92 09/02/17 08:00 99.9 98 18 137/61 (86) 93 09/02/17 04:00 98.0 83 18 142/72 (95) 93 09/02/17 00:00 99.4 88 18 147/65 (92) 92 09/01/17 20:30 78 09/01/17 20:30 96 Nasal Cannula 2.00 09/01/17 20:00 98.7 77 18 130/60 (83) 97 09/01/17 16:00 98.5 86 18 110/57 (74) 93 I/O 09/01/17 09/01/17 09/01/17 09/02/17 09/02/17 09/02/17 07:00 15:00 23:00 07:00 15:00 23:00 Intake Total 100 ml 1000 ml 1850 ml 120 ml Output Total 4000 ml Balance 100 ml 1000 ml 1850 ml 120 ml -4000 ml Intake Oral 100 ml 600 ml 120 ml IV Total 1000 ml 1250 ml Hemodialysis 4000 ml # Voids 0 0 # Bowel Movements 0 0 Result Diagram: 09/02/17 0600 09/02/17 1345 Imaging Last Impressions Abdomen MRI 08/31/17 0000 Signed Impressions: Service Date/Time: Thursday, August 31, 2017 15:40 - CONCLUSION: 1. Very limited study due to breathing motion artifact which and lack of IV contrast. 2. Atrophic kidneys with multiple tiny cortical cysts. 3. The pancreatic duct is just out of the range of normal measuring 4 mm in diameter. I'm not able to clearly identify an obstructing mass or stone on this limited study. Consideration could be made to a pancreatic protocol CT scan which is less susceptible to motion artifact. Narendra Barreto Jr., MD Chest X-Ray 08/28/17 0000 Signed Impressions: Service Date/Time: Monday, August 28, 2017 01:05 - CONCLUSION: Bilateral costophrenic angle interstitial infiltrates, stable on the right and increased on the left. Probable associated small bilateral pleural effusions. Narendra Ralph MD Abdomen Ultrasound 08/26/17 0000 Signed Impressions: Service Date/Time: Saturday, August 26, 2017 08:06 - CONCLUSION: 1. Kidneys are echogenic which can be seen with medical renal disease. 2. Cholelithiasis. 3. Mild prominence of the main pancreatic duct. Devyn Hickey MD Central Venous Line 08/25/17 0000 Signed Impressions: Service Date/Time: August 14:47 - CONCLUSION: Uncomplicated line placement as above. Tavares Ventura MD Upper Extremity Ultrasound 08/24/17 0000 Signed Impressions: Service Date/Time: Thursday, August 24, 2017 23:03 - CONCLUSION: Small amount of non occlusive thrombus in the cephalic vein otherwise unremarkable study. Very impressive soft tissue edema in the subcutaneous fat. Ehsan Archibald MD Objective Remarks GENERAL: NAD, A&Ox3 HEAD: Normocephalic. NECK: Supple, trachea midline. No lymphadenopathy. EYES: No scleral icterus. No injection or drainage. CARDIOVASCULAR: Regular rate and rhythm without murmurs, gallops, or rubs. RESPIRATORY: Breath sounds equal bilaterally. No accessory muscle use. GASTROINTESTINAL: Abdomen soft, non-tender, nondistended. MUSCULOSKELETAL: No cyanosis. History bilateral [id number] amputation's. Right second/third finger amputations. Left arm edema, induration, tenderness to palpation. SKIN: Warm and dry. Scars of right forearm NEURO: No focal neurological deficitis. Procedures EGD PROCEDURE REPORT EXAM DATE: 08/13/2017 INDICATIONS: The patient is a 46 yr old male here for an EGD due to melena PROCEDURE PERFORMED: EGD w/ band ligation of varices MEDICATIONS: None and Per Anesthesia. TOPICAL ANESTHETIC: none CONSENT: The patient understands the risks and benefits of the procedure and understands that these risks include, but are not limited to: sedation, allergic reaction, infection, perforation and/or bleeding. Alternative means of evaluation and treatment include, among others: physical exam, x-rays, and/or surgical intervention. The patient elects to proceed with this endoscopic procedure. medical equipment was checked for proper function. Hand hygiene and appropriate measures for infection prevention was taken. After the risks, benefits and alternatives of the procedure were thoroughly explained, Informed consent was verified, confirmed and timeout was successfully executed by the treatment team. The patient was anesthetized with topical anesthesia and the Pentax [id number] endoscope was introduced through the mouth and advanced to the second portion of the duodenum. Retroflexion was performed and was normal The gastroscope was then slowly withdrawn and removed. ESOPHAGUS: There were large varices in the middle third of the esophagus and lower third esophagus. The varices were bleeding intermittently with spurting spot , 6 bands applied and bleeding controlled. STOMACH: There was severe and erosive gastritis in the entire examined stomach. DUODENUM: Multiple large shallow erosions were found in the duodenal bulb and 2nd part duodenum. ADVERSE EVENTS: There were no complications. IMPRESSIONS: 1. Bleeding Esophageal varices, with active bleeding identified, 6 bands applied to controll the bleeding 2. There was gastritis in the entire examined stomach 3. Multiple large erosions were found in the duodenal bulb and 2nd part duodenum RECOMMENDATIONS: Continue PPI , start Octreotide, PATIENT CONDITION: stable DISPOSITION: Observation REPEAT EXAM: Return 4 weeks EGD Chon Rodriguez MD 08/13/2017 1:38 PM Medications and IVs Current Medications Medications (Trade) Dose Ordered Sig/Nohelia Route Start Time Stop Time Status Last Admin (NS Flush) 2 ml UNSCH PRN IV FLUSH 08/12/17 11:45 08/31/17 14:50 (NS Flush) 2 ml BID IV FLUSH 08/12/17 21:00 09/02/17 14:05 (Tylenol) 650 mg Q6H PRN PO 08/12/17 11:45 08/29/17 18:25 (Zofran Inj) 4 mg Q6H PRN IV PUSH 08/12/17 11:45 08/15/17 13:52 (Albuterol Neb) 2.5 mg Q2HR NEB PRN INH 08/12/17 11:45 Miscellaneous Information 1 Q361D XX 08/12/17 11:45 (Angelika-Colace) 1 tab BID PO 08/12/17 21:00 09/01/17 20:58 (Milk Of Magnesia Liq) 30 ml Q12H PRN PO 08/12/17 11:45 (Senokot) 17.2 mg Q12H PRN PO 08/12/17 11:45 08/27/17 13:22 (Dulcolax Supp) 10 mg DAILY PRN RECTAL 08/12/17 11:45 (Lactulose Liq) 30 ml DAILY PRN PO 08/12/17 11:45 (Proamatine) 10 mg TID@07,,17 PO 08/12/17 12:00 09/02/17 14:07 (Xanax) 1 mg Q8H PRN PO 08/12/17 12:00 08/12/17 23:53 Phenylephrine HCl 160 mg/Dextrose 500 ml @ 7.5 mls/hr TITRATE PRN IV 08/12/17 12:00 08/12/17 13:26 (Brethine Inj) 1 mg UNSCH PRN SQ 08/12/17 12:00 08/13/17 03:13 Sodium Chloride 1,000 ml @ 0 mls/hr Q0M PRN OTHER 08/13/17 13:53 08/26/17 12:50 Sodium Chloride 1,000 ml @ 200 mls/hr Q5H PRN IV 08/13/17 13:53 Sodium Chloride 1,000 ml @ 0 mls/hr Q0M PRN OTHER 08/13/17 13:53 (Mannitol Inj) 12.5 gm UNSCH PRN IV 08/13/17 14:00 Albumin Human 100 ml @ 60 mls/hr UNSCH PRN IV 08/13/17 14:00 08/22/17 16:30 (NS Flush) 5 ml UNSCH PRN IV FLUSH 08/13/17 14:00 (Zofran Inj) 4 mg UNSCH PRN IV PUSH 08/13/17 14:00 (Tylenol) 650 mg UNSCH PRN PO 08/13/17 14:00 08/24/17 16:02 (Benadryl) 25 mg UNSCH PRN PO 08/13/17 14:00 (Nitrostat Sl) 0.4 mg UNSCH PRN SL 08/13/17 14:00 (Catapres) 0.1 mg UNSCH PRN PO 08/13/17 14:00 (Gelfoam 12 Mm/7 Mm Top) 1 foam UNSCH PRN TOP 08/13/17 14:00 08/31/17 11:29 (Phoslo) 1,334 mg TID PO 08/15/17 13:00 09/02/17 14:06 (Epogen Inj) 10,000 units UNSCH PRN IV PUSH 08/16/17 10:15 09/02/17 12:20 (Protonix) 40 mg Q12HR PO 08/18/17 21:00 09/02/17 14:06 (D50w (Vial) Inj) 50 ml UNSCH PRN IV PUSH 08/22/17 08:30 09/02/17 13:32 (Glucagon Inj) 1 mg STAT PRN IM 08/22/17 08:30 Heparin Sodium/ Dextrose 250 ml @ 14 mls/hr TITRATE PRN IV 08/24/17 17:00 09/01/17 21:03 (Dilaudid Pf Inj) 0.5 mg Q4H PRN IV 08/24/17 17:00 08/31/17 06:30 (Freer 5-325 Mg) 1 tab Q4H PRN PO 08/24/17 17:00 09/01/17 16:11 (Freer 10-325 Mg) 1 tab Q4H PRN PO 08/24/17 17:00 09/02/17 14:02 (NS Flush) DAILY IV FLUSH 08/26/17 09:00 09/02/17 09:00 (NS Flush) UNSCH PRN IV FLUSH 08/25/17 14:45 (Cortef) 10 mg DAILY PO 08/27/17 09:00 09/02/17 14:06 (Claritin) 10 mg HS PO 08/28/17 21:00 09/01/17 20:58 Vancomycin HCl 1000 mg/Sodium Chloride 250 ml @ 250 mls/hr WITH DIALYSIS IV 08/30/17 12:45 09/06/17 23:00 09/02/17 12:18 (Diflucan) 100 mg DAILY PO 09/01/17 09:00 09/08/17 08:59 09/02/17 14:06 Sodium Chloride 154 meq/Dextrose 1,038.5 ml @ 30 mls/hr Q24H IV 09/02/17 14:00 09/02/17 14:40 (Ativan Inj) 0.5 mg ONCE ONCE IV PUSH 09/02/17 15:15 09/02/17 15:16 UNV A/P Problem List: (1) Elevated lactic acid level ICD Code: E87.2 - Acidosis Status: Acute (2) HYPOTENSION OF HEMODIALYSIS ICD Code: I95.3 - HYPOTENSION OF HEMODIALYSIS Status: Acute (3) Fever ICD Code: R50.9 - Fever, unspecified Status: Acute (4) ESRD (end stage renal disease) on dialysis ICD Code: N18.6 - End stage renal disease; Z99.2 - Dependence on renal dialysis Status: Chronic (5) Lupus (systemic lupus erythematosus) ICD Code: M32.9 - Systemic lupus erythematosus, unspecified (6) Hypoglycemia ICD Code: E16.2 - Hypoglycemia, unspecified (7) Anemia ICD Code: D64.9 - Anemia, unspecified Status: Acute (8) Chronic anticoagulation ICD Code: Z79.01 - bed bug 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 (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 of anticoagulants (9) H/O hypercoagulable state ICD Code: Z86.2 - Personal history of diseases of the blood and blood-forming organs and certain disorders involving the immune mechanism (10) Elevated glucose ICD Code: R73.09 - Other abnormal glucose (11) Hypoalbuminemia ICD Code: E88.09 - Other disorders of plasma-protein metabolism, not elsewhere classified (12) Thrombocytopenia ICD Code: D69.6 - Thrombocytopenia, unspecified (13) Elevated AST (SGOT) ICD Code: R74.0 - Nonspecific elevation of levels of transaminase and lactic acid dehydrogenase [LDH] (14) Macrocytic anemia ICD Code: D53.9 - Nutritional anemia, unspecified (15) Severe sepsis ICD Code: A41.9 - Sepsis, unspecified organism; R65.20 - Severe sepsis without septic shock (16) History of DVT (deep vein thrombosis) ICD Code: Z86.718 - Personal history of other venous thrombosis and embolism (17) History of pulmonary embolism ICD Code: Z86.711 - Personal history of pulmonary embolism (18) Gastroesophageal reflux disease ICD Code: K21.9 - Gastro-esophageal reflux disease without esophagitis (19) Coronary artery disease ICD Code: I25.10 - Atherosclerotic heart disease of [place] coronary artery without angina pectoris (20) 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 Admitted secondary to severe sepsis related to pneumonia. Discharge has been on hold secondary to hypoglycemia. Right hand Accu-Chek show hypoglycemia prior to lunch dosing. Discharge held. Insulin studies show elevations. Insulinoma workup ongoing. MRI pending. No occlusive thrombus left upper extremity. He has small clots in this arm which is chronic for him. He is on heparin drip at this point. Deferring resumption of Coumadin for possible need of surgery for insulinoma. If no evidence of insulinoma on MRI consider transfer for endocrinology evaluation and management. Central line placement on 08/25/17. Hypoglycemia Not yet improved, chronic problem. May be related to depleted glycogen stores vs s/t renal disease or insulinoma. MRI of abdomen and pelvis with motion artifact, so study was inconclusive. Pt with contrast allergy and ESRD, so CT pancreatic protocol cannot be done. - on D10 infusion. - Follow blood sugars q2h. - Patient will need to demonstrate stable blood sugars with only by mouth intake of sugar, prior to discharge. - Will look into transferring the pt to facility with endocrinology department. manager student services assistance appreciated. [facility] accepted pt. LUE edema May be s/t cellulitis. Tender to palpation. US showed: Small amount of nonocclusive thrombus in the cephalic vein, otherwise unremarkable study. - keep arm elevated. - antibiotics per ID. - CT pending. The pt has been refusing the CT scan. Discussed the importance of obtaining the scan to rule out pathological processes other than the known nonocclusive thrombus. He was agreeable. - pain control with a bowel regimen. Acute respiratory failure Required NRB at 100% 09/02. CXR prelim read with possible left infiltrate. - await formal CXR read. - BiPAP as needed. - transfer to ICU. - digital pre press operator consult requested. A fib with RVR New onset. Noted on EKG. - Diltiazem gtt and PO. - telemetry. - continue heparin gtt. Anxiety disorder NOS/ Acute toxic metabolic encephalopathy Stable. - Continue as needed alprazolam. Severe sepsis/ History of bacteremia Resolved. Tunneled vas cath removed 08/12. - Will continue vancomycin/ cefepime /Diflucan for now per ID. Cultures remain negative. Coronary artery disease status post stent/ PAD/ Chronic hypotension related to dialysis Clinically asymptomatic. - Continue midodrine. Gastroesophageal reflux disease The pt had bleeding Esophageal varices s/p banding. Also noted was gastritis and multiple large erosions in the duodenal bulb and 2nd part of the duodenum. - Continue Protonix. - GI follow-up as an outpatient - holding Coumadin. On heparin gtt. End-stage renal disease/ Lupus nephritis/ Hyperphosphatemia The pt is on hemodialysis Tuesday/Tuesday and Tuesday per nephrology. - Continue sevelamer 1600 mg 3 times a day for hyperphosphatemia. - dialysis. Macrocytic anemia/ Anemia of chronic kidney disease/ Acute blood loss anemia/ Thrombocytopenia/ Hypercoagulable state Stable. - Coumadin on hold for now (this had been on hold secondary to GI bleed). Continue heparin drip. - Lifelong anticoagulation. History bilateral [id number] amputation's/ Right second/third finger amputation - continue supportive care - Physical/ occupational therapy. DVT prophylaxis Coumadin on hold due to active bleeding. Resume Coumadin when stabilized. Heparin gtt. Discharge Planning Transfer to [facility] once stabilized. Problem Qualifiers (1) Fever: Qualified Codes: R50.9 - Fever, unspecified (2) Lupus (systemic lupus erythematosus): Qualified Codes: M32.15 - Tubulo-interstitial nephropathy in systemic lupus erythematosus (3) Anemia: Qualified Codes: N18.6 - End stage renal disease; D63.1 - Anemia in chronic kidney disease; Z99.2 - Dependence on renal dialysis (4) Gastroesophageal reflux disease: Qualified Codes: K21.9 - Gastro-esophageal reflux disease without esophagitis (5) Coronary artery disease: Qualified Codes: I25.10 - Atherosclerotic heart disease of [place] coronary artery without angina pectoris Amador Oneill DO Sep 02, 2017 15:21
[2017-09-02] MEDS: HEPARIN-D5W 25,000 U/250 ML 250 ML IV PRN (15:39)
[2017-09-02] MEDS ORDERED: XANA1TAB2 PO (15:44)
[2017-09-02] MEDS ORDERED: VANC1000P IV (15:44)
[2017-09-02] MEDS ORDERED: DIFL100T PO (15:44)
[2017-09-02] MEDS ORDERED: HYDR-3583 PO (15:44)
[2017-09-02] MEDS ORDERED: HYDRO10 PO (15:44)
[2017-09-02] MEDS ORDERED: CLAR10TA7 PO (15:44)
[2017-09-02] MEDS ORDERED: MIDO5TAB PO (15:44)
[2017-09-02] MEDS ORDERED: RESP: ALBUTEROL 2.5 MG/IPRATROPIUM 0.5 MG NEB (SCH) NEB ONE (16:00)
[2017-09-02] MEDS: HYDROmorphone HCL PF 0.5 MG/0.5 ML SYRINGE IV PRN (16:26)
[2017-09-02] MEDS ORDERED: DEXTROSE 10% INJ 1,000 ML IV SCH (16:45)
--- NOTE | 2017-09-02 16:51 | HHI.DS ---
Discharge Summary Admission Date Aug 12, 2017 at 11:54 Discharge Date: Sep 03, 2017 Admitting Diagnosis Severe Sepsis (PNA); GI Bleed; Anemia (1) Elevated lactic acid level ICD Code: E87.2 - Acidosis Diagnosis: Principal Status: Acute (2) HYPOTENSION OF HEMODIALYSIS ICD Code: I95.3 - HYPOTENSION OF HEMODIALYSIS Diagnosis: Principal Status: Acute (3) Fever ICD Code: R50.9 - Fever, unspecified Diagnosis: Principal Status: Acute (4) ESRD (end stage renal disease) on dialysis ICD Code: N18.6 - End stage renal disease; Z99.2 - Dependence on renal dialysis Diagnosis: Principal Status: Chronic (5) Lupus (systemic lupus erythematosus) ICD Code: M32.9 - Systemic lupus erythematosus, unspecified Diagnosis: Secondary (6) Hypoglycemia ICD Code: E16.2 - Hypoglycemia, unspecified Diagnosis: Secondary (7) Anemia ICD Code: D64.9 - Anemia, unspecified Diagnosis: Secondary Status: Acute (8) Chronic anticoagulation ICD Code: Z79.01 - snf (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 of anticoagulants Diagnosis: Principal (9) H/O hypercoagulable state ICD Code: Z86.2 - Personal history of diseases of the blood and blood-forming organs and certain disorders involving the immune mechanism Diagnosis: Principal (10) Elevated glucose ICD Code: R73.09 - Other abnormal glucose Diagnosis: Principal (11) Hypoalbuminemia ICD Code: E88.09 - Other disorders of plasma-protein metabolism, not elsewhere classified Diagnosis: Principal (12) Thrombocytopenia ICD Code: D69.6 - Thrombocytopenia, unspecified Diagnosis: Principal (13) Elevated AST (SGOT) ICD Code: R74.0 - Nonspecific elevation of levels of transaminase and lactic acid dehydrogenase [LDH] Diagnosis: Principal (14) Macrocytic anemia ICD Code: D53.9 - Nutritional anemia, unspecified Diagnosis: Principal (15) Severe sepsis ICD Code: A41.9 - Sepsis, unspecified organism; R65.20 - Severe sepsis without septic shock Diagnosis: Principal (16) History of DVT (deep vein thrombosis) ICD Code: Z86.718 - Personal history of other venous thrombosis and embolism Diagnosis: Principal (17) History of pulmonary embolism ICD Code: Z86.711 - Personal history of pulmonary embolism Diagnosis: Secondary (18) Gastroesophageal reflux disease ICD Code: K21.9 - Gastro-esophageal reflux disease without esophagitis Diagnosis: Secondary (19) Coronary artery disease ICD Code: I25.10 - Atherosclerotic heart disease of [place] coronary artery without angina pectoris Diagnosis: Principal (20) Lupus nephritis ICD Code: M32.14 - Glomerular disease in systemic lupus erythematosus Diagnosis: Secondary Status: Chronic (21) PAD (peripheral artery disease) ICD Code: I73.9 - Peripheral vascular disease, unspecified Diagnosis: Secondary Procedures EGD PROCEDURE REPORT EXAM DATE: 08/13/2017 INDICATIONS: The patient is a 46 yr old male here for an EGD due to melena PROCEDURE PERFORMED: EGD w/ band ligation of varices MEDICATIONS: None and Per Anesthesia. TOPICAL ANESTHETIC: none CONSENT: The patient understands the risks and benefits of the procedure and understands that these risks include, but are not limited to: sedation, allergic reaction, infection, perforation and/or bleeding. Alternative means of evaluation and treatment include, among others: physical exam, x-rays, and/or surgical intervention. The patient elects to proceed with this endoscopic procedure. medical equipment was checked for proper function. Hand hygiene and appropriate measures for infection prevention was taken. After the risks, benefits and alternatives of the procedure were thoroughly explained, Informed consent was verified, confirmed and timeout was successfully executed by the treatment team. The patient was anesthetized with topical anesthesia and the Pentax [id number] endoscope was introduced through the mouth and advanced to the second portion of the duodenum. Retroflexion was performed and was normal The gastroscope was then slowly withdrawn and removed. ESOPHAGUS: There were large varices in the middle third of the esophagus and lower third esophagus. The varices were bleeding intermittently with spurting spot , 6 bands applied and bleeding controlled. STOMACH: There was severe and erosive gastritis in the entire examined stomach. DUODENUM: Multiple large shallow erosions were found in the duodenal bulb and 2nd part duodenum. ADVERSE EVENTS: There were no complications. IMPRESSIONS: 1. Bleeding Esophageal varices, with active bleeding identified, 6 bands applied to controll the bleeding 2. There was gastritis in the entire examined stomach 3. Multiple large erosions were found in the duodenal bulb and 2nd part duodenum RECOMMENDATIONS: Continue PPI , start Octreotide, PATIENT CONDITION: stable DISPOSITION: Observation REPEAT EXAM: Return 4 weeks EGD Chon Rodriguez MD 08/13/2017 1:38 PM Brief History - From Admission This is a 46-year-old AA male. Date of admission . Past medical history includes SLE, lupus nephritis, end-stage renal disease on hemodialysis Tuesday/Tuesday and Tuesday per Dr. Merlos, history of pulmonary embolism/SVC thrombus, peripheral arterial disease, gastroesophageal reflux disease, anemia of chronic kidney disease, anxiety along with hyperphosphatemia. According to mother at bedside, patient started feeling "sick" yesterday become increasingly lethargic. Unknown if febrile/malaise/myalgias. Patient presented to his regular scheduled hemodialysis today where he was hypotensive, tachycardic and febrile. His right AV fistula graft is currently heparinized with syringes intact and in place. In the ED, patient received 1 L normal saline and 1 PRBC. Patient stool guaiac positive. Lactate was 6.6. Patient does have a white cell count. He has a macrocytic anemia and thrombocytopenia. During his last admission was diagnosed with staph epi/coag negative staph bacteremia. He was planned to have his left hemodialysis vascular catheter/femoral removed on Tuesday according to his mother bedside. He was on vancomycin scheduled with hemodialysis and oral Diflucan as an outpatient. Of note his baseline systolic blood pressure is in the 80s. CBC/BMP: 09/02/17 0600 09/02/17 1345 Significant Findings Laboratory Tests Test 08/31/17 06:05 08/31/17 06:25 08/31/17 07:30 08/31/17 18:20 Red Blood Count 2.84 MIL/MM3 (4.50-5.90) Hemoglobin 8.7 GM/DL (13.0-17.0) Hematocrit 26.7 % (39.0-51.0) Red Cell Distribution Width 21.0 % (11.6-17.2) Platelet Count 108 TH/MM3 (150-450) Blood Urea Nitrogen 49 MG/DL (7-18) Creatinine 8.66 MG/DL (0.60-1.30) Sodium Level 128 MEQ/L (136-145) Chloride Level 88 MEQ/L (98-107) Estimat Glomerular Filtration Rate 8 ML/MIN (>89) Activated Partial Thromboplast Time 82.9 SEC (24.3-30.1) Test 08/31/17 23:45 09/01/17 06:20 09/01/17 09:52 09/01/17 19:56 Activated Partial Thromboplast Time 36.7 SEC (24.3-30.1) 55.3 SEC (24.3-30.1) 55.7 SEC (24.3-30.1) Red Blood Count 2.55 MIL/MM3 (4.50-5.90) Hemoglobin 8.0 GM/DL (13.0-17.0) Hematocrit 24.0 % (39.0-51.0) Red Cell Distribution Width 20.9 % (11.6-17.2) Platelet Count 114 TH/MM3 (150-450) Blood Urea Nitrogen 33 MG/DL (7-18) Creatinine 7.12 MG/DL (0.60-1.30) Random Glucose 107 MG/DL (74-106) Calcium Level 8.4 MG/DL (8.5-10.1) Sodium Level 131 MEQ/L (136-145) Chloride Level 92 MEQ/L (98-107) Estimat Glomerular Filtration Rate 10 ML/MIN (>89) Test 09/02/17 06:00 09/02/17 12:00 09/02/17 13:45 Red Blood Count 2.74 MIL/MM3 (4.50-5.90) Hemoglobin 8.4 GM/DL (13.0-17.0) Hematocrit 25.5 % (39.0-51.0) Red Cell Distribution Width 21.4 % (11.6-17.2) Platelet Count 138 TH/MM3 (150-450) Activated Partial Thromboplast Time 79.7 SEC (24.3-30.1) 45.7 SEC (24.3-30.1) Blood Urea Nitrogen 41 MG/DL (7-18) 22 MG/DL (7-18) Creatinine 8.65 MG/DL (0.60-1.30) 5.16 MG/DL (0.60-1.30) Random Glucose 171 MG/DL (74-106) 367 MG/DL (74-106) Calcium Level 8.1 MG/DL (8.5-10.1) 8.0 MG/DL (8.5-10.1) Sodium Level 126 MEQ/L (136-145) 125 MEQ/L (136-145) Chloride Level 87 MEQ/L (98-107) 88 MEQ/L (98-107) Estimat Glomerular Filtration Rate 8 ML/MIN (>89) 15 ML/MIN (>89) Potassium Level 3.4 MEQ/L (3.5-5.1) Imaging Last Impressions Upper Extremity CT 09/02/17 1505 Signed Impressions: Service Date/Time: Saturday, September 02, 2017 17:09 - CONCLUSION: Very impressive soft tissue edema across the forearm. There is fluid between the fascia and the subcutaneous fat. Ehsan Archibald MD Chest X-Ray 09/02/17 0000 Signed Impressions: Service Date/Time: Saturday, September 02, 2017 16:00 - CONCLUSION: Stable mild diffuse vascular prominence similar to previous study. Small amounts of air space disease both lung bases left greater than right unchanged. Ehsan Archibald MD Abdomen MRI 08/31/17 0000 Signed Impressions: Service Date/Time: Thursday, August 31, 2017 15:40 - CONCLUSION: 1. Very limited study due to breathing motion artifact which and lack of IV contrast. 2. Atrophic kidneys with multiple tiny cortical cysts. 3. The pancreatic duct is just out of the range of normal measuring 4 mm in diameter. I'm not able to clearly identify an obstructing mass or stone on this limited study. Consideration could be made to a pancreatic protocol CT scan which is less susceptible to motion artifact. Narendra Barreto Jr., MD Abdomen Ultrasound 08/26/17 0000 Signed Impressions: Service Date/Time: Saturday, August 26, 2017 08:06 - CONCLUSION: 1. Kidneys are echogenic which can be seen with medical renal disease. 2. Cholelithiasis. 3. Mild prominence of the main pancreatic duct. Devyn Hickey MD Central Venous Line 08/25/17 0000 Signed Impressions: Service Date/Time: August 14:47 - CONCLUSION: Uncomplicated line placement as above. Tavares Ventura MD Upper Extremity Ultrasound 08/24/17 0000 Signed Impressions: Service Date/Time: Thursday, August 24, 2017 23:03 - CONCLUSION: Small amount of non occlusive thrombus in the cephalic vein otherwise unremarkable study. Very impressive soft tissue edema in the subcutaneous fat. Ehsan Archibald MD Last Impressions Abdomen MRI 08/31/17 0000 Signed Impressions: Service Date/Time: Thursday, August 31, 2017 15:40 - CONCLUSION: 1. Very limited study due to breathing motion artifact which and lack of IV contrast. 2. Atrophic kidneys with multiple tiny cortical cysts. 3. The pancreatic duct is just out of the range of normal measuring 4 mm in diameter. I'm not able to clearly identify an obstructing mass or stone on this limited study. Consideration could be made to a pancreatic protocol CT scan which is less susceptible to motion artifact. Narendra Barreto Jr., MD Chest X-Ray 08/28/17 0000 Signed Impressions: Service Date/Time: Monday, August 28, 2017 01:05 - CONCLUSION: Bilateral costophrenic angle interstitial infiltrates, stable on the right and increased on the left. Probable associated small bilateral pleural effusions. Narendra Ralph MD Abdomen Ultrasound 08/26/17 0000 Signed Impressions: Service Date/Time: Saturday, August 26, 2017 08:06 - CONCLUSION: 1. Kidneys are echogenic which can be seen with medical renal disease. 2. Cholelithiasis. 3. Mild prominence of the main pancreatic duct. Devyn Hickey MD Central Venous Line 08/25/17 0000 Signed Impressions: Service Date/Time: August 14:47 - CONCLUSION: Uncomplicated line placement as above. Tavares Ventura MD Upper Extremity Ultrasound 08/24/17 0000 Signed Impressions: Service Date/Time: Thursday, August 24, 2017 23:03 - CONCLUSION: Small amount of non occlusive thrombus in the cephalic vein otherwise unremarkable study. Very impressive soft tissue edema in the subcutaneous fat. Ehsan Archibald MD PE at Discharge GENERAL: NAD, A&Ox3 HEAD: Normocephalic. NECK: Supple, trachea midline. No lymphadenopathy. EYES: No scleral icterus. No injection or drainage. CARDIOVASCULAR: Regular rate and rhythm without murmurs, gallops, or rubs. RESPIRATORY: Breath sounds equal bilaterally. No accessory muscle use. GASTROINTESTINAL: Abdomen soft, non-tender, nondistended. MUSCULOSKELETAL: No cyanosis. History bilateral [id number] amputation's. Right second/third finger amputations. Left arm edema, induration, tenderness to palpation. SKIN: Warm and dry. Scars of right forearm NEURO: No focal neurological deficitis. Hospital Course Hypoglycemia The pt required a constant D10 infusion with blood sugar checks every 2 hours. MRI of abdomen and pelvis to evaluate for insulinoma was with motion artifact, so study was inconclusive. Pt with contrast allergy and ESRD, so CT pancreatic protocol could not be done. The pt continued to have bouts of hypoglycemia, especially following dialysis. Case management assisted with transferring the patient to a facility with an endocrinology department available. He will be discharged on D10W at 30 ml/hr. Current blood sugar frequency is q2h. LUE edema Tender to palpation. ID treating for possible cellulitis. US showed: Small amount of nonocclusive thrombus in the cephalic vein, otherwise unremarkable study. We tried to keep his arm elevated. A CT scan of the extremity was ordered but the pt has been refusing the CT scan. Discussed the importance of obtaining the scan to rule out pathological processes other than the known nonocclusive thrombus. He was then agreeable. He is on a heparin gtt. CT revealed: Very impressive soft tissue edema across the forearm; There is fluid between the fascia and the subcutaneous fat. He may need a surgical evaluation. Acute respiratory failure The pt's oxygen saturation went down to the low 80s 09/02. He was placed on a 100% nonrebreather. CXR unremarkable. ABG was stable. He improved overnight. Low oxygen saturation may have been s/t PVD causing unreliable readings with out oxygen monitors. The pt is currently breathing comfortably and saturating well. Hypercoagulable state/ Anemia Coumadin has been on hold and he is on a heparin drip. He requires lifelong anticoagulation for his hypercoagulable state. When no further work-up is required he may be resumed on Coumadin. For now the pt will continue the heparin gtt and he will be discharged on it. Severe sepsis/ History of bacteremia Infectious disease was consulted. Tunneled vas cath removed 08/12. On vancomycin , cefepime and Diflucan per ID. Cultures remain negative. He will continue vancomycin after dialysis and Diflucan upon discharge. He will require an infectious disease consult upon arrival at the new facility. GIB/ Gastroesophageal reflux disease The pt had bleeding esophageal varices s/p banding by GI. Also noted was gastritis and multiple large erosions in the duodenal bulb and 2nd part of the duodenum. He will continue a PPI. He will have GI follow-up as an outpatient. Currently tolerating a heparin gtt. End-stage renal disease/ Lupus nephritis/ Hyperphosphatemia The pt is on hemodialysis Tuesday/Tuesday and Tuesday per nephrology. He will continue sevelamer 1600 mg 3 times a day for hyperphosphatemia. Nephrology will need to be consulted for resumption of dialysis. History bilateral [id number] amputation's/ Right second/third finger amputation We continued supportive care. The pt worked with physical and occupational therapy and should continue to do so at the new facility. Tachycardia EKG read 09/02 was A fib. He was started on a Cardizem gtt. It appears the EKG was sinus tachycardia with PVCs. He appears sinus on telemetry. Repeat EKG also with sinus rhythm. Cardizem was discontinued. Pt Condition on Discharge: Good Discharge Disposition: Discharge Home Discharge Time: > 30 minutes Discharge Instructions DIET: Follow Instructions for: Renal Failure Diet Activities you can perform: Regular-No Restrictions Follow up Referrals: Gastroenterology Nephrology PCP Follow-up New Orders: PT/INR New Medications: Dextrose 10 % in Water (Dextrose 10%-Water IV Solution) 10 % Iv.soln 30 ML IV CONTINUOUS for hypoglycemia for 7 Days, ML Heparin Sod,Porcine/0.9 % NaCl (Heparin 25,000 Unit/250 ml-Ns) 25,000 Unit/250 Ml (100 Unit/Ml) Iv.soln 24100 UNITS IV CONTINUOUS for Hypercoagulable state for 7 Days, UNITS Fluconazole (Diflucan) 100 Mg Tab 100 MG PO DAILY for Infection, #7 TAB Hydrocodone/Acetaminophen (Hydrocodone-Acetamin 10-325 mg) 10 Mg-325 Mg Tablet 1 TAB PO Q4H PRN for PAIN SCALE 1 TO 10, #7 TAB Hydrocortisone (Cortef) 10 Mg Tab 10 MG PO DAILY for Adrenal insufficiency, #5 TAB Take with food to decresae GI upset Loratadine (Claritin) 10 Mg Tablet 10 MG PO HS for Allergies, #30 TAB Midodrine (Midodrine) 5 Mg Tab 10 MG PO TID@07,12,17 for Blood pressure, #30 TAB Pantoprazole (Pantoprazole) 40 Mg Tab 40 MG PO Q12HR for GI bleed for 30 Days, TAB 0 Refills Continued Medications: Alprazolam (Xanax) 1 Mg Tab 1 MG PO Q8H PRN for ANXIETY, #7 TAB 0 Refills (This prescription has been renewed) Blood-Glucose Meter (Blood Glucose Monitor) 1 Each Kit KIT for hypoglycemia, #1 0 Refills Fludrocortisone (Fludrocortisone) 0.1 Mg Tab 0.1 MG PO WITH DIALYSIS for adrenal insufficency, #30 TAB 0 Refills Sennosides-Docusate Sodium (Senna Plus 8.6-50 mg) 8.6 Mg-50 Mg Tab 1 TAB PO BID for constipation, #30 TAB 0 Refills Sevelamer HCl (Renagel) 800 Mg Tab 1600 MG PO TID for Control phosphorus levels, #180 TAB 0 Refills Vancomycin Inj (Vancomycin Inj) 1,000 Mg Inj 1000 MG IV 3xA WEEK WITH DIALYS for Infection for 7 Days, BAG 0 Refills (This prescription has been renewed) Discontinued Medications: Fluconazole (Diflucan) 200 Mg Tab 400 MG PO DAILY for infection, #14 TAB 0 Refills Hydrocortisone (Hydrocortisone) 20 Mg Tab 20 MG PO BID for adrenal insufficency, #26 TAB 0 Refills take 1 tab twice a day for 1 weeks then decrease to 1/2 tablet twice day for 1 weeks then take 1/2 tablet once a day for 5 day then stop medication Pantoprazole (Protonix) 20 Mg Tab 20 MG PO DAILY for Reflux, #30 TAB 0 Refills Warfarin (Warfarin) 4 Mg Tab 4 MG PO DAILY for Blood Clot Prevention, #30 TAB 0 Refills Warfarin (Coumadin) 3 Mg Tab 3 MG PO DAILY@1600 for DVT, #30 TAB 0 Refills need INR rechecked in 2-3 days to see if this dose is right for you. Amador Oneill DO Sep 02, 2017 16:51
--- NOTE | 2017-09-02 16:53 | RADRPT ---
EXAM DATE/TIME: 09/02/2017 16:00 [facility] COMPARISON: CHEST SINGLE AP, August 28, 2017, 1:05. INDICATIONS : Shortness of breath. MEDICAL HISTORY : Chronic obstructive pulmonary disease. Myocardial infarction. Cerebrovascular accident. SURGICAL HISTORY : Coronary stent. Arteriovenous shunt. Bilateral below the knee amputation. ENCOUNTER: Subsequent ACUITY: 1 day PAIN SCORE: 0/10 LOCATION: Bilateral chest FINDINGS: A single view of the chest demonstrates small amount of basilar airspace disease left greater than ri ght. Stable exam, minimal pulmonary vascular prominence is unchanged. The cardiomediastinal contour s are unremarkable. Osseous structures are intact. CONCLUSION: Stable mild diffuse vascular prominence similar to previous study. Small amounts of air space disease both lung bases left greater than right unchanged. Ehsan Archibald MD on September 02, 2017 at 16:50 Board Certified Radiologist. This report was verified electronically.
[2017-09-02] MEDS ORDERED: DILTIAZEM INJ 125 MG in SODIUM CHLORIDE 0.9% INJ 100 ML IV PRN (17:00)
--- NOTE | 2017-09-02 17:45 | RADRPT ---
EXAM DATE/TIME: 09/02/2017 17:09 [facility] COMPARISON: No previous studies available for comparison. INDICATIONS : Left forearm pain, joint pain. RADIATION DOSE: 19.07 CTDIvol (mGy) MEDICAL HISTORY : Deep venous thrombosis. Cardiovascular disease Renal failure, acute.Dialyasis, CVA SURGICAL HISTORY : AV Shunt ENCOUNTER: Initial ACUITY: 1 day PAIN SCALE: 8/10 LOCATION: Left TECHNIQUE: Volumetric scanning of the forearm was performed. Using automated exposure control and adjustment of the mA and/or kV according to patient size, radiation dose was kept as low as reasonably achievable to obtain optimal diagnostic quality images. DICOM format image data is available electronically for review and comparison. FINDINGS: BONES: No evidence of fracture. Alignment is within normal limits. JOINTS: No evidence of joint narrowing or effusion. SOFT TISSUES: Very impressive edema in the forearm. There is some fluid developing between the muscular fascia in t he subcutaneous fat and one and not a usual finding.. CONCLUSION: Very impressive soft tissue edema across the forearm. There is fluid between the fascia and the subcu taneous fat. Ehsan Archibald MD on September 02, 2017 at 17:41 Board Certified Radiologist. This report was verified electronically.
[2017-09-02] MEDS: DILTIAZEM HCL 30 MG TAB PO SCH ×2 (19:34→20:53)
[2017-09-02 20:31] LABS: ANION GAP 8 MEQ/L (5-15); BICARBONATE 29.6 MEQ/L (21.0-32.0); BLOOD UREA NITROGEN 26 MG/DL (7-18); CHLORIDE 91 MEQ/L (98-107); GLOMERULAR FILTRATION RATE 12 ML/MIN (>89); SODIUM (NA) 129 MEQ/L (136-145)
[2017-09-02] MEDS: ALPRAZolam 1 MG TAB PO PRN (20:53)
[2017-09-02] MEDS: LORATADINE 10 MG TAB PO SCH (20:57)
--- NOTE | 2017-09-02 21:09 | HHI.CCPN ---
Subjective Remarks/Hospital Course Hospital Course: This is a 46-year-old AA male. Date of admission . Past medical history includes SLE, lupus nephritis, end-stage renal disease on hemodialysis Tuesday/Tuesday and Tuesday per Dr. Merlos, history of pulmonary embolism/SVC thrombus, peripheral arterial disease, gastroesophageal reflux disease, anemia of chronic kidney disease, anxiety along with hyperphosphatemia. According to mother at bedside, patient started feeling "sick" yesterday become increasingly lethargic. Unknown if febrile/malaise/myalgias. Patient presented to his regular scheduled hemodialysis today where he was hypotensive, tachycardic and febrile. His right AV fistula graft is currently heparinized with syringes intact and in place. In the ED, patient received 1 L normal saline and 1 PRBC. Patient stool guaiac positive. Lactate was 6.6. Patient does have a white cell count. He has a macrocytic anemia and thrombocytopenia. During his last admission was diagnosed with staph epi/coag negative staph bacteremia. He was planned to have his left hemodialysis vascular catheter/femoral removed on Tuesday according to his mother bedside. He was on vancomycin scheduled with hemodialysis and oral Diflucan as an outpatient. Of note his baseline systolic blood pressure is in the 80s. Subjective: 08/13: taken urgently for endoscopy for UGIB. banded active esophageal varices. started on clear liquid diet per GI. lactate bumped this morning, likely secondary to active bleeding, but now bleeding has subsided. patient subjectively feels better than yesterday- currently on HD on my eval. 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 He was transferred to [facility] and critical care services were reconsulted. Objective Vital Signs Date Time Temp Pulse Resp B/P (MAP) Pulse Ox O2 Delivery O2 Flow Rate FiO2 09/02/17 18:00 98.8 103 20 116/58 (77) 09/02/17 18:00 Non-Rebreather 15.00 100 09/02/17 13:19 92 Intake and Output 09/02/17 09/02/17 09/03/17 08:00 16:00 00:00 Intake Total 120 ml 720 ml Output Total 4000 ml Balance 120 ml -4000 ml 720 ml Result Diagram: 09/02/17 0600 09/02/17 1912 Imaging Last Impressions Chest X-Ray 08/12/17 0910 Signed Impressions: Service Date/Time: Saturday, August 12, 2017 09:25 - CONCLUSION: 1. Stable scattered patchiness bilaterally. Chon Nye MD Objective Remarks GENERAL: 46-year-old AA male, currently resting in bed febrile in no acute distress SKIN: Warm and dry. HEAD: Atraumatic. Normocephalic. EYES: Pupils equal and round about 3 mm bilaterally and reactive. No scleral icterus. No injection or drainage. ENT: No nasal bleeding or discharge. Mucous membranes pink and moist. Oropharynx without erythema NECK: Trachea midline. No JVD. CARDIOVASCULAR: Tachycardic, RR. RESPIRATORY: No accessory muscle use. Breath sounds equal bilaterally. GASTROINTESTINAL: Abdomen soft, non-tender, nondistended. MUSCULOSKELETAL: bilateral oxhmc-[id number] amputation. Left upper extremity edema NEUROLOGICAL: Awake and alert, oriented x 3. follows commands. RASS 0. Procedures EGD PROCEDURE REPORT EXAM DATE: 08/13/2017 INDICATIONS: The patient is a 46 yr old male here for an EGD due to melena PROCEDURE PERFORMED: EGD w/ band ligation of varices MEDICATIONS: None and Per Anesthesia. TOPICAL ANESTHETIC: none CONSENT: The patient understands the risks and benefits of the procedure and understands that these risks include, but are not limited to: sedation, allergic reaction, infection, perforation and/or bleeding. Alternative means of evaluation and treatment include, among others: physical exam, x-rays, and/or surgical intervention. The patient elects to proceed with this endoscopic procedure. medical equipment was checked for proper function. Hand hygiene and appropriate measures for infection prevention was taken. After the risks, benefits and alternatives of the procedure were thoroughly explained, Informed consent was verified, confirmed and timeout was successfully executed by the treatment team. The patient was anesthetized with topical anesthesia and the Pentax EG-[id number] endoscope was introduced through the mouth and advanced to the second portion of the duodenum. Retroflexion was performed and was normal The gastroscope was then slowly withdrawn and removed. ESOPHAGUS: There were large varices in the middle third of the esophagus and lower third esophagus. The varices were bleeding intermittently with spurting spot , 6 bands applied and bleeding controlled. STOMACH: There was severe and erosive gastritis in the entire examined stomach. DUODENUM: Multiple large shallow erosions were found in the duodenal bulb and 2nd part duodenum. ADVERSE EVENTS: There were no complications. IMPRESSIONS: 1. Bleeding Esophageal varices, with active bleeding identified, 6 bands applied to controll the bleeding 2. There was gastritis in the entire examined stomach 3. Multiple large erosions were found in the duodenal bulb and 2nd part duodenum RECOMMENDATIONS: Continue PPI , start Octreotide, PATIENT CONDITION: stable DISPOSITION: Observation REPEAT EXAM: Return 4 weeks EGD Chon Rodriguez MD 08/13/2017 1:38 PM A/P Assessment and Plan 46-year-old gentleman with ESRD who was originally admitted with tunneled perm-a -cath infection, severe sepsis, and active upper GI bleed s/p urgent endoscopy and esophageal banding. The patient was transferred to [facility] floor however prior discharge his sugars were found to be extremely low. The patient was awaiting the transfer to [facility] for further workup by associate account director, when he developed acute respiratory distress. Neuro/Psych: Anxiety disorder NOS Acute toxic metabolic encephalopathy likely secondary to severe sepsis - resolved. Continue alprazolam 1 mg every 8 hours when necessary anxiety Acetaminophen 650 mg every 6 hours when necessary fever Noted allergy to morphine sulfate CV: Severe sepsis - improving. Lactic acidosis - resolved Coronary artery disease status post stent PAD Echocardiogram 04/25 revealed EF 55-60%. Mild left ventricular hypertrophy. Trace TR. Serial lactates until clear Resp: Asthma? Chronic bibasilar opacification Patient has been refusing BiPAP In the ICU he is in no distress with respirations at 16's Wean to Nasal cannula to maintain saturations greater than or equal to 92% Incentive spirometry while awake Albuterol/ipratropium aerosols every 6 hours with albuterol aerosols every 2 hours when necessary for Dyspnea GI: Elevated AST Gastroesophageal reflux disease GI bleed on admission Continue pantoprazole Docusate sodium/senna 1 tablet twice a day for bowel regimen Gastroenterology consult appreciated : No indication for Monroy catheter Endo: Recent hydrocortisone use Recurrent hypoglycemia Continue hydrocortisone by mouth Renal: End-stage renal disease on chronic intermittent hemodialysis Tuesday/Tuesday and Tuesday secondary to lupus nephritis Hyperphosphatemia Hemodialysis and further management per nephrology Heme: Macrocytic anemia Anemia of chronic kidney disease and acute blood loss Thrombocytopenia Hypercoagulable state On chronic warfarin therapy. Last evaluation in [address] Oreilly. At that time workup negative except for low protein S. Did not recommend repeating. Recommended lifelong anticoagulation due to history of PE/ DVT/SVC thrombus etc. Daily CBC/coags. Transfuse as clinically indicated to maintain hemoglobin greater than 7 trend h&h ID: Severe sepsis Recent staph epi/coag negative staph bacteremia history of enterococcus right upper extremity wound Continue vancomycin/cefepime/Diflucan per ID recommendation Blood cultures 2 pending Infectious disease consult gladly appreciated tunneled vas cath removed 08/12. 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 Currently not on any long-term medication for SLE. PT evaluate and treat FEN: Prophylaxis - GI - pantoprazole - DVT - SCD/heparin drip Critical Care: The total critical care time was 35 minutes. Time to perform other separately billable procedures was not included in the critical care time. Ghanshyam Correa MD Sep 02, 2017 9:09 pm
[2017-09-02 22:37] LABS: BLOOD GAS BASE EXCESS 6.3 mmol/L (-2-2); BLOOD GAS CARBOXYHEMOGLOBIN 1.5 % (0-4); BLOOD GAS HCO3 30 mmol/L (22-26); BLOOD GAS O2 HGB SATURATION 96 % (90-100); BLOOD GAS PCO2 37 mmHg (38-42); BLOOD GAS PO2 111 mmHg (61-120); BLOOD GAS TOTAL HGB 8.7 G/DL (12.0-16.0); TEMP CORR TO 98.6
[2017-09-02 22:38] LABS: DRAW SITE RT FEMORAL; FIO2 100 %; LITER FLOW 15 L/M; NUMBER OF ARTERIAL PUNCTURES 1; STAT YES; ULNAR PULSE PRESENT
[2017-09-03] VITALS (14 sets, daily range): BP systolic 94–121; BP diastolic 44–55; PULSE 77–96; RESP 19–23; TEMP 98.4–99.8; O2SAT 93–100
[2017-09-03] MEDS: MIDODRINE 5 MG TAB PO SCH ×3 (04:46→16:54)
[2017-09-03 05:59] LABS: APTT (PATIENT) 90.5 SEC (24.3-30.1)
[2017-09-03] MEDS: DOCUSATE SODIUM 50 MG/SENNA 8.6 MG TAB PO SCH ×2 (08:36→20:19)
[2017-09-03] MEDS: HYDROCORTISONE 10 MG TAB PO SCH (08:36)
[2017-09-03] MEDS: CALCIUM ACETATE 667 MG CAP PO SCH ×3 (08:36→16:54)
[2017-09-03] MEDS: PANTOPRAZOLE SOD 40 MG DELAYED RELEASE TAB PO SCH ×2 (08:36→20:19)
[2017-09-03] MEDS: DILTIAZEM HCL 30 MG TAB PO SCH (08:36)
[2017-09-03] MEDS: FLUCONAZOLE 100 MG TAB PO SCH (08:36)
[2017-09-03] MEDS: SODIUM CHLORIDE 0.9% FLUSH 10 ML FLUSH IV FLUSH SCH ×3 (08:37→20:19)
[2017-09-03] MEDS: ACETAMINOPHEN/HYDROcodone 325 MG/10 MG TAB PO PRN ×2 (08:50→17:35)
[2017-09-03] MEDS ORDERED: [UNRECOGNIZED DRUG - CODE] IV (09:18)
[2017-09-03] MEDS ORDERED: [UNRECOGNIZED DRUG - CODE] IV (09:18)
--- NOTE | 2017-09-03 09:38 | HHI.PR ---
Subjective Remarks The patient was resting in bed comfortably. He was eating breakfast. He said he had no shortness of breath. Nursing was at the bedside. Objective Vitals Vital Signs Date Time Temp Pulse Resp B/P (MAP) Pulse Ox O2 Delivery O2 Flow Rate FiO2 09/03/17 09:18 96 09/03/17 06:00 Room Air 100 09/03/17 06:00 89 09/03/17 04:00 Room Air 100 09/03/17 04:00 96 09/03/17 04:00 98.4 93 19 121/45 (70) 09/03/17 02:00 Non-Rebreather 15.00 100 09/03/17 02:00 84 09/03/17 00:00 Non-Rebreather 15.00 100 09/03/17 00:00 87 09/03/17 00:00 98.7 87 23 102/49 (66) 09/02/17 22:00 Non-Rebreather 15.00 100 09/02/17 22:00 96 Non-Rebreather 15.00 09/02/17 22:00 93 09/02/17 20:00 Non-Rebreather 15.00 100 09/02/17 20:00 102 09/02/17 20:00 98.8 102 25 116/57 (76) Manual Cuff/Palpation 09/02/17 18:00 98.8 103 20 116/58 (77) 09/02/17 18:00 102 09/02/17 18:00 Non-Rebreather 15.00 100 09/02/17 17:37 Non-Rebreather 15.00 09/02/17 16:00 98.8 101 18 162/72 (102) 09/02/17 13:19 97.7 100 18 142/65 (90) 92 I/O 09/02/17 09/02/17 09/02/17 09/03/17 09/03/17 09/03/17 07:00 15:00 23:00 07:00 15:00 23:00 Intake Total 120 ml 1883 ml 501 ml Output Total 4000 ml Balance 120 ml -4000 ml 1883 ml 501 ml Intake Oral 120 ml 720 ml 240 ml IV Total 1163 ml 261 ml Hemodialysis 4000 ml # Voids 0 0 # Bowel Movements 0 0 Result Diagram: 09/02/17 0600 11/24/17 1912 Imaging Last Impressions Upper Extremity CT 09/02/17 1505 Signed Impressions: Service Date/Time: Saturday, September 02, 2017 17:09 - CONCLUSION: Very impressive soft tissue edema across the forearm. There is fluid between the fascia and the subcutaneous fat. Ehsan Archibald MD Chest X-Ray 09/02/17 0000 Signed Impressions: Service Date/Time: Saturday, September 02, 2017 16:00 - CONCLUSION: Stable mild diffuse vascular prominence similar to previous study. Small amounts of air space disease both lung bases left greater than right unchanged. Ehsan Archibald MD Abdomen MRI 08/31/17 0000 Signed Impressions: Service Date/Time: Thursday, August 31, 2017 15:40 - CONCLUSION: 1. Very limited study due to breathing motion artifact which and lack of IV contrast. 2. Atrophic kidneys with multiple tiny cortical cysts. 3. The pancreatic duct is just out of the range of normal measuring 4 mm in diameter. I'm not able to clearly identify an obstructing mass or stone on this limited study. Consideration could be made to a pancreatic protocol CT scan which is less susceptible to motion artifact. Narendra Barreto Jr., MD Abdomen Ultrasound 08/26/17 0000 Signed Impressions: Service Date/Time: Saturday, August 26, 2017 08:06 - CONCLUSION: 1. Kidneys are echogenic which can be seen with medical renal disease. 2. Cholelithiasis. 3. Mild prominence of the main pancreatic duct. Devyn Hickey MD Central Venous Line 08/25/17 0000 Signed Impressions: Service Date/Time: August 14:47 - CONCLUSION: Uncomplicated line placement as above. Tavares Ventura MD Upper Extremity Ultrasound 08/24/17 0000 Signed Impressions: Service Date/Time: Thursday, August 24, 2017 23:03 - CONCLUSION: Small amount of non occlusive thrombus in the cephalic vein otherwise unremarkable study. Very impressive soft tissue edema in the subcutaneous fat. Ehsan Archibald MD Objective Remarks GENERAL: NAD, A&Ox3 HEAD: Normocephalic. NECK: Supple, trachea midline. No lymphadenopathy. EYES: No scleral icterus. No injection or drainage. CARDIOVASCULAR: Regular rate and rhythm without murmurs, gallops, or rubs. RESPIRATORY: Breath sounds equal bilaterally. No accessory muscle use. GASTROINTESTINAL: Abdomen soft, non-tender, nondistended. MUSCULOSKELETAL: No cyanosis. History bilateral [id number] amputation's. Right second/third finger amputations. Left arm edema, induration, tenderness to palpation. SKIN: Warm and dry. Scars of right forearm NEURO: No focal neurological deficitis. Procedures EGD PROCEDURE REPORT EXAM DATE: 08/13/2017 INDICATIONS: The patient is a 46 yr old male here for an EGD due to melena PROCEDURE PERFORMED: EGD w/ band ligation of varices MEDICATIONS: None and Per Anesthesia. TOPICAL ANESTHETIC: none CONSENT: The patient understands the risks and benefits of the procedure and understands that these risks include, but are not limited to: sedation, allergic reaction, infection, perforation and/or bleeding. Alternative means of evaluation and treatment include, among others: physical exam, x-rays, and/or surgical intervention. The patient elects to proceed with this endoscopic procedure. medical equipment was checked for proper function. Hand hygiene and appropriate measures for infection prevention was taken. After the risks, benefits and alternatives of the procedure were thoroughly explained, Informed consent was verified, confirmed and timeout was successfully executed by the treatment team. The patient was anesthetized with topical anesthesia and the Pentax EG-[id number] endoscope was introduced through the mouth and advanced to the second portion of the duodenum. Retroflexion was performed and was normal The gastroscope was then slowly withdrawn and removed. ESOPHAGUS: There were large varices in the middle third of the esophagus and lower third esophagus. The varices were bleeding intermittently with spurting spot , 6 bands applied and bleeding controlled. STOMACH: There was severe and erosive gastritis in the entire examined stomach. DUODENUM: Multiple large shallow erosions were found in the duodenal bulb and 2nd part duodenum. ADVERSE EVENTS: There were no complications. IMPRESSIONS: 1. Bleeding Esophageal varices, with active bleeding identified, 6 bands applied to controll the bleeding 2. There was gastritis in the entire examined stomach 3. Multiple large erosions were found in the duodenal bulb and 2nd part duodenum RECOMMENDATIONS: Continue PPI , start Octreotide, PATIENT CONDITION: stable DISPOSITION: Observation REPEAT EXAM: Return 4 weeks EGD Chon Rodriguez MD 08/13/2017 1:38 PM Medications and IVs Current Medications Medications (Trade) Dose Ordered Sig/Nohelia Route Start Time Stop Time Status Last Admin (NS Flush) 2 ml UNSCH PRN IV FLUSH 08/12/17 11:45 08/31/17 14:50 (NS Flush) 2 ml BID IV FLUSH 08/12/17 21:00 09/03/17 08:37 (Tylenol) 650 mg Q6H PRN PO 08/12/17 11:45 08/29/17 18:25 (Zofran Inj) 4 mg Q6H PRN IV PUSH 08/12/17 11:45 08/15/17 13:52 (Albuterol Neb) 2.5 mg Q2HR NEB PRN INH 08/12/17 11:45 Miscellaneous Information 1 Q361D XX 08/12/17 11:45 (Angelika-Colace) 1 tab BID PO 08/12/17 21:00 09/03/17 08:36 (Milk Of Magnesia Liq) 30 ml Q12H PRN PO 08/12/17 11:45 (Senokot) 17.2 mg Q12H PRN PO 08/12/17 11:45 08/27/17 13:22 (Dulcolax Supp) 10 mg DAILY PRN RECTAL 08/12/17 11:45 (Lactulose Liq) 30 ml DAILY PRN PO 08/12/17 11:45 (Proamatine) 10 mg TID@,,17 PO 08/12/17 12:00 09/03/17 04:46 (Xanax) 1 mg Q8H PRN PO 08/12/17 12:00 09/02/17 20:53 Phenylephrine HCl 160 mg/Dextrose 500 ml @ 7.5 mls/hr TITRATE PRN IV 08/12/17 12:00 08/12/17 13:26 (Brethine Inj) 1 mg UNSCH PRN SQ 08/12/17 12:00 08/13/17 03:13 (Mannitol Inj) 12.5 gm UNSCH PRN IV 08/13/17 14:00 Albumin Human 100 ml @ 60 mls/hr UNSCH PRN IV 08/13/17 14:00 08/22/17 16:30 (NS Flush) 5 ml UNSCH PRN IV FLUSH 08/13/17 14:00 (Zofran Inj) 4 mg UNSCH PRN IV PUSH 08/13/17 14:00 (Tylenol) 650 mg UNSCH PRN PO 08/13/17 14:00 08/24/17 16:02 (Benadryl) 25 mg UNSCH PRN PO 08/13/17 14:00 (Nitrostat Sl) 0.4 mg UNSCH PRN SL 08/13/17 14:00 (Catapres) 0.1 mg UNSCH PRN PO 08/13/17 14:00 (Gelfoam 12 Mm/7 Mm Top) 1 foam UNSCH PRN TOP 08/13/17 14:00 08/31/17 11:29 (Phoslo) 1,334 mg TID PO 08/15/17 13:00 09/03/17 08:36 (Epogen Inj) 10,000 units UNSCH PRN IV PUSH 08/16/17 10:15 09/02/17 12:20 (Protonix) 40 mg Q12HR PO 08/18/17 21:00 09/03/17 08:36 (D50w (Vial) Inj) 50 ml UNSCH PRN IV PUSH 08/22/17 08:30 09/02/17 13:32 (Glucagon Inj) 1 mg STAT PRN IM 08/22/17 08:30 Heparin Sodium/ Dextrose 250 ml @ 14 mls/hr TITRATE PRN IV 08/24/17 17:00 09/02/17 15:39 (Hudson 5-325 Mg) 1 tab Q4H PRN PO 08/24/17 17:00 09/01/17 16:11 (Hudson 10-325 Mg) 1 tab Q4H PRN PO 08/24/17 17:00 09/03/17 08:50 (NS Flush) DAILY IV FLUSH 08/26/17 09:00 09/03/17 08:37 (NS Flush) UNSCH PRN IV FLUSH 08/25/17 14:45 (Cortef) 10 mg DAILY PO 08/27/17 09:00 09/03/17 08:36 (Claritin) 10 mg HS PO 08/28/17 21:00 09/02/17 20:57 Vancomycin HCl 1000 mg/Sodium Chloride 250 ml @ 250 mls/hr WITH DIALYSIS IV 08/30/17 12:45 09/06/17 23:00 09/02/17 12:18 (Diflucan) 100 mg DAILY PO 09/01/17 09:00 09/08/17 08:59 09/03/17 08:36 Dextrose 1,000 ml @ 30 mls/hr Q24H IV 09/03/17 09:15 A/P Problem List: (1) Elevated lactic acid level ICD Code: E87.2 - Acidosis Status: Acute (2) HYPOTENSION OF HEMODIALYSIS ICD Code: I95.3 - HYPOTENSION OF HEMODIALYSIS Status: Acute (3) Fever ICD Code: R50.9 - Fever, unspecified Status: Acute (4) ESRD (end stage renal disease) on dialysis ICD Code: N18.6 - End stage renal disease; Z99.2 - Dependence on renal dialysis Status: Chronic (5) Lupus (systemic lupus erythematosus) ICD Code: M32.9 - Systemic lupus erythematosus, unspecified (6) Hypoglycemia ICD Code: E16.2 - Hypoglycemia, unspecified (7) Anemia ICD Code: D64.9 - Anemia, unspecified Status: Acute (8) Chronic anticoagulation ICD Code: Z79.01 - senior care (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 of anticoagulants (9) H/O hypercoagulable state ICD Code: Z86.2 - Personal history of diseases of the blood and blood-forming organs and certain disorders involving the immune mechanism (10) Elevated glucose ICD Code: R73.09 - Other abnormal glucose (11) Hypoalbuminemia ICD Code: E88.09 - Other disorders of plasma-protein metabolism, not elsewhere classified (12) Thrombocytopenia ICD Code: D69.6 - Thrombocytopenia, unspecified (13) Elevated AST (SGOT) ICD Code: R74.0 - Nonspecific elevation of levels of transaminase and lactic acid dehydrogenase [LDH] (14) Macrocytic anemia ICD Code: D53.9 - Nutritional anemia, unspecified (15) Severe sepsis ICD Code: A41.9 - Sepsis, unspecified organism; R65.20 - Severe sepsis without septic shock (16) History of DVT (deep vein thrombosis) ICD Code: Z86.718 - Personal history of other venous thrombosis and embolism (17) History of pulmonary embolism ICD Code: Z86.711 - Personal history of pulmonary embolism (18) Gastroesophageal reflux disease ICD Code: K21.9 - Gastro-esophageal reflux disease without esophagitis (19) Coronary artery disease ICD Code: I25.10 - Atherosclerotic heart disease of [place] coronary artery without angina pectoris (20) 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 Admitted secondary to severe sepsis related to pneumonia. Discharge has been on hold secondary to hypoglycemia. Right hand Accu-Chek show hypoglycemia prior to lunch dosing. Discharge held. Insulin studies show elevations. Insulinoma workup ongoing. MRI pending. No occlusive thrombus left upper extremity. He has small clots in this arm which is chronic for him. He is on heparin drip at this point. Deferring resumption of Coumadin for possible need of surgery for insulinoma. If no evidence of insulinoma on MRI consider transfer for endocrinology evaluation and management. Central line placement on 08/25/17. Hypoglycemia Not yet improved, chronic problem. May be related to depleted glycogen stores vs s/t renal disease or insulinoma. MRI of abdomen and pelvis with motion artifact, so study was inconclusive. Pt with contrast allergy and ESRD, so CT pancreatic protocol cannot be done. - on D10 infusion. - Follow blood sugars q2h. - Patient will need to demonstrate stable blood sugars with only by mouth intake of sugar, prior to discharge. - Will look into transferring the pt to facility with endocrinology department. manager case management assistance appreciated. [facility] accepted pt. LUE edema May be s/t cellulitis. Tender to palpation. US showed: Small amount of nonocclusive thrombus in the cephalic vein, otherwise unremarkable study. CT scan with significant edema and fluid between the fascia and subcutaneous fat. - keep arm elevated. - antibiotics per ID. - pain control with a bowel regimen. Acute respiratory failure Required NRB at 100% 09/02. Repeat chest x-ray and ABG were stable. Currently breathing comfortably. O2 saturation level may have been erroneously low secondary to peripheral vascular disease. - BiPAP as needed. - monitor in ICU. A fib with RVR Noted on EKG. EKG may show sinus tach with PVCs. Currently appears to be in sinus rhythm on telemetry. - DC diltiazem. Resume as needed. - telemetry. - continue heparin gtt. - Repeat EKG. Anxiety disorder NOS/ Acute toxic metabolic encephalopathy Stable. - Continue as needed alprazolam. Severe sepsis/ History of bacteremia Resolved. Tunneled vas cath removed 08/12. - Will continue vancomycin/ cefepime /Diflucan for now per ID. Cultures remain negative. Coronary artery disease status post stent/ PAD/ Chronic hypotension related to dialysis Clinically asymptomatic. - Continue midodrine. Gastroesophageal reflux disease The pt had bleeding Esophageal varices s/p banding. Also noted was gastritis and multiple large erosions in the duodenal bulb and 2nd part of the duodenum. - Continue Protonix BID. - GI follow-up as an outpatient - holding Coumadin. On heparin gtt. End-stage renal disease/ Lupus nephritis/ Hyperphosphatemia The pt is on hemodialysis Tuesday/Tuesday and Tuesday per nephrology. - Continue sevelamer 1600 mg 3 times a day for hyperphosphatemia. - dialysis. Macrocytic anemia/ Anemia of chronic kidney disease/ Acute blood loss anemia/ Thrombocytopenia/ Hypercoagulable state Stable. - Coumadin on hold for now (this had been on hold secondary to GI bleed). Continue heparin drip. - Lifelong anticoagulation. History bilateral [id number] amputation's/ Right second/third finger amputation - continue supportive care - Physical/ occupational therapy. DVT prophylaxis Coumadin on hold due to active bleeding. Resume Coumadin when stabilized. Heparin gtt. Discharge Planning Transfer to [facility] when bed is available. Problem Qualifiers (1) Fever: Qualified Codes: R50.9 - Fever, unspecified (2) Lupus (systemic lupus erythematosus): Qualified Codes: M32.15 - Tubulo-interstitial nephropathy in systemic lupus erythematosus (3) Anemia: Qualified Codes: N18.6 - End stage renal disease; D63.1 - Anemia in chronic kidney disease; Z99.2 - Dependence on renal dialysis (4) Gastroesophageal reflux disease: Qualified Codes: K21.9 - Gastro-esophageal reflux disease without esophagitis (5) Coronary artery disease: Qualified Codes: I25.10 - Atherosclerotic heart disease of [place] coronary artery without angina pectoris Amador Oneill DO Sep 03, 2017 09:38
[2017-09-03 12:01] LABS: APTT (PATIENT) 79.5 SEC (24.3-30.1)
--- NOTE | 2017-09-03 14:20 | EKG ---
Date Performed: 09/03/2017 Time Performed: 09:34:19 PTAGE: 47 years EKG: Sinus rhythm WITH OCCASIONAL VENTRICULAR PREMATURE COMPLEXES NONSPECIFIC T-WAVE ABNORMALITY BORDERLINE ECG PREVIOUS TRACING : 09/02/2017 16.48 Compared to prior tracing no significant change DOCTOR: Abdifatah Gomez Interpretating Date/Time 09/03/2017 14:19:29
--- NOTE | 2017-09-03 15:19 | EKG ---
Date Performed: 09/02/2017 Time Performed: 16:48:10 PTAGE: 47 years EKG: Sinus rhythm Possible anterior infarct - age undetermined Abnormal ECG PREVIOUS TRACING : 08/12/2017 09.12 Compared to the previous tracing, rate has decreased, no lo nger with ST/T wave changes DOCTOR: Abdifatah Gomez Interpretating Date/Time 09/03/2017 15:17:37
[2017-09-03] MEDS: HEPARIN-D5W 25,000 U/250 ML 250 ML IV PRN (16:55)
[2017-09-03 18:25] LABS: APTT (PATIENT) 58.1 SEC (24.3-30.1)
[2017-09-03 18:43] LABS: ANION GAP 11 MEQ/L (5-15); BICARBONATE 30.6 MEQ/L (21.0-32.0); BLOOD UREA NITROGEN 35 MG/DL (7-18); CHLORIDE 91 MEQ/L (98-107); GLOMERULAR FILTRATION RATE 9 ML/MIN (>89); POTASSIUM 4.4 MEQ/L (3.5-5.1); SODIUM (NA) 133 MEQ/L (136-145)
[2017-09-03] MEDS: DEXTROSE 10% INJ 1,000 ML IV SCH (18:50)
[2017-09-03] MEDS: LORATADINE 10 MG TAB PO SCH (20:19)
[2017-09-04] VITALS (14 sets, daily range): BP systolic 99–137; BP diastolic 51–69; PULSE 78–99; RESP 12–19; TEMP 98–99; O2SAT 95–100
[2017-09-04] MEDS: ACETAMINOPHEN/HYDROcodone 325 MG/10 MG TAB PO PRN ×3 (02:45→16:46)
[2017-09-04 05:07] LABS: APTT (PATIENT) 110.8 SEC (24.3-30.1)
[2017-09-04] MEDS: MIDODRINE 5 MG TAB PO SCH ×3 (06:33→16:46)
[2017-09-04 06:58] LABS: HEMATOCRIT 25.2 % (39.0-51.0); MEAN CELL VOLUME 93.9 FL (80.0-100.0); MEAN CORPUSCULAR HEMOGLOBIN 30.7 PG (27.0-34.0); MEAN CORPUSCULAR HGB CONC 32.7 % (32.0-36.0); PLATELET COUNT 162 TH/MM3 (150-450); RED BLOOD COUNT 2.68 MIL/MM3 (4.50-5.90); RED CELL DISTRIBUTION WIDTH 21.2 % (11.6-17.2); REVIEW FLAG FINAL; WHITE BLOOD COUNT 6.2 TH/MM3 (4.0-11.0)
[2017-09-04 07:27] LABS: BICARBONATE 28.4 MEQ/L (21.0-32.0); POTASSIUM 4.3 MEQ/L (3.5-5.1)
[2017-09-04] MEDS: HYDROCORTISONE 10 MG TAB PO SCH (08:03)
[2017-09-04] MEDS: CALCIUM ACETATE 667 MG CAP PO SCH ×3 (08:04→18:00)
[2017-09-04] MEDS: SODIUM CHLORIDE 0.9% FLUSH 10 ML FLUSH IV FLUSH SCH ×3 (08:04→20:07)
[2017-09-04] MEDS: DOCUSATE SODIUM 50 MG/SENNA 8.6 MG TAB PO SCH ×2 (08:04→20:07)
[2017-09-04] MEDS: PANTOPRAZOLE SOD 40 MG DELAYED RELEASE TAB PO SCH ×2 (08:04→20:07)
[2017-09-04] MEDS: FLUCONAZOLE 100 MG TAB PO SCH (08:04)
--- NOTE | 2017-09-04 09:40 | HHI.PR ---
Subjective Remarks The patient was resting comfortably in bed. He requested additional pain medication. He also wanted apple juice. He denied shortness of breath. Discussed with nursing. Objective Vitals Vital Signs Date Time Temp Pulse Resp B/P (MAP) Pulse Ox O2 Delivery O2 Flow Rate FiO2 09/04/17 08:28 95 09/04/17 06:00 81 09/04/17 06:00 100 Nasal Cannula 100 09/04/17 04:00 80 09/04/17 04:00 100 Nasal Cannula 100 09/04/17 04:00 98.9 80 16 115/54 (74) 09/04/17 02:00 100 Nasal Cannula 100 09/04/17 02:00 81 09/04/17 00:00 100 Nasal Cannula 100 09/04/17 00:00 78 09/04/17 00:00 99.0 78 12 99/51 (67) 09/03/17 22:00 77 09/03/17 22:00 100 Nasal Cannula 100 09/03/17 20:30 93 Nasal Cannula 2.00 09/03/17 20:00 77 09/03/17 20:00 100 Nasal Cannula 100 09/03/17 20:00 99.4 77 21 104/51 (68) 100 09/03/17 18:00 100 Nasal Cannula 2.00 09/03/17 18:00 79 09/03/17 16:00 78 09/03/17 16:00 99.1 78 19 94/55 (68) 100 09/03/17 16:00 100 Nasal Cannula 2.00 09/03/17 14:00 100 Room Air 09/03/17 14:00 82 09/03/17 12:00 99.8 82 21 102/44 (63) 100 09/03/17 12:00 82 09/03/17 12:00 Room Air 100 09/03/17 10:00 88 09/03/17 10:00 Room Air 100 I/O 09/03/17 09/03/17 09/03/17 09/04/17 09/04/17 09/04/17 07:00 15:00 23:00 07:00 15:00 23:00 Intake Total 501 ml 1940 ml 472 ml Balance 501 ml 1940 ml 472 ml Intake Oral 240 ml 720 ml 120 ml IV Total 261 ml 1220 ml 352 ml # Voids 0 # Bowel Movements 0 Result Diagram: 09/04/17 0530 09/04/17 0745 Imaging Last Impressions Upper Extremity CT 09/02/17 1505 Signed Impressions: Service Date/Time: Saturday, September 02, 2017 17:09 - CONCLUSION: Very impressive soft tissue edema across the forearm. There is fluid between the fascia and the subcutaneous fat. Ehsan Archibald MD Chest X-Ray 09/02/17 0000 Signed Impressions: Service Date/Time: Saturday, September 02, 2017 16:00 - CONCLUSION: Stable mild diffuse vascular prominence similar to previous study. Small amounts of air space disease both lung bases left greater than right unchanged. Ehsan Archibald MD Abdomen MRI 08/31/17 0000 Signed Impressions: Service Date/Time: Thursday, August 31, 2017 15:40 - CONCLUSION: 1. Very limited study due to breathing motion artifact which and lack of IV contrast. 2. Atrophic kidneys with multiple tiny cortical cysts. 3. The pancreatic duct is just out of the range of normal measuring 4 mm in diameter. I'm not able to clearly identify an obstructing mass or stone on this limited study. Consideration could be made to a pancreatic protocol CT scan which is less susceptible to motion artifact. Narendra Barreto Jr., MD Abdomen Ultrasound 08/26/17 0000 Signed Impressions: Service Date/Time: Saturday, August 26, 2017 08:06 - CONCLUSION: 1. Kidneys are echogenic which can be seen with medical renal disease. 2. Cholelithiasis. 3. Mild prominence of the main pancreatic duct. Devyn Hickey MD Central Venous Line 08/25/17 0000 Signed Impressions: Service Date/Time: August 14:47 - CONCLUSION: Uncomplicated line placement as above. Tavares Ventura MD Upper Extremity Ultrasound 08/24/17 0000 Signed Impressions: Service Date/Time: Thursday, August 24, 2017 23:03 - CONCLUSION: Small amount of non occlusive thrombus in the cephalic vein otherwise unremarkable study. Very impressive soft tissue edema in the subcutaneous fat. Ehsan Archibald MD Objective Remarks GENERAL: NAD, A&Ox3 HEAD: Normocephalic. NECK: Supple, trachea midline. No lymphadenopathy. EYES: No scleral icterus. No injection or drainage. CARDIOVASCULAR: Regular rate and rhythm without murmurs, gallops, or rubs. RESPIRATORY: Breath sounds equal bilaterally. No accessory muscle use. GASTROINTESTINAL: Abdomen soft, non-tender, nondistended. MUSCULOSKELETAL: No cyanosis. History bilateral [id number] amputation's. Right second/third finger amputations. Left arm edema, induration, tenderness to palpation. SKIN: Warm and dry. Scars of right forearm NEURO: No focal neurological deficitis. PSYCH: Slightly flattened affect. Procedures EGD PROCEDURE REPORT EXAM DATE: 08/13/2017 INDICATIONS: The patient is a 46 yr old male here for an EGD due to melena PROCEDURE PERFORMED: EGD w/ band ligation of varices MEDICATIONS: None and Per Anesthesia. TOPICAL ANESTHETIC: none CONSENT: The patient understands the risks and benefits of the procedure and understands that these risks include, but are not limited to: sedation, allergic reaction, infection, perforation and/or bleeding. Alternative means of evaluation and treatment include, among others: physical exam, x-rays, and/or surgical intervention. The patient elects to proceed with this endoscopic procedure. medical equipment was checked for proper function. Hand hygiene and appropriate measures for infection prevention was taken. After the risks, benefits and alternatives of the procedure were thoroughly explained, Informed consent was verified, confirmed and timeout was successfully executed by the treatment team. The patient was anesthetized with topical anesthesia and the Pentax [id number] endoscope was introduced through the mouth and advanced to the second portion of the duodenum. Retroflexion was performed and was normal The gastroscope was then slowly withdrawn and removed. ESOPHAGUS: There were large varices in the middle third of the esophagus and lower third esophagus. The varices were bleeding intermittently with spurting spot , 6 bands applied and bleeding controlled. STOMACH: There was severe and erosive gastritis in the entire examined stomach. DUODENUM: Multiple large shallow erosions were found in the duodenal bulb and 2nd part duodenum. ADVERSE EVENTS: There were no complications. IMPRESSIONS: 1. Bleeding Esophageal varices, with active bleeding identified, 6 bands applied to controll the bleeding 2. There was gastritis in the entire examined stomach 3. Multiple large erosions were found in the duodenal bulb and 2nd part duodenum RECOMMENDATIONS: Continue PPI , start Octreotide, PATIENT CONDITION: stable DISPOSITION: Observation REPEAT EXAM: Return 4 weeks EGD Chon Rodriguez MD 08/13/2017 1:38 PM Medications and IVs Current Medications Medications (Trade) Dose Ordered Sig/Nohelia Route Start Time Stop Time Status Last Admin (NS Flush) 2 ml UNSCH PRN IV FLUSH 08/12/17 11:45 08/31/17 14:50 (NS Flush) 2 ml BID IV FLUSH 08/12/17 21:00 09/04/17 08:04 (Tylenol) 650 mg Q6H PRN PO 08/12/17 11:45 08/29/17 18:25 (Zofran Inj) 4 mg Q6H PRN IV PUSH 08/12/17 11:45 08/15/17 13:52 (Albuterol Neb) 2.5 mg Q2HR NEB PRN INH 08/12/17 11:45 Miscellaneous Information 1 Q361D XX 08/12/17 11:45 (Angelika-Colace) 1 tab BID PO 08/12/17 21:00 09/04/17 08:04 (Milk Of Magnesia Liq) 30 ml Q12H PRN PO 08/12/17 11:45 (Senokot) 17.2 mg Q12H PRN PO 08/12/17 11:45 08/27/17 13:22 (Dulcolax Supp) 10 mg DAILY PRN RECTAL 08/12/17 11:45 (Lactulose Liq) 30 ml DAILY PRN PO 08/12/17 11:45 (Proamatine) 10 mg TID@07,12,17 PO 08/12/17 12:00 09/04/17 06:33 (Xanax) 1 mg Q8H PRN PO 08/12/17 12:00 09/02/17 20:53 Phenylephrine HCl 160 mg/Dextrose 500 ml @ 7.5 mls/hr TITRATE PRN IV 08/12/17 12:00 08/12/17 13:26 (Brethine Inj) 1 mg UNSCH PRN SQ 08/12/17 12:00 08/13/17 03:13 (Mannitol Inj) 12.5 gm UNSCH PRN IV 08/13/17 14:00 Albumin Human 100 ml @ 60 mls/hr UNSCH PRN IV 08/13/17 14:00 08/22/17 16:30 (NS Flush) 5 ml UNSCH PRN IV FLUSH 08/13/17 14:00 (Zofran Inj) 4 mg UNSCH PRN IV PUSH 08/13/17 14:00 (Tylenol) 650 mg UNSCH PRN PO 08/13/17 14:00 08/24/17 16:02 (Benadryl) 25 mg UNSCH PRN PO 08/13/17 14:00 (Nitrostat Sl) 0.4 mg UNSCH PRN SL 08/13/17 14:00 (Catapres) 0.1 mg UNSCH PRN PO 08/13/17 14:00 (Gelfoam 12 Mm/7 Mm Top) 1 foam UNSCH PRN TOP 08/13/17 14:00 08/31/17 11:29 (Phoslo) 1,334 mg TID PO 08/15/17 13:00 09/04/17 08:04 (Epogen Inj) 10,000 units UNSCH PRN IV PUSH 08/16/17 10:15 09/02/17 12:20 (Protonix) 40 mg Q12HR PO 08/18/17 21:00 09/04/17 08:04 (D50w (Vial) Inj) 50 ml UNSCH PRN IV PUSH 08/22/17 08:30 09/02/17 13:32 (Glucagon Inj) 1 mg STAT PRN IM 08/22/17 08:30 Heparin Sodium/ Dextrose 250 ml @ 14 mls/hr TITRATE PRN IV 08/24/17 17:00 09/03/17 16:55 ([place] 5-325 Mg) 1 tab Q4H PRN PO 08/24/17 17:00 09/01/17 16:11 ([place] 10-325 Mg) 1 tab Q4H PRN PO 08/24/17 17:00 09/04/17 08:03 (NS Flush) DAILY IV FLUSH 08/26/17 09:00 09/04/17 08:04 (NS Flush) UNSCH PRN IV FLUSH 08/25/17 14:45 (Cortef) 10 mg DAILY PO 08/27/17 09:00 09/04/17 08:03 (Claritin) 10 mg HS PO 08/28/17 21:00 09/03/17 20:19 Vancomycin HCl 1000 mg/Sodium Chloride 250 ml @ 250 mls/hr WITH DIALYSIS IV 08/30/17 12:45 09/06/17 23:00 09/02/17 12:18 (Diflucan) 100 mg DAILY PO 09/01/17 09:00 09/08/17 08:59 09/04/17 08:04 Dextrose 1,000 ml @ 30 mls/hr Q24H IV 09/03/17 09:15 09/03/17 18:50 A/P Problem List: (1) Elevated lactic acid level ICD Code: E87.2 - Acidosis Status: Acute (2) HYPOTENSION OF HEMODIALYSIS ICD Code: I95.3 - HYPOTENSION OF HEMODIALYSIS Status: Acute (3) Fever ICD Code: R50.9 - Fever, unspecified Status: Acute (4) ESRD (end stage renal disease) on dialysis ICD Code: N18.6 - End stage renal disease; Z99.2 - Dependence on renal dialysis Status: Chronic (5) Lupus (systemic lupus erythematosus) ICD Code: M32.9 - Systemic lupus erythematosus, unspecified (6) Hypoglycemia ICD Code: E16.2 - Hypoglycemia, unspecified (7) Anemia ICD Code: D64.9 - Anemia, unspecified Status: Acute (8) Chronic anticoagulation ICD Code: Z79.01 - meterman (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 of anticoagulants (9) H/O hypercoagulable state ICD Code: Z86.2 - Personal history of diseases of the blood and blood-forming organs and certain disorders involving the immune mechanism (10) Elevated glucose ICD Code: R73.09 - Other abnormal glucose (11) Hypoalbuminemia ICD Code: E88.09 - Other disorders of plasma-protein metabolism, not elsewhere classified (12) Thrombocytopenia ICD Code: D69.6 - Thrombocytopenia, unspecified (13) Elevated AST (SGOT) ICD Code: R74.0 - Nonspecific elevation of levels of transaminase and lactic acid dehydrogenase [LDH] (14) Macrocytic anemia ICD Code: D53.9 - Nutritional anemia, unspecified (15) Severe sepsis ICD Code: A41.9 - Sepsis, unspecified organism; R65.20 - Severe sepsis without septic shock (16) History of DVT (deep vein thrombosis) ICD Code: Z86.718 - Personal history of other venous thrombosis and embolism (17) History of pulmonary embolism ICD Code: Z86.711 - Personal history of pulmonary embolism (18) Gastroesophageal reflux disease ICD Code: K21.9 - Gastro-esophageal reflux disease without esophagitis (19) Coronary artery disease ICD Code: I25.10 - Atherosclerotic heart disease of false pass coronary artery without angina pectoris (20) 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 Admitted secondary to severe sepsis related to pneumonia. Discharge has been on hold secondary to hypoglycemia. Right hand Accu-Chek show hypoglycemia prior to lunch dosing. Discharge held. Insulin studies show elevations. Insulinoma workup ongoing. MRI pending. No occlusive thrombus left upper extremity. He has small clots in this arm which is chronic for him. He is on heparin drip at this point. Deferring resumption of Coumadin for possible need of surgery for insulinoma. If no evidence of insulinoma on MRI consider transfer for endocrinology evaluation and management. Central line placement on 08/25/17. Hypoglycemia Not yet improved, chronic problem. May be related to depleted glycogen stores vs s/t renal disease or insulinoma. MRI of abdomen and pelvis with motion artifact, so study was inconclusive. Pt with contrast allergy and ESRD, so CT pancreatic protocol cannot be done. - on D10 infusion. - Follow blood sugars q2h. - Will look into transferring the pt to facility with endocrinology department. manager product management assistance appreciated. [facility] accepted pt. Awaiting availability of an ICU bed. LUE edema May be s/t cellulitis. Tender to palpation. US showed: Small amount of nonocclusive thrombus in the cephalic vein, otherwise unremarkable study. CT scan with significant edema and fluid between the fascia and subcutaneous fat. - keep arm elevated. - antibiotics per ID. - pain control with a bowel regimen. Acute respiratory failure Required NRB at 100% 09/02. Repeat chest x-ray and ABG were stable. Currently breathing comfortably. O2 saturation level may have been erroneously low secondary to peripheral vascular disease. - BiPAP as needed. - monitor in ICU. Stable. Sinus tachycardia A fib with RVR reported on EKG. EKG appears to actually show sinus tach with PVCs. Currently appears to be in sinus rhythm on telemetry. Repeat EKG confirms sinus rhythm. - DC diltiazem. Resume as needed. - telemetry. Anxiety disorder NOS/ Acute toxic metabolic encephalopathy Stable. - Continue as needed alprazolam. Severe sepsis/ History of bacteremia Resolved. Tunneled vas cath removed 08/12. - Will continue vancomycin and Diflucan for now per ID. Cultures remain negative. Coronary artery disease status post stent/ PAD/ Chronic hypotension related to dialysis Clinically asymptomatic. - Continue midodrine. Gastroesophageal reflux disease The pt had bleeding Esophageal varices s/p banding. Also noted was gastritis and multiple large erosions in the duodenal bulb and 2nd part of the duodenum. - Continue Protonix BID. - GI follow-up as an outpatient - holding Coumadin. On heparin gtt. End-stage renal disease/ Lupus nephritis/ Hyperphosphatemia The pt is on hemodialysis Tuesday/Tuesday and Tuesday per nephrology. - Continue sevelamer 1600 mg 3 times a day for hyperphosphatemia. - dialysis. Macrocytic anemia/ Anemia of chronic kidney disease/ Acute blood loss anemia/ Thrombocytopenia/ Hypercoagulable state Stable. - Coumadin on hold for now (this had been on hold secondary to GI bleed). Continue heparin drip. - Lifelong anticoagulation. History bilateral [id number] amputation's/ Right second/third finger amputation - continue supportive care - Physical/ occupational therapy. DVT prophylaxis Coumadin on hold due to active bleeding. Resume Coumadin when stabilized. Heparin gtt. Discharge Planning Transfer to [facility] when bed is available. Problem Qualifiers (1) Fever: Qualified Codes: R50.9 - Fever, unspecified (2) Lupus (systemic lupus erythematosus): Qualified Codes: M32.15 - Tubulo-interstitial nephropathy in systemic lupus erythematosus (3) Anemia: Qualified Codes: N18.6 - End stage renal disease; D63.1 - Anemia in chronic kidney disease; Z99.2 - Dependence on renal dialysis (4) Gastroesophageal reflux disease: Qualified Codes: K21.9 - Gastro-esophageal reflux disease without esophagitis (5) Coronary artery disease: Qualified Codes: I25.10 - Atherosclerotic heart disease of false pass coronary artery without angina pectoris Amador Oneill DO Sep 04, 2017 09:40
[2017-09-04] MEDS ORDERED: ACETAMINOPHEN/HYDROcodone 325 MG/5 MG TAB PO ONE (09:45)
[2017-09-04] MEDS: POLYETHYLENE GLYCOL 17 GM PKG PO SCH ×2 (10:00→10:42)
[2017-09-04] MEDS: LACTULOSE SYRUP 20 GM/30 ML CUP PO ONE ×2 (10:00→10:42)
[2017-09-04] MEDS ORDERED: BISACODYL 10 MG SUPP RECTAL ONE (10:00)
--- NOTE | 2017-09-04 10:58 | HHI.NPPN ---
Subjective History of Present Illness This patient is a 46-year-old male with a history of end-stage renal disease, SLE, hypertension, peripheral vascular disease as well as secondary hyperparathyroidism of renal disease. Unfortunately the patient has had multiple dialysis accesses including dialysis shunts and dialysis catheters in the past complicated by access failure as well as infection. Patient now has very limited options for dialysis access. We were relying on a left femoral dialysis line for access. Fortunately vessel surgery was able to create a left arm AV dialysis fistula back in February. We have used the access for dialysis 3 and the patient was scheduled to have his PermCath removed this Tuesday however presented to the dialysis facility with lethargy and pyrexia. Sepsis imost likely recurrence of line infection most likely consideration. Since admission however noted to have GI bleed and upper endoscopy revealed severe gastritis, and duodenum and mention of large bleeding esophageal varices Interval History Pt transferred to ICU on 09/02 for respiratory distress---resolved. Pt feeling OK. Tired Pending transfer to [facility] for further eval of hypoglycemia. s/p extra iHD 09/03 with 4L removed to help ease edema in LUE. Review of Systems General Constitutional: Fatigue Cardiovascular Cardiac: Edema Objective Data Data Vital Signs Date Time Temp Pulse Resp B/P (MAP) Pulse Ox O2 Delivery O2 Flow Rate FiO2 09/04/17 10:00 95 09/04/17 10:00 100 Nasal Cannula 09/04/17 08:28 95 09/04/17 08:00 100 Nasal Cannula 09/04/17 08:00 84 09/04/17 08:00 98.0 84 16 137/63 (87) 09/04/17 06:00 81 09/04/17 06:00 100 Nasal Cannula 100 09/04/17 04:00 80 09/04/17 04:00 100 Nasal Cannula 100 09/04/17 04:00 98.9 80 16 115/54 (74) 09/04/17 02:00 100 Nasal Cannula 100 09/04/17 02:00 81 09/04/17 00:00 100 Nasal Cannula 100 09/04/17 00:00 78 09/04/17 00:00 99.0 78 12 99/51 (67) 09/03/17 22:00 77 09/03/17 22:00 100 Nasal Cannula 100 09/03/17 20:30 93 Nasal Cannula 2.00 09/03/17 20:00 77 09/03/17 20:00 100 Nasal Cannula 100 09/03/17 20:00 99.4 77 21 104/51 (68) 100 09/03/17 18:00 100 Nasal Cannula 2.00 09/03/17 18:00 79 09/03/17 16:00 78 09/03/17 16:00 99.1 78 19 94/55 (68) 100 09/03/17 16:00 100 Nasal Cannula 2.00 09/03/17 14:00 100 Room Air 09/03/17 14:00 82 09/03/17 12:00 99.8 82 21 102/44 (63) 100 09/03/17 12:00 82 09/03/17 12:00 Room Air 100 -: 09/04/17 0530 09/04/17 0745 Imaging Last Impressions Upper Extremity CT 09/02/17 1505 Signed Impressions: Service Date/Time: Saturday, September 02, 2017 17:09 - CONCLUSION: Very impressive soft tissue edema across the forearm. There is fluid between the fascia and the subcutaneous fat. Ehsan Archibald MD Chest X-Ray 09/02/17 0000 Signed Impressions: Service Date/Time: Saturday, September 02, 2017 16:00 - CONCLUSION: Stable mild diffuse vascular prominence similar to previous study. Small amounts of air space disease both lung bases left greater than right unchanged. Ehsan Archibald MD Abdomen MRI 08/31/17 0000 Signed Impressions: Service Date/Time: Thursday, August 31, 2017 15:40 - CONCLUSION: 1. Very limited study due to breathing motion artifact which and lack of IV contrast. 2. Atrophic kidneys with multiple tiny cortical cysts. 3. The pancreatic duct is just out of the range of normal measuring 4 mm in diameter. I'm not able to clearly identify an obstructing mass or stone on this limited study. Consideration could be made to a pancreatic protocol CT scan which is less susceptible to motion artifact. Narendra Barreto Jr., MD Abdomen Ultrasound 08/26/17 0000 Signed Impressions: Service Date/Time: Saturday, August 26, 2017 08:06 - CONCLUSION: 1. Kidneys are echogenic which can be seen with medical renal disease. 2. Cholelithiasis. 3. Mild prominence of the main pancreatic duct. Devyn Hickey MD Central Venous Line 08/25/17 0000 Signed Impressions: Service Date/Time: August 14:47 - CONCLUSION: Uncomplicated line placement as above. Tavares Ventura MD Upper Extremity Ultrasound 08/24/17 0000 Signed Impressions: Service Date/Time: Thursday, August 24, 2017 23:03 - CONCLUSION: Small amount of non occlusive thrombus in the cephalic vein otherwise unremarkable study. Very impressive soft tissue edema in the subcutaneous fat. Ehsan Archibald MD Medication Review Current Medications Medications (Trade) Dose Ordered Sig/Nohelia Route Start Time Stop Time Status Last Admin (NS Flush) 2 ml UNSCH PRN IV FLUSH 08/12/17 11:45 08/31/17 14:50 (NS Flush) 2 ml BID IV FLUSH 08/12/17 21:00 09/04/17 08:04 (Tylenol) 650 mg Q6H PRN PO 08/12/17 11:45 08/29/17 18:25 (Zofran Inj) 4 mg Q6H PRN IV PUSH 08/12/17 11:45 08/15/17 13:52 (Albuterol Neb) 2.5 mg Q2HR NEB PRN INH 08/12/17 11:45 Miscellaneous Information 1 Q361D XX 08/12/17 11:45 (Angelika-Colace) 1 tab BID PO 08/12/17 21:00 09/04/17 08:04 (Milk Of Magnesia Liq) 30 ml Q12H PRN PO 08/12/17 11:45 (Senokot) 17.2 mg Q12H PRN PO 08/12/17 11:45 08/27/17 13:22 (Dulcolax Supp) 10 mg DAILY PRN RECTAL 08/12/17 11:45 (Lactulose Liq) 30 ml DAILY PRN PO 08/12/17 11:45 (Proamatine) 10 mg TID@,, PO 08/12/17 12:00 09/04/17 10:42 (Xanax) 1 mg Q8H PRN PO 08/12/17 12:00 09/02/17 20:53 (Brethine Inj) 1 mg UNSCH PRN SQ 08/12/17 12:00 08/13/17 03:13 (Mannitol Inj) 12.5 gm UNSCH PRN IV 08/13/17 14:00 Albumin Human 100 ml @ 60 mls/hr UNSCH PRN IV 08/13/17 14:00 08/22/17 16:30 (NS Flush) 5 ml UNSCH PRN IV FLUSH 08/13/17 14:00 (Zofran Inj) 4 mg UNSCH PRN IV PUSH 08/13/17 14:00 (Tylenol) 650 mg UNSCH PRN PO 08/13/17 14:00 08/24/17 16:02 (Benadryl) 25 mg UNSCH PRN PO 08/13/17 14:00 (Nitrostat Sl) 0.4 mg UNSCH PRN SL 08/13/17 14:00 (Catapres) 0.1 mg UNSCH PRN PO 08/13/17 14:00 (Gelfoam 12 Mm/7 Mm Top) 1 foam UNSCH PRN TOP 08/13/17 14:00 08/31/17 11:29 (Phoslo) 1,334 mg TID PO 08/15/17 13:00 09/04/17 08:04 (Epogen Inj) 10,000 units UNSCH PRN IV PUSH 08/16/17 10:15 09/02/17 12:20 (Protonix) 40 mg Q12HR PO 08/18/17 21:00 09/04/17 08:04 (D50w (Vial) Inj) 50 ml UNSCH PRN IV PUSH 08/22/17 08:30 09/02/17 13:32 (Glucagon Inj) 1 mg STAT PRN IM 08/22/17 08:30 Heparin Sodium/ Dextrose 250 ml @ 14 mls/hr TITRATE PRN IV 08/24/17 17:00 09/03/17 16:55 (Flom 5-325 Mg) 1 tab Q4H PRN PO 08/24/17 17:00 09/01/17 16:11 (Flom 10-325 Mg) 1 tab Q4H PRN PO 08/24/17 17:00 09/04/17 08:03 (NS Flush) DAILY IV FLUSH 08/26/17 09:00 09/04/17 08:04 (NS Flush) UNSCH PRN IV FLUSH 08/25/17 14:45 (Cortef) 10 mg DAILY PO 08/27/17 09:00 09/04/17 08:03 (Claritin) 10 mg HS PO 08/28/17 21:00 09/03/17 20:19 Vancomycin HCl 1000 mg/Sodium Chloride 250 ml @ 250 mls/hr WITH DIALYSIS IV 08/30/17 12:45 09/06/17 23:00 09/02/17 12:18 (Diflucan) 100 mg DAILY PO 09/01/17 09:00 09/08/17 08:59 09/04/17 08:04 Dextrose 1,000 ml @ 30 mls/hr Q24H IV 09/03/17 09:15 09/03/17 18:50 (Miralax) 17 gm DAILY PO 09/04/17 10:00 09/04/17 10:42 Physical Exam General Appearance: No Acute Distress Eyes Eye Exam: Sclera White Pulmonary Resp Exam: Clear Bilaterally, Breath Sounds Equal, No Distress Cardiology CV Exam: Regular, Normal Sinus Rhythm Gastrointestinal/Abdomen GI Exam: Soft, Non-Tender Integumentary Skin Exam: Clear, Warm Extremeties Extremities Exam: No Edema, Moderate Edema (2+ pitting edema involving the hips presacral area. 3+ pitting edema involving his left upper extremity.), Pitting Edema, Dependent Edema Neurologic Neuro Exam: Alert, Awake, Speech Clear, Moving All Extremities Psychiatric Psych Exam: Appropriate Responses Assessment/Plan Discussed Condition With: Patient Problem List: (1) End-stage renal disease on hemodialysis ICD Codes: N18.6 - End stage renal disease; Z99.2 - Dependence on renal dialysis Status: Chronic Plan: Continue HD MWF as before. Epogen with HD. UF 4L on Tuesday Medications should be adjusted for the patient's ESRD. Avoid gadolinium. (2) Hypoglycemia ICD Codes: E16.2 - Hypoglycemia, unspecified Plan: Patient's hypoglycemia may be related to his end-stage renal disease as clearance of insulin is reduced in the setting of CKD. Patient may possibly also have subclinical hepatic disease coexisting given the fact that he has varices. C-peptide levels can be elevated in the setting of chronic kidney disease secondary to reduced clearance of insulin by the kidney as well as with insulinomas. Pending transfer to [facility] for further evaluation. Has been accepted, awaiting bed. (3) Complications, dialysis, catheter, mechanical ICD Codes: T82.49XA - Other complication of vascular dialysis catheter, initial encounter Status: Resolved Plan: Hemodialysis PermCath removed. AV dialysis fistula appears to be working well. Blood cultures negative greater than 72 hours hours . It is possible his presentation was primarily related to GI bleed. (4) Anemia of renal disease ICD Codes: D63.1 - Anemia in chronic kidney disease Status: Chronic Plan: Epo with HD (5) Esophageal varices determined by endoscopy ICD Codes: I85.00 - Esophageal varices without bleeding Status: Resolved Plan: As far as I'm aware the patient has no known history of cirrhosis. Previous hepatitis profile negative. 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 (7) Fever ICD Codes: R50.9 - Fever, unspecified Status: Resolved Plan: Reviewed ID notes Restarted Cefepime & Fluconazole If Vanc needed, can dose after HD. Received 08/28 Blood cultures remain negative. Problem Qualifiers (1) Fever: Qualified Codes: R50.9 - Fever, unspecified Gladis Cole Sep 04, 2017 10:58
[2017-09-04 12:55] LABS: APTT (PATIENT) 38.1 SEC (24.3-30.1)
[2017-09-04] MEDS: DEXTROSE 10% INJ 1,000 ML IV SCH (16:38)
[2017-09-04] MEDS: LORATADINE 10 MG TAB PO SCH (20:07)
[2017-09-04 22:19] LABS: APTT (PATIENT) 45.8 SEC (24.3-30.1)
[2017-09-04 23:40] LABS: APTT (PATIENT) 68.1 SEC (24.3-30.1)
[2017-09-05] VITALS (12 sets, daily range): BP systolic 91–124; BP diastolic 50–59; PULSE 91–117; RESP 8–24; TEMP 98.7–100.2; O2SAT 60–98
[2017-09-05] MEDS: MIDODRINE 5 MG TAB PO SCH ×3 (05:02→16:31)
[2017-09-05 05:46] LABS: HEMATOCRIT 24.9 % (39.0-51.0); MEAN CELL VOLUME 92.3 FL (80.0-100.0); MEAN CORPUSCULAR HEMOGLOBIN 30.3 PG (27.0-34.0); MEAN CORPUSCULAR HGB CONC 32.8 % (32.0-36.0); PLATELET COUNT 174 TH/MM3 (150-450); RED CELL DISTRIBUTION WIDTH 21.5 % (11.6-17.2); REVIEW FLAG FINAL; WHITE BLOOD COUNT 6.9 TH/MM3 (4.0-11.0)
[2017-09-05 05:52] LABS: BICARBONATE 29.2 MEQ/L (21.0-32.0); POTASSIUM 4.3 MEQ/L (3.5-5.1)
[2017-09-05 05:58] LABS: APTT (PATIENT) 44.6 SEC (24.3-30.1)
[2017-09-05] MEDS: SODIUM CHLORIDE 0.9% FLUSH 10 ML FLUSH IV FLUSH SCH ×3 (08:02→20:41)
[2017-09-05] MEDS: PANTOPRAZOLE SOD 40 MG DELAYED RELEASE TAB PO SCH ×2 (08:02→20:40)
[2017-09-05] MEDS: CALCIUM ACETATE 667 MG CAP PO SCH ×3 (08:03→16:31)
[2017-09-05] MEDS: FLUCONAZOLE 100 MG TAB PO SCH (08:03)
[2017-09-05] MEDS: POLYETHYLENE GLYCOL 17 GM PKG PO SCH (08:03)
[2017-09-05] MEDS: HYDROCORTISONE 10 MG TAB PO SCH (08:03)
[2017-09-05] MEDS: DOCUSATE SODIUM 50 MG/SENNA 8.6 MG TAB PO SCH ×2 (08:03→20:40)
[2017-09-05] MEDS: DEXTROSE 50% IN WATER 50 ML VIAL(D50) IV PUSH PRN ×5 (08:04→16:31)
--- NOTE | 2017-09-05 08:48 | HHI.PR ---
Subjective Remarks The pt was about to get dialysis. His blood sugar was low once again. He still has not had a bowel movement in days. He was awaiting transfer to [facility]. Discussed with nursing. Objective Vitals Vital Signs Date Time Temp Pulse Resp B/P (MAP) Pulse Ox O2 Delivery O2 Flow Rate FiO2 09/05/17 07:46 Nasal Cannula 2.00 09/05/17 06:00 93 09/05/17 06:00 100 Nasal Cannula 09/05/17 04:00 95 09/05/17 04:00 100 Nasal Cannula 09/05/17 04:00 98.9 95 19 91/51 (64) 60 09/05/17 02:00 100 Nasal Cannula 09/05/17 02:00 97 09/05/17 00:00 91 09/05/17 00:00 98.7 91 18 112/54 (73) 09/05/17 00:00 100 Nasal Cannula 09/04/17 22:00 87 09/04/17 22:00 100 Nasal Cannula 09/04/17 21:04 100 Nasal Cannula 2.00 09/04/17 20:00 100 Nasal Cannula 09/04/17 20:00 98.9 94 14 119/53 (75) 09/04/17 20:00 94 09/04/17 18:00 100 Nasal Cannula 09/04/17 18:00 90 09/04/17 16:00 100 Nasal Cannula 09/04/17 16:00 98.0 91 120/56 (77) 09/04/17 16:00 91 09/04/17 14:00 100 Nasal Cannula 09/04/17 14:00 88 09/04/17 12:00 98.1 99 19 126/69 (88) 100 09/04/17 12:00 100 Nasal Cannula 09/04/17 12:00 99 09/04/17 10:00 95 09/04/17 10:00 100 Nasal Cannula I/O 09/04/17 09/04/17 09/04/17 09/05/17 09/05/17 09/05/17 07:00 15:00 23:00 07:00 15:00 23:00 Intake Total 472 ml 980 ml 240 ml Balance 472 ml 980 ml 240 ml Intake Oral 120 ml 480 ml 240 ml IV Total 352 ml 500 ml # Voids 0 # Bowel Movements 0 0 Result Diagram: 09/05/17 0507 09/05/17 0507 Imaging Last Impressions Upper Extremity CT 09/02/17 1505 Signed Impressions: Service Date/Time: Saturday, September 02, 2017 17:09 - CONCLUSION: Very impressive soft tissue edema across the forearm. There is fluid between the fascia and the subcutaneous fat. Ehsan Archibald MD Chest X-Ray 09/02/17 0000 Signed Impressions: Service Date/Time: Saturday, September 02, 2017 16:00 - CONCLUSION: Stable mild diffuse vascular prominence similar to previous study. Small amounts of air space disease both lung bases left greater than right unchanged. Ehsan Archibald MD Abdomen MRI 08/31/17 0000 Signed Impressions: Service Date/Time: Thursday, August 31, 2017 15:40 - CONCLUSION: 1. Very limited study due to breathing motion artifact which and lack of IV contrast. 2. Atrophic kidneys with multiple tiny cortical cysts. 3. The pancreatic duct is just out of the range of normal measuring 4 mm in diameter. I'm not able to clearly identify an obstructing mass or stone on this limited study. Consideration could be made to a pancreatic protocol CT scan which is less susceptible to motion artifact. Narendra Barreto Jr., MD Abdomen Ultrasound 08/26/17 0000 Signed Impressions: Service Date/Time: Saturday, August 26, 2017 08:06 - CONCLUSION: 1. Kidneys are echogenic which can be seen with medical renal disease. 2. Cholelithiasis. 3. Mild prominence of the main pancreatic duct. Devyn Hickey MD Central Venous Line 08/25/17 0000 Signed Impressions: Service Date/Time: August 14:47 - CONCLUSION: Uncomplicated line placement as above. Tavares Ventura MD Upper Extremity Ultrasound 08/24/17 0000 Signed Impressions: Service Date/Time: Thursday, August 24, 2017 23:03 - CONCLUSION: Small amount of non occlusive thrombus in the cephalic vein otherwise unremarkable study. Very impressive soft tissue edema in the subcutaneous fat. Ehsan Archibald MD Objective Remarks GENERAL: NAD, A&Ox3 HEAD: Normocephalic. NECK: Supple, trachea midline. No lymphadenopathy. EYES: No scleral icterus. No injection or drainage. CARDIOVASCULAR: Regular rate and rhythm without murmurs, gallops, or rubs. RESPIRATORY: Breath sounds equal bilaterally. No accessory muscle use. GASTROINTESTINAL: Abdomen soft, non-tender, nondistended. MUSCULOSKELETAL: No cyanosis. History bilateral [id number] amputation's. Right second/third finger amputations. Left arm edema, induration, tenderness to palpation. SKIN: Warm and dry. Scars of right forearm NEURO: No focal neurological deficitis. PSYCH: Slightly flattened affect. Procedures EGD PROCEDURE REPORT EXAM DATE: 08/13/2017 INDICATIONS: The patient is a 46 yr old male here for an EGD due to melena PROCEDURE PERFORMED: EGD w/ band ligation of varices MEDICATIONS: None and Per Anesthesia. TOPICAL ANESTHETIC: none CONSENT: The patient understands the risks and benefits of the procedure and understands that these risks include, but are not limited to: sedation, allergic reaction, infection, perforation and/or bleeding. Alternative means of evaluation and treatment include, among others: physical exam, x-rays, and/or surgical intervention. The patient elects to proceed with this endoscopic procedure. medical equipment was checked for proper function. Hand hygiene and appropriate measures for infection prevention was taken. After the risks, benefits and alternatives of the procedure were thoroughly explained, Informed consent was verified, confirmed and timeout was successfully executed by the treatment team. The patient was anesthetized with topical anesthesia and the Pentax [id number] endoscope was introduced through the mouth and advanced to the second portion of the duodenum. Retroflexion was performed and was normal The gastroscope was then slowly withdrawn and removed. ESOPHAGUS: There were large varices in the middle third of the esophagus and lower third esophagus. The varices were bleeding intermittently with spurting spot , 6 bands applied and bleeding controlled. STOMACH: There was severe and erosive gastritis in the entire examined stomach. DUODENUM: Multiple large shallow erosions were found in the duodenal bulb and 2nd part duodenum. ADVERSE EVENTS: There were no complications. IMPRESSIONS: 1. Bleeding Esophageal varices, with active bleeding identified, 6 bands applied to controll the bleeding 2. There was gastritis in the entire examined stomach 3. Multiple large erosions were found in the duodenal bulb and 2nd part duodenum RECOMMENDATIONS: Continue PPI , start Octreotide, PATIENT CONDITION: stable DISPOSITION: Observation REPEAT EXAM: Return 4 weeks EGD Chon Rodriguez MD 08/13/2017 1:38 PM Medications and IVs Current Medications Medications (Trade) Dose Ordered Sig/Nohelia Route Start Time Stop Time Status Last Admin (NS Flush) 2 ml UNSCH PRN IV FLUSH 08/12/17 11:45 08/31/17 14:50 (NS Flush) 2 ml BID IV FLUSH 08/12/17 21:00 09/05/17 08:02 (Tylenol) 650 mg Q6H PRN PO 08/12/17 11:45 08/29/17 18:25 (Zofran Inj) 4 mg Q6H PRN IV PUSH 08/12/17 11:45 08/15/17 13:52 (Albuterol Neb) 2.5 mg Q2HR NEB PRN INH 08/12/17 11:45 Miscellaneous Information 1 Q361D XX 08/12/17 11:45 (Angelika-Colace) 1 tab BID PO 08/12/17 21:00 09/05/17 08:03 (Milk Of Magnesia Liq) 30 ml Q12H PRN PO 08/12/17 11:45 (Senokot) 17.2 mg Q12H PRN PO 08/12/17 11:45 08/27/17 13:22 (Dulcolax Supp) 10 mg DAILY PRN RECTAL 08/12/17 11:45 (Lactulose Liq) 30 ml DAILY PRN PO 08/12/17 11:45 (Proamatine) 10 mg TID@07,12,17 PO 08/12/17 12:00 09/05/17 05:02 (Xanax) 1 mg Q8H PRN PO 08/12/17 12:00 09/02/17 20:53 (Brethine Inj) 1 mg UNSCH PRN SQ 08/12/17 12:00 08/13/17 03:13 (Mannitol Inj) 12.5 gm UNSCH PRN IV 08/13/17 14:00 Albumin Human 100 ml @ 60 mls/hr UNSCH PRN IV 08/13/17 14:00 08/22/17 16:30 (NS Flush) 5 ml UNSCH PRN IV FLUSH 08/13/17 14:00 (Zofran Inj) 4 mg UNSCH PRN IV PUSH 08/13/17 14:00 (Tylenol) 650 mg UNSCH PRN PO 08/13/17 14:00 08/24/17 16:02 (Benadryl) 25 mg UNSCH PRN PO 08/13/17 14:00 (Nitrostat Sl) 0.4 mg UNSCH PRN SL 08/13/17 14:00 (Catapres) 0.1 mg UNSCH PRN PO 08/13/17 14:00 (Gelfoam 12 Mm/7 Mm Top) 1 foam UNSCH PRN TOP 08/13/17 14:00 08/31/17 11:29 (Phoslo) 1,334 mg TID PO 08/15/17 13:00 09/05/17 08:03 (Epogen Inj) 10,000 units UNSCH PRN IV PUSH 08/16/17 10:15 09/02/17 12:20 (Protonix) 40 mg Q12HR PO 08/18/17 21:00 09/05/17 08:02 (D50w (Vial) Inj) 50 ml UNSCH PRN IV PUSH 08/22/17 08:30 09/05/17 08:04 (Glucagon Inj) 1 mg STAT PRN IM 08/22/17 08:30 Heparin Sodium/ Dextrose 250 ml @ 14 mls/hr TITRATE PRN IV 08/24/17 17:00 09/03/17 16:55 (Randolph 5-325 Mg) 1 tab Q4H PRN PO 08/24/17 17:00 09/01/17 16:11 (Randolph 10-325 Mg) 1 tab Q4H PRN PO 08/24/17 17:00 09/04/17 16:46 (NS Flush) DAILY IV FLUSH 08/26/17 09:00 09/05/17 08:02 (NS Flush) UNSCH PRN IV FLUSH 08/25/17 14:45 (Cortef) 10 mg DAILY PO 08/27/17 09:00 09/05/17 08:03 (Claritin) 10 mg HS PO 08/28/17 21:00 09/04/17 20:07 Vancomycin HCl 1000 mg/Sodium Chloride 250 ml @ 250 mls/hr WITH DIALYSIS IV 08/30/17 12:45 09/06/17 23:00 09/02/17 12:18 (Diflucan) 100 mg DAILY PO 09/01/17 09:00 09/08/17 08:59 09/05/17 08:03 Dextrose 1,000 ml @ 30 mls/hr Q24H IV 09/03/17 09:15 09/04/17 16:38 (Miralax) 17 gm DAILY PO 09/04/17 10:00 A/P Problem List: (1) Elevated lactic acid level ICD Code: E87.2 - Acidosis Status: Acute (2) HYPOTENSION OF HEMODIALYSIS ICD Code: I95.3 - HYPOTENSION OF HEMODIALYSIS Status: Acute (3) Fever ICD Code: R50.9 - Fever, unspecified Status: Resolved (4) ESRD (end stage renal disease) on dialysis ICD Code: N18.6 - End stage renal disease; Z99.2 - Dependence on renal dialysis Status: Chronic (5) Lupus (systemic lupus erythematosus) ICD Code: M32.9 - Systemic lupus erythematosus, unspecified (6) Hypoglycemia ICD Code: E16.2 - Hypoglycemia, unspecified (7) Anemia ICD Code: D64.9 - Anemia, unspecified Status: Acute (8) Chronic anticoagulation ICD Code: Z79.01 - intermediate accountant (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 of anticoagulants (9) H/O hypercoagulable state ICD Code: Z86.2 - Personal history of diseases of the blood and blood-forming organs and certain disorders involving the immune mechanism (10) Elevated glucose ICD Code: R73.09 - Other abnormal glucose (11) Hypoalbuminemia ICD Code: E88.09 - Other disorders of plasma-protein metabolism, not elsewhere classified (12) Thrombocytopenia ICD Code: D69.6 - Thrombocytopenia, unspecified (13) Elevated AST (SGOT) ICD Code: R74.0 - Nonspecific elevation of levels of transaminase and lactic acid dehydrogenase [LDH] (14) Macrocytic anemia ICD Code: D53.9 - Nutritional anemia, unspecified (15) Severe sepsis ICD Code: A41.9 - Sepsis, unspecified organism; R65.20 - Severe sepsis without septic shock (16) History of DVT (deep vein thrombosis) ICD Code: Z86.718 - Personal history of other venous thrombosis and embolism (17) History of pulmonary embolism ICD Code: Z86.711 - Personal history of pulmonary embolism (18) Gastroesophageal reflux disease ICD Code: K21.9 - Gastro-esophageal reflux disease without esophagitis (19) Coronary artery disease ICD Code: I25.10 - Atherosclerotic heart disease of [place] coronary artery without angina pectoris (20) 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 Admitted secondary to severe sepsis related to pneumonia. Discharge has been on hold secondary to hypoglycemia. Right hand Accu-Chek show hypoglycemia prior to lunch dosing. Discharge held. Insulin studies show elevations. Insulinoma workup ongoing. MRI pending. No occlusive thrombus left upper extremity. He has small clots in this arm which is chronic for him. He is on heparin drip at this point. Deferring resumption of Coumadin for possible need of surgery for insulinoma. If no evidence of insulinoma on MRI consider transfer for endocrinology evaluation and management. Central line placement on 08/25/17. Hypoglycemia Not yet improved, chronic problem. May be related to depleted glycogen stores vs s/t renal disease or insulinoma. MRI of abdomen and pelvis with motion artifact, so study was inconclusive. Pt with contrast allergy and ESRD, so CT pancreatic protocol cannot be done. - on D10 infusion. Increase to 75 ml/hr. - Follow blood sugars q2h. - Will look into transferring the pt to facility with endocrinology department. environmental field office manager assistance appreciated. [facility] accepted pt. Awaiting availability of an ICU bed. LUE edema May be s/t cellulitis. Tender to palpation. US showed: Small amount of nonocclusive thrombus in the cephalic vein, otherwise unremarkable study. CT scan with significant edema and fluid between the fascia and subcutaneous fat. - keep arm elevated. - antibiotics per ID. - pain control with a bowel regimen. Acute respiratory failure Required NRB at 100% 09/02. Repeat chest x-ray and ABG were stable. Currently breathing comfortably. O2 saturation level may have been erroneously low secondary to peripheral vascular disease. - oxygen as needed. - monitor in ICU. Stable. Sinus tachycardia A fib with RVR reported on EKG. EKG appears to actually showed sinus tach with PVCs. Currently appears to be in sinus rhythm on telemetry. Repeat EKG confirms sinus rhythm. - DC diltiazem. Resume as needed. - telemetry. Anxiety disorder NOS/ Acute toxic metabolic encephalopathy Stable. - Continue as needed alprazolam. Severe sepsis/ History of bacteremia Resolved. Tunneled vas cath removed 08/12. - Will continue vancomycin and Diflucan for now per ID. Cultures remain negative. Coronary artery disease status post stent/ PAD/ Chronic hypotension related to dialysis Clinically asymptomatic. - Continue midodrine. Gastroesophageal reflux disease The pt had bleeding Esophageal varices s/p banding. Also noted was gastritis and multiple large erosions in the duodenal bulb and 2nd part of the duodenum. - Continue Protonix BID. - GI follow-up as an outpatient - holding Coumadin. On heparin gtt. End-stage renal disease/ Lupus nephritis/ Hyperphosphatemia The pt is on hemodialysis Tuesday/Tuesday and Tuesday per nephrology. - Continue sevelamer 1600 mg 3 times a day for hyperphosphatemia. - dialysis. Macrocytic anemia/ Anemia of chronic kidney disease/ Acute blood loss anemia/ Thrombocytopenia/ Hypercoagulable state Stable. - Coumadin on hold for now (this had been on hold secondary to GI bleed). Continue heparin drip. - Lifelong anticoagulation. History bilateral [id number] amputation's/ Right second/third finger amputation - continue supportive care - Physical/ occupational therapy. Constipation Ongoing. - add Miralax and lactulose. Dulcolax supp if needed. DVT prophylaxis Coumadin on hold due to active bleeding. Resume Coumadin when stabilized. Heparin gtt. Discharge Planning Transfer to [facility] when bed is available. Problem Qualifiers (1) Fever: Qualified Codes: R50.9 - Fever, unspecified (2) Lupus (systemic lupus erythematosus): Qualified Codes: M32.15 - Tubulo-interstitial nephropathy in systemic lupus erythematosus (3) Anemia: Qualified Codes: N18.6 - End stage renal disease; D63.1 - Anemia in chronic kidney disease; Z99.2 - Dependence on renal dialysis (4) Gastroesophageal reflux disease: Qualified Codes: K21.9 - Gastro-esophageal reflux disease without esophagitis (5) Coronary artery disease: Qualified Codes: I25.10 - Atherosclerotic heart disease of [place] coronary artery without angina pectoris Amador Oneill DO Sep 05, 2017 08:48
[2017-09-05] MEDS ORDERED: POLYETHYLENE GLYCOL 17 GM PKG PO ONE (09:00)
[2017-09-05] MEDS ORDERED: BISACODYL 10 MG SUPP RECTAL PRN (09:00)
[2017-09-05] MEDS ORDERED: LACTULOSE SYRUP 20 GM/30 ML CUP PO ONE (09:00)
[2017-09-05] MEDS: DEXTROSE 10% INJ 1,000 ML IV SCH ×4 (09:15→22:19)
[2017-09-05] MEDS: GELATIN 12 MM/7 MM FOAM TOP PRN (09:20)
[2017-09-05] MEDS: VANCOMYCIN INJ 1,000 MG in SODIUM CHLOR 0.9% 250 ML INJ 250 ML IV SCH (09:21)
[2017-09-05] MEDS: ALBUMIN 25% INJ 100 ML IV PRN (09:21)
--- NOTE | 2017-09-05 09:41 | HHI.IDPN ---
Subjective Subjective Remarks Patient is a 46-year-old male, presented to the hospital for further evaluation of hypotension. He has known end-stage renal disease, and gets hemodialysis every Tuesday and Tuesday. He was in the dialysis clinic and he was found to be febrile, hypotensive, and tachycardic. He completed his treatment, and he was advised to go to the hospital for further evaluation and treatment. Patient currently has been having fevers since his been in the emergency room. He is also complaining of being sick to his stomach, and has had some nausea. Denies any abdominal pain. He denies any respiratory complaint. Patient has known central venous occlusion, and the only patent venous access for dialysis has been in his left femoral groin. During his last admission in June, he was treated for staph epidermides and Bryon proptosis sepsis. He was supposed to complete treatment till July 11. The catheter was exchanged during that admission. Patient has a right upper extremity AV fistula, and it was evaluated by the vascular surgeon when he was discharged from the hospital, and the last 3 dialysis, his AV fistula has been used. Patient also during his last admission had problem with hypoglycemia and his workup was negative at that time. Infectious disease consultation has been requested to evaluate the patient. Initial evaluation, patient was treated for sepsis due to the permacath. The permacath was removed Culture from the permacath showed yeast and corynebacterium. He received Diflucan and Vanco. Notes reviewed Transferred to [facility] 09/02 for respiratory distress CXR no change in opacities Breathing is better, on nasal O2 Temps 100+ Problem with recurrent hypoglycemia Accepted at [facility], waiting for bed, for endocrinology evaluation BP ok Getting HD Has central line L groin placed 08/25 Antibiotics Diflucan Vanco Current Medications Medications (Trade) Dose Ordered Sig/Nohelia Route Start Time Stop Time Status Last Admin (NS Flush) 2 ml UNSCH PRN IV FLUSH 08/12/17 11:45 08/31/17 14:50 (NS Flush) 2 ml BID IV FLUSH 08/12/17 21:00 09/05/17 08:02 (Tylenol) 650 mg Q6H PRN PO 08/12/17 11:45 08/29/17 18:25 (Zofran Inj) 4 mg Q6H PRN IV PUSH 08/12/17 11:45 08/15/17 13:52 (Albuterol Neb) 2.5 mg Q2HR NEB PRN INH 08/12/17 11:45 Miscellaneous Information 1 Q361D XX 08/12/17 11:45 (Angelika-Colace) 1 tab BID PO 08/12/17 21:00 09/05/17 08:03 (Milk Of Magnesia Liq) 30 ml Q12H PRN PO 08/12/17 11:45 (Senokot) 17.2 mg Q12H PRN PO 08/12/17 11:45 08/27/17 13:22 (Dulcolax Supp) 10 mg DAILY PRN RECTAL 08/12/17 11:45 (Lactulose Liq) 30 ml DAILY PRN PO 08/12/17 11:45 (Proamatine) 10 mg TID@,, PO 08/12/17 12:00 09/05/17 05:02 (Xanax) 1 mg Q8H PRN PO 08/12/17 12:00 09/02/17 20:53 (Brethine Inj) 1 mg UNSCH PRN SQ 08/12/17 12:00 08/13/17 03:13 (Mannitol Inj) 12.5 gm UNSCH PRN IV 08/13/17 14:00 Albumin Human 100 ml @ 60 mls/hr UNSCH PRN IV 08/13/17 14:00 09/05/17 09:21 (NS Flush) 5 ml UNSCH PRN IV FLUSH 08/13/17 14:00 (Zofran Inj) 4 mg UNSCH PRN IV PUSH 08/13/17 14:00 (Tylenol) 650 mg UNSCH PRN PO 08/13/17 14:00 08/24/17 16:02 (Benadryl) 25 mg UNSCH PRN PO 08/13/17 14:00 (Nitrostat Sl) 0.4 mg UNSCH PRN SL 08/13/17 14:00 (Catapres) 0.1 mg UNSCH PRN PO 08/13/17 14:00 (Gelfoam 12 Mm/7 Mm Top) 1 foam UNSCH PRN TOP 08/13/17 14:00 09/05/17 09:20 (Phoslo) 1,334 mg TID PO 08/15/17 13:00 09/05/17 08:03 (Epogen Inj) 10,000 units UNSCH PRN IV PUSH 08/16/17 10:15 09/02/17 12:20 (Protonix) 40 mg Q12HR PO 08/18/17 21:00 09/05/17 08:02 (D50w (Vial) Inj) 50 ml UNSCH PRN IV PUSH 08/22/17 08:30 09/05/17 08:04 (Glucagon Inj) 1 mg STAT PRN IM 08/22/17 08:30 Heparin Sodium/ Dextrose 250 ml @ 14 mls/hr TITRATE PRN IV 08/24/17 17:00 09/03/17 16:55 ([place]emberton 5-325 Mg) 1 tab Q4H PRN PO 08/24/17 17:00 09/01/17 16:11 ([place]emberton 10-325 Mg) 1 tab Q4H PRN PO 08/24/17 17:00 09/04/17 16:46 (NS Flush) DAILY IV FLUSH 08/26/17 09:00 09/05/17 08:02 (NS Flush) UNSCH PRN IV FLUSH 08/25/17 14:45 (Cortef) 10 mg DAILY PO 08/27/17 09:00 09/05/17 08:03 (Claritin) 10 mg HS PO 08/28/17 21:00 09/04/17 20:07 Vancomycin HCl 1000 mg/Sodium Chloride 250 ml @ 250 mls/hr WITH DIALYSIS IV 08/30/17 12:45 09/06/17 23:00 09/05/17 09:21 (Diflucan) 100 mg DAILY PO 09/01/17 09:00 09/08/17 08:59 09/05/17 08:03 Dextrose 1,000 ml @ 75 mls/hr [id number] IV 09/03/17 09:15 09/04/17 16:38 (Miralax) 17 gm DAILY PO 09/04/17 10:00 (Dulcolax Supp) 10 mg UNSCH X1 PRN RECTAL 09/05/17 09:00 09/05/17 12:00 Lines L groin TLC - 08/25 Past Medical History ESRD, on hemodialysis MWF SLE CAD Hypertension Severe PVD History of DVT Hyperparathyroidism of renal origin Previous hemodialysis catheter line related infection Known central venous occlusion Status post treatment staph epi and bryon sepsis Past Surgical History 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 Vital Signs Date Time Temp Pulse Resp B/P (MAP) Pulse Ox O2 Delivery O2 Flow Rate FiO2 09/05/17 07:46 Nasal Cannula 2.00 09/05/17 06:00 93 09/05/17 06:00 100 Nasal Cannula 09/05/17 04:00 95 09/05/17 04:00 100 Nasal Cannula 09/05/17 04:00 98.9 95 19 91/51 (64) 60 09/05/17 02:00 100 Nasal Cannula 09/05/17 02:00 97 09/05/17 00:00 91 09/05/17 00:00 98.7 91 18 112/54 (73) 09/05/17 00:00 100 Nasal Cannula 09/04/17 22:00 87 09/04/17 22:00 100 Nasal Cannula 09/04/17 21:04 100 Nasal Cannula 2.00 09/04/17 20:00 100 Nasal Cannula 09/04/17 20:00 98.9 94 14 119/53 (75) 09/04/17 20:00 94 09/04/17 18:00 100 Nasal Cannula 09/04/17 18:00 90 09/04/17 16:00 100 Nasal Cannula 09/04/17 16:00 98.0 91 120/56 (77) 09/04/17 16:00 91 09/04/17 14:00 100 Nasal Cannula 09/04/17 14:00 88 09/04/17 12:00 98.1 99 19 126/69 (88) 100 09/04/17 12:00 100 Nasal Cannula 09/04/17 12:00 99 09/04/17 10:00 95 09/04/17 10:00 100 Nasal Cannula . Laboratory Tests Test 09/04/17 05:30 09/05/17 05:07 White Blood Count 6.2 TH/MM3 6.9 TH/MM3 Red Blood Count 2.68 MIL/MM3 2.70 MIL/MM3 Hemoglobin 8.2 GM/DL 8.2 GM/DL Hematocrit 25.2 % 24.9 % Mean Corpuscular Volume 93.9 FL 92.3 FL Mean Corpuscular Hemoglobin 30.7 PG 30.3 PG Mean Corpuscular Hemoglobin Concent 32.7 % 32.8 % Red Cell Distribution Width 21.2 % 21.5 % Platelet Count 162 TH/MM3 174 TH/MM3 Mean Platelet Volume 9.0 FL 8.8 FL Laboratory Tests Test 09/03/17 17:00 09/04/17 05:30 09/04/17 07:45 09/05/17 05:07 Blood Urea Nitrogen 35 MG/DL 39 MG/DL 48 MG/DL Creatinine 7.96 MG/DL 8.65 MG/DL 10.20 MG/DL Random Glucose 106 MG/DL 94 MG/DL 87 MG/DL 89 MG/DL Calcium Level 8.7 MG/DL 8.5 MG/DL 8.3 MG/DL Sodium Level 133 MEQ/L 131 MEQ/L 129 MEQ/L Potassium Level 4.4 MEQ/L 4.3 MEQ/L 4.3 MEQ/L Chloride Level 91 MEQ/L 92 MEQ/L 90 MEQ/L Carbon Dioxide Level 30.6 MEQ/L 28.4 MEQ/L 29.2 MEQ/L Anion Gap 11 MEQ/L 11 MEQ/L 10 MEQ/L Estimat Glomerular Filtration Rate 9 ML/MIN 8 ML/MIN 7 ML/MIN Troponin I LESS THAN 0.02 NG/ML Magnesium Level 2.0 MG/DL Albumin 2.0 GM/DL Phosphorus Level 5.3 MG/DL Imaging RADIOLOGY STUDIES/FILMS REVIEWED Chest X-Ray 08/12/17 0910 Signed Impressions: Service Date/Time: Saturday, August 12, 2017 09:25 - CONCLUSION: 1. Stable scattered patchiness bilaterally. Chon Ney MD Central Venous Line 08/12/17 0000 Signed Impressions: Service Date/Time: Saturday, August 12, 2017 00:00 - CONCLUSION: Uncomplicated Permcath removal. Shmuel Beckett MD Physical Exam GENERAL: awake and alert, NAD SKIN: Warm and very dry. No generalized rash HEAD: Atraumatic. Normocephalic. No temporal wasting, or tenderness. EYES: [place] conjunctiva. No petechia or hemorrhage. Pupils equal, round and reactive to light. Extraocular movements full and intact. No scleral icterus. EARS, NOSE AND THROAT: Nose without bleeding or purulent nasal discharge. Mucous membranes pink and moist. No oral lesions noted. NECK: Trachea midline. Supple and not tender, no meningeal signs CARDIOVASCULAR: Regular rate and rhythm. No murmurs, rubs or gallops heard RESPIRATORY: Clear to auscultation. Breath sounds equal bilaterally. No rales , wheezing or rhonchi ABDOMEN: Soft, non-tender, nondistended. Bowel sounds present and normoactive. No guarding. No rebound. No organomegaly. EXTREMITIES: No clubbing, cyanosis, or edema. Has bilateral BKA, with a well- healed stump. LUE - very swollen again, not red. RUE AVF ok. Central line L groin looks ok NEUROLOGICAL: Non-focal PSYCHIATRIC: Normal affect, calm and cooperative. LINE: R groin central line with no evidence of infection Assessment & Plan Remarks IMPRESSION New fevers, source? low grade - ?new sepsis - likely due cellulitis LUE, better, though increased swelling Sepsis syndrome on presentation which shocked, highly suspicious for line- related sepsis, resolved - Has had the chronic femoral permacath in place, removed Previous treatment for recent staph epi and bryon sepsis, completed treatment July 11 ESRD, on HD, MWF Known PVD Hx central venous occlusion Recurrent episodes of hypoglycemia RECOMMENDATION Continue Diflucan Continue IV Vanco End dates ordered for his Abx Needs reevaluation of his central line - placed 08/25; not a lot of options though due to his problems with central venous occlusion Accepted at [facility] but waiting for be Monitor progress Follow temps Elevate LUE - will order sling and elevate Explained plan to the patient D/W Louann Hart MD Sep 05, 2017 09:41
--- NOTE | 2017-09-05 11:39 | HHI.NPPN ---
Subjective History of Present Illness This patient is a 46-year-old male with a history of end-stage renal disease, SLE, hypertension, peripheral vascular disease as well as secondary hyperparathyroidism of renal disease. Unfortunately the patient has had multiple dialysis accesses including dialysis shunts and dialysis catheters in the past complicated by access failure as well as infection. Patient now has very limited options for dialysis access. We were relying on a left femoral dialysis line for access. Fortunately vessel surgery was able to create a left arm AV dialysis fistula back in February. We have used the access for dialysis 3 and the patient was scheduled to have his PermCath removed this Tuesday however presented to the dialysis facility with lethargy and pyrexia. Sepsis imost likely recurrence of line infection most likely consideration. Since admission however noted to have GI bleed and upper endoscopy revealed severe gastritis, and duodenum and mention of large bleeding esophageal varices Interval History Patient was seen during dialysis and is tolerating his treatment well however it is noted the IV is going at 125 mL per hour D10. Review of Systems General Constitutional: Fatigue Cardiovascular Cardiac: Edema Objective Data Data 09/05/17 09/06/17 19:00 07:00 Intake Total 100 ml Balance 100 ml IV Total 100 ml Vital Signs Date Time Temp Pulse Resp B/P (MAP) Pulse Ox O2 Delivery O2 Flow Rate FiO2 09/05/17 07:46 Nasal Cannula 2.00 09/05/17 06:00 93 09/05/17 06:00 100 Nasal Cannula 09/05/17 04:00 95 09/05/17 04:00 100 Nasal Cannula 09/05/17 04:00 98.9 95 19 91/51 (64) 60 09/05/17 02:00 100 Nasal Cannula 09/05/17 02:00 97 09/05/17 00:00 91 09/05/17 00:00 98.7 91 18 112/54 (73) 09/05/17 00:00 100 Nasal Cannula 09/04/17 22:00 87 09/04/17 22:00 100 Nasal Cannula 09/04/17 21:04 100 Nasal Cannula 2.00 09/04/17 20:00 100 Nasal Cannula 09/04/17 20:00 98.9 94 14 119/53 (75) 09/04/17 20:00 94 09/04/17 18:00 100 Nasal Cannula 09/04/17 18:00 90 09/04/17 16:00 100 Nasal Cannula 09/04/17 16:00 98.0 91 120/56 (77) 09/04/17 16:00 91 09/04/17 14:00 100 Nasal Cannula 09/04/17 14:00 88 09/04/17 12:00 98.1 99 19 126/69 (88) 100 09/04/17 12:00 100 Nasal Cannula 09/04/17 12:00 99 -: 09/05/17 0507 09/05/17 0507 Physical Exam General Appearance: No Acute Distress Eyes Eye Exam: Sclera White Pulmonary Resp Exam: Clear Bilaterally, Breath Sounds Equal, No Distress Cardiology CV Exam: Regular, Normal Sinus Rhythm Gastrointestinal/Abdomen GI Exam: Soft, Non-Tender Integumentary Skin Exam: Clear, Warm Extremeties Extremities Exam: No Edema, Moderate Edema (2+ pitting edema involving the hips presacral area. 3+ pitting edema involving his left upper extremity.), Pitting Edema, Dependent Edema Neurologic Neuro Exam: Alert, Awake, Speech Clear, Moving All Extremities Psychiatric Psych Exam: Appropriate Responses Assessment/Plan Discussed Condition With: Patient Problem List: (1) End-stage renal disease on hemodialysis ICD Codes: N18.6 - End stage renal disease; Z99.2 - Dependence on renal dialysis Status: Chronic Plan: Patient tolerating hemodialysis currently quite well and access is working well however we may need to do another dialysis session tomorrow in view of significant IV fluid administration. Would advise reduction of D10W IV rate as soon as possible in view of patient's issues with fluid retention as well as hyponatremia. Have requested lab draw glucose in addition to Accu-Chek glucose at 12 midday to determine accuracy of Accu-Chek readings. Discussed with nurse regarding my concerns of IV fluid rate. She will pass on my concerns to critical care. Medications should be adjusted for the patient's ESRD. Avoid gadolinium. (2) Hypoglycemia ICD Codes: E16.2 - Hypoglycemia, unspecified Plan: Patient's hypoglycemia may be related to his end-stage renal disease as clearance of insulin is reduced in the setting of CKD. Patient may possibly also have subclinical hepatic disease coexisting given the fact that he has varices. C-peptide levels can be elevated in the setting of chronic kidney disease secondary to reduced clearance of insulin by the kidney as well as with insulinomas. Pending transfer to [facility] for further evaluation. Has been accepted, awaiting bed. (3) Complications, dialysis, catheter, mechanical ICD Codes: T82.49XA - Other complication of vascular dialysis catheter, initial encounter Status: Resolved Plan: Hemodialysis PermCath removed. AV dialysis fistula appears to be working well. Blood cultures negative greater than 72 hours hours . It is possible his presentation was primarily related to GI bleed. (4) Anemia of renal disease ICD Codes: D63.1 - Anemia in chronic kidney disease Status: Chronic Plan: Epo with HD (5) Esophageal varices determined by endoscopy ICD Codes: I85.00 - Esophageal varices without bleeding Status: Resolved Plan: As far as I'm aware the patient has no known history of cirrhosis. Previous hepatitis profile negative. 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 (7) Fever ICD Codes: R50.9 - Fever, unspecified Status: Resolved Plan: Reviewed ID notes Restarted Cefepime & Fluconazole If Vanc needed, can dose after HD. Received 08/28 Blood cultures remain negative. Problem Qualifiers (1) Fever: Qualified Codes: R50.9 - Fever, unspecified Clarence Merlos MD Sep 05, 2017 11:39
[2017-09-05] MEDS ORDERED: DIFL100T PO (13:02)
[2017-09-05] MEDS: HEPARIN-D5W 25,000 U/250 ML 250 ML IV PRN (14:13)
[2017-09-05] MEDS: LORATADINE 10 MG TAB PO SCH (20:40)
[2017-09-06] VITALS (15 sets, daily range): BP systolic 86–141; BP diastolic 42–65; PULSE 88–106; RESP 11–24; TEMP 98.4–100.7; O2SAT 87–93
[2017-09-06] MEDS: DEXTROSE 10% INJ 1,000 ML IV SCH ×3 (02:18→16:01)
[2017-09-06 04:51] LABS: HEMATOCRIT 23.2 % (39.0-51.0); MEAN CELL VOLUME 91.8 FL (80.0-100.0); MEAN CORPUSCULAR HEMOGLOBIN 30.7 PG (27.0-34.0); MEAN CORPUSCULAR HGB CONC 33.4 % (32.0-36.0); PLATELET COUNT 139 TH/MM3 (150-450); RED BLOOD COUNT 2.53 MIL/MM3 (4.50-5.90); RED CELL DISTRIBUTION WIDTH 21.1 % (11.6-17.2); REVIEW FLAG FINAL; WHITE BLOOD COUNT 8.9 TH/MM3 (4.0-11.0)
[2017-09-06 05:04] LABS: APTT (PATIENT) 47.8 SEC (24.3-30.1)
[2017-09-06 05:18] LABS: BICARBONATE 29.7 MEQ/L (21.0-32.0); MAGNESIUM 1.9 MG/DL (1.5-2.5); POTASSIUM 4.3 MEQ/L (3.5-5.1)
[2017-09-06] MEDS: MIDODRINE 5 MG TAB PO SCH ×3 (06:19→18:30)
[2017-09-06] MEDS: ACETAMINOPHEN/HYDROcodone 325 MG/10 MG TAB PO PRN (06:40)
[2017-09-06] MEDS: PANTOPRAZOLE SOD 40 MG DELAYED RELEASE TAB PO SCH ×2 (07:40→20:17)
[2017-09-06] MEDS: SODIUM CHLORIDE 0.9% FLUSH 10 ML FLUSH IV FLUSH SCH ×3 (07:40→20:17)
[2017-09-06] MEDS: CALCIUM ACETATE 667 MG CAP PO SCH ×3 (07:40→18:30)
[2017-09-06] MEDS: FLUCONAZOLE 100 MG TAB PO SCH (07:40)
[2017-09-06] MEDS: DOCUSATE SODIUM 50 MG/SENNA 8.6 MG TAB PO SCH ×2 (07:40→20:17)
[2017-09-06] MEDS: HYDROCORTISONE 10 MG TAB PO SCH (07:40)
[2017-09-06] MEDS: POLYETHYLENE GLYCOL 17 GM PKG PO SCH (07:43)
--- NOTE | 2017-09-06 09:25 | HHI.NPPN ---
Subjective History of Present Illness This patient is a 46-year-old male with a history of end-stage renal disease, SLE, hypertension, peripheral vascular disease as well as secondary hyperparathyroidism of renal disease. Unfortunately the patient has had multiple dialysis accesses including dialysis shunts and dialysis catheters in the past complicated by access failure as well as infection. Patient now has very limited options for dialysis access. We were relying on a left femoral dialysis line for access. Fortunately vessel surgery was able to create a left arm AV dialysis fistula back in February. We have used the access for dialysis 3 and the patient was scheduled to have his PermCath removed this Tuesday however presented to the dialysis facility with lethargy and pyrexia. Sepsis imost likely recurrence of line infection most likely consideration. Since admission however noted to have GI bleed and upper endoscopy revealed severe gastritis, and duodenum and mention of large bleeding esophageal varices Interval History Pt seen during HD today. Access working well. Still remains on D10 @125/hr Mild fevers Review of Systems General Constitutional: Fatigue Cardiovascular Cardiac: Edema Objective Data Data Vital Signs Date Time Temp Pulse Resp B/P (MAP) Pulse Ox O2 Delivery O2 Flow Rate FiO2 09/06/17 08:32 91 Nasal Cannula 2.00 09/06/17 08:00 95 09/06/17 08:00 99.3 95 24 132/53 (79) 90 09/06/17 08:00 92 Nasal Cannula 2.00 09/06/17 06:00 100 09/06/17 06:00 90 Nasal Cannula 2.00 09/06/17 04:01 100.3 101 11 86/47 (60) 93 09/06/17 04:00 91 Nasal Cannula 2.00 09/06/17 04:00 Nasal Cannula 2.00 09/06/17 04:00 102 09/06/17 02:00 103 09/06/17 02:00 86 Nasal Cannula 2.00 09/06/17 00:00 100.7 106 21 94/46 (62) 87 09/06/17 00:00 87 Nasal Cannula 2.00 09/06/17 00:00 106 09/05/17 22:00 109 09/05/17 22:00 89 Nasal Cannula 2.00 09/05/17 20:00 100.2 09/05/17 20:00 113 09/05/17 20:00 100.2 113 8 115/53 (73) 91 09/05/17 20:00 91 Nasal Cannula 2.00 09/05/17 18:00 115 09/05/17 18:00 98 Nasal Cannula 2.00 09/05/17 16:00 98 Nasal Cannula 2.00 09/05/17 16:00 108 09/05/17 16:00 99.8 108 21 124/57 (79) 98 09/05/17 14:00 98 Nasal Cannula 2.00 09/05/17 14:00 111 09/05/17 12:00 117 09/05/17 12:00 99.4 117 24 104/50 (68) 94 09/05/17 12:00 98 Nasal Cannula 2.00 09/05/17 10:00 109 09/05/17 10:00 98 Nasal Cannula 2.00 -: 09/06/17 0410 09/06/17 0410 Imaging Last Impressions Upper Extremity CT 09/02/17 1505 Signed Impressions: Service Date/Time: Saturday, September 02, 2017 17:09 - CONCLUSION: Very impressive soft tissue edema across the forearm. There is fluid between the fascia and the subcutaneous fat. Ehsan Archibald MD Chest X-Ray 09/02/17 0000 Signed Impressions: Service Date/Time: Saturday, September 02, 2017 16:00 - CONCLUSION: Stable mild diffuse vascular prominence similar to previous study. Small amounts of air space disease both lung bases left greater than right unchanged. Ehsan Archibald MD Abdomen MRI 08/31/17 0000 Signed Impressions: Service Date/Time: Thursday, August 31, 2017 15:40 - CONCLUSION: 1. Very limited study due to breathing motion artifact which and lack of IV contrast. 2. Atrophic kidneys with multiple tiny cortical cysts. 3. The pancreatic duct is just out of the range of normal measuring 4 mm in diameter. I'm not able to clearly identify an obstructing mass or stone on this limited study. Consideration could be made to a pancreatic protocol CT scan which is less susceptible to motion artifact. Narendra Barreto Jr., MD Abdomen Ultrasound 08/26/17 0000 Signed Impressions: Service Date/Time: Saturday, August 26, 2017 08:06 - CONCLUSION: 1. Kidneys are echogenic which can be seen with medical renal disease. 2. Cholelithiasis. 3. Mild prominence of the main pancreatic duct. Devyn Hickey MD Central Venous Line 08/25/17 0000 Signed Impressions: Service Date/Time: August 14:47 - CONCLUSION: Uncomplicated line placement as above. Tavares Ventura MD Upper Extremity Ultrasound 08/24/17 0000 Signed Impressions: Service Date/Time: Thursday, August 24, 2017 23:03 - CONCLUSION: Small amount of non occlusive thrombus in the cephalic vein otherwise unremarkable study. Very impressive soft tissue edema in the subcutaneous fat. Ehsan Archibald MD Medication Review Current Medications Medications (Trade) Dose Ordered Sig/Nohelia Route Start Time Stop Time Status Last Admin (NS Flush) 2 ml UNSCH PRN IV FLUSH 08/12/17 11:45 08/31/17 14:50 (NS Flush) 2 ml BID IV FLUSH 08/12/17 21:00 09/06/17 07:40 (Tylenol) 650 mg Q6H PRN PO 08/12/17 11:45 08/29/17 18:25 (Zofran Inj) 4 mg Q6H PRN IV PUSH 08/12/17 11:45 08/15/17 13:52 (Albuterol Neb) 2.5 mg Q2HR NEB PRN INH 08/12/17 11:45 Miscellaneous Information 1 Q361D XX 08/12/17 11:45 (Angelika-Colace) 1 tab BID PO 08/12/17 21:00 09/06/17 07:40 (Milk Of Magnesia Liq) 30 ml Q12H PRN PO 08/12/17 11:45 (Senokot) 17.2 mg Q12H PRN PO 08/12/17 11:45 08/27/17 13:22 (Dulcolax Supp) 10 mg DAILY PRN RECTAL 08/12/17 11:45 (Lactulose Liq) 30 ml DAILY PRN PO 08/12/17 11:45 (Proamatine) 10 mg TID@,, PO 08/12/17 12:00 09/06/17 06:19 (Xanax) 1 mg Q8H PRN PO 08/12/17 12:00 09/02/17 20:53 (Brethine Inj) 1 mg UNSCH PRN SQ 08/12/17 12:00 08/13/17 03:13 (Mannitol Inj) 12.5 gm UNSCH PRN IV 08/13/17 14:00 Albumin Human 100 ml @ 60 mls/hr UNSCH PRN IV 08/13/17 14:00 09/05/17 09:21 (NS Flush) 5 ml UNSCH PRN IV FLUSH 08/13/17 14:00 (Zofran Inj) 4 mg UNSCH PRN IV PUSH 08/13/17 14:00 (Tylenol) 650 mg UNSCH PRN PO 08/13/17 14:00 08/24/17 16:02 (Benadryl) 25 mg UNSCH PRN PO 08/13/17 14:00 (Nitrostat Sl) 0.4 mg UNSCH PRN SL 08/13/17 14:00 (Catapres) 0.1 mg UNSCH PRN PO 08/13/17 14:00 (Gelfoam 12 Mm/7 Mm Top) 1 foam UNSCH PRN TOP 08/13/17 14:00 09/05/17 09:20 (Phoslo) 1,334 mg TID PO 08/15/17 13:00 09/06/17 07:40 (Epogen Inj) 10,000 units UNSCH PRN IV PUSH 08/16/17 10:15 09/02/17 12:20 (Protonix) 40 mg Q12HR PO 08/18/17 21:00 09/06/17 07:40 (D50w (Vial) Inj) 50 ml UNSCH PRN IV PUSH 08/22/17 08:30 09/05/17 16:31 (Glucagon Inj) 1 mg STAT PRN IM 08/22/17 08:30 Heparin Sodium/ Dextrose 250 ml @ 14 mls/hr TITRATE PRN IV 08/24/17 17:00 09/05/17 14:13 ([place] 5-325 Mg) 1 tab Q4H PRN PO 08/24/17 17:00 09/01/17 16:11 ([place] 10-325 Mg) 1 tab Q4H PRN PO 08/24/17 17:00 09/06/17 06:40 (NS Flush) DAILY IV FLUSH 08/26/17 09:00 09/06/17 07:41 (NS Flush) UNSCH PRN IV FLUSH 08/25/17 14:45 (Cortef) 10 mg DAILY PO 08/27/17 09:00 09/06/17 07:40 (Claritin) 10 mg HS PO 08/28/17 21:00 09/05/17 20:40 Vancomycin HCl 1000 mg/Sodium Chloride 250 ml @ 250 mls/hr WITH DIALYSIS IV 08/30/17 12:45 09/06/17 23:00 09/05/17 09:21 (Diflucan) 100 mg DAILY PO 09/01/17 09:00 09/08/17 08:59 09/06/17 07:40 Dextrose 1,000 ml @ 125 mls/hr Q8H IV 09/03/17 09:15 09/06/17 06:42 (Miralax) 17 gm DAILY PO 09/04/17 10:00 Physical Exam General Appearance: No Acute Distress Eyes Eye Exam: Sclera White Pulmonary Resp Exam: Clear Bilaterally, Breath Sounds Equal, No Distress Cardiology CV Exam: Regular, Normal Sinus Rhythm Gastrointestinal/Abdomen GI Exam: Soft, Non-Tender Integumentary Skin Exam: Clear, Warm Extremeties Extremities Exam: No Edema, Moderate Edema (2+ pitting edema involving the hips presacral area. 3+ pitting edema involving his left upper extremity. Periorbital edema), Pitting Edema, Dependent Edema Neurologic Neuro Exam: Alert, Awake, Speech Clear, Moving All Extremities Psychiatric Psych Exam: Appropriate Responses Assessment/Plan Discussed Condition With: Patient Problem List: (1) End-stage renal disease on hemodialysis ICD Codes: N18.6 - End stage renal disease; Z99.2 - Dependence on renal dialysis Status: Chronic Plan: Pt remains on D10 @125/hr. Significant edema persists. Seen on HD today with UF at 4L. Regular HD tomorrow with 4L UF. Will likely have to have daily HD until D10 can be decreased. Would strongly recommend decreasing rate, but will defer decision to primary. Transfer to [facility] pending. Access working well. Mild fever. ID on case. Femoral line still in place Medications should be adjusted for the patient's ESRD. Avoid gadolinium. (2) Hypoglycemia ICD Codes: E16.2 - Hypoglycemia, unspecified Plan: Patient's hypoglycemia may be related to his end-stage renal disease as clearance of insulin is reduced in the setting of CKD. Patient may possibly also have subclinical hepatic disease coexisting given the fact that he has varices. C-peptide levels can be elevated in the setting of chronic kidney disease secondary to reduced clearance of insulin by the kidney as well as with insulinomas. Pending transfer to [facility] for further evaluation. Has been accepted, awaiting bed. (3) Complications, dialysis, catheter, mechanical ICD Codes: T82.49XA - Other complication of vascular dialysis catheter, initial encounter Status: Resolved Plan: Hemodialysis PermCath removed. AV dialysis fistula appears to be working well. Blood cultures negative greater than 72 hours hours . It is possible his presentation was primarily related to GI bleed. (4) Anemia of renal disease ICD Codes: D63.1 - Anemia in chronic kidney disease Status: Chronic Plan: Epo with HD (5) Esophageal varices determined by endoscopy ICD Codes: I85.00 - Esophageal varices without bleeding Status: Resolved Plan: As far as I'm aware the patient has no known history of cirrhosis. Previous hepatitis profile negative. 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 (7) Fever ICD Codes: R50.9 - Fever, unspecified Status: Resolved Plan: Mgmt as per ID Problem Qualifiers (1) Fever: Qualified Codes: R50.9 - Fever, unspecified Gladis Cole Sep 06, 2017 09:25
--- NOTE | 2017-09-06 19:13 | HHI.PR ---
Subjective Remarks c/o left upper lower extremity swelling. Denies chest pain or sob. Discussed case with RN who states patient did not require extra amps of D50 today. Objective Vitals Vital Signs Date Time Temp Pulse Resp B/P (MAP) Pulse Ox O2 Delivery O2 Flow Rate FiO2 09/06/17 18:00 88 09/06/17 18:00 92 Nasal Cannula 2.00 09/06/17 16:00 92 Nasal Cannula 2.00 09/06/17 16:00 95 09/06/17 16:00 99.4 95 14 141/65 (90) 92 09/06/17 14:00 98 09/06/17 14:00 92 Nasal Cannula 2.00 09/06/17 12:00 98 09/06/17 12:00 92 Nasal Cannula 2.00 09/06/17 12:00 98.4 98 17 90/42 (58) 91 09/06/17 10:00 100 09/06/17 10:00 92 Nasal Cannula 2.00 09/06/17 08:32 91 Nasal Cannula 2.00 09/06/17 08:00 95 09/06/17 08:00 99.3 95 24 132/53 (79) 90 09/06/17 08:00 92 Nasal Cannula 2.00 09/06/17 06:00 100 09/06/17 06:00 90 Nasal Cannula 2.00 09/06/17 04:01 100.3 101 11 86/47 (60) 93 09/06/17 04:00 91 Nasal Cannula 2.00 09/06/17 04:00 Nasal Cannula 2.00 09/06/17 04:00 102 09/06/17 02:00 103 09/06/17 02:00 86 Nasal Cannula 2.00 09/06/17 00:00 100.7 106 21 94/46 (62) 87 09/06/17 00:00 87 Nasal Cannula 2.00 09/06/17 00:00 106 09/05/17 22:00 109 09/05/17 22:00 89 Nasal Cannula 2.00 09/05/17 20:00 100.2 09/05/17 20:00 113 09/05/17 20:00 100.2 113 8 115/53 (73) 91 09/05/17 20:00 91 Nasal Cannula 2.00 I/O 11/09/05/17 09/05/17 09/06/17 09/06/17 09/06/17 07:00 15:00 23:00 07:00 15:00 23:00 Intake Total 240 ml 1600 ml 1480 ml 1209.7 ml 1053.3 ml Output Total 4000 ml 4000 ml Balance 240 ml -2400 ml 1480 ml 1209.7 ml -4000 ml 1053.3 ml Intake Oral 240 ml 480 ml 120 ml 480 ml IV Total 1600 ml 1000 ml 1089.7 ml 573.3 ml Hemodialysis 4000 ml 4000 ml # Voids 0 0 # Bowel Movements 0 1 1 Result Diagram: 09/06/17 0410 09/06/17 0410 Imaging Last Impressions Upper Extremity CT 09/02/17 1505 Signed Impressions: Service Date/Time: Saturday, September 02, 2017 17:09 - CONCLUSION: Very impressive soft tissue edema across the forearm. There is fluid between the fascia and the subcutaneous fat. Ehsan Archibald MD Chest X-Ray 09/02/17 0000 Signed Impressions: Service Date/Time: Saturday, September 02, 2017 16:00 - CONCLUSION: Stable mild diffuse vascular prominence similar to previous study. Small amounts of air space disease both lung bases left greater than right unchanged. Ehsan Archibald MD Abdomen MRI 08/31/17 0000 Signed Impressions: Service Date/Time: Thursday, August 31, 2017 15:40 - CONCLUSION: 1. Very limited study due to breathing motion artifact which and lack of IV contrast. 2. Atrophic kidneys with multiple tiny cortical cysts. 3. The pancreatic duct is just out of the range of normal measuring 4 mm in diameter. I'm not able to clearly identify an obstructing mass or stone on this limited study. Consideration could be made to a pancreatic protocol CT scan which is less susceptible to motion artifact. Narendra Barreto Jr., MD Abdomen Ultrasound 08/26/17 0000 Signed Impressions: Service Date/Time: Saturday, August 26, 2017 08:06 - CONCLUSION: 1. Kidneys are echogenic which can be seen with medical renal disease. 2. Cholelithiasis. 3. Mild prominence of the main pancreatic duct. Devyn Hickey MD Central Venous Line 08/25/17 0000 Signed Impressions: Service Date/Time: August 14:47 - CONCLUSION: Uncomplicated line placement as above. Tavares Ventura MD Objective Remarks GENERAL: NAD, A&Ox3 HEAD: Normocephalic. NECK: Supple, trachea midline. No lymphadenopathy. EYES: No scleral icterus. No injection or drainage. CARDIOVASCULAR: Regular rate and rhythm without murmurs, gallops, or rubs. RESPIRATORY: Breath sounds equal bilaterally. No accessory muscle use. GASTROINTESTINAL: Abdomen soft, non-tender, nondistended. MUSCULOSKELETAL: No cyanosis. History bilateral [id number] amputation's. Right second/third finger amputations. Left arm edema, induration, tenderness to palpation. SKIN: Warm and dry. Scars of right forearm NEURO: No focal neurological deficitis. PSYCH: Slightly flattened affect. Procedures EGD PROCEDURE REPORT EXAM DATE: 08/13/2017 INDICATIONS: The patient is a 46 yr old male here for an EGD due to melena PROCEDURE PERFORMED: EGD w/ band ligation of varices MEDICATIONS: None and Per Anesthesia. TOPICAL ANESTHETIC: none CONSENT: The patient understands the risks and benefits of the procedure and understands that these risks include, but are not limited to: sedation, allergic reaction, infection, perforation and/or bleeding. Alternative means of evaluation and treatment include, among others: physical exam, x-rays, and/or surgical intervention. The patient elects to proceed with this endoscopic procedure. medical equipment was checked for proper function. Hand hygiene and appropriate measures for infection prevention was taken. After the risks, benefits and alternatives of the procedure were thoroughly explained, Informed consent was verified, confirmed and timeout was successfully executed by the treatment team. The patient was anesthetized with topical anesthesia and the Pentax [id number] endoscope was introduced through the mouth and advanced to the second portion of the duodenum. Retroflexion was performed and was normal The gastroscope was then slowly withdrawn and removed. ESOPHAGUS: There were large varices in the middle third of the esophagus and lower third esophagus. The varices were bleeding intermittently with spurting spot , 6 bands applied and bleeding controlled. STOMACH: There was severe and erosive gastritis in the entire examined stomach. DUODENUM: Multiple large shallow erosions were found in the duodenal bulb and 2nd part duodenum. ADVERSE EVENTS: There were no complications. IMPRESSIONS: 1. Bleeding Esophageal varices, with active bleeding identified, 6 bands applied to controll the bleeding 2. There was gastritis in the entire examined stomach 3. Multiple large erosions were found in the duodenal bulb and 2nd part duodenum RECOMMENDATIONS: Continue PPI , start Octreotide, PATIENT CONDITION: stable DISPOSITION: Observation REPEAT EXAM: Return 4 weeks EGD Chon Rodriguez MD 08/13/2017 1:38 PM A/P Problem List: (1) Elevated lactic acid level ICD Code: E87.2 - Acidosis Status: Acute (2) HYPOTENSION OF HEMODIALYSIS ICD Code: I95.3 - HYPOTENSION OF HEMODIALYSIS Status: Acute (3) Fever ICD Code: R50.9 - Fever, unspecified Status: Resolved (4) ESRD (end stage renal disease) on dialysis ICD Code: N18.6 - End stage renal disease; Z99.2 - Dependence on renal dialysis Status: Chronic (5) Lupus (systemic lupus erythematosus) ICD Code: M32.9 - Systemic lupus erythematosus, unspecified (6) Hypoglycemia ICD Code: E16.2 - Hypoglycemia, unspecified (7) Anemia ICD Code: D64.9 - Anemia, unspecified Status: Acute (8) Chronic anticoagulation ICD Code: Z79.01 - terminal operator (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 of anticoagulants (9) H/O hypercoagulable state ICD Code: Z86.2 - Personal history of diseases of the blood and blood-forming organs and certain disorders involving the immune mechanism (10) Elevated glucose ICD Code: R73.09 - Other abnormal glucose (11) Hypoalbuminemia ICD Code: E88.09 - Other disorders of plasma-protein metabolism, not elsewhere classified (12) Thrombocytopenia ICD Code: D69.6 - Thrombocytopenia, unspecified (13) Elevated AST (SGOT) ICD Code: R74.0 - Nonspecific elevation of levels of transaminase and lactic acid dehydrogenase [LDH] (14) Macrocytic anemia ICD Code: D53.9 - Nutritional anemia, unspecified (15) Severe sepsis ICD Code: A41.9 - Sepsis, unspecified organism; R65.20 - Severe sepsis without septic shock (16) History of DVT (deep vein thrombosis) ICD Code: Z86.718 - Personal history of other venous thrombosis and embolism (17) History of pulmonary embolism ICD Code: Z86.711 - Personal history of pulmonary embolism (18) Gastroesophageal reflux disease ICD Code: K21.9 - Gastro-esophageal reflux disease without esophagitis (19) Coronary artery disease ICD Code: I25.10 - Atherosclerotic heart disease of [place] coronary artery without angina pectoris (20) 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 Admitted secondary to severe sepsis related to pneumonia. Discharge has been on hold secondary to hypoglycemia. Right hand Accu-Chek show hypoglycemia prior to lunch dosing. Discharge held. Insulin studies show elevations. Insulinoma workup ongoing. MRI pending. No occlusive thrombus left upper extremity. He has small clots in this arm which is chronic for him. He is on heparin drip at this point. Deferring resumption of Coumadin for possible need of surgery for insulinoma. If no evidence of insulinoma on MRI consider transfer for endocrinology evaluation and management. Central line placement on 08/25/17. Hypoglycemia Not yet improved, chronic problem. May be related to depleted glycogen stores vs s/t renal disease or insulinoma. MRI of abdomen and pelvis with motion artifact, so study was inconclusive. Pt with contrast allergy and ESRD, so CT pancreatic protocol cannot be done. - Started and being treated with D10. - Will look into transferring the pt to facility with endocrinology department. corporate legal manager assistance appreciated. [facility] accepted pt. Awaiting availability of an ICU bed. 09/06 Hypoglycemia seems to be stable. Will decrease rate of IV fluids D10 down to 100 ml/hr from 125 ml/hr. LUE edema May be s/t cellulitis. Tender to palpation. US showed: Small amount of nonocclusive thrombus in the cephalic vein, otherwise unremarkable study. CT scan with significant edema and fluid between the fascia and subcutaneous fat. - keep arm elevated. - antibiotics per ID. Acute respiratory failure Required NRB at 100% 09/02. Repeat chest x-ray and ABG were stable. Currently breathing comfortably. O2 saturation level may have been erroneously low secondary to peripheral vascular disease. - oxygen as needed. - monitor in ICU. Stable. Sinus tachycardia A fib with RVR reported on EKG. EKG appears to actually showed sinus tach with PVCs. Currently appears to be in sinus rhythm on telemetry. Repeat EKG confirms sinus rhythm. - DC diltiazem. Resume as needed. - telemetry. Anxiety disorder NOS/ Acute toxic metabolic encephalopathy Stable. - Continue as needed alprazolam. Severe sepsis/ History of bacteremia Resolved. Tunneled vas cath removed 08/12. - Will continue vancomycin and Diflucan for now per ID. Cultures remain negative. Coronary artery disease status post stent/ PAD/ Chronic hypotension related to dialysis Clinically asymptomatic. - Continue midodrine. Gastroesophageal reflux disease The pt had bleeding Esophageal varices s/p banding. Also noted was gastritis and multiple large erosions in the duodenal bulb and 2nd part of the duodenum. - Continue Protonix BID. - GI follow-up as an outpatient - holding Coumadin. On heparin gtt. End-stage renal disease/ Lupus nephritis/ Hyperphosphatemia The pt is on hemodialysis Tuesday/Tuesday and Tuesday per nephrology. - Continue sevelamer 1600 mg 3 times a day for hyperphosphatemia. - dialysis. Macrocytic anemia/ Anemia of chronic kidney disease/ Acute blood loss anemia/ Thrombocytopenia/ Hypercoagulable state Stable. - Coumadin on hold for now (this had been on hold secondary to GI bleed). Continue heparin drip. - Lifelong anticoagulation. History bilateral [id number] amputation's/ Right second/third finger amputation - continue supportive care - Physical/ occupational therapy. Constipation Ongoing. - add Miralax and lactulose. Dulcolax supp if needed. DVT prophylaxis Coumadin on hold due to active bleeding. Resume Coumadin when stabilized. Heparin gtt. Discharge Planning Transfer to [facility] when bed is available. Problem Qualifiers (1) Fever: Qualified Codes: R50.9 - Fever, unspecified (2) Lupus (systemic lupus erythematosus): Qualified Codes: M32.15 - Tubulo-interstitial nephropathy in systemic lupus erythematosus (3) Anemia: Qualified Codes: N18.6 - End stage renal disease; D63.1 - Anemia in chronic kidney disease; Z99.2 - Dependence on renal dialysis (4) Gastroesophageal reflux disease: Qualified Codes: K21.9 - Gastro-esophageal reflux disease without esophagitis (5) Coronary artery disease: Qualified Codes: I25.10 - Atherosclerotic heart disease of [place] coronary artery without angina pectoris Sammy De León MD Sep 06, 2017 19:13
[2017-09-06] MEDS: LORATADINE 10 MG TAB PO SCH (20:17)
--- NOTE | 2017-09-06 21:14 | RADRPT ---
EXAM DATE/TIME: 09/06/2017 20:32 [facility] COMPARISON: No previous studies available for comparison. INDICATIONS : Left arm swelling and edema. . MEDICAL HISTORY : Chronic obstructive pulmonary disease. Myocardial infarction. Congestive heart failure. Coronary kareem ry disease. Lupus. Deep vein thrombosis. Kidney failure. Dialysis. Blood transfusion. MRSA. SURGICAL HISTORY : Arteriovenous shunt. Coronary stent. Right arm fistula. Bilateralbelow the knee amputations. Right [place], two fingers amputated. Vas catheter, left thigh. ENCOUNTER: Subsequent ACUITY: 2 months PAIN SCORE: 5/10 LOCATION: Left arm. FINDINGS: There is nonocclusive thrombus the left cephalic vein from proximal to distal. Left basilic vein not clearly visualized. No deep venous thrombosis in the internal jugular, subclavian, axillary and brach ial vein. CONCLUSION: 1. Nonocclusive superficial thrombus in the left cephalic vein. No deep venous thrombosis. Hayden Turcios MD on September 06, 2017 at 21:11 Board Certified Radiologist. This report was verified electronically.
[2017-09-07] VITALS (14 sets, daily range): BP systolic 123–165; BP diastolic 56–78; PULSE 81–101; RESP 15–51; TEMP 98.5–100.3; O2SAT 89–100
[2017-09-07] MEDS: DEXTROSE 10% INJ 1,000 ML IV SCH ×3 (01:20→20:55)
[2017-09-07] MEDS: ACETAMINOPHEN/HYDROcodone 325 MG/10 MG TAB PO PRN ×5 (03:11→20:55)
[2017-09-07] MEDS: MIDODRINE 5 MG TAB PO SCH ×3 (06:28→17:14)
[2017-09-07 07:15] LABS: BICARBONATE 27.4 MEQ/L (21.0-32.0); MAGNESIUM 1.7 MG/DL (1.5-2.5); POTASSIUM 4.7 MEQ/L (3.5-5.1)
[2017-09-07] MEDS: PANTOPRAZOLE SOD 40 MG DELAYED RELEASE TAB PO SCH ×2 (08:17→20:55)
[2017-09-07] MEDS: FLUCONAZOLE 100 MG TAB PO SCH (08:17)
[2017-09-07] MEDS: CALCIUM ACETATE 667 MG CAP PO SCH ×3 (08:17→17:14)
[2017-09-07] MEDS: POLYETHYLENE GLYCOL 17 GM PKG PO SCH ×2 (08:17→09:00)
[2017-09-07] MEDS: HYDROCORTISONE 10 MG TAB PO SCH (08:17)
[2017-09-07] MEDS: DOCUSATE SODIUM 50 MG/SENNA 8.6 MG TAB PO SCH ×2 (08:17→20:55)
[2017-09-07] MEDS: SODIUM CHLORIDE 0.9% FLUSH 10 ML FLUSH IV FLUSH SCH ×3 (08:18→20:27)
[2017-09-07 09:11] LABS: HEMATOCRIT 22.8 % (39.0-51.0); MEAN CELL VOLUME 92.5 FL (80.0-100.0); MEAN CORPUSCULAR HEMOGLOBIN 30.2 PG (27.0-34.0); MEAN CORPUSCULAR HGB CONC 32.7 % (32.0-36.0); PLATELET COUNT 139 TH/MM3 (150-450); RED BLOOD COUNT 2.47 MIL/MM3 (4.50-5.90); RED CELL DISTRIBUTION WIDTH 20.8 % (11.6-17.2); REVIEW FLAG FINAL; WHITE BLOOD COUNT 7.7 TH/MM3 (4.0-11.0)
[2017-09-07] MEDS: HEPARIN-D5W 25,000 U/250 ML 250 ML IV PRN (09:14)
[2017-09-07] MEDS: ALBUMIN 25% INJ 100 ML IV PRN ×2 (09:22→09:32)
[2017-09-07 09:26] LABS: APTT (PATIENT) 36.1 SEC (24.3-30.1)
[2017-09-07] MEDS: EPOETIN ALFA 10,000 UNITS/ML VIAL IV PUSH PRN (10:35)
[2017-09-07] MEDS: GELATIN 12 MM/7 MM FOAM TOP PRN (11:28)
[2017-09-07] MEDS: ACETAMINOPHEN/HYDROcodone 325 MG/5 MG TAB PO PRN ×2 (12:01→23:54)
--- NOTE | 2017-09-07 18:11 | HHI.NPPN ---
Subjective History of Present Illness This patient is a 46-year-old male with a history of end-stage renal disease, SLE, hypertension, peripheral vascular disease as well as secondary hyperparathyroidism of renal disease. Unfortunately the patient has had multiple dialysis accesses including dialysis shunts and dialysis catheters in the past complicated by access failure as well as infection. Patient now has very limited options for dialysis access. We were relying on a left femoral dialysis line for access. Fortunately vessel surgery was able to create a left arm AV dialysis fistula back in February. We have used the access for dialysis 3 and the patient was scheduled to have his PermCath removed this Tuesday however presented to the dialysis facility with lethargy and pyrexia. Sepsis imost likely recurrence of line infection most likely consideration. Since admission however noted to have GI bleed and upper endoscopy revealed severe gastritis, and duodenum and mention of large bleeding esophageal varices Interval History Patient completed hemodialysis today. No verbal complaints in that regard. Review of Systems Cardiovascular Cardiac: Edema Objective Data Data 09/07/17 09/08/17 19:00 07:00 Intake Total 773 ml Output Total 4000 ml Balance -3227 ml IV Total 773 ml Hemodialysis 4000 ml Vital Signs Date Time Temp Pulse Resp B/P (MAP) Pulse Ox O2 Delivery O2 Flow Rate FiO2 09/07/17 17:06 14 09/07/17 16:00 86 09/07/17 16:00 98.6 86 51 130/71 (90) 98 09/07/17 16:00 95 Nasal Cannula 2.00 09/07/17 14:00 96 09/07/17 14:00 95 Nasal Cannula 2.00 09/07/17 13:01 18 09/07/17 12:00 98.5 101 28 131/60 (83) 100 09/07/17 12:00 101 09/07/17 12:00 98 Nasal Cannula 3.00 09/07/17 10:00 100 09/07/17 10:00 92 Nasal Cannula 3.00 09/07/17 08:00 98 Nasal Cannula 2.00 09/07/17 08:00 90 09/07/17 08:00 98.9 97 18 165/78 (107) 89 09/07/17 08:00 97 09/07/17 06:00 90 09/07/17 06:00 88 Nasal Cannula 2.00 09/07/17 04:00 93 Nasal Cannula 2.00 09/07/17 04:00 84 09/07/17 04:00 99.0 84 15 138/61 (86) 93 09/07/17 02:00 88 09/07/17 02:00 88 Nasal Cannula 2.00 09/07/17 00:01 99.9 86 20 123/56 (78) 92 09/07/17 00:00 92 Nasal Cannula 2.00 09/07/17 00:00 86 09/06/17 22:00 89 09/06/17 22:00 90 Nasal Cannula 2.00 09/06/17 20:00 99.2 101 19 128/61 (83) 92 09/06/17 20:00 92 Nasal Cannula 2.00 09/06/17 20:00 101 09/06/17 19:03 92 Nasal Cannula 2.00 -: 09/07/17 0852 09/07/17 0627 Physical Exam General Appearance: No Acute Distress Eyes Eye Exam: Sclera White Pulmonary Resp Exam: Clear Bilaterally, Breath Sounds Equal, No Distress Cardiology CV Exam: Regular, Normal Sinus Rhythm Gastrointestinal/Abdomen GI Exam: Soft, Non-Tender Integumentary Skin Exam: Clear, Warm Extremeties Extremities Exam: No Edema, Moderate Edema (2+ pitting edema involving his left upper extremity. ), Pitting Edema, Dependent Edema Neurologic Neuro Exam: Alert, Awake, Speech Clear, Moving All Extremities Psychiatric Psych Exam: Appropriate Responses Assessment/Plan Discussed Condition With: Patient Problem List: (1) End-stage renal disease on hemodialysis ICD Codes: N18.6 - End stage renal disease; Z99.2 - Dependence on renal dialysis Status: Chronic Plan: Blood sugars appear to be stabilizing based on laboratory results. Recommend to try to taper down the D10W to reduce fluid load in this dialysis patient. Volume status has improved however with dialysis but would like to try and avoid daily dialysis as the patient's AV fistula was only recently created after difficulty given the patient's lack of vascular sites left. Transfer to [facility] pending. Mild fever. ID on case. Femoral line still in place Medications should be adjusted for the patient's ESRD. Avoid gadolinium. (2) Localized edema ICD Codes: R60.0 - Localized edema Plan: Of the left upper extremity has improved but still persistent. Doppler study was negative for significant DVT however uncertain if the patient may have a central venous stenosis related to previous dialysis catheter placement. I will radiology for an opinion. Patient probably does have significant dye allergy which complicates the issue. (3) Hypoglycemia ICD Codes: E16.2 - Hypoglycemia, unspecified Plan: Patient's hypoglycemia may be related to his end-stage renal disease as clearance of insulin is reduced in the setting of CKD. Patient may possibly also have subclinical hepatic disease coexisting given the fact that he has varices. C-peptide levels can be elevated in the setting of chronic kidney disease secondary to reduced clearance of insulin by the kidney as well as with insulinomas. Pending transfer to [facility] for further evaluation. Has been accepted, awaiting bed. (4) Anemia of renal disease ICD Codes: D63.1 - Anemia in chronic kidney disease Status: Chronic Plan: Epo with HD (5) Esophageal varices determined by endoscopy ICD Codes: I85.00 - Esophageal varices without bleeding Status: Resolved Plan: As far as I'm aware the patient has no known history of cirrhosis. Previous hepatitis profile negative. 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 Clarence Merlos MD Sep 07, 2017 18:11
[2017-09-07] MEDS: LORATADINE 10 MG TAB PO SCH (20:55)
[2017-09-07 21:12] LABS: APTT (PATIENT) 34.1 SEC (24.3-30.1)
--- NOTE | 2017-09-07 23:28 | HHI.PR ---
Subjective Remarks Patient denies cp/sob. Still has edema in left upper extremity although thinks it might be better still having low grade fevers Objective Vitals Vital Signs Date Time Temp Pulse Resp B/P (MAP) Pulse Ox O2 Delivery O2 Flow Rate FiO2 09/07/17 22:00 95 Nasal Cannula 2.00 09/07/17 22:00 92 09/07/17 21:53 92 21 09/07/17 20:00 97 09/07/17 20:00 96 Nasal Cannula 2.00 09/07/17 20:00 100.3 97 21 140/65 (90) 99 09/07/17 18:00 81 09/07/17 18:00 95 Nasal Cannula 2.00 09/07/17 17:06 14 09/07/17 16:00 86 09/07/17 16:00 98.6 86 51 130/71 (90) 98 09/07/17 16:00 95 Nasal Cannula 2.00 09/07/17 14:00 96 09/07/17 14:00 95 Nasal Cannula 2.00 09/07/17 13:01 18 09/07/17 12:00 98.5 101 28 131/60 (83) 100 09/07/17 12:00 101 09/07/17 12:00 98 Nasal Cannula 3.00 09/07/17 10:00 100 09/07/17 10:00 92 Nasal Cannula 3.00 09/07/17 08:00 98 Nasal Cannula 2.00 09/07/17 08:00 90 09/07/17 08:00 98.9 97 18 165/78 (107) 89 09/07/17 08:00 97 09/07/17 06:00 90 09/07/17 06:00 88 Nasal Cannula 2.00 09/07/17 04:00 93 Nasal Cannula 2.00 09/07/17 04:00 84 09/07/17 04:00 99.0 84 15 138/61 (86) 93 09/07/17 02:00 88 09/07/17 02:00 88 Nasal Cannula 2.00 09/07/17 00:01 99.9 86 20 123/56 (78) 92 09/07/17 00:00 92 Nasal Cannula 2.00 09/07/17 00:00 86 I/O 11/29/17 11/29/09/07/17 09/08/17 09/08/17 09/08/17 07:00 15:00 23:00 07:00 15:00 23:00 Intake Total 1634.8 ml 773 ml 2282 ml Output Total 4000 ml Balance 1634.8 ml -3227 ml 2282 ml Intake Oral 480 ml 500 ml IV Total 1154.8 ml 773 ml 1782 ml Hemodialysis 4000 ml # Voids 0 0 # Bowel Movements 0 1 Result Diagram: 09/07/17 0852 09/07/17 0627 Imaging Last 72 hours Impressions Upper Extremity Ultrasound 09/06/17 0000 Signed Impressions: Service Date/Time: Wednesday, September 06, 2017 20:32 - CONCLUSION: 1. Nonocclusive superficial thrombus in the left cephalic vein. No deep venous thrombosis. Hayden Turcios MD Objective Remarks GENERAL: NAD, A&Ox3 HEAD: Normocephalic. NECK: Supple, trachea midline. No lymphadenopathy. EYES: No scleral icterus. No injection or drainage. CARDIOVASCULAR: Regular rate and rhythm without murmurs, gallops, or rubs. RESPIRATORY: Breath sounds equal bilaterally. No accessory muscle use. GASTROINTESTINAL: Abdomen soft, non-tender, nondistended. MUSCULOSKELETAL: No cyanosis. History bilateral [id number] amputation's. Right second/third finger amputations. Left arm edema, induration, tenderness to palpation. SKIN: Warm and dry. Scars of right forearm NEURO: No focal neurological deficitis. PSYCH: Slightly flattened affect. Procedures EGD PROCEDURE REPORT EXAM DATE: 08/13/2017 INDICATIONS: The patient is a 46 yr old male here for an EGD due to melena PROCEDURE PERFORMED: EGD w/ band ligation of varices MEDICATIONS: None and Per Anesthesia. TOPICAL ANESTHETIC: none CONSENT: The patient understands the risks and benefits of the procedure and understands that these risks include, but are not limited to: sedation, allergic reaction, infection, perforation and/or bleeding. Alternative means of evaluation and treatment include, among others: physical exam, x-rays, and/or surgical intervention. The patient elects to proceed with this endoscopic procedure. medical equipment was checked for proper function. Hand hygiene and appropriate measures for infection prevention was taken. After the risks, benefits and alternatives of the procedure were thoroughly explained, Informed consent was verified, confirmed and timeout was successfully executed by the treatment team. The patient was anesthetized with topical anesthesia and the Pentax [id number] endoscope was introduced through the mouth and advanced to the second portion of the duodenum. Retroflexion was performed and was normal The gastroscope was then slowly withdrawn and removed. ESOPHAGUS: There were large varices in the middle third of the esophagus and lower third esophagus. The varices were bleeding intermittently with spurting spot , 6 bands applied and bleeding controlled. STOMACH: There was severe and erosive gastritis in the entire examined stomach. DUODENUM: Multiple large shallow erosions were found in the duodenal bulb and 2nd part duodenum. ADVERSE EVENTS: There were no complications. IMPRESSIONS: 1. Bleeding Esophageal varices, with active bleeding identified, 6 bands applied to controll the bleeding 2. There was gastritis in the entire examined stomach 3. Multiple large erosions were found in the duodenal bulb and 2nd part duodenum RECOMMENDATIONS: Continue PPI , start Octreotide, PATIENT CONDITION: stable DISPOSITION: Observation REPEAT EXAM: Return 4 weeks EGD Chon Rodriguez MD 08/13/2017 1:38 PM Medications and IVs Current Medications Medications (Trade) Dose Ordered Sig/Nohelia Route Start Time Stop Time Status Last Admin (NS Flush) 2 ml UNSCH PRN IV FLUSH 08/12/17 11:45 08/31/17 14:50 (NS Flush) 2 ml BID IV FLUSH 08/12/17 21:00 09/07/17 20:27 (Tylenol) 650 mg Q6H PRN PO 08/12/17 11:45 08/29/17 18:25 (Zofran Inj) 4 mg Q6H PRN IV PUSH 08/12/17 11:45 08/15/17 13:52 (Albuterol Neb) 2.5 mg Q2HR NEB PRN INH 08/12/17 11:45 Miscellaneous Information 1 Q361D XX 08/12/17 11:45 (Angelika-Colace) 1 tab BID PO 08/12/17 21:00 09/07/17 08:17 (Milk Of Magnesia Liq) 30 ml Q12H PRN PO 08/12/17 11:45 (Senokot) 17.2 mg Q12H PRN PO 08/12/17 11:45 08/27/17 13:22 (Dulcolax Supp) 10 mg DAILY PRN RECTAL 08/12/17 11:45 (Lactulose Liq) 30 ml DAILY PRN PO 08/12/17 11:45 (Proamatine) 10 mg TID@07,12,17 PO 08/12/17 12:00 09/07/17 17:14 (Xanax) 1 mg Q8H PRN PO 08/12/17 12:00 09/02/17 20:53 (Brethine Inj) 1 mg UNSCH PRN SQ 08/12/17 12:00 08/13/17 03:13 (Mannitol Inj) 12.5 gm UNSCH PRN IV 08/13/17 14:00 Albumin Human 100 ml @ 60 mls/hr UNSCH PRN IV 08/13/17 14:00 09/07/17 09:32 (NS Flush) 5 ml UNSCH PRN IV FLUSH 08/13/17 14:00 (Zofran Inj) 4 mg UNSCH PRN IV PUSH 08/13/17 14:00 (Tylenol) 650 mg UNSCH PRN PO 08/13/17 14:00 08/24/17 16:02 (Benadryl) 25 mg UNSCH PRN PO 08/13/17 14:00 09/07/17 09:53 (Nitrostat Sl) 0.4 mg UNSCH PRN SL 08/13/17 14:00 (Catapres) 0.1 mg UNSCH PRN PO 08/13/17 14:00 (Gelfoam 12 Mm/7 Mm Top) 1 foam UNSCH PRN TOP 08/13/17 14:00 09/07/17 11:28 (Phoslo) 1,334 mg TID PO 08/15/17 13:00 09/07/17 17:14 (Epogen Inj) 10,000 units UNSCH PRN IV PUSH 08/16/17 10:15 09/07/17 10:35 (Protonix) 40 mg Q12HR PO 08/18/17 21:00 09/07/17 20:55 (D50w (Vial) Inj) 50 ml UNSCH PRN IV PUSH 08/22/17 08:30 09/05/17 16:31 (Glucagon Inj) 1 mg STAT PRN IM 08/22/17 08:30 Heparin Sodium/ Dextrose 250 ml @ 14 mls/hr TITRATE PRN IV 08/24/17 17:00 09/07/17 09:14 ([place] 5-325 Mg) 1 tab Q4H PRN PO 08/24/17 17:00 09/07/17 12:01 ([place] 10-325 Mg) 1 tab Q4H PRN PO 08/24/17 17:00 09/07/17 20:55 (NS Flush) DAILY IV FLUSH 08/26/17 09:00 09/07/17 08:18 (NS Flush) UNSCH PRN IV FLUSH 08/25/17 14:45 (Cortef) 10 mg DAILY PO 08/27/17 09:00 09/07/17 08:17 (Claritin) 10 mg HS PO 08/28/17 21:00 09/07/17 20:55 (Diflucan) 100 mg DAILY PO 09/01/17 09:00 09/08/17 08:59 09/07/17 08:17 (Miralax) 17 gm DAILY PO 09/04/17 10:00 Dextrose 1,000 ml @ 90 mls/hr Q11H7M IV 09/07/17 12:00 09/07/17 20:55 A/P Problem List: (1) Elevated lactic acid level ICD Code: E87.2 - Acidosis Status: Acute (2) HYPOTENSION OF HEMODIALYSIS ICD Code: I95.3 - HYPOTENSION OF HEMODIALYSIS Status: Resolved (3) Fever ICD Code: R50.9 - Fever, unspecified Status: Resolved (4) ESRD (end stage renal disease) on dialysis ICD Code: N18.6 - End stage renal disease; Z99.2 - Dependence on renal dialysis Status: Chronic (5) Lupus (systemic lupus erythematosus) ICD Code: M32.9 - Systemic lupus erythematosus, unspecified (6) Hypoglycemia ICD Code: E16.2 - Hypoglycemia, unspecified (7) Anemia ICD Code: D64.9 - Anemia, unspecified Status: Acute (8) Chronic anticoagulation ICD Code: Z79.01 - termination clerk (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 of anticoagulants (9) H/O hypercoagulable state ICD Code: Z86.2 - Personal history of diseases of the blood and blood-forming organs and certain disorders involving the immune mechanism (10) Elevated glucose ICD Code: R73.09 - Other abnormal glucose (11) Hypoalbuminemia ICD Code: E88.09 - Other disorders of plasma-protein metabolism, not elsewhere classified (12) Thrombocytopenia ICD Code: D69.6 - Thrombocytopenia, unspecified (13) Elevated AST (SGOT) ICD Code: R74.0 - Nonspecific elevation of levels of transaminase and lactic acid dehydrogenase [LDH] (14) Macrocytic anemia ICD Code: D53.9 - Nutritional anemia, unspecified (15) Severe sepsis ICD Code: A41.9 - Sepsis, unspecified organism; R65.20 - Severe sepsis without septic shock (16) History of DVT (deep vein thrombosis) ICD Code: Z86.718 - Personal history of other venous thrombosis and embolism (17) History of pulmonary embolism ICD Code: Z86.711 - Personal history of pulmonary embolism (18) Gastroesophageal reflux disease ICD Code: K21.9 - Gastro-esophageal reflux disease without esophagitis (19) Coronary artery disease ICD Code: I25.10 - Atherosclerotic heart disease of [place] coronary artery without angina pectoris (20) 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 Admitted secondary to severe sepsis related to pneumonia. Discharge has been on hold secondary to hypoglycemia. Right hand Accu-Chek show hypoglycemia prior to lunch dosing. Discharge held. Insulin studies show elevations. Insulinoma workup ongoing. MRI pending. No occlusive thrombus left upper extremity. He has small clots in this arm which is chronic for him. He is on heparin drip at this point. Deferring resumption of Coumadin for possible need of surgery for insulinoma. If no evidence of insulinoma on MRI consider transfer for endocrinology evaluation and management. Central line placement on 08/25/17. Hypoglycemia Not yet improved, chronic problem. May be related to depleted glycogen stores vs s/t renal disease or insulinoma. MRI of abdomen and pelvis with motion artifact, so study was inconclusive. Pt with contrast allergy and ESRD, so CT pancreatic protocol cannot be done. - Started and being treated with D10. - Will look into transferring the pt to facility with endocrinology department. qual field manager assistance appreciated. [facility] accepted pt. Awaiting availability of an ICU bed. 09/06 Hypoglycemia seems to be stable. Will decrease rate of IV fluids D10 down to 100 ml/hr from 125 ml/hr. 09/07 Blood sugars stable, continue D10 - rate decreased to 90 ml/hr. LUE edema May be s/t cellulitis. Tender to palpation. US showed: Small amount of nonocclusive thrombus in the cephalic vein, otherwise unremarkable study. CT scan with significant edema and fluid between the fascia and subcutaneous fat. - keep arm elevated. - antibiotics per ID. Acute respiratory failure Required NRB at 100% 09/02. Repeat chest x-ray and ABG were stable. Currently breathing comfortably. O2 saturation level may have been erroneously low secondary to peripheral vascular disease. - oxygen as needed. - monitor in ICU. Stable. Sinus tachycardia A fib with RVR reported on EKG. EKG appears to actually showed sinus tach with PVCs. Currently appears to be in sinus rhythm on telemetry. Repeat EKG confirms sinus rhythm. - DC diltiazem. Resume as needed. - telemetry. Anxiety disorder NOS/ Acute toxic metabolic encephalopathy Stable. - Continue as needed alprazolam. Severe sepsis/ History of bacteremia Resolved. Tunneled vas cath removed 08/12. - Will continue vancomycin and Diflucan for now per ID. Cultures remain negative. Coronary artery disease status post stent/ PAD/ Chronic hypotension related to dialysis Clinically asymptomatic. - Continue midodrine. Gastroesophageal reflux disease The pt had bleeding Esophageal varices s/p banding. Also noted was gastritis and multiple large erosions in the duodenal bulb and 2nd part of the duodenum. - Continue Protonix BID. - GI follow-up as an outpatient - holding Coumadin. On heparin gtt. End-stage renal disease/ Lupus nephritis/ Hyperphosphatemia The pt is on hemodialysis Tuesday/Tuesday and Tuesday per nephrology. - Continue sevelamer 1600 mg 3 times a day for hyperphosphatemia. - dialysis. Macrocytic anemia/ Anemia of chronic kidney disease/ Acute blood loss anemia/ Thrombocytopenia/ Hypercoagulable state Stable. - Coumadin on hold for now (this had been on hold secondary to GI bleed). Continue heparin drip. - Lifelong anticoagulation. History bilateral [id number] amputation's/ Right second/third finger amputation - continue supportive care - Physical/ occupational therapy. Constipation Ongoing. - add Miralax and lactulose. Dulcolax supp if needed. DVT prophylaxis Coumadin on hold due to active bleeding. Resume Coumadin when stabilized. Heparin gtt. Discharge Planning Transfer to [facility] when bed [facility] available. Problem Qualifiers (1) Fever: Qualified Codes: R50.9 - Fever, unspecified (2) Lupus (systemic lupus erythematosus): Qualified Codes: M32.15 - Tubulo-interstitial nephropathy in systemic lupus erythematosus (3) Anemia: Qualified Codes: N18.6 - End stage renal disease; D63.1 - Anemia in chronic kidney disease; Z99.2 - Dependence on renal dialysis (4) Gastroesophageal reflux disease: Qualified Codes: K21.9 - Gastro-esophageal reflux disease without esophagitis (5) Coronary artery disease: Qualified Codes: I25.10 - Atherosclerotic heart disease of [place] coronary artery without angina pectoris Sammy De León MD Sep 07, 2017 23:28
[2017-09-08] VITALS (13 sets, daily range): BP systolic 136–189; BP diastolic 74–90; PULSE 87–105; RESP 15–24; TEMP 98.3–99.3; O2SAT 92–100
[2017-09-08] MEDS: MIDODRINE 5 MG TAB PO SCH ×3 (05:24→17:00)
[2017-09-08 06:48] LABS: HEMATOCRIT 27.2 % (39.0-51.0); MEAN CELL VOLUME 92.6 FL (80.0-100.0); MEAN CORPUSCULAR HGB CONC 32.4 % (32.0-36.0); PLATELET COUNT 161 TH/MM3 (150-450); RED BLOOD COUNT 2.94 MIL/MM3 (4.50-5.90); RED CELL DISTRIBUTION WIDTH 21.4 % (11.6-17.2); REVIEW FLAG FINAL; WHITE BLOOD COUNT 7.8 TH/MM3 (4.0-11.0)
[2017-09-08] MEDS: DEXTROSE 10% INJ 1,000 ML IV SCH ×2 (07:54→18:45)
[2017-09-08] MEDS: SODIUM CHLORIDE 0.9% FLUSH 10 ML FLUSH IV FLUSH SCH ×3 (09:00→20:16)
[2017-09-08] MEDS: CALCIUM ACETATE 667 MG CAP PO SCH ×3 (09:39→18:00)
[2017-09-08] MEDS: PANTOPRAZOLE SOD 40 MG DELAYED RELEASE TAB PO SCH ×2 (09:40→20:16)
[2017-09-08] MEDS: HYDROCORTISONE 10 MG TAB PO SCH (09:40)
[2017-09-08] MEDS: POLYETHYLENE GLYCOL 17 GM PKG PO SCH (09:40)
[2017-09-08] MEDS: DOCUSATE SODIUM 50 MG/SENNA 8.6 MG TAB PO SCH ×2 (09:40→19:50)
[2017-09-08] MEDS: ACETAMINOPHEN/HYDROcodone 325 MG/10 MG TAB PO PRN (10:22)
[2017-09-08] MEDS ORDERED: DEXTROSE 50% IN WATER 50 ML SYRINGE ONE (10:39)
[2017-09-08 11:15] LABS: APTT (PATIENT) 75.8 SEC (24.3-30.1)
[2017-09-08] MEDS: HEPARIN-D5W 25,000 U/250 ML 250 ML IV PRN (14:30)
--- NOTE | 2017-09-08 15:09 | HHI.IDPN ---
Subjective Subjective Remarks Patient is a 46-year-old male, presented to the hospital for further evaluation of hypotension. He has known end-stage renal disease, and gets hemodialysis every Tuesday and Tuesday. He was in the dialysis clinic and he was found to be febrile, hypotensive, and tachycardic. He completed his treatment, and he was advised to go to the hospital for further evaluation and treatment. Patient currently has been having fevers since his been in the emergency room. He is also complaining of being sick to his stomach, and has had some nausea. Denies any abdominal pain. He denies any respiratory complaint. Patient has known central venous occlusion, and the only patent venous access for dialysis has been in his left femoral groin. During his last admission in June, he was treated for staph epidermides and Bryon proptosis sepsis. He was supposed to complete treatment till July 11. The catheter was exchanged during that admission. Patient has a right upper extremity AV fistula, and it was evaluated by the vascular surgeon when he was discharged from the hospital, and the last 3 dialysis, his AV fistula has been used. Patient also during his last admission had problem with hypoglycemia and his workup was negative at that time. Infectious disease consultation has been requested to evaluate the patient. Initial evaluation, patient was treated for sepsis due to the permacath. The permacath was removed Culture from the permacath showed yeast and corynebacterium. He received Diflucan and Vanco. Notes reviewed D/W RN Temps better Remains on D10 for hypoglycemia Waiting for bwed at [facility] CXR no change in opacities Breathing is better, on nasal O2 BP ok Has central line L groin placed 08/25 Antibiotics Current Medications Medications (Trade) Dose Ordered Sig/Nohelia Route Start Time Stop Time Status Last Admin (NS Flush) 2 ml UNSCH PRN IV FLUSH 08/12/17 11:45 08/31/17 14:50 (NS Flush) 2 ml BID IV FLUSH 08/12/17 21:00 09/07/17 20:27 (Tylenol) 650 mg Q6H PRN PO 08/12/17 11:45 08/29/17 18:25 (Zofran Inj) 4 mg Q6H PRN IV PUSH 08/12/17 11:45 08/15/17 13:52 (Albuterol Neb) 2.5 mg Q2HR NEB PRN INH 08/12/17 11:45 Miscellaneous Information 1 Q361D XX 08/12/17 11:45 (Angelika-Colace) 1 tab BID PO 08/12/17 21:00 09/08/17 09:40 (Milk Of Magnesia Liq) 30 ml Q12H PRN PO 08/12/17 11:45 (Senokot) 17.2 mg Q12H PRN PO 08/12/17 11:45 08/27/17 13:22 (Dulcolax Supp) 10 mg DAILY PRN RECTAL 08/12/17 11:45 (Lactulose Liq) 30 ml DAILY PRN PO 08/12/17 11:45 (Proamatine) 10 mg TID@, PO 08/12/17 12:00 09/08/17 05:24 (Xanax) 1 mg Q8H PRN PO 08/12/17 12:00 09/02/17 20:53 (Brethine Inj) 1 mg UNSCH PRN SQ 08/12/17 12:00 08/13/17 03:13 (Mannitol Inj) 12.5 gm UNSCH PRN IV 08/13/17 14:00 Albumin Human 100 ml @ 60 mls/hr UNSCH PRN IV 08/13/17 14:00 09/07/17 09:32 (NS Flush) 5 ml UNSCH PRN IV FLUSH 08/13/17 14:00 (Zofran Inj) 4 mg UNSCH PRN IV PUSH 08/13/17 14:00 (Tylenol) 650 mg UNSCH PRN PO 08/13/17 14:00 08/24/17 16:02 (Benadryl) 25 mg UNSCH PRN PO 08/13/17 14:00 09/07/17 09:53 (Nitrostat Sl) 0.4 mg UNSCH PRN SL 08/13/17 14:00 (Catapres) 0.1 mg UNSCH PRN PO 08/13/17 14:00 (Gelfoam 12 Mm/7 Mm Top) 1 foam UNSCH PRN TOP 08/13/17 14:00 09/07/17 11:28 (Phoslo) 1,334 mg TID PO 08/15/17 13:00 09/08/17 09:39 (Epogen Inj) 10,000 units UNSCH PRN IV PUSH 08/16/17 10:15 09/07/17 10:35 (Protonix) 40 mg Q12HR PO 08/18/17 21:00 09/08/17 09:40 (D50w (Vial) Inj) 50 ml UNSCH PRN IV PUSH 08/22/17 08:30 09/05/17 16:31 (Glucagon Inj) 1 mg STAT PRN IM 08/22/17 08:30 Heparin Sodium/ Dextrose 250 ml @ 14 mls/hr TITRATE PRN IV 08/24/17 17:00 09/08/17 14:30 ([place] 5-325 Mg) 1 tab Q4H PRN PO 08/24/17 17:00 09/07/17 23:54 ([place] 10-325 Mg) 1 tab Q4H PRN PO 08/24/17 17:00 09/08/17 10:22 (NS Flush) DAILY IV FLUSH 08/26/17 09:00 09/07/17 08:18 (NS Flush) UNSCH PRN IV FLUSH 08/25/17 14:45 (Cortef) 10 mg DAILY PO 08/27/17 09:00 09/08/17 09:40 (Claritin) 10 mg HS PO 08/28/17 21:00 09/07/17 20:55 (Miralax) 17 gm DAILY PO 09/04/17 10:00 09/08/17 09:40 Dextrose 1,000 ml @ 90 mls/hr Q11H7M IV 09/07/17 12:00 09/08/17 07:54 (Deltasone) 50 mg ONCE ONCE PO 09/08/17 21:00 09/08/17 21:01 (Deltasone) 50 mg ONCE ONCE PO 09/09/17 03:00 09/09/17 03:01 (Deltasone) 50 mg ONCE ONCE PO 09/09/17 09:00 09/09/17 09:01 (Benadryl) 50 mg ONCE ONCE PO 09/09/17 09:00 09/09/17 09:01 Lines L groin TLC - 08/25 Past Medical History ESRD, on hemodialysis MWF SLE CAD Hypertension Severe PVD History of DVT Hyperparathyroidism of renal origin Previous hemodialysis catheter line related infection Known central venous occlusion Status post treatment staph epi and bryon sepsis Past Surgical History 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 Vital Signs Date Time Temp Pulse Resp B/P (MAP) Pulse Ox O2 Delivery O2 Flow Rate FiO2 09/08/17 14:00 87 09/08/17 14:00 Nasal Cannula 2.00 21 09/08/17 12:00 87 09/08/17 12:00 Nasal Cannula 2.00 21 09/08/17 12:00 98.3 97 24 189/75 (113) 09/08/17 11:22 16 09/08/17 10:00 Nasal Cannula 2.00 21 09/08/17 10:00 87 09/08/17 08:00 Nasal Cannula 2.00 21 09/08/17 08:00 98.5 95 15 163/78 (106) 98 09/08/17 08:00 87 09/08/17 07:15 99 Nasal Cannula 2.00 09/08/17 06:00 96 Nasal Cannula 2.00 09/08/17 06:00 98 09/08/17 04:00 97 09/08/17 04:00 99.0 97 23 153/77 (102) 100 09/08/17 04:00 96 Nasal Cannula 2.00 09/08/17 02:00 96 Nasal Cannula 2.00 09/08/17 02:00 92 09/08/17 00:00 97 09/08/17 00:00 96 Nasal Cannula 2.00 09/08/17 00:00 99.3 97 18 136/74 (94) 92 09/07/17 22:00 95 Nasal Cannula 2.00 09/07/17 22:00 92 09/07/17 21:53 92 21 09/07/17 20:00 97 09/07/17 20:00 96 Nasal Cannula 2.00 09/07/17 20:00 100.3 97 21 140/65 (90) 99 09/07/17 18:00 81 09/07/17 18:00 95 Nasal Cannula 2.00 09/07/17 16:00 86 09/07/17 16:00 98.6 86 51 130/71 (90) 98 09/07/17 16:00 95 Nasal Cannula 2.00 . Laboratory Tests Test 09/07/17 08:52 09/08/17 05:49 White Blood Count 7.7 TH/MM3 7.8 TH/MM3 Red Blood Count 2.47 MIL/MM3 2.94 MIL/MM3 Hemoglobin 7.5 GM/DL 8.8 GM/DL Hematocrit 22.8 % 27.2 % Mean Corpuscular Volume 92.5 FL 92.6 FL Mean Corpuscular Hemoglobin 30.2 PG 30.0 PG Mean Corpuscular Hemoglobin Concent 32.7 % 32.4 % Red Cell Distribution Width 20.8 % 21.4 % Platelet Count 139 TH/MM3 161 TH/MM3 Mean Platelet Volume 8.8 FL 8.3 FL Laboratory Tests Test 09/07/17 06:27 Blood Urea Nitrogen 24 MG/DL Creatinine 6.55 MG/DL Random Glucose 88 MG/DL Albumin 1.9 GM/DL Calcium Level 8.2 MG/DL Phosphorus Level 3.5 MG/DL Magnesium Level 1.7 MG/DL Sodium Level 130 MEQ/L Potassium Level 4.7 MEQ/L Chloride Level 92 MEQ/L Carbon Dioxide Level 27.4 MEQ/L Anion Gap 11 MEQ/L Estimat Glomerular Filtration Rate 11 ML/MIN Imaging RADIOLOGY STUDIES/FILMS REVIEWED Chest X-Ray 08/12/17 0910 Signed Impressions: Service Date/Time: Saturday, August 12, 2017 09:25 - CONCLUSION: 1. Stable scattered patchiness bilaterally. Chon Nye MD Central Venous Line 08/12/17 0000 Signed Impressions: Service Date/Time: Saturday, August 12, 2017 00:00 - CONCLUSION: Uncomplicated Permcath removal. Shmuel Beckett MD Physical Exam GENERAL: awake and alert, NAD SKIN: Warm and very dry. No generalized rash HEAD: Atraumatic. Normocephalic. No temporal wasting, or tenderness. EYES: [place] conjunctiva. No petechia or hemorrhage. Pupils equal, round and reactive to light. Extraocular movements full and intact. No scleral icterus. EARS, NOSE AND THROAT: Nose without bleeding or purulent nasal discharge. Mucous membranes pink and moist. No oral lesions noted. NECK: Trachea midline. Supple and not tender, no meningeal signs CARDIOVASCULAR: Regular rate and rhythm. No murmurs, rubs or gallops heard RESPIRATORY: Clear to auscultation. Breath sounds equal bilaterally. No rales , wheezing or rhonchi ABDOMEN: Soft, non-tender, nondistended. Bowel sounds present and normoactive. No guarding. No rebound. No organomegaly. EXTREMITIES: No clubbing, cyanosis, or edema. Has bilateral BKA, with a well- healed stump. LUE - very swollen again, not red. RUE AVF ok. Central line L groin looks ok NEUROLOGICAL: Non-focal PSYCHIATRIC: Normal affect, calm and cooperative. LINE: R groin central line with no evidence of infection Assessment & Plan Remarks IMPRESSION New fevers, source? low grade - ?new sepsis - likely due cellulitis LUE, better Sepsis syndrome on presentation which shocked, highly suspicious for line- related sepsis, resolved - Has had the chronic femoral permacath in place, removed Previous treatment for recent staph epi and bryon sepsis, completed treatment July 11 ESRD, on HD, MWF Known PVD Hx central venous occlusion Recurrent episodes of hypoglycemia RECOMMENDATION Accepted at [facility] but waiting for bed Monitor progress Follow temps Elevate LUE He is off Abx Explained plan to the patient D/W Louann Hart MD Sep 08, 2017 15:09
[2017-09-08 17:28] LABS: APTT (PATIENT) 95.1 SEC (24.3-30.1)
[2017-09-08] MEDS ORDERED: SODIUM CHLOR 0.9% 1000 ML INJ 1,000 ML IV PRN (18:51)
[2017-09-08] MEDS ORDERED: SODIUM CHLOR 0.9% 1000 ML INJ 1,000 ML OTHER PRN ×2 (18:51)
--- NOTE | 2017-09-08 18:57 | HHI.NPPN ---
Subjective History of Present Illness This patient is a 46-year-old male with a history of end-stage renal disease, SLE, hypertension, peripheral vascular disease as well as secondary hyperparathyroidism of renal disease. Unfortunately the patient has had multiple dialysis accesses including dialysis shunts and dialysis catheters in the past complicated by access failure as well as infection. Patient now has very limited options for dialysis access. We were relying on a left femoral dialysis line for access. Fortunately vessel surgery was able to create a left arm AV dialysis fistula back in February. We have used the access for dialysis 3 and the patient was scheduled to have his PermCath removed this Tuesday however presented to the dialysis facility with lethargy and pyrexia. Sepsis imost likely recurrence of line infection most likely consideration. Since admission however noted to have GI bleed and upper endoscopy revealed severe gastritis, and duodenum and mention of large bleeding esophageal varices Interval History Pt remains on D10. Discussed with RN who says that glucose when checked thru central line is higher than when checked via accu-check. Pending bed at [facility] at the present. Review of Systems Respiratory Lungs: SOB Cardiovascular Cardiac: Edema Objective Data Data 09/08/17 09/09/17 19:00 07:00 Intake Total 360 ml Output Total 0 ml Balance 360 ml Intake Oral 360 ml Output Urine Total 0 ml Vital Signs Date Time Temp Pulse Resp B/P (MAP) Pulse Ox O2 Delivery O2 Flow Rate FiO2 09/08/17 18:00 Nasal Cannula 2.00 21 09/08/17 18:00 87 09/08/17 16:00 Nasal Cannula 2.00 21 09/08/17 16:00 99.2 94 17 177/77 (110) 95 09/08/17 16:00 87 09/08/17 14:00 87 09/08/17 14:00 Nasal Cannula 2.00 21 09/08/17 12:00 87 09/08/17 12:00 Nasal Cannula 2.00 21 09/08/17 12:00 98.3 97 24 189/75 (113) 09/08/17 11:22 16 09/08/17 10:00 Nasal Cannula 2.00 21 09/08/17 10:00 87 09/08/17 08:00 Nasal Cannula 2.00 21 09/08/17 08:00 98.5 95 15 163/78 (106) 98 09/08/17 08:00 87 09/08/17 07:15 99 Nasal Cannula 2.00 09/08/17 06:00 96 Nasal Cannula 2.00 09/08/17 06:00 98 09/08/17 04:00 97 09/08/17 04:00 99.0 97 23 153/77 (102) 100 09/08/17 04:00 96 Nasal Cannula 2.00 09/08/17 02:00 96 Nasal Cannula 2.00 09/08/17 02:00 92 09/08/17 00:00 97 09/08/17 00:00 96 Nasal Cannula 2.00 09/08/17 00:00 99.3 97 18 136/74 (94) 92 09/07/17 22:00 95 Nasal Cannula 2.00 09/07/17 22:00 92 09/07/17 21:53 92 21 09/07/17 20:00 97 09/07/17 20:00 96 Nasal Cannula 2.00 09/07/17 20:00 100.3 97 21 140/65 (90) 99 -: 09/08/17 0549 09/07/17 0627 Imaging Last Impressions Upper Extremity Ultrasound 09/06/17 0000 Signed Impressions: Service Date/Time: Wednesday, September 06, 2017 20:32 - CONCLUSION: 1. Nonocclusive superficial thrombus in the left cephalic vein. No deep venous thrombosis. Hayden Turcios MD Upper Extremity CT 09/02/17 1505 Signed Impressions: Service Date/Time: Saturday, September 02, 2017 17:09 - CONCLUSION: Very impressive soft tissue edema across the forearm. There is fluid between the fascia and the subcutaneous fat. Ehsan Archibald MD Chest X-Ray 09/02/17 0000 Signed Impressions: Service Date/Time: Saturday, September 02, 2017 16:00 - CONCLUSION: Stable mild diffuse vascular prominence similar to previous study. Small amounts of air space disease both lung bases left greater than right unchanged. Ehsan Archibald MD Abdomen MRI 08/31/17 0000 Signed Impressions: Service Date/Time: Thursday, August 31, 2017 15:40 - CONCLUSION: 1. Very limited study due to breathing motion artifact which and lack of IV contrast. 2. Atrophic kidneys with multiple tiny cortical cysts. 3. The pancreatic duct is just out of the range of normal measuring 4 mm in diameter. I'm not able to clearly identify an obstructing mass or stone on this limited study. Consideration could be made to a pancreatic protocol CT scan which is less susceptible to motion artifact. Narendra Barreto Jr., MD Abdomen Ultrasound 08/26/17 0000 Signed Impressions: Service Date/Time: Saturday, August 26, 2017 08:06 - CONCLUSION: 1. Kidneys are echogenic which can be seen with medical renal disease. 2. Cholelithiasis. 3. Mild prominence of the main pancreatic duct. Devyn Hickey MD Central Venous Line 08/25/17 0000 Signed Impressions: Service Date/Time: August 14:47 - CONCLUSION: Uncomplicated line placement as above. Tavares Ventura MD Medication Review Current Medications Medications (Trade) Dose Ordered Sig/Nohelia Route Start Time Stop Time Status Last Admin (NS Flush) 2 ml UNSCH PRN IV FLUSH 08/12/17 11:45 08/31/17 14:50 (NS Flush) 2 ml BID IV FLUSH 08/12/17 21:00 09/07/17 20:27 (Tylenol) 650 mg Q6H PRN PO 08/12/17 11:45 08/29/17 18:25 (Zofran Inj) 4 mg Q6H PRN IV PUSH 08/12/17 11:45 08/15/17 13:52 (Albuterol Neb) 2.5 mg Q2HR NEB PRN INH 08/12/17 11:45 Miscellaneous Information 1 Q361D XX 08/12/17 11:45 (Angelika-Colace) 1 tab BID PO 08/12/17 21:00 09/08/17 09:40 (Milk Of Magnesia Liq) 30 ml Q12H PRN PO 08/12/17 11:45 (Senokot) 17.2 mg Q12H PRN PO 08/12/17 11:45 08/27/17 13:22 (Dulcolax Supp) 10 mg DAILY PRN RECTAL 08/12/17 11:45 (Lactulose Liq) 30 ml DAILY PRN PO 08/12/17 11:45 (Proamatine) 10 mg TID@,, PO 08/12/17 12:00 09/08/17 05:24 (Xanax) 1 mg Q8H PRN PO 08/12/17 12:00 09/02/17 20:53 (Brethine Inj) 1 mg UNSCH PRN SQ 08/12/17 12:00 08/13/17 03:13 (Mannitol Inj) 12.5 gm UNSCH PRN IV 08/13/17 14:00 Albumin Human 100 ml @ 60 mls/hr UNSCH PRN IV 08/13/17 14:00 09/07/17 09:32 (NS Flush) 5 ml UNSCH PRN IV FLUSH 08/13/17 14:00 (Zofran Inj) 4 mg UNSCH PRN IV PUSH 08/13/17 14:00 (Tylenol) 650 mg UNSCH PRN PO 08/13/17 14:00 08/24/17 16:02 (Benadryl) 25 mg UNSCH PRN PO 08/13/17 14:00 09/07/17 09:53 (Nitrostat Sl) 0.4 mg UNSCH PRN SL 08/13/17 14:00 (Catapres) 0.1 mg UNSCH PRN PO 08/13/17 14:00 (Gelfoam 12 Mm/7 Mm Top) 1 foam UNSCH PRN TOP 08/13/17 14:00 09/07/17 11:28 (Phoslo) 1,334 mg TID PO 08/15/17 13:00 09/08/17 09:39 (Epogen Inj) 10,000 units UNSCH PRN IV PUSH 08/16/17 10:15 09/07/17 10:35 (Protonix) 40 mg Q12HR PO 08/18/17 21:00 09/08/17 09:40 (D50w (Vial) Inj) 50 ml UNSCH PRN IV PUSH 08/22/17 08:30 09/05/17 16:31 (Glucagon Inj) 1 mg STAT PRN IM 08/22/17 08:30 Heparin Sodium/ Dextrose 250 ml @ 14 mls/hr TITRATE PRN IV 08/24/17 17:00 09/08/17 14:30 ([place] 5-325 Mg) 1 tab Q4H PRN PO 08/24/17 17:00 09/07/17 23:54 ([place] 10-325 Mg) 1 tab Q4H PRN PO 08/24/17 17:00 09/08/17 10:22 (NS Flush) DAILY IV FLUSH 08/26/17 09:00 09/07/17 08:18 (NS Flush) UNSCH PRN IV FLUSH 08/25/17 14:45 (Cortef) 10 mg DAILY PO 08/27/17 09:00 09/08/17 09:40 (Claritin) 10 mg HS PO 08/28/17 21:00 09/07/17 20:55 (Miralax) 17 gm DAILY PO 09/04/17 10:00 09/08/17 09:40 Dextrose 1,000 ml @ 90 mls/hr Q11H7M IV 09/07/17 12:00 09/08/17 18:45 (Deltasone) 50 mg ONCE ONCE PO 09/08/17 21:00 09/08/17 21:01 (Deltasone) 50 mg ONCE ONCE PO 09/09/17 03:00 09/09/17 03:01 (Deltasone) 50 mg ONCE ONCE PO 09/09/17 09:00 09/09/17 09:01 (Benadryl) 50 mg ONCE ONCE PO 09/09/17 09:00 09/09/17 09:01 Physical Exam General Appearance: No Acute Distress Eyes Eye Exam: Sclera White Pulmonary Resp Exam: Clear Bilaterally, Breath Sounds Equal, No Distress Cardiology CV Exam: Regular, Normal Sinus Rhythm Gastrointestinal/Abdomen GI Exam: Soft, Non-Tender Integumentary Skin Exam: Clear, Warm Extremeties Extremities Exam: No Edema, Moderate Edema (2+ pitting edema involving his left upper extremity. ), Pitting Edema, Dependent Edema Neurologic Neuro Exam: Alert, Awake, Speech Clear, Moving All Extremities Psychiatric Psych Exam: Appropriate Responses Assessment/Plan Discussed Condition With: Patient Problem List: (1) End-stage renal disease on hemodialysis ICD Codes: N18.6 - End stage renal disease; Z99.2 - Dependence on renal dialysis Status: Chronic Plan: Continue HD MWF as per outpatient schedule. Will dialyze intermittently in between if needed for fluid overload. D10 being tapered and now on 90mL/hr. Continue taper as per primary. Should be noted that glucose appears to be higher when obtained thru central line versus accu-check. BP elevated today. Hold Midodrine if BP >150/90 Transfer to [facility] pending. Medications should be adjusted for the patient's ESRD. Avoid gadolinium. (2) Localized edema ICD Codes: R60.0 - Localized edema Plan: LUE improving, but still present. Undergoing venogram in the AM to assess for potential central stenosis. (3) Hypoglycemia ICD Codes: E16.2 - Hypoglycemia, unspecified Plan: Patient's hypoglycemia may be related to his end-stage renal disease as clearance of insulin is reduced in the setting of CKD. Patient may possibly also have subclinical hepatic disease coexisting given the fact that he has varices. C-peptide levels can be elevated in the setting of chronic kidney disease secondary to reduced clearance of insulin by the kidney as well as with insulinomas. Pending transfer to [facility] for further evaluation. Has been accepted, awaiting bed. (4) Anemia of renal disease ICD Codes: D63.1 - Anemia in chronic kidney disease Status: Chronic Plan: Epo with HD (5) Esophageal varices determined by endoscopy ICD Codes: I85.00 - Esophageal varices without bleeding Status: Resolved Plan: As far as I'm aware the patient has no known history of cirrhosis. Previous hepatitis profile negative. 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 Gladis Cole Sep 08, 2017 18:57
[2017-09-08] MEDS ORDERED: NITROGLYCERIN 0.4 MG SL 25 TABS/BTL SL PRN (19:00)
[2017-09-08] MEDS ORDERED: ONDANSETRON HCL 4 MG/2 ML VIAL IV PUSH PRN (19:00)
[2017-09-08] MEDS ORDERED: MANNITOL 12.5 GM/50 ML VIAL IV PRN (19:00)
[2017-09-08] MEDS ORDERED: ALBUMIN 25% INJ 100 ML IV PRN (19:00)
[2017-09-08] MEDS ORDERED: diphenhydrAMINE HCL 25 MG CAP PO PRN (19:00)
[2017-09-08] MEDS ORDERED: GELATIN 12 MM/7 MM FOAM TOP PRN (19:00)
[2017-09-08] MEDS ORDERED: SODIUM CHLORIDE 0.9% FLUSH 10 ML FLUSH IV FLUSH PRN (19:00)
[2017-09-08] MEDS ORDERED: cloNIDine HCL 0.1 MG TAB PO PRN (19:00)
[2017-09-08] MEDS ORDERED: ACETAMINOPHEN 325 MG TAB PO PRN (19:00)
[2017-09-08] MEDS ORDERED: HEPARIN SODIUM - IV 10,000 UNITS/10 ML VIAL PRN (19:00)
[2017-09-08] MEDS ORDERED: GENTAMICIN SULFATE (DIALYSIS USE ONLY) 20 MG/2 ML VIAL OTHER PRN (19:00)
--- NOTE | 2017-09-08 19:14 | HHI.PR ---
Subjective Remarks c/o blurry vision in the left eye which started recently after he woke up. denies headache Blood sugars have been stable Objective Vitals Vital Signs Date Time Temp Pulse Resp B/P (MAP) Pulse Ox O2 Delivery O2 Flow Rate FiO2 09/08/17 18:00 Nasal Cannula 2.00 21 09/08/17 18:00 87 09/08/17 16:00 Nasal Cannula 2.00 21 09/08/17 16:00 99.2 94 17 177/77 (110) 95 09/08/17 16:00 87 09/08/17 14:00 87 09/08/17 14:00 Nasal Cannula 2.00 21 09/08/17 12:00 87 09/08/17 12:00 Nasal Cannula 2.00 21 09/08/17 12:00 98.3 97 24 189/75 (113) 09/08/17 11:22 16 09/08/17 10:00 Nasal Cannula 2.00 21 09/08/17 10:00 87 09/08/17 08:00 Nasal Cannula 2.00 21 09/08/17 08:00 98.5 95 15 163/78 (106) 98 09/08/17 08:00 87 09/08/17 07:15 99 Nasal Cannula 2.00 09/08/17 06:00 96 Nasal Cannula 2.00 09/08/17 06:00 98 09/08/17 04:00 97 09/08/17 04:00 99.0 97 23 153/77 (102) 100 09/08/17 04:00 96 Nasal Cannula 2.00 09/08/17 02:00 96 Nasal Cannula 2.00 09/08/17 02:00 92 09/08/17 00:00 97 09/08/17 00:00 96 Nasal Cannula 2.00 09/08/17 00:00 99.3 97 18 136/74 (94) 92 09/07/17 22:00 95 Nasal Cannula 2.00 09/07/17 22:00 92 09/07/17 21:53 92 21 09/07/17 20:00 97 09/07/17 20:00 96 Nasal Cannula 2.00 09/07/17 20:00 100.3 97 21 140/65 (90) 99 I/O 09/07/17 09/07/17 09/07/17 09/08/1717 11/30/17 07:00 15:00 23:00 07:00 15:00 23:00 Intake Total 1634.8 ml 773 ml 2282 ml 550 ml 1610 ml Output Total 4000 ml 0 ml 0 ml Balance 1634.8 ml -3227 ml 2282 ml 550 ml 1610 ml Intake Oral 480 ml 500 ml 550 ml 360 ml IV Total 1154.8 ml 773 ml 1782 ml 1250 ml Output Urine Total 0 ml 0 ml Hemodialysis 4000 ml # Voids 0 0 # Bowel Movements 0 1 Result Diagram: 09/08/17 0549 09/07/17 0627 Imaging Last Impressions Upper Extremity Ultrasound 09/06/17 0000 Signed Impressions: Service Date/Time: Wednesday, September 06, 2017 20:32 - CONCLUSION: 1. Nonocclusive superficial thrombus in the left cephalic vein. No deep venous thrombosis. Hayden Turcios MD Upper Extremity CT 09/02/17 1505 Signed Impressions: Service Date/Time: Saturday, September 02, 2017 17:09 - CONCLUSION: Very impressive soft tissue edema across the forearm. There is fluid between the fascia and the subcutaneous fat. Ehsan Archibald MD Chest X-Ray 09/02/17 0000 Signed Impressions: Service Date/Time: Saturday, September 02, 2017 16:00 - CONCLUSION: Stable mild diffuse vascular prominence similar to previous study. Small amounts of air space disease both lung bases left greater than right unchanged. Ehsan Archibald MD Abdomen MRI 08/31/17 0000 Signed Impressions: Service Date/Time: Thursday, August 31, 2017 15:40 - CONCLUSION: 1. Very limited study due to breathing motion artifact which and lack of IV contrast. 2. Atrophic kidneys with multiple tiny cortical cysts. 3. The pancreatic duct is just out of the range of normal measuring 4 mm in diameter. I'm not able to clearly identify an obstructing mass or stone on this limited study. Consideration could be made to a pancreatic protocol CT scan which is less susceptible to motion artifact. Narendra Barreto Jr., MD Abdomen Ultrasound 08/26/17 0000 Signed Impressions: Service Date/Time: Saturday, August 26, 2017 08:06 - CONCLUSION: 1. Kidneys are echogenic which can be seen with medical renal disease. 2. Cholelithiasis. 3. Mild prominence of the main pancreatic duct. Devyn Hickey MD Central Venous Line 08/25/17 0000 Signed Impressions: Service Date/Time: August 14:47 - CONCLUSION: Uncomplicated line placement as above. Tavares Ventura MD Objective Remarks GENERAL: NAD, A&Ox3 HEAD: Normocephalic. NECK: Supple, trachea midline. No lymphadenopathy. EYES: No scleral icterus. No injection or drainage. CARDIOVASCULAR: Regular rate and rhythm without murmurs, gallops, or rubs. RESPIRATORY: Breath sounds equal bilaterally. No accessory muscle use. GASTROINTESTINAL: Abdomen soft, non-tender, nondistended. MUSCULOSKELETAL: No cyanosis. History bilateral [id number] amputation's. Right second/third finger amputations. Left arm edema, induration, tenderness to palpation. SKIN: Warm and dry. Scars of right forearm NEURO: No focal neurological deficitis. PSYCH: Slightly flattened affect. Procedures EGD PROCEDURE REPORT EXAM DATE: 08/13/2017 INDICATIONS: The patient is a 46 yr old male here for an EGD due to melena PROCEDURE PERFORMED: EGD w/ band ligation of varices MEDICATIONS: None and Per Anesthesia. TOPICAL ANESTHETIC: none CONSENT: The patient understands the risks and benefits of the procedure and understands that these risks include, but are not limited to: sedation, allergic reaction, infection, perforation and/or bleeding. Alternative means of evaluation and treatment include, among others: physical exam, x-rays, and/or surgical intervention. The patient elects to proceed with this endoscopic procedure. medical equipment was checked for proper function. Hand hygiene and appropriate measures for infection prevention was taken. After the risks, benefits and alternatives of the procedure were thoroughly explained, Informed consent was verified, confirmed and timeout was successfully executed by the treatment team. The patient was anesthetized with topical anesthesia and the Pentax [id number] endoscope was introduced through the mouth and advanced to the second portion of the duodenum. Retroflexion was performed and was normal The gastroscope was then slowly withdrawn and removed. ESOPHAGUS: There were large varices in the middle third of the esophagus and lower third esophagus. The varices were bleeding intermittently with spurting spot , 6 bands applied and bleeding controlled. STOMACH: There was severe and erosive gastritis in the entire examined stomach. DUODENUM: Multiple large shallow erosions were found in the duodenal bulb and 2nd part duodenum. ADVERSE EVENTS: There were no complications. IMPRESSIONS: 1. Bleeding Esophageal varices, with active bleeding identified, 6 bands applied to controll the bleeding 2. There was gastritis in the entire examined stomach 3. Multiple large erosions were found in the duodenal bulb and 2nd part duodenum RECOMMENDATIONS: Continue PPI , start Octreotide, PATIENT CONDITION: stable DISPOSITION: Observation REPEAT EXAM: Return 4 weeks EGD Chon Rodriguez MD 08/13/2017 1:38 PM Medications and IVs Current Medications Medications (Trade) Dose Ordered Sig/Nohelia Route Start Time Stop Time Status Last Admin (NS Flush) 2 ml UNSCH PRN IV FLUSH 08/12/17 11:45 08/31/17 14:50 (NS Flush) 2 ml BID IV FLUSH 08/12/17 21:00 09/07/17 20:27 (Tylenol) 650 mg Q6H PRN PO 08/12/17 11:45 08/29/17 18:25 (Zofran Inj) 4 mg Q6H PRN IV PUSH 08/12/17 11:45 08/15/17 13:52 (Albuterol Neb) 2.5 mg Q2HR NEB PRN INH 08/12/17 11:45 Miscellaneous Information 1 Q361D XX 08/12/17 11:45 (Angelika-Colace) 1 tab BID PO 08/12/17 21:00 09/08/17 09:40 (Milk Of Magnesia Liq) 30 ml Q12H PRN PO 08/12/17 11:45 (Senokot) 17.2 mg Q12H PRN PO 08/12/17 11:45 08/27/17 13:22 (Dulcolax Supp) 10 mg DAILY PRN RECTAL 08/12/17 11:45 (Lactulose Liq) 30 ml DAILY PRN PO 08/12/17 11:45 (Proamatine) 10 mg TID@,, PO 08/12/17 12:00 09/08/17 05:24 (Xanax) 1 mg Q8H PRN PO 08/12/17 12:00 09/02/17 20:53 (Brethine Inj) 1 mg UNSCH PRN SQ 08/12/17 12:00 08/13/17 03:13 (Phoslo) 1,334 mg TID PO 08/15/17 13:00 09/08/17 09:39 (Epogen Inj) 10,000 units UNSCH PRN IV PUSH 08/16/17 10:15 09/07/17 10:35 (Protonix) 40 mg Q12HR PO 08/18/17 21:00 09/08/17 09:40 (D50w (Vial) Inj) 50 ml UNSCH PRN IV PUSH 08/22/17 08:30 09/05/17 16:31 (Glucagon Inj) 1 mg STAT PRN IM 08/22/17 08:30 Heparin Sodium/ Dextrose 250 ml @ 14 mls/hr TITRATE PRN IV 08/24/17 17:00 09/08/17 14:30 ([place] 5-325 Mg) 1 tab Q4H PRN PO 08/24/17 17:00 09/07/17 23:54 ([place] 10-325 Mg) 1 tab Q4H PRN PO 08/24/17 17:00 09/08/17 10:22 (NS Flush) DAILY IV FLUSH 08/26/17 09:00 09/07/17 08:18 (NS Flush) UNSCH PRN IV FLUSH 08/25/17 14:45 (Cortef) 10 mg DAILY PO 08/27/17 09:00 09/08/17 09:40 (Claritin) 10 mg HS PO 08/28/17 21:00 09/07/17 20:55 (Miralax) 17 gm DAILY PO 09/04/17 10:00 09/08/17 09:40 Dextrose 1,000 ml @ 90 mls/hr Q11H7M IV 09/07/17 12:00 09/08/17 18:45 (Deltasone) 50 mg ONCE ONCE PO 09/08/17 21:00 09/08/17 21:01 (Deltasone) 50 mg ONCE ONCE PO 09/09/17 03:00 09/09/17 03:01 (Deltasone) 50 mg ONCE ONCE PO 09/09/17 09:00 09/09/17 09:01 (Benadryl) 50 mg ONCE ONCE PO 09/09/17 09:00 09/09/17 09:01 Sodium Chloride 1,000 ml @ 0 mls/hr Q0M PRN OTHER 09/08/17 18:51 Sodium Chloride 1,000 ml @ 200 mls/hr Q5H PRN IV 09/08/17 18:51 Sodium Chloride 1,000 ml @ 0 mls/hr Q0M PRN OTHER 09/08/17 18:51 (Mannitol Inj) 12.5 gm UNSCH PRN IV 09/08/17 19:00 Albumin Human 100 ml @ 60 mls/hr UNSCH PRN IV 09/08/17 19:00 (NS Flush) 5 ml UNSCH PRN IV FLUSH 09/08/17 19:00 (Heparin Inj) UNSCH PRN .XX 09/08/17 19:00 (Gentamicin (Dialysis) Inj) 20 mg UNSCH PRN OTHER 09/08/17 19:00 (Zofran Inj) 4 mg UNSCH PRN IV PUSH 09/08/17 19:00 (Tylenol) 650 mg UNSCH PRN PO 09/08/17 19:00 (Benadryl) 25 mg UNSCH PRN PO 09/08/17 19:00 (Nitrostat Sl) 0.4 mg UNSCH PRN SL 09/08/17 19:00 (Catapres) 0.1 mg UNSCH PRN PO 09/08/17 19:00 (Gelfoam 12 Mm/7 Mm Top) 1 foam UNSCH PRN TOP 09/08/17 19:00 A/P Problem List: (1) Elevated lactic acid level ICD Code: E87.2 - Acidosis Status: Acute (2) HYPOTENSION OF HEMODIALYSIS ICD Code: I95.3 - HYPOTENSION OF HEMODIALYSIS Status: Resolved (3) Fever ICD Code: R50.9 - Fever, unspecified Status: Resolved (4) ESRD (end stage renal disease) on dialysis ICD Code: N18.6 - End stage renal disease; Z99.2 - Dependence on renal dialysis Status: Chronic (5) Lupus (systemic lupus erythematosus) ICD Code: M32.9 - Systemic lupus erythematosus, unspecified (6) Hypoglycemia ICD Code: E16.2 - Hypoglycemia, unspecified (7) Anemia ICD Code: D64.9 - Anemia, unspecified Status: Acute (8) Chronic anticoagulation ICD Code: Z79.01 - intermediate (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 of anticoagulants (9) H/O hypercoagulable state ICD Code: Z86.2 - Personal history of diseases of the blood and blood-forming organs and certain disorders involving the immune mechanism (10) Elevated glucose ICD Code: R73.09 - Other abnormal glucose (11) Hypoalbuminemia ICD Code: E88.09 - Other disorders of plasma-protein metabolism, not elsewhere classified (12) Thrombocytopenia ICD Code: D69.6 - Thrombocytopenia, unspecified (13) Elevated AST (SGOT) ICD Code: R74.0 - Nonspecific elevation of levels of transaminase and lactic acid dehydrogenase [LDH] (14) Macrocytic anemia ICD Code: D53.9 - Nutritional anemia, unspecified (15) Severe sepsis ICD Code: A41.9 - Sepsis, unspecified organism; R65.20 - Severe sepsis without septic shock (16) History of DVT (deep vein thrombosis) ICD Code: Z86.718 - Personal history of other venous thrombosis and embolism (17) History of pulmonary embolism ICD Code: Z86.711 - Personal history of pulmonary embolism (18) Gastroesophageal reflux disease ICD Code: K21.9 - Gastro-esophageal reflux disease without esophagitis (19) Coronary artery disease ICD Code: I25.10 - Atherosclerotic heart disease of [place] coronary artery without angina pectoris (20) 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 Admitted secondary to severe sepsis related to pneumonia. Discharge has been on hold secondary to hypoglycemia. Right hand Accu-Chek show hypoglycemia prior to lunch dosing. Discharge held. Insulin studies show elevations. Insulinoma workup ongoing. MRI pending. No occlusive thrombus left upper extremity. He has small clots in this arm which is chronic for him. He is on heparin drip at this point. Deferring resumption of Coumadin for possible need of surgery for insulinoma. If no evidence of insulinoma on MRI consider transfer for endocrinology evaluation and management. Central line placement on 08/25/17. Hypoglycemia Not yet improved, chronic problem. May be related to depleted glycogen stores vs s/t renal disease or insulinoma. MRI of abdomen and pelvis with motion artifact, so study was inconclusive. Pt with contrast allergy and ESRD, so CT pancreatic protocol cannot be done. - Started and being treated with D10. - Will look into transferring the pt to facility with endocrinology department. clinical case manager assistance appreciated. [facility] accepted pt. Awaiting availability of an ICU bed. 09/06 Hypoglycemia seems to be stable. Will decrease rate of IV fluids D10 down to 100 ml/hr from 125 ml/hr. 09/07 Blood sugars stable, continue D10 - rate decreased to 90 ml/hr. LUE edema May be s/t cellulitis. Tender to palpation. US showed: Small amount of nonocclusive thrombus in the cephalic vein, otherwise unremarkable study. CT scan with significant edema and fluid between the fascia and subcutaneous fat. - keep arm elevated. - antibiotics per ID. Acute respiratory failure Required NRB at 100% 09/02. Repeat chest x-ray and ABG were stable. Currently breathing comfortably. O2 saturation level may have been erroneously low secondary to peripheral vascular disease. - oxygen as needed. - monitor in ICU. Stable. Sinus tachycardia A fib with RVR reported on EKG. EKG appears to actually showed sinus tach with PVCs. Currently appears to be in sinus rhythm on telemetry. Repeat EKG confirms sinus rhythm. - DC diltiazem. Resume as needed. - telemetry. Anxiety disorder NOS/ Acute toxic metabolic encephalopathy Stable. - Continue as needed alprazolam. Severe sepsis/ History of bacteremia Resolved. Tunneled vas cath removed 08/12. - Will continue vancomycin and Diflucan for now per ID. Cultures remain negative. Coronary artery disease status post stent/ PAD/ Chronic hypotension related to dialysis Clinically asymptomatic. - Continue midodrine. Gastroesophageal reflux disease The pt had bleeding Esophageal varices s/p banding. Also noted was gastritis and multiple large erosions in the duodenal bulb and 2nd part of the duodenum. - Continue Protonix BID. - GI follow-up as an outpatient - holding Coumadin. On heparin gtt. End-stage renal disease/ Lupus nephritis/ Hyperphosphatemia The pt is on hemodialysis Tuesday/Tuesday and Tuesday per nephrology. - Continue sevelamer 1600 mg 3 times a day for hyperphosphatemia. - dialysis as per pnephrology Macrocytic anemia/ Anemia of chronic kidney disease/ Acute blood loss anemia/ Thrombocytopenia/ Hypercoagulable state Stable. - Coumadin on hold for now (this had been on hold secondary to GI bleed). Continue heparin drip. - Lifelong anticoagulation. History bilateral [id number]-icr-[id number] amputation's/ Right second/third finger amputation - continue supportive care - Physical/ occupational therapy. Constipation Ongoing. - Continue Miralax and lactulose. Dulcolax supp if needed. Uncontrolled HTN 09/08 Systolic blood pressure severely elevated with an sbp in the 180's. Will start amlodipine 10 mg po daily, first dose now. Blurry Vision Right eye 09/08 Possibly due to uncontrolled hypertension. Consult ophthalmology if it does not resolve with blood pressure control DVT prophylaxis Coumadin on hold due to active bleeding. Resume Coumadin when stabilized. Heparin gtt. Discharge Planning Transfer to [facility] when bed is available. Problem Qualifiers (1) Fever: Qualified Codes: R50.9 - Fever, unspecified (2) Lupus (systemic lupus erythematosus): Qualified Codes: M32.15 - Tubulo-interstitial nephropathy in systemic lupus erythematosus (3) Anemia: Qualified Codes: N18.6 - End stage renal disease; D63.1 - Anemia in chronic kidney disease; Z99.2 - Dependence on renal dialysis (4) Gastroesophageal reflux disease: Qualified Codes: K21.9 - Gastro-esophageal reflux disease without esophagitis (5) Coronary artery disease: Qualified Codes: I25.10 - Atherosclerotic heart disease of [place] coronary artery without angina pectoris Sammy De León MD Sep 08, 2017 19:14
[2017-09-08] MEDS ORDERED: hydrALAZINE HCL 20 MG/ML VIAL IV PUSH PRN (20:15)
[2017-09-08] MEDS: LORATADINE 10 MG TAB PO SCH (20:15)
[2017-09-08 20:46] LABS: APTT (PATIENT) 29.4 SEC (24.3-30.1)
[2017-09-08] MEDS ORDERED: predniSONE 50 MG TAB PO ONE (21:00)
[2017-09-09] VITALS (13 sets, daily range): BP systolic 92–131; BP diastolic 52–60; PULSE 68–103; RESP 17–24; TEMP 98–99.2; O2SAT 95–100
[2017-09-09] MEDS ORDERED: predniSONE 50 MG TAB PO ONE ×2 (03:00→09:00)
[2017-09-09 04:13] LABS: HEMATOCRIT 24.5 % (39.0-51.0); MEAN CELL VOLUME 90.5 FL (80.0-100.0); MEAN CORPUSCULAR HEMOGLOBIN 29.5 PG (27.0-34.0); MEAN CORPUSCULAR HGB CONC 32.6 % (32.0-36.0); PLATELET COUNT 192 TH/MM3 (150-450); REVIEW FLAG FINAL
[2017-09-09 04:28] LABS: APTT (PATIENT) 81.5 SEC (24.3-30.1)
[2017-09-09 04:44] LABS: BICARBONATE 28.9 MEQ/L (21.0-32.0); MAGNESIUM 1.7 MG/DL (1.5-2.5); POTASSIUM 4.4 MEQ/L (3.5-5.1)
[2017-09-09] MEDS: DEXTROSE 10% INJ 1,000 ML IV SCH ×2 (08:09→23:16)
[2017-09-09] MEDS: CALCIUM ACETATE 667 MG CAP PO SCH ×3 (09:00→18:00)
[2017-09-09] MEDS ORDERED: diphenhydrAMINE HCL 50 MG CAP PO ONE (09:00)
[2017-09-09] MEDS: SODIUM CHLORIDE 0.9% FLUSH 10 ML FLUSH IV FLUSH SCH ×3 (09:00→20:04)
[2017-09-09] MEDS: POLYETHYLENE GLYCOL 17 GM PKG PO SCH (09:00)
[2017-09-09] MEDS: DOCUSATE SODIUM 50 MG/SENNA 8.6 MG TAB PO SCH ×2 (09:00→20:04)
--- NOTE | 2017-09-09 09:05 | PD.PN.STU ---
Subjective Remarks Found lying comfortably in bed. Blurry vision and headache have both resolved. Complains of SOB, but notes that he is due for dialysis today and usually feels better after treatment. Denies chest pain, nausea, vomiting, constipation, or diarrhea. Last BM was yesterday. Elevated BP has resolved, 127/59 Objective Vitals Vital Signs Date Time Temp Pulse Resp B/P (MAP) Pulse Ox O2 Delivery O2 Flow Rate FiO2 09/09/17 06:00 96 Nasal Cannula 2.00 09/09/17 06:00 81 09/09/17 04:00 98.6 83 17 127/59 (81) 97 09/09/17 04:00 96 Nasal Cannula 2.00 09/09/17 04:00 83 09/09/17 02:00 80 09/09/17 02:00 95 Nasal Cannula 2.00 09/09/17 00:00 99.1 88 18 124/53 (76) 99 09/09/17 00:00 88 09/09/17 00:00 95 Nasal Cannula 2.00 09/08/17 22:00 90 09/08/17 22:00 96 Nasal Cannula 2.00 09/08/17 20:00 105 09/08/17 20:00 99.0 105 20 179/90 (119) 97 09/08/17 20:00 96 Nasal Cannula 2.00 09/08/17 18:00 Nasal Cannula 2.00 21 09/08/17 18:00 87 09/08/17 16:00 Nasal Cannula 2.00 21 09/08/17 16:00 99.2 94 17 177/77 (110) 95 09/08/17 16:00 87 09/08/17 14:00 87 09/08/17 14:00 Nasal Cannula 2.00 21 09/08/17 12:00 87 09/08/17 12:00 Nasal Cannula 2.00 21 09/08/17 12:00 98.3 97 24 189/75 (113) 09/08/17 11:22 16 09/08/17 10:00 Nasal Cannula 2.00 21 09/08/17 10:00 87 I/O 09/08/17 09/08/17 09/08/17 09/09/17 09/09/17 09/09/17 07:00 15:00 23:00 07:00 15:00 23:00 Intake Total 550 ml 1610 ml Output Total 0 ml 0 ml 0 ml Balance 550 ml 1610 ml 0 ml Intake Oral 550 ml 360 ml IV Total 1250 ml Output Urine Total 0 ml 0 ml 0 ml Result Diagram: 09/09/1729909/09/17299 Objective Remarks GENERAL: -[place] male found lying comfortably in bed, in no apparent distress. Awake, alert, oriented x3. HEAD: Normocephalic. NECK: Supple, trachea midline. No lymphadenopathy. EYES: No scleral icterus. No injection or drainage. CARDIOVASCULAR: Regular rate and rhythm without murmurs, gallops, or rubs. RESPIRATORY: Breath sounds equal bilaterally. No accessory muscle use. GASTROINTESTINAL: Abdomen soft, non-tender, nondistended. MUSCULOSKELETAL: No cyanosis. History bilateral [id number] amputation's. Right second/third finger amputations. Left arm edema, induration, tenderness to palpation. SKIN: Warm and dry. Diffusely scalded skin throughout all extremities. NEURO: No focal neurological deficits. PSYCH: Pleasant and cooperative. A/P Assessment and Plan 47-year-old male with chronic renal failure secondary to lupus. Admitted secondary to severe sepsis related to pneumonia. Discharge has been on hold secondary to hypoglycemia. Right hand Accu-Chek show hypoglycemia prior to lunch dosing. Discharge held. Insulin studies show elevations. Insulinoma workup ongoing. MRI pending. No occlusive thrombus left upper extremity. He has small clots in this arm which is chronic for him. He is on heparin drip at this point. Deferring resumption of Coumadin for possible need of surgery for insulinoma. If no evidence of insulinoma on MRI consider transfer for endocrinology evaluation and management. Central line placement on 08/25/17. Hypoglycemia Not yet improved, chronic problem. May be related to depleted glycogen stores vs s/t renal disease or insulinoma. MRI of abdomen and pelvis with motion artifact, so study was inconclusive. Pt with contrast allergy and ESRD, so CT pancreatic protocol cannot be done. - Started and being treated with D10. - Will look into transferring the pt to facility with endocrinology department. manager aviation assistance appreciated. [facility] accepted pt. Awaiting availability of an ICU bed. 09/06 Hypoglycemia seems to be stable. Will decrease rate of IV fluids D10 down to 100 ml/hr from 125 ml/hr. 11/29 Blood sugars stable, continue D10 - rate decreased to 90 ml/hr. LUE edema May be s/t cellulitis. Tender to palpation. US showed: Small amount of nonocclusive thrombus in the cephalic vein, otherwise unremarkable study. CT scan with significant edema and fluid between the fascia and subcutaneous fat. - keep arm elevated. - antibiotics per ID. Acute respiratory failure Required NRB at 100% 09/02. Repeat chest x-ray and ABG were stable. Currently breathing comfortably. O2 saturation level may have been erroneously low secondary to peripheral vascular disease. - oxygen as needed. - monitor in ICU. Stable. Sinus tachycardia A fib with RVR reported on EKG. EKG appears to actually showed sinus tach with PVCs. Currently appears to be in sinus rhythm on telemetry. Repeat EKG confirms sinus rhythm. - DC diltiazem. Resume as needed. - telemetry. Anxiety disorder NOS/ Acute toxic metabolic encephalopathy Stable. - Continue as needed alprazolam. Severe sepsis/ History of bacteremia Resolved. Tunneled vas cath removed 08/12. - Will continue vancomycin and Diflucan for now per ID. Cultures remain negative. Coronary artery disease status post stent/ PAD/ Chronic hypotension related to dialysis Clinically asymptomatic. - Continue midodrine. Gastroesophageal reflux disease The pt had bleeding Esophageal varices s/p banding. Also noted was gastritis and multiple large erosions in the duodenal bulb and 2nd part of the duodenum. - Continue Protonix BID. - GI follow-up as an outpatient - holding Coumadin. On heparin gtt. End-stage renal disease/ Lupus nephritis/ Hyperphosphatemia The pt is on hemodialysis Tuesday/Tuesday and Tuesday per nephrology. - Continue sevelamer 1600 mg 3 times a day for hyperphosphatemia. - dialysis as per pnephrology Macrocytic anemia/ Anemia of chronic kidney disease/ Acute blood loss anemia/ Thrombocytopenia/ Hypercoagulable state Stable. - Coumadin on hold for now (this had been on hold secondary to GI bleed). Continue heparin drip. - Lifelong anticoagulation. History bilateral ashhb-zra-zlef amputation's/ Right second/third finger amputation - continue supportive care - Physical/ occupational therapy. Constipation Ongoing. - Continue Miralax and lactulose. Dulcolax supp if needed. Uncontrolled HTN 09/08 Systolic blood pressure severely elevated with an sbp in the 180's. Will start amlodipine 10 mg po daily, first dose now. Blurry Vision Right eye 09/08 Possibly due to uncontrolled hypertension. Consult ophthalmology if it does not resolve with blood pressure control DVT prophylaxis Coumadin on hold due to active bleeding. Resume Coumadin when stabilized. Heparin gtt. Discharge Planning Transfer to [facility] when bed is available. Nesha Shoemaker Sep 09, 2017 09:05
[2017-09-09] MEDS: HYDROCORTISONE 10 MG TAB PO SCH (09:25)
[2017-09-09] MEDS: PANTOPRAZOLE SOD 40 MG DELAYED RELEASE TAB PO SCH ×2 (09:26→20:04)
--- NOTE | 2017-09-09 14:11 | HHI.IDPN ---
Subjective Subjective Remarks Patient is a 46-year-old male, presented to the hospital for further evaluation of hypotension. He has known end-stage renal disease, and gets hemodialysis every Tuesday and Tuesday. He was in the dialysis clinic and he was found to be febrile, hypotensive, and tachycardic. He completed his treatment, and he was advised to go to the hospital for further evaluation and treatment. Patient currently has been having fevers since his been in the emergency room. He is also complaining of being sick to his stomach, and has had some nausea. Denies any abdominal pain. He denies any respiratory complaint. Patient has known central venous occlusion, and the only patent venous access for dialysis has been in his left femoral groin. During his last admission in June, he was treated for staph epidermides and Bryon proptosis sepsis. He was supposed to complete treatment till July 11. The catheter was exchanged during that admission. Patient has a right upper extremity AV fistula, and it was evaluated by the vascular surgeon when he was discharged from the hospital, and the last 3 dialysis, his AV fistula has been used. Patient also during his last admission had problem with hypoglycemia and his workup was negative at that time. Infectious disease consultation has been requested to evaluate the patient. Initial evaluation, patient was treated for sepsis due to the permacath. The permacath was removed Culture from the permacath showed yeast and corynebacterium. He completed Diflucan and Vanco. Notes reviewed D/W RN Celia ok Having HD Remains on D10 for hypoglycemia Waiting for bed at [facility] Not SOB BP ok Has central line L groin placed 08/25 No compliant with LUE elevation US shows non occlusive thrombus in superficial cephalic; has flow in axillary, IJ and subclavian Antibiotics Current Medications Medications (Trade) Dose Ordered Sig/Nohelia Route Start Time Stop Time Status Last Admin (NS Flush) 2 ml UNSCH PRN IV FLUSH 08/12/17 11:45 08/31/17 14:50 (NS Flush) 2 ml BID IV FLUSH 08/12/17 21:00 09/08/17 20:16 (Tylenol) 650 mg Q6H PRN PO 08/12/17 11:45 08/29/17 18:25 (Zofran Inj) 4 mg Q6H PRN IV PUSH 08/12/17 11:45 08/15/17 13:52 (Albuterol Neb) 2.5 mg Q2HR NEB PRN INH 08/12/17 11:45 Miscellaneous Information 1 Q361D XX 08/12/17 11:45 (Angelika-Colace) 1 tab BID PO 08/12/17 21:00 09/08/17 09:40 (Milk Of Magnesia Liq) 30 ml Q12H PRN PO 08/12/17 11:45 (Senokot) 17.2 mg Q12H PRN PO 08/12/17 11:45 08/27/17 13:22 (Dulcolax Supp) 10 mg DAILY PRN RECTAL 08/12/17 11:45 (Lactulose Liq) 30 ml DAILY PRN PO 08/12/17 11:45 (Proamatine) 10 mg TID@,,17 PO 08/12/17 12:00 Future Hold 09/08/17 05:24 (Xanax) 1 mg Q8H PRN PO 08/12/17 12:00 09/02/17 20:53 (Brethine Inj) 1 mg UNSCH PRN SQ 08/12/17 12:00 08/13/17 03:13 (Phoslo) 1,334 mg TID PO 08/15/17 13:00 09/09/17 13:43 (Epogen Inj) 10,000 units UNSCH PRN IV PUSH 08/16/17 10:15 09/07/17 10:35 (Protonix) 40 mg Q12HR PO 08/18/17 21:00 09/09/17 09:26 (D50w (Vial) Inj) 50 ml UNSCH PRN IV PUSH 08/22/17 08:30 09/05/17 16:31 (Glucagon Inj) 1 mg STAT PRN IM 08/22/17 08:30 Heparin Sodium/ Dextrose 250 ml @ 14 mls/hr TITRATE PRN IV 08/24/17 17:00 09/08/17 14:30 (Upperco 5-325 Mg) 1 tab Q4H PRN PO 08/24/17 17:00 09/07/17 23:54 (Upperco 10-325 Mg) 1 tab Q4H PRN PO 08/24/17 17:00 09/08/17 10:22 (NS Flush) DAILY IV FLUSH 08/26/17 09:00 09/07/17 08:18 (NS Flush) UNSCH PRN IV FLUSH 08/25/17 14:45 (Cortef) 10 mg DAILY PO 08/27/17 09:00 09/09/17 09:25 (Claritin) 10 mg HS PO 08/28/17 21:00 09/08/17 20:15 (Miralax) 17 gm DAILY PO 09/04/17 10:00 09/08/17 09:40 Dextrose 1,000 ml @ 70 mls/hr [id number] IV 09/07/17 12:00 09/09/17 08:09 Sodium Chloride 1,000 ml @ 0 mls/hr Q0M PRN OTHER 09/08/17 18:51 Sodium Chloride 1,000 ml @ 200 mls/hr Q5H PRN IV 09/08/17 18:51 Sodium Chloride 1,000 ml @ 0 mls/hr Q0M PRN OTHER 09/08/17 18:51 (Mannitol Inj) 12.5 gm UNSCH PRN IV 09/08/17 19:00 Albumin Human 100 ml @ 60 mls/hr UNSCH PRN IV 09/08/17 19:00 (NS Flush) 5 ml UNSCH PRN IV FLUSH 09/08/17 19:00 (Heparin Inj) UNSCH PRN .XX 09/08/17 19:00 (Gentamicin (Dialysis) Inj) 20 mg UNSCH PRN OTHER 09/08/17 19:00 (Zofran Inj) 4 mg UNSCH PRN IV PUSH 09/08/17 19:00 (Tylenol) 650 mg UNSCH PRN PO 09/08/17 19:00 (Benadryl) 25 mg UNSCH PRN PO 09/08/17 19:00 (Nitrostat Sl) 0.4 mg UNSCH PRN SL 09/08/17 19:00 (Catapres) 0.1 mg UNSCH PRN PO 09/08/17 19:00 (Gelfoam 12 Mm/7 Mm Top) 1 foam UNSCH PRN TOP 09/08/17 19:00 (Norvasc) 10 mg DAILY PO 09/09/17 09:00 (Apresoline Inj) 10 mg Q30M PRN IV PUSH 09/08/17 20:15 Lines L groin TLC - 08/25 Past Medical History Reviewed Allergies: Coded Allergies: iodine (Unverified Allergy, Severe, blisters, 08/12/17) morphine (Unverified Allergy, Severe, Itching, 08/12/17) potassium iodide (Unverified Allergy, Severe, blisters, 08/12/17) povidone-iodine (Unverified Allergy, Severe, blisters, 08/12/17) sodium iodide (Unverified Allergy, Severe, blisters, 08/12/17) sodium iodide (Unverified Allergy, Severe, blisters, 08/12/17) Objective . Vital Signs Date Time Temp Pulse Resp B/P (MAP) Pulse Ox O2 Delivery O2 Flow Rate FiO2 09/09/17 08:00 98.5 85 24 131/60 (83) 96 09/09/17 06:00 96 Nasal Cannula 2.00 09/09/17 06:00 81 09/09/17 04:00 98.6 83 17 127/59 (81) 97 09/09/17 04:00 96 Nasal Cannula 2.00 09/09/17 04:00 83 09/09/17 02:00 80 09/09/17 02:00 95 Nasal Cannula 2.00 09/09/17 00:00 99.1 88 18 124/53 (76) 99 09/09/17 00:00 88 09/09/17 00:00 95 Nasal Cannula 2.00 09/08/17 22:00 90 09/08/17 22:00 96 Nasal Cannula 2.00 09/08/17 20:00 105 09/08/17 20:00 99.0 105 20 179/90 (119) 97 09/08/17 20:00 96 Nasal Cannula 2.00 09/08/17 18:00 Nasal Cannula 2.00 21 09/08/17 18:00 87 09/08/17 16:00 Nasal Cannula 2.00 21 09/08/17 16:00 99.2 94 17 177/77 (110) 95 09/08/17 16:00 87 . Laboratory Tests Test 09/08/17 05:49 09/09/17 03:00 White Blood Count 7.8 TH/MM3 8.0 TH/MM3 Red Blood Count 2.94 MIL/MM3 2.70 MIL/MM3 Hemoglobin 8.8 GM/DL 8.0 GM/DL Hematocrit 27.2 % 24.5 % Mean Corpuscular Volume 92.6 FL 90.5 FL Mean Corpuscular Hemoglobin 30.0 PG 29.5 PG Mean Corpuscular Hemoglobin Concent 32.4 % 32.6 % Red Cell Distribution Width 21.4 % 21.0 % Platelet Count 161 TH/MM3 192 TH/MM3 Mean Platelet Volume 8.3 FL 8.6 FL Laboratory Tests Test 09/09/17 03:00 Blood Urea Nitrogen 29 MG/DL Creatinine 7.68 MG/DL Random Glucose 103 MG/DL Albumin 2.4 GM/DL Calcium Level 8.7 MG/DL Phosphorus Level 4.3 MG/DL Magnesium Level 1.7 MG/DL Sodium Level 126 MEQ/L Potassium Level 4.4 MEQ/L Chloride Level 86 MEQ/L Carbon Dioxide Level 28.9 MEQ/L Anion Gap 11 MEQ/L Estimat Glomerular Filtration Rate 9 ML/MIN Imaging RADIOLOGY STUDIES/FILMS REVIEWED Upper Extremity Ultrasound 09/06/17 0000 Signed Impressions: Service Date/Time: Wednesday, September 06, 2017 20:32 - CONCLUSION: 1. Nonocclusive superficial thrombus in the left cephalic vein. No deep venous thrombosis. Hayden Turcios MD Upper Extremity CT 09/02/17 1505 Signed Impressions: Service Date/Time: Saturday, September 02, 2017 17:09 - CONCLUSION: Very impressive soft tissue edema across the forearm. There is fluid between the fascia and the subcutaneous fat. Ehsan Archibald MD Chest X-Ray 09/02/17 0000 Signed Impressions: Service Date/Time: Saturday, September 02, 2017 16:00 - CONCLUSION: Stable mild diffuse vascular prominence similar to previous study. Small amounts of air space disease both lung bases left greater than right unchanged. Ehsan Archibald MD Abdomen MRI 08/31/17 0000 Signed Impressions: Service Date/Time: Thursday, August 31, 2017 15:40 - CONCLUSION: 1. Very limited study due to breathing motion artifact which and lack of IV contrast. 2. Atrophic kidneys with multiple tiny cortical cysts. 3. The pancreatic duct is just out of the range of normal measuring 4 mm in diameter. I'm not able to clearly identify an obstructing mass or stone on this limited study. Consideration could be made to a pancreatic protocol CT scan which is less susceptible to motion artifact. Narendra Barreto Jr., MD Abdomen Ultrasound 08/26/17 0000 Signed Impressions: Service Date/Time: Saturday, August 26, 2017 08:06 - CONCLUSION: 1. Kidneys are echogenic which can be seen with medical renal disease. 2. Cholelithiasis. 3. Mild prominence of the main pancreatic duct. Devyn Hickey MD Central Venous Line 08/25/17 0000 Signed Impressions: Service Date/Time: August 14:47 - CONCLUSION: Uncomplicated line placement as above. Tavares Ventura MD Chest X-Ray 08/12/17 0910 Signed Impressions: Service Date/Time: Saturday, August 12, 2017 09:25 - CONCLUSION: 1. Stable scattered patchiness bilaterally. Chon Nye MD Central Venous Line 08/12/17 0000 Signed Impressions: Service Date/Time: Saturday, August 12, 2017 00:00 - CONCLUSION: Uncomplicated Permcath removal. Shmuel Beckett MD Physical Exam GENERAL: awake and alert, NAD SKIN: Warm and very dry. No generalized rash HEAD: Atraumatic. Normocephalic. No temporal wasting, or tenderness. EYES: Lovell conjunctiva. No petechia or hemorrhage. Pupils equal, round and reactive to light. Extraocular movements full and intact. No scleral icterus. EARS, NOSE AND THROAT: Nose without bleeding or purulent nasal discharge. Mucous membranes pink and moist. No oral lesions noted. NECK: Trachea midline. Supple and not tender, no meningeal signs CARDIOVASCULAR: Regular rate and rhythm. No murmurs, rubs or gallops heard RESPIRATORY: Clear to auscultation. Breath sounds equal bilaterally. No rales , wheezing or rhonchi ABDOMEN: Soft, non-tender, nondistended. Bowel sounds present and normoactive. No guarding. No rebound. No organomegaly. EXTREMITIES: No clubbing, cyanosis, or edema. Has bilateral BKA, with a well- healed stump. LUE - slightly less swollen, has areas that are mor indurated but not tender, not red and skin desquamating in whole LUE. RUE AVF ok. Central line L groin looks ok NEUROLOGICAL: Non-focal PSYCHIATRIC: Normal affect, calm and cooperative. LINE: L groin central line with no evidence of infection Assessment & Plan Remarks IMPRESSION New fevers, source? low grade, better - ?new sepsis - S/P Rx cellulitis LUE, better; but still very swollen Sepsis syndrome on presentation which shocked, highly suspicious for line- related sepsis, resolved - Has had the chronic femoral permacath in place, removed Previous treatment for recent staph epi and bryon sepsis, completed treatment July 11 ESRD, on HD, MWF Known PVD Hx central venous occlusion Recurrent episodes of hypoglycemia LUE swelling, etiology? RECOMMENDATION Accepted at [facility] but waiting for bed Monitor progress Follow temps Elevate LUE - patient again instructed on need to do LUE elevation He is off Abx Explained plan to the patient D/W Louann Hart MD Sep 09, 2017 14:11
--- NOTE | 2017-09-09 17:08 | HHI.NPPN ---
Subjective History of Present Illness This patient is a 46-year-old male with a history of end-stage renal disease, SLE, hypertension, peripheral vascular disease as well as secondary hyperparathyroidism of renal disease. Unfortunately the patient has had multiple dialysis accesses including dialysis shunts and dialysis catheters in the past complicated by access failure as well as infection. Patient now has very limited options for dialysis access. We were relying on a left femoral dialysis line for access. Fortunately vessel surgery was able to create a left arm AV dialysis fistula back in February. We have used the access for dialysis 3 and the patient was scheduled to have his PermCath removed this Tuesday however presented to the dialysis facility with lethargy and pyrexia. Sepsis imost likely recurrence of line infection most likely consideration. Since admission however noted to have GI bleed and upper endoscopy revealed severe gastritis, and duodenum and mention of large bleeding esophageal varices Interval History Patient with no verbal complaints. Seen during dialysis. Review of Systems Respiratory Lungs: SOB Cardiovascular Cardiac: Edema Objective Data Data Vital Signs Date Time Temp Pulse Resp B/P (MAP) Pulse Ox O2 Delivery O2 Flow Rate FiO2 09/09/17 14:00 69 09/09/17 14:00 Nasal Cannula 2.00 21 09/09/17 14:00 69 09/09/17 14:00 Nasal Cannula 2.00 21 09/09/17 12:00 69 09/09/17 12:00 Nasal Cannula 2.00 21 09/09/17 12:00 99.0 68 20 131/60 (83) 95 09/09/17 10:00 Nasal Cannula 2.00 21 09/09/17 10:00 69 09/09/17 09:00 100 Nasal Cannula 3.50 09/09/17 08:00 69 09/09/17 08:00 Nasal Cannula 2.00 21 09/09/17 08:00 98.5 85 24 131/60 (83) 96 09/09/17 06:00 96 Nasal Cannula 2.00 09/09/17 06:00 81 09/09/17 04:00 98.6 83 17 127/59 (81) 97 09/09/17 04:00 96 Nasal Cannula 2.00 09/09/17 04:00 83 09/09/17 02:00 80 09/09/17 02:00 95 Nasal Cannula 2.00 09/09/17 00:00 99.1 88 18 124/53 (76) 99 09/09/17 00:00 88 09/09/17 00:00 95 Nasal Cannula 2.00 09/08/17 22:00 90 09/08/17 22:00 96 Nasal Cannula 2.00 09/08/17 20:00 105 09/08/17 20:00 99.0 105 20 179/90 (119) 97 09/08/17 20:00 96 Nasal Cannula 2.00 09/08/17 18:00 Nasal Cannula 2.00 21 09/08/17 18:00 87 -: 09/09/17 0300 09/09/17 0300 Physical Exam General Appearance: No Acute Distress Eyes Eye Exam: Sclera White Pulmonary Resp Exam: Clear Bilaterally, Breath Sounds Equal, No Distress Cardiology CV Exam: Regular, Normal Sinus Rhythm Gastrointestinal/Abdomen GI Exam: Soft, Non-Tender Integumentary Skin Exam: Clear, Warm Extremeties Extremities Exam: No Edema, Moderate Edema (1+ pitting edema hips and thighs. 2+ pitting edema of left upper extremity.), Pitting Edema, Dependent Edema Neurologic Neuro Exam: Alert, Awake, Speech Clear, Moving All Extremities Psychiatric Psych Exam: Appropriate Responses Assessment/Plan Discussed Condition With: Patient Problem List: (1) End-stage renal disease on hemodialysis ICD Codes: N18.6 - End stage renal disease; Z99.2 - Dependence on renal dialysis Status: Chronic Plan: Continue HD MWF as per outpatient schedule. Will dialyze intermittently in between if needed for fluid overload. Ultrafiltration of 4000 mL sedate if tolerated. Will likely require dialysis again over the weekend. Noted D10W being tapered as tolerated. Should be noted that glucose appears to be higher when obtained thru central line versus accu-check. Transfer to [facility] pending. Medications should be adjusted for the patient's ESRD. Avoid gadolinium. (2) Localized edema ICD Codes: R60.0 - Localized edema Plan: LUE improving, but still present. Undergoing venogram in the AM to assess for potential central stenosis. (3) Hypoglycemia ICD Codes: E16.2 - Hypoglycemia, unspecified Plan: Patient's hypoglycemia may be related to his end-stage renal disease as clearance of insulin is reduced in the setting of CKD. Patient may possibly also have subclinical hepatic disease coexisting given the fact that he has varices. C-peptide levels can be elevated in the setting of chronic kidney disease secondary to reduced clearance of insulin by the kidney as well as with insulinomas. Pending transfer to [facility] for further evaluation. Has been accepted, awaiting bed. (4) Anemia of renal disease ICD Codes: D63.1 - Anemia in chronic kidney disease Status: Chronic Plan: Epo with HD (5) Esophageal varices determined by endoscopy ICD Codes: I85.00 - Esophageal varices without bleeding Status: Resolved Plan: As far as I'm aware the patient has no known history of cirrhosis. Previous hepatitis profile negative. 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 Clarence Merlos MD Sep 09, 2017 17:08
[2017-09-09] MEDS: LORATADINE 10 MG TAB PO SCH (20:04)
[2017-09-09 21:49] LABS: APTT (PATIENT) 32.4 SEC (24.3-30.1)
[2017-09-10] VITALS (14 sets, daily range): BP systolic 107–136; BP diastolic 55–70; PULSE 72–106; RESP 17–27; TEMP 97.4–98.2; O2SAT 81–100
[2017-09-10 06:28] LABS: APTT (PATIENT) 30.1 SEC (24.3-30.1)
[2017-09-10] MEDS: POLYETHYLENE GLYCOL 17 GM PKG PO SCH (09:13)
[2017-09-10] MEDS: HYDROCORTISONE 10 MG TAB PO SCH (09:13)
[2017-09-10] MEDS: CALCIUM ACETATE 667 MG CAP PO SCH ×4 (09:13→20:26)
[2017-09-10] MEDS: DOCUSATE SODIUM 50 MG/SENNA 8.6 MG TAB PO SCH ×2 (09:13→20:26)
[2017-09-10] MEDS: SODIUM CHLORIDE 0.9% FLUSH 10 ML FLUSH IV FLUSH SCH ×3 (09:13→20:26)
[2017-09-10] MEDS: PANTOPRAZOLE SOD 40 MG DELAYED RELEASE TAB PO SCH ×2 (09:13→20:26)
--- NOTE | 2017-09-10 09:22 | HHI.PR ---
Subjective Remarks Late entry - patient seen on 09/09 at 7 pm Patient denies cp/sob. As per RN patient refused to go for venogram. Denies nausea, vomiting or abdominal pain. Patient states left arm swelling is improving. Denies fevers/chills. Objective Vitals Vital Signs Date Time Temp Pulse Resp B/P (MAP) Pulse Ox O2 Delivery O2 Flow Rate FiO2 09/10/17 06:00 106 09/10/17 06:00 Nasal Cannula 2.00 09/10/17 04:00 87 21 109/60 (76) 09/10/17 04:00 104 09/10/17 04:00 Nasal Cannula 2.00 09/10/17 02:00 Nasal Cannula 2.00 09/10/17 02:00 96 09/10/17 00:00 98.2 97 20 112/56 (74) 09/10/17 00:00 97 09/10/17 00:00 Nasal Cannula 2.00 09/09/17 22:00 Nasal Cannula 2.00 09/09/17 22:00 103 09/09/17 20:00 98.0 91 17 92/52 (65) 09/09/17 20:00 91 09/09/17 20:00 Nasal Cannula 2.00 09/09/17 18:00 69 09/09/17 18:00 Nasal Cannula 2.00 21 09/09/17 16:00 69 09/09/17 16:00 Nasal Cannula 2.00 21 09/09/17 16:00 99.2 84 18 119/55 (76) 09/09/17 14:00 69 09/09/17 14:00 Nasal Cannula 2.00 21 09/09/17 14:00 69 09/09/17 14:00 Nasal Cannula 2.00 21 09/09/17 12:00 69 09/09/17 12:00 Nasal Cannula 2.00 21 09/09/17 12:00 99.0 68 20 131/60 (83) 95 09/09/17 10:00 Nasal Cannula 2.00 21 09/09/17 10:00 69 I/O 09/09/17 09/09/17 09/09/17 09/10/17 09/10/17 09/10/17 07:00 15:00 23:00 07:00 15:00 23:00 Intake Total 720 ml 1100 ml Output Total 0 ml 4000 ml 0 ml Balance 0 ml -3280 ml 1100 ml Intake Oral 720 ml 100 ml IV Total 1000 ml Output Urine Total 0 ml 0 ml Hemodialysis 4000 ml # Bowel Movements 0 Result Diagram: 09/09/17 0300 09/09/17 0300 Imaging Last Impressions Upper Extremity Ultrasound 09/06/17 0000 Signed Impressions: Service Date/Time: Wednesday, September 06, 2017 20:32 - CONCLUSION: 1. Nonocclusive superficial thrombus in the left cephalic vein. No deep venous thrombosis. Hayden Turcios MD Upper Extremity CT 09/02/17 1505 Signed Impressions: Service Date/Time: Saturday, September 02, 2017 17:09 - CONCLUSION: Very impressive soft tissue edema across the forearm. There is fluid between the fascia and the subcutaneous fat. Ehsan Archibald MD Chest X-Ray 09/02/17 0000 Signed Impressions: Service Date/Time: Saturday, September 02, 2017 16:00 - CONCLUSION: Stable mild diffuse vascular prominence similar to previous study. Small amounts of air space disease both lung bases left greater than right unchanged. Ehsan Archibald MD Abdomen MRI 08/31/17 0000 Signed Impressions: Service Date/Time: Thursday, August 31, 2017 15:40 - CONCLUSION: 1. Very limited study due to breathing motion artifact which and lack of IV contrast. 2. Atrophic kidneys with multiple tiny cortical cysts. 3. The pancreatic duct is just out of the range of normal measuring 4 mm in diameter. I'm not able to clearly identify an obstructing mass or stone on this limited study. Consideration could be made to a pancreatic protocol CT scan which is less susceptible to motion artifact. Narendra Barreto Jr., MD Abdomen Ultrasound 08/26/17 0000 Signed Impressions: Service Date/Time: Saturday, August 26, 2017 08:06 - CONCLUSION: 1. Kidneys are echogenic which can be seen with medical renal disease. 2. Cholelithiasis. 3. Mild prominence of the main pancreatic duct. Devyn Hickey MD Central Venous Line 08/25/17 0000 Signed Impressions: Service Date/Time: August 14:47 - CONCLUSION: Uncomplicated line placement as above. Tavares Ventura MD Objective Remarks GENERAL: NAD, A&Ox3 HEAD: Normocephalic. NECK: Supple, trachea midline. No lymphadenopathy. EYES: No scleral icterus. No injection or drainage. CARDIOVASCULAR: Regular rate and rhythm without murmurs, gallops, or rubs. RESPIRATORY: Breath sounds equal bilaterally. No accessory muscle use. GASTROINTESTINAL: Abdomen soft, non-tender, nondistended. MUSCULOSKELETAL: No cyanosis. History bilateral [id number] amputation's. Right second/third finger amputations. Left arm edema, induration, tenderness to palpation. SKIN: Warm and dry. Scars of right forearm NEURO: No focal neurological deficitis. PSYCH: Slightly flattened affect. Procedures EGD PROCEDURE REPORT EXAM DATE: 08/13/2017 INDICATIONS: The patient is a 46 yr old male here for an EGD due to melena PROCEDURE PERFORMED: EGD w/ band ligation of varices MEDICATIONS: None and Per Anesthesia. TOPICAL ANESTHETIC: none CONSENT: The patient understands the risks and benefits of the procedure and understands that these risks include, but are not limited to: sedation, allergic reaction, infection, perforation and/or bleeding. Alternative means of evaluation and treatment include, among others: physical exam, x-rays, and/or surgical intervention. The patient elects to proceed with this endoscopic procedure. medical equipment was checked for proper function. Hand hygiene and appropriate measures for infection prevention was taken. After the risks, benefits and alternatives of the procedure were thoroughly explained, Informed consent was verified, confirmed and timeout was successfully executed by the treatment team. The patient was anesthetized with topical anesthesia and the Pentax [id number] endoscope was introduced through the mouth and advanced to the second portion of the duodenum. Retroflexion was performed and was normal The gastroscope was then slowly withdrawn and removed. ESOPHAGUS: There were large varices in the middle third of the esophagus and lower third esophagus. The varices were bleeding intermittently with spurting spot , 6 bands applied and bleeding controlled. STOMACH: There was severe and erosive gastritis in the entire examined stomach. DUODENUM: Multiple large shallow erosions were found in the duodenal bulb and 2nd part duodenum. ADVERSE EVENTS: There were no complications. IMPRESSIONS: 1. Bleeding Esophageal varices, with active bleeding identified, 6 bands applied to controll the bleeding 2. There was gastritis in the entire examined stomach 3. Multiple large erosions were found in the duodenal bulb and 2nd part duodenum RECOMMENDATIONS: Continue PPI , start Octreotide, PATIENT CONDITION: stable DISPOSITION: Observation REPEAT EXAM: Return 4 weeks EGD Chon Rodriguez MD 08/13/2017 1:38 PM Medications and IVs Current Medications Medications (Trade) Dose Ordered Sig/Nohelia Route Start Time Stop Time Status Last Admin (NS Flush) 2 ml UNSCH PRN IV FLUSH 08/12/17 11:45 08/31/17 14:50 (NS Flush) 2 ml BID IV FLUSH 08/12/17 21:00 09/09/17 20:04 (Tylenol) 650 mg Q6H PRN PO 08/12/17 11:45 08/29/17 18:25 (Zofran Inj) 4 mg Q6H PRN IV PUSH 08/12/17 11:45 08/15/17 13:52 (Albuterol Neb) 2.5 mg Q2HR NEB PRN INH 08/12/17 11:45 Miscellaneous Information 1 Q361D XX 08/12/17 11:45 (Angelika-Colace) 1 tab BID PO 08/12/17 21:00 09/09/17 20:04 (Milk Of Magnesia Liq) 30 ml Q12H PRN PO 08/12/17 11:45 (Senokot) 17.2 mg Q12H PRN PO 08/12/17 11:45 08/27/17 13:22 (Dulcolax Supp) 10 mg DAILY PRN RECTAL 08/12/17 11:45 (Lactulose Liq) 30 ml DAILY PRN PO 08/12/17 11:45 (Proamatine) 10 mg TID@ PO 08/12/17 12:00 Future Hold 09/08/17 05:24 (Xanax) 1 mg Q8H PRN PO 08/12/17 12:00 09/02/17 20:53 (Brethine Inj) 1 mg UNSCH PRN SQ 08/12/17 12:00 08/13/17 03:13 (Phoslo) 1,334 mg TID PO 08/15/17 13:00 09/09/17 13:43 (Epogen Inj) 10,000 units UNSCH PRN IV PUSH 08/16/17 10:15 09/07/17 10:35 (Protonix) 40 mg Q12HR PO 08/18/17 21:00 09/09/17 20:04 (D50w (Vial) Inj) 50 ml UNSCH PRN IV PUSH 08/22/17 08:30 09/05/17 16:31 (Glucagon Inj) 1 mg STAT PRN IM 08/22/17 08:30 Heparin Sodium/ Dextrose 250 ml @ 14 mls/hr TITRATE PRN IV 08/24/17 17:00 09/08/17 14:30 ([place] 5-325 Mg) 1 tab Q4H PRN PO 08/24/17 17:00 09/07/17 23:54 ([place] 10-325 Mg) 1 tab Q4H PRN PO 08/24/17 17:00 09/08/17 10:22 (NS Flush) DAILY IV FLUSH 08/26/17 09:00 09/07/17 08:18 (NS Flush) UNSCH PRN IV FLUSH 08/25/17 14:45 (Cortef) 10 mg DAILY PO 08/27/17 09:00 09/09/17 09:25 (Claritin) 10 mg HS PO 08/28/17 21:00 09/09/17 20:04 (Miralax) 17 gm DAILY PO 09/04/17 10:00 09/08/17 09:40 Dextrose 1,000 ml @ 50 mls/hr Q20H IV 09/07/17 12:00 09/09/17 23:16 Sodium Chloride 1,000 ml @ 0 mls/hr Q0M PRN OTHER 09/08/17 18:51 Sodium Chloride 1,000 ml @ 200 mls/hr Q5H PRN IV 09/08/17 18:51 Sodium Chloride 1,000 ml @ 0 mls/hr Q0M PRN OTHER 09/08/17 18:51 (Mannitol Inj) 12.5 gm UNSCH PRN IV 09/08/17 19:00 Albumin Human 100 ml @ 60 mls/hr UNSCH PRN IV 09/08/17 19:00 (NS Flush) 5 ml UNSCH PRN IV FLUSH 09/08/17 19:00 (Heparin Inj) UNSCH PRN .XX 09/08/17 19:00 (Gentamicin (Dialysis) Inj) 20 mg UNSCH PRN OTHER 09/08/17 19:00 (Zofran Inj) 4 mg UNSCH PRN IV PUSH 09/08/17 19:00 (Tylenol) 650 mg UNSCH PRN PO 09/08/17 19:00 (Benadryl) 25 mg UNSCH PRN PO 09/08/17 19:00 (Nitrostat Sl) 0.4 mg UNSCH PRN SL 09/08/17 19:00 (Catapres) 0.1 mg UNSCH PRN PO 09/08/17 19:00 (Gelfoam 12 Mm/7 Mm Top) 1 foam UNSCH PRN TOP 09/08/17 19:00 (Norvasc) 10 mg DAILY PO 09/09/17 09:00 (Apresoline Inj) 10 mg Q30M PRN IV PUSH 09/08/17 20:15 A/P Problem List: (1) Elevated lactic acid level ICD Code: E87.2 - Acidosis Status: Resolved (2) HYPOTENSION OF HEMODIALYSIS ICD Code: I95.3 - HYPOTENSION OF HEMODIALYSIS Status: Resolved (3) Fever ICD Code: R50.9 - Fever, unspecified Status: Resolved (4) ESRD (end stage renal disease) on dialysis ICD Code: N18.6 - End stage renal disease; Z99.2 - Dependence on renal dialysis Status: Chronic (5) Lupus (systemic lupus erythematosus) ICD Code: M32.9 - Systemic lupus erythematosus, unspecified (6) Hypoglycemia ICD Code: E16.2 - Hypoglycemia, unspecified (7) Anemia ICD Code: D64.9 - Anemia, unspecified Status: Acute (8) Chronic anticoagulation ICD Code: Z79.01 - terminal worker (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 of anticoagulants (9) H/O hypercoagulable state ICD Code: Z86.2 - Personal history of diseases of the blood and blood-forming organs and certain disorders involving the immune mechanism (10) Elevated glucose ICD Code: R73.09 - Other abnormal glucose (11) Hypoalbuminemia ICD Code: E88.09 - Other disorders of plasma-protein metabolism, not elsewhere classified (12) Thrombocytopenia ICD Code: D69.6 - Thrombocytopenia, unspecified (13) Elevated AST (SGOT) ICD Code: R74.0 - Nonspecific elevation of levels of transaminase and lactic acid dehydrogenase [LDH] (14) Macrocytic anemia ICD Code: D53.9 - Nutritional anemia, unspecified (15) Severe sepsis ICD Code: A41.9 - Sepsis, unspecified organism; R65.20 - Severe sepsis without septic shock (16) History of DVT (deep vein thrombosis) ICD Code: Z86.718 - Personal history of other venous thrombosis and embolism (17) History of pulmonary embolism ICD Code: Z86.711 - Personal history of pulmonary embolism (18) Gastroesophageal reflux disease ICD Code: K21.9 - Gastro-esophageal reflux disease without esophagitis (19) Coronary artery disease ICD Code: I25.10 - Atherosclerotic heart disease of [place] coronary artery without angina pectoris (20) 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 Admitted secondary to severe sepsis related to pneumonia. Discharge has been on hold secondary to hypoglycemia. Right hand Accu-Chek show hypoglycemia prior to lunch dosing. Discharge held. Insulin studies show elevations. Insulinoma workup ongoing. MRI pending. No occlusive thrombus left upper extremity. He has small clots in this arm which is chronic for him. He is on heparin drip at this point. Deferring resumption of Coumadin for possible need of surgery for insulinoma. If no evidence of insulinoma on MRI consider transfer for endocrinology evaluation and management. Central line placement on 08/25/17. Hypoglycemia Not yet improved, chronic problem. May be related to depleted glycogen stores vs s/t renal disease or insulinoma. MRI of abdomen and pelvis with motion artifact, so study was inconclusive. Pt with contrast allergy and ESRD, so CT pancreatic protocol cannot be done. - Started and being treated with D10. - Will look into transferring the pt to facility with endocrinology department. education managers assistance appreciated. [facility] accepted pt. Awaiting availability of an ICU bed. 09/06 Hypoglycemia seems to be stable. Will decrease rate of IV fluids D10 down to 100 ml/hr from 125 ml/hr. 09/07 Blood sugars stable, continue D10 - rate decreased to 90 ml/hr. 09/09 Blood sugars stable and improving. Will Decrease rate of D10 to 50 ml/hr. LUE edema May be s/t cellulitis. Tender to palpation. US showed: Small amount of nonocclusive thrombus in the cephalic vein, otherwise unremarkable study. CT scan with significant edema and fluid between the fascia and subcutaneous fat. - keep arm elevated. - antibiotics per ID. 09/09 Patient refused venogram. Agreed to have it done. Acute respiratory failure Required NRB at 100% 09/02. Repeat chest x-ray and ABG were stable. Currently breathing comfortably. O2 saturation level may have been erroneously low secondary to peripheral vascular disease. - oxygen as needed. - monitor in ICU. Stable. Sinus tachycardia A fib with RVR reported on EKG. EKG appears to actually showed sinus tach with PVCs. Currently appears to be in sinus rhythm on telemetry. Repeat EKG confirms sinus rhythm. - DC diltiazem. Resume as needed. - telemetry. Anxiety disorder NOS/ Acute toxic metabolic encephalopathy Stable. - Continue as needed alprazolam. Severe sepsis/ History of bacteremia Resolved. Tunneled vas cath removed 08/12. - Will continue vancomycin and Diflucan for now per ID. Cultures remain negative. Coronary artery disease status post stent/ PAD/ Chronic hypotension related to dialysis Clinically asymptomatic. - Continue midodrine. Gastroesophageal reflux disease The pt had bleeding Esophageal varices s/p banding. Also noted was gastritis and multiple large erosions in the duodenal bulb and 2nd part of the duodenum. - Continue Protonix BID. - GI follow-up as an outpatient - holding Coumadin. On heparin gtt. End-stage renal disease/ Lupus nephritis/ Hyperphosphatemia The pt is on hemodialysis Tuesday/Tuesday and Tuesday per nephrology. - Continue sevelamer 1600 mg 3 times a day for hyperphosphatemia. - dialysis as per pnephrology Macrocytic anemia/ Anemia of chronic kidney disease/ Acute blood loss anemia/ Thrombocytopenia/ Hypercoagulable state Stable. - Coumadin on hold for now (this had been on hold secondary to GI bleed). Continue heparin drip. - Lifelong anticoagulation. History bilateral [id number] amputation's/ Right second/third finger amputation - continue supportive care - Physical/ occupational therapy. Constipation Ongoing. - Continue Miralax and lactulose. Dulcolax supp if needed. Uncontrolled HTN 09/08 Systolic blood pressure severely elevated with an sbp in the 180's. Will start amlodipine 10 mg po daily, first dose now. 09/09 BP stable now. Continue to monitor vital signs. Continue amlodipine. Blurry Vision Right eye 09/08 Possibly due to uncontrolled hypertension. Consult ophthalmology if it does not resolve with blood pressure control. 09/09 Blurry vision resolved. DVT prophylaxis Coumadin on hold due to active bleeding. Resume Coumadin when stabilized. Heparin gtt. Discharge Planning Transfer to [facility] when bed is available. Problem Qualifiers (1) Fever: Qualified Codes: R50.9 - Fever, unspecified (2) Lupus (systemic lupus erythematosus): Qualified Codes: M32.15 - Tubulo-interstitial nephropathy in systemic lupus erythematosus (3) Anemia: Qualified Codes: N18.6 - End stage renal disease; D63.1 - Anemia in chronic kidney disease; Z99.2 - Dependence on renal dialysis (4) Gastroesophageal reflux disease: Qualified Codes: K21.9 - Gastro-esophageal reflux disease without esophagitis (5) Coronary artery disease: Qualified Codes: I25.10 - Atherosclerotic heart disease of [place] coronary artery without angina pectoris Sammy De León MD Sep 10, 2017 09:22
[2017-09-10] MEDS: ACETAMINOPHEN/HYDROcodone 325 MG/10 MG TAB PO PRN ×2 (12:43→21:36)
--- NOTE | 2017-09-10 14:54 | HHI.NPPN ---
Subjective History of Present Illness This patient is a 46-year-old male with a history of end-stage renal disease, SLE, hypertension, peripheral vascular disease as well as secondary hyperparathyroidism of renal disease. Unfortunately the patient has had multiple dialysis accesses including dialysis shunts and dialysis catheters in the past complicated by access failure as well as infection. Patient now has very limited options for dialysis access. We were relying on a left femoral dialysis line for access. Fortunately vessel surgery was able to create a left arm AV dialysis fistula back in February. We have used the access for dialysis 3 and the patient was scheduled to have his PermCath removed this Tuesday however presented to the dialysis facility with lethargy and pyrexia. Sepsis imost likely recurrence of line infection most likely consideration. Since admission however noted to have GI bleed and upper endoscopy revealed severe gastritis, and duodenum and mention of large bleeding esophageal varices Interval History Patient with no verbal complaints today. Review of Systems Respiratory Lungs: SOB Cardiovascular Cardiac: Edema Objective Data Data Vital Signs Date Time Temp Pulse Resp B/P (MAP) Pulse Ox O2 Delivery O2 Flow Rate FiO2 09/10/17 12:00 98.1 92 27 136/67 (90) 81 09/10/17 12:00 Nasal Cannula 2.00 09/10/17 12:00 92 09/10/17 11:33 100 Nasal Cannula 2.00 09/10/17 10:00 82 09/10/17 10:00 Nasal Cannula 2.00 09/10/17 08:00 97.9 72 17 126/61 (82) 09/10/17 08:00 Nasal Cannula 2.00 09/10/17 08:00 72 09/10/17 07:40 17 09/10/17 06:00 106 09/10/17 06:00 Nasal Cannula 2.00 09/10/17 04:00 87 21 109/60 (76) 09/10/17 04:00 104 09/10/17 04:00 Nasal Cannula 2.00 09/10/17 02:00 Nasal Cannula 2.00 09/10/17 02:00 96 09/10/17 00:00 98.2 97 20 112/56 (74) 09/10/17 00:00 97 09/10/17 00:00 Nasal Cannula 2.00 09/09/17 22:00 Nasal Cannula 2.00 09/09/17 22:00 103 09/09/17 20:00 98.0 91 17 92/52 (65) 09/09/17 20:00 91 09/09/17 20:00 Nasal Cannula 2.00 09/09/17 18:00 69 09/09/17 18:00 Nasal Cannula 2.00 21 09/09/17 16:00 69 09/09/17 16:00 Nasal Cannula 2.00 21 09/09/17 16:00 99.2 84 18 119/55 (76) -: 09/09/17 0300 09/09/17 0300 Physical Exam General Appearance: No Acute Distress Eyes Eye Exam: Sclera White Pulmonary Resp Exam: Clear Bilaterally, Breath Sounds Equal, No Distress Cardiology CV Exam: Regular, Normal Sinus Rhythm Gastrointestinal/Abdomen GI Exam: Soft, Non-Tender Integumentary Skin Exam: Clear, Warm Extremeties Extremities Exam: No Edema, Moderate Edema (1+ pitting edema hips and thighs. 2+ pitting edema of left upper extremity.), Pitting Edema, Dependent Edema Neurologic Neuro Exam: Alert, Awake, Speech Clear, Moving All Extremities Psychiatric Psych Exam: Appropriate Responses Assessment/Plan Discussed Condition With: Patient Problem List: (1) End-stage renal disease on hemodialysis ICD Codes: N18.6 - End stage renal disease; Z99.2 - Dependence on renal dialysis Status: Chronic Plan: Continue HD MWF as per outpatient schedule. Transfer to [facility] pending. Medications should be adjusted for the patient's ESRD. Avoid gadolinium. (2) Localized edema ICD Codes: R60.0 - Localized edema Plan: Volume status has improved with increased ultrafiltration. Next dialysis session likely Tuesday. (3) Hypoglycemia ICD Codes: E16.2 - Hypoglycemia, unspecified Plan: Patient's hypoglycemia may be related to his end-stage renal disease as clearance of insulin is reduced in the setting of CKD. Patient may possibly also have subclinical hepatic disease coexisting given the fact that he has varices. C-peptide levels can be elevated in the setting of chronic kidney disease secondary to reduced clearance of insulin by the kidney as well as with insulinomas. Pending transfer to [facility] for further evaluation. Has been accepted, awaiting bed.. It is noted however that there has been possible to taper the D10W down in view of improving blood sugars. (4) Anemia of renal disease ICD Codes: D63.1 - Anemia in chronic kidney disease Status: Chronic Plan: Epo with HD (5) Esophageal varices determined by endoscopy ICD Codes: I85.00 - Esophageal varices without bleeding Status: Resolved Plan: As far as I'm aware the patient has no known history of cirrhosis. Previous hepatitis profile negative. 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 Clarence Merlos MD Sep 10, 2017 14:53
--- NOTE | 2017-09-10 15:12 | HHI.PR ---
Subjective Remarks Denies cp/sob. Stable vital signs. Left upper extremity swelling improving. afebrile. Objective Vitals Vital Signs Date Time Temp Pulse Resp B/P (MAP) Pulse Ox O2 Delivery O2 Flow Rate FiO2 09/10/17 12:00 98.1 92 27 136/67 (90) 81 09/10/17 12:00 Nasal Cannula 2.00 09/10/17 12:00 92 09/10/17 11:33 100 Nasal Cannula 2.00 09/10/17 10:00 82 09/10/17 10:00 Nasal Cannula 2.00 09/10/17 08:00 97.9 72 17 126/61 (82) 09/10/17 08:00 Nasal Cannula 2.00 09/10/17 08:00 72 09/10/17 07:40 17 09/10/17 06:00 106 09/10/17 06:00 Nasal Cannula 2.00 09/10/17 04:00 87 21 109/60 (76) 09/10/17 04:00 104 09/10/17 04:00 Nasal Cannula 2.00 09/10/17 02:00 Nasal Cannula 2.00 09/10/17 02:00 96 09/10/17 00:00 98.2 97 20 112/56 (74) 09/10/17 00:00 97 09/10/17 00:00 Nasal Cannula 2.00 09/09/17 22:00 Nasal Cannula 2.00 09/09/17 22:00 103 09/09/17 20:00 98.0 91 17 92/52 (65) 09/09/17 20:00 91 09/09/17 20:00 Nasal Cannula 2.00 09/09/17 18:00 69 09/09/17 18:00 Nasal Cannula 2.00 21 09/09/17 16:00 69 09/09/17 16:00 Nasal Cannula 2.00 21 09/09/17 16:00 99.2 84 18 119/55 (76) I/O 09/09/17 09/09/17 09/09/17 09/10/17 09/10/17 09/10/17 07:00 15:00 23:00 07:00 15:00 23:00 Intake Total 720 ml 1100 ml Output Total 0 ml 4000 ml 0 ml Balance 0 ml -3280 ml 1100 ml Intake Oral 720 ml 100 ml IV Total 1000 ml Output Urine Total 0 ml 0 ml Hemodialysis 4000 ml # Bowel Movements 0 Result Diagram: 09/09/17 0300 09/09/17 0300 Imaging Last Impressions Upper Extremity Ultrasound 09/06/17 0000 Signed Impressions: Service Date/Time: Wednesday, September 06, 2017 20:32 - CONCLUSION: 1. Nonocclusive superficial thrombus in the left cephalic vein. No deep venous thrombosis. Hayden Turcios MD Upper Extremity CT 09/02/17 1505 Signed Impressions: Service Date/Time: Saturday, September 02, 2017 17:09 - CONCLUSION: Very impressive soft tissue edema across the forearm. There is fluid between the fascia and the subcutaneous fat. Ehsan Archibald MD Chest X-Ray 09/02/17 0000 Signed Impressions: Service Date/Time: Saturday, September 02, 2017 16:00 - CONCLUSION: Stable mild diffuse vascular prominence similar to previous study. Small amounts of air space disease both lung bases left greater than right unchanged. Ehsan Archibald MD Abdomen MRI 08/31/17 0000 Signed Impressions: Service Date/Time: Thursday, August 31, 2017 15:40 - CONCLUSION: 1. Very limited study due to breathing motion artifact which and lack of IV contrast. 2. Atrophic kidneys with multiple tiny cortical cysts. 3. The pancreatic duct is just out of the range of normal measuring 4 mm in diameter. I'm not able to clearly identify an obstructing mass or stone on this limited study. Consideration could be made to a pancreatic protocol CT scan which is less susceptible to motion artifact. Narendra Barreto Jr., MD Abdomen Ultrasound 08/26/17 0000 Signed Impressions: Service Date/Time: Saturday, August 26, 2017 08:06 - CONCLUSION: 1. Kidneys are echogenic which can be seen with medical renal disease. 2. Cholelithiasis. 3. Mild prominence of the main pancreatic duct. Devyn Hickey MD Central Venous Line 08/25/17 0000 Signed Impressions: Service Date/Time: August 14:47 - CONCLUSION: Uncomplicated line placement as above. Tavares Ventura MD Objective Remarks GENERAL: NAD, A&Ox3 HEAD: Normocephalic. NECK: Supple, trachea midline. No lymphadenopathy. EYES: No scleral icterus. No injection or drainage. CARDIOVASCULAR: Regular rate and rhythm without murmurs, gallops, or rubs. RESPIRATORY: Breath sounds equal bilaterally. No accessory muscle use. GASTROINTESTINAL: Abdomen soft, non-tender, nondistended. MUSCULOSKELETAL: No cyanosis. History bilateral [id number] amputation's. Right second/third finger amputations. Left arm edema, induration, tenderness to palpation. SKIN: Warm and dry. Scars of right forearm NEURO: No focal neurological deficitis. PSYCH: Slightly flattened affect. Procedures EGD PROCEDURE REPORT EXAM DATE: 08/13/2017 INDICATIONS: The patient is a 46 yr old male here for an EGD due to melena PROCEDURE PERFORMED: EGD w/ band ligation of varices MEDICATIONS: None and Per Anesthesia. TOPICAL ANESTHETIC: none CONSENT: The patient understands the risks and benefits of the procedure and understands that these risks include, but are not limited to: sedation, allergic reaction, infection, perforation and/or bleeding. Alternative means of evaluation and treatment include, among others: physical exam, x-rays, and/or surgical intervention. The patient elects to proceed with this endoscopic procedure. medical equipment was checked for proper function. Hand hygiene and appropriate measures for infection prevention was taken. After the risks, benefits and alternatives of the procedure were thoroughly explained, Informed consent was verified, confirmed and timeout was successfully executed by the treatment team. The patient was anesthetized with topical anesthesia and the Pentax [id number] endoscope was introduced through the mouth and advanced to the second portion of the duodenum. Retroflexion was performed and was normal The gastroscope was then slowly withdrawn and removed. ESOPHAGUS: There were large varices in the middle third of the esophagus and lower third esophagus. The varices were bleeding intermittently with spurting spot , 6 bands applied and bleeding controlled. STOMACH: There was severe and erosive gastritis in the entire examined stomach. DUODENUM: Multiple large shallow erosions were found in the duodenal bulb and 2nd part duodenum. ADVERSE EVENTS: There were no complications. IMPRESSIONS: 1. Bleeding Esophageal varices, with active bleeding identified, 6 bands applied to controll the bleeding 2. There was gastritis in the entire examined stomach 3. Multiple large erosions were found in the duodenal bulb and 2nd part duodenum RECOMMENDATIONS: Continue PPI , start Octreotide, PATIENT CONDITION: stable DISPOSITION: Observation REPEAT EXAM: Return 4 weeks EGD Chon Rodriguez MD 08/13/2017 1:38 PM A/P Problem List: (1) Elevated lactic acid level ICD Code: E87.2 - Acidosis Status: Resolved (2) HYPOTENSION OF HEMODIALYSIS ICD Code: I95.3 - HYPOTENSION OF HEMODIALYSIS Status: Resolved (3) Fever ICD Code: R50.9 - Fever, unspecified Status: Resolved (4) ESRD (end stage renal disease) on dialysis ICD Code: N18.6 - End stage renal disease; Z99.2 - Dependence on renal dialysis Status: Chronic (5) Lupus (systemic lupus erythematosus) ICD Code: M32.9 - Systemic lupus erythematosus, unspecified (6) Hypoglycemia ICD Code: E16.2 - Hypoglycemia, unspecified (7) Anemia ICD Code: D64.9 - Anemia, unspecified Status: Acute (8) Chronic anticoagulation ICD Code: Z79.01 - MCC (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 of anticoagulants (9) H/O hypercoagulable state ICD Code: Z86.2 - Personal history of diseases of the blood and blood-forming organs and certain disorders involving the immune mechanism (10) Elevated glucose ICD Code: R73.09 - Other abnormal glucose (11) Hypoalbuminemia ICD Code: E88.09 - Other disorders of plasma-protein metabolism, not elsewhere classified (12) Thrombocytopenia ICD Code: D69.6 - Thrombocytopenia, unspecified (13) Elevated AST (SGOT) ICD Code: R74.0 - Nonspecific elevation of levels of transaminase and lactic acid dehydrogenase [LDH] (14) Macrocytic anemia ICD Code: D53.9 - Nutritional anemia, unspecified (15) Severe sepsis ICD Code: A41.9 - Sepsis, unspecified organism; R65.20 - Severe sepsis without septic shock (16) History of DVT (deep vein thrombosis) ICD Code: Z86.718 - Personal history of other venous thrombosis and embolism (17) History of pulmonary embolism ICD Code: Z86.711 - Personal history of pulmonary embolism (18) Gastroesophageal reflux disease ICD Code: K21.9 - Gastro-esophageal reflux disease without esophagitis (19) Coronary artery disease ICD Code: I25.10 - Atherosclerotic heart disease of [place] coronary artery without angina pectoris (20) 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 Admitted secondary to severe sepsis related to pneumonia. Discharge has been on hold secondary to hypoglycemia. Right hand Accu-Chek show hypoglycemia prior to lunch dosing. Discharge held. Insulin studies show elevations. Insulinoma workup ongoing. MRI pending. No occlusive thrombus left upper extremity. He has small clots in this arm which is chronic for him. He is on heparin drip at this point. Deferring resumption of Coumadin for possible need of surgery for insulinoma. If no evidence of insulinoma on MRI consider transfer for endocrinology evaluation and management. Central line placement on 08/25/17. Hypoglycemia Not yet improved, chronic problem. May be related to depleted glycogen stores vs s/t renal disease or insulinoma. MRI of abdomen and pelvis with motion artifact, so study was inconclusive. Pt with contrast allergy and ESRD, so CT pancreatic protocol cannot be done. - Started and being treated with D10. - Will look into transferring the pt to facility with endocrinology department. technical delivery manager assistance appreciated. [facility] accepted pt. Awaiting availability of an ICU bed. 09/06 Hypoglycemia seems to be stable. Will decrease rate of IV fluids D10 down to 100 ml/hr from 125 ml/hr. 09/07 Blood sugars stable, continue D10 - rate decreased to 90 ml/hr. 09/09 Blood sugars stable and improving. Will Decrease rate of D10 to 50 ml/hr. 09/10 Blood sugars stable. No episodes of hypoglycemia. Will check blood sugars every 6 hours instead of every 3 hours. Change D10W to D10 NS to avoid hyponatremia. Hypoglycemia with increased insulin and C peptide could be secondary to CKD and decrease clearance of insulin vs insulinoma. LUE edema May be s/t cellulitis. Tender to palpation. US showed: Small amount of nonocclusive thrombus in the cephalic vein, otherwise unremarkable study. CT scan with significant edema and fluid between the fascia and subcutaneous fat. - keep arm elevated. - antibiotics per ID. Patient refused venogram. Agreed to have it done another day. Acute respiratory failure Required NRB at 100% 09/02. Repeat chest x-ray and ABG were stable. Currently breathing comfortably. O2 saturation level may have been erroneously low secondary to peripheral vascular disease. - oxygen as needed. - monitor in ICU. Stable. Sinus tachycardia A fib with RVR reported on EKG. EKG appears to actually showed sinus tach with PVCs. Currently appears to be in sinus rhythm on telemetry. Repeat EKG confirms sinus rhythm. - DC diltiazem. Resume as needed. - telemetry. Anxiety disorder NOS/ Acute toxic metabolic encephalopathy Stable. - Continue as needed alprazolam. Severe sepsis/ History of bacteremia Resolved. Tunneled vas cath removed 08/12. - Will continue vancomycin and Diflucan for now per ID. Cultures remain negative. Coronary artery disease status post stent/ PAD/ Chronic hypotension related to dialysis Clinically asymptomatic. - Continue midodrine. Gastroesophageal reflux disease The pt had bleeding Esophageal varices s/p banding. Also noted was gastritis and multiple large erosions in the duodenal bulb and 2nd part of the duodenum. - Continue Protonix BID. - GI follow-up as an outpatient - holding Coumadin. On heparin gtt. End-stage renal disease/ Lupus nephritis/ Hyperphosphatemia The pt is on hemodialysis Tuesday/Tuesday and Tuesday per nephrology. - Continue sevelamer 1600 mg 3 times a day for hyperphosphatemia. - dialysis as per pnephrology Macrocytic anemia/ Anemia of chronic kidney disease/ Acute blood loss anemia/ Thrombocytopenia/ Hypercoagulable state Stable. - Coumadin on hold for now (this had been on hold secondary to GI bleed). Continue heparin drip. - Lifelong anticoagulation. History bilateral [id number] amputation's/ Right second/third finger amputation - continue supportive care - Physical/ occupational therapy. Constipation Ongoing. - Continue Miralax and lactulose. Dulcolax supp if needed. Uncontrolled HTN 09/08 Systolic blood pressure severely elevated with an sbp in the 180's. Will start amlodipine 10 mg po daily, first dose now. 09/09 BP stable now. Continue to monitor vital signs. Continue amlodipine. Blurry Vision Right eye 09/08 Possibly due to uncontrolled hypertension. Consult ophthalmology if it does not resolve with blood pressure control. 09/09 Blurry vision resolved. Discussed with Dr Walters regarding change of femoral line that the patient has had for several days. He said that he will change line. DVT prophylaxis Coumadin on hold due to active bleeding. Resume Coumadin when stabilized. Heparin gtt. Discharge Planning Transfer to [facility] when bed [facility] available. Problem Qualifiers (1) Fever: Qualified Codes: R50.9 - Fever, unspecified (2) Lupus (systemic lupus erythematosus): Qualified Codes: M32.15 - Tubulo-interstitial nephropathy in systemic lupus erythematosus (3) Anemia: Qualified Codes: N18.6 - End stage renal disease; D63.1 - Anemia in chronic kidney disease; Z99.2 - Dependence on renal dialysis (4) Gastroesophageal reflux disease: Qualified Codes: K21.9 - Gastro-esophageal reflux disease without esophagitis (5) Coronary artery disease: Qualified Codes: I25.10 - Atherosclerotic heart disease of [place] coronary artery without angina pectoris Sammy De León MD Sep 10, 2017 15:12
[2017-09-10] MEDS: SODIUM CHLORIDE 23.4% INJ 154 MEQ in DEXTROSE 10% INJ 1,000 ML IV SCH (16:02)
[2017-09-10 17:50] LABS: AUTOMATED NEUTROPHIL # 7.3 TH/MM3 (1.8-7.7); BASOPHIL % 0.1 % (0.0-2.0); HEMATOCRIT 22.2 % (39.0-51.0); HEMO FLAGS DIFF FINAL; LYMPH % 5.4 % (9.0-44.0); LYMPHOCYTE # 0.5 TH/MM3 (1.0-4.8); MEAN CELL VOLUME 89.9 FL (80.0-100.0); MEAN CORPUSCULAR HEMOGLOBIN 30.6 PG (27.0-34.0); MONO % 11.4 % (0.0-8.0); NEUT % 83.1 % (16.0-70.0); PLATELET COUNT 213 TH/MM3 (150-450); RED BLOOD COUNT 2.47 MIL/MM3 (4.50-5.90); RED CELL DISTRIBUTION WIDTH 21.3 % (11.6-17.2); WHITE BLOOD COUNT 8.8 TH/MM3 (4.0-11.0)
[2017-09-10 18:00] LABS: ALT (GPT) 25 U/L (12-78); ANION GAP 9 MEQ/L (5-15); AST (GOT) 51 U/L (15-37); BICARBONATE 30.3 MEQ/L (21.0-32.0); BLOOD UREA NITROGEN 38 MG/DL (7-18); CHLORIDE 90 MEQ/L (98-107); GLOMERULAR FILTRATION RATE 9 ML/MIN (>89); POTASSIUM 4.1 MEQ/L (3.5-5.1); SODIUM (NA) 129 MEQ/L (136-145)
[2017-09-10 18:01] LABS: APTT (PATIENT) 29.9 SEC (24.3-30.1)
[2017-09-10 18:02] LABS: ALKALINE PHOSPHATASE 85 U/L (45-117); TOTAL BILIRUBIN ADULT 0.3 MG/DL (0.2-1.0)
[2017-09-10] MEDS: LORATADINE 10 MG TAB PO SCH (20:26)
[2017-09-10] MEDS: HEPARIN-D5W 25,000 U/250 ML 250 ML IV PRN (20:28)
[2017-09-11] VITALS (14 sets, daily range): BP systolic 101–138; BP diastolic 51–63; PULSE 92–141; RESP 17–37; TEMP 97.8–101.9; O2SAT 61–100
[2017-09-11 00:37] LABS: CRITICAL VALUE YES
[2017-09-11 01:39] LABS: HEMATOCRIT 24.2 % (39.0-51.0); MEAN CELL VOLUME 90.4 FL (80.0-100.0); MEAN CORPUSCULAR HEMOGLOBIN 28.8 PG (27.0-34.0); MEAN CORPUSCULAR HGB CONC 31.9 % (32.0-36.0); PLATELET COUNT 243 TH/MM3 (150-450); RED BLOOD COUNT 2.67 MIL/MM3 (4.50-5.90); REVIEW FLAG FINAL; WHITE BLOOD COUNT 7.7 TH/MM3 (4.0-11.0)
[2017-09-11 01:57] LABS: APTT (PATIENT) 68.1 SEC (24.3-30.1)
[2017-09-11] MEDS: POLYETHYLENE GLYCOL 17 GM PKG PO SCH (09:00)
[2017-09-11] MEDS: CALCIUM ACETATE 667 MG CAP PO SCH ×3 (09:00→19:00)
[2017-09-11] MEDS: SODIUM CHLORIDE 0.9% FLUSH 10 ML FLUSH IV FLUSH SCH ×3 (09:12→20:50)
[2017-09-11] MEDS: DOCUSATE SODIUM 50 MG/SENNA 8.6 MG TAB PO SCH ×2 (09:13→20:50)
[2017-09-11] MEDS: PANTOPRAZOLE SOD 40 MG DELAYED RELEASE TAB PO SCH ×2 (09:13→20:50)
[2017-09-11] MEDS: HYDROCORTISONE 10 MG TAB PO SCH (09:13)
[2017-09-11 09:35] LABS: APTT (PATIENT) 35.2 SEC (24.3-30.1)
[2017-09-11] MEDS: DEXTROSE 50% IN WATER 50 ML VIAL(D50) IV PUSH PRN ×3 (11:22→15:15)
[2017-09-11] MEDS: SODIUM CHLORIDE 23.4% INJ 154 MEQ in DEXTROSE 10% INJ 1,000 ML IV SCH ×2 (12:33→23:38)
[2017-09-11] MEDS ORDERED: SODIUM CHLOR 0.9% 250 ML INJ 250 ML IV ONE (13:00)
[2017-09-11] MEDS: RESP: ALBUTEROL 2.5 MG/3 ML NEB (PRN) INH ×3 (13:42→20:41)
--- NOTE | 2017-09-11 13:43 | HHI.PR ---
Subjective Remarks Objective Vitals Vital Signs Date Time Temp Pulse Resp B/P (MAP) Pulse Ox O2 Delivery O2 Flow Rate FiO2 09/11/17 12:00 Nasal Cannula 2.00 09/11/17 10:00 Nasal Cannula 2.00 09/11/17 09:27 100 Nasal Cannula 2.00 09/11/17 08:00 Nasal Cannula 2.00 09/11/17 06:00 96 Nasal Cannula 2.00 09/11/17 06:00 121 09/11/17 04:00 99 09/11/17 04:00 97 Nasal Cannula 2.00 09/11/17 04:00 97.8 96 17 138/63 (88) 97 09/11/17 02:00 94 Nasal Cannula 2.00 09/11/17 02:00 92 09/11/17 00:00 97 Nasal Cannula 2.00 09/11/17 00:00 98.0 99 22 105/55 (72) 96 09/11/17 00:00 99 09/10/17 22:00 93 09/10/17 22:00 96 Nasal Cannula 2.00 09/10/17 20:00 81 09/10/17 20:00 98 Nasal Cannula 2.00 09/10/17 20:00 97.9 81 25 107/55 (72) 96 09/10/17 19:04 100 Nasal Cannula 2.00 09/10/17 18:00 Nasal Cannula 2.00 09/10/17 18:00 80 09/10/17 16:00 80 09/10/17 16:00 97.4 80 23 125/70 (88) 98 09/10/17 16:00 Nasal Cannula 2.00 09/10/17 14:00 Nasal Cannula 2.00 09/10/17 14:00 90 I/O 09/10/17 09/10/17 09/10/17 09/11/17 09/11/17 09/11/17 07:00 15:00 23:00 07:00 15:00 23:00 Intake Total 1100 ml 1140 ml 480 ml Output Total 0 ml 3000 ml 0 ml Balance 1100 ml -1860 ml 480 ml Intake Oral 100 ml 240 ml 480 ml IV Total 1000 ml 900 ml Output Urine Total 0 ml 0 ml Hemodialysis 3000 ml # Bowel Movements 0 0 Result Diagram: 09/11/17 01109/10/17 1787 Objective Remarks GENERAL: Patient in severe respiratory distress, tachypneic and obtunded. HEAD: Normocephalic. NECK: Supple, trachea midline. No lymphadenopathy. EYES: No scleral icterus. No injection or drainage. CARDIOVASCULAR: Regular rate and rhythm without murmurs, gallops, or rubs. RESPIRATORY: Breath sounds equal bilaterally. Tachypneic, (+) accessory muscle use with intercostal retractions. GASTROINTESTINAL: Abdomen soft, non-tender, nondistended. MUSCULOSKELETAL: No cyanosis. History bilateral [id number] amputation's. Right second/third finger amputations. Left arm edema, induration, tenderness to palpation. SKIN: Warm and dry. Scars of right forearm NEURO: Moves all extremities, due to respiratory distress and altered mentation unable to perform full neuro exam. Procedures EGD PROCEDURE REPORT EXAM DATE: 08/13/2017 INDICATIONS: The patient is a 46 yr old male here for an EGD due to melena PROCEDURE PERFORMED: EGD w/ band ligation of varices MEDICATIONS: None and Per Anesthesia. TOPICAL ANESTHETIC: none CONSENT: The patient understands the risks and benefits of the procedure and understands that these risks include, but are not limited to: sedation, allergic reaction, infection, perforation and/or bleeding. Alternative means of evaluation and treatment include, among others: physical exam, x-rays, and/or surgical intervention. The patient elects to proceed with this endoscopic procedure. medical equipment was checked for proper function. Hand hygiene and appropriate measures for infection prevention was taken. After the risks, benefits and alternatives of the procedure were thoroughly explained, Informed consent was verified, confirmed and timeout was successfully executed by the treatment team. The patient was anesthetized with topical anesthesia and the Pentax [id number] endoscope was introduced through the mouth and advanced to the second portion of the duodenum. Retroflexion was performed and was normal The gastroscope was then slowly withdrawn and removed. ESOPHAGUS: There were large varices in the middle third of the esophagus and lower third esophagus. The varices were bleeding intermittently with spurting spot , 6 bands applied and bleeding controlled. STOMACH: There was severe and erosive gastritis in the entire examined stomach. DUODENUM: Multiple large shallow erosions were found in the duodenal bulb and 2nd part duodenum. ADVERSE EVENTS: There were no complications. IMPRESSIONS: 1. Bleeding Esophageal varices, with active bleeding identified, 6 bands applied to controll the bleeding 2. There was gastritis in the entire examined stomach 3. Multiple large erosions were found in the duodenal bulb and 2nd part duodenum RECOMMENDATIONS: Continue PPI , start Octreotide, PATIENT CONDITION: stable DISPOSITION: Observation REPEAT EXAM: Return 4 weeks EGD Chon Rodriguez MD 08/13/2017 1:38 PM A/P Problem List: (1) Elevated lactic acid level ICD Code: E87.2 - Acidosis Status: Resolved (2) HYPOTENSION OF HEMODIALYSIS ICD Code: I95.3 - HYPOTENSION OF HEMODIALYSIS Status: Resolved (3) Fever ICD Code: R50.9 - Fever, unspecified Status: Resolved (4) ESRD (end stage renal disease) on dialysis ICD Code: N18.6 - End stage renal disease; Z99.2 - Dependence on renal dialysis Status: Chronic (5) Lupus (systemic lupus erythematosus) ICD Code: M32.9 - Systemic lupus erythematosus, unspecified (6) Hypoglycemia ICD Code: E16.2 - Hypoglycemia, unspecified (7) Anemia ICD Code: D64.9 - Anemia, unspecified Status: Acute (8) Chronic anticoagulation ICD Code: 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 (9) H/O hypercoagulable state ICD Code: Z86.2 - Personal history of diseases of the blood and blood-forming organs and certain disorders involving the immune mechanism (10) Elevated glucose ICD Code: R73.09 - Other abnormal glucose (11) Hypoalbuminemia ICD Code: E88.09 - Other disorders of plasma-protein metabolism, not elsewhere classified (12) Thrombocytopenia ICD Code: D69.6 - Thrombocytopenia, unspecified (13) Elevated AST (SGOT) ICD Code: R74.0 - Nonspecific elevation of levels of transaminase and lactic acid dehydrogenase [LDH] (14) Macrocytic anemia ICD Code: D53.9 - Nutritional anemia, unspecified (15) Severe sepsis ICD Code: A41.9 - Sepsis, unspecified organism; R65.20 - Severe sepsis without septic shock (16) History of DVT (deep vein thrombosis) ICD Code: Z86.718 - Personal history of other venous thrombosis and embolism (17) History of pulmonary embolism ICD Code: Z86.711 - Personal history of pulmonary embolism (18) Gastroesophageal reflux disease ICD Code: K21.9 - Gastro-esophageal reflux disease without esophagitis (19) Coronary artery disease ICD Code: I25.10 - Atherosclerotic heart disease of [place] coronary artery without angina pectoris (20) 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 Admitted secondary to severe sepsis related to pneumonia. Discharge has been on hold secondary to hypoglycemia. Right hand Accu-Chek show hypoglycemia prior to lunch dosing. Discharge held. Insulin studies show elevations. Insulinoma workup ongoing. MRI pending. No occlusive thrombus left upper extremity. He has small clots in this arm which is chronic for him. He is on heparin drip at this point. Deferring resumption of Coumadin for possible need of surgery for insulinoma. If no evidence of insulinoma on MRI consider transfer for endocrinology evaluation and management. Central line placement on 08/25/17. Hypoglycemia Not yet improved, chronic problem. May be related to depleted glycogen stores vs s/t renal disease or insulinoma. MRI of abdomen and pelvis with motion artifact, so study was inconclusive. Pt with contrast allergy and ESRD, so CT pancreatic protocol cannot be done. - Started and being treated with D10. - Will look into transferring the pt to facility with endocrinology department. web development manager assistance appreciated. [facility] accepted pt. Awaiting availability of an ICU bed. 09/06 Hypoglycemia seems to be stable. Will decrease rate of IV fluids D10 down to 100 ml/hr from 125 ml/hr. 09/07 Blood sugars stable, continue D10 - rate decreased to 90 ml/hr. 09/09 Blood sugars stable and improving. Will Decrease rate of D10 to 50 ml/hr. 09/10 Blood sugars stable. No episodes of hypoglycemia. Will check blood sugars every 6 hours instead of every 3 hours. Change D10W to D10 NS to avoid hyponatremia. Hypoglycemia with increased insulin and C peptide could be secondary to CKD and decrease clearance of insulin vs insulinoma. LUE edema May be s/t cellulitis. Tender to palpation. US showed: Small amount of nonocclusive thrombus in the cephalic vein, otherwise unremarkable study. CT scan with significant edema and fluid between the fascia and subcutaneous fat. - keep arm elevated. - antibiotics per ID. Patient refused venogram. Agreed to have it done another day. Acute respiratory failure Required NRB at 100% 09/02. Repeat chest x-ray and ABG were stable. Currently breathing comfortably. O2 saturation level may have been erroneously low secondary to peripheral vascular disease. - oxygen as needed. - monitor in ICU. Stable. Sinus tachycardia A fib with RVR reported on EKG. EKG appears to actually showed sinus tach with PVCs. Currently appears to be in sinus rhythm on telemetry. Repeat EKG confirms sinus rhythm. - DC diltiazem. Resume as needed. - telemetry. Anxiety disorder NOS/ Acute toxic metabolic encephalopathy Stable. - Continue as needed alprazolam. Severe sepsis/ History of bacteremia Resolved. Tunneled vas cath removed 08/12. - Will continue vancomycin and Diflucan for now per ID. Cultures remain negative. Coronary artery disease status post stent/ PAD/ Chronic hypotension related to dialysis Clinically asymptomatic. - Continue midodrine. Gastroesophageal reflux disease The pt had bleeding Esophageal varices s/p banding. Also noted was gastritis and multiple large erosions in the duodenal bulb and 2nd part of the duodenum. - Continue Protonix BID. - GI follow-up as an outpatient - holding Coumadin. On heparin gtt. End-stage renal disease/ Lupus nephritis/ Hyperphosphatemia The pt is on hemodialysis Tuesday/Tuesday and Tuesday per nephrology. - Continue sevelamer 1600 mg 3 times a day for hyperphosphatemia. - dialysis as per pnephrology Macrocytic anemia/ Anemia of chronic kidney disease/ Acute blood loss anemia/ Thrombocytopenia/ Hypercoagulable state Stable. - Coumadin on hold for now (this had been on hold secondary to GI bleed). Continue heparin drip. - Lifelong anticoagulation. History bilateral [id number] amputation's/ Right second/third finger amputation - continue supportive care - Physical/ occupational therapy. Constipation Ongoing. - Continue Miralax and lactulose. Dulcolax supp if needed. Uncontrolled HTN 09/08 Systolic blood pressure severely elevated with an sbp in the 180's. Will start amlodipine 10 mg po daily, first dose now. 09/09 BP stable now. Continue to monitor vital signs. Continue amlodipine. Blurry Vision Right eye 09/08 Possibly due to uncontrolled hypertension. Consult ophthalmology if it does not resolve with blood pressure control. 09/09 Blurry vision resolved. Discussed with Dr Walters regarding change of femoral line that the patient has had for several days. He said that he will change line. DVT prophylaxis Coumadin on hold due to active bleeding. Resume Coumadin when stabilized. Heparin gtt. Discharge Planning Transfer to [facility] when bed is available. Problem Qualifiers (1) Fever: Qualified Codes: R50.9 - Fever, unspecified (2) Lupus (systemic lupus erythematosus): Qualified Codes: M32.15 - Tubulo-interstitial nephropathy in systemic lupus erythematosus (3) Anemia: Qualified Codes: N18.6 - End stage renal disease; D63.1 - Anemia in chronic kidney disease; Z99.2 - Dependence on renal dialysis (4) Gastroesophageal reflux disease: Qualified Codes: K21.9 - Gastro-esophageal reflux disease without esophagitis (5) Coronary artery disease: Qualified Codes: I25.10 - Atherosclerotic heart disease of [place] coronary artery without angina pectoris Sammy De León MD Sep 11, 2017 13:43
[2017-09-11] MEDS ORDERED: methylPREDNISolone SOD SUCC 125 MG/2 ML VIAL IV PUSH ONE (14:15)
[2017-09-11] MEDS ORDERED: ALTEPLASE RECOMBINANT 2 MG VIAL INTRACATH ONE (14:15)
[2017-09-11 14:20] LABS: BLOOD GAS BASE EXCESS 1.2 mmol/L (-2-2); BLOOD GAS CARBOXYHEMOGLOBIN 1.1 % (0-4); BLOOD GAS HCO3 25 mmol/L (22-26); BLOOD GAS METHEMOGLOBIN 1.5 % (0-2); BLOOD GAS O2 HGB SATURATION 49 % (90-100); BLOOD GAS OXYGEN CONTENT 5.7 Vol % (12.0-20.0); BLOOD GAS PCO2 39 mmHg (38-42); BLOOD GAS PO2 31 mmHg (61-120); BLOOD GAS TOTAL HGB 8.2 G/DL (12.0-16.0); TEMP CORR TO 98.6
[2017-09-11 14:21] LABS: CRITICAL VALUE YES; DRAW SITE LT RADIAL; FIO2 100 %; NUMBER OF ARTERIAL PUNCTURES 2; OXYGEN DEVICE MASK; STAT YES; ULNAR PULSE PRESENT
--- NOTE | 2017-09-11 14:35 | HHI.PR ---
Addendum to Inpatient Note Addendum Reason: Additional Documentation Additional Information I was called by RN due to patient being hypoglycemic, and respiratory distress, tachypnea and with abdomen the status. Patient also noted to be tachycardic. Vital signs at the time shows a heart rate in the 130s, respiratory rate 25, O2 sat of 88 a percent. The patient at the time noted to be obtunded, not following commands or answering questions. Tachypneic using accessory muscles of respiration, with good air movement and mild diffuse wheezing. No crackles, rhonchi auscultated. Edema in the left upper extremity is improving. Unable to assess full neurologic exam due to after mental status. No edema in lower extremities. Abdomen soft, nontender nondistended. Assessment and plan 1. Altered mental status/encephalopathy. Possibly secondary to metabolic encephalopathy secondary to severe hypoglycemia. D50 administered by RN in my presence. Increased D50 from 50 mL's per hour to 100 mL's per hour. Mentation improved after injection of D50. Check ABG 2. Severe respiratory distress/every hypoxemic respiratory failure. Anterior etiology. Hospice secondary to severe hypoglycemia. Patient with hypoxemia satting in the low 80s. Place on a nonrebreather mask, possible need for BiPAP use. Check ABG and ordered chest x-ray stat. EKG reviewed by me shows sinus tachycardia without ST-T changes suggestive of active ischemia. Check reticulocyte enzymes and trend. 3. Severe Hypoglycemia Continue the tenderness, however increase rate to 100 mg/h given hypoglycemia. Continue D50 as needed. There is concern for insulinoma, patient with elevated C-peptide and insulin levels. Transfer arranged for further workup at [facility] with the endocrinology department. 4. Sinus tachycardia. EKG reviewed by me shows sinus tachycardia. This is likely reactive to hypoglycemia and possible combination of volume the patient. As per RN report he was told that patient had a lot of fluid pulled off during yesterday's hemodialysis. Order earlier to 250 millimeters normal saline IV bolus, will give second bolus of normal saline 250 mL. Consent for a left femoral line in place since 08/26/17. Discussed with Dr. Kelly who try to obtain access yesterday, however this could not be done. The patient will need to have a replacement of femoral central line by IR. 5. End stage renal disease on hemodialysis. Management as per nephrology. 6. Hyponatremia previously on D5 water to treat hypoglycemia. This was changed to D5NS and sodium improved from 126-129 today. And Ling D5NS. Discussed the case with Dr. Morales from intensive care medicine. Densities consult placed. Sammy De León MD Sep 11, 2017 14:35
[2017-09-11] MEDS ORDERED: WAT IV STA ×4 (15:03→15:22)
[2017-09-11] MEDS ORDERED: DEXTROSE IV STA ×4 (15:03→15:22)
--- NOTE | 2017-09-11 15:14 | RADRPT ---
EXAM DATE/TIME: 09/11/2017 14:10 [facility] COMPARISON: CHEST SINGLE AP, September 02, 2017, 16:00. INDICATIONS : Short of breath. MEDICAL HISTORY : Cardiovascular disease. SURGICAL HISTORY : Bilateral below the knee amputations ENCOUNTER: Initial ACUITY: 2 weeks PAIN SCORE: 5/10 LOCATION: Bilateral chest FINDINGS: Stable patchy bilateral lower lung zone airspace disease. Cardiomediastinal contours are within liborio l limits. Bony thorax is intact. CONCLUSION: 1. Stable patchy bilateral lower lung zone airspace disease. 2. No significant neural change. Shmuel Beckett MD on September 11, 2017 at 15:09 Board Certified Radiologist. This report was verified electronically.
[2017-09-11] MEDS ORDERED: VANCOMYCIN INJ 1,251 MG in SODIUM CHLORID 0.9% 500 ML INJ 500 ML IV ONE (16:00)
[2017-09-11] MEDS: FLUCONAZOLE 200 MG PREMIX BAG 100 ML IV SCH (17:19)
--- NOTE | 2017-09-11 17:49 | HHI.CCPN ---
Subjective Remarks/Hospital Course Hospital Course: This is a 46-year-old AA male. Date of admission . Past medical history includes SLE, lupus nephritis, end-stage renal disease on hemodialysis Tuesday/Tuesday and Tuesday per Dr. Merlos, history of pulmonary embolism/SVC thrombus, peripheral arterial disease, gastroesophageal reflux disease, anemia of chronic kidney disease, anxiety along with hyperphosphatemia. According to mother at bedside, patient started feeling "sick" yesterday become increasingly lethargic. Unknown if febrile/malaise/myalgias. Patient presented to his regular scheduled hemodialysis today where he was hypotensive, tachycardic and febrile. His right AV fistula graft is currently heparinized with syringes intact and in place. In the ED, patient received 1 L normal saline and 1 PRBC. Patient stool guaiac positive. Lactate was 6.6. Patient does have a white cell count. He has a macrocytic anemia and thrombocytopenia. During his last admission was diagnosed with staph epi/coag negative staph bacteremia. He was planned to have his left hemodialysis vascular catheter/femoral removed on Tuesday according to his mother bedside. He was on vancomycin scheduled with hemodialysis and oral Diflucan as an outpatient. Of note his baseline systolic blood pressure is in the 80s. Subjective: 08/13: taken urgently for endoscopy for UGIB. banded active esophageal varices. started on clear liquid diet per GI. lactate bumped this morning, likely secondary to active bleeding, but now bleeding has subsided. patient subjectively feels better than yesterday- currently on HD on my eval. 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 He was transferred to [facility] and critical care services were reconsulted. 09/11: Critical care medicine reconsulted for tachycardia with respiratory distress and hypoglycemia despite D10 drip. Patient had been followed by hospitalist service awaiting transfer to [facility]. He has remained on a D10 drip. He was treated with Diflucan and vancomycin for a PermCath infection which had been removed and subsequently had grown out yeast and Corynebacterium. He underwent hemodialysis on 09/10. He has had a left femoral central line and has extremely poor options for vascular access. He developed worsening mental status with hypoglycemia today despite D10 percent and was given D50 IV push 2, glucose on IV and critical care medicine was reconsulted. Patient was tachycardic in the 130s maintaining his blood pressure at the time. He subsequently spiked a fever 104 axillary? Though oral temperature taken shortly after read as 100.4. Blood cultures 2 were obtained from his central line and patient was switched to D 25% at 100 cc an hour for hypoglycemia despite D10 percent running at 100 cc an hour. I also spoke with Dr. Patel covering for ID and have restarted antibiotics for empiric coverage including Diflucan and 1 dose of vancomycin IV. Objective Vital Signs Date Time Temp Pulse Resp B/P (MAP) Pulse Ox O2 Delivery O2 Flow Rate FiO2 09/11/17 14:00 Non-Rebreather 15.00 09/11/17 14:00 129 09/11/17 12:00 99.6 21 112/51 (71) 09/11/17 09:27 100 09/09/17 18:00 21 Intake and Output 09/11/17 09/11/17 09/12/17 08:00 16:00 00:00 Intake Total 480 ml Output Total 0 ml Balance 480 ml Result Diagram: 09/11/17 0110 09/10/17 1647 Other Results Laboratory Tests Test 09/11/17 14:00 Blood Gas Puncture Site LT RADIAL Blood Gas Patient Temperature 98.6 Blood Gas HCO3 25 mmol/L (22-26) Blood Gas Base Excess 1.2 mmol/L (-2-2) Blood Gas Oxygen Saturation 49 % (90-100) Arterial Blood pH 7.43 (7.380-7.420) Arterial Blood Partial Pressure CO2 39 mmHg (38-42) Arterial Blood Partial Pressure O2 31 mmHg (61-120) Arterial Blood Oxygen Content 5.7 Vol % (12.0-20.0) Arterial Blood Carboxyhemoglobin 1.1 % (0-4) Arterial Blood Methemoglobin 1.5 % (0-2) Blood Gas Hemoglobin 8.2 G/DL (12.0-16.0) Oxygen Delivery Device MASK Blood Gas Inspired Oxygen 100 % Imaging Last Impressions Chest X-Ray 08/12/17 0910 Signed Impressions: Service Date/Time: Saturday, August 12, 2017 09:25 - CONCLUSION: 1. Stable scattered patchiness bilaterally. Chon Nye MD Objective Remarks GENERAL: 46-year-old AA male, currently resting in bed febrile in minimal respiratory distress on nonrebreather facemask SKIN: Warm and dry. HEAD: Atraumatic. Normocephalic. EYES: Pupils equal and round about 3 mm bilaterally and reactive. No scleral icterus. No injection or drainage. ENT: No nasal bleeding or discharge. Mucous membranes pink and moist. Oropharynx without erythema NECK: Trachea midline. No JVD. CARDIOVASCULAR: Tachycardic, RR. RESPIRATORY: Good air entry bilaterally, scattered rhonchi, no wheezing or crackles. GASTROINTESTINAL: Abdomen soft, non-tender, nondistended. MUSCULOSKELETAL: bilateral [id number] amputation. Left upper extremity edema NEUROLOGICAL: Drowsy, easily arousable, disoriented, not following commands Procedures EGD PROCEDURE REPORT EXAM DATE: 08/13/2017 INDICATIONS: The patient is a 46 yr old male here for an EGD due to melena PROCEDURE PERFORMED: EGD w/ band ligation of varices MEDICATIONS: None and Per Anesthesia. TOPICAL ANESTHETIC: none CONSENT: The patient understands the risks and benefits of the procedure and understands that these risks include, but are not limited to: sedation, allergic reaction, infection, perforation and/or bleeding. Alternative means of evaluation and treatment include, among others: physical exam, x-rays, and/or surgical intervention. The patient elects to proceed with this endoscopic procedure. medical equipment was checked for proper function. Hand hygiene and appropriate measures for infection prevention was taken. After the risks, benefits and alternatives of the procedure were thoroughly explained, Informed consent was verified, confirmed and timeout was successfully executed by the treatment team. The patient was anesthetized with topical anesthesia and the Pentax [id number] endoscope was introduced through the mouth and advanced to the second portion of the duodenum. Retroflexion was performed and was normal The gastroscope was then slowly withdrawn and removed. ESOPHAGUS: There were large varices in the middle third of the esophagus and lower third esophagus. The varices were bleeding intermittently with spurting spot , 6 bands applied and bleeding controlled. STOMACH: There was severe and erosive gastritis in the entire examined stomach. DUODENUM: Multiple large shallow erosions were found in the duodenal bulb and 2nd part duodenum. ADVERSE EVENTS: There were no complications. IMPRESSIONS: 1. Bleeding Esophageal varices, with active bleeding identified, 6 bands applied to controll the bleeding 2. There was gastritis in the entire examined stomach 3. Multiple large erosions were found in the duodenal bulb and 2nd part duodenum RECOMMENDATIONS: Continue PPI , start Octreotide, PATIENT CONDITION: stable DISPOSITION: Observation REPEAT EXAM: Return 4 weeks EGD Chon Rodriguez MD 08/13/2017 1:38 PM A/P Assessment and Plan 46-year-old gentleman with ESRD who was originally admitted with tunneled perm- a-cath infection, severe sepsis, and active upper GI bleed s/p urgent endoscopy and esophageal banding. The patient was transferred to [facility] floor however prior discharge his sugars were found to be extremely low. The patient was awaiting the transfer to [facility] for further workup by cork painter and grader, when he developed acute respiratory distress, hypoglycemia despite D10 percent and fever with suspected recurrence of sepsis Neuro/Psych: Anxiety disorder NOS Acute toxic metabolic encephalopathy likely secondary to recurrent hypoglycemia/ severe sepsis Continue alprazolam 1 mg every 8 hours when necessary anxiety Acetaminophen 650 mg every 6 hours when necessary fever Noted allergy to morphine sulfate CV: Severe sepsis - Coronary artery disease status post stent PAD Echocardiogram 04/25 revealed EF 55-60%. Mild left ventricular hypertrophy. Trace TR. Watch for hypotension. Levophed for pressor support if needed. On dialysis hence not bolusing IV fluid currently Resp: Acute respiratory failure Asthma? Chronic bibasilar opacification Patient continues to refuse BiPAP On nonrebreather facemask Suspected recurrence of sepsis causing respiratory distress. Chest x-ray with bilateral airspace disease Incentive spirometry while awake Albuterol/ipratropium aerosols every 6 hours with albuterol aerosols every 2 hours when necessary for Dyspnea GI: Elevated AST Gastroesophageal reflux disease GI bleed on admission Continue pantoprazole Docusate sodium/senna 1 tablet twice a day for bowel regimen Gastroenterology consult appreciated : No indication for Monroy catheter Endo: Recent hydrocortisone use Recurrent hypoglycemia Continue hydrocortisone by mouth Renal: End-stage renal disease on chronic intermittent hemodialysis Tuesday/Tuesday and Tuesday secondary to lupus nephritis Hyperphosphatemia Hemodialysis and further management per nephrology Heme: Macrocytic anemia Anemia of chronic kidney disease and acute blood loss Thrombocytopenia Hypercoagulable state On chronic warfarin therapy. Last evaluation in [address] Oreilly. At that time workup negative except for low protein S. Did not recommend repeating. Recommended lifelong anticoagulation due to history of PE/ DVT/SVC thrombus etc. Daily CBC/coags. Transfuse as clinically indicated to maintain hemoglobin greater than 7 trend h&h ID: Severe sepsis Recent staph epi/coag negative staph bacteremia history of enterococcus right upper extremity wound Patient being followed by ID. Recently was treated for infected PermCath which had been removed and grew out yeast and Corynebacterium. Blood cultures 2 sent on 09/11 and patient empirically started on Diflucan IV and single dose of vancomycin IV given Infectious disease reconsulted and discussed with Dr. Patel covering for Dr. Barney tunneled vas cath removed 08/12. Has a left femoral central line in place since 08/26 however this has not been able to be replaced due to poor vascular access and may require interventional radiology to place central line. 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 Currently not on any long-term medication for SLE. PT evaluate and treat FEN: Prophylaxis - GI - pantoprazole - DVT - SCD/heparin drip Critical Care: The total critical care time was 35 minutes. Time to perform other separately billable procedures was not included in the critical care time. Laron Morales MD Sep 11, 2017 17:49
[2017-09-11] MEDS ORDERED: WAT IV SCH ×2 (20:45)
[2017-09-11] MEDS ORDERED: DEXTROSE IV SCH ×2 (20:45)
[2017-09-11] MEDS: LORATADINE 10 MG TAB PO SCH (20:50)
[2017-09-11] MEDS ORDERED: ACETAMINOPHEN 1000 MG/100 ML 65 ML IV ONE (21:00)
[2017-09-11] MEDS: WAT IV SCH ×2 (21:44)
[2017-09-11] MEDS: DEXTROSE IV SCH ×2 (21:44)
--- NOTE | 2017-09-11 22:12 | EKG ---
Date Performed: 09/11/2017 Time Performed: 08:18:02 PTAGE: 47 years EKG: Sinus tachycardia. Ant/septal and lateral T wave changes Borderline ECG PREVIOUS TRACING : 09/03/2017 09.34 Compared to the previous tracing sinus tachycardia is new DOCTOR: Andrea Paul Interpretating Date/Time 09/11/2017 22:10:39
[2017-09-11 23:35] LABS: APTT (PATIENT) 36.9 SEC (24.3-30.1)
[2017-09-12] VITALS (15 sets, daily range): BP systolic 110–134; BP diastolic 57–74; PULSE 89–116; RESP 12–24; TEMP 98.1–99.4; O2SAT 92–100
[2017-09-12] MEDS: DEXTROSE IV SCH ×4 (01:36→06:39)
[2017-09-12] MEDS: WAT IV SCH ×4 (01:36→06:39)
[2017-09-12 06:31] LABS: APTT (PATIENT) 41.4 SEC (24.3-30.1)
[2017-09-12] MEDS: SODIUM CHLORIDE 0.9% FLUSH 10 ML FLUSH IV FLUSH SCH ×2 (08:19)
[2017-09-12] MEDS: PANTOPRAZOLE SOD 40 MG DELAYED RELEASE TAB PO SCH ×2 (08:19→21:43)
[2017-09-12] MEDS: CALCIUM ACETATE 667 MG CAP PO SCH ×3 (08:19→18:00)
[2017-09-12] MEDS: DOCUSATE SODIUM 50 MG/SENNA 8.6 MG TAB PO SCH ×2 (08:19→21:43)
[2017-09-12] MEDS: HYDROCORTISONE 10 MG TAB PO SCH (08:19)
[2017-09-12] MEDS: POLYETHYLENE GLYCOL 17 GM PKG PO SCH (08:20)
[2017-09-12] MEDS: SODIUM CHLORIDE 23.4% INJ 154 MEQ in DEXTROSE 10% INJ 1,000 ML IV SCH ×2 (08:20→12:33)
--- NOTE | 2017-09-12 10:34 | HHI.IDPN ---
Subjective Subjective Remarks Patient is a 46-year-old male, presented to the hospital for further evaluation of hypotension. He has known end-stage renal disease, and gets hemodialysis every Tuesday and Tuesday. He was in the dialysis clinic and he was found to be febrile, hypotensive, and tachycardic. He completed his treatment, and he was advised to go to the hospital for further evaluation and treatment. Patient currently has been having fevers since his been in the emergency room. He is also complaining of being sick to his stomach, and has had some nausea. Denies any abdominal pain. He denies any respiratory complaint. Patient has known central venous occlusion, and the only patent venous access for dialysis has been in his left femoral groin. During his last admission in June, he was treated for staph epidermides and Bryon proptosis sepsis. He was supposed to complete treatment till July 11. The catheter was exchanged during that admission. Patient has a right upper extremity AV fistula, and it was evaluated by the vascular surgeon when he was discharged from the hospital, and the last 3 dialysis, his AV fistula has been used. Patient also during his last admission had problem with hypoglycemia and his workup was negative at that time. Infectious disease consultation has been requested to evaluate the patient. Initial evaluation, patient was treated for sepsis due to the permacath. The permacath was removed Culture from the permacath showed yeast and corynebacterium. He completed Diflucan and Vanco. Notes reviewed D/W RN Febrile this weekend 2 blood cultures done now growing gram-negative dg Patient currently having hemodialysis Temps better No new complaint Breathing is okay, on nasal O2 Chest x-ray no change in infiltrates Remains on D10 for hypoglycemia BP ok, not on pressors Has central line L groin placed 08/25 Antibiotics Current Medications Current Medications Medications (Trade) Dose Ordered Sig/Nohelia Route Start Time Stop Time Status Last Admin (NS Flush) 2 ml UNSCH PRN IV FLUSH 08/12/17 11:45 08/31/17 14:50 (NS Flush) 2 ml BID IV FLUSH 08/12/17 21:00 09/12/17 08:19 (Tylenol) 650 mg Q6H PRN PO 08/12/17 11:45 08/29/17 18:25 (Zofran Inj) 4 mg Q6H PRN IV PUSH 08/12/17 11:45 08/15/17 13:52 (Albuterol Neb) 2.5 mg Q2HR NEB PRN INH 08/12/17 11:45 09/11/17 20:41 Miscellaneous Information 1 Q361D XX 08/12/17 11:45 (Angelika-Colace) 1 tab BID PO 08/12/17 21:00 09/12/17 08:19 (Milk Of Magnesia Liq) 30 ml Q12H PRN PO 08/12/17 11:45 (Senokot) 17.2 mg Q12H PRN PO 08/12/17 11:45 08/27/17 13:22 (Dulcolax Supp) 10 mg DAILY PRN RECTAL 08/12/17 11:45 (Lactulose Liq) 30 ml DAILY PRN PO 08/12/17 11:45 (Proamatine) 10 mg TID@,,17 PO 08/12/17 12:00 Future Hold 09/08/17 05:24 (Xanax) 1 mg Q8H PRN PO 08/12/17 12:00 09/02/17 20:53 (Brethine Inj) 1 mg UNSCH PRN SQ 08/12/17 12:00 08/13/17 03:13 (Phoslo) 1,334 mg TID PO 08/15/17 13:00 09/12/17 08:19 (Epogen Inj) 10,000 units UNSCH PRN IV PUSH 08/16/17 10:15 09/07/17 10:35 (Protonix) 40 mg Q12HR PO 08/18/17 21:00 09/12/17 08:19 (D50w (Vial) Inj) 50 ml UNSCH PRN IV PUSH 08/22/17 08:30 09/11/17 15:15 (Glucagon Inj) 1 mg STAT PRN IM 08/22/17 08:30 09/11/17 15:16 Heparin Sodium/ Dextrose 250 ml @ 14 mls/hr TITRATE PRN IV 08/24/17 17:00 09/10/17 20:28 (Dickinson 5-325 Mg) 1 tab Q4H PRN PO 08/24/17 17:00 09/07/17 23:54 (Dickinson 10-325 Mg) 1 tab Q4H PRN PO 08/24/17 17:00 09/10/17 21:36 (NS Flush) DAILY IV FLUSH 08/26/17 09:00 09/12/17 08:19 (NS Flush) UNSCH PRN IV FLUSH 08/25/17 14:45 (Cortef) 10 mg DAILY PO 08/27/17 09:00 09/12/17 08:19 (Claritin) 10 mg HS PO 08/28/17 21:00 09/10/17 20:26 (Miralax) 17 gm DAILY PO 09/04/17 10:00 09/10/17 09:13 Sodium Chloride 1,000 ml @ 0 mls/hr Q0M PRN OTHER 09/08/17 18:51 Sodium Chloride 1,000 ml @ 200 mls/hr Q5H PRN IV 09/08/17 18:51 Sodium Chloride 1,000 ml @ 0 mls/hr Q0M PRN OTHER 09/08/17 18:51 (Mannitol Inj) 12.5 gm UNSCH PRN IV 09/08/17 19:00 Albumin Human 100 ml @ 60 mls/hr UNSCH PRN IV 09/08/17 19:00 (NS Flush) 5 ml UNSCH PRN IV FLUSH 09/08/17 19:00 (Heparin Inj) UNSCH PRN .XX 09/08/17 19:00 (Gentamicin (Dialysis) Inj) 20 mg UNSCH PRN OTHER 09/08/17 19:00 (Zofran Inj) 4 mg UNSCH PRN IV PUSH 09/08/17 19:00 (Tylenol) 650 mg UNSCH PRN PO 09/08/17 19:00 (Benadryl) 25 mg UNSCH PRN PO 09/08/17 19:00 09/10/17 23:34 (Nitrostat Sl) 0.4 mg UNSCH PRN SL 09/08/17 19:00 (Catapres) 0.1 mg UNSCH PRN PO 09/08/17 19:00 (Gelfoam 12 Mm/7 Mm Top) 1 foam UNSCH PRN TOP 09/08/17 19:00 (Norvasc) 10 mg DAILY PO 09/09/17 09:00 09/12/17 08:19 (Apresoline Inj) 10 mg Q30M PRN IV PUSH 09/08/17 20:15 Sodium Chloride 154 meq/Dextrose 1,038.5 ml @ 100 mls/ hr [id number] IV 09/10/17 16:00 09/11/17 12:33 Fluconazole/ Sodium Chloride 100 ml @ 100 mls/hr Q24H IV 09/11/17 17:00 09/11/17 17:19 Dextrose 187.5 ml/ Dextrose 500 ml @ 100 mls/hr CONTINUOUS IV 09/11/17 21:00 09/12/17 06:39 Cefepime HCl 2000 mg/Sodium Chloride 100 ml @ 200 mls/hr Q24H IV 09/12/17 10:30 UNV Lines L groin TLC - 08/25 Past Medical History Reviewed Allergies: Coded Allergies: iodine (Unverified Allergy, Severe, blisters, 08/12/17) morphine (Unverified Allergy, Severe, Itching, 08/12/17) potassium iodide (Unverified Allergy, Severe, blisters, 08/12/17) povidone-iodine (Unverified Allergy, Severe, blisters, 08/12/17) sodium iodide (Unverified Allergy, Severe, blisters, 08/12/17) sodium iodide (Unverified Allergy, Severe, blisters, 08/12/17) Objective . Vital Signs Date Time Temp Pulse Resp B/P (MAP) Pulse Ox O2 Delivery O2 Flow Rate FiO2 09/12/17 10:00 94 09/12/17 10:00 99 Nasal Cannula 4.00 09/12/17 08:24 100 Nasal Cannula 4.00 09/12/17 08:00 99 Nasal Cannula 4.00 09/12/17 08:00 93 09/12/17 08:00 98.1 93 12 130/65 (86) 99 09/12/17 06:00 99 09/12/17 06:00 98 Nasal Cannula 4.00 09/12/17 04:00 98 Nasal Cannula 4.00 09/12/17 04:00 98.4 106 24 134/74 (94) 96 09/12/17 04:00 106 09/12/17 02:30 96 Nasal Cannula 4.00 09/12/17 02:00 95 Nasal Cannula 4.00 09/12/17 02:00 104 09/12/17 00:00 103 09/12/17 00:00 99.4 103 16 125/68 (87) 100 09/12/17 00:00 100 Partial Non-Rebreather 15.00 09/11/17 22:00 114 09/11/17 22:00 94 Partial Non-Rebreather 15.00 09/11/17 20:41 96 Partial Rebreather 15.00 09/11/17 20:00 100 Partial Non-Rebreather 15.00 09/11/17 20:00 101.9 117 22 116/56 (76) 100 09/11/17 20:00 117 09/11/17 18:00 Non-Rebreather 15.00 09/11/17 18:00 124 09/11/17 16:00 100.4 131 21 101/51 (68) 98 09/11/17 16:00 131 09/11/17 16:00 Non-Rebreather 15.00 09/11/17 14:00 Non-Rebreather 15.00 09/11/17 14:00 129 09/11/17 12:00 99.6 130 21 112/51 (71) 09/11/17 12:00 Nasal Cannula 2.00 09/11/17 12:00 130 . Laboratory Tests Test 09/10/17 16:47 09/11/17 01:10 White Blood Count 8.8 TH/MM3 7.7 TH/MM3 Red Blood Count 2.47 MIL/MM3 2.67 MIL/MM3 Hemoglobin 7.5 GM/DL 7.7 GM/DL Hematocrit 22.2 % 24.2 % Mean Corpuscular Volume 89.9 FL 90.4 FL Mean Corpuscular Hemoglobin 30.6 PG 28.8 PG Mean Corpuscular Hemoglobin Concent 34.0 % 31.9 % Red Cell Distribution Width 21.3 % 21.0 % Platelet Count 213 TH/MM3 243 TH/MM3 Mean Platelet Volume 8.9 FL 8.3 FL Neutrophils (%) (Auto) 83.1 % Lymphocytes (%) (Auto) 5.4 % Monocytes (%) (Auto) 11.4 % Eosinophils (%) (Auto) 0.0 % Basophils (%) (Auto) 0.1 % Neutrophils # (Auto) 7.3 TH/MM3 Lymphocytes # (Auto) 0.5 TH/MM3 Monocytes # (Auto) 1.0 TH/MM3 Eosinophils # (Auto) 0.0 TH/MM3 Basophils # (Auto) 0.0 TH/MM3 CBC Comment DIFF FINAL Differential Comment Laboratory Tests Test 09/10/17 16:47 09/11/17 13:55 09/12/17 00:30 Blood Urea Nitrogen 38 MG/DL Creatinine 7.55 MG/DL Random Glucose 115 MG/DL Total Protein 7.5 GM/DL Albumin 2.4 GM/DL Calcium Level 8.3 MG/DL Alkaline Phosphatase 85 U/L Aspartate Amino Transf (AST/SGOT) 51 U/L Alanine Aminotransferase (ALT/SGPT) 25 U/L Total Bilirubin 0.3 MG/DL Sodium Level 129 MEQ/L Potassium Level 4.1 MEQ/L Chloride Level 90 MEQ/L Carbon Dioxide Level 30.3 MEQ/L Anion Gap 9 MEQ/L Estimat Glomerular Filtration Rate 9 ML/MIN Troponin I LESS THAN 0.02 NG/ML LESS THAN 0.02 NG/ML Microbiology Date/Time Source Procedure Growth Status 09/11/17 19:56 Blood Peripheral Aerobic Blood Culture Pending Resulted 09/11/17 19:56 Anaerobic Blood Culture - Preliminary Gram Negative Dg Resulted 09/11/17 13:55 Blood Line Aerobic Blood Culture - Preliminary Gram Negative Dg Resulted 09/11/17 13:55 Anaerobic Blood Culture - Preliminary Gram Negative Dg Resulted Imaging RADIOLOGY STUDIES/FILMS REVIEWED Chest X-Ray 09/11/17 0000 Signed Impressions: Service Date/Time: Monday, September 11, 2017 14:10 - CONCLUSION: 1. Stable patchy bilateral lower lung zone airspace disease. 2. No significant neural change. Shmuel Beckett MD Upper Extremity Ultrasound 09/06/17 0000 Signed Impressions: Service Date/Time: Wednesday, September 06, 2017 20:32 - CONCLUSION: 1. Nonocclusive superficial thrombus in the left cephalic vein. No deep venous thrombosis. Hayden Turcios MD Upper Extremity CT 09/02/17 1505 Signed Impressions: Service Date/Time: Saturday, September 02, 2017 17:09 - CONCLUSION: Very impressive soft tissue edema across the forearm. There is fluid between the fascia and the subcutaneous fat. Ehsan Archibald MD Chest X-Ray 09/02/17 0000 Signed Impressions: Service Date/Time: Saturday, September 02, 2017 16:00 - CONCLUSION: Stable mild diffuse vascular prominence similar to previous study. Small amounts of air space disease both lung bases left greater than right unchanged. Ehsan Archibald MD Abdomen MRI 08/31/17 0000 Signed Impressions: Service Date/Time: Thursday, August 31, 2017 15:40 - CONCLUSION: 1. Very limited study due to breathing motion artifact which and lack of IV contrast. 2. Atrophic kidneys with multiple tiny cortical cysts. 3. The pancreatic duct is just out of the range of normal measuring 4 mm in diameter. I'm not able to clearly identify an obstructing mass or stone on this limited study. Consideration could be made to a pancreatic protocol CT scan which is less susceptible to motion artifact. Narendra Barreto Jr., MD Abdomen Ultrasound 08/26/17 0000 Signed Impressions: Service Date/Time: Saturday, August 26, 2017 08:06 - CONCLUSION: 1. Kidneys are echogenic which can be seen with medical renal disease. 2. Cholelithiasis. 3. Mild prominence of the main pancreatic duct. Devyn Hickey MD Central Venous Line 08/25/17 0000 Signed Impressions: Service Date/Time: August 14:47 - CONCLUSION: Uncomplicated line placement as above. Tavares Ventura MD Chest X-Ray 08/12/17 0910 Signed Impressions: Service Date/Time: Saturday, August 12, 2017 09:25 - CONCLUSION: 1. Stable scattered patchiness bilaterally. Chon Nye MD Central Venous Line 08/12/17 0000 Signed Impressions: Service Date/Time: Saturday, August 12, 2017 00:00 - CONCLUSION: Uncomplicated Permcath removal. Shmuel Beckett MD Physical Exam GENERAL: awake and alert, NAD SKIN: Warm and very dry. No generalized rash HEAD: Atraumatic. Normocephalic. No temporal wasting, or tenderness. EYES: [place] conjunctiva. No petechia or hemorrhage. Pupils equal, round and reactive to light. Extraocular movements full and intact. No scleral icterus. EARS, NOSE AND THROAT: Nose without bleeding or purulent nasal discharge. Mucous membranes pink and moist. No oral lesions noted. NECK: Trachea midline. Supple and not tender, no meningeal signs CARDIOVASCULAR: Regular rate and rhythm. No murmurs, rubs or gallops heard RESPIRATORY: Clear to auscultation. Breath sounds equal bilaterally. No rales , wheezing or rhonchi ABDOMEN: Soft, non-tender, nondistended. Bowel sounds present and normoactive. No guarding. No rebound. No organomegaly. EXTREMITIES: No clubbing, cyanosis, or edema. Has bilateral BKA, with a well- healed stump. LUE - improving swelling, has areas that are more indurated but not tender, not red and skin desquamating in whole LUE. RUE AVF ok. Central line L groin looks ok NEUROLOGICAL: Non-focal PSYCHIATRIC: Normal affect, calm and cooperative. LINE: L groin central line with no evidence of infection Assessment & Plan Remarks IMPRESSION New fevers, source? now with GNR in BC - very worrisome that it is from his groin line GNR sepsis, likely line related S/P Rx cellulitis LUE, better; swelling better Sepsis syndrome on presentation which shocked, highly suspicious for line- related sepsis, resolved - Has had the chronic femoral permacath in place, removed Previous treatment for recent staph epi and bryon sepsis, completed treatment July 11 ESRD, on HD, MWF Known PVD Hx central venous occlusion Recurrent episodes of hypoglycemia RECOMMENDATION Cefepime Also on Diflucan and got dose of Vancomycin D/W Dr peterson - needs to remove his groin line Monitor progress Follow temps Elevate LUE - patient again instructed on need to do LUE elevation Follow C/S Explained plan to the patient D/W Louann Hart MD Sep 12, 2017 10:34
[2017-09-12] MEDS: HEPARIN-D5W 25,000 U/250 ML 250 ML IV PRN (10:42)
[2017-09-12] MEDS ORDERED: CEFEPIME INJ 2,000 MG in SODIUM CHLORIDE 0.9% INJ 100 ML IV SCH (11:00)
--- NOTE | 2017-09-12 11:26 | HHI.NPPN ---
Subjective History of Present Illness This patient is a 46-year-old male with a history of end-stage renal disease, SLE, hypertension, peripheral vascular disease as well as secondary hyperparathyroidism of renal disease. Unfortunately the patient has had multiple dialysis accesses including dialysis shunts and dialysis catheters in the past complicated by access failure as well as infection. Patient now has very limited options for dialysis access. We were relying on a left femoral dialysis line for access. Fortunately vessel surgery was able to create a left arm AV dialysis fistula back in February. We have used the access for dialysis 3 and the patient was scheduled to have his PermCath removed this Tuesday however presented to the dialysis facility with lethargy and pyrexia. Sepsis imost likely recurrence of line infection most likely consideration. Since admission however noted to have GI bleed and upper endoscopy revealed severe gastritis, and duodenum and mention of large bleeding esophageal varices Interval History Noted patient again febrile with blood cultures positive for gram-negative rods. Infectious disease believes infection related to central line being utilized for D10W. Review of Systems Respiratory Lungs: SOB Cardiovascular Cardiac: Edema Objective Data Data Vital Signs Date Time Temp Pulse Resp B/P (MAP) Pulse Ox O2 Delivery O2 Flow Rate FiO2 09/12/17 10:00 94 09/12/17 10:00 99 Nasal Cannula 4.00 09/12/17 08:24 100 Nasal Cannula 4.00 09/12/17 08:00 99 Nasal Cannula 4.00 09/12/17 08:00 93 09/12/17 08:00 98.1 93 12 130/65 (86) 99 09/12/17 06:00 99 09/12/17 06:00 98 Nasal Cannula 4.00 09/12/17 04:00 98 Nasal Cannula 4.00 09/12/17 04:00 98.4 106 24 134/74 (94) 96 09/12/17 04:00 106 09/12/17 02:30 96 Nasal Cannula 4.00 09/12/17 02:00 95 Nasal Cannula 4.00 09/12/17 02:00 104 09/12/17 00:00 103 09/12/17 00:00 99.4 103 16 125/68 (87) 100 09/12/17 00:00 100 Partial Non-Rebreather 15.00 09/11/17 22:00 114 09/11/17 22:00 94 Partial Non-Rebreather 15.00 12/3/17 20:41 96 Partial Rebreather 15.00 09/11/17 20:00 100 Partial Non-Rebreather 15.00 09/11/17 20:00 101.9 117 22 116/56 (76) 100 09/11/17 20:00 117 09/11/17 18:00 Non-Rebreather 15.00 09/11/17 18:00 124 09/11/17 16:00 100.4 131 21 101/51 (68) 98 09/11/17 16:00 131 09/11/17 16:00 Non-Rebreather 15.00 09/11/17 14:00 Non-Rebreather 15.00 09/11/17 14:00 129 09/11/17 12:00 99.6 130 21 112/51 (71) 09/11/17 12:00 Nasal Cannula 2.00 09/11/17 12:00 130 -: 09/11/17 0110 09/10/17 1647 Microbiology 09/11/17 Aerobic Blood Culture - Preliminary, Resulted NO GROWTH IN 1 DAY 09/11/17 Anaerobic Blood Culture - Preliminary, Resulted Gram Negative Dg 09/11/17 Aerobic Blood Culture - Preliminary, Resulted Gram Negative Dg 09/11/17 Anaerobic Blood Culture - Preliminary, Resulted Gram Negative Dg Physical Exam General Appearance: No Acute Distress Eyes Eye Exam: Sclera White Pulmonary Resp Exam: Clear Bilaterally, Breath Sounds Equal, No Distress Cardiology CV Exam: Regular, Normal Sinus Rhythm Gastrointestinal/Abdomen GI Exam: Soft, Non-Tender Integumentary Skin Exam: Clear, Warm Extremeties Extremities Exam: No Edema, Moderate Edema (1+ pitting edema hips and thighs. 2+ pitting edema of left upper extremity.), Pitting Edema, Dependent Edema Neurologic Neuro Exam: Alert, Awake, Speech Clear, Moving All Extremities Psychiatric Psych Exam: Appropriate Responses Assessment/Plan Discussed Condition With: Patient Problem List: (1) End-stage renal disease on hemodialysis ICD Codes: N18.6 - End stage renal disease; Z99.2 - Dependence on renal dialysis Status: Chronic Plan: Continue HD MWF as per outpatient schedule. Transfer to [facility] pending. Medications should be adjusted for the patient's ESRD. Avoid gadolinium. (2) Localized edema ICD Codes: R60.0 - Localized edema Plan: Volume status has improved. Disproportionate edema left upper extremity possibly related to central venous stenosis. Venogram canceled in view of bacteremia. No evidence of a DVT on Doppler earlier this admission (3) Hypoglycemia ICD Codes: E16.2 - Hypoglycemia, unspecified Plan: Patient's hypoglycemia may be related to his end-stage renal disease as clearance of insulin is reduced in the setting of CKD. Patient may possibly also have subclinical hepatic disease coexisting given the fact that he has varices. C-peptide levels can be elevated in the setting of chronic kidney disease secondary to reduced clearance of insulin by the kidney as well as with insulinomas. Would like to be sure that Accu-Cheks are correlating with laboratory glucose levels and I have ordered that any glucose below 75 be checked in the lab. Would like to keep D10W IV infusion rate to a minimum view of the patient's end- stage renal disease. D10W contributing significantly to volume load as well as development of hyponatremia in this patient with end-stage renal disease. Pending transfer to [facility] for further evaluation. Has been accepted, awaiting bed.. It is noted however that there has been possible to taper the D10W down in view of improving blood sugars. (4) Anemia of renal disease ICD Codes: D63.1 - Anemia in chronic kidney disease Status: Chronic Plan: Epo with HD (5) Esophageal varices determined by endoscopy ICD Codes: I85.00 - Esophageal varices without bleeding Status: Resolved Plan: As far as I'm aware the patient has no known history of cirrhosis. Previous hepatitis profile negative. 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 Clarence Merlos MD Sep 12, 2017 11:26
[2017-09-12] MEDS: EPOETIN ALFA 10,000 UNITS/ML VIAL IV PUSH PRN (12:00)
[2017-09-12] MEDS ORDERED: DEXTROSE 50% IN WATER 50 ML VIAL(D50) IV PUSH PRN (12:45)
[2017-09-12] MEDS ORDERED: INSULIN NovoLIN REGULAR SUPPLEMENTAL SCALE SQ SCH (12:45)
[2017-09-12] MEDS ORDERED: GLUCAGON 1 MG/ML VIAL OTHER PRN (12:45)
[2017-09-12 12:47] LABS: APTT (PATIENT) 34.9 SEC (24.3-30.1)
--- NOTE | 2017-09-12 12:47 | HHI.CCPN ---
Subjective Remarks/Hospital Course Hospital Course: This is a 46-year-old AA male. Date of admission . Past medical history includes SLE, lupus nephritis, end-stage renal disease on hemodialysis Tuesday/Tuesday and Tuesday per Dr. Merlos, history of pulmonary embolism/SVC thrombus, peripheral arterial disease, gastroesophageal reflux disease, anemia of chronic kidney disease, anxiety along with hyperphosphatemia. According to mother at bedside, patient started feeling "sick" yesterday become increasingly lethargic. Unknown if febrile/malaise/myalgias. Patient presented to his regular scheduled hemodialysis today where he was hypotensive, tachycardic and febrile. His right AV fistula graft is currently heparinized with syringes intact and in place. In the ED, patient received 1 L normal saline and 1 PRBC. Patient stool guaiac positive. Lactate was 6.6. Patient does have a white cell count. He has a macrocytic anemia and thrombocytopenia. During his last admission was diagnosed with staph epi/coag negative staph bacteremia. He was planned to have his left hemodialysis vascular catheter/femoral removed on Tuesday according to his mother bedside. He was on vancomycin scheduled with hemodialysis and oral Diflucan as an outpatient. Of note his baseline systolic blood pressure is in the 80s. Subjective: 08/13: taken urgently for endoscopy for UGIB. banded active esophageal varices. started on clear liquid diet per GI. lactate bumped this morning, likely secondary to active bleeding, but now bleeding has subsided. patient subjectively feels better than yesterday- currently on HD on my eval. 09/02 patient was awaiting transfer to [facility] for further workup of his hypoglycemic episodes/possible insulinoma however developed Acute respiratory failure Required NRB at 100%. He was transferred [place] [facility] and critical care services were reconsulted. 09/11: Critical care medicine reconsulted for tachycardia with respiratory distress and hypoglycemia despite D10 drip. Patient had been followed by hospitalist service awaiting transfer to [facility]. He has remained on a D10 drip. He was treated with Diflucan and vancomycin for a PermCath infection which had been removed and subsequently had grown out yeast and Corynebacterium. He underwent hemodialysis on 09/10. He has had a left femoral central line and has extremely poor options for vascular access. He developed worsening mental status with hypoglycemia today despite D10 percent and was given D50 IV push 2, glucose on IV and critical care medicine was reconsulted. Patient was tachycardic in the 130s maintaining his blood pressure at the time. He subsequently spiked a fever 104 axillary? Though oral temperature taken shortly after read as 100.4. Blood cultures 2 were obtained from his central line and patient was switched to D 25% at 100 cc an hour for hypoglycemia despite D10 percent running at 100 cc an hour. I also spoke with Dr. Patel covering for ID and have restarted antibiotics for empiric coverage including Diflucan and 1 dose of vancomycin IV. 09/12 Patient is lying in bed in NAD. Receiving HD. Tmax 101.9 last night. On Heparin drip. Objective Vital Signs Date Time Temp Pulse Resp B/P (MAP) Pulse Ox O2 Delivery O2 Flow Rate FiO2 09/12/17 10:00 94 09/12/17 10:00 99 Nasal Cannula 4.00 09/12/17 08:00 98.1 12 130/65 (86) 09/09/17 18:00 21 Intake and Output 09/12/17 09/12/17 09/13/17 08:00 16:00 00:00 Intake Total 1131 ml Output Total 0 ml Balance 1131 ml Result Diagram: 09/11/17 0110 09/10/17 1647 Other Results Laboratory Tests Test 09/11/17 13:55 09/11/17 14:00 09/11/17 17:00 09/11/17 23:00 Troponin I LESS THAN 0.02 NG/ML Blood Gas Puncture Site LT RADIAL Blood Gas Patient Temperature 98.6 Blood Gas HCO3 25 mmol/L Blood Gas Base Excess 1.2 mmol/L Blood Gas Oxygen Saturation 49 % Arterial Blood pH 7.43 Arterial Blood Partial Pressure CO2 39 mmHg Arterial Blood Partial Pressure O2 31 mmHg Arterial Blood Oxygen Content 5.7 Vol % Arterial Blood Carboxyhemoglobin 1.1 % Arterial Blood Methemoglobin 1.5 % Blood Gas Hemoglobin 8.2 G/DL Oxygen Delivery Device MASK Blood Gas Inspired Oxygen 100 % Activated Partial Thromboplast Time 60.0 SEC 36.9 SEC Test 09/12/17 00:30 09/12/17 05:55 09/12/17 11:45 Troponin I LESS THAN 0.02 NG/ML Activated Partial Thromboplast Time 41.4 SEC Imaging Last Impressions Chest X-Ray 09/11/17 0000 Signed Impressions: Service Date/Time: Monday, September 11, 2017 14:10 - CONCLUSION: 1. Stable patchy bilateral lower lung zone airspace disease. 2. No significant neural change. Shmuel Beckett MD Upper Extremity Ultrasound 09/06/17 0000 Signed Impressions: Service Date/Time: Wednesday, September 06, 2017 20:32 - CONCLUSION: 1. Nonocclusive superficial thrombus in the left cephalic vein. No deep venous thrombosis. Hayden Turcios MD Upper Extremity CT 09/02/17 1505 Signed Impressions: Service Date/Time: Saturday, September 02, 2017 17:09 - CONCLUSION: Very impressive soft tissue edema across the forearm. There is fluid between the fascia and the subcutaneous fat. Ehsan Archibald MD Abdomen MRI 08/31/17 0000 Signed Impressions: Service Date/Time: Thursday, August 31, 2017 15:40 - CONCLUSION: 1. Very limited study due to breathing motion artifact which and lack of IV contrast. 2. Atrophic kidneys with multiple tiny cortical cysts. 3. The pancreatic duct is just out of the range of normal measuring 4 mm in diameter. I'm not able to clearly identify an obstructing mass or stone on this limited study. Consideration could be made to a pancreatic protocol CT scan which is less susceptible to motion artifact. Narendra Barreto Jr., MD Abdomen Ultrasound 08/26/17 0000 Signed Impressions: Service Date/Time: Saturday, August 26, 2017 08:06 - CONCLUSION: 1. Kidneys are echogenic which can be seen with medical renal disease. 2. Cholelithiasis. 3. Mild prominence of the main pancreatic duct. Devyn Hickey MD Central Venous Line 08/25/17 0000 Signed Impressions: Service Date/Time: August 14:47 - CONCLUSION: Uncomplicated line placement as above. Tavares Ventura MD Objective Remarks GENERAL: 46-year-old AA male, currently resting in bed in NAD SKIN: Warm and dry. HEAD: Atraumatic. Normocephalic. EYES: Pupils equal and round about 3 mm bilaterally and reactive. No scleral icterus. No injection or drainage. ENT: No nasal bleeding or discharge. Mucous membranes pink and moist. Oropharynx without erythema NECK: Trachea midline. No JVD. CARDIOVASCULAR: Tachycardic, RR. RESPIRATORY: Good air entry bilaterally, scattered rhonchi, no wheezing or crackles. GASTROINTESTINAL: Abdomen soft, non-tender, nondistended. MUSCULOSKELETAL: bilateral fxott-cnn-ddyn amputation. Left upper extremity edema Neuro: Awake, alert Procedures EGD PROCEDURE REPORT EXAM DATE: 08/13/2017 INDICATIONS: The patient is a 46 yr old male here for an EGD due to melena PROCEDURE PERFORMED: EGD w/ band ligation of varices MEDICATIONS: None and Per Anesthesia. TOPICAL ANESTHETIC: none CONSENT: The patient understands the risks and benefits of the procedure and understands that these risks include, but are not limited to: sedation, allergic reaction, infection, perforation and/or bleeding. Alternative means of evaluation and treatment include, among others: physical exam, x-rays, and/or surgical intervention. The patient elects to proceed with this endoscopic procedure. medical equipment was checked for proper function. Hand hygiene and appropriate measures for infection prevention was taken. After the risks, benefits and alternatives of the procedure were thoroughly explained, Informed consent was verified, confirmed and timeout was successfully executed by the treatment team. The patient was anesthetized with topical anesthesia and the Pentax [id number] endoscope was introduced through the mouth and advanced to the second portion of the duodenum. Retroflexion was performed and was normal The gastroscope was then slowly withdrawn and removed. ESOPHAGUS: There were large varices in the middle third of the esophagus and lower third esophagus. The varices were bleeding intermittently with spurting spot , 6 bands applied and bleeding controlled. STOMACH: There was severe and erosive gastritis in the entire examined stomach. DUODENUM: Multiple large shallow erosions were found in the duodenal bulb and 2nd part duodenum. ADVERSE EVENTS: There were no complications. IMPRESSIONS: 1. Bleeding Esophageal varices, with active bleeding identified, 6 bands applied to controll the bleeding 2. There was gastritis in the entire examined stomach 3. Multiple large erosions were found in the duodenal bulb and 2nd part duodenum RECOMMENDATIONS: Continue PPI , start Octreotide, PATIENT CONDITION: stable DISPOSITION: Observation REPEAT EXAM: Return 4 weeks EGD Chon Rodriguez MD 08/13/2017 1:38 PM A/P Assessment and Plan 46-year-old gentleman with ESRD who was originally admitted with tunneled perm- a-cath infection, severe sepsis, and active upper GI bleed s/p urgent endoscopy and esophageal banding. The patient was transferred to [facility] floor however prior discharge his sugars were found to be extremely low. The patient was awaiting the transfer to [facility] for further workup by composite bond technician, when he developed acute respiratory distress, hypoglycemia despite D10 percent and fever with suspected recurrence of sepsis Neuro/Psych: Anxiety disorder NOS Acute toxic metabolic encephalopathy likely secondary to recurrent hypoglycemia/ severe sepsis Continue alprazolam 1 mg every 8 hours when necessary anxiety Acetaminophen 650 mg every 6 hours when necessary fever Noted allergy to morphine sulfate CV: Coronary artery disease status post stent PAD Monitor HR and BP keep MAP>65mmHg Echocardiogram 04/25 revealed EF 55-60%. Mild left ventricular hypertrophy. Trace TR. Resp: Acute respiratory failure Asthma? Chronic bibasilar opacification Continue with oxygen keep sat >92% Incentive spirometry while awake Albuterol/ipratropium aerosols every 6 hours with albuterol aerosols every 2 hours when necessary for Dyspnea GI: Elevated AST Gastroesophageal reflux disease GI bleed on admission On PO renal diet Continue pantoprazole Docusate sodium/senna 1 tablet twice a day for bowel regimen GI is following : No indication for Monroy catheter Endo: Recent hydrocortisone use Recurrent hypoglycemia SSI for glycemic control Renal: End-stage renal disease on chronic intermittent hemodialysis Tuesday/Tuesday and Tuesday secondary to lupus nephritis Hyperphosphatemia Monitor renal function, avoid nephrotoxins. HD today Renal -Dr. Merlos Heme: Macrocytic anemia Anemia of chronic kidney disease and acute blood loss Thrombocytopenia Hypercoagulable state On chronic warfarin therapy. Last evaluation in [address] Oreilly. At that time workup negative except for low protein S. Did not recommend repeating. Recommended lifelong anticoagulation due to history of PE/ DVT/SVC thrombus etc. Daily CBC/coags. Transfuse as clinically indicated to maintain hemoglobin greater than 7 Monitor CBC, coags ID: Severe sepsis Recent staph epi/coag negative staph bacteremia history of enterococcus right upper extremity wound Gram negative bacteremia/ Kleb pneumonia- ESBL Continue with abx per ID ( Cefepime changed to Merrem, Diflucan) monitor for signs of infections ( Fever, WBC) Check BC x 2 sets today 09/11 BC: GNR x 2 sets. Patient has very bad PVD will discuss with IR about placing new line and d/c femoral line Has a left femoral central line in place since 08/26 however this has not been able to be replaced due to poor vascular access and may require interventional radiology to place central line. Discussed with IR patient has history of b/l occluded jugular veins and right femoral vein will try to find new site if not will do vacular exchange. Patient being followed by ID. Recently was treated for infected PermCath which had been removed and grew out yeast and Corynebacterium. tunneled vas cath removed 08/12. MSK/Rheum: SLE positive History bilateral [id number]-[id number] amputation's Right second/third finger amputation Left upper extremity edema - cellulitis? Currently not on any long-term medication for SLE. PT evaluate and treat Endo Place on SSI with accuchecks Q4h, on Cortef 10mg daily Prophylaxis - GI - pantoprazole - DVT - SCD/heparin drip Lines: left femoral CVP placed 08/26 Level 3 Dania Greco MD Sep 12, 2017 12:47
[2017-09-12] MEDS ORDERED: methylPREDNISolone SOD SUCC 125 MG/2 ML VIAL IV PUSH ONE (13:30)
[2017-09-12 14:32] LABS: AUTOMATED NEUTROPHIL # 20.4 TH/MM3 (1.8-7.7); HEMATOCRIT 24.8 % (39.0-51.0); HEMO FLAGS DIFF FINAL; LYMPH % 1.4 % (9.0-44.0); LYMPHOCYTE # 0.3 TH/MM3 (1.0-4.8); MEAN CELL VOLUME 89.6 FL (80.0-100.0); MEAN CORPUSCULAR HEMOGLOBIN 28.8 PG (27.0-34.0); MEAN CORPUSCULAR HGB CONC 32.1 % (32.0-36.0); MONO % 7.8 % (0.0-8.0); NEUT % 90.8 % (16.0-70.0); PLATELET COUNT 173 TH/MM3 (150-450); RED BLOOD COUNT 2.77 MIL/MM3 (4.50-5.90); RED CELL DISTRIBUTION WIDTH 21.2 % (11.6-17.2); WHITE BLOOD COUNT 22.5 TH/MM3 (4.0-11.0)
[2017-09-12 14:50] LABS: INTERNATIONAL NORMALIZED RATIO 1.3 RATIO; PROTHROMBIN TIME - PATIENT 12.9 SEC (9.8-11.6)
[2017-09-12 14:55] LABS: BICARBONATE 30.9 MEQ/L (21.0-32.0); POTASSIUM 3.6 MEQ/L (3.5-5.1)
[2017-09-12] MEDS ORDERED: MISCELLANEOUS PHARMACY INFORMATION XX PRN (15:15)
[2017-09-12] MEDS ORDERED: ASP: Documented ESBL, MDR A baumannii or P. aeruginosa PRN (15:15)
--- NOTE | 2017-09-12 16:30 | RADRPT ---
EXAM DATE/TIME: 09/12/2017 16:26 [place] COMPARISON: CENTRAL VENOUS CATHETER REPLACEMENT, LT, June 14, 2017, 15:54. INDICATIONS : Patient presents with end-stage renal disease in need of central line placement. MEDICAL HISTORY : Lupus Nephritis ESRD on hemodialysis Pulmonary embolism SVC thrombus PAD GERD Anemia CAD Hyperphosphatemia Asthma SURGICAL HISTORY : Bilateral BKA Bilateral upper extremity AVF Multiple dialysis catheter placement and removal ENCOUNTER: Subsequent ACUITY: 1 month PAIN SCORE: 4/10 LOCATION: Bilateral low back FLUORO TIME: 1.1 minutes IMAGE SERIES: 1 ACCESS: Left vein DEVICE(S): 1.) 7 [place] triple lumen 20 cm ABX coated catheter PROCEDURE : 1. Fluoroscopically guided central venous catheter exchange. The risks, benefits and alternatives to the procedure were explained and verbal and written consent w as obtained. The site was prepped in sterile fashion. Full sterile technique was used, including ca p, mask, sterile gloves and gown and a large sterile sheet. Hand hygiene and 2% chlorhexidine prep w as utilized per protocol for cutaneous antisepsis with appropriate dry time for site. The skin and s ubcutaneous tissues were infiltrated with local anesthetic solution. With fluoroscopic guidance a previously placed central venous catheter was exchanged for the prescrib ed catheter as above. Post procedure image demonstrates satisfactory position of the tube. The cath eter was sutured in place. CONCLUSION: Uncomplicated venous catheter change as above. Kevin Ireland MD on September 12, 2017 at 16:27 Board Certified Radiologist. This report was verified electronically.
[2017-09-12] MEDS: FLUCONAZOLE 200 MG PREMIX BAG 100 ML IV SCH (17:26)
[2017-09-12] MEDS: MEROPENEM INJ 500 MG in SODIUM CHLORIDE 0.9% INJ 100 ML IV SCH (18:18)
--- NOTE | 2017-09-12 19:53 | EKG ---
Date Performed: 09/11/2017 Time Performed: 14:07:06 PTAGE: 47 years EKG: SINUS TACHYCARDIA NONSPECIFIC T-WAVE ABNORMALITY Since previous tracing, no significant nany nge noted ABNORMAL RHYTHM ECG PREVIOUS TRACING : 09/03/2017 09.34 DOCTOR: Azam Boyce Interpretating Date/Time 09/12/2017 19:51:49
[2017-09-12 21:06] LABS: APTT (PATIENT) 34.4 SEC (24.3-30.1)
[2017-09-12] MEDS: LORATADINE 10 MG TAB PO SCH (21:43)
[2017-09-13] VITALS (14 sets, daily range): BP systolic 93–139; BP diastolic 50–73; PULSE 87–101; RESP 13–27; TEMP 97.5–99.5; O2SAT 89–98
[2017-09-13] MEDS: SODIUM CHLORIDE 23.4% INJ 154 MEQ in DEXTROSE 10% INJ 1,000 ML IV SCH ×2 (05:12→15:46)
[2017-09-13 05:44] LABS: APTT (PATIENT) 31.6 SEC (24.3-30.1)
[2017-09-13 05:45] LABS: BASOPHIL % 0.1 % (0.0-2.0); HEMATOCRIT 22.2 % (39.0-51.0); HEMO FLAGS DIFF FINAL; LYMPH % 2.1 % (9.0-44.0); LYMPHOCYTE # 0.3 TH/MM3 (1.0-4.8); MEAN CORPUSCULAR HEMOGLOBIN 29.1 PG (27.0-34.0); MEAN CORPUSCULAR HGB CONC 32.3 % (32.0-36.0); MONO % 4.7 % (0.0-8.0); NEUT % 93.1 % (16.0-70.0); PLATELET COUNT 157 TH/MM3 (150-450); RED BLOOD COUNT 2.47 MIL/MM3 (4.50-5.90); RED CELL DISTRIBUTION WIDTH 21.2 % (11.6-17.2)
[2017-09-13] MEDS: MEROPENEM INJ 500 MG in SODIUM CHLORIDE 0.9% INJ 100 ML IV SCH ×2 (05:49→17:33)
[2017-09-13 06:11] LABS: BICARBONATE 28.6 MEQ/L (21.0-32.0); POTASSIUM 4.4 MEQ/L (3.5-5.1)
[2017-09-13] MEDS: HYDROCORTISONE 10 MG TAB PO SCH (08:37)
[2017-09-13] MEDS: PANTOPRAZOLE SOD 40 MG DELAYED RELEASE TAB PO SCH ×2 (08:37→21:05)
[2017-09-13] MEDS: CALCIUM ACETATE 667 MG CAP PO SCH ×3 (08:37→17:33)
[2017-09-13] MEDS: SODIUM CHLORIDE 0.9% FLUSH 10 ML FLUSH IV FLUSH SCH ×3 (09:00→21:07)
[2017-09-13] MEDS: POLYETHYLENE GLYCOL 17 GM PKG PO SCH (09:00)
[2017-09-13] MEDS: DOCUSATE SODIUM 50 MG/SENNA 8.6 MG TAB PO SCH ×2 (09:00→21:06)
--- NOTE | 2017-09-13 10:14 | HHI.IDPN ---
Subjective Subjective Remarks Patient is a 46-year-old male, presented to the hospital for further evaluation of hypotension. He has known end-stage renal disease, and gets hemodialysis every Tuesday and Tuesday. He was in the dialysis clinic and he was found to be febrile, hypotensive, and tachycardic. He completed his treatment, and he was advised to go to the hospital for further evaluation and treatment. Patient currently has been having fevers since his been in the emergency room. He is also complaining of being sick to his stomach, and has had some nausea. Denies any abdominal pain. He denies any respiratory complaint. Patient has known central venous occlusion, and the only patent venous access for dialysis has been in his left femoral groin. During his last admission in June, he was treated for staph epidermides and Bryon proptosis sepsis. He was supposed to complete treatment till July 11. The catheter was exchanged during that admission. Patient has a right upper extremity AV fistula, and it was evaluated by the vascular surgeon when he was discharged from the hospital, and the last 3 dialysis, his AV fistula has been used. Patient also during his last admission had problem with hypoglycemia and his workup was negative at that time. Infectious disease consultation has been requested to evaluate the patient. Initial evaluation, patient was treated for sepsis due to the permacath. The permacath was removed Culture from the permacath showed yeast and corynebacterium. He completed Diflucan and Vanco. Notes reviewed D/W RN Temps better Had exchange of hie L groin TLC yesterday BC with GNR 09/11 and 09/12 No new complaint Breathing is okay, on nasal O2 BP ok, not on pressors Has central line L groin placed 08/25 Antibiotics Current Medications Merem Diflucan Vancomycin x1 09/11 Medications (Trade) Dose Ordered Sig/Nohelia Route Start Time Stop Time Status Last Admin (NS Flush) 2 ml UNSCH PRN IV FLUSH 08/12/17 11:45 08/31/17 14:50 (NS Flush) 2 ml BID IV FLUSH 08/12/17 21:00 09/12/17 08:19 (Tylenol) 650 mg Q6H PRN PO 08/12/17 11:45 08/29/17 18:25 (Zofran Inj) 4 mg Q6H PRN IV PUSH 08/12/17 11:45 08/15/17 13:52 (Albuterol Neb) 2.5 mg Q2HR NEB PRN INH 08/12/17 11:45 09/11/17 20:41 Miscellaneous Information 1 Q361D XX 08/12/17 11:45 (Angelika-Colace) 1 tab BID PO 08/12/17 21:00 09/12/17 21:43 (Milk Of Magnesia Liq) 30 ml Q12H PRN PO 08/12/17 11:45 (Senokot) 17.2 mg Q12H PRN PO 08/12/17 11:45 08/27/17 13:22 (Dulcolax Supp) 10 mg DAILY PRN RECTAL 08/12/17 11:45 (Lactulose Liq) 30 ml DAILY PRN PO 08/12/17 11:45 (Proamatine) 10 mg TID@07,,17 PO 08/12/17 12:00 Future Hold 09/08/17 05:24 (Xanax) 1 mg Q8H PRN PO 08/12/17 12:00 09/02/17 20:53 (Brethine Inj) 1 mg UNSCH PRN SQ 08/12/17 12:00 08/13/17 03:13 (Phoslo) 1,334 mg TID PO 08/15/17 13:00 09/13/17 08:37 (Epogen Inj) 10,000 units UNSCH PRN IV PUSH 08/16/17 10:15 09/12/17 12:00 (Protonix) 40 mg Q12HR PO 08/18/17 21:00 09/13/17 08:37 Heparin Sodium/ Dextrose 250 ml @ 14 mls/hr TITRATE PRN IV 08/24/17 17:00 09/12/17 10:42 ([place] 5-325 Mg) 1 tab Q4H PRN PO 08/24/17 17:00 09/07/17 23:54 ([place] 10-325 Mg) 1 tab Q4H PRN PO 08/24/17 17:00 09/10/17 21:36 (NS Flush) DAILY IV FLUSH 08/26/17 09:00 09/12/17 08:19 (NS Flush) UNSCH PRN IV FLUSH 08/25/17 14:45 (Cortef) 10 mg DAILY PO 08/27/17 09:00 09/13/17 08:37 (Claritin) 10 mg HS PO 08/28/17 21:00 09/12/17 21:43 (Miralax) 17 gm DAILY PO 09/04/17 10:00 09/10/17 09:13 Sodium Chloride 1,000 ml @ 0 mls/hr Q0M PRN OTHER 09/08/17 18:51 09/12/17 12:00 Sodium Chloride 1,000 ml @ 200 mls/hr Q5H PRN IV 09/08/17 18:51 Sodium Chloride 1,000 ml @ 0 mls/hr Q0M PRN OTHER 09/08/17 18:51 (Mannitol Inj) 12.5 gm UNSCH PRN IV 09/08/17 19:00 Albumin Human 100 ml @ 60 mls/hr UNSCH PRN IV 09/08/17 19:00 (NS Flush) 5 ml UNSCH PRN IV FLUSH 09/08/17 19:00 (Heparin Inj) UNSCH PRN .XX 09/08/17 19:00 (Gentamicin (Dialysis) Inj) 20 mg UNSCH PRN OTHER 09/08/17 19:00 (Zofran Inj) 4 mg UNSCH PRN IV PUSH 09/08/17 19:00 (Tylenol) 650 mg UNSCH PRN PO 09/08/17 19:00 (Benadryl) 25 mg UNSCH PRN PO 09/08/17 19:00 09/10/17 23:34 (Nitrostat Sl) 0.4 mg UNSCH PRN SL 09/08/17 19:00 (Catapres) 0.1 mg UNSCH PRN PO 09/08/17 19:00 (Gelfoam 12 Mm/7 Mm Top) 1 foam UNSCH PRN TOP 09/08/17 19:00 09/12/17 12:00 (Norvasc) 10 mg DAILY PO 09/09/17 09:00 09/13/17 08:37 (Apresoline Inj) 10 mg Q30M PRN IV PUSH 09/08/17 20:15 Sodium Chloride 154 meq/Dextrose 1,038.5 ml @ 70 mls/hr [id number] IV 09/10/17 16:00 09/13/17 05:12 Fluconazole/ Sodium Chloride 100 ml @ 100 mls/hr Q24H IV 09/11/17 17:00 09/12/17 17:26 (D50w (Vial) Inj) 50 ml UNSCH PRN IV PUSH 09/12/17 12:45 (Glucagon Inj) 1 mg UNSCH PRN OTHER 09/12/17 12:45 (ASP Crit: Doc ESBL, MDR A baumannii or P aer) 1 UNSCH X1 PRN .XX 09/12/17 15:15 09/13/17 15:14 ([facility]) 1 UNSCH X1 PRN XX 09/12/17 15:15 09/13/17 15:14 Meropenem 500 mg/ Sodium Chloride 100 ml @ 200 mls/hr Q12H IV 09/12/17 18:00 09/13/17 05:49 Lines L groin TLC - 08/25, exchange 09/12 Past Medical History Reviewed Allergies: Coded Allergies: iodine (Unverified Allergy, Severe, blisters, 08/12/17) morphine (Unverified Allergy, Severe, Itching, 08/12/17) potassium iodide (Unverified Allergy, Severe, blisters, 08/12/17) povidone-iodine (Unverified Allergy, Severe, blisters, 08/12/17) sodium iodide (Unverified Allergy, Severe, blisters, 08/12/17) sodium iodide (Unverified Allergy, Severe, blisters, 08/12/17) Objective . Vital Signs Date Time Temp Pulse Resp B/P (MAP) Pulse Ox O2 Delivery O2 Flow Rate FiO2 09/13/17 07:00 Nasal Cannula 4.00 09/13/17 06:00 90 09/13/17 04:00 88 09/13/17 04:00 98.6 88 27 126/58 (80) 89 09/13/17 02:00 89 09/13/17 00:00 98.5 93 16 99/55 (70) 96 09/13/17 00:00 93 09/12/17 22:00 98 09/12/17 20:00 92 Nasal Cannula 3.00 09/12/17 20:00 97 09/12/17 20:00 98.3 89 18 129/60 (83) 92 09/12/17 19:37 99 Nasal Cannula 4.00 09/12/17 18:00 100 09/12/17 16:00 100 09/12/17 16:00 99.0 100 16 110/57 (74) 94 09/12/17 14:00 116 09/12/17 12:00 98.2 100 18 131/63 (85) 94 09/12/17 12:00 100 . Laboratory Tests Test 09/12/17 13:45 09/13/17 05:00 White Blood Count 22.5 TH/MM3 15.0 TH/MM3 Red Blood Count 2.77 MIL/MM3 2.47 MIL/MM3 Hemoglobin 8.0 GM/DL 7.2 GM/DL Hematocrit 24.8 % 22.2 % Mean Corpuscular Volume 89.6 FL 90.0 FL Mean Corpuscular Hemoglobin 28.8 PG 29.1 PG Mean Corpuscular Hemoglobin Concent 32.1 % 32.3 % Red Cell Distribution Width 21.2 % 21.2 % Platelet Count 173 TH/MM3 157 TH/MM3 Mean Platelet Volume 8.8 FL 9.5 FL Neutrophils (%) (Auto) 90.8 % 93.1 % Lymphocytes (%) (Auto) 1.4 % 2.1 % Monocytes (%) (Auto) 7.8 % 4.7 % Eosinophils (%) (Auto) 0.0 % 0.0 % Basophils (%) (Auto) 0.0 % 0.1 % Neutrophils # (Auto) 20.4 TH/MM3 14.0 TH/MM3 Lymphocytes # (Auto) 0.3 TH/MM3 0.3 TH/MM3 Monocytes # (Auto) 1.8 TH/MM3 0.7 TH/MM3 Eosinophils # (Auto) 0.0 TH/MM3 0.0 TH/MM3 Basophils # (Auto) 0.0 TH/MM3 0.0 TH/MM3 CBC Comment DIFF FINAL DIFF FINAL Differential Comment Laboratory Tests Test 09/11/17 13:55 09/12/17 00:30 09/12/17 13:45 09/13/17 05:00 Troponin I LESS THAN 0.02 NG/ML LESS THAN 0.02 NG/ML Blood Urea Nitrogen 27 MG/DL 42 MG/DL Creatinine 5.22 MG/DL 6.51 MG/DL Random Glucose 103 MG/DL 112 MG/DL Calcium Level 8.6 MG/DL 8.1 MG/DL Sodium Level 133 MEQ/L 136 MEQ/L Potassium Level 3.6 MEQ/L 4.4 MEQ/L Chloride Level 92 MEQ/L 96 MEQ/L Carbon Dioxide Level 30.9 MEQ/L 28.6 MEQ/L Anion Gap 10 MEQ/L 11 MEQ/L Estimat Glomerular Filtration Rate 14 ML/MIN 11 ML/MIN Microbiology Date/Time Source Procedure Growth Status 09/12/17 17:25 Blood Line Aerobic Blood Culture Pending Received 09/12/17 17:25 Blood Line Anaerobic Blood Culture Pending Received 09/12/17 17:25 Blood Line Aerobic Blood Culture Pending Received 09/12/17 17:25 Blood Line Anaerobic Blood Culture Pending Received 09/12/17 16:20 Blood Peripheral Aerobic Blood Culture - Preliminary Gram Negative Dg Resulted 09/12/17 16:20 Blood Peripheral Anaerobic Blood Culture Pending Resulted 09/12/17 16:15 Blood Peripheral Aerobic Blood Culture - Preliminary Gram Negative Dg Resulted 09/12/17 16:15 Blood Peripheral Anaerobic Blood Culture Pending Resulted 09/11/17 19:56 Blood Peripheral Aerobic Blood Culture - Preliminary Gram Negative Dg Resulted 09/11/17 19:56 Anaerobic Blood Culture - Preliminary Gram Negative Dg Resulted 09/11/17 13:55 Blood Line Aerobic Blood Culture - Preliminary Klebsiella Pneumoniae Resulted 09/11/17 13:55 Anaerobic Blood Culture - Preliminary Klebsiella Pneumoniae Esbl Pos Resulted 09/12/17 15:30 Catheter Tip Central Venous Line Wound Culture Pending Received Imaging RADIOLOGY STUDIES/FILMS REVIEWED Chest X-Ray 09/11/17 0000 Signed Impressions: Service Date/Time: Monday, September 11, 2017 14:10 - CONCLUSION: 1. Stable patchy bilateral lower lung zone airspace disease. 2. No significant neural change. Shmuel Beckett MD Upper Extremity Ultrasound 09/06/17 0000 Signed Impressions: Service Date/Time: Wednesday, September 06, 2017 20:32 - CONCLUSION: 1. Nonocclusive superficial thrombus in the left cephalic vein. No deep venous thrombosis. Hayden Turcios MD Upper Extremity CT 09/02/17 1505 Signed Impressions: Service Date/Time: Saturday, September 02, 2017 17:09 - CONCLUSION: Very impressive soft tissue edema across the forearm. There is fluid between the fascia and the subcutaneous fat. Ehsan Archibald MD Chest X-Ray 09/02/17 0000 Signed Impressions: Service Date/Time: Saturday, September 02, 2017 16:00 - CONCLUSION: Stable mild diffuse vascular prominence similar to previous study. Small amounts of air space disease both lung bases left greater than right unchanged. Ehsan Archibald MD Abdomen MRI 08/31/17 0000 Signed Impressions: Service Date/Time: Thursday, August 31, 2017 15:40 - CONCLUSION: 1. Very limited study due to breathing motion artifact which and lack of IV contrast. 2. Atrophic kidneys with multiple tiny cortical cysts. 3. The pancreatic duct is just out of the range of normal measuring 4 mm in diameter. I'm not able to clearly identify an obstructing mass or stone on this limited study. Consideration could be made to a pancreatic protocol CT scan which is less susceptible to motion artifact. Narendra Barreto Jr., MD Abdomen Ultrasound 08/26/17 0000 Signed Impressions: Service Date/Time: Saturday, August 26, 2017 08:06 - CONCLUSION: 1. Kidneys are echogenic which can be seen with medical renal disease. 2. Cholelithiasis. 3. Mild prominence of the main pancreatic duct. Devyn Hickey MD Central Venous Line 08/25/17 0000 Signed Impressions: Service Date/Time: August 14:47 - CONCLUSION: Uncomplicated line placement as above. Tavares Ventura MD Chest X-Ray 08/12/17 0910 Signed Impressions: Service Date/Time: Saturday, August 12, 2017 09:25 - CONCLUSION: 1. Stable scattered patchiness bilaterally. Chon Nye MD Central Venous Line 08/12/17 0000 Signed Impressions: Service Date/Time: Saturday, August 12, 2017 00:00 - CONCLUSION: Uncomplicated Permcath removal. Shmuel Beckett MD Physical Exam GENERAL: awake and alert, NAD SKIN: Warm and very dry. No generalized rash HEAD: Atraumatic. Normocephalic. No temporal wasting, or tenderness. EYES: [place] conjunctiva. No petechia or hemorrhage. Pupils equal, round and reactive to light. Extraocular movements full and intact. No scleral icterus. EARS, NOSE AND THROAT: Nose without bleeding or purulent nasal discharge. Mucous membranes pink and moist. No oral lesions noted. NECK: Trachea midline. Supple and not tender, no meningeal signs CARDIOVASCULAR: Regular rate and rhythm. No murmurs, rubs or gallops heard RESPIRATORY: Clear to auscultation. Breath sounds equal bilaterally. No rales , wheezing or rhonchi ABDOMEN: Soft, non-tender, nondistended. Bowel sounds present and normoactive. No guarding. No rebound. No organomegaly. EXTREMITIES: No clubbing, cyanosis, or edema. Has bilateral BKA, with a well- healed stump. LUE - improving swelling, has areas that are more indurated but not tender, not red and skin desquamating in whole LUE. RUE AVF ok. Central line L groin looks ok NEUROLOGICAL: Non-focal PSYCHIATRIC: Normal affect, calm and cooperative. LINE: L groin central line with no evidence of infection Assessment & Plan Remarks IMPRESSION New fevers, source? now with GNR in BC - very worrisome that it is from his groin line - line exchange done 09/12 GNR sepsis, likely line related S/P Rx cellulitis LUE, better; swelling better Sepsis syndrome on presentation which shocked, highly suspicious for line- related sepsis, resolved - Has had the chronic femoral permacath in place, removed Previous treatment for recent staph epi and bryon sepsis, completed treatment July 11 ESRD, on HD, MWF Known PVD Hx central venous occlusion Recurrent episodes of hypoglycemia RECOMMENDATION Continue Merem Also on Diflucan Got dose of Vancomycin 09/11 Follow C/S Monitor progress Follow temps Elevate LUE - patient again instructed on need to do LUE elevation D/W RN Spoke with Dr Merlos (Nephrology) Louann Barney MD Sep 13, 2017 10:14
[2017-09-13] MEDS ORDERED: EPOETIN ALFA 10,000 UNITS/ML VIAL IV PUSH PRN (10:15)
--- NOTE | 2017-09-13 10:25 | HHI.NPPN ---
Subjective History of Present Illness This patient is a 46-year-old male with a history of end-stage renal disease, SLE, hypertension, peripheral vascular disease as well as secondary hyperparathyroidism of renal disease. Unfortunately the patient has had multiple dialysis accesses including dialysis shunts and dialysis catheters in the past complicated by access failure as well as infection. Patient now has very limited options for dialysis access. We were relying on a left femoral dialysis line for access. Fortunately vessel surgery was able to create a left arm AV dialysis fistula back in February. We have used the access for dialysis 3 and the patient was scheduled to have his PermCath removed this Tuesday however presented to the dialysis facility with lethargy and pyrexia. Sepsis imost likely recurrence of line infection most likely consideration. Since admission however noted to have GI bleed and upper endoscopy revealed severe gastritis, and duodenum and mention of large bleeding esophageal varices Interval History Patient with no verbal complaints today. Review of Systems Respiratory Lungs: SOB Cardiovascular Cardiac: Edema Objective Data Data Vital Signs Date Time Temp Pulse Resp B/P (MAP) Pulse Ox O2 Delivery O2 Flow Rate FiO2 09/13/17 10:00 88 09/13/17 08:00 88 09/13/17 08:00 98.8 87 25 126/69 (88) 93 09/13/17 07:00 Nasal Cannula 4.00 09/13/17 06:00 90 09/13/17 04:00 88 09/13/17 04:00 98.6 88 27 126/58 (80) 89 09/13/17 02:00 89 09/13/17 00:00 98.5 93 16 99/55 (70) 96 09/13/17 00:00 93 09/12/17 22:00 98 09/12/17 20:00 92 Nasal Cannula 3.00 09/12/17 20:00 97 09/12/17 20:00 98.3 89 18 129/60 (83) 92 09/12/17 19:37 99 Nasal Cannula 4.00 09/12/17 18:00 100 09/12/17 16:00 100 09/12/17 16:00 99.0 100 16 110/57 (74) 94 09/12/17 14:00 116 09/12/17 12:00 98.2 100 18 131/63 (85) 94 09/12/17 12:00 100 -: 09/13/17 0500 09/13/17 0500 Microbiology 09/12/17 Aerobic Blood Culture, Received Pending 09/12/17 Anaerobic Blood Culture, Received Pending 09/12/17 Aerobic Blood Culture, Received Pending 09/12/17 Anaerobic Blood Culture, Received Pending 09/12/17 Aerobic Blood Culture - Preliminary, Resulted Gram Negative Dg 09/12/17 Anaerobic Blood Culture, Resulted Pending 09/12/17 Aerobic Blood Culture - Preliminary, Resulted Gram Negative Dg 09/12/17 Anaerobic Blood Culture, Resulted Pending 09/12/17 Wound Culture, Received Pending Physical Exam General Appearance: No Acute Distress Eyes Eye Exam: Sclera White Pulmonary Resp Exam: Clear Bilaterally, Breath Sounds Equal, No Distress Cardiology CV Exam: Regular, Normal Sinus Rhythm Gastrointestinal/Abdomen GI Exam: Soft, Non-Tender Integumentary Skin Exam: Clear, Warm Extremeties Extremities Exam: No Edema, Moderate Edema (1+ pitting edema hips and thighs and left upper extremity.), Pitting Edema, Dependent Edema Neurologic Neuro Exam: Alert, Awake, Speech Clear, Moving All Extremities Psychiatric Psych Exam: Appropriate Responses Assessment/Plan Discussed Condition With: Patient Problem List: (1) End-stage renal disease on hemodialysis ICD Codes: N18.6 - End stage renal disease; Z99.2 - Dependence on renal dialysis Status: Chronic Plan: Patient's volume overload and edema are improving but there is still significant fluid retention today. Hemodialysis again today for further fluid removal. Patient is complaining of some dyspnea. Glucoses improved per laboratory results. Will taper D10W further to 70 mL milliliters per hour to try to reduce fluid load. Transfer to [facility] pending. Medications should be adjusted for the patient's ESRD. Avoid gadolinium. (2) Localized edema ICD Codes: R60.0 - Localized edema Plan: Volume status has improved. Disproportionate edema left upper extremity possibly related to central venous stenosis. Venogram canceled in view of bacteremia. No evidence of a DVT on Doppler earlier this admission (3) Hypoglycemia ICD Codes: E16.2 - Hypoglycemia, unspecified Plan: Patient's hypoglycemia may be related to his end-stage renal disease as clearance of insulin is reduced in the setting of CKD. Patient may possibly also have subclinical hepatic disease coexisting given the fact that he has varices. C-peptide levels can be elevated in the setting of chronic kidney disease secondary to reduced clearance of insulin by the kidney as well as with insulinomas. Would like to be sure that Accu-Cheks are correlating with laboratory glucose levels and I have ordered that any glucose below 75 be checked in the lab. Would like to keep D10W IV infusion rate to a minimum view of the patient's end- stage renal disease. D10W contributing significantly to volume load as well as development of hyponatremia in this patient with end-stage renal disease. Pending transfer to [facility] for further evaluation. Has been accepted, awaiting bed.. It is noted however that there has been possible to taper the D10W down in view of improving blood sugars. (4) Anemia of renal disease ICD Codes: D63.1 - Anemia in chronic kidney disease Status: Chronic Plan: Increase Epogen as ordered. (5) Esophageal varices determined by endoscopy ICD Codes: I85.00 - Esophageal varices without bleeding Status: Resolved Plan: As far as I'm aware the patient has no known history of cirrhosis. Previous hepatitis profile negative. 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 Clarence Merlos MD Sep 13, 2017 10:25
[2017-09-13 11:42] LABS: APTT (PATIENT) 39.2 SEC (24.3-30.1)
--- NOTE | 2017-09-13 14:36 | HHI.CCPN ---
Subjective Remarks/Hospital Course Hospital Course: This is a 46-year-old AA male. Date of admission . Past medical history includes SLE, lupus nephritis, end-stage renal disease on hemodialysis Tuesday/Tuesday and Tuesday per Dr. Merlos, history of pulmonary embolism/SVC thrombus, peripheral arterial disease, gastroesophageal reflux disease, anemia of chronic kidney disease, anxiety along with hyperphosphatemia. According to mother at bedside, patient started feeling "sick" yesterday become increasingly lethargic. Unknown if febrile/malaise/myalgias. Patient presented to his regular scheduled hemodialysis today where he was hypotensive, tachycardic and febrile. His right AV fistula graft is currently heparinized with syringes intact and in place. In the ED, patient received 1 L normal saline and 1 PRBC. Patient stool guaiac positive. Lactate was 6.6. Patient does have a white cell count. He has a macrocytic anemia and thrombocytopenia. During his last admission was diagnosed with staph epi/coag negative staph bacteremia. He was planned to have his left hemodialysis vascular catheter/femoral removed on Tuesday according to his mother bedside. He was on vancomycin scheduled with hemodialysis and oral Diflucan as an outpatient. Of note his baseline systolic blood pressure is in the 80s. Subjective: 08/13: taken urgently for endoscopy for UGIB. banded active esophageal varices. started on clear liquid diet per GI. lactate bumped this morning, likely secondary to active bleeding, but now bleeding has subsided. patient subjectively feels better than yesterday- currently on HD on my eval. 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 He was transferred to [facility] and critical care services were reconsulted. 09/11: Critical care medicine reconsulted for tachycardia with respiratory distress and hypoglycemia despite D10 drip. Patient had been followed by hospitalist service awaiting transfer to [facility]. He has remained on a D10 drip. He was treated with Diflucan and vancomycin for a PermCath infection which had been removed and subsequently had grown out yeast and Corynebacterium. He underwent hemodialysis on 09/10. He has had a left femoral central line and has extremely poor options for vascular access. He developed worsening mental status with hypoglycemia today despite D10 percent and was given D50 IV push 2, glucose on IV and critical care medicine was reconsulted. Patient was tachycardic in the 130s maintaining his blood pressure at the time. He subsequently spiked a fever 104 axillary? Though oral temperature taken shortly after read as 100.4. Blood cultures 2 were obtained from his central line and patient was switched to D 25% at 100 cc an hour for hypoglycemia despite D10 percent running at 100 cc an hour. I also spoke with Dr. Patel covering for ID and have restarted antibiotics for empiric coverage including Diflucan and 1 dose of vancomycin IV. 09/12 Patient is lying in bed in NAD. Receiving HD. Tmax 101.9 last night. On Heparin drip. 09/13: Blood cultures growing Klebsiella from 09/11 and 09/12. Awake and alert. Resting in bed comfortably. On heparin drip and D10 percent. The central line changed yesterday by IR. Objective Vital Signs Date Time Temp Pulse Resp B/P (MAP) Pulse Ox O2 Delivery O2 Flow Rate FiO2 09/13/17 14:00 88 09/13/17 12:00 98.5 13 109/56 (73) 91 09/13/17 08:07 Nasal Cannula 4.00 09/09/17 18:00 21 Intake and Output 09/13/17 09/13/17 09/14/17 08:00 16:00 00:00 Intake Total 2009 ml Output Total 0 ml Balance 2009 ml Result Diagram: 09/13/17 0500 09/13/17 0500 Imaging Last Impressions Chest X-Ray 09/11/17 0000 Signed Impressions: Service Date/Time: Monday, September 11, 2017 14:10 - CONCLUSION: 1. Stable patchy bilateral lower lung zone airspace disease. 2. No significant neural change. Shmuel Beckett MD Upper Extremity Ultrasound 09/06/17 0000 Signed Impressions: Service Date/Time: Wednesday, September 06, 2017 20:32 - CONCLUSION: 1. Nonocclusive superficial thrombus in the left cephalic vein. No deep venous thrombosis. Hayden Turcios MD Upper Extremity CT 09/02/17 1505 Signed Impressions: Service Date/Time: Saturday, September 02, 2017 17:09 - CONCLUSION: Very impressive soft tissue edema across the forearm. There is fluid between the fascia and the subcutaneous fat. Ehsan Archibald MD Abdomen MRI 08/31/17 0000 Signed Impressions: Service Date/Time: Thursday, August 31, 2017 15:40 - CONCLUSION: 1. Very limited study due to breathing motion artifact which and lack of IV contrast. 2. Atrophic kidneys with multiple tiny cortical cysts. 3. The pancreatic duct is just out of the range of normal measuring 4 mm in diameter. I'm not able to clearly identify an obstructing mass or stone on this limited study. Consideration could be made to a pancreatic protocol CT scan which is less susceptible to motion artifact. Narendra Barreto Jr., MD Abdomen Ultrasound 08/26/17 0000 Signed Impressions: Service Date/Time: Saturday, August 26, 2017 08:06 - CONCLUSION: 1. Kidneys are echogenic which can be seen with medical renal disease. 2. Cholelithiasis. 3. Mild prominence of the main pancreatic duct. Devyn Hickey MD Central Venous Line 08/25/17 0000 Signed Impressions: Service Date/Time: August 14:47 - CONCLUSION: Uncomplicated line placement as above. Tavares Ventura MD Objective Remarks GENERAL: 46-year-old AA male, currently resting in bed in NAD SKIN: Warm and dry. HEAD: Atraumatic. Normocephalic. EYES: Pupils equal and round about 3 mm bilaterally and reactive. No scleral icterus. No injection or drainage. ENT: No nasal bleeding or discharge. Mucous membranes pink and moist. Oropharynx without erythema NECK: Trachea midline. No JVD. CARDIOVASCULAR: Tachycardic, RR. RESPIRATORY: Good air entry bilaterally, scattered rhonchi, no wheezing or crackles. GASTROINTESTINAL: Abdomen soft, non-tender, nondistended. MUSCULOSKELETAL: bilateral [id number] amputation. Left upper extremity edema Neuro: Awake, alert, following commands. Procedures EGD PROCEDURE REPORT EXAM DATE: 08/13/2017 INDICATIONS: The patient is a 46 yr old male here for an EGD due to melena PROCEDURE PERFORMED: EGD w/ band ligation of varices MEDICATIONS: None and Per Anesthesia. TOPICAL ANESTHETIC: none CONSENT: The patient understands the risks and benefits of the procedure and understands that these risks include, but are not limited to: sedation, allergic reaction, infection, perforation and/or bleeding. Alternative means of evaluation and treatment include, among others: physical exam, x-rays, and/or surgical intervention. The patient elects to proceed with this endoscopic procedure. medical equipment was checked for proper function. Hand hygiene and appropriate measures for infection prevention was taken. After the risks, benefits and alternatives of the procedure were thoroughly explained, Informed consent was verified, confirmed and timeout was successfully executed by the treatment team. The patient was anesthetized with topical anesthesia and the Pentax [id number] endoscope was introduced through the mouth and advanced to the second portion of the duodenum. Retroflexion was performed and was normal The gastroscope was then slowly withdrawn and removed. ESOPHAGUS: There were large varices in the middle third of the esophagus and lower third esophagus. The varices were bleeding intermittently with spurting spot , 6 bands applied and bleeding controlled. STOMACH: There was severe and erosive gastritis in the entire examined stomach. DUODENUM: Multiple large shallow erosions were found in the duodenal bulb and 2nd part duodenum. ADVERSE EVENTS: There were no complications. IMPRESSIONS: 1. Bleeding Esophageal varices, with active bleeding identified, 6 bands applied to controll the bleeding 2. There was gastritis in the entire examined stomach 3. Multiple large erosions were found in the duodenal bulb and 2nd part duodenum RECOMMENDATIONS: Continue PPI , start Octreotide, PATIENT CONDITION: stable DISPOSITION: Observation REPEAT EXAM: Return 4 weeks EGD Chon Rodriguez MD 08/13/2017 1:38 PM A/P Assessment and Plan 46-year-old gentleman with ESRD who was originally admitted with tunneled perm- a-cath infection, severe sepsis, and active upper GI bleed s/p urgent endoscopy and esophageal banding. The patient was transferred to [facility] floor however prior discharge his sugars were found to be extremely low. The patient was awaiting the transfer to [facility] for further workup by footwear sales coordinator, when he developed acute respiratory distress, hypoglycemia despite D10 percent and fever with suspected recurrence of sepsis Neuro/Psych: Anxiety disorder NOS Acute toxic metabolic encephalopathy likely secondary to recurrent hypoglycemia/ severe sepsis Continue alprazolam 1 mg every 8 hours when necessary anxiety Acetaminophen 650 mg every 6 hours when necessary fever Noted allergy to morphine sulfate CV: Coronary artery disease status post stent PAD Monitor HR and BP keep MAP>65mmHg Echocardiogram 04/25 revealed EF 55-60%. Mild left ventricular hypertrophy. Trace TR. Resp: Acute respiratory failure Asthma? Chronic bibasilar opacification Continue with oxygen keep sat >92% Incentive spirometry while awake Albuterol/ipratropium aerosols every 6 hours with albuterol aerosols every 2 hours when necessary for Dyspnea GI: Elevated AST Gastroesophageal reflux disease GI bleed on admission On PO renal diet Continue pantoprazole Docusate sodium/senna 1 tablet twice a day for bowel regimen GI is following : No indication for Monroy catheter Endo: Recent hydrocortisone use Recurrent hypoglycemia SSI for glycemic control Renal: End-stage renal disease on chronic intermittent hemodialysis Tuesday/Tuesday and Tuesday secondary to lupus nephritis Hyperphosphatemia Monitor renal function, avoid nephrotoxins. HD today Renal -Dr. Merlos Heme: Macrocytic anemia Anemia of chronic kidney disease and acute blood loss Thrombocytopenia Hypercoagulable state On chronic warfarin therapy. Last evaluation in [address] Oreilly. At that time workup negative except for low protein S. Did not recommend repeating. Recommended lifelong anticoagulation due to history of PE/ DVT/SVC thrombus etc. Daily CBC/coags. Transfuse as clinically indicated to maintain hemoglobin greater than 7 Monitor CBC, coags ID: Severe sepsis Recent staph epi/coag negative staph bacteremia history of enterococcus right upper extremity wound Gram negative bacteremia/ Kleb pneumonia- ESBL Continue with abx per ID ( Cefepime changed to Merrem, Diflucan) monitor for signs of infections ( Fever, WBC) Check BC x 2 sets today 09/11 BC: Klebsiella x 2 sets. 09/12 BC: GNR 2 sets IR replaced central line in left femoral vein over the guidewire on 09/12 Has history of b/l occluded jugular veins and right femoral vein Patient being followed by ID. Recently was treated for infected PermCath which had been removed and grew out yeast and Corynebacterium. tunneled vas cath removed 08/12. MSK/Rheum: SLE positive History bilateral [id number] amputation's Right second/third finger amputation Left upper extremity edema - cellulitis? Currently not on any long-term medication for SLE. PT evaluate and treat Endo Place on SSI with accuchecks Q4h, on Cortef 10mg daily Prophylaxis - GI - pantoprazole - DVT - SCD/heparin drip Lines: Left femoral vein central line 09/12(exchanged over guidewire) Consult and transfer to hospitalist service for further medical management. Level 3 Laron Morales MD Sep 13, 2017 14:36
[2017-09-13] MEDS: FLUCONAZOLE 200 MG PREMIX BAG 100 ML IV SCH (17:32)
[2017-09-13 17:33] LABS: APTT (PATIENT) 35.2 SEC (24.3-30.1)
[2017-09-13] MEDS: LORATADINE 10 MG TAB PO SCH (21:06)
[2017-09-14] VITALS (22 sets, daily range): BP systolic 116–138; BP diastolic 60–66; PULSE 74–92; RESP 15–36; TEMP 99–99.3; O2SAT 84–98
[2017-09-14 00:47] LABS: APTT (PATIENT) 31.5 SEC (24.3-30.1)
[2017-09-14] MEDS: MEROPENEM INJ 500 MG in SODIUM CHLORIDE 0.9% INJ 100 ML IV SCH (06:20)
[2017-09-14 06:41] LABS: HEMATOCRIT 22.8 % (39.0-51.0); MEAN CELL VOLUME 90.4 FL (80.0-100.0); MEAN CORPUSCULAR HEMOGLOBIN 28.5 PG (27.0-34.0); MEAN CORPUSCULAR HGB CONC 31.5 % (32.0-36.0); PLATELET COUNT 211 TH/MM3 (150-450); RED BLOOD COUNT 2.52 MIL/MM3 (4.50-5.90); RED CELL DISTRIBUTION WIDTH 21.2 % (11.6-17.2); REVIEW FLAG FINAL; WHITE BLOOD COUNT 14.2 TH/MM3 (4.0-11.0)
[2017-09-14 06:44] LABS: APTT (PATIENT) 34.5 SEC (24.3-30.1)
[2017-09-14] MEDS: DOCUSATE SODIUM 50 MG/SENNA 8.6 MG TAB PO SCH (08:31)
[2017-09-14] MEDS: POLYETHYLENE GLYCOL 17 GM PKG PO SCH (08:31)
[2017-09-14] MEDS: CALCIUM ACETATE 667 MG CAP PO SCH (08:31)
[2017-09-14] MEDS: HYDROCORTISONE 10 MG TAB PO SCH (08:31)
[2017-09-14] MEDS: PANTOPRAZOLE SOD 40 MG DELAYED RELEASE TAB PO SCH (08:31)
[2017-09-14] MEDS: SODIUM CHLORIDE 23.4% INJ 154 MEQ in DEXTROSE 10% INJ 1,000 ML IV SCH (08:32)
[2017-09-14] MEDS: SODIUM CHLORIDE 0.9% FLUSH 10 ML FLUSH IV FLUSH SCH ×2 (08:33)
== END 2017-09-14 10:10 | disposition short-term general hospital (02) | DRG 314 ==
LOC: NEPC 09:04 → NEDA 11:54 → NEDH 20:50 → HIME 23:10 → UNDODISIN 08-15 17:08 → N04A 08-15 19:44 → HIMW 08-19 19:55 → N04B 08-20 15:58 → HIMN 09-02 17:35
PROVIDERS: ADMIT Internal Medicine Critical Care Medicine; ATTEND Internal Medicine Critical Care Medicine
PROC: 30233N1 Transfusion of Nonautologous Red Blood Cells into Peripheral Vein, Percutaneous Approach (ICD-10-PCS; principal; 2017-08-12)
PROC: 06HM33Z Insertion of Infusion Device into Right Femoral Vein, Percutaneous Approach (ICD-10-PCS; 2017-08-13)
PROC: 06L38CZ Occlusion of Esophageal Vein with Extraluminal Device, Via Natural or Artificial Opening Endoscopic (ICD-10-PCS; 2017-08-13)
PROC: 0W3P8ZZ Control Bleeding in Gastrointestinal Tract, Via Natural or Artificial Opening Endoscopic (ICD-10-PCS; 2017-08-13)
PROC: 5A1D70Z Performance of Urinary Filtration, Intermittent, Less than 6 Hours Per Day (ICD-10-PCS; 2017-08-14)
PROC: 06HN33Z Insertion of Infusion Device into Left Femoral Vein, Percutaneous Approach (ICD-10-PCS; 2017-08-25)
DX: T82.7XXA Infection and inflammatory reaction due to other cardiac and vascular devices, implants and grafts, initial encounter (principal); N18.6 End stage renal disease; J96.01 Acute respiratory failure with hypoxia; A41.50 Gram-negative sepsis, unspecified; G93.41 Metabolic encephalopathy; I85.11 Secondary esophageal varices with bleeding; N25.81 Secondary hyperparathyroidism of renal origin; I95.3 Hypotension of hemodialysis; K26.9 Duodenal ulcer, unspecified as acute or chronic, without hemorrhage or perforation; R65.20 Severe sepsis without septic shock; E87.2 Acidosis; I12.0 Hypertensive chronic kidney disease with stage 5 chronic kidney disease or end stage renal disease; D62 Acute posthemorrhagic anemia; I82.C23 Chronic embolism and thrombosis of internal jugular vein, bilateral; I82.712 Chronic embolism and thrombosis of superficial veins of left upper extremity; E87.1 Hypo-osmolality and hyponatremia; L03.114 Cellulitis of left upper limb; K29.70 Gastritis, unspecified, without bleeding; D69.6 Thrombocytopenia, unspecified; E11.22 Type 2 diabetes mellitus with diabetic chronic kidney disease; E88.09 Other disorders of plasma-protein metabolism, not elsewhere classified; Z99.2 Dependence on renal dialysis; K74.60 Unspecified cirrhosis of liver; I73.9 Peripheral vascular disease, unspecified; E11.65 Type 2 diabetes mellitus with hyperglycemia; D53.9 Nutritional anemia, unspecified; K21.9 Gastro-esophageal reflux disease without esophagitis; I25.10 Atherosclerotic heart disease of native coronary artery without angina pectoris; M32.14 Glomerular disease in systemic lupus erythematosus; D63.1 Anemia in chronic kidney disease; F41.9 Anxiety disorder, unspecified; E83.39 Other disorders of phosphorus metabolism; E11.649 Type 2 diabetes mellitus with hypoglycemia without coma; Y84.8 Other medical procedures as the cause of abnormal reaction of the patient, or of later complication, without mention of misadventure at the time of the procedure; K29.80 Duodenitis without bleeding; R79.89 Other specified abnormal findings of blood chemistry; R00.1 Bradycardia, unspecified; I48.91 Unspecified atrial fibrillation; Z95.5 Presence of coronary angioplasty implant and graft; Z91.041 Radiographic dye allergy status; Z87.891 Personal history of nicotine dependence; Z86.2 Personal history of diseases of the blood and blood-forming organs and certain disorders involving the immune mechanism; Z86.711 Personal history of pulmonary embolism; Z86.718 Personal history of other venous thrombosis and embolism; Z79.01 Long term (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 of anticoagulants; Z89.511 Acquired absence of right leg below knee; Z89.021 Acquired absence of right finger(s); Z89.512 Acquired absence of left leg below knee; E87.70 Fluid overload, unspecified; K59.00 Constipation, unspecified; Z53.20 Procedure and treatment not carried out because of patient's decision for unspecified reasons
CPT/HCPCS: 36430; 36556; 36580; 36589; 36591; 36600; 71010; 73200; 74181; 76700; 76937; 77001; 80048; 80053; 80069; 80074; 80202; 82103; 82105; 82140; 82150; 82390; 82533; 82550; 82728; 82805; 82947; 82948; 83520; 83525; 83540; 83550; 83605; 83690; 83735; 84100; 84206; 84443; 84484; 84681; 85007; 85025; 85027; 85610; 85730; 86038; 86255; 86337; 86850; 86900; 86901; 86920; 87040; 87071; 87077; 87186; 87205; 87641; 90935; 93005; 93971; 94150; 94640; 94664; 96365; 96368; 96374; 96375; J1170; C1751; C1769; C1887; C1894; C9113; J0131; J0692; J0696; J1450; J1610; J1644; J1720; J2060; J2185; J2354; J2370; J2405; J2543; J2930; J2997; J3105; J3370; J7030; J7040; J7050; J7060; J7070; J7512; J7613; P9016; P9047; Q4081; Q9967

== ENCOUNTER 2017-09-23 18:08 | Inpatient (IN) | payer MEDICAID ==
[~2017-09-23 18:08] MED LIST changes: +CLAR10TA7 PO; -COUM3TAB PO; +DIFL100T PO; -DIFL200T PO; +HYDR-3583 PO; -HYDR20TA PO; +HYDRO10 PO; +MIDO5TAB PO; -PANT20 PO; +PANT40TA3 PO; -VANC1000P IV; -WARF-20 PO; +[UNRECOGNIZED DRUG - CODE] IV; +[UNRECOGNIZED DRUG - CODE] IV
[2017-09-23 21:06] VITALS: O2SAT 99
[2017-09-23] MEDS ORDERED: ACETAMINOPHEN 325 MG TAB PO PRN (23:15)
[2017-09-23] MEDS ORDERED: NALOXONE HCL 0.4 MG/ML AMP IV PUSH PRN (23:15)
[2017-09-23] MEDS ORDERED: ONDANSETRON HCL 4 MG/2 ML VIAL IVP PRN (23:15)
[2017-09-23] MEDS ORDERED: MISCELLANEOUS NURSING INFORMATION XX SCH (23:15)
[2017-09-23] MEDS ORDERED: SODIUM CHLORIDE 0.9% FLUSH 10 ML FLUSH IV FLUSH PRN (23:15)
--- NOTE | 2017-09-23 23:28 | HHI.HP ---
HPI Service [facility] Hospitalists Primary Care Physician Unknown Admission Diagnosis Primary adrenal insufficiency, Klebsiella bacteremia . Diagnoses: (1) Primary adrenal insufficiency Chief Complaint: Pain left arm Travel History International Travel<30 Days: No Contact w/Intl Traveler <30 Da: No History of Present Illness Patient seen in ICU Mr. Mercado is a 47 y/o male with a history of end-stage renal disease on hemodialysis, SLE, CAD, COPD/asthma, multiple DVTs, multiple PEs, bilateral BKA , and anxiety who was transferred back to [facility] after undergoing endocrinology evaluation at [facility] in [place] from 09/14 until 09/23 following a lengthy hospitalization here from 08/12-09/14. The patient was experiencing hypoglycemia during his hospitalization here that was persistent despite treatment with D10W. Medical records reviewed from [facility] are summarized as follows: He underwent testing at [facility] and was found to have primary adrenal insufficiency with elevated ACTH level. He was also found to have a left antecubital abscess that was incised and drained. He was treated with IVANZ 500 mg daily and is supposed to complete treatment on 09/28/2017. He was found have nonocclusive thrombus right IJ, left subclavian vein and he was transferred on heparin drip. 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 Right upper quadrant ultrasound showed no liver cirrhosis, slightly thickened gallbladder wall which was a nonspecific finding. A transthoracic echocardiogram showed an EF of 65% with moderately elevated pulmonary artery systolic pressure. During the hospitalization here from 08/12-09/14, he was admitted for upper GI bleed and had endoscopy on 08/13 with esophageal varices banded. He suffered acute respiratory failure with intubation required on 09/02/2017. He developed GNR sepsis and his permacath was removed; it grew yeast and Corynebacterium. He was treated with Diflucan and meropenem. He completed treatment with Diflucan according to [facility] notes. Blood cultures 09/11 and 09/12 grew Klebsiella pneumoniae ESBL positive. He was followed by infectious disease specialist during that admission. The patient is seen in his room. He is complaining of 8 out of 10 left antecubital wound pain. He reports increased pain with movement and palpation on the pain is achy in nature. He states he was treated with IV fentanyl for pain at [facility] and this was effective. Previous treatment for recent staph epi and bryon sepsis; completed treatment July 11. Review of Systems Except as stated in HPI: all other systems reviewed are Neg Past Family Social History Past Medical History End-stage renal disease on hemodialysis Lupus nephritis SLE CAD COPD/asthma Multiple DVTs and PEs PAD GERD Anemia of chronic kidney disease Anxiety Primary adrenal insufficiency . Past Surgical History Tracheostomy and reversal Cardiac stenting Bilateral TKA Dialysis graft Digital resection of right second and third fingers at distal IP joint . Reported Medications Reported Meds & Active Scripts Active Diflucan (Fluconazole) 100 Mg Tab 100 Mg PO DAILY Heparin 25,000 Unit/250 ml-Ns (Heparin Sod,Porcine/0.9 % NaCl) 25,000 Unit/250 Ml (100 Unit/Ml) Iv.soln 25,000 Units IV CONTINUOUS 7 Days Dextrose 10%-Water IV Solution (Dextrose 10 % in Water) 10 % Iv.soln 30 Ml IV CONTINUOUS 7 Days Cortef (Hydrocortisone) 10 Mg Tab 10 Mg PO DAILY Take with food to decresae GI upset Hydrocodone-Acetamin 10-325 mg (Hydrocodone/Acetaminophen) 10 Mg-325 Mg Tablet 1 Tab PO Q4H PRN Claritin (Loratadine) 10 Mg Tablet 10 Mg PO HS Midodrine 5 Mg Tab 10 Mg PO TID@07,12,17 Xanax (Alprazolam) 1 Mg Tab 1 Mg PO Q8H PRN Pantoprazole (Pantoprazole Sodium) 40 Mg Tab 40 Mg PO Q12HR 30 Days Blood Glucose Monitor (Blood-Glucose Meter) 1 Each Kit Kit Fludrocortisone (Fludrocortisone Acetate) 0.1 Mg Tab 0.1 Mg PO WITH DIALYSIS Senna Plus 8.6-50 mg (Sennosides-Docusate Sodium) 8.6 Mg-50 Mg Tab 1 Tab PO BID Reported Renagel (Sevelamer HCl) 800 Mg Tab 1,600 Mg PO TID . Allergies: Coded Allergies: iodine (Unverified Allergy, Severe, blisters, 08/12/17) morphine (Unverified Allergy, Severe, Itching, 08/12/17) potassium iodide (Unverified Allergy, Severe, blisters, 08/12/17) povidone-iodine (Unverified Allergy, Severe, blisters, 08/12/17) sodium iodide (Unverified Allergy, Severe, blisters, 08/12/17) sodium iodide (Unverified Allergy, Severe, blisters, 08/12/17) Active Ordered Medications Current Medications Sodium Chloride (NS Flush) 2 ml UNSCH PRN IV FLUSH FLUSH AFTER USING IV ACCESS ; Start 09/23/17 at 23:15 Sodium Chloride (NS Flush) 2 ml BID IV FLUSH ; Start 09/24/17 at 09:00 Acetaminophen (Tylenol) 650 mg Q4H PRN PO TEMP > 100.4; Start 09/23/17 at 23: 15 Ondansetron HCl (Zofran Inj) 4 mg Q6H PRN IVP NAUSEA OR VOMITING; Start at 23:15 Naloxone HCl (Narcan Inj) 0.4 mg UNSCH PRN IV PUSH SEE LABEL COMMENTS; Start 09/23/17 at 23:15 Miscellaneous Information 1 [id number] Last administered on 09/23/17t 23:15; Start 09/23/17 at 23:15 Heparin Sodium/ Dextrose 250 ml @ 0 mls/hr TITRATE PRN IV Coagulation Management; Start 09/24/17 at 00:00; Stop 09/24/17 at 00:42; Status DC Acetaminophen/ Hydrocodone Bitart (Edmonds 5-325 Mg) 1 tab Q4H PRN PO pain > 4 Last administered on 09/24/17 00:50; Start 09/24/17 at 00:30 Hydrocortisone (Cortef) 5 mg DAILY PO ; Start 09/24/17 at 09:00 Hydrocortisone (Cortef) 15 mg DAILY@2000 PO ; Start 09/24/17 at 20:00 Alprazolam (Xanax) 1 mg Q12HR PO ; Start 09/24/17 at 09:00 Fludrocortisone Acetate (Florinef) 0.1 mg DAILY PO ; Start 09/24/17 at 09:00 Pantoprazole Sodium (Protonix) 40 mg DAILY PO ; Start 09/24/17 at 09:00 Famotidine (Pepcid) 20 mg BID PO ; Start 09/24/17 at 09:00 Sevelamer Carbonate (Renvela) 2,400 mg TIDAC PO ; Start 09/24/17 at 08:00 Albuterol Sulfate (Proair Hfa Inh) 2 puff Q6H PRN INH sob/wheezing; Start at 00:30 Miscellaneous (Pill Splitter) 1 ea UNSCH PRN OTHER SEE LABEL COMMENTS; Start 09/24/17 at 00:45 Heparin Sodium/ Dextrose 250 ml @ 14 mls/hr TITRATE PRN IV Coagulation Management; Start 09/24/17 at 00:45 . Family History Family history of hypertension; denies any family history of lupus, diabetes mellitus, or kidney disease . Social History Tobacco: Remote use over 15 years ago; smoked for about 5-7 years one pack per day Alcohol: Denies Illicit drugs: Denies . Physical Exam Physical Exam GENERAL: This is a chronically ill-appearing patient, in no apparent distress. SKIN: No rashes. Cool and dry. Left arm covered with bandage, bandage is clean , dry, and in place. HEAD: Atraumatic. Normocephalic. EYES: No scleral icterus. No injection or drainage. ENT: Nose without bleeding, purulent drainage. NECK: Trachea midline. No JVD. CARDIOVASCULAR: Regular rate and rhythm without murmurs, gallops, or rubs. RESPIRATORY: Clear to auscultation. Breath sounds diminished at bilateral bases , equal bilaterally. No wheezes, rales, or rhonchi. GASTROINTESTINAL: Abdomen soft, non-tender, nondistended. No guarding. MUSCULOSKELETAL: Extremities without clubbing, cyanosis, or edema. Bilateral BK amputations, index and middle fingers on right hand amputated at distal IP joint noted. NEUROLOGICAL: Awake and alert. Motor and sensory grossly within normal limits. Normal speech. . Caprini VTE Risk Assessment Caprini VTE Risk Assessment: Mod/High Risk (score >= 2) Caprini Risk Assessment Model Point Value = 1 Point Value = 2 Point Value = 3 Point Value = 5 Age 41-60 Minor surgery BMI > 25 kg/m2 Swollen legs Varicose veins or History of unexplained or recurrent spontaneous Oral contraceptives or hormone replacement Sepsis (< 1 month) Serious lung disease, including pneumonia (< 1 month) Abnormal pulmonary function Acute myocardial infarction Congestive heart failure (< 1 month) History of inflammatory bowel disease Medical patient at bed rest Age 61-74 Arthroscopic surgery Major open surgery (> 45 min) Laparoscopic surgery (> 45 min) Malignancy Confined to bed (> 72 hours) Immobilizing plaster cast Central venous access Age >= 75 History of VTE Family history of VTE Factor V Leiden Prothrombin [id number] Lupus anticoagulant Anticardiolipin antibodies Elevated serum homocysteine Heparin-induced thrombocytopenia Other congenital or acquired thrombophilia Stroke (< 1 month) Elective arthroplasty Hip, pelvis, or leg fracture Acute spinal cord injury (< 1 month) Prophylaxis Regimen Total Risk Factor Score Risk Level Prophylaxis Regimen 0-1 Low Early ambulation 2 Moderate Order ONE of the following: *Sequential Compression Device (SCD) *Heparin 5000 units SQ BID 3-4 Higher Order ONE of the following medications: *Heparin 5000 units SQ TID *Enoxaparin/Lovenox 40 mg SQ daily (WT < 150 kg, CrCl > 30 mL/min) *Enoxaparin/Lovenox 30 mg SQ daily (WT < 150 kg, CrCl > 10-29 mL/min) *Enoxaparin/Lovenox 30 mg SQ BID (WT < 150 kg, CrCl > 30 mL/min) AND/OR *Sequential Compression Device (SCD) 5 or more Highest Order ONE of the following medications: *Heparin 5000 units SQ TID (Preferred with Epidurals) *Enoxaparin/Lovenox 40 mg SQ daily (WT < 150 kg, CrCl > 30 mL/min) *Enoxaparin/Lovenox 30 mg SQ daily (WT < 150 kg, CrCl > 10-29 mL/min) *Enoxaparin/Lovenox 30 mg SQ BID (WT < 150 kg, CrCl > 30 mL/min) AND *Sequential Compression Device (SCD) Assessment and Plan Problem List: (1) Primary adrenal insufficiency ICD Code: E27.1 - Primary adrenocortical insufficiency Assessment and Plan Mr. Mercado is a 47 y/o male with a history of end-stage renal disease on hemodialysis, SLE, CAD, COPD/asthma, multiple DVTs, multiple PEs, bilateral BKA , and anxiety who was transferred back to [facility] after undergoing endocrinology evaluation at [facility] in [place] from 09/14 until 09/23 following a lengthy hospitalization here from 08/12-09/14. The patient was experiencing hypoglycemia during his hospitalization here that was persistent despite treatment with D10W. He was found to have primary adrenal insufficiency , a right UE DVT, and a left arm abscess in AC s/p I and D now - all while at [facility]. He is transferred back to [facility] for continued medical management. Primary Adrenal Insufficiency - ACTH elevated per records from [facility] - Florinef 0.1 mg p.o. qday - Hydrocortisone 15 mg q a.m. and 5 mg q pm - will need outpatient endocrinology f/u - will monitor blood sugar and blood pressure closely RUE DVT History of multiple DVTs/PEs - Heparin drip - will need to be bridged to Coumadin Hypoglycemia - resolved on p.o. hydrocortisone per [facility] documentation and D10 was weened effectively Klebsiella Bacteremia - continue Ivanz 500 mg qday through 09/28 - consult infectious disease specialist - appreciate assistance ESRD on HD - - last dialysis at [facility] on 09/23 - consult Dr. Merlos for continued management - monitor renal function Left AC abscess s/p I and D - antibiotics as above - consult wound care nurse - appreciate recommendations Chronic anxiety - continue Xanax 1 mg p.o. 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 In the case of services not specified as inpatient-only, they are appropriately provided as inpatient services in accordance with the 2-midnight benchmark. Estimated LOS (days): 5 days is the estimated time the patient will need to remain in the hospital, assuming treatment plan goals are met and no additional complications. Post-Hospital Plan: Not yet determined Sophia Reilly Sep 23, 2017 23:28
[2017-09-24] VITALS (13 sets, daily range): BP systolic 123–161; BP diastolic 57–95; PULSE 72–84; RESP 15–20; TEMP 98–98.6; O2SAT 92–100
[2017-09-24] MEDS ORDERED: HEPARIN-D5W 25,000 U/250 ML 250 ML IV PRN
[2017-09-24] MEDS ORDERED: ALBUTEROL SULFATE 90 MCG/ACT HFA 8 GM INHALER INH PRN (00:30)
[2017-09-24] MEDS ORDERED: PILL SPLITTER OTHER PRN (00:45)
[2017-09-24] MEDS: ACETAMINOPHEN/HYDROcodone 325 MG/5 MG TAB PO PRN ×2 (00:50→11:42)
[2017-09-24 00:56] LABS: INTERNATIONAL NORMALIZED RATIO 1.1 RATIO; PROTHROMBIN TIME - PATIENT 11.2 SEC (9.8-11.6)
[2017-09-24 01:28] LABS: HEMATOCRIT 25.6 % (39.0-51.0); HEMOGLOBIN 8.5 GM/DL (13.0-17.0); MEAN CORPUSCULAR HEMOGLOBIN 29.5 PG (27.0-34.0); MEAN CORPUSCULAR HGB CONC 33.2 % (32.0-36.0); MEAN PLATELET VOLUME 7.8 FL (7.0-11.0); PLATELET COUNT 304 TH/MM3 (150-450); RED BLOOD COUNT 2.88 MIL/MM3 (4.50-5.90); RED CELL DISTRIBUTION WIDTH 20.5 % (11.6-17.2); WHITE BLOOD COUNT 7.7 TH/MM3 (4.0-11.0)
[2017-09-24] MEDS: HEPARIN 25,000 UNITS-D5W 250 ML - PREMIX IV PRN ×2 (03:22→20:37)
[2017-09-24 06:51] LABS: AUTOMATED NEUTROPHIL # 5.5 TH/MM3 (1.8-7.7); BASOPHIL # 0.1 TH/MM3 (0-0.2); BASOPHIL % 0.9 % (0.0-2.0); EOSINOPHIL # 0.3 TH/MM3 (0-0.4); EOSINOPHIL % 3.9 % (0.0-4.0); HEMATOCRIT 24.5 % (39.0-51.0); LYMPH % 11.1 % (9.0-44.0); LYMPHOCYTE # 0.8 TH/MM3 (1.0-4.8); MEAN CELL VOLUME 90.3 FL (80.0-100.0); MEAN CORPUSCULAR HEMOGLOBIN 29.5 PG (27.0-34.0); MEAN CORPUSCULAR HGB CONC 32.7 % (32.0-36.0); MEAN PLATELET VOLUME 8.5 FL (7.0-11.0); MONO % 10.1 % (0.0-8.0); MONOCYTE # 0.8 TH/MM3 (0-0.9); PLATELET COUNT 277 TH/MM3 (150-450); RED BLOOD COUNT 2.72 MIL/MM3 (4.50-5.90); RED CELL DISTRIBUTION WIDTH 20.3 % (11.6-17.2); WHITE BLOOD COUNT 7.4 TH/MM3 (4.0-11.0)
[2017-09-24 07:15] LABS: BICARBONATE 27.8 MEQ/L (21.0-32.0); CALCIUM 8.8 MG/DL (8.5-10.1); CREATININE 4.75 MG/DL (0.60-1.30)
[2017-09-24] MEDS: ALPRAZolam 1 MG TAB PO SCH ×2 (08:15→20:10)
[2017-09-24] MEDS: PANTOPRAZOLE SOD 40 MG DELAYED RELEASE TAB PO SCH (08:15)
[2017-09-24] MEDS: HYDROCORTISONE 10 MG TAB PO SCH (08:15)
[2017-09-24] MEDS: SEVELAMER CARBONATE 800 MG TAB PO SCH ×3 (08:19→17:52)
[2017-09-24] MEDS: SODIUM CHLORIDE 0.9% FLUSH 10 ML FLUSH IV FLUSH SCH ×2 (09:00→20:10)
[2017-09-24] MEDS: FLUDROCORTISONE ACETATE 0.1 MG TAB PO SCH (09:00)
[2017-09-24] MEDS ORDERED: FAMOTIDINE 20 MG TAB PO SCH (09:00)
--- NOTE | 2017-09-24 14:11 | HHI.PR ---
Subjective Remarks awake and alert good po no pain complains telemetry- sinus good readings- blood sugars Objective Vitals Vital Signs Date Time Temp Pulse Resp B/P (MAP) Pulse Ox O2 Delivery O2 Flow Rate FiO2 09/24/17 08:00 72 09/24/17 08:00 98.0 72 18 125/57 (79) 100 09/24/17 07:24 92 Nasal Cannula 2.00 09/24/17 06:00 77 09/24/17 04:00 98.0 75 15 123/88 (100) 99 09/24/17 04:00 75 09/24/17 02:00 80 09/24/17 00:00 83 09/24/17 00:00 98.2 83 16 124/66 (85) 98 I/O 09/23/17 09/23/17 09/23/17 09/24/17 09/24/17 09/24/17 07:00 15:00 23:00 07:00 15:00 23:00 Intake Total 240 ml Output Total 0 ml Balance 240 ml Intake Oral 240 ml Output Urine Total 0 ml Result Diagram: 09/24/17 0530 09/24/17 0530 Objective Remarks awake and alert, in no acute distress anicteric lungs no rales regular rhyTHM abdomen soft, nontender extremities no edema, bilateral AKA right UE AV fistula= + bruit, wound dressing in place Left arm- wound packing in place neuro exam non focal A/P Problem List: (1) Primary adrenal insufficiency ICD Code: E27.1 - Primary adrenocortical insufficiency Assessment and Plan Mr. Mercado is a 47 y/o male with a history of end-stage renal disease on hemodialysis, SLE, CAD, COPD/asthma, multiple DVTs, multiple PEs, bilateral BKA , and anxiety who was transferred back to [place] after undergoing endocrinology evaluation at [facility] in [place] from 09/14 until 09/23 following a lengthy hospitalization here from 08/12-09/14. The patient was experiencing hypoglycemia during his hospitalization here that was persistent despite treatment with D10W. He was found to have primary adrenal insufficiency , a right UE DVT, and a left arm abscess in AC s/p I and D now - all while at [facility]. He is transferred back to [facility] for continued medical management. Primary Adrenal Insufficiency - ACTH elevated per records from [facility] - Florinef 0.1 mg p.o. qday - Hydrocortisone 15 mg q a.m. and 5 mg q pm - will need outpatient endocrinology f/u - will monitor blood sugar and blood pressure closely RUE DVT right lower lobe thrombus SVC thrombosis right atrial thrombus History of multiple DVTs/PE - Heparin drip - will need to be bridged to Coumadin - consult Hematology for recommendations- re " newer OAC Hypoglycemia= resolved likely secondary to adrenal insufficiency - resolved on p.o. hydrocortisone = per [facility] documentation and D10 was weaned effectively Klebsiella Sepsis- from left forearm abscess Left AC abscess s/p I and D - consult wound care nurse - appreciate recommendations - continue Ivanz 500 mg qday through 09/28 - consult infectious disease specialist - appreciate assistance ESRD on HD - last dialysis at [facility] on 09/23 - consult Dr. Merlos for HD arrangement - monitor renal function Anemia of CKD Chronic anxiety - continue Xanax 1 mg p.o. BID S/P Upper GI bleed with esophageal varices GERD - H and H stable - continue Protonix and Pepcid SLE positive per records review - not on any 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 helper medication for SLE Bilateral BKA - PT consult per patient was in the course of evaluation for prosthesis when acute medical problems came up DVT prophylaxis - SCDs/TEDs PT/OT consult for deconditioning - Maribel Torre MD Sep 24, 2017 14:11
[2017-09-24] MEDS ORDERED: WARFARIN SOD 5 MG TAB PO SCH (16:45)
[2017-09-24] MEDS ORDERED: ASP: Path resistant to other antimicrobials, culture proven PRN (17:00)
[2017-09-24] MEDS ORDERED: MISCELLANEOUS PHARMACY INFORMATION XX PRN ×2 (17:00)
[2017-09-24] MEDS: WARFARIN SOD 4 MG TAB PO SCH (17:52)
[2017-09-24] MEDS: ERTAPENEM INJ 500 MG in SODIUM CHLORIDE 0.9% INJ 100 ML IV SCH ×2 (18:00→20:11)
--- NOTE | 2017-09-24 18:00 | MB ---
cc: JELANI IBARRA MD DATE OF CONSULTATION: 09/24/2017. REASON FOR CONSULTATION: REQUESTING PHYSICIAN: Sophia Reilly / Dr. Torre. HISTORY OF PRESENT ILLNESS This is a 47-year-old black male who was transferred back to [facility] from [facility] in [place]. The patient was previously sent to [facility] from [place] because of adrenal insufficiency. He was also noted to have a left antecubital abscess, which was incised and drained. Prior to being sent to [facility], he was being treated for bacteremia due to Klebsiella ESBL from blood cultures. The patient had multiple positive blood cultures with Klebsiella between 09/11 and 09/12 and a central line from the left groin was removed and cultured and it showed less than fifteen colonies of gram-negative rods and also less than fifteen colonies of Staph coagulase-negative. The patient has been on Invanz. He is supposed to be on the Invanz until 09/28 from the previous recommendations given for antibiotics. Information on the incision and drainage results from [facility] is not available at this time. The white blood cell count is normal. The patient is awake and alert and in no acute distress. He tells me that he feels well. PAST MEDICAL HISTORY: The past medical history significant for: 1. 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 2. Lupus nephritis. 3. End-stage renal disease on hemodialysis. 4. Coronary artery disease. 5. COPD. 6. Multiple DVTs and PEs. 7. Gastroesophageal reflux disease (GERD). 8. Peripheral arterial disease. 9. Primary adrenal insufficiency. 10. History of tracheostomy and reversal. 11. Bilateral below-knee amputation. 12. AV graft of the right upper extremity. 13. History of resection of the distal aspect of the right second and third fingers. ALLERGIES: 1. SODIUM IODIDE. 2. POVIDONE IODIDE. 3. POTASSIUM IODIDE. 4. MORPHINE. 5. IODINE. MEDICATIONS: 1. Xanax. 2. Florinef. 3. Protonix. 4. Renvela. 5. [place] 5. SOCIAL HISTORY: No alcohol. No tobacco, illicit drugs. FAMILY HISTORY: Noncontributory. REVIEW OF SYSTEMS: Review of systems negative on 10-point review. PHYSICAL EXAMINATION: GENERAL: This is a well-developed male who is in no acute distress. He is awake and alert and oriented. He looks chronically ill. VITAL SIGNS: Include temperature 98.5, blood pressure 130/60, HEAD, EYES, EARS, NOSE, THROAT: The head is atraumatic. Extraocular movements grossly intact. Pupils reactive to light. No icterus. Oropharynx with moist mucosa without lesions. NECK: The neck is supple without adenopathy. LUNGS: Clear breath sounds. HEART: Regular, S1 and S2 without murmurs ABDOMEN: Bowel sounds present, soft, nontender. RECTAL: Not performed. EXTREMITIES: The left upper extremity has a dressing in place. The right upper extremity has an AV fistula which is intact. No edema. SKIN: Back pigmentation. No rash. NEUROLOGIC: Nonfocal. PSYCHIATRIC: The patient is calm, pleasant and cooperative. LABORATORY DATA: WBC 7.4, platelets 277,000, 74% neutrophils, hemoglobin 8.0, 4.75, BUN 17, estimated GFR 16. IMPRESSION: 1. Recent sepsis and bacteremia due to Klebsiella pneumoniae, ESBL-positive. This was felt likely to be line-related and the patient presented with sepsis syndrome on presentation with shock. 2. Left upper extremity abscess, which is status post incision and drainage at [facility]. Cultures not available. 3. End-stage renal disease. RECOMMENDATIONS: 1. Resume the patient's Invanz. Continue as previously planned for end date of 09/28/17. 2. Since the patient was followed by Dr. Barney prior to being transferred to [facility], I will notify her of his return to [facility] on Tuesday so that she can resume following him. Thank you for this consultation. Jelani Ibarra MD FD/MEENU /4:38 PM /5:34 PM
--- NOTE | 2017-09-24 18:00 | MB ---
cc: BANDAR DAWSON M.D. DATE OF CONSULTATION 09/24/[address] Maribel Torre. CHIEF COMPLAINT Dr. Torre requests a consultation for Mr. Mercado regarding left upper arm superficial thrombophlebitis. HISTORY OF PRESENT ILLNESS Mr. Mercado is a 47-year-old man with multiple medical problems. He presented to the emergency room on 08/12/2017 with upper GI bleed. He required banding of active esophageal varices. He has a history of systemic lupus, lupus nephritis, end-stage renal disease on hemodialysis Tuesday, Tuesday and Tuesday by Dr. Merlos. He also has history of pulmonary embolism, SVC syndrome. He has peripheral arterial disease, gastroesophageal reflux, anemia of chronic disease, anxiety, hyperphosphatemia. He had a prolonged hospitalization. His course was complicated by a left arm cellulitis and his blood cultures were growing Klebsiella on September 11 and September 22. He was placed on Ivance. He was continued on Ivanz. His course was complicated by hypoglycemia. He was transferred to [facility] from September 14 through September 23. He was diagnosed with primary adrenal insufficiency with elevated ACTH levels. He had left antecubital abscess that was incised and drained. His Ivance 500 mg was supposed to continued until September 28. He has had venous thromboembolic events. He has a non-occlusive thrombus in the right IJ left subclavian vein. He was on a heparin drip. CT angiogram showed a chronic occlusive thrombus in the right lower lobe, stenotic SUV with chronic thromboses extending into the right atrium. Evaluation from venous thromboembolic event during his stay at [place] included determination of a superficial vein thromboses in the left arm. Ultrasound August 24 shows a small amount of non-occlusive thrombus in the cephalic vein on the left. There is a very impressive soft tissue edema at that time. Repeat ultrasound of the upper extremity on September 06 showed non-occlusive superficial thrombus in the left cephalic vein similar from previous. He was transferred back to the care of the hospitalist on 09/23/2017. Hematology/Oncology is consulted for his numerous thromboembolic events. The only ones well documented at [place] were the superficial vein thromboses on the left upper arm. He has a dressing on the left forearm. There is no active bleeding. Denies any bleed. His varices were addressed. Mr. Mercado is eager to go home. He is not sure when he could go home. The rest of his review of systems is negative. PAST MEDICAL HISTORY 1. End-stage renal disease on hemodialysis 2. Lupus nephritis 3. Systemic lupus 4. Coronary artery disease, 5. COPD/asthma 6. Multiple deep vein thromboses, pulmonary embolism and superficial vein thromboses 7. Peripheral artery disease, 8. Gastroesophageal reflux, 9. Chronic kidney disease, 10. Anxiety, 11. Adrenal insufficiency primary. PAST SURGICAL HISTORY 1. Tracheostomy 2. Cardiac stent 3. Bilateral [id number] amputation 4. Dialysis graft 5. I&D of the left forearm 6. Right second and third finger resection 7. Right AV fistula. FAMILY HISTORY Significant for hypertension. No other family history of cancer. SOCIAL HISTORY Quit smoking 15 years ago. He has a five to seven pack-year smoking history. Denies any alcohol or illicit drug use. PHYSICAL EXAMINATION VITAL SIGNS: Temperature 98.5, heart rate 79, respiratory rate 20, blood pressure 130/60, saturation 100%. GENERAL: Mr. Mercado is a well-developed, well-nourished man who looks older than stated age. HEENT: Pupils are round, reactive to light and accommodation. Sclerae are muddy. Oropharynx is clear. NECK: Supple. LUNGS: Clear. CARDIOVASCULAR: Normal rate and rhythm. ABDOMEN: Soft, nontender and nondistended. EXTREMITIES: He has bilateral below the area amputation. He has severe left upper extremity edema are, dry dressing in the left forearm. He has missing digits partial on the right hand. ASSESSMENT/PLAN Mr. Mercado is a 47-year-old man with multiple medical problems described above. Hematology/Oncology is consulted for the persistent left cephalic vein superficial thromboses and history of pulmonary embolism and deep vein thromboses. I discussed with Mr. Mercado his diagnosis of superficial vein thromboses. Review of the medical records show history of deep vein thromboses and upper extremity DVT. He has need for continued anticoagulant therapy. Furthermore, it would benefit him given his severe superior vena cava stenosis. We discussed the risk and benefit of anticoagulant therapy. Our options are limited in light of his end-stage renal disease. He is a candidate for Eliquis, adjusted for patients with hemodialysis. However, in light of his recent GI bleed and no reversal agent for Eliquis, I recommend against it at present. For the time being, I recommend continued anticoagulant therapy with Coumadin. He is familiar with Coumadin and agreed. He has continued secondary prophylaxis in light of his recurrent venous thromboembolic event and pulmonary embolism. The most evidence of clot is a superficial vein clot which is followed. Clinically it is difficult to assess given the swelling in his left arm. We will bridge him to a therapeutic INR using the unfractionated heparin drip. He appears to be therapeutic, PTT of 85. We discussed risks and benefits of anticoagulation. His PT/INR will need to be titrated. It is likely to change once he completes and finishes antibiotic therapy. His diet is also being monitored very closely. He is likely to resume his previous habits at home which would also affect his Coumadin dose. His questions were answered to his satisfaction. MD GI [place]/ /4:25 PM /5:27 PM MTDSophy
[2017-09-24] MEDS ORDERED: HYDROCORTISONE 10 MG TAB PO SCH (20:00)
[2017-09-24] MEDS: FAMOTIDINE 20 MG TAB PO SCH (20:10)
[2017-09-25] VITALS (12 sets, daily range): BP systolic 87–191; BP diastolic 43–95; PULSE 61–87; RESP 16–28; TEMP 98–98.4; O2SAT 95–100
[2017-09-25] MEDS: ACETAMINOPHEN/HYDROcodone 325 MG/5 MG TAB PO PRN (05:47)
[2017-09-25] MEDS: ALPRAZolam 1 MG TAB PO SCH ×2 (08:44→22:02)
[2017-09-25] MEDS: SEVELAMER CARBONATE 800 MG TAB PO SCH ×3 (08:44→16:45)
[2017-09-25] MEDS: FAMOTIDINE 20 MG TAB PO SCH ×2 (08:45→22:03)
[2017-09-25] MEDS: FLUDROCORTISONE ACETATE 0.1 MG TAB PO SCH (08:45)
[2017-09-25] MEDS: HYDROCORTISONE 10 MG TAB PO SCH ×2 (08:45→22:02)
[2017-09-25] MEDS: PANTOPRAZOLE SOD 40 MG DELAYED RELEASE TAB PO SCH (08:45)
[2017-09-25] MEDS: SODIUM CHLORIDE 0.9% FLUSH 10 ML FLUSH IV FLUSH SCH ×2 (08:45→21:00)
--- NOTE | 2017-09-25 12:09 | PD.ONC.PN ---
Subjective Subjective Remarks Afebrile Pt sitting up in bed in no acute distress Reports that he is hungry, c/o not getting enough to eat on his trays Objective Data Date Time Temp Pulse Resp B/P (MAP) Pulse Ox O2 Delivery O2 Flow Rate FiO2 09/25/17 08:00 98.3 78 18 191/95 (127) 100 09/25/17 08:00 61 09/25/17 06:47 20 09/25/17 06:00 80 09/25/17 06:00 Automatic Cuff 09/25/17 04:00 75 09/25/17 04:00 98.0 75 20 141/79 (99) 09/25/17 02:00 79 09/25/17 00:00 87 09/25/17 00:00 98.2 86 18 155/72 (99) 100 09/24/17 22:00 80 09/24/17 20:01 98.6 83 19 161/95 (117) 99 09/24/17 20:00 80 09/24/17 18:00 80 09/24/17 16:00 98.3 75 20 142/72 (95) 100 09/24/17 16:00 73 09/24/17 14:00 77 09/24/17 12:00 84 09/24/17 12:00 79 09/24/17 12:00 98.5 84 20 130/60 (83) 100 09/25/17 09/25/17 09/25/17 07:00 15:00 23:00 Intake Total 340 ml 379 ml Output Total 0 ml 0 ml Balance 340 ml 379 ml Result Diagram: 09/24/1752909/24/17 0530 Laboratory Results Laboratory Tests Test 09/24/17 23:30 09/25/17 05:50 Activated Partial Thromboplast Time 86.5 SEC 48.9 SEC Administered Medications Medications (Trade) Dose Ordered Sig/Nohelia Route PRN Reason Start Time Stop Time Status Last Admin Dose Admin Sodium Chloride (NS Flush) 2 ml BID IV FLUSH 09/24/17 09:00 09/25/17 08:45 Miscellaneous Information 1 Q361D XX 09/23/17 23:15 09/23/17 23:15 Acetaminophen/ Hydrocodone Bitart ([place] 5-325 Mg) 1 tab Q4H PRN PO pain > 4 09/24/17 00:30 09/25/17 05:47 Hydrocortisone (Cortef) 5 mg DAILY PO 09/24/17 09:00 09/25/17 08:45 Hydrocortisone (Cortef) 15 mg DAILY@2000 PO 09/24/17 20:00 09/24/17 20:10 Alprazolam (Xanax) 1 mg Q12HR PO 09/24/17 09:00 09/25/17 08:44 Fludrocortisone Acetate (Florinef) 0.1 mg DAILY PO 09/24/17 09:00 09/25/17 08:45 Pantoprazole Sodium (Protonix) 40 mg DAILY PO 09/24/17 09:00 09/25/17 08:45 Sevelamer Carbonate (Renvela) 2,400 mg TIDAC PO 09/24/17 08:00 09/25/17 08:44 Heparin Sodium/ Dextrose 250 ml @ 14 mls/hr TITRATE PRN IV Coagulation Management 09/24/17 00:45 09/24/17 20:37 Famotidine (Pepcid) 10 mg BID PO 09/24/17 21:00 09/25/17 08:45 Warfarin Sodium (Coumadin) 4 mg DAILY@16 PO 09/24/17 16:46 09/24/17 17:52 Objective Remarks GENERAL: Chronically ill-appearing middle-age male sitting up in bed in no acute distress SKIN: Warm and dry. HEAD: Normocephalic. EYES: No injection or drainage. NECK: Supple, trachea midline. CARDIOVASCULAR: Regular rate and rhythm without murmurs. RESPIRATORY: Clear posteriorly. Breathing unlabored at rest. GASTROINTESTINAL: Abdomen soft, non-tender, nondistended. EXTREMITIES: Bilateral below knee amputations. Left upper extremity edema. MUSCULOSKELETAL: Adequate muscle tone. NEUROLOGICAL: No obvious focal deficit. Awake, alert, and oriented x3. Assessment/Plan Problem List: (1) History of DVT (deep vein thrombosis) ICD Codes: Z86.718 - Personal history of other venous thrombosis and embolism Plan: -- The patient has history of systemic lupus, multiple DVTs, pulmonary embolism and SVC syndrome -- He has a non-occlusive thrombus in the right IJ left subclavian vein. -- CT angiogram showed a chronic occlusive thrombus in the right lower lobe with chronic thromboses extending into the right atrium. -- Ultrasound August 24 shows a small amount of non-occlusive thrombus in the cephalic vein on the left. -- Repeat ultrasound of the upper extremity on September 06 showed non-occlusive superficial thrombus in the left cephalic vein similar from previous. -- Recommend anticoagulant therapy with Coumadin as this can be reversed with his recent GI bleeding Assessment 47 y/o male with history of ESRD on dialysis, multiple DVTs, pulmonary embolism and SVC syndrome; hematology consulted for anticoagulant recommendations Plan 1. INR pending today 2. Coumadin dosing depending on INR results 3. Monitor CBC Attending Statement The exam, history, and the medical decision-making described in the above note were completed with the assistance of the mid-level provider. I reviewed and agree with the findings presented. I attest that I had a [id number] encounter with the patient on the same day, and personally performed and documented my assessment and findings in the medical record. No complaints. Pt on UFH and titrated to stable dose of Coumadin. L forearm with incision and packing. Consult wound care- needs repacking and supply. No bleeding. No sign of infection. Subjectively feel arm better, although hard to see, still swollen. Apurva Ocasio Sep 25, 2017 12:09 Jennifer Gonzalez MD Sep 25, 2017 12:16
--- NOTE | 2017-09-25 12:54 | HHI.PR ---
Subjective Remarks awake and alert no complains of pain good po- wants to eat more Objective Vitals Vital Signs Date Time Temp Pulse Resp B/P (MAP) Pulse Ox O2 Delivery O2 Flow Rate FiO2 09/25/17 12:00 98.4 84 20 165/79 (107) 95 09/25/17 12:00 65 09/25/17 10:00 64 09/25/17 08:00 98.3 78 18 191/95 (127) 100 09/25/17 08:00 61 09/25/17 06:47 20 09/25/17 06:00 80 09/25/17 06:00 Automatic Cuff 09/25/17 04:00 75 09/25/17 04:00 98.0 75 20 141/79 (99) 09/25/17 02:00 79 09/25/17 00:00 87 09/25/17 00:00 98.2 86 18 155/72 (99) 100 09/24/17 22:00 80 09/24/17 20:01 98.6 83 19 161/95 (117) 99 09/24/17 20:00 80 09/24/17 18:00 80 09/24/17 16:00 98.3 75 20 142/72 (95) 100 09/24/17 16:00 73 09/24/17 14:00 77 I/O 09/24/17 09/24/17 09/24/17 09/25/17 09/25/17 09/25/17 07:00 15:00 23:00 07:00 15:00 23:00 Intake Total 240 ml 1711 ml 340 ml 379 ml Output Total 0 ml 261 ml 0 ml 0 ml Balance 240 ml 1450 ml 340 ml 379 ml Intake Oral 240 ml 1450 ml 240 ml 240 ml IV Total 261 ml 100 ml 139 ml Output Urine Total 0 ml 261 ml 0 ml 0 ml # Bowel Movements 0 0 Result Diagram: 09/24/1752909/24/1730 Objective Remarks awake and alert, in no acute distress anicteric lungs no rales regular rhyTHM abdomen soft, nontender lower extremities no edema, bilateral AKA right UE AV fistula= + bruit, Left arm- wound packing in place left groin - triple lumen catheter in place neuro exam non focal A/P Problem List: (1) Primary adrenal insufficiency ICD Code: E27.1 - Primary adrenocortical insufficiency Status: Chronic Assessment and Plan Mr. Mercado is a 47 y/o male with a history of end-stage renal disease on hemodialysis, SLE, CAD, COPD/asthma, multiple DVTs, multiple PEs, bilateral BKA , and anxiety who was transferred back to [place] after undergoing endocrinology evaluation at [facility] in [place] from 09/14 until 09/23 following a lengthy hospitalization here from 08/12-09/14. The patient was experiencing hypoglycemia during his hospitalization here that was persistent despite treatment with D10W. He was found to have primary adrenal insufficiency , a right UE DVT, and a left arm abscess in AC s/p I and D now - all while at [facility]. He is transferred back to [place] for continued medical management. Primary Adrenal Insufficiency - ACTH elevated per records from [facility] - Florinef 0.1 mg p.o. qday - Hydrocortisone 15 mg q a.m. and 5 mg q pm - will need outpatient endocrinology f/u - will monitor blood sugar and blood pressure closely - some BP elevation- monitor- with AI- - cosnider starting CCB- Amlodipine if consistently high RUE DVT right lower lobe thrombus SVC thrombosis right atrial thrombus History of multiple DVTs/PE - Heparin drip - bridged to Coumadin curretnly on 4 mg . INR pending - Dr Gonzalez ff Klebsiella Sepsis- Left AC abscess s/p I and D - consulted wound care nurse - appreciate recommendations - continue Ivanz 500 mg qday through 09/28 - infectious disease specialist ff - wound care team nurse consulted Hypoglycemia= resolved likely secondary to adrenal insufficiency - resolved on p.o. hydrocortisone = per [facility] documentation and D10 was weaned effectively - consult Nutrtionist for recommendations ESRD on HD -- - last dialysis at [facility] on 09/23 - consult Dr. Merlos for HD arrangement - monitor renal function Anemia of CKD Chronic anxiety - continue Xanax 1 mg p.o. BID S/P Upper GI bleed with esophageal varices GERD - H and H stable - continue Protonix and Pepcid SLE positive per records review - not on any long term acute care registered nurse medication for SLE Bilateral BKA - PT consult per patient was in the course of evaluation for prosthesis when acute medical problems came up DVT prophylaxis - SCDs/TEDs PT/OT consult for deconditioning - Maribel Torre MD Sep 25, 2017 12:54
[2017-09-25] MEDS ORDERED: ONDANSETRON HCL 4 MG/2 ML VIAL IV PUSH PRN (15:30)
[2017-09-25] MEDS ORDERED: cloNIDine HCL 0.1 MG TAB PO PRN (15:30)
[2017-09-25] MEDS ORDERED: SODIUM CHLORIDE 0.9% FLUSH 10 ML FLUSH IV FLUSH PRN (15:30)
[2017-09-25] MEDS ORDERED: ALBUMIN 25% INJ 100 ML IV PRN (15:30)
[2017-09-25] MEDS ORDERED: MANNITOL 12.5 GM/50 ML VIAL IV PRN (15:30)
[2017-09-25] MEDS ORDERED: diphenhydrAMINE HCL 25 MG CAP PO PRN (15:30)
[2017-09-25] MEDS ORDERED: SODIUM CHLOR 0.9% 1000 ML INJ 1,000 ML OTHER PRN ×2 (15:30)
[2017-09-25] MEDS ORDERED: ACETAMINOPHEN 325 MG TAB PO PRN (15:30)
[2017-09-25] MEDS ORDERED: SODIUM CHLOR 0.9% 1000 ML INJ 1,000 ML IV PRN (15:30)
[2017-09-25] MEDS ORDERED: NITROGLYCERIN 0.4 MG SL 25 TABS/BTL SL PRN (15:30)
--- NOTE | 2017-09-25 15:38 | PD.CONS ---
HPI Consult Requested By Primary Care Physician Unknown Past Family Social History Allergies: Coded Allergies: iodine (Unverified Allergy, Severe, blisters, 08/12/17) morphine (Unverified Allergy, Severe, Itching, 08/12/17) potassium iodide (Unverified Allergy, Severe, blisters, 08/12/17) povidone-iodine (Unverified Allergy, Severe, blisters, 08/12/17) sodium iodide (Unverified Allergy, Severe, blisters, 08/12/17) sodium iodide (Unverified Allergy, Severe, blisters, 08/12/17) Past Medical History Diagnosis of adrenal insufficiency and [facility]. Florinef 0.1 mg and Cortef 50 mg a.m. 5 g p.m. recommended PE with chronic thrombus noted [facility] September 2017. SVC stenosis. Noted [facility] September 2017. ESRD on hemodialysis SLE E CAD Hypertension Severe PVD History of DVT Anemia Hyperparathyroidism of renal origin Previous dialysis catheter line infection Known central venous occlusion Esophageal varices but no history of cirrhosis. Past Surgical History Angioplasties appear vena cava for stenosis 2010. Bilateral BKA 2 fingers amputated Previous dialysis access in his left upper extremity Recent AV fistula creation in the right upper extremity Previous revascularization procedures for PV Drainage left arm hematoma/abscess [facility] September 2017. Reported Medications Reported Meds & Active Scripts Active Diflucan (Fluconazole) 100 Mg Tab 100 Mg PO DAILY Heparin 25,000 Unit/250 ml-Ns (Heparin Sod,Porcine/0.9 % NaCl) 25,000 Unit/250 Ml (100 Unit/Ml) Iv.soln 25,000 Units IV CONTINUOUS 7 Days Dextrose 10%-Water IV Solution (Dextrose 10 % in Water) 10 % Iv.soln 30 Ml IV CONTINUOUS 7 Days Cortef (Hydrocortisone) 10 Mg Tab 10 Mg PO DAILY Take with food to decresae GI upset Hydrocodone-Acetamin 10-325 mg (Hydrocodone/Acetaminophen) 10 Mg-325 Mg Tablet 1 Tab PO Q4H PRN Claritin (Loratadine) 10 Mg Tablet 10 Mg PO HS Midodrine 5 Mg Tab 10 Mg PO TID@07,12,17 Xanax (Alprazolam) 1 Mg Tab 1 Mg PO Q8H PRN Pantoprazole (Pantoprazole Sodium) 40 Mg Tab 40 Mg PO Q12HR 30 Days Blood Glucose Monitor (Blood-Glucose Meter) 1 Each Kit Kit Fludrocortisone (Fludrocortisone Acetate) 0.1 Mg Tab 0.1 Mg PO WITH DIALYSIS Senna Plus 8.6-50 mg (Sennosides-Docusate Sodium) 8.6 Mg-50 Mg Tab 1 Tab PO BID Reported Renagel (Sevelamer HCl) 800 Mg Tab 1,600 Mg PO TID Active Ordered Medications Current Medications Sodium Chloride (NS Flush) 2 ml UNSCH PRN IV FLUSH FLUSH AFTER USING IV ACCESS ; Start 09/23/17 at 23:15 Sodium Chloride (NS Flush) 2 ml BID IV FLUSH Last administered on 09/25/17 08 :45; Start 09/24/17 at 09:00 Acetaminophen (Tylenol) 650 mg Q4H PRN PO TEMP > 100.4; Start 09/23/17 at 23: 15 Ondansetron HCl (Zofran Inj) 4 mg Q6H PRN IVP NAUSEA OR VOMITING; Start at 23:15 Naloxone HCl (Narcan Inj) 0.4 mg UNSCH PRN IV PUSH SEE LABEL COMMENTS; Start 09/23/17 at 23:15 Miscellaneous Information 1 Q361D XX Last administered on 09/23/17 23:15; Start 09/23/17 at 23:15 Heparin Sodium/ Dextrose 250 ml @ 0 mls/hr TITRATE PRN IV Coagulation Management; Start 09/24/17 at 00:00; Stop 09/24/17 at 00:42; Status DC Acetaminophen/ Hydrocodone Bitart (Gardner 5-325 Mg) 1 tab Q4H PRN PO pain > 4 Last administered on 09/25/17 05:47; Start 09/24/17 at 00:30 Hydrocortisone (Cortef) 5 mg DAILY PO Last administered on 09/25/17 08:45; Start 09/24/17 at 09:00; Stop 09/25/17 at 15:31; Status DC Hydrocortisone (Cortef) 15 mg DAILY@2000 PO Last administered on 09/24/17 20: 10; Start 09/24/17 at 20:00; Stop 09/25/17 at 15:31; Status DC Alprazolam (Xanax) 1 mg Q12HR PO Last administered on 09/25/17 08:44; Start 09/24/17 at 09:00 Fludrocortisone Acetate (Florinef) 0.1 mg DAILY PO Last administered on 08:45; Start 09/24/17 at 09:00 Pantoprazole Sodium (Protonix) 40 mg DAILY PO Last administered on 09/25/17 08:45; Start 09/24/17 at 09:00 Famotidine (Pepcid) 20 mg BID PO Last administered on 09/24/17 08:15; Start 09/24/17 at 09:00; Stop 09/24/17 at 12:00; Status DC Sevelamer Carbonate (Renvela) 2,400 mg TIDAC PO Last administered on 13:13; Start 09/24/17 at 08:00 Albuterol Sulfate (Proair Hfa Inh) 2 puff Q6H PRN INH sob/wheezing; Start at 00:30 Miscellaneous (Pill Splitter) 1 ea UNSCH PRN OTHER SEE LABEL COMMENTS; Start 09/24/17 at 00:45 Heparin Sodium/ Dextrose 250 ml @ 14 mls/hr TITRATE PRN IV Coagulation Management Last administered on 09/24/17 20:37; Start 09/24/17 at 00:45 Famotidine (Pepcid) 10 mg BID PO Last administered on 09/25/17 08:45; Start 09/24/17 at 21:00 Warfarin Sodium (Coumadin) 5 mg DAILY@1600 PO ; Start 09/24/17 at 16:45; Status UNV Warfarin Sodium (Coumadin) 4 mg DAILY@16 PO Last administered on 09/24/17 17: 52; Start 09/24/17 at 16:46 Patient Medication Teaching (Coumadin Booklet) 1 ONCE ONCE .XX Last administered on 09/24/17 17:52; Start 09/24/17 at 17:00; Stop 09/24/17 at 17 :01; Status DC Miscellaneous Medication (ASP Crit: Path resist to other, cult proven) 1 UNSCH X1 PRN .XX PHARMACY DOCUMENTATION; Start 09/24/17 at 17:00; Stop 09/25/17 at 16:59 Miscellaneous Medication ([facility]) 1 UNSCH X1 PRN XX PHARMACY DOCUMENTATION; Start 09/24/17 at 17:00; Stop 09/25/17 at 16:59 Ertapenem 500 mg/ Sodium Chloride 100 ml @ 200 mls/hr Q24H IV Last administered on 09/24/17t 20:11; Start 09/24/17 at 18:00; Stop 09/24/17 at 20 :25; Status DC Miscellaneous Medication ([facility]) 1 UNSCH X1 PRN XX PHARMACY DOCUMENTATION; Start 09/24/17 at 17:00; Stop 09/25/17 at 16:59 Ertapenem 500 mg/ Sodium Chloride 50 ml @ 200 mls/hr Q24H IV ; Start 09/25/17 at 18:00 Hydrocortisone (Cortef) 15 mg DAILY PO ; Start 09/26/17 at 09:00 Hydrocortisone (Cortef) 5 mg DAILY@2000 PO ; Start 09/25/17 at 20:00 Sodium Chloride 1,000 ml @ 0 mls/hr Q0M PRN OTHER For Prime & Rinse Back; Start 09/25/17 at 15:30; Status UNV Sodium Chloride 1,000 ml @ 200 mls/hr Q5H PRN IV WITH DIALYSIS; Start at 15:30; Status UNV Sodium Chloride 1,000 ml @ 0 mls/hr Q0M PRN OTHER WITH DIALYSIS; Start at 15:30; Status UNV Mannitol (Mannitol Inj) 12.5 gm UNSCH PRN IV WITH DIALYSIS; Start 09/25/17 at 15:30; Status UNV Albumin Human 100 ml @ 60 mls/hr UNSCH PRN IV WITH DIALYSIS; Start 09/25/17 at 15:30; Status UNV Sodium Chloride (NS Flush) 5 ml UNSCH PRN IV FLUSH WITH DIALYSIS; Start at 15:30; Status UNV Ondansetron HCl (Zofran Inj) 4 mg UNSCH PRN IV PUSH WITH DIALYSIS; Start 09/25 at 15:30; Status UNV Acetaminophen (Tylenol) 650 mg UNSCH PRN PO for headach, pain, temp > 101F; Start 09/25/17 at 15:30; Status UNV Diphenhydramine HCl (Benadryl) 25 mg UNSCH PRN PO for hives/itching/anaphylaxis ; Start 09/25/17 at 15:30; Status UNV Nitroglycerin (Nitrostat Sl) 0.4 mg UNSCH PRN SL CHEST PAIN; Start 09/25/17 at 15:30; Status UNV Clonidine (Catapres) 0.1 mg UNSCH PRN PO for BP > 180/100 X 2 readings; Start 09/25/17 at 15:30; Status UNV Epoetin Eddie (Epogen Inj) 10,000 units UNSCH PRN IV PUSH WITH DIALYSIS; Start 09/25/17 at 15:30; Status UNV Gelatin (Gelfoam 12 Mm/7 Mm Top) 1 foam UNSCH PRN TOP SEE LABEL COMMENTS; Start 09/25/17 at 15:30; Status UNV Family History Noncontributory to current complaint. Social History Noncontributory to current complaint. Denying history of ocular abuse. Physical Exam Vital Signs Vital Signs Date Time Temp Pulse Resp B/P (MAP) Pulse Ox O2 Delivery O2 Flow Rate FiO2 09/25/17 14:00 85 09/25/17 12:00 98.4 84 20 165/79 (107) 95 09/25/17 12:00 65 09/25/17 10:00 64 09/25/17 08:00 98.3 78 18 191/95 (127) 100 09/25/17 08:00 61 09/25/17 06:47 20 09/25/17 06:00 80 09/25/17 06:00 Automatic Cuff 09/25/17 04:00 75 09/25/17 04:00 98.0 75 20 141/79 (99) 09/25/17 02:00 79 09/25/17 00:00 87 09/25/17 00:00 98.2 86 18 155/72 (99) 100 09/24/17 22:00 80 09/24/17 20:01 98.6 83 19 161/95 (117) 99 09/24/17 20:00 80 09/24/17 18:00 80 09/24/17 16:00 98.3 75 20 142/72 (95) 100 09/24/17 16:00 73 Laboratory Laboratory Tests Test 09/24/17 23:30 09/25/17 05:50 Activated Partial Thromboplast Time 86.5 48.9 Result Diagram: 09/24/1730 09/24/17529 Imaging GENERAL: Some facial edema. Not in respiratory distress. SKIN: Warm and dry. HEAD: Normocephalic. EYES: No scleral icterus. No injection or drainage. NECK: Supple, trachea midline. No JVD or lymphadenopathy. CARDIOVASCULAR: Regular rate and rhythm without murmurs, gallops, or rubs. RESPIRATORY: Breath sounds equal bilaterally. No accessory muscle use. GASTROINTESTINAL: Abdomen soft, non-tender, nondistended. MUSCULOSKELETAL: No cyanosis, 2+ pitting edema presacral and hips and upper thighs. Patient is a bilateral lower extremity amputee. BACK: Nontender without obvious deformity. No CVA tenderness. Assessment and Plan Problem List: (1) ESRD (end stage renal disease) on dialysis ICD Codes: N18.6 - End stage renal disease; Z99.2 - Dependence on renal dialysis Status: Chronic Plan: Hemodialysis as ordered starting tomorrow with ultrafiltration in view of some fluid retention clinically. Medications should be adjusted with the patient's end-stage renal disease when indicated. Avoid gadolinium. (2) Anemia of renal disease ICD Codes: D63.1 - Anemia in chronic kidney disease Status: Chronic Plan: Continue Procrit for anemia renal disease as ordered. (3) Primary adrenal insufficiency ICD Codes: E27.1 - Primary adrenocortical insufficiency Status: Chronic Plan: I have taken the liberty of changing the Cortef dose in house which was prescribed that 5 mg a.m. and 15 mg in the p.m. to the original dosage of 15 mg a.m. and 5 mg p.m. which is more in keeping with a natural circadian rhythm. Continue Florinef as ordered. Importance of compliance as an outpatient discussed with patient. (4) History of DVT (deep vein thrombosis) ICD Codes: Z86.718 - Personal history of other venous thrombosis and embolism Plan: Noted patient now on Coumadin and may require this indefinitely. There have been compliance issues with this patient in regard to medications and monitoring of INR and PTT may very be difficult as an outpatient secondary to poor peripheral access as well as compliance issues. I will defer to hematology in regard to management. (5) Esophageal varices determined by endoscopy ICD Codes: I85.00 - Esophageal varices without bleeding Status: Chronic (6) Abscess of left upper extremity ICD Codes: L02.414 - Cutaneous abscess of left upper limb Status: Chronic Plan: Status post drainage at [facility]. Patient requires Invanz until September 28, 2017. Clarence Merlos MD Sep 25, 2017 15:38
[2017-09-25] MEDS: WARFARIN SOD 4 MG TAB PO SCH (16:44)
[2017-09-25] MEDS: SODIUM CHLORIDE 0.9% IV SCH (16:45)
[2017-09-25] MEDS: ERTAPENEM IV SCH (16:45)
[2017-09-25] MEDS ORDERED: DEXTROSE 50% IN WATER 50 ML VIAL(D50) IV PUSH ONE (18:00)
[2017-09-25] MEDS: HEPARIN 25,000 UNITS-D5W 250 ML - PREMIX IV PRN (20:01)
[2017-09-25 22:46] LABS: INTERNATIONAL NORMALIZED RATIO 1.1 RATIO; PROTHROMBIN TIME - PATIENT 10.9 SEC (9.8-11.6)
[2017-09-26] VITALS (11 sets, daily range): BP systolic 106–165; BP diastolic 49–72; PULSE 74–93; RESP 16–23; TEMP 97.9–98.5; O2SAT 91–100
[2017-09-26 04:50] LABS: HEMATOCRIT 24.1 % (39.0-51.0); MEAN CELL VOLUME 90.3 FL (80.0-100.0); MEAN CORPUSCULAR HEMOGLOBIN 29.8 PG (27.0-34.0); MEAN PLATELET VOLUME 8.7 FL (7.0-11.0); PLATELET COUNT 278 TH/MM3 (150-450); RED BLOOD COUNT 2.67 MIL/MM3 (4.50-5.90); RED CELL DISTRIBUTION WIDTH 20.9 % (11.6-17.2)
[2017-09-26 05:03] LABS: INTERNATIONAL NORMALIZED RATIO 1.1 RATIO; PROTHROMBIN TIME - PATIENT 10.9 SEC (9.8-11.6)
[2017-09-26] MEDS: ACETAMINOPHEN/HYDROcodone 325 MG/5 MG TAB PO PRN ×3 (05:41→20:15)
--- NOTE | 2017-09-26 10:06 | HHI.NPPN ---
Subjective History of Present Illness 47-year-old male with history of multiple medical problems including end-stage renal disease, hypertension, DVTs, multiple failed dialysis access disease but now is a functional AV dialysis fistula who was recently hostile eyes at this institution noted to have persisting hypoglycemia relative hypotension who is referred to [facility] in [place] for further evaluation by endocrinology. Patient apparently diagnosed as having primary hypoaldosteronism and has been started on Florinef as well as hydrocortisone by mouth. Also underwent incision and drainage of an infected hematoma of the left upper extremity. Patient has been transferred back to this institution. Interval History Seen on dialysis today and tolerating same well. Objective Data Data Vital Signs Date Time Temp Pulse Resp B/P (MAP) Pulse Ox O2 Delivery O2 Flow Rate FiO2 09/26/17 08:27 97 09/26/17 04:00 98.0 78 17 165/72 (103) 100 09/26/17 00:00 98.4 80 23 131/69 (89) 100 09/25/17 20:01 100 Nasal Cannula 2.00 09/25/17 20:00 98.2 78 28 87/43 (58) 98 09/25/17 18:00 75 09/25/17 16:00 98.0 78 16 150/56 (87) 95 09/25/17 16:00 65 09/25/17 14:00 85 09/25/17 12:00 98.4 84 20 165/79 (107) 95 09/25/17 12:00 65 -: 09/26/17 0400 09/24/17 0530 Physical Exam General Appearance: Comfortable Eyes Eye Exam: Sclera White Pulmonary Resp Exam: Clear Bilaterally, Breath Sounds Equal, No Distress Cardiology CV Exam: Regular, Normal Sinus Rhythm Gastrointestinal/Abdomen GI Exam: Soft, Non-Tender Integumentary Skin Exam: Clear, Warm Extremeties Extremities Exam: Trace Edema (lower extremities.) Neurologic Neuro Exam: Alert, Awake, Speech Clear Assessment/Plan Discussed Condition With: Patient Problem List: (1) ESRD (end stage renal disease) on dialysis ICD Codes: N18.6 - End stage renal disease; Z99.2 - Dependence on renal dialysis Status: Chronic Plan: I'm status will improve with dialysis today and it may also help in improving his blood pressure. Medications should be adjusted with the patient's end-stage renal disease when indicated. Avoid gadolinium. (2) Anemia of renal disease ICD Codes: D63.1 - Anemia in chronic kidney disease Status: Chronic Plan: Continue Procrit for anemia renal disease as ordered. (3) Primary adrenal insufficiency ICD Codes: E27.1 - Primary adrenocortical insufficiency Status: Chronic Plan: Continue Florinef as well as Cortef as recommended by endocrinology at [facility]. (4) History of DVT (deep vein thrombosis) ICD Codes: Z86.718 - Personal history of other venous thrombosis and embolism Plan: Noted patient now on Coumadin and may require this indefinitely. There have been compliance issues with this patient in regard to medications and monitoring of INR and PTT may very be difficult as an outpatient secondary to poor peripheral access as well as compliance issues. I will defer to hematology in regard to management. (5) Esophageal varices determined by endoscopy ICD Codes: I85.00 - Esophageal varices without bleeding Status: Chronic (6) Abscess of left upper extremity ICD Codes: L02.414 - Cutaneous abscess of left upper limb Status: Chronic Plan: Status post drainage at [facility]. Patient requires Invanz until September 28, 2017. Clarence Merlos MD Sep 26, 2017 10:06
[2017-09-26] MEDS: EPOETIN ALFA 10,000 UNITS/ML VIAL IV PUSH PRN (10:28)
[2017-09-26] MEDS: GELATIN 12 MM/7 MM FOAM TOP PRN (10:28)
[2017-09-26] MEDS: SODIUM CHLORIDE 0.9% FLUSH 10 ML FLUSH IV FLUSH SCH ×2 (10:35→20:14)
[2017-09-26] MEDS: PANTOPRAZOLE SOD 40 MG DELAYED RELEASE TAB PO SCH (10:35)
[2017-09-26] MEDS: SEVELAMER CARBONATE 800 MG TAB PO SCH ×3 (10:35→17:54)
[2017-09-26] MEDS: FAMOTIDINE 20 MG TAB PO SCH ×2 (10:35→20:14)
--- NOTE | 2017-09-26 11:37 | PD.WCN.NOT ---
Wound Consult Description: Consult for WOUND MANAGEMENT of L AC s/p I and D per TONYA Reilly Communicated with: KIRK Hightower Recommendation: Daily cleansing with NS and gauze with Iodoform packing until seen by Wound Care Physician/Surgeon. Possible wound VAC placement. Additional Information: Patient seen on [facility] for left forearm s/p I&D. Bordered gauze dressing dated 09/25/17 was removed using adhesive remover. Packing was removed from wound bed and measured 5cm x 1.9cm x 1.6cm. There is scant clear drainage coming from wound bed consisting of ~50% pink and ~50% red non granulating tissue with separation of tissues noted at the base of the wound bed at 1.6cm deep that measures ~1cm from 7-11 o'clock hat cannot be visualized. There is no odor noted from wound. Periwound is indurated with pitting edema and cool to the touch. Wound was cleansed with NS and gauze. Iodoform was requested for packing and unavailable from the unit at that time. RN states that it will have to be ordered. In the mean time, wound was gently and lightly packed in a fluffing fashion with sterile gauze and covered with a 4x4 and paper tape. Superficial wound noted distally to previously described wound is within its periwound and is partial thickness and measuring ~1cm x 0.3cm x 0.2cm with 100% red tissue, no odor, and no drainage. Jessica García [facility] Sep 26, 2017 11:37
[2017-09-26] MEDS: ALPRAZolam 1 MG TAB PO SCH ×2 (12:45→20:14)
[2017-09-26] MEDS: HYDROCORTISONE 10 MG TAB PO SCH ×2 (12:46→20:14)
[2017-09-26] MEDS: FLUDROCORTISONE ACETATE 0.1 MG TAB PO SCH (12:46)
--- NOTE | 2017-09-26 13:32 | HHI.IDPN ---
Subjective Subjective Remarks 47 year old male, transferred back to [facility] for continued care. He was transferred for work-up of recurrent hypoglycemia. He was found to have primary adrenal insufficiency. Prior to transfer he has foound to have Kleb ESBL+ line rerlatred bacteremia, from a groin line which was replaced. In [facility] he was found to have infected hematoma in his LUE, no info on C/S. has known ESRD and on HD. Has AVF in his RUE Notes reviewed Afebrile C/O pain in his LUE Not SOB BP ok Had HD today Antibiotics Invanz Past Medical History Nonocclusive thrombus of the right internal jugular and left subclavian vein. Lupus nephritis. End-stage renal disease on hemodialysis. Coronary artery disease. COPD. Multiple DVTs and PEs. Gastroesophageal reflux disease (GERD). Peripheral arterial disease. Primary adrenal insufficiency. History of tracheostomy and reversal. Bilateral below-knee amputation. AV graft of the right upper extremity. History of resection of the distal aspect of the right second and third fingers. Allergies: Coded Allergies: iodine (Unverified Allergy, Severe, blisters, 08/12/17) morphine (Unverified Allergy, Severe, Itching, 08/12/17) potassium iodide (Unverified Allergy, Severe, blisters, 08/12/17) povidone-iodine (Unverified Allergy, Severe, blisters, 08/12/17) sodium iodide (Unverified Allergy, Severe, blisters, 08/12/17) sodium iodide (Unverified Allergy, Severe, blisters, 08/12/17) Objective . Vital Signs Date Time Temp Pulse Resp B/P (MAP) Pulse Ox O2 Delivery O2 Flow Rate FiO2 09/26/17 10:00 93 09/26/17 08:27 97 09/26/17 08:00 74 09/26/17 08:00 98.5 74 20 121/60 (80) 91 09/26/17 04:00 98.0 78 17 165/72 (103) 100 09/26/17 00:00 98.4 80 23 131/69 (89) 100 09/25/17 20:01 100 Nasal Cannula 2.00 09/25/17 20:00 98.2 78 28 87/43 (58) 98 09/25/17 18:00 75 09/25/17 16:00 98.0 78 16 150/56 (87) 95 09/25/17 16:00 65 09/25/17 14:00 85 09/26/17 09/26/17 09/27/17 15:00 23:00 07:00 Output Total 4000 ml Balance -4000 ml Hemodialysis 4000 ml . Laboratory Tests Test 09/26/17 04:00 White Blood Count 9.0 TH/MM3 Red Blood Count 2.67 MIL/MM3 Hemoglobin 8.0 GM/DL Hematocrit 24.1 % Mean Corpuscular Volume 90.3 FL Mean Corpuscular Hemoglobin 29.8 PG Mean Corpuscular Hemoglobin Concent 33.0 % Red Cell Distribution Width 20.9 % Platelet Count 278 TH/MM3 Mean Platelet Volume 8.7 FL Physical Exam GENERAL: awake and alert, NAD SKIN: Warm and very dry. No generalized rash HEAD: Atraumatic. Normocephalic. No temporal wasting, or tenderness. EYES: [place] conjunctiva. No petechia or hemorrhage. Pupils equal, round and reactive to light. Extraocular movements full and intact. No scleral icterus. EARS, NOSE AND THROAT: Nose without bleeding or purulent nasal discharge. Mucous membranes pink and moist. No oral lesions noted. NECK: Trachea midline. Supple and not tender, no meningeal signs CARDIOVASCULAR: Regular rate and rhythm. No murmurs, rubs or gallops heard RESPIRATORY: Clear to auscultation. Breath sounds equal bilaterally. No rales , wheezing or rhonchi ABDOMEN: Soft, non-tender, nondistended. Bowel sounds present and normoactive. No guarding. No rebound. No organomegaly. EXTREMITIES: No clubbing, cyanosis, or edema. Has bilateral BKA, with a well- healed stump. LUE - slightly less swollen, has areas that are mor indurated but not tender, not red and skin desquamating in whole LUE. RUE AVF ok. Central line L groin looks ok NEUROLOGICAL: Non-focal PSYCHIATRIC: Normal affect, calm and cooperative. LINE: L groin central line with no evidence of infection Assessment & Plan Remarks IMPRESSION Klebsiella ESBL bacteremia, likely due to L groin line - exhanged over wire - line exchange done 09/12 S/P Rx cellulitis LUE, better; swelling better - S/P I and D hematoma Primary adrenal insufficiency Previous treatment for recent staph epi and bryon sepsis, completed treatment July 11 ESRD, on HD, MWF Known PVD Hx central venous occlusion RECOMMENDATION Continue Invanz Repeat BC from his L groin Follow C/S Monitor progress Follow Louann Berman MD Sep 26, 2017 13:32
--- NOTE | 2017-09-26 13:47 | PD.ONC.PN ---
Subjective Subjective Remarks Afebrile overnight. Patient resting in bed. Feeling tired after dialysis this morning. Objective Data Date Time Temp Pulse Resp B/P (MAP) Pulse Ox O2 Delivery O2 Flow Rate FiO2 09/26/17 10:00 93 09/26/17 08:27 97 09/26/17 08:00 74 09/26/17 08:00 98.5 74 20 121/60 (80) 91 09/26/17 04:00 98.0 78 17 165/72 (103) 100 09/26/17 00:00 98.4 80 23 131/69 (89) 100 09/25/17 20:01 100 Nasal Cannula 2.00 09/25/17 20:00 98.2 78 28 87/43 (58) 98 09/25/17 18:00 75 09/25/17 16:00 98.0 78 16 150/56 (87) 95 09/25/17 16:00 65 09/25/17 14:00 85 09/26/17 09/26/17 09/26/17 07:00 15:00 23:00 Intake Total 1054 ml Output Total 0 ml 4000 ml Balance 1054 ml -4000 ml Result Diagram: 09/26/17 0400 09/24/17 0530 Laboratory Results Laboratory Tests Test 09/25/17 20:00 09/26/17 04:00 Prothrombin Time 10.9 SEC 10.9 SEC Prothromb Time International Ratio 1.1 RATIO 1.1 RATIO Activated Partial Thromboplast Time 41.7 SEC 54.1 SEC White Blood Count 9.0 TH/MM3 Red Blood Count 2.67 MIL/MM3 Hemoglobin 8.0 GM/DL Hematocrit 24.1 % Mean Corpuscular Volume 90.3 FL Mean Corpuscular Hemoglobin 29.8 PG Mean Corpuscular Hemoglobin Concent 33.0 % Red Cell Distribution Width 20.9 % Platelet Count 278 TH/MM3 Mean Platelet Volume 8.7 FL Administered Medications Medications (Trade) Dose Ordered Sig/Nohelia Route PRN Reason Start Time Stop Time Status Last Admin Dose Admin Sodium Chloride (NS Flush) 2 ml BID IV FLUSH 09/24/17 09:00 09/26/17 10:35 Miscellaneous Information 1 Q361D XX 09/23/17 23:15 09/23/17 23:15 Acetaminophen/ Hydrocodone Bitart ([place] 5-325 Mg) 1 tab Q4H PRN PO pain > 4 09/24/17 00:30 09/26/17 12:45 Alprazolam (Xanax) 1 mg Q12HR PO 09/24/17 09:00 09/26/17 12:45 Fludrocortisone Acetate (Florinef) 0.1 mg DAILY PO 09/24/17 09:00 09/26/17 12:46 Pantoprazole Sodium (Protonix) 40 mg DAILY PO 09/24/17 09:00 09/26/17 10:35 Sevelamer Carbonate (Renvela) 2,400 mg TIDAC PO 09/24/17 08:00 09/26/17 12:45 Heparin Sodium/ Dextrose 250 ml @ 14 mls/hr TITRATE PRN IV Coagulation Management 09/24/17 00:45 09/25/17 20:01 Famotidine (Pepcid) 10 mg BID PO 09/24/17 21:00 09/26/17 10:35 Warfarin Sodium (Coumadin) 4 mg DAILY@16 PO 09/24/17 16:46 09/25/17 16:44 Ertapenem 500 mg/ Sodium Chloride 50 ml @ 200 mls/hr Q24H IV 09/25/17 18:00 09/25/17 16:45 Hydrocortisone (Cortef) 15 mg DAILY PO 09/26/17 09:00 09/26/17 12:46 Hydrocortisone (Cortef) 5 mg DAILY@2000 PO 09/25/17 20:00 09/25/17 22:02 Epoetin Eddie (Epogen Inj) 10,000 units UNSCH PRN IV PUSH WITH DIALYSIS 09/25/17 15:30 09/26/17 10:28 Gelatin (Gelfoam 12 Mm/7 Mm Top) 1 foam UNSCH PRN TOP SEE LABEL COMMENTS 09/25/17 15:30 09/26/17 10:28 Objective Remarks GENERAL: Middle aged male, lying supine in bed fatigued. SKIN: Warm and dry. HEAD: Normocephalic. EYES: No scleral icterus. No injection or drainage. NECK: Supple, trachea midline. CARDIOVASCULAR: +S1/S2 RESPIRATORY: anterior duarte clear. GASTROINTESTINAL: Abdomen soft, non-tender, nondistended. EXTREMITIES: No cyanosis NEUROLOGICAL: awake and alert, normal speech. Assessment/Plan Problem List: (1) History of DVT (deep vein thrombosis) ICD Codes: Z86.718 - Personal history of other venous thrombosis and embolism Plan: -- The patient has history of systemic lupus, multiple DVTs, pulmonary embolism and SVC syndrome -- He has a non-occlusive thrombus in the right IJ left subclavian vein. -- CT angiogram showed a chronic occlusive thrombus in the right lower lobe with chronic thromboses extending into the right atrium. -- Ultrasound August 24 shows a small amount of non-occlusive thrombus in the cephalic vein on the left. -- Repeat ultrasound of the upper extremity on September 06 showed non-occlusive superficial thrombus in the left cephalic vein similar from previous. -- Recommend anticoagulant therapy with Coumadin as this can be reversed with his recent GI bleeding Assessment 47 y/o male with history of ESRD on dialysis, multiple DVTs, pulmonary embolism and SVC syndrome; hematology consulted for anticoagulant recommendations --had recent GI bleed-->presented to the emergency room on 08/12/2017 with upper GI bleed. required banding of active esophageal varices. Plan 1. continue heparin bridge to coumadin 2. monitor CBC, INR Attending Statement The exam, history, and the medical decision-making described in the above note were completed with the assistance of the mid-level provider. I reviewed and agree with the findings presented. I attest that I had a [id number] encounter with the patient on the same day, and personally performed and documented my assessment and findings in the medical record. Pt seen and examined. L arm less swollen, L hand normal. L forearm dressing dry. Pt reports dressing change, no bleeding, no other site of bleeding. Hgb stable at 8.0. Discussed w/ Dr. Torre. Cont bridge to therapeutic INR. Oly Bowling Sep 26, 2017 13:47 Jennifer Gonzalez MD Sep 26, 2017 17:24
--- NOTE | 2017-09-26 17:21 | HHI.PR ---
Subjective Remarks no complains of pain good po blood sugars averaging 70- 90s no low readings Objective Vitals Vital Signs Date Time Temp Pulse Resp B/P (MAP) Pulse Ox O2 Delivery O2 Flow Rate FiO2 09/26/17 16:00 98.0 85 20 123/49 (73) 09/26/17 16:00 85 09/26/17 14:00 93 09/26/17 13:45 13 09/26/17 12:00 97.9 87 16 115/56 (75) 09/26/17 12:00 80 09/26/17 10:00 93 09/26/17 08:27 97 09/26/17 08:00 74 09/26/17 08:00 98.5 74 20 121/60 (80) 91 09/26/17 04:00 98.0 78 17 165/72 (103) 100 09/26/17 00:00 98.4 80 23 131/69 (89) 100 09/25/17 20:01 100 Nasal Cannula 2.00 09/25/17 20:00 98.2 78 28 87/43 (58) 98 09/25/17 18:00 75 I/O 09/25/17 09/25/17 09/25/17 09/26/17 09/26/17 09/26/17 07:00 15:00 23:00 07:00 15:00 23:00 Intake Total 340 ml 379 ml 939 ml 1054 ml Output Total 0 ml 0 ml 0 ml 0 ml 4000 ml Balance 340 ml 379 ml 939 ml 1054 ml -4000 ml Intake Oral 240 ml 240 ml 600 ml 960 ml IV Total 100 ml 139 ml 339 ml 94 ml Output Urine Total 0 ml 0 ml 0 ml 0 ml Hemodialysis 4000 ml # Bowel Movements 0 0 1 0 Result Diagram: 09/26/17 0400 09/24/17 0530 Objective Remarks awake and alert, in no acute distress anicteric lungs no rales regular rhythm abdomen soft, nontender lower extremities no edema, bilateral AKA right UE AV fistula= + bruit, Left arm- wound packing in place, + surrounding edema left groin - triple lumen catheter in place neuro exam non focal A/P Problem List: (1) Primary adrenal insufficiency ICD Code: E27.1 - Primary adrenocortical insufficiency Status: Chronic Assessment and Plan Mr. Mercado is a 47 y/o male with a history of end-stage renal disease on hemodialysis, SLE, CAD, COPD/asthma, multiple DVTs, multiple PEs, bilateral BKA , and anxiety who was transferred back to [place] after undergoing endocrinology evaluation at [facility] in [place] from 09/14 until 09/23 following a lengthy hospitalization here from 08/12-09/14. The patient was experiencing hypoglycemia during his hospitalization here that was persistent despite treatment with D10W. He was found to have primary adrenal insufficiency , a right UE DVT, and a left arm abscess in AC s/p I and D now - all while at [facility]. He is transferred back [place] [facility] [place] medical management. Primary Adrenal Insufficiency - ACTH elevated per records from [facility] - Florinef 0.1 mg p.o. qday - Hydrocortisone 15 mg q a.m. and 5 mg q pm - will need outpatient endocrinology f/u - will monitor blood sugar and blood pressure closely RUE DVT right lower lobe thrombus SVC thrombosis right atrial thrombus History of multiple DVTs/PE - Heparin drip - bridged to Coumadin- increase to 5 mg daily coumadin . ff INR - Dr Gonzalez ff Klebsiella Sepsis- Left AC abscess s/p I and D- wound edges clean- with edema - wound care nurse ff - appreciate recommendations - continue Ivanz 500 mg qday - infectious disease specialist ff Hypoglycemia= resolved likely secondary to adrenal insufficiency - resolved on p.o. hydrocortisone = per [facility] documentation and D10 was weaned effectively good readings decrease monitoring tid and hs Hypertension- started on cozaar daily ESRD on HD - last dialysis at [facility] on 09/23 -Dr. Merlos ff for HD arrangement - monitor renal function Anemia of CKD Chronic anxiety - continue Xanax 1 mg p.o. BID S/P Upper GI bleed with esophageal varices GERD - H and H stable - continue Protonix and Pepcid SLE positive per records review - not on any intermediate designer medication for SLE Bilateral BKA - PT consult per patient was in the course of evaluation for prosthesis when acute medical problems came up DVT prophylaxis - SCDs/TEDs PT/OT consult for deconditioning transfer to medical floor - Maribel Torre MD Sep 26, 2017 17:21
[2017-09-26] MEDS: WARFARIN SOD 4 MG TAB PO SCH (17:54)
[2017-09-26] MEDS: ERTAPENEM IV SCH (17:58)
[2017-09-26] MEDS: SODIUM CHLORIDE 0.9% IV SCH (17:58)
[2017-09-26] MEDS: HEPARIN 25,000 UNITS-D5W 250 ML - PREMIX IV PRN (20:18)
[2017-09-26] MEDS ORDERED: ACETAMINOPHEN/HYDROcodone 325 MG/5 MG TAB PO ONE (20:45)
[2017-09-27] VITALS (7 sets, daily range): BP systolic 93–142; BP diastolic 51–66; PULSE 72–84; RESP 10–19; TEMP 98–98.6; O2SAT 94–100
[2017-09-27] MEDS: LOSARTAN 25 MG TAB PO SCH (07:59)
[2017-09-27] MEDS: PANTOPRAZOLE SOD 40 MG DELAYED RELEASE TAB PO SCH (07:59)
[2017-09-27] MEDS: FAMOTIDINE 20 MG TAB PO SCH ×2 (07:59→21:09)
[2017-09-27] MEDS: ALPRAZolam 1 MG TAB PO SCH ×2 (07:59→21:08)
[2017-09-27] MEDS: SEVELAMER CARBONATE 800 MG TAB PO SCH ×3 (07:59→16:56)
[2017-09-27] MEDS: HYDROCORTISONE 10 MG TAB PO SCH ×2 (07:59→21:08)
[2017-09-27] MEDS: FLUDROCORTISONE ACETATE 0.1 MG TAB PO SCH (07:59)
[2017-09-27] MEDS: SODIUM CHLORIDE 0.9% FLUSH 10 ML FLUSH IV FLUSH SCH ×2 (08:00→21:00)
--- NOTE | 2017-09-27 10:16 | HHI.NPPN ---
Subjective History of Present Illness 47-year-old male with history of multiple medical problems including end-stage renal disease, hypertension, DVTs, multiple failed dialysis access disease but now is a functional AV dialysis fistula who was recently hostile eyes at this institution noted to have persisting hypoglycemia relative hypotension who is referred to [facility] in [place] for further evaluation by endocrinology. Patient apparently diagnosed as having primary hypoaldosteronism and has been started on Florinef as well as hydrocortisone by mouth. Also underwent incision and drainage of an infected hematoma of the left upper extremity. Patient has been transferred back to this institution. Interval History Pt states he is feeling well today. s/p HD yesterday Glucose levels improved with steroids. (Gladis Cole) Objective Data Data Vital Signs Date Time Temp Pulse Resp B/P (MAP) Pulse Ox O2 Delivery O2 Flow Rate FiO2 09/27/17 08:57 98 21 09/27/17 08:00 98.5 84 15 107/51 (69) 09/27/17 08:00 84 09/27/17 04:00 98.4 75 12 93/55 (68) 100 09/27/17 00:00 98.6 81 19 112/55 (74) 100 09/26/17 20:09 97 21 09/26/17 20:00 98.2 92 22 106/58 (74) 09/26/17 18:00 88 09/26/17 16:00 98.0 85 20 123/49 (73) 09/26/17 16:00 85 09/26/17 14:00 93 09/26/17 13:45 13 09/26/17 12:00 97.9 87 16 115/56 (75) 09/26/17 12:00 80 (Gladis Cole) -: 09/26/17 0400 09/24/17 0530 Microbiology 09/26/17 Aerobic Blood Culture, Received Pending 09/26/17 Anaerobic Blood Culture, Received Pending Medication Review Current Medications Medications (Trade) Dose Ordered Sig/Nohelia Route Start Time Stop Time Status Last Admin (NS Flush) 2 ml UNSCH PRN IV FLUSH 09/23/17 23:15 (NS Flush) 2 ml BID IV FLUSH 09/24/17 09:00 09/27/17 08:00 (Tylenol) 650 mg Q4H PRN PO 09/23/17 23:15 (Zofran Inj) 4 mg Q6H PRN IVP 09/23/17 23:15 (Narcan Inj) 0.4 mg UNSCH PRN IV PUSH 09/23/17 23:15 Miscellaneous Information 1 Q361D XX 09/23/17 23:15 09/23/17 23:15 ([place] 5-325 Mg) 1 tab Q4H PRN PO 09/24/17 00:30 09/26/17 20:15 (Xanax) 1 mg Q12HR PO 09/24/17 09:00 09/27/17 07:59 (Florinef) 0.1 mg DAILY PO 09/24/17 09:00 09/27/17 07:59 (Protonix) 40 mg DAILY PO 09/24/17 09:00 09/27/17 07:59 (Renvela) 2,400 mg TIDAC PO 09/24/17 08:00 09/27/17 07:59 (Proair Hfa Inh) 2 puff Q6H PRN INH 09/24/17 00:30 (Pill Splitter) 1 ea UNSCH PRN OTHER 09/24/17 00:45 Heparin Sodium/ Dextrose 250 ml @ 14 mls/hr TITRATE PRN IV 09/24/17 00:45 09/26/17 20:18 (Pepcid) 10 mg BID PO 09/24/17 21:00 09/27/17 07:59 Ertapenem 500 mg/ Sodium Chloride 50 ml @ 200 mls/hr Q24H IV 09/25/17 18:00 09/26/17 17:58 (Cortef) 15 mg DAILY PO 09/26/17 09:00 09/27/17 07:59 (Cortef) 5 mg DAILY@2000 PO 09/25/17 20:00 09/26/17 20:14 Sodium Chloride 1,000 ml @ 0 mls/hr Q0M PRN OTHER 09/25/17 15:30 Sodium Chloride 1,000 ml @ 200 mls/hr Q5H PRN IV 09/25/17 15:30 Sodium Chloride 1,000 ml @ 0 mls/hr Q0M PRN OTHER 09/25/17 15:30 (Mannitol Inj) 12.5 gm UNSCH PRN IV 09/25/17 15:30 Albumin Human 100 ml @ 60 mls/hr UNSCH PRN IV 09/25/17 15:30 (NS Flush) 5 ml UNSCH PRN IV FLUSH 09/25/17 15:30 (Zofran Inj) 4 mg UNSCH PRN IV PUSH 09/25/17 15:30 (Tylenol) 650 mg UNSCH PRN PO 09/25/17 15:30 (Benadryl) 25 mg UNSCH PRN PO 09/25/17 15:30 (Nitrostat Sl) 0.4 mg UNSCH PRN SL 09/25/17 15:30 (Catapres) 0.1 mg UNSCH PRN PO 09/25/17 15:30 (Epogen Inj) 10,000 units UNSCH PRN IV PUSH 09/25/17 15:30 09/26/17 10:28 (Gelfoam 12 Mm/7 Mm Top) 1 foam UNSCH PRN TOP 09/25/17 15:30 09/26/17 10:28 (Cozaar) 25 mg DAILY@0700 PO 09/27/17 07:00 09/27/17 07:59 (Coumadin) 4 mg DAILY@1600 PO 09/26/17 17:30 09/26/17 17:54 (Gladis Cole) Physical Exam General Appearance: Comfortable (Gladis Cole) Eyes Eye Exam: Sclera White (Gladis Cole) Pulmonary Resp Exam: Clear Bilaterally, Breath Sounds Equal, No Distress (Gladis Cole) Cardiology CV Exam: Regular, Normal Sinus Rhythm (Gladis Cole) Gastrointestinal/Abdomen GI Exam: Soft, Non-Tender (Gladis Cole) Integumentary Skin Exam: Clear, Warm (Gladis Cole) Extremeties Extremities Exam: No Edema (Gladis Cole) Neurologic Neuro Exam: Alert, Awake, Speech Clear (Gladis Cole) Psychiatric Psych Exam: Appropriate Responses (Gladis Cole) Assessment/Plan Discussed Condition With: Patient Problem List: (1) ESRD (end stage renal disease) on dialysis ICD Codes: N18.6 - End stage renal disease; Z99.2 - Dependence on renal dialysis Status: Chronic Plan: Continue HD MWF as per outpatient schedule. Medications should be adjusted with the patient's end-stage renal disease when indicated. Avoid gadolinium. (2) Anemia of renal disease ICD Codes: D63.1 - Anemia in chronic kidney disease Status: Chronic Plan: Continue Procrit for anemia renal disease as ordered. (3) Primary adrenal insufficiency ICD Codes: E27.1 - Primary adrenocortical insufficiency Status: Chronic Plan: Continue Florinef as well as Cortef as recommended by endocrinology at [facility]. (4) History of DVT (deep vein thrombosis) ICD Codes: Z86.718 - Personal history of other venous thrombosis and embolism Plan: Noted patient now on Coumadin and may require this indefinitely. There have been compliance issues with this patient in regard to medications and monitoring of INR and PTT may very be difficult as an outpatient secondary to poor peripheral access as well as compliance issues. I will defer to hematology in regard to management. (5) Esophageal varices determined by endoscopy ICD Codes: I85.00 - Esophageal varices without bleeding Status: Chronic (6) Abscess of left upper extremity ICD Codes: L02.414 - Cutaneous abscess of left upper limb Status: Chronic Plan: Status post drainage at [facility]. Patient requires Invanz until September 28, 2017. (Gladis Cole) Plan The exam, history, and the medical decision-making described in the above note were completed with the assistance of the PA-Bailey. I reviewed and agree with the findings presented. (Clarence Merlos MD) Gladis Cole Sep 27, 2017 10:16 Clarence Merlos MD Sep 28, 2017 18:00
--- NOTE | 2017-09-27 10:47 | HHI.IDPN ---
Subjective Subjective Remarks 47 year old male, transferred back to [facility] for continued care. He was transferred for work-up of recurrent hypoglycemia. He was found to have primary adrenal insufficiency. Prior to transfer he has foound to have Kleb ESBL+ line rerlatred bacteremia, from a groin line which was replaced. In [facility] he was found to have infected hematoma in his LUE, no info on C/S. has known ESRD and on HD. Has AVF in his RUE Notes reviewed Afebrile Not SOB BP ok Repeat BC done 09/26 - pending Records from [facility] reviewed Cath tip - <15 cfu GNR and Coag Neg Staph Antibiotics Current Medications Invanz Medications (Trade) Dose Ordered Sig/Nohelia Route Start Time Stop Time Status Last Admin (NS Flush) 2 ml UNSCH PRN IV FLUSH 09/23/17 23:15 (NS Flush) 2 ml BID IV FLUSH 09/24/17 09:00 09/27/17 08:00 (Tylenol) 650 mg Q4H PRN PO 09/23/17 23:15 (Zofran Inj) 4 mg Q6H PRN IVP 09/23/17 23:15 (Narcan Inj) 0.4 mg UNSCH PRN IV PUSH 09/23/17 23:15 Miscellaneous Information 1 Q361D XX 09/23/17 23:15 09/23/17 23:15 ([place] 5-325 Mg) 1 tab Q4H PRN PO 09/24/17 00:30 09/26/17 20:15 (Xanax) 1 mg Q12HR PO 09/24/17 09:00 09/27/17 07:59 (Florinef) 0.1 mg DAILY PO 09/24/17 09:00 09/27/17 07:59 (Protonix) 40 mg DAILY PO 09/24/17 09:00 09/27/17 07:59 (Renvela) 2,400 mg TIDAC PO 09/24/17 08:00 09/27/17 07:59 (Proair Hfa Inh) 2 puff Q6H PRN INH 09/24/17 00:30 (Pill Splitter) 1 ea UNSCH PRN OTHER 09/24/17 00:45 Heparin Sodium/ Dextrose 250 ml @ 14 mls/hr TITRATE PRN IV 09/24/17 00:45 09/26/17 20:18 (Pepcid) 10 mg BID PO 09/24/17 21:00 09/27/17 07:59 Ertapenem 500 mg/ Sodium Chloride 50 ml @ 200 mls/hr Q24H IV 09/25/17 18:00 09/26/17 17:58 (Cortef) 15 mg DAILY PO 09/26/17 09:00 09/27/17 07:59 (Cortef) 5 mg DAILY@2000 PO 09/25/17 20:00 09/26/17 20:14 Sodium Chloride 1,000 ml @ 0 mls/hr Q0M PRN OTHER 09/25/17 15:30 Sodium Chloride 1,000 ml @ 200 mls/hr Q5H PRN IV 09/25/17 15:30 Sodium Chloride 1,000 ml @ 0 mls/hr Q0M PRN OTHER 09/25/17 15:30 (Mannitol Inj) 12.5 gm UNSCH PRN IV 09/25/17 15:30 Albumin Human 100 ml @ 60 mls/hr UNSCH PRN IV 09/25/17 15:30 (NS Flush) 5 ml UNSCH PRN IV FLUSH 09/25/17 15:30 (Zofran Inj) 4 mg UNSCH PRN IV PUSH 09/25/17 15:30 (Tylenol) 650 mg UNSCH PRN PO 09/25/17 15:30 (Benadryl) 25 mg UNSCH PRN PO 09/25/17 15:30 (Nitrostat Sl) 0.4 mg UNSCH PRN SL 09/25/17 15:30 (Catapres) 0.1 mg UNSCH PRN PO 09/25/17 15:30 (Epogen Inj) 10,000 units UNSCH PRN IV PUSH 09/25/17 15:30 09/26/17 10:28 (Gelfoam 12 Mm/7 Mm Top) 1 foam UNSCH PRN TOP 09/25/17 15:30 09/26/17 10:28 (Cozaar) 25 mg DAILY@0700 PO 09/27/17 07:00 09/27/17 07:59 (Coumadin) 4 mg DAILY@1600 PO 09/26/17 17:30 09/26/17 17:54 Lines Groin line Past Medical History Nonocclusive thrombus of the right internal jugular and left subclavian vein. Lupus nephritis. End-stage renal disease on hemodialysis. Coronary artery disease. COPD. Multiple DVTs and PEs. Gastroesophageal reflux disease (GERD). Peripheral arterial disease. Primary adrenal insufficiency. History of tracheostomy and reversal. Bilateral below-knee amputation. AV graft of the right upper extremity. History of resection of the distal aspect of the right second and third fingers. Allergies: Coded Allergies: iodine (Unverified Allergy, Severe, blisters, 08/12/17) morphine (Unverified Allergy, Severe, Itching, 08/12/17) potassium iodide (Unverified Allergy, Severe, blisters, 08/12/17) povidone-iodine (Unverified Allergy, Severe, blisters, 08/12/17) sodium iodide (Unverified Allergy, Severe, blisters, 08/12/17) sodium iodide (Unverified Allergy, Severe, blisters, 08/12/17) Objective . Vital Signs Date Time Temp Pulse Resp B/P (MAP) Pulse Ox O2 Delivery O2 Flow Rate FiO2 09/27/17 08:57 98 21 09/27/17 08:00 98.5 84 15 107/51 (69) 09/27/17 08:00 84 09/27/17 04:00 98.4 75 12 93/55 (68) 100 09/27/17 00:00 98.6 81 19 112/55 (74) 100 09/26/17 20:09 97 21 09/26/17 20:00 98.2 92 22 106/58 (74) 09/26/17 18:00 88 09/26/17 16:00 98.0 85 20 123/49 (73) 09/26/17 16:00 85 09/26/17 14:00 93 09/26/17 13:45 13 09/26/17 12:00 97.9 87 16 115/56 (75) 09/26/17 12:00 80 . Laboratory Tests Test 09/26/17 04:00 White Blood Count 9.0 TH/MM3 Red Blood Count 2.67 MIL/MM3 Hemoglobin 8.0 GM/DL Hematocrit 24.1 % Mean Corpuscular Volume 90.3 FL Mean Corpuscular Hemoglobin 29.8 PG Mean Corpuscular Hemoglobin Concent 33.0 % Red Cell Distribution Width 20.9 % Platelet Count 278 TH/MM3 Mean Platelet Volume 8.7 FL Microbiology Date/Time Source Procedure Growth Status 09/26/17 15:12 Blood Line Aerobic Blood Culture Pending Received 09/26/17 15:12 Blood Line Anaerobic Blood Culture Pending Received Physical Exam GENERAL: awake and alert, NAD SKIN: Warm and very dry. No generalized rash HEAD: Atraumatic. Normocephalic. No temporal wasting, or tenderness. EYES: [place] conjunctiva. No petechia or hemorrhage. Pupils equal, round and reactive to light. Extraocular movements full and intact. No scleral icterus. EARS, NOSE AND THROAT: Nose without bleeding or purulent nasal discharge. Mucous membranes pink and moist. No oral lesions noted. NECK: Trachea midline. Supple and not tender, no meningeal signs CARDIOVASCULAR: Regular rate and rhythm. No murmurs, rubs or gallops heard RESPIRATORY: Clear to auscultation. Breath sounds equal bilaterally. No rales , wheezing or rhonchi ABDOMEN: Soft, non-tender, nondistended. Bowel sounds present and normoactive. No guarding. No rebound. No organomegaly. EXTREMITIES: No clubbing, cyanosis, or edema. Has bilateral BKA, with a well- healed stump. LUE - slightly less swollen, has areas that are mor indurated but not tender, not red and skin desquamating in whole LUE. RUE AVF ok. Central line L groin looks ok NEUROLOGICAL: Non-focal PSYCHIATRIC: Normal affect, calm and cooperative. LINE: L groin central line with no evidence of infection Assessment & Plan Remarks IMPRESSION Klebsiella ESBL bacteremia, likely due to L groin line - exchanged over wire - line exchange done 09/12 S/P Rx cellulitis LUE, better; swelling better - S/P I and D hematoma Primary adrenal insufficiency Previous treatment for recent staph epi and bryon sepsis, completed treatment July 11 ESRD, on HD, MWF Known PVD Hx central venous occlusion RECOMMENDATION Continue Invanz - plan 6 weeks from last (+) BC - end date Oct 23 Follow repeat BC May need longer course if repeat BC (+) again Venous access difficult with this patient due to central venous occlusion - increased of repeat line related infection Follow C/S Monitor progress Follow temps I will be OOT 09/28-10/03 Other ID covering in my absence Louann Barney MD Sep 27, 2017 10:47
[2017-09-27] MEDS: ERTAPENEM IV SCH (16:55)
[2017-09-27] MEDS: SODIUM CHLORIDE 0.9% IV SCH (16:55)
[2017-09-27] MEDS: WARFARIN SOD 4 MG TAB PO SCH (16:56)
--- NOTE | 2017-09-27 17:47 | HHI.PR ---
Subjective Remarks no complains telemetry sinus good sats Objective Vitals Vital Signs Date Time Temp Pulse Resp B/P (MAP) Pulse Ox O2 Delivery O2 Flow Rate FiO2 09/27/17 16:00 81 09/27/17 16:00 98.0 79 15 142/66 (91) 09/27/17 12:00 72 09/27/17 12:00 98.1 76 17 141/63 (89) 09/27/17 08:57 98 21 09/27/17 08:00 98.5 84 15 107/51 (69) 09/27/17 08:00 84 09/27/17 04:00 98.4 75 12 93/55 (68) 100 09/27/17 00:00 98.6 81 19 112/55 (74) 100 09/26/17 20:09 97 21 09/26/17 20:00 98.2 92 22 106/58 (74) 09/26/17 18:00 88 I/O 09/26/17 09/26/17 09/26/17 09/27/17 09/27/17 09/27/17 07:00 15:00 23:00 07:00 15:00 23:00 Intake Total 1054 ml 686 ml 581 ml Output Total 0 ml 4000 ml 0 ml 0 ml Balance 1054 ml -4000 ml 686 ml 581 ml Intake Oral 960 ml 500 ml 480 ml IV Total 94 ml 186 ml 101 ml Output Urine Total 0 ml 0 ml 0 ml Hemodialysis 4000 ml # Bowel Movements 0 0 0 Result Diagram: 09/26/17 0400 09/24/17 0530 Objective Remarks awake and alert, in no acute distress anicteric lungs no rales regular rhythm abdomen soft, nontender lower extremities no edema, bilateral AKA right UE AV fistula= + bruit, Left arm- wound packing in place, + decrease swelling left groin - triple lumen catheter in place neuro exam non focal A/P Problem List: (1) Primary adrenal insufficiency ICD Code: E27.1 - Primary adrenocortical insufficiency Status: Chronic Assessment and Plan Mr. Mercado is a 47 y/o male with a history of end-stage renal disease on hemodialysis, SLE, CAD, COPD/asthma, multiple DVTs, multiple PEs, bilateral BKA , and anxiety who was transferred back to [place] after undergoing endocrinology evaluation at [facility] in [place] from 09/14 until 09/23 following a lengthy hospitalization here from 08/12-09/14. The patient was experiencing hypoglycemia during his hospitalization here that was persistent despite treatment with D10W. He was found to have primary adrenal insufficiency , a right UE DVT, and a left arm abscess in AC s/p I and D now - all while at [facility]. He is transferred back to [facility] for continued medical management. Primary Adrenal Insufficiency - ACTH elevated per records from [facility] - [place] 0.1 mg p.o. qday - Hydrocortisone 15 mg q a.m. and 5 mg q pm - will need outpatient endocrinology f/u - will monitor blood sugar and blood pressure closely RUE DVT right lower lobe thrombus SVC thrombosis right atrial thrombus History of multiple DVTs/PE - Heparin drip - bridged to Coumadin- increase to 5 mg daily coumadin . ff INR - Dr Gonzalez ff Klebsiella Sepsis- Left AC abscess s/p I and D- wound edges clean- with edema - wound care nurse ff - appreciate recommendations - continue Ivanz 500 mg qday till 10/23 - infectious disease specialist ff Hypoglycemia= resolved likely secondary to adrenal insufficiency - resolved on p.o. hydrocortisone = per [facility] documentation and D10 was weaned effectively good readings decrease monitoring tid and hs Hypertension- started on cozaar daily ESRD on HD - last dialysis at [facility] on 09/23 -Dr. Merlos ff for HD arrangement - monitor renal function Anemia of CKD Chronic anxiety - continue Xanax 1 mg p.o. BID S/P Upper GI bleed with esophageal varices GERD - H and H stable - continue Protonix and Pepcid SLE positive per records review - not on any fdc medication for SLE Bilateral BKA - PT consult per patient was in the course of evaluation for prosthesis when acute medical problems came up DVT prophylaxis - SCDs/TEDs PT/OT consult for deconditioning- Out of bed daily transfer to medical floor - Maribel Torre MD Sep 27, 2017 17:47
[2017-09-27] MEDS ORDERED: WARFARIN SOD 3 MG TAB PO ONE (18:30)
--- NOTE | 2017-09-27 20:38 | PD.ONC.PN ---
Subjective Subjective Remarks no complaints. No bleeding. No pt/inr today. Objective Data Date Time Temp Pulse Resp B/P (MAP) Pulse Ox O2 Delivery O2 Flow Rate FiO2 09/27/17 16:00 81 09/27/17 16:00 98.0 79 15 142/66 (91) 09/27/17 12:00 72 09/27/17 12:00 98.1 76 17 141/63 (89) 09/27/17 08:57 98 21 09/27/17 08:00 98.5 84 15 107/51 (69) 09/27/17 08:00 84 09/27/17 04:00 98.4 75 12 93/55 (68) 100 09/27/17 00:00 98.6 81 19 112/55 (74) 100 09/27/17 09/27/17 09/27/17 07:00 15:00 23:00 Intake Total 581 ml 668 ml Output Total 0 ml 0 ml Balance 581 ml 668 ml Result Diagram: 09/26/17 0400 09/24/17 0530 Laboratory Results Laboratory Tests Test 09/27/17 03:55 Activated Partial Thromboplast Time 55.5 SEC Culture Results Microbiology Date/Time Source Procedure Growth Status 09/26/17 15:12 Blood Line Aerobic Blood Culture - Preliminary NO GROWTH IN 1 DAY Resulted 09/26/17 15:12 Blood Line Anaerobic Blood Culture - Preliminary NO GROWTH IN 1 DAY Resulted Administered Medications Medications (Trade) Dose Ordered Sig/Nohelia Route PRN Reason Start Time Stop Time Status Last Admin Dose Admin Sodium Chloride (NS Flush) 2 ml BID IV FLUSH 09/24/17 09:00 09/27/17 08:00 Miscellaneous Information 1 Q361D XX 09/23/17 23:15 09/23/17 23:15 Acetaminophen/ Hydrocodone Bitart ([place] 5-325 Mg) 1 tab Q4H PRN PO pain > 4 09/24/17 00:30 09/26/17 20:15 Alprazolam (Xanax) 1 mg Q12HR PO 09/24/17 09:00 09/27/17 07:59 Fludrocortisone Acetate (Florinef) 0.1 mg DAILY PO 09/24/17 09:00 09/27/17 07:59 Pantoprazole Sodium (Protonix) 40 mg DAILY PO 09/24/17 09:00 09/27/17 07:59 Sevelamer Carbonate (Renvela) 2,400 mg TIDAC PO 09/24/17 08:00 09/27/17 16:56 Heparin Sodium/ Dextrose 250 ml @ 14 mls/hr TITRATE PRN IV Coagulation Management 09/24/17 00:45 09/26/17 20:18 Famotidine (Pepcid) 10 mg BID PO 09/24/17 21:00 09/27/17 07:59 Ertapenem 500 mg/ Sodium Chloride 50 ml @ 200 mls/hr Q24H IV 09/25/17 18:00 09/27/17 16:55 Hydrocortisone (Cortef) 15 mg DAILY PO 09/26/17 09:00 09/27/17 07:59 Hydrocortisone (Cortef) 5 mg DAILY@2000 PO 09/25/17 20:00 09/26/17 20:14 Epoetin Eddie (Epogen Inj) 10,000 units UNSCH PRN IV PUSH WITH DIALYSIS 09/25/17 15:30 09/26/17 10:28 Gelatin (Gelfoam 12 Mm/7 Mm Top) 1 foam UNSCH PRN TOP SEE LABEL COMMENTS 09/25/17 15:30 09/26/17 10:28 Losartan Potassium (Cozaar) 25 mg DAILY@0700 PO 09/27/17 07:00 09/27/17 07:59 Objective Remarks GENERAL: Middle aged male, lying supine in bed fatigued. SKIN: Warm and dry. HEAD: Normocephalic. EYES: No scleral icterus. No injection or drainage. NECK: Supple, trachea midline. CARDIOVASCULAR: +S1/S2 RESPIRATORY: anterior duarte clear. GASTROINTESTINAL: Abdomen soft, non-tender, nondistended. EXTREMITIES: No cyanosis. L upper arm brawny edema. Dressing L fore arm dry, no bleeding. Several tips of R hand digit amputated. BL BKA. NEUROLOGICAL: awake and alert, normal speech. Assessment/Plan Problem List: (1) History of DVT (deep vein thrombosis) ICD Codes: Z86.718 - Personal history of other venous thrombosis and embolism Plan: -- The patient has history of systemic lupus, multiple DVTs, pulmonary embolism and SVC syndrome -- He has a non-occlusive thrombus in the right IJ left subclavian vein. -- CT angiogram showed a chronic occlusive thrombus in the right lower lobe with chronic thromboses extending into the right atrium. -- Ultrasound August 24 shows a small amount of non-occlusive thrombus in the cephalic vein on the left. -- Repeat ultrasound of the upper extremity on September 06 showed non-occlusive superficial thrombus in the left cephalic vein similar from previous. -- Recommend anticoagulant therapy with Coumadin as this can be reversed with his recent GI bleeding 09/27/17. Multiple VTE, new RUE DVT, h.o RA thrombus. Anticoagulant therapy seem to decrease L arm swelling. Dry dressing placed over wound. No bleeding. Assessment 47 y/o male with history of ESRD on dialysis, multiple DVTs, pulmonary embolism and SVC syndrome; hematology consulted for anticoagulant recommendations --had recent GI bleed-->presented to the emergency room on 08/12/2017 with upper GI bleed. required banding of active esophageal varices. Plan 1. continue heparin bridge to coumadin 2. Check INR tomorrow. 3. Monitor for bleeding. Jennifer Gonzalez MD Sep 27, 2017 20:38
[2017-09-27] MEDS: ACETAMINOPHEN/HYDROcodone 325 MG/5 MG TAB PO PRN (21:08)
[2017-09-27] MEDS: HEPARIN 25,000 UNITS-D5W 250 ML - PREMIX IV PRN (21:10)
[2017-09-28] VITALS: BP 135/60; PULSE 79; RESP 20; TEMP 98.3; O2SAT 100
[2017-09-28 04:00] VITALS: BP 86/48; PULSE 74; RESP 19; TEMP 98; O2SAT 100
[2017-09-28 07:44] LABS: HEMATOCRIT 23.6 % (39.0-51.0); HEMOGLOBIN 7.7 GM/DL (13.0-17.0); MEAN CELL VOLUME 90.9 FL (80.0-100.0); MEAN CORPUSCULAR HEMOGLOBIN 29.8 PG (27.0-34.0); MEAN CORPUSCULAR HGB CONC 32.7 % (32.0-36.0); MEAN PLATELET VOLUME 8.7 FL (7.0-11.0); PLATELET COUNT 265 TH/MM3 (150-450); RED BLOOD COUNT 2.59 MIL/MM3 (4.50-5.90); RED CELL DISTRIBUTION WIDTH 20.1 % (11.6-17.2); WHITE BLOOD COUNT 6.1 TH/MM3 (4.0-11.0)
[2017-09-28] MEDS: HYDROCORTISONE 10 MG TAB PO SCH ×2 (07:48→21:23)
[2017-09-28] MEDS: PANTOPRAZOLE SOD 40 MG DELAYED RELEASE TAB PO SCH (07:48)
[2017-09-28] MEDS: LOSARTAN 25 MG TAB PO SCH (07:48)
[2017-09-28] MEDS: ALPRAZolam 1 MG TAB PO SCH ×2 (07:48→21:23)
[2017-09-28] MEDS: FLUDROCORTISONE ACETATE 0.1 MG TAB PO SCH (07:49)
[2017-09-28] MEDS: SEVELAMER CARBONATE 800 MG TAB PO SCH ×3 (07:49→17:16)
[2017-09-28] MEDS: FAMOTIDINE 20 MG TAB PO SCH ×2 (07:49→21:23)
[2017-09-28] MEDS: SODIUM CHLORIDE 0.9% FLUSH 10 ML FLUSH IV FLUSH SCH ×2 (07:50→21:26)
[2017-09-28 07:53] LABS: INTERNATIONAL NORMALIZED RATIO 1.2 RATIO; PROTHROMBIN TIME - PATIENT 12.6 SEC (9.8-11.6)
[2017-09-28 08:00] VITALS: BP 156/86; PULSE 80; RESP 18; TEMP 97.9
[2017-09-28 08:09] VITALS: O2SAT 95
[2017-09-28 08:12] LABS: ALBUMIN 2.7 GM/DL (3.4-5.0); BICARBONATE 27.9 MEQ/L (21.0-32.0); CALCIUM 8.9 MG/DL (8.5-10.1); CREATININE 9.15 MG/DL (0.60-1.30); PHOSPHORUS 4.7 MG/DL (2.5-4.9)
[2017-09-28] MEDS ORDERED: diphenhydrAMINE HCL 25 MG CAP PO PRN (12:00)
[2017-09-28] MEDS ORDERED: ACETAMINOPHEN 325 MG TAB PO PRN (12:00)
[2017-09-28] MEDS ORDERED: SODIUM CHLOR 0.9% 250 ML INJ 250 ML IV ONE (12:00)
--- NOTE | 2017-09-28 12:29 | PD.ONC.PN ---
Subjective Subjective Remarks Afebrile I feel like I'm having a little more shortness of breath Getting dialysis today No bleeding noted Objective Data Date Time Temp Pulse Resp B/P (MAP) Pulse Ox O2 Delivery O2 Flow Rate FiO2 09/28/17 08:09 95 09/28/17 08:00 97.9 80 18 156/86 (109) 09/28/17 08:00 80 09/28/17 04:00 98.0 74 19 86/48 (61) 100 09/28/17 00:00 98.3 79 20 135/60 (85) 100 09/27/17 20:00 98.5 83 10 130/61 (84) 94 09/27/17 16:00 81 09/27/17 16:00 98.0 79 15 142/66 (91) 09/28/17 09/28/17 09/28/17 07:00 15:00 23:00 Intake Total 562 ml Output Total 0 ml Balance 562 ml Result Diagram: 09/28/17 0430 09/28/17 0430 Laboratory Results Laboratory Tests Test 09/28/17 04:30 White Blood Count 6.1 TH/MM3 Red Blood Count 2.59 MIL/MM3 Hemoglobin 7.7 GM/DL Hematocrit 23.6 % Mean Corpuscular Volume 90.9 FL Mean Corpuscular Hemoglobin 29.8 PG Mean Corpuscular Hemoglobin Concent 32.7 % Red Cell Distribution Width 20.1 % Platelet Count 265 TH/MM3 Mean Platelet Volume 8.7 FL Prothrombin Time 12.6 SEC Prothromb Time International Ratio 1.2 RATIO Activated Partial Thromboplast Time 65.3 SEC Blood Urea Nitrogen 38 MG/DL Creatinine 9.15 MG/DL Random Glucose 77 MG/DL Albumin 2.7 GM/DL Calcium Level 8.9 MG/DL Phosphorus Level 4.7 MG/DL Sodium Level 138 MEQ/L Potassium Level 4.0 MEQ/L Chloride Level 97 MEQ/L Carbon Dioxide Level 27.9 MEQ/L Anion Gap 13 MEQ/L Estimat Glomerular Filtration Rate 8 ML/MIN Culture Results Microbiology Date/Time Source Procedure Growth Status 09/26/17 15:12 Blood Line Aerobic Blood Culture - Preliminary NO GROWTH IN 2 DAYS Resulted 09/26/17 15:12 Blood Line Anaerobic Blood Culture - Preliminary NO GROWTH IN 2 DAYS Resulted Administered Medications Medications (Trade) Dose Ordered Sig/Nohelia Route PRN Reason Start Time Stop Time Status Last Admin Dose Admin Sodium Chloride (NS Flush) 2 ml BID IV FLUSH 09/24/17 09:00 09/28/17 07:50 Miscellaneous Information 1 Q361D XX 09/23/17 23:15 09/23/17 23:15 Acetaminophen/ Hydrocodone Bitart ([place] 5-325 Mg) 1 tab Q4H PRN PO pain > 4 09/24/17 00:30 09/27/17 21:08 Alprazolam (Xanax) 1 mg Q12HR PO 09/24/17 09:00 09/28/17 07:48 Fludrocortisone Acetate (Florinef) 0.1 mg DAILY PO 09/24/17 09:00 09/28/17 07:49 Pantoprazole Sodium (Protonix) 40 mg DAILY PO 09/24/17 09:00 09/28/17 07:48 Sevelamer Carbonate (Renvela) 2,400 mg TIDAC PO 09/24/17 08:00 09/28/17 07:49 Heparin Sodium/ Dextrose 250 ml @ 14 mls/hr TITRATE PRN IV Coagulation Management 09/24/17 00:45 09/27/17 21:10 Famotidine (Pepcid) 10 mg BID PO 09/24/17 21:00 09/28/17 07:49 Ertapenem 500 mg/ Sodium Chloride 50 ml @ 200 mls/hr Q24H IV 09/25/17 18:00 09/27/17 16:55 Hydrocortisone (Cortef) 15 mg DAILY PO 09/26/17 09:00 09/28/17 07:48 Hydrocortisone (Cortef) 5 mg DAILY@2000 PO 09/25/17 20:00 09/27/17 21:08 Epoetin Eddie (Epogen Inj) 10,000 units UNSCH PRN IV PUSH WITH DIALYSIS 09/25/17 15:30 09/26/17 10:28 Gelatin (Gelfoam 12 Mm/7 Mm Top) 1 foam UNSCH PRN TOP SEE LABEL COMMENTS 09/25/17 15:30 09/26/17 10:28 Losartan Potassium (Cozaar) 25 mg DAILY@0700 PO 09/27/17 07:00 09/28/17 07:48 Objective Remarks GENERAL: Middle aged male, lying supine in bed in no acute distress SKIN: Warm and dry. HEAD: Normocephalic. EYES: No scleral icterus. No injection or drainage. NECK: Supple, trachea midline. CARDIOVASCULAR: +S1/S2 RESPIRATORY: Clear anteriorly. GASTROINTESTINAL: Abdomen soft, non-tender, nondistended. EXTREMITIES: No cyanosis. L upper arm brawny edema. Dressing L fore arm dry, no bleeding. Several tips of R hand digit amputated. BL BKA. NEUROLOGICAL: No obvious focal deficit. Moving all extremities. Normal speech. Assessment/Plan Problem List: (1) History of DVT (deep vein thrombosis) ICD Codes: Z86.718 - Personal history of other venous thrombosis and embolism Plan: -- The patient has history of systemic lupus, multiple DVTs, pulmonary embolism and SVC syndrome -- He has a non-occlusive thrombus in the right IJ left subclavian vein. -- CT angiogram showed a chronic occlusive thrombus in the right lower lobe with chronic thromboses extending into the right atrium. -- Ultrasound August 24 shows a small amount of non-occlusive thrombus in the cephalic vein on the left. -- Repeat ultrasound of the upper extremity on September 06 showed non-occlusive superficial thrombus in the left cephalic vein similar from previous. -- Recommend anticoagulant therapy with Coumadin as this can be reversed with his recent GI bleeding 09/27/17. Multiple VTE, new RUE DVT, h.o RA thrombus. Anticoagulant therapy seem to decrease L arm swelling. Dry dressing placed over wound. No bleeding. Assessment 47 y/o male with history of ESRD on dialysis, multiple DVTs, pulmonary embolism and SVC syndrome; hematology consulted for anticoagulant recommendations --had recent GI bleed-->presented to the emergency room on 08/12/2017 with upper GI bleed. required banding of active esophageal varices. Plan 1. continue heparin bridge to coumadin 2. Transfuse 1 unit packed red blood cells for hemoglobin of 7.7 with complaints of increased shortness of breath 3. Monitor INR Attending Statement Agree with above. Monitor for bleeding as anticoagulation titrated. Apurva Ocasio Sep 28, 2017 12:29 Jennifer Gonzalez MD Sep 28, 2017 20:28
[2017-09-28] MEDS: EPOETIN ALFA 10,000 UNITS/ML VIAL IV PUSH PRN (15:34)
--- NOTE | 2017-09-28 16:25 | HHI.PR ---
Subjective Remarks seen during hemodialysis feels "tired a little" no melena or hematochezia no pain asking about when he is going home-- discussed with him about his DVT and still on heparin with coumadin bridging and still on IV antibiotics Objective Vitals Vital Signs Date Time Temp Pulse Resp B/P (MAP) Pulse Ox O2 Delivery O2 Flow Rate FiO2 09/28/17 08:09 95 09/28/17 08:00 97.9 80 18 156/86 (109) 09/28/17 08:00 80 09/28/17 04:00 98.0 74 19 86/48 (61) 100 09/28/17 00:00 98.3 79 20 135/60 (85) 100 09/27/17 20:00 98.5 83 10 130/61 (84) 94 I/O 09/27/17 09/27/17 09/27/17 09/28/17 09/28/17 09/28/17 07:00 15:00 23:00 07:00 15:00 23:00 Intake Total 581 ml 668 ml 562 ml Output Total 0 ml 0 ml 0 ml 3500 ml Balance 581 ml 668 ml 562 ml -3500 ml Intake Oral 480 ml 500 ml 480 ml IV Total 101 ml 168 ml 82 ml Output Urine Total 0 ml 0 ml 0 ml Hemodialysis 3500 ml # Bowel Movements 0 0 0 Result Diagram: 09/28/17 04309/28/17 043 Objective Remarks awake and alert, in no acute distress anicteric lungs no rales regular rhythm abdomen soft, nontender lower extremities no edema, bilateral BKA right UE AV fistula= + bruit, Left arm- wound packing in place, decrease swelling left groin - triple lumen catheter in place neuro exam non focal A/P Problem List: (1) Primary adrenal insufficiency ICD Code: E27.1 - Primary adrenocortical insufficiency Status: Chronic Assessment and Plan Mr. Mercado is a 47 y/o male with a history of end-stage renal disease on hemodialysis, SLE, CAD, COPD/asthma, multiple DVTs, multiple PEs, bilateral BKA , and anxiety who was transferred back to [place] after undergoing endocrinology evaluation at [facility] in [place] from 09/14 until 09/23 following a lengthy hospitalization here from 08/12-09/14. The patient was experiencing hypoglycemia during his hospitalization here that was persistent despite treatment with D10W. He was found to have primary adrenal insufficiency , a right UE DVT, and a left arm abscess in AC s/p I and D now - all while at [facility]. He is transferred back to [facility] for continued medical management. Primary Adrenal Insufficiency - ACTH elevated per records from [facility] 0.1 mg p.o. qday - Hydrocortisone 15 mg q a.m. and 5 mg q pm - will need outpatient endocrinology f/u - will monitor blood sugar and blood pressure closely RUE DVT right lower lobe thrombus SVC thrombosis right atrial thrombus History of multiple DVTs/PE - Heparin drip - bridged to Coumadin- increase to 5 mg daily coumadin . ff INR - Dr Gonzalez ff Klebsiella Sepsis- Left AC abscess s/p I and D- wound edges clean- with decrease swelling - wound care nurse ff - appreciate recommendations - continue Ivanz 500 mg qday - infectious disease specialist ff-per ID till 10/23 Hypoglycemia= resolved likely secondary to adrenal insufficiency - resolved on p.o. hydrocortisone = per [facility] documentation and D10 was weaned effectively good readings decrease monitoring tid and hs Hypertension- started on cozaar daily ESRD on HD -- - last dialysis at [facility] on 09/23 -Dr. Merlos ff for HD arrangement - monitor renal function Anemia of CKD Chronic anxiety - continue Xanax 1 mg p.o. BID S/P Upper GI bleed with esophageal varices GERD - H and H stable but feels tired - continue Protonix and Pepcid - Hematology ordered for 1 unit RBC transfusion today 09/28 SLE positive per records review - not on any half-way medication for SLE Bilateral BKA - PT consult per patient was in the course of evaluation for prosthesis when acute medical problems came up DVT prophylaxis - SCDs/TEDs PT/OT consult for deconditioning transfer to medical floor CM for DC planning - Maribel Torre MD Sep 28, 2017 16:25
[2017-09-28] MEDS: SODIUM CHLORIDE 0.9% IV SCH (17:16)
[2017-09-28] MEDS: WARFARIN SOD 5 MG TAB PO SCH (17:16)
[2017-09-28] MEDS: ERTAPENEM IV SCH (17:16)
--- NOTE | 2017-09-28 18:00 | HHI.NPPN ---
Subjective History of Present Illness 47-year-old male with history of multiple medical problems including end-stage renal disease, hypertension, DVTs, multiple failed dialysis access disease but now is a functional AV dialysis fistula who was recently hostile eyes at this institution noted to have persisting hypoglycemia relative hypotension who is referred to [facility] in [place] for further evaluation by endocrinology. Patient apparently diagnosed as having primary hypoaldosteronism and has been started on Florinef as well as hydrocortisone by mouth. Also underwent incision and drainage of an infected hematoma of the left upper extremity. Patient has been transferred back to this institution. Interval History Patient seen postdialysis. No verbal complaints. Treatment went well. Objective Data Data 09/28/17 09/29/17 18:59 06:59 Output Total 3500 ml Balance -3500 ml Hemodialysis 3500 ml Vital Signs Date Time Temp Pulse Resp B/P (MAP) Pulse Ox O2 Delivery O2 Flow Rate FiO2 09/28/17 08:09 95 09/28/17 08:00 97.9 80 18 156/86 (109) 09/28/17 08:00 80 09/28/17 04:00 98.0 74 19 86/48 (61) 100 09/28/17 00:00 98.3 79 20 135/60 (85) 100 09/27/17 20:00 98.5 83 10 130/61 (84) 94 -: 09/28/17 0430 09/28/17 0430 Physical Exam General Appearance: Comfortable Eyes Eye Exam: Sclera White Pulmonary Resp Exam: Clear Bilaterally, Breath Sounds Equal, No Distress Cardiology CV Exam: Regular, Normal Sinus Rhythm Gastrointestinal/Abdomen GI Exam: Soft, Non-Tender Integumentary Skin Exam: Clear, Warm Extremeties Extremities Exam: No Edema Neurologic Neuro Exam: Alert, Awake, Speech Clear Psychiatric Psych Exam: Appropriate Responses Assessment/Plan Discussed Condition With: Patient Problem List: (1) ESRD (end stage renal disease) on dialysis ICD Codes: N18.6 - End stage renal disease; Z99.2 - Dependence on renal dialysis Status: Chronic Plan: Continue HD MWF as per outpatient schedule. Patient has been out of the outpatient dialysis center for greater than 30 days and technically has been discharge from the facility. The dialysis facility will need authorization from the patient's insurance company to accept the patient back to the facility. Have requested case management and the group social worker at the dialysis facility coordinate this. Patient cannot be discharged until outpatient dialysis arranged. Medications should be adjusted with the patient's end-stage renal disease when indicated. Avoid gadolinium. (2) Anemia of renal disease ICD Codes: D63.1 - Anemia in chronic kidney disease Status: Chronic Plan: Continue Procrit for anemia renal disease as ordered. (3) Primary adrenal insufficiency ICD Codes: E27.1 - Primary adrenocortical insufficiency Status: Chronic Plan: Continue Florinef as well as Cortef as recommended by endocrinology at [facility]. (4) History of DVT (deep vein thrombosis) ICD Codes: Z86.718 - Personal history of other venous thrombosis and embolism Plan: Noted patient now on Coumadin and may require this indefinitely. There have been compliance issues with this patient in regard to medications and monitoring of INR and PTT may very be difficult as an outpatient secondary to poor peripheral access as well as compliance issues. I will defer to hematology in regard to management. (5) Esophageal varices determined by endoscopy ICD Codes: I85.00 - Esophageal varices without bleeding Status: Chronic (6) Abscess of left upper extremity ICD Codes: L02.414 - Cutaneous abscess of left upper limb Status: Chronic Plan: Status post drainage at [facility]. Patient requires Invanz until September 28, 2017. Clarence Merlos MD Sep 28, 2017 18:00
[2017-09-28 20:00] VITALS: BP 155/81; PULSE 80; PULSE 82; RESP 12; TEMP 98.2; O2SAT 100
[2017-09-28] MEDS: HEPARIN 25,000 UNITS-D5W 250 ML - PREMIX IV PRN (21:26)
[2017-09-28 22:00] VITALS: PULSE 75
[2017-09-29] VITALS (8 sets, daily range): BP systolic 125–165; BP diastolic 60–78; PULSE 70–84; RESP 13–27; TEMP 97.7–98.5; O2SAT 95–100
[2017-09-29 05:05] LABS: AUTOMATED NEUTROPHIL # 4.1 TH/MM3 (1.8-7.7); BASOPHIL # 0.1 TH/MM3 (0-0.2); EOSINOPHIL # 0.3 TH/MM3 (0-0.4); EOSINOPHIL % 4.6 % (0.0-4.0); HEMATOCRIT 24.4 % (39.0-51.0); HEMOGLOBIN 7.8 GM/DL (13.0-17.0); LYMPH % 12.2 % (9.0-44.0); LYMPHOCYTE # 0.7 TH/MM3 (1.0-4.8); MEAN CELL VOLUME 89.6 FL (80.0-100.0); MEAN CORPUSCULAR HEMOGLOBIN 28.7 PG (27.0-34.0); MEAN PLATELET VOLUME 8.1 FL (7.0-11.0); MONO % 10.3 % (0.0-8.0); MONOCYTE # 0.6 TH/MM3 (0-0.9); NEUT % 70.9 % (16.0-70.0); PLATELET COUNT 263 TH/MM3 (150-450); RED BLOOD COUNT 2.72 MIL/MM3 (4.50-5.90); RED CELL DISTRIBUTION WIDTH 20.7 % (11.6-17.2); WHITE BLOOD COUNT 5.8 TH/MM3 (4.0-11.0)
[2017-09-29 05:10] LABS: INTERNATIONAL NORMALIZED RATIO 1.5 RATIO; PROTHROMBIN TIME - PATIENT 15.6 SEC (9.8-11.6)
[2017-09-29] MEDS: SEVELAMER CARBONATE 800 MG TAB PO SCH ×3 (07:18→16:22)
[2017-09-29] MEDS: LOSARTAN 25 MG TAB PO SCH (07:19)
[2017-09-29] MEDS: SODIUM CHLORIDE 0.9% FLUSH 10 ML FLUSH IV FLUSH SCH ×2 (08:27→21:00)
[2017-09-29] MEDS: FAMOTIDINE 20 MG TAB PO SCH ×2 (08:28→21:41)
[2017-09-29] MEDS: FLUDROCORTISONE ACETATE 0.1 MG TAB PO SCH (08:28)
[2017-09-29] MEDS: PANTOPRAZOLE SOD 40 MG DELAYED RELEASE TAB PO SCH (08:28)
[2017-09-29] MEDS: HYDROCORTISONE 10 MG TAB PO SCH ×2 (08:29→21:40)
--- NOTE | 2017-09-29 09:34 | HHI.NPPN ---
Subjective History of Present Illness 47-year-old male with history of multiple medical problems including end-stage renal disease, hypertension, DVTs, multiple failed dialysis access disease but now is a functional AV dialysis fistula who was recently hostile eyes at this institution noted to have persisting hypoglycemia relative hypotension who is referred to [facility] in [place] for further evaluation by endocrinology. Patient apparently diagnosed as having primary hypoaldosteronism and has been started on Florinef as well as hydrocortisone by mouth. Also underwent incision and drainage of an infected hematoma of the left upper extremity. Patient has been transferred back to this institution. Interval History Pt voices no new complaints today (Gladis Cole) Objective Data Data Vital Signs Date Time Temp Pulse Resp B/P (MAP) Pulse Ox O2 Delivery O2 Flow Rate FiO2 09/29/17 04:00 98.1 70 20 127/68 (87) 09/29/17 04:00 70 09/29/17 00:00 76 09/29/17 00:00 98.5 84 20 141/70 (93) 100 09/28/17 22:00 75 09/28/17 20:00 98.2 82 12 155/81 (105) 100 09/28/17 20:00 80 (Gladis Cole) -: 09/29/17 0416 09/28/17 0430 Medication Review Current Medications Medications (Trade) Dose Ordered Sig/Nohelia Route Start Time Stop Time Status Last Admin (NS Flush) 2 ml UNSCH PRN IV FLUSH 09/23/17 23:15 (NS Flush) 2 ml BID IV FLUSH 09/24/17 09:00 09/29/17 08:27 (Tylenol) 650 mg Q4H PRN PO 09/23/17 23:15 (Zofran Inj) 4 mg Q6H PRN IVP 09/23/17 23:15 (Narcan Inj) 0.4 mg UNSCH PRN IV PUSH 09/23/17 23:15 Miscellaneous Information 1 Q361D XX 09/23/17 23:15 09/23/17 23:15 ([place] 5-325 Mg) 1 tab Q4H PRN PO 09/24/17 00:30 09/27/17 21:08 (Xanax) 1 mg Q12HR PO 09/24/17 09:00 09/28/17 21:23 (Florinef) 0.1 mg DAILY PO 09/24/17 09:00 09/29/17 08:28 (Protonix) 40 mg DAILY PO 09/24/17 09:00 09/29/17 08:28 (Renvela) 2,400 mg TIDAC PO 09/24/17 08:00 09/29/17 07:18 (Proair Hfa Inh) 2 puff Q6H PRN INH 09/24/17 00:30 (Pill Splitter) 1 ea UNSCH PRN OTHER 09/24/17 00:45 Heparin Sodium/ Dextrose 250 ml @ 14 mls/hr TITRATE PRN IV 09/24/17 00:45 09/28/17 21:26 (Pepcid) 10 mg BID PO 09/24/17 21:00 09/29/17 08:28 Ertapenem 500 mg/ Sodium Chloride 50 ml @ 200 mls/hr Q24H IV 09/25/17 18:00 09/28/17 17:16 (Cortef) 15 mg DAILY PO 09/26/17 09:00 09/29/17 08:29 (Cortef) 5 mg DAILY@2000 PO 09/25/17 20:00 09/28/17 21:23 Sodium Chloride 1,000 ml @ 0 mls/hr Q0M PRN OTHER 09/25/17 15:30 Sodium Chloride 1,000 ml @ 200 mls/hr Q5H PRN IV 09/25/17 15:30 Sodium Chloride 1,000 ml @ 0 mls/hr Q0M PRN OTHER 09/25/17 15:30 (Mannitol Inj) 12.5 gm UNSCH PRN IV 09/25/17 15:30 Albumin Human 100 ml @ 60 mls/hr UNSCH PRN IV 09/25/17 15:30 (NS Flush) 5 ml UNSCH PRN IV FLUSH 09/25/17 15:30 (Zofran Inj) 4 mg UNSCH PRN IV PUSH 09/25/17 15:30 (Tylenol) 650 mg UNSCH PRN PO 09/25/17 15:30 (Benadryl) 25 mg UNSCH PRN PO 09/25/17 15:30 (Nitrostat Sl) 0.4 mg UNSCH PRN SL 09/25/17 15:30 (Catapres) 0.1 mg UNSCH PRN PO 09/25/17 15:30 (Epogen Inj) 10,000 units UNSCH PRN IV PUSH 09/25/17 15:30 09/28/17 15:34 (Gelfoam 12 Mm/7 Mm Top) 1 foam UNSCH PRN TOP 09/25/17 15:30 09/26/17 10:28 (Cozaar) 25 mg DAILY@0700 PO 09/27/17 07:00 09/29/17 07:19 (Coumadin) 5 mg DAILY@1600 PO 09/28/17 16:00 09/28/17 17:16 (Tylenol) 650 mg Q4H PRN PO 09/28/17 12:00 (Benadryl) 25 mg Q4H PRN PO 09/28/17 12:00 (Gladis Cole) Physical Exam General Appearance: Comfortable (Gladis Cole) Eyes Eye Exam: Sclera White (Gladis Cole) Pulmonary Resp Exam: Clear Bilaterally, Breath Sounds Equal, No Distress (Gladis Cole) Cardiology CV Exam: Regular, Normal Sinus Rhythm (Gladis Cole) Gastrointestinal/Abdomen GI Exam: Soft, Non-Tender (Gladis Cole) Integumentary Skin Exam: Clear, Warm (Gldais Cole) Extremeties Extremities Exam: No Edema (Gladis Cole) Neurologic Neuro Exam: Alert, Awake, Speech Clear (Gladis Cole) Psychiatric Psych Exam: Appropriate Responses (Gladis Cole) Assessment/Plan Discussed Condition With: Patient Problem List: (1) ESRD (end stage renal disease) on dialysis ICD Codes: N18.6 - End stage renal disease; Z99.2 - Dependence on renal dialysis Status: Chronic Plan: Continue HD MWF as per outpatient schedule. Patient has been out of the outpatient dialysis center for greater than 30 days and technically has been discharge from the facility. The dialysis facility will need authorization from the patient's insurance company to accept the patient back to the facility. Have requested case management and the social insurance analyst at the dialysis facility coordinate this. Patient cannot be discharged until outpatient dialysis arranged. Medications should be adjusted with the patient's end-stage renal disease when indicated. Avoid gadolinium. (2) Anemia of renal disease ICD Codes: D63.1 - Anemia in chronic kidney disease Status: Chronic Plan: Continue Procrit for anemia renal disease as ordered. (3) Primary adrenal insufficiency ICD Codes: E27.1 - Primary adrenocortical insufficiency Status: Chronic Plan: Continue Florinef as well as Cortef as recommended by endocrinology at [facility]. (4) History of DVT (deep vein thrombosis) ICD Codes: Z86.718 - Personal history of other venous thrombosis and embolism Plan: Noted patient now on Coumadin and may require this indefinitely. There have been compliance issues with this patient in regard to medications and monitoring of INR and PTT may very be difficult as an outpatient secondary to poor peripheral access as well as compliance issues. I will defer to hematology in regard to management. (5) Esophageal varices determined by endoscopy ICD Codes: I85.00 - Esophageal varices without bleeding Status: Chronic (6) Abscess of left upper extremity ICD Codes: L02.414 - Cutaneous abscess of left upper limb Status: Chronic Plan: Status post drainage at [facility]. Invanz finished September 28, 2017. (Gladis Cole) Gladis Cole Sep 29, 2017 09:34 Clarence Merlos MD Oct 01, 2017 09:49
--- NOTE | 2017-09-29 11:55 | HHI.PR ---
Subjective Remarks no complains feels sad- wants to go home for halie denies any pain Objective Vitals Vital Signs Date Time Temp Pulse Resp B/P (MAP) Pulse Ox O2 Delivery O2 Flow Rate FiO2 09/29/17 04:00 98.1 70 20 127/68 (87) 09/29/17 04:00 70 09/29/17 00:00 76 09/29/17 00:00 98.5 84 20 141/70 (93) 100 09/28/17 22:00 75 09/28/17 20:00 98.2 82 12 155/81 (105) 100 09/28/17 20:00 80 I/O 09/28/17 09/28/17 09/28/17 09/29/17 09/29/17 09/29/17 07:00 15:00 23:00 07:00 15:00 23:00 Intake Total 562 ml 818 ml 500 ml Output Total 0 ml 3500 ml 0 ml 0 ml Balance 562 ml -3500 ml 818 ml 500 ml Intake Oral 480 ml 600 ml 500 ml IV Total 82 ml 218 ml Output Urine Total 0 ml 0 ml 0 ml Hemodialysis 3500 ml # Bowel Movements 0 0 1 Result Diagram: 09/29/17 0416 09/28/17 0430 Objective Remarks awake and alert, in no acute distress anicteric lungs no rales regular rhythm abdomen soft, nontender lower extremities no edema, bilateral BKA right UE AV fistula= + bruit, Left arm- wound packing in place, decrease swelling, good range of motion left groin - triple lumen catheter in place neuro exam non focal A/P Problem List: (1) Primary adrenal insufficiency ICD Code: E27.1 - Primary adrenocortical insufficiency Status: Chronic Assessment and Plan Mr. Mercado is a 47 y/o male with a history of end-stage renal disease on hemodialysis, SLE, CAD, COPD/asthma, multiple DVTs, multiple PEs, bilateral BKA , and anxiety who was transferred back to [place] after undergoing endocrinology evaluation at [facility] in [place] from 09/14 until 09/23 following a lengthy hospitalization here from 08/12-09/14. The patient was experiencing hypoglycemia during his hospitalization here that was persistent despite treatment with D10W. He was found to have primary adrenal insufficiency , a right UE DVT, and a left arm abscess in AC s/p I and D now - all while at [facility]. He is transferred back to [facility] for continued medical management. Primary Adrenal Insufficiency - ACTH elevated per records from [facility] - Florinef 0.1 mg p.o. qday - Hydrocortisone 15 mg q a.m. and 5 mg q pm - will need outpatient endocrinology f/u - will monitor blood sugar and blood pressure closely RUE DVT right lower lobe thrombus SVC thrombosis right atrial thrombus History of multiple DVTs/PE - Heparin drip - bridged to Coumadin- increase to 5 mg daily coumadin . ff INR - Dr Gonzalez ff Klebsiella Sepsis- Left AC abscess s/p I and D- wound edges clean- with decrease swelling - wound care nurse ff - appreciate recommendations - continue Ivanz 500 mg qday - infectious disease specialist ff-per ID till 10/23 Hypoglycemia= resolved likely secondary to adrenal insufficiency - resolved on p.o. hydrocortisone good readings decrease monitoring tid and hs Hypertension- started on cozaar daily ESRD on HD - last dialysis at [facility] on 09/23 -Dr. Merlos ff for HD arrangement - monitor renal function Anemia of CKD Chronic anxiety - appears depressed today- - longing to go home for the holidays- discussed with him - continue Xanax 1 mg p.o. BID S/P Upper GI bleed with esophageal varices GERD - H and H stable but feels tired - continue Protonix and Pepcid - Hematology ordered for 1 unit RBC transfusion today 09/28 SLE positive per records review - not on any terminal gauger medication for SLE Bilateral BKA - PT consult per patient was in the course of evaluation for prosthesis when acute medical problems came up DVT prophylaxis - SCDs/TEDs PT/OT -for deconditioning Dietitian consult- poor po appetitie- start on Nephro cupplements transfer to medical floor CM for DC planning - Maribel Torre MD Sep 29, 2017 11:55
[2017-09-29] MEDS: WARFARIN SOD 5 MG TAB PO SCH (16:23)
[2017-09-29] MEDS: SODIUM CHLORIDE 0.9% IV SCH ×2 (17:50→21:42)
[2017-09-29] MEDS: ERTAPENEM IV SCH ×2 (17:50→21:42)
[2017-09-29] MEDS: ALPRAZolam 1 MG TAB PO SCH (21:41)
[2017-09-30 00:30] VITALS: BP 125/75; PULSE 69; RESP 19; TEMP 98.1; O2SAT 95
[2017-09-30] MEDS: HEPARIN 25,000 UNITS-D5W 250 ML - PREMIX IV PRN (01:17)
[2017-09-30 04:15] VITALS: BP 120/80; PULSE 66; RESP 23; TEMP 97.3; O2SAT 97
[2017-09-30] MEDS: LOSARTAN 25 MG TAB PO SCH (06:49)
[2017-09-30 08:00] VITALS: BP 134/87; PULSE 69; RESP 18; TEMP 97.4; O2SAT 98
[2017-09-30] MEDS: PANTOPRAZOLE SOD 40 MG DELAYED RELEASE TAB PO SCH (09:00)
[2017-09-30] MEDS: SODIUM CHLORIDE 0.9% FLUSH 10 ML FLUSH IV FLUSH SCH ×2 (09:00→21:00)
--- NOTE | 2017-09-30 10:35 | HHI.PR ---
Subjective Remarks seen in hemodialysis no fever no pcain complains good po Objective Vitals Vital Signs Date Time Temp Pulse Resp B/P (MAP) Pulse Ox O2 Delivery O2 Flow Rate FiO2 09/30/17 08:00 97.4 69 18 134/87 (103) 98 09/30/17 04:15 97.3 66 23 120/80 (93) 97 09/30/17 00:30 98.1 69 19 125/75 (92) 95 09/29/17 23:00 79 09/29/17 21:30 95 09/29/17 20:15 98.3 74 19 127/71 (89) 96 09/29/17 16:00 81 13 125/60 (81) 96 09/29/17 16:00 81 09/29/17 12:00 97.7 81 21 134/67 (89) 09/29/17 12:00 81 I/O 09/29/17 09/29/17 09/29/17 09/30/17 09/30/17 09/30/17 07:00 15:00 23:00 07:00 15:00 23:00 Intake Total 500 ml 15 ml 1088 ml 350 ml Output Total 0 ml 0 ml 0 ml Balance 500 ml 15 ml 1088 ml 350 ml Intake Oral 500 ml 1030 ml 100 ml IV Total 15 ml 58 ml 250 ml Output Urine Total 0 ml 0 ml 0 ml # Bowel Movements 1 1 0 Result Diagram: 09/29/17 0416 09/28/17 0430 Objective Remarks awake and alert, in no acute distress anicteric lungs no rales regular rhythm abdomen soft, nontender lower extremities no edema, bilateral BKA right UE AV fistula= + bruit, Left arm- wound packing in place, decrease swelling, good range of motion, no induration left groin - triple lumen catheter in place neuro exam non focal A/P Problem List: (1) Primary adrenal insufficiency ICD Code: E27.1 - Primary adrenocortical insufficiency Status: Chronic Assessment and Plan Mr. Mercado is a 47 y/o male with a history of end-stage renal disease on hemodialysis, SLE, CAD, COPD/asthma, multiple DVTs, multiple PEs, bilateral BKA , and anxiety who was transferred back to [place] after undergoing endocrinology evaluation at [facility] in [place] from 09/14 until 09/23 following a lengthy hospitalization here from 08/12-09/14. The patient was experiencing hypoglycemia during his hospitalization here that was persistent despite treatment with D10W. He was found to have primary adrenal insufficiency , a right UE DVT, and a left arm abscess in AC s/p I and D now - all while at [facility]. He is transferred back to [facility] for continued medical management. Primary Adrenal Insufficiency - ACTH elevated per records from [facility] - Florinef 0.1 mg p.o. qday - Hydrocortisone 15 mg q a.m. and 5 mg q pm - will need outpatient endocrinology f/u - will monitor blood sugar and blood pressure closely RUE DVT right lower lobe thrombus SVC thrombosis right atrial thrombus History of multiple DVTs/PE - Heparin drip - bridged to Coumadin- increase to 5 mg daily coumadin . ff INR - Dr Gonzalez ff Klebsiella Sepsis- Left AC abscess s/p I and D- wound edges clean- with decrease swelling - wound care nurse ff - appreciate recommendations - continue Ivanz 500 mg qday till 10/23 per ID - infectious disease specialist ff-per ID till 10/23 - repeat blood cultures negative x 5 days Hypoglycemia= resolved likely secondary to adrenal insufficiency - resolved on p.o. hydrocortisone good readings decrease monitoring tid and hs Hypertension- started on cozaar daily ESRD on HD -- - last dialysis at [facility] on 09/23 -Dr. Merlos ff for HD arrangement - monitor renal function Anemia of CKD - ff H and H - Hematology ff Chronic anxiety - feels depressed- feeling better - wanting to go home - for the holidays- discussed with him- patient understands - continue Xanax 1 mg p.o. BID S/P Upper GI bleed with esophageal varices GERD - H and H stable but feels tired - continue Protonix and Pepcid - Hematology ordered for 1 unit RBC transfusion today 09/28 SLE positive per records review - not on any senior care medication for SLE Bilateral BKA - PT consult per patient was in the course of evaluation for prosthesis when acute medical problems came up DVT prophylaxis - SCDs/TEDs PT/OT -for deconditioning Dietitian ff- poor po appetitie- per patient improving start on Nephro cupplements CM for DC planning- on IV antibiotics - Maribel Torre MD Sep 30, 2017 10:35
[2017-09-30 11:19] LABS: INTERNATIONAL NORMALIZED RATIO 1.8 RATIO; PROTHROMBIN TIME - PATIENT 18.1 SEC (9.8-11.6)
--- NOTE | 2017-09-30 11:49 | PD.ONC.PN ---
Subjective Subjective Remarks Afebrile overnight. Patient seen in dialysis. He is really hoping to be able to go home soon. Denies any obvious bleeding. Objective Data Date Time Temp Pulse Resp B/P (MAP) Pulse Ox O2 Delivery O2 Flow Rate FiO2 09/30/17 08:00 97.4 69 18 134/87 (103) 98 09/30/17 04:15 97.3 66 23 120/80 (93) 97 09/30/17 00:30 98.1 69 19 125/75 (92) 95 09/29/17 23:00 79 09/29/17 21:30 95 09/29/17 20:15 98.3 74 19 127/71 (89) 96 09/29/17 16:00 81 13 125/60 (81) 96 09/29/17 16:00 81 09/29/17 12:00 97.7 81 21 134/67 (89) 09/29/17 12:00 81 09/30/17 09/30/17 09/30/17 07:00 15:00 23:00 Intake Total 350 ml Output Total 0 ml Balance 350 ml Result Diagram: 09/29/17 0416 09/28/17 0430 Laboratory Results Laboratory Tests Test 09/29/17 15:38 09/29/17 23:15 09/30/17 10:05 Activated Partial Thromboplast Time 41.3 SEC 34.2 SEC 44.7 SEC Prothrombin Time 18.1 SEC Prothromb Time International Ratio 1.8 RATIO Administered Medications Medications (Trade) Dose Ordered Sig/Nohelia Route PRN Reason Start Time Stop Time Status Last Admin Dose Admin Sodium Chloride (NS Flush) 2 ml BID IV FLUSH 09/24/17 09:00 09/29/17 21:00 Miscellaneous Information 1 Q361D XX 09/23/17 23:15 09/23/17 23:15 Acetaminophen/ Hydrocodone Bitart ([place] 5-325 Mg) 1 tab Q4H PRN PO pain > 4 09/24/17 00:30 09/27/17 21:08 Alprazolam (Xanax) 1 mg Q12HR PO 09/24/17 09:00 09/29/17 21:41 Fludrocortisone Acetate (Florinef) 0.1 mg DAILY PO 09/24/17 09:00 09/29/17 08:28 Pantoprazole Sodium (Protonix) 40 mg DAILY PO 09/24/17 09:00 09/29/17 08:28 Sevelamer Carbonate (Renvela) 2,400 mg TIDAC PO 09/24/17 08:00 09/29/17 16:22 Heparin Sodium/ Dextrose 250 ml @ 14 mls/hr TITRATE PRN IV Coagulation Management 09/24/17 00:45 09/30/17 01:17 Famotidine (Pepcid) 10 mg BID PO 09/24/17 21:00 09/29/17 21:41 Ertapenem 500 mg/ Sodium Chloride 50 ml @ 200 mls/hr Q24H IV 09/25/17 18:00 09/29/17 21:42 Hydrocortisone (Cortef) 15 mg DAILY PO 09/26/17 09:00 09/29/17 08:29 Hydrocortisone (Cortef) 5 mg DAILY@2000 PO 09/25/17 20:00 09/29/17 21:40 Epoetin Eddie (Epogen Inj) 10,000 units UNSCH PRN IV PUSH WITH DIALYSIS 09/25/17 15:30 09/28/17 15:34 Gelatin (Gelfoam 12 Mm/7 Mm Top) 1 foam UNSCH PRN TOP SEE LABEL COMMENTS 09/25/17 15:30 09/26/17 10:28 Losartan Potassium (Cozaar) 25 mg DAILY@0700 PO 09/27/17 07:00 09/30/17 06:49 Warfarin Sodium (Coumadin) 5 mg DAILY@1600 PO 09/28/17 16:00 09/29/17 16:23 Objective Remarks GENERAL: Middle aged male lying in hospital bed in dialysis. SKIN: Warm and dry. HEAD: Normocephalic. EYES: No injection or drainage. NECK: Supple, trachea midline. CARDIOVASCULAR: +S1/S2 RESPIRATORY: Breath sounds equal bilaterally. No accessory muscle use. GASTROINTESTINAL: Abdomen soft, non-tender, nondistended. EXTREMITIES: No cyanosis NEUROLOGICAL: awake and alert, normal speech Assessment/Plan Problem List: (1) History of DVT (deep vein thrombosis) ICD Codes: Z86.718 - Personal history of other venous thrombosis and embolism Plan: -- The patient has history of systemic lupus, multiple DVTs, pulmonary embolism and SVC syndrome -- He has a non-occlusive thrombus in the right IJ left subclavian vein. -- CT angiogram showed a chronic occlusive thrombus in the right lower lobe with chronic thromboses extending into the right atrium. -- Ultrasound August 24 shows a small amount of non-occlusive thrombus in the cephalic vein on the left. -- Repeat ultrasound of the upper extremity on September 06 showed non-occlusive superficial thrombus in the left cephalic vein similar from previous. -- Recommend anticoagulant therapy with Coumadin as this can be reversed with his recent GI bleeding 09/27/17. Multiple VTE, new RUE DVT, h.o RA thrombus. Anticoagulant therapy seem to decrease L arm swelling. Dry dressing placed over wound. No bleeding. 09/30: awaiting CBC today. may need blood transfusion. continue anticoagulation for now. Assessment 47 y/o male with history of ESRD on dialysis, multiple DVTs, pulmonary embolism and SVC syndrome; hematology consulted for anticoagulant recommendations --had recent GI bleed-->presented to the emergency room on 08/12/2017 with upper GI bleed. required banding of active esophageal varices. Plan 1. continue heparin/coumadin 2. await CBC today Attending Statement The exam, history, and the medical decision-making described in the above note were completed with the assistance of the mid-level provider. I reviewed and agree with the findings presented. I attest that I had a [id number] encounter with the patient on the same day, and personally performed and documented my assessment and findings in the medical record. Pt seen and examined. Eager to go home. INR 1.8. No overt bleeding. Bridge on UFH atleast 5 days now. Anticipate can DC UFH tomorrow, continue to titrate Coumadin. Reviewed action of Coumadin and how it is affected by foods, antibiotic, how much eats or don't eat. Oly Bowling Sep 30, 2017 11:49 Jennifer Gonzalez MD Sep 30, 2017 19:02
[2017-09-30] MEDS: SEVELAMER CARBONATE 800 MG TAB PO SCH ×3 (12:00→17:07)
[2017-09-30] MEDS: EPOETIN ALFA 10,000 UNITS/ML VIAL IV PUSH PRN (12:08)
[2017-09-30] MEDS: ALPRAZolam 1 MG TAB PO SCH ×2 (14:08→22:07)
[2017-09-30] MEDS: FAMOTIDINE 20 MG TAB PO SCH ×2 (14:09→22:07)
[2017-09-30] MEDS: HYDROCORTISONE 10 MG TAB PO SCH ×2 (14:21→22:08)
[2017-09-30] MEDS: FLUDROCORTISONE ACETATE 0.1 MG TAB PO SCH (14:21)
--- NOTE | 2017-09-30 14:27 | HHI.NPPN ---
Subjective History of Present Illness 47-year-old male with history of multiple medical problems including end-stage renal disease, hypertension, DVTs, multiple failed dialysis access disease but now is a functional AV dialysis fistula who was recently hostile eyes at this institution noted to have persisting hypoglycemia relative hypotension who is referred to [facility] in [place] for further evaluation by endocrinology. Patient apparently diagnosed as having primary hypoaldosteronism and has been started on Florinef as well as hydrocortisone by mouth. Also underwent incision and drainage of an infected hematoma of the left upper extremity. Patient has been transferred back to this institution. Interval History No new complaints Objective Data Data 09/30/17 10/01/17 19:00 07:00 Output Total 4000 ml Balance -4000 ml Hemodialysis 4000 ml Vital Signs Date Time Temp Pulse Resp B/P (MAP) Pulse Ox O2 Delivery O2 Flow Rate FiO2 09/30/17 08:00 97.4 69 18 134/87 (103) 98 09/30/17 04:15 97.3 66 23 120/80 (93) 97 09/30/17 00:30 98.1 69 19 125/75 (92) 95 09/29/17 23:00 79 09/29/17 21:30 95 09/29/17 20:15 98.3 74 19 127/71 (89) 96 09/29/17 16:00 81 13 125/60 (81) 96 09/29/17 16:00 81 -: 09/29/17 0416 09/28/17 0430 Medication Review Current Medications Medications (Trade) Dose Ordered Sig/Nohelia Route Start Time Stop Time Status Last Admin (NS Flush) 2 ml UNSCH PRN IV FLUSH 09/23/17 23:15 (NS Flush) 2 ml BID IV FLUSH 09/24/17 09:00 09/29/17 21:00 (Tylenol) 650 mg Q4H PRN PO 09/23/17 23:15 (Zofran Inj) 4 mg Q6H PRN IVP 09/23/17 23:15 (Narcan Inj) 0.4 mg UNSCH PRN IV PUSH 09/23/17 23:15 Miscellaneous Information 1 Q361D XX 09/23/17 23:15 09/23/17 23:15 ([place]ledge 5-325 Mg) 1 tab Q4H PRN PO 09/24/17 00:30 09/27/17 21:08 (Xanax) 1 mg Q12HR PO 09/24/17 09:00 09/30/17 14:08 (Florinef) 0.1 mg DAILY PO 09/24/17 09:00 09/29/17 08:28 (Protonix) 40 mg DAILY PO 09/24/17 09:00 09/29/17 08:28 (Renvela) 2,400 mg TIDAC PO 09/24/17 08:00 09/29/17 16:22 (Proair Hfa Inh) 2 puff Q6H PRN INH 09/24/17 00:30 09/30/17 14:08 (Pill Splitter) 1 ea UNSCH PRN OTHER 09/24/17 00:45 Heparin Sodium/ Dextrose 250 ml @ 14 mls/hr TITRATE PRN IV 09/24/17 00:45 09/30/17 01:17 (Pepcid) 10 mg BID PO 09/24/17 21:00 09/30/17 14:09 Ertapenem 500 mg/ Sodium Chloride 50 ml @ 200 mls/hr Q24H IV 09/25/17 18:00 09/29/17 21:42 (Cortef) 15 mg DAILY PO 09/26/17 09:00 09/29/17 08:29 (Cortef) 5 mg DAILY@2000 PO 09/25/17 20:00 09/29/17 21:40 Sodium Chloride 1,000 ml @ 0 mls/hr Q0M PRN OTHER 09/25/17 15:30 Sodium Chloride 1,000 ml @ 200 mls/hr Q5H PRN IV 09/25/17 15:30 Sodium Chloride 1,000 ml @ 0 mls/hr Q0M PRN OTHER 09/25/17 15:30 (Mannitol Inj) 12.5 gm UNSCH PRN IV 09/25/17 15:30 Albumin Human 100 ml @ 60 mls/hr UNSCH PRN IV 09/25/17 15:30 (NS Flush) 5 ml UNSCH PRN IV FLUSH 09/25/17 15:30 (Zofran Inj) 4 mg UNSCH PRN IV PUSH 09/25/17 15:30 (Tylenol) 650 mg UNSCH PRN PO 09/25/17 15:30 (Benadryl) 25 mg UNSCH PRN PO 09/25/17 15:30 (Nitrostat Sl) 0.4 mg UNSCH PRN SL 09/25/17 15:30 (Catapres) 0.1 mg UNSCH PRN PO 09/25/17 15:30 (Epogen Inj) 10,000 units UNSCH PRN IV PUSH 09/25/17 15:30 09/30/17 12:08 (Gelfoam 12 Mm/7 Mm Top) 1 foam UNSCH PRN TOP 09/25/17 15:30 09/26/17 10:28 (Cozaar) 25 mg DAILY@0700 PO 09/27/17 07:00 09/30/17 06:49 (Coumadin) 5 mg DAILY@1600 PO 09/28/17 16:00 09/29/17 16:23 (Tylenol) 650 mg Q4H PRN PO 09/28/17 12:00 (Benadryl) 25 mg Q4H PRN PO 09/28/17 12:00 Physical Exam General Appearance: Comfortable Eyes Eye Exam: Sclera White Pulmonary Resp Exam: Clear Bilaterally, Breath Sounds Equal, No Distress Cardiology CV Exam: Regular, Normal Sinus Rhythm Gastrointestinal/Abdomen GI Exam: Soft, Non-Tender Integumentary Skin Exam: Clear, Warm Extremeties Extremities Exam: No Edema Neurologic Neuro Exam: Alert, Awake, Speech Clear Psychiatric Psych Exam: Appropriate Responses Assessment/Plan Discussed Condition With: Patient Problem List: (1) ESRD (end stage renal disease) on dialysis ICD Codes: N18.6 - End stage renal disease; Z99.2 - Dependence on renal dialysis Status: Chronic Plan: Continue HD MWF as per outpatient schedule. Patient has been out of the outpatient dialysis center for greater than 30 days and technically has been discharge from the facility. The dialysis facility will need authorization from the patient's insurance company to accept the patient back to the facility. CM note reviewed 09/29 and still in process Patient cannot be discharged until outpatient dialysis arranged. Medications should be adjusted with the patient's end-stage renal disease when indicated. Avoid gadolinium. (2) Anemia of renal disease ICD Codes: D63.1 - Anemia in chronic kidney disease Status: Chronic Plan: Receives Procrit 10,000 MWF Check Fe panel and consider Venofer if needed (3) Primary adrenal insufficiency ICD Codes: E27.1 - Primary adrenocortical insufficiency Status: Chronic Plan: Continue Florinef as well as Cortef as recommended by endocrinology at [facility]. (4) History of DVT (deep vein thrombosis) ICD Codes: Z86.718 - Personal history of other venous thrombosis and embolism Plan: Noted patient now on Coumadin and may require this indefinitely. There have been compliance issues with this patient in regard to medications and monitoring of INR and PTT may very be difficult as an outpatient secondary to poor peripheral access as well as compliance issues. I will defer to hematology in regard to management. (5) Esophageal varices determined by endoscopy ICD Codes: I85.00 - Esophageal varices without bleeding Status: Chronic (6) Abscess of left upper extremity ICD Codes: L02.414 - Cutaneous abscess of left upper limb Status: Chronic Plan: Status post drainage at [facility]. Review of ID note says to continue Invanz until 10/23/17 Gladis Cloe Sep 30, 2017 14:27
[2017-09-30 16:00] VITALS: BP 110/74; PULSE 98; RESP 18; TEMP 97.7; O2SAT 93
[2017-09-30] MEDS: WARFARIN SOD 5 MG TAB PO SCH (16:03)
[2017-09-30 19:01] LABS: BASOPHIL # 0.1 TH/MM3 (0-0.2); BASOPHIL % 2.1 % (0.0-2.0); EOSINOPHIL # 0.3 TH/MM3 (0-0.4); EOSINOPHIL % 5.9 % (0.0-4.0); HEMATOCRIT 28.5 % (39.0-51.0); HEMOGLOBIN 9.3 GM/DL (13.0-17.0); LYMPH % 13.3 % (9.0-44.0); LYMPHOCYTE # 0.8 TH/MM3 (1.0-4.8); MEAN CELL VOLUME 90.7 FL (80.0-100.0); MEAN CORPUSCULAR HEMOGLOBIN 29.7 PG (27.0-34.0); MEAN CORPUSCULAR HGB CONC 32.8 % (32.0-36.0); MEAN PLATELET VOLUME 8.3 FL (7.0-11.0); MONO % 9.3 % (0.0-8.0); MONOCYTE # 0.5 TH/MM3 (0-0.9); NEUT % 69.4 % (16.0-70.0); PLATELET COUNT 283 TH/MM3 (150-450); RED BLOOD COUNT 3.14 MIL/MM3 (4.50-5.90); RED CELL DISTRIBUTION WIDTH 20.7 % (11.6-17.2); WHITE BLOOD COUNT 5.8 TH/MM3 (4.0-11.0)
[2017-09-30 19:25] LABS: % SATURATION IRON PROFILE 14.8 % (20-50); ALBUMIN 3.1 GM/DL (3.4-5.0); CALCIUM 9.2 MG/DL (8.5-10.1); CREATININE 5.69 MG/DL (0.60-1.30); IRON (FE) 35 MCG/DL (65-175); TOTAL IRON BINDING CAPACITY 237 MCG/DL (250-450)
[2017-09-30 19:28] LABS: FERRITIN 588 NG/ML (26-388)
[2017-09-30 19:32] LABS: PHOSPHORUS 2.6 MG/DL (2.5-4.9)
[2017-09-30 20:30] VITALS: BP 120/69; PULSE 64; RESP 18; TEMP 97.9; O2SAT 96
[2017-10-01] VITALS (9 sets, daily range): BP systolic 115–153; BP diastolic 65–73; PULSE 64–92; RESP 17–18; TEMP 97.1–98.8; O2SAT 89–97
[2017-10-01 03:59] LABS: PROTHROMBIN TIME - PATIENT 20.4 SEC (9.8-11.6)
[2017-10-01] MEDS: HEPARIN 25,000 UNITS-D5W 250 ML - PREMIX IV PRN (05:54)
[2017-10-01] MEDS: LOSARTAN 25 MG TAB PO SCH (05:55)
[2017-10-01 06:08] LABS: HEMATOCRIT 27.3 % (39.0-51.0); HEMOGLOBIN 8.9 GM/DL (13.0-17.0); MEAN CELL VOLUME 90.6 FL (80.0-100.0); MEAN CORPUSCULAR HEMOGLOBIN 29.5 PG (27.0-34.0); MEAN CORPUSCULAR HGB CONC 32.6 % (32.0-36.0); MEAN PLATELET VOLUME 8.2 FL (7.0-11.0); PLATELET COUNT 262 TH/MM3 (150-450); RED BLOOD COUNT 3.01 MIL/MM3 (4.50-5.90); RED CELL DISTRIBUTION WIDTH 20.4 % (11.6-17.2); WHITE BLOOD COUNT 4.9 TH/MM3 (4.0-11.0)
[2017-10-01 06:31] LABS: BICARBONATE 32.8 MEQ/L (21.0-32.0); CALCIUM 9.1 MG/DL (8.5-10.1); CREATININE 7.03 MG/DL (0.60-1.30); PHOSPHORUS 4.1 MG/DL (2.5-4.9)
[2017-10-01] MEDS: SODIUM CHLORIDE 0.9% FLUSH 10 ML FLUSH IV FLUSH SCH ×2 (09:00→21:00)
[2017-10-01] MEDS: SEVELAMER CARBONATE 800 MG TAB PO SCH ×3 (09:57→17:00)
[2017-10-01] MEDS: HYDROCORTISONE 10 MG TAB PO SCH ×2 (09:57→21:04)
[2017-10-01] MEDS: ALPRAZolam 1 MG TAB PO SCH ×2 (09:58→21:05)
[2017-10-01] MEDS: FAMOTIDINE 20 MG TAB PO SCH ×2 (09:58→21:05)
[2017-10-01] MEDS: FLUDROCORTISONE ACETATE 0.1 MG TAB PO SCH (09:58)
[2017-10-01] MEDS: PANTOPRAZOLE SOD 40 MG DELAYED RELEASE TAB PO SCH (09:58)
--- NOTE | 2017-10-01 11:26 | HHI.PR ---
Subjective Remarks no complains no fever or chills no pain Objective Vitals Vital Signs Date Time Temp Pulse Resp B/P (MAP) Pulse Ox O2 Delivery O2 Flow Rate FiO2 10/01/17 08:22 67 10/01/17 08:00 98.7 83 18 153/73 (99) 95 10/01/17 05:34 92 10/01/17 04:30 98.8 64 17 115/65 (82) 97 10/01/17 00:00 97.1 68 17 119/72 (88) 96 09/30/17 20:30 97.9 64 18 120/69 (86) 96 09/30/17 16:00 97.7 98 18 110/74 (86) 93 I/O 09/30/17 09/30/17 09/30/17 10/01/17 10/01/17 10/01/17 07:00 15:00 23:00 07:00 15:00 23:00 Intake Total 350 ml 850 ml 500 ml Output Total 0 ml 4000 ml 0 ml 0 ml Balance 350 ml -4000 ml 850 ml 500 ml Intake Oral 100 ml 850 ml 500 ml IV Total 250 ml Output Urine Total 0 ml 0 ml 0 ml Hemodialysis 4000 ml # Bowel Movements 0 0 0 Result Diagram: 10/01/17 0550 10/01/17 0550 Objective Remarks awake and alert, in no acute distress anicteric lungs no rales regular rhythm abdomen soft, nontender lower extremities no edema, bilateral BKA right UE AV fistula= + bruit, Left arm- wound packing in place, decrease swelling, good range of motion, no induration edges clean left groin - triple lumen catheter in place neuro exam non focal A/P Problem List: (1) Primary adrenal insufficiency ICD Code: E27.1 - Primary adrenocortical insufficiency Status: Chronic Assessment and Plan Mr. Mercado is a 47 y/o male with a history of end-stage renal disease on hemodialysis, SLE, CAD, COPD/asthma, multiple DVTs, multiple PEs, bilateral BKA , and anxiety who was transferred back to [place] after undergoing endocrinology evaluation at [facility] in [place] from 09/14 until 09/23 following a lengthy hospitalization here from 08/12-09/14. The patient was experiencing hypoglycemia during his hospitalization here that was persistent despite treatment with D10W. He was found to have primary adrenal insufficiency , a right UE DVT, and a left arm abscess in AC s/p I and D now - all while at [facility]. He is transferred back to [facility] for continued medical management. Primary Adrenal Insufficiency - ACTH elevated per records from [facility] - Florinef 0.1 mg p.o. qday - Hydrocortisone 15 mg q a.m. and 5 mg q pm - will need outpatient endocrinology f/u - will monitor blood sugar and blood pressure closely RUE DVT right lower lobe thrombus SVC thrombosis right atrial thrombus History of multiple DVTs/PE - Heparin drip - bridged to Coumadin- increase to 5 mg daily coumadin . ff INR 2.0 - Dr Gonzalez f - if IN therapeutic 2 days in a row will DC heparin Klebsiella Sepsis- Left AC abscess s/p I and D- wound edges clean- with decrease swelling - wound care nurse ff - appreciate recommendations - continue Ivanz 500 mg qday till 10/23 per ID - infectious disease specialist ff-per ID till 10/23 - repeat blood cultures negative x 5 days Hypoglycemia= resolved likely secondary to adrenal insufficiency - resolved on p.o. hydrocortisone good readings decrease monitoring tid and hs Hypertension- started on cozaar daily ESRD on HD -- - last dialysis at [facility] on 09/23 -Dr. Merlos ff for HD arrangement - monitor renal function Anemia of CKD - ff H and H - Hematology ff Chronic anxiety - feels depressed- feeling better - wanting to go home - for the holidays- discussed with him- patient understands - continue Xanax 1 mg p.o. 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
--- NOTE | 2017-10-01 15:02 | HHI.NPPN ---
Subjective History of Present Illness 47-year-old male with history of multiple medical problems including end-stage renal disease, hypertension, DVTs, multiple failed dialysis access disease but now is a functional AV dialysis fistula who was recently hostile eyes at this institution noted to have persisting hypoglycemia relative hypotension who is referred to [facility] in [place] for further evaluation by endocrinology. Patient apparently diagnosed as having primary hypoaldosteronism and has been started on Florinef as well as hydrocortisone by mouth. Also underwent incision and drainage of an infected hematoma of the left upper extremity. Patient has been transferred back to this institution. Interval History Patient with no verbal complaints today. Objective Data Data Vital Signs Date Time Temp Pulse Resp B/P (MAP) Pulse Ox O2 Delivery O2 Flow Rate FiO2 10/01/17 12:00 97.7 89 18 120/65 (83) 89 10/01/17 08:22 67 10/01/17 08:00 98.7 83 18 153/73 (99) 95 10/01/17 05:34 92 10/01/17 04:30 98.8 64 17 115/65 (82) 97 10/01/17 00:00 97.1 68 17 119/72 (88) 96 09/30/17 20:30 97.9 64 18 120/69 (86) 96 09/30/17 16:00 97.7 98 18 110/74 (86) 93 -: 10/01/17 0550 10/01/17 0550 Physical Exam General Appearance: Comfortable Eyes Eye Exam: Sclera White Pulmonary Resp Exam: Clear Bilaterally, Breath Sounds Equal, No Distress Cardiology CV Exam: Regular, Normal Sinus Rhythm Gastrointestinal/Abdomen GI Exam: Soft, Non-Tender Integumentary Skin Exam: Clear, Warm Extremeties Extremities Exam: No Edema Neurologic Neuro Exam: Alert, Awake, Speech Clear Psychiatric Psych Exam: Appropriate Responses Assessment/Plan Discussed Condition With: Patient Problem List: (1) ESRD (end stage renal disease) on dialysis ICD Codes: N18.6 - End stage renal disease; Z99.2 - Dependence on renal dialysis Status: Chronic Plan: Patient will have hemodialysis tomorrow because of the holiday schedule and subsequently resume his usual Tuesday schedule this coming Tuesday. Patient has been out of the outpatient dialysis center for greater than 30 days and technically has been discharge from the facility. The dialysis facility will need authorization from the patient's insurance company to accept the patient back to the facility. CM note reviewed 09/29 and still in process Patient cannot be discharged until outpatient dialysis insurance approves and arranged. Medications should be adjusted with the patient's end-stage renal disease when indicated. Avoid gadolinium. (2) Anemia of renal disease ICD Codes: D63.1 - Anemia in chronic kidney disease Status: Chronic Plan: Receives Procrit 10,000 MWF Check Fe panel and consider Venofer if needed (3) Primary adrenal insufficiency ICD Codes: E27.1 - Primary adrenocortical insufficiency Status: Chronic Plan: Continue Florinef as well as Cortef as recommended by endocrinology at [facility]. (4) History of DVT (deep vein thrombosis) ICD Codes: Z86.718 - Personal history of other venous thrombosis and embolism Plan: Noted patient now on Coumadin and may require this indefinitely. There have been compliance issues with this patient in regard to medications and monitoring of INR and PTT may very be difficult as an outpatient secondary to poor peripheral access as well as compliance issues. I will defer to hematology in regard to management. (5) Esophageal varices determined by endoscopy ICD Codes: I85.00 - Esophageal varices without bleeding Status: Chronic (6) Abscess of left upper extremity ICD Codes: L02.414 - Cutaneous abscess of left upper limb Status: Chronic Plan: Status post drainage at [facility]. Review of ID note says to continue Invanz until 10/23/17 Clarence Merlos MD Oct 01, 2017 15:02
[2017-10-01] MEDS: ERTAPENEM IV SCH (17:50)
[2017-10-01] MEDS: SODIUM CHLORIDE 0.9% IV SCH (17:50)
[2017-10-01] MEDS: WARFARIN SOD 5 MG TAB PO SCH (17:50)
[2017-10-02] MEDS: ACETAMINOPHEN/HYDROcodone 325 MG/5 MG TAB PO PRN (00:51)
[2017-10-02 01:11] VITALS: BP 128/60; PULSE 84; RESP 18; TEMP 98; O2SAT 95
[2017-10-02 05:35] VITALS: BP 124/60; PULSE 81; RESP 18; TEMP 97.3; O2SAT 97
[2017-10-02 05:55] LABS: INTERNATIONAL NORMALIZED RATIO 2.6 RATIO; PROTHROMBIN TIME - PATIENT 26.1 SEC (9.8-11.6)
[2017-10-02] MEDS: LOSARTAN 25 MG TAB PO SCH (06:26)
[2017-10-02 07:08] LABS: MEAN CELL VOLUME 91.9 FL (80.0-100.0); MEAN CORPUSCULAR HEMOGLOBIN 29.8 PG (27.0-34.0); MEAN CORPUSCULAR HGB CONC 32.4 % (32.0-36.0); MEAN PLATELET VOLUME 8.2 FL (7.0-11.0); PLATELET COUNT 188 TH/MM3 (150-450); RED BLOOD COUNT 2.13 MIL/MM3 (4.50-5.90); WHITE BLOOD COUNT 4.7 TH/MM3 (4.0-11.0)
[2017-10-02 07:50] LABS: HEMATOCRIT 19.6 % (39.0-51.0); HEMOGLOBIN 6.4 GM/DL (13.0-17.0)
[2017-10-02] MEDS: SEVELAMER CARBONATE 800 MG TAB PO SCH ×3 (08:00→17:00)
--- NOTE | 2017-10-02 08:17 | HHI.PR ---
Subjective Remarks feels sad- wants to go home for the holidays denies any pain ,nausea or vomiting BS - 84 no reported melena o rhematochezia or any outward signs of bleeding Objective Vitals Vital Signs Date Time Temp Pulse Resp B/P (MAP) Pulse Ox O2 Delivery O2 Flow Rate FiO2 10/02/17 05:35 97.3 81 18 124/60 (81) 97 10/02/17 01:11 98.0 84 18 128/60 (82) 95 10/01/17 20:17 98.5 92 18 138/65 (89) 95 10/01/17 17:10 95 21 10/01/17 16:00 97.6 89 18 145/72 (96) 95 10/01/17 12:00 97.7 89 18 120/65 (83) 89 10/01/17 08:22 67 I/O 10/01/17 10/01/17 10/01/17 10/02/17 10/02/17 10/02/17 07:00 15:00 23:00 07:00 15:00 23:00 Intake Total 500 ml 580 ml 84 ml Output Total 0 ml Balance 500 ml 580 ml 84 ml Intake Oral 500 ml 580 ml IV Total 84 ml Output Urine Total 0 ml # Bowel Movements 0 Result Diagram: 10/02/17 0630 10/01/17 0550 Objective Remarks awake and alert, in no acute distress anicteric lungs no rales regular rhythm abdomen soft, nontender lower extremities no edema, bilateral BKA right UE AV fistula= + bruit, Left arm- wound packing in place, decrease swelling, good range of motion, no induration edges clean left groin - triple lumen catheter in place neuro exam non focal A/P Problem List: (1) Primary adrenal insufficiency ICD Code: E27.1 - Primary adrenocortical insufficiency Status: Chronic Assessment and Plan Mr. Mercado is a 47 y/o male with a history of end-stage renal disease on hemodialysis, SLE, CAD, COPD/asthma, multiple DVTs, multiple PEs, bilateral BKA , and anxiety who was transferred back to [place] after undergoing endocrinology evaluation at [facility] in [place] from 09/14 until 09/23 following a lengthy hospitalization here from 08/12-09/14. The patient was experiencing hypoglycemia during his hospitalization here that was persistent despite treatment with D10W. He was found to have primary adrenal insufficiency , a right UE DVT, and a left arm abscess in AC s/p I and D now - all while at [facility]. He is transferred back to [facility] for continued medical management. Primary Adrenal Insufficiency - ACTH elevated per records from [facility] - Florinef 0.1 mg p.o. qday - Hydrocortisone 15 mg q a.m. and 5 mg q pm - will need outpatient endocrinology f/u - good BS readings RUE DVT right lower lobe thrombus SVC thrombosis right atrial thrombus History of multiple DVTs/PE - Heparin drip - bridged to Coumadin- increase to 5 mg daily coumadin . ff INR 2.0 - Dr Gonzalez ff - if INR therapeutic 2 days in a row will DC heparin Klebsiella Sepsis- Left AC abscess s/p I and D- wound edges clean- with decrease swelling - wound care nurse ff - appreciate recommendations - continue Ivanz 500 mg qday till 10/23 per ID - infectious disease specialist ff-per ID till 10/23 - repeat blood cultures negative x 5 days Hypoglycemia= resolved likely secondary to adrenal insufficiency - resolved on p.o. hydrocortisone good readings decrease monitoring tid and hs Hypertension- started on cozaar daily ESRD on HD -- - last dialysis at [facility] on 09/23 -Dr. Merlos ff for HD arrangement - monitor renal function Acute drop in Hgb with underlying Anemia of CKD S/P Upper GI bleed with esophageal varices GERD - H and H stable but feels tired - continue Protonix and Pepcid - Hematology ordered for 1 unit RBC transfusion 09/28 - ff H and H - type and x 2 units RBC and give 1 unit RBC now during HD - Hematology ff - GI consult Chronic anxiety - feels depressed- feeling better - wanting to go home - for the holidays- discussed with him- patient understands - continue Xanax 1 mg p.o. BID SLE positive per records review - not on any alf medication for SLE Bilateral BKA - PT consult per patient was in the course of evaluation for prosthesis when acute medical problems came up DVT prophylaxis - SCDs/TEDs PT/OT -for deconditioning Dietitian ff- poor po appetitie- per patient improving on Nephro cupplements CM for DC planning- on IV antibiotics - Maribel Torre MD Oct 02, 2017 08:17
[2017-10-02 08:49] VITALS: TEMP 97.5
[2017-10-02 09:00] LABS: INTERNATIONAL NORMALIZED RATIO 2.6 RATIO; PROTHROMBIN TIME - PATIENT 26.1 SEC (9.8-11.6)
[2017-10-02] MEDS: SODIUM CHLORIDE 0.9% FLUSH 10 ML FLUSH IV FLUSH SCH ×2 (09:00→21:50)
[2017-10-02] MEDS: ALPRAZolam 1 MG TAB PO SCH ×2 (09:00→21:49)
[2017-10-02] MEDS: HYDROCORTISONE 10 MG TAB PO SCH ×2 (09:00→21:49)
[2017-10-02] MEDS: PANTOPRAZOLE SOD 40 MG DELAYED RELEASE TAB PO SCH (09:00)
[2017-10-02] MEDS: FAMOTIDINE 20 MG TAB PO SCH ×2 (09:00→21:49)
[2017-10-02] MEDS: FLUDROCORTISONE ACETATE 0.1 MG TAB PO SCH (09:00)
[2017-10-02 12:37] VITALS: BP 114/56; PULSE 88; RESP 18; TEMP 97.2
--- NOTE | 2017-10-02 12:46 | PD.CONS ---
HPI History of Present Illness This is a 47 year old male with hx SLE, ESRD on HD, CAD, COPD, DVT, PE who was transferred from [facility] after an endocrinology evaluation. While there he was found to have right IJ thrombus. GI has been consulted for anemia with drop in hgb. He was 8.9 on admission and dropped to 6.4 today. Denies black tarry stool, hematemesis, abd pain, rectal bleeding. He had EGD 08/13/17 with banding of esophageal varices and finding large duodenal erosions and recommendation to repeat EGD in 2-4 weeks. He is on heparin and coumadin for DVT and PE. (Mely Maynard) PFSH Past Medical History End-stage renal disease on hemodialysis Lupus nephritis SLE CAD COPD/asthma Multiple DVTs and PEs PAD GERD Anemia of chronic kidney disease Anxiety Primary adrenal insufficiency . Past Surgical History Tracheostomy and reversal Cardiac stenting Bilateral TKA Dialysis graft Digital resection of right second and third fingers at distal IP joint . (Mely Maynard) Coded Allergies: iodine (Unverified Allergy, Severe, blisters, 08/12/17) morphine (Unverified Allergy, Severe, Itching, 08/12/17) potassium iodide (Unverified Allergy, Severe, blisters, 08/12/17) povidone-iodine (Unverified Allergy, Severe, blisters, 08/12/17) sodium iodide (Unverified Allergy, Severe, blisters, 08/12/17) sodium iodide (Unverified Allergy, Severe, blisters, 08/12/17) Family History Family history of hypertension; denies any family history of lupus, diabetes mellitus, or kidney disease . Social History Tobacco: Remote use over 15 years ago; smoked for about 5-7 years one pack per day Alcohol: Denies Illicit drugs: Denies . (Mely Maynard) Review of Systems Constitutional: DENIES: Fever Endocrine: DENIES: Polydipsia Eyes: DENIES: Blurred vision Ears, nose, mouth, throat: DENIES: Hearing loss Respiratory: DENIES: Cough Cardiovascular: DENIES: Chest pain Gastrointestinal: COMPLAINS OF: Constipation, DENIES: Abdominal pain, Black stools, Bloody stools, Diarrhea, Nausea, Vomiting, Hematemesis Genitourinary: DENIES: Hematuria Musculoskeletal: DENIES: Joint Swelling Neurologic: COMPLAINS OF: Abnormal gait (bilat amputee) Psychiatric: DENIES: Anxiety (Mely Maynard) GI Exam Vitals I&O Vital Signs Date Time Temp Pulse Resp B/P (MAP) Pulse Ox O2 Delivery O2 Flow Rate FiO2 10/02/17 12:37 97.2 88 18 114/56 (75) 10/02/17 08:49 97.5 10/02/17 05:35 97.3 81 18 124/60 (81) 97 10/02/17 01:11 98.0 84 18 128/60 (82) 95 10/01/17 20:17 98.5 92 18 138/65 (89) 95 10/01/17 17:10 95 21 10/01/17 16:00 97.6 89 18 145/72 (96) 95 I/O 10/01/17 10/01/17 10/01/17 10/02/17 10/02/17 10/02/17 07:00 15:00 23:00 07:00 15:00 23:00 Intake Total 500 ml 580 ml 84 ml 10 ml Output Total 0 ml 5000 ml Balance 500 ml 580 ml 84 ml -4990 ml Intake Oral 500 ml 580 ml IV Total 84 ml Blood Product IV Normal Saline Flush 10 ml Output Urine Total 0 ml Hemodialysis 5000 ml # Bowel Movements 0 Laboratory Test 10/01/17 15:00 10/01/17 22:00 10/02/17 04:30 10/02/17 06:30 Activated Partial Thromboplast Time 35.2 SEC 66.8 SEC 48.3 SEC Prothrombin Time 26.1 SEC Prothromb Time International Ratio 2.6 RATIO White Blood Count 4.7 TH/MM3 Red Blood Count 2.13 MIL/MM3 Hemoglobin 6.4 GM/DL Hematocrit 19.6 % Mean Corpuscular Volume 91.9 FL Mean Corpuscular Hemoglobin 29.8 PG Mean Corpuscular Hemoglobin Concent 32.4 % Red Cell Distribution Width 21.0 % Platelet Count 188 TH/MM3 Mean Platelet Volume 8.2 FL Test 10/02/17 08:39 Prothrombin Time 26.1 SEC Prothromb Time International Ratio 2.6 RATIO Activated Partial Thromboplast Time 36.3 SEC Date/Time Source Procedure Growth Status 09/26/17 15:12 Blood Line Aerobic Blood Culture - Final NO GROWTH IN 5 DAYS Complete 09/26/17 15:12 Blood Line Anaerobic Blood Culture - Final NO GROWTH IN 5 DAYS Complete Physical Examination HEENT: PERRL; normocephalic; atraumatic; no jaundice. CHEST: CTA CARDIAC: RRR ABDOMEN: Soft, nondistended, nontender; no hepatosplenomegaly; bowel sounds are present in all four quadrants. EXTREMITIES: No clubbing, cyanosis, or edema. bila BKA SKIN: Normal; no rash; no jaundice. LEARNING SUPPORT RESOURCE ROOM TEACHER: No focal deficits; alert and oriented times three. (Mely Maynard) Assessment and Plan Plan ASSESSMENT - anemia with drop in hgb - 8.9 on admission dropped to 6.4 normocytic. likely multifactorial. no obvious bleeding hx esophageal varices, EGD 08/13/17 with esophageal varices banded, large duodenal erosions. on coumadin and heparin gtt per hematology, INR is 2.6 - RUE DVT, PE, ESRD, primary adrenal insufficiency - per primary PLAN - EGD with rebanding after correction of INR - monitor HH - transfuse as needed - stat bleed scan if active bleeding - supportive care - further recs to follow This pt seen by myself and Dr Rodriguez and this note is written on his behalf (Mely Maynard) Physician Comments Seen and examined, plan as above. Will need endoscopic evaluation for anemia. Will follow up with you. (Chon Rodriguez MD) Mely Maynard Oct 02, 2017 12:46 Chon Rodriguez MD Oct 02, 2017 15:04
[2017-10-02] MEDS: WARFARIN SOD 5 MG TAB PO SCH (16:00)
[2017-10-02 16:43] VITALS: BP 103/47; PULSE 86; RESP 18; TEMP 98.2; O2SAT 91
[2017-10-02 17:00] LABS: HEMATOCRIT 30.2 % (39.0-51.0); HEMOGLOBIN 9.9 GM/DL (13.0-17.0)
[2017-10-02] MEDS: SODIUM CHLORIDE 0.9% IV SCH (18:29)
[2017-10-02] MEDS: ERTAPENEM IV SCH (18:29)
[2017-10-02 20:00] VITALS: BP 132/63; PULSE 90; RESP 18; TEMP 98.8; O2SAT 91
[2017-10-03] VITALS (9 sets, daily range): BP systolic 125–166; BP diastolic 60–99; PULSE 79–100; RESP 16–20; TEMP 97.7–98.8; O2SAT 92–98
[2017-10-03] MEDS: LOSARTAN 25 MG TAB PO SCH (05:31)
[2017-10-03 07:02] LABS: AUTOMATED NEUTROPHIL # 4.4 TH/MM3 (1.8-7.7); BASOPHIL # 0.1 TH/MM3 (0-0.2); BASOPHIL % 1.1 % (0.0-2.0); EOSINOPHIL # 0.2 TH/MM3 (0-0.4); EOSINOPHIL % 3.7 % (0.0-4.0); HEMATOCRIT 29.9 % (39.0-51.0); HEMOGLOBIN 9.7 GM/DL (13.0-17.0); LYMPH % 14.7 % (9.0-44.0); LYMPHOCYTE # 0.9 TH/MM3 (1.0-4.8); MEAN CELL VOLUME 90.8 FL (80.0-100.0); MEAN CORPUSCULAR HEMOGLOBIN 29.4 PG (27.0-34.0); MEAN CORPUSCULAR HGB CONC 32.4 % (32.0-36.0); MEAN PLATELET VOLUME 8.4 FL (7.0-11.0); MONOCYTE # 0.5 TH/MM3 (0-0.9); NEUT % 71.5 % (16.0-70.0); PLATELET COUNT 252 TH/MM3 (150-450); RED CELL DISTRIBUTION WIDTH 20.7 % (11.6-17.2); WHITE BLOOD COUNT 6.1 TH/MM3 (4.0-11.0)
[2017-10-03 07:05] LABS: INTERNATIONAL NORMALIZED RATIO 2.6 RATIO; PROTHROMBIN TIME - PATIENT 26.6 SEC (9.8-11.6)
[2017-10-03] MEDS: HYDROCORTISONE 10 MG TAB PO SCH ×2 (08:38→20:34)
[2017-10-03] MEDS: SEVELAMER CARBONATE 800 MG TAB PO SCH ×3 (08:38→16:48)
[2017-10-03] MEDS: FLUDROCORTISONE ACETATE 0.1 MG TAB PO SCH (08:38)
[2017-10-03] MEDS: FAMOTIDINE 20 MG TAB PO SCH ×2 (08:39→20:35)
[2017-10-03] MEDS: PANTOPRAZOLE SOD 40 MG DELAYED RELEASE TAB PO SCH (08:39)
[2017-10-03] MEDS: ALPRAZolam 1 MG TAB PO SCH ×2 (08:39→20:35)
[2017-10-03] MEDS: SODIUM CHLORIDE 0.9% FLUSH 10 ML FLUSH IV FLUSH SCH ×2 (08:40→20:35)
--- NOTE | 2017-10-03 12:47 | HHI.PR ---
Subjective Remarks no complains of pain or shortness of breath no fever or chills wanting to go home Objective Vitals Vital Signs Date Time Temp Pulse Resp B/P (MAP) Pulse Ox O2 Delivery O2 Flow Rate FiO2 10/03/17 08:25 98.1 100 16 132/99 (110) 98 10/03/17 04:00 98.8 81 18 136/68 (90) 92 10/03/17 00:00 98.4 87 18 136/64 (88) 92 10/02/17 20:00 98.8 90 18 132/63 (86) 91 10/02/17 16:43 98.2 86 18 103/47 (65) 91 10/02/17 12:37 97.2 88 18 114/56 (75) I/O 10/02/17 10/02/17 10/02/17 10/03/17 10/03/17 10/03/17 07:00 15:00 23:00 07:00 15:00 23:00 Intake Total 84 ml 250 ml 400 ml Output Total 5000 ml Balance 84 ml -4750 ml 400 ml Intake Oral 240 ml IV Total 84 ml Packed Cells 400 ml Blood Product IV Normal Saline Flush 10 ml Hemodialysis 5000 ml # Voids 0 # Bowel Movements 1 Result Diagram: 10/03/17 0630 10/01/17 0550 Objective Remarks awake and alert, in no acute distress anicteric lungs no rales regular rhythm abdomen soft, nontender lower extremities no edema, bilateral BKA right UE AV fistula= + bruit, Left arm- wound packing in place, decrease swelling, good range of motion, no induration edges clean left groin - triple lumen catheter in place neuro exam non focal A/P Problem List: (1) Primary adrenal insufficiency ICD Code: E27.1 - Primary adrenocortical insufficiency Status: Chronic Assessment and Plan Mr. Mercado is a 47 y/o male with a history of end-stage renal disease on hemodialysis, SLE, CAD, COPD/asthma, multiple DVTs, multiple PEs, bilateral BKA , and anxiety who was transferred back to [place] after undergoing endocrinology evaluation at [facility] in [place] from 09/14 until 09/23 following a lengthy hospitalization here from 08/12-09/14. The patient was experiencing hypoglycemia during his hospitalization here that was persistent despite treatment with D10W. He was found to have primary adrenal insufficiency , a right UE DVT, and a left arm abscess in AC s/p I and D now - all while at [facility]. He is transferred back to [facility] [place] for continued medical management. Primary Adrenal Insufficiency - ACTH elevated per records from [facility] - Florinef 0.1 mg p.o. qday - Hydrocortisone 15 mg q a.m. and 5 mg q pm - will need outpatient endocrinology f/u - good BS readings RUE DVT right lower lobe thrombus SVC thrombosis right atrial thrombus History of multiple DVTs/PE - Dr Gonzalez ff - INR 2.6 - hold coumadin due to acute drop of H and H- GI consulted and planning to do EGD when INR down - give 2 units FFP Klebsiella Sepsis- Left AC abscess s/p I and D- wound edges clean- with decrease swelling - wound care nurse ff - appreciate recommendations - continue Ivanz 500 mg qday till 10/23 per ID - infectious disease specialist ff-per ID till 10/23 - repeat blood cultures negative Hypoglycemia= resolved likely secondary to adrenal insufficiency - resolved on p.o. hydrocortisone good readings decrease monitoring tid and hs Hypertension- started on cozaar daily ESRD on HD - last dialysis at [facility] on 09/23 -Dr. Merlos ff for HD arrangement - monitor renal function Acute Anemia underlying Anemia of CKD S/P Upper GI bleed with esophageal varices GERD - H and H stable but feels tired - continue Protonix and Pepcid - Hematology ordered for 1 unit RBC transfusion 09/28 - ff H and H - type and x 2 units RBC during HD - Hematology ff - GI consulted- plan for EGD when INR reversed - give 2 units FFP today - INR in am Chronic anxiety - feels depressed- feeling better - wanting to go home - for the holidays- discussed with him- patient understands - continue Xanax 1 mg p.o. BID SLE positive per records review - not on any extermination supervisor medication for SLE Bilateral BKA - PT consult per patient was in the course of evaluation for prosthesis when acute medical problems came up DVT prophylaxis - SCDs/TEDs PT/OT -for deconditioning Dietitian ff- poor po appetitie- per patient improving on Nephro cupplements CM for DC planning- on IV antibiotics - Maribel Torre MD Oct 03, 2017 12:47
[2017-10-03] MEDS: SODIUM CHLORIDE 0.9% IV SCH (18:28)
[2017-10-03] MEDS: ERTAPENEM IV SCH (18:28)
[2017-10-04] VITALS (8 sets, daily range): BP systolic 117–134; BP diastolic 60–87; PULSE 75–86; RESP 16–20; TEMP 97.8–98.5; O2SAT 91–98
[2017-10-04] MEDS: LOSARTAN 25 MG TAB PO SCH (06:25)
[2017-10-04] MEDS: SODIUM CHLORIDE 0.9% FLUSH 10 ML FLUSH IV FLUSH SCH ×2 (09:39→20:03)
[2017-10-04] MEDS: HYDROCORTISONE 10 MG TAB PO SCH ×2 (09:41→20:02)
[2017-10-04] MEDS: FLUDROCORTISONE ACETATE 0.1 MG TAB PO SCH (09:42)
[2017-10-04] MEDS: ALPRAZolam 1 MG TAB PO SCH ×2 (09:42→20:02)
[2017-10-04] MEDS: PANTOPRAZOLE SOD 40 MG DELAYED RELEASE TAB PO SCH (09:42)
[2017-10-04] MEDS: SEVELAMER CARBONATE 800 MG TAB PO SCH ×3 (09:42→17:00)
[2017-10-04] MEDS: FAMOTIDINE 20 MG TAB PO SCH ×2 (09:42→20:02)
--- NOTE | 2017-10-04 10:50 | HHI.PR ---
Subjective Remarks Nursing denies any deterioration since last night. Patient reports him having a normal nonbloody bowel movement. Has no other new complaints Objective Vital Signs Date Time Temp Pulse Resp B/P (MAP) Pulse Ox O2 Delivery O2 Flow Rate FiO2 10/04/17 07:30 98.2 75 18 132/74 (93) 97 10/04/17 04:26 86 10/04/17 04:00 98.2 84 16 133/87 (102) 92 10/04/17 01:00 76 10/04/17 00:00 98.2 76 20 117/63 (81) 91 10/03/17 20:00 81 10/03/17 20:00 97.9 79 16 125/60 (81) 95 10/03/17 19:37 97.9 79 18 125/60 95 10/03/17 16:56 97.8 81 18 134/65 (88) 98 10/03/17 14:46 97.7 88 20 166/84 93 10/03/17 14:02 98.4 79 16 147/67 93 10/03/17 12:45 97.8 81 16 149/66 (93) 92 I/O 10/03/17 10/03/17 10/03/17 10/04/17 10/04/17 10/04/17 06:59 14:59 22:59 06:59 14:59 22:59 Intake Total 10 ml 917 ml 240 ml Balance 10 ml 917 ml 240 ml Intake Oral 220 ml 240 ml FFP 687 ml Blood Product IV Normal Saline Flush 10 ml 10 ml # Voids 0 0 0 # Bowel Movements 1 0 0 Result Diagram: 10/03/17 0630 10/01/17 0550 Objective Remarks Middle-aged black male, lying in bed, awake, no acute distress Abdomen is soft, nontender, nondistended A/P Assessment and Plan Mr. Mercado is a 47 y/o male with a history of end-stage renal disease on hemodialysis, SLE, CAD, COPD/asthma, multiple DVTs, multiple PEs, bilateral BKA , and anxiety who was transferred back to [place] after undergoing endocrinology evaluation at [facility] in [place] from 09/14 until 09/23 following a lengthy hospitalization here from 08/12-09/14. The patient was experiencing hypoglycemia during his hospitalization here that was persistent despite treatment with D10W. He was found to have primary adrenal insufficiency , a right UE DVT, and a left arm abscess in AC s/p I and D now - all while at [facility]. He is transferred back to [facility] for continued medical management. He is currently still inpatient due to a suspected GI bleed. Acute Anemia underlying Anemia of CKD S/P Upper GI bleed with esophageal varices GERD - continue Protonix and Pepcid - Hematology ordered for 1 unit RBC transfusion 09/28 - s/p 2 units of FFP yesterday - INR 2.1 today after holding Coumadin - Discussed case with gastroenterology who prefers INR to be under 1.5 but requires it to be under 2.0; d/w heme/onc as well, decided to hold off on heparin given recent acute blood drop and will administer vit K and repeat INR in AM. - will make pt NPO after midnight RUE DVT right lower lobe thrombus SVC thrombosis right atrial thrombus History of multiple DVTs/PE - heme following; see above - INR 2.1 today Klebsiella Sepsis- Left AC abscess s/p I and D- wound edges clean- with decrease swelling - wound care nurse ff - appreciate recommendations - continue Ivanz 500 mg qday till 10/23 per ID - infectious disease specialist ff-per ID till 10/23 - repeat blood cultures negative Primary Adrenal Insufficiency - ACTH elevated per records from [facility] - Florinef 0.1 mg p.o. qday - Hydrocortisone 15 mg q a.m. and 5 mg q pm - will need outpatient endocrinology f/u - good BS readings Hypertension- cozaar daily ESRD on HD -- - last dialysis at [facility] on 09/23 -Dr. Merlos ff for HD arrangement - monitor renal function Chronic anxiety - continue Xanax 1 mg p.o. BID SLE positive per records review - not on any remote computer terminal operator medication for SLE Bilateral BKA - PT consult per patient was in the course of evaluation for prosthesis when acute medical problems came up DVT prophylaxis - SCDs/TEDs PT/OT -for deconditioning Dietitian ff- on Nephro cupplements CM for DC planning- on IV antibiotics. CM working on securing different dialysis facility for patient since older facility is no longer taking him with his current insurance. Benjamín Elliott MD Oct 04, 2017 10:50
--- NOTE | 2017-10-04 11:34 | HHI.NPPN ---
Subjective History of Present Illness 47-year-old male with history of multiple medical problems including end-stage renal disease, hypertension, DVTs, multiple failed dialysis access disease but now is a functional AV dialysis fistula who was recently hostile eyes at this institution noted to have persisting hypoglycemia relative hypotension who is referred to [facility] in [place] for further evaluation by endocrinology. Patient apparently diagnosed as having primary hypoaldosteronism and has been started on Florinef as well as hydrocortisone by mouth. Also underwent incision and drainage of an infected hematoma of the left upper extremity. Patient has been transferred back to this institution. Interval History Pt in much better spirits today Pending EGD/colonoscopy for evaluation fo acute anemia. Pt denies any BRB or tarry black stools. (Gladis Cole) Objective Data Data Vital Signs Date Time Temp Pulse Resp B/P (MAP) Pulse Ox O2 Delivery O2 Flow Rate FiO2 10/04/17 07:30 98.2 75 18 132/74 (93) 97 10/04/17 04:26 86 10/04/17 04:00 98.2 84 16 133/87 (102) 92 10/04/17 01:00 76 10/04/17 00:00 98.2 76 20 117/63 (81) 91 10/03/17 20:00 81 10/03/17 20:00 97.9 79 16 125/60 (81) 95 10/03/17 19:37 97.9 79 18 125/60 95 10/03/17 16:56 97.8 81 18 134/65 (88) 98 10/03/17 14:46 97.7 88 20 166/84 93 10/03/17 14:02 98.4 79 16 147/67 93 10/03/17 12:45 97.8 81 16 149/66 (93) 92 (Gladis Cole) -: 10/03/17 0630 10/01/17 0550 Medication Review Current Medications Medications (Trade) Dose Ordered Sig/Nohelia Route Start Time Stop Time Status Last Admin (NS Flush) 2 ml UNSCH PRN IV FLUSH 09/23/17 23:15 (NS Flush) 2 ml BID IV FLUSH 09/24/17 09:00 10/04/17 09:39 (Tylenol) 650 mg Q4H PRN PO 09/23/17 23:15 (Zofran Inj) 4 mg Q6H PRN IVP 09/23/17 23:15 (Narcan Inj) 0.4 mg UNSCH PRN IV PUSH 09/23/17 23:15 Miscellaneous Information 1 Q361D XX 09/23/17 23:15 09/23/17 23:15 ([place] 5-325 Mg) 1 tab Q4H PRN PO 09/24/17 00:30 10/02/17 00:51 (Xanax) 1 mg Q12HR PO 09/24/17 09:00 10/04/17 09:42 (Florinef) 0.1 mg DAILY PO 09/24/17 09:00 10/04/17 09:42 (Protonix) 40 mg DAILY PO 09/24/17 09:00 10/04/17 09:42 (Renvela) 2,400 mg TIDAC PO 09/24/17 08:00 10/04/17 09:42 (Proair Hfa Inh) 2 puff Q6H PRN INH 09/24/17 00:30 09/30/17 14:08 (Pill Splitter) 1 ea UNSCH PRN OTHER 09/24/17 00:45 (Pepcid) 10 mg BID PO 09/24/17 21:00 10/04/17 09:42 Ertapenem 500 mg/ Sodium Chloride 50 ml @ 200 mls/hr Q24H IV 09/25/17 18:00 10/03/17 18:28 (Cortef) 15 mg DAILY PO 09/26/17 09:00 10/04/17 09:41 (Cortef) 5 mg DAILY@2000 PO 09/25/17 20:00 10/03/17 20:34 Sodium Chloride 1,000 ml @ 0 mls/hr Q0M PRN OTHER 09/25/17 15:30 Sodium Chloride 1,000 ml @ 200 mls/hr Q5H PRN IV 09/25/17 15:30 Sodium Chloride 1,000 ml @ 0 mls/hr Q0M PRN OTHER 09/25/17 15:30 (Mannitol Inj) 12.5 gm UNSCH PRN IV 09/25/17 15:30 Albumin Human 100 ml @ 60 mls/hr UNSCH PRN IV 09/25/17 15:30 (NS Flush) 5 ml UNSCH PRN IV FLUSH 09/25/17 15:30 (Zofran Inj) 4 mg UNSCH PRN IV PUSH 09/25/17 15:30 (Tylenol) 650 mg UNSCH PRN PO 09/25/17 15:30 (Benadryl) 25 mg UNSCH PRN PO 09/25/17 15:30 (Nitrostat Sl) 0.4 mg UNSCH PRN SL 09/25/17 15:30 (Catapres) 0.1 mg UNSCH PRN PO 09/25/17 15:30 (Epogen Inj) 10,000 units UNSCH PRN IV PUSH 09/25/17 15:30 09/30/17 12:08 (Gelfoam 12 Mm/7 Mm Top) 1 foam UNSCH PRN TOP 09/25/17 15:30 09/26/17 10:28 (Cozaar) 25 mg DAILY@0700 PO 09/27/17 07:00 10/04/17 06:25 (Coumadin) 5 mg DAILY@1600 PO 09/28/17 16:00 Future Hold 10/01/17 17:50 (Tylenol) 650 mg Q4H PRN PO 09/28/17 12:00 (Benadryl) 25 mg Q4H PRN PO 09/28/17 12:00 (Gladis Cole) Physical Exam General Appearance: Comfortable (Gladis Cole) Eyes Eye Exam: Sclera White (Gladis Cole) Pulmonary Resp Exam: Clear Bilaterally, Breath Sounds Equal, No Distress (Gladis Cole) Cardiology CV Exam: Regular, Normal Sinus Rhythm (Gladis Cole) Gastrointestinal/Abdomen GI Exam: Soft, Non-Tender (Gladis Cole) Integumentary Skin Exam: Clear, Warm (Gladis Cole) Extremeties Extremities Exam: No Edema (Gladis Cole) Neurologic Neuro Exam: Alert, Awake, Speech Clear (Gladis Cole) Psychiatric Psych Exam: Appropriate Responses (Gladis Cole) Assessment/Plan Discussed Condition With: Patient Problem List: (1) ESRD (end stage renal disease) on dialysis ICD Codes: N18.6 - End stage renal disease; Z99.2 - Dependence on renal dialysis Status: Chronic Plan: Next HD 10/05 to continue on MWF schedule. Patient has been out of the outpatient dialysis center for greater than 30 days and technically has been discharge from the facility. The dialysis facility will need authorization from the patient's insurance company to accept the patient back to the facility. Patient cannot be discharged until outpatient dialysis insurance approves and arranged. Medications should be adjusted with the patient's end-stage renal disease when indicated. Avoid gadolinium. (2) Anemia of renal disease ICD Codes: D63.1 - Anemia in chronic kidney disease Status: Chronic Plan: Continue Proc[facility] with HD Pending EGD/colonoscopy when INR improved. s/p transfusion on 10/03 (3) Primary adrenal insufficiency ICD Codes: E27.1 - Primary adrenocortical insufficiency Status: Chronic Plan: Continue Florinef as well as Cortef as recommended by endocrinology at [facility]. (4) History of DVT (deep vein thrombosis) ICD Codes: Z86.718 - Personal history of other venous thrombosis and embolism Plan: Mgmt as per heme (5) Esophageal varices determined by endoscopy ICD Codes: I85.00 - Esophageal varices without bleeding Status: Chronic (6) Abscess of left upper extremity ICD Codes: L02.414 - Cutaneous abscess of left upper limb Status: Chronic Plan: Status post drainage at [facility]. Review of ID note says to continue Invanz until 10/23/17 (Gladis Cole) Plan The exam, history, and the medical decision-making described in the above note were completed with the assistance of the PANguyen. I reviewed and agree with the findings presented. (Clarence Merlos MD) Gladis Cole Oct 04, 2017 11:34 Clarence Merlos MD Oct 05, 2017 15:46
[2017-10-04 12:27] LABS: INTERNATIONAL NORMALIZED RATIO 2.1 RATIO; PROTHROMBIN TIME - PATIENT 21.3 SEC (9.8-11.6)
--- NOTE | 2017-10-04 12:54 | HHI.GIFU ---
Subjective Remarks Awake, resting in the bed Denies any acute pain or nausea Afebrile INR 2.1 (Elizabeth Rivera) Objective Vitals I&O Vital Signs Date Time Temp Pulse Resp B/P (MAP) Pulse Ox O2 Delivery O2 Flow Rate FiO2 10/04/17 11:46 98.5 78 18 132/60 (84) 93 10/04/17 07:30 98.2 75 18 132/74 (93) 97 10/04/17 04:26 86 10/04/17 04:00 98.2 84 16 133/87 (102) 92 10/04/17 01:00 76 10/04/17 00:00 98.2 76 20 117/63 (81) 91 10/03/17 20:00 81 10/03/17 20:00 97.9 79 16 125/60 (81) 95 10/03/17 19:37 97.9 79 18 125/60 95 10/03/17 16:56 97.8 81 18 134/65 (88) 98 10/03/17 14:46 97.7 88 20 166/84 93 10/03/17 14:02 98.4 79 16 147/67 93 I/O 10/03/17 10/03/17 10/03/17 10/04/17 10/04/17 10/04/17 07:00 15:00 23:00 07:00 15:00 23:00 Intake Total 10 ml 917 ml 240 ml Balance 10 ml 917 ml 240 ml Intake Oral 220 ml 240 ml FFP 687 ml Blood Product IV Normal Saline Flush 10 ml 10 ml # Voids 0 0 0 # Bowel Movements 1 0 0 Laboratory Laboratory Tests Test 10/04/17 12:00 Prothrombin Time 21.3 Prothromb Time International Ratio 2.1 Date/Time Source Procedure Growth Status 09/26/17 15:12 Blood Line Aerobic Blood Culture - Final NO GROWTH IN 5 DAYS Complete 09/26/17 15:12 Blood Line Anaerobic Blood Culture - Final NO GROWTH IN 5 DAYS Complete Physical Exam HEENT: Pupils round and reactive to light; normocephalic; atraumatic; no jaundice. Throat is clear. NECK: Neck is supple, no JVD, no lymphadenopathy. CHEST: Chest is clear no rhonchi noted CARDIAC: Regular rate and rhythm ABDOMEN: Soft, nondistended, nontender; bowel sounds active EXTREMITIES: No clubbing, cyanosis, or edema. SKIN: vazquez, no rash; no jaundice. 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 (Elizabeth Rivera) Assessment and Plan Plan ASSESSMENT - anemia with drop in hgb - 8.9 on admission dropped to 6.4 normocytic. Stable now at 9.7 for the past 48 hours hx esophageal varices, EGD 08/13/17 with esophageal varices banded, large duodenal erosions. on coumadin and heparin gtt per hematology, INR is 2.1 PLAN - EGD with rebanding after correction of INR currently still remains at 2.1. , Discussed procedure and plan with patient. Could possibly be done tomorrow if INR is less than [address] Rodriguez - monitor HH - transfuse as needed - stat bleed scan if active bleeding - supportive care - further recs to follow This pt seen by myself and Dr Rodriguez and this note is written on his behalf (Elizabeth Rivera) Physician Comments INR being corrected, plan for EGD and Colonoscopy in AM. (Chon Rodriguez MD) Elizabeth Rivera Oct 04, 2017 12:53 Chon Rodriguez MD Oct 04, 2017 15:25
--- NOTE | 2017-10-04 14:30 | HHI.IDPN ---
Subjective Subjective Remarks 47 year old male, [place] [facility] [place] He was transferred for work-up of recurrent hypoglycemia. He was found to have primary adrenal insufficiency. Prior to transfer he has foound to have Kleb ESBL+ line rerlatred bacteremia, from a groin line which was replaced. In he was found to have infected hematoma in his LUE, no info on C/S. has known ESRD and on HD. Has AVF in his RUE Notes reviewed Afebrile Not SOB BP ok Being evaluated for recurrent anemia Repeat BC done 09/26 - negative Antibiotics Current Medications Invanz Medications (Trade) Dose Ordered Sig/Nohelia Route Start Time Stop Time Status Last Admin (NS Flush) 2 ml UNSCH PRN IV FLUSH 09/23/17 23:15 (NS Flush) 2 ml BID IV FLUSH 09/24/17 09:00 10/04/17 09:39 (Tylenol) 650 mg Q4H PRN PO 09/23/17 23:15 (Zofran Inj) 4 mg Q6H PRN IVP 09/23/17 23:15 (Narcan Inj) 0.4 mg UNSCH PRN IV PUSH 09/23/17 23:15 Miscellaneous Information 1 Q361D XX 09/23/17 23:15 09/23/17 23:15 ([place] 5-325 Mg) 1 tab Q4H PRN PO 09/24/17 00:30 10/02/17 00:51 (Xanax) 1 mg Q12HR PO 09/24/17 09:00 10/04/17 09:42 (Florinef) 0.1 mg DAILY PO 09/24/17 09:00 10/04/17 09:42 (Protonix) 40 mg DAILY PO 09/24/17 09:00 10/04/17 09:42 (Renvela) 2,400 mg TIDAC PO 09/24/17 08:00 10/04/17 12:33 (Proair Hfa Inh) 2 puff Q6H PRN INH 09/24/17 00:30 09/30/17 14:08 (Pill Splitter) 1 ea UNSCH PRN OTHER 09/24/17 00:45 (Pepcid) 10 mg BID PO 09/24/17 21:00 12/26/17 09:42 Ertapenem 500 mg/ Sodium Chloride 50 ml @ 200 mls/hr Q24H IV 09/25/17 18:00 10/03/17 18:28 (Cortef) 15 mg DAILY PO 09/26/17 09:00 10/04/17 09:41 (Cortef) 5 mg DAILY@2000 PO 09/25/17 20:00 10/03/17 20:34 Sodium Chloride 1,000 ml @ 0 mls/hr Q0M PRN OTHER 09/25/17 15:30 Sodium Chloride 1,000 ml @ 200 mls/hr Q5H PRN IV 09/25/17 15:30 Sodium Chloride 1,000 ml @ 0 mls/hr Q0M PRN OTHER 09/25/17 15:30 (Mannitol Inj) 12.5 gm UNSCH PRN IV 09/25/17 15:30 Albumin Human 100 ml @ 60 mls/hr UNSCH PRN IV 09/25/17 15:30 (NS Flush) 5 ml UNSCH PRN IV FLUSH 09/25/17 15:30 (Zofran Inj) 4 mg UNSCH PRN IV PUSH 09/25/17 15:30 (Tylenol) 650 mg UNSCH PRN PO 09/25/17 15:30 (Benadryl) 25 mg UNSCH PRN PO 09/25/17 15:30 (Nitrostat Sl) 0.4 mg UNSCH PRN SL 09/25/17 15:30 (Catapres) 0.1 mg UNSCH PRN PO 09/25/17 15:30 (Epogen Inj) 10,000 units UNSCH PRN IV PUSH 09/25/17 15:30 09/30/17 12:08 (Gelfoam 12 Mm/7 Mm Top) 1 foam UNSCH PRN TOP 09/25/17 15:30 09/26/17 10:28 (Cozaar) 25 mg DAILY@0700 PO 09/27/17 07:00 10/04/17 06:25 (Coumadin) 5 mg DAILY@1600 PO 09/28/17 16:00 Future Hold 10/01/17 17:50 (Tylenol) 650 mg Q4H PRN PO 09/28/17 12:00 (Benadryl) 25 mg Q4H PRN PO 09/28/17 12:00 Lines Groin line Past Medical History 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 Lupus nephritis. End-stage renal disease on hemodialysis. Coronary artery disease. COPD. Multiple DVTs and PEs. Gastroesophageal reflux disease (GERD). Peripheral arterial disease. Primary adrenal insufficiency. History of tracheostomy and reversal. Bilateral below-knee amputation. AV graft of the right upper extremity. History of resection of the distal aspect of the right second and third fingers. Allergies: Coded Allergies: iodine (Unverified Allergy, Severe, blisters, 08/12/17) morphine (Unverified Allergy, Severe, Itching, 08/12/17) potassium iodide (Unverified Allergy, Severe, blisters, 08/12/17) povidone-iodine (Unverified Allergy, Severe, blisters, 08/12/17) sodium iodide (Unverified Allergy, Severe, blisters, 08/12/17) sodium iodide (Unverified Allergy, Severe, blisters, 08/12/17) Objective . Vital Signs Date Time Temp Pulse Resp B/P (MAP) Pulse Ox O2 Delivery O2 Flow Rate FiO2 10/04/17 11:46 98.5 78 18 132/60 (84) 93 10/04/17 07:30 98.2 75 18 132/74 (93) 97 10/04/17 04:26 86 10/04/17 04:00 98.2 84 16 133/87 (102) 92 10/04/17 01:00 76 10/04/17 00:00 98.2 76 20 117/63 (81) 91 10/03/17 20:00 81 10/03/17 20:00 97.9 79 16 125/60 (81) 95 10/03/17 19:37 97.9 79 18 125/60 95 10/03/17 16:56 97.8 81 18 134/65 (88) 98 10/03/17 14:46 97.7 88 20 166/84 93 . Laboratory Tests Test 10/02/17 16:45 10/03/17 06:30 Hemoglobin 9.9 GM/DL 9.7 GM/DL Hematocrit 30.2 % 29.9 % White Blood Count 6.1 TH/MM3 Red Blood Count 3.30 MIL/MM3 Mean Corpuscular Volume 90.8 FL Mean Corpuscular Hemoglobin 29.4 PG Mean Corpuscular Hemoglobin Concent 32.4 % Red Cell Distribution Width 20.7 % Platelet Count 252 TH/MM3 Mean Platelet Volume 8.4 FL Neutrophils (%) (Auto) 71.5 % Lymphocytes (%) (Auto) 14.7 % Monocytes (%) (Auto) 9.0 % Eosinophils (%) (Auto) 3.7 % Basophils (%) (Auto) 1.1 % Neutrophils # (Auto) 4.4 TH/MM3 Lymphocytes # (Auto) 0.9 TH/MM3 Monocytes # (Auto) 0.5 TH/MM3 Eosinophils # (Auto) 0.2 TH/MM3 Basophils # (Auto) 0.1 TH/MM3 CBC Comment DIFF FINAL Differential Comment Physical Exam GENERAL: awake and alert, NAD SKIN: Warm and very dry. No generalized rash HEAD: Atraumatic. Normocephalic. No temporal wasting, or tenderness. EYES: [place] conjunctiva. No petechia or hemorrhage. Pupils equal, round and reactive to light. Extraocular movements full and intact. No scleral icterus. EARS, NOSE AND THROAT: Nose without bleeding or purulent nasal discharge. Mucous membranes pink and moist. No oral lesions noted. NECK: Trachea midline. Supple and not tender, no meningeal signs CARDIOVASCULAR: Regular rate and rhythm. No murmurs, rubs or gallops heard RESPIRATORY: Clear to auscultation. Breath sounds equal bilaterally. No rales , wheezing or rhonchi ABDOMEN: Soft, non-tender, nondistended. Bowel sounds present and normoactive. No guarding. No rebound. No organomegaly. EXTREMITIES: No clubbing, cyanosis, or edema. Has bilateral BKA, with a well- healed stump. LUE - less swollen. RUE AVF ok. NEUROLOGICAL: Non-focal PSYCHIATRIC: Normal affect, calm and cooperative. LINE: L groin central line with no evidence of infection Assessment & Plan Remarks IMPRESSION Klebsiella ESBL bacteremia, likely due to L groin line - exchanged over wire - line exchange done 09/12 S/P Rx cellulitis LUE, better; swelling better - S/P I and D hematoma Primary adrenal insufficiency Previous treatment for recent staph epi and bryon sepsis, completed treatment July 11 ESRD, on HD, MWF Known PVD Hx central venous occlusion RECOMMENDATION Continue Invanz - plan 6 weeks from last (+) BC - end date Oct 23 Venous access difficult with this patient due to central venous occlusion - increased risk of repeat line related infection Clinically doing well from ID standpoint GI work-up in progress I will be available prn Please reconsult if with new ID issue or question Louann Barney MD Oct 04, 2017 14:30
[2017-10-04] MEDS ORDERED: PHYTONADIONE 5 MG/SWFI 5 ML ORAL SYR PO ONE (15:15)
[2017-10-04] MEDS ORDERED: HEPARIN-D5W 25,000 U/250 ML 250 ML IV PRN (15:15)
[2017-10-04] MEDS: SODIUM CHLORIDE 0.9% IV SCH (17:25)
[2017-10-04] MEDS: ERTAPENEM IV SCH (17:25)
[2017-10-04 17:37] LABS: AUTOMATED NEUTROPHIL # 4.9 TH/MM3 (1.8-7.7); BASOPHIL # 0.1 TH/MM3 (0-0.2); BASOPHIL % 1.1 % (0.0-2.0); EOSINOPHIL # 0.2 TH/MM3 (0-0.4); EOSINOPHIL % 3.3 % (0.0-4.0); HEMOGLOBIN 10.2 GM/DL (13.0-17.0); LYMPH % 9.3 % (9.0-44.0); LYMPHOCYTE # 0.6 TH/MM3 (1.0-4.8); MEAN CELL VOLUME 91.2 FL (80.0-100.0); MEAN CORPUSCULAR HGB CONC 32.8 % (32.0-36.0); MEAN PLATELET VOLUME 8.3 FL (7.0-11.0); MONO % 5.7 % (0.0-8.0); MONOCYTE # 0.4 TH/MM3 (0-0.9); NEUT % 80.6 % (16.0-70.0); PLATELET COUNT 237 TH/MM3 (150-450); RED CELL DISTRIBUTION WIDTH 21.3 % (11.6-17.2); WHITE BLOOD COUNT 6.1 TH/MM3 (4.0-11.0)
[2017-10-04 17:51] LABS: ALBUMIN 3.2 GM/DL (3.4-5.0); DIRECT BILIRUBIN ADULT 0.1 MG/DL (0.0-0.2)
[2017-10-04 17:52] LABS: INDIRECT BILIRUBIN 0.3 MG/DL (0.0-0.8); TOTAL BILIRUBIN ADULT 0.4 MG/DL (0.2-1.0); TOTAL PROTEIN 8.3 GM/DL (6.4-8.2)
--- NOTE | 2017-10-04 19:13 | PD.ONC.PN ---
Subjective Subjective Remarks "They say they're going to look at me inside" Denies any bleeding. No melena or BRBPR. Alerted by primary team concern for GI bleed, hgb 6.4 on 10/02/17 Objective Data Date Time Temp Pulse Resp B/P (MAP) Pulse Ox O2 Delivery O2 Flow Rate FiO2 10/04/17 15:52 98.3 82 17 134/68 (90) 94 10/04/17 11:46 98.5 78 18 132/60 (84) 93 10/04/17 07:30 98.2 75 18 132/74 (93) 97 10/04/17 04:26 86 10/04/17 04:00 98.2 84 16 133/87 (102) 92 10/04/17 01:00 76 10/04/17 00:00 98.2 76 20 117/63 (81) 91 10/03/17 20:00 81 10/03/17 20:00 97.9 79 16 125/60 (81) 95 10/03/17 19:37 97.9 79 18 125/60 95 10/04/17 10/04/17 10/04/17 07:00 15:00 23:00 Intake Total 240 ml 360 ml Balance 240 ml 360 ml Result Diagram: 10/04/17 1607 10/01/17 0550 Laboratory Results Laboratory Tests Test 10/04/17 12:00 10/04/17 16:07 Prothrombin Time 21.3 SEC Prothromb Time International Ratio 2.1 RATIO White Blood Count 6.1 TH/MM3 Red Blood Count 3.40 MIL/MM3 Hemoglobin 10.2 GM/DL Hematocrit 31.0 % Mean Corpuscular Volume 91.2 FL Mean Corpuscular Hemoglobin 30.0 PG Mean Corpuscular Hemoglobin Concent 32.8 % Red Cell Distribution Width 21.3 % Platelet Count 237 TH/MM3 Mean Platelet Volume 8.3 FL Neutrophils (%) (Auto) 80.6 % Lymphocytes (%) (Auto) 9.3 % Monocytes (%) (Auto) 5.7 % Eosinophils (%) (Auto) 3.3 % Basophils (%) (Auto) 1.1 % Neutrophils # (Auto) 4.9 TH/MM3 Lymphocytes # (Auto) 0.6 TH/MM3 Monocytes # (Auto) 0.4 TH/MM3 Eosinophils # (Auto) 0.2 TH/MM3 Basophils # (Auto) 0.1 TH/MM3 CBC Comment DIFF FINAL Differential Comment Total Bilirubin 0.4 MG/DL Direct Bilirubin 0.1 MG/DL Indirect Bilirubin 0.3 MG/DL Aspartate Amino Transf (AST/SGOT) 9 U/L Alanine Aminotransferase (ALT/SGPT) 8 U/L Alkaline Phosphatase 66 U/L Total Protein 8.3 GM/DL Albumin 3.2 GM/DL Administered Medications Medications (Trade) Dose Ordered Sig/Nohelia Route PRN Reason Start Time Stop Time Status Last Admin Dose Admin Sodium Chloride (NS Flush) 2 ml BID IV FLUSH 09/24/17 09:00 10/04/17 09:39 Miscellaneous Information 1 Q361D XX 09/23/17 23:15 09/23/17 23:15 Acetaminophen/ Hydrocodone Bitart ([place] 5-325 Mg) 1 tab Q4H PRN PO pain > 4 09/24/17 00:30 10/02/17 00:51 Alprazolam (Xanax) 1 mg Q12HR PO 09/24/17 09:00 10/04/17 09:42 Fludrocortisone Acetate (Florinef) 0.1 mg DAILY PO 09/24/17 09:00 10/04/17 09:42 Pantoprazole Sodium (Protonix) 40 mg DAILY PO 09/24/17 09:00 10/04/17 09:42 Sevelamer Carbonate (Renvela) 2,400 mg TIDAC PO 09/24/17 08:00 10/04/17 12:33 Albuterol Sulfate (Proair Hfa Inh) 2 puff Q6H PRN INH sob/wheezing 09/24/17 00:30 09/30/17 14:08 Famotidine (Pepcid) 10 mg BID PO 09/24/17 21:00 10/04/17 09:42 Ertapenem 500 mg/ Sodium Chloride 50 ml @ 200 mls/hr Q24H IV 09/25/17 18:00 10/23/17 23:00 10/04/17 17:25 Hydrocortisone (Cortef) 15 mg DAILY PO 09/26/17 09:00 10/04/17 09:41 Hydrocortisone (Cortef) 5 mg DAILY@2000 PO 09/25/17 20:00 10/03/17 20:34 Epoetin Eddie (Epogen Inj) 10,000 units UNSCH PRN IV PUSH WITH DIALYSIS 09/25/17 15:30 09/30/17 12:08 Gelatin (Gelfoam 12 Mm/7 Mm Top) 1 foam UNSCH PRN TOP SEE LABEL COMMENTS 09/25/17 15:30 09/26/17 10:28 Losartan Potassium (Cozaar) 25 mg DAILY@0700 PO 09/27/17 07:00 10/04/17 06:25 Warfarin Sodium (Coumadin) 5 mg DAILY@1600 PO 09/28/17 16:00 Future Hold 10/01/17 17:50 Objective Remarks GENERAL: Chronically ill man, well-developed patient. SKIN: Warm and dry. L forearm dressing dry, no bleeding. HEAD: Normocephalic. EYES: No scleral icterus. No injection or drainage. NECK: Supple, trachea midline. No JVD or lymphadenopathy. LYMPHATIC: No adenopathy. CARDIOVASCULAR: Regular rate and rhythm without murmurs. RESPIRATORY: Breath sounds equal bilaterally. No accessory muscle use. GASTROINTESTINAL: Abdomen soft, non-tender, nondistended. EXTREMITIES: No cyanosis, or edema. L arm swelling decreased MUSCULOSKELETAL: Adequate muscle tone. BKA, moves legs at ease. Assessment/Plan Problem List: (1) History of DVT (deep vein thrombosis) ICD Codes: Z86.718 - Personal history of other venous thrombosis and embolism Plan: -- The patient has history of systemic lupus, multiple DVTs, pulmonary embolism and SVC syndrome -- He has a non-occlusive thrombus in the right IJ left subclavian vein. -- CT angiogram showed a chronic occlusive thrombus in the right lower lobe with chronic thromboses extending into the right atrium. -- Ultrasound August 24 shows a small amount of non-occlusive thrombus in the cephalic vein on the left. -- Repeat ultrasound of the upper extremity on September 06 showed non-occlusive superficial thrombus in the left cephalic vein similar from previous. -- Recommend anticoagulant therapy with Coumadin as this can be reversed with his recent GI bleeding 09/27/17. Multiple VTE, new RUE DVT, h.o RA thrombus. Anticoagulant therapy seem to decrease L arm swelling. Dry dressing placed over wound. No bleeding. 09/30: awaiting CBC today. may need blood transfusion. continue anticoagulation for now. 10/04/17. Noted Hgb decrease to 6.4, s/p 2UPRBC hgb now 10.2 Coumadin reversed with Vitamin K 2.5mg INR was therapeutic since 10/02, no overt bleeding identified. Considered Hgb 6.4 lab error, hgb rise from 2UPRBC is higher than expected. Discussed continue monitoring for bleeding. Pt with competing needs, h/o GI bleed recently, need for anticoagulation. LUE DVT, SVC syndrome h/o recurrent VTE. Hold anticoagulant therapy for now. Assessment 47 y/o male with history of ESRD on dialysis, multiple DVTs, pulmonary embolism and SVC syndrome; hematology consulted for anticoagulant recommendations. Pt titrated on therapeutic dose of Coumadin when found to have hgb 6.4. Anticoagulation reversed. Plan 1. MOnitor PT/INR 2. Check CBC in AM. 3. GI evaluation on going. 4. Anticipate resuming anticoagulation w/ Coumadin when safe to do so Jennifer Gonzalez MD Oct 04, 2017 19:13
[2017-10-05] VITALS: BP 132/70; PULSE 86; RESP 18; TEMP 98.1; O2SAT 91
[2017-10-05 04:00] VITALS: BP 146/70; PULSE 80; RESP 18; TEMP 97.2; O2SAT 91
[2017-10-05] MEDS: LOSARTAN 25 MG TAB PO SCH (06:29)
[2017-10-05 08:00] VITALS: BP 148/79; PULSE 80; RESP 17; TEMP 97.5; O2SAT 94
[2017-10-05] MEDS: SEVELAMER CARBONATE 800 MG TAB PO SCH ×4 (08:00→16:36)
[2017-10-05] MEDS: HYDROCORTISONE 10 MG TAB PO SCH ×2 (08:41→20:22)
[2017-10-05] MEDS: FAMOTIDINE 20 MG TAB PO SCH ×2 (08:41→20:22)
[2017-10-05] MEDS: ALPRAZolam 1 MG TAB PO SCH ×2 (08:41→20:22)
[2017-10-05] MEDS: FLUDROCORTISONE ACETATE 0.1 MG TAB PO SCH (08:41)
[2017-10-05] MEDS: SODIUM CHLORIDE 0.9% FLUSH 10 ML FLUSH IV FLUSH SCH ×2 (08:41→20:22)
[2017-10-05] MEDS: PANTOPRAZOLE SOD 40 MG DELAYED RELEASE TAB PO SCH (08:41)
[2017-10-05 10:44] LABS: INTERNATIONAL NORMALIZED RATIO 1.5 RATIO; PROTHROMBIN TIME - PATIENT 15.3 SEC (9.8-11.6)
--- NOTE | 2017-10-05 11:39 | HHI.GIFU ---
Objective Vitals I&O Vital Signs Date Time Temp Pulse Resp B/P (MAP) Pulse Ox O2 Delivery O2 Flow Rate FiO2 10/05/17 08:00 97.5 80 17 148/79 (102) 94 10/05/17 04:00 97.2 80 18 146/70 (95) 91 10/05/17 00:00 98.1 86 18 132/70 (90) 91 10/04/17 20:00 82 10/04/17 20:00 97.8 81 18 121/77 (92) 98 10/04/17 15:52 98.3 82 17 134/68 (90) 94 10/04/17 11:46 98.5 78 18 132/60 (84) 93 I/O 10/04/17 10/04/17 10/04/17 10/05/17 10/05/17 10/05/17 07:00 15:00 23:00 07:00 15:00 23:00 Intake Total 240 ml 1080 ml Balance 240 ml 1080 ml Intake Oral 240 ml 1080 ml # Voids 0 0 1 # Bowel Movements 0 0 1 Laboratory Laboratory Tests Test 10/04/17 12:00 10/04/17 16:07 10/05/17 10:10 Prothrombin Time 21.3 15.3 Prothromb Time International Ratio 2.1 1.5 White Blood Count 6.1 Red Blood Count 3.40 Hemoglobin 10.2 Hematocrit 31.0 Mean Corpuscular Volume 91.2 Mean Corpuscular Hemoglobin 30.0 Mean Corpuscular Hemoglobin Concent 32.8 Red Cell Distribution Width 21.3 Platelet Count 237 Mean Platelet Volume 8.3 Neutrophils (%) (Auto) 80.6 Lymphocytes (%) (Auto) 9.3 Monocytes (%) (Auto) 5.7 Eosinophils (%) (Auto) 3.3 Basophils (%) (Auto) 1.1 Neutrophils # (Auto) 4.9 Lymphocytes # (Auto) 0.6 Monocytes # (Auto) 0.4 Eosinophils # (Auto) 0.2 Basophils # (Auto) 0.1 CBC Comment DIFF FINAL Differential Comment Total Bilirubin 0.4 Direct Bilirubin 0.1 Indirect Bilirubin 0.3 Aspartate Amino Transf (AST/SGOT) 9 Alanine Aminotransferase (ALT/SGPT) 8 Alkaline Phosphatase 66 Total Protein 8.3 Albumin 3.2 Date/Time Source Procedure Growth Status 09/26/17 15:12 Blood Line Aerobic Blood Culture - Final NO GROWTH IN 5 DAYS Complete 09/26/17 15:12 Blood Line Anaerobic Blood Culture - Final NO GROWTH IN 5 DAYS Complete Physical Exam HEENT: Pupils round and reactive to light; normocephalic; atraumatic; no jaundice. Throat is clear. NECK: Neck is supple, no JVD, no lymphadenopathy. CHEST: Chest is clear no rhonchi noted CARDIAC: Regular rate and rhythm ABDOMEN: Soft, nondistended, nontender; bowel sounds active EXTREMITIES: No clubbing, cyanosis, or edema. SKIN: vazquez, no rash; no jaundice. 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 Assessment and Plan Plan ASSESSMENT - anemia with drop in hgb - 8.9 on admission dropped to 6.4 normocytic. Stable now at 9.7 for the past 48 hours hx esophageal varices, EGD 08/13/17 with esophageal varices banded, large duodenal erosions. on coumadin and heparin gtt INR 1.5 today. PLAN - Plan for EGD/Colonoscopy with rebanding after correction of INR 1.5 today, - clear liquids today without red colors - monitor HH - Post Dialysis today - transfuse as needed - stat bleed scan if active bleeding - supportive care - further recs to follow This pt seen by myself and Dr Rodriguez and this note is written on his behalf Elizabeth Rivera Oct 05, 2017 11:39
[2017-10-05] MEDS: EPOETIN ALFA 10,000 UNITS/ML VIAL IV PUSH PRN (12:00)
[2017-10-05] MEDS: GELATIN 12 MM/7 MM FOAM TOP PRN (12:00)
--- NOTE | 2017-10-05 13:12 | PD.ONC.PN ---
Subjective Subjective Remarks Afebrile overnight. Patient seen in dialysis. He is eager to go home. Denies obvious bleeding. Objective Data Date Time Temp Pulse Resp B/P (MAP) Pulse Ox O2 Delivery O2 Flow Rate FiO2 10/05/17 08:00 97.5 80 17 148/79 (102) 94 10/05/17 04:00 97.2 80 18 146/70 (95) 91 10/05/17 00:00 98.1 86 18 132/70 (90) 91 10/04/17 20:00 82 10/04/17 20:00 97.8 81 18 121/77 (92) 98 10/04/17 15:52 98.3 82 17 134/68 (90) 94 10/05/17 10/05/17 10/05/17 07:00 15:00 23:00 Output Total 4000 ml Balance -4000 ml Result Diagram: 10/04/17 1607 10/01/17 0550 Laboratory Results Laboratory Tests Test 10/04/17 16:07 10/05/17 10:10 White Blood Count 6.1 TH/MM3 Red Blood Count 3.40 MIL/MM3 Hemoglobin 10.2 GM/DL Hematocrit 31.0 % Mean Corpuscular Volume 91.2 FL Mean Corpuscular Hemoglobin 30.0 PG Mean Corpuscular Hemoglobin Concent 32.8 % Red Cell Distribution Width 21.3 % Platelet Count 237 TH/MM3 Mean Platelet Volume 8.3 FL Neutrophils (%) (Auto) 80.6 % Lymphocytes (%) (Auto) 9.3 % Monocytes (%) (Auto) 5.7 % Eosinophils (%) (Auto) 3.3 % Basophils (%) (Auto) 1.1 % Neutrophils # (Auto) 4.9 TH/MM3 Lymphocytes # (Auto) 0.6 TH/MM3 Monocytes # (Auto) 0.4 TH/MM3 Eosinophils # (Auto) 0.2 TH/MM3 Basophils # (Auto) 0.1 TH/MM3 CBC Comment DIFF FINAL Differential Comment Total Bilirubin 0.4 MG/DL Direct Bilirubin 0.1 MG/DL Indirect Bilirubin 0.3 MG/DL Aspartate Amino Transf (AST/SGOT) 9 U/L Alanine Aminotransferase (ALT/SGPT) 8 U/L Alkaline Phosphatase 66 U/L Total Protein 8.3 GM/DL Albumin 3.2 GM/DL Prothrombin Time 15.3 SEC Prothromb Time International Ratio 1.5 RATIO Administered Medications Medications (Trade) Dose Ordered Sig/Nohelia Route PRN Reason Start Time Stop Time Status Last Admin Dose Admin Sodium Chloride (NS Flush) 2 ml BID IV FLUSH 09/24/17 09:00 10/04/17 20:03 Miscellaneous Information 1 Q361D XX 09/23/17 23:15 09/23/17 23:15 Acetaminophen/ Hydrocodone Bitart ([place] 5-325 Mg) 1 tab Q4H PRN PO pain > 4 09/24/17 00:30 10/02/17 00:51 Alprazolam (Xanax) 1 mg Q12HR PO 09/24/17 09:00 10/04/17 20:02 Fludrocortisone Acetate (Florinef) 0.1 mg DAILY PO 09/24/17 09:00 10/04/17 09:42 Pantoprazole Sodium (Protonix) 40 mg DAILY PO 09/24/17 09:00 10/04/17 09:42 Sevelamer Carbonate (Renvela) 2,400 mg TIDAC PO 09/24/17 08:00 10/04/17 12:33 Albuterol Sulfate (Proair Hfa Inh) 2 puff Q6H PRN INH sob/wheezing 09/24/17 00:30 09/30/17 14:08 Famotidine (Pepcid) 10 mg BID PO 09/24/17 21:00 10/04/17 20:02 Ertapenem 500 mg/ Sodium Chloride 50 ml @ 200 mls/hr Q24H IV 09/25/17 18:00 10/23/17 23:00 10/04/17 17:25 Hydrocortisone (Cortef) 15 mg DAILY PO 09/26/17 09:00 10/04/17 09:41 Hydrocortisone (Cortef) 5 mg DAILY@2000 PO 09/25/17 20:00 10/04/17 20:02 Sodium Chloride 1,000 ml @ 0 mls/hr Q0M PRN OTHER For [employer] Rinse Back 09/25/17 15:30 10/05/17 12:00 Epoetin Eddie (Epogen Inj) 10,000 units UNSCH PRN IV PUSH WITH DIALYSIS 09/25/17 15:30 10/05/17 12:00 Gelatin (Gelfoam 12 Mm/7 Mm Top) 1 foam UNSCH PRN TOP SEE LABEL COMMENTS 09/25/17 15:30 10/05/17 12:00 Losartan Potassium (Cozaar) 25 mg DAILY@0700 PO 09/27/17 07:00 10/05/17 06:29 Warfarin Sodium (Coumadin) 5 mg DAILY@1600 PO 09/28/17 16:00 Future Hold 10/01/17 17:50 Objective Remarks GENERAL: Middle aged male lying in bed in nad. SKIN: Warm and dry. HEAD: Normocephalic. EYES: No injection or drainage. NECK: Supple, trachea midline. CARDIOVASCULAR: +S1/S2 RESPIRATORY: Breath sounds equal bilaterally. No accessory muscle use. GASTROINTESTINAL: Abdomen soft, non-tender, nondistended. EXTREMITIES: No cyanosis NEUROLOGICAL: awake and alert, normal speech. moving extremities. Assessment/Plan Problem List: (1) History of DVT (deep vein thrombosis) ICD Codes: Z86.718 - Personal history of other venous thrombosis and embolism Plan: -- The patient has history of systemic lupus, multiple DVTs, pulmonary embolism and SVC syndrome -- He has a non-occlusive thrombus in the right IJ left subclavian vein. -- CT angiogram showed a chronic occlusive thrombus in the right lower lobe with chronic thromboses extending into the right atrium. -- Ultrasound August 24 shows a small amount of non-occlusive thrombus in the cephalic vein on the left. -- Repeat ultrasound of the upper extremity on September 06 showed non-occlusive superficial thrombus in the left cephalic vein similar from previous. -- Recommend anticoagulant therapy with Coumadin as this can be reversed with his recent GI bleeding 09/27/17. Multiple VTE, new RUE DVT, h.o RA thrombus. Anticoagulant therapy seem to decrease L arm swelling. Dry dressing placed over wound. No bleeding. 09/30: awaiting CBC today. may need blood transfusion. continue anticoagulation for now. 10/04/17. Noted Hgb decrease to 6.4, s/p 2UPRBC hgb now 10.2 Coumadin reversed with Vitamin K 2.5mg INR was therapeutic since 10/02, no overt bleeding identified. Considered Hgb 6.4 lab error, hgb rise from 2UPRBC is higher than expected. Discussed continue monitoring for bleeding. Pt with competing needs, h/o GI bleed recently, need for anticoagulation. LUE DVT, SVC syndrome h/o recurrent VTE. Hold anticoagulant therapy for now. 10/05: EGD/colonoscopy delayed as patient was not prepped. will dose with SQ heparin to help avoid blood clot as his hgb has remained stable. Assessment 47 y/o male with history of ESRD on dialysis, multiple DVTs, pulmonary embolism and SVC syndrome; hematology consulted for anticoagulant recommendations. Pt titrated on therapeutic dose of Coumadin when found to have hgb 6.4. Anticoagulation reversed. Plan 1. monitor CBC 2. give heparin 5000U SQ q 12 hrs x 2 doses. 3. if no bleeding seen on EGD/colonoscopy and hgb remains stable, would resume full dose anticoagulation tomorrow. Attending Statement The exam, history, and the medical decision-making described in the above note were completed with the assistance of the mid-level provider. I reviewed and agree with the findings presented. I attest that I had a [id number] encounter with the patient on the same day, and personally performed and documented my assessment and findings in the medical record. "When can I go home?" Discussed hgb increase, no sign of bleeding, anticoagulant tx held for GI procedure. Clinical suspicion of bleed low. Discussed bridging back to therapeutic INR with UFH. SQ dosing could be tried. UFH prophylaxis continue. No arm swelling despite stopping anticoagulation, INR 1.5. Oly Bowling Oct 05, 2017 13:12 Jennifer Gonzalez MD Oct 05, 2017 19:55
[2017-10-05] MEDS: HEPARIN SODIUM - SQ 10,000 UNITS/ML VIAL SQ SCH ×2 (13:54→20:22)
--- NOTE | 2017-10-05 14:11 | HHI.PR ---
Subjective Remarks Nursing denies any deterioration since last night. Patient's INR did improve to 1.5. Patient still needs to get oral prep for endoscopy procedures. Patient denies having any bloody bowel movements since yesterday. Had dialysis performed today. Objective Vital Signs Date Time Temp Pulse Resp B/P (MAP) Pulse Ox O2 Delivery O2 Flow Rate FiO2 10/05/17 08:00 97.5 80 17 148/79 (102) 94 10/05/17 04:00 97.2 80 18 146/70 (95) 91 10/05/17 00:00 98.1 86 18 132/70 (90) 91 10/04/17 20:00 82 10/04/17 20:00 97.8 81 18 121/77 (92) 98 10/04/17 15:52 98.3 82 17 134/68 (90) 94 I/O 10/04/17 10/04/17 10/04/17 10/05/17 10/05/17 10/05/17 07:00 15:00 23:00 07:00 15:00 23:00 Intake Total 240 ml 1080 ml Output Total 4000 ml Balance 240 ml 1080 ml -4000 ml Intake Oral 240 ml 1080 ml Hemodialysis 4000 ml # Voids 0 0 1 # Bowel Movements 0 0 1 Result Diagram: 10/04/17 1607 10/01/17 0550 Objective Remarks Middle-aged black male, lying in bed, awake, no acute distress Abdomen is soft, nontender, nondistended Has a table full of [employer] meal A/P Assessment and Plan Mr. Mercado is a 47 y/o male with a history of end-stage renal disease on hemodialysis, SLE, CAD, COPD/asthma, multiple DVTs, multiple PEs, bilateral BKA , and anxiety who was transferred back to [place] after undergoing endocrinology evaluation at [facility] in [place] from 09/14 until 09/23 following a lengthy hospitalization here from 08/12-09/14. The patient was experiencing hypoglycemia during his hospitalization here that was persistent despite treatment with D10W. He was found to have primary adrenal insufficiency , a right UE DVT, and a left arm abscess in AC s/p I and D now - all while at [facility]. [place] [facility] [place]. He is currently still inpatient due to a suspected GI bleed. Acute Anemia underlying Anemia of CKD S/P Upper GI bleed with esophageal varices GERD - Continue Protonix. Hemoglobin holding steady posttransfusion and FFP. Vitamin K given yesterday, INR down to 1.5, discussed with hematology oncology, we'll dose with prophylactic coverage with heparin until tomorrow so that the patient can get this procedure done safely while simultaneously managing his hypercoagulable state. - pt counseled on avoiding solid foods and has agreed to comply with a clear liquid diet for now for optimal oral preparation for his colonoscopy tomorrow, we'll get prep later this evening. RUE DVT right lower lobe thrombus SVC thrombosis right atrial thrombus History of multiple DVTs/PE - heme following; see above - INR 2.1 today Klebsiella Sepsis- Left AC abscess s/p I and D- wound edges clean- with decrease swelling - wound care nurse ff - appreciate recommendations - continue Ivanz 500 mg qday till 10/23 per ID - infectious disease specialist ff-per ID till 10/23 - repeat blood cultures negative Primary Adrenal Insufficiency - ACTH elevated per records from [facility] - Florinef 0.1 mg p.o. qday - Hydrocortisone 15 mg q a.m. and 5 mg q pm - will need outpatient endocrinology f/u - good BS readings Hypertension- cozaar daily ESRD on HD -- - last dialysis at [facility] on 09/23 -Dr. Merlos ff for HD arrangement - monitor renal function Chronic anxiety - continue Xanax 1 mg p.o. 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 CM working on securing different dialysis facility for patient since older facility is no longer taking him with his current insurance. Benjamín Elliott MD Oct 05, 2017 14:11
--- NOTE | 2017-10-05 14:49 | HHI.GIFU ---
Subjective Remarks Pt sitting up in bed, eating noodle soup, even though his diet is currently ordered as clear liquid in preparation for his colonoscopy tomorrow. Pt recently returned from dialysis today. He denies nausea, vomiting, abdominal pain. Last BM was yesterday, denies blood in stool or black, tarry stool. (Latrice Galeas) Objective Vitals I&O Vital Signs Date Time Temp Pulse Resp B/P (MAP) Pulse Ox O2 Delivery O2 Flow Rate FiO2 10/05/17 08:00 97.5 80 17 148/79 (102) 94 10/05/17 04:00 97.2 80 18 146/70 (95) 91 10/05/17 00:00 98.1 86 18 132/70 (90) 91 10/04/17 20:00 82 10/04/17 20:00 97.8 81 18 121/77 (92) 98 10/04/17 15:52 98.3 82 17 134/68 (90) 94 I/O 10/04/17 10/04/17 10/04/17 10/05/17 10/05/17 10/05/17 07:00 15:00 23:00 07:00 15:00 23:00 Intake Total 240 ml 1080 ml Output Total 4000 ml Balance 240 ml 1080 ml -4000 ml Intake Oral 240 ml 1080 ml Hemodialysis 4000 ml # Voids 0 0 1 # Bowel Movements 0 0 1 Laboratory Laboratory Tests Test 10/04/17 16:07 10/05/17 10:10 White Blood Count 6.1 Red Blood Count 3.40 Hemoglobin 10.2 Hematocrit 31.0 Mean Corpuscular Volume 91.2 Mean Corpuscular Hemoglobin 30.0 Mean Corpuscular Hemoglobin Concent 32.8 Red Cell Distribution Width 21.3 Platelet Count 237 Mean Platelet Volume 8.3 Neutrophils (%) (Auto) 80.6 Lymphocytes (%) (Auto) 9.3 Monocytes (%) (Auto) 5.7 Eosinophils (%) (Auto) 3.3 Basophils (%) (Auto) 1.1 Neutrophils # (Auto) 4.9 Lymphocytes # (Auto) 0.6 Monocytes # (Auto) 0.4 Eosinophils # (Auto) 0.2 Basophils # (Auto) 0.1 CBC Comment DIFF FINAL Differential Comment Total Bilirubin 0.4 Direct Bilirubin 0.1 Indirect Bilirubin 0.3 Aspartate Amino Transf (AST/SGOT) 9 Alanine Aminotransferase (ALT/SGPT) 8 Alkaline Phosphatase 66 Total Protein 8.3 Albumin 3.2 Prothrombin Time 15.3 Prothromb Time International Ratio 1.5 Date/Time Source Procedure Growth Status 09/26/17 15:12 Blood Line Aerobic Blood Culture - Final NO GROWTH IN 5 DAYS Complete 09/26/17 15:12 Blood Line Anaerobic Blood Culture - Final NO GROWTH IN 5 DAYS Complete Physical Exam HEENT: Normocephalic; atraumatic CHEST: Even/unlabored CARDIAC: RRR ABDOMEN: Soft, nondistended, nontender; bowel sounds active x 4 EXTREMITIES: No clubbing, cyanosis, or edema. SKIN: No rash; no jaundice. 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 (Latrice Galeas) Assessment and Plan Plan ASSESSMENT - Anemia- normocytic, normochromic- likely multifactorial. Dialysis pt, receives dialysis M,W,F. Receives epoetin james. H/H 10. yesterday, no labs from today. Has received 1 U PRBC on Oct 02. Was previously on Coumadin, reversed with Vit K. Received 2 U FFP Oct 03. No evidence of active GI bleeding at this time. Denies vomiting, blood in stool , or black, tarry stool. Has been placed on SQ Heparin bridge for LUE DVT, SVC syndrome until procedure. Pt eating noodle soup at time of my exam even though diet is ordered as clear liquid. He is aware that he needs to be only having clear liquids today. To receive prep at 1600. EGD with band ligation of varices (08/13/17) --> Bleeding esophageal varices, with active bleeding identified, 6 bands applied to control the bleeding. Gastritis in the stomach. Multiple large erosions in the duodenal bulb and 2nd part of the duodenum. PLAN - EGD/colonoscopy tomorrow - Obtain consents - Clear liquids today - NPO after MN - Hold Heparin in the morning - Monitor H/H - Transfuse as needed - Notify GI of active bleeding - Supportive care - Further recommendations to follow This patient has been seen and examined by myself and Dr. Rodriguez and this note is written on his behalf (Latrice Galeas) Physician Comments Will plan EGD and Colonoscopy tentatively for tomorrow pending INR. (Chon Rodriguez MD) Latrice Galeas Oct 05, 2017 14:49 Chon Rodriguez MD Oct 05, 2017 15:21
--- NOTE | 2017-10-05 15:48 | HHI.NPPN ---
Subjective History of Present Illness 47-year-old male with history of multiple medical problems including end-stage renal disease, hypertension, DVTs, multiple failed dialysis access disease but now is a functional AV dialysis fistula who was recently hostile eyes at this institution noted to have persisting hypoglycemia relative hypotension who is referred to [facility] in [place] for further evaluation by endocrinology. Patient apparently diagnosed as having primary hypoaldosteronism and has been started on Florinef as well as hydrocortisone by mouth. Also underwent incision and drainage of an infected hematoma of the left upper extremity. Patient has been transferred back to this institution. Interval History Patient seen postdialysis. Is scheduled for endoscopy tomorrow. No verbal complaints. Objective Data Data 10/05/17 10/06/17 19:00 07:00 Output Total 4000 ml Balance -4000 ml Hemodialysis 4000 ml Vital Signs Date Time Temp Pulse Resp B/P (MAP) Pulse Ox O2 Delivery O2 Flow Rate FiO2 10/05/17 08:00 97.5 80 17 148/79 (102) 94 10/05/17 04:00 97.2 80 18 146/70 (95) 91 10/05/17 00:00 98.1 86 18 132/70 (90) 91 10/04/17 20:00 82 10/04/17 20:00 97.8 81 18 121/77 (92) 98 10/04/17 15:52 98.3 82 17 134/68 (90) 94 -: 10/04/17 1607 10/01/17 0550 Physical Exam General Appearance: Comfortable Eyes Eye Exam: Sclera White Pulmonary Resp Exam: Clear Bilaterally, Breath Sounds Equal, No Distress Cardiology CV Exam: Regular, Normal Sinus Rhythm Gastrointestinal/Abdomen GI Exam: Soft, Non-Tender Integumentary Skin Exam: Clear, Warm Extremeties Extremities Exam: No Edema Neurologic Neuro Exam: Alert, Awake, Speech Clear Psychiatric Psych Exam: Appropriate Responses Assessment/Plan Discussed Condition With: Patient Problem List: (1) ESRD (end stage renal disease) on dialysis ICD Codes: N18.6 - End stage renal disease; Z99.2 - Dependence on renal dialysis Status: Chronic Plan: Next HD 10/05 to continue on MWF schedule. Patient has been out of the outpatient dialysis center for greater than 30 days and technically has been discharge from the facility. The dialysis facility will need authorization from the patient's insurance company to accept the patient back to the facility. Patient cannot be discharged until outpatient dialysis insurance company provides authorization for outpatient dialysis facility. Apparently the individual required to do same at the insurance company is not available until tomorrow. Medications should be adjusted with the patient's end-stage renal disease when indicated. Avoid gadolinium. (2) Anemia of renal disease ICD Codes: D63.1 - Anemia in chronic kidney disease Status: Chronic Plan: Continue Procrit with HD Pending EGD/colonoscopy when INR improved. s/p transfusion on 10/03 (3) Primary adrenal insufficiency ICD Codes: E27.1 - Primary adrenocortical insufficiency Status: Chronic Plan: Continue Florinef as well as Cortef as recommended by endocrinology at [facility]. (4) History of DVT (deep vein thrombosis) ICD Codes: Z86.718 - Personal history of other venous thrombosis and embolism Plan: Mgmt as per heme (5) Esophageal varices determined by endoscopy ICD Codes: I85.00 - Esophageal varices without bleeding Status: Chronic (6) Abscess of left upper extremity ICD Codes: L02.414 - Cutaneous abscess of left upper limb Status: Chronic Plan: Status post drainage at [facility]. Review of ID note says to continue Invanz until 10/23/17 Clarence Merlos MD Oct 05, 2017 15:48
[2017-10-05 16:00] VITALS: BP 120/57; PULSE 84; RESP 18; TEMP 97.5; O2SAT 98
[2017-10-05] MEDS ORDERED: PEG (High)/E-LYTE SOLN 4000 ML BTL PO ONE (16:00)
[2017-10-05] MEDS: ERTAPENEM IV SCH (16:34)
[2017-10-05] MEDS: SODIUM CHLORIDE 0.9% IV SCH (16:34)
[2017-10-05 17:34] LABS: AUTOMATED NEUTROPHIL # 3.9 TH/MM3 (1.8-7.7); BASOPHIL # 0.1 TH/MM3 (0-0.2); BASOPHIL % 0.9 % (0.0-2.0); EOSINOPHIL # 0.4 TH/MM3 (0-0.4); EOSINOPHIL % 6.4 % (0.0-4.0); HEMATOCRIT 31.8 % (39.0-51.0); HEMOGLOBIN 10.5 GM/DL (13.0-17.0); LYMPH % 14.4 % (9.0-44.0); LYMPHOCYTE # 0.8 TH/MM3 (1.0-4.8); MEAN CELL VOLUME 91.3 FL (80.0-100.0); MEAN CORPUSCULAR HEMOGLOBIN 30.1 PG (27.0-34.0); MEAN PLATELET VOLUME 8.3 FL (7.0-11.0); MONO % 10.6 % (0.0-8.0); MONOCYTE # 0.6 TH/MM3 (0-0.9); NEUT % 67.7 % (16.0-70.0); PLATELET COUNT 224 TH/MM3 (150-450); RED BLOOD COUNT 3.48 MIL/MM3 (4.50-5.90); RED CELL DISTRIBUTION WIDTH 21.2 % (11.6-17.2); WHITE BLOOD COUNT 5.8 TH/MM3 (4.0-11.0)
[2017-10-05 17:54] LABS: BICARBONATE 32.2 MEQ/L (21.0-32.0); CALCIUM 9.4 MG/DL (8.5-10.1); CREATININE 7.17 MG/DL (0.60-1.30)
[2017-10-05 17:59] LABS: ALBUMIN 3.5 GM/DL (3.4-5.0); BICARBONATE 31.8 MEQ/L (21.0-32.0); CALCIUM 9.4 MG/DL (8.5-10.1); CREATININE 7.05 MG/DL (0.60-1.30); PHOSPHORUS 2.7 MG/DL (2.5-4.9)
[2017-10-05 20:00] VITALS: BP 123/78; PULSE 70; RESP 20; TEMP 97.2; O2SAT 94
[2017-10-06] VITALS (9 sets, daily range): BP systolic 114–152; BP diastolic 56–82; PULSE 70–78; RESP 17–19; TEMP 97.3–98; O2SAT 90–96
[2017-10-06] MEDS: LOSARTAN 25 MG TAB PO SCH (06:20)
[2017-10-06] MEDS: SEVELAMER CARBONATE 800 MG TAB PO SCH ×3 (08:00→17:00)
[2017-10-06] MEDS: HEPARIN SODIUM - SQ 10,000 UNITS/ML VIAL SQ SCH ×3 (09:00→21:06)
--- NOTE | 2017-10-06 09:53 | HHI.NPPN ---
Subjective History of Present Illness 47-year-old male with history of multiple medical problems including end-stage renal disease, hypertension, DVTs, multiple failed dialysis access disease but now is a functional AV dialysis fistula who was recently hostile eyes at this institution noted to have persisting hypoglycemia relative hypotension who is referred to [facility] in [place] for further evaluation by endocrinology. Patient apparently diagnosed as having primary hypoaldosteronism and has been started on Florinef as well as hydrocortisone by mouth. Also underwent incision and drainage of an infected hematoma of the left upper extremity. Patient has been transferred back to this institution. Interval History Pt offers no new complaints. Going to EDG/colonoscopy today, but is having difficult time drinking GoLytely. Objective Data Data Vital Signs Date Time Temp Pulse Resp B/P (MAP) Pulse Ox O2 Delivery O2 Flow Rate FiO2 10/06/17 08:40 97.6 77 18 150/68 (95) 90 10/06/17 04:00 97.6 77 19 114/82 (93) 94 10/06/17 00:00 97.8 70 19 124/56 (78) 92 10/05/17 20:00 97.2 70 20 123/78 (93) 94 10/05/17 16:00 97.5 84 18 120/57 (78) 98 -: 10/05/17 1650 10/05/17 1650 Medication Review Current Medications Medications (Trade) Dose Ordered Sig/Nohelia Route Start Time Stop Time Status Last Admin (NS Flush) 2 ml UNSCH PRN IV FLUSH 09/23/17 23:15 (NS Flush) 2 ml BID IV FLUSH 09/24/17 09:00 10/05/17 20:22 (Tylenol) 650 mg Q4H PRN PO 09/23/17 23:15 (Zofran Inj) 4 mg Q6H PRN IVP 09/23/17 23:15 (Narcan Inj) 0.4 mg UNSCH PRN IV PUSH 09/23/17 23:15 Miscellaneous Information 1 Q361D XX 09/23/17 23:15 09/23/17 23:15 ([place] 5-325 Mg) 1 tab Q4H PRN PO 09/24/17 00:30 10/02/17 00:51 (Xanax) 1 mg Q12HR PO 09/24/17 09:00 10/05/17 20:22 (Florinef) 0.1 mg DAILY PO 09/24/17 09:00 10/04/17 09:42 (Protonix) 40 mg DAILY PO 09/24/17 09:00 10/04/17 09:42 (Renvela) 2,400 mg TIDAC PO 09/24/17 08:00 10/04/17 12:33 (Proair Hfa Inh) 2 puff Q6H PRN INH 09/24/17 00:30 09/30/17 14:08 (Pill Splitter) 1 ea UNSCH PRN OTHER 09/24/17 00:45 (Pepcid) 10 mg BID PO 09/24/17 21:00 10/05/17 20:22 Ertapenem 500 mg/ Sodium Chloride 50 ml @ 200 mls/hr Q24H IV 09/25/17 18:00 10/23/17 23:00 10/05/17 16:34 (Cortef) 15 mg DAILY PO 09/26/17 09:00 10/04/17 09:41 (Cortef) 5 mg DAILY@2000 PO 09/25/17 20:00 10/05/17 20:22 Sodium Chloride 1,000 ml @ 0 mls/hr Q0M PRN OTHER 09/25/17 15:30 10/05/17 12:00 Sodium Chloride 1,000 ml @ 200 mls/hr Q5H PRN IV 09/25/17 15:30 Sodium Chloride 1,000 ml @ 0 mls/hr Q0M PRN OTHER 09/25/17 15:30 (Mannitol Inj) 12.5 gm UNSCH PRN IV 09/25/17 15:30 Albumin Human 100 ml @ 60 mls/hr UNSCH PRN IV 09/25/17 15:30 (NS Flush) 5 ml UNSCH PRN IV FLUSH 09/25/17 15:30 (Zofran Inj) 4 mg UNSCH PRN IV PUSH 09/25/17 15:30 (Tylenol) 650 mg UNSCH PRN PO 09/25/17 15:30 (Benadryl) 25 mg UNSCH PRN PO 09/25/17 15:30 (Nitrostat Sl) 0.4 mg UNSCH PRN SL 09/25/17 15:30 (Catapres) 0.1 mg UNSCH PRN PO 09/25/17 15:30 (Epogen Inj) 10,000 units UNSCH PRN IV PUSH 09/25/17 15:30 10/05/17 12:00 (Gelfoam 12 Mm/7 Mm Top) 1 foam UNSCH PRN TOP 09/25/17 15:30 10/05/17 12:00 (Cozaar) 25 mg DAILY@0700 PO 09/27/17 07:00 10/06/17 06:20 (Coumadin) 5 mg DAILY@1600 PO 09/28/17 16:00 Future Hold 10/01/17 17:50 (Tylenol) 650 mg Q4H PRN PO 09/28/17 12:00 (Benadryl) 25 mg Q4H PRN PO 09/28/17 12:00 (Heparin Inj) 5,000 units Q12HR SQ 10/05/17 13:00 10/05/17 13:54 Physical Exam General Appearance: Comfortable Eyes Eye Exam: Sclera White Pulmonary Resp Exam: Clear Bilaterally, Breath Sounds Equal, No Distress Cardiology CV Exam: Regular, Normal Sinus Rhythm Gastrointestinal/Abdomen GI Exam: Soft, Non-Tender Integumentary Skin Exam: Clear, Warm Extremeties Extremities Exam: No Edema Neurologic Neuro Exam: Alert, Awake, Speech Clear Psychiatric Psych Exam: Appropriate Responses Assessment/Plan Discussed Condition With: Patient Problem List: (1) ESRD (end stage renal disease) on dialysis ICD Codes: N18.6 - End stage renal disease; Z99.2 - Dependence on renal dialysis Status: Chronic Plan: HD as scheduled tomorrow. Continue MWF Patient has been out of the outpatient dialysis center for greater than 30 days and technically has been discharge from the facility. The dialysis facility will need authorization from the patient's insurance company to accept the patient back to the facility. Patient cannot be discharged until outpatient dialysis insurance company provides authorization for outpatient dialysis facility. Apparently the individual required to do same at the insurance company is not available until today. Pending answer. Medications should be adjusted with the patient's end-stage renal disease when indicated. Avoid gadolinium. (2) Anemia of renal disease ICD Codes: D63.1 - Anemia in chronic kidney disease Status: Chronic Plan: Continue Procrit with HD Pending EGD/colonoscopy when INR improved. s/p transfusion on 10/03 (3) Primary adrenal insufficiency ICD Codes: E27.1 - Primary adrenocortical insufficiency Status: Chronic Plan: Continue Florinef as well as Cortef as recommended by endocrinology at [facility]. (4) History of DVT (deep vein thrombosis) ICD Codes: Z86.718 - Personal history of other venous thrombosis and embolism Plan: Mgmt as per heme (5) Esophageal varices determined by endoscopy ICD Codes: I85.00 - Esophageal varices without bleeding Status: Chronic (6) Abscess of left upper extremity ICD Codes: L02.414 - Cutaneous abscess of left upper limb Status: Chronic Plan: Status post drainage at [facility]. Review of ID note says to continue Invanz until 10/23/17 Gladis Cole Oct 06, 2017 09:53
[2017-10-06] MEDS: PANTOPRAZOLE SOD 40 MG DELAYED RELEASE TAB PO SCH (10:02)
[2017-10-06] MEDS: HYDROCORTISONE 10 MG TAB PO SCH ×2 (10:02→21:06)
[2017-10-06] MEDS: FAMOTIDINE 20 MG TAB PO SCH ×2 (10:03→21:06)
[2017-10-06] MEDS: ALPRAZolam 1 MG TAB PO SCH ×2 (10:03→21:06)
[2017-10-06] MEDS: FLUDROCORTISONE ACETATE 0.1 MG TAB PO SCH (10:03)
[2017-10-06] MEDS: SODIUM CHLORIDE 0.9% FLUSH 10 ML FLUSH IV FLUSH SCH ×2 (10:13→21:00)
[2017-10-06] MEDS ORDERED: POTASSIUM CHLORIDE 10 MEQ CONTROLLED RELEASE TAB PO ONE (11:00)
--- NOTE | 2017-10-06 11:27 | HHI.PR ---
Subjective Remarks Nursing reports that the patient refused his oral prep yesterday as the patient thought this might interfere with his fluid balance; this was even after I explained to him earlier today that this was mainly a GI tract manipulation. When asked today why he refused, the patient takes a very long time to respond and eventually asks if he really needs a colonoscopy. When asked if there something that bothers him about the preparation for the procedure, he has no answer, ages quietly contemplates. I explained to the patient that he is delaying his discharge and his healthcare by report repetitively fluctuating back and forth between his decision making about proceeding with the preparation and then postponing it especially since we have to reverse his coagulation state back to therapeutic levels if he is not getting his procedure done given his history of VTEs. Objective Vital Signs Date Time Temp Pulse Resp B/P (MAP) Pulse Ox O2 Delivery O2 Flow Rate FiO2 10/06/17 08:40 97.6 77 18 150/68 (95) 90 10/06/17 08:00 70 10/06/17 04:00 97.6 77 19 114/82 (93) 94 10/06/17 00:00 97.8 70 19 124/56 (78) 92 10/05/17 20:00 97.2 70 20 123/78 (93) 94 10/05/17 16:00 97.5 84 18 120/57 (78) 98 I/O 10/05/17 10/05/17 10/05/17 10/06/17 10/06/17 10/06/17 07:00 15:00 23:00 07:00 15:00 23:00 Intake Total 780 ml Output Total 4650 ml Balance -3870 ml Intake Oral 780 ml Output Urine Total 650 ml Hemodialysis 4000 ml # Voids 1 1 0 # Bowel Movements 1 0 0 0 Result Diagram: 10/05/17 1650 10/05/17 1650 Objective Remarks Middle-aged black male, sitting in bed, awake, no acute distress Abdomen is soft, nontender, nondistended Unlabored breathing Pt awake, alert, oriented A/P Assessment and Plan Mr. Mercado is a 47 y/o male with a history of end-stage renal disease on hemodialysis, SLE, CAD, COPD/asthma, multiple DVTs, multiple PEs, bilateral BKA , and anxiety who was transferred back to [place] after undergoing endocrinology evaluation at [facility] in [place] from 09/14 until 09/23 following a lengthy hospitalization here from 08/12-09/14. The patient was experiencing hypoglycemia during his hospitalization here that was persistent despite treatment with D10W. He was found to have primary adrenal insufficiency , a right UE DVT, and a left arm abscess in AC s/p I and D now - all while at [facility]. He is transferred back to [facility] [place] continued medical management. He is currently still inpatient due to a suspected GI bleed. Acute Anemia underlying Anemia of CKD S/P Upper GI bleed with esophageal varices GERD - Continue Protonix; I spent considerable time at the bedside counseling the patient about the importance of getting this examined since it could be anything from colorectal cancer to something benign but we have no definitive way of knowing until a colonoscopy is performed. Eventually he agrees and starts taking the prep slowly; hopeful colonoscopy and endoscopy tomorrow. Discussed with hematology oncology who will continue prophylactic heparin dosing given he has an active DVT. Last INR yesterday was 1.5, warfarin being held. h/h stable most recently. RUE DVT right lower lobe thrombus SVC thrombosis right atrial thrombus History of multiple DVTs/PE - heme following; see above - INR 1.5 yesterday Klebsiella Sepsis- Left AC abscess s/p I and D- wound edges clean- with decrease swelling - wound care nurse ff - appreciate recommendations - continue Ivanz 500 mg qday till 10/23 per ID - infectious disease specialist ff-per ID till 10/23 - repeat blood cultures negative Primary Adrenal Insufficiency - ACTH elevated per records from [facility] [place] 0.1 mg p.o. qday - Hydrocortisone 15 mg q a.m. and 5 mg q pm - will need outpatient endocrinology f/u - good BS readings Hypertension- cozaar daily ESRD on HD -W- - last dialysis at [facility] on 09/23 -Dr. Merlos ff for HD arrangement - monitor renal function Chronic anxiety - continue Xanax 1 mg p.o. BID SLE positive per records review - not on any bed bug 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 medication for SLE Bilateral BKA - PT consult per patient was in the course of evaluation for prosthesis when acute medical problems came up DVT prophylaxis - SCDs/TEDs PT/OT -for deconditioning Dietitian ff- on Nephro cupplements CM for DC planning- outpt IV abx arranged for but now outpatient dialysis has to be set up since his older dialysis clinic is now rejecting his insurance. Case management is also working on this as well. Benjamín Elliott MD Oct 06, 2017 11:27
[2017-10-06 11:45] LABS: AUTOMATED NEUTROPHIL # 2.7 TH/MM3 (1.8-7.7); BASOPHIL % 0.7 % (0.0-2.0); EOSINOPHIL # 0.4 TH/MM3 (0-0.4); EOSINOPHIL % 7.7 % (0.0-4.0); HEMATOCRIT 33.1 % (39.0-51.0); HEMOGLOBIN 10.9 GM/DL (13.0-17.0); LYMPH % 18.7 % (9.0-44.0); LYMPHOCYTE # 0.9 TH/MM3 (1.0-4.8); MEAN CELL VOLUME 91.4 FL (80.0-100.0); MEAN CORPUSCULAR HGB CONC 32.9 % (32.0-36.0); MEAN PLATELET VOLUME 8.1 FL (7.0-11.0); MONO % 13.8 % (0.0-8.0); MONOCYTE # 0.6 TH/MM3 (0-0.9); NEUT % 59.1 % (16.0-70.0); PLATELET COUNT 205 TH/MM3 (150-450); RED BLOOD COUNT 3.62 MIL/MM3 (4.50-5.90); RED CELL DISTRIBUTION WIDTH 21.6 % (11.6-17.2); WHITE BLOOD COUNT 4.6 TH/MM3 (4.0-11.0)
--- NOTE | 2017-10-06 12:29 | PD.ONC.PN ---
Subjective Subjective Remarks Afebrile overnight. Patient resting in bed in nad. Did not finish prep yesterday. EGD/Cx delayed until tomorrow. Patient prepping again today. Objective Data Date Time Temp Pulse Resp B/P (MAP) Pulse Ox O2 Delivery O2 Flow Rate FiO2 10/06/17 12:12 97.3 74 18 133/63 (86) 96 10/06/17 08:40 97.6 77 18 150/68 (95) 90 10/06/17 08:00 70 10/06/17 04:00 97.6 77 19 114/82 (93) 94 10/06/17 00:00 97.8 70 19 124/56 (78) 92 10/05/17 20:00 97.2 70 20 123/78 (93) 94 10/05/17 16:00 97.5 84 18 120/57 (78) 98 Result Diagram: 10/06/17 1105 10/05/17 1650 Laboratory Results Laboratory Tests Test 10/05/17 16:50 10/06/17 11:05 White Blood Count 5.8 TH/MM3 4.6 TH/MM3 Red Blood Count 3.48 MIL/MM3 3.62 MIL/MM3 Hemoglobin 10.5 GM/DL 10.9 GM/DL Hematocrit 31.8 % 33.1 % Mean Corpuscular Volume 91.3 FL 91.4 FL Mean Corpuscular Hemoglobin 30.1 PG 30.0 PG Mean Corpuscular Hemoglobin Concent 33.0 % 32.9 % Red Cell Distribution Width 21.2 % 21.6 % Platelet Count 224 TH/MM3 205 TH/MM3 Mean Platelet Volume 8.3 FL 8.1 FL Neutrophils (%) (Auto) 67.7 % 59.1 % Lymphocytes (%) (Auto) 14.4 % 18.7 % Monocytes (%) (Auto) 10.6 % 13.8 % Eosinophils (%) (Auto) 6.4 % 7.7 % Basophils (%) (Auto) 0.9 % 0.7 % Neutrophils # (Auto) 3.9 TH/MM3 2.7 TH/MM3 Lymphocytes # (Auto) 0.8 TH/MM3 0.9 TH/MM3 Monocytes # (Auto) 0.6 TH/MM3 0.6 TH/MM3 Eosinophils # (Auto) 0.4 TH/MM3 0.4 TH/MM3 Basophils # (Auto) 0.1 TH/MM3 0.0 TH/MM3 CBC Comment DIFF FINAL DIFF FINAL Differential Comment Blood Urea Nitrogen 38 MG/DL Creatinine 7.17 MG/DL Random Glucose 84 MG/DL Calcium Level 9.4 MG/DL Sodium Level 137 MEQ/L Potassium Level 3.2 MEQ/L Chloride Level 97 MEQ/L Carbon Dioxide Level 32.2 MEQ/L Albumin 3.5 GM/DL Phosphorus Level 2.7 MG/DL Anion Gap 8 MEQ/L Estimat Glomerular Filtration Rate 10 ML/MIN Administered Medications Medications (Trade) Dose Ordered Sig/Nohelia Route PRN Reason Start Time Stop Time Status Last Admin Dose Admin Sodium Chloride (NS Flush) 2 ml BID IV FLUSH 09/24/17 09:00 10/06/17 10:13 Miscellaneous Information 1 Q361D XX 09/23/17 23:15 09/23/17 23:15 Acetaminophen/ Hydrocodone Bitart ([place] 5-325 Mg) 1 tab Q4H PRN PO pain > 4 09/24/17 00:30 10/02/17 00:51 Alprazolam (Xanax) 1 mg Q12HR PO 09/24/17 09:00 10/06/17 10:03 Fludrocortisone Acetate (Florinef) 0.1 mg DAILY PO 09/24/17 09:00 10/06/17 10:03 Pantoprazole Sodium (Protonix) 40 mg DAILY PO 09/24/17 09:00 10/06/17 10:02 Sevelamer Carbonate (Renvela) 2,400 mg TIDAC PO 09/24/17 08:00 10/04/17 12:33 Albuterol Sulfate (Proair Hfa Inh) 2 puff Q6H PRN INH sob/wheezing 09/24/17 00:30 09/30/17 14:08 Famotidine (Pepcid) 10 mg BID PO 09/24/17 21:00 10/06/17 10:03 Ertapenem 500 mg/ Sodium Chloride 50 ml @ 200 mls/hr Q24H IV 09/25/17 18:00 10/23/17 23:00 10/05/17 16:34 Hydrocortisone (Cortef) 15 mg DAILY PO 09/26/17 09:00 10/06/17 10:02 Hydrocortisone (Cortef) 5 mg DAILY@2000 PO 09/25/17 20:00 10/05/17 20:22 Sodium Chloride 1,000 ml @ 0 mls/hr Q0M PRN OTHER For [employer] Back 09/25/17 15:30 10/05/17 12:00 Epoetin Eddie (Epogen Inj) 10,000 units UNSCH PRN IV PUSH WITH DIALYSIS 09/25/17 15:30 10/05/17 12:00 Gelatin (Gelfoam 12 Mm/7 Mm Top) 1 foam UNSCH PRN TOP SEE LABEL COMMENTS 09/25/17 15:30 10/05/17 12:00 Losartan Potassium (Cozaar) 25 mg DAILY@0700 PO 09/27/17 07:00 10/06/17 06:20 Warfarin Sodium (Coumadin) 5 mg DAILY@1600 PO 09/28/17 16:00 Future Hold 10/01/17 17:50 Heparin Sodium (Porcine) (Heparin Inj) 5,000 units Q12HR SQ 10/05/17 13:00 10/05/17 13:54 Objective Remarks GENERAL: Middle aged male supine in bed in nad. SKIN: Warm and dry. HEAD: Normocephalic. EYES: No injection or drainage. NECK: Supple, trachea midline. CARDIOVASCULAR: +S1/S2 RESPIRATORY: anterior duarte clear GASTROINTESTINAL: Abdomen soft, non-tender, nondistended. EXTREMITIES: No cyanosis NEUROLOGICAL: aox3. normal speech. moving all extremities. Assessment/Plan Problem List: (1) History of DVT (deep vein thrombosis) ICD Codes: Z86.718 - Personal history of other venous thrombosis and embolism Plan: -- history of systemic lupus, multiple DVTs, pulmonary embolism and SVC syndrome -- He has a non-occlusive thrombus in the right IJ left subclavian vein. -- CT angiogram showed a chronic occlusive thrombus in the right lower lobe with chronic thromboses extending into the right atrium. -- Ultrasound August 24 shows a small amount of non-occlusive thrombus in the cephalic vein on the left. -- Repeat ultrasound of the upper extremity on September 06 showed non-occlusive superficial thrombus in the left cephalic vein similar from previous. -- Recommend anticoagulant therapy with Coumadin as this can be reversed with his recent GI bleeding 09/27/17. Multiple VTE, new RUE DVT, h.o RA thrombus. Anticoagulant therapy seem to decrease L arm swelling. Dry dressing placed over wound. No bleeding. 09/30: awaiting CBC today. may need blood transfusion. continue anticoagulation for now. 10/04/17. Noted Hgb decrease to 6.4, s/p 2UPRBC hgb now 10.2 Coumadin reversed with Vitamin K 2.5mg INR was therapeutic since 10/02, no overt bleeding identified. Considered Hgb 6.4 lab error, hgb rise from 2UPRBC is higher than expected. Discussed continue monitoring for bleeding. Pt with competing needs, h/o GI bleed recently, need for anticoagulation. LUE DVT, SVC syndrome h/o recurrent VTE. Hold anticoagulant therapy for now. 10/05: EGD/colonoscopy delayed as patient was not prepped. will dose with SQ heparin to help avoid blood clot as his hgb has remained stable. 10/06: EGD/colonoscopy again delayed. continue heparin prophylaxis. will resume coumadin after EGD/Colonoscopy tomorrow. Assessment 47 y/o male with history of ESRD on dialysis, multiple DVTs, pulmonary embolism and SVC syndrome; hematology consulted for anticoagulant recommendations. Pt titrated on therapeutic dose of Coumadin when found to have hgb 6.4. Anticoagulation reversed. Plan 1. monitor CBC 2. continue heparin 5000U SQ prophylaxis 3. resume full dose anticoagulation after EGD/Colonoscopy tomorrow. Oly Bowling Oct 06, 2017 12:29 Estephania Queen MD Oct 07, 2017 23:43
[2017-10-06 13:42] LABS: BICARBONATE 29.1 MEQ/L (21.0-32.0); CALCIUM 9.4 MG/DL (8.5-10.1); CREATININE 9.06 MG/DL (0.60-1.30)
[2017-10-06] MEDS: ACETAMINOPHEN/HYDROcodone 325 MG/5 MG TAB PO PRN (13:54)
[2017-10-06] MEDS: SODIUM CHLORIDE 0.9% IV SCH (18:06)
[2017-10-06] MEDS: ERTAPENEM IV SCH (18:06)
[2017-10-07] VITALS: BP 132/64; PULSE 61; RESP 18; TEMP 98.1; O2SAT 92
[2017-10-07 04:00] VITALS: BP 114/64; PULSE 63; RESP 18; TEMP 98; O2SAT 97
[2017-10-07] MEDS ORDERED: METOPROLOL TARTRATE 25 MG TAB PO PRN (04:00)
[2017-10-07] MEDS ORDERED: CHLORHEXIDINE GLUCONATE 2 % 1 PACK (2 CLOTHS) TOPICAL PRN (04:00)
[2017-10-07] MEDS ORDERED: SODIUM CHLORID 0.9% 500 ML IV PRN (04:00)
[2017-10-07] MEDS ORDERED: LACTATED RINGER'S 1000 ML IV PRN (04:00)
[2017-10-07] MEDS: LOSARTAN 25 MG TAB PO SCH (07:00)
[2017-10-07 08:23] VITALS: BP 196/93; PULSE 84; RESP 17; TEMP 97.6; O2SAT 91
[2017-10-07 08:30] VITALS: PULSE 78
[2017-10-07] MEDS: SEVELAMER CARBONATE 800 MG TAB PO SCH ×3 (08:35→17:55)
[2017-10-07] MEDS: FAMOTIDINE 20 MG TAB PO SCH ×2 (08:42→21:22)
[2017-10-07] MEDS: FLUDROCORTISONE ACETATE 0.1 MG TAB PO SCH (08:42)
[2017-10-07] MEDS: PANTOPRAZOLE SOD 40 MG DELAYED RELEASE TAB PO SCH (08:43)
[2017-10-07] MEDS: HYDROCORTISONE 10 MG TAB PO SCH ×2 (08:43→21:22)
[2017-10-07] MEDS: ALPRAZolam 1 MG TAB PO SCH ×2 (08:44→21:22)
[2017-10-07] MEDS: SODIUM CHLORIDE 0.9% FLUSH 10 ML FLUSH IV FLUSH SCH ×2 (08:44→20:00)
--- NOTE | 2017-10-07 10:56 | HHI.PR ---
Subjective Remarks Nursing denies any deterioration since last night. Patient did have substantial delay in having a bowel movement even after his prep. Eventually did have one after his soapsuds enema and the patient now states that he has been going "all morning." Objective Vital Signs Date Time Temp Pulse Resp B/P (MAP) Pulse Ox O2 Delivery O2 Flow Rate FiO2 10/07/17 08:23 97.6 84 17 196/93 (127) 91 10/07/17 04:00 98.0 63 18 114/64 (81) 97 10/07/17 00:00 98.1 61 18 132/64 (86) 92 10/06/17 22:49 78 10/06/17 20:00 98.0 72 18 132/68 (89) 95 10/06/17 16:47 97.3 76 17 152/78 (102) 91 10/06/17 15:00 18 10/06/17 12:55 71 10/06/17 12:12 97.3 74 18 133/63 (86) 96 I/O 10/06/17 10/06/17 10/06/17 10/07/17 10/07/17 10/07/17 07:00 15:00 23:00 07:00 15:00 23:00 # Voids 0 1 0 # Bowel Movements 0 Result Diagram: 10/06/17 1105 10/06/17 1310 Objective Remarks Middle-aged black male, sitting in bed, awake, no acute distress Abdomen is soft, nontender, nondistended Unlabored breathing A/P Assessment and Plan Mr. Mercado is a 47 y/o male with a history of end-stage renal disease on hemodialysis, SLE, CAD, COPD/asthma, multiple DVTs, multiple PEs, bilateral BKA , and anxiety who was transferred back to [place] after undergoing endocrinology evaluation at [facility] in [place] from 09/14 until 09/23 following a lengthy hospitalization here from 08/12-09/14. The patient was experiencing hypoglycemia during his hospitalization here that was persistent despite treatment with D10W. He was found to have primary adrenal insufficiency , a right UE DVT, and a left arm abscess in AC s/p I and D now - all while at [facility]. He is transferred back to [facility] for continued medical management. He is currently still inpatient due to a suspected GI bleed. Acute Anemia underlying Anemia of CKD S/P Upper GI bleed with esophageal varices GERD - Continue Protonix; anticipate procedures today hopefully since patient did take his oral prep yesterday. Stable blood counts so far RUE DVT right lower lobe thrombus SVC thrombosis right atrial thrombus History of multiple DVTs/PE - heme following; see above - INR 1.5 2 days ago; will need to start up anticoagulation once endoscopy procedures are done Klebsiella Sepsis- Left AC abscess s/p I and D- wound edges clean- with decrease swelling - wound care nurse ff - appreciate recommendations - continue Ivanz 500 mg qday till 10/23 per ID - infectious disease specialist ff-per ID till 10/23 - repeat blood cultures negative Primary Adrenal Insufficiency - ACTH elevated per records from [facility] - Florinef 0.1 mg p.o. qday - Hydrocortisone 15 mg q a.m. and 5 mg q pm - will need outpatient endocrinology f/u - good BS readings Hypertension- cozaar daily ESRD on HD - - last dialysis at [facility] on 09/23 -Dr. Merlos ff for HD arrangement - monitor renal function Chronic anxiety - continue Xanax 1 mg p.o. BID SLE positive per records review - not on any cmm programmer medication for SLE Bilateral BKA - PT consult per patient was in the course of evaluation for prosthesis when acute medical problems came up DVT prophylaxis - SCDs/TEDs PT/OT -for deconditioning Dietitian ff- on Nephro cupplements CM for DC planning- outpt IV abx arranged' still working on outpatient dialysis has to be set up since his older dialysis clinic is now rejecting his insurance. Case management is also working on this as well. Benjamín Elliott MD Oct 07, 2017 10:56
[2017-10-07] MEDS ORDERED: LIDOCAINE HCL 1% PF 5 ML SYRINGE OTHER ONE (12:00)
[2017-10-07] MEDS ORDERED: PROPOFOL 200 MG/20 ML AMP IV ONE (12:00)
[2017-10-07] MEDS ORDERED: ePHEDrine/NS 25 MG/5 ML SYRINGE IV ONE (12:00)
[2017-10-07] MEDS ORDERED: PHENYLEPH/NS 1000 MCG/10 ML SYR IV ONE (12:00)
--- NOTE | 2017-10-07 13:36 | GIPROC ---
[facility] [address] [facility]. [facility], [address] COLONOSCOPY PROCEDURE REPORT EXAM DATE: 10/07/2017 PATIENT NAME: Gino Mercado MR #: [id number] BIRTHDATE: 1970 ENDOSCOPIST: Chon Rodriguez MD ORDER #: [id number] [employer] APPRENTICE: Funmi George and Mable Barber STATUS: inpatient INDICATIONS: The patient is a 47 yr old male here for a colonoscopy due to anemia, non-specific PROCEDURE PERFORMED: Colonoscopy, diagnostic MEDICATIONS: None and Per Anesthesia. PREP QUALITY: poor PREP TYPE:GoLytely ESTIMATED BLOOD LOSS: None CONSENT: The patient understands the risks and benefits of the procedure and understands that these risks include, but are not limited to: sedation, allergic reaction, infection, perforation and/or bleeding. Alternative means of evaluation and treatment include, among others: physical exam, x-rays, and/or surgical intervention. The patient elects to proceed with this endoscopic procedure. medical equipment was checked for proper function. Hand hygiene and appropriate measures for infection prevention was taken. After the risks, benefits and alternatives of the procedure were thoroughly explained, Informed consent was verified, confirmed and timeout was successfully executed by the treatment team. A digital exam revealed no abnormalities of the rectum The Pentax EC-[id number] endoscope was introduced through the anus and advanced to the cecum, which was identified by both the appendix and ileocecal valve. The instrument was then slowly withdrawn as the colon was fully examined. COLON FINDINGS: A significant amount of stool was present throughout the entire examined colon. Retroflexed views revealed internal hemorrhoids and Retroflexed views revealed medium internal hemorrhoids The scope was then completely withdrawn from the patient and the procedure terminated. PROCEDURE WITHDRAWAL TIME:10minutes ADVERSE EVENTS: There were no complications. IMPRESSIONS: 1. Significant amount of stool was present throughout the entire examined colon 2. Retroflexed views revealed internal hemorrhoids RECOMMENDATIONS: Resume Anti- coagulation after 6 hours. RECALL: Return 3 years Colonoscopy Chon Rodriguez MD eSigned: Chon Rodriguez MD 10/07/2017 1:36 PM cc:
--- NOTE | 2017-10-07 13:44 | GIPROC ---
[facility] [address] [facility]. [facility], [address] EGD PROCEDURE REPORT EXAM DATE: 10/07/2017 PATIENT NAME: Gino Mercado MR #: [id number] BIRTHDATE: 1970 ATTENDING: Chon Rodriguez MD ORDER #: [id number] COAT CHECKER: Funmi Georeg and Mable Barber STATUS: inpatient INDICATIONS: The patient is a 47 yr old male here for an EGD due to anemia PROCEDURE PERFORMED: EGD w/ biopsy EGD w/ band ligation of varices MEDICATIONS: None and Per Anesthesia. TOPICAL ANESTHETIC: none CONSENT: The patient understands the risks and benefits of the procedure and understands that these risks include, but are not limited to: sedation, allergic reaction, infection, perforation and/or bleeding. Alternative means of evaluation and treatment include, among others: physical exam, x-rays, and/or surgical intervention. The patient elects to proceed with this endoscopic procedure. medical equipment was checked for proper function. Hand hygiene and appropriate measures for infection prevention was taken. After the risks, benefits and alternatives of the procedure were thoroughly explained, Informed consent was verified, confirmed and timeout was successfully executed by the treatment team. The patient was anesthetized with topical anesthesia and the EC-[id number] (Pedi C) endoscope was introduced through the mouth and advanced to the second portion of the duodenum. Retroflexion was performed and was normal The gastroscope was then slowly withdrawn and removed. ESOPHAGUS: There were 6 columns of large varices in the mid esophagus and distal esophagus. The varices were not bleeding. There was evidence of a nicholson spot sign. STOMACH: There was acute severe and ulcerative gastritis in the entire examined stomach. A biopsy was performed using cold forceps. Sample sent for histology. DUODENUM: Mild duodenal inflammation was found in the duodenal bulb and 2nd part duodenum. ADVERSE EVENTS: There were no complications. IMPRESSIONS: 1. There was acute gastritis in the entire examined stomach; biopsy was performed 2. Duodenal inflammation was found in the duodenal bulb and 2nd part duodenum 3. Retroflexion was performed and was normal RECOMMENDATIONS: 1. Await biopsy results. Biopsy results will not be ready for 7-10 days. If you don't hear from us in two weeks, call our office for biopsy results. 2. Continue PPI 3. Repeat EGD and Banding within a month 4. Resume anti-coagulation after 6 hours if needed PATIENT CONDITION: stable DISPOSITION: Observation REPEAT EXAM: Return 4 weeks EGD Chon Rodriguez MD eSigned: Chon Rodriguez MD 10/07/2017 1:43 PM cc: PATIENT NAME: Gino Mercado MR#: [id number]
--- NOTE | 2017-10-07 14:37 | PD.ONC.PN ---
Subjective Subjective Remarks Afebrile overnight. Patient resting in bed. Feeling very fatigued and has headache. Just back from GI procedure, about to go for dialysis. Objective Data Date Time Temp Pulse Resp B/P (MAP) Pulse Ox O2 Delivery O2 Flow Rate FiO2 10/07/17 08:30 78 10/07/17 08:23 97.6 84 17 196/93 (127) 91 10/07/17 04:00 98.0 63 18 114/64 (81) 97 10/07/17 00:00 98.1 61 18 132/64 (86) 92 10/06/17 22:49 78 10/06/17 20:00 98.0 72 18 132/68 (89) 95 10/06/17 16:47 97.3 76 17 152/78 (102) 91 10/06/17 15:00 18 10/07/17 10/07/17 10/07/17 07:00 15:00 23:00 Intake Total 400 ml Balance 400 ml Result Diagram: 10/06/17 1105 10/06/17 1310 Administered Medications Medications (Trade) Dose Ordered Sig/Nohelia Route PRN Reason Start Time Stop Time Status Last Admin Dose Admin Sodium Chloride (NS Flush) 2 ml BID IV FLUSH 09/24/17 09:00 10/07/17 08:44 Ondansetron HCl (Zofran Inj) 4 mg Q6H PRN IVP NAUSEA OR VOMITING 09/23/17 23:15 10/06/17 13:53 Miscellaneous Information 1 Q361D XX 09/23/17 23:15 09/23/17 23:15 Acetaminophen/ Hydrocodone Bitart ([place] 5-325 Mg) 1 tab Q4H PRN PO pain > 4 09/24/17 00:30 10/06/17 13:54 Alprazolam (Xanax) 1 mg Q12HR PO 09/24/17 09:00 10/07/17 08:44 Fludrocortisone Acetate (Florinef) 0.1 mg DAILY PO 09/24/17 09:00 10/07/17 08:42 Pantoprazole Sodium (Protonix) 40 mg DAILY PO 09/24/17 09:00 10/07/17 08:43 Sevelamer Carbonate (Renvela) 2,400 mg TIDAC PO 09/24/17 08:00 10/04/17 12:33 Albuterol Sulfate (Proair Hfa Inh) 2 puff Q6H PRN INH sob/wheezing 09/24/17 00:30 09/30/17 14:08 Famotidine (Pepcid) 10 mg BID PO 09/24/17 21:00 10/07/17 08:42 Ertapenem 500 mg/ Sodium Chloride 50 ml @ 200 mls/hr Q24H IV 09/25/17 18:00 10/23/17 23:00 10/06/17 18:06 Hydrocortisone (Cortef) 15 mg DAILY PO 09/26/17 09:00 10/07/17 08:43 Hydrocortisone (Cortef) 5 mg DAILY@2000 PO 09/25/17 20:00 10/06/17 21:06 Sodium Chloride 1,000 ml @ 0 mls/hr Q0M PRN OTHER For Prime & Rinse Back 09/25/17 15:30 10/05/17 12:00 Epoetin Eddie (Epogen Inj) 10,000 units UNSCH PRN IV PUSH WITH DIALYSIS 09/25/17 15:30 10/05/17 12:00 Gelatin (Gelfoam 12 Mm/7 Mm Top) 1 foam UNSCH PRN TOP SEE LABEL COMMENTS 09/25/17 15:30 10/05/17 12:00 Losartan Potassium (Cozaar) 25 mg DAILY@0700 PO 09/27/17 07:00 10/06/17 06:20 Warfarin Sodium (Coumadin) 5 mg DAILY@1600 PO 09/28/17 16:00 Future Hold 10/01/17 17:50 Heparin Sodium (Porcine) (Heparin Inj) 5,000 units Q12HR SQ 10/05/17 13:00 Future Hold 10/06/17 21:06 Objective Remarks GENERAL: Middle aged male lying on left side in bed. SKIN: Warm and dry. HEAD: Normocephalic. EYES: No injection or drainage. NECK: Supple, trachea midline. CARDIOVASCULAR: +S1/S2 RESPIRATORY: anterior duarte clear GASTROINTESTINAL: Abdomen soft, non-tender, nondistended. EXTREMITIES: No cyanosis NEUROLOGICAL: awake but fatigued. normal speech. Assessment/Plan Problem List: (1) History of DVT (deep vein thrombosis) ICD Codes: Z86.718 - Personal history of other venous thrombosis and embolism Plan: -- history of systemic lupus, multiple DVTs, pulmonary embolism and SVC syndrome -- He has a non-occlusive thrombus in the right IJ left subclavian vein. -- CT angiogram showed a chronic occlusive thrombus in the right lower lobe with chronic thromboses extending into the right atrium. -- Ultrasound August 24 shows a small amount of non-occlusive thrombus in the cephalic vein on the left. -- Repeat ultrasound of the upper extremity on September 06 showed non-occlusive superficial thrombus in the left cephalic vein similar from previous. -- Recommend anticoagulant therapy with Coumadin as this can be reversed with his recent GI bleeding 09/27/17. Multiple VTE, new RUE DVT, h.o RA thrombus. Anticoagulant therapy seem to decrease L arm swelling. Dry dressing placed over wound. No bleeding. 09/30: awaiting CBC today. may need blood transfusion. continue anticoagulation for now. 10/04/17. Noted Hgb decrease to 6.4, s/p 2UPRBC hgb now 10.2 Coumadin reversed with Vitamin K 2.5mg INR was therapeutic since 10/02, no overt bleeding identified. Considered Hgb 6.4 lab error, hgb rise from 2UPRBC is higher than expected. Discussed continue monitoring for bleeding. Pt with competing needs, h/o GI bleed recently, need for anticoagulation. LUE DVT, SVC syndrome h/o recurrent VTE. Hold anticoagulant therapy for now. 10/05: EGD/colonoscopy delayed as patient was not prepped. will dose with SQ heparin to help avoid blood clot as his hgb has remained stable. 10/06: EGD/colonoscopy again delayed. continue heparin prophylaxis. will resume coumadin after EGD/Colonoscopy tomorrow. 10/07: EGD colonoscopy today. EGD showed acute gastritis and Duodenal inflammation. Colonoscopy showed large amount of stool and internal hemorrhoids. Patient was cleared to resume AC 6 hours after procedure. Assessment 47 y/o male with history of ESRD on dialysis, multiple DVTs, pulmonary embolism and SVC syndrome; hematology consulted for anticoagulant recommendations. Pt titrated on therapeutic dose of Coumadin when found to have hgb 6.4. Anticoagulation reversed. Plan 1. monitor CBC 2. resume heparin gtt without bolus tonight. 3. if no bleeding tonight, could resume Coumadin tomorrow. Attending Statement The exam, history, and the medical decision-making described in the above note were completed with the assistance of the mid-level provider. I reviewed and agree with the findings presented. I attest that I had a [id number] encounter with the patient on the same day, and personally performed and documented my assessment and findings in the medical record. 47 yoM with VTE s/ p GI procedure. Heparin gtt started today. Hematology service will continue to follow. Oly Bowling Oct 07, 2017 14:37 Estephania Queen MD Oct 07, 2017 23:50
[2017-10-07 15:21] LABS: HEMATOCRIT 30.5 % (39.0-51.0); MEAN CELL VOLUME 89.9 FL (80.0-100.0); MEAN CORPUSCULAR HEMOGLOBIN 29.6 PG (27.0-34.0); MEAN CORPUSCULAR HGB CONC 32.9 % (32.0-36.0); MEAN PLATELET VOLUME 7.7 FL (7.0-11.0); PLATELET COUNT 160 TH/MM3 (150-450); RED CELL DISTRIBUTION WIDTH 20.7 % (11.6-17.2); WHITE BLOOD COUNT 6.5 TH/MM3 (4.0-11.0)
[2017-10-07 15:33] LABS: INTERNATIONAL NORMALIZED RATIO 1.2 RATIO; PROTHROMBIN TIME - PATIENT 12.6 SEC (9.8-11.6)
--- NOTE | 2017-10-07 15:34 | HHI.NPPN ---
Subjective History of Present Illness 47-year-old male with history of multiple medical problems including end-stage renal disease, hypertension, DVTs, multiple failed dialysis access disease but now is a functional AV dialysis fistula who was recently hostile eyes at this institution noted to have persisting hypoglycemia relative hypotension who is referred to [facility] in [place] for further evaluation by endocrinology. Patient apparently diagnosed as having primary hypoaldosteronism and has been started on Florinef as well as hydrocortisone by mouth. Also underwent incision and drainage of an infected hematoma of the left upper extremity. Patient has been transferred back to this institution. Interval History Patient seen during dialysis today. No verbal complaints. Objective Data Data 10/07/17 10/08/17 19:00 07:00 Intake Total 400 ml Balance 400 ml Other 400 ml Vital Signs Date Time Temp Pulse Resp B/P (MAP) Pulse Ox O2 Delivery O2 Flow Rate FiO2 10/07/17 08:30 78 10/07/17 08:23 97.6 84 17 196/93 (127) 91 10/07/17 04:00 98.0 63 18 114/64 (81) 97 10/07/17 00:00 98.1 61 18 132/64 (86) 92 10/06/17 22:49 78 10/06/17 20:00 98.0 72 18 132/68 (89) 95 10/06/17 16:47 97.3 76 17 152/78 (102) 91 -: 10/07/17 1450 10/06/17 1310 Physical Exam General Appearance: Comfortable Eyes Eye Exam: Sclera White Pulmonary Resp Exam: Clear Bilaterally, Breath Sounds Equal, No Distress Cardiology CV Exam: Regular, Normal Sinus Rhythm Gastrointestinal/Abdomen GI Exam: Soft, Non-Tender Integumentary Skin Exam: Clear, Warm Extremeties Extremities Exam: No Edema Neurologic Neuro Exam: Alert, Awake, Speech Clear Psychiatric Psych Exam: Appropriate Responses Assessment/Plan Discussed Condition With: Patient Problem List: (1) ESRD (end stage renal disease) on dialysis ICD Codes: N18.6 - End stage renal disease; Z99.2 - Dependence on renal dialysis Status: Chronic Plan: Patient seen during dialysis. Fluid gain minimal since last treatment so ultrafiltration goal reduced.. Continue MWF Patient has been out of the outpatient dialysis center for greater than 30 days and technically has been discharge from the facility. The dialysis facility will need authorization from the patient's insurance company to accept the patient back to the facility. Patient cannot be discharged until outpatient dialysis insurance company provides authorization for a outpatient dialysis facility. If insurance company fails to provide authorization for his previous dialysis facility the patient will have to change facilities. Unfortunately I do not have privileges with another dialysis facility and the patient will have the change exterior designer if this occurs. Medications should be adjusted with the patient's end-stage renal disease when indicated. Avoid gadolinium. (2) Anemia of renal disease ICD Codes: D63.1 - Anemia in chronic kidney disease Status: Chronic Plan: Continue Procrit with HD Pending EGD/colonoscopy when INR improved. s/p transfusion on 10/03 (3) Primary adrenal insufficiency ICD Codes: E27.1 - Primary adrenocortical insufficiency Status: Chronic Plan: Continue Florinef as well as Cortef as recommended by endocrinology at [facility]. (4) History of DVT (deep vein thrombosis) ICD Codes: Z86.718 - Personal history of other venous thrombosis and embolism Plan: Mgmt as per heme (5) Esophageal varices determined by endoscopy ICD Codes: I85.00 - Esophageal varices without bleeding Status: Chronic (6) Abscess of left upper extremity ICD Codes: L02.414 - Cutaneous abscess of left upper limb Status: Chronic Plan: Status post drainage at [facility]. Review of ID note says to continue Invanz until 10/23/17 Clarence Merlos MD Oct 07, 2017 15:34
[2017-10-07 15:49] LABS: ALBUMIN 3.3 GM/DL (3.4-5.0); CALCIUM 8.8 MG/DL (8.5-10.1); PHOSPHORUS 6.8 MG/DL (2.5-4.9)
[2017-10-07 15:59] LABS: CREATININE 10.46 MG/DL (0.60-1.30)
[2017-10-07] MEDS: EPOETIN ALFA 10,000 UNITS/ML VIAL IV PUSH PRN (17:22)
[2017-10-07] MEDS: GELATIN 12 MM/7 MM FOAM TOP PRN (17:22)
[2017-10-07] MEDS: ERTAPENEM IV SCH (19:51)
[2017-10-07] MEDS: SODIUM CHLORIDE 0.9% IV SCH (19:51)
[2017-10-07 20:24] LABS: INTERNATIONAL NORMALIZED RATIO 1.2 RATIO; PROTHROMBIN TIME - PATIENT 12.5 SEC (9.8-11.6)
[2017-10-07 21:00] VITALS: BP 127/59; PULSE 85; RESP 19; TEMP 97.9; O2SAT 97
[2017-10-07] MEDS: HEPARIN-D5W 25,000 U/250 ML 250 ML IV PRN (21:17)
[2017-10-07] MEDS: ACETAMINOPHEN/HYDROcodone 325 MG/5 MG TAB PO PRN (21:23)
[2017-10-08] VITALS (8 sets, daily range): BP systolic 107–142; BP diastolic 56–71; PULSE 69–86; RESP 17–19; TEMP 97.9–98.3; O2SAT 92–99
[2017-10-08 03:43] LABS: HEMATOCRIT 30.6 % (39.0-51.0); HEMOGLOBIN 9.9 GM/DL (13.0-17.0); MEAN CELL VOLUME 90.9 FL (80.0-100.0); MEAN CORPUSCULAR HEMOGLOBIN 29.4 PG (27.0-34.0); MEAN CORPUSCULAR HGB CONC 32.4 % (32.0-36.0); MEAN PLATELET VOLUME 7.9 FL (7.0-11.0); PLATELET COUNT 152 TH/MM3 (150-450); RED BLOOD COUNT 3.37 MIL/MM3 (4.50-5.90); WHITE BLOOD COUNT 5.5 TH/MM3 (4.0-11.0)
[2017-10-08 03:59] LABS: INTERNATIONAL NORMALIZED RATIO 1.3 RATIO; PROTHROMBIN TIME - PATIENT 13.5 SEC (9.8-11.6)
[2017-10-08] MEDS: LOSARTAN 25 MG TAB PO SCH (06:05)
[2017-10-08] MEDS: FLUDROCORTISONE ACETATE 0.1 MG TAB PO SCH (08:43)
[2017-10-08] MEDS: SODIUM CHLORIDE 0.9% FLUSH 10 ML FLUSH IV FLUSH SCH ×2 (08:43→21:46)
[2017-10-08] MEDS: HYDROCORTISONE 10 MG TAB PO SCH ×2 (08:43→21:46)
[2017-10-08] MEDS: ALPRAZolam 1 MG TAB PO SCH ×2 (08:43→21:45)
[2017-10-08] MEDS: FAMOTIDINE 20 MG TAB PO SCH ×2 (08:43→21:00)
[2017-10-08] MEDS: PANTOPRAZOLE SOD 40 MG DELAYED RELEASE TAB PO SCH (08:43)
[2017-10-08] MEDS: SEVELAMER CARBONATE 800 MG TAB PO SCH ×3 (08:43→16:47)
--- NOTE | 2017-10-08 09:57 | HHI.PR ---
Subjective Remarks Nursing denies any deterioration since last night. Patient did get his endoscopy and colonoscopy yesterday; endoscopy showed a number of large varices which were banded. Did have some severe gastritis. Patient himself is tolerating by mouth intake well this morning. He denies having any further bloody or tarry stools yesterday. Objective Vital Signs Date Time Temp Pulse Resp B/P (MAP) Pulse Ox O2 Delivery O2 Flow Rate FiO2 10/08/17 09:36 82 10/08/17 08:20 86 18 142/66 (91) 92 10/08/17 04:00 98.2 69 17 118/65 (82) 99 10/08/17 00:15 98.0 80 18 125/60 (81) 98 10/07/17 21:00 97.9 85 19 127/59 (81) 97 I/O 10/07/17 10/07/17 10/07/17 10/08/17 10/08/17 10/08/17 07:00 15:00 23:00 07:00 15:00 23:00 Intake Total 400 ml 500 ml 600 ml Output Total 1000 ml 0 ml Balance 400 ml -500 ml 600 ml Intake Oral 450 ml 600 ml IV Total 50 ml Other 400 ml Output Urine Total 0 ml 0 ml Hemodialysis 1000 ml # Voids 0 # Bowel Movements 0 0 Result Diagram: 10/08/17 0325 10/07/17 1450 Objective Remarks Middle-aged black male, sitting in bed, awake, no acute distress - eating breakfast Abdomen is soft, nontender, nondistended Unlabored breathing A/P Assessment and Plan Mr. Mercado is a 47 y/o male with a history of end-stage renal disease on hemodialysis, SLE, CAD, COPD/asthma, multiple DVTs, multiple PEs, bilateral BKA , and anxiety who was transferred back to [place] after undergoing endocrinology evaluation at [facility] in [place] from 09/14 until 09/23 following a lengthy hospitalization here from 08/12-09/14. The patient was experiencing hypoglycemia during his hospitalization here that was persistent despite treatment with D10W. He was found to have primary adrenal insufficiency , a right UE DVT, and a left arm abscess in AC s/p I and D now - all while at [facility]. He is transferred back to [facility] for continued medical management. He is currently still inpatient due to a suspected GI bleed. Acute Anemia underlying Anemia of CKD S/P Upper GI bleed with esophageal varices now status post banding - h/h holding stable - Continue Protonix - To avoid NSAIDs - Colonoscopy showing hemorrhoids RUE DVT right lower lobe thrombus SVC thrombosis right atrial thrombus History of multiple DVTs/PE - heme following; see above - INR 1.5 3 days ago; hematology started heparin drip post procedure yesterday, I will start Coumadin dosing today to bridge to therapeutic levels Klebsiella Sepsis- Left AC abscess s/p I and D- wound edges clean- with decrease swelling - wound care nurse ff - appreciate recommendations - continue Ivanz 500 mg qday till 10/23 per ID - infectious disease specialist ff-per ID till 10/23 - repeat blood cultures negative Primary Adrenal Insufficiency - ACTH elevated per records from [facility] - Florinef 0.1 mg p.o. qday - Hydrocortisone 15 mg q a.m. and 5 mg q pm - will need outpatient endocrinology f/u - good BS readings Hypertension- cozaar daily ESRD on HD - last dialysis at [facility] on 09/23 -Dr. Merlos ff for HD arrangement - monitor renal function Chronic anxiety - continue Xanax 1 mg p.o. BID SLE positive per records review - not on any group home medication for SLE Bilateral BKA - PT consult per patient was in the course of evaluation for prosthesis when acute medical problems came up DVT prophylaxis - SCDs/TEDs PT/OT -for deconditioning Dietitian ff- on Nephro cupplements CM for DC planning- outpt IV abx arranged. Now patient is medically stable in regards to GI bleed- Still working on outpatient dialysis has to be set up since his older dialysis clinic is now rejecting his insurance. Benjamín Elliott MD Oct 08, 2017 09:57
[2017-10-08 12:24] LABS: INTERNATIONAL NORMALIZED RATIO 1.4 RATIO; PROTHROMBIN TIME - PATIENT 14.3 SEC (9.8-11.6)
--- NOTE | 2017-10-08 12:37 | HHI.GIFU ---
Subjective Remarks Patient is sleeping when I walked in, he awakes to me calling his name. Denies nausea, vomiting, abd pain, or rectal bleeding. ([place]) Objective Vitals I&O Vital Signs Date Time Temp Pulse Resp B/P (MAP) Pulse Ox O2 Delivery O2 Flow Rate FiO2 10/08/17 11:50 98.3 78 18 107/71 (83) 94 10/08/17 09:36 82 10/08/17 08:20 86 18 142/66 (91) 92 10/08/17 04:00 98.2 69 17 118/65 (82) 99 10/08/17 00:15 98.0 80 18 125/60 (81) 98 10/07/17 21:00 97.9 85 19 127/59 (81) 97 I/O 10/07/17 10/07/17 10/07/17 10/08/17 10/08/17 10/08/17 07:00 15:00 23:00 07:00 15:00 23:00 Intake Total 400 ml 500 ml 600 ml Output Total 1000 ml 0 ml Balance 400 ml -500 ml 600 ml Intake Oral 450 ml 600 ml IV Total 50 ml Other 400 ml Output Urine Total 0 ml 0 ml Hemodialysis 1000 ml # Voids 0 # Bowel Movements 0 0 Laboratory Laboratory Tests Test 10/07/17 14:50 10/07/17 20:00 10/08/17 03:25 10/08/17 09:26 White Blood Count 6.5 5.5 Red Blood Count 3.40 3.37 Hemoglobin 10.0 9.9 Hematocrit 30.5 30.6 Mean Corpuscular Volume 89.9 90.9 Mean Corpuscular Hemoglobin 29.6 29.4 Mean Corpuscular Hemoglobin Concent 32.9 32.4 Red Cell Distribution Width 20.7 21.0 Platelet Count 160 152 Mean Platelet Volume 7.7 7.9 Prothrombin Time 12.6 12.5 13.5 14.3 Prothromb Time International Ratio 1.2 1.2 1.3 1.4 Blood Urea Nitrogen 62 Creatinine 10.46 Random Glucose 86 Albumin 3.3 Calcium Level 8.8 Phosphorus Level 6.8 Sodium Level 134 Potassium Level 3.9 Chloride Level 94 Carbon Dioxide Level 27.0 Anion Gap 13 Estimat Glomerular Filtration Rate 6 Activated Partial Thromboplast Time 27.0 84.0 83.2 Date/Time Source Procedure Growth Status 09/26/17 15:12 Blood Line Aerobic Blood Culture - Final NO GROWTH IN 5 DAYS Complete 09/26/17 15:12 Blood Line Anaerobic Blood Culture - Final NO GROWTH IN 5 DAYS Complete Physical Exam HEENT: Normocephalic; atraumatic CHEST: Even/unlabored CARDIAC: RRR ABDOMEN: Soft, nondistended, nontender; bowel sounds active x 4 EXTREMITIES: No clubbing, cyanosis, or edema. SKIN: No rash; no jaundice. VENDING MECHANIC: No focal deficits; alert and oriented times three. ([place]) Assessment and Plan Plan ASSESSMENT - Anemia- normocytic, normochromic- likely multifactorial. Dialysis pt, receives dialysis M,W,F. Receives epoetin james. H/H . yesterday, no labs from today. Has received 1 U PRBC on Oct 02. Was previously on Coumadin, reversed with Vit K. Received 2 U FFP Oct 03. No evidence of active GI bleeding at this time. Denies vomiting, blood in stool , or black, tarry stool. Has been placed on SQ Heparin bridge for LUE DVT, SVC syndrome until procedure. Pt eating noodle soup at time of my exam even though diet is ordered as clear liquid. He is aware that he needs to be only having clear liquids today. To receive prep at 1600. EGD with band ligation of varices (08/13/17) --> Bleeding esophageal varices, with active bleeding identified, 6 bands applied to control the bleeding. Gastritis in the stomach. Multiple large erosions in the duodenal bulb and 2nd part of the duodenum. 10/08/17- S/P EGD/colonoscopy on 10/07/17 showed Significant amount of stool was present throughout the entire examined colon Retroflexed views revealed internal hemorrhoids, repeat in 3 yrs EGD showed here were 6 columns of large varices in the mid esophagus and distal esophagus. The varices were not bleeding. There was evidence of a nicholson spot sign.There was acute gastritis in the entire examined stomach;biopsy was performed Duodenal inflammation was found in the duodenal bulb and 2nd part duodenum, bx pending PLAN - Advance diet - Await bx - EGD in 4 weeks - Colonoscopy in 3 yrs - Cont. Protonix - Monitor H/H - Transfuse as needed - f/u with GI upon discharge - Supportive care - Further recommendations to follow This patient has been seen and examined by myself and Dr. Rodrigeuz and this note is written on his behalf ([place]) Physician Comments Seen and examined, plan as above. Stable from GI point of view, RIA. Will sign off today, please notify us if needed. (Chon Rodriguez MD) [place] Oct 08, 2017 12:37 Chon Rodriguez MD Oct 08, 2017 12:48
[2017-10-08] MEDS: HEPARIN-D5W 25,000 U/250 ML 250 ML IV PRN (13:35)
--- NOTE | 2017-10-08 15:31 | PD.ONC.PN ---
Subjective Subjective Remarks Mr. Mercado is resting comfortably in bed. He denies any bleeding. He is looking forward to going home. His mother is at bedside. Objective Data Date Time Temp Pulse Resp B/P (MAP) Pulse Ox O2 Delivery O2 Flow Rate FiO2 10/08/17 12:30 72 10/08/17 11:50 98.3 78 18 107/71 (83) 94 10/08/17 09:36 82 10/08/17 08:20 86 18 142/66 (91) 92 10/08/17 04:00 98.2 69 17 118/65 (82) 99 10/08/17 00:15 98.0 80 18 125/60 (81) 98 10/07/17 21:00 97.9 85 19 127/59 (81) 97 10/08/17 10/08/17 10/08/17 07:00 15:00 23:00 Intake Total 600 ml 250 ml Output Total 0 ml Balance 600 ml 250 ml Result Diagram: 10/08/17 0325 10/07/17 1450 Laboratory Results Laboratory Tests Test 10/07/17 20:00 10/08/17 03:25 10/08/17 09:26 Prothrombin Time 12.5 SEC 13.5 SEC 14.3 SEC Prothromb Time International Ratio 1.2 RATIO 1.3 RATIO 1.4 RATIO Activated Partial Thromboplast Time 27.0 SEC 84.0 SEC 83.2 SEC White Blood Count 5.5 TH/MM3 Red Blood Count 3.37 MIL/MM3 Hemoglobin 9.9 GM/DL Hematocrit 30.6 % Mean Corpuscular Volume 90.9 FL Mean Corpuscular Hemoglobin 29.4 PG Mean Corpuscular Hemoglobin Concent 32.4 % Red Cell Distribution Width 21.0 % Platelet Count 152 TH/MM3 Mean Platelet Volume 7.9 FL Administered Medications Medications (Trade) Dose Ordered Sig/Nohelia Route PRN Reason Start Time Stop Time Status Last Admin Dose Admin Sodium Chloride (NS Flush) 2 ml BID IV FLUSH 09/24/17 09:00 10/08/17 08:43 Ondansetron HCl (Zofran Inj) 4 mg Q6H PRN IVP NAUSEA OR VOMITING 09/23/17 23:15 10/06/17 13:53 Miscellaneous Information 1 Q361D XX 09/23/17 23:15 09/23/17 23:15 Acetaminophen/ Hydrocodone Bitart (Mifflin 5-325 Mg) 1 tab Q4H PRN PO pain > 4 09/24/17 00:30 10/07/17 21:23 Alprazolam (Xanax) 1 mg Q12HR PO 09/24/17 09:00 10/08/17 08:43 Fludrocortisone Acetate (Florinef) 0.1 mg DAILY PO 09/24/17 09:00 10/08/17 08:43 Pantoprazole Sodium (Protonix) 40 mg DAILY PO 09/24/17 09:00 10/08/17 08:43 Sevelamer Carbonate (Renvela) 2,400 mg TIDAC PO 09/24/17 08:00 10/08/17 08:43 Albuterol Sulfate (Proair Hfa Inh) 2 puff Q6H PRN INH sob/wheezing 09/24/17 00:30 09/30/17 14:08 Famotidine (Pepcid) 10 mg BID PO 09/24/17 21:00 10/08/17 08:43 Ertapenem 500 mg/ Sodium Chloride 50 ml @ 200 mls/hr Q24H IV 09/25/17 18:00 10/23/17 23:00 10/07/17 19:51 Hydrocortisone (Cortef) 15 mg DAILY PO 09/26/17 09:00 10/08/17 08:43 Hydrocortisone (Cortef) 5 mg DAILY@2000 PO 09/25/17 20:00 10/07/17 21:22 Sodium Chloride 1,000 ml @ 0 mls/hr Q0M PRN OTHER For Prime & Rinse Back 09/25/17 15:30 10/05/17 12:00 Ondansetron HCl (Zofran Inj) 4 mg UNSCH PRN IV PUSH WITH DIALYSIS 09/25/17 15:30 10/07/17 17:22 Epoetin Eddie (Epogen Inj) 10,000 units UNSCH PRN IV PUSH WITH DIALYSIS 09/25/17 15:30 10/07/17 17:22 Gelatin (Gelfoam 12 Mm/7 Mm Top) 1 foam UNSCH PRN TOP SEE LABEL COMMENTS 09/25/17 15:30 10/07/17 17:22 Losartan Potassium (Cozaar) 25 mg DAILY@0700 PO 09/27/17 07:00 10/06/17 06:20 Warfarin Sodium (Coumadin) 5 mg DAILY@1600 PO 09/28/17 16:00 Future hold 10/01/17 17:50 Heparin Sodium/ Dextrose 250 ml @ 18 mls/hr TITRATE PRN IV Coagulation Management 10/07/17 21:00 10/08/17 13:35 Objective Remarks GENERAL: chronically ill appearing patient in no distress SKIN: Warm and dry. HEAD: Normocephalic. EYES: No scleral icterus. No injection or drainage. RESPIRATORY: No accessory muscle use. GASTROINTESTINAL: Abdomen soft, non-tender, nondistended. EXTREMITIES: No cyanosis, or edema. MUSCULOSKELETAL: Adequate muscle tone. NEUROLOGICAL: No obvious focal deficit. Awake, alert, and oriented x3. PSYCHIATRIC: Appropriate mood and affect; insight and judgment normal. Assessment/Plan Problem List: (1) History of DVT (deep vein thrombosis) ICD Codes: Z86.718 - Personal history of other venous thrombosis and embolism Plan: -- history of systemic lupus, multiple DVTs, pulmonary embolism and SVC syndrome -- He has a non-occlusive thrombus in the right IJ left subclavian vein. -- CT angiogram showed a chronic occlusive thrombus in the right lower lobe with chronic thromboses extending into the right atrium. -- Ultrasound August 24 shows a small amount of non-occlusive thrombus in the cephalic vein on the left. -- Repeat ultrasound of the upper extremity on September 06 showed non-occlusive superficial thrombus in the left cephalic vein similar from previous. -- Recommend anticoagulant therapy with Coumadin as this can be reversed with his recent GI bleeding 09/27/17. Multiple VTE, new RUE DVT, h.o RA thrombus. Anticoagulant therapy seem to decrease L arm swelling. Dry dressing placed over wound. No bleeding. 09/30: awaiting CBC today. may need blood transfusion. continue anticoagulation for now. 10/04/17. Noted Hgb decrease to 6.4, s/p 2UPRBC hgb now 10.2 Coumadin reversed with Vitamin K 2.5mg INR was therapeutic since 10/02, no overt bleeding identified. Considered Hgb 6.4 lab error, hgb rise from 2UPRBC is higher than expected. Discussed continue monitoring for bleeding. Pt with competing needs, h/o GI bleed recently, need for anticoagulation. LUE DVT, SVC syndrome h/o recurrent VTE. Hold anticoagulant therapy for now. 10/05: EGD/colonoscopy delayed as patient was not prepped. will dose with SQ heparin to help avoid blood clot as his hgb has remained stable. 10/06: EGD/colonoscopy again delayed. continue heparin prophylaxis. will resume coumadin after EGD/Colonoscopy tomorrow. 10/07: EGD colonoscopy today. EGD showed acute gastritis and Duodenal inflammation. Colonoscopy showed large amount of stool and internal hemorrhoids. Patient was cleared to resume AC 6 hours after procedure. Assessment 47 y/o male with history of ESRD on dialysis, multiple DVTs, pulmonary embolism and SVC syndrome; hematology consulted for anticoagulant recommendations. Pt titrated on therapeutic dose of Coumadin when found to have hgb 6.4. Anticoagulation reversed. Plan 1. VTE: on heparin gtt with bridge to warfarin. Goal INR 2-3. Continue to monitor CBC 2. Anemia: due to GIB, with ESRD contributing 3. Esophageal varicies: not bleeding on EGD, no banding performed. Will follow up with GI team on hospital discharge. Hematology service will continue to follow while inpatient. Estephania Queen MD Oct 08, 2017 15:31
[2017-10-08] MEDS: WARFARIN SOD 5 MG TAB PO SCH (16:48)
[2017-10-08] MEDS: SODIUM CHLORIDE 0.9% IV SCH (16:54)
[2017-10-08] MEDS: ERTAPENEM IV SCH (16:54)
[2017-10-08] MEDS: ACETAMINOPHEN/HYDROcodone 325 MG/5 MG TAB PO PRN (21:46)
[2017-10-09] VITALS (7 sets, daily range): BP systolic 115–136; BP diastolic 60–75; PULSE 65–88; RESP 16–21; TEMP 97.5–98.9; O2SAT 92–98
[2017-10-09] MEDS: LOSARTAN 25 MG TAB PO SCH (06:07)
[2017-10-09 07:10] LABS: INTERNATIONAL NORMALIZED RATIO 1.4 RATIO; PROTHROMBIN TIME - PATIENT 13.7 SEC (9.8-11.6)
--- NOTE | 2017-10-09 11:42 | HHI.NPPN ---
Subjective History of Present Illness 47-year-old male with history of multiple medical problems including end-stage renal disease, hypertension, DVTs, multiple failed dialysis access disease but now is a functional AV dialysis fistula who was recently hostile eyes at this institution noted to have persisting hypoglycemia relative hypotension who is referred to [facility] in [place] for further evaluation by endocrinology. Patient apparently diagnosed as having primary hypoaldosteronism and has been started on Florinef as well as hydrocortisone by mouth. Also underwent incision and drainage of an infected hematoma of the left upper extremity. Patient has been transferred back to this institution. Interval History Patient seen during dialysis today. Tolerating treatment well. Fluid goal discussed with dialysis nurse. Objective Data Data Vital Signs Date Time Temp Pulse Resp B/P (MAP) Pulse Ox O2 Delivery O2 Flow Rate FiO2 10/09/17 08:00 97.5 80 16 132/72 (92) 93 10/09/17 04:15 98.0 65 21 115/75 (88) 98 10/09/17 00:30 98.1 88 20 120/70 (87) 97 10/08/17 20:45 97.9 82 19 120/70 (87) 98 10/08/17 16:00 98.3 84 18 119/56 (77) 92 10/08/17 12:30 72 10/08/17 11:50 98.3 78 18 107/71 (83) 94 -: 10/08/17 0325 10/07/17 1450 Physical Exam General Appearance: Comfortable Eyes Eye Exam: Sclera White Pulmonary Resp Exam: Clear Bilaterally, Breath Sounds Equal, No Distress Cardiology CV Exam: Regular, Normal Sinus Rhythm Gastrointestinal/Abdomen GI Exam: Soft, Non-Tender Integumentary Skin Exam: Clear, Warm Extremeties Extremities Exam: No Edema Neurologic Neuro Exam: Alert, Awake, Speech Clear Psychiatric Psych Exam: Appropriate Responses Assessment/Plan Discussed Condition With: Patient Problem List: (1) ESRD (end stage renal disease) on dialysis ICD Codes: N18.6 - End stage renal disease; Z99.2 - Dependence on renal dialysis Status: Chronic Plan: Patient seen during dialysis. Continue MWF Patient has been out of the outpatient dialysis center for greater than 30 days and technically has been discharge from the facility. The dialysis facility will need authorization from the patient's insurance company to accept the patient back to the facility. Patient cannot be discharged until outpatient dialysis insurance company provides authorization for a outpatient dialysis facility. If insurance company fails to provide authorization for his previous dialysis facility the patient will have to change facilities. Unfortunately I do not have privileges with another dialysis facility locally and the patient will have the change supervisor travel trailer if this occurs as discussed with him. Medications should be adjusted with the patient's end-stage renal disease when indicated. Avoid gadolinium. (2) Anemia of renal disease ICD Codes: D63.1 - Anemia in chronic kidney disease Status: Chronic Plan: Continue Procrit with HD Pending EGD/colonoscopy when INR improved. s/p transfusion on 10/03 (3) Primary adrenal insufficiency ICD Codes: E27.1 - Primary adrenocortical insufficiency Status: Chronic Plan: Continue Florinef as well as Cortef as recommended by endocrinology at [facility]. (4) History of DVT (deep vein thrombosis) ICD Codes: Z86.718 - Personal history of other venous thrombosis and embolism Plan: Mgmt as per heme (5) Esophageal varices determined by endoscopy ICD Codes: I85.00 - Esophageal varices without bleeding Status: Chronic (6) Abscess of left upper extremity ICD Codes: L02.414 - Cutaneous abscess of left upper limb Status: Chronic Plan: Status post drainage at [facility]. Review of ID note says to continue Invanz until 10/23/17 Clarence Merlos MD Oct 09, 2017 11:42
[2017-10-09] MEDS: ACETAMINOPHEN/HYDROcodone 325 MG/5 MG TAB PO PRN ×3 (13:23→21:07)
[2017-10-09] MEDS: FAMOTIDINE 20 MG TAB PO SCH ×2 (13:24→20:58)
[2017-10-09] MEDS: FLUDROCORTISONE ACETATE 0.1 MG TAB PO SCH (13:25)
[2017-10-09] MEDS: ALPRAZolam 1 MG TAB PO SCH ×2 (13:25→20:58)
[2017-10-09] MEDS: PANTOPRAZOLE SOD 40 MG DELAYED RELEASE TAB PO SCH (13:25)
[2017-10-09] MEDS: HYDROCORTISONE 10 MG TAB PO SCH ×2 (13:25→20:58)
[2017-10-09] MEDS: SEVELAMER CARBONATE 800 MG TAB PO SCH ×3 (13:27→17:01)
[2017-10-09] MEDS: SODIUM CHLORIDE 0.9% FLUSH 10 ML FLUSH IV FLUSH SCH ×2 (13:27→20:58)
--- NOTE | 2017-10-09 15:06 | HHI.PR ---
Subjective Remarks Nursing denies any deterioration since last night. Patient denies having any bloody bowel movements. He reports of having a mild odynophagia which we think was secondary to the endoscopy procedure. Denies any nausea/vomiting. Objective Vital Signs Date Time Temp Pulse Resp B/P (MAP) Pulse Ox O2 Delivery O2 Flow Rate FiO2 10/09/17 08:00 97.5 80 16 132/72 (92) 93 10/09/17 04:15 98.0 65 21 115/75 (88) 98 10/09/17 00:30 98.1 88 20 120/70 (87) 97 10/08/17 20:45 97.9 82 19 120/70 (87) 98 10/08/17 16:00 98.3 84 18 119/56 (77) 92 I/O 10/08/17 10/08/17 10/08/17 10/09/17 10/09/17 10/09/17 07:00 15:00 23:00 07:00 15:00 23:00 Intake Total 600 ml 250 ml 875 ml 400 ml Output Total 0 ml 0 ml 0 ml 2000 ml Balance 600 ml 250 ml 875 ml 400 ml -2000 ml Intake Oral 600 ml 825 ml 400 ml IV Total 250 ml 50 ml Output Urine Total 0 ml 0 ml 0 ml Hemodialysis 2000 ml # Bowel Movements 0 0 0 Result Diagram: 10/08/17 0325 10/07/17 1450 Objective Remarks Middle-aged black male, sitting in bed, awake, no acute distress - eating breakfast Abdomen is soft, nondistended Unlabored breathing A/P Assessment and Plan Mr. Mercado is a 47 y/o male with a history of end-stage renal disease on hemodialysis, SLE, CAD, COPD/asthma, multiple DVTs, multiple PEs, bilateral BKA , and anxiety who was transferred back to [place] after undergoing endocrinology evaluation at [facility] in [place] from 09/14 until 09/23 following a lengthy hospitalization here from 08/12-09/14. The patient was experiencing hypoglycemia during his hospitalization here that was persistent despite treatment with D10W. He was found to have primary adrenal insufficiency , a right UE DVT, and a left arm abscess in AC s/p I and D now - all while at [facility]. He is transferred back to [facility] for continued medical management. He is currently still inpatient due to a suspected GI bleed. Odynophagia - 2/2 endoscopy - should be self-limited, expect to get better with time, we'll transition to a soft mechanical diet with some cepacol until pt can tolerate more advanced diet Acute Anemia underlying Anemia of CKD S/P Upper GI bleed with esophageal varices now status post banding - h/h holding stable - Continue Protonix - To avoid NSAIDs - Colonoscopy showing hemorrhoids RUE DVT right lower lobe thrombus SVC thrombosis right atrial thrombus History of multiple DVTs/PE - heme following; see above - bridging with coumadin, monitoring INR Klebsiella Sepsis- Left AC abscess s/p I and D- wound edges clean- with decrease swelling - wound care nurse ff - appreciate recommendations - continue Ivanz 500 mg qday till 10/23 per ID - infectious disease specialist ff-per ID till 10/23 - repeat blood cultures negative Primary Adrenal Insufficiency - ACTH elevated per records from [facility] [place] 0.1 mg p.o. qday - Hydrocortisone 15 mg q a.m. and 5 mg q pm - will need outpatient endocrinology f/u - good BS readings Hypertension- cozaar daily ESRD on HD - Chronic anxiety - continue Xanax 1 mg p.o. BID SLE positive per records review - not on any senior care medication for SLE Bilateral BKA - PT consult per patient was in the course of evaluation for prosthesis when acute medical problems came up DVT prophylaxis - SCDs/TEDs PT/OT -for deconditioning Discharge disposition. Now patient is medically stable in regards to GI bleed. Outpt IV abx arranged. CM Still working on outpatient dialysis arrangegment. Will need to have close f/u with endocrinology as outpt for his primary adrenal insufficiency as he does require daily steroids. Benjamín Elliott MD Oct 09, 2017 15:06
[2017-10-09] MEDS ORDERED: WARFARIN SOD 2 MG TAB PO ONE (16:00)
[2017-10-09] MEDS: WARFARIN SOD 5 MG TAB PO SCH (16:24)
[2017-10-09] MEDS: SODIUM CHLORIDE 0.9% IV SCH (18:06)
[2017-10-09] MEDS: ERTAPENEM IV SCH (18:06)
[2017-10-09] MEDS ORDERED: BENZOCAINE-MENTHOL (SUGAR FREE) 15 MG-3.6 MG LOZENGE BUCCAL PRN (18:15)
[2017-10-09] MEDS ORDERED: LIDOCAINE VISCOUS 2% SOLN 15 ML UDC SWISH-SWAL ONE (18:15)
[2017-10-10] VITALS (10 sets, daily range): BP systolic 140–155; BP diastolic 65–85; PULSE 42–81; RESP 16–18; TEMP 97.5–98.4; O2SAT 91–96
[2017-10-10] MEDS: LOSARTAN 25 MG TAB PO SCH (06:06)
[2017-10-10 06:33] LABS: HEMATOCRIT 29.7 % (39.0-51.0); HEMOGLOBIN 9.5 GM/DL (13.0-17.0); MEAN CELL VOLUME 91.4 FL (80.0-100.0); MEAN CORPUSCULAR HEMOGLOBIN 29.3 PG (27.0-34.0); MEAN CORPUSCULAR HGB CONC 32.1 % (32.0-36.0); MEAN PLATELET VOLUME 8.2 FL (7.0-11.0); PLATELET COUNT 156 TH/MM3 (150-450); RED BLOOD COUNT 3.25 MIL/MM3 (4.50-5.90); RED CELL DISTRIBUTION WIDTH 21.2 % (11.6-17.2); WHITE BLOOD COUNT 4.9 TH/MM3 (4.0-11.0)
[2017-10-10 06:48] LABS: INTERNATIONAL NORMALIZED RATIO 1.6 RATIO; PROTHROMBIN TIME - PATIENT 16.1 SEC (9.8-11.6)
[2017-10-10] MEDS: ALPRAZolam 1 MG TAB PO SCH ×2 (08:13→21:43)
[2017-10-10] MEDS: PANTOPRAZOLE SOD 40 MG DELAYED RELEASE TAB PO SCH (08:13)
[2017-10-10] MEDS: HYDROCORTISONE 10 MG TAB PO SCH ×2 (08:14→21:42)
[2017-10-10] MEDS: FLUDROCORTISONE ACETATE 0.1 MG TAB PO SCH (08:14)
[2017-10-10] MEDS: FAMOTIDINE 20 MG TAB PO SCH ×2 (08:15→21:41)
[2017-10-10] MEDS: SEVELAMER CARBONATE 800 MG TAB PO SCH ×3 (08:15→17:30)
[2017-10-10] MEDS: SODIUM CHLORIDE 0.9% FLUSH 10 ML FLUSH IV FLUSH SCH ×2 (08:15→21:44)
[2017-10-10] MEDS: HEPARIN-D5W 25,000 U/250 ML 250 ML IV PRN (08:20)
--- NOTE | 2017-10-10 08:57 | HHI.PR ---
Subjective Remarks Did not have a BM. No bleeding. No abd pain . Feels tired. No fever or chills. No n/v/d/c. Objective Vitals Vital Signs Date Time Temp Pulse Resp B/P (MAP) Pulse Ox O2 Delivery O2 Flow Rate FiO2 10/10/17 07:56 98.1 65 16 146/70 (95) 95 10/10/17 05:00 97.8 66 18 147/69 (95) 95 10/10/17 01:00 64 10/10/17 00:40 98.4 68 17 155/65 (95) 96 10/09/17 20:30 98.9 76 17 136/60 (85) 96 10/09/17 20:30 73 10/09/17 16:26 98.3 78 18 125/63 (83) 92 10/09/17 16:16 71 I/O 10/09/17 10/09/17 10/09/17 10/10/17 10/10/17 10/10/17 07:00 15:00 23:00 07:00 15:00 23:00 Intake Total 400 ml 240 ml Output Total 0 ml 2000 ml Balance 400 ml -2000 ml 240 ml Intake Oral 400 ml 240 ml Output Urine Total 0 ml Hemodialysis 2000 ml # Bowel Movements 0 Result Diagram: 10/10/17 0605 10/07/17 1450 Objective Remarks GENERAL: Middle-aged black male, sitting in bed, awake, no acute distress - eating breakfast. CARDIOVASCULAR: Regular rate and rhythm. RESPIRATORY: No accessory muscle use. Clear to auscultation. Breath sounds equal bilaterally. GASTROINTESTINAL: Abdomen soft, non-tender, nondistended. Hepatic and splenic margins not palpable. MUSCULOSKELETAL: Extremities without clubbing, cyanosis, or edema. No obvious deformities. NEUROLOGICAL: Awake and alert. No obvious cranial nerve deficits. Motor grossly within normal limits. Five out of 5 muscle strength in the arms and legs. Normal speech. PSYCHIATRIC: Appropriate mood and affect; insight and judgment normal. A/P Problem List: (1) Primary adrenal insufficiency ICD Code: E27.1 - Primary adrenocortical insufficiency Status: Chronic Assessment and Plan Mr. Mercado is a 47 y/o male with a history of end-stage renal disease on hemodialysis, SLE, CAD, COPD/asthma, multiple DVTs, multiple PEs, bilateral BKA , and anxiety who was transferred back to [place] after undergoing endocrinology evaluation at [facility] in [place] from 09/14 until 09/23 following a lengthy hospitalization here from 08/12-09/14. The patient was experiencing hypoglycemia during his hospitalization here that was persistent despite treatment with D10W. He was found to have primary adrenal insufficiency , a right UE DVT, and a left arm abscess in AC s/p I and D now - all while at [facility]. He is transferred back to [facility] for continued medical management. He is currently still inpatient due to a suspected GI bleed. Odynophagia - 2/2 endoscopy - should be self-limited, expect to get better with time, we'll transition to a soft mechanical diet with some cepacol until pt can tolerate more advanced diet Acute Anemia underlying Anemia of CKD S/P Upper GI bleed with esophageal varices now status post banding - h/h holding stable - Continue Protonix - To avoid NSAIDs - Colonoscopy showing hemorrhoids RUE DVT right lower lobe thrombus SVC thrombosis right atrial thrombus History of multiple DVTs/PE - heme following; see above - bridging with coumadin, monitoring INR Klebsiella Sepsis- Left AC abscess s/p I and D- wound edges clean- with decrease swelling - wound care nurse ff - appreciate recommendations - continue Ivanz 500 mg qday till 10/23 per ID - infectious disease specialist ff-per ID till 10/23 - repeat blood cultures negative Primary Adrenal Insufficiency - ACTH elevated per records from [facility] - Florinef 0.1 mg p.o. qday - Hydrocortisone 15 mg q a.m. and 5 mg q pm - will need outpatient endocrinology f/u - good BS readings Hypertension- cozaar daily ESRD on HD -- Chronic anxiety - continue Xanax 1 mg p.o. BID SLE positive per records review - not on any assisted medication for SLE Bilateral BKA - PT consult per patient was in the course of evaluation for prosthesis when acute medical problems came up DVT prophylaxis - SCDs/TEDs PT/OT -for deconditioning Discharge disposition. Now patient is medically stable in regards to GI bleed. Outpt IV abx arranged. CM Still working on outpatient dialysis arrangements. Will need to have close f/u with endocrinology as outpt for his primary adrenal insufficiency as he does require daily steroids. Yasmin Hernandez MD Oct 10, 2017 08:57
--- NOTE | 2017-10-10 09:31 | PD.ONC.PN ---
Subjective Subjective Remarks Afebrile overnight. Tolerating heparin gtt. Denies bleeding. HOping to go home tomorrow. Objective Data Date Time Temp Pulse Resp B/P (MAP) Pulse Ox O2 Delivery O2 Flow Rate FiO2 10/10/17 07:56 98.1 65 16 146/70 (95) 95 10/10/17 05:00 97.8 66 18 147/69 (95) 95 10/10/17 01:00 64 10/10/17 00:40 98.4 68 17 155/65 (95) 96 10/09/17 20:30 98.9 76 17 136/60 (85) 96 10/09/17 20:30 73 10/09/17 16:26 98.3 78 18 125/63 (83) 92 10/09/17 16:16 71 10/10/17 10/10/17 10/10/17 07:00 15:00 23:00 Intake Total 240 ml Balance 240 ml Result Diagram: 10/10/17 0605 10/07/17 1450 Laboratory Results Laboratory Tests Test 10/10/17 06:05 White Blood Count 4.9 TH/MM3 Red Blood Count 3.25 MIL/MM3 Hemoglobin 9.5 GM/DL Hematocrit 29.7 % Mean Corpuscular Volume 91.4 FL Mean Corpuscular Hemoglobin 29.3 PG Mean Corpuscular Hemoglobin Concent 32.1 % Red Cell Distribution Width 21.2 % Platelet Count 156 TH/MM3 Mean Platelet Volume 8.2 FL Prothrombin Time 16.1 SEC Prothromb Time International Ratio 1.6 RATIO Activated Partial Thromboplast Time 98.7 SEC Administered Medications Medications (Trade) Dose Ordered Sig/Nohelia Route PRN Reason Start Time Stop Time Status Last Admin Dose Admin Sodium Chloride (NS Flush) 2 ml BID IV FLUSH 09/24/17 09:00 10/10/17 08:15 Ondansetron HCl (Zofran Inj) 4 mg Q6H PRN IVP NAUSEA OR VOMITING 09/23/17 23:15 10/06/17 13:53 Miscellaneous Information 1 Q361D XX 09/23/17 23:15 09/23/17 23:15 Acetaminophen/ Hydrocodone Bitart ([place] 5-325 Mg) 1 tab Q4H PRN PO pain > 4 09/24/17 00:30 10/09/17 21:07 Alprazolam (Xanax) 1 mg Q12HR PO 09/24/17 09:00 10/10/17 08:13 Fludrocortisone Acetate (Florinef) 0.1 mg DAILY PO 09/24/17 09:00 10/10/17 08:14 Pantoprazole Sodium (Protonix) 40 mg DAILY PO 09/24/17 09:00 10/10/17 08:13 Sevelamer Carbonate (Renvela) 2,400 mg TIDAC PO 09/24/17 08:00 10/10/17 08:15 Albuterol Sulfate (Proair Hfa Inh) 2 puff Q6H PRN INH sob/wheezing 09/24/17 00:30 09/30/17 14:08 Famotidine (Pepcid) 10 mg BID PO 09/24/17 21:00 10/10/17 08:15 Ertapenem 500 mg/ Sodium Chloride 50 ml @ 200 mls/hr Q24H IV 09/25/17 18:00 10/23/17 23:00 10/09/17 18:06 Hydrocortisone (Cortef) 15 mg DAILY PO 09/26/17 09:00 10/10/17 08:14 Hydrocortisone (Cortef) 5 mg DAILY@2000 PO 09/25/17 20:00 10/09/17 20:58 Sodium Chloride 1,000 ml @ 0 mls/hr Q0M PRN OTHER For Prime & Rinse Back 09/25/17 15:30 10/05/17 12:00 Ondansetron HCl (Zofran Inj) 4 mg UNSCH PRN IV PUSH WITH DIALYSIS 09/25/17 15:30 10/07/17 17:22 Epoetin Eddie (Epogen Inj) 10,000 units UNSCH PRN IV PUSH WITH DIALYSIS 09/25/17 15:30 10/07/17 17:22 Gelatin (Gelfoam 12 Mm/7 Mm Top) 1 foam UNSCH PRN TOP SEE LABEL COMMENTS 09/25/17 15:30 10/07/17 17:22 Losartan Potassium (Cozaar) 25 mg DAILY@0700 PO 09/27/17 07:00 10/10/17 06:06 Warfarin Sodium (Coumadin) 5 mg DAILY@1600 PO 09/28/17 16:00 Future hold 10/09/17 16:24 Heparin Sodium/ Dextrose 250 ml @ 18 mls/hr TITRATE PRN IV Coagulation Management 10/07/17 21:00 10/10/17 08:20 Objective Remarks GENERAL: Middle aged male supine in bed. SKIN: Warm and dry. HEAD: Normocephalic. EYES: No injection or drainage. NECK: Supple, trachea midline. CARDIOVASCULAR: +S1/S2 RESPIRATORY: anterior duarte clear GASTROINTESTINAL: Abdomen soft, non-tender, nondistended. EXTREMITIES: No cyanosis NEUROLOGICAL: awake and alert, normal speech. Assessment/Plan Problem List: (1) History of DVT (deep vein thrombosis) ICD Codes: Z86.718 - Personal history of other venous thrombosis and embolism Plan: -- history of systemic lupus, multiple DVTs, pulmonary embolism and SVC syndrome -- He has a non-occlusive thrombus in the right IJ left subclavian vein. -- CT angiogram showed a chronic occlusive thrombus in the right lower lobe with chronic thromboses extending into the right atrium. -- Ultrasound August 24 shows a small amount of non-occlusive thrombus in the cephalic vein on the left. -- Repeat ultrasound of the upper extremity on September 06 showed non-occlusive superficial thrombus in the left cephalic vein similar from previous. -- Recommend anticoagulant therapy with Coumadin as this can be reversed with his recent GI bleeding 09/27/17. Multiple VTE, new RUE DVT, h.o RA thrombus. Anticoagulant therapy seem to decrease L arm swelling. Dry dressing placed over wound. No bleeding. 09/30: awaiting CBC today. may need blood transfusion. continue anticoagulation for now. 10/04/17. Noted Hgb decrease to 6.4, s/p 2UPRBC hgb now 10.2 Coumadin reversed with Vitamin K 2.5mg INR was therapeutic since 10/02, no overt bleeding identified. Considered Hgb 6.4 lab error, hgb rise from 2UPRBC is higher than expected. Discussed continue monitoring for bleeding. Pt with competing needs, h/o GI bleed recently, need for anticoagulation. LUE DVT, SVC syndrome h/o recurrent VTE. Hold anticoagulant therapy for now. 10/05: EGD/colonoscopy delayed as patient was not prepped. will dose with SQ heparin to help avoid blood clot as his hgb has remained stable. 10/06: EGD/colonoscopy again delayed. continue heparin prophylaxis. will resume coumadin after EGD/Colonoscopy tomorrow. 10/07: EGD colonoscopy today. EGD showed acute gastritis and Duodenal inflammation. Colonoscopy showed large amount of stool and internal hemorrhoids. Patient was cleared to resume AC 6 hours after procedure. 10/10/17: continues on heparin gtt to coumadin. INR 1.6 today Assessment 47 y/o male with history of ESRD on dialysis, multiple DVTs, pulmonary embolism and SVC syndrome; hematology consulted for anticoagulant recommendations. Pt titrated on therapeutic dose of Coumadin when found to have hgb 6.4. Anticoagulation reversed. Plan 1. continue heparin gtt to Coumadin 2. monitor CBC Attending Statement The exam, history, and the medical decision-making described in the above note were completed with the assistance of the mid-level provider. I reviewed and agree with the findings presented. I attest that I had a [id number] encounter with the patient on the same day, and personally performed and documented my assessment and findings in the medical record. 47 yoF with ESRD on HD and VTE curently transitioning from heparin to warfarin. No bleeding. Oly Bowling Oct 10, 2017 09:31 Estephania Queen MD Oct 11, 2017 07:05
[2017-10-10] MEDS: WARFARIN SOD 5 MG TAB PO SCH (15:08)
[2017-10-10] MEDS: ERTAPENEM IV SCH (17:30)
[2017-10-10] MEDS: SODIUM CHLORIDE 0.9% IV SCH (17:30)
[2017-10-10] MEDS: ACETAMINOPHEN/HYDROcodone 325 MG/5 MG TAB PO PRN (21:43)
[2017-10-11] VITALS (8 sets, daily range): BP systolic 131–175; BP diastolic 61–86; PULSE 63–83; RESP 18; TEMP 96.5–98.1; O2SAT 92–96
[2017-10-11] MEDS: LOSARTAN 25 MG TAB PO SCH (06:22)
[2017-10-11] MEDS: ACETAMINOPHEN/HYDROcodone 325 MG/5 MG TAB PO PRN (06:22)
[2017-10-11 06:59] LABS: HEMATOCRIT 29.3 % (39.0-51.0); HEMOGLOBIN 9.5 GM/DL (13.0-17.0); MEAN CELL VOLUME 91.5 FL (80.0-100.0); MEAN CORPUSCULAR HEMOGLOBIN 29.7 PG (27.0-34.0); MEAN CORPUSCULAR HGB CONC 32.5 % (32.0-36.0); MEAN PLATELET VOLUME 8.4 FL (7.0-11.0); PLATELET COUNT 156 TH/MM3 (150-450); RED BLOOD COUNT 3.21 MIL/MM3 (4.50-5.90); RED CELL DISTRIBUTION WIDTH 20.7 % (11.6-17.2); WHITE BLOOD COUNT 4.1 TH/MM3 (4.0-11.0)
[2017-10-11 07:57] LABS: INTERNATIONAL NORMALIZED RATIO 1.9 RATIO; PROTHROMBIN TIME - PATIENT 19.5 SEC (9.8-11.6)
[2017-10-11] MEDS: SEVELAMER CARBONATE 800 MG TAB PO SCH ×3 (08:23→15:54)
[2017-10-11] MEDS: FAMOTIDINE 20 MG TAB PO SCH ×2 (08:23→20:34)
[2017-10-11] MEDS: PANTOPRAZOLE SOD 40 MG DELAYED RELEASE TAB PO SCH (08:23)
[2017-10-11] MEDS: FLUDROCORTISONE ACETATE 0.1 MG TAB PO SCH (08:23)
[2017-10-11] MEDS: ALPRAZolam 1 MG TAB PO SCH ×2 (08:24→20:34)
[2017-10-11] MEDS: HYDROCORTISONE 10 MG TAB PO SCH ×2 (08:24→20:34)
[2017-10-11] MEDS: SODIUM CHLORIDE 0.9% FLUSH 10 ML FLUSH IV FLUSH SCH ×2 (08:25→20:39)
--- NOTE | 2017-10-11 09:54 | HHI.NPPN ---
Subjective History of Present Illness 47-year-old male with history of multiple medical problems including end-stage renal disease, hypertension, DVTs, multiple failed dialysis access disease but now is a functional AV dialysis fistula who was recently hostile eyes at this institution noted to have persisting hypoglycemia relative hypotension who is referred to [facility] in [place] for further evaluation by endocrinology. Patient apparently diagnosed as having primary hypoaldosteronism and has been started on Florinef as well as hydrocortisone by mouth. Also underwent incision and drainage of an infected hematoma of the left upper extremity. Patient has been transferred back to this institution. Interval History Pt feeling OK. Says he's just ready to get out of the hospital. (Gladis Cole) Review of Systems General Constitutional: Fatigue (Gladis Cole) Objective Data Data Vital Signs Date Time Temp Pulse Resp B/P (MAP) Pulse Ox O2 Delivery O2 Flow Rate FiO2 10/11/17 08:56 68 10/11/17 08:29 97.3 68 18 164/80 (108) 94 10/11/17 04:00 63 10/11/17 04:00 98.1 74 18 135/61 (85) 96 10/11/17 00:00 97.0 83 18 131/75 (93) 94 10/10/17 20:00 81 10/10/17 20:00 97.8 78 18 140/77 (98) 91 10/10/17 17:08 97.5 72 18 141/85 (103) 95 10/10/17 16:35 71 10/10/17 12:26 62 10/10/17 11:54 97.9 61 16 143/66 (91) 95 (Gladis Cole) -: 10/11/17 0639 10/07/17 1450 Medication Review Current Medications Medications (Trade) Dose Ordered Sig/Nohelia Route Start Time Stop Time Status Last Admin (NS Flush) 2 ml UNSCH PRN IV FLUSH 09/23/17 23:15 (NS Flush) 2 ml BID IV FLUSH 09/24/17 09:00 10/11/17 08:25 (Tylenol) 650 mg Q4H PRN PO 09/23/17 23:15 (Zofran Inj) 4 mg Q6H PRN IVP 09/23/17 23:15 10/06/17 13:53 (Narcan Inj) 0.4 mg UNSCH PRN IV PUSH 09/23/17 23:15 Miscellaneous Information 1 Q361D XX 09/23/17 23:15 09/23/17 23:15 ([place] 5-325 Mg) 1 tab Q4H PRN PO 09/24/17 00:30 10/11/17 06:22 (Xanax) 1 mg Q12HR PO 09/24/17 09:00 10/11/17 08:24 (Florinef) 0.1 mg DAILY PO 09/24/17 09:00 10/11/17 08:23 (Protonix) 40 mg DAILY PO 09/24/17 09:00 10/11/17 08:23 (Renvela) 2,400 mg TIDAC PO 09/24/17 08:00 10/11/17 08:23 (Proair Hfa Inh) 2 puff Q6H PRN INH 09/24/17 00:30 09/30/17 14:08 (Pill Splitter) 1 ea UNSCH PRN OTHER 09/24/17 00:45 (Pepcid) 10 mg BID PO 09/24/17 21:00 10/11/17 08:23 Ertapenem 500 mg/ Sodium Chloride 50 ml @ 200 mls/hr Q24H IV 09/25/17 18:00 10/23/17 23:00 10/10/17 17:30 (Cortef) 15 mg DAILY PO 09/26/17 09:00 10/11/17 08:24 (Cortef) 5 mg DAILY@2000 PO 09/25/17 20:00 10/10/17 21:42 Sodium Chloride 1,000 ml @ 0 mls/hr Q0M PRN OTHER 09/25/17 15:30 10/05/17 12:00 Sodium Chloride 1,000 ml @ 200 mls/hr Q5H PRN IV 09/25/17 15:30 Sodium Chloride 1,000 ml @ 0 mls/hr Q0M PRN OTHER 09/25/17 15:30 (Mannitol Inj) 12.5 gm UNSCH PRN IV 09/25/17 15:30 Albumin Human 100 ml @ 60 mls/hr UNSCH PRN IV 09/25/17 15:30 (NS Flush) 5 ml UNSCH PRN IV FLUSH 09/25/17 15:30 (Zofran Inj) 4 mg UNSCH PRN IV PUSH 09/25/17 15:30 10/07/17 17:22 (Tylenol) 650 mg UNSCH PRN PO 09/25/17 15:30 (Benadryl) 25 mg UNSCH PRN PO 09/25/17 15:30 (Nitrostat Sl) 0.4 mg UNSCH PRN SL 09/25/17 15:30 (Catapres) 0.1 mg UNSCH PRN PO 09/25/17 15:30 (Epogen Inj) 10,000 units UNSCH PRN IV PUSH 09/25/17 15:30 10/07/17 17:22 (Gelfoam 12 Mm/7 Mm Top) 1 foam UNSCH PRN TOP 09/25/17 15:30 10/07/17 17:22 (Cozaar) 25 mg DAILY@0700 PO 09/27/17 07:00 10/11/17 06:22 (Coumadin) 5 mg DAILY@1600 PO 09/28/17 16:00 Future hold 10/10/17 15:08 (Tylenol) 650 mg Q4H PRN PO 09/28/17 12:00 (Benadryl) 25 mg Q4H PRN PO 09/28/17 12:00 Heparin Sodium/ Dextrose 250 ml @ 18 mls/hr TITRATE PRN IV 10/07/17 21:00 10/10/17 08:20 Pharmacy Profile Note 0 ml @ 0 mls/hr UNSCH OTHER 10/08/17 10:00 (Cepacol Extra Margarita (Sugar Free)) 1 lozenge Q4HR PRN BUCCAL 10/09/17 18:15 (Gladis Cole) Physical Exam General Appearance: Comfortable (Gladis Cole) Eyes Eye Exam: Sclera White (Gladis Cole) Pulmonary Resp Exam: Clear Bilaterally, Breath Sounds Equal, No Distress (Gladis Cole) Cardiology CV Exam: Regular, Normal Sinus Rhythm (Gladis Cloe) Gastrointestinal/Abdomen GI Exam: Soft, Non-Tender (Gladis Cole) Integumentary Skin Exam: Clear, Warm (Gladis Cole) Extremeties Extremities Exam: No Edema (Gladis Cole) Neurologic Neuro Exam: Alert, Awake, Speech Clear (Gladis Cole) Psychiatric Psych Exam: Appropriate Responses (Gladis Cole) Assessment/Plan Discussed Condition With: Patient Problem List: (1) ESRD (end stage renal disease) on dialysis ICD Codes: N18.6 - End stage renal disease; Z99.2 - Dependence on renal dialysis Status: Chronic Plan: Continue HD MWF Patient has been out of the outpatient dialysis center for greater than 30 days and technically has been discharge from the facility. The dialysis facility will need authorization from the patient's insurance company to accept the patient back to the facility. Patient cannot be discharged until outpatient dialysis insurance company provides authorization for a outpatient dialysis facility. If insurance company fails to provide authorization for his previous dialysis facility the patient will have to change facilities. Unfortunately I do not have privileges with another dialysis facility locally and the patient will have the change french comber if this occurs as discussed with him. Medications should be adjusted with the patient's end-stage renal disease when indicated. Avoid gadolinium. (2) Anemia of renal disease ICD Codes: D63.1 - Anemia in chronic kidney disease Status: Chronic Plan: Continue Procrit with HD (3) Primary adrenal insufficiency ICD Codes: E27.1 - Primary adrenocortical insufficiency Status: Chronic Plan: Continue Florinef as well as Cortef as recommended by endocrinology at [facility]. (4) History of DVT (deep vein thrombosis) ICD Codes: Z86.718 - Personal history of other venous thrombosis and embolism Plan: Mgmt as per heme (5) Esophageal varices determined by endoscopy ICD Codes: I85.00 - Esophageal varices without bleeding Status: Chronic (6) Abscess of left upper extremity ICD Codes: L02.414 - Cutaneous abscess of left upper limb Status: Chronic Plan: Status post drainage at [facility]. Review of ID note says to continue Invanz until 10/23/17 (Gladis Cole) Plan The patient is stable for discharge from a renal point of view once the outpatient excepting dialysis facility indicates that has a chair available for outpatient dialysis. Patient will be seen intermittently at this point in time. (Clarence Merlos MD) Gladis Cole Oct 11, 2017 09:54 Clarence Merlos MD Oct 12, 2017 15:43
[2017-10-11] MEDS: HEPARIN-D5W 25,000 U/250 ML 250 ML IV PRN (13:08)
[2017-10-11] MEDS: WARFARIN SOD 5 MG TAB PO SCH (15:53)
--- NOTE | 2017-10-11 16:42 | HHI.PR ---
Subjective Remarks The patient was seen earlier today. He is in the chair sleepy says he feels tired. No fever or chills no nausea or vomiting no diarrhea or constipation. INR is 1.9 today. Objective Vitals Vital Signs Date Time Temp Pulse Resp B/P (MAP) Pulse Ox O2 Delivery O2 Flow Rate FiO2 10/11/17 16:22 96.5 66 18 175/86 (115) 94 10/11/17 12:51 97.4 73 18 162/78 (106) 94 10/11/17 08:56 68 10/11/17 08:29 97.3 68 18 164/80 (108) 94 10/11/17 04:00 63 10/11/17 04:00 98.1 74 18 135/61 (85) 96 10/11/17 00:00 97.0 83 18 131/75 (93) 94 10/10/17 20:00 81 10/10/17 20:00 97.8 78 18 140/77 (98) 91 10/10/17 17:08 97.5 72 18 141/85 (103) 95 I/O 10/10/17 10/10/17 10/10/17 10/11/17 10/11/17 10/11/17 07:00 15:00 23:00 07:00 15:00 23:00 Intake Total 240 ml 480 ml 147.2 ml 240 ml Balance 240 ml 480 ml 147.2 ml 240 ml Intake Oral 240 ml 480 ml 240 ml IV Total 147.2 ml # Voids 3 Result Diagram: 10/11/17 0639 10/07/17 1450 Objective Remarks GENERAL: Middle-aged black male, sitting in bed, awake, no acute distress - eating breakfast. CARDIOVASCULAR: Regular rate and rhythm. RESPIRATORY: No accessory muscle use. Clear to auscultation. Breath sounds equal bilaterally. GASTROINTESTINAL: Abdomen soft, non-tender, nondistended. Hepatic and splenic margins not palpable. MUSCULOSKELETAL: Extremities without clubbing, cyanosis, or edema. No obvious deformities. NEUROLOGICAL: Awake and alert. No obvious cranial nerve deficits. Motor grossly within normal limits. Five out of 5 muscle strength in the arms and legs. Normal speech. PSYCHIATRIC: Appropriate mood and affect; insight and judgment normal. A/P Problem List: (1) Primary adrenal insufficiency ICD Code: E27.1 - Primary adrenocortical insufficiency Status: Chronic Assessment and Plan Mr. Mercado is a 47 y/o male with a history of end-stage renal disease on hemodialysis, SLE, CAD, COPD/asthma, multiple DVTs, multiple PEs, bilateral BKA , and anxiety who was transferred back to [place] after undergoing endocrinology evaluation at [facility] in [place] from 09/14 until 09/23 following a lengthy hospitalization here from 08/12-09/14. The patient was experiencing hypoglycemia during his hospitalization here that was persistent despite treatment with D10W. He was found to have primary adrenal insufficiency , a right UE DVT, and a left arm abscess in AC s/p I and D now - all while at [facility]. He is transferred [place] [facility] [place] medical management. He is currently still inpatient due to a suspected GI bleed. Odynophagia - 2/2 endoscopy - should be self-limited, expect to get better with time, we'll transition to a soft mechanical diet with some cepacol until pt can tolerate more advanced diet Acute Anemia underlying Anemia of CKD S/P Upper GI bleed with esophageal varices now status post banding - h/h holding stable - Continue Protonix - To avoid NSAIDs - Colonoscopy showing hemorrhoids RUE DVT right lower lobe thrombus SVC thrombosis right atrial thrombus History of multiple DVTs/PE - heme following; see above - bridging with coumadin, monitoring INR Klebsiella Sepsis- Left AC abscess s/p I and D- wound edges clean- with decrease swelling - wound care nurse ff - appreciate recommendations - continue Ivanz 500 mg qday till 10/23 per ID - infectious disease specialist ff-per ID till 10/23 - repeat blood cultures negative Primary Adrenal Insufficiency - ACTH elevated per records from [facility] - Florinef 0.1 mg p.o. qday - Hydrocortisone 15 mg q a.m. and 5 mg q pm - will need outpatient endocrinology f/u - good BS readings Hypertension- cozaar daily ESRD on HD M-W- Chronic anxiety - continue Xanax 1 mg p.o. BID SLE positive per records review - not on any chcf medication for SLE Bilateral BKA - PT consult per patient was in the course of evaluation for prosthesis when acute medical problems came up DVT prophylaxis - SCDs/TEDs PT/OT -for deconditioning Discharge disposition. Now patient is medically stable in regards to GI bleed. Outpt IV abx arranged. CM Still working on outpatient dialysis arrangements. Will need to have close f/u with endocrinology as outpt for his primary adrenal insufficiency as he does require daily steroids. Follow-up INR to therapeutic range of 2-3 Yasmin Hernandez MD Oct 11, 2017 16:42
[2017-10-11] MEDS: SODIUM CHLORIDE 0.9% IV SCH (17:57)
[2017-10-11] MEDS: ERTAPENEM IV SCH (17:57)
[2017-10-12] VITALS: BP 150/65; PULSE 57; RESP 20; TEMP 98.2; O2SAT 94
[2017-10-12 00:08] VITALS: PULSE 79
[2017-10-12 04:00] VITALS: BP 114/71; PULSE 77; RESP 18; TEMP 97; O2SAT 98
[2017-10-12] MEDS: LOSARTAN 25 MG TAB PO SCH (06:02)
[2017-10-12 06:26] LABS: AUTOMATED NEUTROPHIL # 4.7 TH/MM3 (1.8-7.7); BASOPHIL # 0.1 TH/MM3 (0-0.2); EOSINOPHIL # 0.2 TH/MM3 (0-0.4); EOSINOPHIL % 2.5 % (0.0-4.0); HEMATOCRIT 29.3 % (39.0-51.0); HEMOGLOBIN 9.5 GM/DL (13.0-17.0); LYMPH % 12.1 % (9.0-44.0); LYMPHOCYTE # 0.7 TH/MM3 (1.0-4.8); MEAN CELL VOLUME 91.4 FL (80.0-100.0); MEAN CORPUSCULAR HEMOGLOBIN 29.7 PG (27.0-34.0); MEAN CORPUSCULAR HGB CONC 32.5 % (32.0-36.0); MEAN PLATELET VOLUME 8.1 FL (7.0-11.0); MONO % 7.7 % (0.0-8.0); MONOCYTE # 0.5 TH/MM3 (0-0.9); NEUT % 76.7 % (16.0-70.0); PLATELET COUNT 178 TH/MM3 (150-450); RED BLOOD COUNT 3.21 MIL/MM3 (4.50-5.90); RED CELL DISTRIBUTION WIDTH 20.2 % (11.6-17.2); WHITE BLOOD COUNT 6.1 TH/MM3 (4.0-11.0)
[2017-10-12 07:32] VITALS: BP 145/72; PULSE 73; RESP 19; TEMP 97.9; O2SAT 95
[2017-10-12] MEDS: SEVELAMER CARBONATE 800 MG TAB PO SCH ×3 (08:54→18:05)
[2017-10-12] MEDS: PANTOPRAZOLE SOD 40 MG DELAYED RELEASE TAB PO SCH (08:55)
[2017-10-12] MEDS: FAMOTIDINE 20 MG TAB PO SCH ×2 (08:55→21:02)
[2017-10-12] MEDS: HYDROCORTISONE 10 MG TAB PO SCH ×2 (08:55→21:06)
[2017-10-12] MEDS: FLUDROCORTISONE ACETATE 0.1 MG TAB PO SCH (08:55)
[2017-10-12] MEDS: ALPRAZolam 1 MG TAB PO SCH ×2 (08:55→21:03)
[2017-10-12] MEDS: SODIUM CHLORIDE 0.9% FLUSH 10 ML FLUSH IV FLUSH SCH ×2 (08:55→21:02)
[2017-10-12 10:16] LABS: INTERNATIONAL NORMALIZED RATIO 2.4 RATIO; PROTHROMBIN TIME - PATIENT 24.4 SEC (9.8-11.6)
[2017-10-12 11:38] VITALS: BP 186/94; PULSE 72; RESP 20; TEMP 97.6; O2SAT 98
[2017-10-12] MEDS ORDERED: WARFARIN SOD 4 MG TAB PO SCH (16:00)
--- NOTE | 2017-10-12 16:04 | HHI.PR ---
Subjective Remarks In the chair. Appears tired. No n/v/d/c. No fever or chills. Says she wants to go home. CM is following for DC plan needs HD at DC INR is therapeutic will DC heparin drip. Objective Vitals Vital Signs Date Time Temp Pulse Resp B/P (MAP) Pulse Ox O2 Delivery O2 Flow Rate FiO2 10/12/17 11:38 97.6 72 20 186/94 (124) 98 10/12/17 07:32 97.9 73 19 145/72 (96) 95 10/12/17 04:00 97.0 77 18 114/71 (85) 98 10/12/17 00:08 79 10/12/17 00:00 98.2 57 20 150/65 (93) 94 10/11/17 20:00 97.5 68 18 143/65 (91) 92 10/11/17 20:00 70 10/11/17 16:22 96.5 66 18 175/86 (115) 94 I/O 10/11/17 10/11/17 10/11/17 10/12/17 10/12/17 10/12/17 07:00 15:00 23:00 07:00 15:00 23:00 Intake Total 240 ml 50 ml 114 ml Balance 240 ml 50 ml 114 ml Intake Oral 240 ml IV Total 50 ml 114 ml # Voids 3 Result Diagram: 10/12/17 0602 Objective Remarks GENERAL: Middle-aged black male, sitting in bed, awake, no acute distress - eating breakfast. CARDIOVASCULAR: Regular rate and rhythm. RESPIRATORY: No accessory muscle use. Clear to auscultation. Breath sounds equal bilaterally. GASTROINTESTINAL: Abdomen soft, non-tender, nondistended. Hepatic and splenic margins not palpable. MUSCULOSKELETAL: Extremities without clubbing, cyanosis, or edema. No obvious deformities. NEUROLOGICAL: Awake and alert. No obvious cranial nerve deficits. Motor grossly within normal limits. Five out of 5 muscle strength in the arms and legs. Normal speech. PSYCHIATRIC: Appropriate mood and affect; insight and judgment normal. A/P Problem List: (1) Primary adrenal insufficiency ICD Code: E27.1 - Primary adrenocortical insufficiency Status: Chronic Assessment and Plan Mr. Mercado is a 47 y/o male with a history of end-stage renal disease on hemodialysis, SLE, CAD, COPD/asthma, multiple DVTs, multiple PEs, bilateral BKA , and anxiety who was transferred back to [place] after undergoing endocrinology evaluation at [facility] in [place] from 09/14 until 09/23 following a lengthy hospitalization here from 08/12-09/14. The patient was experiencing hypoglycemia during his hospitalization here that was persistent despite treatment with D10W. He was found to have primary adrenal insufficiency , a right UE DVT, and a left arm abscess in AC s/p I and D now - all while at [facility]. He is transferred back to [facility] for continued medical management. He is currently still inpatient due to a suspected GI bleed. Odynophagia - 2/2 endoscopy - should be self-limited, expect to get better with time, we'll transition to a soft mechanical diet with some cepacol until pt can tolerate more advanced diet Acute Anemia underlying Anemia of CKD S/P Upper GI bleed with esophageal varices now status post banding - h/h holding stable - Continue Protonix - To avoid NSAIDs - Colonoscopy showing hemorrhoids RUE DVT right lower lobe thrombus SVC thrombosis right atrial thrombus History of multiple DVTs/PE - heme following; see above - bridging with coumadin, monitoring INR INR is therapeutic will DC heparin drip, monitor INR Klebsiella Sepsis- Left AC abscess s/p I and D- wound edges clean- with decrease swelling - wound care nurse ff - appreciate recommendations - continue Ivanz 500 mg qday till 10/23 per ID - infectious disease specialist ff-per ID till 10/23 - repeat blood cultures negative Primary Adrenal Insufficiency - ACTH elevated per records from [facility] - [place] 0.1 mg p.o. qday - Hydrocortisone 15 mg q a.m. and 5 mg q pm - will need outpatient endocrinology f/u - good BS readings Hypertension- cozaar daily ESRD on HD -- Chronic anxiety - continue Xanax 1 mg p.o. BID SLE positive per records review - not on any terminal superintendent medication for SLE Bilateral BKA - PT consult per patient was in the course of evaluation for prosthesis when acute medical problems came up DVT prophylaxis - SCDs/TEDs PT/OT -for deconditioning Discharge disposition. Now patient is medically stable in regards to GI bleed. Outpt IV abx arranged. CM Still working on outpatient dialysis arrangements. Will need to have close f/u with endocrinology as outpt for his primary adrenal insufficiency as he does require daily steroids. Follow-up INR to therapeutic range of 2-3. DC heparin 10/12/16 as therapeutic INR. Continue to monitor INR Yasmin Hernandez MD Oct 12, 2017 16:04
--- NOTE | 2017-10-12 16:15 | HHI.NPPN ---
Subjective History of Present Illness 47-year-old male with history of multiple medical problems including end-stage renal disease, hypertension, DVTs, multiple failed dialysis access disease but now is a functional AV dialysis fistula who was recently hostile eyes at this institution noted to have persisting hypoglycemia relative hypotension who is referred to [facility] in [place] for further evaluation by endocrinology. Patient apparently diagnosed as having primary hypoaldosteronism and has been started on Florinef as well as hydrocortisone by mouth. Also underwent incision and drainage of an infected hematoma of the left upper extremity. Patient has been transferred back to this institution. Interval History Patient seen during dialysis today. No verbal complaints. Fluid goal approximately 4000 MLS. Review of Systems General Constitutional: Fatigue Objective Data Data Vital Signs Date Time Temp Pulse Resp B/P (MAP) Pulse Ox O2 Delivery O2 Flow Rate FiO2 10/12/17 11:38 97.6 72 20 186/94 (124) 98 10/12/17 07:32 97.9 73 19 145/72 (96) 95 10/12/17 04:00 97.0 77 18 114/71 (85) 98 10/12/17 00:08 79 10/12/17 00:00 98.2 57 20 150/65 (93) 94 10/11/17 20:00 97.5 68 18 143/65 (91) 92 10/11/17 20:00 70 10/11/17 16:22 96.5 66 18 175/86 (115) 94 -: 10/12/17 0602 Physical Exam General Appearance: Comfortable Eyes Eye Exam: Sclera White Pulmonary Resp Exam: Clear Bilaterally, Breath Sounds Equal, No Distress Cardiology CV Exam: Regular, Normal Sinus Rhythm Gastrointestinal/Abdomen GI Exam: Soft, Non-Tender Integumentary Skin Exam: Clear, Warm Extremeties Extremities Exam: No Edema Neurologic Neuro Exam: Alert, Awake, Speech Clear Psychiatric Psych Exam: Appropriate Responses Assessment/Plan Discussed Condition With: Patient Problem List: (1) ESRD (end stage renal disease) on dialysis ICD Codes: N18.6 - End stage renal disease; Z99.2 - Dependence on renal dialysis Status: Chronic Plan: Continue HD MWF Patient has been out of the outpatient dialysis center for greater than 30 days and technically has been discharge from the facility. The dialysis facility will need authorization from the patient's insurance company to accept the patient back to the facility. Patient cannot be discharged until outpatient dialysis insurance company provides authorization for a outpatient dialysis facility. If insurance company fails to provide authorization for his previous dialysis facility the patient will have to change facilities. Apparently the insurance companies indicating that the patient will have to go to a [facility]. Unfortunately I do not have privileges with that dialysis facility and the patient will have the change architectural inspector if this occurs as discussed with him. Medications should be adjusted with the patient's end-stage renal disease when indicated. Avoid gadolinium. (2) Anemia of renal disease ICD Codes: D63.1 - Anemia in chronic kidney disease Status: Chronic Plan: Continue Procrit with HD (3) Primary adrenal insufficiency ICD Codes: E27.1 - Primary adrenocortical insufficiency Status: Chronic Plan: Continue Florinef as well as Cortef as recommended by endocrinology at [facility]. (4) History of DVT (deep vein thrombosis) ICD Codes: Z86.718 - Personal history of other venous thrombosis and embolism Plan: Mgmt as per heme (5) Esophageal varices determined by endoscopy ICD Codes: I85.00 - Esophageal varices without bleeding Status: Chronic (6) Abscess of left upper extremity ICD Codes: L02.414 - Cutaneous abscess of left upper limb Status: Chronic Plan: Status post drainage at [facility]. Review of ID note says to continue Invanz until 10/23/17 Plan The patient is stable for discharge from a renal point of view once the outpatient excepting dialysis facility indicates that has a chair available for outpatient dialysis. Patient will be seen intermittently at this point in time. Clarence Merlos MD Oct 12, 2017 16:15
[2017-10-12] MEDS: SODIUM CHLORIDE 0.9% IV SCH (18:17)
[2017-10-12] MEDS: ERTAPENEM IV SCH (18:17)
[2017-10-12 20:00] VITALS: BP 128/63; PULSE 84; RESP 22; TEMP 97.6; O2SAT 96
[2017-10-13 00:08] VITALS: BP 112/56; PULSE 84; RESP 18; TEMP 98.9; O2SAT 94
[2017-10-13 04:00] VITALS: BP 121/74; PULSE 77; RESP 20; TEMP 98.5; O2SAT 95
[2017-10-13] MEDS: LOSARTAN 25 MG TAB PO SCH (06:00)
[2017-10-13 06:30] LABS: HEMATOCRIT 30.7 % (39.0-51.0); HEMOGLOBIN 10.2 GM/DL (13.0-17.0); MEAN CELL VOLUME 90.8 FL (80.0-100.0); MEAN CORPUSCULAR HGB CONC 33.1 % (32.0-36.0); MEAN PLATELET VOLUME 7.9 FL (7.0-11.0); PLATELET COUNT 181 TH/MM3 (150-450); RED BLOOD COUNT 3.38 MIL/MM3 (4.50-5.90); RED CELL DISTRIBUTION WIDTH 20.3 % (11.6-17.2); WHITE BLOOD COUNT 4.2 TH/MM3 (4.0-11.0)
[2017-10-13 07:45] VITALS: BP 123/58; PULSE 76; RESP 18; TEMP 97.5; O2SAT 96
[2017-10-13] MEDS: SODIUM CHLORIDE 0.9% FLUSH 10 ML FLUSH IV FLUSH SCH ×2 (09:00→21:00)
[2017-10-13] MEDS: FAMOTIDINE 20 MG TAB PO SCH ×2 (09:11→21:27)
[2017-10-13] MEDS: PANTOPRAZOLE SOD 40 MG DELAYED RELEASE TAB PO SCH (09:12)
[2017-10-13] MEDS: SEVELAMER CARBONATE 800 MG TAB PO SCH ×3 (09:13→17:00)
[2017-10-13] MEDS: HYDROCORTISONE 10 MG TAB PO SCH ×2 (09:13→21:27)
[2017-10-13] MEDS: FLUDROCORTISONE ACETATE 0.1 MG TAB PO SCH (09:14)
[2017-10-13] MEDS: ALPRAZolam 1 MG TAB PO SCH ×2 (09:14→21:27)
--- NOTE | 2017-10-13 10:01 | HHI.PR ---
Subjective Remarks In the wheelchair, appears in nad. No fever or chills. Wants to go home. No fever or chills. No n/v/d/c. Denies chest pain or sob. Objective Vitals Vital Signs Date Time Temp Pulse Resp B/P (MAP) Pulse Ox O2 Delivery O2 Flow Rate FiO2 10/13/17 07:45 97.5 76 18 123/58 (79) 96 10/13/17 04:00 98.5 77 20 121/74 (90) 95 10/13/17 00:08 98.9 84 18 112/56 (74) 94 10/12/17 20:00 97.6 84 22 128/63 (84) 96 10/12/17 11:38 97.6 72 20 186/94 (124) 98 I/O 10/12/17 10/12/17 10/12/17 10/13/17 10/13/17 10/13/17 07:00 15:00 23:00 07:00 15:00 23:00 Intake Total 114 ml Output Total 4000 ml Balance 114 ml -4000 ml IV Total 114 ml Hemodialysis 4000 ml # Voids 0 Result Diagram: 10/13/17 0557 Objective Remarks GENERAL: Middle-aged black male, sitting in bed, awake, no acute distress - eating breakfast. CARDIOVASCULAR: Regular rate and rhythm. RESPIRATORY: No accessory muscle use. Clear to auscultation. Breath sounds equal bilaterally. GASTROINTESTINAL: Abdomen soft, non-tender, nondistended. Hepatic and splenic margins not palpable. MUSCULOSKELETAL: Extremities without clubbing, cyanosis, or edema. No obvious deformities. NEUROLOGICAL: Awake and alert. No obvious cranial nerve deficits. Motor grossly within normal limits. Five out of 5 muscle strength in the arms and legs. Normal speech. PSYCHIATRIC: Appropriate mood and affect; insight and judgment normal. A/P Problem List: (1) Primary adrenal insufficiency ICD Code: E27.1 - Primary adrenocortical insufficiency Status: Chronic Assessment and Plan Mr. Mercado is a 47 y/o male with a history of end-stage renal disease on hemodialysis, SLE, CAD, COPD/asthma, multiple DVTs, multiple PEs, bilateral BKA , and anxiety who was transferred back to [place] after undergoing endocrinology evaluation at [facility] in [place] from 09/14 until 09/23 following a lengthy hospitalization here from 08/12-09/14. The patient was experiencing hypoglycemia during his hospitalization here that was persistent despite treatment with D10W. He was found to have primary adrenal insufficiency , a right UE DVT, and a left arm abscess in AC s/p I and D now - all while at [facility]. He is transferred back to [facility] for continued medical management. He is currently still inpatient due to a suspected GI bleed. Odynophagia - 2/2 endoscopy - should be self-limited, expect to get better with time, we'll transition to a soft mechanical diet with some cepacol until pt can tolerate more advanced diet Acute Anemia underlying Anemia of CKD S/P Upper GI bleed with esophageal varices now status post banding - h/h holding stable - Continue Protonix - To avoid NSAIDs - Colonoscopy showing hemorrhoids RUE DVT right lower lobe thrombus SVC thrombosis right atrial thrombus History of multiple DVTs/PE - heme following; see above - bridging with coumadin, monitoring INR INR is therapeutic will DC heparin drip, monitor INR Klebsiella Sepsis- Left AC abscess s/p I and D- wound edges clean- with decrease swelling - wound care nurse ff - appreciate recommendations - continue Ivanz 500 mg qday till 10/23 per ID - infectious disease specialist ff-per ID till 10/23 - repeat blood cultures negative Primary Adrenal Insufficiency - ACTH elevated per records from [facility] - Florinef 0.1 mg p.o. qday - Hydrocortisone 15 mg q a.m. and 5 mg q pm - will need outpatient endocrinology f/u - good BS readings Hypertension- cozaar daily ESRD on HD -- Chronic anxiety - continue Xanax 1 mg p.o. BID SLE positive per records review - not on any rn long term care medication for SLE Bilateral BKA - PT consult per patient was in the course of evaluation for prosthesis when acute medical problems came up DVT prophylaxis - SCDs/TEDs PT/OT -for deconditioning Discharge disposition. Now patient is medically stable in regards to GI bleed. Outpt IV abx arranged. Continue Ivanz 500 mg qday till 10/23 per ID ff. Working on outpatient dialysis arrangements. Will need to have close f/u with endocrinology as outpt for his primary adrenal insufficiency as he does require daily steroids. Follow-up INR to therapeutic range of 2-3. DC heparin 10/12/16 as therapeutic INR. Continue to monitor INR Yasmin Hernandez MD Oct 13, 2017 10:01
[2017-10-13 12:09] VITALS: BP 168/83; PULSE 77; RESP 18; O2SAT 92
--- NOTE | 2017-10-13 12:31 | HHI.FF ---
Infusion Therapy Location of Infusion Therapy: Dialysis Center Patient Information Patient Weight 102 kg Diagnosis: Diagnosis Kleb ESBL sepsis Coded Allergies: iodine (Unverified Allergy, Severe, blisters, 08/12/17) morphine (Unverified Allergy, Severe, Itching, 08/12/17) potassium iodide (Unverified Allergy, Severe, blisters, 08/12/17) povidone-iodine (Unverified Allergy, Severe, blisters, 08/12/17) sodium iodide (Unverified Allergy, Severe, blisters, 08/12/17) sodium iodide (Unverified Allergy, Severe, blisters, 08/12/17) Administer Medication Ertapenem 1 gram IV q 48 hours w/Hemodialysis M,W,F Stop Treatment: Oct 23, 2017 Additional Information Venous access: Other (AVF) Additional Instructions [x] Peripheral flush and dressing changes per protocol [x] Implanted port and central service line layer: * Implanted port: 10 ml Normal Saline followed by 5 ml Heparin 100 units/ml Heparin flush after each use and monthly to maintain. [] May leave port accessed during therapy. [] May leave peripheral site accessed for duration of therapy. [x] If patient has SOB or respiratory distress, check oxygen saturation. If less than 90% or clinical signs of respiratory distress, administer oxygen at 2 L/min. via nasal cannula and notify physician. [x] Anaphylaxis/Reaction orders: * Stop infusion. * Keep IV line open with saline flush. * Notify physician. * Monitor vital signs every 15 minutes until symptoms resolve. * Check Oxygen saturation; Oxygen at 2 L/min. via nasal cannula if less than 90% or clinical signs of respiratory distress. * Administer diphenhydramine (Benadryl) 25 mg IV STAT, (unless patient has received as pre-med). May repeat once, if necessary. * Solu-Cortef 250 mg IVP over 30-60 seconds, use 100 mg vials for each dissolution. * Epinephrine (1mg/1 ml) 0.3 mg subcutaneously or IVP now with any signs of respiratory distress. * Check with physician for new additional pre-med orders if patient is re- challenged or re-treated. [x] May remove PICC line when treatment complete, after confirming with Physician. [x] If the patient is admitted to the hospital, the ED, or transferred via [facility] , complete transfer form including medication reconciliation order sheet. Louann Barney MD Oct 13, 2017 12:31
--- NOTE | 2017-10-13 12:33 | HHI.IDPN ---
Note Infectious Disease Note ID Asked by RN to address his IV Abx Patient is on Invanz to finish Oct 23 I will switch him to Invanz 1 gm IV with HD and complete Rx Will ask CM to arrange this with his HD center Will need to remove central line in his groin I filled out Abx form D/W CM D/W Louann Hart MD Oct 13, 2017 12:33
[2017-10-13 15:46] VITALS: BP 158/68; PULSE 72; RESP 18; TEMP 97.6; O2SAT 94
[2017-10-13 15:58] LABS: INTERNATIONAL NORMALIZED RATIO 2.6 RATIO; PROTHROMBIN TIME - PATIENT 25.8 SEC (9.8-11.6)
[2017-10-13] MEDS ORDERED: WARFARIN SOD 3 MG TAB PO ONE (17:00)
[2017-10-13] MEDS ORDERED: WARFARIN SOD 4 MG TAB PO ONE (17:00)
[2017-10-13] MEDS: ERTAPENEM IV SCH (17:02)
[2017-10-13] MEDS: SODIUM CHLORIDE 0.9% IV SCH (17:02)
[2017-10-13 20:00] VITALS: BP 130/60; PULSE 83; RESP 18; TEMP 98.2; O2SAT 93
[2017-10-13] MEDS: ACETAMINOPHEN/HYDROcodone 325 MG/5 MG TAB PO PRN (21:36)
[2017-10-14] VITALS: BP 169/74; PULSE 82; RESP 18; TEMP 97.8; O2SAT 92
[2017-10-14 04:00] VITALS: BP 154/70; PULSE 63; RESP 18; TEMP 97.8; O2SAT 100
[2017-10-14] MEDS: LOSARTAN 25 MG TAB PO SCH (07:00)
[2017-10-14 08:00] VITALS: BP 160/81; PULSE 80; RESP 18; TEMP 98.2; O2SAT 91
[2017-10-14] MEDS: SEVELAMER CARBONATE 800 MG TAB PO SCH ×3 (08:00→17:00)
[2017-10-14 08:15] LABS: HEMATOCRIT 30.9 % (39.0-51.0); HEMOGLOBIN 10.2 GM/DL (13.0-17.0); MEAN CELL VOLUME 90.5 FL (80.0-100.0); MEAN CORPUSCULAR HEMOGLOBIN 29.8 PG (27.0-34.0); PLATELET COUNT 187 TH/MM3 (150-450); RED BLOOD COUNT 3.41 MIL/MM3 (4.50-5.90); RED CELL DISTRIBUTION WIDTH 19.9 % (11.6-17.2); WHITE BLOOD COUNT 4.4 TH/MM3 (4.0-11.0)
[2017-10-14 08:24] LABS: INTERNATIONAL NORMALIZED RATIO 2.6 RATIO; PROTHROMBIN TIME - PATIENT 26.7 SEC (9.8-11.6)
[2017-10-14] MEDS: ALPRAZolam 1 MG TAB PO SCH ×2 (09:00→21:51)
[2017-10-14] MEDS: FAMOTIDINE 20 MG TAB PO SCH ×2 (09:00→21:51)
[2017-10-14] MEDS: SODIUM CHLORIDE 0.9% FLUSH 10 ML FLUSH IV FLUSH SCH ×2 (09:00→21:00)
[2017-10-14] MEDS: PANTOPRAZOLE SOD 40 MG DELAYED RELEASE TAB PO SCH (09:00)
[2017-10-14] MEDS: HYDROCORTISONE 10 MG TAB PO SCH ×2 (09:16→21:51)
[2017-10-14] MEDS: FLUDROCORTISONE ACETATE 0.1 MG TAB PO SCH (09:20)
--- NOTE | 2017-10-14 12:45 | HHI.PR ---
Subjective Remarks Went for HD. No events overnight. Denies chest pain or sob. No n/v/d/c. Was noted with low BS in the morning ate and repeat BS is controlled Objective Vitals Vital Signs Date Time Temp Pulse Resp B/P (MAP) Pulse Ox O2 Delivery O2 Flow Rate FiO2 10/14/17 08:00 98.2 80 18 160/81 (107) 91 10/14/17 04:00 97.8 63 18 154/70 (98) 100 10/14/17 00:00 97.8 82 18 169/74 (105) 92 10/13/17 20:00 98.2 83 18 130/60 (83) 93 10/13/17 15:46 97.6 72 18 158/68 (98) 94 I/O 10/13/17 10/13/17 10/13/17 10/14/17 10/14/17 10/14/17 06:59 14:59 22:59 06:59 14:59 22:59 Intake Total 770 ml Balance 770 ml Intake Oral 720 ml IV Total 50 ml # Voids 0 0 0 0 # Bowel Movements 1 0 0 Result Diagram: 10/14/17 0800 Objective Remarks GENERAL: Middle-aged black male, sitting in bed, awake, no acute distress - eating breakfast. CARDIOVASCULAR: Regular rate and rhythm. RESPIRATORY: No accessory muscle use. Clear to auscultation. Breath sounds equal bilaterally. GASTROINTESTINAL: Abdomen soft, non-tender, nondistended. Hepatic and splenic margins not palpable. MUSCULOSKELETAL: Extremities without clubbing, cyanosis, or edema. No obvious deformities. NEUROLOGICAL: Awake and alert. No obvious cranial nerve deficits. Motor grossly within normal limits. Five out of 5 muscle strength in the arms and legs. Normal speech. PSYCHIATRIC: Appropriate mood and affect; insight and judgment normal. A/P Problem List: (1) Primary adrenal insufficiency ICD Code: E27.1 - Primary adrenocortical insufficiency Status: Chronic Assessment and Plan Mr. Mercado is a 47 y/o male with a history of end-stage renal disease on hemodialysis, SLE, CAD, COPD/asthma, multiple DVTs, multiple PEs, bilateral BKA , and anxiety who was transferred back to [place] after undergoing endocrinology evaluation at [facility] in [place] from 09/14 until 09/23 following a lengthy hospitalization here from 08/12-12/6. The patient was experiencing hypoglycemia during his hospitalization here that was persistent despite treatment with D10W. He was found to have primary adrenal insufficiency , a right UE DVT, and a left arm abscess in AC s/p I and D now - all while at [facility]. He is transferred back to [facility] for continued medical management. He is currently still inpatient due to a suspected GI bleed. Odynophagia - 2/2 endoscopy - should be self-limited, expect to get better with time, we'll transition to a soft mechanical diet with some cepacol until pt can tolerate more advanced diet Acute Anemia underlying Anemia of CKD S/P Upper GI bleed with esophageal varices now status post banding - h/h holding stable - Continue Protonix - To avoid NSAIDs - Colonoscopy showing hemorrhoids RUE DVT right lower lobe thrombus SVC thrombosis right atrial thrombus History of multiple DVTs/PE - heme following; see above - bridging with coumadin, monitoring INR INR is therapeutic will DC heparin drip, monitor INR Klebsiella Sepsis- Left AC abscess s/p I and D- wound edges clean- with decrease swelling - wound care nurse ff - appreciate recommendations - continue Ivanz 500 mg qday till 10/23 per ID - infectious disease specialist ff-per ID till 10/23 - repeat blood cultures negative Primary Adrenal Insufficiency - ACTH elevated per records from [facility] - Florinef 0.1 mg p.o. qday - Hydrocortisone 15 mg q a.m. and 5 mg q pm - will need outpatient endocrinology f/u - good BS readings Hypertension- cozaar daily ESRD on HD -- Chronic anxiety - continue Xanax 1 mg p.o. BID SLE positive per records review - not on any termite inspector medication for SLE Hypoglycemia: Add hypoglycemic protocol. Bilateral BKA - PT consult per patient was in the course of evaluation for prosthesis when acute medical problems came up DVT prophylaxis - SCDs/TEDs PT/OT -for deconditioning Discharge disposition. Now patient is medically stable in regards to GI bleed. Outpt IV abx arranged. Continue Ivanz 500 mg qday till 10/23 per ID ff. Working on outpatient dialysis arrangements. Will need to have close f/u with endocrinology as outpt for his primary adrenal insufficiency as he does require daily steroids. Follow-up INR to therapeutic range of 2-3. DC heparin 10/12/16 as therapeutic INR. Continue to monitor INR Yasmin Hernandez MD Oct 14, 2017 12:45
[2017-10-14] MEDS: EPOETIN ALFA 10,000 UNITS/ML VIAL IV PUSH PRN (13:00)
[2017-10-14] MEDS ORDERED: GLUCAGON 1 MG/ML VIAL OTHER PRN (14:45)
[2017-10-14] MEDS ORDERED: DEXTROSE 50% IN WATER 50 ML VIAL(D50) IV PUSH PRN (14:45)
--- NOTE | 2017-10-14 15:27 | HHI.NPPN ---
Subjective History of Present Illness 47-year-old male with history of multiple medical problems including end-stage renal disease, hypertension, DVTs, multiple failed dialysis access disease but now is a functional AV dialysis fistula who was recently hostile eyes at this institution noted to have persisting hypoglycemia relative hypotension who is referred to [facility] in [place] for further evaluation by endocrinology. Patient apparently diagnosed as having primary hypoaldosteronism and has been started on Florinef as well as hydrocortisone by mouth. Also underwent incision and drainage of an infected hematoma of the left upper extremity. Patient has been transferred back to this institution. Interval History Pt seen during HD No complaints (Gladis Cole) Review of Systems General Constitutional: Fatigue (Gladis Cole) Objective Data Data 10/14/17 10/15/17 19:00 07:00 Output Total 4000 ml Balance -4000 ml Hemodialysis 4000 ml Vital Signs Date Time Temp Pulse Resp B/P (MAP) Pulse Ox O2 Delivery O2 Flow Rate FiO2 10/14/17 08:00 98.2 80 18 160/81 (107) 91 10/14/17 04:00 97.8 63 18 154/70 (98) 100 10/14/17 00:00 97.8 82 18 169/74 (105) 92 10/13/17 20:00 98.2 83 18 130/60 (83) 93 10/13/17 15:46 97.6 72 18 158/68 (98) 94 (Gladis Cole) -: 10/14/17 0800 Medication Review Current Medications Medications (Trade) Dose Ordered Sig/Nohelia Route Start Time Stop Time Status Last Admin (NS Flush) 2 ml UNSCH PRN IV FLUSH 09/23/17 23:15 (NS Flush) 2 ml BID IV FLUSH 09/24/17 09:00 10/13/17 21:00 (Tylenol) 650 mg Q4H PRN PO 09/23/17 23:15 (Zofran Inj) 4 mg Q6H PRN IVP 09/23/17 23:15 10/06/17 13:53 (Narcan Inj) 0.4 mg UNSCH PRN IV PUSH 09/23/17 23:15 Miscellaneous Information 1 Q361D XX 09/23/17 23:15 09/23/17 23:15 ([place] 5-325 Mg) 1 tab Q4H PRN PO 09/24/17 00:30 10/13/17 21:36 (Xanax) 1 mg Q12HR PO 09/24/17 09:00 10/13/17 21:27 (Florinef) 0.1 mg DAILY PO 09/24/17 09:00 10/14/17 09:20 (Protonix) 40 mg DAILY PO 09/24/17 09:00 10/13/17 09:12 (Renvela) 2,400 mg TIDAC PO 09/24/17 08:00 10/13/17 17:00 (Proair Hfa Inh) 2 puff Q6H PRN INH 09/24/17 00:30 09/30/17 14:08 (Pill Splitter) 1 ea UNSCH PRN OTHER 09/24/17 00:45 (Pepcid) 10 mg BID PO 09/24/17 21:00 10/13/17 21:27 Ertapenem 500 mg/ Sodium Chloride 50 ml @ 200 mls/hr Q24H IV 09/25/17 18:00 10/23/17 23:00 10/13/17 17:02 (Cortef) 15 mg DAILY PO 09/26/17 09:00 10/14/17 09:16 (Cortef) 5 mg DAILY@2000 PO 09/25/17 20:00 10/13/17 21:27 Sodium Chloride 1,000 ml @ 0 mls/hr Q0M PRN OTHER 09/25/17 15:30 10/05/17 12:00 Sodium Chloride 1,000 ml @ 200 mls/hr Q5H PRN IV 09/25/17 15:30 Sodium Chloride 1,000 ml @ 0 mls/hr Q0M PRN OTHER 09/25/17 15:30 (Mannitol Inj) 12.5 gm UNSCH PRN IV 09/25/17 15:30 Albumin Human 100 ml @ 60 mls/hr UNSCH PRN IV 09/25/17 15:30 (NS Flush) 5 ml UNSCH PRN IV FLUSH 09/25/17 15:30 (Zofran Inj) 4 mg UNSCH PRN IV PUSH 09/25/17 15:30 10/07/17 17:22 (Tylenol) 650 mg UNSCH PRN PO 09/25/17 15:30 (Benadryl) 25 mg UNSCH PRN PO 09/25/17 15:30 (Nitrostat Sl) 0.4 mg UNSCH PRN SL 09/25/17 15:30 (Catapres) 0.1 mg UNSCH PRN PO 09/25/17 15:30 (Epogen Inj) 10,000 units UNSCH PRN IV PUSH 09/25/17 15:30 10/14/17 13:00 (Gelfoam 12 Mm/7 Mm Top) 1 foam UNSCH PRN TOP 09/25/17 15:30 10/07/17 17:22 (Cozaar) 25 mg DAILY@0700 PO 09/27/17 07:00 10/13/17 06:00 (Tylenol) 650 mg Q4H PRN PO 09/28/17 12:00 (Benadryl) 25 mg Q4H PRN PO 09/28/17 12:00 Pharmacy Profile Note 0 ml @ 0 mls/hr UNSCH OTHER 10/08/17 10:00 (Cepacol Extra Margarita (Sugar Free)) 1 lozenge Q4HR PRN BUCCAL 10/09/17 18:15 (Coumadin) 3 mg DAILY@1600 PO 10/14/17 16:00 (D50w (Vial) Inj) 50 ml UNSCH PRN IV PUSH 10/14/17 14:45 (Glucagon Inj) 1 mg UNSCH PRN OTHER 10/14/17 14:45 (Gladis Cole) Physical Exam General Appearance: Comfortable (Gladis Cole) Eyes Eye Exam: Sclera White (Gladis Cole) Pulmonary Resp Exam: Clear Bilaterally, Breath Sounds Equal, No Distress (Gladis Cole) Cardiology CV Exam: Regular, Normal Sinus Rhythm (Gladis Cole) Gastrointestinal/Abdomen GI Exam: Soft, Non-Tender (Gladis Cole) Integumentary Skin Exam: Clear, Warm (Gladis Cole) Extremeties Extremities Exam: No Edema (Gladis Cole) Neurologic Neuro Exam: Alert, Awake, Speech Clear (Gladis Cole) Psychiatric Psych Exam: Appropriate Responses (Gladis Cole) Assessment/Plan Discussed Condition With: Patient Problem List: (1) ESRD (end stage renal disease) on dialysis ICD Codes: N18.6 - End stage renal disease; Z99.2 - Dependence on renal dialysis Status: Chronic Plan: Continue HD MWF Patient has been out of the outpatient dialysis center for greater than 30 days and technically has been discharge from the facility. The dialysis facility will need authorization from the patient's insurance company to accept the patient back to the facility. There are talks about transitional dialysis until a chair opens up at a [facility] clinic. Would be ideal to have the patient transitioned while inpatient to [facility] physician. Medications should be adjusted with the patient's end-stage renal disease when indicated. Avoid gadolinium. (2) Anemia of renal disease ICD Codes: D63.1 - Anemia in chronic kidney disease Status: Chronic Plan: Continue Procrit with HD (3) Primary adrenal insufficiency ICD Codes: E27.1 - Primary adrenocortical insufficiency Status: Chronic Plan: Continue Florinef as well as Cortef as recommended by endocrinology at [facility]. (4) History of DVT (deep vein thrombosis) ICD Codes: Z86.718 - Personal history of other venous thrombosis and embolism Plan: Mgmt as per heme (5) Esophageal varices determined by endoscopy ICD Codes: I85.00 - Esophageal varices without bleeding Status: Chronic (6) Abscess of left upper extremity ICD Codes: L02.414 - Cutaneous abscess of left upper limb Status: Chronic Plan: Status post drainage at [facility]. Review of ID note says to continue Invanz until 10/23/17 (Gladis Cole) Plan Unfortunately I am not authorized by his insurance company to provide outpatient care. In preparation for discharge patient should be under the care of a leather dresser affiliated with [facility] ( which is the dialysis provider that his insurance company wishes the patient to go to) and is essentially every other leather dresser on staff at this institution except myself and Dr. Valdes . One of these other physician should be accepting physician for this patient's outpatient care prior to discharge. The exam, history, and the medical decision-making described in the above note were completed with the assistance of the BULMARO. I reviewed and agree with the findings presented. I attest that I had a [id number] encounter with the patient on the same day, and personally performed and documented my assessment and findings in the medical record. (Clarence Merlos MD) Gladis Cole Oct 14, 2017 15:27 Clarence Merlos MD Oct 15, 2017 17:28
[2017-10-14 16:00] VITALS: BP 154/81; PULSE 75; RESP 18; TEMP 98; O2SAT 96
[2017-10-14] MEDS ORDERED: WARFARIN SOD 4 MG TAB PO SCH (16:00)
[2017-10-14] MEDS: WARFARIN SOD 3 MG TAB PO SCH (16:00)
[2017-10-14] MEDS: ERTAPENEM IV SCH (17:36)
[2017-10-14] MEDS: SODIUM CHLORIDE 0.9% IV SCH (17:36)
[2017-10-14 20:00] VITALS: BP 125/65; PULSE 88; RESP 18; TEMP 98.8; O2SAT 91
[2017-10-14] MEDS: ACETAMINOPHEN/HYDROcodone 325 MG/5 MG TAB PO PRN (21:51)
[2017-10-15] VITALS: BP 123/64; PULSE 82; RESP 18; TEMP 98.3; O2SAT 92
[2017-10-15 04:00] VITALS: BP 127/68; PULSE 63; RESP 18; TEMP 98.6; O2SAT 96
[2017-10-15] MEDS: LOSARTAN 25 MG TAB PO SCH (06:09)
[2017-10-15 08:00] VITALS: BP 164/84; PULSE 72; RESP 18; TEMP 97.7; O2SAT 93
[2017-10-15] MEDS: HYDROCORTISONE 10 MG TAB PO SCH ×2 (08:52→20:42)
[2017-10-15] MEDS: SEVELAMER CARBONATE 800 MG TAB PO SCH ×3 (08:52→17:06)
[2017-10-15] MEDS: PANTOPRAZOLE SOD 40 MG DELAYED RELEASE TAB PO SCH (08:54)
[2017-10-15] MEDS: FLUDROCORTISONE ACETATE 0.1 MG TAB PO SCH (08:54)
[2017-10-15] MEDS: FAMOTIDINE 20 MG TAB PO SCH ×2 (08:54→20:41)
[2017-10-15] MEDS: ALPRAZolam 1 MG TAB PO SCH ×2 (08:54→20:41)
[2017-10-15] MEDS: SODIUM CHLORIDE 0.9% FLUSH 10 ML FLUSH IV FLUSH SCH ×2 (08:55→20:42)
[2017-10-15 10:11] LABS: INTERNATIONAL NORMALIZED RATIO 2.5 RATIO; PROTHROMBIN TIME - PATIENT 24.8 SEC (9.8-11.6)
[2017-10-15 10:23] LABS: BICARBONATE 30.1 MEQ/L (21.0-32.0); CALCIUM 9.3 MG/DL (8.5-10.1); CREATININE 8.17 MG/DL (0.60-1.30)
[2017-10-15 12:05] VITALS: BP 109/55; PULSE 70; RESP 18; TEMP 97.6; O2SAT 94
--- NOTE | 2017-10-15 15:33 | HHI.PR ---
Subjective Remarks Follow up DVT, ESRD. The patient has no complaints at this time. Denies chest pain, dyspnea, nausea, vomiting. Wants to go home. Objective Vitals Vital Signs Date Time Temp Pulse Resp B/P (MAP) Pulse Ox O2 Delivery O2 Flow Rate FiO2 10/15/17 12:05 97.6 70 18 109/55 (73) 94 10/15/17 08:00 97.7 72 18 164/84 (110) 93 10/15/17 04:00 98.6 63 18 127/68 (87) 96 10/15/17 00:00 98.3 82 18 123/64 (83) 92 10/14/17 20:00 98.8 88 18 125/65 (85) 91 10/14/17 16:00 98.0 75 18 154/81 (105) 96 I/O 10/14/17 10/14/17 10/14/17 10/15/17 10/15/17 10/15/17 07:00 15:00 23:00 07:00 15:00 23:00 Output Total 4000 ml Balance -4000 ml Hemodialysis 4000 ml # Voids 0 0 # Bowel Movements 0 0 Result Diagram: 10/14/17 0800 10/15/17 0950 Objective Remarks General: No acute distress. Heart: Regular rate and rhythm. No murmur. Lungs: Clear to auscultation bilaterally. No wheezes, rales, or rhonchi. Breathing is nonlabored. Abdomen: Soft, nontender, nondistended. Extremities: No lower extremity edema. Psych: Alert and oriented. Urinary Catheter: No Vascular Central Line Catheter: No A/P Problem List: (1) Primary adrenal insufficiency ICD Code: E27.1 - Primary adrenocortical insufficiency Status: Chronic Assessment and Plan 1. GI bleed: No active bleeding. Esophageal varices are status post banding. H& H are stable. Continue PPI. Avoid NSAIDs. 2. ESRD: On hemodialysis Tuesday/Tuesday/Tuesday per nephrology. Awaiting arrangement of outpatient dialysis. 3. Right upper extremity DVT, history of right atrial thrombus: Patient has history of multiple DVTs, PE. Appreciate hematology recommendations. INR is therapeutic on Coumadin. 4. Sepsis secondary to left arm abscess: Status post incision and drainage. Wound culture growing Klebsiella. Continue Invanz 500 mg daily until 10/23/17 per infectious disease. Repeat blood cultures are negative. 5. Primary adrenal insufficiency: Diagnosed at [facility]. Continue Florinef, hydrocortisone. Follow-up as outpatient with endocrinology. 6. Hypertension: Continue Cozaar. 7. Chronic anxiety: Continue Xanax. 8. 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 9. Hypoglycemia: Monitor glucose. 10. DVT prophylaxis: Coumadin. Discharge Planning Plan for discharge once outpatient hemodialysis is arranged. Ry Dodson MD Oct 15, 2017 15:33
[2017-10-15 16:18] VITALS: BP 148/67; PULSE 80; RESP 18; TEMP 97.9; O2SAT 93
[2017-10-15] MEDS: WARFARIN SOD 3 MG TAB PO SCH (17:06)
[2017-10-15] MEDS: SODIUM CHLORIDE 0.9% IV SCH (17:06)
[2017-10-15] MEDS: ERTAPENEM IV SCH (17:06)
[2017-10-15 20:00] VITALS: BP 119/66; PULSE 78; RESP 20; TEMP 97.6; O2SAT 91
[2017-10-16 00:30] VITALS: BP 144/65; PULSE 78; RESP 18; TEMP 98.4; O2SAT 95
[2017-10-16 05:10] VITALS: BP 100/66; PULSE 78; RESP 18; TEMP 98.7; O2SAT 96
[2017-10-16] MEDS ORDERED: ALTEPLASE RECOMBINANT 2 MG VIAL INTRACATH ONE ×2 (05:15)
[2017-10-16] MEDS: LOSARTAN 25 MG TAB PO SCH (06:25)
[2017-10-16 07:09] LABS: HEMATOCRIT 29.8 % (39.0-51.0); HEMOGLOBIN 9.9 GM/DL (13.0-17.0); MEAN CELL VOLUME 90.6 FL (80.0-100.0); MEAN CORPUSCULAR HEMOGLOBIN 29.9 PG (27.0-34.0); MEAN CORPUSCULAR HGB CONC 33.1 % (32.0-36.0); MEAN PLATELET VOLUME 8.2 FL (7.0-11.0); PLATELET COUNT 185 TH/MM3 (150-450); RED BLOOD COUNT 3.29 MIL/MM3 (4.50-5.90); RED CELL DISTRIBUTION WIDTH 19.4 % (11.6-17.2); WHITE BLOOD COUNT 4.2 TH/MM3 (4.0-11.0)
[2017-10-16 07:14] LABS: INTERNATIONAL NORMALIZED RATIO 2.4 RATIO; PROTHROMBIN TIME - PATIENT 24.4 SEC (9.8-11.6)
[2017-10-16 08:22] VITALS: BP 150/78; PULSE 82; RESP 20; TEMP 98.3; O2SAT 93
[2017-10-16] MEDS: SEVELAMER CARBONATE 800 MG TAB PO SCH ×3 (08:54→18:02)
[2017-10-16] MEDS: FAMOTIDINE 20 MG TAB PO SCH ×2 (08:55→20:07)
[2017-10-16] MEDS: ALPRAZolam 1 MG TAB PO SCH ×2 (08:55→20:07)
[2017-10-16] MEDS: PANTOPRAZOLE SOD 40 MG DELAYED RELEASE TAB PO SCH (08:55)
[2017-10-16] MEDS: HYDROCORTISONE 10 MG TAB PO SCH ×2 (08:55→20:07)
[2017-10-16] MEDS: FLUDROCORTISONE ACETATE 0.1 MG TAB PO SCH (08:55)
[2017-10-16] MEDS: SODIUM CHLORIDE 0.9% FLUSH 10 ML FLUSH IV FLUSH SCH ×2 (08:59→20:07)
[2017-10-16 12:42] VITALS: BP 126/58; PULSE 75; RESP 20; TEMP 98.2; O2SAT 94
--- NOTE | 2017-10-16 13:52 | HHI.PR ---
Subjective Remarks Follow up ESRD. Patient seen in the hallway in a wheelchair. He has no complaints at this time. Wants to go home. Objective Vitals Vital Signs Date Time Temp Pulse Resp B/P (MAP) Pulse Ox O2 Delivery O2 Flow Rate FiO2 10/16/17 12:42 98.2 75 20 126/58 (80) 94 10/16/17 08:22 98.3 82 20 150/78 (102) 93 10/16/17 05:10 98.7 78 18 100/66 (77) 96 10/16/17 00:30 98.4 78 18 144/65 (91) 95 10/15/17 20:00 97.6 78 20 119/66 (83) 91 10/15/17 16:18 97.9 80 18 148/67 (94) 93 I/O 10/15/17 10/15/17 10/15/17 10/16/17 10/16/17 10/16/17 06:59 14:59 22:59 06:59 14:59 22:59 Intake Total 480 ml 240 ml Balance 480 ml 240 ml Intake Oral 480 ml 240 ml # Voids 0 # Bowel Movements 0 Result Diagram: 10/16/17 0620 10/15/17 0950 Objective Remarks General: No acute distress. In wheelchair. Heart: Regular rate and rhythm. No murmur. Lungs: Clear to auscultation bilaterally. No wheezes, rales, or rhonchi. Breathing is nonlabored. Abdomen: Soft, nontender, nondistended. Extremities: No lower extremity edema. Psych: Alert and oriented. Urinary Catheter: No Vascular Central Line Catheter: No A/P Problem List: (1) Primary adrenal insufficiency ICD Code: E27.1 - Primary adrenocortical insufficiency Status: Chronic Assessment and Plan 10/16/17 No change. Awaiting outpatient dialysis arrangements. 1. GI bleed: No active bleeding. Esophageal varices are status post banding. H& H are stable. Continue PPI. Avoid NSAIDs. 2. ESRD: On hemodialysis Tuesday/Tuesday/Tuesday per nephrology. Awaiting arrangement of outpatient dialysis. 3. Right upper extremity DVT, history of right atrial thrombus: Patient has history of multiple DVTs, PE. Appreciate hematology recommendations. INR is therapeutic on Coumadin. 4. Sepsis secondary to left arm abscess: Status post incision and drainage. Wound culture growing Klebsiella. Continue Invanz 500 mg daily until 10/23/17 per infectious disease. Repeat blood cultures are negative. 5. Primary adrenal insufficiency: Diagnosed at [facility]. Continue Florinef, hydrocortisone. Follow-up as outpatient with endocrinology. 6. Hypertension: Continue Cozaar. 7. Chronic anxiety: Continue Xanax. 8. 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 9. Hypoglycemia: Monitor glucose. 10. DVT prophylaxis: Coumadin. Discharge Planning Plan for discharge once outpatient hemodialysis is arranged. Ry Dodson MD Oct 16, 2017 13:52
[2017-10-16 16:38] VITALS: BP 179/68; PULSE 79; RESP 20; TEMP 98.2; O2SAT 94
[2017-10-16] MEDS: WARFARIN SOD 3 MG TAB PO SCH (18:03)
[2017-10-16] MEDS: SODIUM CHLORIDE 0.9% IV SCH (18:24)
[2017-10-16] MEDS: ERTAPENEM IV SCH (18:24)
[2017-10-16 20:00] VITALS: BP 140/61; PULSE 72; RESP 18; TEMP 97.6; O2SAT 93
[2017-10-17 01:09] VITALS: BP 136/74; PULSE 73; RESP 17; TEMP 98.9; O2SAT 98
[2017-10-17 04:28] LABS: HEMATOCRIT 30.7 % (39.0-51.0); HEMOGLOBIN 9.9 GM/DL (13.0-17.0); MEAN CELL VOLUME 90.7 FL (80.0-100.0); MEAN CORPUSCULAR HEMOGLOBIN 29.1 PG (27.0-34.0); MEAN CORPUSCULAR HGB CONC 32.1 % (32.0-36.0); MEAN PLATELET VOLUME 8.2 FL (7.0-11.0); PLATELET COUNT 211 TH/MM3 (150-450); RED BLOOD COUNT 3.39 MIL/MM3 (4.50-5.90); RED CELL DISTRIBUTION WIDTH 19.1 % (11.6-17.2); WHITE BLOOD COUNT 4.7 TH/MM3 (4.0-11.0)
[2017-10-17 04:37] LABS: INTERNATIONAL NORMALIZED RATIO 2.7 RATIO; PROTHROMBIN TIME - PATIENT 27.6 SEC (9.8-11.6)
[2017-10-17 05:16] VITALS: BP 148/78; PULSE 63; RESP 17; TEMP 98.6; O2SAT 98
[2017-10-17] MEDS: LOSARTAN 25 MG TAB PO SCH (06:26)
[2017-10-17] MEDS: SEVELAMER CARBONATE 800 MG TAB PO SCH ×3 (08:00→17:33)
[2017-10-17 08:12] VITALS: BP 180/83; PULSE 72; RESP 17; TEMP 98.4
[2017-10-17] MEDS: GELATIN 12 MM/7 MM FOAM TOP PRN (10:04)
[2017-10-17] MEDS: EPOETIN ALFA 10,000 UNITS/ML VIAL IV PUSH PRN (10:04)
--- NOTE | 2017-10-17 11:03 | HHI.NPPN ---
Subjective History of Present Illness 47-year-old male with history of multiple medical problems including end-stage renal disease, hypertension, DVTs, multiple failed dialysis access disease but now is a functional AV dialysis fistula who was recently hospitalized at this institution noted to have persisting hypoglycemia relative hypotension who is referred to [facility] in [address] for further evaluation by endocrinology. Patient apparently diagnosed as having primary hypoaldosteronism and has been started on Florinef as well as hydrocortisone by mouth. Also underwent incision and drainage of an infected hematoma of the left upper extremity. Patient has been transferred back to this institution. Interval History Patient seen during dialysis today. No verbal complaints. Review of Systems General Constitutional: Fatigue Objective Data Data 10/17/17 10/18/17 19:00 07:00 Output Total 4000 ml Balance -4000 ml Hemodialysis 4000 ml Vital Signs Date Time Temp Pulse Resp B/P (MAP) Pulse Ox O2 Delivery O2 Flow Rate FiO2 10/17/17 08:12 98.4 72 17 180/83 (115) 10/17/17 05:16 98.6 63 17 148/78 (101) 98 10/17/17 01:09 98.9 73 17 136/74 (94) 98 10/16/17 20:00 97.6 72 18 140/61 (87) 93 10/16/17 16:38 98.2 79 20 179/68 (105) 94 10/16/17 12:42 98.2 75 20 126/58 (80) 94 -: 10/17/17 0415 10/15/17 0950 Physical Exam General Appearance: Comfortable Eyes Eye Exam: Sclera White Pulmonary Resp Exam: Clear Bilaterally, Breath Sounds Equal, No Distress Cardiology CV Exam: Regular, Normal Sinus Rhythm Gastrointestinal/Abdomen GI Exam: Soft, Non-Tender Integumentary Skin Exam: Clear, Warm Extremeties Extremities Exam: No Edema Neurologic Neuro Exam: Alert, Awake, Speech Clear Psychiatric Psych Exam: Appropriate Responses Assessment/Plan Discussed Condition With: Patient Problem List: (1) ESRD (end stage renal disease) on dialysis ICD Codes: N18.6 - End stage renal disease; Z99.2 - Dependence on renal dialysis Status: Chronic Plan: Continue HD MWF Patient has been out of the outpatient dialysis center for greater than 30 days and technically has been discharge from the facility. The dialysis facility will need authorization from the patient's insurance company to accept the patient back to the facility. Unfortunately appears that he insurance company not approving dialysis at his old facility. [facility] which has multiple dialysis facilities in the area indicating that they have no chairs available for this patient. There are talks about transitional dialysis until a chair opens up at a [facility] clinic. Would be ideal to have the patient transitioned while inpatient to a [facility] dry cleaner which may help to expedite his discharge.. Medications should be adjusted with the patient's end-stage renal disease when indicated. Avoid gadolinium. (2) Anemia of renal disease ICD Codes: D63.1 - Anemia in chronic kidney disease Status: Chronic Plan: Continue Procrit with HD (3) Primary adrenal insufficiency ICD Codes: E27.1 - Primary adrenocortical insufficiency Status: Chronic Plan: Continue Florinef as well as Cortef as recommended by endocrinology at [facility]. (4) History of DVT (deep vein thrombosis) ICD Codes: Z86.718 - Personal history of other venous thrombosis and embolism Plan: Mgmt as per heme (5) Esophageal varices determined by endoscopy ICD Codes: I85.00 - Esophageal varices without bleeding Status: Chronic (6) Abscess of left upper extremity ICD Codes: L02.414 - Cutaneous abscess of left upper limb Status: Chronic Plan: Status post drainage at [facility]. Review of ID note says to continue Invanz until 10/23/17 Plan Unfortunately I am not authorized by his insurance company to provide outpatient care. In preparation for discharge patient should be under the care of a dry cleaner affiliated with [facility] ( which is the dialysis provider that his insurance company wishes the patient to go to) and is essentially every other dry cleaner on staff at this institution except myself and Dr. Valdes . One of these other physician should be accepting physician for this patient's outpatient care prior to discharge. The exam, history, and the medical decision-making described in the above note were completed with the assistance of the BULMARO. I reviewed and agree with the findings presented. I attest that I had a [id number] encounter with the patient on the same day, and personally performed and documented my assessment and findings in the medical record. Clarence Merlos MD Oct 17, 2017 11:03
[2017-10-17] MEDS: FAMOTIDINE 20 MG TAB PO SCH ×2 (12:40→20:56)
[2017-10-17] MEDS: PANTOPRAZOLE SOD 40 MG DELAYED RELEASE TAB PO SCH (12:40)
[2017-10-17] MEDS: HYDROCORTISONE 10 MG TAB PO SCH ×2 (12:40→20:57)
[2017-10-17] MEDS: ALPRAZolam 1 MG TAB PO SCH ×2 (12:40→20:57)
[2017-10-17] MEDS: FLUDROCORTISONE ACETATE 0.1 MG TAB PO SCH (12:41)
[2017-10-17] MEDS: SODIUM CHLORIDE 0.9% FLUSH 10 ML FLUSH IV FLUSH SCH ×2 (12:44→20:57)
[2017-10-17 12:54] VITALS: BP 149/70; PULSE 75; RESP 18; TEMP 97.7; O2SAT 93
--- NOTE | 2017-10-17 14:06 | HHI.PR ---
Subjective Remarks Follow up renal failure. Patient has no complaints at this time. Wants to go home. Objective Vitals Vital Signs Date Time Temp Pulse Resp B/P (MAP) Pulse Ox O2 Delivery O2 Flow Rate FiO2 10/17/17 12:54 97.7 75 18 149/70 (96) 93 10/17/17 08:12 98.4 72 17 180/83 (115) 10/17/17 05:16 98.6 63 17 148/78 (101) 98 10/17/17 01:09 98.9 73 17 136/74 (94) 98 10/16/17 20:00 97.6 72 18 140/61 (87) 93 10/16/17 16:38 98.2 79 20 179/68 (105) 94 I/O 10/16/17 10/16/17 10/16/17 10/17/17 10/17/17 10/17/17 07:00 15:00 23:00 07:00 15:00 23:00 Intake Total 240 ml 560 ml 50 ml 360 ml Output Total 4000 ml Balance 240 ml 560 ml 50 ml 360 ml -4000 ml Intake Oral 240 ml 560 ml 360 ml IV Total 50 ml Hemodialysis 4000 ml Result Diagram: 10/17/17 0415 10/15/17 0950 Objective Remarks General: No acute distress. Heart: Regular rate and rhythm. No murmur. Lungs: Clear to auscultation bilaterally. No wheezes, rales, or rhonchi. Breathing is nonlabored. Abdomen: Soft, nontender, nondistended. Extremities: Bilateral BKA. Psych: Alert and oriented. Urinary Catheter: No Vascular Central Line Catheter: No A/P Problem List: (1) Primary adrenal insufficiency ICD Code: E27.1 - Primary adrenocortical insufficiency Status: Chronic Assessment and Plan 10/17/17 No change. Awaiting outpatient dialysis arrangements. 1. GI bleed: No active bleeding. Esophageal varices are status post banding. H& H are stable. Continue PPI. Avoid NSAIDs. 2. ESRD: On hemodialysis Tuesday/Tuesday/Tuesday per nephrology. Awaiting arrangement of outpatient dialysis. 3. Right upper extremity DVT, history of right atrial thrombus: Patient has history of multiple DVTs, PE. Appreciate hematology recommendations. INR is therapeutic on Coumadin. 4. Sepsis secondary to left arm abscess: Status post incision and drainage. Wound culture growing Klebsiella. Continue Invanz 500 mg daily until 10/23/17 per infectious disease. Repeat blood cultures are negative. 5. Primary adrenal insufficiency: Diagnosed at [facility]. Continue Florinef, hydrocortisone. Follow-up as outpatient with endocrinology. 6. Hypertension: Continue Cozaar. 7. Chronic anxiety: Continue Xanax. 8. 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 9. Hypoglycemia: Monitor glucose. 10. DVT prophylaxis: Coumadin. Discharge Planning Possible discharge home today. Per case management, a dialysis bed has been arranged. We are waiting for confirmation that a puff ironer has agreed to follow him as an outpatient. Once patient has an accepting puff ironer, will discharge home. Ry Dodson MD Oct 17, 2017 14:06
[2017-10-17] MEDS ORDERED: PANT40TA3 PO (14:13)
[2017-10-17] MEDS ORDERED: COZA25TA PO (14:13)
[2017-10-17] MEDS ORDERED: COUM3TAB PO (14:13)
[2017-10-17] MEDS ORDERED: HYDRO10 PO ×2 (14:13)
[2017-10-17] MEDS ORDERED: SEVEL800 PO (14:13)
[2017-10-17] MEDS ORDERED: FLUD.1 PO (14:13)
--- NOTE | 2017-10-17 14:21 | HHI.DCPOC ---
Discharge Care Plan Diagnosis: (1) GI bleed (2) ESRD (end stage renal disease) on dialysis (3) Gastroesophageal reflux disease (4) Sepsis (5) Primary adrenal insufficiency (6) Abscess of left upper extremity Goals to Promote Your Health * To prevent worsening of your condition and complications * To maintain your health at the optimal level Directions to Meet Your Goals Take your medications as prescribed Follow your dietary instruction Follow activity as directed Keep your appointments as scheduled Take your immunizations and boosters as scheduled If your symptoms worsen call your PCP, if no PCP go to Urgent Care Center or Emergency Room Smoking is Dangerous to Your Health. Avoid second hand smoke Call the 24-hour hour crisis hotline for domestic abuse at Ry Dodson MD Oct 17, 2017 14:21
[2017-10-17] MEDS ORDERED: WARFARIN SOD 3 MG TAB PO ONE (16:00)
[2017-10-17 16:46] VITALS: BP 113/59; PULSE 76; RESP 18; TEMP 97.1; O2SAT 95
[2017-10-17] MEDS: SODIUM CHLORIDE 0.9% IV SCH (17:33)
[2017-10-17] MEDS: ERTAPENEM IV SCH (17:33)
[2017-10-17 20:30] VITALS: BP 145/63; PULSE 78; RESP 18; TEMP 97.9; O2SAT 96
[2017-10-18 00:22] VITALS: BP 139/63; PULSE 75; RESP 18; TEMP 98.4; O2SAT 96
[2017-10-18 05:00] VITALS: BP 145/70; PULSE 79; RESP 18; TEMP 98.9; O2SAT 96
[2017-10-18] MEDS: LOSARTAN 25 MG TAB PO SCH (06:03)
[2017-10-18] MEDS: SEVELAMER CARBONATE 800 MG TAB PO SCH ×2 (07:56→12:43)
[2017-10-18] MEDS: HYDROCORTISONE 10 MG TAB PO SCH (07:56)
[2017-10-18] MEDS: FAMOTIDINE 20 MG TAB PO SCH (07:56)
[2017-10-18] MEDS: ALPRAZolam 1 MG TAB PO SCH (07:57)
[2017-10-18] MEDS: PANTOPRAZOLE SOD 40 MG DELAYED RELEASE TAB PO SCH (07:57)
[2017-10-18] MEDS: FLUDROCORTISONE ACETATE 0.1 MG TAB PO SCH (08:02)
[2017-10-18] MEDS: SODIUM CHLORIDE 0.9% FLUSH 10 ML FLUSH IV FLUSH SCH (08:04)
[2017-10-18 08:05] VITALS: BP 170/92; PULSE 71; RESP 18; TEMP 98.1; O2SAT 97
[2017-10-18 11:24] LABS: HEPATITIS A AB IGM NEGATIVE (NEGATIVE); HEPATITIS B CORE AB IGM NEGATIVE (NEGATIVE); HEPATITIS B SURFACE ANTIGEN NEGATIVE (NEGATIVE); HEPATITIS C AB IgG NEGATIVE (NEGATIVE)
[2017-10-18 11:36] LABS: INTERNATIONAL NORMALIZED RATIO 2.4 RATIO; PROTHROMBIN TIME - PATIENT 24.7 SEC (9.8-11.6)
[2017-10-18 12:38] VITALS: BP 186/82; PULSE 70; RESP 18; TEMP 97.4; O2SAT 94
--- NOTE | 2017-10-18 15:28 | HHI.DS ---
Discharge Summary Admission Date Sep 23, 2017 at 23:04 Discharge Date: Oct 18, 2017 Admitting Diagnosis Primary adrenal insufficiency, Klebsiella bacteremia . (1) Primary adrenal insufficiency ICD Code: E27.1 - Primary adrenocortical insufficiency Status: Chronic Procedures 10/07/17 EGD with biopsy, band ligation of varices Brief History - From Admission Mr. Mercado is a 47 y/o male with a history of end-stage renal disease on hemodialysis, SLE, CAD, COPD/asthma, multiple DVTs, multiple PEs, bilateral BKA , and anxiety who was transferred back to [place] after undergoing endocrinology evaluation at [facility] in [place] from 09/14 until 09/23 following a lengthy hospitalization here from 08/12-09/14. The patient was experiencing hypoglycemia during his hospitalization here that was persistent despite treatment with D10W. Medical records reviewed from [facility] are summarized as follows: He underwent testing at [facility] and was found to have primary adrenal insufficiency with elevated ACTH level. He was also found to have a left antecubital abscess that was incised and drained. He was treated with IVANZ 500 mg daily and is supposed to complete treatment on 09/28/2017. He was found have nonocclusive thrombus right IJ, left subclavian vein and he was transferred on heparin drip. 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 Right upper quadrant ultrasound showed no liver cirrhosis, slightly thickened gallbladder wall which was a nonspecific finding. A transthoracic echocardiogram showed an EF of 65% with moderately elevated pulmonary artery systolic pressure. During the hospitalization here from 08/12-09/14, he was admitted for upper GI bleed and had endoscopy on 08/13 with esophageal varices banded. He suffered acute respiratory failure with intubation required on 09/02/2017. He developed GNR sepsis and his permacath was removed; it grew yeast and Corynebacterium. He was treated with Diflucan and meropenem. He completed treatment with Diflucan according to [facility] notes. Blood cultures 09/11 and 09/12 grew Klebsiella pneumoniae ESBL positive. He was followed by infectious disease specialist during that admission. The patient is seen in his room. He is complaining of 8 out of 10 left antecubital wound pain. He reports increased pain with movement and palpation on the pain is achy in nature. He states he was treated with IV fentanyl for pain at [facility] and this was effective. Previous treatment for recent staph epi and bryon sepsis; completed treatment July 11. CBC/BMP: 10/17/17 0415 10/15/17 0950 Significant Findings Laboratory Tests Test 10/16/17 06:20 10/17/17 04:15 10/17/17 18:15 10/18/17 10:59 Red Blood Count 3.29 MIL/MM3 (4.50-5.90) 3.39 MIL/MM3 (4.50-5.90) Hemoglobin 9.9 GM/DL (13.0-17.0) 9.9 GM/DL (13.0-17.0) Hematocrit 29.8 % (39.0-51.0) 30.7 % (39.0-51.0) Red Cell Distribution Width 19.4 % (11.6-17.2) 19.1 % (11.6-17.2) Prothrombin Time 24.4 SEC (9.8-11.6) 27.6 SEC (9.8-11.6) 24.7 SEC (9.8-11.6) PE at Discharge General: No acute distress. Heart: Regular rate and rhythm. No murmur. Lungs: Clear to auscultation bilaterally. No wheezes, rales, or rhonchi. Breathing is nonlabored. Abdomen: Soft, nontender, nondistended. Extremities: Bilateral BKA. Psych: Alert and oriented. Pt update on day of discharge The patient has no complaints today. He wants to go home. Arrangements have been made for outpatient dialysis. Hospital Course The patient was admitted back to [facility] following evaluation at [facility] in [place] from 09/14/17 until 09/23/17. He was treated for primary adrenal insufficiency, right upper extremity DVT, hypoglycemia. He was noted to have bacteremia with Klebsiella. Infectious disease was consulted and patient was continued on Invanz. Arrangements were made for outpatient IV antibiotics to be given during dialysis. Nephrology was consulted for management of hemodialysis. Due to insurance restrictions, the patient had to find a new outpatient dialysis center and a new audio visual tech. The patient developed upper GI bleeding. Gastroenterology was consulted. EGD was done with banding of esophageal varices. Hematology was consulted regarding history of PE and DVT as well as persistent left cephalic vein superficial thromboses. He was placed on Coumadin and INR was monitored. He continued to improve clinically throughout the hospitalization. Case management was able to make arrangements for a new outpatient dialysis center. The patient was assigned to Dr. Calderon, nephrology. He was felt to be stable for discharge home. Pt Condition on Discharge: Stable Discharge Disposition: Discharge Home Discharge Time: > 30 minutes Discharge Instructions DIET: Follow Instructions for: Renal Failure Diet Activities you can perform: Regular-No Restrictions Follow up Referrals: Nephrology - 1 Week PCP Follow-up - 1 Week New Medications: Fludrocortisone (Fludrocortisone) 0.1 Mg Tab 0.1 MG PO DAILY for Adrenal insufficiency, #30 TAB 0 Refills Hydrocortisone (Cortef) 10 Mg Tab 15 MG PO DAILY for Adrenal insufficiency, #30 TAB 0 Refills Take with food to decresae GI upset Hydrocortisone (Cortef) 10 Mg Tab 5 MG PO DAILY@2000 for Adrenal insufficiency, #30 TAB 0 Refills Take with food to decresae GI upset Losartan (Cozaar) 25 Mg Tab 25 MG PO DAILY@0700 for Blood Pressure Management, #30 TAB 0 Refills Pantoprazole (Pantoprazole) 40 Mg Tab 40 MG PO DAILY for Reflux, #30 TAB 0 Refills Sevelamer Carbonate (Renvela) 800 Mg Tab 2400 MG PO TIDAC for supplement, #90 TAB 0 Refills Warfarin (Coumadin) 3 Mg Tab 3 MG PO DAILY@1600 for Blood Clot Prevention, #30 TAB 0 Refills Continued Medications: Alprazolam (Xanax) 1 Mg Tab 1 MG PO Q8H PRN for ANXIETY, #7 TAB 0 Refills Blood-Glucose Meter (Blood Glucose Monitor) 1 Each Kit KIT for hypoglycemia, #1 0 Refills Hydrocodone/Acetaminophen (Hydrocodone-Acetamin 10-325 mg) 10 Mg-325 Mg Tablet 1 TAB PO Q4H PRN for PAIN SCALE 1 TO 10, #7 TAB Loratadine (Claritin) 10 Mg Tablet 10 MG PO HS for Allergies, #30 TAB Discontinued Medications: Dextrose 10 % in Water (Dextrose 10%-Water IV Solution) 10 % Iv.soln 30 ML IV CONTINUOUS for hypoglycemia for 7 Days, ML Fluconazole (Diflucan) 100 Mg Tab 100 MG PO DAILY for Infection, #3 TAB Fludrocortisone (Fludrocortisone) 0.1 Mg Tab 0.1 MG PO WITH DIALYSIS for adrenal insufficency, #30 TAB 0 Refills Heparin Sod,Porcine/0.9 % NaCl (Heparin 25,000 Unit/250 ml-Ns) 25,000 Unit/250 Ml (100 Unit/Ml) Iv.soln 98859 UNITS IV CONTINUOUS for Hypercoagulable state for 7 Days, UNITS Hydrocortisone (Cortef) 10 Mg Tab 10 MG PO DAILY for Adrenal insufficiency, #5 TAB Take with food to decresae GI upset Midodrine (Midodrine) 5 Mg Tab 10 MG PO TID@07,12,17 for Blood pressure, #30 TAB Pantoprazole (Pantoprazole) 40 Mg Tab 40 MG PO Q12HR for GI bleed for 30 Days, TAB 0 Refills Sennosides-Docusate Sodium (Senna Plus 8.6-50 mg) 8.6 Mg-50 Mg Tab 1 TAB PO BID for constipation, #30 TAB 0 Refills Sevelamer HCl (Renagel) 800 Mg Tab 1600 MG PO TID for Control phosphorus levels, #180 TAB 0 Refills Ry Dodson MD Oct 18, 2017 15:28
[2017-10-18 15:59] VITALS: BP 131/84; PULSE 78; RESP 18; TEMP 97.8; O2SAT 94
[2017-10-18] MEDS: WARFARIN SOD 3 MG TAB PO SCH (16:59)
== END 2017-10-18 17:03 | disposition home or self-care (01) | DRG 643 ==
LOC: HIMN 23:04 → N05B 09-29 17:20 → N05A 10-03 23:21 → N05B 10-03 23:21
PROVIDERS: ADMIT Family Medicine; ATTEND Family Medicine
PROC: 5A1D70Z Performance of Urinary Filtration, Intermittent, Less than 6 Hours Per Day (ICD-10-PCS; 2017-09-26)
PROC: 30233K1 Transfusion of Nonautologous Frozen Plasma into Peripheral Vein, Percutaneous Approach (ICD-10-PCS; 2017-10-03)
PROC: 30233N1 Transfusion of Nonautologous Red Blood Cells into Peripheral Vein, Percutaneous Approach (ICD-10-PCS; 2017-10-03)
PROC: 0DB68ZX Excision of Stomach, Via Natural or Artificial Opening Endoscopic, Diagnostic (ICD-10-PCS; 2017-10-07)
PROC: 0DJD8ZZ Inspection of Lower Intestinal Tract, Via Natural or Artificial Opening Endoscopic (ICD-10-PCS; principal; 2017-10-07 12:42)
DX: E27.1 Primary adrenocortical insufficiency (principal); N18.6 End stage renal disease; I12.0 Hypertensive chronic kidney disease with stage 5 chronic kidney disease or end stage renal disease; I85.00 Esophageal varices without bleeding; D68.59 Other primary thrombophilia; I82.621 Acute embolism and thrombosis of deep veins of right upper extremity; N25.81 Secondary hyperparathyroidism of renal origin; I80.8 Phlebitis and thrombophlebitis of other sites; I87.1 Compression of vein; I82.B12 Acute embolism and thrombosis of left subclavian vein; I82.C11 Acute embolism and thrombosis of right internal jugular vein; L03.114 Cellulitis of left upper limb; I82.612 Acute embolism and thrombosis of superficial veins of left upper extremity; L02.414 Cutaneous abscess of left upper limb; I82.210 Acute embolism and thrombosis of superior vena cava; M32.14 Glomerular disease in systemic lupus erythematosus; I51.3 Intracardiac thrombosis, not elsewhere classified; M32.9 Systemic lupus erythematosus, unspecified; Z89.511 Acquired absence of right leg below knee; Z89.512 Acquired absence of left leg below knee; Z99.2 Dependence on renal dialysis; J44.9 Chronic obstructive pulmonary disease, unspecified; I25.10 Atherosclerotic heart disease of native coronary artery without angina pectoris; F41.9 Anxiety disorder, unspecified; Z86.711 Personal history of pulmonary embolism; Z86.718 Personal history of other venous thrombosis and embolism; I73.9 Peripheral vascular disease, unspecified; K21.9 Gastro-esophageal reflux disease without esophagitis; Z95.5 Presence of coronary angioplasty implant and graft; Z87.891 Personal history of nicotine dependence; E16.2 Hypoglycemia, unspecified; B96.1 Klebsiella pneumoniae [K. pneumoniae] as the cause of diseases classified elsewhere; D63.1 Anemia in chronic kidney disease; E83.39 Other disorders of phosphorus metabolism; Z91.19 Patient's noncompliance with other medical treatment and regimen; K64.8 Other hemorrhoids; K29.60 Other gastritis without bleeding
CPT/HCPCS: 36430; 36591; 80048; 80069; 80074; 80076; 82728; 82948; 83540; 83550; 85014; 85018; 85025; 85027; 85610; 85730; 86077; 86850; 86870; 86880; 86900; 86901; 86902; 86920; 86922; 86927; 87040; 87641; 88305; 88312; 90935; 94150; 96374; 96375; J1335; J1644; J2370; J2405; J2997; J7030; P9016; P9017; Q4081